=== PATIENT | male | born 1995 | race Caucasian/White ===

== ENCOUNTER 2021-10-12 10:46 | Emergency (ER) | payer BC, SELFPAY ==
[2021-10-12 11:03] VITALS: BP 118/76; PULSE 79; RESP 17; TEMP 37; O2SAT 100; BMI 21.9
--- NOTE | 2021-10-12 11:12 | ED_ITS ---
HPI - Abdominal Pain General Chief Complaint: Back Pain/Injury Stated Complaint: PAIN,H/O TAHMINA ESOPH PER EMS Time Seen by Provider: 10/12/21 11:02 Source: patient and EMS Mode of arrival: EMS Limitations: no limitations History of Present Illness HPI narrative: 26 y/o male with history of type 1 DM diagnosed in 2017, gastroparesis, neuropathy, Gates's esophagus who presents to the ED via EMS with reports of upper abdominal pain and back pain that started last night. He states the pain is similar to when he had a Gates's flare up in the past. He reports compliance with his famotadine as well as his insulin but admits to a crappy diet. He had pizza last night. He vomited once this morning, no blood. He denies diarrhea, fevers or chills. Denies history of pancreatitis in the past. He reports his last EGD was about 1.5 years ago. He is not on a PPI. MD elicited complaint: abdominal pain Pertinent past history: other (gastroparesis and Gates's esophagus ) Onset (ago): day(s) (1) Pain Consistency: constant Location: epigastric Severity: severe Pain scale (0-10): 8 Quality: sharp Radiation: back Migration to: no migration Exacerbating factors: nothing Relieving factors: medication Context: history of similar episodes Associated symptoms: nausea and vomiting Related Data Previous Rx's Medication Instructions Recorded pantoprazole 40 mg tablet,delayed 40 mg PO DAILY #14 tab 10/12/21 release (Protonix) Allergies Allergy/AdvReac Type Severity Reaction Status Date / Time haloperidol [From Haldol] Allergy Difficulty Verified 10/12/21 11:10 Swallowing Review of Systems Review of Systems Constitutional: No Fever, No Chills ENT/Mouth: No sore throat, No Rhinorrhea, No Swallowing Difficulty Cardiovascular: No Chest Pain, No SOB, No Orthopnea, No Edema Respiratory: No Cough, No Sputum, No Wheezing, No dyspnea Gastrointestinal: + Nausea, + Vomiting, No Diarrhea, + abdominal Pain, No Hematochezia, No Melena Genitourinary: No Dysuria, No Urinary Frequency, No Hematuria Musculoskeletal: + joint pain, No Myalgias Skin: No Skin Lesions, No rash Neuro: No Weakness, No Numbness, No Dizziness, No Headache Psych: + Anxiety/Panic, No Depression Heme/Lymph: No Bruising, No Lymphadenopathy Endocrine: No Polyuria, No Polydipsia [facility] Past Medical History Medical History (Updated 10/12/21 @ 13:39 by JORDAN Camp) Gates esophagus Diabetes mellitus type 1 Social History Social History Advance Directives: No Advance Directives Information Provided: No Physical Exam ED Vital Signs: Vital Signs - 24 hr 10/12/21 11:03 Temperature 98.6 F Pulse Rate 79 Respiratory Rate 17 Blood Pressure 118/76 Pulse Oximetry 100 BMI result Body Mass Index 21.9 Appearance: Alert. Oriented X3. Appears uncomfortable. Eyes: Pupils equal, round and reactive to light. ENT: Pharynx normal. Neck: Normal inspection. Neck supple. CVS: Normal heart rate and rhythm. Pulses normal. Respiratory: No respiratory distress. Breath sounds normal. Abdomen: Normal inspection, thin, soft. Tender upper abdomen throughout. no rebound or guarding. negative garcia's sign. normal +BS x4 Skin: Skin warm and dry. Normal skin color. Normal skin turgor. No rashes. Extremities: No lower extremity edema. Neuro: Oriented X 3. No motor deficit. No sensory deficit. Course Course Course Narrative: 26 y/o male with history of DM1, Gates's esophagus presents to the ER with upper abdominal pain and vomiting that started yesterday after eating pizza. Similar to his prior Gates's flares. Glucose 96 en route. Compliant with meds and insulin. Will check basic labs including lipase and LFTs, give IVF and GI cocktail. Will reassess. Reevaluation(s) Reevaluation #1: Labs unremarkable. Patient feels better after meds. He is now tolerating PO. He has a GI doctor in [place] where he lives and agrees to follow up and make dietary modifications. Stable for d/c home - will start on PPI. Patient agrees with plan. MDM - Abdominal Pain Lab Data Result diagrams: 10/12/21 11:17 10/12/21 11:57 Labs: Lab Results 10/12/21 10/12/21 Range/Units 11:17 11:57 WBC 6.9 (4.8-10.8) X10*3/uL RBC 4.41 L (4.60-5.80) X10*6/uL Hgb 11.1 L (14.0-18.0) g/dl Hct 34.8 L (42.0-52.0) % MCV 78.9 L (80.0-98.0) fL MCH 25.2 L (27.0-33.0) pg MCHC 31.9 (31.0-36.0) g/dl RDW 14.6 (11.0-16.0) % Plt Count 229 (160-400) X10*3/uL MPV 10.0 (9.4-12.4) fL Immature Gran % (Auto) 0.1 (0.0-0.4) % Neut % (Auto) 62.7 (45-73) % Lymph % (Auto) 27.5 (20-40) % [place] % (Auto) 6.6 (2-11) % Eos % (Auto) 2.2 (0-4) % Baso % (Auto) 0.9 (0-2) % Lymph # (Auto) 1.9 (1.2-4.9) X10*3/uL [place] # (Auto) 0.5 (0.1-1.2) X10*3/uL Eos # (Auto) 0.2 (0.0-0.4) X10*3/uL Baso # (Auto) 0.1 (0.0-0.2) X10*3/uL Abs Immat Gran (auto) 0.01 (0.00-0.03) X10*3/uL Absolute Neuts (auto) 4.3 (2.0-8.3) x10*3/uL Absolute Nucleated RBC 0.000 (0.0-0.012) X10*3/uL Nucleated RBC % (auto) 0.0 (0.0-0.2) /100WBC Sodium 135 (135-145) mmol/L Potassium 3.8 (3.3-5.1) mmol/L Chloride 104 (96-108) mmol/L Carbon Dioxide 21 L (22-29) mmol/L Anion Gap 14 (12-20) BUN 12 (9-16) mg/dL Creatinine 0.69 (0.5-1.4) mg/dL Estim Creat Clear Calc 146.9 Estimated GFR > 60 Random Glucose 162 H (60-115) mg/dL Calcium 8.8 (8.4-10.2) mg/dL Magnesium 1.6 (1.6-2.6) mg/dL Total Bilirubin 0.6 (0.0-1.0) mg/dL Direct Bilirubin 0.2 (0.0-0.5) mg/dL AST 15 (5-37) U/L ALT 16 (0-40) U/L Alkaline Phosphatase 67 (39-117) U/L Total Protein 5.8 L (6.5-8.0) g/dL Albumin 3.6 (3.5-5.0) g/dL Lipase 4 L (8-78) U/L Discharge Plan Discharge Clinical Impression: Gastritis, Gates's esophagus Patient Disposition: Home, Self-Care Instructions: Diet for Stomach Ulcers and Gastritis (ED), Gates Esophagus (ED) Additional Instructions: Follow up with your GI doctor Avoid spicy and acidic foods Start the prescribed medication to help decrease the acid in your stomach. If you develop new or worsening symptoms call 911 or come back to the ER for further evaluation. Prescriptions: New pantoprazole [Protonix] 40 mg tablet,delayed release (DR/EC) 40 mg PO DAILY Qty: 14 0RF
[2021-10-12] MEDS: Omeprazole 40 MG CAPSULE.DR PO (11:22)
[2021-10-12 11:23] LABS: MANUAL DIFF FLAG NO
[2021-10-12] MEDS: Morphine Sulfate 4 MG/ML CARTRIDGE IVPUSH (11:23)
[2021-10-12] MEDS: 0.9 % Sodium Chloride 1,000 ML 999 ML IVCONT (11:24)
[2021-10-12 11:26] LABS: Basophils Absolute Auto 0.1 X10*3/uL (0.0-0.2); Basophils Percent Auto 0.9 % (0-2); Eosinophils Absolute Auto 0.2 X10*3/uL (0.0-0.4); Eosinophils Percent Auto 2.2 % (0-4); Hematocrit 34.8 % (42.0-52.0); Hemoglobin 11.1 g/dl (14.0-18.0); Imm Gran Abs Auto 0.01 X10*3/uL (0.00-0.03); Imm Gran Pct Auto 0.1 % (0.0-0.4); Lymphocytes Absolute Auto 1.9 X10*3/uL (1.2-4.9); Lymphocytes Percent Auto 27.5 % (20-40); Mean Corpuscular HGB Conc 31.9 g/dl (31.0-36.0); Mean Corpuscular Hemoglobin 25.2 pg (27.0-33.0); Mean Corpuscular Volume 78.9 fL (80.0-98.0); Monocytes Absolute Auto 0.5 X10*3/uL (0.1-1.2); Monocytes Percent Auto 6.6 % (2-11); Neutrophils Absolute Auto 4.3 x10*3/uL (2.0-8.3); Neutrophils Percent Auto 62.7 % (45-73); Platelet Count 229 X10*3/uL (160-400); Red Blood Count 4.41 X10*6/uL (4.60-5.80); Red Cell Distribution Width 14.6 % (11.0-16.0); White Blood Count 6.9 X10*3/uL (4.8-10.8)
[2021-10-12] MEDS: Lidocaine HCl Viscous 2 % 15 ML SOLUTION MUCOUS MEM (11:29)
[2021-10-12] MEDS: Magnesium Hydrox/Alum Hydrox 30 ML ORAL.SUSP PO (11:29)
[2021-10-12] MEDS: PHENobarb/Hyoscy/Atropine/Scop 10 ML ELIXIR PO (11:29)
[2021-10-12 12:26] LABS: Alanine Aminotransferase 16 U/L (0-40); Albumin Level 3.6 g/dL (3.5-5.0); Alkaline Phosphatase 67 U/L (39-117); Anion Gap 14 (12-20); Aspartate Amino Transferase 15 U/L (5-37); Bilirubin Direct 0.2 mg/dL (0.0-0.5); Bilirubin Total 0.6 mg/dL (0.0-1.0); Blood Urea Nitrogen 12 mg/dL (9-16); Calcium 8.8 mg/dL (8.4-10.2); Carbon Dioxide 21 mmol/L (22-29); Chloride 104 mmol/L (96-108); Creatinine Clr Calc Pharmacy 146.9; Estimated Glomerular Filt Rate > 60; Glucose Random 162 mg/dL (60-115); Lipase 4 U/L (8-78); Magnesium 1.6 mg/dL (1.6-2.6); Potassium 3.8 mmol/L (3.3-5.1); Sodium 135 mmol/L (135-145); Total Protein 5.8 g/dL (6.5-8.0)
[2021-10-12] MEDS: Acetaminophen 325 MG TABLET 650 MG PO (13:55)
== END 2021-10-12 13:59 | disposition home or self-care (01) ==
PROVIDERS: Physician Assistant; Emergency Provider Emergency Medicine
DX: K29.70 Gastritis, unspecified, without bleeding (principal); K22.70 Barrett's esophagus without dysplasia; E10.9 Type 1 diabetes mellitus without complications; Z79.4 Long term (current) use of insulin
CPT/HCPCS: 36415; 80048; 80076; 83690; 83735; 85025; 96361; 96374; 99283; 99284; J2270

== ENCOUNTER 2021-10-12 19:42 | Emergency (ER) | payer MEDICAID, SELFPAY | END 2021-10-12 21:37 | disposition left against medical advice (07) | LOC: HO.ED 21:32 | PROVIDERS: Emergency Provider Emergency Medicine | DX: R10.9 Unspecified abdominal pain (principal) ==

== ENCOUNTER 2022-09-29 07:28 | Emergency (ER) | payer BC, SELFPAY ==
--- NOTE | ~2022-09-29 | XR_ITS ---
EXAMINATION: XR CHEST CLINICAL INFORMATION: Acute lower chest pain. COMPARISON: 07/23/2017 chest radiographs. TECHNIQUE: Frontal view of the chest was obtained. FINDINGS: No significant abnormality is noted involving the heart, lungs, mediastinum, bony thorax or soft tissues. XR/XR chest 1V IMPRESSION: No acute cardiopulmonary process.
--- NOTE | 2022-09-29 07:35 | ED_ITS ---
HPI - General Adult General Chief complaint: Nausea/Vomiting/Diarrhea Stated complaint: N,V HYPOGLYCEMIC Time Seen by Provider: 09/29/22 07:29 Source: patient Mode of arrival: EMS Limitations: no limitations History of Present Illness HPI narrative: 27-year-old male with history of chronic back pain, Gates's esophagus presents with intractable nausea and vomiting starting today. Patient describes symptoms as severe in nature. There is no clear relieving or exacerbating features. The vomitus has been nonbloody, nonbilious in nature. Denies any fevers or chills. Symptoms are also associated with severe lower thoracic back pain radiating around to his chest which is old except worsening usual. There has been no new recent falls. Denies that the pain radiates in any way. Symptoms are worse with movement and palpation. Patient also complains of some upper abdominal pain that is associated with nausea and vomiting. The pain is aching and burning in nature. The pain does not radiate. Not associated with melanotic stools. Patient denies intravenous drug abuse although he does use marijuana. Denies alcohol abuse since the age of 23. Patient denies large doses of NSAIDs. Related Data Previous Rx's Medication Instructions Recorded pantoprazole 40 mg tablet,delayed 40 mg PO DAILY #14 tabs 10/12/21 release (Protonix) Allergies Allergy/AdvReac Type Severity Reaction Status Date / Time diphenhydramine Allergy Anaphylaxis Verified 09/29/22 08:56 [From Benadryl] haloperidol [From Haldol] Allergy Difficulty Verified 10/12/21 11:10 Swallowing Review of Systems Review of Systems: CONSTITUTIONAL: Denies weight loss, fever and chills. HEENT: Denies changes in vision and hearing. RESPIRATORY: Denies SOB and cough. CV: Denies palpitations no CP. GI: + abdominal pain, nausea, vomiting no diarrhea. : Denies dysuria and urinary frequency. MSK: Denies myalgia and joint pain. Positive back pain SKIN: Denies rash and pruritus. NEUROLOGICAL: Denies headache and syncope. PSYCHIATRIC: Denies recent changes in mood. Denies anxiety and depression. All other ROS are negative unless in HPI PMFSH Past Medical History Medical History Gates esophagus Diabetes mellitus type 1 Social History Social History Alcohol intake: current Alcohol intake frequency: holidays/special occasions o nly Smoked in Last 30 Days: Yes Use of substances other than those prescribed or required for medical reasons: Yes Substance Use Type: Marijuana Substance Use Frequency: Daily Last Used Substance: Just Prior to Admission Advance Directives: No Advance Directives Information Provided: No Physical Exam ED Vital Signs: Vital Signs - 24 hr 09/29/22 07:38 09/29/22 07:38 09/29/22 10:14 Temperature 97.8 F 97.8 F 97.6 F Pulse Rate 95 95 84 Respiratory Rate 28 H 28 H 16 Blood Pressure 129/70 129/70 112/73 Pulse Oximetry 100 100 100 Oxygen Delivery Method Room Air Room Air Room Air BMI result Body Mass Index 22.7 GEN: Well developed, + acute distress,+ alert, oriented HEENT: Normocephalic, atraumatic, normal external ears, nose appears normal, no oropharyngeal edema or exudates Eyes: Normal to appearance Neck: Supple, no lymphadenopathy Respiratory: Talks in complete sentences, no respiratory distress, clear to auscultation bilaterally Cardiovascular: Regular rate and rhythm, no murmurs rubs or gallops Abdomen: Scaphoid, nontender, nondistended, no guarding, no rebound Back: No CVA tenderness, positive thoracolumbar paraspinous tenderness Extremities: No clubbing cyanosis or edema Neurologic: No focal neurologic deficits, cranial nerves 2-12 intact, strength is 5/5 bilaterally, gait normal Skin: No rash Course Course Course Narrative: 27-year-old male presents with acute exacerbation of back pain abdominal pain associated with nausea vomiting. On arrival, patient was brought in by EMS. He was noted to be hypoglycemic. Patient received antiemetics, analgesics, dextrose. Will obtain routine laboratory analysis. Will re-evaluate patient. Reevaluation(s) Reevaluation #1: Patient's blood sugar is 40. Will give patient dextrose 50 re-evaluate. Time: 07:49 Reevaluation #2: EKG is abnormal. Patient does not have any significant chest pain. He does have some lower abdominal pain. There is some ST depressions and ST elevations in leads. Not sure that this represents cardiac etiology. I have sent the EKG to the sports management internship to get some further advice. Reevaluation #3: Patient is doing well this time. Tolerating oral intake. Blood sugar is significantly elevated at this time after D50. Time: 08:44 Additional Reevaluation(s): Feeling much better at this time. Awaiting the rest of his lab work. Then will re-evaluate. Tolerating oral intake without difficulties Reevaluation(s) Time: 07:49 Time: 08:44 Additional Reevaluation(s): Patient is currently feeling much better. He would like to be discharged at this time. Lactic acid was 2.1 which is just above normal. He has received an IV bolus. Tolerating oral intake. At this point I do not see reason to be check his lactic acid level. Will return for worsening concerning symptoms. Vital Signs Vital signs: Vital Signs Temperature 97.8 F 09/29/22 07:38 Pulse Rate 95 09/29/22 07:38 Respiratory Rate 28 H 09/29/22 07:38 Blood Pressure 129/70 09/29/22 07:38 Pulse Oximetry 100 09/29/22 07:38 Oxygen Delivery Method 09/29/22 07:38 Temperature 97.6 F 09/29/22 10:14 Pulse Rate 84 09/29/22 10:14 Respiratory Rate 16 09/29/22 10:14 Blood Pressure 112/73 09/29/22 10:14 Pulse Oximetry 100 09/29/22 10:14 Oxygen Delivery Method 09/29/22 10:14 Medications Administered Discontinued Medications Generic Name Dose Route Start Last Admin Trade Name Freq PRN Reason Stop Dose Admin Dextrose 25 gm 09/29/22 07:48 09/29/22 08:00 Dextrose 50 % 25 Gm/50 Ml Syringe IVPUSH 09/29/22 07:49 25 gm ONCE ONE Administration Sodium Chloride 500 mls @ 500 mls/hr 09/29/22 07:45 09/29/22 09:48 Ns IV 09/29/22 08:44 Infused .Q1H JELENA Infusion Ketorolac Tromethamine 15 mg 09/29/22 07:34 09/29/22 07:48 Ketorolac Tromethamine 15 Mg/Ml Vial IVPUSH 09/29/22 07:35 15 mg ONCE ONE Administration Omeprazole 40 mg 09/29/22 07:34 09/29/22 08:01 Omeprazole 40 Mg Capsule.Dr MORROW 09/29/22 07:35 40 mg ONCE ONE Administration Ondansetron HCl 4 mg 09/29/22 07:34 09/29/22 07:49 Ondansetron Hcl 4 Mg/2 Ml Vial IVPUSH 09/29/22 07:35 4 mg ONCE ONE Administration Medical Decision Making Medical Decision Making [facility] Narrative: 27-year-old male presents with back pain, abdominal pain, nausea, vomiting, hyperglycemia. Patient is unlikely to be in DKA given the low blood sugar. There have been no new falls to suggest traumatic back injury. He had no midline tenderness or deformity to suggest new fracture. Abdomen although mildly tender had no rebound or guarding. There is no hepatosplenomegaly. Differential Diagnosis Differential Diagnoses: The differential diagnosis associated with the presentation includes (Back pain, abdominal pain, hyperglycemia, less likely kidney stone, unlikely to be aneurysm, gastroenteritis, IBS, IBD) Nausea, vomiting, chronic back pain, diabetes Admission/Observation Consideration of admission/observation: Escalation of care including admission/observation considered Lab Data [facility] Lab Attestation statement: I reviewed the patient's lab results. 09/29/22 09:43 09/29/22 09:43 Labs: Lab Results 09/29/22 09/29/22 09/29/22 Range/Units 07:48 08:15 08:26 WBC (4.8-10.8) X10*3/uL RBC (4.60-5.80) X10*6/uL Hgb (14.0-18.0) g/dl Hct (42.0-52.0) % MCV (80.0-98.0) fL MCH (27.0-33.0) pg MCHC (31.0-36.0) g/dl RDW (11.0-16.0) % Plt Count (160-400) X10*3/uL MPV (9.4-12.4) fL Immature Gran % (Auto) (0.0-0.4) % Neut % (Auto) (45-73) % Lymph % (Auto) (20-40) % [place] % (Auto) (2-11) % Eos % (Auto) (0-4) % Baso % (Auto) (0-2) % Lymph # (Auto) (1.2-4.9) X10*3/uL [place] # (Auto) (0.1-1.2) X10*3/uL Eos # (Auto) (0.0-0.4) X10*3/uL Baso # (Auto) (0.0-0.2) X10*3/uL Abs Immat Gran (auto) (0.00-0.03) X10*3/uL Absolute Neuts (auto) (2.0-8.3) x10*3/uL Absolute Nucleated RBC (0.0-0.012) X10*3/uL Nucleated RBC % (auto) (0.0-0.2) /100WBC Sodium (135-145) mmol/L Potassium (3.3-5.1) mmol/L Chloride (96-108) mmol/L Carbon Dioxide (22-29) mmol/L Anion Gap (12-20) BUN (9-16) mg/dL Creatinine (0.5-1.4) mg/dL Estim Creat Clear Calc Estimated GFR POC Glucose 43 L* 280 H (60-115) mg/dL Random Glucose (60-115) mg/dL Lactic Acid (0.5-2.0) mmol/L Calcium (8.4-10.2) mg/dL Total Bilirubin (0.0-1.0) mg/dL Direct Bilirubin (0.0-0.5) mg/dL AST (5-37) U/L ALT (0-40) U/L Alkaline Phosphatase (39-117) U/L Total Protein (6.5-8.0) g/dL Albumin (3.5-5.0) g/dL Lipase (8-78) U/L COVID-19 ([facility]) Negative (Negative) COVID-19 Clin Com See Note 09/29/22 09/29/22 09/29/22 Range/Units 09:43 09:43 09:43 WBC 9.1 (4.8-10.8) X10*3/uL RBC 4.98 (4.60-5.80) X10*6/uL Hgb 12.2 L (14.0-18.0) g/dl Hct 37.7 L (42.0-52.0) % MCV 75.7 L (80.0-98.0) fL MCH 24.5 L (27.0-33.0) pg MCHC 32.4 (31.0-36.0) g/dl RDW 15.2 (11.0-16.0) % Plt Count 256 (160-400) X10*3/uL MPV 10.0 (9.4-12.4) fL Immature Gran % (Auto) 0.3 (0.0-0.4) % Neut % (Auto) 80.4 H (45-73) % Lymph % (Auto) 12.6 L (20-40) % [place] % (Auto) 5.5 (2-11) % Eos % (Auto) 0.6 (0-4) % Baso % (Auto) 0.6 (0-2) % Lymph # (Auto) 1.1 L (1.2-4.9) X10*3/uL [place] # (Auto) 0.5 (0.1-1.2) X10*3/uL Eos # (Auto) 0.1 (0.0-0.4) X10*3/uL Baso # (Auto) 0.1 (0.0-0.2) X10*3/uL Abs Immat Gran (auto) 0.03 (0.00-0.03) X10*3/uL Absolute Neuts (auto) 7.3 (2.0-8.3) x10*3/uL Absolute Nucleated RBC 0.000 (0.0-0.012) X10*3/uL Nucleated RBC % (auto) 0.0 (0.0-0.2) /100WBC Sodium 133 L (135-145) mmol/L Potassium 4.1 (3.3-5.1) mmol/L Chloride 102 (96-108) mmol/L Carbon Dioxide 22 (22-29) mmol/L Anion Gap 13 (12-20) BUN 20 H (9-16) mg/dL Creatinine 0.82 (0.5-1.4) mg/dL Estim Creat Clear Calc 142.7 Estimated GFR > 60 POC Glucose (60-115) mg/dL Random Glucose 279 H (60-115) mg/dL Lactic Acid 2.1 H* (0.5-2.0) mmol/L Calcium 9.7 D (8.4-10.2) mg/dL Total Bilirubin 0.7 (0.0-1.0) mg/dL Direct Bilirubin 0.2 (0.0-0.5) mg/dL AST 16 (5-37) U/L ALT 20 (0-40) U/L Alkaline Phosphatase 68 (39-117) U/L Total Protein 6.8 (6.5-8.0) g/dL Albumin 4.1 (3.5-5.0) g/dL Lipase 5 L (8-78) U/L COVID-19 ([facility]) (Negative) COVID-19 Clin Com 09/29/22 Range/Units 09:53 WBC (4.8-10.8) X10*3/uL RBC (4.60-5.80) X10*6/uL Hgb (14.0-18.0) g/dl Hct (42.0-52.0) % MCV (80.0-98.0) fL MCH (27.0-33.0) pg MCHC (31.0-36.0) g/dl RDW (11.0-16.0) % Plt Count (160-400) X10*3/uL MPV (9.4-12.4) fL Immature Gran % (Auto) (0.0-0.4) % Neut % (Auto) (45-73) % Lymph % (Auto) (20-40) % [place] % (Auto) (2-11) % Eos % (Auto) (0-4) % Baso % (Auto) (0-2) % Lymph # (Auto) (1.2-4.9) X10*3/uL [place] # (Auto) (0.1-1.2) X10*3/uL Eos # (Auto) (0.0-0.4) X10*3/uL Baso # (Auto) (0.0-0.2) X10*3/uL Abs Immat Gran (auto) (0.00-0.03) X10*3/uL Absolute Neuts (auto) (2.0-8.3) x10*3/uL Absolute Nucleated RBC (0.0-0.012) X10*3/uL Nucleated RBC % (auto) (0.0-0.2) /100WBC Sodium (135-145) mmol/L Potassium (3.3-5.1) mmol/L Chloride (96-108) mmol/L Carbon Dioxide (22-29) mmol/L Anion Gap (12-20) BUN (9-16) mg/dL Creatinine (0.5-1.4) mg/dL Estim Creat Clear Calc Estimated GFR POC Glucose 251 H (60-115) mg/dL Random Glucose (60-115) mg/dL Lactic Acid (0.5-2.0) mmol/L Calcium (8.4-10.2) mg/dL Total Bilirubin (0.0-1.0) mg/dL Direct Bilirubin (0.0-0.5) mg/dL AST (5-37) U/L ALT (0-40) U/L Alkaline Phosphatase (39-117) U/L Total Protein (6.5-8.0) g/dL Albumin (3.5-5.0) g/dL Lipase (8-78) U/L COVID-19 ([facility]) (Negative) COVID-19 Clin Com Independent Interpretation I performed an independent interpretation of an: EKG (Normal sinus rhythm heart rate 86, sinus arrhythmia, incomplete right bundle-branch block, likely early repolarization noted in V2 and V3 however there are some ST depressions in V2 and 3. I have no comparison) and Plain X-Ray (No acute cardiopulmonary disease seen on chest x-ray) Radiology Impression Discussion of test interpretation with radiology: I have reviewed the radiologist's reading. (IMPRESSION: No acute cardiopulmonary process. Dictated By:Roberto Martinez MDSigned By:<Electronically signed by Roberto Martinez MD in [place]>09/29/22 0839, independently reviewed chest x-ray, see my interpretation, agree with radiologist) Independent Historian Clinical information obtained from an independent historian. History obtained from or confirmed by: EMS Prescription Management I considered prescription management with: Pain Medication Chronic Conditions Patient?s care impacted by: Diabetes Discharge Plan Discharge Clinical Impression: Nausea & vomiting, Chronic back pain Patient Disposition: Home, Self-Care Instructions: Chronic Back Pain (DC), Acute Nausea and Vomiting (ED) Additional Instructions: Your seen today for nausea vomiting as well as acute exacerbation of chronic back pain. Her lab work did indicate that your blood sugars were low which improved with a bolus of dextrose and food. 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 Make sure you keep hydrated. Should her symptoms worsen or any other concerning symptoms develop, return to the emergency department for re-evaluation. Prescriptions: No Action pantoprazole [Protonix] 40 mg tablet,delayed release (DR/EC) 40 mg PO DAILY Qty: 14 0RF Stand Alone Forms: Work/School Release
[2022-09-29 07:38] VITALS: BP 129/70; BP 135/92; PULSE 105; PULSE 95; RESP 28; TEMP 36.6; O2SAT 100; BMI 22.7
--- NOTE | 2022-09-29 07:43 | ECG_ITS ---
Test Reason : n/v Blood Pressure : / mmHG Vent. Rate : 086 BPM Atrial Rate : 086 BPM P-R Int : 134 ms QRS Dur : 100 ms QT Int : 392 ms P-R-T Axes : 080 -24 045 degrees QTc Int : 469 ms Normal sinus rhythm Incomplete right bundle branch block Nonspecific ST abnormality , ? related to electrolyte issues Abnormal ECG When compared with ECG of 23-JUL-2017 13:10, Incomplete right bundle branch block is now Present Referred By: Oscar Perez Electronically Signed By:ESTRELLA ELIAS MD
[2022-09-29] MEDS: Ketorolac Tromethamine 15 MG/ML VIAL IVPUSH (07:48)
[2022-09-29] MEDS: ondansetron HCL 4 MG/2 ML VIAL IVPUSH (07:49)
[2022-09-29] MEDS: Dextrose 50 % 25 GM/50 ML SYRINGE IVPUSH (08:00)
[2022-09-29] MEDS: 0.9 % Sodium Chloride 500 ML IV (08:00)
[2022-09-29] MEDS: Omeprazole 40 MG CAPSULE.DR PO (08:01)
[2022-09-29 08:30] LABS: Glucose, Whole Blood 43 mg/dL (60-115)
[2022-09-29 08:31] LABS: Glucose, Whole Blood 280 mg/dL (60-115)
[2022-09-29 08:54] LABS: COVID-19 Test Negative (Negative); IDNOW Serial# BCCEAD1C
[2022-09-29 09:47] LABS: MANUAL DIFF FLAG NO
[2022-09-29 09:51] LABS: Basophils Absolute Auto 0.1 X10*3/uL (0.0-0.2); Basophils Percent Auto 0.6 % (0-2); Eosinophils Absolute Auto 0.1 X10*3/uL (0.0-0.4); Eosinophils Percent Auto 0.6 % (0-4); Hematocrit 37.7 % (42.0-52.0); Hemoglobin 12.2 g/dl (14.0-18.0); Imm Gran Abs Auto 0.03 X10*3/uL (0.00-0.03); Imm Gran Pct Auto 0.3 % (0.0-0.4); Lymphocytes Absolute Auto 1.1 X10*3/uL (1.2-4.9); Lymphocytes Percent Auto 12.6 % (20-40); Mean Corpuscular HGB Conc 32.4 g/dl (31.0-36.0); Mean Corpuscular Hemoglobin 24.5 pg (27.0-33.0); Mean Corpuscular Volume 75.7 fL (80.0-98.0); Monocytes Absolute Auto 0.5 X10*3/uL (0.1-1.2); Monocytes Percent Auto 5.5 % (2-11); Neutrophils Absolute Auto 7.3 x10*3/uL (2.0-8.3); Neutrophils Percent Auto 80.4 % (45-73); Platelet Count 256 X10*3/uL (160-400); Red Blood Count 4.98 X10*6/uL (4.60-5.80); Red Cell Distribution Width 15.2 % (11.0-16.0); White Blood Count 9.1 X10*3/uL (4.8-10.8)
--- NOTE | 2022-09-29 09:51 | PC.NURSE ---
pt reports feeling much better, no pain or nausea noted at this time, pt tolerating po without issue, pt asking if he can go home, will consult provider about discharge.
[2022-09-29 09:57] LABS: Glucose, Whole Blood 251 mg/dL (60-115)
[2022-09-29 10:06] LABS: Alanine Aminotransferase 20 U/L (0-40); Albumin Level 4.1 g/dL (3.5-5.0); Alkaline Phosphatase 68 U/L (39-117); Anion Gap 13 (12-20); Aspartate Amino Transferase 16 U/L (5-37); Bilirubin Direct 0.2 mg/dL (0.0-0.5); Bilirubin Total 0.7 mg/dL (0.0-1.0); Blood Urea Nitrogen 20 mg/dL (9-16); Calcium 9.7 mg/dL (8.4-10.2); Carbon Dioxide 22 mmol/L (22-29); Chloride 102 mmol/L (96-108); Creatinine Clr Calc Pharmacy 142.7; Estimated Glomerular Filt Rate > 60; Glucose Random 279 mg/dL (60-115); Lipase 5 U/L (8-78); Potassium 4.1 mmol/L (3.3-5.1); Sodium 133 mmol/L (135-145); Total Protein 6.8 g/dL (6.5-8.0)
[2022-09-29 10:14] VITALS: BP 112/73; PULSE 84; RESP 16; TEMP 36.4; O2SAT 100
[2022-09-29 10:19] LABS: Lactic Acid 2.1 mmol/L (0.5-2.0)
[2022-09-29 11:30] LABS: Appearance Urine Clear; Color Urine Yellow; Glucose Urine UA >=1000 mg/dL (Negative); Leukocyte Esterase Urine Negative (Negative); Nitrite Urine Negative (Negative); Specific Gravity - Urine >= 1.030 (1.005-1.025); UMIC TRIGGER UACC YES; Urine Blood Negative (Negative); Urine Ketones Trace mg/dL (Negative); Urine Protein Trace mg/dL (Neg-Trace)
[2022-09-29 11:46] LABS: Reflex Lactate? Lactic Acid Added
[2022-09-29 11:53] LABS: Bacteria Urine None Seen (None Seen); Hyaline Casts Urine 0-2 /LPF (0-2); RBC Urine 0-2 /HPF (0-2); Squamous Epithelial Cell Urine 0-2 /HPF (0-2); WBC Urine 0-5 /HPF (0-5)
[2022-09-29 12:01] LABS: Troponin-I High Sensitivity < 3.5 ng/L (<3.5-35.0)
== END 2022-09-29 12:41 | disposition home or self-care (01) ==
PROVIDERS: Emergency Provider Emergency Medicine
DX: R11.2 Nausea with vomiting, unspecified (principal); G89.29 Other chronic pain; M54.6 Pain in thoracic spine; Z20.822 Contact with and (suspected) exposure to COVID-19; F12.90 Cannabis use, unspecified, uncomplicated; E10.649 Type 1 diabetes mellitus with hypoglycemia without coma; Z79.899 Other long term (current) drug therapy
CPT/HCPCS: 36415; 71045; 80048; 80076; 81001; 82947; 83605; 83690; 84484; 85025; 87635; 93005; 96361; 96374; 96375; 99284; 99285; J1885; J2405

== ENCOUNTER 2022-10-02 20:55 | Emergency (ER) | payer BC, SELFPAY ==
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
[2022-10-02 21:11] VITALS: BP 126/79; PULSE 98; RESP 16; TEMP 36.6; O2SAT 100; BMI 21.6
[2022-10-02] MEDS: Ibuprofen 600 MG TABLET PO (22:01)
[2022-10-02] MEDS: oxyCODONE HCl Immed Release 5 MG TABLET PO (22:23)
--- NOTE | 2022-10-03 00:12 | ED_ITS ---
HPI - General Adult General Chief complaint: Dental/Oral Stated complaint: Dental pain Time Seen by Provider: 10/02/22 21:57 Source: patient Mode of arrival: ambulatory Limitations: no limitations History of Present Illness HPI narrative: 27-year-old male presents to ED for left-sided facial pain after being hit in the face by accident with dumbbell weights. Patient denies any other trauma, falling to the ground, hitting head on the ground, or loss of consciousness. Related Data Previous Rx's Medication Instructions Recorded pantoprazole 40 mg tablet,delayed 40 mg PO DAILY #14 tabs 10/12/21 release (Protonix) naproxen 500 mg tablet 500 mg PO BID PRN pain 7 days #14 10/03/22 tabs Allergies Allergy/AdvReac Type Severity Reaction Status Date / Time diphenhydramine Allergy Anaphylaxis Verified 09/29/22 08:56 [From Benadryl] haloperidol [From Haldol] Allergy Difficulty Verified 10/12/21 11:10 Swallowing Review of Systems Review of Systems: left Facial pain Yes all other systems are reviewed and are negative [facility] Past Medical History Medical History Gates esophagus Diabetes mellitus type 1 Social History Social History Alcohol intake: current Alcohol intake frequency: does not drink Use of substances other than those prescribed or required for medical reasons: No Substance Use Type: Marijuana Advance Directives: No Advance Directives Information Provided: Yes Physical Exam ED Vital Signs: Vital Signs - 24 hr 10/02/22 21:11 10/03/22 00:45 Temperature 97.9 F Pulse Rate 98 85 Respiratory Rate 16 16 Blood Pressure 126/79 124/79 Pulse Oximetry 100 98 Oxygen Delivery Method Room Air Room Air BMI result Body Mass Index 21.6 Const General: cooperative, healthy appearing, comfortable, no acute distress, well developed, alert and awake Orientation/consciousness: oriented to person, oriented to place, oriented to time and patient oriented x3 HENMT Head: Yes normal to inspection, Yes No palpable skull fracture present, Yes normocephalic and Yes atraumatic Head images: 1. positive for tenderness on palpation. Negative for ecchymosis crepitus or obvious deformity. 2. positive for tenderness on palpation. Negative for ecchymosis crepitus or obvious deformity. Teeth image: 1. Slightly cracked. Tooth in place. Throat: Yes posterior oropharynx normal, Yes tonsils normal and Yes uvula midline Eyes Other: Patient has complete range of motion of the eye muscles in both eyes. Negative for signs of entrapment of eye muscle nerves. General: appearance normal, both eyes and all related structures Neck Neck: Yes normal visual inspection, Yes full ROM, Yes no lymphadenopathy, Yes no meningeal signs, Yes trachea midline, Yes supple, No anterior neck swelling and No tender Chest Chest palpation & inspection: normal inspection of the chest and normal palpation of entire chest wall Resp Effort & Inspection: normal respiratory effort and able to speak in complete sentences Auscultation: clear to auscultation bilaterally Cardio Jugular venous distension: no JVD Heart sounds: S1 normal heart sound present and S2 normal heart sound present GI Inspection: Yes normal to inspection and No abdominal wall ecchymosis Palpation (GI): Soft to palpation, not firm, nontender, no guarding and not rigid General: No CVA tenderness and Yes no CVA tenderness Back/Spine/Pelvis Back: no CVA tenderness, No CVA tenderness and No back tenderness Skin General skin exam: no rashes or lesions noted and elasticity normal Neuro General: oriented to person, oriented to place, oriented to time, patient oriented x3, gait normal, tone normal, moves all extremities, Normal light touch and pain sensation, no meningeal signs, no focal motor deficits, CN's II-XI intact bilaterally and normal sensation to monofilament Extrem General: Yes normal to inspection, Yes full ROM and Yes capillary refill normal Psych Appearance: grossly normal, well kempt and not disheveled Course Course Course Narrative: 27-year-old with facial trauma will be sent for imaging. Reevaluation(s) Reevaluation #1: Patient's CT head CT cervical spine CT all came back normal. Patient's pain improved significantly with Motrin and oxycodone Time: 00:19 Medications Administered Discontinued Medications Generic Name Dose Route Start Last Admin Trade Name Freq PRN Reason Stop Dose Admin Ibuprofen 600 mg 10/02/22 21:56 10/02/22 22:01 Ibuprofen 600 Mg Tablet PO 10/02/22 21:57 600 mg ONCE ONE Administration Oxycodone HCl 5 mg 10/02/22 22:17 10/02/22 22:23 Oxycodone Hcl Immed Release 5 Mg Tablet PO 10/02/22 22:18 5 mg ONCE ONE Administration Medical Decision Making Medical Decision Making MDM Narrative: 27-year-old male with right facial trauma from weights. Differential Diagnosis Differential Diagnoses: The differential diagnosis associated with the presentation includes ( Facial fracture. Brain bleed. Cervical spine fracture.) Independent Interpretation I performed an independent interpretation of an: CT Scan Radiology Impression Discussion of test interpretation with radiology: I have reviewed the radiologist's reading. Prescription Management I considered prescription management with: Pain Medication Discharge Plan Discharge Clinical Impression: Cracked tooth, Contusion of face Patient Disposition: Home, Self-Care Instructions: Toothache (ED), Facial Contusion (ED) Additional Instructions: His CT scan came back negative for any fractures of the face brain bleed, neck fracture. Please follow-up with dentist for this slight cracked tooth. Also follow up with PCP Return to the ED for any headache, dizziness, nausea, vomiting, or any other concerning symptoms. Prescriptions: New naproxen 500 mg tablet 500 mg PO BID PRN (Reason: pain) 7 Days Qty: 14 0RF No Action pantoprazole [Protonix] 40 mg tablet,delayed release (DR/EC) 40 mg PO DAILY Qty: 14 0RF Stand Alone Forms: Work/School Release Interventions: ED Discharge Assessment Last Done: 10/03/22 00:51 Discharge Date/Time: 10/03/22 00:51 Print Language: [place]
[2022-10-03 00:45] VITALS: BP 124/79; PULSE 85; RESP 16; O2SAT 98
--- NOTE | 2022-10-03 00:49 | PC.NURSE ---
Pt a&o, no sob or chest pain. pt requesting pain medication at discharge, per provider no new orders, However, prescription for pain was sent to pharmacy. Pt unhappy with plan of care. Charge Nurse Fabiola tolbert.
== END 2022-10-03 00:51 | disposition home or self-care (01) ==
PROVIDERS: Emergency Provider Emergency Medicine
DX: S00.83XA Contusion of other part of head, initial encounter (principal); K03.81 Cracked tooth; M54.2 Cervicalgia; R51.9 Headache, unspecified; Y29.XXXA Contact with blunt object, undetermined intent, initial encounter; Y93.9 Activity, unspecified; Y92.9 Unspecified place or not applicable; Y99.9 Unspecified external cause status
CPT/HCPCS: 70450; 70486; 72125; 99284

== ENCOUNTER 2022-10-11 04:11 | Emergency (ER) | payer BC, SELFPAY ==
[2022-10-11 04:13] VITALS: BP 162/122; PULSE 99; O2SAT 99
[2022-10-11 04:24] LABS: Glucose, Whole Blood 162 mg/dL (60-115)
[2022-10-11 04:48] VITALS: BP 162/122; PULSE 991; O2SAT 99; BMI 24.3
[2022-10-11 05:01] VITALS: BP 99/61; PULSE 84; RESP 18; TEMP 36.8; O2SAT 98
--- NOTE | 2022-10-11 05:04 | ED.ABDPAIN ---
HPI - Abdominal Pain General Chief Complaint: Abdominal Pain Stated Complaint: abd pain Time Seen by Provider: 10/11/22 05:01 Source: patient Mode of arrival: ambulatory Limitations: no limitations History of Present Illness HPI narrative: Patient diabetic on insulin blood sugar well controlled yesterday woke up with vomiting and right back pain no fever no chills no abdominal patient checked her blood sugar was more than 400 when EMS checked it was 264. Patient denies any diarrhea no fever or chills pain in the right back started after vomiting Related Data Previous Rx's Medication Instructions Recorded pantoprazole 40 mg tablet,delayed 40 mg PO DAILY #14 tabs 10/12/21 release (Protonix) naproxen 500 mg tablet 500 mg PO BID PRN pain 7 days #14 10/03/22 tabs ondansetron 4 mg disintegrating 4 mg PO Q6-8H PRN nausea and 10/11/22 tablet vomiting #10 tabs Allergies Allergy/AdvReac Type Severity Reaction Status Date / Time diphenhydramine Allergy Anaphylaxis Verified 09/29/22 08:56 [From Benadryl] haloperidol [From Haldol] Allergy Difficulty Verified 10/12/21 11:10 Swallowing Review of Systems Review of Systems Yes all other systems are reviewed and are negative [facility] Past Medical History Medical History Gates esophagus Diabetes mellitus type 1 Social History Social History Alcohol intake: current Alcohol intake frequency: does not drink Substance Use Type: Marijuana Advance Directives: No Advance Directives Information Provided: Yes Physical Exam ED Vital Signs: Vital Signs - 24 hr 10/11/22 05:01 Temperature 98.2 F Pulse Rate 84 Respiratory Rate 18 Blood Pressure 99/61 Pulse Oximetry 98 Oxygen Delivery Method Room Air BMI result Body Mass Index 24.3 Appearance: Alert. Oriented X3. No acute distress. Eyes no pallor or icterus ENT: Pharynx normal. Oral Mucosa moist Neck: Normal inspection. Neck supple. CVS: Normal heart rate and rhythm. Pulses normal. Respiratory: No respiratory distress. Equal air entry bilateral, no wheezing/rales/rhonchi Abdomen: Soft and nontender. Bowel sounds are present, no mass palpable, no CVA tenderness back: Diffuse lower back tenderness Skin: Skin warm and dry. Normal skin color. Normal skin turgor. Extremities: No lower extremity edema. No calf tenderness Neuro: Oriented X 3. No motor deficit. Medical Decision Making Medical Decision Making [facility] Narrative: Patient workup shows negative for DKA likely viral gastroenteritis as a cause or muscular pain discharge patient so patient feeling much better now taking p.o. fluids POC 162 Differential Diagnosis Differential Diagnoses: The differential diagnosis associated with the presentation includes DKA/viral gastroenteritis/muscular pain/kidney stone Lab Data [facility] Lab Attestation statement: I reviewed the patient's lab results. 10/11/22 05:27 10/11/22 05:27 Labs: Lab Results 10/11/22 10/11/22 10/11/22 Range/Units 04:21 05:27 05:27 WBC 6.8 (4.8-10.8) X10*3/uL RBC 5.17 (4.60-5.80) X10*6/uL Hgb 12.7 L (14.0-18.0) g/dl Hct 39.4 L (42.0-52.0) % MCV 76.2 L (80.0-98.0) fL MCH 24.6 L (27.0-33.0) pg MCHC 32.2 (31.0-36.0) g/dl RDW 15.1 (11.0-16.0) % Plt Count 263 (160-400) X10*3/uL MPV 10.1 (9.4-12.4) fL Immature Gran % (Auto) 0.3 (0.0-0.4) % Neut % (Auto) 60.4 (45-73) % Lymph % (Auto) 28.8 (20-40) % [place] % (Auto) 7.0 (2-11) % Eos % (Auto) 2.6 (0-4) % Baso % (Auto) 0.9 (0-2) % Lymph # (Auto) 2.0 (1.2-4.9) X10*3/uL [place] # (Auto) 0.5 (0.1-1.2) X10*3/uL Eos # (Auto) 0.2 (0.0-0.4) X10*3/uL Baso # (Auto) 0.1 (0.0-0.2) X10*3/uL Abs Immat Gran (auto) 0.02 (0.00-0.03) X10*3/uL Absolute Neuts (auto) 4.1 (2.0-8.3) x10*3/uL Absolute Nucleated RBC 0.000 (0.0-0.012) X10*3/uL Nucleated RBC % (auto) 0.0 (0.0-0.2) /100WBC VBG pH (7.32-7.43) VBG pCO2 mmHg VBG pO2 mmHg VBG HCO3 (22-26) mmol/L VBG O2 Saturation % VBG Base Excess mmol/L Sodium 142 (135-145) mmol/L Potassium 3.7 (3.3-5.1) mmol/L Chloride 107 (96-108) mmol/L Carbon Dioxide 27 (22-29) mmol/L Anion Gap 12 (12-20) BUN 15 (9-16) mg/dL Creatinine 0.71 (0.5-1.4) mg/dL Estim Creat Clear Calc 162.7 Estimated GFR > 60 POC Glucose 162 H (60-115) mg/dL Random Glucose 87 (60-115) mg/dL Calcium 9.7 (8.4-10.2) mg/dL Total Bilirubin 0.2 (0.0-1.0) mg/dL AST 16 (5-37) U/L ALT 19 (0-40) U/L Alkaline Phosphatase 63 (39-117) U/L Total Protein 6.8 (6.5-8.0) g/dL Albumin 4.0 (3.5-5.0) g/dL Acetone, Qual Negative (Negative) 10/11/22 Range/Units 05:30 WBC (4.8-10.8) X10*3/uL RBC (4.60-5.80) X10*6/uL Hgb (14.0-18.0) g/dl Hct (42.0-52.0) % MCV (80.0-98.0) fL MCH (27.0-33.0) pg MCHC (31.0-36.0) g/dl RDW (11.0-16.0) % Plt Count (160-400) X10*3/uL MPV (9.4-12.4) fL Immature Gran % (Auto) (0.0-0.4) % Neut % (Auto) (45-73) % Lymph % (Auto) (20-40) % [place] % (Auto) (2-11) % Eos % (Auto) (0-4) % Baso % (Auto) (0-2) % Lymph # (Auto) (1.2-4.9) X10*3/uL [place] # (Auto) (0.1-1.2) X10*3/uL Eos # (Auto) (0.0-0.4) X10*3/uL Baso # (Auto) (0.0-0.2) X10*3/uL Abs Immat Gran (auto) (0.00-0.03) X10*3/uL Absolute Neuts (auto) (2.0-8.3) x10*3/uL Absolute Nucleated RBC (0.0-0.012) X10*3/uL Nucleated RBC % (auto) (0.0-0.2) /100WBC VBG pH 7.51 H (7.32-7.43) VBG pCO2 32 mmHg VBG pO2 96 mmHg VBG HCO3 26 (22-26) mmol/L VBG O2 Saturation 98.0 % VBG Base Excess 3.8 mmol/L Sodium (135-145) mmol/L Potassium (3.3-5.1) mmol/L Chloride (96-108) mmol/L Carbon Dioxide (22-29) mmol/L Anion Gap (12-20) BUN (9-16) mg/dL Creatinine (0.5-1.4) mg/dL Estim Creat Clear Calc Estimated GFR POC Glucose (60-115) mg/dL Random Glucose (60-115) mg/dL Calcium (8.4-10.2) mg/dL Total Bilirubin (0.0-1.0) mg/dL AST (5-37) U/L ALT (0-40) U/L Alkaline Phosphatase (39-117) U/L Total Protein (6.5-8.0) g/dL Albumin (3.5-5.0) g/dL Acetone, Qual (Negative) Medications Administered Discontinued Medications Generic Name Dose Route Start Last Admin Trade Name Freq PRN Reason Stop Dose Admin Sodium Chloride 1,000 mls @ 999 mls/hr 10/11/22 05:02 10/11/22 05:29 Ns IV 10/11/22 06:02 999 mls/hr .Q1H1M ONE Administration Morphine Sulfate 4 mg 10/11/22 05:06 10/11/22 05:29 Morphine Sulfate 4 Mg/Ml Cartridge IVPUSH 10/11/22 05:07 4 mg ONCE ONE Administration Protocol Ondansetron HCl 4 mg 10/11/22 05:06 10/11/22 05:29 Ondansetron Hcl 4 Mg/2 Ml Vial IVPUSH 10/11/22 05:07 4 mg ONCE ONE Administration Discharge Plan Discharge Clinical Impression: Gastroenteritis Patient Disposition: Home, Self-Care Instructions: Acute Nausea and Vomiting (ED) Additional Instructions: Drink plenty of fluids Nausea medicine as prescribed Take your insulin as directed Prescriptions: New ondansetron 4 mg tablet,disintegrating 4 mg PO Q6-8H PRN (Reason: nausea and vomiting) Qty: 10 0RF No Action naproxen 500 mg tablet 500 mg PO BID PRN (Reason: pain) 7 Days Qty: 14 0RF pantoprazole [Protonix] 40 mg tablet,delayed release (DR/EC) 40 mg PO DAILY Qty: 14 0RF
[2022-10-11] MEDS: ondansetron HCL 4 MG/2 ML VIAL IVPUSH (05:29)
[2022-10-11] MEDS: 0.9 % Sodium Chloride 1,000 ML 999 ML IV (05:29)
[2022-10-11] MEDS: Morphine Sulfate 4 MG/ML CARTRIDGE IVPUSH (05:29)
[2022-10-11 05:32] LABS: MANUAL DIFF FLAG NO
[2022-10-11 05:33] LABS: Basophils Absolute Auto 0.1 X10*3/uL (0.0-0.2); Basophils Percent Auto 0.9 % (0-2); Eosinophils Absolute Auto 0.2 X10*3/uL (0.0-0.4); Eosinophils Percent Auto 2.6 % (0-4); Hematocrit 39.4 % (42.0-52.0); Hemoglobin 12.7 g/dl (14.0-18.0); Imm Gran Abs Auto 0.02 X10*3/uL (0.00-0.03); Imm Gran Pct Auto 0.3 % (0.0-0.4); Lymphocytes Percent Auto 28.8 % (20-40); Mean Corpuscular HGB Conc 32.2 g/dl (31.0-36.0); Mean Corpuscular Hemoglobin 24.6 pg (27.0-33.0); Mean Corpuscular Volume 76.2 fL (80.0-98.0); Mean Platelet Volume 10.1 fL (9.4-12.4); Monocytes Absolute Auto 0.5 X10*3/uL (0.1-1.2); Neutrophils Absolute Auto 4.1 x10*3/uL (2.0-8.3); Neutrophils Percent Auto 60.4 % (45-73); Platelet Count 263 X10*3/uL (160-400); Red Blood Count 5.17 X10*6/uL (4.60-5.80); Red Cell Distribution Width 15.1 % (11.0-16.0); White Blood Count 6.8 X10*3/uL (4.8-10.8)
[2022-10-11 05:38] LABS: VBG Base Excess 3.8 mmol/L; VBG HCO3 26 mmol/L (22-26); VBG pCO2 32 mmHg; VBG pH 7.51 (7.32-7.43); VBG pO2 96 mmHg
[2022-10-11 05:41] LABS: Venous Blood Gas Refer to POC result
[2022-10-11 05:43] LABS: Acetone, serum QL Negative (Negative)
[2022-10-11 05:53] LABS: Alanine Aminotransferase 19 U/L (0-40); Alkaline Phosphatase 63 U/L (39-117); Anion Gap 12 (12-20); Aspartate Amino Transferase 16 U/L (5-37); Bilirubin Total 0.2 mg/dL (0.0-1.0); Blood Urea Nitrogen 15 mg/dL (9-16); Calcium 9.7 mg/dL (8.4-10.2); Carbon Dioxide 27 mmol/L (22-29); Chloride 107 mmol/L (96-108); Creatinine Clr Calc Pharmacy 162.7; Estimated Glomerular Filt Rate > 60; Glucose Random 87 mg/dL (60-115); Potassium 3.7 mmol/L (3.3-5.1); Sodium 142 mmol/L (135-145); Total Protein 6.8 g/dL (6.5-8.0)
[2022-10-11 07:50] VITALS: BP 134/68; PULSE 82; RESP 18; TEMP 36.4; O2SAT 98
== END 2022-10-11 07:52 | disposition home or self-care (01) ==
PROVIDERS: Emergency Provider Internal Medicine; PCP Emergency Medicine
DX: K52.9 Noninfective gastroenteritis and colitis, unspecified (principal); E10.9 Type 1 diabetes mellitus without complications; Z79.4 Long term (current) use of insulin; Z79.899 Other long term (current) drug therapy
CPT/HCPCS: 36415; 80053; 82009; 82803; 82947; 85025; 96374; 96375; 99283; 99284; J2270; J2405

== ENCOUNTER 2022-10-20 13:17 | Emergency (ER) | payer BC, SELFPAY ==
[2022-10-20 13:20] VITALS: BP 120/82; PULSE 98; O2SAT 100
[2022-10-20 13:22] VITALS: BP 116/56; PULSE 97; RESP 20; TEMP 36.9; O2SAT 100; BMI 21.6
--- NOTE | 2022-10-20 13:22 | ED.GENADULT ---
HPI - General Adult General Chief complaint: General Medical Stated complaint: RUQ PAIN TO BACK X5 DAYS,FROM WORK PER EMS Related Data Home Medications Medication Instructions Recorded Confirmed insulin aspart U-100 100 unit/mL See Rx Instructions .Route .COMPLEX 12/19/22 01/23/23 (3 mL) subcutaneous pen (Novolog FlexPen U-100 Insulin aspart) insulin glargine 100 unit/mL (3 20 unit subcut DAILY 12/19/22 01/23/23 mL) subcutaneous pen (Lantus Solostar U-100 Insulin) pantoprazole 40 mg tablet,delayed 40 mg PO DAILY@0630 12/19/22 01/23/23 release (Protonix) acetaminophen 325 mg tablet 650 mg PO Q6H PRN Pain 01/23/23 01/23/23 gabapentin 300 mg capsule 300 mg PO BID 01/23/23 01/23/23 promethazine 25 mg tablet 25 mg PO TID PRN nausea/vomiting 01/23/23 01/23/23 Previous Rx's Medication Instructions Recorded dicyclomine 20 mg tablet 20 mg PO QID #60 tabs 01/23/23 xltmqsznx-gzsyaddah-benmicfn-scop 1 tab PO BID PRN Nausea, vomiting 01/23/23 16.2 mg-0.1037 mg-0.0194 mg tablet #14 tabs () promethazine 25 mg tablet 25 mg PO TID PRN nausea and 03/11/23 vomiting #20 tabs cyclobenzaprine 10 mg tablet 10 mg PO TID PRN muscle spasm #14 03/16/23 tabs lidocaine 5 % topical patch 1 patch topical DAILY #15 ea 03/16/23 naproxen 500 mg tablet 500 mg PO BID PRN pain #20 tabs 03/16/23 ondansetron 4 mg disintegrating 4 mg PO Q8H PRN nausea and 04/13/23 tablet vomiting #20 tabs Allergies Allergy/AdvReac Type Severity Reaction Status Date / Time diphenhydramine Allergy Anaphylaxis Verified 02/28/23 02:47 [From Benadryl] haloperidol [From Haldol] Allergy Difficulty Verified 02/28/23 02:47 Swallowing PMFSH Past Medical History Medical History Gates esophagus Diabetes mellitus type 1 Left against medical advice Social History Social History Household Members: Other Household Members Other:: cousin Housing: House Do you presently have visiting nurse or other home services: No Alcohol intake: never Patient Tobacco Use Status: Current everyday Tobacco user Tobacco use type: Cigarette Cigarette Packs Per Day: 0 Cigarettes Per Day: 0 Years Smoked: 10 e-Cigarette/Vaping Use: Never Used Second Hand Smoke Exposure: No Substance Use Type: Marijuana service: No Current occupational status: employed Physical Exam ED Vital Signs: BMI result Body Mass Index 21.6 Course Course Course Narrative: 27 year old male presents for evaluation of right upper abdominal pain that is back. The symptoms started last week. He reports associated nausea and vomiting. Was seen here on 10/02/2022 and diagnosed with gastroenteritis. Denies any chest pain. Plan for labs, ultrasound of his gallbladder and further workup is indicated Medical Decision Making Lab Data Labs: Lab Results 10/20/22 Range/Units 13:28 POC Glucose 197 H (60-115) mg/dL Discharge Plan Discharge Clinical Impression: Abdominal pain Patient Disposition: Elopement Prescriptions: No Action insulin aspart U-100 [Novolog FlexPen U-100 Insulin] 100 unit/mL (3 mL) insulin pen See Rx Instructions .ROUTE .COMPLEX Rx Instructions: 1 unit of insulin for every 35 units over 135 insulin glargine [Lantus Solostar U-100 Insulin] 100 unit/mL (3 mL) insulin pen 20 unit subcut DAILY pantoprazole [Protonix] 40 mg tablet,delayed release (DR/EC) 40 mg PO DAILY@0630 promethazine 25 mg tablet 25 mg PO TID PRN (Reason: nausea/vomiting) gabapentin 300 mg capsule 300 mg PO BID acetaminophen 325 mg Tablet 650 mg PO Q6H PRN (Reason: Pain) dicyclomine 20 mg tablet 20 mg PO QID Qty: 60 0RF Rx Instructions: Take 30 minutes before eating, 30 minutes before bed wgabaptes-kccklt-vhwrniwa-scop [] 16.2-0.1037 -0.0194 mg tablet 1 tab PO BID PRN (Reason: Nausea, vomiting) Qty: 14 0RF ondansetron 4 mg tablet,disintegrating 4 mg PO Q8H PRN (Reason: nausea and vomiting) Qty: 20 0RF promethazine 25 mg tablet 25 mg PO TID PRN (Reason: nausea and vomiting) Qty: 20 0RF cyclobenzaprine 10 mg tablet 10 mg PO TID PRN (Reason: muscle spasm) Qty: 14 0RF lidocaine 5 % adhesive patch,medicated 1 patch topical DAILY Qty: 15 0RF Rx Instructions: leave on most painful area for up to 12 hrs naproxen 500 mg tablet 500 mg PO BID PRN (Reason: pain) Qty: 20 0RF Interventions: ED Discharge Assessment Last Done: 10/20/22 19:44 Discharge Date/Time: 10/20/22 19:45
[2022-10-20 13:31] LABS: Glucose, Whole Blood 197 mg/dL (60-115)
--- NOTE | 2022-10-20 19:44 | PC.NURSE ---
pt not in the waiting room at 1944.
== END 2022-10-20 19:45 | disposition left against medical advice (07) ==
PROVIDERS: Emergency Provider Emergency Medicine
DX: R10.11 Right upper quadrant pain (principal); Z79.899 Other long term (current) drug therapy
CPT/HCPCS: 82947; 99282; 99284

== ENCOUNTER 2022-10-28 22:18 | Emergency (ER) | payer BC, SELFPAY ==
[2022-10-28 22:31] VITALS: BP 121/88; BP 133/91; PULSE 90; PULSE 97; RESP 18; TEMP 36.6; O2SAT 100; O2SAT 99; BMI 22.9
[2022-10-28] MEDS: Ondansetron ODT 4 MG TAB.RAPDIS TRANSLINGU (22:40)
--- NOTE | 2022-10-28 23:00 | MHC.EDTECH ---
pt refused blood draw ,because he wanted pain meds in the waiting room ,threaten that he was going to punch rn in triage ,also take his emiesis bad that had vomit in it and throw it at registation staff ,and shove the wheeled chair that he was sitting it.
== END 2022-10-28 23:36 | disposition left against medical advice (07) ==
PROVIDERS: Emergency Provider Emergency Medicine
DX: R10.9 Unspecified abdominal pain (principal); R11.2 Nausea with vomiting, unspecified
CPT/HCPCS: 99281; 99283

== ENCOUNTER 2022-12-18 11:50 | Emergency (ER) | payer BC, SELFPAY ==
[2022-12-18 11:57] VITALS: BP 118/81; BP 96/60; PULSE 89; PULSE 90; RESP 20; TEMP 37.3; O2SAT 99; BMI 20.9
--- NOTE | 2022-12-18 12:19 | ED_ITS ---
HPI - Back Pain/Injury General Chief Complaint: Back Pain/Injury Stated Complaint: back pain Time Seen by Provider: 12/18/22 12:01 Source: patient and EMS Mode of arrival: EMS Limitations: no limitations History of Present Illness HPI Narrative: 27 yo male with history of barretts esophagus, DM, diabetic gastroporesis who presents to the ER with back pain radiating to the right ribs/upper abdomen since yesterday with vomiting. No diarrhea, urinary symptoms including incontinence, fevers, chills, shortness of breath or cough. No leg swelling or leg pain. No radiation of pain/numbness/tingling in the LE. NO known injury or trauma MD elicited complaint: back pain Related Data Previous Rx's Medication Instructions Recorded pantoprazole 40 mg tablet,delayed 40 mg PO DAILY #14 tabs 10/12/21 release (Protonix) naproxen 500 mg tablet 500 mg PO BID PRN pain 7 days #14 10/03/22 tabs ondansetron 4 mg disintegrating 4 mg PO Q6-8H PRN nausea and 10/11/22 tablet vomiting #10 tabs promethazine 25 mg tablet 25 mg PO TID PRN nausea and 12/18/22 vomiting #14 tabs Allergies Allergy/AdvReac Type Severity Reaction Status Date / Time diphenhydramine Allergy Anaphylaxis Verified 10/28/22 22:41 [From Benadryl] haloperidol [From Haldol] Allergy Difficulty Verified 10/28/22 22:41 Swallowing Review of Systems Review of Systems: Yes all other systems are reviewed and are negative Constitutional: Constitutional: Reports no additional constitutional complaints, Denies body ache(s), Denies chills, Denies fever(s), Denies headache(s) and Denies weakness Eyes: Eyes: Reports no additional eye complaints and Denies change in vision ENT: Reports system reviewed and no additional complaints, except as documented, Denies dizziness, Denies headache(s), Denies nasal congestion, Denies nasal discharge and Denies neck pain Cardiovascular: Cardiovascular: Reports no additional cardiovascular complai nts, Denies chest pain, Denies leg edema and Denies dyspnea Respiratory: Respiratory: Reports no additional respiratory complaints, Denies cough and Denies dyspnea Gastrointestinal: Gastrointestinal: Reports no additional gastrointestinal complaints, Reports abdominal pain, Denies diarrhea, Reports nausea and Reports vomiting Genitourinary: Genitourinary: Denies urinary incontinence Musculoskeletal: Musculoskeletal: Reports no additional musculoskeletal complaints, Reports back pain, Denies arthralgias, Denies joint swelling, Denies neck pain, Denies numbness and Denies tingling Integumentary/Breasts: Skin/Breast: Reports system reviewed and no additional complaints, except as docu and Denies rash Neurologic: Reports system reviewed and no additional complaints, except as documented, Denies Abnormal speech present, Denies dizziness, Denies headache(s), Denies numbness, Denies tingling and Denies weakness [facility] Past Medical History Attestation statement: The following information was validated with the patient. Source: old records reviewed and nursing notes reviewed Medical History Gates esophagus Diabetes mellitus type 1 Social History Social History Alcohol intake: current Alcohol intake frequency: does not drink Substance Use Type: Marijuana Advance Directives: No Advance Directives Information Provided: No Physical Exam Vital Signs: Vital Signs: Last Vital Signs Temp 97.8 F 12/18/22 16:00 Pulse 87 12/18/22 16:00 Resp 16 12/18/22 16:00 BP 100/70 12/18/22 16:00 Pulse Ox 98 12/18/22 16:00 O2 Del Method Room Air 12/18/22 16:00 BMI result Body Mass Index 20.9 Const: General: cooperative, healthy appearing, comfortable and no acute distress Orientation/consciousness: patient oriented x3 Limitations: no limitations HEENT: Head: Yes normal to inspection Ears: hearing grossly normal bilaterally General nose exam: Normal external nose present Face and sinus: Yes normal facial exam Mouth: Normal oral and palatal mucosa present Throat: Yes posterior oropharynx normal Eyes: General: appearance normal, both eyes and all related structures Pupils: Equal, round and reactive pupils present Neck: Neck: Yes normal visual inspection Chest: Chest palpation & inspection: normal inspection of the chest Resp: Effort & Inspection: normal respiratory effort Auscultation: clear to auscultation bilaterally Cardio: Rate: regular rate Rhythm: regular rhythm Peripheral pulses: Peripheral pulses 2+ throughout GI: Other: Tenderness of the right lateral chest wall no crepitus or ecchymosis or deformi ty Inspection: Yes normal to inspection Palpation (GI): Soft to palpation and Tenderness to palpation present (GI) (Mild tenderness in the right upper quadrant with no rebound or guarding) Auscultation: normal bowel sounds Back/Spine/Pelvis: Other: Entire thoracic and lumbar spine is tender to palpation with no step-offs or deformities noted. Patient is in a left lateral position and reports pain with extension of his legs. Patient is able to move them with no difficulty Thoracic/Lumbar Spine: thoracic and lumbar spine normal to inspection Skin: General skin exam: no rashes or lesions noted Neuro: General: patient oriented x3, moves all extremities, no focal motor deficits and normal sensation to monofilament Cranial nerves: Yes Equal, round and reactive pupils present, Yes Bilaterally intact EOM present, Yes Nystagmus not present, Yes Normal facial strength present and Yes Midline tongue present Cognition (Neuro): normal cognition Speech: No Abnormal speech present Sensory Exam: Normal double simultaneous stimulation for sensation Extrem: General: Yes normal to inspection, Yes no pedal edema and Yes no calf tenderness Course Course Course Narrative: 1430-patient's labs show hyperglycemia with no evidence of DKA. Patient reports he did not take any insulin today due to his vomiting. Patient has mild leukocytosis was likely secondary to vomiting and not for infection. Lactic is negative. No fever. Reevaluation(s) Reevaluation #1: 1630-Sugar trending down. Patient eating jello and drinking shaila aydee feeling better overall. he ran out of Phenergan at home. I will give him a refill for the. His repeat abdominal exam is benign. He is up and ambulatory with a steady gait. Patient tells me that he does have chronic back pain and has been taking gabapentin. He also has been using his grandmother's Tylenol number threes at home. He was requesting a 30 day supply of Tylenol No. 3 for pain. I recommended use Tylenol or ibuprofen as needed and follow up with his primary care outpatient. Medications Administered Discontinued Medications Generic Name Dose Route Start Last Admin Trade Name Freq PRN Reason Stop Dose Admin Sodium Chloride 1,000 mls @ 999 mls/hr 12/18/22 12:30 12/18/22 14:18 Ns IV 12/18/22 13:30 Infused .Q1H1M JELENA Infusion Sodium Chloride 1,000 mls @ 999 mls/hr 12/18/22 13:37 12/18/22 16:24 Ns IV 12/18/22 14:37 Infused .Q1H1M STA Infusion Sodium Chloride 1,000 mls @ 999 mls/hr 12/18/22 15:47 12/18/22 16:24 Ns IV 12/18/22 16:47 Not Given .Q1H1M STA Insulin Human Regular 10 unit 12/18/22 13:37 12/18/22 14:19 Insulin Regular, Human 100 Unit/Ml 3 Ml Vial IVPUSH 12/18/22 13:38 10 unit ONCE ONE Administration Insulin Human Regular 5 unit 12/18/22 15:47 12/18/22 16:34 Insulin Regular, Human 100 Unit/Ml 3 Ml Vial IVPUSH 12/18/22 15:48 5 unit ONCE ONE Administration Ketorolac Tromethamine 30 mg 12/18/22 12:17 12/18/22 13:00 Ketorolac Tromethamine 30 Mg/Ml Vial IVPUSH 12/18/22 12:18 30 mg ONCE ONE Administration Lorazepam 1 mg 12/18/22 14:37 12/18/22 14:44 Lorazepam 2 Mg/Ml Vial IVPUSH 12/18/22 14:38 1 mg STAT STA Administration Morphine Sulfate 4 mg 12/18/22 12:17 12/18/22 13:00 Morphine Sulfate 4 Mg/Ml Cartridge IVPUSH 12/18/22 12:18 4 mg ONCE ONE Administration Protocol Ondansetron HCl 4 mg 12/18/22 12:17 12/18/22 13:00 Ondansetron Hcl 4 Mg/2 Ml Vial IVPUSH 12/18/22 12:18 4 mg ONCE ONE Administration Ondansetron HCl 4 mg 12/18/22 14:37 12/18/22 14:44 Ondansetron Hcl 4 Mg/2 Ml Vial IVPUSH 12/18/22 14:38 4 mg ONCE ONE Administration Medical Decision Making Medical Decision Making MDM Narrative: 27-year-old male with history of diabetes, diabetic gastroparesis who presents to the ER with complaints of entire back pain with radiation to the right ribs and right upper quadrant since yesterday with multiple episodes of vomiting. No reports of injury or trauma. Patient with entire back pain on palpation, as well as tenderness over the right lateral ribs and upper quadrant with no rebound or guarding. WIll obtain labs, UA, COVID/flu testing Will provide IVF, antiemetic and pain control Differential Diagnosis Differential Diagnoses: The differential diagnosis associated with the presentation includes Diabetic gastroparesis Low concern for acute abdominal pathology, renal colic, pyelonephritis, cholecystitis Lumbar strain, low concern for AAA, epidural abscess, cord compression, cauda equina Lab Data MDM Lab Attestation statement: I reviewed the patient's lab results. 12/18/22 12:56 12/18/22 12:56 Labs: Lab Results 12/18/22 12/18/22 12/18/22 Range/Units 12:56 12:56 12:56 WBC 15.0 H (4.8-10.8) X10*3/uL RBC 6.06 H (4.60-5.80) X10*6/uL Hgb 15.2 (14.0-18.0) g/dl Hct 46.0 (42.0-52.0) % MCV 75.9 L (80.0-98.0) fL MCH 25.1 L (27.0-33.0) pg MCHC 33.0 (31.0-36.0) g/dl RDW 13.8 (11.0-16.0) % Plt Count 361 D (160-400) X10*3/uL MPV 10.7 (9.4-12.4) fL Immature Gran % (Auto) 0.6 H (0.0-0.4) % Neut % (Auto) 84.8 H (45-73) % Lymph % (Auto) 9.9 L (20-40) % [place] % (Auto) 4.4 (2-11) % Eos % (Auto) 0.0 (0-4) % Baso % (Auto) 0.3 (0-2) % Lymph # (Auto) 1.5 (1.2-4.9) X10*3/uL [place] # (Auto) 0.7 (0.1-1.2) X10*3/uL Eos # (Auto) 0.0 (0.0-0.4) X10*3/uL Baso # (Auto) 0.1 (0.0-0.2) X10*3/uL Abs Immat Gran (auto) 0.09 H (0.00-0.03) X10*3/uL Absolute Neuts (auto) 12.7 H (2.0-8.3) x10*3/uL Absolute Nucleated RBC 0.000 (0.0-0.012) X10*3/uL Nucleated RBC % (auto) 0.0 (0.0-0.2) /100WBC Sodium 133 L (135-145) mmol/L Potassium 5.0 D (3.3-5.1) mmol/L Chloride 95 L (96-108) mmol/L Carbon Dioxide 23 (22-29) mmol/L Anion Gap 20 (12-20) BUN 35 H (9-16) mg/dL Creatinine 1.28 (0.5-1.4) mg/dL Estim Creat Clear Calc 86.9 Estimated GFR > 60 POC Glucose (60-115) mg/dL Random Glucose 506 H* (60-115) mg/dL Lactic Acid 1.3 (0.5-2.0) mmol/L Calcium 10.5 H D (8.4-10.2) mg/dL Total Bilirubin 0.7 (0.0-1.0) mg/dL Direct Bilirubin 0.2 (0.0-0.5) mg/dL AST 19 (5-37) U/L ALT 21 (0-40) U/L Alkaline Phosphatase 108 (39-117) U/L Total Creatine Kinase 126 (38-174) U/L Total Protein 8.9 H (6.5-8.0) g/dL Albumin 5.0 (3.5-5.0) g/dL Lipase < 4 L (8-78) U/L Urine Color Urine Appearance Urine pH (5.0-9.0) Ur Specific [place] (1.005-1.025) Urine Protein (Neg-Trace) mg/dL Urine Glucose (UA) (Negative) mg/dL Urine Ketones (Negative) mg/dL Urine Blood (Negative) Urine Nitrite (Negative) Ur Leukocyte Esterase (Negative) Urine RBC (0-2) /HPF Urine WBC (0-5) /HPF Ur Squamous Epith Cells (0-2) /HPF Urine Bacteria (None Seen) Hyaline Casts (0-2) /LPF Urine Opiates Screen (Not Detect) Urine Fentanyl Screen (Not Detect) Ur Barbiturates Screen (Not Detect) Ur Phencyclidine Scrn (Not Detect) Ur Amphetamines Screen (Not Detect) U Benzodiazepines Scrn (Not Detect) Urine Cocaine Screen (Not Detect) U Marijuana (THC) Screen (Not Detect) Acetone, Qual Negative (Negative) COVID-19 (KURT) (Negative) COVID-19 Clin Com Influenza Type A (STARLA) (Negative) Influenza Type B (STARLA) (Negative) Influenza A & B Note 12/18/22 12/18/22 12/18/22 Range/Units 12:57 12:57 14:05 WBC (4.8-10.8) X10*3/uL RBC (4.60-5.80) X10*6/uL Hgb (14.0-18.0) g/dl Hct (42.0-52.0) % MCV (80.0-98.0) fL MCH (27.0-33.0) pg MCHC (31.0-36.0) g/dl RDW (11.0-16.0) % Plt Count (160-400) X10*3/uL MPV (9.4-12.4) fL Immature Gran % (Auto) (0.0-0.4) % Neut % (Auto) (45-73) % Lymph % (Auto) (20-40) % [place] % (Auto) (2-11) % Eos % (Auto) (0-4) % Baso % (Auto) (0-2) % Lymph # (Auto) (1.2-4.9) X10*3/uL [place] # (Auto) (0.1-1.2) X10*3/uL Eos # (Auto) (0.0-0.4) X10*3/uL Baso # (Auto) (0.0-0.2) X10*3/uL Abs Immat Gran (auto) (0.00-0.03) X10*3/uL Absolute Neuts (auto) (2.0-8.3) x10*3/uL Absolute Nucleated RBC (0.0-0.012) X10*3/uL Nucleated RBC % (auto) (0.0-0.2) /100WBC Sodium (135-145) mmol/L Potassium (3.3-5.1) mmol/L Chloride (96-108) mmol/L Carbon Dioxide (22-29) mmol/L Anion Gap (12-20) BUN (9-16) mg/dL Creatinine (0.5-1.4) mg/dL Estim Creat Clear Calc Estimated GFR POC Glucose (60-115) mg/dL Random Glucose (60-115) mg/dL Lactic Acid (0.5-2.0) mmol/L Calcium (8.4-10.2) mg/dL Total Bilirubin (0.0-1.0) mg/dL Direct Bilirubin (0.0-0.5) mg/dL AST (5-37) U/L ALT (0-40) U/L Alkaline Phosphatase (39-117) U/L Total Creatine Kinase (38-174) U/L Total Protein (6.5-8.0) g/dL Albumin (3.5-5.0) g/dL Lipase (8-78) U/L Urine Color Yellow Urine Appearance Clear Urine pH 5.5 (5.0-9.0) Ur Specific [place] >= 1.030 H (1.005-1.025) Urine Protein 30 (1+) H (Neg-Trace) mg/dL Urine Glucose (UA) >=1000 H (Negative) mg/dL Urine Ketones 40 (Negative) mg/dL Urine Blood Negative (Negative) Urine Nitrite Negative (Negative) Ur Leukocyte Esterase Negative (Negative) Urine RBC 0-2 (0-2) /HPF Urine WBC 0-5 (0-5) /HPF Ur Squamous Epith Cells 0-2 (0-2) /HPF Urine Bacteria None Seen (None Seen) Hyaline Casts 0-2 (0-2) /LPF Urine Opiates Screen (Not Detect) Urine Fentanyl Screen (Not Detect) Ur Barbiturates Screen (Not Detect) Ur Phencyclidine Scrn (Not Detect) Ur Amphetamines Screen (Not Detect) U Benzodiazepines Scrn (Not Detect) Urine Cocaine Screen (Not Detect) U Marijuana (THC) Screen (Not Detect) Acetone, Qual (Negative) COVID-19 (KURT) Negative (Negative) COVID-19 Clin Com See Note Influenza Type A (STARLA) Negative (Negative) Influenza Type B (STARLA) Negative (Negative) Influenza A & B Note See Note 04/30/23 04/30/23 Range/Units 14:05 15:43 WBC (4.8-10.8) X10*3/uL RBC (4.60-5.80) X10*6/uL Hgb (14.0-18.0) g/dl Hct (42.0-52.0) % MCV (80.0-98.0) fL MCH (27.0-33.0) pg MCHC (31.0-36.0) g/dl RDW (11.0-16.0) % Plt Count (160-400) X10*3/uL MPV (9.4-12.4) fL Immature Gran % (Auto) (0.0-0.4) % Neut % (Auto) (45-73) % Lymph % (Auto) (20-40) % [place] % (Auto) (2-11) % Eos % (Auto) (0-4) % Baso % (Auto) (0-2) % Lymph # (Auto) (1.2-4.9) X10*3/uL [place] # (Auto) (0.1-1.2) X10*3/uL Eos # (Auto) (0.0-0.4) X10*3/uL Baso # (Auto) (0.0-0.2) X10*3/uL Abs Immat Gran (auto) (0.00-0.03) X10*3/uL Absolute Neuts (auto) (2.0-8.3) x10*3/uL Absolute Nucleated RBC (0.0-0.012) X10*3/uL Nucleated RBC % (auto) (0.0-0.2) /100WBC Sodium (135-145) mmol/L Potassium (3.3-5.1) mmol/L Chloride (96-108) mmol/L Carbon Dioxide (22-29) mmol/L Anion Gap (12-20) BUN (9-16) mg/dL Creatinine (0.5-1.4) mg/dL Estim Creat Clear Calc Estimated GFR POC Glucose 335 H (60-115) mg/dL Random Glucose (60-115) mg/dL Lactic Acid (0.5-2.0) mmol/L Calcium (8.4-10.2) mg/dL Total Bilirubin (0.0-1.0) mg/dL Direct Bilirubin (0.0-0.5) mg/dL AST (5-37) U/L ALT (0-40) U/L Alkaline Phosphatase (39-117) U/L Total Creatine Kinase (38-174) U/L Total Protein (6.5-8.0) g/dL Albumin (3.5-5.0) g/dL Lipase (8-78) U/L Urine Color Urine Appearance Urine pH (5.0-9.0) Ur Specific [place] (1.005-1.025) Urine Protein (Neg-Trace) mg/dL Urine Glucose (UA) (Negative) mg/dL Urine Ketones (Negative) mg/dL Urine Blood (Negative) Urine Nitrite (Negative) Ur Leukocyte Esterase (Negative) Urine RBC (0-2) /HPF Urine WBC (0-5) /HPF Ur Squamous Epith Cells (0-2) /HPF Urine Bacteria (None Seen) Hyaline Casts (0-2) /LPF Urine Opiates Screen Not Detected (Not Detect) Urine Fentanyl Screen Not Detected (Not Detect) Ur Barbiturates Screen Not Detected (Not Detect) Ur Phencyclidine Scrn Not Detected (Not Detect) Ur Amphetamines Screen Not Detected (Not Detect) U Benzodiazepines Scrn Not Detected (Not Detect) Urine Cocaine Screen Not Detected (Not Detect) U Marijuana (THC) Screen POSITIVE H (Not Detect) Acetone, Qual (Negative) COVID-19 (KURT) (Negative) COVID-19 Clin Com Influenza Type A (STARLA) (Negative) Influenza Type B (STARLA) (Negative) Influenza A & B Note Independent Historian Clinical information obtained from an independent historian. History obtained from or confirmed by: EMS Discharge Plan Discharge Clinical Impression: Diabetic gastroparesis, Diabetes mellitus with hyperglycemia Patient Disposition: Home, Self-Care Instructions: Diabetic Gastroparesis (DC), Diabetic Hyperglycemia (ED) Additional Instructions: Make sure you take your insulin Use the Phenergan as needed for nausea or vomiting Follow-up with her primary care doctor and ask for referral to see a biological science technician Prescriptions: New promethazine 25 mg tablet 25 mg PO TID PRN (Reason: nausea and vomiting) Qty: 14 0RF No Action naproxen 500 mg tablet 500 mg PO BID PRN (Reason: pain) 7 Days Qty: 14 0RF ondansetron 4 mg tablet,disintegrating 4 mg PO Q6-8H PRN (Reason: nausea and vomiting) Qty: 10 0RF pantoprazole [Protonix] 40 mg tablet,delayed release (DR/EC) 40 mg PO DAILY Qty: 14 0RF Referrals: Physician,None [Primary Care Provider] - Interventions: ED Discharge Assessment Last Done: 12/18/22 16:49 Discharge Date/Time: 12/18/22 16:56
[2022-12-18] MEDS: 0.9 % Sodium Chloride 1,000 ML 999 ML IV ×2 (12:59→14:19)
[2022-12-18] MEDS: Ketorolac Tromethamine 30 MG/ML VIAL IVPUSH (13:00)
[2022-12-18] MEDS: Morphine Sulfate 4 MG/ML CARTRIDGE IVPUSH (13:00)
[2022-12-18] MEDS: ondansetron HCL 4 MG/2 ML VIAL IVPUSH ×2 (13:00→14:44)
[2022-12-18 13:01] LABS: MANUAL DIFF FLAG NO
[2022-12-18 13:05] LABS: Basophils Absolute Auto 0.1 X10*3/uL (0.0-0.2); Basophils Percent Auto 0.3 % (0-2); Hemoglobin 15.2 g/dl (14.0-18.0); Imm Gran Abs Auto 0.09 X10*3/uL (0.00-0.03); Imm Gran Pct Auto 0.6 % (0.0-0.4); Lymphocytes Absolute Auto 1.5 X10*3/uL (1.2-4.9); Lymphocytes Percent Auto 9.9 % (20-40); Mean Corpuscular Hemoglobin 25.1 pg (27.0-33.0); Mean Corpuscular Volume 75.9 fL (80.0-98.0); Mean Platelet Volume 10.7 fL (9.4-12.4); Monocytes Absolute Auto 0.7 X10*3/uL (0.1-1.2); Monocytes Percent Auto 4.4 % (2-11); Neutrophils Absolute Auto 12.7 x10*3/uL (2.0-8.3); Neutrophils Percent Auto 84.8 % (45-73); Platelet Count 361 X10*3/uL (160-400); Red Blood Count 6.06 X10*6/uL (4.60-5.80); Red Cell Distribution Width 13.8 % (11.0-16.0)
[2022-12-18 13:12] LABS: Lactic Acid 1.3 mmol/L (0.5-2.0)
[2022-12-18 13:34] LABS: COVID-19 Test Negative (Negative); IDNOW Serial# 08D9AD1C
[2022-12-18 13:35] LABS: Alanine Aminotransferase 21 U/L (0-40); Alkaline Phosphatase 108 U/L (39-117); Anion Gap 20 (12-20); Aspartate Amino Transferase 19 U/L (5-37); Bilirubin Direct 0.2 mg/dL (0.0-0.5); Bilirubin Total 0.7 mg/dL (0.0-1.0); Blood Urea Nitrogen 35 mg/dL (9-16); Calcium 10.5 mg/dL (8.4-10.2); Carbon Dioxide 23 mmol/L (22-29); Chloride 95 mmol/L (96-108); Creatinine Clr Calc Pharmacy 86.9; Estimated Glomerular Filt Rate > 60; Glucose Random 506 mg/dL (60-115); Lipase < 4 U/L (8-78); Sodium 133 mmol/L (135-145); Total Protein 8.9 g/dL (6.5-8.0)
[2022-12-18 13:35] LABS: IDNOW Serial# BCCEAD1C; Influenza A Negative (Negative); Influenza B2 Negative (Negative)
[2022-12-18 13:53] VITALS: BP 108/61; PULSE 93; RESP 16; TEMP 36.9; O2SAT 98
[2022-12-18 14:14] LABS: Appearance Urine Clear; Color Urine Yellow; Glucose Urine UA >=1000 mg/dL (Negative); Leukocyte Esterase Urine Negative (Negative); Nitrite Urine Negative (Negative); PH 5.5 (5.0-9.0); Specific Gravity - Urine >= 1.030 (1.005-1.025); UMIC TRIGGER UACC YES; Urine Blood Negative (Negative); Urine Ketones 40 mg/dL (Negative); Urine Protein 30 (1+) mg/dL (Neg-Trace)
[2022-12-18 14:18] LABS: Bacteria Urine None Seen (None Seen); Hyaline Casts Urine 0-2 /LPF (0-2); RBC Urine 0-2 /HPF (0-2); Squamous Epithelial Cell Urine 0-2 /HPF (0-2); WBC Urine 0-5 /HPF (0-5)
[2022-12-18] MEDS: Insulin Regular, Human 100 UNIT/ML 3 ML VIAL 10 UNIT IVPUSH (14:19)
[2022-12-18 14:21] LABS: Acetone, serum QL Negative (Negative)
[2022-12-18 14:27] LABS: Amphetamine Screen Urine Not Detected (Not Detect); Barbiturates, Urine Not Detected (Not Detect); Benzodiazepines Screen Urine Not Detected (Not Detect); Cannabinoid Screen Urine POSITIVE (Not Detect); Cocaine Screen Urine Not Detected (Not Detect); Fentanyl, urine Not Detected (Not Detect); Opiate Screen Urine Not Detected (Not Detect); Phencyclidine Screen Urine Not Detected (Not Detect)
[2022-12-18] MEDS: LORazepam 2 MG/ML VIAL 1 MG IVPUSH (14:44)
[2022-12-18 15:48] LABS: Glucose, Whole Blood 335 mg/dL (60-115)
[2022-12-18 16:00] VITALS: BP 100/70; PULSE 87; RESP 16; TEMP 36.6; O2SAT 98
[2022-12-18] MEDS: Insulin Regular, Human 100 UNIT/ML 3 ML VIAL IVPUSH (16:34)
== END 2022-12-18 16:56 | disposition home or self-care (01) ==
PROVIDERS: Nurse Practitioner Family; Emergency Provider Emergency Medicine
DX: E11.43 Type 2 diabetes mellitus with diabetic autonomic (poly)neuropathy (principal); E11.65 Type 2 diabetes mellitus with hyperglycemia; M54.50 Low back pain, unspecified; K31.84 Gastroparesis; Z79.899 Other long term (current) drug therapy; Z20.822 Contact with and (suspected) exposure to COVID-19; Z20.828 Contact with and (suspected) exposure to other viral communicable diseases
CPT/HCPCS: 80048; 80076; 80307; 81001; 82009; 82550; 82947; 83605; 83690; 85025; 87502; 87635; 96374; 96375; 96376; 99284; J1885; J2060; J2270; J2405

== ENCOUNTER 2022-12-19 11:20 | Inpatient (IN) | payer BC, OTHER, SELFPAY ==
--- NOTE | ~2022-12-19 | CT_ITS ---
CT FACIAL BONES WITH IV CONTRAST CLINICAL INFORMATION: Dental infection. Rule out abscess. COMPARISON: Facial CT 10/02/2022. TECHNIQUE: A multidetector CT acquisition of the maxillofacial region is obtained following the administration of 85 mL of Omnipaque 300 intravenous contrast without complication. This CT examination was performed using dose optimization techniques as appropriate, variously including the following: *Automated exposure control *Adjustment of mA and/or kV according to patient size (this includes techniques or standardized protocols for targeted exams where dose is matched to indication/reason for exam; i.e. extremities or head) *Use of iterative reconstruction technique FINDINGS: There is periapical lucency involving the roots of the second mandibular molars bilaterally, the right mandibular canine, and the palatal root of the right second maxillary molar that can be correlated with physical exam to exclude periapical abscess. Multiple dental caries. Possible subtle cellulitic changes along the lingual cortical surface of the right mandible adjacent to periapical lucency surrounding the roots of the right second mandibular molar. No discrete peripherally enhancing fluid collection to suggest soft tissue abscess. Fat planes within the floor of mouth are intact. Superficial mucosal spaces are normal. Orbital soft tissues are normal. Imaged cervical arterial vasculature is patent and the venous system is patent. Partially imaged intracranial compartment is unremarkable. Moderate mucosal thickening and aerosolized fluid levels within the maxillary sinuses bilaterally that can be correlated for clinical signs of acute sinusitis. There is mild mucosal thickening within the ethmoid air cells as well. CT/CT facial bones w IV con IMPRESSION: - There is periapical lucency involving the roots of the second mandibular molars bilaterally, the right mandibular canine, and the palatal root of the right second maxillary molar that can be correlated with physical exam to exclude periapical abscess. Multiple dental caries. Possible subtle cellulitic changes along the lingual cortical surface of the right mandible adjacent to periapical lucency surrounding the roots of the right second mandibular molar. No discrete peripherally enhancing fluid collection to suggest soft tissue abscess. - Moderate mucosal thickening and aerosolized fluid levels within the maxillary sinuses bilaterally that can be correlated for clinical signs of acute sinusitis.
--- NOTE | ~2022-12-19 | CT_ITS ---
EXAMINATION: CT ABDOMEN AND PELVIS WITH CONTRAST CLINICAL INFORMATION: Pain, nausea and vomiting COMPARISON: Previous CT of the abdomen and pelvis July 2010 TECHNIQUE: Multidetector volumetric images were obtained from the superior aspect of the liver through the pubic symphysis following administration 85 mL of Omnipaque 350 intravenous contrast. Sagittal and coronal reformatted images were obtained on the technologist's workstation. Oral contrast: Yes This CT examination was performed using dose optimization techniques as appropriate, variously including the following: *Automated exposure control *Adjustment of mA and/or kV according to patient size (this includes techniques or standardized protocols for targeted exams where dose is matched to indication/reason for exam; i.e. extremities or head) *Use of iterative reconstruction technique DLP: 402 mGy-cm FINDINGS: LUNG BASES: The visualized lung bases are unremarkable. LIVER, GALLBLADDER, AND BILIARY TREE: The liver is normal in size, and shape. Liver slightly low in attenuation. No focal hepatic lesion or biliary ductal dilatation is present. The gallbladder is unremarkable with no evidence of radiopaque gallstones, gallbladder wall thickening, or obvious pericholecystic inflammatory changes. PANCREAS: Unremarkable. SPLEEN: Unremarkable. ADRENAL GLANDS: Unremarkable. KIDNEYS AND URETERS: The kidneys are normal in size, shape, and attenuation. No hydronephrosis, hydroureter, or calculi seen. No perinephric stranding. BLADDER: Unremarkable. GASTROINTESTINAL TRACT: There are fluid-filled loops of small bowel. There is question of mild wall thickening of the colon versus changes due to underdistention. No dilated loops of bowel or air-fluid levels to suggest obstruction. The appendix appears to have been removed. There is stomach is unremarkable. ABDOMINAL WALL: No significant hernia is appreciated. LYMPH NODES: Normal. VASCULAR: Unremarkable. PELVIC VISCERA: Unremarkable. OSSEOUS STRUCTURES: Unremarkable. CT/CT abdomen pelvis w IV con IMPRESSION: Mild fatty infiltration of the liver. Fluid-filled loops of small bowel and question mild wall thickening of the colon/colitis versus changes due to underdistention. Fleischner guidelines were followed.
[2022-12-19 11:32] VITALS: BP 124/63; PULSE 104; RESP 20; TEMP 37.1; O2SAT 100
--- NOTE | 2022-12-19 11:32 | ECG_ITS ---
Test Reason : vomitting Blood Pressure : / mmHG Vent. Rate : 109 BPM Atrial Rate : 109 BPM P-R Int : 126 ms QRS Dur : 098 ms QT Int : 340 ms P-R-T Axes : 085 -42 063 degrees QTc Int : 457 ms Sinus tachycardia Possible Left atrial enlargement Left axis deviation Abnormal ECG When compared with ECG of 29-SEP-2022 07:56, ST no longer depressed in Inferior leads Referred By: Nieves Aguilar Electronically Signed By:ESTRELLA ELIAS MD
--- NOTE | 2022-12-19 11:32 | ED.GENADULT ---
HPI - General Adult General Chief complaint: Abdominal Pain <JORDAN Reich Last Filed: 12/19/22 18:44> Stated complaint: ABD PAIN,HIGH BLOOD SUGAR <JORDAN Reich Last Filed: 12/19/22 18:44> Time Seen by Provider: 12/19/22 11:30 <JORDAN Reich Last Filed: 12/19/22 18:44> Source: patient and EMS <JORDAN Reich Last Filed: 12/19/22 18:44> Mode of arrival: EMS <JORDAN Reich Last Filed: 12/19/22 18:44> Limitations: no limitations <JORDAN Reich Last Filed: 12/19/22 18:44> History of Present Illness HPI narrative: Patient is a 27 year old assigned male at with a history of callahan esophagus and DM type 1 presenting to the emergency department today with persistent abdominal pain, nausea, and vomiting. Patient states that he has not been taking his insulin and his stomach has been hurting a lot. Patient states that he was seen here yesterday, felt better, but now feels worse than he did then. Patient denies any dizziness, lightheadedness, fever, chills, blurry vision, double vision, loss of vision, chest pain, difficulty breathing, shortness of breath, back pain, night sweats, pain with urination, increased urinary frequency, increased urinary urgency, blood in his urine or stool, syncope or a near syncopal episode, recent trauma or falls, bowel incontinence, bladder incontinence, bowel retention, bladder retention, or any other complaints at this time. <JORDAN Reich Last Filed: 12/19/22 18:44> Onset (ago): day(s) <JORDAN Reich Last Filed: 12/19/22 18:44> Severity: moderate <JORDAN Reich Last Filed: 12/19/22 18:44> Severity scale (1-10): 5 <JORDAN Reich Last Filed: 12/19/22 18:44> Relieving factors: none <JORDAN Reich Last Filed: 12/19/22 18:44> Exacerbating factors: none <JORDAN Reich Last Filed: 12/19/22 18:44> Associated symptoms: nausea/vomiting <JORDAN Reich Last Filed: 12/19/22 18:44> Treatments prior to arrival: none <JORDAN Reich Last Filed: 12/19/22 18:44> Related Data Home medications: Home Medications Medication Instructions Recorded Confirmed insulin aspart U-100 100 unit/mL See Rx Instructions .Route .COMPLEX 12/19/22 12/19/22 (3 mL) subcutaneous pen (Novolog FlexPen U-100 Insulin aspart) insulin glargine 100 unit/mL (3 20 unit subcut BEDTIME 12/19/22 12/19/22 mL) subcutaneous pen (Lantus Solostar U-100 Insulin) pantoprazole 40 mg tablet,delayed 40 mg PO DAILY@0630 12/19/22 12/19/22 release (Protonix) promethazine 25 mg tablet 25 mg PO Q4H PRN nausea and 12/19/22 12/19/22 vomiting <JORDAN Reich Last Filed: 12/19/22 18:44> Allergies/adverse reactions: Allergies Allergy/AdvReac Type Severity Reaction Status Date / Time diphenhydramine Allergy Anaphylaxis Verified 10/28/22 22:41 [From Benadryl] haloperidol [From Haldol] Allergy Difficulty Verified 10/28/22 22:41 Swallowing <JORDAN Reich Last Filed: 12/19/22 18:44> Review of Systems Constitutional: Constitutional: Reports no additional constitutional complaints, Denies chills, Denies fever(s) and Denies night sweats <JORDAN Reich Last Filed: 12/19/22 18:44> Eyes: Eyes: Reports no additional eye complaints, Denies blurry vision, Denies change in vision, Denies diplopia, Denies eye discharge, Denies loss of vision and Denies eye pain <JORDAN Reich Last Filed: 12/19/22 18:44> ENT: Denies dizziness <JORDAN Reich Last Filed: 12/19/22 18:44> Cardiovascular: Cardiovascular: Reports no additional cardiovascular complaints, Denies chest pain, Denies lightheadedness, Denies Loss of Consciousness and Denies dyspnea <JORDAN Reich Last Filed: 12/19/22 18:44> Respiratory: Respiratory: Reports no additional respiratory complaints and Denies dyspnea <JORDAN Reich - Last Filed: 12/19/22 18:44> Gastrointestinal: Gastrointestinal: Reports no additional gastrointestinal complaints, Reports abdominal pain, Denies melena, Denies hematochezia, Denies change in bowel habits, Denies change in stool character, Reports nausea and Reports vomiting <JORDAN Reich - Last Filed: 12/19/22 18:44> Genitourinary: Genitourinary: Reports no additional male genitourinary complaints, Denies hematuria, Denies oliguria, Denies difficulty urinating, Denies dysuria, Denies urinary frequency, Denies urinary hesitancy, Denies urinary incontinence and Denies urinary urgency <JORDAN Reich - Last Filed: 12/19/22 18:44> Musculoskeletal: Musculoskeletal: Reports no additional musculoskeletal complaints, Denies numbness and Denies tingling <JORDAN Reich - Last Filed: 12/19/22 18:44> Neurologic: Denies dizziness, Denies loss of vision, Denies numbness and Denies tingling <JORDAN Reich - Last Filed: 12/19/22 18:44> Psychiatric: Psychiatric: Reports no additional psychiatric complaints <OJRDAN Reich Last Filed: 12/19/22 18:44> Endocrine: Endocrine: Reports no additional endocrine complaints <JORDAN Reich Last Filed: 12/19/22 18:44> Hematologic/Lymphatic: Hematologic/Lymphatic: Reports no additional hematologic/lymphatic complaints <JORDAN Reich Last Filed: 12/19/22 18:44> Allergic/Immunologic: Allergic/Immunologic: Reports no additional allergic/immunologic complaints <JORDAN Reich Last Filed: 12/19/22 18:44> PMFSH Past Medical History Attestation statement: The following information was validated with the patient. <JORDAN Reich Last Filed: 12/19/22 18:44> Source: old records reviewed and nursing notes reviewed <JORDAN Reich Last Filed: 12/19/22 18:44> Medical History: Medical History Callahan esophagus Diabetes mellitus type 1 <JORDAN Reich - Last Filed: 12/19/22 18:44> Social History Social History: Social History Alcohol intake: never Smoked in Last 30 Days: No Use of substances other than those prescribed or required for medical reasons: Yes Substance Use Type: Marijuana Substance Use Frequency: Occasionally Any prior treatment program specific to substance use: No Advance Directives: No Advance Directives Information Provided: Yes <JORDAN Reich - Last Filed: 12/19/22 18:44> Physical Exam ED Vital Signs: Vital Signs - 24 hr 12/19/22 11:32 12/19/22 21:03 Temperature 98.8 F 98.6 F Pulse Rate 104 H 88 Respiratory Rate 20 16 Blood Pressure 124/63 104/59 L Pulse Oximetry 100 96 Oxygen Delivery Method Room Air Room Air BMI result Body Mass Index 0.0 <JORDAN Reich - Last Filed: 12/19/22 18:44> Vital Signs - 24 hr 12/19/22 11:32 12/19/22 21:03 Temperature 98.8 F 98.6 F Pulse Rate 104 H 88 Respiratory Rate 20 16 Blood Pressure 124/63 104/59 L Pulse Oximetry 100 96 Oxygen Delivery Method Room Air Room Air BMI result Body Mass Index 0.0 <JORDAN Camp - Last Filed: 12/19/22 21:09> Const General: cooperative, no acute distress, alert and awake <JORDAN Reich - Last Filed: 12/19/22 18:44> Nutritional Appearance: well nourished <JORDAN Reich - Last Filed: 12/19/22 18:44> Orientation/consciousness: patient oriented x3 <JORDAN Reich Last Filed: 12/19/22 18:44> Limitations: no limitations <JORDAN Reich Last Filed: 12/19/22 18:44> HENMT Head: Yes normal to inspection and Yes atraumatic <JORDAN Reich Last Filed: 12/19/22 18:44> Ears: hearing grossly normal bilaterally and external ears normal <JORDAN Reich Last Filed: 12/19/22 18:44> General nose exam: Normal external nose present, no nasal discharge noted and no epistaxis <JORDAN Reich - Last Filed: 12/19/22 18:44> Face and sinus: Yes normal facial exam, No abrasion and No laceration <Nieves Aguilar PA - Last Filed: 12/19/22 18:44> Mouth: Normal oral and palatal mucosa present, no drooling and no muffled voice <Nieves Aguilar PA - Last Filed: 12/19/22 18:44> Eyes General: appearance normal, both eyes and all related structures <Nieves Aguilar PA - Last Filed: 12/19/22 18:44> Periorbital: periorbital findings normal <JORDAN Reich - Last Filed: 12/19/22 18:44> Eyelids: Yes eyelids normal <Nieves Aguilar PA - Last Filed: 12/19/22 18:44> Conjunctivae: conjunctivae normal <JORDAN Reich - Last Filed: 12/19/22 18:44> Pupils: Equal, round and reactive pupils present <Nieves Aguilar PA - Last Filed: 12/19/22 18:44> EOM: EOMs intact bilaterally <JORDAN Reich - Last Filed: 12/19/22 18:44> Neck Neck: Yes normal visual inspection, Yes full ROM and Yes no lymphadenopathy <Nieves Aguilar PA - Last Filed: 12/19/22 18:44> Chest Chest palpation & inspection: normal inspection of the chest <JORDAN Reich - Last Filed: 12/19/22 18:44> Resp Effort & Inspection: normal respiratory effort and able to speak in complete sentences <Nieves Aguilar PA - Last Filed: 12/19/22 18:44> Auscultation: clear to auscultation bilaterally <JORDAN Reich - Last Filed: 12/19/22 18:44> Cardio Rate: regular rate <JORDAN Reich - Last Filed: 12/19/22 18:44> Rhythm: regular rhythm <JORDAN Reich - Last Filed: 12/19/22 18:44> GI Inspection: Yes normal to inspection <Nieves Aguilar PA - Last Filed: 12/19/22 18:44> Palpation (GI): Soft to palpation, not firm, nontender, no guarding and not rigid <Nieves Jeff PA - Last Filed: 12/19/22 18:44> Neuro General: patient oriented x3 and moves all extremities <Nieves JORDAN Aguilar - Last Filed: 12/19/22 18:44> Cranial nerves: Yes Equal, round and reactive pupils present <Nieves Aguilar PA - Last Filed: 12/19/22 18:44> Cognition (Neuro): normal cognition <Nieves Jeff PA - Last Filed: 12/19/22 18:44> Motor exam (neuro): 5/5 motor strength present throughout <Nieves Aguilar PA - Last Filed: 12/19/22 18:44> Sensory Exam: Normal double simultaneous stimulation for sensation <JORDAN Reich - Last Filed: 12/19/22 18:44> Coordination: [id number] test normal <Nieves Aguilar PA - Last Filed: 12/19/22 18:44> Extrem General: Yes normal to inspection, Yes full ROM and Yes capillary refill normal <Nieves Aguilar PA - Last Filed: 12/19/22 18:44> Psych Appearance: grossly normal <JORDAN Reich - Last Filed: 12/19/22 18:44> Mental Status: mental status grossly normal <JORDAN Reich - Last Filed: 12/19/22 18:44> Affect: normal affect <JORDAN Reich - Last Filed: 12/19/22 18:44> Attitude: cooperative <JORDAN Reich - Last Filed: 12/19/22 18:44> Thought process: Normal thought process present <JORDAN Reich - Last Filed: 12/19/22 18:44> Thought content: Normal thought content present <JORDAN Reich - Last Filed: 12/19/22 18:44> Insight: Good insight present (Psych) <JORDAN Reich - Last Filed: 12/19/22 18:44> Course Reevaluation(s) Reevaluation #1: anion gap improved to 14, bicarb of 20. glucose 200. no longer in DKA with closed anion gap give lantus 20 units now 2 hour overlap, stop insulin gtt at 11pm stable to admit to floor case d/w dr. english <JORDAN Camp - Last Filed: 12/19/22 21:09> Medications Administered Generic Name Dose Route Start Last Admin Trade Name Freq PRN Reason Stop Dose Admin Insulin Human Regular 100 unit in 100 mls @ 4 mls/hr 12/19/22 15:30 12/19/22 18:28 Myxredlin IVCONT 2 unit/hr .Q24H JELENA 2 mls/hr Titration Protocol 4 UNIT/HR Sodium Chloride 1,000 mls @ 200 mls/hr 12/19/22 17:00 12/19/22 17:04 Ns IVCONT 12/19/22 21:59 200 mls/hr .Q5H JELENA Administration Discontinued Medications Generic Name Dose Route Start Last Admin Trade Name Freq PRN Reason Stop Dose Admin Sodium Chloride 1,000 mls @ 999 mls/hr 12/19/22 11:45 12/19/22 13:55 Ns IV 12/19/22 12:45 Infused .Q1H1M JELENA Infusion Lactated Ringer's 1,000 mls @ 999 mls/hr 12/19/22 13:30 12/19/22 15:44 Lr IV 12/19/22 14:30 Infused .Q1H1M JELENA Infusion Insulin Human Regular 5 unit 12/19/22 13:26 12/19/22 14:00 Insulin Regular, Human 100 Unit/Ml 3 Ml Vial IVPUSH 12/19/22 13:27 5 unit ONCE ONE Administration Insulin Human Regular 5 unit 12/19/22 15:13 12/19/22 15:45 Insulin Regular, Human 100 Unit/Ml 3 Ml Vial IVPUSH 12/19/22 15:14 5 unit ONCE ONE Administration Iohexol 100 ml 12/19/22 15:09 12/19/22 15:10 Iohexol 350 Mg/Ml 100 Ml Infus..Btl IV 12/19/22 15:10 85 ml ONCE ONE Administration Lorazepam 1 mg 12/19/22 11:39 12/19/22 11:49 Lorazepam 2 Mg/Ml Vial IVPUSH 12/19/22 11:40 1 mg ONCE ONE Administration Metoclopramide HCl 10 mg 12/19/22 11:33 12/19/22 11:52 Metoclopramide Hcl 10 Mg/2 Ml Vial IVPUSH 12/19/22 11:34 10 mg ONCE ONE Administration Morphine Sulfate 4 mg 12/19/22 14:11 12/19/22 14:56 Morphine Sulfate 4 Mg/Ml Cartridge IVPUSH 12/19/22 14:12 4 mg ONCE ONE Administration Protocol Morphine Sulfate 4 mg 12/19/22 19:30 12/19/22 19:49 Morphine Sulfate 4 Mg/Ml Cartridge IVPUSH 12/19/22 19:31 4 mg ONCE ONE Administration Protocol Pantoprazole Sodium 40 mg 12/19/22 11:33 12/19/22 11:49 Pantoprazole Sodium 40 Mg/10 Ml Vial IVPUSH 12/19/22 11:34 40 mg ONCE ONE Administration <JORDAN Reich - Last Filed: 12/19/22 18:44> Medications Administered Generic Name Dose Route Start Last Admin Trade Name Freq PRN Reason Stop Dose Admin Insulin Human Regular 100 unit in 100 mls @ 4 mls/hr 12/19/22 15:30 12/19/22 18:28 Myxredlin IVCONT 2 unit/hr .Q24H JELENA 2 mls/hr Titration Protocol 4 UNIT/HR Sodium Chloride 1,000 mls @ 200 mls/hr 12/19/22 17:00 12/19/22 17:04 Ns IVCONT 12/19/22 21:59 200 mls/hr .Q5H JELENA Administration Discontinued Medications Generic Name Dose Route Start Last Admin Trade Name Freq PRN Reason Stop Dose Admin Sodium Chloride 1,000 mls @ 999 mls/hr 12/19/22 11:45 12/19/22 13:55 Ns IV 12/19/22 12:45 Infused .Q1H1M JELENA Infusion Lactated Ringer's 1,000 mls @ 999 mls/hr 12/19/22 13:30 12/19/22 15:44 Lr IV 12/19/22 14:30 Infused .Q1H1M JELENA Infusion Insulin Human Regular 5 unit 12/19/22 13:26 12/19/22 14:00 Insulin Regular, Human 100 Unit/Ml 3 Ml Vial IVPUSH 12/19/22 13:27 5 unit ONCE ONE Administration Insulin Human Regular 5 unit 12/19/22 15:13 12/19/22 15:45 Insulin Regular, Human 100 Unit/Ml 3 Ml Vial IVPUSH 12/19/22 15:14 5 unit ONCE ONE Administration Iohexol 100 ml 12/19/22 15:09 12/19/22 15:10 Iohexol 350 Mg/Ml 100 Ml Infus..Btl IV 12/19/22 15:10 85 ml ONCE ONE Administration Lorazepam 1 mg 12/19/22 11:39 12/19/22 11:49 Lorazepam 2 Mg/Ml Vial IVPUSH 12/19/22 11:40 1 mg ONCE ONE Administration Metoclopramide HCl 10 mg 12/19/22 11:33 12/19/22 11:52 Metoclopramide Hcl 10 Mg/2 Ml Vial IVPUSH 12/19/22 11:34 10 mg ONCE ONE Administration Morphine Sulfate 4 mg 12/19/22 14:11 12/19/22 14:56 Morphine Sulfate 4 Mg/Ml Cartridge IVPUSH 12/19/22 14:12 4 mg ONCE ONE Administration Protocol Morphine Sulfate 4 mg 12/19/22 19:30 12/19/22 19:49 Morphine Sulfate 4 Mg/Ml Cartridge IVPUSH 12/19/22 19:31 4 mg ONCE ONE Administration Protocol Pantoprazole Sodium 40 mg 12/19/22 11:33 12/19/22 11:49 Pantoprazole Sodium 40 Mg/10 Ml Vial IVPUSH 12/19/22 11:34 40 mg ONCE ONE Administration <JORDAN Camp - Last Filed: 12/19/22 21:09> Medical Decision Making Medical Decision Making MDM Narrative: Patient is a 27 year old assigned male at with a history of Type 1 DM presenting to the emergency department today with nausea and vomiting. Patient's physical exam was unremarkable. Patient's blood work showed an elevated sugar and evidence that the patient is in DKA. Patient's urine showed no acute process. Patient's EKG was unremarkable. Patient's abdomen/pelvis CT showed possible colitis. Patient's clinical presentation is not consistent with sepsis (@1841). I explained my physical exam findings as well as all test results to the patient. I answered all questions asked by the patient. Plan for the patient to be a medical admission after continued IV insulin / fluids and rechecking of chemistries. Patient signed out to Alanna GOMEZ. <JORDAN Reich Last Filed: 12/19/22 18:44> Differential Diagnosis Differential Diagnoses: The differential diagnosis associated with the presentation includes <JORDAN Reich - Last Filed: 12/19/22 18:44> DKG, hyperglycemia, colitis <JORDAN Reich - Last Filed: 12/19/22 18:44> Lab Data MDM Lab Attestation statement: I reviewed the patient's lab results. <JORDAN Reich - Last Filed: 12/19/22 18:44> Result Diagrams: 12/19/22 12:35 12/19/22 12:24 <JORDAN Reich - Last Filed: 12/19/22 18:44> Labs: Lab Results 12/19/22 12/19/22 12/19/22 Range/Units 12:24 12:35 12:36 WBC 14.1 H (4.8-10.8) X10*3/uL RBC 5.19 (4.60-5.80) X10*6/uL Hgb 13.0 L (14.0-18.0) g/dl Hct 40.3 L (42.0-52.0) % MCV 77.6 L (80.0-98.0) fL MCH 25.0 L (27.0-33.0) pg MCHC 32.3 (31.0-36.0) g/dl RDW 14.0 (11.0-16.0) % Plt Count 325 (160-400) X10*3/uL MPV 10.3 (9.4-12.4) fL Immature Gran % (Auto) 0.5 H (0.0-0.4) % Neut % (Auto) 88.9 H (45-73) % Lymph % (Auto) 7.9 L (20-40) % Dickinson % (Auto) 2.3 (2-11) % Eos % (Auto) 0.0 (0-4) % Baso % (Auto) 0.4 (0-2) % Lymph # (Auto) 1.1 L (1.2-4.9) X10*3/uL Dickinson # (Auto) 0.3 (0.1-1.2) X10*3/uL Eos # (Auto) 0.0 (0.0-0.4) X10*3/uL Baso # (Auto) 0.1 (0.0-0.2) X10*3/uL Abs Immat Gran (auto) 0.07 H (0.00-0.03) X10*3/uL Absolute Neuts (auto) 12.6 H (2.0-8.3) x10*3/uL Absolute Nucleated RBC 0.000 (0.0-0.012) X10*3/uL Nucleated RBC % (auto) 0.0 (0.0-0.2) /100WBC VBG pH 7.28 L (7.32-7.43) VBG pCO2 21 mmHg VBG pO2 97 mmHg VBG HCO3 10 L (22-26) mmol/L VBG O2 Saturation 98.0 % VBG Base Excess -13.8 mmol/L Sodium 136 (135-145) mmol/L Potassium 5.6 H (3.3-5.1) mmol/L Chloride 100 (96-108) mmol/L Carbon Dioxide 11 L (22-29) mmol/L Anion Gap 31 H (12-20) BUN 29 H (9-16) mg/dL Creatinine 1.18 (0.5-1.4) mg/dL Estim Creat Clear Calc TNP Estimated GFR > 60 POC Glucose (60-115) mg/dL Random Glucose 457 H* (60-115) mg/dL Calcium 9.7 D (8.4-10.2) mg/dL Magnesium 2.0 (1.6-2.6) mg/dL Total Bilirubin 0.9 (0.0-1.0) mg/dL AST 24 (5-37) U/L ALT 25 (0-40) U/L Alkaline Phosphatase 103 (39-117) U/L Ammonia (13-55) umol/L Total Protein 7.8 (6.5-8.0) g/dL Albumin 4.4 (3.5-5.0) g/dL Urine Color Urine Appearance Urine pH (5.0-9.0) Ur Specific [place] (1.005-1.025) Urine Protein (Neg-Trace) mg/dL Urine Glucose (UA) (Negative) mg/dL Urine Ketones (Negative) mg/dL Urine Blood (Negative) Urine Nitrite (Negative) Ur Leukocyte Esterase (Negative) Urine RBC (0-2) /HPF Urine WBC (0-5) /HPF Ur Squamous Epith Cells (0-2) /HPF Urine Bacteria (None Seen) Hyaline Casts (0-2) /LPF Urine Opiates Screen (Not Detect) Urine Fentanyl Screen (Not Detect) Ur Barbiturates Screen (Not Detect) Ur Phencyclidine Scrn (Not Detect) Ur Amphetamines Screen (Not Detect) U Benzodiazepines Scrn (Not Detect) Urine Cocaine Screen (Not Detect) U Marijuana (THC) Screen (Not Detect) Acetone, Qual Small H (Negative) 12/19/22 12/19/22 12/19/22 Range/Units 13:42 15:01 15:01 WBC (4.8-10.8) X10*3/uL RBC (4.60-5.80) X10*6/uL Hgb (14.0-18.0) g/dl Hct (42.0-52.0) % MCV (80.0-98.0) fL MCH (27.0-33.0) pg MCHC (31.0-36.0) g/dl RDW (11.0-16.0) % Plt Count (160-400) X10*3/uL MPV (9.4-12.4) fL Immature Gran % (Auto) (0.0-0.4) % Neut % (Auto) (45-73) % Lymph % (Auto) (20-40) % [place] % (Auto) (2-11) % Eos % (Auto) (0-4) % Baso % (Auto) (0-2) % Lymph # (Auto) (1.2-4.9) X10*3/uL [place] # (Auto) (0.1-1.2) X10*3/uL Eos # (Auto) (0.0-0.4) X10*3/uL Baso # (Auto) (0.0-0.2) X10*3/uL Abs Immat Gran (auto) (0.00-0.03) X10*3/uL Absolute Neuts (auto) (2.0-8.3) x10*3/uL Absolute Nucleated RBC (0.0-0.012) X10*3/uL Nucleated RBC % (auto) (0.0-0.2) /100WBC VBG pH (7.32-7.43) VBG pCO2 mmHg VBG pO2 mmHg VBG HCO3 (22-26) mmol/L VBG O2 Saturation % VBG Base Excess mmol/L Sodium (135-145) mmol/L Potassium (3.3-5.1) mmol/L Chloride (96-108) mmol/L Carbon Dioxide (22-29) mmol/L Anion Gap (12-20) BUN (9-16) mg/dL Creatinine (0.5-1.4) mg/dL Estim Creat Clear Calc Estimated GFR POC Glucose (60-115) mg/dL Random Glucose (60-115) mg/dL Calcium (8.4-10.2) mg/dL Magnesium (1.6-2.6) mg/dL Total Bilirubin (0.0-1.0) mg/dL AST (5-37) U/L ALT (0-40) U/L Alkaline Phosphatase (39-117) U/L Ammonia 31 (13-55) umol/L Total Protein (6.5-8.0) g/dL Albumin (3.5-5.0) g/dL Urine Color Yellow Urine Appearance Clear Urine pH 5.0 (5.0-9.0) Ur Specific [place] 1.025 (1.005-1.025) Urine Protein Negative (Neg-Trace) mg/dL Urine Glucose (UA) >=1000 H (Negative) mg/dL Urine Ketones >=160 (Negative) mg/dL Urine Blood Negative (Negative) Urine Nitrite Negative (Negative) Ur Leukocyte Esterase Negative (Negative) Urine RBC 0-2 (0-2) /HPF Urine WBC 0-5 (0-5) /HPF Ur Squamous Epith Cells 0-2 (0-2) /HPF Urine Bacteria None Seen (None Seen) Hyaline Casts 0-2 (0-2) /LPF Urine Opiates Screen Not Detected (Not Detect) Urine Fentanyl Screen Not Detected (Not Detect) Ur Barbiturates Screen Not Detected (Not Detect) Ur Phencyclidine Scrn Not Detected (Not Detect) Ur Amphetamines Screen Not Detected (Not Detect) U Benzodiazepines Scrn Not Detected (Not Detect) Urine Cocaine Screen Not Detected (Not Detect) U Marijuana (THC) Screen POSITIVE H (Not Detect) Acetone, Qual (Negative) 12/19/22 12/19/22 12/19/22 Range/Units 15:45 17:05 17:27 WBC (4.8-10.8) X10*3/uL RBC (4.60-5.80) X10*6/uL Hgb (14.0-18.0) g/dl Hct (42.0-52.0) % MCV (80.0-98.0) fL MCH (27.0-33.0) pg MCHC (31.0-36.0) g/dl RDW (11.0-16.0) % Plt Count (160-400) X10*3/uL MPV (9.4-12.4) fL Immature Gran % (Auto) (0.0-0.4) % Neut % (Auto) (45-73) % Lymph % (Auto) (20-40) % Dickinson % (Auto) (2-11) % Eos % (Auto) (0-4) % Baso % (Auto) (0-2) % Lymph # (Auto) (1.2-4.9) X10*3/uL [place] # (Auto) (0.1-1.2) X10*3/uL Eos # (Auto) (0.0-0.4) X10*3/uL Baso # (Auto) (0.0-0.2) X10*3/uL Abs Immat Gran (auto) (0.00-0.03) X10*3/uL Absolute Neuts (auto) (2.0-8.3) x10*3/uL Absolute Nucleated RBC (0.0-0.012) X10*3/uL Nucleated RBC % (auto) (0.0-0.2) /100WBC VBG pH (7.32-7.43) VBG pCO2 mmHg VBG pO2 mmHg VBG HCO3 (22-26) mmol/L VBG O2 Saturation % VBG Base Excess mmol/L Sodium 135 (135-145) mmol/L Potassium 5.1 (3.3-5.1) mmol/L Chloride 105 (96-108) mmol/L Carbon Dioxide 13 L (22-29) mmol/L Anion Gap 22 H (12-20) BUN 23 H (9-16) mg/dL Creatinine 1.07 (0.5-1.4) mg/dL Estim Creat Clear Calc TNP Estimated GFR > 60 POC Glucose 357 H* 292 H (60-115) mg/dL Random Glucose 290 H (60-115) mg/dL Calcium 9.0 D (8.4-10.2) mg/dL Magnesium (1.6-2.6) mg/dL Total Bilirubin 0.5 (0.0-1.0) mg/dL AST 29 (5-37) U/L ALT 25 (0-40) U/L Alkaline Phosphatase 97 (39-117) U/L Ammonia (13-55) umol/L Total Protein 7.2 (6.5-8.0) g/dL Albumin 4.2 (3.5-5.0) g/dL Urine Color Urine Appearance Urine pH (5.0-9.0) Ur Specific [place] (1.005-1.025) Urine Protein (Neg-Trace) mg/dL Urine Glucose (UA) (Negative) mg/dL Urine Ketones (Negative) mg/dL Urine Blood (Negative) Urine Nitrite (Negative) Ur Leukocyte Esterase (Negative) Urine RBC (0-2) /HPF Urine WBC (0-5) /HPF Ur Squamous Epith Cells (0-2) /HPF Urine Bacteria (None Seen) Hyaline Casts (0-2) /LPF Urine Opiates Screen (Not Detect) Urine Fentanyl Screen (Not Detect) Ur Barbiturates Screen (Not Detect) Ur Phencyclidine Scrn (Not Detect) Ur Amphetamines Screen (Not Detect) U Benzodiazepines Scrn (Not Detect) Urine Cocaine Screen (Not Detect) U Marijuana (THC) Screen (Not Detect) Acetone, Qual (Negative) 12/19/22 12/19/22 12/19/22 Range/Units 18:19 19:16 20:14 WBC (4.8-10.8) X10*3/uL RBC (4.60-5.80) X10*6/uL Hgb (14.0-18.0) g/dl Hct (42.0-52.0) % MCV (80.0-98.0) fL MCH (27.0-33.0) pg MCHC (31.0-36.0) g/dl RDW (11.0-16.0) % Plt Count (160-400) X10*3/uL MPV (9.4-12.4) fL Immature Gran % (Auto) (0.0-0.4) % Neut % (Auto) (45-73) % Lymph % (Auto) (20-40) % [place] % (Auto) (2-11) % Eos % (Auto) (0-4) % Baso % (Auto) (0-2) % Lymph # (Auto) (1.2-4.9) X10*3/uL [place] # (Auto) (0.1-1.2) X10*3/uL Eos # (Auto) (0.0-0.4) X10*3/uL Baso # (Auto) (0.0-0.2) X10*3/uL Abs Immat Gran (auto) (0.00-0.03) X10*3/uL Absolute Neuts (auto) (2.0-8.3) x10*3/uL Absolute Nucleated RBC (0.0-0.012) X10*3/uL Nucleated RBC % (auto) (0.0-0.2) /100WBC VBG pH (7.32-7.43) VBG pCO2 mmHg VBG pO2 mmHg VBG HCO3 (22-26) mmol/L VBG O2 Saturation % VBG Base Excess mmol/L Sodium 137 (135-145) mmol/L Potassium 4.4 (3.3-5.1) mmol/L Chloride 107 (96-108) mmol/L Carbon Dioxide 20 L (22-29) mmol/L Anion Gap 14 (12-20) BUN 20 H (9-16) mg/dL Creatinine 0.94 (0.5-1.4) mg/dL Estim Creat Clear Calc TNP Estimated GFR > 60 POC Glucose 221 H 209 H (60-115) mg/dL Random Glucose 208 H (60-115) mg/dL Calcium 8.8 (8.4-10.2) mg/dL Magnesium (1.6-2.6) mg/dL Total Bilirubin 0.5 (0.0-1.0) mg/dL AST 21 (5-37) U/L ALT 21 (0-40) U/L Alkaline Phosphatase 84 (39-117) U/L Ammonia (13-55) umol/L Total Protein 6.4 L (6.5-8.0) g/dL Albumin 3.8 (3.5-5.0) g/dL Urine Color Urine Appearance Urine pH (5.0-9.0) Ur Specific [place] (1.005-1.025) Urine Protein (Neg-Trace) mg/dL Urine Glucose (UA) (Negative) mg/dL Urine Ketones (Negative) mg/dL Urine Blood (Negative) Urine Nitrite (Negative) Ur Leukocyte Esterase (Negative) Urine RBC (0-2) /HPF Urine WBC (0-5) /HPF Ur Squamous Epith Cells (0-2) /HPF Urine Bacteria (None Seen) Hyaline Casts (0-2) /LPF Urine Opiates Screen (Not Detect) Urine Fentanyl Screen (Not Detect) Ur Barbiturates Screen (Not Detect) Ur Phencyclidine Scrn (Not Detect) Ur Amphetamines Screen (Not Detect) U Benzodiazepines Scrn (Not Detect) Urine Cocaine Screen (Not Detect) U Marijuana (THC) Screen (Not Detect) Acetone, Qual (Negative) <JORDAN Reich - Last Filed: 12/19/22 18:44> Lab Results 12/19/22 12/19/22 12/19/22 Range/Units 12:24 12:35 12:36 WBC 14.1 H (4.8-10.8) X10*3/uL RBC 5.19 (4.60-5.80) X10*6/uL Hgb 13.0 L (14.0-18.0) g/dl Hct 40.3 L (42.0-52.0) % MCV 77.6 L (80.0-98.0) fL MCH 25.0 L (27.0-33.0) pg MCHC 32.3 (31.0-36.0) g/dl RDW 14.0 (11.0-16.0) % Plt Count 325 (160-400) X10*3/uL MPV 10.3 (9.4-12.4) fL Immature Gran % (Auto) 0.5 H (0.0-0.4) % Neut % (Auto) 88.9 H (45-73) % Lymph % (Auto) 7.9 L (20-40) % Dickinson % (Auto) 2.3 (2-11) % Eos % (Auto) 0.0 (0-4) % Baso % (Auto) 0.4 (0-2) % Lymph # (Auto) 1.1 L (1.2-4.9) X10*3/uL Dickinson # (Auto) 0.3 (0.1-1.2) X10*3/uL Eos # (Auto) 0.0 (0.0-0.4) X10*3/uL Baso # (Auto) 0.1 (0.0-0.2) X10*3/uL Abs Immat Gran (auto) 0.07 H (0.00-0.03) X10*3/uL Absolute Neuts (auto) 12.6 H (2.0-8.3) x10*3/uL Absolute Nucleated RBC 0.000 (0.0-0.012) X10*3/uL Nucleated RBC % (auto) 0.0 (0.0-0.2) /100WBC VBG pH 7.28 L (7.32-7.43) VBG pCO2 21 mmHg VBG pO2 97 mmHg VBG HCO3 10 L (22-26) mmol/L VBG O2 Saturation 98.0 % VBG Base Excess -13.8 mmol/L Sodium 136 (135-145) mmol/L Potassium 5.6 H (3.3-5.1) mmol/L Chloride 100 (96-108) mmol/L Carbon Dioxide 11 L (22-29) mmol/L Anion Gap 31 H (12-20) BUN 29 H (9-16) mg/dL Creatinine 1.18 (0.5-1.4) mg/dL Estim Creat Clear Calc TNP Estimated GFR > 60 POC Glucose (60-115) mg/dL Random Glucose 457 H* (60-115) mg/dL Calcium 9.7 D (8.4-10.2) mg/dL Magnesium 2.0 (1.6-2.6) mg/dL Total Bilirubin 0.9 (0.0-1.0) mg/dL AST 24 (5-37) U/L ALT 25 (0-40) U/L Alkaline Phosphatase 103 (39-117) U/L Ammonia (13-55) umol/L Total Protein 7.8 (6.5-8.0) g/dL Albumin 4.4 (3.5-5.0) g/dL Urine Color Urine Appearance Urine pH (5.0-9.0) Ur Specific [place] (1.005-1.025) Urine Protein (Neg-Trace) mg/dL Urine Glucose (UA) (Negative) mg/dL Urine Ketones (Negative) mg/dL Urine Blood (Negative) Urine Nitrite (Negative) Ur Leukocyte Esterase (Negative) Urine RBC (0-2) /HPF Urine WBC (0-5) /HPF Ur Squamous Epith Cells (0-2) /HPF Urine Bacteria (None Seen) Hyaline Casts (0-2) /LPF Urine Opiates Screen (Not Detect) Urine Fentanyl Screen (Not Detect) Ur Barbiturates Screen (Not Detect) Ur Phencyclidine Scrn (Not Detect) Ur Amphetamines Screen (Not Detect) U Benzodiazepines Scrn (Not Detect) Urine Cocaine Screen (Not Detect) U Marijuana (THC) Screen (Not Detect) Acetone, Qual Small H (Negative) 12/19/22 12/19/22 12/19/22 Range/Units 13:42 15:01 15:01 WBC (4.8-10.8) X10*3/uL RBC (4.60-5.80) X10*6/uL Hgb (14.0-18.0) g/dl Hct (42.0-52.0) % MCV (80.0-98.0) fL MCH (27.0-33.0) pg MCHC (31.0-36.0) g/dl RDW (11.0-16.0) % Plt Count (160-400) X10*3/uL MPV (9.4-12.4) fL Immature Gran % (Auto) (0.0-0.4) % Neut % (Auto) (45-73) % Lymph % (Auto) (20-40) % Dickinson % (Auto) (2-11) % Eos % (Auto) (0-4) % Baso % (Auto) (0-2) % Lymph # (Auto) (1.2-4.9) X10*3/uL Dickinson # (Auto) (0.1-1.2) X10*3/uL Eos # (Auto) (0.0-0.4) X10*3/uL Baso # (Auto) (0.0-0.2) X10*3/uL Abs Immat Gran (auto) (0.00-0.03) X10*3/uL Absolute Neuts (auto) (2.0-8.3) x10*3/uL Absolute Nucleated RBC (0.0-0.012) X10*3/uL Nucleated RBC % (auto) (0.0-0.2) /100WBC VBG pH (7.32-7.43) VBG pCO2 mmHg VBG pO2 mmHg VBG HCO3 (22-26) mmol/L VBG O2 Saturation % VBG Base Excess mmol/L Sodium (135-145) mmol/L Potassium (3.3-5.1) mmol/L Chloride (96-108) mmol/L Carbon Dioxide (22-29) mmol/L Anion Gap (12-20) BUN (9-16) mg/dL Creatinine (0.5-1.4) mg/dL Estim Creat Clear Calc Estimated GFR POC Glucose (60-115) mg/dL Random Glucose (60-115) mg/dL Calcium (8.4-10.2) mg/dL Magnesium (1.6-2.6) mg/dL Total Bilirubin (0.0-1.0) mg/dL AST (5-37) U/L ALT (0-40) U/L Alkaline Phosphatase (39-117) U/L Ammonia 31 (13-55) umol/L Total Protein (6.5-8.0) g/dL Albumin (3.5-5.0) g/dL Urine Color Yellow Urine Appearance Clear Urine pH 5.0 (5.0-9.0) Ur Specific [place] 1.025 (1.005-1.025) Urine Protein Negative (Neg-Trace) mg/dL Urine Glucose (UA) >=1000 H (Negative) mg/dL Urine Ketones >=160 (Negative) mg/dL Urine Blood Negative (Negative) Urine Nitrite Negative (Negative) Ur Leukocyte Esterase Negative (Negative) Urine RBC 0-2 (0-2) /HPF Urine WBC 0-5 (0-5) /HPF Ur Squamous Epith Cells 0-2 (0-2) /HPF Urine Bacteria None Seen (None Seen) Hyaline Casts 0-2 (0-2) /LPF Urine Opiates Screen Not Detected (Not Detect) Urine Fentanyl Screen Not Detected (Not Detect) Ur Barbiturates Screen Not Detected (Not Detect) Ur Phencyclidine Scrn Not Detected (Not Detect) Ur Amphetamines Screen Not Detected (Not Detect) U Benzodiazepines Scrn Not Detected (Not Detect) Urine Cocaine Screen Not Detected (Not Detect) U Marijuana (THC) Screen POSITIVE H (Not Detect) Acetone, Qual (Negative) 12/19/22 12/19/22 12/19/22 Range/Units 15:45 17:05 17:27 WBC (4.8-10.8) X10*3/uL RBC (4.60-5.80) X10*6/uL Hgb (14.0-18.0) g/dl Hct (42.0-52.0) % MCV (80.0-98.0) fL MCH (27.0-33.0) pg MCHC (31.0-36.0) g/dl RDW (11.0-16.0) % Plt Count (160-400) X10*3/uL MPV (9.4-12.4) fL Immature Gran % (Auto) (0.0-0.4) % Neut % (Auto) (45-73) % Lymph % (Auto) (20-40) % Dickinson % (Auto) (2-11) % Eos % (Auto) (0-4) % Baso % (Auto) (0-2) % Lymph # (Auto) (1.2-4.9) X10*3/uL [place] # (Auto) (0.1-1.2) X10*3/uL Eos # (Auto) (0.0-0.4) X10*3/uL Baso # (Auto) (0.0-0.2) X10*3/uL Abs Immat Gran (auto) (0.00-0.03) X10*3/uL Absolute Neuts (auto) (2.0-8.3) x10*3/uL Absolute Nucleated RBC (0.0-0.012) X10*3/uL Nucleated RBC % (auto) (0.0-0.2) /100WBC VBG pH (7.32-7.43) VBG pCO2 mmHg VBG pO2 mmHg VBG HCO3 (22-26) mmol/L VBG O2 Saturation % VBG Base Excess mmol/L Sodium 135 (135-145) mmol/L Potassium 5.1 (3.3-5.1) mmol/L Chloride 105 (96-108) mmol/L Carbon Dioxide 13 L (22-29) mmol/L Anion Gap 22 H (12-20) BUN 23 H (9-16) mg/dL Creatinine 1.07 (0.5-1.4) mg/dL Estim Creat Clear Calc TNP Estimated GFR > 60 POC Glucose 357 H* 292 H (60-115) mg/dL Random Glucose 290 H (60-115) mg/dL Calcium 9.0 D (8.4-10.2) mg/dL Magnesium (1.6-2.6) mg/dL Total Bilirubin 0.5 (0.0-1.0) mg/dL AST 29 (5-37) U/L ALT 25 (0-40) U/L Alkaline Phosphatase 97 (39-117) U/L Ammonia (13-55) umol/L Total Protein 7.2 (6.5-8.0) g/dL Albumin 4.2 (3.5-5.0) g/dL Urine Color Urine Appearance Urine pH (5.0-9.0) Ur Specific [place] (1.005-1.025) Urine Protein (Neg-Trace) mg/dL Urine Glucose (UA) (Negative) mg/dL Urine Ketones (Negative) mg/dL Urine Blood (Negative) Urine Nitrite (Negative) Ur Leukocyte Esterase (Negative) Urine RBC (0-2) /HPF Urine WBC (0-5) /HPF Ur Squamous Epith Cells (0-2) /HPF Urine Bacteria (None Seen) Hyaline Casts (0-2) /LPF Urine Opiates Screen (Not Detect) Urine Fentanyl Screen (Not Detect) Ur Barbiturates Screen (Not Detect) Ur Phencyclidine Scrn (Not Detect) Ur Amphetamines Screen (Not Detect) U Benzodiazepines Scrn (Not Detect) Urine Cocaine Screen (Not Detect) U Marijuana (THC) Screen (Not Detect) Acetone, Qual (Negative) 12/19/22 12/19/22 12/19/22 Range/Units 18:19 19:16 20:14 WBC (4.8-10.8) X10*3/uL RBC (4.60-5.80) X10*6/uL Hgb (14.0-18.0) g/dl Hct (42.0-52.0) % MCV (80.0-98.0) fL MCH (27.0-33.0) pg MCHC (31.0-36.0) g/dl RDW (11.0-16.0) % Plt Count (160-400) X10*3/uL MPV (9.4-12.4) fL Immature Gran % (Auto) (0.0-0.4) % Neut % (Auto) (45-73) % Lymph % (Auto) (20-40) % Dickinson % (Auto) (2-11) % Eos % (Auto) (0-4) % Baso % (Auto) (0-2) % Lymph # (Auto) (1.2-4.9) X10*3/uL [place] # (Auto) (0.1-1.2) X10*3/uL Eos # (Auto) (0.0-0.4) X10*3/uL Baso # (Auto) (0.0-0.2) X10*3/uL Abs Immat Gran (auto) (0.00-0.03) X10*3/uL Absolute Neuts (auto) (2.0-8.3) x10*3/uL Absolute Nucleated RBC (0.0-0.012) X10*3/uL Nucleated RBC % (auto) (0.0-0.2) /100WBC VBG pH (7.32-7.43) VBG pCO2 mmHg VBG pO2 mmHg VBG HCO3 (22-26) mmol/L VBG O2 Saturation % VBG Base Excess mmol/L Sodium 137 (135-145) mmol/L Potassium 4.4 (3.3-5.1) mmol/L Chloride 107 (96-108) mmol/L Carbon Dioxide 20 L (22-29) mmol/L Anion Gap 14 (12-20) BUN 20 H (9-16) mg/dL Creatinine 0.94 (0.5-1.4) mg/dL Estim Creat Clear Calc TNP Estimated GFR > 60 POC Glucose 221 H 209 H (60-115) mg/dL Random Glucose 208 H (60-115) mg/dL Calcium 8.8 (8.4-10.2) mg/dL Magnesium (1.6-2.6) mg/dL Total Bilirubin 0.5 (0.0-1.0) mg/dL AST 21 (5-37) U/L ALT 21 (0-40) U/L Alkaline Phosphatase 84 (39-117) U/L Ammonia (13-55) umol/L Total Protein 6.4 L (6.5-8.0) g/dL Albumin 3.8 (3.5-5.0) g/dL Urine Color Urine Appearance Urine pH (5.0-9.0) Ur Specific [place] (1.005-1.025) Urine Protein (Neg-Trace) mg/dL Urine Glucose (UA) (Negative) mg/dL Urine Ketones (Negative) mg/dL Urine Blood (Negative) Urine Nitrite (Negative) Ur Leukocyte Esterase (Negative) Urine RBC (0-2) /HPF Urine WBC (0-5) /HPF Ur Squamous Epith Cells (0-2) /HPF Urine Bacteria (None Seen) Hyaline Casts (0-2) /LPF Urine Opiates Screen (Not Detect) Urine Fentanyl Screen (Not Detect) Ur Barbiturates Screen (Not Detect) Ur Phencyclidine Scrn (Not Detect) Ur Amphetamines Screen (Not Detect) U Benzodiazepines Scrn (Not Detect) Urine Cocaine Screen (Not Detect) U Marijuana (THC) Screen (Not Detect) Acetone, Qual (Negative) <JORDAN Camp - Last Filed: 12/19/22 21:09> Independent Interpretation I performed an independent interpretation of an: EKG <JORDAN Reich - Last Filed: 12/19/22 18:44> Interpretation: Vent. Rate: 109 BPM ? ? Atrial Rate: 109 BPM P-R Int: 126 ms? QRS Dur: 098 ms QT Int: 340 ms ? ? ? P-R-T Axes: 085 -42 063 degrees QTc Int: 457 ms ? Sinus tachycardia Possible Left atrial enlargement Left axis deviation Abnormal ECG When compared with ECG of 29-SEP-2022 07:56, ST no longer depressed in Inferior leads ? Electronically Signed By:GRAHAM ELIAS MD Dictated By: Graham Elias MD Signed By: Electronically signed by Graham Elias MD 12/19/22 2849 <JORDAN Reich - Last Filed: 12/19/22 18:44> Radiology Impression Radiologist Impression: My interpretation is in agreement with the radiologist's impression of this imaging study. EXAMINATION: CT ABDOMEN AND PELVIS WITH CONTRAST? CLINICAL INFORMATION: Pain, nausea and vomiting? COMPARISON: Previous CT of the abdomen and pelvis July 2010 TECHNIQUE: Multidetector volumetric images were obtained from the superior aspect of the liver through the pubic symphysis following administration 85 mL of Omnipaque 350 intravenous contrast. Sagittal and coronal reformatted images were obtained on the technologist's workstation.? Oral contrast: Yes This CT examination was performed using dose optimization techniques as appropriate, variously including the following: *Automated exposure control *Adjustment of mA and/or kV according to patient size (this includes techniques or standardized protocols for targeted exams where dose is matched to indication/reason for exam; i.e. extremities or head) *Use of iterative reconstruction technique DLP: 402 mGy-cm FINDINGS: LUNG BASES: The visualized lung bases are unremarkable.? LIVER, GALLBLADDER, AND BILIARY TREE: The liver is normal in size, and shape. Liver slightly low in attenuation. No focal hepatic lesion or biliary ductal dilatation is present. The gallbladder is unremarkable with no evidence of radiopaque gallstones, gallbladder wall thickening, or obvious pericholecystic inflammatory changes.? PANCREAS: Unremarkable.? SPLEEN: Unremarkable.? ADRENAL GLANDS: Unremarkable.? KIDNEYS AND URETERS: The kidneys are normal in size, shape, and attenuation. No hydronephrosis, hydroureter, or calculi seen. No perinephric stranding. ? BLADDER: Unremarkable.? GASTROINTESTINAL TRACT: There are fluid-filled loops of small bowel. There is question of mild wall thickening of the colon versus changes due to underdistention. No dilated loops of bowel or air-fluid levels to suggest obstruction. The appendix appears to have been removed. There is stomach is unremarkable. ABDOMINAL WALL: No significant hernia is appreciated.? LYMPH NODES: Normal. VASCULAR: Unremarkable. PELVIC VISCERA: Unremarkable.? OSSEOUS STRUCTURES: Unremarkable.? CT/CT abdomen pelvis w IV con IMPRESSION: Mild fatty infiltration of the liver. Fluid-filled loops of small bowel and question mild wall thickening of the colon/colitis versus changes due to underdistention. ? Fleischner guidelines were followed. Dictated By: Emilie Suarez MD Signed By: Electronically signed by Emilie Suarez MD 12/19/22 1554 <JORDAN Reich - Last Filed: 12/19/22 18:44> Discharge Plan Discharge Clinical Impression: Hyperglycemia, DKA (diabetic ketoacidosis), Colitis <JORDAN Reich - Last Filed: 12/19/22 18:44> Patient Disposition: Admitted As Inpatient <JORDAN Reich - Last Filed: 12/19/22 18:44> Prescriptions: No Action insulin aspart U-100 [Novolog FlexPen U-100 Insulin] 100 unit/mL (3 mL) insulin pen See Rx Instructions .ROUTE .COMPLEX Rx Instructions: 1 unit of insulin for every 35 units over 135 insulin glargine [Lantus Solostar U-100 Insulin] 100 unit/mL (3 mL) insulin pen 20 unit subcut BEDTIME promethazine 25 mg tablet 25 mg PO Q4H PRN (Reason: nausea and vomiting) pantoprazole [Protonix] 40 mg tablet,delayed release (DR/EC) 40 mg PO DAILY@0630 <JORDAN Reich - Last Filed: 12/19/22 18:44>
[2022-12-19] MEDS: Pantoprazole Sodium 40 MG/10 ML VIAL IVPUSH (11:49)
[2022-12-19] MEDS: LORazepam 2 MG/ML VIAL 1 MG IVPUSH (11:49)
[2022-12-19] MEDS: Metoclopramide HCl 10 MG/2 ML VIAL IVPUSH (11:52)
[2022-12-19 11:53] VITALS: BP 114/76; PULSE 109; O2SAT 100
[2022-12-19] MEDS: 0.9 % Sodium Chloride 1,000 ML 999 ML IV (11:55)
[2022-12-19 12:38] LABS: MANUAL DIFF FLAG NO
[2022-12-19 12:41] LABS: Basophils Absolute Auto 0.1 X10*3/uL (0.0-0.2); Basophils Percent Auto 0.4 % (0-2); Hematocrit 40.3 % (42.0-52.0); Imm Gran Abs Auto 0.07 X10*3/uL (0.00-0.03); Imm Gran Pct Auto 0.5 % (0.0-0.4); Lymphocytes Absolute Auto 1.1 X10*3/uL (1.2-4.9); Lymphocytes Percent Auto 7.9 % (20-40); Mean Corpuscular HGB Conc 32.3 g/dl (31.0-36.0); Mean Corpuscular Volume 77.6 fL (80.0-98.0); Mean Platelet Volume 10.3 fL (9.4-12.4); Monocytes Absolute Auto 0.3 X10*3/uL (0.1-1.2); Monocytes Percent Auto 2.3 % (2-11); Neutrophils Absolute Auto 12.6 x10*3/uL (2.0-8.3); Neutrophils Percent Auto 88.9 % (45-73); Platelet Count 325 X10*3/uL (160-400); Red Blood Count 5.19 X10*6/uL (4.60-5.80); Venous Blood Gas Refer to POC result; White Blood Count 14.1 X10*3/uL (4.8-10.8)
[2022-12-19 12:42] LABS: VBG Base Excess -13.8 mmol/L; VBG HCO3 10 mmol/L (22-26); VBG pCO2 21 mmHg; VBG pH 7.28 (7.32-7.43); VBG pO2 97 mmHg
[2022-12-19 13:14] LABS: Alanine Aminotransferase 25 U/L (0-40); Albumin Level 4.4 g/dL (3.5-5.0); Alkaline Phosphatase 103 U/L (39-117); Anion Gap 31 (12-20); Aspartate Amino Transferase 24 U/L (5-37); Bilirubin Total 0.9 mg/dL (0.0-1.0); Blood Urea Nitrogen 29 mg/dL (9-16); Calcium 9.7 mg/dL (8.4-10.2); Carbon Dioxide 11 mmol/L (22-29); Chloride 100 mmol/L (96-108); Estimated Glomerular Filt Rate > 60; Glucose Random 457 mg/dL (60-115); Potassium 5.6 mmol/L (3.3-5.1); Sodium 136 mmol/L (135-145); Total Protein 7.8 g/dL (6.5-8.0)
--- NOTE | 2022-12-19 13:15 | PC.NURSE ---
Phone call came from Lab with a critical result. Glucose 457. provider aware.
[2022-12-19 13:45] LABS: Acetone, serum QL Small (Negative)
[2022-12-19] MEDS: Lactated Ringers 1,000 ML 999 ML IV (14:00)
[2022-12-19] MEDS: Insulin Regular, Human 100 UNIT/ML 3 ML VIAL IVPUSH ×2 (14:00→15:45)
[2022-12-19 14:10] LABS: Ammonia 31 umol/L (13-55)
[2022-12-19] MEDS: Morphine Sulfate 4 MG/ML CARTRIDGE IVPUSH ×2 (14:56→19:49)
[2022-12-19] MEDS: iohexoL 350 MG/ML 100 ML INFUS..BTL IV (15:10)
--- NOTE | 2022-12-19 15:10 | PC.NURSE ---
pt medicated per OCT, via 20g iv in left dorsal foot. infusing 1L LR per order, 5uits humalog given, morphone 4mg given for 9/10 abdomninal pain
[2022-12-19 15:33] LABS: Appearance Urine Clear; Color Urine Yellow; Glucose Urine UA >=1000 mg/dL (Negative); Leukocyte Esterase Urine Negative (Negative); Nitrite Urine Negative (Negative); Specific Gravity - Urine 1.025 (1.005-1.025); UMIC TRIGGER UACC YES; Urine Blood Negative (Negative); Urine Ketones >=160 mg/dL (Negative); Urine Protein Negative (Neg-Trace)
[2022-12-19 15:38] LABS: Amphetamine Screen Urine Not Detected (Not Detect); Bacteria Urine None Seen (None Seen); Barbiturates, Urine Not Detected (Not Detect); Benzodiazepines Screen Urine Not Detected (Not Detect); Cannabinoid Screen Urine POSITIVE (Not Detect); Cocaine Screen Urine Not Detected (Not Detect); Fentanyl, urine Not Detected (Not Detect); Hyaline Casts Urine 0-2 /LPF (0-2); Opiate Screen Urine Not Detected (Not Detect); Phencyclidine Screen Urine Not Detected (Not Detect); RBC Urine 0-2 /HPF (0-2); Squamous Epithelial Cell Urine 0-2 /HPF (0-2); WBC Urine 0-5 /HPF (0-5)
[2022-12-19 15:49] LABS: Glucose, Whole Blood 357 mg/dL (60-115)
[2022-12-19] MEDS: Insulin Regular/NS 100 UNIT/100 ML PLAST..BAG IVCONT (15:50)
--- NOTE | 2022-12-19 16:43 | PHA.MEDREC ---
Pharmacy Consult ? Medication Reconciliation Pharmacy has completed the medication reconciliation. PT SAID HE LAST TOOK SOME THINGS AROUND 1 AM TODAY
[2022-12-19] MEDS: 0.9 % Sodium Chloride 1,000 ML 200 ML IVCONT (17:04)
--- NOTE | 2022-12-19 17:04 | PC.NURSE ---
pt medicated per OCT pt started on Insulin drip 4u/hr, 1l NS infusing @200ml/hour
[2022-12-19 17:09] LABS: Glucose, Whole Blood 292 mg/dL (60-115)
--- NOTE | 2022-12-19 17:25 | PC.NURSE ---
pt medicated per MAR POC now 292 insulin tapered to 3u/hr chemistry pending, call brand within reach
[2022-12-19 18:24] LABS: Glucose, Whole Blood 221 mg/dL (60-115)
[2022-12-19 18:54] LABS: Alanine Aminotransferase 25 U/L (0-40); Albumin Level 4.2 g/dL (3.5-5.0); Alkaline Phosphatase 97 U/L (39-117); Anion Gap 22 (12-20); Aspartate Amino Transferase 29 U/L (5-37); Bilirubin Total 0.5 mg/dL (0.0-1.0); Blood Urea Nitrogen 23 mg/dL (9-16); Carbon Dioxide 13 mmol/L (22-29); Chloride 105 mmol/L (96-108); Estimated Glomerular Filt Rate > 60; Glucose Random 290 mg/dL (60-115); Potassium 5.1 mmol/L (3.3-5.1); Sodium 135 mmol/L (135-145); Total Protein 7.2 g/dL (6.5-8.0)
--- NOTE | 2022-12-19 19:29 | PC.NURSE ---
POC 221 at this time- holding order for D5W NS until POC recheck obtained. pt continues on 2U/hr insulin drip
[2022-12-19 20:04] LABS: Glucose, Whole Blood 209 mg/dL (60-115)
[2022-12-19 20:37] LABS: Alanine Aminotransferase 21 U/L (0-40); Albumin Level 3.8 g/dL (3.5-5.0); Alkaline Phosphatase 84 U/L (39-117); Anion Gap 14 (12-20); Aspartate Amino Transferase 21 U/L (5-37); Bilirubin Total 0.5 mg/dL (0.0-1.0); Blood Urea Nitrogen 20 mg/dL (9-16); Calcium 8.8 mg/dL (8.4-10.2); Carbon Dioxide 20 mmol/L (22-29); Chloride 107 mmol/L (96-108); Estimated Glomerular Filt Rate > 60; Glucose Random 208 mg/dL (60-115); Potassium 4.4 mmol/L (3.3-5.1); Sodium 137 mmol/L (135-145); Total Protein 6.4 g/dL (6.5-8.0)
--- NOTE | 2022-12-19 20:55 | PC.NURSE ---
pt medicated for 8/10 abdominal pain, parents at bedside understands that plan is to admit patient once pt is stabilized to go to the floor. call brand within reach [facility]
[2022-12-19 21:03] VITALS: BP 104/59; PULSE 88; RESP 16; TEMP 37; O2SAT 96
[2022-12-19 21:19] VITALS: BMI 28.2
[2022-12-19 21:51] LABS: Glucose, Whole Blood 146 mg/dL (60-115)
[2022-12-19] MEDS: Dextrose 5 % and 0.45 % NaCl 1,000 ML 150 ML IVCONT (21:58)
[2022-12-19] MEDS: Insulin Glargine,Hum.rec.anlog 100 UNIT/ML 10 ML VIAL 20 UNIT SUBCUT (22:05)
--- NOTE | 2022-12-19 22:43 | PC.NURSE ---
called pt mother per request- no answer left message on [phone]
[2022-12-19 22:50] LABS: Glucose, Whole Blood 188 mg/dL (60-115)
[2022-12-19 23:36] LABS: Lipase 5 U/L (8-78)
--- NOTE | 2022-12-19 23:45 | PC.NURSE ---
PT MOVED INTO ROOM 1 FROM [facility]. ASSUMED CARE OF THIS PT AT 23:30. REPORT RECEIVED FROM PHILLY MELTON. PT ON AN INSULIN DRIP
--- NOTE | 2022-12-19 23:50 | PC.NURSE ---
pt relocated from emc 4 to ed bed 1 d/t emc closing. Upon arrival to bedside pt found to be rocking/shivering and RN asked if he was cold, pt declined and stated he has been ringing for pain medicine for 30 minutes wihtout assistance. RN apologized for the inconvenience and will make MD aware of patient's request and report of pain. IV line to the foot continues to infuse wihtout s/s of complications noted to insertion site
[2022-12-20] MEDS: Morphine Sulfate 10 MG/ML CARTRIDGE 4 MG IVPUSH (00:14)
[2022-12-20 00:19] LABS: Glucose, Whole Blood 204 mg/dL (60-115)
[2022-12-20 00:21] VITALS: BP 118/66; PULSE 83; RESP 18; TEMP 37.1; O2SAT 100
[2022-12-20 00:24] LABS: Venous Blood Gas Refer to POC result
[2022-12-20 00:25] LABS: VBG Base Excess -4.6 mmol/L; VBG HCO3 18 mmol/L (22-26); VBG pCO2 27 mmHg; VBG pH 7.42 (7.32-7.43); VBG pO2 118 mmHg
--- NOTE | 2022-12-20 00:25 | PC.NURSE ---
This RN called MD Spence to inquire about insulin drip and when to discontinue since anion gap is closed (14). MD Spence informed this RN to discontinue insulin drip and D5 infusions now. she will order normal saline instead.
--- NOTE | 2022-12-20 00:30 | P.HPHOSP_ITS ---
History of Present Illness Date of Service: 12/20/22 Chief Complaint: abd pain, n,vomiting a 7-year-old male with past medical history of diabetes insulin dependent, with abdominal pain, nausea and vomiting, the initially started on 12/18, and worsened. Patient reports that he was seen in the hospital on 12/18, at that time was not in DKA, was found to have gastroparesis, given script for Phenergan and after feeling slightly better he was sent home. He returns stating worsening generalized abdominal pain, nausea, vomiting, decreased p.o. intake, upon checking glucose patient was found to have glucose of 457 with an anion gap and a bicarb of 11 patient states that he did not take his Lantus when he got home on 12/18 vitals otherwise unremarkable Labs are significant for WBC count of 14.1, pH of 7.28, potassium of 5.6, glucose of 457 that is now improved abdomen pelvic CT shows fluid-filled loops of small bowel and question of mild wall thickening of the colon/ colitis versus changes due to under distension patient was placed on insulin drip, managed in the ED, transitioned after having his gap closed x2, and will be admitted for further management Review of Systems Review of Systems: Yes all other systems are reviewed and are negative [facility] Medical History Gates esophagus Diabetes mellitus type 1 Social History Alcohol intake: never Smoked in Last 30 Days: No Use of substances other than those prescribed or required for medical reasons: Yes Substance Use Type: Marijuana Substance Use Frequency: Occasionally Any prior treatment program specific to substance use: No Advance Directives: No Advance Directives Information Provided: Yes Meds Allergies Allergy/AdvReac Type Severity Reaction Status Date / Time diphenhydramine Allergy Anaphylaxis Verified 10/28/22 22:41 [From Benadryl] haloperidol [From Haldol] Allergy Difficulty Verified 10/28/22 22:41 Swallowing Active Medications: Current Medications Glucose (Glucose Gel 15 Gm Gel..Gram.) 15 gm PO Q15M PRN; Protocol PRN Reason: per Hypoglycemia Standing Ord. Sodium Chloride (Ns) 1,000 mls @ 125 mls/hr IVCONT .Q8H JELENA Dextrose (D10) 250 mls @ 750 mls/hr IV Q15M PRN; Protocol PRN Reason: per Hypoglycemia Standing Ord. Insulin Glargine (Insulin Glargine,Hum.Rec.Anlog 100 Unit/Ml 10 Ml Vial) 20 unit SUBCUT BEDTIME JELENA Insulin Human Lispro (Insulin Lispro 100 Unit/Ml 3 Ml Vial) 0 unit SUBCUT QIDACHS JELENA; Protocol Morphine Sulfate (Morphine Sulfate 10 Mg/Ml Cartridge) 4 mg IVPUSH Q4H PRN; Protocol PRN Reason: Pain, Severe (Pain Scale 8-10) Last Admin: 12/20/22 00:14 Dose: 4 mg Omeprazole (Omeprazole 20 Mg Capsule.Dr) 20 mg PO DAILY@0630 JELENA Ondansetron HCl (Ondansetron Hcl 4 Mg/2 Ml Vial) 4 mg IVPUSH Q8H PRN PRN Reason: nausea vomiting Pharmacy Consult (Consult Rx Perform Med Rec) 1 each MISCELLANE ONCE PRN PRN Reason: Consult order Home Medications Medication Instructions Recorded Confirmed Last Taken Type insulin aspart U-100 100 unit/mL See Rx Instructions .Route .COMPLEX 12/19/22 12/19/22 Unknown History (3 mL) subcutaneous pen (Novolog FlexPen U-100 Insulin aspart) insulin glargine 100 unit/mL (3 20 unit subcut BEDTIME 12/19/22 12/19/22 Unknown History mL) subcutaneous pen (Lantus Solostar U-100 Insulin) pantoprazole 40 mg tablet,delayed 40 mg PO DAILY@0630 12/19/22 12/19/22 Unknown History release (Protonix) promethazine 25 mg tablet 25 mg PO Q4H PRN nausea and 12/19/22 12/19/22 Unknown History vomiting Physical Exam Vital Signs and Narrative: Vital Signs: Last Vital Signs Temp 98.7 F 12/20/22 00:21 Pulse 83 12/20/22 00:21 Resp 18 12/20/22 00:21 BP 118/66 12/20/22 00:21 Pulse Ox 100 12/20/22 00:21 O2 Del Method Room Air 12/20/22 00:21 BMI result Body Mass Index 28.2 Const: General: cooperative and no acute distress Orie ntation/consciousness: patient oriented x3 Eyes: General: appearance normal, both eyes and all related structures Resp: Effort & Inspection: normal respiratory effort Auscultation: clear to auscultation bilaterally Cardio: Rate: regular rate Rhythm: regular rhythm GI: Other: generalized abdominal tenderness, no rebound or guarding Palpation (GI): Soft to palpation Auscultation: normal bowel sounds Skin: General skin exam: no rashes or lesions noted Neuro: General: patient oriented x3 Cognition (Neuro): normal cognition Extrem: General: Yes normal to inspection and Yes no pedal edema Results Labs 12/19/22 12:35 12/19/22 20:14 Labs: Laboratory Results - last 24 hr 12/19/22 12/19/22 12/19/22 12:24 12:35 12:36 MCV 77.6 L MCH 25.0 L MCHC 32.3 RDW 14.0 Plt Count 325 MPV 10.3 Immature Gran % (Auto) 0.5 H Neut % (Auto) 88.9 H Lymph % (Auto) 7.9 L [place] % (Auto) 2.3 Eos % (Auto) 0.0 Baso % (Auto) 0.4 Lymph # (Auto) 1.1 L [place] # (Auto) 0.3 Eos # (Auto) 0.0 Baso # (Auto) 0.1 Abs Immat Gran (auto) 0.07 H Absolute Neuts (auto) 12.6 H Absolute Nucleated RBC 0.000 Nucleated RBC % (auto) 0.0 VBG pH 7.28 L VBG pCO2 21 VBG pO2 97 VBG HCO3 10 L VBG O2 Saturation 98.0 VBG Base Excess -13.8 Anion Gap 31 H Estim Creat Clear Calc TNP Estimated GFR > 60 POC Glucose Random Glucose 457 H* Calcium 9.7 D Magnesium 2.0 Total Bilirubin 0.9 AST 24 ALT 25 Alkaline Phosphatase 103 Ammonia Total Protein 7.8 Albumin 4.4 Lipase 5 L Urine Color Urine Appearance Urine pH Ur Specific [place] Urine Protein Urine Glucose (UA) Urine Ketones Urine Blood Urine Nitrite Ur Leukocyte Esterase Urine RBC Urine WBC Ur Squamous Epith Cells Urine Bacteria Hyaline Casts Urine Opiates Screen Urine Fentanyl Screen Ur Barbiturates Screen Ur Phencyclidine Scrn Ur Amphetamines Screen U Benzodiazepines Scrn Urine Cocaine Screen U Marijuana (THC) Screen Acetone, Qual Small H 12/19/22 12/19/22 12/19/22 13:42 15:01 15:01 MCV MCH MCHC RDW Plt Count MPV Immature Gran % (Auto) Neut % (Auto) Lymph % (Auto) [place] % (Auto) Eos % (Auto) Baso % (Auto) Lymph # (Auto) [place] # (Auto) Eos # (Auto) Baso # (Auto) Abs Immat Gran (auto) Absolute Neuts (auto) Absolute Nucleated RBC Nucleated RBC % (auto) VBG pH VBG pCO2 VBG pO2 VBG HCO3 VBG O2 Saturation VBG Base Excess Anion Gap Estim Creat Clear Calc Estimated GFR POC Glucose Random Glucose Calcium Magnesium Total Bilirubin AST ALT Alkaline Phosphatase Ammonia 31 Total Protein Albumin Lipase Urine Color Yellow Urine Appearance Clear Urine pH 5.0 Ur Specific [place] 1.025 Urine Protein Negative Urine Glucose (UA) >=1000 H Urine Ketones >=160 Urine Blood Negative Urine Nitrite Negative Ur Leukocyte Esterase Negative Urine RBC 0-2 Urine WBC 0-5 Ur Squamous Epith Cells 0-2 Urine Bacteria None Seen Hyaline Casts 0-2 Urine Opiates Screen Not Detected Urine Fentanyl Screen Not Detected Ur Barbiturates Screen Not Detected Ur Phencyclidine Scrn Not Detected Ur Amphetamines Screen Not Detected U Benzodiazepines Scrn Not Detected Urine Cocaine Screen Not Detected U Marijuana (THC) Screen POSITIVE H Acetone, Qual 12/19/22 12/19/22 12/19/22 15:45 17:05 17:27 MCV MCH MCHC RDW Plt Count MPV Immature Gran % (Auto) Neut % (Auto) Lymph % (Auto) [place] % (Auto) Eos % (Auto) Baso % (Auto) Lymph # (Auto) [place] # (Auto) Eos # (Auto) Baso # (Auto) Abs Immat Gran (auto) Absolute Neuts (auto) Absolute Nucleated RBC Nucleated RBC % (auto) VBG pH VBG pCO2 VBG pO2 VBG HCO3 VBG O2 Saturation VBG Base Excess Anion Gap 22 H Estim Creat Clear Calc TNP Estimated GFR > 60 POC Glucose 357 H* 292 H Random Glucose 290 H Calcium 9.0 D Magnesium Total Bilirubin 0.5 AST 29 ALT 25 Alkaline Phosphatase 97 Ammonia Total Protein 7.2 Albumin 4.2 Lipase Urine Color Urine Appearance Urine pH Ur Specific [place] Urine Protein Urine Glucose (UA) Urine Ketones Urine Blood Urine Nitrite Ur Leukocyte Esterase Urine RBC Urine WBC Ur Squamous Epith Cells Urine Bacteria Hyaline Casts Urine Opiates Screen Urine Fentanyl Screen Ur Barbiturates Screen Ur Phencyclidine Scrn Ur Amphetamines Screen U Benzodiazepines Scrn Urine Cocaine Screen U Marijuana (THC) Screen Acetone, Qual 12/19/22 12/19/22 12/19/22 18:19 19:16 20:14 MCV MCH MCHC RDW Plt Count MPV Immature Gran % (Auto) Neut % (Auto) Lymph % (Auto) [place] % (Auto) Eos % (Auto) Baso % (Auto) Lymph # (Auto) [place] # (Auto) Eos # (Auto) Baso # (Auto) Abs Immat Gran (auto) Absolute Neuts (auto) Absolute Nucleated RBC Nucleated RBC % (auto) VBG pH VBG pCO2 VBG pO2 VBG HCO3 VBG O2 Saturation VBG Base Excess Anion Gap 14 Estim Creat Clear Calc TNP Estimated GFR > 60 POC Glucose 221 H 209 H Random Glucose 208 H Calcium 8.8 Magnesium Total Bilirubin 0.5 AST 21 ALT 21 Alkaline Phosphatase 84 Ammonia Total Protein 6.4 L Albumin 3.8 Lipase Urine Color Urine Appearance Urine pH Ur Specific [place] Urine Protein Urine Glucose (UA) Urine Ketones Urine Blood Urine Nitrite Ur Leukocyte Esterase Urine RBC Urine WBC Ur Squamous Epith Cells Urine Bacteria Hyaline Casts Urine Opiates Screen Urine Fentanyl Screen Ur Barbiturates Screen Ur Phencyclidine Scrn Ur Amphetamines Screen U Benzodiazepines Scrn Urine Cocaine Screen U Marijuana (THC) Screen Acetone, Qual 12/19/22 12/19/22 12/20/22 21:48 22:46 00:09 MCV MCH MCHC RDW Plt Count MPV Immature Gran % (Auto) Neut % (Auto) Lymph % (Auto) [place] % (Auto) Eos % (Auto) Baso % (Auto) Lymph # (Auto) [place] # (Auto) Eos # (Auto) Baso # (Auto) Abs Immat Gran (auto) Absolute Neuts (auto) Absolute Nucleated RBC Nucleated RBC % (auto) VBG pH VBG pCO2 VBG pO2 VBG HCO3 VBG O2 Saturation VBG Base Excess Anion Gap Estim Creat Clear Calc Estimated GFR POC Glucose 146 H 188 H 204 H Random Glucose Calcium Magnesium Total Bilirubin AST ALT Alkaline Phosphatase Ammonia Total Protein Albumin Lipase Urine Color Urine Appearance Urine pH Ur Specific [place] Urine Protein Urine Glucose (UA) Urine Ketones Urine Blood Urine Nitrite Ur Leukocyte Esterase Urine RBC Urine WBC Ur Squamous Epith Cells Urine Bacteria Hyaline Casts Urine Opiates Screen Urine Fentanyl Screen Ur Barbiturates Screen Ur Phencyclidine Scrn Ur Amphetamines Screen U Benzodiazepines Scrn Urine Cocaine Screen U Marijuana (THC) Screen Acetone, Qual 12/20/22 00:18 MCV MCH MCHC RDW Plt Count MPV Immature Gran % (Auto) Neut % (Auto) Lymph % (Auto) [place] % (Auto) Eos % (Auto) Baso % (Auto) Lymph # (Auto) [place] # (Auto) Eos # (Auto) Baso # (Auto) Abs Immat Gran (auto) Absolute Neuts (auto) Absolute Nucleated RBC Nucleated RBC % (auto) VBG pH 7.42 VBG pCO2 27 VBG pO2 118 VBG HCO3 18 L VBG O2 Saturation 100.0 VBG Base Excess -4.6 Anion Gap Estim Creat Clear Calc Estimated GFR POC Glucose Random Glucose Calcium Magnesium Total Bilirubin AST ALT Alkaline Phosphatase Ammonia Total Protein Albumin Lipase Urine Color Urine Appearance Urine pH Ur Specific [place] Urine Protein Urine Glucose (UA) Urine Ketones Urine Blood Urine Nitrite Ur Leukocyte Esterase Urine RBC Urine WBC Ur Squamous Epith Cells Urine Bacteria Hyaline Casts Urine Opiates Screen Urine Fentanyl Screen Ur Barbiturates Screen Ur Phencyclidine Scrn Ur Amphetamines Screen U Benzodiazepines Scrn Urine Cocaine Screen U Marijuana (THC) Screen Acetone, Qual Imaging Radiologist's Impressions: Impressions Abdomen/Pelvis CT 12/19/22 15:14 IMPRESSION: Mild fatty infiltration of the liver. Fluid-filled loops of small bowel and question mild wall thickening of the colon/colitis versus changes due to underdistention. Fleischner guidelines were followed. Assessment and Plan (1) DKA (diabetic ketoacidosis): Status: Acute (2) Hyperglycemia: Status: Acute (3) Colitis: Status: Acute (4) Gastroparesis: Status: Acute (5) Abdominal pain: Status: Acute Plan 27-year-old male history of insulin-dependent diabetes presents to the hospital with abdominal pain, found to have acute DKA # acute DKA - managed on insulin drip, transitioned after having gap closed x2 - will place on home insulin, low-dose sliding scale insulin, - clear liquid diet at this time given his gastroparesis - POC q.i.d. a.c. HS # hyperglycemia - secondary to poorly controlled diabete s- will continue his home insulin, will place on low-dose sliding scale insulin - monitor for DKA # abdominal pain - gastroparesis versus colitis less likely - p.r.n. antiemetics - bowel rest - will hold off on starting antibiotics at this time, if develops fevers, continues to have leukocytosis, consider starting antibiotics # leukocytosis - likely reactive - continue to monitor CBC DVT prophylaxis: Early ambulation Time Spent With Patient Time: Total time managing care of this patient today ____ minutes. Quality Stroke Does the patient have a stroke diagnosis?: No VTE Prior VTE?: No VTE Risk Level:: Medical - moderate - high VTE Device Contraindication: Treatment Not Indicated VTE Drug Contraindication: N/A - Med Ordered
[2022-12-20 00:45] LABS: Anion Gap 12 (12-20); Blood Urea Nitrogen 17 mg/dL (9-16); Calcium 8.7 mg/dL (8.4-10.2); Carbon Dioxide 21 mmol/L (22-29); Chloride 106 mmol/L (96-108); Creatinine Clr Calc Pharmacy 103.5; Estimated Glomerular Filt Rate > 60; Glucose Random 221 mg/dL (60-115); Lipase < 4 U/L (8-78); Potassium 4.4 mmol/L (3.3-5.1); Sodium 135 mmol/L (135-145)
[2022-12-20 01:11] LABS: Glucose, Whole Blood 211 mg/dL (60-115)
[2022-12-20] MEDS: Enoxaparin Sodium 40 MG/0.4 ML SYRINGE SUBCUT (01:29)
[2022-12-20] MEDS: Insulin Lispro 100 UNIT/ML 3 ML VIAL SUBCUT (01:30)
[2022-12-20] MEDS: 0.9 % Sodium Chloride 1,000 ML 125 ML IVCONT ×2 (01:32→09:36)
[2022-12-20] MEDS: traZODone HCL 50 MG TABLET PO (04:28)
[2022-12-20] MEDS: Morphine Sulfate 4 MG/ML CARTRIDGE IVPUSH ×2 (04:28→08:15)
[2022-12-20 04:31] VITALS: BP 122/74; PULSE 88; RESP 18; TEMP 36.8; O2SAT 99
[2022-12-20 06:29] LABS: MANUAL DIFF FLAG NO
[2022-12-20 06:39] LABS: Basophils Percent Auto 0.4 % (0-2); Eosinophils Absolute Auto 0.1 X10*3/uL (0.0-0.4); Eosinophils Percent Auto 1.1 % (0-4); Hematocrit 33.3 % (42.0-52.0); Hemoglobin 10.8 g/dl (14.0-18.0); Imm Gran Abs Auto 0.02 X10*3/uL (0.00-0.03); Imm Gran Pct Auto 0.2 % (0.0-0.4); Lymphocytes Absolute Auto 3.2 X10*3/uL (1.2-4.9); Lymphocytes Percent Auto 35.1 % (20-40); Mean Corpuscular HGB Conc 32.4 g/dl (31.0-36.0); Mean Corpuscular Hemoglobin 24.8 pg (27.0-33.0); Mean Corpuscular Volume 76.6 fL (80.0-98.0); Mean Platelet Volume 9.6 fL (9.4-12.4); Monocytes Absolute Auto 0.7 X10*3/uL (0.1-1.2); Monocytes Percent Auto 7.3 % (2-11); Neutrophils Absolute Auto 5.2 x10*3/uL (2.0-8.3); Neutrophils Percent Auto 55.9 % (45-73); Platelet Count 258 X10*3/uL (160-400); Red Blood Count 4.35 X10*6/uL (4.60-5.80); Red Cell Distribution Width 13.9 % (11.0-16.0); White Blood Count 9.2 X10*3/uL (4.8-10.8)
[2022-12-20 07:19] LABS: Glucose, Whole Blood 66 mg/dL (60-115)
[2022-12-20 07:28] LABS: Blood Urea Nitrogen 15 mg/dL (9-16); Calcium 8.4 mg/dL (8.4-10.2); Creatinine Clr Calc Pharmacy 123.6; Estimated Glomerular Filt Rate > 60; Glucose Random 76 mg/dL (60-115)
[2022-12-20 07:42] LABS: Anion Gap 11 (12-20); Carbon Dioxide 22 mmol/L (22-29); Chloride 108 mmol/L (96-108); Potassium 3.5 mmol/L (3.3-5.1); Sodium 137 mmol/L (135-145)
[2022-12-20] MEDS: ondansetron HCL 4 MG/2 ML VIAL IVPUSH (08:04)
[2022-12-20 08:09] VITALS: BP 134/70; PULSE 99; RESP 20; O2SAT 100
[2022-12-20 08:12] LABS: Glucose, Whole Blood 133 mg/dL (60-115)
--- NOTE | 2022-12-20 08:18 | PC.NURSE ---
Pt is alert/oriented. POC this am 66, reached out to hospitalist and clear liquid diet order changed to diabetic diet (kitchen called) apple juice given while awaiting Pt refused Prilosec. Reporting whole upper body pain and dental pain, screaming out in pain, rocking back and forth, restless. Medicated as charted. Repeat POC 133 Pt nauseous no vomiting noted at this time. VSS
[2022-12-20 08:46] LABS: Magnesium 1.9 mg/dL (1.6-2.6); Phosphorus 1.9 mg/dL (2.7-4.5)
[2022-12-20 08:54] LABS: Estimated Average Glucose 263 mg/dL; Hemoglobin A1c % 10.8 %
--- NOTE | 2022-12-20 09:09 | MHC.CM.PN ---
PATIENT IS EXPERIENCING HIGH LEVELS OF PAIN AND NOT COMFORTABLE PARTICIPATING IN ASSESSMENT CASE MANAGEMENT NAME AND DC PLAN WRITTEN ON WHITE BOARD. NO HCP ON FILE CM AVAILABLE FOR ANY DC NEEDS OR HCP COMPLETION
[2022-12-20 09:10] VITALS: BP 118/78; PULSE 88; RESP 20; TEMP 36.7; O2SAT 100
[2022-12-20] MEDS: 0.9 % Sodium Chloride Flush 3 ML SYRINGE IVFLUSH (09:11)
[2022-12-20 09:15] LABS: Glucose, Whole Blood 146 mg/dL (60-115)
[2022-12-20] MEDS: HYDROmorphone HCl 0.5 MG/0.5 ML SYRINGE IVPUSH (09:35)
--- NOTE | 2022-12-20 09:52 | PM.EVENT ---
Event Note Date of Service: 12/20/22 Event Note: Day hospitalist update S: C/o severe lower left molar pain since cracking it on a chicharron 6 wk ago. Pain into jaw O: T 98, P 88, R 20, BP 118/78, SaO2 100 on RA Gen: in no acute distress HEENT: sclera anicteric, moist mucus membranes, cracked lower left molar, severe mandibular tenderness Neck: supple Lungs: clear to auscultation bilaterally Heart: regular rate and rhythm, no murmurs Abd: soft, non-tender, non-distended Ext: no edema Skin: warm/well-perfused Neuro: alert and oriented x3, no focal findings Psych: appropriate affect Labs: K 3.5, Cr 0.72, A1c 10.8, PO4 1.9 A/P: hospital day#1 27yo M with DM1 + gastroparesis presenting with abd pain, admitted for acute DKA # DKA - transitioned off insulin drip in ED to SQ insulin basal-bolus - A1c 10.8 # hypoPO4 - replete PO, recheck in AM # tooth infection - concern for abscess or deeper infection- will get CT maxillofacial + contrast and also start amp/sulbactam IV - IV hydromorphone + PO oxycodone for pain contrl # gastroparesis - prn metoclopramide # VTE ppx: LMWH # dispo: anticipate home In my clinical judgment, the patient requires continued hospitalization for the following reasons: IV ABX
[2022-12-20 11:17] LABS: Glucose, Whole Blood 138 mg/dL (60-115)
[2022-12-20] MEDS: iohexoL 350 MG/ML 100 ML INFUS..BTL IV (11:22)
[2022-12-20] MEDS: Ketorolac Tromethamine 30 MG/ML VIAL IVPUSH (13:15)
--- NOTE | 2022-12-20 14:44 | P.DS_ITS ---
DS: Providers Provider Date of Service: 12/20/22 Date of admission: 12/20/22 00:25 Date of discharge: 12/20/22 Primary care physician: [facility] DS: Diagnosis Discharge Diagnosis (1) DKA (diabetic ketoacidosis): Status: Acute (2) Hyperglycemia: Status: Acute (3) Gastroparesis: Status: Acute (4) Dental infection: Status: Acute (5) Left against medical advice: Status: Acute DS: Summary Hospital Course Hospital Course: from admission H+P 5.2.23 by hospitalist Phill Yañez: [2]7-year-old male with past medical history of diabetes insulin dependent, with abdominal pain, nausea and vomiting,? the initially started on 12/18, and worsened.? Patient reports that he was seen in the hospital on 12/18, at that time was not in DKA, was found to have gastroparesis, given script for Phenergan and after feeling slightly better he was sent home.? He returns stating worsening generalized abdominal pain, nausea, vomiting, decreased p.o. intake, upon checking glucose patient was found to have glucose of 457 with an anion gap and a bicarb of 11 ?patient states that he did not take his Lantus when he got home on 12/18 ?vitals otherwise unremarkable Labs are significant for WBC count of 14.1, pH of 7.28, potassium of 5.6, glucose of 457 that is now improved ?abdomen pelvic CT shows? fluid-filled loops of small bowel and question of mild wall thickening of the colon/ colitis versus changes due to under distension ?patient was placed on insulin drip, managed in the ED, transitioned after having his gap closed x2, and will be admitted for further management He was admitted to the medical-surgical floor and placed on basal-bolusin SQ insulin. He complained of severe dental pain from a cracked tooth. He was started on IV Unasyn and a facial CT was ordered. However, quite suddenly, he signed out of the hospital AMA on 12/20/22 despite counseling on the risks of doing so. He was prescribed amoxicillin-clavulanate and advised to return to the hospital as soon as possible. He was also advised to seek definitive dental care. Time Spent with Patient Time attestation: Total time managing care of this patient today ____ minutes. Discharge coordination time: Greater than 30 minutes Quality: Safe Use of Opioids Does Pt have an Active Cancer Diagnosis on the Problem List?: No Quality: Stroke Does the patient have a stroke diagnosis?: No Physical Exam Vital Signs: Vital Signs: Last Vital Signs Temp 98.0 F 12/20/22 09:10 Pulse 88 12/20/22 09:10 Resp 20 12/20/22 09:10 BP 118/78 12/20/22 09:10 Pulse Ox 100 12/20/22 09:10 O2 Del Method Room Air 12/20/22 09:10 BMI result Body Mass Index 28.2 Gen: in no acute distress HEENT: sclera anicteric, moist mucus membranes, cracked lower left molar, severe mandibular tenderness Neck: supple Lungs: clear to auscultation bilaterally Heart: regular rate and rhythm, no murmurs Abd: soft, non-tender, non-distended Ext: no edema Skin: warm/well-perfused Neuro: alert and oriented x3, no focal findings Psych: appropriate affect DS: Data Data Completed and Pending Completed studies during hospitalization [Text1]: Laboratory Results WBC 9.2 X10*3/uL (4.8-10.8) 12/20/22 06:00 RBC 4.35 X10*6/uL (4.60-5.80) L 12/20/22 06:00 Hgb 10.8 g/dl (14.0-18.0) L 12/20/22 06:00 Hct 33.3 % (42.0-52.0) L 12/20/22 06:00 MCV 76.6 fL (80.0-98.0) L 12/20/22 06:00 MCH 24.8 pg (27.0-33.0) L 12/20/22 06:00 MCHC 32.4 g/dl (31.0-36.0) 12/20/22 06:00 RDW 13.9 % (11.0-16.0) 12/20/22 06:00 Plt Count 258 X10*3/uL (160-400) 12/20/22 06:00 MPV 9.6 fL (9.4-12.4) 12/20/22 06:00 Immature Gran % (Auto) 0.2 % (0.0-0.4) 12/20/22 06:00 Neut % (Auto) 55.9 % (45-73) 12/20/22 06:00 Lymph % (Auto) 35.1 % (20-40) 12/20/22 06:00 [place] % (Auto) 7.3 % (2-11) 12/20/22 06:00 Eos % (Auto) 1.1 % (0-4) 12/20/22 06:00 Baso % (Auto) 0.4 % (0-2) 12/20/22 06:00 Lymph # (Auto) 3.2 X10*3/uL (1.2-4.9) 12/20/22 06:00 [place] # (Auto) 0.7 X10*3/uL (0.1-1.2) 12/20/22 06:00 Eos # (Auto) 0.1 X10*3/uL (0.0-0.4) 12/20/22 06:00 Baso # (Auto) 0.0 X10*3/uL (0.0-0.2) 12/20/22 06:00 Abs Immat Gran (auto) 0.02 X10*3/uL (0.00-0.03) 12/20/22 06:00 Absolute Neuts (auto) 5.2 x10*3/uL (2.0-8.3) 12/20/22 06:00 Absolute Nucleated RBC 0.000 X10*3/uL (0.0-0.012) 12/20/22 06:00 Nucleated RBC % (auto) 0.0 /100WBC (0.0-0.2) 12/20/22 06:00 VBG pH 7.42 (7.32-7.43) 12/20/22 00:18 VBG pCO2 27 mmHg 12/20/22 00:18 VBG pO2 118 mmHg 12/20/22 00:18 VBG HCO3 18 mmol/L (22-26) L 12/20/22 00:18 VBG O2 Saturation 100.0 % 12/20/22 00:18 VBG Base Excess -4.6 mmol/L 12/20/22 00:18 Sodium 137 mmol/L (135-145) 12/20/22 06:00 Potassium 3.5 mmol/L (3.3-5.1) D 12/20/22 06:00 Chloride 108 mmol/L (96-108) 12/20/22 06:00 Carbon Dioxide 22 mmol/L (22-29) 12/20/22 06:00 Anion Gap 11 (12-20) L 12/20/22 06:00 BUN 15 mg/dL (9-16) 12/20/22 06:00 Creatinine 0.72 mg/dL (0.5-1.4) 12/20/22 06:00 Estim Creat Clear Calc 123.6 12/20/22 06:00 Estimated GFR > 60 12/20/22 06:00 POC Glucose 138 mg/dL (60-115) H 12/20/22 11:13 Random Glucose 76 mg/dL (60-115) 12/20/22 06:00 Estimat Average Glucose 263 mg/dL 12/20/22 06:00 Hemoglobin A1c % 10.8 % 12/20/22 06:00 Calcium 8.4 mg/dL (8.4-10.2) 12/20/22 06:00 Phosphorus 1.9 mg/dL (2.7-4.5) L 12/20/22 00:17 Magnesium 1.9 mg/dL (1.6-2.6) 12/20/22 00:17 Total Bilirubin 0.5 mg/dL (0.0-1.0) 12/19/22 20:14 AST 21 U/L (5-37) 12/19/22 20:14 ALT 21 U/L (0-40) 12/19/22 20:14 Alkaline Phosphatase 84 U/L (39-117) 12/19/22 20:14 Ammonia 31 umol/L (13-55) 12/19/22 13:42 Total Protein 6.4 g/dL (6.5-8.0) L 12/19/22 20:14 Albumin 3.8 g/dL (3.5-5.0) 12/19/22 20:14 Lipase < 4 U/L (8-78) L 12/20/22 00:17 Urine Color Yellow 12/19/22 15:01 Urine Appearance Clear 12/19/22 15:01 Urine pH 5.0 (5.0-9.0) 12/19/22 15:01 Ur Specific [place] 1.025 (1.005-1.025) 12/19/22 15:01 Urine Protein Negative mg/dL (Neg-Trace) 12/19/22 15:01 Urine Glucose (UA) >=1000 mg/dL (Negative) H 12/19/22 15:01 Urine Ketones >=160 mg/dL (Negative) 12/19/22 15:01 Urine Blood Negative (Negative) 12/19/22 15:01 Urine Nitrite Negative (Negative) 12/19/22 15:01 Ur Leukocyte Esterase Negative (Negative) 12/19/22 15:01 Urine RBC 0-2 /HPF (0-2) 12/19/22 15:01 Urine WBC 0-5 /HPF (0-5) 12/19/22 15:01 Ur Squamous Epith Cells 0-2 /HPF (0-2) 12/19/22 15:01 Urine Bacteria None Seen (None Seen) 12/19/22 15:01 Hyaline Casts 0-2 /LPF (0-2) 12/19/22 15:01 Urine Opiates Screen Not Detected (Not Detect) 12/19/22 15:01 Urine Fentanyl Screen Not Detected (Not Detect) 12/19/22 15:01 Ur Barbiturates Screen Not Detected (Not Detect) 12/19/22 15:01 Ur Phencyclidine Scrn Not Detected (Not Detect) 12/19/22 15:01 Ur Amphetamines Screen Not Detected (Not Detect) 12/19/22 15:01 U Benzodiazepines Scrn Not Detected (Not Detect) 12/19/22 15:01 Urine Cocaine Screen Not Detected (Not Detect) 12/19/22 15:01 U Marijuana (THC) Screen POSITIVE (Not Detect) H 12/19/22 15:01 Acetone, Qual Small (Negative) H 12/19/22 12:24 Impressions Abdomen/Pelvis CT 12/19/22 15:14 IMPRESSION: Mild fatty infiltration of the liver. Fluid-filled loops of small bowel and question mild wall thickening of the colon/colitis versus changes due to underdistention. Fleischner guidelines were followed. Labs on day of discharge: Laboratory Results - last 24 hr 12/19/22 12/19/22 12/19/22 12:24 15:01 15:01 WBC RBC Hgb Hct MCV MCH MCHC RDW Plt Count MPV Immature Gran % (Auto) Neut % (Auto) Lymph % (Auto) [place] % (Auto) Eos % (Auto) Baso % (Auto) Lymph # (Auto) [place] # (Auto) Eos # (Auto) Baso # (Auto) Abs Immat Gran (auto) Absolute Neuts (auto) Absolute Nucleated RBC Nucleated RBC % (auto) VBG pH VBG pCO2 VBG pO2 VBG HCO3 VBG O2 Saturation VBG Base Excess Sodium Potassium Chloride Carbon Dioxide Anion Gap BUN Creatinine Estim Creat Clear Calc Estimated GFR POC Glucose Random Glucose Estimat Average Glucose Hemoglobin A1c % Calcium Phosphorus Magnesium Total Bilirubin AST ALT Alkaline Phosphatase Total Protein Albumin Lipase 5 L Urine Color Yellow Urine Appearance Clear Urine pH 5.0 Ur Specific [place] 1.025 Urine Protein Negative Urine Glucose (UA) >=1000 H Urine Ketones >=160 Urine Blood Negative Urine Nitrite Negative Ur Leukocyte Esterase Negative Urine RBC 0-2 Urine WBC 0-5 Ur Squamous Epith Cells 0-2 Urine Bacteria None Seen Hyaline Casts 0-2 Urine Opiates Screen Not Detected Urine Fentanyl Screen Not Detected Ur Barbiturates Screen Not Detected Ur Phencyclidine Scrn Not Detected Ur Amphetamines Screen Not Detected U Benzodiazepines Scrn Not Detected Urine Cocaine Screen Not Detected U Marijuana (THC) Screen POSITIVE H 12/19/22 12/19/22 12/19/22 15:45 17:05 17:27 WBC RBC Hgb Hct MCV MCH MCHC RDW Plt Count MPV Immature Gran % (Auto) Neut % (Auto) Lymph % (Auto) [place] % (Auto) Eos % (Auto) Baso % (Auto) Lymph # (Auto) [place] # (Auto) Eos # (Auto) Baso # (Auto) Abs Immat Gran (auto) Absolute Neuts (auto) Absolute Nucleated RBC Nucleated RBC % (auto) VBG pH VBG pCO2 VBG pO2 VBG HCO3 VBG O2 Saturation VBG Base Excess Sodium 135 Potassium 5.1 Chloride 105 Carbon Dioxide 13 L Anion Gap 22 H BUN 23 H Creatinine 1.07 Estim Creat Clear Calc TNP Estimated GFR > 60 POC Glucose 357 H* 292 H Random Glucose 290 H Estimat Average Glucose Hemoglobin A1c % Calcium 9.0 D Phosphorus Magnesium Total Bilirubin 0.5 AST 29 ALT 25 Alkaline Phosphatase 97 Total Protein 7.2 Albumin 4.2 Lipase Urine Color Urine Appearance Urine pH Ur Specific [place] Urine Protein Urine Glucose (UA) Urine Ketones Urine Blood Urine Nitrite Ur Leukocyte Esterase Urine RBC Urine WBC Ur Squamous Epith Cells Urine Bacteria Hyaline Casts Urine Opiates Screen Urine Fentanyl Screen Ur Barbiturates Screen Ur Phencyclidine Scrn Ur Amphetamines Screen U Benzodiazepines Scrn Urine Cocaine Screen U Marijuana (THC) Screen 12/19/22 12/19/22 12/19/22 18:19 19:16 20:14 WBC RBC Hgb Hct MCV MCH MCHC RDW Plt Count MPV Immature Gran % (Auto) Neut % (Auto) Lymph % (Auto) [place] % (Auto) Eos % (Auto) Baso % (Auto) Lymph # (Auto) [place] # (Auto) Eos # (Auto) Baso # (Auto) Abs Immat Gran (auto) Absolute Neuts (auto) Absolute Nucleated RBC Nucleated RBC % (auto) VBG pH VBG pCO2 VBG pO2 VBG HCO3 VBG O2 Saturation VBG Base Excess Sodium 137 Potassium 4.4 Chloride 107 Carbon Dioxide 20 L Anion Gap 14 BUN 20 H Creatinine 0.94 Estim Creat Clear Calc TNP Estimated GFR > 60 POC Glucose 221 H 209 H Random Glucose 208 H Estimat Average Glucose Hemoglobin A1c % Calcium 8.8 Phosphorus Magnesium Total Bilirubin 0.5 AST 21 ALT 21 Alkaline Phosphatase 84 Total Protein 6.4 L Albumin 3.8 Lipase Urine Color Urine Appearance Urine pH Ur Specific [place] Urine Protein Urine Glucose (UA) Urine Ketones Urine Blood Urine Nitrite Ur Leukocyte Esterase Urine RBC Urine WBC Ur Squamous Epith Cells Urine Bacteria Hyaline Casts Urine Opiates Screen Urine Fentanyl Screen Ur Barbiturates Screen Ur Phencyclidine Scrn Ur Amphetamines Screen U Benzodiazepines Scrn Urine Cocaine Screen U Marijuana (THC) Screen 12/19/22 12/19/22 12/20/22 21:48 22:46 00:09 WBC RBC Hgb Hct MCV MCH MCHC RDW Plt Count MPV Immature Gran % (Auto) Neut % (Auto) Lymph % (Auto) [place] % (Auto) Eos % (Auto) Baso % (Auto) Lymph # (Auto) [place] # (Auto) Eos # (Auto) Baso # (Auto) Abs Immat Gran (auto) Absolute Neuts (auto) Absolute Nucleated RBC Nucleated RBC % (auto) VBG pH VBG pCO2 VBG pO2 VBG HCO3 VBG O2 Saturation VBG Base Excess Sodium Potassium Chloride Carbon Dioxide Anion Gap BUN Creatinine Estim Creat Clear Calc Estimated GFR POC Glucose 146 H 188 H 204 H Random Glucose Estimat Average Glucose Hemoglobin A1c % Calcium Phosphorus Magnesium Total Bilirubin AST ALT Alkaline Phosphatase Total Protein Albumin Lipase Urine Color Urine Appearance Urine pH Ur Specific [place] Urine Protein Urine Glucose (UA) Urine Ketones Urine Blood Urine Nitrite Ur Leukocyte Esterase Urine RBC Urine WBC Ur Squamous Epith Cells Urine Bacteria Hyaline Casts Urine Opiates Screen Urine Fentanyl Screen Ur Barbiturates Screen Ur Phencyclidine Scrn Ur Amphetamines Screen U Benzodiazepines Scrn Urine Cocaine Screen U Marijuana (THC) Screen 12/20/22 12/20/22 12/20/22 00:17 00:18 01:06 WBC RBC Hgb Hct MCV MCH MCHC RDW Plt Count MPV Immature Gran % (Auto) Neut % (Auto) Lymph % (Auto) [place] % (Auto) Eos % (Auto) Baso % (Auto) Lymph # (Auto) [place] # (Auto) Eos # (Auto) Baso # (Auto) Abs Immat Gran (auto) Absolute Neuts (auto) Absolute Nucleated RBC Nucleated RBC % (auto) VBG pH 7.42 VBG pCO2 27 VBG pO2 118 VBG HCO3 18 L VBG O2 Saturation 100.0 VBG Base Excess -4.6 Sodium 135 Potassium 4.4 Chloride 106 Carbon Dioxide 21 L Anion Gap 12 BUN 17 H Creatinine 0.86 Estim Creat Clear Calc 103.5 Estimated GFR > 60 POC Glucose 211 H Random Glucose 221 H Estimat Average Glucose Hemoglobin A1c % Calcium 8.7 Phosphorus 1.9 L Magnesium 1.9 Total Bilirubin AST ALT Alkaline Phosphatase Total Protein Albumin Lipase < 4 L Urine Color Urine Appearance Urine pH Ur Specific [place] Urine Protein Urine Glucose (UA) Urine Ketones Urine Blood Urine Nitrite Ur Leukocyte Esterase Urine RBC Urine WBC Ur Squamous Epith Cells Urine Bacteria Hyaline Casts Urine Opiates Screen Urine Fentanyl Screen Ur Barbiturates Screen Ur Phencyclidine Scrn Ur Amphetamines Screen U Benzodiazepines Scrn Urine Cocaine Screen U Marijuana (THC) Screen 12/20/22 12/20/22 12/20/22 06:00 06:00 06:00 WBC 9.2 RBC 4.35 L Hgb 10.8 L Hct 33.3 L MCV 76.6 L MCH 24.8 L MCHC 32.4 RDW 13.9 Plt Count 258 MPV 9.6 Immature Gran % (Auto) 0.2 Neut % (Auto) 55.9 Lymph % (Auto) 35.1 [place] % (Auto) 7.3 Eos % (Auto) 1.1 Baso % (Auto) 0.4 Lymph # (Auto) 3.2 [place] # (Auto) 0.7 Eos # (Auto) 0.1 Baso # (Auto) 0.0 Abs Immat Gran (auto) 0.02 Absolute Neuts (auto) 5.2 Absolute Nucleated RBC 0.000 Nucleated RBC % (auto) 0.0 VBG pH VBG pCO2 VBG pO2 VBG HCO3 VBG O2 Saturation VBG Base Excess Sodium 137 Potassium 3.5 D Chloride 108 Carbon Dioxide 22 Anion Gap 11 L BUN 15 Creatinine 0.72 Estim Creat Clear Calc 123.6 Estimated GFR > 60 POC Glucose Random Glucose 76 Estimat Average Glucose 263 Hemoglobin A1c % 10.8 Calcium 8.4 Phosphorus Magnesium Total Bilirubin AST ALT Alkaline Phosphatase Total Protein Albumin Lipase Urine Color Urine Appearance Urine pH Ur Specific [place] Urine Protein Urine Glucose (UA) Urine Ketones Urine Blood Urine Nitrite Ur Leukocyte Esterase Urine RBC Urine WBC Ur Squamous Epith Cells Urine Bacteria Hyaline Casts Urine Opiates Screen Urine Fentanyl Screen Ur Barbiturates Screen Ur Phencyclidine Scrn Ur Amphetamines Screen U Benzodiazepines Scrn Urine Cocaine Screen U Marijuana (THC) Screen 12/20/22 12/20/22 12/20/22 07:15 08:09 09:09 WBC RBC Hgb Hct MCV MCH MCHC RDW Plt Count MPV Immature Gran % (Auto) Neut % (Auto) Lymph % (Auto) [place] % (Auto) Eos % (Auto) Baso % (Auto) Lymph # (Auto) [place] # (Auto) Eos # (Auto) Baso # (Auto) Abs Immat Gran (auto) Absolute Neuts (auto) Absolute Nucleated RBC Nucleated RBC % (auto) VBG pH VBG pCO2 VBG pO2 VBG HCO3 VBG O2 Saturation VBG Base Excess Sodium Potassium Chloride Carbon Dioxide Anion Gap BUN Creatinine Estim Creat Clear Calc Estimated GFR POC Glucose 66 133 H 146 H Random Glucose Estimat Average Glucose Hemoglobin A1c % Calcium Phosphorus Magnesium Total Bilirubin AST ALT Alkaline Phosphatase Total Protein Albumin Lipase Urine Color Urine Appearance Urine pH Ur Specific [place] Urine Protein Urine Glucose (UA) Urine Ketones Urine Blood Urine Nitrite Ur Leukocyte Esterase Urine RBC Urine WBC Ur Squamous Epith Cells Urine Bacteria Hyaline Casts Urine Opiates Screen Urine Fentanyl Screen Ur Barbiturates Screen Ur Phencyclidine Scrn Ur Amphetamines Screen U Benzodiazepines Scrn Urine Cocaine Screen U Marijuana (THC) Screen 12/20/22 11:13 WBC RBC Hgb Hct MCV MCH MCHC RDW Plt Count MPV Immature Gran % (Auto) Neut % (Auto) Lymph % (Auto) [place] % (Auto) Eos % (Auto) Baso % (Auto) Lymph # (Auto) [place] # (Auto) Eos # (Auto) Baso # (Auto) Abs Immat Gran (auto) Absolute Neuts (auto) Absolute Nucleated RBC Nucleated RBC % (auto) VBG pH VBG pCO2 VBG pO2 VBG HCO3 VBG O2 Saturation VBG Base Excess Sodium Potassium Chloride Carbon Dioxide Anion Gap BUN Creatinine Estim Creat Clear Calc Estimated GFR POC Glucose 138 H Random Glucose Estimat Average Glucose Hemoglobin A1c % Calcium Phosphorus Magnesium Total Bilirubin AST ALT Alkaline Phosphatase Total Protein Albumin Lipase Urine Color Urine Appearance Urine pH Ur Specific [place] Urine Protein Urine Glucose (UA) Urine Ketones Urine Blood Urine Nitrite Ur Leukocyte Esterase Urine RBC Urine WBC Ur Squamous Epith Cells Urine Bacteria Hyaline Casts Urine Opiates Screen Urine Fentanyl Screen Ur Barbiturates Screen Ur Phencyclidine Scrn Ur Amphetamines Screen U Benzodiazepines Scrn Urine Cocaine Screen U Marijuana (THC) Screen Discharge Plan Discharge Patient Disposition: Left Against Medical Advice Discharge Diagnosis: DKA, dental infection Referrals: [facility] [Primary Care Provider] - 1 Week Discharge Medications: New amoxicillin-pot clavulanate 875-125 mg tablet 1 tab PO BID Qty: 14 0RF No Action insulin aspart U-100 [Novolog FlexPen U-100 Insulin] 100 unit/mL (3 mL) insulin pen See Rx Instructions .ROUTE .COMPLEX Rx Instructions: 1 unit of insulin for every 35 units over 135 insulin glargine [Lantus Solostar U-100 Insulin] 100 unit/mL (3 mL) insulin pen 20 unit subcut BEDTIME promethazine 25 mg tablet 25 mg PO Q4H PRN (Reason: nausea and vomiting) pantoprazole [Protonix] 40 mg tablet,delayed release (DR/EC) 40 mg PO DAILY@0630 Discharge Orders: Discharge Order (Routine); Ordered 12/20/22 Ordered By: Erick Schaffer Stand Alone Forms: Work/School Release Care Plan Goals: avoid diabetic compliations cure dental issue Health Concerns: DKA, dental infection left against medical advice Plan of Treatment: take antibiotics as prescribed return to hospital as soon as possible seek dental care Assessment: See Discharge Summary. Discharge Date/Time: 12/20/22 15:21
--- NOTE | 2022-12-20 15:24 | MHC.CM.PN ---
PATIENT LEFT AMA
== END 2022-12-20 15:21 | disposition left against medical advice (07) | DRG 420 ==
LOC: HO.ED 23:31 → HO.EDOVER 12-20 00:39 → HO.S3 12-20 07:30
PROVIDERS: Physician Assistant; Physician Assistant Medical; Admitting Provider Internal Medicine; Emergency Provider Emergency Medicine; Visit Provider Family Medicine
DX: E10.10 Type 1 diabetes mellitus with ketoacidosis without coma (principal); K31.84 Gastroparesis; E10.43 Type 1 diabetes mellitus with diabetic autonomic (poly)neuropathy; F17.210 Nicotine dependence, cigarettes, uncomplicated; K04.7 Periapical abscess without sinus; Z71.6 Tobacco abuse counseling; Z79.899 Other long term (current) drug therapy
CPT/HCPCS: 36415; 70487; 74177; 80048; 80053; 80307; 81001; 82009; 82140; 82803; 82947; 83036; 83690; 83735; 84100; 85025; 93005; 99285; J1170; J1650; J1885; J2060; J2270; J2405; J2765; Q9967

== ENCOUNTER 2022-12-21 19:56 | Emergency (ER) | payer BC, OTHER, SELFPAY ==
--- NOTE | 2022-12-21 19:58 | ED_ITS ---
HPI - Dental/Oral General Chief complaint: Dental/Oral Stated complaint: dental pain Time Seen by Provider: 12/21/22 20:17 Source: patient Mode of arrival: ambulatory Limitations: no limitations History of Present Illness HPI Narrative: 27-year-old male history of diabetes, DKA, dental infections, gastroparesis, Gates's esophagus presents to the emergency department for evaluation have dental pain for the past few weeks worsening today has a broken tooth. Has been waiting to see a dentist. However has not been able to get in to see 1, has an emergency appointment tomorrow at 2:30 pm at [facility] dental office.Patient broke that tooth a while ago whiel eating pork. Denies changes in voice, difficulty swallowing, fevers, chills, nausea, vomiting, cp, sob Related Data Home Medications Medication Instructions Recorded Confirmed insulin aspart U-100 100 unit/mL See Rx Instructions .Route .COMPLEX 12/19/22 12/19/22 (3 mL) subcutaneous pen (Novolog FlexPen U-100 Insulin aspart) insulin glargine 100 unit/mL (3 20 unit subcut BEDTIME 12/19/22 12/19/22 mL) subcutaneous pen (Lantus Solostar U-100 Insulin) pantoprazole 40 mg tablet,delayed 40 mg PO DAILY@0630 12/19/22 12/19/22 release (Protonix) promethazine 25 mg tablet 25 mg PO Q4H PRN nausea and 12/19/22 12/19/22 vomiting Previous Rx's Medication Instructions Recorded amoxicillin 875 mg-potassium 1 tab PO BID 10 days #20 tabs 12/21/22 clavulanate 125 mg tablet morphine 15 mg immediate release 15 mg PO Q6H PRN pain 5 days #10 12/21/22 tablet tabs Allergies Allergy/AdvReac Type Severity Reaction Status Date / Time diphenhydramine Allergy Anaphylaxis Verified 10/28/22 22:41 [From Benadryl] haloperidol [From Haldol] Allergy Difficulty Verified 10/28/22 22:41 Swallowing Review of Systems Review of Systems: Constitutional : No Fever, No Chills ENT/Mouth : No swallowing difficulty, no change in voice, positive dental pain, positive jaw pain, positive facial swelling Eyes: No Eye Pain, No Swelling Cardiovascular : No Chest Pain, No SOB Respiratory : No Cough, No Sputum Gastrointestinal : No Nausea, No Vomiting, No Diarrhea Genitourinary : No Dysuria Musculoskeletal : No Myalgias Skin : No rash Neuro : No Weakness, No Numbness, No Headache Yes all other systems are reviewed and are negative [facility], [facility] Past Medical History Attestation statement: The following information was validated with the patient. Source: nursing notes reviewed Medical History (Updated 12/22/22 @ 00:19 by Ashwin Melo) Gates esophagus Diabetes mellitus type 1 Left against medical advice Social History Social History Household Members: Other Household Members Other:: cousin Housing: House Do you presently have visiting nurse or other home services: No Alcohol intake: never Patient Tobacco Use Status: Current everyday Tobacco user Tobacco use type: Cigarette Cigarette Packs Per Day: 0 Cigarettes Per Day: 0 Years Smoked: 10 e-Cigarette/Vaping Use: Never Used Second Hand Smoke Exposure: No Substance Use Type: Marijuana Advance Directives: No Advance Directives Information Provided: No service: No Current occupational status: employed Physical Exam Vital Signs: Vital Signs: Last Vital Signs Temp 96.9 F 12/21/22 20:01 Pulse 119 H 12/21/22 20:01 Resp 18 12/21/22 20:01 BP 155/91 H 12/21/22 20:01 Pulse Ox 100 12/21/22 20:01 O2 Del Method Room Air 12/21/22 20:01 BMI result Body Mass Index 27.6 vital signs stable Appearance: Alert.? Oriented X3.? No acute distress.? Head: Normocephalic, atraumatic, no step-offs or deformities Eyes: Pupils equal, round and reactive to light.? ENT: Pharynx normal.? uvula midline. No signs of retropharyngeal or peritonsillar abscess. Normal tonsils bilaterally. + hallatosis, poor dentition throughout no signs of abcess. + Left lower molar w/ fx slight swelling around it however no discrete abscess. Speaking in full sentences controlling secretions well . Neck: Normal inspection.? Neck supple.? CVS: Normal heart rate and rhythm.? Pulses normal.? Respiratory: No respiratory distress.? Breath sounds normal.? Abdomen: Soft and nontender.? Skin: Skin warm and dry.? Normal skin color.? Normal skin turgor.? Extremities: No lower extremity edema.? No calf ttp. 5/5 strength to bilateral upper and lower extremities Back: No midline tenderness, no C-spine tenderness, full range of motion, no CVA tenderness bilaterally Neuro: Oriented X 3.? No motor deficit.? No sensory deficit. CN 2-12 intact Course Reevaluation(s) Reevaluation #1: patient has tolerated morphine well in the past, educated on proper narcotic use. Will discharge home on Augmentin he will see dentist tomorrow at 02:30. Educated patient on diagnosis and treatment plan, answered all question, patient verbalizes understanding. At this time patient will be discharged home, advised to return with new or worsening symptoms. Educated on worrisome signs and symptoms and when to return. At this time I feel comfortable discharge home. Time: 20:13 Reevaluation #2: I discussed this case with my attending who agrees with Augmentin, follow-up with dentist. No visualized abscess. Time: 20:16 Medical Decision Making Medical Decision Making MDM Narrative: 1957 27-year-old male presents with dental pain for a few days worsening. Seeing dentist tomorrow at 2:30 pm Physical exam significant for Pharynx normal.? uvula midline. No signs of retropharyngeal or peritonsillar abscess. Normal tonsils bilaterally. + hallatosis, poor dentition throughout no signs of abcess. + Left lower molar w/ fx and swelling around it however no abscess visualized. . Speaking in full sentences controlling secretions well . Likely dental caries versus gingivitis versus dental fracture ( most likley) . No signs of dental abscess. No signs of airway compromise. Plan at this time antibiotics, discharge with PCP and dental follow-up. Differential Diagnosis Differential Diagnoses: The differential diagnosis associated with the presentation includes likely dental caries versus gingivitis versus dental fracture ( most likely) . No signs of dental abscess. No signs of airway compromise. Admission/Observation Consideration of admission/observation: Escalation of care including admission/observation considered not indicated Core Measures AMI core measures followed: Yes Measure exclusions: not indicated Critical Care Time Critical Care Time Critical Care Time: No Discharge Plan Discharge Clinical Impression: Pain, dental Patient Disposition: Home, Self-Care Instructions: Toothache (ED) Additional Instructions: Take your medications as prescribed. If you were prescribed antibiotics today, it is important that you take your medication to their entirety, do not skip any doses, do not finish them early. Follow-up with your primary care provider this week. Follow up with a dentist as soon as possible TOMORROW Return to the emergency department with new or worsening symptoms. Such as fevers, chills, chest pain, shortness of breath, nausea, vomiting, dizziness, headache, vision changes, lethargy In case of emergency call 911 A narcotic has been sent to your pharmacy please take this as prescribed. Do not take more than the prescribed dose. Narcotic medications can cause addiction. Please do not mix them with alcohol. Do not take them while driving or operating machinery. Do not take them with any other narcotics. Do not share them with friends or family. They can cause constipation. Take them only for severe pain. Prescriptions: New amoxicillin-pot clavulanate 875-125 mg tablet 1 tab PO BID 10 Days Qty: 20 0RF morphine 15 mg tablet 15 mg PO Q6H PRN (Reason: pain) 5 Days Qty: 10 0RF Rx Instructions: Partial Fill upon patient request. No Action insulin aspart U-100 [Novolog FlexPen U-100 Insulin] 100 unit/mL (3 mL) insulin pen See Rx Instructions .ROUTE .COMPLEX Rx Instructions: 1 unit of insulin for every 35 units over 135 insulin glargine [Lantus Solostar U-100 Insulin] 100 unit/mL (3 mL) insulin pen 20 unit subcut BEDTIME promethazine 25 mg tablet 25 mg PO Q4H PRN (Reason: nausea and vomiting) pantoprazole [Protonix] 40 mg tablet,delayed release (DR/EC) 40 mg PO DAILY@0630 Referrals: Physician,None [Primary Care Provider] - 2 days Interventions: ED Discharge Assessment Last Done: 12/21/22 20:16 Discharge Date/Time: 12/21/22 20:21
[2022-12-21 20:01] VITALS: BP 155/91; PULSE 119; RESP 18; TEMP 36.1; O2SAT 100; BMI 27.6
== END 2022-12-21 20:21 | disposition home or self-care (01) ==
PROVIDERS: Emergency Provider Internal Medicine
DX: K08.89 Other specified disorders of teeth and supporting structures (principal); E11.9 Type 2 diabetes mellitus without complications; Z79.4 Long term (current) use of insulin
CPT/HCPCS: 99282; 99283

== ENCOUNTER 2023-01-19 09:19 | Emergency (ER) | payer MEDICAID, SELFPAY ==
[2023-01-19 09:29] VITALS: BP 114/79; PULSE 91; RESP 16; TEMP 36.7; O2SAT 100; BMI 21.7
[2023-01-19 10:32] LABS: MANUAL DIFF FLAG NO
[2023-01-19 10:39] LABS: Basophils Absolute Auto 0.1 X10*3/uL (0.0-0.2); Basophils Percent Auto 0.7 % (0-2); Eosinophils Absolute Auto 0.1 X10*3/uL (0.0-0.4); Eosinophils Percent Auto 0.6 % (0-4); Hematocrit 45.7 % (42.0-52.0); Hemoglobin 14.9 g/dl (14.0-18.0); Imm Gran Abs Auto 0.02 X10*3/uL (0.00-0.03); Imm Gran Pct Auto 0.2 % (0.0-0.4); Lymphocytes Absolute Auto 1.9 X10*3/uL (1.2-4.9); Lymphocytes Percent Auto 22.4 % (20-40); Mean Corpuscular HGB Conc 32.6 g/dl (31.0-36.0); Mean Corpuscular Volume 76.5 fL (80.0-98.0); Mean Platelet Volume 10.2 fL (9.4-12.4); Monocytes Absolute Auto 0.4 X10*3/uL (0.1-1.2); Monocytes Percent Auto 4.6 % (2-11); Neutrophils Absolute Auto 6.2 x10*3/uL (2.0-8.3); Neutrophils Percent Auto 71.5 % (45-73); Platelet Count 277 X10*3/uL (160-400); Red Blood Count 5.97 X10*6/uL (4.60-5.80); Red Cell Distribution Width 14.3 % (11.0-16.0); White Blood Count 8.7 X10*3/uL (4.8-10.8)
[2023-01-19 10:54] LABS: Glucose, Whole Blood 241 mg/dL (60-115)
[2023-01-19 10:57] LABS: Appearance Urine Clear; Color Urine Yellow; Glucose Urine UA >=1000 mg/dL (Negative); Leukocyte Esterase Urine Negative (Negative); Nitrite Urine Negative (Negative); PH 8.5 (5.0-9.0); Specific Gravity - Urine >= 1.030 (1.005-1.025); UMIC TRIGGER UACC YES; Urine Blood Negative (Negative); Urine Ketones 15 mg/dL (Negative); Urine Protein 30 (1+) mg/dL (Neg-Trace)
[2023-01-19 10:59] LABS: Bacteria Urine None Seen (None Seen); Hyaline Casts Urine 0-2 /LPF (0-2); Squamous Epithelial Cell Urine 0-2 /HPF (0-2); WBC Urine 0-5 /HPF (0-5)
[2023-01-19 11:00] LABS: Alanine Aminotransferase 28 U/L (0-40); Albumin Level 4.7 g/dL (3.5-5.0); Alkaline Phosphatase 97 U/L (39-117); Anion Gap 17 (12-20); Aspartate Amino Transferase 33 U/L (5-37); Bilirubin Direct 0.2 mg/dL (0.0-0.5); Bilirubin Total 0.9 mg/dL (0.0-1.0); Blood Urea Nitrogen 16 mg/dL (9-16); Calcium 10.9 mg/dL (8.4-10.2); Carbon Dioxide 22 mmol/L (22-29); Chloride 102 mmol/L (96-108); Creatinine Clr Calc Pharmacy 105.7; Estimated Glomerular Filt Rate > 60; Glucose Random 272 mg/dL (60-115); Potassium 4.5 mmol/L (3.3-5.1); Sodium 136 mmol/L (135-145); Total Protein 8.7 g/dL (6.5-8.0)
--- NOTE | 2023-01-19 11:00 | PC.NURSE ---
iv established, labs drawn and sent. ambulated to bathroom and gave urine sample. pt restless in bed, tearful. continues to complain of left flank pain.
--- NOTE | 2023-01-19 11:01 | ED_ITS ---
HPI - Abdominal Pain General Chief Complaint: Abdominal Pain Stated Complaint: LLQ PAIN W/VOMITING X2 DAYS FROM URGENT CARE PER E Time Seen by Provider: 01/19/23 11:00 Source: patient and EMS Mode of arrival: EMS Limitations: no limitations History of Present Illness HPI narrative: Patient with a known history of DM and gastroparesis and continual vomiting. He is a marijuana smoker, presents with severe pain and vomiting MD elicited complaint: abdominal pain Onset (ago): day(s) Pain Consistency: constant Location: epigastric Severity: moderate Quality: stabbing Radiation: epigastric Related Data Home Medications Medication Instructions Recorded Confirmed insulin aspart U-100 100 unit/mL See Rx Instructions .Route .COMPLEX 12/19/22 12/19/22 (3 mL) subcutaneous pen (Novolog FlexPen U-100 Insulin aspart) insulin glargine 100 unit/mL (3 20 unit subcut BEDTIME 12/19/22 12/19/22 mL) subcutaneous pen (Lantus Solostar U-100 Insulin) pantoprazole 40 mg tablet,delayed 40 mg PO DAILY@0630 12/19/22 12/19/22 release (Protonix) promethazine 25 mg tablet 25 mg PO Q4H PRN nausea and 12/19/22 12/19/22 vomiting Previous Rx's Medication Instructions Recorded amoxicillin 875 mg-potassium 1 tab PO BID 10 days #20 tabs 12/21/22 clavulanate 125 mg tablet morphine 15 mg immediate release 15 mg PO Q6H PRN pain 5 days #10 12/21/22 tablet tabs ondansetron 4 mg disintegrating 4 mg PO Q8H PRN nausea and 01/19/23 tablet vomiting 5 days #14 tabs pantoprazole 40 mg tablet,delayed 40 mg PO DAILY #20 tabs 01/19/23 release (Protonix) Allergies Allergy/AdvReac Type Severity Reaction Status Date / Time diphenhydramine Allergy Anaphylaxis Verified 10/28/22 22:41 [From Benadryl] haloperidol [From Haldol] Allergy Difficulty Verified 10/28/22 22:41 Swallowing Review of Systems Review of Systems Yes all other systems are reviewed and are negative Comments: abdominal pain and vomiting Comments: anxious tearful and vomiting PMFSH Past Medical History Medical History Gates esophagus Diabetes mellitus type 1 Left against medical advice Social History Social History Household Members: Other Household Members Other:: cousin Housing: House Do you presently have visiting nurse or other home services: No Alcohol intake: never Patient Tobacco Use Status: Current everyday Tobacco user Tobacco use type: Cigarette Cigarette Packs Per Day: 0 Cigarettes Per Day: 0 Years Smoked: 10 e-Cigarette/Vaping Use: Never Used Second Hand Smoke Exposure: No Substance Use Type: Marijuana Advance Directives: No Advance Directives Information Provided: Yes service: No Current occupational status: employed Physical Exam ED Vital Signs: Vital Signs - 24 hr 01/19/23 09:29 01/19/23 11:40 Temperature 98.0 F Pulse Rate 91 92 Respiratory Rate 16 16 Blood Pressure 114/79 140/83 H Pulse Oximetry 100 100 Oxygen Delivery Method Room Air Room Air BMI result Body Mass Index 21.7 Const Other: very thin, chronically ill appearing, crying, tearful Nutritional Appearance: malnourished Orientation/consciousness: oriented to person and patient oriented x3 Limitations: no limitations HENMT Head: Yes normal to inspection Ears: external ears normal General nose exam: Normal external nose present Mouth: Normal oral and palatal mucosa present and oropharynx normal Throat: Yes posterior oropharynx normal Eyes General: appearance normal, both eyes and all related structures Neck Neck: Yes normal visual inspection Chest Chest palpation & inspection: normal inspection of the chest Resp Auscultation: clear to auscultation bilaterally Cardio Jugular venous distension: no JVD Rate: regular rate Rhythm: regular rhythm Heart sounds: S1 normal heart sound present and S2 normal heart sound present GI Other: soft abdomen diffusely tender Palpation (GI): Soft to palpation, nontender and No hepatosplenomegaly present Auscultation: normal bowel sounds General: Yes no CVA tenderness Back/Spine/Pelvis Back: no CVA tenderness Skin General skin exam: no rashes or lesions noted Neuro General: oriented to person and patient oriented x3 Cranial nerves: Yes CN's II-XII intact bilaterally Motor exam (neuro): 5/5 motor strength present throughout Extrem General: Yes normal to inspection Psych Other: tearful and anxious Course Reevaluation(s) Reevaluation #1: Patient with likely cyclical vomiting today, no evidence of DKH, sugar down to 145 Time: 14:16 Medical Decision Making Differential Diagnosis Differential Diagnoses: The differential diagnosis associated with the presentation includes (hyperglycemia, dka, gastritis, pancreatitis, hepatitis, and cyclical vomiting were all considered) Admission/Observation Consideration of admission/observation: Escalation of care including admission/observation considered (upon arrival this patient who is a poorly controlled diabetic with DKA was immediately considered for admission) Lab Data 01/19/23 10:28 01/19/23 10:28 Labs: Lab Results 01/19/23 01/19/23 01/19/23 Range/Units 10:28 10:28 10:49 WBC 8.7 (4.8-10.8) X10*3/uL RBC 5.97 H D (4.60-5.80) X10*6/uL Hgb 14.9 D (14.0-18.0) g/dl Hct 45.7 D (42.0-52.0) % MCV 76.5 L (80.0-98.0) fL MCH 25.0 L (27.0-33.0) pg MCHC 32.6 (31.0-36.0) g/dl RDW 14.3 (11.0-16.0) % Plt Count 277 (160-400) X10*3/uL MPV 10.2 (9.4-12.4) fL Immature Gran % (Auto) 0.2 (0.0-0.4) % Neut % (Auto) 71.5 (45-73) % Lymph % (Auto) 22.4 (20-40) % Dougherty % (Auto) 4.6 (2-11) % Eos % (Auto) 0.6 (0-4) % Baso % (Auto) 0.7 (0-2) % Lymph # (Auto) 1.9 (1.2-4.9) X10*3/uL Dougherty # (Auto) 0.4 (0.1-1.2) X10*3/uL Eos # (Auto) 0.1 (0.0-0.4) X10*3/uL Baso # (Auto) 0.1 (0.0-0.2) X10*3/uL Abs Immat Gran (auto) 0.02 (0.00-0.03) X10*3/uL Absolute Neuts (auto) 6.2 (2.0-8.3) x10*3/uL Absolute Nucleated RBC 0.000 (0.0-0.012) X10*3/uL Nucleated RBC % (auto) 0.0 (0.0-0.2) /100WBC Sodium 136 (135-145) mmol/L Potassium 4.5 D (3.3-5.1) mmol/L Chloride 102 (96-108) mmol/L Carbon Dioxide 22 (22-29) mmol/L Anion Gap 17 (12-20) BUN 16 (9-16) mg/dL Creatinine 0.97 (0.5-1.4) mg/dL Estim Creat Clear Calc 105.7 Estimated GFR > 60 POC Glucose (60-115) mg/dL Random Glucose 272 H (60-115) mg/dL Calcium 10.9 H D (8.4-10.2) mg/dL Magnesium 2.0 (1.6-2.6) mg/dL Total Bilirubin 0.9 (0.0-1.0) mg/dL Direct Bilirubin 0.2 (0.0-0.5) mg/dL AST 33 (5-37) U/L ALT 28 (0-40) U/L Alkaline Phosphatase 97 (39-117) U/L Total Protein 8.7 H (6.5-8.0) g/dL Albumin 4.7 (3.5-5.0) g/dL Lipase 7 L (8-78) U/L Urine Color Yellow Urine Appearance Clear Urine pH 8.5 (5.0-9.0) Ur Specific [place] >= 1.030 H (1.005-1.025) Urine Protein 30 (1+) H (Neg-Trace) mg/dL Urine Glucose (UA) >=1000 H (Negative) mg/dL Urine Ketones 15 (Negative) mg/dL Urine Blood Negative (Negative) Urine Nitrite Negative (Negative) Ur Leukocyte Esterase Negative (Negative) Urine RBC 3-5 H (0-2) /HPF Urine WBC 0-5 (0-5) /HPF Ur Squamous Epith Cells 0-2 (0-2) /HPF Urine Bacteria None Seen (None Seen) Hyaline Casts 0-2 (0-2) /LPF Urine Opiates Screen (Not Detect) Urine Fentanyl Screen (Not Detect) Ur Barbiturates Screen (Not Detect) Ur Phencyclidine Scrn (Not Detect) Ur Amphetamines Screen (Not Detect) U Benzodiazepines Scrn (Not Detect) Urine Cocaine Screen (Not Detect) U Marijuana (THC) Screen (Not Detect) 01/19/23 01/19/23 Range/Units 10:49 10:51 WBC (4.8-10.8) X10*3/uL RBC (4.60-5.80) X10*6/uL Hgb (14.0-18.0) g/dl Hct (42.0-52.0) % MCV (80.0-98.0) fL MCH (27.0-33.0) pg MCHC (31.0-36.0) g/dl RDW (11.0-16.0) % Plt Count (160-400) X10*3/uL MPV (9.4-12.4) fL Immature Gran % (Auto) (0.0-0.4) % Neut % (Auto) (45-73) % Lymph % (Auto) (20-40) % Dougherty % (Auto) (2-11) % Eos % (Auto) (0-4) % Baso % (Auto) (0-2) % Lymph # (Auto) (1.2-4.9) X10*3/uL Dougherty # (Auto) (0.1-1.2) X10*3/uL Eos # (Auto) (0.0-0.4) X10*3/uL Baso # (Auto) (0.0-0.2) X10*3/uL Abs Immat Gran (auto) (0.00-0.03) X10*3/uL Absolute Neuts (auto) (2.0-8.3) x10*3/uL Absolute Nucleated RBC (0.0-0.012) X10*3/uL Nucleated RBC % (auto) (0.0-0.2) /100WBC Sodium (135-145) mmol/L Potassium (3.3-5.1) mmol/L Chloride (96-108) mmol/L Carbon Dioxide (22-29) mmol/L Anion Gap (12-20) BUN (9-16) mg/dL Creatinine (0.5-1.4) mg/dL Estim Creat Clear Calc Estimated GFR POC Glucose 241 H (60-115) mg/dL Random Glucose (60-115) mg/dL Calcium (8.4-10.2) mg/dL Magnesium (1.6-2.6) mg/dL Total Bilirubin (0.0-1.0) mg/dL Direct Bilirubin (0.0-0.5) mg/dL AST (5-37) U/L ALT (0-40) U/L Alkaline Phosphatase (39-117) U/L Total Protein (6.5-8.0) g/dL Albumin (3.5-5.0) g/dL Lipase (8-78) U/L Urine Color Urine Appearance Urine pH (5.0-9.0) Ur Specific [place] (1.005-1.025) Urine Protein (Neg-Trace) mg/dL Urine Glucose (UA) (Negative) mg/dL Urine Ketones (Negative) mg/dL Urine Blood (Negative) Urine Nitrite (Negative) Ur Leukocyte Esterase (Negative) Urine RBC (0-2) /HPF Urine WBC (0-5) /HPF Ur Squamous Epith Cells (0-2) /HPF Urine Bacteria (None Seen) Hyaline Casts (0-2) /LPF Urine Opiates Screen Not Detected (Not Detect) Urine Fentanyl Screen Not Detected (Not Detect) Ur Barbiturates Screen Not Detected (Not Detect) Ur Phencyclidine Scrn Not Detected (Not Detect) Ur Amphetamines Screen Not Detected (Not Detect) U Benzodiazepines Scrn Not Detected (Not Detect) Urine Cocaine Screen Not Detected (Not Detect) U Marijuana (THC) Screen POSITIVE H (Not Detect) External Record Review External record reviewed: Inpatient record and Outpatient record Chronic Conditions Patient?s care impacted by: Diabetes Social Determinants Patient?s care significantly limited by Social Determinants of Health including: Low income Medications Administered Discontinued Medications Generic Name Dose Route Start Last Admin Trade Name Freq PRN Reason Stop Dose Admin Sodium Chloride 1,944 mls @ 1,944 mls/hr 01/19/23 11:03 01/19/23 12:50 Ns 30 ml/kg infuse over 1 hr (1944 ml) 01/19/23 12:02 Infused IV Infusion .Q1H STA Promethazine HCl 25 mg/ Sodium 51 mls @ 204 mls/hr 01/19/23 11:03 01/19/23 11:40 Chloride IV 01/19/23 11:04 Infused ONCE ONE Infusion Insulin Human Lispro 5 unit 01/19/23 11:03 01/19/23 11:18 Insulin Lispro 100 Unit/Ml 3 Ml Vial SUBCUT 01/19/23 11:04 5 unit ONCE ONE Administration Lorazepam 2 mg 01/19/23 11:04 01/19/23 11:19 Lorazepam 2 Mg/Ml Vial IVPUSH 01/19/23 11:05 2 mg ONCE ONE Administration Pantoprazole Sodium 40 mg 01/19/23 11:03 01/19/23 11:19 Pantoprazole Sodium 40 Mg/10 Ml Vial IVPUSH 01/19/23 11:04 40 mg ONCE ONE Administration Discharge Plan Discharge Clinical Impression: Cyclical vomiting, Hyperglycemia, Gastroparesis Patient Disposition: Home, Self-Care Instructions: Diabetic Hyperglycemia (ED), Cyclic Vomiting Syndrome (ED) Additional Instructions: marijuana use can cause cyclical vomiting please stop use Prescriptions: New ondansetron 4 mg tablet,disintegrating 4 mg PO Q8H PRN (Reason: nausea and vomiting) 5 Days Qty: 14 0RF pantoprazole [Protonix] 40 mg tablet,delayed release (DR/EC) 40 mg PO DAILY Qty: 20 0RF No Action insulin aspart U-100 [Novolog FlexPen U-100 Insulin] 100 unit/mL (3 mL) insulin pen See Rx Instructions .ROUTE .COMPLEX Rx Instructions: 1 unit of insulin for every 35 units over 135 insulin glargine [Lantus Solostar U-100 Insulin] 100 unit/mL (3 mL) insulin pen 20 unit subcut BEDTIME promethazine 25 mg tablet 25 mg PO Q4H PRN (Reason: nausea and vomiting) pantoprazole [Protonix] 40 mg tablet,delayed release (DR/EC) 40 mg PO DAILY@0630 amoxicillin-pot clavulanate 875-125 mg tablet 1 tab PO BID 10 Days Qty: 20 0RF morphine 15 mg tablet 15 mg PO Q6H PRN (Reason: pain) 5 Days Qty: 10 0RF Rx Instructions: Partial Fill upon patient request. Referrals: Physician,Unknown J [Primary Care Provider] - 5 days
[2023-01-19] MEDS: 0.9 % Sodium Chloride 1,944 ML 1944 ML IV (11:18)
[2023-01-19] MEDS: Insulin Lispro 100 UNIT/ML 3 ML VIAL SUBCUT (11:18)
[2023-01-19] MEDS: Pantoprazole Sodium 40 MG/10 ML VIAL IVPUSH (11:19)
[2023-01-19] MEDS: LORazepam 2 MG/ML VIAL IVPUSH (11:19)
[2023-01-19 11:36] LABS: Lipase 7 U/L (8-78)
[2023-01-19 11:40] VITALS: BP 140/83; PULSE 92; RESP 16; O2SAT 100
[2023-01-19 12:06] LABS: Amphetamine Screen Urine Not Detected (Not Detect); Barbiturates, Urine Not Detected (Not Detect); Benzodiazepines Screen Urine Not Detected (Not Detect); Cannabinoid Screen Urine POSITIVE (Not Detect); Cocaine Screen Urine Not Detected (Not Detect); Fentanyl, urine Not Detected (Not Detect); Opiate Screen Urine Not Detected (Not Detect); Phencyclidine Screen Urine Not Detected (Not Detect)
--- NOTE | 2023-01-19 12:27 | PC.NURSE ---
pt appears more comfortable on stretcher, resting at this time.
[2023-01-19 14:16] LABS: Glucose, Whole Blood 145 mg/dL (60-115)
[2023-01-19 14:28] VITALS: BP 120/57; PULSE 94; RESP 16; TEMP 36.8; O2SAT 100
== END 2023-01-19 14:38 | disposition home or self-care (01) ==
PROVIDERS: Physician Assistant; Emergency Provider Emergency Medicine
DX: R10.32 Left lower quadrant pain (principal); E11.43 Type 2 diabetes mellitus with diabetic autonomic (poly)neuropathy; K31.84 Gastroparesis; R11.15 Cyclical vomiting syndrome unrelated to migraine; F17.210 Nicotine dependence, cigarettes, uncomplicated; Z79.4 Long term (current) use of insulin; Z79.899 Other long term (current) drug therapy; Z71.6 Tobacco abuse counseling
CPT/HCPCS: 36415; 80048; 80076; 80307; 81001; 82947; 83690; 83735; 85025; 96361; 96365; 96375; 99284; 99285; J2060; J2550

== ENCOUNTER 2023-01-21 08:15 | Emergency (ER) | payer MEDICAID, SELFPAY ==
[2023-01-21 08:19] VITALS: BP 130/86; BP 182/132; PULSE 97; PULSE 98; RESP 18; O2SAT 100; O2SAT 99; BMI 19.7
--- NOTE | 2023-01-21 08:27 | ED_ITS ---
HPI - Abdominal Pain General Chief Complaint: Nausea/Vomiting/Diarrhea Stated Complaint: ABD PAIN W/VOMITINGPER EMS Time Seen by Provider: 01/21/23 08:17 Source: patient Mode of arrival: ambulatory Limitations: no limitations History of Present Illness HPI narrative: 27-year-old male with history of Gates's esophagus and DM 1 with history of diabetic gastroparesis presented with severe diffuse abdominal pain similar to his previous episode of gastroparesis with nausea and vomiting, patient also admitted to smoking marijuana. Related Data Home Medications Medication Instructions Recorded Confirmed insulin aspart U-100 100 unit/mL See Rx Instructions .Route .COMPLEX 12/19/22 12/19/22 (3 mL) subcutaneous pen (Novolog FlexPen U-100 Insulin aspart) insulin glargine 100 unit/mL (3 20 unit subcut BEDTIME 12/19/22 12/19/22 mL) subcutaneous pen (Lantus Solostar U-100 Insulin) pantoprazole 40 mg tablet,delayed 40 mg PO DAILY@0630 12/19/22 12/19/22 release (Protonix) promethazine 25 mg tablet 25 mg PO Q4H PRN nausea and 12/19/22 12/19/22 vomiting Previous Rx's Medication Instructions Recorded amoxicillin 875 mg-potassium 1 tab PO BID 10 days #20 tabs 12/21/22 clavulanate 125 mg tablet morphine 15 mg immediate release 15 mg PO Q6H PRN pain 5 days #10 12/21/22 tablet tabs ondansetron 4 mg disintegrating 4 mg PO Q8H PRN nausea and 01/19/23 tablet vomiting 5 days #14 tabs pantoprazole 40 mg tablet,delayed 40 mg PO DAILY #20 tabs 01/19/23 release (Protonix) Allergies Allergy/AdvReac Type Severity Reaction Status Date / Time diphenhydramine Allergy Anaphylaxis Verified 01/21/23 08:32 [From Benadryl] haloperidol [From Haldol] Allergy Difficulty Verified 01/21/23 08:32 Swallowing Review of Systems Review of Systems All other systems are reviewed and are negative Constitutional: Reports as per HPI and Reports no additional constitutional complaints Eyes: Reports as per HPI and Reports no additional eye complaints Reports system reviewed and no additional complaints, except as documented Cardiovascular: Reports as per HPI and Reports no additional cardiovascular complaints Respiratory: Reports as per HPI and Reports no additional respiratory complaints Gastrointestinal: Reports as per HPI and Reports no additional gastrointestinal complaints Genitourinary: Reports no additional female genitourinary complaints Musculoskeletal: Reports no additional musculoskeletal complaints Skin/Breast: Reports system reviewed and no additional complaints, except as docu Psychiatric: Reports no additional psychiatric complaints Endocrine: Reports no additional endocrine complaints Hematologic/Lymphatic: Reports no additional hematologic/lymphatic complaints Allergic/Immunologic: Reports no additional allergic/immunologic complaints Reports system reviewed and no additional complaints, except as documented and Reports Abnormal speech present [facility] Past Medical History Medical History Gates esophagus Diabetes mellitus type 1 Left against medical advice Social History Social History Household Members: Other Household Members Other:: cousin Housing: House Do you presently have visiting nurse or other home services: No Alcohol intake: never Patient Tobacco Use Status: Current everyday Tobacco user Tobacco use type: Cigarette Cigarette Packs Per Day: 0 Cigarettes Per Day: 0 Years Smoked: 10 e-Cigarette/Vaping Use: Never Used Second Hand Smoke Exposure: No Substance Use Type: Marijuana Advance Directives: No service: No Current occupational status: employed Physical Exam ED Vital Signs: Vital Signs - 24 hr 01/21/23 08:19 01/21/23 11:07 01/21/23 12:00 Temperature 98.6 F Pulse Rate 97 89 86 Respiratory Rate 18 14 12 Blood Pressure 130/86 108/74 113/67 Pulse Oximetry 100 99 96 Oxygen Delivery Method Room Air Room Air Room Air BMI result Body Mass Index 19.7 Vital signs have been reviewed as appeared to be correct. Blood pressure normal. Heart rate normal. Respiration rate normal. Temperature normal. Oxygen saturation normal. Appearance: Alert. Oriented X3. No acute distress. Head: Normal external exam. Normocephalic. Atraumatic. No [place] signs noted. No raccoon eyes noted Eyes: PERRLA. EOMI. Conjunctiva and sclera normal. Eyelids normal. ENT: TM's Normal. Pharynx normal. Uvula midline. Moist mucous membranes. No trismus noted. No drooling noted. No muffled voice noted. Neck: Normal inspection. Neck supple. FROM. No adenopathy. Thyroid Normal. No meningeal signs. No neck mass noted. CVS: Normal heart rate and rhythm. Heart sound normal. No murmurs noted. Pulses normal throughout. Respiratory: No respiratory distress. Painless inspiration. Breath sounds normal. No wheezes/rales/rhonchi noted. Chest nontender. No accessory muscle usage noted or decreased air movement noted. Abdomen: Soft and nontender. Bowel sounds normal in all 4 quadrants. No distention noted. No organomegaly noted. No visible injury noted. Back: No CVA tenderness. Full range of motion noted. Skin: Skin warm and dry. Normal skin color. Normal skin turgor. No rashes/lesions/lacerations noted. Extremities: No lower extremity edema. Extremities exhibit normal range of motion. Extremities nontender. Neuro: Oriented X 3. Cranial nerve exam: II-XII are grossly intact No motor deficit. No sensory deficit. Reflexes normal. Course Course Course Narrative: Diabetic gastroparesis, patient feels now able to tolerate p.o. intake. Patient feels stable to be discharged home. Medical Decision Making Differential Diagnosis Differential Diagnoses: The differential diagnosis associated with the presentation includes (Diabetic gastroparesis, marijuana induced emesis, de hydration, electrolyte abnormalities, severe anemia.) Admission/Observation Consideration of admission/observation: Escalation of care including admiss ion/observation considered Lab Data MDM Lab Attestation statement: I reviewed the patient's lab results. 01/21/23 08:40 01/21/23 08:40 Labs: Lab Results 01/21/23 01/21/23 01/21/23 Range/Units 08:27 08:40 08:40 WBC 7.8 (4.8-10.8) X10*3/uL RBC 5.12 (4.60-5.80) X10*6/uL Hgb 12.7 L (14.0-18.0) g/dl Hct 39.0 L (42.0-52.0) % MCV 76.2 L (80.0-98.0) fL MCH 24.8 L (27.0-33.0) pg MCHC 32.6 (31.0-36.0) g/dl RDW 13.9 (11.0-16.0) % Plt Count 244 (160-400) X10*3/uL MPV 10.2 (9.4-12.4) fL Immature Gran % (Auto) 0.3 (0.0-0.4) % Neut % (Auto) 75.5 H (45-73) % Lymph % (Auto) 18.2 L (20-40) % [place] % (Auto) 5.0 (2-11) % Eos % (Auto) 0.4 (0-4) % Baso % (Auto) 0.6 (0-2) % Lymph # (Auto) 1.4 (1.2-4.9) X10*3/uL [place] # (Auto) 0.4 (0.1-1.2) X10*3/uL Eos # (Auto) 0.0 (0.0-0.4) X10*3/uL Baso # (Auto) 0.1 (0.0-0.2) X10*3/uL Abs Immat Gran (auto) 0.02 (0.00-0.03) X10*3/uL Absolute Neuts (auto) 5.9 (2.0-8.3) x10*3/uL Absolute Nucleated RBC 0.000 (0.0-0.012) X10*3/uL Nucleated RBC % (auto) 0.0 (0.0-0.2) /100WBC Sodium 137 (135-145) mmol/L Potassium 4.5 (3.3-5.1) mmol/L Chloride 102 (96-108) mmol/L Carbon Dioxide 19 L (22-29) mmol/L Anion Gap 21 H (12-20) BUN 17 H (9-16) mg/dL Creatinine 0.88 (0.5-1.4) mg/dL Estim Creat Clear Calc 118.3 Estimated GFR > 60 POC Glucose 315 H (60-115) mg/dL Random Glucose 355 H* (60-115) mg/dL Calcium 9.7 D (8.4-10.2) mg/dL Total Bilirubin 1.2 H (0.0-1.0) mg/dL Direct Bilirubin 0.3 (0.0-0.5) mg/dL AST 17 (5-37) U/L ALT 21 (0-40) U/L Alkaline Phosphatase 86 (39-117) U/L Total Protein 7.2 (6.5-8.0) g/dL Albumin 4.3 (3.5-5.0) g/dL Lipase 5 L (8-78) U/L Urine Color Urine Appearance Urine pH (5.0-9.0) Ur Specific [place] (1.005-1.025) Urine Protein (Neg-Trace) mg/dL Urine Glucose (UA) (Negative) mg/dL Urine Ketones (Negative) mg/dL Urine Blood (Negative) Urine Nitrite (Negative) Ur Leukocyte Esterase (Negative) Urine RBC (0-2) /HPF Urine WBC (0-5) /HPF Ur Squamous Epith Cells (0-2) /HPF Urine Bacteria (None Seen) Hyaline Casts (0-2) /LPF 01/21/23 01/21/23 Range/Units 11:17 12:10 WBC (4.8-10.8) X10*3/uL RBC (4.60-5.80) X10*6/uL Hgb (14.0-18.0) g/dl Hct (42.0-52.0) % MCV (80.0-98.0) fL MCH (27.0-33.0) pg MCHC (31.0-36.0) g/dl RDW (11.0-16.0) % Plt Count (160-400) X10*3/uL MPV (9.4-12.4) fL Immature Gran % (Auto) (0.0-0.4) % Neut % (Auto) (45-73) % Lymph % (Auto) (20-40) % [place] % (Auto) (2-11) % Eos % (Auto) (0-4) % Baso % (Auto) (0-2) % Lymph # (Auto) (1.2-4.9) X10*3/uL [place] # (Auto) (0.1-1.2) X10*3/uL Eos # (Auto) (0.0-0.4) X10*3/uL Baso # (Auto) (0.0-0.2) X10*3/uL Abs Immat Gran (auto) (0.00-0.03) X10*3/uL Absolute Neuts (auto) (2.0-8.3) x10*3/uL Absolute Nucleated RBC (0.0-0.012) X10*3/uL Nucleated RBC % (auto) (0.0-0.2) /100WBC Sodium (135-145) mmol/L Potassium (3.3-5.1) mmol/L Chloride (96-108) mmol/L Carbon Dioxide (22-29) mmol/L Anion Gap (12-20) BUN (9-16) mg/dL Creatinine (0.5-1.4) mg/dL Estim Creat Clear Calc Estimated GFR POC Glucose 392 H* (60-115) mg/dL Random Glucose (60-115) mg/dL Calcium (8.4-10.2) mg/dL Total Bilirubin (0.0-1.0) mg/dL Direct Bilirubin (0.0-0.5) mg/dL AST (5-37) U/L ALT (0-40) U/L Alkaline Phosphatase (39-117) U/L Total Protein (6.5-8.0) g/dL Albumin (3.5-5.0) g/dL Lipase (8-78) U/L Urine Color Yellow Urine Appearance Clear Urine pH 5.5 (5.0-9.0) Ur Specific [place] >= 1.030 H (1.005-1.025) Urine Protein Negative (Neg-Trace) mg/dL Urine Glucose (UA) >=1000 H (Negative) mg/dL Urine Ketones >=160 (Negative) mg/dL Urine Blood Negative (Negative) Urine Nitrite Negative (Negative) Ur Leukocyte Esterase Negative (Negative) Urine RBC 0-2 (0-2) /HPF Urine WBC 0-5 (0-5) /HPF Ur Squamous Epith Cells 0-2 (0-2) /HPF Urine Bacteria None Seen (None Seen) Hyaline Casts 0-2 (0-2) /LPF ABG Data Attestation ABG: I personally reviewed and interpreted this ABG as follows: Medications Administered Discontinued Medications Generic Name Dose Route Start Last Admin Trade Name Wilfredo PRN Reason Stop Dose Admin Hydromorphone HCl 1 mg 01/21/23 08:24 01/21/23 08:57 Hydromorphone Hcl 1 Mg/Ml Syringe IVPUSH 01/21/23 08:25 1 mg ONCE ONE Administration Protocol Sodium Chloride 1,000 mls @ 999 mls/hr 01/21/23 08:24 01/21/23 10:11 Ns IV 01/21/23 09:24 Infused .Q1H1M ONE Infusion Metoclopramide HCl 10 mg 01/21/23 08:24 01/21/23 08:53 Metoclopramide Hcl 10 Mg/2 Ml Vial IVPUSH 01/21/23 08:25 10 mg ONCE ONE Administration Discharge Plan Discharge Clinical Impression: Gastroparesis, Abdominal pain Patient Disposition: Home, Self-Care Instructions: Gastroparesis (ED) Additional Instructions: Do not smoke marijuana. Prescriptions: No Action insulin aspart U-100 [Novolog FlexPen U-100 Insulin] 100 unit/mL (3 mL) insulin pen See Rx Instructions .ROUTE .COMPLEX Rx Instructions: 1 unit of insulin for every 35 units over 135 insulin glargine [Lantus Solostar U-100 Insulin] 100 unit/mL (3 mL) insulin pen 20 unit subcut BEDTIME promethazine 25 mg tablet 25 mg PO Q4H PRN (Reason: nausea and vomiting) pantoprazole [Protonix] 40 mg tablet,delayed release (DR/EC) 40 mg PO DAILY@0630 amoxicillin-pot clavulanate 875-125 mg tablet 1 tab PO BID 10 Days Qty: 20 0RF morphine 15 mg tablet 15 mg PO Q6H PRN (Reason: pain) 5 Days Qty: 10 0RF Rx Instructions: Partial Fill upon patient request. ondansetron 4 mg tablet,disintegrating 4 mg PO Q8H PRN (Reason: nausea and vomiting) 5 Days Qty: 14 0RF pantoprazole [Protonix] 40 mg tablet,delayed release (DR/EC) 40 mg PO DAILY Qty: 20 0RF Referrals: [facility] [Primary Care Provider] -
[2023-01-21 08:33] LABS: Glucose, Whole Blood 315 mg/dL (60-115)
[2023-01-21] MEDS: Metoclopramide HCl 10 MG/2 ML VIAL IVPUSH (08:53)
[2023-01-21] MEDS: HYDROmorphone HCl 1 MG/ML SYRINGE IVPUSH (08:57)
[2023-01-21 08:58] LABS: MANUAL DIFF FLAG NO
[2023-01-21] MEDS: 0.9 % Sodium Chloride 1,000 ML 999 ML IV (08:58)
--- NOTE | 2023-01-21 09:13 | PC.NURSE ---
pt c/o 05/30 sharp abd pain accompanied by vomiting that started yesterday. he reports that he was seen here 2 days ago for the same thing and it started back up yesterday. he reports that he smokes THC once in a while and last smoked 2 days ago. denies any non-prescriptive drug use. 20g iv inserted in L wrist, labs drawn, meds given per order. pt resting quietly at this time.
[2023-01-21 09:14] LABS: Basophils Absolute Auto 0.1 X10*3/uL (0.0-0.2); Basophils Percent Auto 0.6 % (0-2); Eosinophils Percent Auto 0.4 % (0-4); Hemoglobin 12.7 g/dl (14.0-18.0); Imm Gran Abs Auto 0.02 X10*3/uL (0.00-0.03); Imm Gran Pct Auto 0.3 % (0.0-0.4); Lymphocytes Absolute Auto 1.4 X10*3/uL (1.2-4.9); Lymphocytes Percent Auto 18.2 % (20-40); Mean Corpuscular HGB Conc 32.6 g/dl (31.0-36.0); Mean Corpuscular Hemoglobin 24.8 pg (27.0-33.0); Mean Corpuscular Volume 76.2 fL (80.0-98.0); Mean Platelet Volume 10.2 fL (9.4-12.4); Monocytes Absolute Auto 0.4 X10*3/uL (0.1-1.2); Neutrophils Absolute Auto 5.9 x10*3/uL (2.0-8.3); Neutrophils Percent Auto 75.5 % (45-73); Platelet Count 244 X10*3/uL (160-400); Red Blood Count 5.12 X10*6/uL (4.60-5.80); Red Cell Distribution Width 13.9 % (11.0-16.0); White Blood Count 7.8 X10*3/uL (4.8-10.8)
[2023-01-21 09:17] LABS: Alanine Aminotransferase 21 U/L (0-40); Albumin Level 4.3 g/dL (3.5-5.0); Alkaline Phosphatase 86 U/L (39-117); Anion Gap 21 (12-20); Aspartate Amino Transferase 17 U/L (5-37); Bilirubin Direct 0.3 mg/dL (0.0-0.5); Bilirubin Total 1.2 mg/dL (0.0-1.0); Blood Urea Nitrogen 17 mg/dL (9-16); Calcium 9.7 mg/dL (8.4-10.2); Carbon Dioxide 19 mmol/L (22-29); Chloride 102 mmol/L (96-108); Creatinine Clr Calc Pharmacy 118.3; Estimated Glomerular Filt Rate > 60; Lipase 5 U/L (8-78); Potassium 4.5 mmol/L (3.3-5.1); Sodium 137 mmol/L (135-145); Total Protein 7.2 g/dL (6.5-8.0)
[2023-01-21 09:18] LABS: Glucose Random 355 mg/dL (60-115)
[2023-01-21 11:07] VITALS: BP 108/74; PULSE 89; RESP 14; TEMP 37; O2SAT 99
[2023-01-21 11:27] LABS: Appearance Urine Clear; Color Urine Yellow; Glucose Urine UA >=1000 mg/dL (Negative); Leukocyte Esterase Urine Negative (Negative); Nitrite Urine Negative (Negative); PH 5.5 (5.0-9.0); Specific Gravity - Urine >= 1.030 (1.005-1.025); UMIC TRIGGER UACC YES; Urine Blood Negative (Negative); Urine Ketones >=160 mg/dL (Negative); Urine Protein Negative (Neg-Trace)
[2023-01-21 11:35] LABS: Bacteria Urine None Seen (None Seen); Hyaline Casts Urine 0-2 /LPF (0-2); RBC Urine 0-2 /HPF (0-2); Squamous Epithelial Cell Urine 0-2 /HPF (0-2); WBC Urine 0-5 /HPF (0-5)
[2023-01-21 12:00] VITALS: BP 113/67; PULSE 86; RESP 12; O2SAT 96
[2023-01-21 12:13] LABS: Glucose, Whole Blood 392 mg/dL (60-115)
--- NOTE | 2023-01-21 12:19 | PC.NURSE ---
POC 395, aware
== END 2023-01-21 12:47 | disposition home or self-care (01) ==
PROVIDERS: Emergency Provider Emergency Medicine
DX: E10.43 Type 1 diabetes mellitus with diabetic autonomic (poly)neuropathy (principal); Z79.4 Long term (current) use of insulin; Z79.899 Other long term (current) drug therapy
CPT/HCPCS: 36415; 80048; 80076; 81001; 82947; 83690; 85025; 96361; 96374; 96375; 99284; J1170; J2765

== ENCOUNTER 2023-01-23 06:50 | Emergency (ER) | payer MEDICAID, SELFPAY ==
--- NOTE | ~2023-01-23 | XR_ITS ---
EXAMINATION: XR ABDOMEN COMPLETE CLINICAL INDICATION: Abdominal pain. COMPARISON: 12/19/2022 TECHNIQUE: Supine and upright views of the abdomen. FINDINGS: Imaged lung bases are clear. No free intraperitoneal air is seen. No abnormally dilated loops of small and large bowel are appreciated. No bowel air-fluid levels. There is moderate gas and stool throughout the colon and in the rectum. Regional osseous structures are intact. XR/XR abdomen min 2V IMPRESSION: Unremarkable examination.
[2023-01-23 07:19] VITALS: BP 125/72; BP 136/83; PULSE 85; PULSE 98; RESP 18; TEMP 36.8; O2SAT 100; BMI 19.5
[2023-01-23 07:22] VITALS: BP 136/88; PULSE 85; RESP 18; TEMP 36.8; O2SAT 100
[2023-01-23] MEDS: 0.9 % Sodium Chloride 1,000 ML 999 ML IV (08:09)
[2023-01-23] MEDS: Ketorolac Tromethamine 15 MG/ML VIAL IVPUSH (08:10)
[2023-01-23] MEDS: Famotidine/PF 20 MG/2 ML VIAL IVPUSH (08:12)
[2023-01-23 08:23] VITALS: BP 126/82; PULSE 87; RESP 14; O2SAT 96
--- NOTE | 2023-01-23 08:31 | PC.NURSE ---
assumed care of this pt at 0720. pt a&o x4, moaning, rating 10/10 abdominal pain. pt changed over to hospital attire, IV inserted, placed on monitor, medicated per oct. tech at bedside drawing labs. corey. tootie
--- NOTE | 2023-01-23 08:43 | PHA.MEDREC ---
Pharmacy Consult ? Medication Reconciliation Pharmacy has completed the medication reconciliation. Spoke to patient at bedside, very groggy. Able to name gabapentin, noted oxycodone but no claim history or RX on PDMP. Agreeable to most meds and did note that Lantus is taken in the morning
[2023-01-23 09:13] LABS: MANUAL DIFF FLAG NO
[2023-01-23 09:16] LABS: Basophils Absolute Auto 0.1 X10*3/uL (0.0-0.2); Basophils Percent Auto 1.1 % (0-2); Eosinophils Percent Auto 0.5 % (0-4); Hematocrit 36.4 % (42.0-52.0); Hemoglobin 11.8 g/dl (14.0-18.0); Imm Gran Abs Auto 0.02 X10*3/uL (0.00-0.03); Imm Gran Pct Auto 0.4 % (0.0-0.4); Lymphocytes Absolute Auto 1.3 X10*3/uL (1.2-4.9); Lymphocytes Percent Auto 23.5 % (20-40); Mean Corpuscular HGB Conc 32.4 g/dl (31.0-36.0); Mean Corpuscular Hemoglobin 25.4 pg (27.0-33.0); Mean Corpuscular Volume 78.4 fL (80.0-98.0); Monocytes Absolute Auto 0.2 X10*3/uL (0.1-1.2); Monocytes Percent Auto 4.1 % (2-11); Neutrophils Absolute Auto 3.9 x10*3/uL (2.0-8.3); Neutrophils Percent Auto 70.4 % (45-73); Platelet Count 210 X10*3/uL (160-400); Red Blood Count 4.64 X10*6/uL (4.60-5.80); Red Cell Distribution Width 13.9 % (11.0-16.0); White Blood Count 5.6 X10*3/uL (4.8-10.8)
[2023-01-23 09:28] LABS: Lactic Acid 0.9 mmol/L (0.5-2.0)
[2023-01-23 10:00] VITALS: BP 118/88; PULSE 84; RESP 17; O2SAT 100
[2023-01-23 11:29] VITALS: RESP 18
[2023-01-23] MEDS: Morphine Sulfate 4 MG/ML CARTRIDGE IVPUSH (11:29)
[2023-01-23 11:40] LABS: Alanine Aminotransferase 15 U/L (0-40); Albumin Level 3.4 g/dL (3.5-5.0); Alkaline Phosphatase 65 U/L (39-117); Anion Gap 13 (12-20); Aspartate Amino Transferase 17 U/L (5-37); Bilirubin Total 0.6 mg/dL (0.0-1.0); Blood Urea Nitrogen 9 mg/dL (9-16); Calcium 8.3 mg/dL (8.4-10.2); Carbon Dioxide 21 mmol/L (22-29); Chloride 108 mmol/L (96-108); Creatinine Clr Calc Pharmacy 154.3; Estimated Glomerular Filt Rate > 60; Glucose Random 252 mg/dL (60-115); Lipase 4 U/L (8-78); Sodium 138 mmol/L (135-145); Total Protein 5.9 g/dL (6.5-8.0)
[2023-01-23 12:00] VITALS: BP 136/86; PULSE 79; RESP 18; O2SAT 100
[2023-01-23 12:31] LABS: Appearance Urine Clear; Color Urine Yellow; Glucose Urine UA >=1000 mg/dL (Negative); Leukocyte Esterase Urine Negative (Negative); Nitrite Urine Negative (Negative); Specific Gravity - Urine 1.025 (1.005-1.025); UMIC TRIGGER UACC YES; Urine Blood Negative (Negative); Urine Ketones 40 mg/dL (Negative); Urine Protein Negative (Neg-Trace)
[2023-01-23 12:39] LABS: Bacteria Urine None Seen (None Seen); Hyaline Casts Urine 0-2 /LPF (0-2); RBC Urine 0-2 /HPF (0-2); Squamous Epithelial Cell Urine 0-2 /HPF (0-2); WBC Urine 0-5 /HPF (0-5)
[2023-01-23 12:42] LABS: Amphetamine Screen Urine Not Detected (Not Detect); Barbiturates, Urine Not Detected (Not Detect); Benzodiazepines Screen Urine Not Detected (Not Detect); Cannabinoid Screen Urine POSITIVE (Not Detect); Cocaine Screen Urine Not Detected (Not Detect); Fentanyl, urine Not Detected (Not Detect); Opiate Screen Urine Not Detected (Not Detect); Phencyclidine Screen Urine Not Detected (Not Detect)
--- NOTE | 2023-01-23 13:41 | ED_ITS ---
HPI - Abdominal Pain General Chief Complaint: Abdominal Pain Stated Complaint: nausea/vomiting Time Seen by Provider: 01/23/23 07:21 Source: patient Mode of arrival: EMS Limitations: no limitations History of Present Illness HPI narrative: 27-year-old male with history of chronic abdominal he pain, gastroparesis pr esents with severe upper abdominal pain. Pain is constant. Does not radiate. Associated with significant nausea vomiting. The emesis has been nonbloody, nonbilious. He is passing flatus. Denies any dark black stools. Symptoms are severe. There is no clear relieving or exacerbating features. Symptoms are similar to previous episodes Related Data Home Medications Medication Instructions Recorded Confirmed insulin aspart U-100 100 unit/mL See Rx Instructions .Route .COMPLEX 12/19/22 01/23/23 (3 mL) subcutaneous pen (Novolog FlexPen U-100 Insulin aspart) insulin glargine 100 unit/mL (3 20 unit subcut DAILY 12/19/22 01/23/23 mL) subcutaneous pen (Lantus Solostar U-100 Insulin) pantoprazole 40 mg tablet,delayed 40 mg PO DAILY@0630 12/19/22 01/23/23 release (Protonix) acetaminophen 325 mg tablet 650 mg PO Q6H PRN Pain 01/23/23 01/23/23 gabapentin 300 mg capsule 300 mg PO BID 01/23/23 01/23/23 promethazine 25 mg tablet 25 mg PO TID PRN nausea/vomiting 01/23/23 01/23/23 Previous Rx's Medication Instructions Recorded dicyclomine 20 mg tablet 20 mg PO QID #60 tabs 01/23/23 vemeixern-muhdjxppt-qiozteby-scop 1 tab PO BID PRN Nausea, vomiting 01/23/23 16.2 mg-0.1037 mg-0.0194 mg tablet #14 tabs () Allergies Allergy/AdvReac Type Severity Reaction Status Date / Time diphenhydramine Allergy Anaphylaxis Verified 01/21/23 08:32 [From Benadryl] haloperidol [From Haldol] Allergy Difficulty Verified 01/21/23 08:32 Swallowing Review of Systems Review of Systems CONSTITUTIONAL: Denies weight loss, fever and chills. HEENT: Denies changes in vision and hearing. RESPIRATORY: Denies SOB and cough. CV: Denies palpitations no CP. GI: Positive abdominal pain, nausea, vomiting. : Denies dysuria and urinary frequency. MSK: Denies myalgia and joint pain. SKIN: Denies rash and pruritus. NEUROLOGICAL: Denies headache and syncope. PSYCHIATRIC: Denies recent changes in mood. Denies anxiety and depression. All other ROS are negative unless in HPI PMFSH Past Medical History Medical History Gates esophagus Diabetes mellitus type 1 Left against medical advice Social History Social History Household Members: Other Household Members Other:: cousin Housing: House Do you presently have visiting nurse or other home services: No Alcohol intake: never Patient Tobacco Use Status: Current everyday Tobacco user Tobacco use type: Cigarette Cigarette Packs Per Day: 0 Cigarettes Per Day: 0 Years Smoked: 10 Smoked in Last 30 Days: Yes e-Cigarette/Vaping Use: Never Used Second Hand Smoke Exposure: No Use of substances other than those prescribed or required for medical reasons: No Substance Use Type: Marijuana Advance Directives: No Advance Directives Information Provided: No service: No Current occupational status: employed Physical Exam ED Vital Signs: Vital Signs - 24 hr 01/23/23 07:19 01/23/23 07:22 01/23/23 08:23 Temperature 98.3 F 98.3 F Pulse Rate 85 85 87 Respiratory Rate 18 18 14 Blood Pressure 136/83 136/88 126/82 Pulse Oximetry 100 100 96 Oxygen Delivery Method Room Air Room Air Room Air 01/23/23 11:29 01/23/23 10:00 01/23/23 12:00 Temperature Pulse Rate 84 79 Respiratory Rate 18 17 18 Blood Pressure 118/88 136/86 Pulse Oximetry 100 100 Oxygen Delivery Method Room Air Room Air BMI result Body Mass Index 19.5 GEN: Well developed, no acute distress, alert, oriented HEENT: Normocephalic, atraumatic, normal external ears, nose appears normal, no oropharyngeal edema or exudates Eyes: Normal to appearance Neck: Supple, no lymphadenopathy Respiratory: Talks in complete sentences, no respiratory distress, clear to aus cultation bilaterally Cardiovascular: Regular rate and rhythm, no murmurs rubs or gallops Abdomen: Soft, tender, nondistended, no guarding, no rebound Back: No CVA tenderness Extremities: No clubbing cyanosis or edema Neurologic: No focal neurologic deficits, cranial nerves 2-12 intact, strength is 5/5 bilaterally Skin: No rash Course Course Course Narrative: 27-year-old male with history of gastroparesis, frequent visits to the emergency department, most recently here 2 days ago presents with abdominal pain, nausea vomiting. Laboratory analysis revealed elevated white blood cell count but no significant anion gap. His lipase is normal. LFTs were within normal limits. Patient tested positive for marijuana. X-ray was inconsistent with bowel obstruction or ileus. There is a moderate amount of stool in the nonspecific bowel gas pattern. Reevaluation(s) Reevaluation #1: Patient is feeling much better. He still concerned that he has back pain. I believe the back pain is most likely secondary to muscle aches from heaving. Patient has not been on any preventive medications according to him. Would like to try dicyclomine or . Patient has a history of an allergy to Haldol. Otherwise, patient may benefit from Reglan 10 mg before eating and before bed. Time: 14:15 Medical Decision Making Medical Decision Making MDM Narrative: 27-year-old male presents with nausea vomiting abdominal pain. Examination revealed tenderness without rebound or guarding. Abduct will order an x-ray to rule out obstruction. Suspect gastroparesis. Differential diagnosis could incl ude ileus, bowel obstruction, gastroenteritis, IBD, IBS, pain medication seeking behavior. Also, THC hyperemesis. Will provide patient with IV fluids, antiemetics, analgesia. Differential Diagnosis Differential Diagnoses: The differential diagnosis associated with the presentation includes (See above) Gastroparesis Admission/Observation Consideration of admission/observation: Escalation of care including admission/observation considered Lab Data [facility] Lab Attestation statement: I reviewed the patient's lab results. 01/23/23 09:07 01/23/23 08:45 Labs: Lab Results 01/23/23 01/23/23 01/23/23 Range/Units 08:45 09:07 09:07 WBC 5.6 (4.8-10.8) X10*3/uL RBC 4.64 (4.60-5.80) X10*6/uL Hgb 11.8 L (14.0-18.0) g/dl Hct 36.4 L (42.0-52.0) % MCV 78.4 L (80.0-98.0) fL MCH 25.4 L (27.0-33.0) pg MCHC 32.4 (31.0-36.0) g/dl RDW 13.9 (11.0-16.0) % Plt Count 210 (160-400) X10*3/uL MPV 11.0 (9.4-12.4) fL Immature Gran % (Auto) 0.4 (0.0-0.4) % Neut % (Auto) 70.4 (45-73) % Lymph % (Auto) 23.5 (20-40) % [place] % (Auto) 4.1 (2-11) % Eos % (Auto) 0.5 (0-4) % Baso % (Auto) 1.1 (0-2) % Lymph # (Auto) 1.3 (1.2-4.9) X10*3/uL [place] # (Auto) 0.2 (0.1-1.2) X10*3/uL Eos # (Auto) 0.0 (0.0-0.4) X10*3/uL Baso # (Auto) 0.1 (0.0-0.2) X10*3/uL Abs Immat Gran (auto) 0.02 (0.00-0.03) X10*3/uL Absolute Neuts (auto) 3.9 (2.0-8.3) x10*3/uL Absolute Nucleated RBC 0.000 (0.0-0.012) X10*3/uL Nucleated RBC % (auto) 0.0 (0.0-0.2) /100WBC Sodium 138 (135-145) mmol/L Potassium 4.0 (3.3-5.1) mmol/L Chloride 108 (96-108) mmol/L Carbon Dioxide 21 L (22-29) mmol/L Anion Gap 13 (12-20) BUN 9 (9-16) mg/dL Creatinine 0.67 (0.5-1.4) mg/dL Estim Creat Clear Calc 154.3 Estimated GFR > 60 Random Glucose 252 H (60-115) mg/dL Lactic Acid 0.9 (0.5-2.0) mmol/L Calcium 8.3 L D (8.4-10.2) mg/dL Total Bilirubin 0.6 (0.0-1.0) mg/dL AST 17 (5-37) U/L ALT 15 (0-40) U/L Alkaline Phosphatase 65 (39-117) U/L Total Protein 5.9 L (6.5-8.0) g/dL Albumin 3.4 L (3.5-5.0) g/dL Lipase 4 L (8-78) U/L Urine Color Urine Appearance Urine pH (5.0-9.0) Ur Specific [place] (1.005-1.025) Urine Protein (Neg-Trace) mg/dL Urine Glucose (UA) (Negative) mg/dL Urine Ketones (Negative) mg/dL Urine Blood (Negative) Urine Nitrite (Negative) Ur Leukocyte Esterase (Negative) Urine RBC (0-2) /HPF Urine WBC (0-5) /HPF Ur Squamous Epith Cells (0-2) /HPF Urine Bacteria (None Seen) Hyaline Casts (0-2) /LPF Urine Opiates Screen (Not Detect) Urine Fentanyl Screen (Not Detect) Ur Barbiturates Screen (Not Detect) Ur Phencyclidine Scrn (Not Detect) Ur Amphetamines Screen (Not Detect) U Benzodiazepines Scrn (Not Detect) Urine Cocaine Screen (Not Detect) U Marijuana (THC) Screen (Not Detect) 01/23/23 01/23/23 Range/Units 12:24 12:24 WBC (4.8-10.8) X10*3/uL RBC (4.60-5.80) X10*6/uL Hgb (14.0-18.0) g/dl Hct (42.0-52.0) % MCV (80.0-98.0) fL MCH (27.0-33.0) pg MCHC (31.0-36.0) g/dl RDW (11.0-16.0) % Plt Count (160-400) X10*3/uL MPV (9.4-12.4) fL Immature Gran % (Auto) (0.0-0.4) % Neut % (Auto) (45-73) % Lymph % (Auto) (20-40) % [place] % (Auto) (2-11) % Eos % (Auto) (0-4) % Baso % (Auto) (0-2) % Lymph # (Auto) (1.2-4.9) X10*3/uL [place] # (Auto) (0.1-1.2) X10*3/uL Eos # (Auto) (0.0-0.4) X10*3/uL Baso # (Auto) (0.0-0.2) X10*3/uL Abs Immat Gran (auto) (0.00-0.03) X10*3/uL Absolute Neuts (auto) (2.0-8.3) x10*3/uL Absolute Nucleated RBC (0.0-0.012) X10*3/uL Nucleated RBC % (auto) (0.0-0.2) /100WBC Sodium (135-145) mmol/L Potassium (3.3-5.1) mmol/L Chloride (96-108) mmol/L Carbon Dioxide (22-29) mmol/L Anion Gap (12-20) BUN (9-16) mg/dL Creatinine (0.5-1.4) mg/dL Estim Creat Clear Calc Estimated GFR Random Glucose (60-115) mg/dL Lactic Acid (0.5-2.0) mmol/L Calcium (8.4-10.2) mg/dL Total Bilirubin (0.0-1.0) mg/dL AST (5-37) U/L ALT (0-40) U/L Alkaline Phosphatase (39-117) U/L Total Protein (6.5-8.0) g/dL Albumin (3.5-5.0) g/dL Lipase (8-78) U/L Urine Color Yellow Urine Appearance Clear Urine pH 7.0 (5.0-9.0) Ur Specific [place] 1.025 (1.005-1.025) Urine Protein Negative (Neg-Trace) mg/dL Urine Glucose (UA) >=1000 H (Negative) mg/dL Urine Ketones 40 (Negative) mg/dL Urine Blood Negative (Negative) Urine Nitrite Negative (Negative) Ur Leukocyte Esterase Negative (Negative) Urine RBC 0-2 (0-2) /HPF Urine WBC 0-5 (0-5) /HPF Ur Squamous Epith Cells 0-2 (0-2) /HPF Urine Bacteria None Seen (None Seen) Hyaline Casts 0-2 (0-2) /LPF Urine Opiates Screen Not Detected (Not Detect) Urine Fentanyl Screen Not Detected (Not Detect) Ur Barbiturates Screen Not Detected (Not Detect) Ur Phencyclidine Scrn Not Detected (Not Detect) Ur Amphetamines Screen Not Detected (Not Detect) U Benzodiazepines Scrn Not Detected (Not Detect) Urine Cocaine Screen Not Detected (Not Detect) U Marijuana (THC) Screen POSITIVE H (Not Detect) Independent Interpretation I performed an independent interpretation of an: Plain X-Ray (Abdomen: Nonspecific bowel gas pattern, moderate stool, no bowel obstruction or ileus) External Record Review External record reviewed: Prior outpatient labs Prescription Management I considered prescription management with: Pain Medication Chronic Conditions Patient?s care impacted by: Diabetes Medications Administered Discontinued Medications Generic Name Dose Route Start Last Admin Trade Name Freq PRN Reason Stop Dose Admin Famotidine 20 mg 01/23/23 07:25 01/23/23 08:12 Famotidine/Pf 20 Mg/2 Ml Vial IVPUSH 01/23/23 07:26 20 mg ONCE ONE Administration Sodium Chloride 1,000 mls @ 999 mls/hr 01/23/23 07:30 01/23/23 10:32 Ns IV 01/23/23 08:30 Infused .Q1H1M JELENA Infusion Promethazine HCl 12.5 mg/ 50.5 mls @ 202 mls/hr 01/23/23 07:28 01/23/23 09:41 Sodium Chloride IV 01/23/23 07:29 Infused ONCE ONE Infusion Ketorolac Tromethamine 15 mg 01/23/23 07:31 01/23/23 08:10 Ketorolac Tromethamine 15 Mg/Ml Vial IVPUSH 01/23/23 07:32 15 mg ONCE ONE Administration Morphine Sulfate 4 mg 01/23/23 11:21 01/23/23 11:29 Morphine Sulfate 4 Mg/Ml Cartridge IVPUSH 01/23/23 11:22 4 mg ONCE ONE Administration Protocol Discharge Plan Discharge Clinical Impression: Gastroparesis, Abdominal pain Patient Disposition: Home, Self-Care Instructions: Abdominal Pain (ED), Gastroparesis (ED) Prescriptions: New dicyclomine 20 mg tablet 20 mg PO QID Qty: 60 0RF Rx Instructions: Take 30 minutes before eating, 30 minutes before bed ievvpodtc-snhcgx-yzeriier-scop [] 16.2-0.1037 -0.0194 mg tablet 1 tab PO BID PRN (Reason: Nausea, vomiting) Qty: 14 0RF No Action insulin aspart U-100 [Novolog FlexPen U-100 Insulin] 100 unit/mL (3 mL) insulin pen See Rx Instructions .ROUTE .COMPLEX Rx Instructions: 1 unit of insulin for every 35 units over 135 insulin glargine [Lantus Solostar U-100 Insulin] 100 unit/mL (3 mL) insulin pen 20 unit subcut DAILY pantoprazole [Protonix] 40 mg tablet,delayed release (DR/EC) 40 mg PO DAILY@0630 promethazine 25 mg tablet 25 mg PO TID PRN (Reason: nausea/vomiting) gabapentin 300 mg capsule 300 mg PO BID acetaminophen 325 mg Tablet 650 mg PO Q6H PRN (Reason: Pain) Referrals: [facility] [Primary Care Provider] - 2 days
== END 2023-01-23 14:57 | disposition home or self-care (01) ==
PROVIDERS: Emergency Provider Emergency Medicine
DX: E10.43 Type 1 diabetes mellitus with diabetic autonomic (poly)neuropathy (principal); K31.84 Gastroparesis; R10.9 Unspecified abdominal pain; F17.210 Nicotine dependence, cigarettes, uncomplicated; F12.90 Cannabis use, unspecified, uncomplicated; Z79.4 Long term (current) use of insulin; Z79.899 Other long term (current) drug therapy
CPT/HCPCS: 36415; 74019; 80053; 80307; 81001; 83605; 83690; 85025; 96361; 96374; 96375; 99285; J1885; J2270; J2550

== ENCOUNTER 2023-02-28 02:37 | Emergency (ER) | payer MEDICAID, SELFPAY ==
[2023-02-28 02:48] VITALS: BP 118/70; BP 118/88; PULSE 78; PULSE 93; RESP 17; TEMP 36.8; O2SAT 99; BMI 21.0
[2023-02-28 02:56] LABS: Glucose, Whole Blood 106 mg/dL (60-115)
--- NOTE | 2023-02-28 03:08 | PC.NURSE ---
diet provided at this time
--- NOTE | 2023-02-28 04:12 | PC.NURSE ---
Pt states he needs to leave. Ambulatory out of department with steady gait and all personal belongings. Dr. Lyles aware
--- NOTE | 2023-02-28 04:14 | ED_ITS ---
HPI - General Adult General Chief complaint: General Medical Stated complaint: hypoglycemia Time Seen by Provider: 02/28/23 03:01 Source: patient Mode of arrival: EMS History of Present Illness HPI narrative: 28-year-old male who is a type 1 diabetics is brought in by EMS for low blood sugar. Patient states that while I was at work he developed weakness and became diaphoretic. States he checked his sugar and it was 46 and 8 some Oreo cookies. Upon arrival EMS states that patient's glucose was 68 and they administered 24 g of oral glucose with good affect to 84. On arrival here to this emergency room his glucose is 106. 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 Related Data Home Medications Medication Instructions Recorded Confirmed insulin aspart U-100 100 unit/mL See Rx Instructions .Route .COMPLEX 12/19/22 01/23/23 (3 mL) subcutaneous pen (Novolog FlexPen U-100 Insulin aspart) insulin glargine 100 unit/mL (3 20 unit subcut DAILY 12/19/22 01/23/23 mL) subcutaneous pen (Lantus Solostar U-100 Insulin) pantoprazole 40 mg tablet,delayed 40 mg PO DAILY@0630 12/19/22 01/23/23 release (Protonix) acetaminophen 325 mg tablet 650 mg PO Q6H PRN Pain 01/23/23 01/23/23 gabapentin 300 mg capsule 300 mg PO BID 01/23/23 01/23/23 promethazine 25 mg tablet 25 mg PO TID PRN nausea/vomiting 01/23/23 01/23/23 Previous Rx's Medication Instructions Recorded dicyclomine 20 mg tablet 20 mg PO QID #60 tabs 01/23/23 mpxsbfwsr-zkihfxlbw-buxvqktg-scop 1 tab PO BID PRN Nausea, vomiting 01/23/23 16.2 mg-0.1037 mg-0.0194 mg tablet #14 tabs () Allergies Allergy/AdvReac Type Severity Reaction Status Date / Time diphenhydramine Allergy Anaphylaxis Verified 02/28/23 02:47 [From Benadryl] haloperidol [From Haldol] Allergy Difficulty Verified 02/28/23 02:47 Swallowing Review of Systems Review of Systems: Pertinent positives and negatives as stated in HPI [facility] Past Medical History Source: nursing notes reviewed Medical History Gates esophagus Diabetes mellitus type 1 Left against medical advice Social History Social History Household Members: Other Household Members Other:: cousin Housing: House Do you presently have visiting nurse or other home services: No Alcohol intake: never Patient Tobacco Use Status: Current everyday Tobacco user Tobacco use type: Cigarette Cigarette Packs Per Day: 0 Cigarettes Per Day: 0 Years Smoked: 10 e-Cigarette/Vaping Use: Never Used Second Hand Smoke Exposure: No Substance Use Type: Marijuana Advance Directives: No Advance Directives Information Provided: Yes service: No Current occupational status: employed Physical Exam ED Vital Signs: Vital Signs - 24 hr 02/28/23 02:48 Temperature 98.3 F Pulse Rate 93 Respiratory Rate 17 Blood Pressure 118/88 Pulse Oximetry 99 Oxygen Delivery Method Room Air BMI result Body Mass Index 21.0 VITAL SIGNS: Reviewed. GENERAL: Well developed, well nourished, in no acute distress. HEAD: Normocephalic/atraumatic EYES: PERRLA, EOMI EARS: Ext canals without abnormality LUNGS: Normal breath sounds. No adventitious sounds or accessory muscle use. SpO2<99> CARDIOVASCULAR: Regular rate and rhythm without noted murmurs ABDOMEN: Soft, non-tender, non-distended with bowel sounds. MUSCULOSKELETAL: No tenderness, deformities, or effusions noted on gross inspection. EXTREMITIES: No cyanosis, clubbing or edema. SKIN: Inspection of the skin reveals no rashes NEUROLOGIC: Alert and oriented x 4. Strength and sensation to light touch were grossly intact x 4. Medical Decision Making Medical Decision Making MDM Narrative: 28-year-old male with history and clinical presentation consistent with accidental hypoglycemia due to and no access to glucose source. On arrival here he is noted be stable, no clinical evidence to suggest DKA, 8 some sandwiches and that he wanted to leave. And patient has left without his discharge paperwork. Lab Data Labs: Lab Results 02/28/23 Range/Units 02:44 POC Glucose 106 (60-115) mg/dL Discharge Plan Discharge Clinical Impression: Hypoglycemia Patient Disposition: Elopement Instructions: Hypoglycemia in a Person with Diabetes (ED) Additional Instructions: Return to the ER for any worsening symptoms. Prescriptions: No Action insulin aspart U-100 [Novolog FlexPen U-100 Insulin] 100 unit/mL (3 mL) insulin pen See Rx Instructions .ROUTE .COMPLEX Rx Instructions: 1 unit of insulin for every 35 units over 135 insulin glargine [Lantus Solostar U-100 Insulin] 100 unit/mL (3 mL) insulin pen 20 unit subcut DAILY pantoprazole [Protonix] 40 mg tablet,delayed release (DR/EC) 40 mg PO DAILY@0630 promethazine 25 mg tablet 25 mg PO TID PRN (Reason: nausea/vomiting) gabapentin 300 mg capsule 300 mg PO BID acetaminophen 325 mg Tablet 650 mg PO Q6H PRN (Reason: Pain) dicyclomine 20 mg tablet 20 mg PO QID Qty: 60 0RF Rx Instructions: Take 30 minutes before eating, 30 minutes before bed kufkmphsz-ttldzq-hnrherqq-scop [] 16.2-0.1037 -0.0194 mg tablet 1 tab PO BID PRN (Reason: Nausea, vomiting) Qty: 14 0RF Discharge Date/Time: 02/28/23 04:17
== END 2023-02-28 04:17 | disposition left against medical advice (07) ==
LOC: HO.ED 03:42
PROVIDERS: Emergency Provider Student in an Organized Health Care Education/Training Program
DX: E10.649 Type 1 diabetes mellitus with hypoglycemia without coma (principal); F17.210 Nicotine dependence, cigarettes, uncomplicated; F12.90 Cannabis use, unspecified, uncomplicated; Z79.4 Long term (current) use of insulin
CPT/HCPCS: 82947; 99281; 99282

== ENCOUNTER 2023-03-10 19:12 | Emergency (ER) | payer MEDICAID, SELFPAY ==
[2023-03-10 19:22] VITALS: BP 109/81; BP 150/82; PULSE 106; PULSE 76; RESP 16; TEMP 37; O2SAT 98; O2SAT 99; BMI 21.0
[2023-03-10 19:55] LABS: MANUAL DIFF FLAG NO
[2023-03-10] MEDS: Ondansetron ODT 4 MG TAB.RAPDIS TRANSLINGU (20:15)
[2023-03-10 20:16] LABS: Alanine Aminotransferase 18 U/L (0-40); Albumin Level 4.8 g/dL (3.5-5.0); Alkaline Phosphatase 97 U/L (39-117); Anion Gap 18 (12-20); Aspartate Amino Transferase 22 U/L (5-37); Bilirubin Total 0.5 mg/dL (0.0-1.0); Blood Urea Nitrogen 18 mg/dL (9-16); Calcium 10.7 mg/dL (8.4-10.2); Carbon Dioxide 24 mmol/L (22-29); Chloride 100 mmol/L (96-108); Creatinine Clr Calc Pharmacy 108.1; Estimated Glomerular Filt Rate > 60; Glucose Random 298 mg/dL (60-115); Lactic Acid 3.1 mmol/L (0.5-2.0); Lipase 5 U/L (8-78); Potassium 4.6 mmol/L (3.3-5.1); Sodium 137 mmol/L (135-145); Total Protein 8.8 g/dL (6.5-8.0)
[2023-03-10 20:21] LABS: Basophils Absolute Auto 0.1 X10*3/uL (0.0-0.2); Basophils Percent Auto 0.6 % (0-2); Eosinophils Absolute Auto 0.1 X10*3/uL (0.0-0.4); Eosinophils Percent Auto 0.9 % (0-4); Hematocrit 47.2 % (42.0-52.0); Hemoglobin 15.2 g/dl (14.0-18.0); Imm Gran Abs Auto 0.03 X10*3/uL (0.00-0.03); Imm Gran Pct Auto 0.3 % (0.0-0.4); Lymphocytes Absolute Auto 2.4 X10*3/uL (1.2-4.9); Lymphocytes Percent Auto 24.4 % (20-40); Mean Corpuscular HGB Conc 32.2 g/dl (31.0-36.0); Mean Corpuscular Hemoglobin 25.1 pg (27.0-33.0); Mean Corpuscular Volume 77.9 fL (80.0-98.0); Mean Platelet Volume 10.3 fL (9.4-12.4); Monocytes Absolute Auto 0.4 X10*3/uL (0.1-1.2); Monocytes Percent Auto 3.9 % (2-11); Neutrophils Absolute Auto 6.9 x10*3/uL (2.0-8.3); Neutrophils Percent Auto 69.9 % (45-73); Platelet Count 314 X10*3/uL (160-400); Red Blood Count 6.06 X10*6/uL (4.60-5.80); Red Cell Distribution Width 14.3 % (11.0-16.0); White Blood Count 9.9 X10*3/uL (4.8-10.8)
[2023-03-10 20:25] LABS: Glucose, Whole Blood 278 mg/dL (60-115)
[2023-03-10] MEDS: Prochlorperazine Edisylate 10 MG/2 ML VIAL IVPUSH (20:54)
[2023-03-10] MEDS: Morphine Sulfate 4 MG/ML CARTRIDGE IVPUSH (20:54)
[2023-03-10] MEDS: ondansetron HCL 4 MG/2 ML VIAL IVPUSH (20:54)
[2023-03-10] MEDS: 0.9 % Sodium Chloride 1,000 ML 999 ML IV (20:55)
--- NOTE | 2023-03-10 21:00 | PC.NURSE ---
Pt assessed, crying in pain, actively vomiting. medicated with morphine, compazine and zofran ivp,
--- NOTE | 2023-03-10 21:05 | ED_ITS ---
HPI - General Adult General Chief complaint: General Medical Stated complaint: PAIN IN LOWER BACK Time Seen by Provider: 03/10/23 20:16 Source: patient, RN notes reviewed and old records reviewed Mode of arrival: EMS Limitations: no limitations History of Present Illness HPI narrative: 28-year-old male with past medical history significant for type 1 diabetes presents for evaluation of abdominal pain and back pain. Patient has frequent ED visits related to chronic back pain and abdominal pain with nausea and vomiting. He reports his symptoms started yesterday, are worse in the left side. His pain is 10/10. He reports he cannot tolerate any p.o. intake. Reports chills but no fevers Denies any history abdominal surgeries No other complaints or concerns at this time Related Data Home Medications Medication Instructions Recorded Confirmed insulin aspart U-100 100 unit/mL See Rx Instructions .Route .COMPLEX 12/19/22 01/23/23 (3 mL) subcutaneous pen (Novolog FlexPen U-100 Insulin aspart) insulin glargine 100 unit/mL (3 20 unit subcut DAILY 12/19/22 01/23/23 mL) subcutaneous pen (Lantus Solostar U-100 Insulin) pantoprazole 40 mg tablet,delayed 40 mg PO DAILY@0630 12/19/22 01/23/23 release (Protonix) acetaminophen 325 mg tablet 650 mg PO Q6H PRN Pain 01/23/23 01/23/23 gabapentin 300 mg capsule 300 mg PO BID 01/23/23 01/23/23 promethazine 25 mg tablet 25 mg PO TID PRN nausea/vomiting 01/23/23 01/23/23 Previous Rx's Medication Instructions Recorded dicyclomine 20 mg tablet 20 mg PO QID #60 tabs 01/23/23 yfddnphip-shhfowpae-zgfyqqgf-scop 1 tab PO BID PRN Nausea, vomiting 01/23/23 16.2 mg-0.1037 mg-0.0194 mg tablet #14 tabs () promethazine 25 mg tablet 25 mg PO TID PRN nausea and 03/11/23 vomiting #20 tabs Allergies Allergy/AdvReac Type Severity Reaction Status Date / Time diphenhydramine Allergy Anaphylaxis Verified 02/28/23 02:47 [From Benadryl] haloperidol [From Haldol] Allergy Difficulty Verified 07/11/23 02:47 Swallowing Review of Systems Constitutional: Constitutional: Reports chills, Reports fatigue, Denies fever(s), Denies headache(s) and Reports weakness ENT: Denies headache(s) Cardiovascular: Cardiovascular: Denies chest pain and Denies dyspnea Respiratory: Respiratory: Denies cough and Denies dyspnea Gastrointestinal: Gastrointestinal: Reports abdominal pain, Denies constip ation, Reports nausea and Reports vomiting Genitourinary: Genitourinary: Denies difficulty urinating and Denies dysuria Musculoskeletal: Musculoskeletal: Reports back pain Neurologic: Denies headache(s) and Reports weakness Endocrine: Endocrine: Reports fatigue PMFSH Past Medical History Medical History Gates esophagus Diabetes mellitus type 1 Left against medical advice Social History Social History Household Members: Other Household Members Other:: cousin Housing: House Do you presently have visiting nurse or other home services: No Alcohol intake: never Patient Tobacco Use Status: Current everyday Tobacco user Tobacco use type: Cigarette Cigarette Packs Per Day: 0 Cigarettes Per Day: 0 Years Smoked: 10 Smoked in Last 30 Days: No e-Cigarette/Vaping Use: Never Used Second Hand Smoke Exposure: No Use of substances other than those prescribed or required for medical reasons: No Substance Use Type: Marijuana Advance Directives: No Advance Directives Information Provided: Yes service: No Current occupational status: employed Physical Exam ED Vital Signs: Vital Signs - 24 hr 03/10/23 19:22 03/10/23 21:48 03/10/23 23:19 Temperature 98.6 F 98.1 F 98.9 F Pulse Rate 106 H 77 68 Respiratory Rate 16 18 13 Blood Pressure 109/81 131/77 97/51 L Pulse Oximetry 98 100 98 Oxygen Delivery Method Room Air Room Air Room Air BMI result Body Mass Index 21.0 Const General: cooperative, alert and awake Nutritional Appearance: well nourished and thin Orientation/consciousness: patient oriented x3 HENMT Head: Yes normocephalic and Yes atraumatic Eyes Eyelids: Yes eyelids normal Conjunctivae: conjunctivae normal Sclerae: sclerae normal Corneas: corneas normal Pupils: Equal, round and reactive pupils present EOM: EOMs intact bilaterally Neck Neck: Yes full ROM Resp Effort & Inspection: normal respiratory effort, able to speak in complete sentences and not labored Cardio Rate: regular rate Rhythm: regular rhythm GI Inspection: No distended Palpation (GI): Soft to palpation, not firm, Tenderness to palpation present (GI) (Diffusely tender without rebound or guarding.) and not rigid Auscultation: normoactive bowel sounds Skin General skin exam: elasticity normal Neuro General: patient oriented x3 Cranial nerves: Yes Equal, round and reactive pupils present and Yes Bilaterally intact EOM present Cognition (Neuro): normal cognition Extrem Other: Moving all extremities well without any obvious deformities Course Reevaluation(s) Reevaluation #1: Patient now sleeping comfortably. His lactate improved to 1.4 after IV fluids. I did order a 2 L as his blood pressure was slightly low at 97/51. Given the patient is no longer vomiting, as long as his blood pressure improves he is stable for discharge Time: 00:28 Medications Administered Generic Name Dose Route Start Last Admin Trade Name Freq PRN Reason Stop Dose Admin Sodium Chloride 1,000 mls @ 999 mls/hr 03/10/23 23:45 03/11/23 00:24 Ns IV 03/11/23 00:45 999 mls/hr .Q1H1M JELENA Administration Discontinued Medications Generic Name Dose Route Start Last Admin Trade Name Freq PRN Reason Stop Dose Admin Sodium Chloride 1,000 mls @ 999 mls/hr 03/10/23 20:30 03/10/23 22:12 Ns IV 03/10/23 21:30 Infused .Q1H1M JELENA Infusion Lorazepam 2 mg 03/10/23 22:00 03/10/23 22:10 Lorazepam 2 Mg/Ml Vial IVPUSH 03/10/23 22:01 2 mg ONCE ONE Administration Metoclopramide HCl 10 mg 03/10/23 22:01 03/10/23 22:10 Metoclopramide Hcl 10 Mg/2 Ml Vial IVPUSH 03/10/23 22:02 10 mg ONCE ONE Administration Morphine Sulfate 4 mg 03/10/23 20:22 03/10/23 20:54 Morphine Sulfate 4 Mg/Ml Cartridge IVPUSH 03/10/23 20:23 4 mg ONCE ONE Administration Protocol Ondansetron HCl 4 mg 03/10/23 20:01 03/10/23 20:15 Ondansetron Odt 4 Mg Tab.Rapdis TRANSLINGU 03/10/23 20:02 4 mg ONCE ONE Administration Ondansetron HCl 4 mg 03/10/23 20:22 03/10/23 20:54 Ondansetron Hcl 4 Mg/2 Ml Vial IVPUSH 03/10/23 20:23 4 mg ONCE ONE Administration Prochlorperazine Edisylate 10 mg 03/10/23 20:48 03/10/23 20:54 Prochlorperazine Edisylate 10 Mg/2 Ml Vial IVPUSH 03/10/23 20:49 10 mg ONCE ONE Administration Medical Decision Making Medical Decision Making [facility] Narrative: 28-year-old male presents for evaluation of back pain and abdominal pain. He has frequent ED visits for same. He appears quite uncomfortable. Will treat. Morphine, Zofran. Will check labs to rule out DKA, metabolic abnormality. Will get a UA and a drug screen. Will defer CT imaging at this time pending labs and re-evaluation. The patient has had numerous CT scans of his abdomen pelvis. Low suspicion for surgical pathology at this time. Differential Diagnosis Differential Diagnoses: The differential diagnosis associated with the presentation includes Cannabis hyperemesis syndrome Gastroenteritis DKA Hyperglycemia Dehydration Cyclic vomiting Obstructive uropathy Admission/Observation Consideration of admission/observation: Escalation of care including admission/observation considered Multiple rounds of antiemetics Lab Data [facility] Lab Attestation statement: I reviewed the patient's lab results. No leukocytosis neck, no significant anemia. Sodium normal at 137, potassium normal at 4.6, renal function normal with a crea tinine of 1.02. CO2 normal at 24, glucose elevated to 298. no evidence of DKA 03/10/23 19:49 03/10/23 19:49 Labs: Lab Results 03/10/23 03/10/23 03/10/23 Range/Units 19:49 19:49 19:49 WBC 9.9 (4.8-10.8) X10*3/uL RBC 6.06 H D (4.60-5.80) X10*6/uL Hgb 15.2 D (14.0-18.0) g/dl Hct 47.2 D (42.0-52.0) % MCV 77.9 L (80.0-98.0) fL MCH 25.1 L (27.0-33.0) pg MCHC 32.2 (31.0-36.0) g/dl RDW 14.3 (11.0-16.0) % Plt Count 314 D (160-400) X10*3/uL MPV 10.3 (9.4-12.4) fL Immature Gran % (Auto) 0.3 (0.0-0.4) % Neut % (Auto) 69.9 (45-73) % Lymph % (Auto) 24.4 (20-40) % [place] % (Auto) 3.9 (2-11) % Eos % (Auto) 0.9 (0-4) % Baso % (Auto) 0.6 (0-2) % Lymph # (Auto) 2.4 (1.2-4.9) X10*3/uL [place] # (Auto) 0.4 (0.1-1.2) X10*3/uL Eos # (Auto) 0.1 (0.0-0.4) X10*3/uL Baso # (Auto) 0.1 (0.0-0.2) X10*3/uL Abs Immat Gran (auto) 0.03 (0.00-0.03) X10*3/uL Absolute Neuts (auto) 6.9 (2.0-8.3) x10*3/uL Absolute Nucleated RBC 0.000 (0.0-0.012) X10*3/uL Nucleated RBC % (auto) 0.0 (0.0-0.2) /100WBC Sodium 137 (135-145) mmol/L Potassium 4.6 (3.3-5.1) mmol/L Chloride 100 (96-108) mmol/L Carbon Dioxide 24 (22-29) mmol/L Anion Gap 18 (12-20) BUN 18 H (9-16) mg/dL Creatinine 1.02 (0.5-1.4) mg/dL Estim Creat Clear Calc 108.1 Estimated GFR > 60 POC Glucose (60-115) mg/dL Random Glucose 298 H (60-115) mg/dL Lactic Acid 3.1 H* (0.5-2.0) mmol/L Lactic Acid F/U @ 2Hr (0.5-2.0) mmol/L Calcium 10.7 H D (8.4-10.2) mg/dL Total Bilirubin 0.5 (0.0-1.0) mg/dL AST 22 (5-37) U/L ALT 18 (0-40) U/L Alkaline Phosphatase 97 (39-117) U/L Total Protein 8.8 H (6.5-8.0) g/dL Albumin 4.8 (3.5-5.0) g/dL Lipase 5 L (8-78) U/L 03/10/23 03/10/23 Range/Units 20:16 22:28 WBC (4.8-10.8) X10*3/uL RBC (4.60-5.80) X10*6/uL Hgb (14.0-18.0) g/dl Hct (42.0-52.0) % MCV (80.0-98.0) fL MCH (27.0-33.0) pg MCHC (31.0-36.0) g/dl RDW (11.0-16.0) % Plt Count (160-400) X10*3/uL MPV (9.4-12.4) fL Immature Gran % (Auto) (0.0-0.4) % Neut % (Auto) (45-73) % Lymph % (Auto) (20-40) % [place] % (Auto) (2-11) % Eos % (Auto) (0-4) % Baso % (Auto) (0-2) % Lymph # (Auto) (1.2-4.9) X10*3/uL [place] # (Auto) (0.1-1.2) X10*3/uL Eos # (Auto) (0.0-0.4) X10*3/uL Baso # (Auto) (0.0-0.2) X10*3/uL Abs Immat Gran (auto) (0.00-0.03) X10*3/uL Absolute Neuts (auto) (2.0-8.3) x10*3/uL Absolute Nucleated RBC (0.0-0.012) X10*3/uL Nucleated RBC % (auto) (0.0-0.2) /100WBC Sodium (135-145) mmol/L Potassium (3.3-5.1) mmol/L Chloride (96-108) mmol/L Carbon Dioxide (22-29) mmol/L Anion Gap (12-20) BUN (9-16) mg/dL Creatinine (0.5-1.4) mg/dL Estim Creat Clear Calc Estimated GFR POC Glucose 278 H (60-115) mg/dL Random Glucose (60-115) mg/dL Lactic Acid (0.5-2.0) mmol/L Lactic Acid F/U @ 2Hr 1.4 (0.5-2.0) mmol/L Calcium (8.4-10.2) mg/dL Total Bilirubin (0.0-1.0) mg/dL AST (5-37) U/L ALT (0-40) U/L Alkaline Phosphatase (39-117) U/L Total Protein (6.5-8.0) g/dL Albumin (3.5-5.0) g/dL Lipase (8-78) U/L Discharge Plan Discharge Clinical Impression: Acute hyperglycemia, Vomiting Patient Disposition: Home, Self-Care Instructions: Acute Nausea and Vomiting (ED) Additional Instructions: Thank all of your home medications as prescribed. You may use promethazine as needed for any further nausea or vomiting Follow-up with your primary doctor. Your blood sugar was elevated today and closely with your primary doctor You should try to stop smoking marijuana, as this may be the cause of your vomiting known as cannabis hyperemesis syndrome Prescriptions: New promethazine 25 mg tablet 25 mg PO TID PRN (Reason: nausea and vomiting) Qty: 20 0RF No Action insulin aspart U-100 [Novolog FlexPen U-100 Insulin] 100 unit/mL (3 mL) insulin pen See Rx Instructions .ROUTE .COMPLEX Rx Instructions: 1 unit of insulin for every 35 units over 135 insulin glargine [Lantus Solostar U-100 Insulin] 100 unit/mL (3 mL) insulin pen 20 unit subcut DAILY pantoprazole [Protonix] 40 mg tablet,delayed release (DR/EC) 40 mg PO DAILY@0630 promethazine 25 mg tablet 25 mg PO TID PRN (Reason: nausea/vomiting) gabapentin 300 mg capsule 300 mg PO BID acetaminophen 325 mg Tablet 650 mg PO Q6H PRN (Reason: Pain) dicyclomine 20 mg tablet 20 mg PO QID Qty: 60 0RF Rx Instructions: Take 30 minutes before eating, 30 minutes before bed jauhqktzz-mpewwn-vvmotvdm-scop [] 16.2-0.1037 -0.0194 mg tablet 1 tab PO BID PRN (Reason: Nausea, vomiting) Qty: 14 0RF
--- NOTE | 2023-03-10 21:31 | PC.NURSE ---
pt reassessed for pain, nausea and vomiting subsided, pain decreased to tolerable pain
[2023-03-10 21:48] VITALS: BP 131/77; PULSE 77; RESP 18; TEMP 36.7; O2SAT 100
[2023-03-10 21:53] LABS: Reflex Lactate? Lactic Acid Added
[2023-03-10] MEDS: LORazepam 2 MG/ML VIAL IVPUSH (22:10)
[2023-03-10] MEDS: Metoclopramide HCl 10 MG/2 ML VIAL IVPUSH (22:10)
[2023-03-10 22:44] LABS: ~Lactic Acid-LAB USE ONLY 1.4 mmol/L (0.5-2.0)
[2023-03-10 23:19] VITALS: BP 97/51; PULSE 68; RESP 13; TEMP 37.2; O2SAT 98
[2023-03-11] MEDS: 0.9 % Sodium Chloride 1,000 ML 999 ML IV (00:24)
== END 2023-03-11 06:48 | disposition home or self-care (01) ==
PROVIDERS: Emergency Provider Emergency Medicine
DX: E10.65 Type 1 diabetes mellitus with hyperglycemia (principal); R11.10 Vomiting, unspecified; F17.210 Nicotine dependence, cigarettes, uncomplicated; F12.90 Cannabis use, unspecified, uncomplicated; Z79.4 Long term (current) use of insulin; Z79.899 Other long term (current) drug therapy
CPT/HCPCS: 36415; 80053; 82947; 83605; 83690; 85025; 96361; 96374; 96375; 99284; J2060; J2270; J2405; J2765

== ENCOUNTER 2023-03-13 18:47 | Emergency (ER) | payer MEDICAID, SELFPAY ==
--- NOTE | ~2023-03-13 | US_ITS ---
EXAMINATION: US SCROTUM CLINICAL INFORMATION: Pain. COMPARISON: None available. TECHNIQUE: A sonogram of the scrotum was performed assessing acosta-scale appearance and color Doppler flow. Spectral Doppler analysis of the arterial and venous flow were performed in the testes bilaterally. FINDINGS: RIGHT: Right testicle measures 4.7 x 2.0 x 2.9 cm, volume 14 mL. No focal testicular parenchymal lesions are visualized. Spectral Doppler analysis of the arterial and venous flow is normal in the right testis. Right epididymal head is normal in size. No right hydrocele or varicocele is seen. Right epididymal Doppler flow is normal. LEFT: Left testicle measures 5.0 x 1.9 x 3.1 cm, volume 15 mL. No focal testicular parenchymal lesions are visualized. Spectral Doppler analysis of the arterial and venous flow is normal in the left testis. Left epididymal head is normal in size. No left hydrocele or varicocele is seen. Left epididymal Doppler flow is normal. US/US scrotum doppler IMPRESSION: Normal scrotal ultrasound.
--- NOTE | ~2023-03-13 | US_ITS ---
EXAMINATION: US SCROTUM CLINICAL INFORMATION: Pain. COMPARISON: None available. TECHNIQUE: A sonogram of the scrotum was performed assessing acosta-scale appearance and color Doppler flow. Spectral Doppler analysis of the arterial and venous flow were performed in the testes bilaterally. FINDINGS: RIGHT: Right testicle measures 4.7 x 2.0 x 2.9 cm, volume 14 mL. No focal testicular parenchymal lesions are visualized. Spectral Doppler analysis of the arterial and venous flow is normal in the right testis. Right epididymal head is normal in size. No right hydrocele or varicocele is seen. Right epididymal Doppler flow is normal. LEFT: Left testicle measures 5.0 x 1.9 x 3.1 cm, volume 15 mL. No focal testicular parenchymal lesions are visualized. Spectral Doppler analysis of the arterial and venous flow is normal in the left testis. Left epididymal head is normal in size. No left hydrocele or varicocele is seen. Left epididymal Doppler flow is normal. US/US scrotum IMPRESSION: Normal scrotal ultrasound.
[2023-03-13 19:01] VITALS: BP 122/78; BP 135/93; PULSE 80; PULSE 88; RESP 20; TEMP 37.1; O2SAT 98; BMI 20.4
--- NOTE | 2023-03-13 19:09 | ED_ITS ---
HPI - Male Genitourinary General Chief complaint: Urogenital-Male Stated complaint: testicle pain, per ems Time Seen by Provider: 03/13/23 18:50 Source: patient and EMS Mode of arrival: EMS History of Present Illness HPI Narrative: 28-year-old male known type 1 diabetic presents via EMS for testicular pain that is been ongoing since 11:00 o'clock this morning without associated fevers, chills, vomiting but does report some nausea and denies any traumatic injury and reports that this has happened previously but typically will resolve in couple of hours. Patient describes burning sensation to bilateral groin the pain under the right testicle/scrotum. Related Data Home Medications Medication Instructions Recorded Confirmed insulin aspart U-100 100 unit/mL See Rx Instructions .Route .COMPLEX 12/19/22 01/23/23 (3 mL) subcutaneous pen (Novolog FlexPen U-100 Insulin aspart) insulin glargine 100 unit/mL (3 20 unit subcut DAILY 12/19/22 01/23/23 mL) subcutaneous pen (Lantus Solostar U-100 Insulin) pantoprazole 40 mg tablet,delayed 40 mg PO DAILY@0630 12/19/22 01/23/23 release (Protonix) acetaminophen 325 mg tablet 650 mg PO Q6H PRN Pain 01/23/23 01/23/23 gabapentin 300 mg capsule 300 mg PO BID 01/23/23 01/23/23 promethazine 25 mg tablet 25 mg PO TID PRN nausea/vomiting 01/23/23 01/23/23 Previous Rx's Medication Instructions Recorded dicyclomine 20 mg tablet 20 mg PO QID #60 tabs 01/23/23 gxawosrtg-seltruhre-djktgnaa-scop 1 tab PO BID PRN Nausea, vomiting 01/23/23 16.2 mg-0.1037 mg-0.0194 mg tablet #14 tabs () promethazine 25 mg tablet 25 mg PO TID PRN nausea and 03/11/23 vomiting #20 tabs Allergies Allergy/AdvReac Type Severity Reaction Status Date / Time diphenhydramine Allergy Anaphylaxis Verified 02/28/23 02:47 [From Benadryl] haloperidol [From Haldol] Allergy Difficulty Verified 02/28/23 02:47 Swallowing Review of Systems Review of Systems: Pertinent positives and negatives as stated in HPI [facility] Past Medical History Source: nursing notes reviewed Medical History Gates esophagus Diabetes mellitus type 1 Left against medical advice Social History Social History Household Members: Other Household Members Other:: cousin Housing: House Do you presently have visiting nurse or other home services: No Alcohol intake: never Patient Tobacco Use Status: Current everyday Tobacco user Tobacco use type: Cigarette Cigarette Packs Per Day: 0 Cigarettes Per Day: 0 Years Smoked: 10 e-Cigarette/Vaping Use: Never Used Second Hand Smoke Exposure: No Substance Use Type: Marijuana Advance Directives: No Advance Directives Information Provided: No service: No Current occupational status: employed Physical Exam Vital Signs: Vital Signs: Last Vital Signs Temp 98.7 F 03/13/23 19:01 Pulse 80 03/13/23 19:01 Resp 20 03/13/23 19:01 BP 135/93 H 03/13/23 19:01 Pulse Ox 98 03/13/23 19:01 O2 Del Method Room Air 03/13/23 19:01 BMI result Body Mass Index 20.4 VITAL SIGNS: Reviewed. GENERAL: Well developed, well nourished, in no acute distress. HEAD: Normocephalic/atraumatic EYES: PERRLA, EOMI EARS: Ext canals without abnormality NOSE: Nares patent bilateral OROPHARYNX: no oral lesions noted, posterior pharynx clear, dry mucosa NECK: Supple, no adenopathy LUNGS: Normal breath sounds. No adventitious sounds or accessory muscle use. SpO2<98> CARDIOVASCULAR: Regular rate and rhythm without noted murmurs ABDOMEN: Soft, non-tender, non-distended with bowel sounds. : Uncircumcised male, bilateral testes appear normal size, no tenderness to palpation, no scrotal erythema/induration, no tenderness/erythema/induration to the perineal area, no left or right inguinal hernias appreciated no scrotal varicosities noted MUSCULOSKELETAL: No tenderness, deformities, or effusions noted on gross inspection. EXTREMITIES: No cyanosis, clubbing or edema. SKIN: Inspection of the skin reveals no rashes. NEUROLOGIC: Alert and oriented x 4. Strength and sensation to light touch were grossly intact x 4. Medications Administered Discontinued Medications Generic Name Dose Route Start Last Admin Trade Name [place] PRN Reason Stop Dose Admin Sodium Chloride 2,000 mls @ 999 mls/hr 03/13/23 19:00 03/13/23 19:26 Ns IV 03/13/23 21:00 999 mls/hr .Q2H1M JELENA Administration Ketorolac Tromethamine 15 mg 03/13/23 18:58 03/13/23 19:23 Ketorolac Tromethamine 30 Mg/Ml Vial IVPUSH 03/13/23 18:59 15 mg ONCE ONE Administration Ondansetron HCl 4 mg 03/13/23 19:30 03/13/23 20:05 Ondansetron Hcl 4 Mg/2 Ml Vial IVPUSH 03/13/23 19:31 4 mg ONCE ONE Administration Medical Decision Making Medical Decision Making [facility] Narrative: 28-year-old male with history and clinical presentation, DDX: Epididymitis, torsed testicle, UTI, STI, hyperglycemia, dehydration. - scrotal doppler, IV, 2L IVF, POC glucose I reviewed all investigations and the hematologic indices are negative for evidence to suggest infection as there is no leukocytosis, no anemia and no thrombocytopenia. Chemistry indices demonstrate a hyperglycemia for which patient was treated with 2 L IV fluids and re-evaluated to be a little over 200 and tolerating oral intake. Otherwise there is no evidence of electrolyte abnormalities, no DKA, no JAZMIN. Ultrasound negative for torsion or epididymitis, unclear what is patient's burning sensation was that was involving his groin but on clinical exam there is no suggestion of yeast infection, cellulitis and certainly no involvement of the scrotum. He is otherwise discharged home in stable condition. Differential Diagnosis Differential Diagnoses: The differential diagnosis associated with the presentation includes Please see the discussion above Admission/Observation Consideration of admission/observation: Escalation of care including admission/observation considered Please see the discussion above Lab Data [facility] Lab Attestation statement: I reviewed the patient's lab results. Please see the discussion above 03/13/23 19:07 03/13/23 19:07 Labs: Lab Results 03/13/23 03/13/23 03/13/23 Range/Units 19:07 19:07 19:09 WBC 7.0 (4.8-10.8) X10*3/uL RBC 5.53 (4.60-5.80) X10*6/uL Hgb 14.0 (14.0-18.0) g/dl Hct 42.1 (42.0-52.0) % MCV 76.1 L (80.0-98.0) fL MCH 25.3 L (27.0-33.0) pg MCHC 33.3 (31.0-36.0) g/dl RDW 13.9 (11.0-16.0) % Plt Count 267 (160-400) X10*3/uL MPV 10.5 (9.4-12.4) fL Absolute Nucleated RBC 0.000 (0.0-0.012) X10*3/uL Nucleated RBC % (auto) 0.0 (0.0-0.2) /100WBC Sodium 135 (135-145) mmol/L Potassium 4.6 (3.3-5.1) mmol/L Chloride 100 (96-108) mmol/L Carbon Dioxide 25 (22-29) mmol/L Anion Gap 15 (12-20) BUN 14 (9-16) mg/dL Creatinine 0.97 (0.5-1.4) mg/dL Estim Creat Clear Calc 110.5 Estimated GFR > 60 POC Glucose 384 H* (60-115) mg/dL Random Glucose 403 H* (60-115) mg/dL Calcium 9.8 D (8.4-10.2) mg/dL Total Bilirubin 0.5 (0.0-1.0) mg/dL AST 27 (5-37) U/L ALT 18 (0-40) U/L Alkaline Phosphatase 75 (39-117) U/L Total Protein 7.6 (6.5-8.0) g/dL Albumin 4.1 (3.5-5.0) g/dL Urine Color Urine Appearance Urine pH (5.0-9.0) Ur Specific [place] (1.005-1.025) Urine Protein (Neg-Trace) mg/dL Urine Glucose (UA) (Negative) mg/dL Urine Ketones (Negative) mg/dL Urine Blood (Negative) Urine Nitrite (Negative) Ur Leukocyte Esterase (Negative) Urine RBC (0-2) /HPF Urine WBC (0-5) /HPF Ur Squamous Epith Cells (0-2) /HPF Urine Bacteria (None Seen) Hyaline Casts (0-2) /LPF 07/24/23 Range/Units 20:18 WBC (4.8-10.8) X10*3/uL RBC (4.60-5.80) X10*6/uL Hgb (14.0-18.0) g/dl Hct (42.0-52.0) % MCV (80.0-98.0) fL MCH (27.0-33.0) pg MCHC (31.0-36.0) g/dl RDW (11.0-16.0) % Plt Count (160-400) X10*3/uL MPV (9.4-12.4) fL Absolute Nucleated RBC (0.0-0.012) X10*3/uL Nucleated RBC % (auto) (0.0-0.2) /100WBC Sodium (135-145) mmol/L Potassium (3.3-5.1) mmol/L Chloride (96-108) mmol/L Carbon Dioxide (22-29) mmol/L Anion Gap (12-20) BUN (9-16) mg/dL Creatinine (0.5-1.4) mg/dL Estim Creat Clear Calc Estimated GFR POC Glucose (60-115) mg/dL Random Glucose (60-115) mg/dL Calcium (8.4-10.2) mg/dL Total Bilirubin (0.0-1.0) mg/dL AST (5-37) U/L ALT (0-40) U/L Alkaline Phosphatase (39-117) U/L Total Protein (6.5-8.0) g/dL Albumin (3.5-5.0) g/dL Urine Color Yellow Urine Appearance Clear Urine pH 7.5 (5.0-9.0) Ur Specific [place] >= 1.030 H (1.005-1.025) Urine Protein Negative (Neg-Trace) mg/dL Urine Glucose (UA) >=1000 H (Negative) mg/dL Urine Ketones 15 (Negative) mg/dL Urine Blood Negative (Negative) Urine Nitrite Negative (Negative) Ur Leukocyte Esterase Negative (Negative) Urine RBC 0-2 (0-2) /HPF Urine WBC 0-5 (0-5) /HPF Ur Squamous Epith Cells 0-2 (0-2) /HPF Urine Bacteria None Seen (None Seen) Hyaline Casts 0-2 (0-2) /LPF Radiology Impression Radiologist Impression: No torsion, otherwise my interpretation is in agreement with radiology's impression. External Record Review External record reviewed: Outpatient record and Prior outpatient labs Chronic Conditions Patient?s care impacted by: Diabetes Critical Care Time Critical Care Time Critical Care Time: Yes Total Critical Care Time: 30 Attestation: I personally attest to this time spent taking care of the patient. Discharge Plan Discharge Clinical Impression: Hyperglycemia, Pain in testicle Patient Disposition: Home, Self-Care Instructions: Scrotal Pain (ED), Diabetic Hyperglycemia (ED) Additional Instructions: 1. Resume all home medications as prescribed. 2. Follow-up with your primary care provider next 1-2 days. Return to the ER for any worsening symptoms. Prescriptions: No Action insulin aspart U-100 [Novolog FlexPen U-100 Insulin] 100 unit/mL (3 mL) insulin pen See Rx Instructions .ROUTE .COMPLEX Rx Instructions: 1 unit of insulin for every 35 units over 135 insulin glargine [Lantus Solostar U-100 Insulin] 100 unit/mL (3 mL) insulin pen 20 unit subcut DAILY pantoprazole [Protonix] 40 mg tablet,delayed release (DR/EC) 40 mg PO DAILY@0630 promethazine 25 mg tablet 25 mg PO TID PRN (Reason: nausea/vomiting) gabapentin 300 mg capsule 300 mg PO BID acetaminophen 325 mg Tablet 650 mg PO Q6H PRN (Reason: Pain) dicyclomine 20 mg tablet 20 mg PO QID Qty: 60 0RF Rx Instructions: Take 30 minutes before eating, 30 minutes before bed ddpytqqdh-qezycq-ppbbhihu-scop [] 16.2-0.1037 -0.0194 mg tablet 1 tab PO BID PRN (Reason: Nausea, vomiting) Qty: 14 0RF promethazine 25 mg tablet 25 mg PO TID PRN (Reason: nausea and vomiting) Qty: 20 0RF
[2023-03-13 19:12] LABS: Glucose, Whole Blood 384 mg/dL (60-115)
[2023-03-13] MEDS: Ketorolac Tromethamine 30 MG/ML VIAL 15 MG IVPUSH (19:23)
[2023-03-13] MEDS: 0.9 % Sodium Chloride 2,000 ML 999 ML IV (19:26)
[2023-03-13 19:49] LABS: Hematocrit 42.1 % (42.0-52.0); Mean Corpuscular HGB Conc 33.3 g/dl (31.0-36.0); Mean Corpuscular Hemoglobin 25.3 pg (27.0-33.0); Mean Corpuscular Volume 76.1 fL (80.0-98.0); Mean Platelet Volume 10.5 fL (9.4-12.4); Platelet Count 267 X10*3/uL (160-400); Red Blood Count 5.53 X10*6/uL (4.60-5.80); Red Cell Distribution Width 13.9 % (11.0-16.0)
[2023-03-13 19:57] LABS: Alanine Aminotransferase 18 U/L (0-40); Albumin Level 4.1 g/dL (3.5-5.0); Alkaline Phosphatase 75 U/L (39-117); Anion Gap 15 (12-20); Aspartate Amino Transferase 27 U/L (5-37); Bilirubin Total 0.5 mg/dL (0.0-1.0); Blood Urea Nitrogen 14 mg/dL (9-16); Calcium 9.8 mg/dL (8.4-10.2); Carbon Dioxide 25 mmol/L (22-29); Chloride 100 mmol/L (96-108); Creatinine Clr Calc Pharmacy 110.5; Estimated Glomerular Filt Rate > 60; Glucose Random 403 mg/dL (60-115); Potassium 4.6 mmol/L (3.3-5.1); Sodium 135 mmol/L (135-145); Total Protein 7.6 g/dL (6.5-8.0)
[2023-03-13] MEDS: ondansetron HCL 4 MG/2 ML VIAL IVPUSH (20:05)
[2023-03-13 20:30] LABS: Appearance Urine Clear; Color Urine Yellow; Glucose Urine UA >=1000 mg/dL (Negative); Leukocyte Esterase Urine Negative (Negative); Nitrite Urine Negative (Negative); PH 7.5 (5.0-9.0); Specific Gravity - Urine >= 1.030 (1.005-1.025); UMIC TRIGGER UACC YES; Urine Blood Negative (Negative); Urine Ketones 15 mg/dL (Negative); Urine Protein Negative (Neg-Trace)
[2023-03-13 20:35] LABS: Bacteria Urine None Seen (None Seen); Hyaline Casts Urine 0-2 /LPF (0-2); RBC Urine 0-2 /HPF (0-2); Squamous Epithelial Cell Urine 0-2 /HPF (0-2); WBC Urine 0-5 /HPF (0-5)
[2023-03-13 21:32] LABS: Glucose, Whole Blood 250 mg/dL (60-115)
[2023-03-14 11:54] LABS: CT PCR NOT DETECTED (Not Detect.); NG PCR NOT DETECTED (Not Detect.)
== END 2023-03-13 22:05 | disposition home or self-care (01) ==
PROVIDERS: Emergency Provider Student in an Organized Health Care Education/Training Program
DX: E10.65 Type 1 diabetes mellitus with hyperglycemia (principal); N50.812 Left testicular pain; N50.811 Right testicular pain; F17.210 Nicotine dependence, cigarettes, uncomplicated; Z79.4 Long term (current) use of insulin
CPT/HCPCS: 0353U; 36415; 76870; 80053; 81001; 82947; 85027; 93975; 96361; 96374; 96375; 99284; J1885; J2405

== ENCOUNTER 2023-03-16 11:48 | Emergency (ER) | payer MEDICAID, SELFPAY ==
--- NOTE | ~2023-03-16 | XR_ITS ---
EXAMINATION: XR THORACIC SPINE CLINICAL INFORMATION: Midline tenderness, severe pain. COMPARISON: None available. TECHNIQUE: 3 views of the thoracic spine were obtained. FINDINGS: There is no fracture or bone destruction seen and the vertebral alignment is normal. There is no disc space narrowing. There is no abnormality of the paraspinal soft tissues. XR/XR thoracic spine 3V IMPRESSION: Unremarkable thoracic spine.
--- NOTE | ~2023-03-16 | XR_ITS ---
EXAMINATION: XR LUMBOSACRAL SPINE CLINICAL INFORMATION: Midline tenderness, severe pain. COMPARISON: None available. TECHNIQUE: Three views of the lumbosacral spine. FINDINGS: The vertebral bodies and posterior elements are normal. The disc spaces are preserved and the vertebral alignment is normal. The paraspinal soft tissues are normal. XR/XR lumbar spine 2-3V IMPRESSION: Unremarkable lumbar spine.
[2023-03-16 12:08] VITALS: BP 114/76; BP 128/68; PULSE 101; PULSE 86; RESP 17; TEMP 36.9; O2SAT 100; O2SAT 99; BMI 20.9
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
[2023-03-16 13:01] LABS: Glucose, Whole Blood 241 mg/dL (60-115)
[2023-03-16] MEDS: Ketorolac Tromethamine 30 MG/ML VIAL IM (13:30)
[2023-03-16] MEDS: HYDROmorphone HCl 1 MG/ML SYRINGE IM (13:33)
== END 2023-03-16 15:10 | disposition home or self-care (01) ==
PROVIDERS: Emergency Provider Emergency Medicine Emergency Medical Services
DX: M54.6 Pain in thoracic spine (principal); M54.50 Low back pain, unspecified; M79.604 Pain in right leg; E10.9 Type 1 diabetes mellitus without complications; F17.210 Nicotine dependence, cigarettes, uncomplicated; Z71.6 Tobacco abuse counseling; Z79.899 Other long term (current) drug therapy
CPT/HCPCS: 72072; 72100; 82947; 96372; 99284; J1170; J1885

== ENCOUNTER 2023-04-13 08:55 | Emergency (ER) | payer MEDICAID, SELFPAY ==
--- NOTE | ~2023-04-13 | XR_ITS ---
EXAMINATION: XR CHEST CLINICAL INFORMATION: Left-sided pain. COMPARISON: Portable chest radiograph dated 09/29/2022. TECHNIQUE: Frontal view of the chest was obtained. FINDINGS: No significant abnormality is noted involving the heart, lungs, mediastinum, bony thorax or soft tissues. XR/XR chest 1V IMPRESSION: No acute cardiopulmonary process.
[2023-04-13 09:05] VITALS: BP 124/77; BP 137/82; PULSE 90; PULSE 98; RESP 14; TEMP 36.7; O2SAT 100; BMI 18.7
[2023-04-13 09:20] LABS: MANUAL DIFF FLAG NO
[2023-04-13 09:28] LABS: Basophils Absolute Auto 0.1 X10*3/uL (0.0-0.2); Basophils Percent Auto 0.8 % (0-2); Eosinophils Absolute Auto 0.1 X10*3/uL (0.0-0.4); Eosinophils Percent Auto 1.5 % (0-4); Hematocrit 44.2 % (42.0-52.0); Hemoglobin 14.4 g/dl (14.0-18.0); Imm Gran Abs Auto 0.03 X10*3/uL (0.00-0.03); Imm Gran Pct Auto 0.4 % (0.0-0.4); Lymphocytes Absolute Auto 2.1 X10*3/uL (1.2-4.9); Lymphocytes Percent Auto 27.5 % (20-40); Mean Corpuscular HGB Conc 32.6 g/dl (31.0-36.0); Mean Corpuscular Hemoglobin 25.7 pg (27.0-33.0); Mean Corpuscular Volume 78.9 fL (80.0-98.0); Mean Platelet Volume 10.4 fL (9.4-12.4); Monocytes Absolute Auto 0.4 X10*3/uL (0.1-1.2); Monocytes Percent Auto 5.4 % (2-11); Neutrophils Absolute Auto 4.9 x10*3/uL (2.0-8.3); Neutrophils Percent Auto 64.4 % (45-73); Platelet Count 277 X10*3/uL (160-400); Red Cell Distribution Width 14.3 % (11.0-16.0); White Blood Count 7.6 X10*3/uL (4.8-10.8)
--- NOTE | 2023-04-13 09:32 | ECG_ITS ---
Test Reason : cp Blood Pressure : / mmHG Vent. Rate : 102 BPM Atrial Rate : 102 BPM P-R Int : 124 ms QRS Dur : 084 ms QT Int : 344 ms P-R-T Axes : 072 005 075 degrees QTc Int : 448 ms Poor data quality, interpretation may be adversely affected Sinus tachycardia Abnormal ECG When compared with ECG of 19-DEC-2022 12:07, No significant change was found Referred By: Payton Wang Electronically Signed By:FERNANDEZ GRAJEDA
--- NOTE | 2023-04-13 09:38 | ED.CHESTPAIN ---
HPI - Chest Pain General Chief Complaint: General Medical Stated Complaint: CHEST/BACK PAIN W/VOMITING Time Seen by Provider: 04/13/23 09:20 Source: patient and old records reviewed Mode of arrival: EMS Limitations: no limitations History of Present Illness HPI narrative: 28 yo male with PMH of IDDM last dosed this AM, gastroparesis, DKA, was admitted in December for similar issues but left AMA - he comes in with c/o one day of L sided pleuritic chest pain and back pain denies IVDA denies fevers cough. States he has had abdominal pain as well with n/v. He states his blood sugar was in the 300s today. He has not been able to eat or drink. He does not use any devices like a dexcom due to insurance issues. MD complaint: chest pain Onset (ago): day(s) (1) Timing of current episode: constant Prior episodes: Yes Onset: during rest Pain location: left chest and lateral Pain radiation: left arm and back Severity: severe Quality: sharp and other Relieving factors: nothing Exacerbating factors: inspiration, palpation and movement Associated symptoms: nausea, vomiting and dyspnea Treatment prior to arrival: none Related Data Home Medications Medication Instructions Recorded Confirmed insulin aspart U-100 100 unit/mL See Rx Instructions .Route .COMPLEX 12/19/22 01/23/23 (3 mL) subcutaneous pen (Novolog FlexPen U-100 Insulin aspart) insulin glargine 100 unit/mL (3 20 unit subcut DAILY 12/19/22 01/23/23 mL) subcutaneous pen (Lantus Solostar U-100 Insulin) pantoprazole 40 mg tablet,delayed 40 mg PO DAILY@0630 12/19/22 01/23/23 release (Protonix) acetaminophen 325 mg tablet 650 mg PO Q6H PRN Pain 01/23/23 01/23/23 gabapentin 300 mg capsule 300 mg PO BID 01/23/23 01/23/23 promethazine 25 mg tablet 25 mg PO TID PRN nausea/vomiting 01/23/23 01/23/23 Previous Rx's Medication Instructions Recorded dicyclomine 20 mg tablet 20 mg PO QID #60 tabs 01/23/23 dqyejanan-bncmyeufq-svaksrly-scop 1 tab PO BID PRN Nausea, vomiting 01/23/23 16.2 mg-0.1037 mg-0.0194 mg tablet #14 tabs () promethazine 25 mg tablet 25 mg PO TID PRN nausea and 03/11/23 vomiting #20 tabs cyclobenzaprine 10 mg tablet 10 mg PO TID PRN muscle spasm #14 03/16/23 tabs lidocaine 5 % topical patch 1 patch topical DAILY #15 ea 03/16/23 naproxen 500 mg tablet 500 mg PO BID PRN pain #20 tabs 03/16/23 ondansetron 4 mg disintegrating 4 mg PO Q8H PRN nausea and 04/13/23 tablet vomiting #20 tabs Allergies Allergy/AdvReac Type Severity Reaction Status Date / Time diphenhydramine Allergy Anaphylaxis Verified 02/28/23 02:47 [From Benadryl] haloperidol [From Haldol] Allergy Difficulty Verified 02/28/23 02:47 Swallowing Review of Systems Review of Systems: Constitutional : No Weight loss, No Fever, No Chills ENT/Mouth : No sore throat, No Rhinorrhea Eyes: No Eye Pain, No swelling, no sore throat Cardiovascular : pos Chest Pain, pos SOB, no Dyspnea on Exertion, No Orthopnea, No Edema, No Palpitations Respiratory : No Cough, No Sputum Gastrointestinal : pos Nausea, pos Vomiting, No Diarrhea, No abdominal Pain, No Hematochezia, No Melena Genitourinary : No Dysuria, No Urinary Frequency Musculoskeletal : No joint pain, No Myalgias, No Joint Swelling Skin : No Skin Lesions, No rash Neuro : No Weakness, No Numbness, No Dizziness, No Headache Psych : No Anxiety/Panic, No Depression All other systems reviewed and are negative [facility] Past Medical History Attestation statement: The following information was validated with the patient. Medical History Gates esophagus Diabetes mellitus type 1 Left against medical advice Social History Social History Household Members: Other Household Members Other:: cousin Housing: House Do you presently have visiting nurse or other home services: No Alcohol intake: never Patient Tobacco Use Status: Current everyday Tobacco user Tobacco use type: Cigarette Cigarette Packs Per Day: 0 Cigarettes Per Day: 0 Years Smoked: 10 e-Cigarette/Vaping Use: Never Used Second Hand Smoke Exposure: No Substance Use Type: Marijuana Advance Directives: No service: No Current occupational status: employed Physical Exam Vital Signs: Vital Signs: Last Vital Signs Temp 97.9 F 04/13/23 11:13 Pulse 88 04/13/23 11:13 Resp 18 04/13/23 11:13 BP 102/72 04/13/23 11:13 Pulse Ox 98 04/13/23 11:13 O2 Del Method Room Air 04/13/23 11:13 BMI result Body Mass Index 18.7 Appearance: Alert. Oriented X3. crying, tearful mild acute distress. hyperventilating Eyes: Pupils equal, round and reactive to light. ENT: Pharynx very dry MM Neck: Normal inspection. Neck supple. CVS: Normal heart rate and rhythm. Pulses normal. Respiratory: Mild respiratory distress - tachypnea. Breath sounds normal. I hear lungs sound on left he is hyperventilating so I am having a hard time getting good exam Abdomen: Soft and diffuse ttp Skin: Skin warm and dry. pale skin color. Normal skin turgor. Extremities: No lower extremity edema. No calf ttp Neuro: Oriented X 3. No motor deficit. No sensory deficit. Course Course Course Narrative: lactic acid cleared, work up unremarkable Reevaluation(s) Reevaluation #1: pain improved with IV dilaudid Medications Administered Discontinued Medications Generic Name Dose Route Start Last Admin Trade Name Wilfredo PRN Reason Stop Dose Admin Hydromorphone HCl 0.5 mg 04/13/23 09:32 04/13/23 09:45 Hydromorphone Hcl 0.5 Mg/0.5 Ml Syringe IVPUSH 04/13/23 09:33 0.5 mg ONCE ONE Administration Protocol Lactated Ringer's 1,000 mls @ 999 mls/hr 04/13/23 09:45 04/13/23 11:21 Lr IV 04/13/23 10:45 Infused .Q1H1M JELENA Infusion Lactated Ringer's 1,000 mls @ 999 mls/hr 04/13/23 10:15 04/13/23 11:21 Lr IV 04/13/23 11:15 999 mls/hr .Q1H1M JELENA Administration Ondansetron HCl 4 mg 04/13/23 09:32 04/13/23 09:45 Ondansetron Hcl 4 Mg/2 Ml Vial IVPUSH 04/13/23 09:33 4 mg ONCE ONE Administration Medical Decision Making Medical Decision Making [facility] Narrative: 28 yo male with PMH of IDDM last dosed this AM, gastroparesis, DKA here with L sided chest pain abdominal pain and n/v for 1 day he denies trauma, IVDA, infectious symptoms he is not the best historian. He has a hx of DKA and leaving AMA - at this time he reports taking his insulin. He needs labs, IVF x2L, pain control - CXR for PTX effusion. EKG and troponin. He could have pleurisy as well. Differential Diagnosis Differential Diagnoses: The differential diagnosis associated with the presentation includes DKA, gastroparesis, pleurisy, VTE Admission/Observation Consideration of admission/observation: Escalation of care including admission/observation considered other than stating he has pain no other acute findings on workup at this time no signs of infection, no DKA, no VTE feels much better pain resolved - stable for DC Lab Data [facility] Lab Attestation statement: I reviewed the patient's lab results. not in DKA - VBG likely d ue to hyperventilation ddimer negative trop flat 04/13/23 09:13 04/13/23 09:13 Labs: Lab Results 04/13/23 04/13/23 04/13/23 Range/Units 09:13 09:13 09:40 WBC 7.6 (4.8-10.8) X10*3/uL RBC 5.60 (4.60-5.80) X10*6/uL Hgb 14.4 (14.0-18.0) g/dl Hct 44.2 (42.0-52.0) % MCV 78.9 L (80.0-98.0) fL MCH 25.7 L (27.0-33.0) pg MCHC 32.6 (31.0-36.0) g/dl RDW 14.3 (11.0-16.0) % Plt Count 277 (160-400) X10*3/uL MPV 10.4 (9.4-12.4) fL Immature Gran % (Auto) 0.4 (0.0-0.4) % Neut % (Auto) 64.4 (45-73) % Lymph % (Auto) 27.5 (20-40) % [place] % (Auto) 5.4 (2-11) % Eos % (Auto) 1.5 (0-4) % Baso % (Auto) 0.8 (0-2) % Lymph # (Auto) 2.1 (1.2-4.9) X10*3/uL [place] # (Auto) 0.4 (0.1-1.2) X10*3/uL Eos # (Auto) 0.1 (0.0-0.4) X10*3/uL Baso # (Auto) 0.1 (0.0-0.2) X10*3/uL Abs Immat Gran (auto) 0.03 (0.00-0.03) X10*3/uL Absolute Neuts (auto) 4.9 (2.0-8.3) x10*3/uL Absolute Nucleated RBC 0.000 (0.0-0.012) X10*3/uL Nucleated RBC % (auto) 0.0 (0.0-0.2) /100WBC D-Dimer High Sensitivty < 150 NG/ML VBG pH (7.32-7.43) VBG pCO2 mmHg VBG pO2 mmHg VBG HCO3 (22-26) mmol/L VBG O2 Saturation % VBG Base Excess mmol/L Sodium 133 L (135-145) mmol/L Potassium 5.1 (3.3-5.1) mmol/L Chloride 101 (96-108) mmol/L Carbon Dioxide 19 L (22-29) mmol/L Anion Gap 18 (12-20) BUN 15 (9-16) mg/dL Creatinine 0.99 (0.5-1.4) mg/dL Estim Creat Clear Calc 99.3 Estimated GFR > 60 Random Glucose 348 H (60-115) mg/dL Lactic Acid (0.5-2.0) mmol/L Lactic Acid F/U @ 2Hr (0.5-2.0) mmol/L Calcium 10.0 (8.4-10.2) mg/dL Total Bilirubin 0.7 (0.0-1.0) mg/dL AST 23 (5-37) U/L ALT 17 (0-40) U/L Alkaline Phosphatase 71 (39-117) U/L Troponin I High Sens (<3.5-35.0) ng/L Total Protein 7.6 (6.5-8.0) g/dL Albumin 4.1 (3.5-5.0) g/dL Lipase (8-78) U/L Ethyl Alcohol mg/dL COVID-19 ([facility]) (Negative) COVID-19 Clin Com 04/13/23 04/13/23 04/13/23 Range/Units 09:40 09:40 09:40 WBC (4.8-10.8) X10*3/uL RBC (4.60-5.80) X10*6/uL Hgb (14.0-18.0) g/dl Hct (42.0-52.0) % MCV (80.0-98.0) fL MCH (27.0-33.0) pg MCHC (31.0-36.0) g/dl RDW (11.0-16.0) % Plt Count (160-400) X10*3/uL MPV (9.4-12.4) fL Immature Gran % (Auto) (0.0-0.4) % Neut % (Auto) (45-73) % Lymph % (Auto) (20-40) % [place] % (Auto) (2-11) % Eos % (Auto) (0-4) % Baso % (Auto) (0-2) % Lymph # (Auto) (1.2-4.9) X10*3/uL [place] # (Auto) (0.1-1.2) X10*3/uL Eos # (Auto) (0.0-0.4) X10*3/uL Baso # (Auto) (0.0-0.2) X10*3/uL Abs Immat Gran (auto) (0.00-0.03) X10*3/uL Absolute Neuts (auto) (2.0-8.3) x10*3/uL Absolute Nucleated RBC (0.0-0.012) X10*3/uL Nucleated RBC % (auto) (0.0-0.2) /100WBC D-Dimer High Sensitivty NG/ML VBG pH (7.32-7.43) VBG pCO2 mmHg VBG pO2 mmHg VBG HCO3 (22-26) mmol/L VBG O2 Saturation % VBG Base Excess mmol/L Sodium (135-145) mmol/L Potassium (3.3-5.1) mmol/L Chloride (96-108) mmol/L Carbon Dioxide (22-29) mmol/L Anion Gap (12-20) BUN (9-16) mg/dL Creatinine (0.5-1.4) mg/dL Estim Creat Clear Calc Estimated GFR Random Glucose (60-115) mg/dL Lactic Acid 2.6 H* (0.5-2.0) mmol/L Lactic Acid F/U @ 2Hr (0.5-2.0) mmol/L Calcium (8.4-10.2) mg/dL Total Bilirubin (0.0-1.0) mg/dL AST (5-37) U/L ALT (0-40) U/L Alkaline Phosphatase (39-117) U/L Troponin I High Sens (<3.5-35.0) ng/L Total Protein (6.5-8.0) g/dL Albumin (3.5-5.0) g/dL Lipase 6 L (8-78) U/L Ethyl Alcohol < 10 mg/dL COVID-19 ([facility]) Negative (Negative) COVID-19 Clin Com See Note 04/13/23 04/13/23 04/13/23 Range/Units 09:40 09:55 12:16 WBC (4.8-10.8) X10*3/uL RBC (4.60-5.80) X10*6/uL Hgb (14.0-18.0) g/dl Hct (42.0-52.0) % MCV (80.0-98.0) fL MCH (27.0-33.0) pg MCHC (31.0-36.0) g/dl RDW (11.0-16.0) % Plt Count (160-400) X10*3/uL MPV (9.4-12.4) fL Immature Gran % (Auto) (0.0-0.4) % Neut % (Auto) (45-73) % Lymph % (Auto) (20-40) % [place] % (Auto) (2-11) % Eos % (Auto) (0-4) % Baso % (Auto) (0-2) % Lymph # (Auto) (1.2-4.9) X10*3/uL [place] # (Auto) (0.1-1.2) X10*3/uL Eos # (Auto) (0.0-0.4) X10*3/uL Baso # (Auto) (0.0-0.2) X10*3/uL Abs Immat Gran (auto) (0.00-0.03) X10*3/uL Absolute Neuts (auto) (2.0-8.3) x10*3/uL Absolute Nucleated RBC (0.0-0.012) X10*3/uL Nucleated RBC % (auto) (0.0-0.2) /100WBC D-Dimer High Sensitivty NG/ML VBG pH 7.61 H* (7.32-7.43) VBG pCO2 23 mmHg VBG pO2 60 mmHg VBG HCO3 23 (22-26) mmol/L VBG O2 Saturation 93.0 % VBG Base Excess 4.3 mmol/L Sodium (135-145) mmol/L Potassium (3.3-5.1) mmol/L Chloride (96-108) mmol/L Carbon Dioxide (22-29) mmol/L Anion Gap (12-20) BUN (9-16) mg/dL Creatinine (0.5-1.4) mg/dL Estim Creat Clear Calc Estimated GFR Random Glucose (60-115) mg/dL Lactic Acid (0.5-2.0) mmol/L Lactic Acid F/U @ 2Hr 1.4 (0.5-2.0) mmol/L Calcium (8.4-10.2) mg/dL Total Bilirubin (0.0-1.0) mg/dL AST (5-37) U/L ALT (0-40) U/L Alkaline Phosphatase (39-117) U/L Troponin I High Sens < 2.7 (<3.5-35.0) ng/L Total Protein (6.5-8.0) g/dL Albumin (3.5-5.0) g/dL Lipase (8-78) U/L Ethyl Alcohol mg/dL COVID-19 ([facility]) (Negative) COVID-19 Clin Com Independent Interpretation I performed an independent interpretation of an: EKG and Plain X-Ray Interpretation: Rate: 102 Rhythm: sinus tachycardia [place]: normal Normal P waves. Normal ERICA. Normal QRS complex. ST T wave : normal no DES qTC: normal prior studies: no acute ischemia The study has been interpreted contemporaneously by me. . Radiology Impression Discussion of test interpretation with radiology: I have reviewed the radiologist's reading. Independent Historian Clinical information obtained from an independent historian. History obtained from or confirmed by: EMS External Record Review External record reviewed: Inpatient record Critical Care Time Critical Care Time Critical Care Time: Yes Total Critical Care Time: 60 Attestation: pain improved with IV dilaudid, IVF x 2L, reassessments, recheck lactic acid I attest to this time spent taking care of the patient Discharge Plan Discharge Clinical Impression: Atypical chest pain Nausea & vomiting Qualifiers: Vomiting type: unspecified Qualified Code(s): R11.2 - Nausea with vomiting, unspecified Patient Disposition: Home, Self-Care Instructions: Chest Pain (ED), Acute Nausea and Vomiting (ED) Additional Instructions: check your sugars today stay hydrated return for worsening pain, fevers, vomiting, or any other concerns. Prescriptions: New ondansetron 4 mg tablet,disintegrating 4 mg PO Q8H PRN (Reason: nausea and vomiting) Qty: 20 0RF No Action insulin aspart U-100 [Novolog FlexPen U-100 Insulin] 100 unit/mL (3 mL) insulin pen See Rx Instructions .ROUTE .COMPLEX Rx Instructions: 1 unit of insulin for every 35 units over 135 insulin glargine [Lantus Solostar U-100 Insulin] 100 unit/mL (3 mL) insulin pen 20 unit subcut DAILY pantoprazole [Protonix] 40 mg tablet,delayed release (DR/EC) 40 mg PO DAILY@0630 promethazine 25 mg tablet 25 mg PO TID PRN (Reason: nausea/vomiting) gabapentin 300 mg capsule 300 mg PO BID acetaminophen 325 mg Tablet 650 mg PO Q6H PRN (Reason: Pain) dicyclomine 20 mg tablet 20 mg PO QID Qty: 60 0RF Rx Instructions: Take 30 minutes before eating, 30 minutes before bed mgnlvqsdp-rppujg-fbejhuav-scop [] 16.2-0.1037 -0.0194 mg tablet 1 tab PO BID PRN (Reason: Nausea, vomiting) Qty: 14 0RF promethazine 25 mg tablet 25 mg PO TID PRN (Reason: nausea and vomiting) Qty: 20 0RF cyclobenzaprine 10 mg tablet 10 mg PO TID PRN (Reason: muscle spasm) Qty: 14 0RF lidocaine 5 % adhesive patch,medicated 1 patch topical DAILY Qty: 15 0RF Rx Instructions: leave on most painful area for up to 12 hrs naproxen 500 mg tablet 500 mg PO BID PRN (Reason: pain) Qty: 20 0RF
[2023-04-13] MEDS: ondansetron HCL 4 MG/2 ML VIAL IVPUSH (09:45)
[2023-04-13] MEDS: HYDROmorphone HCl 0.5 MG/0.5 ML SYRINGE IVPUSH (09:45)
[2023-04-13] MEDS: Lactated Ringers 1,000 ML 999 ML IV ×2 (09:46→11:21)
[2023-04-13 10:01] LABS: Venous Blood Gas Refer to POC result
[2023-04-13 10:02] LABS: VBG Base Excess 4.3 mmol/L; VBG HCO3 23 mmol/L (22-26); VBG pCO2 23 mmHg; VBG pH 7.61 (7.32-7.43); VBG pO2 60 mmHg
[2023-04-13 10:07] LABS: Alanine Aminotransferase 17 U/L (0-40); Albumin Level 4.1 g/dL (3.5-5.0); Alkaline Phosphatase 71 U/L (39-117); Anion Gap 18 (12-20); Aspartate Amino Transferase 23 U/L (5-37); Bilirubin Total 0.7 mg/dL (0.0-1.0); Blood Urea Nitrogen 15 mg/dL (9-16); Carbon Dioxide 19 mmol/L (22-29); Chloride 101 mmol/L (96-108); Creatinine Clr Calc Pharmacy 99.3; Estimated Glomerular Filt Rate > 60; Glucose Random 348 mg/dL (60-115); Potassium 5.1 mmol/L (3.3-5.1); Sodium 133 mmol/L (135-145); Total Protein 7.6 g/dL (6.5-8.0)
[2023-04-13 10:08] LABS: D Dimer High Sensitivity < 150 NG/ML
[2023-04-13 10:14] LABS: Ethanol < 10 mg/dL; Lipase 6 U/L (8-78)
[2023-04-13 10:17] LABS: COVID-19 Test Negative (Negative); IDNOW Serial# 08D9AD1C
[2023-04-13 10:25] LABS: Lactic Acid 2.6 mmol/L (0.5-2.0); Troponin-I High Sensitivity < 2.7 ng/L (<3.5-35.0)
[2023-04-13 11:13] VITALS: BP 102/72; PULSE 88; RESP 18; TEMP 36.6; O2SAT 98
--- NOTE | 2023-04-13 11:26 | PC.NURSE ---
patient is resting quietly in bed, respirations equal and unlabored
[2023-04-13 11:52] LABS: Reflex Lactate? Lactic Acid Added
[2023-04-13 12:48] LABS: ~Lactic Acid-LAB USE ONLY 1.4 mmol/L (0.5-2.0)
[2023-04-13 13:23] VITALS: BP 99/53; PULSE 82; RESP 16; TEMP 36.7; O2SAT 98
== END 2023-04-13 13:34 | disposition home or self-care (01) ==
PROVIDERS: Emergency Provider Emergency Medicine
DX: R07.89 Other chest pain (principal); R11.2 Nausea with vomiting, unspecified; R06.02 Shortness of breath; Z20.822 Contact with and (suspected) exposure to COVID-19; E10.9 Type 1 diabetes mellitus without complications; F17.210 Nicotine dependence, cigarettes, uncomplicated; F12.90 Cannabis use, unspecified, uncomplicated; Z79.4 Long term (current) use of insulin; Z79.899 Other long term (current) drug therapy
CPT/HCPCS: 36415; 71045; 80053; 80307; 82803; 83605; 83690; 84484; 85025; 85379; 87635; 93005; 96361; 96374; 96375; 99284; J1170; J2405

== ENCOUNTER 2023-04-14 12:19 | Outpatient (REF) | payer MEDICAID, SELFPAY ==
--- NOTE | ~2023-04-14 | XR_ITS ---
STUDY: Thoracic spine and bilateral rib series INDICATION: Acute worsening thoracic pain between shoulder blades radiating to both sides of the body present for over a year. COMPARISON: 04/13/2023 chest radiograph TECHNIQUE: 3 view thoracic spine, 2 view each rib series FINDINGS: Thoracic spine: Vertebral bodies and intervertebral discs are maintained in height. Pedicles and visualized ribs are intact. No focal paravertebral soft tissue swelling. Heart and mediastinum within normal limits. Mild biapical pleural thickening otherwise clear lungs. Right RIBS: No fracture or suspicious lesions. Left RIBS: No fracture or suspicious lesions. XR/XR ribs LT 2V IMPRESSION: No recognizable bony pathology.
--- NOTE | ~2023-04-14 | XR_ITS ---
STUDY: Thoracic spine and bilateral rib series INDICATION: Acute worsening thoracic pain between shoulder blades radiating to both sides of the body present for over a year. COMPARISON: 04/13/2023 chest radiograph TECHNIQUE: 3 view thoracic spine, 2 view each rib series FINDINGS: Thoracic spine: Vertebral bodies and intervertebral discs are maintained in height. Pedicles and visualized ribs are intact. No focal paravertebral soft tissue swelling. Heart and mediastinum within normal limits. Mild biapical pleural thickening otherwise clear lungs. Right RIBS: No fracture or suspicious lesions. Left RIBS: No fracture or suspicious lesions. XR/XR ribs RT 2V IMPRESSION: No recognizable bony pathology.
--- NOTE | ~2023-04-14 | XR_ITS ---
STUDY: Thoracic spine and bilateral rib series INDICATION: Acute worsening thoracic pain between shoulder blades radiating to both sides of the body present for over a year. COMPARISON: 04/13/2023 chest radiograph TECHNIQUE: 3 view thoracic spine, 2 view each rib series FINDINGS: Thoracic spine: Vertebral bodies and intervertebral discs are maintained in height. Pedicles and visualized ribs are intact. No focal paravertebral soft tissue swelling. Heart and mediastinum within normal limits. Mild biapical pleural thickening otherwise clear lungs. Right RIBS: No fracture or suspicious lesions. Left RIBS: No fracture or suspicious lesions. XR/XR thoracic spine 2V IMPRESSION: No recognizable bony pathology.
== END 2023-04-14 12:20 | disposition home or self-care (01) ==
LOC: HO.HHCX 12:19
PROVIDERS: Visit Provider Student in an Organized Health Care Education/Training Program
DX: M54.6 Pain in thoracic spine (principal); R07.81 Pleurodynia
CPT/HCPCS: 71100; 72070

== ENCOUNTER 2023-04-14 18:08 | Outpatient (REF) | payer MEDICAID, SELFPAY ==
[2023-04-14 18:24] LABS: Appearance Urine Clear; Color Urine Yellow; Glucose Urine UA >=1000 mg/dL (Negative); Leukocyte Esterase Urine Negative (Negative); Nitrite Urine Negative (Negative); PH 6.5 (5.0-9.0); Specific Gravity - Urine >= 1.030 (1.005-1.025); UMIC TRIGGER UACC YES; Urine Blood Negative (Negative); Urine Ketones 40 mg/dL (Negative); Urine Protein Negative (Neg-Trace)
[2023-04-14 18:29] LABS: Bacteria Urine None Seen (None Seen); Hyaline Casts Urine 0-2 /LPF (0-2); RBC Urine 0-2 /HPF (0-2); Squamous Epithelial Cell Urine 0-2 /HPF (0-2); WBC Urine 0-5 /HPF (0-5)
== END 2023-04-14 18:09 | disposition home or self-care (01) ==
LOC: HO.LNP 18:08
PROVIDERS: Visit Provider Student in an Organized Health Care Education/Training Program
DX: E10.10 Type 1 diabetes mellitus with ketoacidosis without coma (principal)
CPT/HCPCS: 81001

== ENCOUNTER 2023-04-22 05:58 | Emergency (ER) | payer MEDICAID, SELFPAY ==
[2023-04-22 06:09] VITALS: BP 100/64; BP 133/86; PULSE 86; PULSE 88; RESP 20; TEMP 37.1; O2SAT 100; O2SAT 99; BMI 20.1
[2023-04-22 06:25] LABS: Glucose, Whole Blood 80 mg/dL (60-115)
[2023-04-22 07:08] LABS: Glucose, Whole Blood 34 mg/dL (60-115)
[2023-04-22 07:21] LABS: Glucose, Whole Blood 38 mg/dL (60-115)
--- NOTE | 2023-04-22 07:23 | ED_ITS ---
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 Patient now declined any chest pain or shortness of breath. Related Data Home Medications Medication Instructions Recorded Confirmed insulin aspart U-100 100 unit/mL See Rx Instructions .Route .COMPLEX 12/19/22 01/23/23 (3 mL) subcutaneous pen (Novolog FlexPen U-100 Insulin aspart) insulin glargine 100 unit/mL (3 20 unit subcut DAILY 12/19/22 01/23/23 mL) subcutaneous pen (Lantus Solostar U-100 Insulin) pantoprazole 40 mg tablet,delayed 40 mg PO DAILY@0630 12/19/22 01/23/23 release (Protonix) acetaminophen 325 mg tablet 650 mg PO Q6H PRN Pain 01/23/23 01/23/23 gabapentin 300 mg capsule 300 mg PO BID 01/23/23 01/23/23 promethazine 25 mg tablet 25 mg PO TID PRN nausea/vomiting 01/23/23 01/23/23 Previous Rx's Medication Instructions Recorded dicyclomine 20 mg tablet 20 mg PO QID #60 tabs 01/23/23 gxngujppf-yqhpicdqx-qdrvmhwe-scop 1 tab PO BID PRN Nausea, vomiting 01/23/23 16.2 mg-0.1037 mg-0.0194 mg tablet #14 tabs () promethazine 25 mg tablet 25 mg PO TID PRN nausea and 03/11/23 vomiting #20 tabs cyclobenzaprine 10 mg tablet 10 mg PO TID PRN muscle spasm #14 03/16/23 tabs lidocaine 5 % topical patch 1 patch topical DAILY #15 ea 03/16/23 naproxen 500 mg tablet 500 mg PO BID PRN pain #20 tabs 03/16/23 ondansetron 4 mg disintegrating 4 mg PO Q8H PRN nausea and 04/13/23 tablet vomiting #20 tabs Allergies Allergy/AdvReac Type Severity Reaction Status Date / Time diphenhydramine Allergy Anaphylaxis Verified 02/28/23 02:47 [From Benadryl] haloperidol [From Haldol] Allergy Difficulty Verified 02/28/23 02:47 Swallowing Review of Systems Review of Systems: All other systems are reviewed and are negative Constitutional: Reports as per HPI and Reports no additional constitutional complaints Eyes: Reports as per HPI and Reports no additional eye complaints Reports system reviewed and no additional complaints, except as documented Cardiovascular: Reports as per HPI and Reports no additional cardiovascular complaints Respiratory: Reports as per HPI and Reports no additional respiratory complaints Gastrointestinal: Reports as per HPI and Reports no additional gastrointestinal complaints Genitourinary: Reports no additional female genitourinary complaints Musculoskeletal: Reports no additional musculoskeletal complaints Skin/Breast: Reports system reviewed and no additional complaints, except as docu Psychiatric: Reports no additional psychiatric complaints Endocrine: Reports no additional endocrine complaints Hematologic/Lymphatic: Reports no additional hematologic/lymphatic complaints Allergic/Immunologic: Reports no additional allergic/immunologic complaints Reports system reviewed and no additional complaints, except as documented and Reports Abnormal speech present [facility] Past Medical History Medical History Gates esophagus Diabetes mellitus type 1 Left against medical advice Social History Social History Household Members: Other Household Members Other:: cousin Housing: House Do you presently have visiting nurse or other home services: No Alcohol intake: current Alcohol intake frequency: a few times a month Patient Tobacco Use Status: Current everyday Tobacco user Tobacco use type: Cigarette Cigarette Packs Per Day: 0 Cigarettes Per Day: 0 Years Smoked: 10 Smoked in Last 30 Days: Yes e-Cigarette/Vaping Use: Never Used Second Hand Smoke Exposure: No Use of substances other than those prescribed or required for medical reasons: Yes Substance Use Type: Marijuana Advance Directives: No Advance Directives Information Provided: Yes service: No Current occupational status: employed Physical Exam ED Vital Signs: Vital Signs - 24 hr 04/22/23 06:09 04/22/23 10:47 Temperature 98.7 F 98.0 F Pulse Rate 86 79 Respiratory Rate 20 16 Blood Pressure 100/64 101/66 Pulse Oximetry 100 98 Oxygen Delivery Method Room Air Room Air BMI result Body Mass Index 20.1 Vital signs have been reviewed as appeared to be correct. Blood pressure normal. Heart rate normal. Respiration rate normal. Temperature normal. Oxygen saturation normal. Appearance: Alert. Oriented X3. No acute distress. Head: Normal external exam. Normocephalic. Atraumatic. No [place] signs noted. No raccoon eyes noted Eyes: PERRLA. EOMI. Conjunctiva and sclera normal. Eyelids normal. ENT: TM's Normal. Pharynx normal. Uvula midline. Moist mucous membranes. No trismus noted. No drooling noted. No muffled voice noted. Neck: Normal inspection. Neck supple. FROM. No adenopathy. Thyroid Normal. No meningeal signs. No neck mass noted. CVS: Normal heart rate and rhythm. Heart sound normal. No murmurs noted. Pulses normal throughout. Respiratory: No respiratory distress. Painless inspiration. Breath sounds normal. No wheezes/rales/rhonchi noted. Chest nontender. No accessory muscle usage noted or decreased air movement noted. Abdomen: Soft and nontender. Bowel sounds normal in all 4 quadrants. No distention noted. No organomegaly noted. No visible injury noted. Back: No CVA tenderness. Full range of motion noted. Skin: Skin warm and dry. Normal skin color. Normal skin turgor. No rashes/lesions/lacerations noted. Extremities: No lower extremity edema. Extremities exhibit normal range of motion. Extremities nontender. Neuro: Oriented X 3. Cranial nerve exam: II-XII are grossly intact No motor deficit. No sensory deficit. Reflexes normal. Course Course Course Narrative: FEELS BETTER NOW, K+ WAS REPLACED IN THE ED. Medications Administered Discontinued Medications Generic Name Dose Route Start Last Admin Trade Name Freq PRN Reason Stop Dose Admin Ketorolac Tromethamine 30 mg 04/22/23 07:22 04/22/23 10:21 Ketorolac Tromethamine 30 Mg/Ml Vial IVPUSH 04/22/23 07:23 Not Given ONCE ONE Ketorolac Tromethamine 30 mg 04/22/23 08:16 04/22/23 08:23 Ketorolac Tromethamine 30 Mg/Ml Vial IM 04/22/23 08:17 30 mg ONCE ONE Administration Potassium Chloride 40 meq 04/22/23 08:15 04/22/23 08:22 Potassium Chloride Packet 20 Meq Packet PO 04/22/23 08:16 40 meq ONCE ONE Administration Medical Decision Making Differential Diagnosis Differential Diagnoses: The differential diagnosis associated with the presentation includes (DKA, ELECTROLYTS ABNORMALITY,ANEMIA, HYPOGLYCEMIA.) Admission/Observation Consideration of admission/observation: Escalation of care including admission/observation considered Lab Data MDM Lab Attestation statement: I reviewed the patient's lab results. 04/22/23 07:34 04/22/23 07:34 Labs: Lab Results 04/22/23 04/22/23 04/22/23 Range/Units 06:20 07:02 07:18 WBC (4.8-10.8) X10*3/uL RBC (4.60-5.80) X10*6/uL Hgb (14.0-18.0) g/dl Hct (42.0-52.0) % MCV (80.0-98.0) fL MCH (27.0-33.0) pg MCHC (31.0-36.0) g/dl RDW (11.0-16.0) % Plt Count (160-400) X10*3/uL MPV (9.4-12.4) fL Immature Gran % (Auto) (0.0-0.4) % Neut % (Auto) (45-73) % Lymph % (Auto) (20-40) % [place] % (Auto) (2-11) % Eos % (Auto) (0-4) % Baso % (Auto) (0-2) % Lymph # (Auto) (1.2-4.9) X10*3/uL [place] # (Auto) (0.1-1.2) X10*3/uL Eos # (Auto) (0.0-0.4) X10*3/uL Baso # (Auto) (0.0-0.2) X10*3/uL Abs Immat Gran (auto) (0.00-0.03) X10*3/uL Absolute Neuts (auto) (2.0-8.3) x10*3/uL Absolute Nucleated RBC (0.0-0.012) X10*3/uL Nucleated RBC % (auto) (0.0-0.2) /100WBC Sodium (135-145) mmol/L Potassium (3.3-5.1) mmol/L Chloride (96-108) mmol/L Carbon Dioxide (22-29) mmol/L Anion Gap (12-20) BUN (9-16) mg/dL Creatinine (0.5-1.4) mg/dL Estim Creat Clear Calc Estimated GFR POC Glucose 80 34 L* 38 L* (60-115) mg/dL Random Glucose (60-115) mg/dL Calcium (8.4-10.2) mg/dL Lipase (8-78) U/L 04/22/23 04/22/23 04/22/23 Range/Units 07:21 07:34 07:34 WBC 9.4 (4.8-10.8) X10*3/uL RBC 5.20 (4.60-5.80) X10*6/uL Hgb 13.2 L (14.0-18.0) g/dl Hct 40.4 L (42.0-52.0) % MCV 77.7 L (80.0-98.0) fL MCH 25.4 L (27.0-33.0) pg MCHC 32.7 (31.0-36.0) g/dl RDW 14.1 (11.0-16.0) % Plt Count 289 (160-400) X10*3/uL MPV 9.7 (9.4-12.4) fL Immature Gran % (Auto) 0.2 (0.0-0.4) % Neut % (Auto) 43.6 L (45-73) % Lymph % (Auto) 45.5 H (20-40) % [place] % (Auto) 7.2 (2-11) % Eos % (Auto) 2.5 (0-4) % Baso % (Auto) 1.0 (0-2) % Lymph # (Auto) 4.3 (1.2-4.9) X10*3/uL [place] # (Auto) 0.7 (0.1-1.2) X10*3/uL Eos # (Auto) 0.2 (0.0-0.4) X10*3/uL Baso # (Auto) 0.1 (0.0-0.2) X10*3/uL Abs Immat Gran (auto) 0.02 (0.00-0.03) X10*3/uL Absolute Neuts (auto) 4.1 (2.0-8.3) x10*3/uL Absolute Nucleated RBC 0.000 (0.0-0.012) X10*3/uL Nucleated RBC % (auto) 0.0 (0.0-0.2) /100WBC Sodium 139 (135-145) mmol/L Potassium 3.1 L D (3.3-5.1) mmol/L Chloride 107 (96-108) mmol/L Carbon Dioxide 19 L (22-29) mmol/L Anion Gap 16 (12-20) BUN 15 (9-16) mg/dL Creatinine 0.77 (0.5-1.4) mg/dL Estim Creat Clear Calc 136.8 Estimated GFR > 60 POC Glucose 41 L* (60-115) mg/dL Random Glucose 69 (60-115) mg/dL Calcium 10.1 (8.4-10.2) mg/dL Lipase 5 L (8-78) U/L Discharge Plan Discharge Clinical Impression: Hypoglycemia associated with diabetes, Acute hypokalemia Patient Disposition: Home, Self-Care Instructions: Potassium Content of Foods List (ED), Hypokalemia (ED) Prescriptions: No Action insulin aspart U-100 [Novolog FlexPen U-100 Insulin] 100 unit/mL (3 mL) insulin pen See Rx Instructions .ROUTE .COMPLEX Rx Instructions: 1 unit of insulin for every 35 units over 135 insulin glargine [Lantus Solostar U-100 Insulin] 100 unit/mL (3 mL) insulin pen 20 unit subcut DAILY pantoprazole [Protonix] 40 mg tablet,delayed release (DR/EC) 40 mg PO DAILY@0630 promethazine 25 mg tablet 25 mg PO TID PRN (Reason: nausea/vomiting) gabapentin 300 mg capsule 300 mg PO BID acetaminophen 325 mg Tablet 650 mg PO Q6H PRN (Reason: Pain) dicyclomine 20 mg tablet 20 mg PO QID Qty: 60 0RF Rx Instructions: Take 30 minutes before eating, 30 minutes before bed qxlociyri-wthgqm-mbhzumao-scop [] 16.2-0.1037 -0.0194 mg tablet 1 tab PO BID PRN (Reason: Nausea, vomiting) Qty: 14 0RF ondansetron 4 mg tablet,disintegrating 4 mg PO Q8H PRN (Reason: nausea and vomiting) Qty: 20 0RF promethazine 25 mg tablet 25 mg PO TID PRN (Reason: nausea and vomiting) Qty: 20 0RF cyclobenzaprine 10 mg tablet 10 mg PO TID PRN (Reason: muscle spasm) Qty: 14 0RF lidocaine 5 % adhesive patch,medicated 1 patch topical DAILY Qty: 15 0RF Rx Instructions: leave on most painful area for up to 12 hrs naproxen 500 mg tablet 500 mg PO BID PRN (Reason: pain) Qty: 20 0RF Stand Alone Forms: Work/School Release Interventions: ED Discharge Assessment Last Done: 04/22/23 12:06 Discharge Date/Time: 04/22/23 12:06
[2023-04-22 07:25] LABS: Glucose, Whole Blood 41 mg/dL (60-115)
[2023-04-22 07:38] LABS: MANUAL DIFF FLAG NO
[2023-04-22 07:49] LABS: Basophils Absolute Auto 0.1 X10*3/uL (0.0-0.2); Eosinophils Absolute Auto 0.2 X10*3/uL (0.0-0.4); Eosinophils Percent Auto 2.5 % (0-4); Hematocrit 40.4 % (42.0-52.0); Hemoglobin 13.2 g/dl (14.0-18.0); Imm Gran Abs Auto 0.02 X10*3/uL (0.00-0.03); Imm Gran Pct Auto 0.2 % (0.0-0.4); Lymphocytes Absolute Auto 4.3 X10*3/uL (1.2-4.9); Lymphocytes Percent Auto 45.5 % (20-40); Mean Corpuscular HGB Conc 32.7 g/dl (31.0-36.0); Mean Corpuscular Hemoglobin 25.4 pg (27.0-33.0); Mean Corpuscular Volume 77.7 fL (80.0-98.0); Mean Platelet Volume 9.7 fL (9.4-12.4); Monocytes Absolute Auto 0.7 X10*3/uL (0.1-1.2); Monocytes Percent Auto 7.2 % (2-11); Neutrophils Absolute Auto 4.1 x10*3/uL (2.0-8.3); Neutrophils Percent Auto 43.6 % (45-73); Platelet Count 289 X10*3/uL (160-400); Red Cell Distribution Width 14.1 % (11.0-16.0); White Blood Count 9.4 X10*3/uL (4.8-10.8)
[2023-04-22 07:51] LABS: Anion Gap 16 (12-20); Blood Urea Nitrogen 15 mg/dL (9-16); Calcium 10.1 mg/dL (8.4-10.2); Carbon Dioxide 19 mmol/L (22-29); Chloride 107 mmol/L (96-108); Creatinine Clr Calc Pharmacy 136.8; Estimated Glomerular Filt Rate > 60; Glucose Random 69 mg/dL (60-115); Lipase 5 U/L (8-78); Potassium 3.1 mmol/L (3.3-5.1); Sodium 139 mmol/L (135-145)
--- NOTE | 2023-04-22 08:08 | PC.NURSE ---
patient notified this nurse that he felt as if his sugar was low, checked patients sugar and it was 34, pt given 2 orange juice, crackers and a peanut butter and jelly. patient sugar is now 69. patient is awake and alert, call brand within reach
[2023-04-22] MEDS: Potassium Chloride Packet 20 MEQ PACKET 40 MEQ PO (08:22)
[2023-04-22] MEDS: Ketorolac Tromethamine 30 MG/ML VIAL IM (08:23)
[2023-04-22 10:47] VITALS: BP 101/66; PULSE 79; RESP 16; TEMP 36.7; O2SAT 98
== END 2023-04-22 12:06 | disposition home or self-care (01) ==
PROVIDERS: Emergency Provider Emergency Medicine
DX: E10.649 Type 1 diabetes mellitus with hypoglycemia without coma (principal); E87.6 Hypokalemia; F17.210 Nicotine dependence, cigarettes, uncomplicated; F12.90 Cannabis use, unspecified, uncomplicated; Z79.4 Long term (current) use of insulin
CPT/HCPCS: 36415; 80048; 82947; 83690; 85025; 96372; 99284; J1885

== ENCOUNTER 2023-04-30 13:41 | Emergency (ER) | payer MEDICAID, SELFPAY ==
[2023-04-30 13:47] VITALS: BP 122/76; PULSE 98; O2SAT 99
--- NOTE | 2023-04-30 13:48 | ED.ABDPAIN ---
HPI - Abdominal Pain General Chief Complaint: General Medical Stated Complaint: BODY PAIN Related Data Home Medications Medication Instructions Recorded Confirmed insulin aspart U-100 100 unit/mL See Rx Instructions .Route .COMPLEX 12/19/22 01/23/23 (3 mL) subcutaneous pen (Novolog FlexPen U-100 Insulin aspart) insulin glargine 100 unit/mL (3 20 unit subcut DAILY 12/19/22 01/23/23 mL) subcutaneous pen (Lantus Solostar U-100 Insulin) pantoprazole 40 mg tablet,delayed 40 mg PO DAILY@0630 12/19/22 01/23/23 release (Protonix) acetaminophen 325 mg tablet 650 mg PO Q6H PRN Pain 01/23/23 01/23/23 gabapentin 300 mg capsule 300 mg PO BID 01/23/23 01/23/23 promethazine 25 mg tablet 25 mg PO TID PRN nausea/vomiting 01/23/23 01/23/23 Previous Rx's Medication Instructions Recorded dicyclomine 20 mg tablet 20 mg PO QID #60 tabs 01/23/23 mviptlzxt-iovpcxvgz-bfzwlerq-scop 1 tab PO BID PRN Nausea, vomiting 01/23/23 16.2 mg-0.1037 mg-0.0194 mg tablet #14 tabs () promethazine 25 mg tablet 25 mg PO TID PRN nausea and 03/11/23 vomiting #20 tabs cyclobenzaprine 10 mg tablet 10 mg PO TID PRN muscle spasm #14 03/16/23 tabs lidocaine 5 % topical patch 1 patch topical DAILY #15 ea 03/16/23 naproxen 500 mg tablet 500 mg PO BID PRN pain #20 tabs 03/16/23 ondansetron 4 mg disintegrating 4 mg PO Q8H PRN nausea and 04/13/23 tablet vomiting #20 tabs cyclobenzaprine 10 mg tablet 10 mg PO BEDTIME PRN muscle spasm 05/04/23 #7 tabs ketorolac 10 mg tablet 10 mg PO TID PRN pain 5 days #15 05/04/23 tabs lidocaine 5 % topical patch 1 patch topical DAILY PRN pain #15 05/04/23 ea Allergies Allergy/AdvReac Type Severity Reaction Status Date / Time diphenhydramine Allergy Anaphylaxis Verified 05/04/23 13:23 [From Benadryl] haloperidol [From Haldol] Allergy Difficulty Verified 05/04/23 13:23 Swallowing PMFSH Past Medical History 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 Social History Social History Household Members: Other Household Members Other:: cousin Housing: House Do you presently have visiting nurse or other home services: No Alcohol intake: never Patient Tobacco Use Status: Current everyday Tobacco user Tobacco use type: Cigarette Cigarette Packs Per Day: 0 Cigarettes Per Day: 0 Years Smoked: 10 Smoked in Last 30 Days: No e-Cigarette/Vaping Use: Never Used Second Hand Smoke Exposure: No Use of substances other than those prescribed or required for medical reasons: No Substance Use Type: Marijuana Advance Directives: No Advance Directives Information Provided: No service: No Current occupational status: employed Physical Exam ED Vital Signs: BMI result Body Mass Index 19.7 Course Course Course Narrative: This is an RME: Additional HPI, ROS, PE not included below will be deferred to primary provider. Patient is a 28-year-old male who presents to the emergency department via EMS Reporting severe abdominal pain radiating to the L flank and axilla, states in the past this has been relieved in the emergency department with IV fluids and Toradol he states that previously the pain has been thought to be attributed to his Gates's esophagus. Additionally he is endorsing right lower dental pain due to an impacted wisdom tooth. Symptoms unrelieved with cyclobenzaprine and Phenergan while at home Plan: Labs, urinalysis Discharge Plan Discharge Clinical Impression: Abdominal pain Patient Disposition: Left W/O Completing Treatment Prescriptions: No Action insulin aspart U-100 [Novolog FlexPen U-100 Insulin] 100 unit/mL (3 mL) insulin pen See Rx Instructions .ROUTE .COMPLEX Rx Instructions: 1 unit of insulin for every 35 units over 135 insulin glargine [Lantus Solostar U-100 Insulin] 100 unit/mL (3 mL) insulin pen 20 unit subcut DAILY pantoprazole [Protonix] 40 mg tablet,delayed release (DR/EC) 40 mg PO DAILY@0630 promethazine 25 mg tablet 25 mg PO TID PRN (Reason: nausea/vomiting) gabapentin 300 mg capsule 300 mg PO BID acetaminophen 325 mg Tablet 650 mg PO Q6H PRN (Reason: Pain) dicyclomine 20 mg tablet 20 mg PO QID Qty: 60 0RF Rx Instructions: Take 30 minutes before eating, 30 minutes before bed gdujbgqci-onvjbf-ipkxvwrd-scop [] 16.2-0.1037 -0.0194 mg tablet 1 tab PO BID PRN (Reason: Nausea, vomiting) Qty: 14 0RF ondansetron 4 mg tablet,disintegrating 4 mg PO Q8H PRN (Reason: nausea and vomiting) Qty: 20 0RF promethazine 25 mg tablet 25 mg PO TID PRN (Reason: nausea and vomiting) Qty: 20 0RF cyclobenzaprine 10 mg tablet 10 mg PO TID PRN (Reason: muscle spasm) Qty: 14 0RF lidocaine 5 % adhesive patch,medicated 1 patch topical DAILY Qty: 15 0RF Rx Instructions: leave on most painful area for up to 12 hrs naproxen 500 mg tablet 500 mg PO BID PRN (Reason: pain) Qty: 20 0RF ketorolac 10 mg tablet 10 mg PO TID PRN (Reason: pain) 5 Days Qty: 15 0RF cyclobenzaprine 10 mg tablet 10 mg PO BEDTIME PRN (Reason: muscle spasm) Qty: 7 0RF lidocaine 5 % adhesive patch,medicated 1 patch topical DAILY PRN (Reason: pain) Qty: 15 0RF Rx Instructions: leave on most painful area for up to 12 hrs Discharge Date/Time: 04/30/23 15:53
[2023-04-30 13:55] VITALS: BP 114/66; PULSE 99; RESP 19; TEMP 36.6; O2SAT 99; BMI 19.7
--- NOTE | 2023-04-30 15:48 | PC.NURSE ---
pt left WR and called EMS
== END 2023-04-30 15:53 | disposition left against medical advice (07) ==
PROVIDERS: Emergency Provider Emergency Medicine
DX: R10.9 Unspecified abdominal pain (principal); M79.10 Myalgia, unspecified site; E10.9 Type 1 diabetes mellitus without complications; Z79.4 Long term (current) use of insulin; Z79.899 Other long term (current) drug therapy
CPT/HCPCS: 99281; 99282

== ENCOUNTER 2023-04-30 15:50 | Emergency (ER) | payer MEDICAID, SELFPAY ==
[2023-04-30 15:54] VITALS: BP 132/91; PULSE 90; O2SAT 100
[2023-04-30 15:55] VITALS: BP 122/76; PULSE 90; RESP 14; TEMP 36.5; O2SAT 98; BMI 19.1
--- NOTE | 2023-04-30 15:58 | ED_ITS ---
HPI - General Adult General Chief complaint: General Medical Stated complaint: PAIN IN UPPER BODY Related Data Home Medications Medication Instructions Recorded Confirmed insulin aspart U-100 100 unit/mL See Rx Instructions .Route .COMPLEX 12/19/22 01/23/23 (3 mL) subcutaneous pen (Novolog FlexPen U-100 Insulin aspart) insulin glargine 100 unit/mL (3 20 unit subcut DAILY 12/19/22 01/23/23 mL) subcutaneous pen (Lantus Solostar U-100 Insulin) pantoprazole 40 mg tablet,delayed 40 mg PO DAILY@0630 12/19/22 01/23/23 release (Protonix) acetaminophen 325 mg tablet 650 mg PO Q6H PRN Pain 01/23/23 01/23/23 gabapentin 300 mg capsule 300 mg PO BID 01/23/23 01/23/23 promethazine 25 mg tablet 25 mg PO TID PRN nausea/vomiting 01/23/23 01/23/23 Previous Rx's Medication Instructions Recorded dicyclomine 20 mg tablet 20 mg PO QID #60 tabs 01/23/23 wzncvbndj-fzjfdqyyb-vsqyptln-scop 1 tab PO BID PRN Nausea, vomiting 01/23/23 16.2 mg-0.1037 mg-0.0194 mg tablet #14 tabs () promethazine 25 mg tablet 25 mg PO TID PRN nausea and 03/11/23 vomiting #20 tabs cyclobenzaprine 10 mg tablet 10 mg PO TID PRN muscle spasm #14 03/16/23 tabs lidocaine 5 % topical patch 1 patch topical DAILY #15 ea 03/16/23 naproxen 500 mg tablet 500 mg PO BID PRN pain #20 tabs 03/16/23 ondansetron 4 mg disintegrating 4 mg PO Q8H PRN nausea and 04/13/23 tablet vomiting #20 tabs cyclobenzaprine 10 mg tablet 10 mg PO BEDTIME PRN muscle spasm 05/04/23 #7 tabs ketorolac 10 mg tablet 10 mg PO TID PRN pain 5 days #15 05/04/23 tabs lidocaine 5 % topical patch 1 patch topical DAILY PRN pain #15 05/04/23 ea ondansetron 4 mg disintegrating 4 mg PO Q8H PRN nausea and 05/18/23 tablet vomiting #20 tabs cyclobenzaprine 10 mg tablet 10 mg PO BEDTIME PRN muscle spasm 05/30/23 #7 tabs lidocaine 5 % topical patch 1 patch topical DAILY PRN pain #15 05/30/23 ea Allergies Allergy/AdvReac Type Severity Reaction Status Date / Time diphenhydramine Allergy Anaphylaxis Verified 05/29/23 16:09 [From Benadryl] haloperidol [From Haldol] Allergy Difficulty Verified 05/29/23 16:09 Swallowing PMFSH Past Medical History Medical History Dental infection Abdominal pain Colitis DKA (diabetic ketoacidosis) Hyperglycemia 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 type 1 Social History Social History Household Members: Other Household Members Other:: cousin Housing: House Do you presently have visiting nurse or other home services: No Alcohol intake: former Patient Tobacco Use Status: Current everyday Tobacco user Tobacco use type: Cigarette Cigarette Packs Per Day: 0 Cigarettes Per Day: 0 Years Smoked: 10 e-Cigarette/Vaping Use: Never Used Second Hand Smoke Exposure: No Substance Use Type: Marijuana Advance Directives: No Advance Directives Information Provided: Yes service: No Current occupational status: employed Physical Exam ED Vital Signs: BMI result Body Mass Index 19.1 Course Course Course Narrative: This is an RME: Additional HPI, ROS, PE not included below will be deferred to primary provider. Patient is a 28-year-old male who presents to the emergency department via EMS Reporting severe abdominal pain radiating to the L flank and axilla, states in the past this has been relieved in the emergency department with IV fluids and Toradol he states that previously the pain has been thought to be attributed to his Gates's esophagus. Additionally he is endorsing right lower dental pain due to an impacted wisdom tooth. Symptoms unrelieved with cyclobenzaprine and Phenergan while at home. PT eloped after initial ED presentation today, previously seen by this provider. He went to [employer] so go to work, after a little while he felt he needed to return, so he called EMS again. Plan: Labs, urinalysis Medical Decision Making Lab Data 04/30/23 16:45 04/30/23 16:45 Labs: Lab Results 04/30/23 04/30/23 Range/Units 16:45 16:52 WBC 7.7 (4.8-10.8) X10*3/uL RBC 5.32 (4.60-5.80) X10*6/uL Hgb 13.6 L (14.0-18.0) g/dl Hct 41.6 L (42.0-52.0) % MCV 78.2 L (80.0-98.0) fL MCH 25.6 L (27.0-33.0) pg MCHC 32.7 (31.0-36.0) g/dl RDW 14.2 (11.0-16.0) % Plt Count 276 (160-400) X10*3/uL MPV 10.6 (9.4-12.4) fL Immature Gran % (Auto) 0.3 (0.0-0.4) % Neut % (Auto) 72.7 (45-73) % Lymph % (Auto) 20.9 (20-40) % [place] % (Auto) 3.9 (2-11) % Eos % (Auto) 1.4 (0-4) % Baso % (Auto) 0.8 (0-2) % Lymph # (Auto) 1.6 (1.2-4.9) X10*3/uL [place] # (Auto) 0.3 (0.1-1.2) X10*3/uL Eos # (Auto) 0.1 (0.0-0.4) X10*3/uL Baso # (Auto) 0.1 (0.0-0.2) X10*3/uL Abs Immat Gran (auto) 0.02 (0.00-0.03) X10*3/uL Absolute Neuts (auto) 5.6 (2.0-8.3) x10*3/uL Absolute Nucleated RBC 0.000 (0.0-0.012) X10*3/uL Nucleated RBC % (auto) 0.0 (0.0-0.2) /100WBC VBG pH 7.42 (7.32-7.43) VBG pCO2 38 mmHg VBG pO2 46 mmHg VBG HCO3 25 (22-26) mmol/L VBG O2 Saturation 77.0 % VBG Base Excess 1.4 mmol/L Sodium 135 (135-145) mmol/L Potassium 5.2 H D (3.3-5.1) mmol/L Chloride 102 (96-108) mmol/L Carbon Dioxide 22 (22-29) mmol/L Anion Gap 16 (12-20) BUN 14 (9-16) mg/dL Creatinine 0.85 (0.5-1.4) mg/dL Estim Creat Clear Calc 96.3 Estimated GFR > 60 Random Glucose 276 H (60-115) mg/dL Calcium 9.8 (8.4-10.2) mg/dL Magnesium 1.9 (1.6-2.6) mg/dL Total Bilirubin 0.7 (0.0-1.0) mg/dL AST 19 (5-37) U/L ALT 12 (0-40) U/L Alkaline Phosphatase 70 (39-117) U/L Total Protein 7.8 (6.5-8.0) g/dL Albumin 4.5 (3.5-5.0) g/dL Lipase 4 L (8-78) U/L Beta-Hydroxybutyrate 1.08 H (0.02-0.27) mmol/L Discharge Plan Discharge Clinical Impression: Abdominal pain Patient Disposition: Left W/O Completing Treatment Prescriptions: No Action insulin aspart U-100 [Novolog FlexPen U-100 Insulin] 100 unit/mL (3 mL) insulin pen See Rx Instructions .ROUTE .COMPLEX Rx Instructions: 1 unit of insulin for every 35 units over 135 insulin glargine [Lantus Solostar U-100 Insulin] 100 unit/mL (3 mL) insulin pen 20 unit subcut DAILY pantoprazole [Protonix] 40 mg tablet,delayed release (DR/EC) 40 mg PO DAILY@0630 promethazine 25 mg tablet 25 mg PO TID PRN (Reason: nausea/vomiting) gabapentin 300 mg capsule 300 mg PO BID acetaminophen 325 mg Tablet 650 mg PO Q6H PRN (Reason: Pain) dicyclomine 20 mg tablet 20 mg PO QID Qty: 60 0RF Rx Instructions: Take 30 minutes before eating, 30 minutes before bed lyrawouhd-yrljta-pacyzgzo-scop [] 16.2-0.1037 -0.0194 mg tablet 1 tab PO BID PRN (Reason: Nausea, vomiting) Qty: 14 0RF ondansetron 4 mg tablet,disintegrating 4 mg PO Q8H PRN (Reason: nausea and vomiting) Qty: 20 0RF ondansetron 4 mg tablet,disintegrating 4 mg PO Q8H PRN (Reason: nausea and vomiting) Qty: 20 0RF cyclobenzaprine 10 mg tablet 10 mg PO BEDTIME PRN (Reason: muscle spasm) Qty: 7 0RF lidocaine 5 % adhesive patch,medicated 1 patch topical DAILY PRN (Reason: pain) Qty: 15 0RF Rx Instructions: leave on most painful area for up to 12 hrs promethazine 25 mg tablet 25 mg PO TID PRN (Reason: nausea and vomiting) Qty: 20 0RF cyclobenzaprine 10 mg tablet 10 mg PO TID PRN (Reason: muscle spasm) Qty: 14 0RF lidocaine 5 % adhesive patch,medicated 1 patch topical DAILY Qty: 15 0RF Rx Instructions: leave on most painful area for up to 12 hrs naproxen 500 mg tablet 500 mg PO BID PRN (Reason: pain) Qty: 20 0RF ketorolac 10 mg tablet 10 mg PO TID PRN (Reason: pain) 5 Days Qty: 15 0RF cyclobenzaprine 10 mg tablet 10 mg PO BEDTIME PRN (Reason: muscle spasm) Qty: 7 0RF lidocaine 5 % adhesive patch,medicated 1 patch topical DAILY PRN (Reason: pain) Qty: 15 0RF Rx Instructions: leave on most painful area for up to 12 hrs Discharge Date/Time: 04/30/23 18:01
[2023-04-30 16:53] LABS: MANUAL DIFF FLAG NO
[2023-04-30 16:58] LABS: VBG Base Excess 1.4 mmol/L; VBG HCO3 25 mmol/L (22-26); VBG pCO2 38 mmHg; VBG pH 7.42 (7.32-7.43); VBG pO2 46 mmHg
[2023-04-30 17:01] LABS: Venous Blood Gas Refer to POC result
[2023-04-30 17:08] LABS: Basophils Absolute Auto 0.1 X10*3/uL (0.0-0.2); Basophils Percent Auto 0.8 % (0-2); Eosinophils Absolute Auto 0.1 X10*3/uL (0.0-0.4); Eosinophils Percent Auto 1.4 % (0-4); Hematocrit 41.6 % (42.0-52.0); Hemoglobin 13.6 g/dl (14.0-18.0); Imm Gran Abs Auto 0.02 X10*3/uL (0.00-0.03); Imm Gran Pct Auto 0.3 % (0.0-0.4); Lymphocytes Absolute Auto 1.6 X10*3/uL (1.2-4.9); Lymphocytes Percent Auto 20.9 % (20-40); Mean Corpuscular HGB Conc 32.7 g/dl (31.0-36.0); Mean Corpuscular Hemoglobin 25.6 pg (27.0-33.0); Mean Corpuscular Volume 78.2 fL (80.0-98.0); Mean Platelet Volume 10.6 fL (9.4-12.4); Monocytes Absolute Auto 0.3 X10*3/uL (0.1-1.2); Monocytes Percent Auto 3.9 % (2-11); Neutrophils Absolute Auto 5.6 x10*3/uL (2.0-8.3); Neutrophils Percent Auto 72.7 % (45-73); Platelet Count 276 X10*3/uL (160-400); Red Blood Count 5.32 X10*6/uL (4.60-5.80); Red Cell Distribution Width 14.2 % (11.0-16.0); White Blood Count 7.7 X10*3/uL (4.8-10.8)
[2023-04-30 17:23] LABS: Alanine Aminotransferase 12 U/L (0-40); Albumin Level 4.5 g/dL (3.5-5.0); Alkaline Phosphatase 70 U/L (39-117); Anion Gap 16 (12-20); Aspartate Amino Transferase 19 U/L (5-37); Bilirubin Total 0.7 mg/dL (0.0-1.0); Blood Urea Nitrogen 14 mg/dL (9-16); Calcium 9.8 mg/dL (8.4-10.2); Carbon Dioxide 22 mmol/L (22-29); Chloride 102 mmol/L (96-108); Creatinine Clr Calc Pharmacy 96.3; Estimated Glomerular Filt Rate > 60; Glucose Random 276 mg/dL (60-115); Lipase 4 U/L (8-78); Magnesium 1.9 mg/dL (1.6-2.6); Potassium 5.2 mmol/L (3.3-5.1); Sodium 135 mmol/L (135-145); Total Protein 7.8 g/dL (6.5-8.0)
[2023-04-30 17:42] LABS: Beta-Hydroxybutyrate 1.08 mmol/L (0.02-0.27)
== END 2023-04-30 18:01 | disposition left against medical advice (07) ==
PROVIDERS: Nurse Practitioner Family; Emergency Provider Emergency Medicine
DX: R10.32 Left lower quadrant pain (principal); M79.622 Pain in left upper arm; E10.9 Type 1 diabetes mellitus without complications; F17.210 Nicotine dependence, cigarettes, uncomplicated; Z79.899 Other long term (current) drug therapy; Z71.6 Tobacco abuse counseling; Z79.4 Long term (current) use of insulin
CPT/HCPCS: 36415; 80053; 82010; 82803; 83690; 83735; 85025; 99281; 99283

== ENCOUNTER 2023-05-04 00:56 | Emergency (ER) | payer MEDICAID, SELFPAY ==
--- NOTE | ~2023-05-04 | XR_ITS ---
EXAMINATION: XR CHEST CLINICAL INFORMATION: Pain COMPARISON: 04/13/2023. TECHNIQUE: Frontal view of the chest was obtained. FINDINGS: The cardiomediastinal silhouette is normal. There is no focal lung consolidation or pleural effusion. The bony structures and soft tissues are unremarkable. XR/XR chest 1V IMPRESSION: No active cardiopulmonary disease.
[2023-05-04 01:06] VITALS: BP 132/90; PULSE 110; RESP 24; TEMP 36.9; O2SAT 97
[2023-05-04 01:11] LABS: Glucose, Whole Blood 179 mg/dL (60-115)
--- NOTE | 2023-05-04 01:16 | ED_ITS ---
HPI - General Adult General Chief complaint: General Medical Stated complaint: muscle spasms Time Seen by Provider: 05/04/23 01:04 Source: patient and old records reviewed Mode of arrival: EMS Limitations: no limitations History of Present Illness HPI narrative: 28 yo male with hx of IDDM, DKA, gastroparesis visits for repeat pain complaints such as chest pain and arm pain now notes 2 days of neck and shoulder blade thoracic back pain after releasing anger and punching a bag . He notes it hurts now to move his arm and neck. He has no numbness or weakness. He states his blood sugar was in the 100s. He states he cannot take the pain anymore and he is so anxious. The patient has no therapist. MD complaint: muscle spasms Onset (ago): day(s) (2) Location: neck, back, left, right and upper extremity Severity: severe Quality: other (spasms) Pain Consistency: constant Relieving factors: none Exacerbating factors: movement Associated symptoms: other (anxiety) Treatments prior to arrival: none Related Data Home Medications Medication Instructions Recorded Confirmed insulin aspart U-100 100 unit/mL See Rx Instructions .Route .COMPLEX 12/19/22 01/23/23 (3 mL) subcutaneous pen (Novolog FlexPen U-100 Insulin aspart) insulin glargine 100 unit/mL (3 20 unit subcut DAILY 12/19/22 01/23/23 mL) subcutaneous pen (Lantus Solostar U-100 Insulin) pantoprazole 40 mg tablet,delayed 40 mg PO DAILY@0630 12/19/22 01/23/23 release (Protonix) acetaminophen 325 mg tablet 650 mg PO Q6H PRN Pain 01/23/23 01/23/23 gabapentin 300 mg capsule 300 mg PO BID 01/23/23 01/23/23 promethazine 25 mg tablet 25 mg PO TID PRN nausea/vomiting 01/23/23 01/23/23 Previous Rx's Medication Instructions Recorded dicyclomine 20 mg tablet 20 mg PO QID #60 tabs 01/23/23 yzwzfgycb-owbtqfsaq-uwbmcwhl-scop 1 tab PO BID PRN Nausea, vomiting 01/23/23 16.2 mg-0.1037 mg-0.0194 mg tablet #14 tabs () promethazine 25 mg tablet 25 mg PO TID PRN nausea and 03/11/23 vomiting #20 tabs cyclobenzaprine 10 mg tablet 10 mg PO TID PRN muscle spasm #14 03/16/23 tabs lidocaine 5 % topical patch 1 patch topical DAILY #15 ea 03/16/23 naproxen 500 mg tablet 500 mg PO BID PRN pain #20 tabs 03/16/23 ondansetron 4 mg disintegrating 4 mg PO Q8H PRN nausea and 04/13/23 tablet vomiting #20 tabs Allergies Allergy/AdvReac Type Severity Reaction Status Date / Time diphenhydramine Allergy Anaphylaxis Verified 04/30/23 13:55 [From Benadryl] haloperidol [From Haldol] Allergy Difficulty Verified 04/30/23 13:55 Swallowing Review of Systems 2 Review of Systems: Constitutional : No Fever, No Chills Cardiovascular : No Chest Pain, No SOB Respiratory : No Cough, No Dyspnea Gastrointestinal : No Nausea, No Vomiting, No Diarrhea, No abdominal Pain Genitourinary : No Dysuria, No Hematuria Musculoskeletal : positive joint pain, pos Myalgias, No Joint Swelling Skin : No Skin lacerations, No rash Neuro : No Weakness, No Numbness, No Loss of Consciousness, No Dizziness, No Headache Psych : pos Anxiety/Panic, No Depression Heme/Lymph: no easy bruising, no Lymphadenopathy Endocrine : No Polyuria, No Polydipsia All other systems reviewed and are negative [facility] Past Medical History Attestation statement: The following information was validated with the patient. 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 Social History Social History Household Members: Other Household Members Other:: cousin Housing: House Do you presently have visiting nurse or other home services: No Alcohol intake: former Patient Tobacco Use Status: Current everyday Tobacco user Tobacco use type: Cigarette Cigarette Packs Per Day: 0 Cigarettes Per Day: 0 Years Smoked: 10 Smoked in Last 30 Days: Yes e-Cigarette/Vaping Use: Never Used Second Hand Smoke Exposure: No Use of substances other than those prescribed or required for medical reasons: Yes Substance Use Type: Marijuana Advance Directives: No Advance Directives Information Provided: No service: No Current occupational status: employed Physical Exam ED Vital Signs: Vital Signs - 24 hr 05/04/23 01:06 05/04/23 02:48 05/04/23 03:23 Temperature 98.4 F 98.5 F Pulse Rate 110 H 82 83 Respiratory Rate 24 H 14 14 Blood Pressure 132/90 H 104/68 109/67 Pulse Oximetry 97 97 99 Oxygen Delivery Method Room Air Room Air Room Air BMI result Body Mass Index 19.8 Appearance: Alert. Oriented X3. crying yelling out mild acute distress. hyperventilating Eyes: Pupils equal, round and reactive to light. ENT: Pharynx mild dry MM Neck: ttp bilateral trapezius muscles CVS: Normal heart rate and rhythm. Pulses normal. Respiratory: No respiratory distress - hyperventilating. Breath sounds normal. Back: ttp along upper paraspinal muscles Abdomen: Soft and nontender. Skin: Skin warm and dry. Normal skin color. Normal skin turgor. Extremities: No lower extremity edema. No calf ttp Neuro: Oriented X 3. No motor deficit. No sensory deficit. Course Course Course Narrative: will repeat VBG patient quiet in room now VBG improving - likely hyperventilation Reevaluation(s) Reevaluation #1: tolerating PO, sitting upright feels much better stable for DC Medications Administered Discontinued Medications Generic Name Dose Route Start Last Admin Trade Name Freq PRN Reason Stop Dose Admin Diazepam 5 mg 05/04/23 01:07 05/04/23 02:02 Diazepam 10 Mg/2 Ml Cartridge IVPUSH 05/04/23 01:08 5 mg STAT STA Administration Sodium Chloride 1,000 mls @ 999 mls/hr 05/04/23 01:15 05/04/23 02:11 Ns IV 05/04/23 02:15 999 mls/hr .Q1H1M JELENA Administration Medical Decision Making Medical Decision Making MDM Narrative: 28 yo male with hx of IDDM, DKA, gastroparesis here with c/o spasms of the neck/back after he got mad and punched a punching bag two days ago he is NV intact in UE he is very anxious he has similar odd pain presentation in the past. I do not think this is a PE, dissection. He has reproduceable MSK pain. He did not do a work out this was just a couple of punches in anger. I do not think he has a fracture. At this time labs, IV valium ordered. He has been here for similar issues in the past. Differential Diagnosis Differential Diagnoses: The differential diagnosis associated with the presentation includes lyte abnormality, anxiety, muscle cramps Admission/Observation Consideration of admission/observation: Escalation of care including admission/observation considered observe until symptoms improved Lab Data MDM Lab Attestation statement: I reviewed the patient's lab results. 05/04/23 01:15 05/04/23 01:15 Labs: Lab Results 05/04/23 05/04/23 05/04/23 Range/Units 01:04 01:15 01:19 WBC 8.3 (4.8-10.8) X10*3/uL RBC 5.40 (4.60-5.80) X10*6/uL Hgb 13.9 L (14.0-18.0) g/dl Hct 41.4 L (42.0-52.0) % MCV 76.7 L (80.0-98.0) fL MCH 25.7 L (27.0-33.0) pg MCHC 33.6 (31.0-36.0) g/dl RDW 14.0 (11.0-16.0) % Plt Count TNP MPV 10.7 (9.4-12.4) fL Immature Gran % (Auto) 0.2 (0.0-0.4) % Neut % (Auto) 62.3 (45-73) % Lymph % (Auto) 30.4 (20-40) % [place] % (Auto) 5.0 (2-11) % Eos % (Auto) 1.3 (0-4) % Baso % (Auto) 0.8 (0-2) % Lymph # (Auto) 2.5 (1.2-4.9) X10*3/uL [place] # (Auto) 0.4 (0.1-1.2) X10*3/uL Eos # (Auto) 0.1 (0.0-0.4) X10*3/uL Baso # (Auto) 0.1 (0.0-0.2) X10*3/uL Abs Immat Gran (auto) 0.02 (0.00-0.03) X10*3/uL Absolute Neuts (auto) 5.1 (2.0-8.3) x10*3/uL Absolute Nucleated RBC 0.000 (0.0-0.012) X10*3/uL Nucleated RBC % (auto) 0.0 (0.0-0.2) /100WBC Smear Tech's Comments VERIFIED VBG pH 7.71 H* (7.32-7.43) VBG pCO2 16 mmHg VBG pO2 202 mmHg VBG HCO3 21 L (22-26) mmol/L VBG O2 Saturation 99.0 % VBG Base Excess 4.4 mmol/L Sodium 137 (135-145) mmol/L Potassium 3.9 D (3.3-5.1) mmol/L Chloride 106 (96-108) mmol/L Carbon Dioxide 18 L (22-29) mmol/L Anion Gap 17 (12-20) BUN 18 H (9-16) mg/dL Creatinine 0.86 (0.5-1.4) mg/dL Estim Creat Clear Calc TNP Estimated GFR > 60 POC Glucose 179 H (60-115) mg/dL Random Glucose 160 H (60-115) mg/dL Calcium 10.5 H D (8.4-10.2) mg/dL Total Bilirubin 0.6 (0.0-1.0) mg/dL AST 14 (5-37) U/L ALT 13 (0-40) U/L Alkaline Phosphatase 71 (39-117) U/L Total Protein 7.5 (6.5-8.0) g/dL Albumin 4.5 (3.5-5.0) g/dL Beta-Hydroxybutyrate 0.26 (0.02-0.27) mmol/L 05/04/23 Range/Units 02:22 WBC (4.8-10.8) X10*3/uL RBC (4.60-5.80) X10*6/uL Hgb (14.0-18.0) g/dl Hct (42.0-52.0) % MCV (80.0-98.0) fL MCH (27.0-33.0) pg MCHC (31.0-36.0) g/dl RDW (11.0-16.0) % Plt Count MPV (9.4-12.4) fL Immature Gran % (Auto) (0.0-0.4) % Neut % (Auto) (45-73) % Lymph % (Auto) (20-40) % [place] % (Auto) (2-11) % Eos % (Auto) (0-4) % Baso % (Auto) (0-2) % Lymph # (Auto) (1.2-4.9) X10*3/uL [place] # (Auto) (0.1-1.2) X10*3/uL Eos # (Auto) (0.0-0.4) X10*3/uL Baso # (Auto) (0.0-0.2) X10*3/uL Abs Immat Gran (auto) (0.00-0.03) X10*3/uL Absolute Neuts (auto) (2.0-8.3) x10*3/uL Absolute Nucleated RBC (0.0-0.012) X10*3/uL Nucleated RBC % (auto) (0.0-0.2) /100WBC Smear Tech's Comments VBG pH 7.63 H* (7.32-7.43) VBG pCO2 20 mmHg VBG pO2 109 mmHg VBG HCO3 21 L (22-26) mmol/L VBG O2 Saturation 100.0 % VBG Base Excess 3.2 mmol/L Sodium (135-145) mmol/L Potassium (3.3-5.1) mmol/L Chloride (96-108) mmol/L Carbon Dioxide (22-29) mmol/L Anion Gap (12-20) BUN (9-16) mg/dL Creatinine (0.5-1.4) mg/dL Estim Creat Clear Calc Estimated GFR POC Glucose (60-115) mg/dL Random Glucose (60-115) mg/dL Calcium (8.4-10.2) mg/dL Total Bilirubin (0.0-1.0) mg/dL AST (5-37) U/L ALT (0-40) U/L Alkaline Phosphatase (39-117) U/L Total Protein (6.5-8.0) g/dL Albumin (3.5-5.0) g/dL Beta-Hydroxybutyrate (0.02-0.27) mmol/L Independent Interpretation I performed an independent interpretation of an: EKG and Plain X-Ray Interpretation: Rate: 88 Rhythm: NSR [place]: left Normal P waves. ERICA slightly shorter Normal QRS complex. ST T wave : inverted t wave III, no DES, qTC: normal prior studies: no acute ischemia The study has been interpreted contemporaneously by me. . Radiology Impression Discussion of test interpretation with radiology: I have reviewed the radiologist's reading. Independent Historian Clinical information obtained from an independent historian. History obtained from or confirmed by: EMS External Record Review External record reviewed: Inpatient record Discharge Plan Discharge Clinical Impression: Muscle spasm Patient Disposition: Home, Self-Care Instructions: Muscle Spasm (ED) Additional Instructions: you need to deal with your stress better than to cause physical pain. please call [facility] [phone] to get therapist. return for fevers, numbness, weakness, worsening pain, shortness of breath or any other concerns. take your medications as prescribed. Prescriptions: No Action insulin aspart U-100 [Novolog FlexPen U-100 Insulin] 100 unit/mL (3 mL) insulin pen See Rx Instructions .ROUTE .COMPLEX Rx Instructions: 1 unit of insulin for every 35 units over 135 insulin glargine [Lantus Solostar U-100 Insulin] 100 unit/mL (3 mL) insulin pen 20 unit subcut DAILY pantoprazole [Protonix] 40 mg tablet,delayed release (DR/EC) 40 mg PO DAILY@0630 promethazine 25 mg tablet 25 mg PO TID PRN (Reason: nausea/vomiting) gabapentin 300 mg capsule 300 mg PO BID acetaminophen 325 mg Tablet 650 mg PO Q6H PRN (Reason: Pain) dicyclomine 20 mg tablet 20 mg PO QID Qty: 60 0RF Rx Instructions: Take 30 minutes before eating, 30 minutes before bed tewoyfzud-rseeng-uwpoeedh-scop [] 16.2-0.1037 -0.0194 mg tablet 1 tab PO BID PRN (Reason: Nausea, vomiting) Qty: 14 0RF ondansetron 4 mg tablet,disintegrating 4 mg PO Q8H PRN (Reason: nausea and vomiting) Qty: 20 0RF promethazine 25 mg tablet 25 mg PO TID PRN (Reason: nausea and vomiting) Qty: 20 0RF cyclobenzaprine 10 mg tablet 10 mg PO TID PRN (Reason: muscle spasm) Qty: 14 0RF lidocaine 5 % adhesive patch,medicated 1 patch topical DAILY Qty: 15 0RF Rx Instructions: leave on most painful area for up to 12 hrs naproxen 500 mg tablet 500 mg PO BID PRN (Reason: pain) Qty: 20 0RF
--- NOTE | 2023-05-04 01:22 | ECG_ITS ---
Test Reason : chest pain Blood Pressure : / mmHG Vent. Rate : 089 BPM Atrial Rate : 089 BPM P-R Int : 088 ms QRS Dur : 094 ms QT Int : 340 ms P-R-T Axes : 051 -57 037 degrees QTc Int : 413 ms Sinus rhythm with short NV Incomplete right bundle branch block Left anterior fascicular block Abnormal ECG When compared with ECG of 13-APR-2023 09:42, Incomplete right bundle branch block is now Present Heart rate has decreased Referred By: Payton Wang Electronically Signed By:FERNANDEZ GRAJEDA
[2023-05-04 01:23] LABS: Venous Blood Gas Refer to POC result
[2023-05-04 01:24] LABS: Basophils Absolute Auto 0.1 X10*3/uL (0.0-0.2); Basophils Percent Auto 0.8 % (0-2); Eosinophils Absolute Auto 0.1 X10*3/uL (0.0-0.4); Eosinophils Percent Auto 1.3 % (0-4); Hematocrit 41.4 % (42.0-52.0); Hemoglobin 13.9 g/dl (14.0-18.0); Imm Gran Abs Auto 0.02 X10*3/uL (0.00-0.03); Imm Gran Pct Auto 0.2 % (0.0-0.4); Lymphocytes Absolute Auto 2.5 X10*3/uL (1.2-4.9); Lymphocytes Percent Auto 30.4 % (20-40); MANUAL DIFF FLAG SCAN; Mean Corpuscular HGB Conc 33.6 g/dl (31.0-36.0); Mean Corpuscular Hemoglobin 25.7 pg (27.0-33.0); Mean Corpuscular Volume 76.7 fL (80.0-98.0); Mean Platelet Volume 10.7 fL (9.4-12.4); Monocytes Absolute Auto 0.4 X10*3/uL (0.1-1.2); Neutrophils Absolute Auto 5.1 x10*3/uL (2.0-8.3); Neutrophils Percent Auto 62.3 % (45-73); PLT CLUMP 1; SCAN SMEAR FLAG 1
[2023-05-04 01:27] LABS: VBG Base Excess 4.4 mmol/L; VBG HCO3 21 mmol/L (22-26); VBG pCO2 16 mmHg; VBG pH 7.71 (7.32-7.43); VBG pO2 202 mmHg
[2023-05-04 01:37] LABS: White Blood Count 8.3 X10*3/uL (4.8-10.8)
[2023-05-04 01:44] LABS: Alanine Aminotransferase 13 U/L (0-40); Albumin Level 4.5 g/dL (3.5-5.0); Alkaline Phosphatase 71 U/L (39-117); Anion Gap 17 (12-20); Aspartate Amino Transferase 14 U/L (5-37); Beta-Hydroxybutyrate 0.26 mmol/L (0.02-0.27); Bilirubin Total 0.6 mg/dL (0.0-1.0); Blood Urea Nitrogen 18 mg/dL (9-16); Calcium 10.5 mg/dL (8.4-10.2); Carbon Dioxide 18 mmol/L (22-29); Chloride 106 mmol/L (96-108); Estimated Glomerular Filt Rate > 60; Glucose Random 160 mg/dL (60-115); Potassium 3.9 mmol/L (3.3-5.1); Sodium 137 mmol/L (135-145); Total Protein 7.5 g/dL (6.5-8.0)
--- NOTE | 2023-05-04 01:45 | MHC.EDTECH ---
EKG completed and handed to provider. Pt changed over to hospital gown , and placed on hospital monitor.
[2023-05-04 01:52] LABS: SLIDE REVIEW VERIFIED
[2023-05-04] MEDS: diazePAM 10 MG/2 ML CARTRIDGE 5 MG IVPUSH (02:02)
[2023-05-04] MEDS: 0.9 % Sodium Chloride 1,000 ML 999 ML IV (02:11)
[2023-05-04 02:24] LABS: Venous Blood Gas Refer to POC result
[2023-05-04 02:35] LABS: VBG Base Excess 3.2 mmol/L; VBG HCO3 21 mmol/L (22-26); VBG pCO2 20 mmHg; VBG pH 7.63 (7.32-7.43); VBG pO2 109 mmHg
[2023-05-04 02:48] VITALS: BP 104/68; BP 120/70; PULSE 105; PULSE 82; RESP 14; TEMP 36.9; O2SAT 97; O2SAT 99; BMI 19.8
[2023-05-04 03:23] VITALS: BP 109/67; PULSE 83; RESP 14; O2SAT 99
== END 2023-05-04 04:42 | disposition home or self-care (01) ==
PROVIDERS: Student in an Organized Health Care Education/Training Program; Emergency Provider Emergency Medicine
DX: M62.830 Muscle spasm of back (principal); E11.9 Type 2 diabetes mellitus without complications; F17.210 Nicotine dependence, cigarettes, uncomplicated; F12.90 Cannabis use, unspecified, uncomplicated; Z79.4 Long term (current) use of insulin; Z79.899 Other long term (current) drug therapy
CPT/HCPCS: 36415; 71045; 80053; 82010; 82803; 82947; 85025; 93005; 96374; 99284; J3360

== ENCOUNTER 2023-05-04 13:00 | Emergency (ER) | payer MEDICAID, SELFPAY ==
--- NOTE | ~2023-05-04 | XR_ITS ---
EXAMINATION: XR RIBS, LEFT CLINICAL INFORMATION: Left-sided upper rib pain COMPARISON: 05/04/2023 chest x-ray TECHNIQUE: 3 views of the left ribs were obtained. FINDINGS: Lungs are clear. No consolidation, pneumothorax, or pleural effusion. The cardiomediastinal silhouette and pulmonary vasculature are normal. Osseous structures are unremarkable. Ribs are intact. No fractures are identified. XR/XR ribs LT min 3V w CXR1V IMPRESSION: Unremarkable examination.
--- NOTE | 2023-05-04 13:09 | ED.GENADULT ---
HPI - General Adult General Chief complaint: Back Pain/Injury Stated complaint: BACK PAIN,SEEN FOR SAME RECENTLY PER EMS Time Seen by Provider: 05/04/23 13:07 Source: patient and EMS Mode of arrival: EMS Limitations: no limitations History of Present Illness HPI narrative: 28 year old male hx of IDDM, DKA, gastroparesis is here w/ complains of left-sided thoracic back pain/scapula pain, and neck pain that started earlier this morning. Patient reports severe pain worse with palpation and better at rest and also worse with movement. He reports pain is worse with deep breathing. Patient tells me he is too uncomfortable at this time to elaborate on other things. He reports pain is severe greater than 10/10 pain. He denies blunt trauma to the area. He denies drugs, alcohol. Patient screaming in pain on arrival Related Data Home Medications Medication Instructions Recorded Confirmed insulin aspart U-100 100 unit/mL See Rx Instructions .Route .COMPLEX 12/19/22 01/23/23 (3 mL) subcutaneous pen (Novolog FlexPen U-100 Insulin aspart) insulin glargine 100 unit/mL (3 20 unit subcut DAILY 12/19/22 01/23/23 mL) subcutaneous pen (Lantus Solostar U-100 Insulin) pantoprazole 40 mg tablet,delayed 40 mg PO DAILY@0630 12/19/22 01/23/23 release (Protonix) acetaminophen 325 mg tablet 650 mg PO Q6H PRN Pain 01/23/23 01/23/23 gabapentin 300 mg capsule 300 mg PO BID 01/23/23 01/23/23 promethazine 25 mg tablet 25 mg PO TID PRN nausea/vomiting 01/23/23 01/23/23 Previous Rx's Medication Instructions Recorded dicyclomine 20 mg tablet 20 mg PO QID #60 tabs 01/23/23 eypyszpxh-dimxbjibt-rpqykylp-scop 1 tab PO BID PRN Nausea, vomiting 01/23/23 16.2 mg-0.1037 mg-0.0194 mg tablet #14 tabs () promethazine 25 mg tablet 25 mg PO TID PRN nausea and 03/11/23 vomiting #20 tabs cyclobenzaprine 10 mg tablet 10 mg PO TID PRN muscle spasm #14 03/16/23 tabs lidocaine 5 % topical patch 1 patch topical DAILY #15 ea 03/16/23 naproxen 500 mg tablet 500 mg PO BID PRN pain #20 tabs 03/16/23 ondansetron 4 mg disintegrating 4 mg PO Q8H PRN nausea and 04/13/23 tablet vomiting #20 tabs cyclobenzaprine 10 mg tablet 10 mg PO BEDTIME PRN muscle spasm 05/04/23 #7 tabs ketorolac 10 mg tablet 10 mg PO TID PRN pain 5 days #15 05/04/23 tabs lidocaine 5 % topical patch 1 patch topical DAILY PRN pain #15 05/04/23 ea Allergies Allergy/AdvReac Type Severity Reaction Status Date / Time diphenhydramine Allergy Anaphylaxis Verified 05/04/23 13:23 [From Benadryl] haloperidol [From Haldol] Allergy Difficulty Verified 05/04/23 13:23 Swallowing Review of Systems Review of Systems: Constitutional : No Weight loss, No Fever, No Chills, ENT/Mouth : No Hearing loss, No Ear Pain, No Nasal Congestion, No Sinus Pain, No Hoarseness, No sore throat, No Rhinorrhea, No Swallowing Difficulty Cardiovascular : No Chest Pain, No SOB Respiratory : No Cough, No Dyspnea Gastrointestinal : No Nausea, No Vomiting, No Diarrhea, No abdominal Pain, No Hematochezia, No Melena Genitourinary : No Dysuria, No Urinary Frequency, No Hematuria, No Urinary Incontinence, Musculoskeletal : positive back pain, + left sided scapula pain Skin : No Skin Lesions, No rash Neuro : No Weakness, No Numbness, No Paresthesias, no loss of bowel or bladder incontinence, no saddle anesthesia Yes all other systems are reviewed and are negative FORMERLY [facility], [facility] Past Medical History Attestation statement: The following information was validated with the patient. 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 Social History Social History Household Members: Other Household Members Other:: cousin Housing: House Do you presently have visiting nurse or other home services: No Alcohol intake: former Patient Tobacco Use Status: Current everyday Tobacco user Tobacco use type: Cigarette Cigarette Packs Per Day: 0 Cigarettes Per Day: 0 Years Smoked: 10 e-Cigarette/Vaping Use: Never Used Second Hand Smoke Exposure: No Substance Use Type: Marijuana Advance Directives: No Advance Directives Information Provided: No service: No Current occupational status: employed Physical Exam ED Vital Signs: Vital Signs - 24 hr 05/04/23 13:17 Temperature 99.0 F Pulse Rate 93 Respiratory Rate 18 Blood Pressure 111/69 Pulse Oximetry 100 Oxygen Delivery Method Room Air BMI result Body Mass Index 20.3 vss Appearance: Alert.? Oriented X3.? No acute distress.? Head: Normocephalic, atraumatic, no step-offs or deformities Eyes: Pupils equal, round and reactive to light.? Neck: Normal inspection.? Neck supple.? CVS: Normal heart rate and rhythm.? Pulses normal.? Respiratory: No respiratory distress.? Breath sounds normal.? Abdomen: Soft and nontender.? Skin: Skin warm and dry.? Normal skin color.? Normal skin turgor.? Extremities: No lower extremity edema.? No calf ttp. 5/5 strength to bilateral upper and lower extremities Back: No midline tenderness, no C-spine tenderness, full range of motion, no CVA tenderness bilaterally + left sided TTP to scapula and left thoracic paraspinous muscles. No midline tendernss. Normal sensation to b/l UE distally 2+ radial pulses equal and b/l. No wrist drop Neuro: Oriented X 3.? No motor deficit.? No sensory deficit. CN 2-12 intact . No saddle paresthesias. 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 No acute findings. Chemistry with no acute findings requiring intervention, BUN slightly elevated likely secondary to poor p.o. intake/dehydration. Lactic acid within normal limits, troponin negative, EKG nonischemic unlikely ACS. Dimer & perc negative unlikely PE. Total creatinine kinase 92 no signs of rhabdo, CRP within normal limits. No anion gap, normal K normal glucose unlikely DKA. Patient feeling better. X-ray of ribs unremarkable. At this time patient to be discharged home with Toradol, cyclobenzaprine and Lidoderm patches. Educated patient on diagnosis and treatment plan, answered all question, patient verbalizes understanding. At this time patient will be discharged home, advised to return with new or worsening symptoms. Educated on worrisome signs and symptoms and when to return. At this time I feel comfortable discharge home. Time: 14:52 Reevaluation #2: At time of discharge patient is sleeping in the hallway no acute distress Medications Administered Discontinued Medications Generic Name Dose Route Start Last Admin Trade Name Wilfredo PRN Reason Stop Dose Admin Cyclobenzaprine HCl 10 mg 05/04/23 13:10 05/04/23 13:27 Cyclobenzaprine Hcl 10 Mg Tablet PO 05/04/23 13:11 10 mg ONCE ONE Administration Diazepam 2 mg 05/04/23 13:23 05/04/23 13:28 Diazepam 2 Mg Tablet PO 05/04/23 13:24 2 mg ONCE ONE Administration Ketorolac Tromethamine 30 mg 05/04/23 13:10 05/04/23 13:26 Ketorolac Tromethamine 15 Mg/Ml Vial IM 05/04/23 13:11 30 mg ONCE ONE Administration Lidocaine 1 patch 05/04/23 13:10 05/04/23 13:27 Lidocaine 4 % Patch Adh..Patch TRANSDERMA 05/04/23 13:11 1 patch ONCE ONE Administration Protocol Medical Decision Making Medical Decision Making [facility] Narrative: 1321 28 year old male presents w/ left sided scapula pain and left sided thoracic back pain X 1 day PE w/ left sided TTP to scapula and left thoracic paraspinous muscles. No midline tendernss. Neuro nonfocal Likely musculoskeletal pain is pain is reproducible on palpation muscle spasm versus sprain or strain versus nerve impingement. Unlikely ACS, PE, dissection, neurovascular compromise, threat to limb, pneumothorax. Will rule out rhabdo. I do not suspect fracture, dislocation, traumatic subluxation. I do not suspect epidural abscess, cauda equina, cord compression. Plan at this time labs, imaging, EKG Differential Diagnosis Differential Diagnoses: The differential diagnosis associated with the presentation includes Likely musculoskeletal pain is pain is reproducible on palpation muscle spasm versus sprain or strain versus nerve impingement. Unlikely ACS, PE, dissection, neurovascular compromise, threat to limb, pneumothorax. Will rule out rhabdo. I do not suspect fracture, dislocation, traumatic subluxation. I do not suspect epidural abscess, cauda equina, cord compression. Admission/Observation Consideration of admission/observation: Escalation of care including admission/observation considered unlikely Lab Data [facility] Lab Attestation statement: I reviewed the patient's lab results. 05/04/23 13:54 05/04/23 13:54 Labs: Lab Results 05/04/23 Range/Units 13:54 WBC 8.1 (4.8-10.8) X10*3/uL RBC 5.87 H (4.60-5.80) X10*6/uL Hgb 14.9 (14.0-18.0) g/dl Hct 45.1 (42.0-52.0) % MCV 76.8 L (80.0-98.0) fL MCH 25.4 L (27.0-33.0) pg MCHC 33.0 (31.0-36.0) g/dl RDW 14.0 (11.0-16.0) % Plt Count 318 (160-400) X10*3/uL MPV 10.0 (9.4-12.4) fL Immature Gran % (Auto) 0.1 (0.0-0.4) % Neut % (Auto) 66.6 (45-73) % Lymph % (Auto) 26.7 (20-40) % [place] % (Auto) 5.0 (2-11) % Eos % (Auto) 0.7 (0-4) % Baso % (Auto) 0.9 (0-2) % Lymph # (Auto) 2.2 (1.2-4.9) X10*3/uL [place] # (Auto) 0.4 (0.1-1.2) X10*3/uL Eos # (Auto) 0.1 (0.0-0.4) X10*3/uL Baso # (Auto) 0.1 (0.0-0.2) X10*3/uL Abs Immat Gran (auto) 0.01 (0.00-0.03) X10*3/uL Absolute Neuts (auto) 5.4 (2.0-8.3) x10*3/uL Absolute Nucleated RBC 0.000 (0.0-0.012) X10*3/uL Nucleated RBC % (auto) 0.0 (0.0-0.2) /100WBC D-Dimer High Sensitivty < 150 NG/ML Sodium 138 (135-145) mmol/L Potassium 3.7 (3.3-5.1) mmol/L Chloride 104 (96-108) mmol/L Carbon Dioxide 21 L (22-29) mmol/L Anion Gap 17 (12-20) BUN 20 H (9-16) mg/dL Creatinine 0.88 (0.5-1.4) mg/dL Estim Creat Clear Calc 121.3 Estimated GFR > 60 Random Glucose 105 (60-115) mg/dL Lactic Acid 2.0 (0.5-2.0) mmol/L Calcium 11.3 H D (8.4-10.2) mg/dL Magnesium 1.9 (1.6-2.6) mg/dL Total Bilirubin 0.9 (0.0-1.0) mg/dL AST 17 (5-37) U/L ALT 15 (0-40) U/L Alkaline Phosphatase 82 (39-117) U/L Total Creatine Kinase 92 (38-174) U/L Troponin I High Sens < 2.7 (<3.5-35.0) ng/L C-Reactive Protein 0.11 (< or = 0.50) mg/dL Total Protein 9.0 H (6.5-8.0) g/dL Albumin 5.3 H (3.5-5.0) g/dL Independent Interpretation I performed an independent interpretation of an: EKG (Ventricular rate of 91, AL normal, QRS normal, QT/QTC normal. EKG with normal sinus rhythm left anterior fascicular block and incomplete right bundle-branch block. No significant change when compared to previous EKG.) and Plain X-Ray (XR/XR ribs LT min 3V w CXR1V IMPRESSION: Unremarkable examination. ) Radiology Impression Discussion of test interpretation with radiology: I have reviewed the radiologist's reading. External Record Review External record reviewed: Inpatient record, Office record, Outpatient record, Prior outpatient labs, Prior outpatient radiology, Primary care record and Outside ED record Upon chart review patient has been here multiple times for similar complaints of body pain pain in upper body, muscle spasms, all in the month of April of 2023, last seen here and discharged earlier this morning, patient came in with complaints of neck and shoulder blade thoracic back pain after ?releasing anger and punching a bag ?, he stated pain started after that. When I asked him today if he had any trauma to the area he said no. Discharge Plan Discharge Clinical Impression: Paraspinal muscle spasm, Pain of left scapula, Neck pain Patient Disposition: Home, Self-Care Instructions: Acute Low Back Pain (ED), Back Pain (ED), Neck Pain (ED) Additional Instructions: Take your medications as prescribed. If you were prescribed antibiotics today, it is important that you take your medication to their entirety, do not skip any doses, do not finish them early. Follow-up with your primary care provider this week. Return to the emergency department with new or worsening symptoms. Such as fevers, chills, chest pain, shortness of breath, nausea, vomiting, dizziness, headache, vision changes, lethargy In case of emergency call 911 XR/XR ribs LT min 3V w CXR1V IMPRESSION: Unremarkable examination. XR/XR chest 1V IMPRESSION: No active cardiopulmonary disease. Toradol has been sent to your pharmacy, you tolerated this well in the department. Please take this as prescribed do not take this with ibuprofen, or other NSAIDs, do not mix this with alcohol. Side effects of this medication including increased risk for bleeding and possible kidney injury. Prescriptions: New ketorolac 10 mg tablet 10 mg PO TID PRN (Reason: pain) 5 Days Qty: 15 0RF cyclobenzaprine 10 mg tablet 10 mg PO BEDTIME PRN (Reason: muscle spasm) Qty: 7 0RF lidocaine 5 % adhesive patch,medicated 1 patch topical DAILY PRN (Reason: pain) Qty: 15 0RF Rx Instructions: leave on most painful area for up to 12 hrs No Action insulin aspart U-100 [Novolog FlexPen U-100 Insulin] 100 unit/mL (3 mL) insulin pen See Rx Instructions .ROUTE .COMPLEX Rx Instructions: 1 unit of insulin for every 35 units over 135 insulin glargine [Lantus Solostar U-100 Insulin] 100 unit/mL (3 mL) insulin pen 20 unit subcut DAILY pantoprazole [Protonix] 40 mg tablet,delayed release (DR/EC) 40 mg PO DAILY@0630 promethazine 25 mg tablet 25 mg PO TID PRN (Reason: nausea/vomiting) gabapentin 300 mg capsule 300 mg PO BID acetaminophen 325 mg Tablet 650 mg PO Q6H PRN (Reason: Pain) dicyclomine 20 mg tablet 20 mg PO QID Qty: 60 0RF Rx Instructions: Take 30 minutes before eating, 30 minutes before bed yionzritp-airqbt-rbvrrhiw-scop [] 16.2-0.1037 -0.0194 mg tablet 1 tab PO BID PRN (Reason: Nausea, vomiting) Qty: 14 0RF ondansetron 4 mg tablet,disintegrating 4 mg PO Q8H PRN (Reason: nausea and vomiting) Qty: 20 0RF promethazine 25 mg tablet 25 mg PO TID PRN (Reason: nausea and vomiting) Qty: 20 0RF cyclobenzaprine 10 mg tablet 10 mg PO TID PRN (Reason: muscle spasm) Qty: 14 0RF lidocaine 5 % adhesive patch,medicated 1 patch topical DAILY Qty: 15 0RF Rx Instructions: leave on most painful area for up to 12 hrs naproxen 500 mg tablet 500 mg PO BID PRN (Reason: pain) Qty: 20 0RF Referrals: Sandra Leal MD [Primary Care Provider] - 2 days
[2023-05-04 13:17] VITALS: BP 110/78; BP 111/69; PULSE 93; PULSE 98; RESP 18; TEMP 37.2; O2SAT 100; O2SAT 99; BMI 20.3
--- NOTE | 2023-05-04 13:22 | ECG_ITS ---
Test Reason : SHOULDER PAIN Blood Pressure : / mmHG Vent. Rate : 091 BPM Atrial Rate : 091 BPM P-R Int : 124 ms QRS Dur : 092 ms QT Int : 356 ms P-R-T Axes : 085 -50 052 degrees QTc Int : 437 ms Normal sinus rhythm Left anterior fascicular block Incomplete right bundle branch block Abnormal ECG When compared with ECG of 04-MAY-2023 01:36, No significant change was found Referred By: Asa Morris Electronically Signed By:FERNANDEZ GRAJEDA
[2023-05-04] MEDS: Ketorolac Tromethamine 15 MG/ML VIAL 30 MG IM (13:26)
[2023-05-04] MEDS: Lidocaine 4 % Patch ADH..PATCH 1 PATCH TRANSDERMA (13:27)
[2023-05-04] MEDS: Cyclobenzaprine HCl 10 MG TABLET PO (13:27)
[2023-05-04] MEDS: diazePAM 2 MG TABLET PO (13:28)
[2023-05-04 14:01] LABS: MANUAL DIFF FLAG NO
[2023-05-04 14:05] LABS: Basophils Absolute Auto 0.1 X10*3/uL (0.0-0.2); Basophils Percent Auto 0.9 % (0-2); Eosinophils Absolute Auto 0.1 X10*3/uL (0.0-0.4); Eosinophils Percent Auto 0.7 % (0-4); Hematocrit 45.1 % (42.0-52.0); Hemoglobin 14.9 g/dl (14.0-18.0); Imm Gran Abs Auto 0.01 X10*3/uL (0.00-0.03); Imm Gran Pct Auto 0.1 % (0.0-0.4); Lymphocytes Absolute Auto 2.2 X10*3/uL (1.2-4.9); Lymphocytes Percent Auto 26.7 % (20-40); Mean Corpuscular Hemoglobin 25.4 pg (27.0-33.0); Mean Corpuscular Volume 76.8 fL (80.0-98.0); Monocytes Absolute Auto 0.4 X10*3/uL (0.1-1.2); Neutrophils Absolute Auto 5.4 x10*3/uL (2.0-8.3); Neutrophils Percent Auto 66.6 % (45-73); Platelet Count 318 X10*3/uL (160-400); Red Blood Count 5.87 X10*6/uL (4.60-5.80); White Blood Count 8.1 X10*3/uL (4.8-10.8)
[2023-05-04 14:15] LABS: D Dimer High Sensitivity < 150 NG/ML
[2023-05-04 14:20] LABS: Alanine Aminotransferase 15 U/L (0-40); Albumin Level 5.3 g/dL (3.5-5.0); Alkaline Phosphatase 82 U/L (39-117); Anion Gap 17 (12-20); Aspartate Amino Transferase 17 U/L (5-37); Bilirubin Total 0.9 mg/dL (0.0-1.0); Blood Urea Nitrogen 20 mg/dL (9-16); C Reactive Protein 0.11 mg/dL (< or = 0.50); Calcium 11.3 mg/dL (8.4-10.2); Carbon Dioxide 21 mmol/L (22-29); Chloride 104 mmol/L (96-108); Creatinine Clr Calc Pharmacy 121.3; Estimated Glomerular Filt Rate > 60; Glucose Random 105 mg/dL (60-115); Magnesium 1.9 mg/dL (1.6-2.6); Potassium 3.7 mmol/L (3.3-5.1); Sodium 138 mmol/L (135-145)
[2023-05-04 14:30] LABS: Troponin-I High Sensitivity < 2.7 ng/L (<3.5-35.0)
[2023-05-04 14:50] LABS: Erythrocyte Sedimentation Rate 7 MM/HR (0-15)
[2023-05-04 14:53] VITALS: BP 110/71; PULSE 86; RESP 18; O2SAT 98
== END 2023-05-04 15:27 | disposition home or self-care (01) ==
PROVIDERS: Physician Assistant; Emergency Provider Emergency Medicine; PCP Student in an Organized Health Care Education/Training Program
DX: M62.838 Other muscle spasm (principal); M25.512 Pain in left shoulder; M54.2 Cervicalgia; E10.9 Type 1 diabetes mellitus without complications; F17.210 Nicotine dependence, cigarettes, uncomplicated; F12.90 Cannabis use, unspecified, uncomplicated; Z79.4 Long term (current) use of insulin; Z79.899 Other long term (current) drug therapy
CPT/HCPCS: 36415; 71101; 80053; 82550; 83605; 83735; 84484; 85025; 85379; 85652; 86140; 87040; 93005; 96372; 99284; 99285; J1885

== ENCOUNTER 2023-05-12 22:29 | Emergency (ER) | payer MEDICAID, SELFPAY ==
[2023-05-12 22:32] VITALS: BP 118/74; PULSE 86; O2SAT 100
--- NOTE | 2023-05-12 23:04 | PC.NURSE ---
pt has been eating snacks and repeat poc 197 pt wants to leave provider made aware.
[2023-05-12 23:05] VITALS: BP 110/74; PULSE 82; RESP 12; TEMP 36.5; O2SAT 100; BMI 21.2
[2023-05-12 23:05] LABS: Glucose, Whole Blood 197 mg/dL (60-115)
--- NOTE | 2023-05-12 23:17 | ED_ITS ---
HPI - General Adult General Chief complaint: General Medical Stated complaint: Low sugar levels due to not eating Time Seen by Provider: 05/12/23 23:11 Source: patient Mode of arrival: EMS Limitations: no limitations History of Present Illness HPI narrative: Patient diabetic on insulin did not eat well all day today came here as was not feeling well blood sugar was 52 on arrival after that patient had blood sugar improved to 195 patient feeling back to normal no fever no chills no cough no signs of an infection patient took Lantus 20 units at 16:00 Related Data Home Medications Medication Instructions Recorded Confirmed insulin aspart U-100 100 unit/mL See Rx Instructions .Route .COMPLEX 12/19/22 01/23/23 (3 mL) subcutaneous pen (Novolog FlexPen U-100 Insulin aspart) insulin glargine 100 unit/mL (3 20 unit subcut DAILY 12/19/22 01/23/23 mL) subcutaneous pen (Lantus Solostar U-100 Insulin) pantoprazole 40 mg tablet,delayed 40 mg PO DAILY@0630 12/19/22 01/23/23 release (Protonix) acetaminophen 325 mg tablet 650 mg PO Q6H PRN Pain 01/23/23 01/23/23 gabapentin 300 mg capsule 300 mg PO BID 01/23/23 01/23/23 promethazine 25 mg tablet 25 mg PO TID PRN nausea/vomiting 01/23/23 01/23/23 Previous Rx's Medication Instructions Recorded dicyclomine 20 mg tablet 20 mg PO QID #60 tabs 01/23/23 jhruqddru-sbcvithca-fsnibrfr-scop 1 tab PO BID PRN Nausea, vomiting 01/23/23 16.2 mg-0.1037 mg-0.0194 mg tablet #14 tabs () promethazine 25 mg tablet 25 mg PO TID PRN nausea and 03/11/23 vomiting #20 tabs cyclobenzaprine 10 mg tablet 10 mg PO TID PRN muscle spasm #14 03/16/23 tabs lidocaine 5 % topical patch 1 patch topical DAILY #15 ea 03/16/23 naproxen 500 mg tablet 500 mg PO BID PRN pain #20 tabs 03/16/23 ondansetron 4 mg disintegrating 4 mg PO Q8H PRN nausea and 04/13/23 tablet vomiting #20 tabs cyclobenzaprine 10 mg tablet 10 mg PO BEDTIME PRN muscle spasm 05/04/23 #7 tabs ketorolac 10 mg tablet 10 mg PO TID PRN pain 5 days #15 05/04/23 tabs lidocaine 5 % topical patch 1 patch topical DAILY PRN pain #15 05/04/23 ea Allergies Allergy/AdvReac Type Severity Reaction Status Date / Time diphenhydramine Allergy Anaphylaxis Verified 05/04/23 13:23 [From Benadryl] haloperidol [From Haldol] Allergy Difficulty Verified 05/04/23 13:23 Swallowing Review of Systems Review of Systems: Yes all other systems are reviewed and are negative [facility] Past Medical History 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 Social History Social History Household Members: Other Household Members Other:: cousin Housing: House Do you presently have visiting nurse or other home services: No Alcohol intake: never Patient Tobacco Use Status: Current everyday Tobacco user Tobacco use type: Cigarette Cigarette Packs Per Day: 0 Cigarettes Per Day: 0 Years Smoked: 10 e-Cigarette/Vaping Use: Never Used Second Hand Smoke Exposure: No Substance Use Type: Marijuana service: No Current occupational status: employed Physical Exam ED Vital Signs: Vital Signs - 24 hr 05/12/23 23:05 Temperature 97.7 F Pulse Rate 82 Respiratory Rate 12 Blood Pressure 110/74 Pulse Oximetry 100 Oxygen Delivery Method Room Air BMI result Body Mass Index 21.2 Appearance: Alert. Oriented X3. No acute distress. Eyes: PERRLA, No Nystagmus ENT: Pharynx normal. Oral Mucosa moist Neck: Normal inspection. Neck supple. CVS: Normal heart rate and rhythm. Pulses normal. Respiratory: No respiratory distress. Equal air entry bilateral, no wheezing/rales/rhonchi Abdomen: Soft and nontender. Bowel sounds are present, no mass palpable, no CVA tenderness Skin: Skin warm and dry. Normal skin color. Normal skin turgor. Extremities: No lower extremity edema. No calf tenderness Neuro: Oriented X 3. No motor deficit. No sensory deficit.No cerebellar signs , cranial nerves II-XII intact Medical Decision Making Lab Data [facility] Lab Attestation statement: I reviewed the patient's lab results. Labs: Lab Results 05/12/23 Range/Units 23:01 POC Glucose 197 H (60-115) mg/dL Discharge Plan Discharge Clinical Impression: Diabetic hypoglycemia Patient Disposition: Home, Self-Care Instructions: Hypoglycemia in a Person with Diabetes (ED) Additional Instructions: Eat well and take insulin on time Follow with PCP if any concerns Prescriptions: No Action insulin aspart U-100 [Novolog FlexPen U-100 Insulin] 100 unit/mL (3 mL) insulin pen See Rx Instructions .ROUTE .COMPLEX Rx Instructions: 1 unit of insulin for every 35 units over 135 insulin glargine [Lantus Solostar U-100 Insulin] 100 unit/mL (3 mL) insulin pen 20 unit subcut DAILY pantoprazole [Protonix] 40 mg tablet,delayed release (DR/EC) 40 mg PO DAILY@0630 promethazine 25 mg tablet 25 mg PO TID PRN (Reason: nausea/vomiting) gabapentin 300 mg capsule 300 mg PO BID acetaminophen 325 mg Tablet 650 mg PO Q6H PRN (Reason: Pain) dicyclomine 20 mg tablet 20 mg PO QID Qty: 60 0RF Rx Instructions: Take 30 minutes before eating, 30 minutes before bed qxsfynymz-rjafym-iprrntor-scop [] 16.2-0.1037 -0.0194 mg tablet 1 tab PO BID PRN (Reason: Nausea, vomiting) Qty: 14 0RF ondansetron 4 mg tablet,disintegrating 4 mg PO Q8H PRN (Reason: nausea and vomiting) Qty: 20 0RF promethazine 25 mg tablet 25 mg PO TID PRN (Reason: nausea and vomiting) Qty: 20 0RF cyclobenzaprine 10 mg tablet 10 mg PO TID PRN (Reason: muscle spasm) Qty: 14 0RF lidocaine 5 % adhesive patch,medicated 1 patch topical DAILY Qty: 15 0RF Rx Instructions: leave on most painful area for up to 12 hrs naproxen 500 mg tablet 500 mg PO BID PRN (Reason: pain) Qty: 20 0RF ketorolac 10 mg tablet 10 mg PO TID PRN (Reason: pain) 5 Days Qty: 15 0RF cyclobenzaprine 10 mg tablet 10 mg PO BEDTIME PRN (Reason: muscle spasm) Qty: 7 0RF lidocaine 5 % adhesive patch,medicated 1 patch topical DAILY PRN (Reason: pain) Qty: 15 0RF Rx Instructions: leave on most painful area for up to 12 hrs
--- NOTE | 2023-05-12 23:18 | PC.NURSE ---
Pt ca&ox4, no signs of distress. Pt POC 197 Pt reports he feels better now and would like to go home. Vitals stable Provider in with pt. Plan of care ongoing.
== END 2023-05-13 00:08 | disposition home or self-care (01) ==
PROVIDERS: Emergency Provider Internal Medicine
DX: E11.649 Type 2 diabetes mellitus with hypoglycemia without coma (principal); F17.210 Nicotine dependence, cigarettes, uncomplicated; Z71.6 Tobacco abuse counseling; Z79.899 Other long term (current) drug therapy; Z79.4 Long term (current) use of insulin
CPT/HCPCS: 82947; 99284

== ENCOUNTER 2023-05-18 10:13 | Emergency (ER) | payer MEDICAID, SELFPAY ==
[2023-05-18 10:28] VITALS: BP 130/74; BP 130/80; PULSE 82; PULSE 83; RESP 18; TEMP 36.8; O2SAT 100; O2SAT 99; BMI 19.6
[2023-05-18 10:29] LABS: Glucose, Whole Blood 212 mg/dL (60-115)
--- NOTE | 2023-05-18 10:36 | ED_ITS ---
HPI - General Adult General Chief complaint: General Medical Stated complaint: body aches Time Seen by Provider: 05/18/23 10:22 Source: patient and old records reviewed Mode of arrival: EMS Limitations: no limitations History of Present Illness HPI narrative: 28 yo male well known to us hx of IDDM, DKA, gastroparesis multiple visits for thoracic and neck pain who comes in today with generalized body pain and n/v that started upon waking this AM. He denies trauma or anxiety. He states this came out of nowhere. MD complaint: body aches Onset (ago): hour(s) (few) Location: neck, left, right, upper extremity and lower extremity Radiation: non-radiation Severity: severe and similar to prior episodes Quality: crushing Pain Consistency: constant Relieving factors: none Exacerbating factors: movement Associated symptoms: loss of appetite, malaise and nausea/vomiting Treatments prior to arrival: none Related Data Home Medications Medication Instructions Recorded Confirmed insulin aspart U-100 100 unit/mL See Rx Instructions .Route .COMPLEX 12/19/22 01/23/23 (3 mL) subcutaneous pen (Novolog FlexPen U-100 Insulin aspart) insulin glargine 100 unit/mL (3 20 unit subcut DAILY 12/19/22 01/23/23 mL) subcutaneous pen (Lantus Solostar U-100 Insulin) pantoprazole 40 mg tablet,delayed 40 mg PO DAILY@0630 12/19/22 01/23/23 release (Protonix) acetaminophen 325 mg tablet 650 mg PO Q6H PRN Pain 01/23/23 01/23/23 gabapentin 300 mg capsule 300 mg PO BID 01/23/23 01/23/23 promethazine 25 mg tablet 25 mg PO TID PRN nausea/vomiting 01/23/23 01/23/23 Previous Rx's Medication Instructions Recorded dicyclomine 20 mg tablet 20 mg PO QID #60 tabs 01/23/23 nsyhffaoe-yirgoqkgp-roxnvezf-scop 1 tab PO BID PRN Nausea, vomiting 01/23/23 16.2 mg-0.1037 mg-0.0194 mg tablet #14 tabs () promethazine 25 mg tablet 25 mg PO TID PRN nausea and 03/11/23 vomiting #20 tabs cyclobenzaprine 10 mg tablet 10 mg PO TID PRN muscle spasm #14 03/16/23 tabs lidocaine 5 % topical patch 1 patch topical DAILY #15 ea 03/16/23 naproxen 500 mg tablet 500 mg PO BID PRN pain #20 tabs 03/16/23 ondansetron 4 mg disintegrating 4 mg PO Q8H PRN nausea and 04/13/23 tablet vomiting #20 tabs cyclobenzaprine 10 mg tablet 10 mg PO BEDTIME PRN muscle spasm 05/04/23 #7 tabs ketorolac 10 mg tablet 10 mg PO TID PRN pain 5 days #15 05/04/23 tabs lidocaine 5 % topical patch 1 patch topical DAILY PRN pain #15 05/04/23 ea ondansetron 4 mg disintegrating 4 mg PO Q8H PRN nausea and 05/18/23 tablet vomiting #20 tabs Allergies Allergy/AdvReac Type Severity Reaction Status Date / Time diphenhydramine Allergy Anaphylaxis Verified 05/18/23 10:28 [From Benadryl] haloperidol [From Haldol] Allergy Difficulty Verified 05/18/23 10:28 Swallowing Review of Systems 2 Review of Systems: Constitutional : No Fever, No Chills, No Fatigue ENT/Mouth : No sore throat, No Rhinorrhea Eyes: No Eye Pain, No Swelling, No Redness Cardiovascular : No Chest Pain, No SOB, No Dyspnea on Exertion Respiratory : No Cough, No Sputum Gastrointestinal : pos Nausea, pos Vomiting, No Diarrhea, No abdominal Pain Genitourinary : No Dysuria, No Urinary Frequency, No Hematuria, Musculoskeletal : pos joint pain, pos Myalgias, no Joint Swelling Skin : No Skin Lesions, No rash Neuro : No Weakness, No Numbness, No Dizziness, no Headache Psych : No Anxiety/Panic, No Depression Heme/Lymph: No Bruising, No Bleeding,No Lymphadenopathy Endocrine : No Polyuria, No Polydipsia All other systems reviewed and are negative [facility] Past Medical History Attestation statement: The following information was validated with the patient. 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 Social History Social History Household Members: Other Household Members Other:: cousin Housing: House Do you presently have visiting nurse or other home services: No Alcohol intake: never Patient Tobacco Use Status: Current everyday Tobacco user Tobacco use type: Cigarette Cigarette Packs Per Day: 0 Cigarettes Per Day: 0 Years Smoked: 10 Smoked in Last 30 Days: No e-Cigarette/Vaping Use: Never Used Second Hand Smoke Exposure: No Use of substances other than those prescribed or required for medical reasons: Yes Substance Use Type: Marijuana Advance Directives: No Advance Directives Information Provided: No service: No Current occupational status: employed Physical Exam ED Vital Signs: Vital Signs - 24 hr 05/18/23 10:28 05/18/23 14:11 05/18/23 14:45 Temperature 98.3 F Pulse Rate 82 96 109 H Respiratory Rate 18 16 16 Blood Pressure 130/80 91/52 L 104/62 Pulse Oximetry 99 97 99 Oxygen Delivery Method Room Air Room Air Room Air BMI result Body Mass Index 19.6 Appearance: Alert. Oriented X3. anxious yelling out mild acute distress. rolling around on stretcher Eyes: Pupils equal, round and reactive to light. ENT: Pharynx dry MM, poor dentition Neck: Normal inspection. Neck supple. CVS: Normal heart rate and rhythm. Pulses normal. Respiratory: No respiratory distress. Breath sounds normal. Abdomen: Soft and nontender. Skin: Skin warm and dry. Normal skin color. Normal skin turgor. Extremities: No lower extremity edema. Neuro: Oriented X 3. No motor deficit. No sensory deficit. Course Course Course Narrative: lactic acidosis due to dehydration and not infection or severe sepsis tolerating shaila aydee and crackers - initially stated he was scared to leave in case he threw up again but sent home with Rx and he is tolerating PO here. Reevaluation(s) Reevaluation #1: not in DKA Medications Administered Discontinued Medications Generic Name Dose Route Start Last Admin Trade Name Freq PRN Reason Stop Dose Admin Sodium Chloride 1,000 mls @ 999 mls/hr 05/18/23 10:30 05/18/23 13:23 Ns IVCONT 05/18/23 11:30 Infused .Q1H1M JELENA Infusion Sodium Chloride 1,000 mls @ 999 mls/hr 05/18/23 10:45 05/18/23 12:39 Ns IV 05/18/23 11:45 Infused .Q1H1M JELENA Infusion Ketorolac Tromethamine 15 mg 05/18/23 10:23 05/18/23 11:28 Ketorolac Tromethamine 15 Mg/Ml Vial IVPUSH 05/18/23 10:24 15 mg ONCE ONE Administration Lorazepam 1 mg 05/18/23 10:23 05/18/23 11:27 Lorazepam 2 Mg/Ml Vial IVPUSH 05/18/23 10:24 1 mg STAT STA Administration Metoclopramide HCl 10 mg 05/18/23 10:39 05/18/23 11:28 Metoclopramide Hcl 10 Mg/2 Ml Vial IVPUSH 05/18/23 10:40 10 mg ONCE ONE Administration Medical Decision Making Medical Decision Making MDM Narrative: 28 yo male well known to us hx of IDDM, DKA, gastroparesis multiple visits for thoracic and neck pain here with n/v and diffuse body aches we have seen him for this multiple times in the past he denies trauma or exertion yesterday. He states he has no anxiety. At this time will obtain basic, labs, hydrate and provide supportive medications. He has had CXR and imaging for the same complaint in the past. Unless lab derangement will hold off imaging. Differential Diagnosis Differential Diagnoses: The differential diagnosis associated with the presentation includes rhabdo, COVID, dehydration, DKA, anxiety Admission/Observation Consideration of admission/observation: Escalation of care including admission/observation considered lactic acid clears sleeping can tolerate PO feels better Lab Data [facility] Lab Attestation statement: I reviewed the patient's lab results. 05/18/23 11:05 05/18/23 12:02 Labs: Lab Results 05/18/23 05/18/23 05/18/23 Range/Units 10:25 11:05 11:16 WBC 8.1 (4.8-10.8) X10*3/uL RBC 6.07 H (4.60-5.80) X10*6/uL Hgb 15.6 (14.0-18.0) g/dl Hct 47.3 (42.0-52.0) % MCV 77.9 L (80.0-98.0) fL MCH 25.7 L (27.0-33.0) pg MCHC 33.0 (31.0-36.0) g/dl RDW 14.6 (11.0-16.0) % Plt Count 329 (160-400) X10*3/uL MPV 10.1 (9.4-12.4) fL Immature Gran % (Auto) 0.2 (0.0-0.4) % Neut % (Auto) 71.2 (45-73) % Lymph % (Auto) 22.5 (20-40) % Floyd % (Auto) 3.8 (2-11) % Eos % (Auto) 1.6 (0-4) % Baso % (Auto) 0.7 (0-2) % Lymph # (Auto) 1.8 (1.2-4.9) X10*3/uL Floyd # (Auto) 0.3 (0.1-1.2) X10*3/uL Eos # (Auto) 0.1 (0.0-0.4) X10*3/uL Baso # (Auto) 0.1 (0.0-0.2) X10*3/uL Abs Immat Gran (auto) 0.02 (0.00-0.03) X10*3/uL Absolute Neuts (auto) 5.8 (2.0-8.3) x10*3/uL Absolute Nucleated RBC 0.000 (0.0-0.012) X10*3/uL Nucleated RBC % (auto) 0.0 (0.0-0.2) /100WBC VBG pH 7.49 H (7.32-7.43) VBG pCO2 30 mmHg VBG pO2 32 mmHg VBG HCO3 23 (22-26) mmol/L VBG O2 Saturation 54.0 % VBG Base Excess 1.2 mmol/L Sodium (135-145) mmol/L Potassium (3.3-5.1) mmol/L Chloride (96-108) mmol/L Carbon Dioxide (22-29) mmol/L Anion Gap (12-20) BUN (9-16) mg/dL Creatinine (0.5-1.4) mg/dL Estim Creat Clear Calc Estimated GFR POC Glucose 212 H (60-115) mg/dL Random Glucose (60-115) mg/dL Lactic Acid 3.4 H* (0.5-2.0) mmol/L Lactic Acid F/U @ 2Hr (0.5-2.0) mmol/L Calcium (8.4-10.2) mg/dL Magnesium (1.6-2.6) mg/dL Total Bilirubin (0.0-1.0) mg/dL Direct Bilirubin (0.0-0.5) mg/dL AST (5-37) U/L ALT (0-40) U/L Alkaline Phosphatase (39-117) U/L Total Creatine Kinase (38-174) U/L Total Protein (6.5-8.0) g/dL Albumin (3.5-5.0) g/dL Lipase (8-78) U/L COVID-19 ([facility]) Negative (Negative) COVID-19 Clin Com See Note 05/18/23 05/18/23 Range/Units 12:02 13:49 WBC (4.8-10.8) X10*3/uL RBC (4.60-5.80) X10*6/uL Hgb (14.0-18.0) g/dl Hct (42.0-52.0) % MCV (80.0-98.0) fL MCH (27.0-33.0) pg MCHC (31.0-36.0) g/dl RDW (11.0-16.0) % Plt Count (160-400) X10*3/uL MPV (9.4-12.4) fL Immature Gran % (Auto) (0.0-0.4) % Neut % (Auto) (45-73) % Lymph % (Auto) (20-40) % Floyd % (Auto) (2-11) % Eos % (Auto) (0-4) % Baso % (Auto) (0-2) % Lymph # (Auto) (1.2-4.9) X10*3/uL Floyd # (Auto) (0.1-1.2) X10*3/uL Eos # (Auto) (0.0-0.4) X10*3/uL Baso # (Auto) (0.0-0.2) X10*3/uL Abs Immat Gran (auto) (0.00-0.03) X10*3/uL Absolute Neuts (auto) (2.0-8.3) x10*3/uL Absolute Nucleated RBC (0.0-0.012) X10*3/uL Nucleated RBC % (auto) (0.0-0.2) /100WBC VBG pH (7.32-7.43) VBG pCO2 mmHg VBG pO2 mmHg VBG HCO3 (22-26) mmol/L VBG O2 Saturation % VBG Base Excess mmol/L Sodium 138 (135-145) mmol/L Potassium 4.8 D (3.3-5.1) mmol/L Chloride 106 (96-108) mmol/L Carbon Dioxide 18 L (22-29) mmol/L Anion Gap 19 (12-20) BUN 17 H (9-16) mg/dL Creatinine 0.83 (0.5-1.4) mg/dL Estim Creat Clear Calc 123.8 Estimated GFR > 60 POC Glucose (60-115) mg/dL Random Glucose 277 H (60-115) mg/dL Lactic Acid (0.5-2.0) mmol/L Lactic Acid F/U @ 2Hr 0.9 (0.5-2.0) mmol/L Calcium 9.9 D (8.4-10.2) mg/dL Magnesium 2.0 (1.6-2.6) mg/dL Total Bilirubin 0.7 (0.0-1.0) mg/dL Direct Bilirubin 0.2 (0.0-0.5) mg/dL AST 24 (5-37) U/L ALT 16 (0-40) U/L Alkaline Phosphatase 67 (39-117) U/L Total Creatine Kinase 114 (38-174) U/L Total Protein 7.8 (6.5-8.0) g/dL Albumin 4.4 (3.5-5.0) g/dL Lipase 5 L (8-78) U/L COVID-19 ([facility]) (Negative) COVID-19 Clin Com Independent Historian Clinical information obtained from an independent historian. History obtained from or confirmed by: EMS External Record Review External record reviewed: Inpatient record Prescription Management I considered prescription management with: Other Chronic Conditions Patient?s care impacted by: Diabetes Social Determinants Patient?s care significantly limited by Social Determinants of Health including: Problems related to primary support group Critical Care Time Critical Care Time Critical Care Time: Yes Total Critical Care Time: 31 Attestation: IVF x 2L, repeat lactic acid I attest to this time spent taking care of the patient Discharge Plan Discharge Clinical Impression: Myalgia, Acute dehydration Vomiting Qualifiers: Vomiting type: unspecified Nausea presence: with nausea Qualified Code(s): R 11.2 - Nausea with vomiting, unspecified Patient Disposition: Home, Self-Care Instructions: Dehydration (ED), Acute Nausea and Vomiting (ED), Musculoskeletal Pain (ED) Additional Instructions: eat a bland diet and stay hydrated. please talk to your doctor about these recurrent symptoms you have and come to the ED for. return for fever, return of vomiting and inability to eat or drink. advance your diet slowly over the next 2 days. Prescriptions: New ondansetron 4 mg tablet,disintegrating 4 mg PO Q8H PRN (Reason: nausea and vomiting) Qty: 20 0RF No Action insulin aspart U-100 [Novolog FlexPen U-100 Insulin] 100 unit/mL (3 mL) insulin pen See Rx Instructions .ROUTE .COMPLEX Rx Instructions: 1 unit of insulin for every 35 units over 135 insulin glargine [Lantus Solostar U-100 Insulin] 100 unit/mL (3 mL) insulin pen 20 unit subcut DAILY pantoprazole [Protonix] 40 mg tablet,delayed release (DR/EC) 40 mg PO DAILY@0630 promethazine 25 mg tablet 25 mg PO TID PRN (Reason: nausea/vomiting) gabapentin 300 mg capsule 300 mg PO BID acetaminophen 325 mg Tablet 650 mg PO Q6H PRN (Reason: Pain) dicyclomine 20 mg tablet 20 mg PO QID Qty: 60 0RF Rx Instructions: Take 30 minutes before eating, 30 minutes before bed qlqbxptpo-arhvho-slgvqzpq-scop [] 16.2-0.1037 -0.0194 mg tablet 1 tab PO BID PRN (Reason: Nausea, vomiting) Qty: 14 0RF ondansetron 4 mg tablet,disintegrating 4 mg PO Q8H PRN (Reason: nausea and vomiting) Qty: 20 0RF promethazine 25 mg tablet 25 mg PO TID PRN (Reason: nausea and vomiting) Qty: 20 0RF cyclobenzaprine 10 mg tablet 10 mg PO TID PRN (Reason: muscle spasm) Qty: 14 0RF lidocaine 5 % adhesive patch,medicated 1 patch topical DAILY Qty: 15 0RF Rx Instructions: leave on most painful area for up to 12 hrs naproxen 500 mg tablet 500 mg PO BID PRN (Reason: pain) Qty: 20 0RF ketorolac 10 mg tablet 10 mg PO TID PRN (Reason: pain) 5 Days Qty: 15 0RF cyclobenzaprine 10 mg tablet 10 mg PO BEDTIME PRN (Reason: muscle spasm) Qty: 7 0RF lidocaine 5 % adhesive patch,medicated 1 patch topical DAILY PRN (Reason: pain) Qty: 15 0RF Rx Instructions: leave on most painful area for up to 12 hrs Interventions: ED Discharge Assessment Last Done: 05/18/23 15:31
[2023-05-18 11:19] LABS: MANUAL DIFF FLAG NO
[2023-05-18 11:20] LABS: Basophils Absolute Auto 0.1 X10*3/uL (0.0-0.2); Basophils Percent Auto 0.7 % (0-2); Eosinophils Absolute Auto 0.1 X10*3/uL (0.0-0.4); Eosinophils Percent Auto 1.6 % (0-4); Hematocrit 47.3 % (42.0-52.0); Hemoglobin 15.6 g/dl (14.0-18.0); Imm Gran Abs Auto 0.02 X10*3/uL (0.00-0.03); Imm Gran Pct Auto 0.2 % (0.0-0.4); Lymphocytes Absolute Auto 1.8 X10*3/uL (1.2-4.9); Lymphocytes Percent Auto 22.5 % (20-40); Mean Corpuscular Hemoglobin 25.7 pg (27.0-33.0); Mean Corpuscular Volume 77.9 fL (80.0-98.0); Mean Platelet Volume 10.1 fL (9.4-12.4); Monocytes Absolute Auto 0.3 X10*3/uL (0.1-1.2); Monocytes Percent Auto 3.8 % (2-11); Neutrophils Absolute Auto 5.8 x10*3/uL (2.0-8.3); Neutrophils Percent Auto 71.2 % (45-73); Platelet Count 329 X10*3/uL (160-400); Red Blood Count 6.07 X10*6/uL (4.60-5.80); Red Cell Distribution Width 14.6 % (11.0-16.0); White Blood Count 8.1 X10*3/uL (4.8-10.8)
[2023-05-18 11:21] LABS: Venous Blood Gas Refer to POC result
[2023-05-18 11:22] LABS: VBG Base Excess 1.2 mmol/L; VBG HCO3 23 mmol/L (22-26); VBG pCO2 30 mmHg; VBG pH 7.49 (7.32-7.43); VBG pO2 32 mmHg
[2023-05-18] MEDS: 0.9 % Sodium Chloride 1,000 ML 999 ML IVCONT (11:27)
[2023-05-18] MEDS: LORazepam 2 MG/ML VIAL 1 MG IVPUSH (11:27)
[2023-05-18] MEDS: 0.9 % Sodium Chloride 1,000 ML 999 ML IV (11:27)
[2023-05-18] MEDS: Ketorolac Tromethamine 15 MG/ML VIAL IVPUSH (11:28)
[2023-05-18] MEDS: Metoclopramide HCl 10 MG/2 ML VIAL IVPUSH (11:28)
--- NOTE | 2023-05-18 11:35 | PC.NURSE ---
pt a&ox4, vss, 20G IV placed R wrist by another RN, medicated per MAR for 10/10 pain, nausea, vomiting. pt restless, tearful. given a warm blanket. no new orders at this time.
[2023-05-18 11:36] LABS: Lactic Acid 3.4 mmol/L (0.5-2.0)
[2023-05-18 11:40] LABS: COVID-19 Test Negative (Negative); IDNOW Serial# 6674DD1D
[2023-05-18 12:28] LABS: Alanine Aminotransferase 16 U/L (0-40); Albumin Level 4.4 g/dL (3.5-5.0); Alkaline Phosphatase 67 U/L (39-117); Anion Gap 19 (12-20); Aspartate Amino Transferase 24 U/L (5-37); Bilirubin Direct 0.2 mg/dL (0.0-0.5); Bilirubin Total 0.7 mg/dL (0.0-1.0); Blood Urea Nitrogen 17 mg/dL (9-16); Calcium 9.9 mg/dL (8.4-10.2); Carbon Dioxide 18 mmol/L (22-29); Chloride 106 mmol/L (96-108); Creatinine Clr Calc Pharmacy 123.8; Estimated Glomerular Filt Rate > 60; Glucose Random 277 mg/dL (60-115); Lipase 5 U/L (8-78); Potassium 4.8 mmol/L (3.3-5.1); Sodium 138 mmol/L (135-145); Total Protein 7.8 g/dL (6.5-8.0)
--- NOTE | 2023-05-18 12:42 | PC.NURSE ---
pt resting quietly, RR even and unlabored.
[2023-05-18 13:16] LABS: Reflex Lactate? Lactic Acid Added
[2023-05-18 14:04] LABS: ~Lactic Acid-LAB USE ONLY 0.9 mmol/L (0.5-2.0)
[2023-05-18 14:11] VITALS: BP 91/52; PULSE 96; RESP 16; O2SAT 97
[2023-05-18 14:45] VITALS: BP 104/62; PULSE 109; RESP 16; O2SAT 99
--- NOTE | 2023-05-18 15:26 | PC.NURSE ---
pt tolerated PO trial - ate crackers and diet shaila aydee w no cont'd vomiting, vss, pt reluctant to discharge due to concern about cont'd vomiting. pt hasn't had any episodes of vomiting since medication administration. provider notified, pt cleared for discharge per provider.
== END 2023-05-18 15:41 | disposition home or self-care (01) ==
PROVIDERS: Emergency Provider Emergency Medicine
DX: M79.10 Myalgia, unspecified site (principal); E86.0 Dehydration; R11.2 Nausea with vomiting, unspecified; E87.20 Acidosis, unspecified; Z20.822 Contact with and (suspected) exposure to COVID-19; E10.8 Type 1 diabetes mellitus with unspecified complications; F17.210 Nicotine dependence, cigarettes, uncomplicated; F12.90 Cannabis use, unspecified, uncomplicated; Z79.4 Long term (current) use of insulin; Z79.899 Other long term (current) drug therapy
CPT/HCPCS: 36415; 80048; 80076; 82550; 82803; 82947; 83605; 83690; 83735; 85025; 87635; 96361; 96374; 96375; 99284; J1885; J2060; J2765

== ENCOUNTER 2023-05-27 02:24 | Emergency (ER) | payer MEDICAID, SELFPAY ==
[2023-05-27 02:28] VITALS: BP 142/90; PULSE 98; O2SAT 98; BMI 20.5
[2023-05-27 02:33] VITALS: BP 118/81; PULSE 98; TEMP 36.9; O2SAT 98
--- NOTE | 2023-05-27 02:54 | ED.LOWEXIN ---
HPI - Extremity Injury (Lower) General Chief Complaint: Extremity Injury, Lower Stated Complaint: itchiness Time Seen by Provider: 05/27/23 02:47 Source: patient Mode of arrival: EMS Limitations: no limitations History of Present Illness HPI Narrative: Patient comes to the emergency room complaining of thigh burning sensation. Patient states that for a few hours the anterior aspect of both thighs hickey. Patient denies any injury. Patient unsure if it is more like a skin discomfort or muscle pain. 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 Related Data Home Medications Medication Instructions Recorded Confirmed insulin aspart U-100 100 unit/mL See Rx Instructions .Route .COMPLEX 12/19/22 01/23/23 (3 mL) subcutaneous pen (Novolog FlexPen U-100 Insulin aspart) insulin glargine 100 unit/mL (3 20 unit subcut DAILY 12/19/22 01/23/23 mL) subcutaneous pen (Lantus Solostar U-100 Insulin) pantoprazole 40 mg tablet,delayed 40 mg PO DAILY@0630 12/19/22 01/23/23 release (Protonix) acetaminophen 325 mg tablet 650 mg PO Q6H PRN Pain 01/23/23 01/23/23 gabapentin 300 mg capsule 300 mg PO BID 01/23/23 01/23/23 promethazine 25 mg tablet 25 mg PO TID PRN nausea/vomiting 01/23/23 01/23/23 Previous Rx's Medication Instructions Recorded dicyclomine 20 mg tablet 20 mg PO QID #60 tabs 01/23/23 cvmvlopsk-bqnwhzpao-dfvfbset-scop 1 tab PO BID PRN Nausea, vomiting 01/23/23 16.2 mg-0.1037 mg-0.0194 mg tablet #14 tabs () promethazine 25 mg tablet 25 mg PO TID PRN nausea and 03/11/23 vomiting #20 tabs cyclobenzaprine 10 mg tablet 10 mg PO TID PRN muscle spasm #14 03/16/23 tabs lidocaine 5 % topical patch 1 patch topical DAILY #15 ea 03/16/23 naproxen 500 mg tablet 500 mg PO BID PRN pain #20 tabs 03/16/23 ondansetron 4 mg disintegrating 4 mg PO Q8H PRN nausea and 08/24/23 tablet vomiting #20 tabs cyclobenzaprine 10 mg tablet 10 mg PO BEDTIME PRN muscle spasm 05/04/23 #7 tabs ketorolac 10 mg tablet 10 mg PO TID PRN pain 5 days #15 05/04/23 tabs lidocaine 5 % topical patch 1 patch topical DAILY PRN pain #15 05/04/23 ea ondansetron 4 mg disintegrating 4 mg PO Q8H PRN nausea and 05/18/23 tablet vomiting #20 tabs Allergies Allergy/AdvReac Type Severity Reaction Status Date / Time diphenhydramine Allergy Anaphylaxis Verified 05/18/23 10:28 [From Benadryl] haloperidol [From Haldol] Allergy Difficulty Verified 05/18/23 10:28 Swallowing Review of Systems Review of Systems: Constitutional : No Weight loss, No Fever, No Chills, No Night Sweats, No Fatigue, No Malaise ENT/Mouth : No Hearing loss, No Ear Pain, No Nasal Congestion, No Sinus Pain, No Hoarseness, No sore throat, No Rhinorrhea, No Swallowing Difficulty Eyes: No Eye Pain, No Swelling, No Redness, No Foreign Body, No Discharge, No Vision Changes Cardiovascular : No Chest Pain, No SOB, No Dyspnea on Exertion, No Orthopnea, No Edema, No Palpitations Respiratory : No Cough, No Sputum, No Wheezing, No Smoke Exposure, No Dyspnea Gastrointestinal : No Nausea, No Vomiting, No Diarrhea, No Constipation, No abdominal Pain, No Hematochezia, No Melena Genitourinary : no irregular bleeding, No Dysuria, No Urinary Frequency, No Hematuria, No Urinary Incontinence, No Urgency, No Flank Pain, No Urinary Flow Changes, No Hesitancy Musculoskeletal : Complaining of anterior thigh pain/skin burning sensation about erythema or rash Skin : No Skin Lesions, No rash Neuro : No Weakness, No Numbness, No Paresthesias, No Loss of Consciousness, No Dizziness, No Headache Psych : No Anxiety/Panic, No Depression, No SI/HI/AH/VH, No Social Issues, Heme/Lymph: No Bruising, No Bleeding,No Lymphadenopathy Endocrine : No Polyuria, No Polydipsia, No Temperature Intolerance PMFSH Past Medical History 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 Social History Social History Household Members: Other Household Members Other:: cousin Housing: House Do you presently have visiting nurse or other home services: No Alcohol intake: former Patient Tobacco Use Status: Current everyday Tobacco user Tobacco use type: Cigarette Cigarette Packs Per Day: 0 Cigarettes Per Day: 0 Years Smoked: 10 Smoked in Last 30 Days: Yes e-Cigarette/Vaping Use: Never Used Second Hand Smoke Exposure: No Use of substances other than those prescribed or required for medical reasons: Yes Substance Use Type: Marijuana Advance Directives: No Advance Directives Information Provided: Yes service: No Current occupational status: employed Physical Exam Vital Signs: Vital Signs: Last Vital Signs Temp 98.4 F 05/27/23 02:33 Pulse 98 05/27/23 02:33 BP 118/81 05/27/23 02:33 Pulse Ox 98 05/27/23 02:33 BMI result Body Mass Index 20.5 Const: Other: Appearance: Alert. Oriented X3. No acute distress. Eyes: Pupils equal, round and reactive to light. ENT: Pharynx normal. Neck: Normal inspection. Neck supple. No lymph nodes noted. No crepitus CVS: Normal heart rate and rhythm. Pulses normal. Normal S1 and S2 Respiratory: No respiratory distress. Breath sounds normal. No Wheezing. No rales Abdomen: Soft and nontender. No rigidity. No distention. Skin: Skin warm and dry. Normal skin color. Normal skin turgor. Extremities: No lower extremity edema. No Lacerations. No Rash, pain to palpation over the anterior aspect of the thighs Neuro: Oriented X 3. No motor deficit. No sensory deficit. Moving all extremities. No slurred speech. CN 2 through 12 grossly intact Psych: calm, cooperative, normal affect Course Course Course Narrative: -all patient's labs pending Medical Decision Making Medical Decision Making MDM Narrative: -I was informed by the patient's nurse that the patient walked out just after I saw the patient, patient stated that he got a phone call, has a family emergency and needed to leave immediately Discharge Plan Discharge Clinical Impression: Leg pain Patient Disposition: Elopement Prescriptions: No Action insulin aspart U-100 [Novolog FlexPen U-100 Insulin] 100 unit/mL (3 mL) insulin pen See Rx Instructions .ROUTE .COMPLEX Rx Instructions: 1 unit of insulin for every 35 units over 135 insulin glargine [Lantus Solostar U-100 Insulin] 100 unit/mL (3 mL) insulin pen 20 unit subcut DAILY pantoprazole [Protonix] 40 mg tablet,delayed release (DR/EC) 40 mg PO DAILY@0630 promethazine 25 mg tablet 25 mg PO TID PRN (Reason: nausea/vomiting) gabapentin 300 mg capsule 300 mg PO BID acetaminophen 325 mg Tablet 650 mg PO Q6H PRN (Reason: Pain) dicyclomine 20 mg tablet 20 mg PO QID Qty: 60 0RF Rx Instructions: Take 30 minutes before eating, 30 minutes before bed vzpuwrvhj-egkqgv-mokrswjj-scop [] 16.2-0.1037 -0.0194 mg tablet 1 tab PO BID PRN (Reason: Nausea, vomiting) Qty: 14 0RF ondansetron 4 mg tablet,disintegrating 4 mg PO Q8H PRN (Reason: nausea and vomiting) Qty: 20 0RF ondansetron 4 mg tablet,disintegrating 4 mg PO Q8H PRN (Reason: nausea and vomiting) Qty: 20 0RF promethazine 25 mg tablet 25 mg PO TID PRN (Reason: nausea and vomiting) Qty: 20 0RF cyclobenzaprine 10 mg tablet 10 mg PO TID PRN (Reason: muscle spasm) Qty: 14 0RF lidocaine 5 % adhesive patch,medicated 1 patch topical DAILY Qty: 15 0RF Rx Instructions: leave on most painful area for up to 12 hrs naproxen 500 mg tablet 500 mg PO BID PRN (Reason: pain) Qty: 20 0RF ketorolac 10 mg tablet 10 mg PO TID PRN (Reason: pain) 5 Days Qty: 15 0RF cyclobenzaprine 10 mg tablet 10 mg PO BEDTIME PRN (Reason: muscle spasm) Qty: 7 0RF lidocaine 5 % adhesive patch,medicated 1 patch topical DAILY PRN (Reason: pain) Qty: 15 0RF Rx Instructions: leave on most painful area for up to 12 hrs
--- NOTE | 2023-05-27 02:56 | PC.NURSE ---
pt left [facility] without staying to sign appropriate documents due to an emergency with his friend. Educated on the importance of returning if worse and /or following up with his PCP tomorrow. Provider made aware
== END 2023-05-27 02:58 | disposition left against medical advice (07) ==
PROVIDERS: Emergency Provider Emergency Medicine
DX: M79.605 Pain in left leg (principal); M79.604 Pain in right leg; E10.8 Type 1 diabetes mellitus with unspecified complications; F17.210 Nicotine dependence, cigarettes, uncomplicated; Z79.4 Long term (current) use of insulin; Z79.899 Other long term (current) drug therapy
CPT/HCPCS: 99283; 99284

== ENCOUNTER 2023-05-29 15:11 | Emergency (ER) | payer MEDICAID, SELFPAY ==
[2023-05-29 16:04] VITALS: BP 110/82; PULSE 97; RESP 16; TEMP 36.7; O2SAT 99; BMI 19.7
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
== END 2023-05-29 18:43 | disposition left against medical advice (07) ==
PROVIDERS: Emergency Provider Emergency Medicine
DX: S06.0X0A Concussion without loss of consciousness, initial encounter (principal); R51.9 Headache, unspecified; F17.210 Nicotine dependence, cigarettes, uncomplicated; M54.2 Cervicalgia; X58.XXXA Exposure to other specified factors, initial encounter; Y93.9 Activity, unspecified; Y92.9 Unspecified place or not applicable; Y99.0 Civilian activity done for income or pay; Z79.4 Long term (current) use of insulin; Z79.899 Other long term (current) drug therapy; Z71.6 Tobacco abuse counseling
CPT/HCPCS: 70450; 70486; 72125; 99282; 99284

== ENCOUNTER 2023-05-30 05:36 | Emergency (ER) | payer MEDICAID, SELFPAY ==
[2023-05-30 05:43] VITALS: BP 130/80; BP 138/89; PULSE 91; PULSE 95; RESP 16; O2SAT 98; BMI 18.1
[2023-05-30 06:08] LABS: Anion Gap 19 (12-20); Blood Urea Nitrogen 14 mg/dL (9-16); Calcium 10.4 mg/dL (8.4-10.2); Carbon Dioxide 23 mmol/L (22-29); Chloride 104 mmol/L (96-108); Creatinine Clr Calc Pharmacy 128.5; Estimated Glomerular Filt Rate > 60; Glucose Random 111 mg/dL (60-115); Lipase 6 U/L (8-78); Potassium 3.8 mmol/L (3.3-5.1); Sodium 142 mmol/L (135-145)
[2023-05-30 06:14] VITALS: BP 119/77; PULSE 84; RESP 17; O2SAT 99
--- NOTE | 2023-05-30 06:20 | PC.NURSE ---
iv established; labs drawn; pt medicated per oct. vss. nsr on monitor 81 bpm. sats 98% on RA. respirations even and unlabored. warm blankets given; call brand within reach.
--- NOTE | 2023-05-30 06:54 | ED.GENADULT ---
HPI - General Adult General Chief complaint: General Medical Stated complaint: muscle spasms Time Seen by Provider: 05/30/23 06:40 Source: patient Mode of arrival: ambulatory Limitations: no limitations History of Present Illness HPI narrative: This is a 28-year-old male history of diabetes, Gates's esophagus, gastroparesis presenting to the emergency department for evaluation of bilateral back/ flank discomfort x3 days as well as headache localized to the left side of his head, describes as a constant pressure, he reports that yesterday he sustained a trauma to his head after being hit with a prompt to whom stone by a friend without loss of consciousness, not on blood thinners. Patient denies visual disturbances, nausea, vomiting, abdominal pain, chest pain, shortness of breath, fevers, chills Denies urinary/ bowel incontinence/retention, saddle paresthesias, difficulties with ambulation. Related Data Home Medications Medication Instructions Recorded Confirmed insulin aspart U-100 100 unit/mL See Rx Instructions .Route .COMPLEX 12/19/22 01/23/23 (3 mL) subcutaneous pen (Novolog FlexPen U-100 Insulin aspart) insulin glargine 100 unit/mL (3 20 unit subcut DAILY 12/19/22 01/23/23 mL) subcutaneous pen (Lantus Solostar U-100 Insulin) pantoprazole 40 mg tablet,delayed 40 mg PO DAILY@0630 12/19/22 01/23/23 release (Protonix) acetaminophen 325 mg tablet 650 mg PO Q6H PRN Pain 01/23/23 01/23/23 gabapentin 300 mg capsule 300 mg PO BID 01/23/23 01/23/23 promethazine 25 mg tablet 25 mg PO TID PRN nausea/vomiting 01/23/23 01/23/23 Previous Rx's Medication Instructions Recorded dicyclomine 20 mg tablet 20 mg PO QID #60 tabs 01/23/23 krwqobuoo-uenmwhita-etoortmw-scop 1 tab PO BID PRN Nausea, vomiting 01/23/23 16.2 mg-0.1037 mg-0.0194 mg tablet #14 tabs () promethazine 25 mg tablet 25 mg PO TID PRN nausea and 03/11/23 vomiting #20 tabs cyclobenzaprine 10 mg tablet 10 mg PO TID PRN muscle spasm #14 03/16/23 tabs lidocaine 5 % topical patch 1 patch topical DAILY #15 ea 03/16/23 naproxen 500 mg tablet 500 mg PO BID PRN pain #20 tabs 03/16/23 ondansetron 4 mg disintegrating 4 mg PO Q8H PRN nausea and 04/13/23 tablet vomiting #20 tabs cyclobenzaprine 10 mg tablet 10 mg PO BEDTIME PRN muscle spasm 05/04/23 #7 tabs ketorolac 10 mg tablet 10 mg PO TID PRN pain 5 days #15 05/04/23 tabs lidocaine 5 % topical patch 1 patch topical DAILY PRN pain #15 05/04/23 ea ondansetron 4 mg disintegrating 4 mg PO Q8H PRN nausea and 05/18/23 tablet vomiting #20 tabs cyclobenzaprine 10 mg tablet 10 mg PO BEDTIME PRN muscle spasm 05/30/23 #7 tabs lidocaine 5 % topical patch 1 patch topical DAILY PRN pain #15 05/30/23 ea Allergies Allergy/AdvReac Type Severity Reaction Status Date / Time diphenhydramine Allergy Anaphylaxis Verified 05/29/23 16:09 [From Benadryl] haloperidol [From Haldol] Allergy Difficulty Verified 05/29/23 16:09 Swallowing Review of Systems Review of Systems: Constitutional : No Weight loss, No Fever, No Chills, No Fatigue, No Malaise ENT/Mouth : No sore throat, No Rhinorrhea Eyes: No Eye Pain, No Swelling, No Redness Cardiovascular : No Chest Pain, No SOB, No Dyspnea on Exertion, No Orthopnea, No Edema, No Palpitations Respiratory : No Cough, No Sputum, No Wheezing Gastrointestinal : No Nausea, No Vomiting, No Diarrhea, No Constipation, No abdominal Pain, No Hematochezia, No Melena Genitourinary : No Dysuria, No Urinary Frequency, No Hematuria, Musculoskeletal : No joint pain, No Myalgias, No Joint Swelling, + back pain Skin : No Skin Lesions, No rash Neuro : No Weakness, No Numbness, No Dizziness, + Headache Psych : No Anxiety/Panic, No Depression All other systems reviewed and are negative Yes all other systems are reviewed and are negative PMFSH Past Medical History Attestation statement: The following information was validated with the patient. Source: old records reviewed and nursing notes reviewed Medical History Dental infection Abdominal pain Colitis DKA (diabetic ketoacidosis) Hyperglycemia 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 type 1 Social History Social History Household Members: Other Household Members Other:: cousin Housing: House Do you presently have visiting nurse or other home services: No Alcohol intake: former Patient Tobacco Use Status: Current everyday Tobacco user Tobacco use type: Cigarette Cigarette Packs Per Day: 0 Cigarettes Per Day: 0 Years Smoked: 10 e-Cigarette/Vaping Use: Never Used Second Hand Smoke Exposure: No Substance Use Type: Marijuana Advance Directives: No Advance Directives Information Provided: Yes service: No Current occupational status: employed Physical Exam ED Vital Signs: Vital Signs - 24 hr 05/30/23 05:43 05/30/23 06:14 05/30/23 07:30 Temperature 97.5 F Pulse Rate 91 84 Respiratory Rate 16 17 Blood Pressure 138/89 119/77 Pulse Oximetry 98 99 Oxygen Delivery Method Room Air Room Air 05/30/23 08:17 05/30/23 09:12 Temperature 98.5 F 98.4 F Pulse Rate 92 90 Respiratory Rate 12 18 Blood Pressure 128/77 119/74 Pulse Oximetry 100 99 Oxygen Delivery Method Room Air Room Air BMI result Body Mass Index 18.1 vss Appearance: Alert.? Oriented X3.? No acute distress.? Head: Normocephalic, atraumatic, no step-offs or deformities Eyes: Pupils equal, round and reactive to light.? Neck: Normal inspection.? Neck supple.? CVS: Normal heart rate and rhythm.? Pulses normal.? Respiratory: No respiratory distress.? Breath sounds normal.? Abdomen: Soft and nontender.? Skin: Skin warm and dry.? Normal skin color.? Normal skin turgor.? Extremities: No lower extremity edema.? No calf ttp. 5/5 strength to bilateral upper and lower extremities Back: No midline tenderness, no C-spine tenderness, full range of motion, no CVA tenderness bilaterally Neuro: Oriented X 3.? No motor deficit.? No sensory deficit. CN 2-12 intact. Normal finger to nose, heel to valenzuela, steady tandem gait w/ normal coordination. NIHSS- 0 GCS-15 Course Reevaluation(s) Reevaluation #1: Patient now reporting that he is having pain under his armpits in his chest, worse with deep breathing. Reports it is better with palpation. Based off patient history and physical exam very low suspicion for traumatic injury of chest there is no trauma to the chest, this is likely musculoskeletal pain. Unlikely ACS, PE, patient is PERC negative, saturating 99% on room air, not tachycardic or tachypneic. Time: 07:10 Reevaluation #2: patient's CBC with no acute findings appears to be around his baseline with a microcytic anemia. Chemistry no acute findings requiring intervention. Troponin and magnesium still pending, EKG is nonischemic. D-dimer pending. Patient is screaming out in pain, offered Tylenol however refusing he says he does not want that. Time: 08:27 Reevaluation #3: D-dimer negative , troponin negative. Patient is mad, demanding strong pain medicine I explained to him the need to take a stepwise approach we do not just jumped to narcotics he became angry, pulled his IV out, nursing went to go speak to him outside eye when outside we explained him that we need a urine to make sure he does not have a kidney stone and other tests patient states he does not care. Alert and oriented x4 time he left. Patient eloped the department and understands risks associated with leaving Time: 09:55 Medications Administered Discontinued Medications Generic Name Dose Route Start Last Admin Trade Name Wilfredo PRN Reason Stop Dose Admin Acetaminophen 650 mg 05/30/23 07:38 05/30/23 08:20 Acetaminophen 325 Mg Tablet PO 05/30/23 07:39 Not Given ONCE ONE Diazepam 5 mg 05/30/23 05:41 05/30/23 06:01 Diazepam 10 Mg/2 Ml Cartridge IVPUSH 05/30/23 05:42 5 mg STAT STA Administration Sodium Chloride 1,000 mls @ 999 mls/hr 05/30/23 05:41 05/30/23 07:01 Ns IV 05/30/23 06:41 Infused .Q1H1M ONE Infusion Ibuprofen 600 mg 05/30/23 05:46 05/30/23 06:01 Ibuprofen 600 Mg Tablet PO 05/30/23 05:47 600 mg ONCE ONE Administration Medical Decision Making Medical Decision Making [facility] Narrative: 0655 28 year old male presents w/ b/l flank spasms x 3 days and facial pain s/p being hit w/ a tombstone yesterday. PE benign (GCS-15, NIHSS-0) This is likely concussion versus post concussive syndrome versus closed head injury. Unlikely stroke, posterior stroke. Flank pain likely muscle spasms, unlikely pyelonephritis, obstructing uropathy, cauda equina, epidural abscess. No UTI symptoms. Unlikely UTI or cystitis. Low suspicion for metabolic derangements. To note Upon chart review, patient was seen here yesterday 05/29/23 where he left without completing treatment, patient reports that he was working when a co-worker hit him in the head with a foam and would tumor stone type product. Reports no loss of consciousness. He was requesting work clearance yesterday. No red flag symptoms. Patient got a CT head, cervical spine, facial bones all of which were unremarkable. No acute intracranial abnormality. No acute osseous abnormality within the cervical spine. No acute osseous abnormality within the maxillofacial region. plan at this time will discharge him home with supportive measures on concussion/ postconcussive syndrome. Educated patient on diagnosis and treatment plan, answered all question, patient verbalizes understanding. At this time patient will be discharged home, advised to return with new or worsening symptoms. Educated on worrisome signs and symptoms and when to return. At this time I feel comfortable discharge home. Differential Diagnosis Differential Diagnoses: The differential diagnosis associated with the presentation includes To note Upon chart review, patient was seen here yesterday 05/29/23 where he left without completing treatment, patient reports that he was working when a co-worker hit him in the head with a foam and would tumor stone type product. Reports no loss of consciousness. He was requesting work clearance yesterday. No red flag symptoms. Patient got a CT head, cervical spine, facial bones all of which were unremarkable. No acute intracranial abnormality. No acute osseous abnormality within the cervical spine. No acute osseous abnormality within the maxillofacial region. Admission/Observation Consideration of admission/observation: Escalation of care including admission/observation considered unlikely Lab Data MDM Lab Attestation statement: I reviewed the patient's lab results. 05/30/23 05:50 05/30/23 05:50 Labs: Lab Results 05/30/23 05/30/23 05/30/23 Range/Units 05:50 08:13 08:33 WBC 6.9 (4.8-10.8) X10*3/uL RBC 5.19 (4.60-5.80) X10*6/uL Hgb 13.5 L (14.0-18.0) g/dl Hct 41.0 L (42.0-52.0) % MCV 79.0 L (80.0-98.0) fL MCH 26.0 L (27.0-33.0) pg MCHC 32.9 (31.0-36.0) g/dl RDW 14.6 (11.0-16.0) % Plt Count 292 (160-400) X10*3/uL MPV 9.8 (9.4-12.4) fL Immature Gran % (Auto) 0.1 (0.0-0.4) % Neut % (Auto) 65.5 (45-73) % Lymph % (Auto) 27.2 (20-40) % [place] % (Auto) 5.5 (2-11) % Eos % (Auto) 1.3 (0-4) % Baso % (Auto) 0.4 (0-2) % Lymph # (Auto) 1.9 (1.2-4.9) X10*3/uL [place] # (Auto) 0.4 (0.1-1.2) X10*3/uL Eos # (Auto) 0.1 (0.0-0.4) X10*3/uL Baso # (Auto) 0.0 (0.0-0.2) X10*3/uL Abs Immat Gran (auto) 0.01 (0.00-0.03) X10*3/uL Absolute Neuts (auto) 4.5 (2.0-8.3) x10*3/uL Absolute Nucleated RBC 0.000 (0.0-0.012) X10*3/uL Nucleated RBC % (auto) 0.0 (0.0-0.2) /100WBC D-Dimer High Sensitivty < 150 NG/ML Sodium 142 (135-145) mmol/L Potassium 3.8 D (3.3-5.1) mmol/L Chloride 104 (96-108) mmol/L Carbon Dioxide 23 (22-29) mmol/L Anion Gap 19 (12-20) BUN 14 (9-16) mg/dL Creatinine 0.74 (0.5-1.4) mg/dL Estim Creat Clear Calc 128.5 Estimated GFR > 60 Random Glucose 111 (60-115) mg/dL Calcium 10.4 H (8.4-10.2) mg/dL Magnesium 1.9 (1.6-2.6) mg/dL Troponin I High Sens < 2.7 (<3.5-35.0) ng/L Lipase 6 L (8-78) U/L Ethyl Alcohol < 10 mg/dL External Record Review External record reviewed: Inpatient record, Outpatient record, Prior outpatient labs, Prior outpatient radiology and Primary care record Chronic Conditions Patient?s care impacted by: Diabetes Social Determinants Patient?s care significantly limited by Social Determinants of Health including: Other Social Determinant of Health Discharge Plan Discharge Clinical Impression: Lumbar paraspinal muscle spasm, Post concussion syndrome Patient Disposition: Elopement Instructions: Post Concussion Syndrome (ED), Muscle Spasm (ED) Additional Instructions: Take your medications as prescribed. If you were prescribed antibiotics today, it is important that you take your medication to their entirety, do not skip any doses, do not finish them early. Follow-up with your primary care provider this week. Return to the emergency department with new or worsening symptoms. Such as fevers, chills, chest pain, shortness of breath, nausea, vomiting, dizziness, headache, vision changes, lethargy In case of emergency call 911 Prescriptions: New cyclobenzaprine 10 mg tablet 10 mg PO BEDTIME PRN (Reason: muscle spasm) Qty: 7 0RF lidocaine 5 % adhesive patch,medicated 1 patch topical DAILY PRN (Reason: pain) Qty: 15 0RF Rx Instructions: leave on most painful area for up to 12 hrs No Action insulin aspart U-100 [Novolog FlexPen U-100 Insulin] 100 unit/mL (3 mL) insulin pen See Rx Instructions .ROUTE .COMPLEX Rx Instructions: 1 unit of insulin for every 35 units over 135 insulin glargine [Lantus Solostar U-100 Insulin] 100 unit/mL (3 mL) insulin pen 20 unit subcut DAILY pantoprazole [Protonix] 40 mg tablet,delayed release (DR/EC) 40 mg PO DAILY@0630 promethazine 25 mg tablet 25 mg PO TID PRN (Reason: nausea/vomiting) gabapentin 300 mg capsule 300 mg PO BID acetaminophen 325 mg Tablet 650 mg PO Q6H PRN (Reason: Pain) dicyclomine 20 mg tablet 20 mg PO QID Qty: 60 0RF Rx Instructions: Take 30 minutes before eating, 30 minutes before bed orzibsueq-uwidjk-rzqnemxp-scop [] 16.2-0.1037 -0.0194 mg tablet 1 tab PO BID PRN (Reason: Nausea, vomiting) Qty: 14 0RF ondansetron 4 mg tablet,disintegrating 4 mg PO Q8H PRN (Reason: nausea and vomiting) Qty: 20 0RF ondansetron 4 mg tablet,disintegrating 4 mg PO Q8H PRN (Reason: nausea and vomiting) Qty: 20 0RF promethazine 25 mg tablet 25 mg PO TID PRN (Reason: nausea and vomiting) Qty: 20 0RF cyclobenzaprine 10 mg tablet 10 mg PO TID PRN (Reason: muscle spasm) Qty: 14 0RF lidocaine 5 % adhesive patch,medicated 1 patch topical DAILY Qty: 15 0RF Rx Instructions: leave on most painful area for up to 12 hrs naproxen 500 mg tablet 500 mg PO BID PRN (Reason: pain) Qty: 20 0RF ketorolac 10 mg tablet 10 mg PO TID PRN (Reason: pain) 5 Days Qty: 15 0RF cyclobenzaprine 10 mg tablet 10 mg PO BEDTIME PRN (Reason: muscle spasm) Qty: 7 0RF lidocaine 5 % adhesive patch,medicated 1 patch topical DAILY PRN (Reason: pain) Qty: 15 0RF Rx Instructions: leave on most painful area for up to 12 hrs Referrals: Physician,Unknown J [Primary Care Provider] - 2 days Stand Alone Forms: Work/School Release
[2023-05-30 07:30] VITALS: TEMP 36.4
[2023-05-30 08:17] VITALS: BP 128/77; PULSE 92; RESP 12; TEMP 36.9; O2SAT 100
[2023-05-30 09:12] VITALS: BP 119/74; PULSE 90; RESP 18; TEMP 36.9; O2SAT 99
--- NOTE | 2023-05-30 09:14 | PC.NURSE ---
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 pt verbalizes that he has 8/10 pain under both arm pits/ribs and it radiates towards back. pt requesting medication at this time as motrin administration prior did not provide any relief. will notify provider. call brand placed within reach.
--- NOTE | 2023-05-30 09:21 | PC.NURSE ---
provider aware of pain medication request at this time.
--- NOTE | 2023-05-30 09:58 | PC.NURSE ---
pt eloped from ED. pt was seen leaving facility/unresponsive when calling his name. this RN, two techs, 2 security, and provider spoke w/ pt. pt refused to come back in as provider would not provide him with his narcotic request. pt took IV out of his left extremity on his own. bleeding was controlled. pt refused to come back and be seen.
== END 2023-05-30 10:00 | disposition left against medical advice (07) ==
PROVIDERS: Emergency Medicine; Emergency Provider Student in an Organized Health Care Education/Training Program
DX: F07.81 Postconcussional syndrome (principal); M62.830 Muscle spasm of back; R07.89 Other chest pain; R10.9 Unspecified abdominal pain; M54.50 Low back pain, unspecified; R51.9 Headache, unspecified; F17.210 Nicotine dependence, cigarettes, uncomplicated; Z71.6 Tobacco abuse counseling; Z79.899 Other long term (current) drug therapy
CPT/HCPCS: 36415; 71045; 80048; 80307; 83690; 83735; 84484; 85025; 85379; 93005; 96361; 96374; 99284; 99285; J3360

== ENCOUNTER 2023-06-01 14:38 | Emergency (ER) | payer MEDICAID, SELFPAY ==
[2023-06-01 14:56] VITALS: BP 123/82; PULSE 83; RESP 18; TEMP 36.3; O2SAT 98; BMI 19.8
--- NOTE | 2023-06-01 15:02 | ED_ITS ---
HPI - Psych General Chief Complaint: Psychiatric Symptoms Stated Complaint: SEC12:HI W/PLAN/INTENT TOWARD SPECIFIC PERSON Time Seen by Provider: 06/01/23 15:01 Source: patient and EMS Mode of arrival: ambulatory Limitations: no limitations History of Present Illness HPI Narrative: 28-year-old male well-known to the emergency department with history of Gates's esophagus type 1 diabetes gastroparesis and multiple ER visits presents to the emergency department with homicidal ideation towards 1 person. He states he was at home got triggered about someone who has been affecting his family and he states he blacked out and had to talk to someone and went to see his PCP. He told his PCP what he was thinking of doing and was placed on a section 12 and is a inpatient bed search. Patient denies SI or HI at this time. MD complaint: homicidal ideation Related Data Home Medications Medication Instructions Recorded Confirmed insulin aspart U-100 100 unit/mL See Rx Instructions .Route .COMPLEX 12/19/22 06/01/23 (3 mL) subcutaneous pen (Novolog FlexPen U-100 Insulin aspart) insulin glargine 100 unit/mL (3 20 unit subcut DAILY 12/19/22 06/01/23 mL) subcutaneous pen (Lantus Solostar U-100 Insulin) pantoprazole 40 mg tablet,delayed 40 mg PO DAILY@0630 12/19/22 06/01/23 release (Protonix) promethazine 25 mg tablet 25 mg PO TID PRN nausea/vomiting 01/23/23 06/01/23 Previous Rx's Medication Instructions Recorded ketorolac 10 mg tablet 10 mg PO TID PRN pain 5 days #15 05/04/23 tabs Allergies Allergy/AdvReac Type Severity Reaction Status Date / Time diphenhydramine Allergy Anaphylaxis Verified 05/29/23 16:09 [From Benadryl] haloperidol [From Haldol] Allergy Difficulty Verified 05/29/23 16:09 Swallowing Review of Systems 2 Review of Systems: Review of systems: General: Patient denies any fever chills recent illness or falls Musculoskeletal: Denies back pain or body aches or other injuries HEENT: denies headache, runny nose, ear pain Respiratory: denies shortness of breath, cough Cardiovascular: no chest pain or palpitations : denies dysuria, frequency Abdomen: no nausea vomiting denies abdominal pain Extremities: no swelling, no pain Skin: no diaphoresis Yes all other systems are reviewed and are negative PMFSH Past Medical History Medical History Dental infection Abdominal pain Colitis DKA (diabetic ketoacidosis) Hyperglycemia 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 type 1 Social History Social History Household Members: Other Household Members Other:: cousin Housing: House Do you presently have visiting nurse or other home services: No Alcohol intake: former Patient Tobacco Use Status: Current everyday Tobacco user Tobacco use type: Cigarette Cigarette Packs Per Day: 0 Cigarettes Per Day: 0 Years Smoked: 10 e-Cigarette/Vaping Use: Never Used Second Hand Smoke Exposure: No Substance Use Type: Marijuana Advance Directives: No Advance Directives Information Provided: No service: No Current occupational status: employed Physical Exam 2 Vital Signs: Vital Signs: Last Vital Signs Temp 97.4 F 06/01/23 14:56 Pulse 83 06/01/23 14:56 Resp 18 06/01/23 14:56 BP 123/82 06/01/23 14:56 Pulse Ox 98 06/01/23 14:56 O2 Del Method Room Air 06/01/23 14:56 BMI result Body Mass Index 19.8 General: Well-appearing well-nourished in no signs of distress HEENT: Normocephalic atraumatic Neck: No signs of JVD, no masses no tenderness or lymphadenopathy Cardiovascular: Regular rate and rhythm Respiratory: Clear to auscultation bilaterally Abdomen: Soft nontender no masses rectal exam performed guiac negative quality 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 Extremities: Normal pedal pulses no signs of edema Skin: Dry warm no rashes Back: No tenderness full ROM Course Course Course Narrative: Labs are all normal patient will be evaluated by crisis. Medical Decision Making Medical Decision Making MDM Narrative: I will hold the patient here in the ER to have patient but by behavioral health Differential Diagnosis Differential Diagnoses: The differential diagnosis associated with the presentation includes Suicidal ideation anxiety homicidal ideation Consult Healthcare Provider Management of the patient was discussed with: Behavioral Health Provider Lab Data MDM Lab Attestation statement: I reviewed the patient's lab results. 06/01/23 15:24 06/01/23 15:24 Labs: Lab Results 06/01/23 Range/Units 15:24 WBC 5.9 (4.8-10.8) X10*3/uL RBC 4.80 (4.60-5.80) X10*6/uL Hgb 12.7 L (14.0-18.0) g/dl Hct 38.9 L (42.0-52.0) % MCV 81.0 (80.0-98.0) fL MCH 26.5 L (27.0-33.0) pg MCHC 32.6 (31.0-36.0) g/dl RDW 14.7 (11.0-16.0) % Plt Count 270 (160-400) X10*3/uL MPV 10.0 (9.4-12.4) fL Immature Gran % (Auto) 0.2 (0.0-0.4) % Neut % (Auto) 63.1 (45-73) % Lymph % (Auto) 27.8 (20-40) % [place] % (Auto) 6.1 (2-11) % Eos % (Auto) 2.0 (0-4) % Baso % (Auto) 0.8 (0-2) % Lymph # (Auto) 1.6 (1.2-4.9) X10*3/uL [place] # (Auto) 0.4 (0.1-1.2) X10*3/uL Eos # (Auto) 0.1 (0.0-0.4) X10*3/uL Baso # (Auto) 0.1 (0.0-0.2) X10*3/uL Abs Immat Gran (auto) 0.01 (0.00-0.03) X10*3/uL Absolute Neuts (auto) 3.7 (2.0-8.3) x10*3/uL Absolute Nucleated RBC 0.000 (0.0-0.012) X10*3/uL Nucleated RBC % (auto) 0.0 (0.0-0.2) /100WBC Sodium 138 (135-145) mmol/L Potassium 3.9 (3.3-5.1) mmol/L Chloride 104 (96-108) mmol/L Carbon Dioxide 24 (22-29) mmol/L Anion Gap 14 (12-20) BUN 12 (9-16) mg/dL Creatinine 0.77 (0.5-1.4) mg/dL Estim Creat Clear Calc 134.9 Estimated GFR > 60 Random Glucose 231 H (60-115) mg/dL Calcium 9.6 D (8.4-10.2) mg/dL Total Bilirubin 0.4 (0.0-1.0) mg/dL Direct Bilirubin 0.1 (0.0-0.5) mg/dL AST 30 (5-37) U/L ALT 27 (0-40) U/L Alkaline Phosphatase 61 (39-117) U/L Total Protein 7.0 (6.5-8.0) g/dL Albumin 4.2 (3.5-5.0) g/dL Lipase 5 L (8-78) U/L Urine Color Dark Yellow Urine Appearance Clear Urine pH 6.5 (5.0-9.0) Ur Specific [place] >= 1.030 H (1.005-1.025) Urine Protein 100 (2+) H (Neg-Trace) mg/dL Urine Glucose (UA) 100 H (Negative) mg/dL Urine Ketones Trace (Negative) mg/dL Urine Blood Negative (Negative) Urine Nitrite Negative (Negative) Ur Leukocyte Esterase Negative (Negative) Urine RBC 0-2 (0-2) /HPF Urine WBC 0-5 (0-5) /HPF Ur Squamous Epith Cells 0-2 (0-2) /HPF Urine Bacteria None Seen (None Seen) Hyaline Casts 3-5 (0-2) /LPF Salicylates < 5.0 L (15-30) mg/dL Urine Opiates Screen Not Detected (Not Detect) Urine Fentanyl Screen Not Detected (Not Detect) Acetaminophen < 17 (<30) mcg/mL Ur Barbiturates Screen Not Detected (Not Detect) Ur Phencyclidine Scrn Not Detected (Not Detect) Ur Amphetamines Screen Not Detected (Not Detect) U Benzodiazepines Scrn POSITIVE H (Not Detect) Urine Cocaine Screen Not Detected (Not Detect) U Marijuana (THC) Screen POSITIVE H (Not Detect) Ethyl Alcohol < 10 mg/dL External Record Review External record reviewed: Inpatient record and Outpatient record Social Determinants Patient?s care significantly limited by Social Determinants of Health including: Inadequate housing, Low income, Alcoholism and drug addiction in family and Problems related to primary support group Discharge Plan Discharge Clinical Impression: Diabetes mellitus type 1, Homicidal ideation Patient Disposition: Still a Patient Prescriptions: No Action insulin aspart U-100 [Novolog FlexPen U-100 Insulin] 100 unit/mL (3 mL) insulin pen See Rx Instructions .ROUTE .COMPLEX Rx Instructions: 1 unit of insulin for every 35 units over 135 insulin glargine [Lantus Solostar U-100 Insulin] 100 unit/mL (3 mL) insulin pen 20 unit subcut DAILY pantoprazole [Protonix] 40 mg tablet,delayed release (DR/EC) 40 mg PO DAILY@0630 promethazine 25 mg tablet 25 mg PO TID PRN (Reason: nausea/vomiting) ketorolac 10 mg tablet 10 mg PO TID PRN (Reason: pain) 5 Days Qty: 15 0RF Interventions: [place]-Suicide Risk Severity Scale Last Done: 06/01/23 16:55
[2023-06-01 15:29] LABS: MANUAL DIFF FLAG NO
[2023-06-01 15:34] LABS: Appearance Urine Clear; Basophils Absolute Auto 0.1 X10*3/uL (0.0-0.2); Basophils Percent Auto 0.8 % (0-2); Color Urine Dark Yellow; Eosinophils Absolute Auto 0.1 X10*3/uL (0.0-0.4); Glucose Urine UA 100 mg/dL (Negative); Hematocrit 38.9 % (42.0-52.0); Hemoglobin 12.7 g/dl (14.0-18.0); Imm Gran Abs Auto 0.01 X10*3/uL (0.00-0.03); Imm Gran Pct Auto 0.2 % (0.0-0.4); Leukocyte Esterase Urine Negative (Negative); Lymphocytes Absolute Auto 1.6 X10*3/uL (1.2-4.9); Lymphocytes Percent Auto 27.8 % (20-40); Mean Corpuscular HGB Conc 32.6 g/dl (31.0-36.0); Mean Corpuscular Hemoglobin 26.5 pg (27.0-33.0); Monocytes Absolute Auto 0.4 X10*3/uL (0.1-1.2); Monocytes Percent Auto 6.1 % (2-11); Neutrophils Absolute Auto 3.7 x10*3/uL (2.0-8.3); Neutrophils Percent Auto 63.1 % (45-73); Nitrite Urine Negative (Negative); PH 6.5 (5.0-9.0); Platelet Count 270 X10*3/uL (160-400); Red Cell Distribution Width 14.7 % (11.0-16.0); Specific Gravity - Urine >= 1.030 (1.005-1.025); UMIC TRIGGER UACC YES; Urine Blood Negative (Negative); Urine Ketones Trace mg/dL (Negative); Urine Protein 100 (2+) mg/dL (Neg-Trace); White Blood Count 5.9 X10*3/uL (4.8-10.8)
[2023-06-01 15:38] LABS: Bacteria Urine None Seen (None Seen); RBC Urine 0-2 /HPF (0-2); Squamous Epithelial Cell Urine 0-2 /HPF (0-2); WBC Urine 0-5 /HPF (0-5)
[2023-06-01 15:40] LABS: Amphetamine Screen Urine Not Detected (Not Detect); Barbiturates, Urine Not Detected (Not Detect); Benzodiazepines Screen Urine POSITIVE (Not Detect); Cannabinoid Screen Urine POSITIVE (Not Detect); Cocaine Screen Urine Not Detected (Not Detect); Fentanyl, urine Not Detected (Not Detect); Opiate Screen Urine Not Detected (Not Detect); Phencyclidine Screen Urine Not Detected (Not Detect)
[2023-06-01 15:48] LABS: Acetaminophen LAB < 17 mcg/mL (<30); Alanine Aminotransferase 27 U/L (0-40); Albumin Level 4.2 g/dL (3.5-5.0); Alkaline Phosphatase 61 U/L (39-117); Anion Gap 14 (12-20); Aspartate Amino Transferase 30 U/L (5-37); Bilirubin Direct 0.1 mg/dL (0.0-0.5); Bilirubin Total 0.4 mg/dL (0.0-1.0); Blood Urea Nitrogen 12 mg/dL (9-16); Calcium 9.6 mg/dL (8.4-10.2); Carbon Dioxide 24 mmol/L (22-29); Chloride 104 mmol/L (96-108); Creatinine Clr Calc Pharmacy 134.9; Estimated Glomerular Filt Rate > 60; Ethanol < 10 mg/dL; Glucose Random 231 mg/dL (60-115); Lipase 5 U/L (8-78); Potassium 3.9 mmol/L (3.3-5.1); Sodium 138 mmol/L (135-145)
[2023-06-01 16:07] LABS: Salicylate < 5.0 mg/dL (15-30)
--- NOTE | 2023-06-01 16:57 | PC.NURSE ---
Bradford was BIBA on a section 12 after he made concerning statements at an appointment mentioning HI he was experiencing with a particular target and plan involving a soboba bar. On admission Bradford was calm and cooperative. He reports he is a type 1 diabetic and has a glucose monitoring sensor to the back of his L arm. Bradford does not have the device with him to view his results and reports feeling anxious about not monitoring his BS constantly. Med Rec completed and MD aware. Bradford reports he takes sliding scale based on his BS and utilizes 1U per every 35 points his BS is above 135. Denies SI/HI/AVH and verbalized he was angry and said some stupid stuff .
[2023-06-01 18:52] LABS: Glucose, Whole Blood 279 mg/dL (60-115)
[2023-06-01] MEDS: Insulin Lispro 100 UNIT/ML 3 ML VIAL SUBCUT ×2 (18:57→21:40)
[2023-06-01 21:11] LABS: Glucose, Whole Blood 229 mg/dL (60-115)
[2023-06-01 21:15] VITALS: BP 122/86; PULSE 76; RESP 18; TEMP 36.6; O2SAT 99
[2023-06-01] MEDS: Melatonin 3 MG TABLET 6 MG PO (22:16)
[2023-06-02] MEDS: LORazepam 1 MG TABLET PO (00:30)
--- NOTE | 2023-06-02 07:05 | PC.NURSE ---
Patient slept through the night, no distress observed/reported, struggle to fall sleep Melatonin 6 mg at 2216 and ativan 1 mg po at 0030 with + effect, POC at 2103 was 229 covered with 4 units, patient was presented from [facility] pending dispo/[facility] will come again to do MSU, labs completed/resulted, will continue to monitor
[2023-06-02 07:19] LABS: Glucose, Whole Blood 200 mg/dL (60-115)
--- NOTE | 2023-06-02 07:43 | PC.NURSE ---
patient appears to remain asleep at present respirations are even and unlabored patient appears in no distress
[2023-06-02 08:47] LABS: COVID-19 Test Negative (Negative); IDNOW Serial# BCCEAD1C
[2023-06-02] MEDS: Insulin Lispro 100 UNIT/ML 3 ML VIAL SUBCUT ×2 (09:19→12:35)
[2023-06-02 10:22] VITALS: BP 113/78; PULSE 90; RESP 16; TEMP 36.2; O2SAT 99
[2023-06-02 13:04] LABS: Glucose, Whole Blood 207 mg/dL (60-115)
--- NOTE | 2023-06-02 16:20 | PM.PSYCN ---
History of Present Illness Chief Complaint: SEC12:HI W/PLAN/INTENT TOWARD SPECIFIC PERSON [facility]LY [facility] Medical History Dental infection Abdominal pain Colitis DKA (diabetic ketoacidosis) Hyperglycemia 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 type 1 Diagnostics Vital Signs (24Hr): Vital Signs - 24 hr 06/01/23 21:15 06/02/23 10:22 Temperature 98 F 97.2 F Pulse Rate 76 90 Respiratory Rate 18 16 Blood Pressure 122/86 113/78 Pulse Oximetry 99 99 Oxygen Delivery Method Room Air Room Air BMI result Body Mass Index 19.8 Labs 06/01/23 15:24 06/01/23 15:24 Labs: Laboratory Results - last 48 hr 06/01/23 06/01/23 06/01/23 15:24 18:47 21:04 WBC 5.9 RBC 4.80 Hgb 12.7 L Hct 38.9 L MCV 81.0 MCH 26.5 L MCHC 32.6 RDW 14.7 Plt Count 270 MPV 10.0 Immature Gran % (Auto) 0.2 Neut % (Auto) 63.1 Lymph % (Auto) 27.8 [place] % (Auto) 6.1 Eos % (Auto) 2.0 Baso % (Auto) 0.8 Lymph # (Auto) 1.6 [place] # (Auto) 0.4 Eos # (Auto) 0.1 Baso # (Auto) 0.1 Abs Immat Gran (auto) 0.01 Absolute Neuts (auto) 3.7 Absolute Nucleated RBC 0.000 Nucleated RBC % (auto) 0.0 Sodium 138 Potassium 3.9 Chloride 104 Carbon Dioxide 24 Anion Gap 14 BUN 12 Creatinine 0.77 Estim Creat Clear Calc 134.9 Estimated GFR > 60 POC Glucose 279 H 229 H Random Glucose 231 H Calcium 9.6 D Total Bilirubin 0.4 Direct Bilirubin 0.1 AST 30 ALT 27 Alkaline Phosphatase 61 Total Protein 7.0 Albumin 4.2 Lipase 5 L Urine Color Dark Yellow Urine Appearance Clear Urine pH 6.5 Ur Specific [place] >= 1.030 H Urine Protein 100 (2+) H Urine Glucose (UA) 100 H Urine Ketones Trace Urine Blood Negative Urine Nitrite Negative Ur Leukocyte Esterase Negative Urine RBC 0-2 Urine WBC 0-5 Ur Squamous Epith Cells 0-2 Urine Bacteria None Seen Hyaline Casts 3-5 Salicylates < 5.0 L Urine Opiates Screen Not Detected Urine Fentanyl Screen Not Detected Acetaminophen < 17 Ur Barbiturates Screen Not Detected Ur Phencyclidine Scrn Not Detected Ur Amphetamines Screen Not Detected U Benzodiazepines Scrn POSITIVE H Urine Cocaine Screen Not Detected U Marijuana (THC) Screen POSITIVE H Ethyl Alcohol < 10 COVID-19 ([facility]) COVID-19 Clin Com 06/02/23 06/02/23 06/02/23 06:52 08:07 12:49 WBC RBC Hgb Hct MCV MCH MCHC RDW Plt Count MPV Immature Gran % (Auto) Neut % (Auto) Lymph % (Auto) [place] % (Auto) Eos % (Auto) Baso % (Auto) Lymph # (Auto) [place] # (Auto) Eos # (Auto) Baso # (Auto) Abs Immat Gran (auto) Absolute Neuts (auto) Absolute Nucleated RBC Nucleated RBC % (auto) Sodium Potassium Chloride Carbon Dioxide Anion Gap BUN Creatinine Estim Creat Clear Calc Estimated GFR POC Glucose 200 H 207 H Random Glucose Calcium Total Bilirubin Direct Bilirubin AST ALT Alkaline Phosphatase Total Protein Albumin Lipase Urine Color Urine Appearance Urine pH Ur Specific [place] Urine Protein Urine Glucose (UA) Urine Ketones Urine Blood Urine Nitrite Ur Leukocyte Esterase Urine RBC Urine WBC Ur Squamous Epith Cells Urine Bacteria Hyaline Casts Salicylates Urine Opiates Screen Urine Fentanyl Screen Acetaminophen Ur Barbiturates Screen Ur Phencyclidine Scrn Ur Amphetamines Screen U Benzodiazepines Scrn Urine Cocaine Screen U Marijuana (THC) Screen Ethyl Alcohol COVID-19 ([facility]) Negative COVID-19 Clin Com See Note Medications Medications Current Medications Dextrose (Dextrose 50 % 25 Gm/50 Ml Syringe) 25 gm IVPUSH Q15M PRN; Protocol PRN Reason: per Hypoglycemia Standing Ord. Glucose (Glucose Gel 15 Gm Gel..Gram.) 15 gm PO Q15M PRN; Protocol PRN Reason: per Hypoglycemia Standing Ord. Insulin Human Lispro (Insulin Lispro 100 Unit/Ml 3 Ml Vial) 0 unit SUBCUT [facility]; Protocol Last Admin: 06/02/23 12:35 Dose: 4 unit Allergies Allergies Allergy/AdvReac Type Severity Reaction Status Date / Time diphenhydramine Allergy Anaphylaxis Verified 05/29/23 16:09 [From Benadryl] haloperidol [From Haldol] Allergy Difficulty Verified 05/29/23 16:09 Swallowing Assessment & Plan Total time managing care of this patient today ____ minutes.
== END 2023-06-02 17:15 | disposition home or self-care (01) ==
PROVIDERS: Emergency Provider Student in an Organized Health Care Education/Training Program
DX: E10.9 Type 1 diabetes mellitus without complications (principal); R45.850 Homicidal ideations; Z11.52 Encounter for screening for COVID-19; F17.210 Nicotine dependence, cigarettes, uncomplicated; F12.90 Cannabis use, unspecified, uncomplicated; Z79.4 Long term (current) use of insulin; Z79.899 Other long term (current) drug therapy
CPT/HCPCS: 36415; 80048; 80076; 80143; 80179; 80307; 81001; 82947; 83690; 85025; 87635; 99284

== ENCOUNTER 2023-06-04 05:04 | Emergency (ER) | payer MEDICAID, SELFPAY ==
[2023-06-04 05:13] VITALS: BP 137/93; PULSE 102; PULSE 108; RESP 16; TEMP 36.9; O2SAT 96; O2SAT 98; BMI 18.5
[2023-06-04 05:30] LABS: Glucose, Whole Blood 226 mg/dL (60-115)
[2023-06-04 05:32] LABS: Basophils Absolute Auto 0.1 X10*3/uL (0.0-0.2); Basophils Percent Auto 0.5 % (0-2); Eosinophils Absolute Auto 0.1 X10*3/uL (0.0-0.4); Eosinophils Percent Auto 0.5 % (0-4); Hematocrit 37.1 % (42.0-52.0); Hemoglobin 12.6 g/dl (14.0-18.0); Imm Gran Abs Auto 0.03 X10*3/uL (0.00-0.03); Imm Gran Pct Auto 0.3 % (0.0-0.4); Lymphocytes Absolute Auto 2.2 X10*3/uL (1.2-4.9); Lymphocytes Percent Auto 20.2 % (20-40); MANUAL DIFF FLAG NO; Mean Corpuscular Hemoglobin 25.8 pg (27.0-33.0); Mean Corpuscular Volume 75.9 fL (80.0-98.0); Mean Platelet Volume 9.4 fL (9.4-12.4); Monocytes Percent Auto 8.8 % (2-11); Neutrophils Absolute Auto 7.7 x10*3/uL (2.0-8.3); Neutrophils Percent Auto 69.7 % (45-73); Platelet Count 306 X10*3/uL (160-400); Red Blood Count 4.89 X10*6/uL (4.60-5.80); Red Cell Distribution Width 14.5 % (11.0-16.0); White Blood Count 11.1 X10*3/uL (4.8-10.8)
[2023-06-04 05:55] LABS: Alanine Aminotransferase 79 U/L (0-40); Albumin Level 4.4 g/dL (3.5-5.0); Alkaline Phosphatase 73 U/L (39-117); Anion Gap 19 (12-20); Aspartate Amino Transferase 238 U/L (5-37); Bilirubin Total 0.8 mg/dL (0.0-1.0); Blood Urea Nitrogen 11 mg/dL (9-16); Calcium 10.2 mg/dL (8.4-10.2); Carbon Dioxide 17 mmol/L (22-29); Chloride 103 mmol/L (96-108); Creatinine Clr Calc Pharmacy 119.9; Estimated Glomerular Filt Rate > 60; Glucose Random 237 mg/dL (60-115); Potassium 3.8 mmol/L (3.3-5.1); Sodium 135 mmol/L (135-145); Total Protein 7.5 g/dL (6.5-8.0)
[2023-06-04 06:30] VITALS: BP 113/72; PULSE 92; RESP 17; O2SAT 99
--- NOTE | 2023-06-04 06:49 | PC.NURSE ---
pt assessed reported he is agitated because he hasn't seen a dr and he thinks staff was making fun of him, reassured pt that he will be seen and no-one was laughing at him . Pt left AMA
--- NOTE | 2023-06-04 06:52 | PC.NURSE ---
pt was ambulatory gait steady
== END 2023-06-04 06:52 | disposition left against medical advice (07) ==
PROVIDERS: Emergency Provider Emergency Medicine
DX: R10.31 Right lower quadrant pain (principal); Z79.899 Other long term (current) drug therapy
CPT/HCPCS: 36415; 80053; 82947; 85025; 99283; 99284

== ENCOUNTER 2023-06-27 10:40 | Outpatient (REF) | payer MEDICAID, SELFPAY ==
[2023-06-27 12:15] LABS: Anion Gap 10 (12-20); Blood Urea Nitrogen 15 mg/dL (9-16); Calcium 9.7 mg/dL (8.4-10.2); Carbon Dioxide 27 mmol/L (22-29); Chloride 105 mmol/L (96-108); Estimated Glomerular Filt Rate > 60; Glucose Random 327 mg/dL (60-115); Potassium 4.4 mmol/L (3.3-5.1); Sodium 138 mmol/L (135-145)
== END 2023-06-27 10:41 | disposition home or self-care (01) ==
LOC: HO.HHCL 10:40
PROVIDERS: Visit Provider Emergency Medicine
DX: R10.9 Unspecified abdominal pain (principal); T79.6XXD Traumatic ischemia of muscle, subsequent encounter
CPT/HCPCS: 36415; 80048; 82550

== ENCOUNTER 2023-07-28 00:08 | Emergency (ER) | payer MEDICAID, SELFPAY ==
[2023-07-28 00:20] VITALS: BP 130/62; BP 160/100; PULSE 103; PULSE 99; RESP 22; TEMP 36.7; O2SAT 100; O2SAT 98; BMI 20.3
[2023-07-28 00:36] LABS: MANUAL DIFF FLAG NO
[2023-07-28 00:38] LABS: Basophils Absolute Auto 0.1 X10*3/uL (0.0-0.2); Basophils Percent Auto 0.7 % (0-2); Eosinophils Percent Auto 0.5 % (0-4); Hematocrit 44.4 % (42.0-52.0); Hemoglobin 14.4 g/dl (14.0-18.0); Imm Gran Abs Auto 0.02 X10*3/uL (0.00-0.03); Imm Gran Pct Auto 0.2 % (0.0-0.4); Lymphocytes Absolute Auto 1.8 X10*3/uL (1.2-4.9); Mean Corpuscular HGB Conc 32.4 g/dl (31.0-36.0); Mean Corpuscular Hemoglobin 25.4 pg (27.0-33.0); Mean Corpuscular Volume 78.4 fL (80.0-98.0); Mean Platelet Volume 10.1 fL (9.4-12.4); Monocytes Absolute Auto 0.4 X10*3/uL (0.1-1.2); Monocytes Percent Auto 4.3 % (2-11); Neutrophils Absolute Auto 6.4 x10*3/uL (2.0-8.3); Neutrophils Percent Auto 73.3 % (45-73); Platelet Count 279 X10*3/uL (160-400); Red Blood Count 5.66 X10*6/uL (4.60-5.80); Red Cell Distribution Width 13.2 % (11.0-16.0); White Blood Count 8.8 X10*3/uL (4.8-10.8)
[2023-07-28 00:53] LABS: Alanine Aminotransferase 14 U/L (0-40); Albumin Level 4.7 g/dL (3.5-5.0); Alkaline Phosphatase 87 U/L (39-117); Anion Gap 18 (12-20); Aspartate Amino Transferase 17 U/L (5-37); Bilirubin Total 0.8 mg/dL (0.0-1.0); Blood Urea Nitrogen 18 mg/dL (9-16); Calcium 10.5 mg/dL (8.4-10.2); Carbon Dioxide 22 mmol/L (22-29); Chloride 104 mmol/L (96-108); Creatinine Clr Calc Pharmacy 114.8; Estimated Glomerular Filt Rate > 60; Glucose Random 222 mg/dL (60-115); Lipase < 4 U/L (8-78); Potassium 4.2 mmol/L (3.3-5.1); Sodium 140 mmol/L (135-145); Total Protein 8.2 g/dL (6.5-8.0)
[2023-07-28 01:53] VITALS: BP 137/76; PULSE 94; RESP 18; TEMP 36.8; O2SAT 100
--- NOTE | 2023-07-28 01:53 | MHC.EDTECH ---
Hourly rounds and vitals completed,patient is tearful and having pain, RN Yudy made aware,call brand within reach
--- NOTE | 2023-07-28 02:01 | ECG_ITS ---
Test Reason : abd pain Blood Pressure : / mmHG Vent. Rate : 096 BPM Atrial Rate : 096 BPM P-R Int : 122 ms QRS Dur : 096 ms QT Int : 366 ms P-R-T Axes : 088 -07 059 degrees QTc Int : 462 ms Normal sinus rhythm Possible Left atrial enlargement Borderline ECG When compared with ECG of 30-MAY-2023 07:24, No significant change was found Referred By: Emilie Lyles Electronically Signed By:ABIODUN BENSON
--- NOTE | 2023-07-28 02:14 | ED_ITS ---
HPI - Abdominal Pain General Chief Complaint: Abdominal Pain Stated Complaint: abdominal pain Time Seen by Provider: 07/28/23 01:49 Source: patient Mode of arrival: EMS History of Present Illness HPI narrative: 28-year-old male who is type 1 diabetic presents with known history of gastroparesis and Gates's esophagus and states that yesterday he began having upper abdominal pain and then today began having episodes of nausea and vomiting. The patient denies that this is related to his gastroparesis but denies any additional GI or symptoms. Related Data Home Medications Medication Instructions Recorded Confirmed insulin aspart U-100 100 unit/mL See Rx Instructions .Route .COMPLEX 12/19/22 06/01/23 (3 mL) subcutaneous pen (Novolog FlexPen U-100 Insulin aspart) insulin glargine 100 unit/mL (3 20 unit subcut DAILY 12/19/22 06/01/23 mL) subcutaneous pen (Lantus Solostar U-100 Insulin) pantoprazole 40 mg tablet,delayed 40 mg PO DAILY@0630 12/19/22 06/01/23 release (Protonix) promethazine 25 mg tablet 25 mg PO TID PRN nausea/vomiting 01/23/23 06/01/23 Previous Rx's Medication Instructions Recorded ketorolac 10 mg tablet 10 mg PO TID PRN pain 5 days #15 05/04/23 tabs Allergies Allergy/AdvReac Type Severity Reaction Status Date / Time diphenhydramine Allergy Anaphylaxis Verified 07/28/23 00:19 [From Benadryl] haloperidol [From Haldol] Allergy Difficulty Verified 07/28/23 00:19 Swallowing Review of Systems Review of Systems Pertinent positives and negatives as stated in HPI [facility] Past Medical History Source: nursing notes reviewed Medical History Dental infection Abdominal pain Colitis DKA (diabetic ketoacidosis) Hyperglycemia 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 type 1 Social History Social History Household Members: Other Household Members Other:: cousin Housing: House Do you presently have visiting nurse or other home services: No Alcohol intake: current Alcohol intake frequency: a few times a month Patient Tobacco Use Status: Current everyday Tobacco user Tobacco use type: Cigarette Cigarette Packs Per Day: 0 Cigarettes Per Day: 0 Years Smoked: 10 e-Cigarette/Vaping Use: Never Used Second Hand Smoke Exposure: No Substance Use Type: Marijuana Advance Directives: No Advance Directives Information Provided: No service: No Current occupational status: employed Physical Exam ED Vital Signs: Vital Signs - 24 hr 07/28/23 00:20 07/28/23 01:53 Temperature 98.1 F 98.3 F Pulse Rate 103 H 94 Respiratory Rate 22 H 18 Blood Pressure 130/62 137/76 Pulse Oximetry 100 100 Oxygen Delivery Method Room Air Room Air BMI result Body Mass Index 20.3 VITAL SIGNS: Reviewed. GENERAL: Well developed, well nourished, in no acute distress. HEAD: Normocephalic/atraumatic EYES: PERRLA, EOMI EARS: Ext canals without abnormality NOSE: Nares patent bilateral OROPHARYNX: no oral lesions noted, posterior pharynx clear , dry mucosa NECK: Supple, no adenopathy LUNGS: Normal breath sounds. No adventitious sounds or accessory muscle use. SpO2<100> CARDIOVASCULAR: Regular rate and rhythm without noted murmurs ABDOMEN: Soft, upper abdominal discomfort, non-distended with bowel sounds. MUSCULOSKELETAL: No tenderness, deformities, or effusions noted on gross inspection. EXTREMITIES: No cyanosis, clubbing or edema. SKIN: Inspection of the skin reveals no rashes NEUROLOGIC: Alert and oriented x 4. Strength and sensation to light touch were grossly intact x 4. Medical Decision Making Medical Decision Making MDM Narrative: 28-year-old male with history and clinical presentation, DDX: Gastroparesis, gastritis/GERD, lower clinical suspicion for DKA are HHS. However, will initiate IV fluids in this patient, trend point of care glucose. Reviewed all investigations and hematologic indices are negative for leukocytosis there is a mild left shift, no anemia or thrombocytopenia. Chemistry indices do not demonstrated in JAZMIN and there is no electrolyte or liver enzyme abnormalities. Patient is noted be hyperglycemic but no evidence of metabolic acidosis or anion gap. Lipase is undetectable and beta hydroxybutyrate although elevated at 1.14 I suspect that this is more related to patient's hydration status. Patient received IV fluids, Reglan for suspected gastroparesis and Zofran for the nausea and vomiting. Signed out to Dr. Serna - re-evaluation Differential Diagnosis Differential Diagnoses: The differential diagnosis associated with the presentation includes Please see the discussion above Admission/Observation Consideration of admission/observation: Escalation of care including admission/observation considered Please see the discussion above Lab Data MDM Lab Attestation statement: I reviewed the patient's lab results. Please see the discussion above 07/28/23 00:33 07/28/23 00:33 Labs: Lab Results 07/28/23 Range/Units 00:33 WBC 8.8 (4.8-10.8) X10*3/uL RBC 5.66 (4.60-5.80) X10*6/uL Hgb 14.4 (14.0-18.0) g/dl Hct 44.4 (42.0-52.0) % MCV 78.4 L (80.0-98.0) fL MCH 25.4 L (27.0-33.0) pg MCHC 32.4 (31.0-36.0) g/dl RDW 13.2 (11.0-16.0) % Plt Count 279 (160-400) X10*3/uL MPV 10.1 (9.4-12.4) fL Immature Gran % (Auto) 0.2 (0.0-0.4) % Neut % (Auto) 73.3 H (45-73) % Lymph % (Auto) 21.0 (20-40) % [place] % (Auto) 4.3 (2-11) % Eos % (Auto) 0.5 (0-4) % Baso % (Auto) 0.7 (0-2) % Lymph # (Auto) 1.8 (1.2-4.9) X10*3/uL [place] # (Auto) 0.4 (0.1-1.2) X10*3/uL Eos # (Auto) 0.0 (0.0-0.4) X10*3/uL Baso # (Auto) 0.1 (0.0-0.2) X10*3/uL Abs Immat Gran (auto) 0.02 (0.00-0.03) X10*3/uL Absolute Neuts (auto) 6.4 (2.0-8.3) x10*3/uL Absolute Nucleated RBC 0.000 (0.0-0.012) X10*3/uL Nucleated RBC % (auto) 0.0 (0.0-0.2) /100WBC Sodium 140 (135-145) mmol/L Potassium 4.2 (3.3-5.1) mmol/L Chloride 104 (96-108) mmol/L Carbon Dioxide 22 (22-29) mmol/L Anion Gap 18 (12-20) BUN 18 H (9-16) mg/dL Creatinine 0.93 (0.5-1.4) mg/dL Estim Creat Clear Calc 114.8 Estimated GFR > 60 Random Glucose 222 H (60-115) mg/dL Calcium 10.5 H D (8.4-10.2) mg/dL Magnesium 2.1 (1.6-2.6) mg/dL Total Bilirubin 0.8 (0.0-1.0) mg/dL AST 17 (5-37) U/L ALT 14 (0-40) U/L Alkaline Phosphatase 87 (39-117) U/L Total Creatine Kinase 91 (38-174) U/L Total Protein 8.2 H (6.5-8.0) g/dL Albumin 4.7 (3.5-5.0) g/dL Lipase < 4 L (8-78) U/L Beta-Hydroxybutyrate 1.14 H (0.02-0.27) mmol/L Independent Interpretation I performed an independent interpretation of an: EKG Interpretation: Normal sinus rhythm, HR-96, no STEMI, PA/QRS/QTC is within normal limits. External Record Review External record reviewed: Outpatient record, Prior outpatient labs and Prior outpatient radiology Chronic Conditions Patient?s care impacted by: Diabetes Medications Administered Generic Name Dose Route Start Last Admin Trade Name Freq PRN Reason Stop Dose Admin Sodium Chloride 1,000 mls @ 999 mls/hr 07/28/23 02:00 07/28/23 02:22 Ns IV 07/28/23 03:00 999 mls/hr .Q1H1M JELENA Administration Discontinued Medications Generic Name Dose Route Start Last Admin Trade Name Freq PRN Reason Stop Dose Admin Metoclopramide HCl 10 mg 07/28/23 02:45 07/28/23 02:55 Metoclopramide Hcl 10 Mg/2 Ml Vial IVPUSH 07/28/23 02:46 10 mg ONCE ONE Administration Ondansetron HCl 4 mg 07/28/23 02:01 07/28/23 02:25 Ondansetron Hcl 4 Mg/2 Ml Vial IVPUSH 07/28/23 02:02 4 mg ONCE ONE Administration Critical Care Time Critical Care Time Critical Care Time: Yes Total Critical Care Time: 30 Attestation: I personally attest to this time spent taking care of the patient. Discharge Plan Discharge Clinical Impression: Gastroparesis Patient Disposition: Still a Patient Prescriptions: No Action insulin aspart U-100 [Novolog FlexPen U-100 Insulin] 100 unit/mL (3 mL) insulin pen See Rx Instructions .ROUTE .COMPLEX Rx Instructions: 1 unit of insulin for every 35 units over 135 insulin glargine [Lantus Solostar U-100 Insulin] 100 unit/mL (3 mL) insulin pen 20 unit subcut DAILY pantoprazole [Protonix] 40 mg tablet,delayed release (DR/EC) 40 mg PO DAILY@0630 promethazine 25 mg tablet 25 mg PO TID PRN (Reason: nausea/vomiting) ketorolac 10 mg tablet 10 mg PO TID PRN (Reason: pain) 5 Days Qty: 15 0RF
--- NOTE | 2023-07-28 02:15 | MHC.EDTECH ---
EKG completed per order.
[2023-07-28] MEDS: 0.9 % Sodium Chloride 1,000 ML 999 ML IV (02:22)
[2023-07-28] MEDS: ondansetron HCL 4 MG/2 ML VIAL IVPUSH (02:25)
[2023-07-28 02:40] LABS: Beta-Hydroxybutyrate 1.14 mmol/L (0.02-0.27); Magnesium 2.1 mg/dL (1.6-2.6)
[2023-07-28] MEDS: Metoclopramide HCl 10 MG/2 ML VIAL IVPUSH (02:55)
[2023-07-28 03:24] VITALS: BP 125/77; PULSE 84; RESP 19; TEMP 36.8; O2SAT 98
[2023-07-28 03:31] LABS: Appearance Urine Clear; Color Urine Yellow; Glucose Urine UA 500 mg/dL (Negative); Leukocyte Esterase Urine Negative (Negative); Nitrite Urine Negative (Negative); PH 7.5 (5.0-9.0); Specific Gravity - Urine >= 1.030 (1.005-1.025); UMIC TRIGGER UACC YES; Urine Blood Negative (Negative); Urine Ketones >=160 mg/dL (Negative); Urine Protein 100 (2+) mg/dL (Neg-Trace)
[2023-07-28 03:36] LABS: Bacteria Urine None Seen (None Seen); Hyaline Casts Urine 0-2 /LPF (0-2); Squamous Epithelial Cell Urine 0-2 /HPF (0-2); WBC Urine 0-5 /HPF (0-5)
--- NOTE | 2023-07-28 04:05 | PC.NURSE ---
Pt wants to leave as he feels better and wants to rest in his own bed. Educated on important of staying for further medical management however pt states that he wants to go. Pt signed ama form and left with her ride
== END 2023-07-28 04:20 | disposition left against medical advice (07) ==
PROVIDERS: Student in an Organized Health Care Education/Training Program; Emergency Provider Emergency Medicine
DX: R11.2 Nausea with vomiting, unspecified (principal); K31.84 Gastroparesis; R94.31 Abnormal electrocardiogram [ECG] [EKG]; Z79.899 Other long term (current) drug therapy; F17.200 Nicotine dependence, unspecified, uncomplicated; Z71.6 Tobacco abuse counseling
CPT/HCPCS: 36415; 80053; 81001; 82010; 82550; 83690; 83735; 85025; 93005; 96361; 96374; 96375; 99284; 99285; J2405; J2765

== ENCOUNTER → 2023-07-28 02:01 | Outpatient (BNV) | payer MEDICAID, SELFPAY | PROVIDERS: Emergency Provider Emergency Medicine; Visit Provider Internal Medicine | DX: R10.9 Unspecified abdominal pain (principal) | CPT/HCPCS: 93010 ==

== ENCOUNTER 2023-08-26 13:06 | Emergency (ER) | payer MEDICAID, SELFPAY ==
[2023-08-26 13:15] VITALS: BP 98/70; PULSE 66; O2SAT 100
[2023-08-26 13:17] VITALS: BP 133/84; PULSE 92; RESP 22; TEMP 36.6; O2SAT 100; BMI 18.6
--- NOTE | 2023-08-26 14:13 | ED.NAVMDI ---
HPI - Nausea/Vomiting/Diarrhea General Chief complaint: Abdominal Pain Stated complaint: high BS vomiting Time Seen by Provider: 08/26/23 13:29 Source: patient Mode of arrival: EMS History of Present Illness HPI Narrative: 28-year-old male arrives with complaints of multiple episodes of nausea and vomiting for a few days, denies any fevers or chills. Related Data Home Medications Medication Instructions Recorded Confirmed insulin aspart U-100 100 unit/mL See Rx Instructions .Route .COMPLEX 12/19/22 06/01/23 (3 mL) subcutaneous pen (Novolog FlexPen U-100 Insulin aspart) insulin glargine 100 unit/mL (3 20 unit subcut DAILY 12/19/22 06/01/23 mL) subcutaneous pen (Lantus Solostar U-100 Insulin) pantoprazole 40 mg tablet,delayed 40 mg PO DAILY@0630 12/19/22 06/01/23 release (Protonix) promethazine 25 mg tablet 25 mg PO TID PRN nausea/vomiting 01/23/23 06/01/23 Previous Rx's Medication Instructions Recorded ketorolac 10 mg tablet 10 mg PO TID PRN pain 5 days #15 05/04/23 tabs promethazine 25 mg tablet 25 mg PO TID PRN nausea and 08/26/23 vomiting #10 tabs Allergies Allergy/AdvReac Type Severity Reaction Status Date / Time diphenhydramine Allergy Anaphylaxis Verified 07/28/23 00:19 [From Benadryl] haloperidol [From Haldol] Allergy Difficulty Verified 07/28/23 00:19 Swallowing metoclopramide [From Reglan] AdvReac Anxiety Verified 08/26/23 14:54 Review of Systems Review of Systems: Pertinent positives and negatives as stated in HPI [facility] Past Medical History Source: nursing notes reviewed Onset Date is defined in the Problem List Problems that require an onset date and time if occurred within 24 hrs of arrival to the ED Aortic Dissection and Rupture; Neurologic impairment; Cardiopulmonary Arrest; Endotracheal Intubation; Insertion or Replacement of Mechanical Circulatory Assist Device Medical History Dental infection Abdominal pain Colitis DKA (diabetic ketoacidosis) Hyperglycemia 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 type 1 Social History Social History Household Members: Other Household Members Other:: cousin Housing: House Do you presently have visiting nurse or other home services: No Alcohol intake: current Alcohol intake frequency: a few times a month Patient Tobacco Use Status: Current everyday Tobacco user Tobacco use type: Cigarette Cigarette Packs Per Day: 0 Cigarettes Per Day: 0 Years Smoked: 10 e-Cigarette/Vaping Use: Never Used Second Hand Smoke Exposure: No Substance Use Type: Marijuana Advance Directives: No Advance Directives Information Provided: No service: No Current occupational status: employed Physical Exam Vital Signs: Vital Signs: Last Vital Signs Temp 97.9 F 08/26/23 13:17 Pulse 91 08/26/23 14:45 Resp 18 08/26/23 14:45 BP 128/76 08/26/23 14:45 Pulse Ox 99 08/26/23 14:45 O2 Del Method Room Air 08/26/23 14:45 BMI result Body Mass Index 18.6 VITAL SIGNS: Reviewed. GENERAL: Well developed, well nourished, in no acute distress. HEAD: Normocephalic/atraumatic EYES: PERRLA, EOMI EARS: Ext canals without abnormality NOSE: Nares patent bilateral OROPHARYNX: no oral lesions noted, posterior pharynx clear, dry mucosa NECK: Supple, no adenopathy LUNGS: Normal breath sounds. No adventitious sounds or accessory muscle use. SpO2<100> CARDIOVASCULAR: Regular rate and rhythm without noted murmurs ABDOMEN: Soft, non-tender, non-distended with bowel sounds. MUSCULOSKELETAL: No tenderness, deformities, or effusions noted on gross inspection. EXTREMITIES: No cyanosis, clubbing or edema. SKIN: Inspection of the skin reveals no rashes NEUROLOGIC: Alert and oriented x 4. Strength and sensation to light touch were grossly intact x 4. Medications Administered Discontinued Medications Generic Name Dose Route Start Last Admin Trade Name Freq PRN Reason Stop Dose Admin Sodium Chloride 2,000 mls @ 999 mls/hr 08/26/23 13:30 08/26/23 14:40 Ns IV 08/26/23 15:30 999 mls/hr .Q2H1M JELENA Administration Metoclopramide HCl 10 mg 08/26/23 14:19 08/26/23 14:41 Metoclopramide Hcl 10 Mg/2 Ml Vial IVPUSH 08/26/23 14:20 10 mg ONCE ONE Administration Ondansetron HCl 4 mg 08/26/23 13:29 08/26/23 14:41 Ondansetron Hcl 4 Mg/2 Ml Vial IVPUSH 08/26/23 13:30 4 mg ONCE ONE Administration Medical Decision Making Medical Decision Making [facility] Narrative: 28-year-old male with history and clinical presentation DDX: Recurrent presentation for gastroparesis/DKA/HHS, will rule out underlying infection but highly doubt, there is a possibility viral infection. INTERVENTION: IV fluids, lab work, insulin. 1417: I reviewed all investigations and hematologic indices are negative for leukocytosis, there is a mild left shift and no anemia or thrombocytopenia. Chemistry indices demonstrate a decrease in sodium and chloride corresponding with clinical findings of dehydration, there is evidence of metabolic acidosis with mild anion gap-23, no JAZMIN, patient is hyperglycemic and beta hydroxybutyrate is 4.67. 1536: I discussed with patient extensively, father is at bedside, he wishes to sign out against medical advice, he is noted to be tolerating oral intake, I described to him that he could become very acidotic which is a life-threatening condition, he is received very little IV fluids at this time states he does not care and he wishes to leave. Patient reports that he has an appointment with his doctor on 09/07 of this month I reviewed all investigations and hematologic indices are grossly stable without leukocytosis and there is no anemia or thrombocytopenia. Chemistry indices demonstrate dehydration as well as a mild metabolic acidosis with mild shift, there is no JAZMIN, patient is hyperglycemic with a beta hydroxybutyrate 4.67 as mentioned above. Patient was started on IV fluids. Differential Diagnosis Differential Diagnoses: The differential diagnosis associated with the presentation includes Please see the discussion above Admission/Observation Consideration of admission/observation: Escalation of care including admission/observation considered Please see the discussion above Lab Data [facility] Lab Attestation statement: I reviewed the patient's lab results. Please see the discussion above 08/26/23 13:46 08/26/23 13:46 Labs: Lab Results 08/26/23 08/26/23 Range/Units 13:22 13:46 WBC 8.4 (4.8-10.8) X10*3/uL RBC 5.61 (4.60-5.80) X10*6/uL Hgb 14.3 (14.0-18.0) g/dl Hct 43.7 (42.0-52.0) % MCV 77.9 L (80.0-98.0) fL MCH 25.5 L (27.0-33.0) pg MCHC 32.7 (31.0-36.0) g/dl RDW 13.1 (11.0-16.0) % Plt Count 278 (160-400) X10*3/uL MPV 10.0 (9.4-12.4) fL Immature Gran % (Auto) 0.4 (0.0-0.4) % Neut % (Auto) 75.9 H (45-73) % Lymph % (Auto) 18.2 L (20-40) % [place] % (Auto) 4.5 (2-11) % Eos % (Auto) 0.5 (0-4) % Baso % (Auto) 0.5 (0-2) % Lymph # (Auto) 1.5 (1.2-4.9) X10*3/uL [place] # (Auto) 0.4 (0.1-1.2) X10*3/uL Eos # (Auto) 0.0 (0.0-0.4) X10*3/uL Baso # (Auto) 0.0 (0.0-0.2) X10*3/uL Abs Immat Gran (auto) 0.03 (0.00-0.03) X10*3/uL Absolute Neuts (auto) 6.4 (2.0-8.3) x10*3/uL Absolute Nucleated RBC 0.000 (0.0-0.012) X10*3/uL Nucleated RBC % (auto) 0.0 (0.0-0.2) /100WBC Sodium 133 L (135-145) mmol/L Potassium 4.6 (3.3-5.1) mmol/L Chloride 95 L (96-108) mmol/L Carbon Dioxide 20 L (22-29) mmol/L Anion Gap 23 H (12-20) BUN 22 H (9-16) mg/dL Creatinine 0.91 (0.5-1.4) mg/dL Estim Creat Clear Calc 107.2 Estimated GFR > 60 POC Glucose 369 H* (60-115) mg/dL Random Glucose 413 H* (60-115) mg/dL Calcium 10.1 (8.4-10.2) mg/dL Total Bilirubin 0.8 (0.0-1.0) mg/dL AST 15 (5-37) U/L ALT 14 (0-40) U/L Alkaline Phosphatase 75 (39-117) U/L Total Protein 7.8 (6.5-8.0) g/dL Albumin 4.4 (3.5-5.0) g/dL Beta-Hydroxybutyrate 4.67 H (0.02-0.27) mmol/L Influenza Type A (PCR) NEGATIVE (Negative) Influenza Type B (PCR) NEGATIVE (Negative) RSV RNA Qual (PCR) NEGATIVE (Negative) SARS-CoV-2 RNA (RT-PCR) NEGATIVE (Negative) External Record Review External record reviewed: Outpatient record, Prior outpatient labs and Prior outpatient radiology Chronic Conditions Patient?s care impacted by: Diabetes Critical Care Time Critical Care Time Critical Care Time: Yes Total Critical Care Time: 60 Attestation: I personally attest to this time spent taking care of the patient. Discharge Plan Discharge Clinical Impression: DKA (diabetic ketoacidosis), Dehydration Patient Disposition: Left Against Medical Advice Instructions: Dehydration (ED), Diabetic Hyperglycemia (ED) Additional Instructions: 1. Resume all home medications as prescribed. 2. I have given you a prescription for promethazine please use this medication as prescribed. 3. Please call your primary care doctor on Monday in see if your appointment can be moved up. Do not hesitate to return to the emergency room. Prescriptions: New promethazine 25 mg tablet 25 mg PO TID PRN (Reason: nausea and vomiting) Qty: 10 0RF No Action insulin aspart U-100 [Novolog FlexPen U-100 Insulin] 100 unit/mL (3 mL) insulin pen See Rx Instructions .ROUTE .COMPLEX Rx Instructions: 1 unit of insulin for every 35 units over 135 insulin glargine [Lantus Solostar U-100 Insulin] 100 unit/mL (3 mL) insulin pen 20 unit subcut DAILY pantoprazole [Protonix] 40 mg tablet,delayed release (DR/EC) 40 mg PO DAILY@0630 promethazine 25 mg tablet 25 mg PO TID PRN (Reason: nausea/vomiting) ketorolac 10 mg tablet 10 mg PO TID PRN (Reason: pain) 5 Days Qty: 15 0RF Referrals: Amna Urrutia [facility] PREPARER [Nurse Practitioner] - Stand Alone Forms: Against Medical Advice
[2023-08-26 14:45] VITALS: BP 128/76; PULSE 91; RESP 18; O2SAT 99
--- NOTE | 2023-08-26 15:00 | PC.NURSE ---
pt states he feels anxious after reglan. Reglan was added as a adverse reaction, provider at the bedside to review care plan and importance of care.
--- NOTE | 2023-08-26 16:11 | PC.NURSE ---
pts family is present and pt has decided to leave AMA. he has not completed the IV fluids, he is tolerating po intake without vomiting.
== END 2023-08-26 16:12 | disposition left against medical advice (07) ==
PROVIDERS: Emergency Provider Student in an Organized Health Care Education/Training Program
DX: E10.10 Type 1 diabetes mellitus with ketoacidosis without coma (principal); E86.0 Dehydration; F17.210 Nicotine dependence, cigarettes, uncomplicated; Z79.4 Long term (current) use of insulin; Z20.822 Contact with and (suspected) exposure to COVID-19; Z20.828 Contact with and (suspected) exposure to other viral communicable diseases
CPT/HCPCS: 0241U; 80053; 82010; 82947; 85025; 96374; 96375; 99283; 99284; J2405; J2765

== ENCOUNTER 2023-11-15 13:26 | Outpatient (REF) | payer MEDICAID, SELFPAY ==
[2023-11-15 17:07] LABS: Alanine Aminotransferase 14 U/L (0-40); Albumin Level 4.5 g/dL (3.5-5.0); Alkaline Phosphatase 81 U/L (39-117); Anion Gap 14 (12-20); Aspartate Amino Transferase 13 U/L (5-37); Bilirubin Total 0.4 mg/dL (0.0-1.0); Blood Urea Nitrogen 19 mg/dL (9-16); Calcium 9.9 mg/dL (8.4-10.2); Carbon Dioxide 27 mmol/L (22-29); Chloride 98 mmol/L (96-108); Cholesterol 145 mg/dL (<200); Estimated Glomerular Filt Rate > 60; HDL Cholesterol 50 mg/dL (>40); LDL Cholesterol Calculated 84 mg/dL (<100); Potassium 4.5 mmol/L (3.3-5.1); Sodium 134 mmol/L (135-145); Triglycerides 56 mg/dL (<150)
[2023-11-15 17:37] LABS: Glucose Random 482 mg/dL (60-115)
[2023-11-16 06:41] LABS: Hepatitis A Antibody IgM 0.26 Index (0-0.79); ~Hepatitis A Antibody IgM Nonreactive (Nonreactive)
[2023-11-16 06:55] LABS: HBS Num1 0.96 mIU/mL (0-7.99); ~HepC Num1 0.12 S/CO (0.00-0.79); ~Hepatitis B Surface Antibody NONREACTIVE (Nonreactive); ~Hepatitis C Antibody Nonreactive (Nonreactive)
== END 2023-11-15 13:27 | disposition home or self-care (01) ==
LOC: HO.HHCL 13:26
PROVIDERS: Visit Provider Nurse Practitioner Family
DX: Z00.00 Encounter for general adult medical examination without abnormal findings (principal); E10.65 Type 1 diabetes mellitus with hyperglycemia
CPT/HCPCS: 36415; 80053; 80061; 86706; 86709; 86803

== ENCOUNTER 2023-11-23 03:17 | Emergency (ER) | payer MEDICAID, SELFPAY ==
--- NOTE | ~2023-11-23 | XR_ITS ---
EXAMINATION: XR CHEST CLINICAL INFORMATION: Weakness COMPARISON: Chest x-ray on 05/30/2023 TECHNIQUE: Frontal view of the chest was obtained. FINDINGS: vascularity. LUNGS: Lungs are clear. No pneumothorax is seen. None. XR/XR chest 1V IMPRESSION: Unchanged, no radiographic signs of acute cardiopulmonary disease.
[2023-11-23 06:15] LABS: Potassium 3.3 mmol/L (3.3-5.1); Sodium 138 mmol/L (135-145)
[2023-11-23 06:16] LABS: Anion Gap 13 (12-20); Aspartate Amino Transferase 17 U/L (5-37); Bilirubin Direct < 0.2 mg/dL (0.0-0.5); Bilirubin Total 0.2 mg/dL (0.0-1.0); Blood Urea Nitrogen 15 mg/dL (9-16); Calcium 9.5 mg/dL (8.4-10.2); Carbon Dioxide 21 mmol/L (22-29); Chloride 107 mmol/L (96-108); Estimated Glomerular Filt Rate > 60; Glucose Random 233 mg/dL (60-115)
[2023-11-23 06:17] LABS: Alanine Aminotransferase 15 U/L (0-40); Albumin Level 3.8 g/dL (3.5-5.0); Alkaline Phosphatase 69 U/L (39-117); Lipase 5 U/L (8-78); Total Protein 6.9 g/dL (6.5-8.0)
[2023-11-23 06:27] LABS: Basophils Absolute Auto 0.1 X10*3/uL (0.0-0.2); Basophils Percent Auto 0.7 % (0-2); Eosinophils Absolute Auto 0.3 X10*3/uL (0.0-0.4); Eosinophils Percent Auto 3.5 % (0-4); Hematocrit 36.2 % (42.0-52.0); Hemoglobin 11.9 g/dl (14.0-18.0); Imm Gran Abs Auto 0.04 X10*3/uL (0.00-0.03); Imm Gran Pct Auto 0.4 % (0.0-0.4); Lymphocytes Absolute Auto 1.9 X10*3/uL (1.2-4.9); Lymphocytes Percent Auto 20.4 % (20-40); MANUAL DIFF FLAG NO; Mean Corpuscular HGB Conc 32.9 g/dl (31.0-36.0); Mean Corpuscular Hemoglobin 26.5 pg (27.0-33.0); Mean Corpuscular Volume 80.6 fL (80.0-98.0); Mean Platelet Volume 9.7 fL (9.4-12.4); Monocytes Absolute Auto 0.5 X10*3/uL (0.1-1.2); Monocytes Percent Auto 5.5 % (2-11); Neutrophils Absolute Auto 6.5 x10*3/uL (2.0-8.3); Neutrophils Percent Auto 69.5 % (45-73); Platelet Count 259 X10*3/uL (160-400); Red Blood Count 4.49 X10*6/uL (4.60-5.80); Red Cell Distribution Width 14.4 % (11.0-16.0); White Blood Count 9.4 X10*3/uL (4.8-10.8)
[2023-11-23 06:33] LABS: Influenza A PCR NEGATIVE (Negative); Influenza B PCR NEGATIVE (Negative); Resp Syncy Virus RNA Qual PCR NEGATIVE (Negative); SARS COV2 PCR INHOUSE NEGATIVE (Negative)
--- NOTE | 2023-11-23 06:56 | ED_ITS ---
HPI - General Adult General Chief complaint: General Medical Stated complaint: Cold sweats Source: patient Mode of arrival: ambulatory Limitations: no limitations History of Present Illness HPI narrative: 28-year-old male history of DM type 1 controlled with Lantus 20 units in the a.m. and NovoLog sliding scale throughout the day, patient woke up from sleep diaphoretic hearing ear ringing bilaterally which is usually indicate hypoglycemia to the patient, without checking his BS started to eat chocolate that he always keeps at the bedside. And patient called 911 for further evaluation, on arrival patient has POC of 237. No headache, no chest pain, no SOB, no dysuria, no frequency urination, no coughing, no fever, no chills. Related Data Home Medications ?Medication ?Instructions ?Recorded ?Confirmed insulin aspart U-100 100 unit/mL See Rx Instructions .Route .COMPLEX 12/19/22 06/01/23 (3 mL) subcutaneous pen (Novolog FlexPen U-100 Insulin aspart) insulin glargine 100 unit/mL (3 20 unit subcut DAILY 12/19/22 06/01/23 mL) subcutaneous pen (Lantus Solostar U-100 Insulin) pantoprazole 40 mg tablet,delayed 40 mg PO DAILY@0630 12/19/22 06/01/23 release (Protonix) promethazine 25 mg tablet 25 mg PO TID PRN nausea/vomiting 01/23/23 06/01/23 Previous Rx's ?Medication ?Instructions ?Recorded ketorolac 10 mg tablet 10 mg PO TID PRN pain 5 days #15 05/04/23 tabs promethazine 25 mg tablet 25 mg PO TID PRN nausea and 08/26/23 vomiting #10 tabs Allergies Allergy/AdvReac Type Severity Reaction Status Date / Time diphenhydramine Allergy Anaphylaxis Verified 07/28/23 00:19 [From Benadryl] haloperidol [From Haldol] Allergy Difficulty Verified 07/28/23 00:19 Swallowing metoclopramide [From Reglan] AdvReac Anxiety Verified 08/26/23 14:54 Review of Systems 2 Review of Systems: All other systems are reviewed and are negative Constitutional: Reports as per HPI and Reports no additional constitutional complaints Eyes: Reports as per HPI and Reports no additional eye complaints Reports system reviewed and no additional complaints, except as documented Cardiovascular: Reports as per HPI and Reports no additional cardiovascular complaints Respiratory: Reports as per HPI and Reports no additional respiratory complaints Gastrointestinal: Reports as per HPI and Reports no additional gastrointestinal complaints Genitourinary: Reports no additional female genitourinary complaints Musculoskeletal: Reports no additional musculoskeletal complaints Skin/Breast: Reports system reviewed and no additional complaints, except as docu Psychiatric: Reports no additional psychiatric complaints Endocrine: Reports no additional endocrine complaints Hematologic/Lymphatic: Reports no additional hematologic/lymphatic complaints Allergic/Immunologic: Reports no additional allergic/immunologic complaints Reports system reviewed and no additional complaints, except as documented and Reports Abnormal speech present [facility] Past Medical History Medical History Dental infection Abdominal pain Colitis DKA (diabetic ketoacidosis) Hyperglycemia 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 type 1 Social History Social History Household Members: Other Household Members Other:: cousin Housing: House Do you presently have visiting nurse or other home services: No Alcohol intake: current Alcohol intake frequency: a few times a month Patient Tobacco Use Status: Current everyday Tobacco user Tobacco use type: Cigarette Cigarette Packs Per Day: 0 Cigarettes Per Day: 0 Years Smoked: 10 e-Cigarette/Vaping Use: Never Used Second Hand Smoke Exposure: No Substance Use Type: Marijuana Advance Directives: No Advance Directives Information Provided: No service: No Current occupational status: employed Physical Exam ED Vital Signs: Vital signs have been reviewed and appear to be correct. Blood pressure elevated. Heart rate normal. Respiratory rate normal. Temperature normal. Oxygen saturation normal. Appearance: Alert. Oriented X3. No acute distress. Head: Normal external exam. Normocephalic. Atraumatic. No Cor[place]an signs noted. No raccoon eyes noted Eyes: PERRLA. EOMI. Conjunctiva and sclera normal. Eyelids normal. ENT: TM's Normal. Pharynx normal. Uvula midline. Moist mucous membranes. No trismus noted. No drooling noted. No muffled voice noted. Neck: Normal inspection. Neck supple. FROM. No adenopathy. Thyroid Normal. No meningeal signs. No neck mass noted. CVS: Normal heart rate and rhythm. Heart sound normal. No murmurs noted. Pulses normal throughout. Respiratory: No respiratory distress. Painless inspiration. Breath sounds normal. No wheezes/rales/rhonchi noted. Chest nontender. No accessory muscle usage noted or decreased air movement noted. Abdomen: Soft and nontender. Bowel sounds normal in all 4 quadrants. No distention noted. No organomegaly noted. No visible injury noted. Back: No CVA tenderness. Full range of motion noted. Skin: Skin warm and dry. Normal skin color. Normal skin turgor. No rashes/lesions/lacerations noted. Extremities: No lower extremity edema. Extremities exhibit normal range of motion. Extremities nontender. Neuro: Oriented X 3. Cranial nerve exam: II-XII are grossly intact No motor deficit. No sensory deficit. Reflexes normal. Course Reevaluation(s) Reevaluation #1: Patient is awake, alert and oriented x3, no symptoms, slept well over overnight, no complaints at the moment. Blood sugar is 233, unremarkable labs. Patient will be discharged and follow-up with PCP. Time: 07:01 Medical Decision Making Differential Diagnosis Differential Diagnoses: The differential diagnosis associated with the presentation includes (Hypoglycemia, URI, dehydration, electrolyte derangement, severe anemia.) Admission/Observation Consideration of admission/observation: Escalation of care including admission/observation considered Lab Data MDM Lab Attestation statement: I reviewed the patient's lab results. 11/23/23 03:53 11/23/23 03:53 Labs: Lab Results 11/23/23 11/23/23 Range/Units 03:53 04:20 WBC 9.4 (4.8-10.8) X10*3/uL RBC 4.49 L (4.60-5.80) X10*6/uL Hgb 11.9 L (14.0-18.0) g/dl Hct 36.2 L (42.0-52.0) % MCV 80.6 (80.0-98.0) fL MCH 26.5 L (27.0-33.0) pg MCHC 32.9 (31.0-36.0) g/dl RDW 14.4 (11.0-16.0) % Plt Count 259 (160-400) X10*3/uL MPV 9.7 (9.4-12.4) fL Immature Gran % (Auto) 0.4 (0.0-0.4) % Neut % (Auto) 69.5 (45-73) % Lymph % (Auto) 20.4 (20-40) % Logan % (Auto) 5.5 (2-11) % Eos % (Auto) 3.5 (0-4) % Baso % (Auto) 0.7 (0-2) % Lymph # (Auto) 1.9 (1.2-4.9) X10*3/uL Logan # (Auto) 0.5 (0.1-1.2) X10*3/uL Eos # (Auto) 0.3 (0.0-0.4) X10*3/uL Baso # (Auto) 0.1 (0.0-0.2) X10*3/uL Abs Immat Gran (auto) 0.04 H (0.00-0.03) X10*3/uL Absolute Neuts (auto) 6.5 (2.0-8.3) x10*3/uL Absolute Nucleated RBC 0.000 (0.0-0.012) X10*3/uL Nucleated RBC % (auto) 0.0 (0.0-0.2) /100WBC Sodium 138 (135-145) mmol/L Potassium 3.3 D (3.3-5.1) mmol/L Chloride 107 (96-108) mmol/L Carbon Dioxide 21 L (22-29) mmol/L Anion Gap 13 (12-20) BUN 15 (9-16) mg/dL Creatinine 0.71 (0.5-1.4) mg/dL Estim Creat Clear Calc TNP Estimated GFR > 60 Random Glucose 233 H D (60-115) mg/dL Calcium 9.5 (8.4-10.2) mg/dL Total Bilirubin 0.2 (0.0-1.0) mg/dL Direct Bilirubin < 0.2 (0.0-0.5) mg/dL AST 17 (5-37) U/L ALT 15 (0-40) U/L Alkaline Phosphatase 69 (39-117) U/L Total Protein 6.9 (6.5-8.0) g/dL Albumin 3.8 (3.5-5.0) g/dL Lipase 5 L (8-78) U/L Influenza Type A (PCR) NEGATIVE (Negative) Influenza Type B (PCR) NEGATIVE (Negative) RSV RNA Qual (PCR) NEGATIVE (Negative) SARS-CoV-2 RNA (RT-PCR) NEGATIVE (Negative) Discharge Plan Discharge Clinical Impression: Hypoglycemia due to type 1 diabetes mellitus Patient Disposition: Home, Self-Care Instructions: Hypoglycemia in a Person with Diabetes (ED) Prescriptions: No Action insulin aspart U-100 [Novolog FlexPen U-100 Insulin] 100 unit/mL (3 mL) insulin pen See Rx Instructions .ROUTE .COMPLEX Rx Instructions: 1 unit of insulin for every 35 units over 135 insulin glargine [Lantus Solostar U-100 Insulin] 100 unit/mL (3 mL) insulin pen 20 unit subcut DAILY pantoprazole [Protonix] 40 mg tablet,delayed release (DR/EC) 40 mg PO DAILY@0630 promethazine 25 mg tablet 25 mg PO TID PRN (Reason: nausea/vomiting) ketorolac 10 mg tablet 10 mg PO TID PRN (Reason: pain) 5 Days Qty: 15 0RF promethazine 25 mg tablet 25 mg PO TID PRN (Reason: nausea and vomiting) Qty: 10 0RF Referrals: Amna Urrutia NP [Primary Care Provider] - Print Language: Macedonian
[2023-11-23 07:50] VITALS: BP 124/84; PULSE 82; RESP 18; TEMP 36.8; O2SAT 98
[2023-11-23 08:09] LABS: Glucose, Whole Blood 237 mg/dL (60-115)
== END 2023-11-23 07:50 | disposition home or self-care (01) ==
PROVIDERS: Emergency Provider Emergency Medicine; PCP Nurse Practitioner Family
DX: E10.649 Type 1 diabetes mellitus with hypoglycemia without coma (principal); R53.1 Weakness; F17.210 Nicotine dependence, cigarettes, uncomplicated; Z11.52 Encounter for screening for COVID-19; Z20.822 Contact with and (suspected) exposure to COVID-19; Z79.899 Other long term (current) drug therapy; Z79.4 Long term (current) use of insulin
CPT/HCPCS: 0241U; 36415; 71045; 80048; 80076; 82947; 83690; 85025; 99283

== ENCOUNTER 2023-12-14 14:01 | Outpatient (REF) | payer MEDICAID, SELFPAY ==
[2023-12-14 16:43] LABS: Anion Gap 13 (12-20); Blood Urea Nitrogen 18 mg/dL (9-16); Calcium 10.3 mg/dL (8.4-10.2); Carbon Dioxide 23 mmol/L (22-29); Chloride 104 mmol/L (96-108); Estimated Glomerular Filt Rate > 60; Glucose Random 169 mg/dL (60-115); Potassium 4.4 mmol/L (3.3-5.1); Sodium 136 mmol/L (135-145)
== END 2023-12-14 14:02 | disposition home or self-care (01) ==
LOC: HO.HHCL 14:01
PROVIDERS: Visit Provider Nurse Practitioner Primary Care
DX: E10.65 Type 1 diabetes mellitus with hyperglycemia (principal)
CPT/HCPCS: 36415; 80048; 87086

== ENCOUNTER 2024-01-08 15:27 | Emergency (ER) | payer MEDICAID, SELFPAY ==
--- NOTE | ~2024-01-08 | XR_ITS ---
EXAMINATION: XR CHEST CLINICAL INFORMATION: Chest pain COMPARISON: Prior chest November 2023. TECHNIQUE: 2 views of the chest were obtained. FINDINGS: No significant abnormality is noted involving the heart, lungs, mediastinum, bony thorax or soft tissues. XR/XR chest 2V IMPRESSION: Unremarkable examination.
[2024-01-08 15:49] VITALS: BP 124/82; PULSE 88; O2SAT 98
[2024-01-08 16:30] VITALS: BP 114/80; PULSE 99; RESP 18; TEMP 36.9; O2SAT 100; BMI 18.4
[2024-01-08 17:13] LABS: MANUAL DIFF FLAG NO
[2024-01-08 17:16] LABS: Basophils Absolute Auto 0.1 X10*3/uL (0.0-0.2); Basophils Percent Auto 0.7 % (0-2); Eosinophils Absolute Auto 0.1 X10*3/uL (0.0-0.4); Eosinophils Percent Auto 0.5 % (0-4); Hemoglobin 13.2 g/dl (14.0-18.0); Imm Gran Abs Auto 0.05 X10*3/uL (0.00-0.03); Imm Gran Pct Auto 0.5 % (0.0-0.4); Lymphocytes Absolute Auto 1.8 X10*3/uL (1.2-4.9); Lymphocytes Percent Auto 17.8 % (20-40); Mean Corpuscular HGB Conc 33.8 g/dl (31.0-36.0); Mean Corpuscular Hemoglobin 26.5 pg (27.0-33.0); Mean Corpuscular Volume 78.2 fL (80.0-98.0); Mean Platelet Volume 9.5 fL (9.4-12.4); Monocytes Absolute Auto 0.4 X10*3/uL (0.1-1.2); Monocytes Percent Auto 4.1 % (2-11); Neutrophils Absolute Auto 7.9 x10*3/uL (2.0-8.3); Neutrophils Percent Auto 76.4 % (45-73); Platelet Count 326 X10*3/uL (160-400); Red Blood Count 4.99 X10*6/uL (4.60-5.80); Red Cell Distribution Width 13.6 % (11.0-16.0); White Blood Count 10.3 X10*3/uL (4.8-10.8)
[2024-01-08 17:25] LABS: Glucose, Whole Blood 257 mg/dL (60-115)
[2024-01-08 17:31] LABS: Alanine Aminotransferase 20 U/L (0-40); Albumin Level 4.4 g/dL (3.5-5.0); Alkaline Phosphatase 91 U/L (39-117); Anion Gap 17 (12-20); Aspartate Amino Transferase 17 U/L (5-37); Beta-Hydroxybutyrate 0.83 mmol/L (0.02-0.27); Bilirubin Total 0.4 mg/dL (0.0-1.0); Blood Urea Nitrogen 23 mg/dL (9-16); Calcium 10.1 mg/dL (8.4-10.2); Carbon Dioxide 20 mmol/L (22-29); Chloride 105 mmol/L (96-108); Creatinine Clr Calc Pharmacy 119.1; Estimated Glomerular Filt Rate > 60; Glucose Random 253 mg/dL (60-115); Lipase 5 U/L (8-78); Sodium 138 mmol/L (135-145); Total Protein 7.9 g/dL (6.5-8.0)
[2024-01-08 18:11] LABS: Influenza A PCR NEGATIVE (Negative); Influenza B PCR NEGATIVE (Negative); Resp Syncy Virus RNA Qual PCR NEGATIVE (Negative); SARS COV2 PCR INHOUSE POSITIVE (Negative)
--- NOTE | 2024-01-08 18:40 | ED_ITS ---
HPI - General Adult General Chief complaint: Abdominal Pain Stated complaint: hx of dka, L side flank pain 05/30 Time Seen by Provider: 01/08/24 21:46 Source: patient Mode of arrival: ambulatory Limitations: no limitations History of Present Illness HPI narrative: 28-year-old male with past medical history of diabetes presents ED for bilateral flank pain, chest pain and hip pain. Patient thinks he is in DKA. Patient denies any coughing up blood, leg swelling, calf pain, dysuria, hematuria, or any recent trauma. Related Data Home Medications ?Medication ?Instructions ?Recorded ?Confirmed insulin aspart U-100 100 unit/mL See Rx Instructions .Route .COMPLEX 12/19/22 06/01/23 (3 mL) subcutaneous pen (Novolog FlexPen U-100 Insulin aspart) insulin glargine 100 unit/mL (3 20 unit subcut DAILY 12/19/22 06/01/23 mL) subcutaneous pen (Lantus Solostar U-100 Insulin) pantoprazole 40 mg tablet,delayed 40 mg PO DAILY@0630 12/19/22 06/01/23 release (Protonix) promethazine 25 mg tablet 25 mg PO TID PRN nausea/vomiting 01/23/23 06/01/23 Previous Rx's ?Medication ?Instructions ?Recorded ketorolac 10 mg tablet 10 mg PO TID PRN pain 5 days #15 05/04/23 tabs promethazine 25 mg tablet 25 mg PO TID PRN nausea and 08/26/23 vomiting #10 tabs lorazepam 1 mg tablet (Ativan) 1 mg PO BEDTIME PRN sleep #5 tabs 01/09/24 promethazine 25 mg tablet 25 mg PO TID PRN nausea and 01/09/24 vomiting #30 tabs Allergies Allergy/AdvReac Type Severity Reaction Status Date / Time diphenhydramine Allergy Anaphylaxis Verified 01/09/24 07:15 [From Benadryl] haloperidol [From Haldol] Allergy Difficulty Verified 01/09/24 07:15 Swallowing metoclopramide [From Reglan] AdvReac Anxiety Verified 01/09/24 07:15 Review of Systems 2 Review of Systems: Bilateral flank pain, back pain, chest pain Yes all other systems are reviewed and are negative PMFSH Past Medical History Medical History Dental infection Abdominal pain Colitis DKA (diabetic ketoacidosis) Hyperglycemia 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 type 1 Social History Social History Household Members: Other Household Members Other:: cousin Housing: House Do you presently have visiting nurse or other home services: No Alcohol intake: current Alcohol intake frequency: a few times a month Patient Tobacco Use Status: Current everyday Tobacco user Tobacco use type: Cigarette Cigarette Packs Per Day: 0 Cigarettes Per Day: 0 Years Smoked: 10 e-Cigarette/Vaping Use: Never Used Second Hand Smoke Exposure: No Substance Use Type: Marijuana Advance Directives: No Advance Directives Information Provided: No Do you have a plan to hurt others: No Plan service: No Current occupational status: employed Physical Exam ED Vital Signs: Vital Signs - 24 hr 01/08/24 18:41 01/08/24 21:29 01/08/24 21:48 Temperature 98.1 F 98.9 F 98.3 F Pulse Rate 94 92 81 Respiratory Rate 20 18 16 Blood Pressure 133/73 119/77 113/78 Pulse Oximetry 99 100 100 Oxygen Delivery Method Room Air Room Air Room Air BMI result Body Mass Index 18.4 Const Orientation/consciousness: oriented to person, oriented to place, oriented to time and patient oriented x3 HENMT Head: Yes normal to inspection, Yes No palpable skull fracture present, Yes normocephalic, Yes atraumatic and No abrasion Throat: Yes posterior oropharynx normal, Yes tonsils normal and Yes uvula midline Eyes General: appearance normal, both eyes and all related structures Neck Neck: Yes normal visual inspection, Yes full ROM, Yes no lymphadenopathy, Yes no meningeal signs, Yes trachea midline, Yes supple, No anterior neck swelling and No tender Chest Chest palpation & inspection: normal inspection of the chest and normal palpation of entire chest wall Resp Effort & Inspection: normal respiratory effort and able to speak in complete sentences Auscultation: clear to auscultation bilaterally Cardio Jugular venous distension: no JVD Heart sounds: S1 normal heart sound present and S2 normal heart sound present GI Inspection: Yes normal to inspection Palpation (GI): Soft to palpation, not firm, nontender, no guarding and not rigid General: Yes CVA tenderness (Positive bilateral flank) Back/Spine/Pelvis Back: CVA tenderness (Positive bilateral flank) Skin General skin exam: no rashes or lesions noted, elasticity normal and turgor normal Neuro General: oriented to person, oriented to place, oriented to time, patient oriented x3, gait normal, tone normal, moves all extremities, Normal light touch and pain sensation, no meningeal signs, no focal motor deficits, CN's II-XI intact bilaterally and normal sensation to monofilament Extrem General: Yes normal to inspection, Yes full ROM and Yes capillary refill normal Psych Appearance: grossly normal, well kempt and not disheveled Course Course Course Narrative: This is an RME: Additional HPI, ROS, PE not included below will be deferred to primary provider. RME assessment and note performed by: Natividad Beard PA-C This is a [id number]-male, with a hx of diabtes, who presents to the ER with complaints of nausea, vomiting and body aches x 3 days. Vital signs within normal limits. Patient had blood work performed prior to my assessment, elevated beta hydroxybutyrate at 0.83, VBG with ordered at that time, will add on. He also tested positive for COVID. Repeat vitals within normal limits. Glucose 257 Plan: Labs, viral swabs, further ER evaluation needed. Medical Decision Making Medical Decision Making MDM Narrative: 28-year-old male with history of diabetes presents to ED for bilateral flank pain believes his in DKA. Patient positive for COVID. Glucose improved. Negative anion gap. Patient not in DKA. To make sure no signs of ID so troponin was ordered. chest x-ray was ordered. Patient left the ED before re- evaluation and also before troponin results. Patient left the ED before completion of treatment or re-evaluation. Differential Diagnosis Differential Diagnoses: The differential diagnosis associated with the presentation includes (DkA, ID, Covid, pneumonia, UTI) Admission/Observation Consideration of admission/observation: Escalation of care including admission/observation considered Lab Data [facility] Lab Attestation statement: I reviewed the patient's lab results. 01/08/24 17:08 01/08/24 17:08 Labs: Lab Results 01/08/24 01/08/24 01/08/24 Range/Units 17:00 17:08 18:54 WBC 10.3 (4.8-10.8) X10*3/uL RBC 4.99 (4.60-5.80) X10*6/uL Hgb 13.2 L (14.0-18.0) g/dl Hct 39.0 L (42.0-52.0) % MCV 78.2 L (80.0-98.0) fL MCH 26.5 L (27.0-33.0) pg MCHC 33.8 (31.0-36.0) g/dl RDW 13.6 (11.0-16.0) % Plt Count 326 D (160-400) X10*3/uL MPV 9.5 (9.4-12.4) fL Immature Gran % (Auto) 0.5 H (0.0-0.4) % Neut % (Auto) 76.4 H (45-73) % Lymph % (Auto) 17.8 L (20-40) % Posey % (Auto) 4.1 (2-11) % Eos % (Auto) 0.5 (0-4) % Baso % (Auto) 0.7 (0-2) % Lymph # (Auto) 1.8 (1.2-4.9) X10*3/uL Posey # (Auto) 0.4 (0.1-1.2) X10*3/uL Eos # (Auto) 0.1 (0.0-0.4) X10*3/uL Baso # (Auto) 0.1 (0.0-0.2) X10*3/uL Abs Immat Gran (auto) 0.05 H (0.00-0.03) X10*3/uL Absolute Neuts (auto) 7.9 (2.0-8.3) x10*3/uL Absolute Nucleated RBC 0.000 (0.0-0.012) X10*3/uL Nucleated RBC % (auto) 0.0 (0.0-0.2) /100WBC VBG pH 7.46 H (7.32-7.43) VBG pCO2 32 mmHg VBG pO2 147 mmHg VBG HCO3 23 (22-26) mmol/L VBG O2 Saturation 99.0 % VBG Base Excess 0.4 mmol/L Sodium 138 (135-145) mmol/L Potassium 4.0 (3.3-5.1) mmol/L Chloride 105 (96-108) mmol/L Carbon Dioxide 20 L (22-29) mmol/L Anion Gap 17 (12-20) BUN 23 H (9-16) mg/dL Creatinine 0.81 (0.5-1.4) mg/dL Estim Creat Clear Calc 119.1 Estimated GFR > 60 POC Glucose 257 H (60-115) mg/dL Random Glucose 253 H (60-115) mg/dL Calcium 10.1 (8.4-10.2) mg/dL Total Bilirubin 0.4 (0.0-1.0) mg/dL AST 17 (5-37) U/L ALT 20 (0-40) U/L Alkaline Phosphatase 91 (39-117) U/L Troponin I High Sens < 2.7 (<3.5-35.0) ng/L Total Protein 7.9 (6.5-8.0) g/dL Albumin 4.4 (3.5-5.0) g/dL Lipase 5 L (8-78) U/L Beta-Hydroxybutyrate 0.83 H (0.02-0.27) mmol/L Urine Color Urine Appearance Urine pH (5.0-9.0) Ur Specific Emma (1.005-1.025) Urine Protein (Neg-Trace) mg/dL Urine Glucose (UA) (Negative) mg/dL Urine Ketones (Negative) mg/dL Urine Blood (Negative) Urine Nitrite (Negative) Ur Leukocyte Esterase (Negative) Urine RBC (0-2) /HPF Urine WBC (0-5) /HPF Ur Squamous Epith Cells (0-2) /HPF Urine Bacteria (None Seen) Hyaline Casts (0-2) /LPF Influenza Type A (PCR) NEGATIVE (Negative) Influenza Type B (PCR) NEGATIVE (Negative) RSV RNA Qual (PCR) NEGATIVE (Negative) SARS-CoV-2 RNA (RT-PCR) POSITIVE A (Negative) 01/08/24 01/08/24 Range/Units 21:45 23:07 WBC (4.8-10.8) X10*3/uL RBC (4.60-5.80) X10*6/uL Hgb (14.0-18.0) g/dl Hct (42.0-52.0) % MCV (80.0-98.0) fL MCH (27.0-33.0) pg MCHC (31.0-36.0) g/dl RDW (11.0-16.0) % Plt Count (160-400) X10*3/uL MPV (9.4-12.4) fL Immature Gran % (Auto) (0.0-0.4) % Neut % (Auto) (45-73) % Lymph % (Auto) (20-40) % Posey % (Auto) (2-11) % Eos % (Auto) (0-4) % Baso % (Auto) (0-2) % Lymph # (Auto) (1.2-4.9) X10*3/uL Posey # (Auto) (0.1-1.2) X10*3/uL Eos # (Auto) (0.0-0.4) X10*3/uL Baso # (Auto) (0.0-0.2) X10*3/uL Abs Immat Gran (auto) (0.00-0.03) X10*3/uL Absolute Neuts (auto) (2.0-8.3) x10*3/uL Absolute Nucleated RBC (0.0-0.012) X10*3/uL Nucleated RBC % (auto) (0.0-0.2) /100WBC VBG pH (7.32-7.43) VBG pCO2 mmHg VBG pO2 mmHg VBG HCO3 (22-26) mmol/L VBG O2 Saturation % VBG Base Excess mmol/L Sodium (135-145) mmol/L Potassium (3.3-5.1) mmol/L Chloride (96-108) mmol/L Carbon Dioxide (22-29) mmol/L Anion Gap (12-20) BUN (9-16) mg/dL Creatinine (0.5-1.4) mg/dL Estim Creat Clear Calc Estimated GFR POC Glucose 195 H (60-115) mg/dL Random Glucose (60-115) mg/dL Calcium (8.4-10.2) mg/dL Total Bilirubin (0.0-1.0) mg/dL AST (5-37) U/L ALT (0-40) U/L Alkaline Phosphatase (39-117) U/L Troponin I High Sens (<3.5-35.0) ng/L Total Protein (6.5-8.0) g/dL Albumin (3.5-5.0) g/dL Lipase (8-78) U/L Beta-Hydroxybutyrate (0.02-0.27) mmol/L Urine Color Dark Yellow Urine Appearance Clear Urine pH 6.0 (5.0-9.0) Ur Specific Emma >= 1.030 H (1.005-1.025) Urine Protein 30 (1+) H (Neg-Trace) mg/dL Urine Glucose (UA) 500 H (Negative) mg/dL Urine Ketones 40 (Negative) mg/dL Urine Blood Negative (Negative) Urine Nitrite Negative (Negative) Ur Leukocyte Esterase Negative (Negative) Urine RBC 3-5 H (0-2) /HPF Urine WBC 0-5 (0-5) /HPF Ur Squamous Epith Cells 0-2 (0-2) /HPF Urine Bacteria None Seen (None Seen) Hyaline Casts 0-2 (0-2) /LPF Influenza Type A (PCR) (Negative) Influenza Type B (PCR) (Negative) RSV RNA Qual (PCR) (Negative) SARS-CoV-2 RNA (RT-PCR) (Negative) Independent Interpretation I performed an independent interpretation of an: EKG (Sinus rhythm. Negative STEMI) and Plain X-Ray Radiology Impression Discussion of test interpretation with radiology: I have reviewed the radiologist's reading. Independent Historian Clinical information obtained from an independent historian. History obtained from or confirmed by: Other (patient) External Record Review External record reviewed: Other (prior visits) Prescription Management I considered prescription management with: Pain Medication Discharge Plan Discharge Clinical Impression: COVID-19 Patient Disposition: Left W/O Completing Treatment Prescriptions: No Action insulin aspart U-100 [Novolog FlexPen U-100 Insulin] 100 unit/mL (3 mL) insulin pen See Rx Instructions .ROUTE .COMPLEX Rx Instructions: 1 unit of insulin for every 35 units over 135 insulin glargine [Lantus Solostar U-100 Insulin] 100 unit/mL (3 mL) insulin pen 20 unit subcut DAILY pantoprazole [Protonix] 40 mg tablet,delayed release (DR/EC) 40 mg PO DAILY@0630 promethazine 25 mg tablet 25 mg PO TID PRN (Reason: nausea/vomiting) ketorolac 10 mg tablet 10 mg PO TID PRN (Reason: pain) 5 Days Qty: 15 0RF promethazine 25 mg tablet 25 mg PO TID PRN (Reason: nausea and vomiting) Qty: 10 0RF promethazine 25 mg tablet 25 mg PO TID PRN (Reason: nausea and vomiting) Qty: 30 0RF lorazepam [Ativan] 1 mg tablet 1 mg PO BEDTIME PRN (Reason: sleep) Qty: 5 0RF Discharge Date/Time: 01/09/24 05:34
[2024-01-08 18:41] VITALS: BP 133/73; PULSE 94; RESP 20; TEMP 36.7; O2SAT 99
[2024-01-08 19:02] LABS: VBG Base Excess 0.4 mmol/L; VBG HCO3 23 mmol/L (22-26); VBG pCO2 32 mmHg; VBG pH 7.46 (7.32-7.43); VBG pO2 147 mmHg
[2024-01-08 19:03] LABS: Venous Blood Gas Refer to POC result
--- NOTE | 2024-01-08 20:48 | ECG_ITS ---
Test Reason : CHEST PAIN Blood Pressure : / mmHG Vent. Rate : 079 BPM Atrial Rate : 079 BPM P-R Int : 106 ms QRS Dur : 092 ms QT Int : 370 ms P-R-T Axes : 067 -05 047 degrees QTc Int : 424 ms Sinus rhythm with short [place] Incomplete right bundle branch block Borderline ECG When compared with ECG of 28-JUL-2023 02:10, No significant change was found Referred By: Natividad Beard Electronically Signed By:Carrington Fay
[2024-01-08 21:29] VITALS: BP 119/77; PULSE 92; RESP 18; TEMP 37.2; O2SAT 100
[2024-01-08 21:48] VITALS: BP 113/78; PULSE 81; RESP 16; TEMP 36.8; O2SAT 100
[2024-01-08 21:50] LABS: Glucose, Whole Blood 195 mg/dL (60-115)
[2024-01-08 23:15] LABS: Appearance Urine Clear; Color Urine Dark Yellow; Glucose Urine UA 500 mg/dL (Negative); Leukocyte Esterase Urine Negative (Negative); Nitrite Urine Negative (Negative); Specific Gravity - Urine >= 1.030 (1.005-1.025); UMIC TRIGGER UACC YES; Urine Blood Negative (Negative); Urine Ketones 40 mg/dL (Negative); Urine Protein 30 (1+) mg/dL (Neg-Trace)
[2024-01-08 23:22] LABS: Troponin-I High Sensitivity < 2.7 ng/L (<3.5-35.0)
[2024-01-08 23:24] LABS: Bacteria Urine None Seen (None Seen); Hyaline Casts Urine 0-2 /LPF (0-2); Squamous Epithelial Cell Urine 0-2 /HPF (0-2); WBC Urine 0-5 /HPF (0-5)
== END 2024-01-09 05:34 | disposition left against medical advice (07) ==
PROVIDERS: Physician Assistant; Physician Assistant Medical; Emergency Provider Internal Medicine; PCP Nurse Practitioner Family
DX: U07.1 COVID-19 (principal); R10.9 Unspecified abdominal pain; E10.9 Type 1 diabetes mellitus without complications; Z79.4 Long term (current) use of insulin; F17.210 Nicotine dependence, cigarettes, uncomplicated
CPT/HCPCS: 0241U; 36415; 71046; 80053; 81001; 82010; 82803; 82947; 83690; 84484; 85025; 93005; 99283; 99284

== ENCOUNTER → 2024-01-08 20:48 | Outpatient (BNV) | payer MEDICAID, SELFPAY | PROVIDERS: Emergency Provider Internal Medicine; PCP Nurse Practitioner Family; Visit Provider Internal Medicine Cardiovascular Disease | DX: I45.10 Unspecified right bundle-branch block (principal) | CPT/HCPCS: 93010 ==

== ENCOUNTER 2024-01-09 06:58 | Emergency (ER) | payer MEDICAID, SELFPAY ==
--- NOTE | 2024-01-09 07:12 | ED.ABDPAIN ---
HPI - Abdominal Pain General Chief Complaint: Abdominal Pain Stated Complaint: Abd pain Time Seen by Provider: 01/09/24 07:04 Source: patient, EMS and old records reviewed Mode of arrival: EMS Limitations: no limitations History of Present Illness ED Provider: GERHARD ESCALERA narrative: 28 yo male with PMH of IDDM, gastroparesis, recurrent chest pain no prior CAD just seen yesterday for same negative DKA workup normal CXR left without completing treatment back again with abdominal pain and given toradol and zofran by EMS. He did test positive yesterday for COVID. He notes his pain is on the left side and he is having n/v and is constipated. He denies fevers. He states he is not anxious. When he has this he normally goes to either [facility], [facility] or [facility]. MD elicited complaint: abdominal pain Pertinent past history: other (cyclical vomiting, gastoparesis) Onset (ago): day(s) (3) Pain Consistency: constant Location: epigastric and LUQ Severity: severe Quality: aching Radiation: none Migration to: no migration Exacerbating factors: eating Relieving factors: nothing Context: history of similar episodes Associated symptoms: nausea, vomiting and constipation Related Data Home Medications ?Medication ?Instructions ?Recorded ?Confirmed insulin aspart U-100 100 unit/mL See Rx Instructions .Route .COMPLEX 12/19/22 06/01/23 (3 mL) subcutaneous pen (Novolog FlexPen U-100 Insulin aspart) insulin glargine 100 unit/mL (3 20 unit subcut DAILY 12/19/22 06/01/23 mL) subcutaneous pen (Lantus Solostar U-100 Insulin) pantoprazole 40 mg tablet,delayed 40 mg PO DAILY@0630 12/19/22 06/01/23 release (Protonix) promethazine 25 mg tablet 25 mg PO TID PRN nausea/vomiting 01/23/23 06/01/23 Previous Rx's ?Medication ?Instructions ?Recorded ketorolac 10 mg tablet 10 mg PO TID PRN pain 5 days #15 05/04/23 tabs promethazine 25 mg tablet 25 mg PO TID PRN nausea and 08/26/23 vomiting #10 tabs lorazepam 1 mg tablet (Ativan) 1 mg PO BEDTIME PRN sleep #5 tabs 01/09/24 promethazine 25 mg tablet 25 mg PO TID PRN nausea and 01/09/24 vomiting #30 tabs Allergies Allergy/AdvReac Type Severity Reaction Status Date / Time diphenhydramine Allergy Anaphylaxis Verified 01/09/24 07:15 [From Benadryl] haloperidol [From Haldol] Allergy Difficulty Verified 01/09/24 07:15 Swallowing metoclopramide [From Reglan] AdvReac Anxiety Verified 01/09/24 07:15 Review of Systems Review of Systems Constitutional : No Weight loss, No Fever, No Chills ENT/Mouth : No sore throat, No Rhinorrhea Eyes: No Swelling, No Redness Cardiovascular : No Chest Pain, No SOB, NoEdema Respiratory : No Cough, No Sputum, No Wheezing Gastrointestinal : Positive Nausea, Positive Vomiting, no Diarrhea, positive abdominal Pain, No Hematochezia, No Melena Genitourinary : No Dysuria, No Urinary Frequency, No Hematuria, No Urgency Musculoskeletal : No joint pain, No Myalgias, No Joint Swelling Skin : No Skin Lesions, No rash Neuro : No Weakness, No Numbness, No Dizziness, No Headache All other systems reviewed and are negative. [facility] Past Medical History Attestation statement: The following information was validated with the patient. Source: old records reviewed Medical History Dental infection Abdominal pain Colitis DKA (diabetic ketoacidosis) Hyperglycemia 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 type 1 Social History Social History Household Members: Other Household Members Other:: cousin Housing: House Do you presently have visiting nurse or other home services: No Alcohol intake: current Alcohol intake frequency: a few times a month Patient Tobacco Use Status: Current everyday Tobacco user Tobacco use type: Cigarette Cigarette Packs Per Day: 0 Cigarettes Per Day: 0 Years Smoked: 10 e-Cigarette/Vaping Use: Never Used Second Hand Smoke Exposure: No Substance Use Type: Marijuana Advance Directives: No Advance Directives Information Provided: No Do you have a plan to hurt others: No Plan service: No Current occupational status: employed Physical Exam ED Vital Signs: Vital Signs - 24 hr 01/09/24 07:14 01/09/24 09:53 01/09/24 10:22 Temperature 97.9 F 97.9 F Pulse Rate 86 76 93 Respiratory Rate 18 16 20 Blood Pressure 139/85 109/63 104/65 Pulse Oximetry 100 98 100 Oxygen Delivery Method Room Air Room Air Room Air BMI result Body Mass Index 28.2 Appearance: Alert. Oriented X3. No acute distress. Eyes: Pupils equal, round and reactive to light. ENT: Pharynx normal. Neck: Normal inspection. Neck supple. CVS: Normal heart rate and rhythm. Pulses normal. Respiratory: No respiratory distress. Breath sounds normal. Abdomen: Soft and moderate diffuse ttp no rebound Skin: Skin warm and dry. Normal skin color. Normal skin turgor. Extremities: No lower extremity edema. Neuro: Oriented X 3. No motor deficit. No sensory deficit. Medical Decision Making Medical Decision Making [facility] Narrative: 28 yo male with PMH of IDDM, gastroparesis, recurrent chest pain no prior CAD here with c/o recurrent abdominal pain n/v has been here several times for the same thing at this time will need basic labs, IVF x2L, IV ativan x 2mg, DKA workup though I suspect this is his chronic gastroparesis/cyclical vomiting. Differential Diagnosis Differential Diagnoses: The differential diagnosis associated with the presentation includes cyclical vomiting, gastroparesis Admission/Observation Consideration of admission/observation: Escalation of care including admission/observation considered tolerating PO, labs improved stable for DC UA negative for UTI Lab Data [facility] Lab Attestation statement: I reviewed the patient's lab results. repeat labs improved after 2L of IVF 01/09/24 07:39 01/09/24 10:22 Labs: Lab Results 01/09/24 01/09/24 01/09/24 Range/Units 07:39 07:45 10:22 WBC 8.0 (4.8-10.8) X10*3/uL RBC 5.08 (4.60-5.80) X10*6/uL Hgb 13.2 L (14.0-18.0) g/dl Hct 39.5 L (42.0-52.0) % MCV 77.8 L (80.0-98.0) fL MCH 26.0 L (27.0-33.0) pg MCHC 33.4 (31.0-36.0) g/dl RDW 13.5 (11.0-16.0) % Plt Count 312 (160-400) X10*3/uL MPV 9.6 (9.4-12.4) fL Immature Gran % (Auto) 0.3 (0.0-0.4) % Neut % (Auto) 66.6 (45-73) % Lymph % (Auto) 24.9 (20-40) % [place] % (Auto) 6.3 (2-11) % Eos % (Auto) 1.1 (0-4) % Baso % (Auto) 0.8 (0-2) % Lymph # (Auto) 2.0 (1.2-4.9) X10*3/uL [place] # (Auto) 0.5 (0.1-1.2) X10*3/uL Eos # (Auto) 0.1 (0.0-0.4) X10*3/uL Baso # (Auto) 0.1 (0.0-0.2) X10*3/uL Abs Immat Gran (auto) 0.02 (0.00-0.03) X10*3/uL Absolute Neuts (auto) 5.3 (2.0-8.3) x10*3/uL Absolute Nucleated RBC 0.000 (0.0-0.012) X10*3/uL Nucleated RBC % (auto) 0.0 (0.0-0.2) /100WBC VBG pH 7.51 H (7.32-7.43) VBG pCO2 26 mmHg VBG pO2 70 mmHg VBG HCO3 21 L (22-26) mmol/L VBG O2 Saturation 94.0 % VBG Base Excess 0.5 mmol/L Sodium 139 138 (135-145) mmol/L Potassium 3.8 4.3 (3.3-5.1) mmol/L Chloride 103 103 (96-108) mmol/L Carbon Dioxide 19 L 21 L (22-29) mmol/L Anion Gap 21 H 18 (12-20) BUN 25 H 26 H (9-16) mg/dL Creatinine 0.81 0.82 (0.5-1.4) mg/dL Estim Creat Clear Calc 140.1 138.4 Estimated GFR > 60 > 60 Random Glucose 238 H 261 H (60-115) mg/dL Calcium 10.1 9.7 (8.4-10.2) mg/dL Magnesium 1.9 (1.6-2.6) mg/dL Total Bilirubin 0.6 (0.0-1.0) mg/dL Direct Bilirubin 0.2 (0.0-0.5) mg/dL AST 16 (5-37) U/L ALT 19 (0-40) U/L Alkaline Phosphatase 92 (39-117) U/L Total Protein 7.9 (6.5-8.0) g/dL Albumin 4.4 (3.5-5.0) g/dL Lipase 5 L (8-78) U/L Beta-Hydroxybutyrate 2.34 H (0.02-0.27) mmol/L Independent Historian Clinical information obtained from an independent historian. History obtained from or confirmed by: EMS External Record Review External record reviewed: Inpatient record Prescription Management I considered prescription management with: Other Medications Administered Discontinued Medications Generic Name Dose Route Start Last Admin Trade Name Freq PRN Reason Stop Dose Admin Lactated Ringer's 1,000 mls @ 999 mls/hr 01/09/24 07:15 01/09/24 10:02 Lr IV 01/09/24 08:15 Infused .Q1H1M JELENA Infusion Lactated Ringer's 1,000 mls @ 999 mls/hr 01/09/24 07:15 01/09/24 10:02 Lr IV 01/09/24 08:15 Infused .Q1H1M JELENA Infusion Lorazepam 2 mg 01/09/24 07:06 01/09/24 07:24 Lorazepam 2 Mg/Ml Vial IVPUSH 01/09/24 07:07 2 mg ONCE ONE Administration Critical Care Time Critical Care Time Critical Care Time: Yes Total Critical Care Time: 45 Attestation: IVF x 2L, repeat labs, review of records I attest to this time spent taking care of the patient Discharge Plan Discharge Clinical Impression: Gastroparesis, Cyclical vomiting Patient Disposition: Home, Self-Care Instructions: Acute Nausea and Vomiting (ED), Gastroparesis (ED) Additional Instructions: stay hydrated, check sugars, liquids for 24 hours then advance slowly, follow up with your doctor Prescriptions: New promethazine 25 mg tablet 25 mg PO TID PRN (Reason: nausea and vomiting) Qty: 30 0RF lorazepam [Ativan] 1 mg tablet 1 mg PO BEDTIME PRN (Reason: sleep) Qty: 5 0RF No Action insulin aspart U-100 [Novolog FlexPen U-100 Insulin] 100 unit/mL (3 mL) insulin pen See Rx Instructions .ROUTE .COMPLEX Rx Instructions: 1 unit of insulin for every 35 units over 135 insulin glargine [Lantus Solostar U-100 Insulin] 100 unit/mL (3 mL) insulin pen 20 unit subcut DAILY pantoprazole [Protonix] 40 mg tablet,delayed release (DR/EC) 40 mg PO DAILY@0630 promethazine 25 mg tablet 25 mg PO TID PRN (Reason: nausea/vomiting) ketorolac 10 mg tablet 10 mg PO TID PRN (Reason: pain) 5 Days Qty: 15 0RF promethazine 25 mg tablet 25 mg PO TID PRN (Reason: nausea and vomiting) Qty: 10 0RF Print Language: Irish
[2024-01-09 07:14] VITALS: BP 139/85; PULSE 86; RESP 18; TEMP 36.6; O2SAT 100; BMI 28.2
[2024-01-09] MEDS: LORazepam 2 MG/ML VIAL IVPUSH (07:24)
[2024-01-09] MEDS: Lactated Ringers 1,000 ML 999 ML IV ×2 (07:24)
[2024-01-09 07:45] LABS: MANUAL DIFF FLAG NO
[2024-01-09 07:48] LABS: Basophils Absolute Auto 0.1 X10*3/uL (0.0-0.2); Basophils Percent Auto 0.8 % (0-2); Eosinophils Absolute Auto 0.1 X10*3/uL (0.0-0.4); Eosinophils Percent Auto 1.1 % (0-4); Hematocrit 39.5 % (42.0-52.0); Hemoglobin 13.2 g/dl (14.0-18.0); Imm Gran Abs Auto 0.02 X10*3/uL (0.00-0.03); Imm Gran Pct Auto 0.3 % (0.0-0.4); Lymphocytes Percent Auto 24.9 % (20-40); Mean Corpuscular HGB Conc 33.4 g/dl (31.0-36.0); Mean Corpuscular Volume 77.8 fL (80.0-98.0); Mean Platelet Volume 9.6 fL (9.4-12.4); Monocytes Absolute Auto 0.5 X10*3/uL (0.1-1.2); Monocytes Percent Auto 6.3 % (2-11); Neutrophils Absolute Auto 5.3 x10*3/uL (2.0-8.3); Neutrophils Percent Auto 66.6 % (45-73); Platelet Count 312 X10*3/uL (160-400); Red Blood Count 5.08 X10*6/uL (4.60-5.80); Red Cell Distribution Width 13.5 % (11.0-16.0)
[2024-01-09 07:51] LABS: VBG Base Excess 0.5 mmol/L; VBG HCO3 21 mmol/L (22-26); VBG pCO2 26 mmHg; VBG pH 7.51 (7.32-7.43); VBG pO2 70 mmHg
[2024-01-09 07:51] LABS: Venous Blood Gas Refer to POC result
[2024-01-09 08:12] LABS: Alanine Aminotransferase 19 U/L (0-40); Albumin Level 4.4 g/dL (3.5-5.0); Alkaline Phosphatase 92 U/L (39-117); Anion Gap 21 (12-20); Aspartate Amino Transferase 16 U/L (5-37); Beta-Hydroxybutyrate 2.34 mmol/L (0.02-0.27); Bilirubin Direct 0.2 mg/dL (0.0-0.5); Bilirubin Total 0.6 mg/dL (0.0-1.0); Blood Urea Nitrogen 25 mg/dL (9-16); Calcium 10.1 mg/dL (8.4-10.2); Carbon Dioxide 19 mmol/L (22-29); Chloride 103 mmol/L (96-108); Creatinine Clr Calc Pharmacy 140.1; Estimated Glomerular Filt Rate > 60; Glucose Random 238 mg/dL (60-115); Lipase 5 U/L (8-78); Magnesium 1.9 mg/dL (1.6-2.6); Potassium 3.8 mmol/L (3.3-5.1); Sodium 139 mmol/L (135-145); Total Protein 7.9 g/dL (6.5-8.0)
--- NOTE | 2024-01-09 09:36 | PC.NURSE ---
second IV established, LR infusing at this time
[2024-01-09 09:53] VITALS: BP 109/63; PULSE 76; RESP 16; O2SAT 98
[2024-01-09 10:22] VITALS: BP 104/65; PULSE 93; RESP 20; TEMP 36.6; O2SAT 100
[2024-01-09 10:42] LABS: Anion Gap 18 (12-20); Blood Urea Nitrogen 26 mg/dL (9-16); Calcium 9.7 mg/dL (8.4-10.2); Carbon Dioxide 21 mmol/L (22-29); Chloride 103 mmol/L (96-108); Creatinine Clr Calc Pharmacy 138.4; Estimated Glomerular Filt Rate > 60; Glucose Random 261 mg/dL (60-115); Potassium 4.3 mmol/L (3.3-5.1); Sodium 138 mmol/L (135-145)
[2024-01-09 11:26] VITALS: BP 104/65; PULSE 93; RESP 20; TEMP 36.6; O2SAT 100
== END 2024-01-09 11:35 | disposition home or self-care (01) ==
PROVIDERS: Emergency Provider Emergency Medicine
DX: R11.15 Cyclical vomiting syndrome unrelated to migraine (principal); E10.43 Type 1 diabetes mellitus with diabetic autonomic (poly)neuropathy; K31.84 Gastroparesis; Z79.4 Long term (current) use of insulin; R07.9 Chest pain, unspecified; R11.2 Nausea with vomiting, unspecified; R10.12 Left upper quadrant pain
CPT/HCPCS: 36415; 80048; 80076; 82010; 82803; 83690; 83735; 85025; 96361; 96374; 99283; 99284; J2060; J7120

== ENCOUNTER 2024-01-21 10:10 | Emergency (ER) | payer MEDICAID, SELFPAY ==
[2024-01-21 10:17] VITALS: BP 115/78; BP 118/73; PULSE 100; PULSE 92; RESP 16; TEMP 36.6; O2SAT 100; BMI 19.3
[2024-01-21 10:29] LABS: Glucose, Whole Blood 92 mg/dL (60-115)
--- NOTE | 2024-01-21 10:29 | PC.NURSE ---
Tuna sandwich, shaila aydee and cheese given
[2024-01-21 11:16] LABS: Glucose, Whole Blood 145 mg/dL (60-115)
[2024-01-21 11:42] VITALS: BP 109/77; PULSE 99; RESP 18; TEMP 36.8; O2SAT 98
--- NOTE | 2024-01-21 11:42 | ED_ITS ---
HPI - General Adult General Chief complaint: Weakness Stated complaint: WEAK,LOW BS 86,106 AFTER SUGAR PER EMS History of Present Illness ED Provider: Seen by JORDAN Suresh HPI narrative: 28 yold male with pmh of DM and DKA presents to the ED hypoglycemia. Patient st ates he was at work and started feeling lighteaded. Patient glucose was in the 60's. Patient called EMS who gave him dextrose. Patient's glucose improved to 33 and then 105. Patient states he feels better and would like to be discharged. Related Data Home Medications ?Medication ?Instructions ?Recorded ?Confirmed insulin aspart U-100 100 unit/mL See Rx Instructions .Route .COMPLEX 12/19/22 06/01/23 (3 mL) subcutaneous pen (Novolog FlexPen U-100 Insulin aspart) insulin glargine 100 unit/mL (3 20 unit subcut DAILY 12/19/22 06/01/23 mL) subcutaneous pen (Lantus Solostar U-100 Insulin) pantoprazole 40 mg tablet,delayed 40 mg PO DAILY@0630 12/19/22 06/01/23 release (Protonix) promethazine 25 mg tablet 25 mg PO TID PRN nausea/vomiting 01/23/23 06/01/23 Previous Rx's ?Medication ?Instructions ?Recorded ketorolac 10 mg tablet 10 mg PO TID PRN pain 5 days #15 05/04/23 tabs promethazine 25 mg tablet 25 mg PO TID PRN nausea and 08/26/23 vomiting #10 tabs lorazepam 1 mg tablet (Ativan) 1 mg PO BEDTIME PRN sleep #5 tabs 01/09/24 promethazine 25 mg tablet 25 mg PO TID PRN nausea and 01/09/24 vomiting #30 tabs Allergies Allergy/AdvReac Type Severity Reaction Status Date / Time diphenhydramine Allergy Anaphylaxis Verified 01/21/24 10:26 [From Benadryl] haloperidol [From Haldol] Allergy Difficulty Verified 01/21/24 10:26 Swallowing metoclopramide [From Reglan] AdvReac Anxiety Verified 01/21/24 10:26 Review of Systems Review of Systems: Hypoglycemia Yes all other systems are reviewed and are negative [facility] Past Medical History Medical History Dental infection Abdominal pain Colitis DKA (diabetic ketoacidosis) Hyperglycemia 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 type 1 Social History Social History Household Members: Other Household Members Other:: cousin Housing: House Do you presently have visiting nurse or other home services: No Alcohol intake: current Alcohol intake frequency: a few times a month Patient Tobacco Use Status: Current everyday Tobacco user Tobacco use type: Cigarette Cigarette Packs Per Day: 0 Cigarettes Per Day: 0 Years Smoked: 10 e-Cigarette/Vaping Use: Never Used Second Hand Smoke Exposure: No Substance Use Type: Marijuana service: No Current occupational status: employed Physical Exam ED Vital Signs: Vital Signs - 24 hr 01/21/24 10:17 Temperature 97.9 F Pulse Rate 92 Respiratory Rate 16 Blood Pressure 118/73 Pulse Oximetry 100 Oxygen Delivery Method Room Air BMI result Body Mass Index 19.3 Const General: cooperative, healthy appearing, comfortable, no acute distress, well developed, alert, awake and Physically active Orientation/consciousness: oriented to person, oriented to place, oriented to time and patient oriented x3 HENMT Head: Yes normal to inspection, Yes No palpable skull fracture present, Yes normocephalic, Yes atraumatic and No abrasion Eyes General: appearance normal, both eyes and all related structures Neck Neck: Yes normal visual inspection, Yes full ROM, Yes no lymphadenopathy, Yes no meningeal signs, Yes trachea midline, Yes supple, No anterior neck swelling and No tender Chest Chest palpation & inspection: normal inspection of the chest and normal palpation of entire chest wall Resp Effort & Inspection: normal respiratory effort and able to speak in complete sentences Cardio Jugular venous distension: no JVD Heart sounds: S1 normal heart sound present and S2 normal heart sound present GI Inspection: Yes normal to inspection Palpation (GI): Soft to palpation, not firm, nontender, no guarding and not rigid General: No CVA tenderness and Yes no CVA tenderness Back/Spine/Pelvis Back: no CVA tenderness, No CVA tenderness and No back tenderness Skin General skin exam: no rashes or lesions noted, elasticity normal and turgor normal Neuro General: oriented to person, oriented to place, oriented to time, patient oriented x3, gait normal, tone normal, moves all extremities, Normal light touch and pain sensation, no meningeal signs, no focal motor deficits, CN's II-XI intact bilaterally and normal sensation to monofilament Extrem General: Yes normal to inspection, Yes full ROM and Yes capillary refill normal Psych Appearance: grossly normal, well kempt and not disheveled Course Course Course Narrative: R Medical Decision Making Medical Decision Making [facility] Narrative: 28-year-old male with history of diabetes presents to ED for hypoglycemia. Patient states while at work in the sun glucose was in the 60s but does not recall exact number. Patient gave dextrose by EMS glucose 83 and 105. Patient is eating. Patient does not want further assessment. Patient explained risks such as repeat hypoglycemia, seizures, and . Patient recommended to be evaluated in the ED get labs and for glucose to be monitored. Patient understands risks including and patient still signed out against medical advice. Differential Diagnosis Differential Diagnoses: The differential diagnosis associated with the presentation includes (Hypoglycemia) Admission/Observation Consideration of admission/observation: Escalation of care including admission/observation considered Lab Data Labs: Lab Results 01/21/24 01/21/24 Range/Units 10:25 11:13 POC Glucose 92 145 H (60-115) mg/dL Independent Historian Clinical information obtained from an independent historian. History obtained from or confirmed by: Other (patient) External Record Review External record reviewed: Other (Prior visits) Discharge Plan Discharge Clinical Impression: Hypoglycemia Patient Disposition: Left Against Medical Advice Instructions: Hypoglycemia in a Person with Diabetes (ED) Additional Instructions: Return to the ED immediately for cold sweats, weakness, dizziness, lightheadedness, altered mental status, seizures, vomiting, abdominal pain, chest pain, shortness of breath, or any other concerning symptoms. Recommend follow-up with primary care provider. Due to your history of diabetes and extreme heat make sure you stay hydrated and have small candy, small chocolates to prevent hypoglycemia. Prescriptions: No Action insulin aspart U-100 [Novolog FlexPen U-100 Insulin] 100 unit/mL (3 mL) insulin pen See Rx Instructions .ROUTE .COMPLEX Rx Instructions: 1 unit of insulin for every 35 units over 135 insulin glargine [Lantus Solostar U-100 Insulin] 100 unit/mL (3 mL) insulin pen 20 unit subcut DAILY pantoprazole [Protonix] 40 mg tablet,delayed release (DR/EC) 40 mg PO DAILY@0630 promethazine 25 mg tablet 25 mg PO TID PRN (Reason: nausea/vomiting) ketorolac 10 mg tablet 10 mg PO TID PRN (Reason: pain) 5 Days Qty: 15 0RF promethazine 25 mg tablet 25 mg PO TID PRN (Reason: nausea and vomiting) Qty: 10 0RF promethazine 25 mg tablet 25 mg PO TID PRN (Reason: nausea and vomiting) Qty: 30 0RF lorazepam [Ativan] 1 mg tablet 1 mg PO BEDTIME PRN (Reason: sleep) Qty: 5 0RF Stand Alone Forms: Against Medical Advice Print Language: Arabic
[2024-01-21 12:01] VITALS: BP 109/77; PULSE 99; RESP 18; TEMP 36.8; O2SAT 98
== END 2024-01-21 12:43 | disposition left against medical advice (07) ==
PROVIDERS: Emergency Provider Emergency Medicine; PCP Nurse Practitioner Family
DX: R42 Dizziness and giddiness (principal); E11.649 Type 2 diabetes mellitus with hypoglycemia without coma; Z79.4 Long term (current) use of insulin; Z53.29 Procedure and treatment not carried out because of patient's decision for other reasons
CPT/HCPCS: 82947; 99282

== ENCOUNTER 2024-02-23 08:44 | Emergency (ER) | payer MEDICAID, SELFPAY ==
[2024-02-23] VITALS (9 sets, daily range): BP systolic 98–123; BP diastolic 54–83; PULSE 72–88; RESP 14–22; TEMP 36.7–37.1; O2SAT 96–100; BMI 18.7
--- NOTE | ~2024-02-23 | CT_ITS ---
EXAMINATION: CT ABDOMEN AND PELVIS WITH CONTRAST CLINICAL INFORMATION: Epigastric abdominal pain COMPARISON: CT scan of abdomen and pelvis on 12/19/2022 TECHNIQUE: Multidetector volumetric images were obtained from the superior aspect of the liver through the pubic symphysis following administration 85 mL of Omnipaque 350 intravenous contrast. Sagittal and coronal reformatted images were obtained on the technologist's workstation. Oral contrast: No This CT examination was performed using dose optimization techniques as appropriate, variously including the following: *Automated exposure control *Adjustment of mA and/or kV according to patient size (this includes techniques or standardized protocols for targeted exams where dose is matched to indication/reason for exam; i.e. extremities or head) *Use of iterative reconstruction technique DLP: 351.26 mGy-cm FINDINGS: LUNG BASES: Bilateral lung bases are clear. LIVER: No focal lesion is seen in the liver. GALLBLADDER AND BILIARY TREE: Gallbladder appears unremarkable without calcified stones. Common bile duct is not dilated. SPLEEN: The spleen is normal in size without focal lesion. PANCREAS: The pancreas appears unremarkable. ADRENAL GLANDS: Adrenal glands are normal in size without focal lesion bilaterally. KIDNEYS: Bilateral kidneys are normal in size without focal lesion. BOWELS: There is no abnormal dilatation of the large and small bowel loops. RETROPERITONEUM: No abnormally enlarged retroperitoneal lymph nodes, mass or hematoma could be seen. BLOOD VESSELS: Abdominal aorta is normal in size and smoothly patent. ABDOMINAL WALL: Abdominal subcutaneous tissue and muscle are intact. No evidence of ventral hernia. PERITONEUM: There was no ascites. There were no abdominal peritoneal inflammatory changes seen. No free peritoneal air was seen. No abnormally enlarged mesenteric lymph nodes are found. BONES: Asymmetric left L5 pars interarticulares bony defect is seen without significant L5-S1 spondylolisthesis. No fracture or dislocation. No focal bone lesion diagnostic of metastatic disease could be seen in the lumbar region. EXAMINATION: CT pelvis. FINDINGS: URINARY BLADDER: Urinary bladder fills normally with urine. BOWELS: There is no abnormal dilatation of the large and small bowel loops. Appendix is not visualized. Surgical staple is seen at the tip of cecum. GENITAL ORGANS: Seminal vesicles are unremarkable. Prostate gland is normal. LYMPH NODES: No abnormally enlarged iliac or inguinal lymph nodes are seen. PERITONEUM: No inflammatory changes, ascites or free peritoneal air are found in the pelvis. BONES: No fracture or dislocation. No focal bone lesion diagnostic of metastatic disease could be seen in the pelvis. CT/CT abdomen pelvis w IV con IMPRESSION: 1. Unchanged status post appendectomy. 2. No pelvic or abdominal inflammation or pneumoperitoneum is seen. 3. No abdominal mass lesion or lymphadenopathy is found. 4. No pelvic mass lesion, abscess or lymphadenopathy is seen. Fleischner guidelines were followed.
[2024-02-23 09:41] LABS: MANUAL DIFF FLAG NO
--- NOTE | 2024-02-23 09:41 | ED.ABDPAIN ---
HPI - Abdominal Pain General Chief Complaint: Abdominal Pain Stated Complaint: ABD PAIN Time Seen by Provider: 02/23/24 09:41 Source: patient, EMS, RN notes reviewed and old records reviewed Mode of arrival: EMS History of Present Illness ED Provider: ROXANN SCHMIDT PA-C HPI narrative: 29 year old male with pmhx significnat for Barretts esophagus, gastroparesis, type 1 diabetes, DKA, and colitis presents to the ED via EMS from home for evaluation of nausea, vomiting, and 10/10 epigastric abdominal pain x3 days. He reports multiple episodes of vomiting. He has been unable to keep food or drink down. He has been taking his lantus and novolog as prescribed without missed doses. He admits that his blood sugar has been running lower than usual with numbers in the 30s and 40s at home. Admits to smoking marijuana regularly and has been treated for cyclical vomiting in the past. Denies known sick contacts. 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 Related Data Home Medications ?Medication ?Instructions ?Recorded ?Confirmed insulin aspart U-100 100 unit/mL See Rx Instructions .Route .COMPLEX 12/19/22 06/01/23 (3 mL) subcutaneous pen (Novolog FlexPen U-100 Insulin aspart) insulin glargine 100 unit/mL (3 20 unit subcut DAILY 12/19/22 06/01/23 mL) subcutaneous pen (Lantus Solostar U-100 Insulin) pantoprazole 40 mg tablet,delayed 40 mg PO DAILY@0630 12/19/22 06/01/23 release (Protonix) promethazine 25 mg tablet 25 mg PO TID PRN nausea/vomiting 01/23/23 06/01/23 Previous Rx's ?Medication ?Instructions ?Recorded ketorolac 10 mg tablet 10 mg PO TID PRN pain 5 days #15 05/04/23 tabs promethazine 25 mg tablet 25 mg PO TID PRN nausea and 08/26/23 vomiting #10 tabs lorazepam 1 mg tablet (Ativan) 1 mg PO BEDTIME PRN sleep #5 tabs 01/09/24 promethazine 25 mg tablet 25 mg PO TID PRN nausea and 01/09/24 vomiting #30 tabs ondansetron 4 mg disintegrating 4 mg PO DAILY PRN nausea and 02/23/24 tablet vomiting 5 days #14 tabs Allergies Allergy/AdvReac Type Severity Reaction Status Date / Time diphenhydramine Allergy Anaphylaxis Verified 02/23/24 08:58 [From Benadryl] haloperidol [From Haldol] Allergy Difficulty Verified 02/23/24 08:58 Swallowing metoclopramide [From Reglan] AdvReac Anxiety Verified 02/23/24 08:58 Review of Systems Review of Systems Constitutional: No fever, chills, fatigue, night sweats, weight changes ENT/Mouth: No ear pain, hearing loss, nasal congestion, sinus pain, rhinorrhea, sore throat Eyes: No eye pain, swelling, redness, vision changes, discharge Cardio: No chest pain, palpitations, HAQ, orthopnea, peripheral edema Pulm: No SOB, cough, sputum, wheezing, dyspnea, hemoptysis GI: No hematemesis, diarrhea, constipation, hematochezia, melena, +nausea, +vomiting, +abdominal pain : No irregular bleeding, dysuria, frequency, urgency, hesitancy, hematuria, flank pain, urinary flow changes, urinary incontinence or retention MSK: No back pain, neck pain, joint pain, myalgias Skin: No lesions, rashes Neuro: No weakness, numbness, paresthesias, LOC, dizziness, headache Psych: No anxiety/panic, depression, SI/HI, AH/VH All other systems reviewed and are negative. [facility] Past Medical History Attestation statement: The following information was validated with the patient. Source: old records reviewed and nursing notes reviewed Medical History Dental infection Abdominal pain Colitis DKA (diabetic ketoacidosis) Hyperglycemia 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 type 1 Social History Social History Household Members: Other Household Members Other:: cousin Housing: House Do you presently have visiting nurse or other home services: No Alcohol intake: current Alcohol intake frequency: a few times a month Patient Tobacco Use Status: Current everyday Tobacco user Tobacco use type: Cigarette Cigarette Packs Per Day: 0 Cigarettes Per Day: 0 Years Smoked: 10 e-Cigarette/Vaping Use: Never Used Second Hand Smoke Exposure: No Substance Use Type: Marijuana service: No Current occupational status: employed Physical Exam ED Vital Signs: Vital Signs - 24 hr 02/23/24 12:30 02/23/24 16:56 02/23/24 19:01 Temperature 98.7 F 98.0 F Pulse Rate 74 78 78 Respiratory Rate 14 19 19 Blood Pressure 98/57 L 121/80 121/80 Pulse Oximetry 98 100 100 Oxygen Delivery Method Room Air Room Air BMI result Body Mass Index 18.7 Vital signs stable, afebrile Const General: cooperative, healthy appearing, comfortable and no acute distress Orientation/consciousness: patient oriented x3 Limitations: no limitations HENNY Head: Yes normal to inspection, Yes No palpable skull fracture present, Yes normocephalic and Yes atraumatic Eyes General: appearance normal, both eyes and all related structures Pupils: Equal, round and reactive pupils present Neck Neck: Yes normal visual inspection, Yes full ROM, Yes no lymphadenopathy and Yes no meningeal signs Resp Effort & Inspection: normal respiratory effort and able to speak in complete sentences Auscultation: clear to auscultation bilaterally Cardio Rate: regular rate Rhythm: regular rhythm GI Other: Abdomen soft, tender to palpation of epigastric region without rebound tenderness or guarding, normoactive bs x4. General: Yes no CVA tenderness Back/Spine/Pelvis Back: no CVA tenderness Neuro General: patient oriented x3 and no meningeal signs Cranial nerves: Yes Equal, round and reactive pupils present Course Course Course Narrative: 1100-- Initial POC on arrival 74. Repeat POC 69. Patient has been unable to tolerate any p.o. intake. I attempted p.o. trial after Zofran administration and he was still unable to tolerate p.o. intake. As POC is trending downward, will order D5/LR and re-evaluate. CBC does not demonstrate leukocytosis or left shift. Chronic microcytic anemia, stable when compared to priors. chemistry without acute electrolyte abnormality requiring intervention. normal renal function. normal liver function, CK 123 wnl > no concern for rhabdo. UA without infection/ blood. ethanol undetectable. utox positive for marijuana along w/ opioids however patient medicated w/ morphine. he tested negative for covid, flu, rsv. 1340-- -- repeat POC improved to 78. patient still unable to tolerate PO intake. D5NS ordered. CT abdomen/ pelvis unremarkable. discussed results with patient. he is currently declining reglan. will continue to PO trial and re-evaluate POC. 1600-- Patient stable at the end of my shift. sign-out given to Alanna GOMEZ pending repeat POC and disposition. Reevaluation(s) Reevaluation #1: Patient re-evaluated at the bedside. He is tolerating p.o.. His sugar was in the 140s. His D5 has been turned off and he continued to tolerate p.o.. He is stable for discharge home with antiemetics. Time: 18:36 Medical Decision Making Medical Decision Making [facility] Narrative: 29 year old male with pmhx significnat for Barretts esophagus, gastroparesis, type 1 diabetes, DKA, and colitis presents to the ED via EMS from home for evaluation of nausea, vomiting, and 10/10 epigastric abdominal pain x3 days. He is nontoxic appearing. vital signs stable. Abdomen soft, tender to palpation of epigastric region without rebound tenderness or guarding, normoactive bs x4. no cvat b/l. skin w/d/i. no raches. Differential diagnosis includes hypogylcemia, hyperglycemia, dehydration, anemia, electrolyte abnormality Plan for labs, POC, IVF, ct scan abd/pelvis, and re-evaluation. Differential Diagnosis Differential Diagnoses: The differential diagnosis associated with the presentation includes As above Admission/Observation Consideration of admission/observation: Escalation of care including admission/observation considered Admission considered on presentation Lab Data [facility] Lab Attestation statement: I reviewed the patient's lab results. As above 02/23/24 09:12 02/23/24 09:12 Labs: Lab Results 02/23/24 02/23/24 02/23/24 Range/Units 08:58 09:12 09:12 WBC 7.5 (4.8-10.8) X10*3/uL RBC 5.39 (4.60-5.80) X10*6/uL Hgb 14.2 (14.0-18.0) g/dl Hct 41.6 L (42.0-52.0) % MCV 77.2 L (80.0-98.0) fL MCH 26.3 L (27.0-33.0) pg MCHC 34.1 (31.0-36.0) g/dl RDW 14.0 (11.0-16.0) % Plt Count 302 (160-400) X10*3/uL MPV 10.5 (9.4-12.4) fL Immature Gran % (Auto) 0.3 (0.0-0.4) % Neut % (Auto) 55.3 (45-73) % Lymph % (Auto) 35.8 (20-40) % [place] % (Auto) 6.2 (2-11) % Eos % (Auto) 1.7 (0-4) % Baso % (Auto) 0.7 (0-2) % Lymph # (Auto) 2.7 (1.2-4.9) X10*3/uL [place] # (Auto) 0.5 (0.1-1.2) X10*3/uL Eos # (Auto) 0.1 (0.0-0.4) X10*3/uL Baso # (Auto) 0.1 (0.0-0.2) X10*3/uL Abs Immat Gran (auto) 0.02 (0.00-0.03) X10*3/uL Absolute Neuts (auto) 4.2 (2.0-8.3) x10*3/uL Absolute Nucleated RBC 0.000 (0.0-0.012) X10*3/uL Nucleated RBC % (auto) 0.0 (0.0-0.2) /100WBC VBG pH (7.32-7.43) VBG pCO2 mmHg VBG pO2 mmHg VBG HCO3 (22-26) mmol/L VBG O2 Saturation % VBG Base Excess mmol/L Sodium 141 140 (135-145) mmol/L Potassium 3.2 L D (3.3-5.1) mmol/L Chloride (96-108) mmol/L Carbon Dioxide (22-29) mmol/L Anion Gap (12-20) BUN (9-16) mg/dL Creatinine (0.5-1.4) mg/dL Estim Creat Clear Calc Estimated GFR POC Glucose 74 (60-115) mg/dL Random Glucose (60-115) mg/dL Calcium (8.4-10.2) mg/dL Magnesium (1.6-2.6) mg/dL Total Bilirubin (0.0-1.0) mg/dL AST (5-37) U/L ALT (0-40) U/L Alkaline Phosphatase (39-117) U/L Total Creatine Kinase Total Protein (6.5-8.0) g/dL Albumin (3.5-5.0) g/dL Lipase (8-78) U/L Hold Yellow Top Urine Color Urine Appearance Urine pH (5.0-9.0) Ur Specific [place] (1.005-1.025) Urine Protein (Neg-Trace) mg/dL Urine Glucose (UA) (Negative) mg/dL Urine Ketones (Negative) mg/dL Urine Blood (Negative) Urine Nitrite (Negative) Ur Leukocyte Esterase (Negative) Urine RBC (0-2) /HPF Urine WBC (0-5) /HPF Ur Squamous Epith Cells (0-2) /HPF Urine Bacteria (None Seen) Hyaline Casts (0-2) /LPF Urine Opiates Screen (Not Detect) Ur Buprenorphine Scrn (Not Detect) ng/mL Ur Oxycodone Screen (Not Detect) ng/mL Urine Methadone Screen (Not Detect) ng/mL Urine Fentanyl Screen (Not Detect) Ur Barbiturates Screen (Not Detect) Ur Phencyclidine Scrn (Not Detect) Ur Amphetamines Screen (Not Detect) U Benzodiazepines Scrn (Not Detect) Urine Cocaine Screen (Not Detect) U Marijuana (THC) Screen (Not Detect) Ethyl Alcohol mg/dL Influenza Type A (PCR) (Negative) Influenza Type B (PCR) (Negative) RSV RNA Qual (PCR) (Negative) SARS-CoV-2 RNA (RT-PCR) (Negative) 02/23/24 02/23/24 02/23/24 Range/Units 09:12 09:12 09:12 WBC (4.8-10.8) X10*3/uL RBC (4.60-5.80) X10*6/uL Hgb (14.0-18.0) g/dl Hct (42.0-52.0) % MCV (80.0-98.0) fL MCH (27.0-33.0) pg MCHC (31.0-36.0) g/dl RDW (11.0-16.0) % Plt Count (160-400) X10*3/uL MPV (9.4-12.4) fL Immature Gran % (Auto) (0.0-0.4) % Neut % (Auto) (45-73) % Lymph % (Auto) (20-40) % [place] % (Auto) (2-11) % Eos % (Auto) (0-4) % Baso % (Auto) (0-2) % Lymph # (Auto) (1.2-4.9) X10*3/uL [place] # (Auto) (0.1-1.2) X10*3/uL Eos # (Auto) (0.0-0.4) X10*3/uL Baso # (Auto) (0.0-0.2) X10*3/uL Abs Immat Gran (auto) (0.00-0.03) X10*3/uL Absolute Neuts (auto) (2.0-8.3) x10*3/uL Absolute Nucleated RBC (0.0-0.012) X10*3/uL Nucleated RBC % (auto) (0.0-0.2) /100WBC VBG pH (7.32-7.43) VBG pCO2 mmHg VBG pO2 mmHg VBG HCO3 (22-26) mmol/L VBG O2 Saturation % VBG Base Excess mmol/L Sodium (135-145) mmol/L Potassium 3.3 (3.3-5.1) mmol/L Chloride 102 102 (96-108) mmol/L Carbon Dioxide 26 25 (22-29) mmol/L Anion Gap 16 (12-20) BUN (9-16) mg/dL Creatinine (0.5-1.4) mg/dL Estim Creat Clear Calc Estimated GFR POC Glucose (60-115) mg/dL Random Glucose (60-115) mg/dL Calcium (8.4-10.2) mg/dL Magnesium (1.6-2.6) mg/dL Total Bilirubin (0.0-1.0) mg/dL AST (5-37) U/L ALT (0-40) U/L Alkaline Phosphatase (39-117) U/L Total Creatine Kinase Total Protein (6.5-8.0) g/dL Albumin (3.5-5.0) g/dL Lipase (8-78) U/L Hold Yellow Top Urine Color Urine Appearance Urine pH (5.0-9.0) Ur Specific [place] (1.005-1.025) Urine Protein (Neg-Trace) mg/dL Urine Glucose (UA) (Negative) mg/dL Urine Ketones (Negative) mg/dL Urine Blood (Negative) Urine Nitrite (Negative) Ur Leukocyte Esterase (Negative) Urine RBC (0-2) /HPF Urine WBC (0-5) /HPF Ur Squamous Epith Cells (0-2) /HPF Urine Bacteria (None Seen) Hyaline Casts (0-2) /LPF Urine Opiates Screen (Not Detect) Ur Buprenorphine Scrn (Not Detect) ng/mL Ur Oxycodone Screen (Not Detect) ng/mL Urine Methadone Screen (Not Detect) ng/mL Urine Fentanyl Screen (Not Detect) Ur Barbiturates Screen (Not Detect) Ur Phencyclidine Scrn (Not Detect) Ur Amphetamines Screen (Not Detect) U Benzodiazepines Scrn (Not Detect) Urine Cocaine Screen (Not Detect) U Marijuana (THC) Screen (Not Detect) Ethyl Alcohol mg/dL Influenza Type A (PCR) (Negative) Influenza Type B (PCR) (Negative) RSV RNA Qual (PCR) (Negative) SARS-CoV-2 RNA (RT-PCR) (Negative) 02/23/24 02/23/24 02/23/24 Range/Units 09:12 09:12 09:12 WBC (4.8-10.8) X10*3/uL RBC (4.60-5.80) X10*6/uL Hgb (14.0-18.0) g/dl Hct (42.0-52.0) % MCV (80.0-98.0) fL MCH (27.0-33.0) pg MCHC (31.0-36.0) g/dl RDW (11.0-16.0) % Plt Count (160-400) X10*3/uL MPV (9.4-12.4) fL Immature Gran % (Auto) (0.0-0.4) % Neut % (Auto) (45-73) % Lymph % (Auto) (20-40) % [place] % (Auto) (2-11) % Eos % (Auto) (0-4) % Baso % (Auto) (0-2) % Lymph # (Auto) (1.2-4.9) X10*3/uL [place] # (Auto) (0.1-1.2) X10*3/uL Eos # (Auto) (0.0-0.4) X10*3/uL Baso # (Auto) (0.0-0.2) X10*3/uL Abs Immat Gran (auto) (0.00-0.03) X10*3/uL Absolute Neuts (auto) (2.0-8.3) x10*3/uL Absolute Nucleated RBC (0.0-0.012) X10*3/uL Nucleated RBC % (auto) (0.0-0.2) /100WBC VBG pH (7.32-7.43) VBG pCO2 mmHg VBG pO2 mmHg VBG HCO3 (22-26) mmol/L VBG O2 Saturation % VBG Base Excess mmol/L Sodium (135-145) mmol/L Potassium (3.3-5.1) mmol/L Chloride (96-108) mmol/L Carbon Dioxide (22-29) mmol/L Anion Gap 16 (12-20) BUN 12 13 (9-16) mg/dL Creatinine 0.81 0.80 (0.5-1.4) mg/dL Estim Creat Clear Calc 120.2 Estimated GFR POC Glucose (60-115) mg/dL Random Glucose (60-115) mg/dL Calcium (8.4-10.2) mg/dL Magnesium (1.6-2.6) mg/dL Total Bilirubin (0.0-1.0) mg/dL AST (5-37) U/L ALT (0-40) U/L Alkaline Phosphatase (39-117) U/L Total Creatine Kinase Total Protein (6.5-8.0) g/dL Albumin (3.5-5.0) g/dL Lipase (8-78) U/L Hold Yellow Top Urine Color Urine Appearance Urine pH (5.0-9.0) Ur Specific [place] (1.005-1.025) Urine Protein (Neg-Trace) mg/dL Urine Glucose (UA) (Negative) mg/dL Urine Ketones (Negative) mg/dL Urine Blood (Negative) Urine Nitrite (Negative) Ur Leukocyte Esterase (Negative) Urine RBC (0-2) /HPF Urine WBC (0-5) /HPF Ur Squamous Epith Cells (0-2) /HPF Urine Bacteria (None Seen) Hyaline Casts (0-2) /LPF Urine Opiates Screen (Not Detect) Ur Buprenorphine Scrn (Not Detect) ng/mL Ur Oxycodone Screen (Not Detect) ng/mL Urine Methadone Screen (Not Detect) ng/mL Urine Fentanyl Screen (Not Detect) Ur Barbiturates Screen (Not Detect) Ur Phencyclidine Scrn (Not Detect) Ur Amphetamines Screen (Not Detect) U Benzodiazepines Scrn (Not Detect) Urine Cocaine Screen (Not Detect) U Marijuana (THC) Screen (Not Detect) Ethyl Alcohol mg/dL Influenza Type A (PCR) (Negative) Influenza Type B (PCR) (Negative) RSV RNA Qual (PCR) (Negative) SARS-CoV-2 RNA (RT-PCR) (Negative) 02/23/24 02/23/24 02/23/24 Range/Units 09:12 09:12 09:12 WBC (4.8-10.8) X10*3/uL RBC (4.60-5.80) X10*6/uL Hgb (14.0-18.0) g/dl Hct (42.0-52.0) % MCV (80.0-98.0) fL MCH (27.0-33.0) pg MCHC (31.0-36.0) g/dl RDW (11.0-16.0) % Plt Count (160-400) X10*3/uL MPV (9.4-12.4) fL Immature Gran % (Auto) (0.0-0.4) % Neut % (Auto) (45-73) % Lymph % (Auto) (20-40) % [place] % (Auto) (2-11) % Eos % (Auto) (0-4) % Baso % (Auto) (0-2) % Lymph # (Auto) (1.2-4.9) X10*3/uL [place] # (Auto) (0.1-1.2) X10*3/uL Eos # (Auto) (0.0-0.4) X10*3/uL Baso # (Auto) (0.0-0.2) X10*3/uL Abs Immat Gran (auto) (0.00-0.03) X10*3/uL Absolute Neuts (auto) (2.0-8.3) x10*3/uL Absolute Nucleated RBC (0.0-0.012) X10*3/uL Nucleated RBC % (auto) (0.0-0.2) /100WBC VBG pH (7.32-7.43) VBG pCO2 mmHg VBG pO2 mmHg VBG HCO3 (22-26) mmol/L VBG O2 Saturation % VBG Base Excess mmol/L Sodium (135-145) mmol/L Potassium (3.3-5.1) mmol/L Chloride (96-108) mmol/L Carbon Dioxide (22-29) mmol/L Anion Gap (12-20) BUN (9-16) mg/dL Creatinine (0.5-1.4) mg/dL Estim Creat Clear Calc 121.7 Estimated GFR > 60 > 60 POC Glucose (60-115) mg/dL Random Glucose 69 69 (60-115) mg/dL Calcium 10.3 H D (8.4-10.2) mg/dL Magnesium (1.6-2.6) mg/dL Total Bilirubin (0.0-1.0) mg/dL AST (5-37) U/L ALT (0-40) U/L Alkaline Phosphatase (39-117) U/L Total Creatine Kinase Total Protein (6.5-8.0) g/dL Albumin (3.5-5.0) g/dL Lipase (8-78) U/L Hold Yellow Top Urine Color Urine Appearance Urine pH (5.0-9.0) Ur Specific [place] (1.005-1.025) Urine Protein (Neg-Trace) mg/dL Urine Glucose (UA) (Negative) mg/dL Urine Ketones (Negative) mg/dL Urine Blood (Negative) Urine Nitrite (Negative) Ur Leukocyte Esterase (Negative) Urine RBC (0-2) /HPF Urine WBC (0-5) /HPF Ur Squamous Epith Cells (0-2) /HPF Urine Bacteria (None Seen) Hyaline Casts (0-2) /LPF Urine Opiates Screen (Not Detect) Ur Buprenorphine Scrn (Not Detect) ng/mL Ur Oxycodone Screen (Not Detect) ng/mL Urine Methadone Screen (Not Detect) ng/mL Urine Fentanyl Screen (Not Detect) Ur Barbiturates Screen (Not Detect) Ur Phencyclidine Scrn (Not Detect) Ur Amphetamines Screen (Not Detect) U Benzodiazepines Scrn (Not Detect) Urine Cocaine Screen (Not Detect) U Marijuana (THC) Screen (Not Detect) Ethyl Alcohol mg/dL Influenza Type A (PCR) (Negative) Influenza Type B (PCR) (Negative) RSV RNA Qual (PCR) (Negative) SARS-CoV-2 RNA (RT-PCR) (Negative) 02/23/24 02/23/24 02/23/24 Range/Units 09:12 10:52 10:54 WBC (4.8-10.8) X10*3/uL RBC (4.60-5.80) X10*6/uL Hgb (14.0-18.0) g/dl Hct (42.0-52.0) % MCV (80.0-98.0) fL MCH (27.0-33.0) pg MCHC (31.0-36.0) g/dl RDW (11.0-16.0) % Plt Count (160-400) X10*3/uL MPV (9.4-12.4) fL Immature Gran % (Auto) (0.0-0.4) % Neut % (Auto) (45-73) % Lymph % (Auto) (20-40) % [place] % (Auto) (2-11) % Eos % (Auto) (0-4) % Baso % (Auto) (0-2) % Lymph # (Auto) (1.2-4.9) X10*3/uL [place] # (Auto) (0.1-1.2) X10*3/uL Eos # (Auto) (0.0-0.4) X10*3/uL Baso # (Auto) (0.0-0.2) X10*3/uL Abs Immat Gran (auto) (0.00-0.03) X10*3/uL Absolute Neuts (auto) (2.0-8.3) x10*3/uL Absolute Nucleated RBC (0.0-0.012) X10*3/uL Nucleated RBC % (auto) (0.0-0.2) /100WBC VBG pH (7.32-7.43) VBG pCO2 mmHg VBG pO2 mmHg VBG HCO3 (22-26) mmol/L VBG O2 Saturation % VBG Base Excess mmol/L Sodium (135-145) mmol/L Potassium (3.3-5.1) mmol/L Chloride (96-108) mmol/L Carbon Dioxide (22-29) mmol/L Anion Gap (12-20) BUN (9-16) mg/dL Creatinine (0.5-1.4) mg/dL Estim Creat Clear Calc Estimated GFR POC Glucose 69 (60-115) mg/dL Random Glucose (60-115) mg/dL Calcium 10.3 H (8.4-10.2) mg/dL Magnesium 1.9 (1.6-2.6) mg/dL Total Bilirubin 0.5 (0.0-1.0) mg/dL AST 18 (5-37) U/L ALT 18 (0-40) U/L Alkaline Phosphatase 77 (39-117) U/L Total Creatine Kinase Cancelled Total Protein 8.0 (6.5-8.0) g/dL Albumin 4.7 (3.5-5.0) g/dL Lipase 4 L (8-78) U/L Hold Yellow Top Cancelled Urine Color Urine Appearance Urine pH (5.0-9.0) Ur Specific [place] (1.005-1.025) Urine Protein (Neg-Trace) mg/dL Urine Glucose (UA) (Negative) mg/dL Urine Ketones (Negative) mg/dL Urine Blood (Negative) Urine Nitrite (Negative) Ur Leukocyte Esterase (Negative) Urine RBC (0-2) /HPF Urine WBC (0-5) /HPF Ur Squamous Epith Cells (0-2) /HPF Urine Bacteria (None Seen) Hyaline Casts (0-2) /LPF Urine Opiates Screen (Not Detect) Ur Buprenorphine Scrn (Not Detect) ng/mL Ur Oxycodone Screen (Not Detect) ng/mL Urine Methadone Screen (Not Detect) ng/mL Urine Fentanyl Screen (Not Detect) Ur Barbiturates Screen (Not Detect) Ur Phencyclidine Scrn (Not Detect) Ur Amphetamines Screen (Not Detect) U Benzodiazepines Scrn (Not Detect) Urine Cocaine Screen (Not Detect) U Marijuana (THC) Screen (Not Detect) Ethyl Alcohol < 10 mg/dL Influenza Type A (PCR) NEGATIVE (Negative) Influenza Type B (PCR) NEGATIVE (Negative) RSV RNA Qual (PCR) NEGATIVE (Negative) SARS-CoV-2 RNA (RT-PCR) NEGATIVE (Negative) 02/23/24 02/23/24 02/23/24 Range/Units 12:00 12:18 13:10 WBC (4.8-10.8) X10*3/uL RBC (4.60-5.80) X10*6/uL Hgb (14.0-18.0) g/dl Hct (42.0-52.0) % MCV (80.0-98.0) fL MCH (27.0-33.0) pg MCHC (31.0-36.0) g/dl RDW (11.0-16.0) % Plt Count (160-400) X10*3/uL MPV (9.4-12.4) fL Immature Gran % (Auto) (0.0-0.4) % Neut % (Auto) (45-73) % Lymph % (Auto) (20-40) % [place] % (Auto) (2-11) % Eos % (Auto) (0-4) % Baso % (Auto) (0-2) % Lymph # (Auto) (1.2-4.9) X10*3/uL [place] # (Auto) (0.1-1.2) X10*3/uL Eos # (Auto) (0.0-0.4) X10*3/uL Baso # (Auto) (0.0-0.2) X10*3/uL Abs Immat Gran (auto) (0.00-0.03) X10*3/uL Absolute Neuts (auto) (2.0-8.3) x10*3/uL Absolute Nucleated RBC (0.0-0.012) X10*3/uL Nucleated RBC % (auto) (0.0-0.2) /100WBC VBG pH 7.47 H (7.32-7.43) VBG pCO2 35 mmHg VBG pO2 66 mmHg VBG HCO3 26 (22-26) mmol/L VBG O2 Saturation 93.0 % VBG Base Excess 2.9 mmol/L Sodium (135-145) mmol/L Potassium (3.3-5.1) mmol/L Chloride (96-108) mmol/L Carbon Dioxide (22-29) mmol/L Anion Gap (12-20) BUN (9-16) mg/dL Creatinine (0.5-1.4) mg/dL Estim Creat Clear Calc Estimated GFR POC Glucose 78 (60-115) mg/dL Random Glucose (60-115) mg/dL Calcium (8.4-10.2) mg/dL Magnesium (1.6-2.6) mg/dL Total Bilirubin (0.0-1.0) mg/dL AST (5-37) U/L ALT (0-40) U/L Alkaline Phosphatase (39-117) U/L Total Creatine Kinase 123 Total Protein (6.5-8.0) g/dL Albumin (3.5-5.0) g/dL Lipase (8-78) U/L Hold Yellow Top Urine Color Urine Appearance Urine pH (5.0-9.0) Ur Specific [place] (1.005-1.025) Urine Protein (Neg-Trace) mg/dL Urine Glucose (UA) (Negative) mg/dL Urine Ketones (Negative) mg/dL Urine Blood (Negative) Urine Nitrite (Negative) Ur Leukocyte Esterase (Negative) Urine RBC (0-2) /HPF Urine WBC (0-5) /HPF Ur Squamous Epith Cells (0-2) /HPF Urine Bacteria (None Seen) Hyaline Casts (0-2) /LPF Urine Opiates Screen (Not Detect) Ur Buprenorphine Scrn (Not Detect) ng/mL Ur Oxycodone Screen (Not Detect) ng/mL Urine Methadone Screen (Not Detect) ng/mL Urine Fentanyl Screen (Not Detect) Ur Barbiturates Screen (Not Detect) Ur Phencyclidine Scrn (Not Detect) Ur Amphetamines Screen (Not Detect) U Benzodiazepines Scrn (Not Detect) Urine Cocaine Screen (Not Detect) U Marijuana (THC) Screen (Not Detect) Ethyl Alcohol mg/dL Influenza Type A (PCR) (Negative) Influenza Type B (PCR) (Negative) RSV RNA Qual (PCR) (Negative) SARS-CoV-2 RNA (RT-PCR) (Negative) 02/23/24 02/23/24 02/23/24 Range/Units 15:24 17:44 18:30 WBC (4.8-10.8) X10*3/uL RBC (4.60-5.80) X10*6/uL Hgb (14.0-18.0) g/dl Hct (42.0-52.0) % MCV (80.0-98.0) fL MCH (27.0-33.0) pg MCHC (31.0-36.0) g/dl RDW (11.0-16.0) % Plt Count (160-400) X10*3/uL MPV (9.4-12.4) fL Immature Gran % (Auto) (0.0-0.4) % Neut % (Auto) (45-73) % Lymph % (Auto) (20-40) % [place] % (Auto) (2-11) % Eos % (Auto) (0-4) % Baso % (Auto) (0-2) % Lymph # (Auto) (1.2-4.9) X10*3/uL [place] # (Auto) (0.1-1.2) X10*3/uL Eos # (Auto) (0.0-0.4) X10*3/uL Baso # (Auto) (0.0-0.2) X10*3/uL Abs Immat Gran (auto) (0.00-0.03) X10*3/uL Absolute Neuts (auto) (2.0-8.3) x10*3/uL Absolute Nucleated RBC (0.0-0.012) X10*3/uL Nucleated RBC % (auto) (0.0-0.2) /100WBC VBG pH (7.32-7.43) VBG pCO2 mmHg VBG pO2 mmHg VBG HCO3 (22-26) mmol/L VBG O2 Saturation % VBG Base Excess mmol/L Sodium (135-145) mmol/L Potassium (3.3-5.1) mmol/L Chloride (96-108) mmol/L Carbon Dioxide (22-29) mmol/L Anion Gap (12-20) BUN (9-16) mg/dL Creatinine (0.5-1.4) mg/dL Estim Creat Clear Calc Estimated GFR POC Glucose 143 H 193 H (60-115) mg/dL Random Glucose (60-115) mg/dL Calcium (8.4-10.2) mg/dL Magnesium (1.6-2.6) mg/dL Total Bilirubin (0.0-1.0) mg/dL AST (5-37) U/L ALT (0-40) U/L Alkaline Phosphatase (39-117) U/L Total Creatine Kinase Total Protein (6.5-8.0) g/dL Albumin (3.5-5.0) g/dL Lipase (8-78) U/L Hold Yellow Top Urine Color Yellow Urine Appearance Clear Urine pH >= 9.0 (5.0-9.0) Ur Specific [place] >= 1.030 H (1.005-1.025) Urine Protein 30 (1+) H (Neg-Trace) mg/dL Urine Glucose (UA) 100 H (Negative) mg/dL Urine Ketones 15 (Negative) mg/dL Urine Blood Negative (Negative) Urine Nitrite Negative (Negative) Ur Leukocyte Esterase Negative (Negative) Urine RBC 0-2 (0-2) /HPF Urine WBC 0-5 (0-5) /HPF Ur Squamous Epith Cells 0-2 (0-2) /HPF Urine Bacteria None Seen (None Seen) Hyaline Casts 0-2 (0-2) /LPF Urine Opiates Screen POSITIVE H (Not Detect) Ur Buprenorphine Scrn Not Detected (Not Detect) ng/mL Ur Oxycodone Screen Not Detected (Not Detect) ng/mL Urine Methadone Screen Not Detected (Not Detect) ng/mL Urine Fentanyl Screen Not Detected (Not Detect) Ur Barbiturates Screen Not Detected (Not Detect) Ur Phencyclidine Scrn Not Detected (Not Detect) Ur Amphetamines Screen Not Detected (Not Detect) U Benzodiazepines Scrn Not Detected (Not Detect) Urine Cocaine Screen Not Detected (Not Detect) U Marijuana (THC) Screen POSITIVE H (Not Detect) Ethyl Alcohol mg/dL Influenza Type A (PCR) (Negative) Influenza Type B (PCR) (Negative) RSV RNA Qual (PCR) (Negative) SARS-CoV-2 RNA (RT-PCR) (Negative) Independent Interpretation I performed an independent interpretation of an: EKG and CT Scan Interpretation: EKG showing sinus rhythm with short ME, rate of 79 beats per minute, QT 368, QTC 421, incomplete right bundle-branch block. No acute ischemic changes or ST elevations. Findings unchanged when compared to EKG on 01/08/2024. CT abdomen/pelvis without intra-abdominal pathology. Radiology Impression Discussion of test interpretation with radiology: I have reviewed the radiologist's reading. Radiologist Impression: EXAMINATION: CT ABDOMEN AND PELVIS WITH CONTRAST CLINICAL INFORMATION: Epigastric abdominal pain COMPARISON: CT scan of abdomen and pelvis on 12/19/2022 TECHNIQUE: Multidetector volumetric images were obtained from the superior aspect of the liver through the pubic symphysis following administration 85 mL of Omnipaque 350 intravenous contrast. Sagittal and coronal reformatted images were obtained on the technologist's workstation. Oral contrast: No This CT examination was performed using dose optimization techniques as appropriate, variously including the following: *Automated exposure control *Adjustment of mA and/or kV according to patient size (this includes techniques or standardized protocols for targeted exams where dose is matched to indication/reason for exam; i.e. extremities or head) *Use of iterative reconstruction technique DLP: 351.26 mGy-cm FINDINGS: LUNG BASES: Bilateral lung bases are clear. LIVER: No focal lesion is seen in the liver. GALLBLADDER AND BILIARY TREE: Gallbladder appears unremarkable without calcified stones. Common bile duct is not dilated. SPLEEN: The spleen is normal in size without focal lesion. PANCREAS: The pancreas appears unremarkable. ADRENAL GLANDS: Adrenal glands are normal in size without focal lesion bilaterally. KIDNEYS: Bilateral kidneys are normal in size without focal lesion. BOWELS: There is no abnormal dilatation of the large and small bowel loops. RETROPERITONEUM: No abnormally enlarged retroperitoneal lymph nodes, mass or hematoma could be seen. BLOOD VESSELS: Abdominal aorta is normal in size and smoothly patent. ABDOMINAL WALL: Abdominal subcutaneous tissue and muscle are intact. No evidence of ventral hernia. PERITONEUM: There was no ascites. There were no abdominal peritoneal inflammatory changes seen. No free peritoneal air was seen. No abnormally enlarged mesenteric lymph nodes are found. BONES: Asymmetric left L5 pars interarticulares bony defect is seen without significant L5-S1 spondylolisthesis. No fracture or dislocation. No focal bone lesion diagnostic of metastatic disease could be seen in the lumbar region. EXAMINATION: CT pelvis. FINDINGS: URINARY BLADDER: Urinary bladder fills normally with urine. BOWELS: There is no abnormal dilatation of the large and small bowel loops. Appendix is not visualized. Surgical staple is seen at the tip of cecum. GENITAL ORGANS: Seminal vesicles are unremarkable. Prostate gland is normal. LYMPH NODES: No abnormally enlarged iliac or inguinal lymph nodes are seen. PERITONEUM: No inflammatory changes, ascites or free peritoneal air are found in the pelvis. BONES: No fracture or dislocation. No focal bone lesion diagnostic of metastatic disease could be seen in the pelvis. CT/CT abdomen pelvis w IV con IMPRESSION: 1. Unchanged status post appendectomy. 2. No pelvic or abdominal inflammation or pneumoperitoneum is seen. 3. No abdominal mass lesion or lymphadenopathy is found. 4. No pelvic mass lesion, abscess or lymphadenopathy is seen. Independent Historian Clinical information obtained from an independent historian. History obtained from or confirmed by: EMS External Record Review External record reviewed: Inpatient record, Office record, Outpatient record, Prior outpatient labs, Prior outpatient radiology, Primary care record and Outside ED record Prescription Management I considered prescription management with: Other (zofran) Social Determinants Patient?s care significantly limited by Social Determinants of Health including: Other Social Determinant of Health Medications Administered Discontinued Medications Generic Name Dose Route Start Last Admin Trade Name Freq PRN Reason Stop Dose Admin Sodium Chloride 1,000 mls @ 999 mls/hr 02/23/24 10:00 02/23/24 11:30 Ns IV 02/23/24 11:00 Infused .Q1H1M JELENA Infusion Dextrose/Lactated Ringer's 1,000 mls @ 80 mls/hr 02/23/24 11:00 02/23/24 14:00 D5lr IVCONT Infused .[id number] JELENA Infusion Dextrose/Sodium Chloride 1,000 mls @ 42 mls/hr 02/23/24 13:45 02/23/24 18:15 D5ns IVCONT Infused .[id number] JELENA Infusion Iohexol 100 ml 02/23/24 11:33 02/23/24 11:34 Iohexol 350 Mg/Ml 100 Ml Infus..Btl IV 02/23/24 11:34 85 ml ONCE ONE Administration Ketorolac Tromethamine 15 mg 02/23/24 13:06 02/23/24 13:16 Ketorolac Tromethamine 15 Mg/Ml Vial IVPUSH 02/23/24 13:07 15 mg ONCE ONE Administration Metoclopramide HCl 10 mg 02/23/24 13:38 02/23/24 14:34 Metoclopramide Hcl 10 Mg/2 Ml Vial IVPUSH 02/23/24 13:39 Not Given ONCE ONE Morphine Sulfate 4 mg 02/23/24 09:58 02/23/24 10:19 Morphine Sulfate 4 Mg/Ml Cartridge IVPUSH 02/23/24 09:59 4 mg ONCE ONE Administration Protocol Ondansetron HCl 4 mg 02/23/24 09:58 02/23/24 10:19 Ondansetron Hcl 4 Mg/2 Ml Vial IVPUSH 02/23/24 09:59 4 mg ONCE ONE Administration Critical Care Time Critical Care Time Critical Care Time: No Discharge Plan Discharge Clinical Impression: Cyclical vomiting, Diabetic hypoglycemia Patient Disposition: Home, Self-Care Instructions: Acute Nausea and Vomiting (ED), What to Do if Your Blood Sugar is Low (ED) Additional Instructions: Charmaine has been sent to your pharmacy for nausea vomiting. Take this before eating so you are able to tolerate food. Continue home medications as prescribed. Make sure you are monitoring your sugars at home closely. Follow up with PCP. Stop smoking marijuana. This can make your symptoms worse. Return with new or worsening symptoms. In the case of an emergency call 911. Prescriptions: New ondansetron 4 mg tablet,disintegrating 4 mg PO DAILY PRN (Reason: nausea and vomiting) 5 Days Qty: 14 0RF No Action insulin aspart U-100 [Novolog FlexPen U-100 Insulin] 100 unit/mL (3 mL) insulin pen See Rx Instructions .ROUTE .COMPLEX Rx Instructions: 1 unit of insulin for every 35 units over 135 insulin glargine [Lantus Solostar U-100 Insulin] 100 unit/mL (3 mL) insulin pen 20 unit subcut DAILY pantoprazole [Protonix] 40 mg tablet,delayed release (DR/EC) 40 mg PO DAILY@0630 promethazine 25 mg tablet 25 mg PO TID PRN (Reason: nausea/vomiting) ketorolac 10 mg tablet 10 mg PO TID PRN (Reason: pain) 5 Days Qty: 15 0RF promethazine 25 mg tablet 25 mg PO TID PRN (Reason: nausea and vomiting) Qty: 10 0RF promethazine 25 mg tablet 25 mg PO TID PRN (Reason: nausea and vomiting) Qty: 30 0RF lorazepam [Ativan] 1 mg tablet 1 mg PO BEDTIME PRN (Reason: sleep) Qty: 5 0RF Referrals: [facility] [place] Gastroenterology Services [Provider Group] Amna Urrutia NP [Primary Care Provider] - Interventions: ED Discharge Assessment Last Done: 02/23/24 19:01 Discharge Date/Time: 02/23/24 19:02 Print Language: Syrian
[2024-02-23 09:50] LABS: Basophils Absolute Auto 0.1 X10*3/uL (0.0-0.2); Basophils Percent Auto 0.7 % (0-2); Eosinophils Absolute Auto 0.1 X10*3/uL (0.0-0.4); Eosinophils Percent Auto 1.7 % (0-4); Hematocrit 41.6 % (42.0-52.0); Hemoglobin 14.2 g/dl (14.0-18.0); Imm Gran Abs Auto 0.02 X10*3/uL (0.00-0.03); Imm Gran Pct Auto 0.3 % (0.0-0.4); Lymphocytes Absolute Auto 2.7 X10*3/uL (1.2-4.9); Lymphocytes Percent Auto 35.8 % (20-40); Mean Corpuscular HGB Conc 34.1 g/dl (31.0-36.0); Mean Corpuscular Hemoglobin 26.3 pg (27.0-33.0); Mean Corpuscular Volume 77.2 fL (80.0-98.0); Mean Platelet Volume 10.5 fL (9.4-12.4); Monocytes Absolute Auto 0.5 X10*3/uL (0.1-1.2); Monocytes Percent Auto 6.2 % (2-11); Neutrophils Absolute Auto 4.2 x10*3/uL (2.0-8.3); Neutrophils Percent Auto 55.3 % (45-73); Platelet Count 302 X10*3/uL (160-400); Red Blood Count 5.39 X10*6/uL (4.60-5.80); White Blood Count 7.5 X10*3/uL (4.8-10.8)
--- NOTE | 2024-02-23 10:09 | ECG_ITS ---
Test Reason : abdominal pain Blood Pressure : / mmHG Vent. Rate : 079 BPM Atrial Rate : 079 BPM P-R Int : 104 ms QRS Dur : 102 ms QT Int : 368 ms P-R-T Axes : 042 -33 -28 degrees QTc Int : 421 ms Sinus rhythm with short MT Left axis deviation Incomplete right bundle branch block Abnormal ECG When compared with ECG of 08-JAN-2024 20:50, T wave inversion now evident in Inferior leads Referred By: Vivian Lopez Electronically Signed By:ABIODUN BENSON
[2024-02-23 10:13] LABS: Anion Gap 16 (12-20); Blood Urea Nitrogen 12 mg/dL (9-16); Calcium 10.3 mg/dL (8.4-10.2); Carbon Dioxide 26 mmol/L (22-29); Chloride 102 mmol/L (96-108); Creatinine Clr Calc Pharmacy 120.2; Estimated Glomerular Filt Rate > 60; Glucose Random 69 mg/dL (60-115); Potassium 3.2 mmol/L (3.3-5.1); Sodium 141 mmol/L (135-145)
[2024-02-23 10:17] LABS: Glucose, Whole Blood 74 mg/dL (60-115)
[2024-02-23] MEDS: Morphine Sulfate 4 MG/ML CARTRIDGE IVPUSH (10:19)
[2024-02-23] MEDS: ondansetron HCL 4 MG/2 ML VIAL IVPUSH (10:19)
[2024-02-23] MEDS: 0.9 % Sodium Chloride 1,000 ML 999 ML IV (10:23)
[2024-02-23 10:59] LABS: Glucose, Whole Blood 69 mg/dL (60-115)
[2024-02-23 11:19] LABS: Alanine Aminotransferase 18 U/L (0-40); Albumin Level 4.7 g/dL (3.5-5.0); Alkaline Phosphatase 77 U/L (39-117); Anion Gap 16 (12-20); Aspartate Amino Transferase 18 U/L (5-37); Bilirubin Total 0.5 mg/dL (0.0-1.0); Blood Urea Nitrogen 13 mg/dL (9-16); Calcium 10.3 mg/dL (8.4-10.2); Carbon Dioxide 25 mmol/L (22-29); Chloride 102 mmol/L (96-108); Creatinine Clr Calc Pharmacy 121.7; Estimated Glomerular Filt Rate > 60; Glucose Random 69 mg/dL (60-115); Lipase 4 U/L (8-78); Magnesium 1.9 mg/dL (1.6-2.6); Potassium 3.3 mmol/L (3.3-5.1); Sodium 140 mmol/L (135-145)
[2024-02-23] MEDS: iohexoL 350 MG/ML 100 ML INFUS..BTL IV (11:34)
[2024-02-23 11:36] LABS: Ethanol < 10 mg/dL
[2024-02-23 11:38] LABS: Influenza A PCR NEGATIVE (Negative); Influenza B PCR NEGATIVE (Negative); Resp Syncy Virus RNA Qual PCR NEGATIVE (Negative); SARS COV2 PCR INHOUSE NEGATIVE (Negative)
[2024-02-23] MEDS: Dextrose 5 % and Lactated Ring 1,000 ML 80 ML IVCONT (12:03)
[2024-02-23 12:27] LABS: VBG Base Excess 2.9 mmol/L; VBG HCO3 26 mmol/L (22-26); VBG pCO2 35 mmHg; VBG pH 7.47 (7.32-7.43); VBG pO2 66 mmHg
[2024-02-23 12:27] LABS: Venous Blood Gas Refer to POC result
[2024-02-23] MEDS: Ketorolac Tromethamine 15 MG/ML VIAL IVPUSH (13:16)
[2024-02-23 13:17] LABS: Glucose, Whole Blood 78 mg/dL (60-115)
[2024-02-23] MEDS: Dextrose 5 % and 0.9 % NaCl 1,000 ML 42 ML IVCONT (14:24)
[2024-02-23 15:36] LABS: Appearance Urine Clear; Color Urine Yellow; Glucose Urine UA 100 mg/dL (Negative); Leukocyte Esterase Urine Negative (Negative); Nitrite Urine Negative (Negative); PH >= 9.0 (5.0-9.0); Specific Gravity - Urine >= 1.030 (1.005-1.025); UMIC TRIGGER UACC YES; Urine Blood Negative (Negative); Urine Ketones 15 mg/dL (Negative); Urine Protein 30 (1+) mg/dL (Neg-Trace)
[2024-02-23 15:46] LABS: Bacteria Urine None Seen (None Seen); Hyaline Casts Urine 0-2 /LPF (0-2); RBC Urine 0-2 /HPF (0-2); Squamous Epithelial Cell Urine 0-2 /HPF (0-2); WBC Urine 0-5 /HPF (0-5)
[2024-02-23 15:48] LABS: Amphetamine Screen Urine Not Detected (Not Detect); Barbiturates, Urine Not Detected (Not Detect); Benzodiazepines Screen Urine Not Detected (Not Detect); Buprenorphine Scr Not Detected (Not Detect); Cannabinoid Screen Urine POSITIVE (Not Detect); Cocaine Screen Urine Not Detected (Not Detect); Fentanyl, urine Not Detected (Not Detect); Methadone Screen, Urine Not Detected (Not Detect); Opiate Screen Urine POSITIVE (Not Detect); Oxycodone Screen Urine Not Detected (Not Detect); Phencyclidine Screen Urine Not Detected (Not Detect)
[2024-02-23 17:48] LABS: Glucose, Whole Blood 143 mg/dL (60-115)
[2024-02-23 18:35] LABS: Glucose, Whole Blood 193 mg/dL (60-115)
== END 2024-02-23 19:02 | disposition home or self-care (01) ==
PROVIDERS: Physician Assistant Medical; Emergency Provider Emergency Medicine Emergency Medical Services; PCP Nurse Practitioner Family
DX: R11.15 Cyclical vomiting syndrome unrelated to migraine (principal); E10.649 Type 1 diabetes mellitus with hypoglycemia without coma; R10.13 Epigastric pain; F12.90 Cannabis use, unspecified, uncomplicated; F17.210 Nicotine dependence, cigarettes, uncomplicated; Z03.818 Encounter for observation for suspected exposure to other biological agents ruled out; Z79.4 Long term (current) use of insulin; Z79.899 Other long term (current) drug therapy
CPT/HCPCS: 0241U; 36415; 74177; 80048; 80053; 80307; 81001; 82550; 82803; 82947; 83690; 83735; 85025; 93005; 96361; 96365; 96366; 96375; 99284; 99285; J1885; J2270; J2405; Q9967

== ENCOUNTER → 2024-02-23 10:09 | Outpatient (BNV) | payer MEDICAID, SELFPAY | PROVIDERS: Emergency Provider Emergency Medicine Emergency Medical Services; PCP Nurse Practitioner Family; Visit Provider Internal Medicine | DX: R94.31 Abnormal electrocardiogram [ECG] [EKG] (principal) | CPT/HCPCS: 93010 ==

== ENCOUNTER 2024-02-28 13:40 | Emergency (ER) | payer MEDICAID, SELFPAY ==
[2024-02-28 13:48] VITALS: BP 118/88; PULSE 86; O2SAT 99
== END 2024-02-28 14:25 | disposition left against medical advice (07) ==
PROVIDERS: Emergency Provider Emergency Medicine; PCP Nurse Practitioner Family
DX: R10.9 Unspecified abdominal pain (principal); M54.50 Low back pain, unspecified; R11.2 Nausea with vomiting, unspecified

== ENCOUNTER 2024-03-06 01:32 | Emergency (ER) | payer MEDICAID, SELFPAY ==
[2024-03-06 01:38] VITALS: BP 132/80; BP 137/82; PULSE 86; PULSE 90; RESP 18; TEMP 36.8; O2SAT 100; O2SAT 99; BMI 18.4
--- NOTE | 2024-03-06 01:53 | PC.NURSE ---
Pt sent to [facility] from EMS - holding administration of ordered medication until pt is given a room in ED d/t inability to adequately monitor pt in [facility].
[2024-03-06 02:01] LABS: MANUAL DIFF FLAG NO
[2024-03-06 02:02] LABS: Basophils Absolute Auto 0.1 X10*3/uL (0.0-0.2); Basophils Percent Auto 0.4 % (0-2); Eosinophils Percent Auto 0.2 % (0-4); Hematocrit 40.1 % (42.0-52.0); Hemoglobin 13.7 g/dl (14.0-18.0); Imm Gran Abs Auto 0.05 X10*3/uL (0.00-0.03); Imm Gran Pct Auto 0.4 % (0.0-0.4); Lymphocytes Absolute Auto 1.8 X10*3/uL (1.2-4.9); Lymphocytes Percent Auto 13.1 % (20-40); Mean Corpuscular HGB Conc 34.2 g/dl (31.0-36.0); Mean Corpuscular Hemoglobin 26.4 pg (27.0-33.0); Mean Corpuscular Volume 77.4 fL (80.0-98.0); Mean Platelet Volume 10.4 fL (9.4-12.4); Monocytes Absolute Auto 0.7 X10*3/uL (0.1-1.2); Neutrophils Absolute Auto 11.1 x10*3/uL (2.0-8.3); Neutrophils Percent Auto 80.9 % (45-73); Platelet Count 299 X10*3/uL (160-400); Red Blood Count 5.18 X10*6/uL (4.60-5.80); Red Cell Distribution Width 13.8 % (11.0-16.0); White Blood Count 13.7 X10*3/uL (4.8-10.8)
[2024-03-06 02:34] LABS: Alanine Aminotransferase 15 U/L (0-40); Albumin Level 4.7 g/dL (3.5-5.0); Alkaline Phosphatase 90 U/L (39-117); Anion Gap 22 (12-20); Aspartate Amino Transferase 15 U/L (5-37); Bilirubin Direct 0.2 mg/dL (0.0-0.5); Bilirubin Total 0.7 mg/dL (0.0-1.0); Blood Urea Nitrogen 17 mg/dL (9-16); Calcium 10.3 mg/dL (8.4-10.2); Carbon Dioxide 19 mmol/L (22-29); Chloride 103 mmol/L (96-108); Creatinine Clr Calc Pharmacy 104.3; Estimated Glomerular Filt Rate > 60; Glucose Random 217 mg/dL (60-115); Lipase < 4 U/L (8-78); Magnesium 1.7 mg/dL (1.6-2.6); Potassium 3.8 mmol/L (3.3-5.1); Sodium 140 mmol/L (135-145); Total Protein 7.9 g/dL (6.5-8.0)
[2024-03-06 03:09] VITALS: BP 134/96; PULSE 93; RESP 22; TEMP 36.6; O2SAT 99
[2024-03-06 03:12] LABS: Glucose, Whole Blood 251 mg/dL (60-115)
[2024-03-06] MEDS: 0.9 % Sodium Chloride 1,000 ML 999 ML IV ×2 (03:19)
[2024-03-06] MEDS: LORazepam 2 MG/ML VIAL IVPUSH (03:40)
--- NOTE | 2024-03-06 03:47 | ED.ABDPAIN ---
HPI - Abdominal Pain General Chief Complaint: Abdominal Pain Stated Complaint: KIDNEY PAIN Time Seen by Provider: 03/06/24 03:15 Source: patient, EMS and old records reviewed Mode of arrival: EMS Limitations: no limitations History of Present Illness ED Provider: GERHARD ESCALERA narrative: 29 yo male with gastroparesis, DM, DKA, severe anxiety, THC use, non compliance in the past just had CT scan on 02/22 of abdomen and pelvis no acute findings and no stones seen on CT scan he presents again today with c/o n/v abdominal pain weight loss he is wretching loudly and dry heaving as he usually does. He states he is taking all of his medications, he has severe anxiety. He wants to be hospitalized. He is still smoking THC. MD elicited complaint: abdominal pain (n/v) Pertinent past history: other (abdominal pain) Onset (ago): week(s) (1) Pain Consistency: intermittent Location: none Severity: moderate Quality: aching Radiation: none Exacerbating factors: eating and other (stress) Relieving factors: nothing Context: history of similar episodes Associated symptoms: nausea and vomiting Related Data Home Medications ?Medication ?Instructions ?Recorded ?Confirmed insulin aspart U-100 100 unit/mL See Rx Instructions .Route .COMPLEX 12/19/22 06/01/23 (3 mL) subcutaneous pen (Novolog FlexPen U-100 Insulin aspart) insulin glargine 100 unit/mL (3 20 unit subcut DAILY 12/19/22 06/01/23 mL) subcutaneous pen (Lantus Solostar U-100 Insulin) pantoprazole 40 mg tablet,delayed 40 mg PO DAILY@0630 12/19/22 06/01/23 release (Protonix) promethazine 25 mg tablet 25 mg PO TID PRN nausea/vomiting 01/23/23 06/01/23 Previous Rx's ?Medication ?Instructions ?Recorded ketorolac 10 mg tablet 10 mg PO TID PRN pain 5 days #15 05/04/23 tabs promethazine 25 mg tablet 25 mg PO TID PRN nausea and 08/26/23 vomiting #10 tabs lorazepam 1 mg tablet (Ativan) 1 mg PO BEDTIME PRN sleep #5 tabs 01/09/24 promethazine 25 mg tablet 25 mg PO TID PRN nausea and 01/09/24 vomiting #30 tabs ondansetron 4 mg disintegrating 4 mg PO DAILY PRN nausea and 02/23/24 tablet vomiting 5 days #14 tabs Allergies Allergy/AdvReac Type Severity Reaction Status Date / Time diphenhydramine Allergy Anaphylaxis Verified 03/06/24 01:46 [From Benadryl] haloperidol [From Haldol] Allergy Difficulty Verified 03/06/24 01:46 Swallowing metoclopramide [From Reglan] AdvReac Anxiety Verified 03/06/24 01:46 Review of Systems Review of Systems Constitutional : No Weight loss, No Fever, No Chills ENT/Mouth : No sore throat, No Rhinorrhea Eyes: No Swelling, No Redness Cardiovascular : No Chest Pain, No SOB, NoEdema Respiratory : No Cough, No Sputum, No Wheezing Gastrointestinal : Positive Nausea, Positive Vomiting, no Diarrhea, positive abdominal Pain, No Hematochezia, No Melena Genitourinary : No Dysuria, No Urinary Frequency, No Hematuria, No Urgency Musculoskeletal : No joint pain, No Myalgias, No Joint Swelling Skin : No Skin Lesions, No rash Neuro : No Weakness, No Numbness, No Dizziness, No Headache Psych : pos Anxiety/Panic, No Depression All other systems reviewed and are negative. [facility] Past Medical History Attestation statement: The following information was validated with the patient. Source: old records reviewed Medical History Dental infection Abdominal pain Colitis DKA (diabetic ketoacidosis) Hyperglycemia 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 type 1 Social History Social History Household Members: Other Household Members Other:: cousin Housing: House Do you presently have visiting nurse or other home services: No Alcohol intake: current Alcohol intake frequency: a few times a month Patient Tobacco Use Status: Current everyday Tobacco user Tobacco use type: Cigarette Cigarette Packs Per Day: 0 Cigarettes Per Day: 0 Years Smoked: 10 e-Cigarette/Vaping Use: Never Used Second Hand Smoke Exposure: No Substance Use Type: Marijuana Advance Directives: No Advance Directives Information Provided: Yes Do you have a plan to hurt others: No Plan service: No Current occupational status: employed Physical Exam ED Vital Signs: Vital Signs - 24 hr 03/06/24 01:38 03/06/24 03:09 Temperature 98.2 F 97.9 F Pulse Rate 86 93 Respiratory Rate 18 22 H Blood Pressure 137/82 134/96 H Pulse Oximetry 100 99 Oxygen Delivery Method Room Air Room Air BMI result Body Mass Index 18.4 Appearance: Alert. Oriented X3. active dry heaving vomiting mild acute distress. Eyes: Pupils equal, round and reactive to light. ENT: Pharynx dry MM Neck: Normal inspection. Neck supple. CVS: Normal heart rate and rhythm. Pulses normal. Respiratory: No respiratory distress. Breath sounds normal. Abdomen: Soft and mild diffuse ttp Skin: Skin warm and dry. pale skin color. Normal skin turgor. Extremities: No lower extremity edema. No calf ttp Neuro: Oriented X 3. No motor deficit. No sensory deficit. Medical Decision Making Medical Decision Making [facility] Narrative: 29 yo male with gastroparesis, DM, DKA, severe anxiety, THC use, non compliance in the past here with n/v abdominal pain typical of gastroparesis just had CT scan 12 days ago - asking for admission also asking to talk to psych about his severe anxiety. At this time labs, IVF x 2l, IV ativan and repeat BMP after hydration. I do not think he needs medical admission if repeat labs reassuring. Will refer to CARE team if he wants when he wakes up. Differential Diagnosis Differential Diagnoses: The differential diagnosis associated with the presentation includes gastroparesis, cyclical vomiting, dehydration Admission/Observation Consideration of admission/observation: Escalation of care including admission/observation considered BMP repeat reassuring, no further vomiting, not in DKA will refer to CARE team given his concerns. physician observation started at 540am pending CARE team Lab Data [facility] Lab Attestation statement: I reviewed the patient's lab results. 03/06/24 01:56 03/06/24 05:08 Labs: Lab Results 03/06/24 03/06/24 03/06/24 Range/Units 01:56 03:06 05:08 WBC 13.7 H (4.8-10.8) X10*3/uL RBC 5.18 (4.60-5.80) X10*6/uL Hgb 13.7 L (14.0-18.0) g/dl Hct 40.1 L (42.0-52.0) % MCV 77.4 L (80.0-98.0) fL MCH 26.4 L (27.0-33.0) pg MCHC 34.2 (31.0-36.0) g/dl RDW 13.8 (11.0-16.0) % Plt Count 299 (160-400) X10*3/uL MPV 10.4 (9.4-12.4) fL Immature Gran % (Auto) 0.4 (0.0-0.4) % Neut % (Auto) 80.9 H (45-73) % Lymph % (Auto) 13.1 L (20-40) % [place] % (Auto) 5.0 (2-11) % Eos % (Auto) 0.2 (0-4) % Baso % (Auto) 0.4 (0-2) % Lymph # (Auto) 1.8 (1.2-4.9) X10*3/uL [place] # (Auto) 0.7 (0.1-1.2) X10*3/uL Eos # (Auto) 0.0 (0.0-0.4) X10*3/uL Baso # (Auto) 0.1 (0.0-0.2) X10*3/uL Abs Immat Gran (auto) 0.05 H (0.00-0.03) X10*3/uL Absolute Neuts (auto) 11.1 H (2.0-8.3) x10*3/uL Absolute Nucleated RBC 0.000 (0.0-0.012) X10*3/uL Nucleated RBC % (auto) 0.0 (0.0-0.2) /100WBC Sodium 140 140 (135-145) mmol/L Potassium 3.8 4.0 (3.3-5.1) mmol/L Chloride 103 107 (96-108) mmol/L Carbon Dioxide 19 L 22 (22-29) mmol/L Anion Gap 22 H 15 (12-20) BUN 17 H 17 H (9-16) mg/dL Creatinine 0.92 0.78 (0.5-1.4) mg/dL Estim Creat Clear Calc 104.3 123.0 Estimated GFR > 60 > 60 POC Glucose 251 H (60-115) mg/dL Random Glucose 217 H 262 H (60-115) mg/dL Calcium 10.3 H 8.6 D (8.4-10.2) mg/dL Magnesium 1.7 (1.6-2.6) mg/dL Total Bilirubin 0.7 (0.0-1.0) mg/dL Direct Bilirubin 0.2 (0.0-0.5) mg/dL AST 15 (5-37) U/L ALT 15 (0-40) U/L Alkaline Phosphatase 90 (39-117) U/L Total Protein 7.9 (6.5-8.0) g/dL Albumin 4.7 (3.5-5.0) g/dL Lipase < 4 L (8-78) U/L Independent Historian Clinical information obtained from an independent historian. History obtained from or confirmed by: EMS External Record Review External record reviewed: Inpatient record Medications Administered Discontinued Medications Generic Name Dose Route Start Last Admin Trade Name Freq PRN Reason Stop Dose Admin Sodium Chloride 1,000 mls @ 999 mls/hr 03/06/24 03:07 03/06/24 05:33 Ns IV 03/06/24 04:07 Infused .Q1H1M ONE Infusion Sodium Chloride 1,000 mls @ 999 mls/hr 03/06/24 03:07 03/06/24 05:33 Ns IV 03/06/24 04:07 Infused .Q1H1M ONE Infusion Lorazepam 2 mg 03/06/24 03:37 03/06/24 03:40 Lorazepam 2 Mg/Ml Vial IVPUSH 03/06/24 03:38 2 mg ONCE ONE Administration Discharge Plan Discharge Clinical Impression: Gastroparesis, Acute anxiety Patient Disposition: Still a Patient Instructions: Anxiety (ED), Gastroparesis (ED) Prescriptions: No Action insulin aspart U-100 [Novolog FlexPen U-100 Insulin] 100 unit/mL (3 mL) insulin pen See Rx Instructions .ROUTE .COMPLEX Rx Instructions: 1 unit of insulin for every 35 units over 135 insulin glargine [Lantus Solostar U-100 Insulin] 100 unit/mL (3 mL) insulin pen 20 unit subcut DAILY pantoprazole [Protonix] 40 mg tablet,delayed release (DR/EC) 40 mg PO DAILY@0630 promethazine 25 mg tablet 25 mg PO TID PRN (Reason: nausea/vomiting) ketorolac 10 mg tablet 10 mg PO TID PRN (Reason: pain) 5 Days Qty: 15 0RF promethazine 25 mg tablet 25 mg PO TID PRN (Reason: nausea and vomiting) Qty: 10 0RF promethazine 25 mg tablet 25 mg PO TID PRN (Reason: nausea and vomiting) Qty: 30 0RF lorazepam [Ativan] 1 mg tablet 1 mg PO BEDTIME PRN (Reason: sleep) Qty: 5 0RF ondansetron 4 mg tablet,disintegrating 4 mg PO DAILY PRN (Reason: nausea and vomiting) 5 Days Qty: 14 0RF Print Language: Nepalese
[2024-03-06 05:28] LABS: Anion Gap 15 (12-20); Blood Urea Nitrogen 17 mg/dL (9-16); Calcium 8.6 mg/dL (8.4-10.2); Carbon Dioxide 22 mmol/L (22-29); Chloride 107 mmol/L (96-108); Estimated Glomerular Filt Rate > 60; Glucose Random 262 mg/dL (60-115); Sodium 140 mmol/L (135-145)
[2024-03-06 06:20] VITALS: BP 111/68; PULSE 74; RESP 14; TEMP 36.7; O2SAT 98
[2024-03-06 08:33] VITALS: BP 104/71; PULSE 111; RESP 20; TEMP 36.8; O2SAT 100
[2024-03-06] MEDS: ondansetron HCL 4 MG/2 ML VIAL IVPUSH (09:02)
[2024-03-06] MEDS: LORazepam 1 MG TABLET 2 MG PO (09:09)
[2024-03-06 11:32] VITALS: BP 101/57; PULSE 83; RESP 18; O2SAT 98
[2024-03-06 12:53] LABS: Appearance Urine Clear; Color Urine Yellow; Glucose Urine UA >=1000 mg/dL (Negative); Leukocyte Esterase Urine Negative (Negative); Nitrite Urine Negative (Negative); PH 5.5 (5.0-9.0); Specific Gravity - Urine 1.015 (1.005-1.025); UMIC TRIGGER UACC YES; Urine Blood Negative (Negative); Urine Ketones 15 mg/dL (Negative); Urine Protein Trace mg/dL (Neg-Trace)
[2024-03-06 13:01] LABS: Amphetamine Screen Urine Not Detected (Not Detect); Barbiturates, Urine Not Detected (Not Detect); Benzodiazepines Screen Urine Not Detected (Not Detect); Buprenorphine Scr Not Detected (Not Detect); Cannabinoid Screen Urine POSITIVE (Not Detect); Cocaine Screen Urine Not Detected (Not Detect); Fentanyl, urine Not Detected (Not Detect); Methadone Screen, Urine Not Detected (Not Detect); Opiate Screen Urine Not Detected (Not Detect); Oxycodone Screen Urine Not Detected (Not Detect); Phencyclidine Screen Urine Not Detected (Not Detect)
[2024-03-06 13:15] LABS: Bacteria Urine None Seen (None Seen); Hyaline Casts Urine 0-2 /LPF (0-2); RBC Urine 0-2 /HPF (0-2); WBC Urine 0-5 /HPF (0-5)
[2024-03-06 14:20] LABS: Ethanol < 10 mg/dL
[2024-03-06] MEDS: LORazepam 1 MG TABLET PO (16:23)
[2024-03-06 16:38] VITALS: BP 101/57; PULSE 83; RESP 18; TEMP 36.8; O2SAT 98
== END 2024-03-06 16:45 | disposition home or self-care (01) ==
PROVIDERS: Emergency Medicine; Emergency Provider Emergency Medicine
DX: K31.84 Gastroparesis (principal); F41.9 Anxiety disorder, unspecified; E10.9 Type 1 diabetes mellitus without complications; F17.210 Nicotine dependence, cigarettes, uncomplicated; Z79.4 Long term (current) use of insulin; Z79.899 Other long term (current) drug therapy
CPT/HCPCS: 36415; 80048; 80076; 80307; 81001; 82947; 83690; 83735; 85025; 96361; 96374; 96375; 99284; J2060; J2405; S9485

== ENCOUNTER 2024-03-12 16:16 | Emergency (ER) | payer MEDICAID, SELFPAY ==
--- NOTE | ~2024-03-12 | XR_ITS ---
EXAMINATION: SACRUM/COCCYX LUMBAR SPINE LEFT HAND AND WRIST CLINICAL INFORMATION: Fall on outstretched hand, swelling Fall COMPARISON: None. TECHNIQUE: Frontal and lateral views of the sacrum/coccyx 3 views of the lumbar spine 5 views of the left hand and wrist FINDINGS: Sacrum/coccyx: A small density in the right pelvis is seen on only one view and could overlie the patient. No disruption of the SI joints or symphysis. No definite sacral fracture. No evidence of presacral soft tissue abnormality. Small sclerotic areas in the visualized pelvis are nonspecific. No definite aggressive features. Lumbar spine: There is likely absence of the posterior elements of the upper sacrum and possibly L5. Correlate with any previous surgery. Alternatively this may be developmental. There are 5 lumbar-type vertebrae. The alignment is within normal limits. No acute fracture. No loss of volume. No significant disc narrowing. The pedicles appear intact at L1-L4. As described there could be an anomaly on the left at L5 extending into the upper sacrum. No suspicious paraspinal abnormality. Left hand/wrist: Dedicated coned-down views of the wrist are not submitted. There is a minimally distracted transversely oriented fracture through the ulnar styloid. There is overlying soft tissue swelling. There is very slight alteration of the trabecula in the distal metaphysis of the radius and there is a tiny area of irregularity involving the cortex anteriorly and posteriorly. XR/XR hand wrist LT IMPRESSION: There may be a developmental anomaly in the posterior elements of L5 in the upper sacrum. No definite acute lumbar or sacral acute fracture. I suspect an ulnar styloid fracture and a subtle nondisplaced distal radial metaphyseal fracture. I cannot definitely confirm extension of the radial fracture to the articular surface although dedicated views might be of some value.
--- NOTE | ~2024-03-12 | XR_ITS ---
EXAMINATION: SACRUM/COCCYX LUMBAR SPINE LEFT HAND AND WRIST CLINICAL INFORMATION: Fall on outstretched hand, swelling Fall COMPARISON: None. TECHNIQUE: Frontal and lateral views of the sacrum/coccyx 3 views of the lumbar spine 5 views of the left hand and wrist FINDINGS: Sacrum/coccyx: A small density in the right pelvis is seen on only one view and could overlie the patient. No disruption of the SI joints or symphysis. No definite sacral fracture. No evidence of presacral soft tissue abnormality. Small sclerotic areas in the visualized pelvis are nonspecific. No definite aggressive features. Lumbar spine: There is likely absence of the posterior elements of the upper sacrum and possibly L5. Correlate with any previous surgery. Alternatively this may be developmental. There are 5 lumbar-type vertebrae. The alignment is within normal limits. No acute fracture. No loss of volume. No significant disc narrowing. The pedicles appear intact at L1-L4. As described there could be an anomaly on the left at L5 extending into the upper sacrum. No suspicious paraspinal abnormality. Left hand/wrist: Dedicated coned-down views of the wrist are not submitted. There is a minimally distracted transversely oriented fracture through the ulnar styloid. There is overlying soft tissue swelling. There is very slight alteration of the trabecula in the distal metaphysis of the radius and there is a tiny area of irregularity involving the cortex anteriorly and posteriorly. XR/XR sacrum coccyx min 2V IMPRESSION: There may be a developmental anomaly in the posterior elements of L5 in the upper sacrum. No definite acute lumbar or sacral acute fracture. I suspect an ulnar styloid fracture and a subtle nondisplaced distal radial metaphyseal fracture. I cannot definitely confirm extension of the radial fracture to the articular surface although dedicated views might be of some value.
--- NOTE | ~2024-03-12 | XR_ITS ---
EXAMINATION: SACRUM/COCCYX LUMBAR SPINE LEFT HAND AND WRIST CLINICAL INFORMATION: Fall on outstretched hand, swelling Fall COMPARISON: None. TECHNIQUE: Frontal and lateral views of the sacrum/coccyx 3 views of the lumbar spine 5 views of the left hand and wrist FINDINGS: Sacrum/coccyx: A small density in the right pelvis is seen on only one view and could overlie the patient. No disruption of the SI joints or symphysis. No definite sacral fracture. No evidence of presacral soft tissue abnormality. Small sclerotic areas in the visualized pelvis are nonspecific. No definite aggressive features. Lumbar spine: There is likely absence of the posterior elements of the upper sacrum and possibly L5. Correlate with any previous surgery. Alternatively this may be developmental. There are 5 lumbar-type vertebrae. The alignment is within normal limits. No acute fracture. No loss of volume. No significant disc narrowing. The pedicles appear intact at L1-L4. As described there could be an anomaly on the left at L5 extending into the upper sacrum. No suspicious paraspinal abnormality. Left hand/wrist: Dedicated coned-down views of the wrist are not submitted. There is a minimally distracted transversely oriented fracture through the ulnar styloid. There is overlying soft tissue swelling. There is very slight alteration of the trabecula in the distal metaphysis of the radius and there is a tiny area of irregularity involving the cortex anteriorly and posteriorly. XR/XR lumbar spine 2-3V IMPRESSION: There may be a developmental anomaly in the posterior elements of L5 in the upper sacrum. No definite acute lumbar or sacral acute fracture. I suspect an ulnar styloid fracture and a subtle nondisplaced distal radial metaphyseal fracture. I cannot definitely confirm extension of the radial fracture to the articular surface although dedicated views might be of some value.
[2024-03-12 16:20] VITALS: BP 127/87; PULSE 99; RESP 20; TEMP 36.9; O2SAT 100; BMI 18.5
--- NOTE | 2024-03-12 16:20 | ED_ITS ---
HPI - Extremity Injury (Upper) General Chief Complaint: Fall Stated Complaint: L wrist injury Time Seen by Provider: 03/12/24 18:33 Source: patient Mode of arrival: ambulatory Limitations: no limitations History of Present Illness HPI narrative: This is a 29-year-old man with a past medical history of Gates's esophagus, gastroparesis, type 1 diabetes mellitus and colitis who presents for evaluation of for back pain and left wrist pain/swelling. Patient reports that he was playing basketball and states that his niece ?crossed him up pretty good?. He states that he fell backwards onto his hand and buttocks. He states no head strike or LOC. he states no associated chest pain, palpitations, lightheadedness or dyspnea. He states no abdominal pain. He reports some pain to his lower back. He states no paresthesias. He states no urinary retention or urinary incontinence. He states no retention or incontinence of stool. He states no saddle paresthesias or lower extremity paresthesias. He states majority of his pain is in his left wrist. He states no pain in his elbow or shoulder. Related Data Home Medications ?Medication ?Instructions ?Recorded ?Confirmed insulin aspart U-100 100 unit/mL See Rx Instructions .Route .COMPLEX 12/19/22 06/01/23 (3 mL) subcutaneous pen (Novolog FlexPen U-100 Insulin aspart) insulin glargine 100 unit/mL (3 20 unit subcut DAILY 12/19/22 06/01/23 mL) subcutaneous pen (Lantus Solostar U-100 Insulin) pantoprazole 40 mg tablet,delayed 40 mg PO DAILY@0630 12/19/22 06/01/23 release (Protonix) promethazine 25 mg tablet 25 mg PO TID PRN nausea/vomiting 01/23/23 06/01/23 Previous Rx's ?Medication ?Instructions ?Recorded ketorolac 10 mg tablet 10 mg PO TID PRN pain 5 days #15 05/04/23 tabs promethazine 25 mg tablet 25 mg PO TID PRN nausea and 08/26/23 vomiting #10 tabs lorazepam 1 mg tablet (Ativan) 1 mg PO BEDTIME PRN sleep #5 tabs 01/09/24 promethazine 25 mg tablet 25 mg PO TID PRN nausea and 01/09/24 vomiting #30 tabs ondansetron 4 mg disintegrating 4 mg PO DAILY PRN nausea and 02/23/24 tablet vomiting 5 days #14 tabs lorazepam 1 mg tablet 1 mg PO BID PRN anxiety #7 tabs 03/06/24 Allergies Allergy/AdvReac Type Severity Reaction Status Date / Time diphenhydramine Allergy Anaphylaxis Verified 03/12/24 16:23 [From Benadryl] haloperidol [From Haldol] Allergy Difficulty Verified 03/12/24 16:23 Swallowing metoclopramide [From Reglan] AdvReac Anxiety Verified 03/12/24 16:23 Review of Systems Review of Systems: ROS as per HPI [facility] Past Medical History Medical History Dental infection Abdominal pain Colitis DKA (diabetic ketoacidosis) Hyperglycemia 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 type 1 Social History Social History Household Members: Other Household Members Other:: cousin Housing: House Do you presently have visiting nurse or other home services: No Alcohol intake: current Alcohol intake frequency: a few times a month Patient Tobacco Use Status: Current everyday Tobacco user Tobacco use type: Cigarette Cigarette Packs Per Day: 0 Cigarettes Per Day: 0 Years Smoked: 10 e-Cigarette/Vaping Use: Never Used Second Hand Smoke Exposure: No Substance Use Type: Marijuana Advance Directives: No Advance Directives Information Provided: No Do you have a plan to hurt others: No Plan service: No Current occupational status: employed Physical Exam Vital Signs: Vital Signs: Last Vital Signs Temp 98.5 F 03/12/24 19:36 Pulse 99 03/12/24 19:36 Resp 20 03/12/24 19:36 BP 127/87 03/12/24 19:36 Pulse Ox 100 03/12/24 19:36 O2 Del Method Room Air 03/12/24 19:36 BMI result Body Mass Index 18.5 Gen: NAD, AOx3 HEENT: NCAT, EOMI, normal conjunctiva, no periorbital or postauricular ecchymosis CV: RRR, 2+ bilateral radial pulses Pulm: CTAB, no increased work of breathing GI: Soft, NTND, no rebound, guarding or rigidity MSK: Distal left forearm deformity with edema and tenderness to palpation to the radial and ulnar aspects with intact overlying skin, intact motor function of the left upper extremity ulnar/median/radial/anterior interosseous nerves, hemostatic well-healing superficial abrasion to the left lower back, no midline vertebral tenderness to palpation or palpable step-offs Neuro: Grossly non focal, sensation intact to light touch in bilateral upper extremity dermatomes C6-C8, sensation intact to light touch in lower extremities L2-S2, 5/5 strength with bilateral hip/knee/ankle/hallux flexion/extension Course Course Course Narrative: This is a Rapid Medical Exam performed in triage by Josi De La Garza PA-C. Full HPI, ROS and PE to be performed by primary ED provider. 29 year-old M w/ PMHx DM presenting to the ED c/o L wrist pain, L buttock/low back pain s/p fall while playing basketball w/niece last night. denies head injury or LOC PE: +L wrist swelling & ttp. limited ROM. NV intact. Abrasions to back, +ttp Plan: XR Medications Administered Discontinued Medications Generic Name Dose Route Start Last Admin Trade Name Freq PRN Reason Stop Dose Admin Ketorolac Tromethamine 30 mg 03/12/24 18:55 03/12/24 19:02 Ketorolac Tromethamine 30 Mg/Ml Vial IM 03/12/24 18:56 30 mg ONCE ONE Administration Medical Decision Making Medical Decision Making [facility] Narrative: Differential diagnosis includes, but is not limited to left wrist fracture, left wrist sprain, abrasion. Patient is afebrile and hemodynamically stable on room air. Exam is notable for deformity to the distal left upper extremity. The affected left upper extremity is neurovascularly intact and the skin is closed. Patient's back exam is notable for area of abrasion to the lower back in the region of pain. I do not appreciate any midline vertebral tenderness to palpation the patient does not have any neurological symptoms or ?red flags? to suggest need for further imaging with MRI. I reviewed and interpreted x-ray of the left hand/wrist which demonstrates a fracture of the left radius and ulnar styloid. I discussed the x-ray results/radiology impression as below with underwriting consultant orthopedist Deo Beasley who agrees with plan of care to splint and have patient follow up as an outpatient. Patient is placed in a sugar-tong splint and provided sling. Patient is provided 30 mg IM Toradol for analgesia. On re-examination, patient is well-appearing and in no acute distress. ?There is no indication for further emergent evaluation in this otherwise well-appearing patient as above. ?Patient is provided written and verbal instructions, educational materials, recommendations for outpatient follow-up, orthopedic referral, strict return precautions and teach back is performed. ?Patient states understanding and agreement with plan of care. ?Patient is discharged home in stable and improved condition. Admission/Observation Consideration of admission/observation: Escalation of care including admission/observation considered Consult Healthcare Provider Management of the patient was discussed with: Simulation Technician (Deo Beasley) I discussed with the underwriting consultant orthopedist as above (please see MDM) Independent Interpretation I performed an independent interpretation of an: Plain X-Ray Interpretation: I reviewed and interpreted patient's left hand/wrist x-ray which demonstrates nondisplaced radius fracture and fracture of the ulnar styloid Radiology Impression Discussion of test interpretation with radiology: I have reviewed the radiologist's reading. Radiologist Impression: IMPRESSION: There may be a developmental anomaly in the posterior elements of L5 in the upper sacrum. No definite acute lumbar or sacral acute fracture. I suspect an ulnar styloid fracture and a subtle nondisplaced distal radial metaphyseal fracture. I cannot definitely confirm extension of the radial fracture to the articular surface although dedicated views might be of some value. Dictated By: Hill Nunez MD Signed By: <Electronically signed by Hill Nunez MD in OV> 03/12/24 1750 Procedures Orthopedic Splinting/Casting Injury #1: Side: left Upper Extremity Injury Location: forearm (Radius fracture or/ulnar styloid fracture) Upper Extremity Immobilizer: sling/shoulder immobilizer, sugar tong splint and Bandar wrap Discharge Plan Discharge Clinical Impression: Fall, Distal radius fracture, Fracture of ulnar styloid Patient Disposition: Home, Self-Care Instructions: Arm Fracture in Adults (ED) Additional Instructions: You were seen and evaluated in the emergency room after a fall. Your x-rays showed a fracture of your left ulnar styloid and radius bones. Your put in a splint and given a sling. Please continue to use until he follow up with Orthopedics. Please call the orthopedic clinic tomorrow to schedule a follow-up appointment in the next 1-2 weeks. Please take 600 mg ibuprofen every 6 hours as needed with food and water for pain/swelling. Please return to the emergency room with any new or concerning symptoms including, but not limited to new injury, increased pain in your arm, inability to feel with your fingers, inability to move your fingers or new numbness/tingling in your fingers/arm. Prescriptions: No Action insulin aspart U-100 [Novolog FlexPen U-100 Insulin] 100 unit/mL (3 mL) insulin pen See Rx Instructions .ROUTE .COMPLEX Rx Instructions: 1 unit of insulin for every 35 units over 135 insulin glargine [Lantus Solostar U-100 Insulin] 100 unit/mL (3 mL) insulin pen 20 unit subcut DAILY pantoprazole [Protonix] 40 mg tablet,delayed release (DR/EC) 40 mg PO DAILY@0630 promethazine 25 mg tablet 25 mg PO TID PRN (Reason: nausea/vomiting) ketorolac 10 mg tablet 10 mg PO TID PRN (Reason: pain) 5 Days Qty: 15 0RF promethazine 25 mg tablet 25 mg PO TID PRN (Reason: nausea and vomiting) Qty: 10 0RF promethazine 25 mg tablet 25 mg PO TID PRN (Reason: nausea and vomiting) Qty: 30 0RF lorazepam [Ativan] 1 mg tablet 1 mg PO BEDTIME PRN (Reason: sleep) Qty: 5 0RF ondansetron 4 mg tablet,disintegrating 4 mg PO DAILY PRN (Reason: nausea and vomiting) 5 Days Qty: 14 0RF lorazepam 1 mg tablet 1 mg PO BID PRN (Reason: anxiety) Qty: 7 0RF Referrals: [facility] [place] Orthopedic Surgeons [Provider Group] Interventions: ED Discharge Assessment Last Done: 03/12/24 19:36 Discharge Date/Time: 03/12/24 19:37 Print Language: Irish
[2024-03-12] MEDS: Ketorolac Tromethamine 30 MG/ML VIAL IM (19:02)
[2024-03-12 19:36] VITALS: BP 127/87; PULSE 99; RESP 20; TEMP 36.9; O2SAT 100
== END 2024-03-12 19:37 | disposition home or self-care (01) ==
PROVIDERS: Emergency Provider Emergency Medicine; PCP Nurse Practitioner Family
DX: S52.592A Other fractures of lower end of left radius, initial encounter for closed fracture (principal); S52.612A Displaced fracture of left ulna styloid process, initial encounter for closed fracture; W03.XXXA Other fall on same level due to collision with another person, initial encounter; Y93.67 Activity, basketball; Y92.310 Basketball court as the place of occurrence of the external cause; Y99.9 Unspecified external cause status
CPT/HCPCS: 29125; 72100; 72220; 73110; 73130; 96372; 99283; 99284; J1885

== ENCOUNTER 2024-03-19 09:02 | Outpatient (REF) | payer MEDICAID, SELFPAY ==
--- NOTE | ~2024-03-19 | XR_ITS ---
EXAMINATION: XR WRIST, LEFT CLINICAL INFORMATION: Pain in the left wrist COMPARISON: None TECHNIQUE: PA, lateral, oblique, and scaphoid views of the left wrist. FINDINGS: There is a intra-articular fracture of the distal radius without significant displacement, possibly mild dorsal buckling. There is a transverse fracture of the base of the ulnar styloid. Soft tissues are swollen. Joint spaces are well-preserved. XR/XR wrist LT w scaphoid IMPRESSION: 1. Nondisplaced intra-articular fracture of the distal radius. 2. Nondisplaced ulnar styloid fracture.
== END 2024-03-19 09:03 | disposition home or self-care (01) ==
LOC: HO.HOSX 09:02
PROVIDERS: Visit Provider Orthopaedic Surgery
DX: S52.615A Nondisplaced fracture of left ulna styloid process, initial encounter for closed fracture (principal); M25.532 Pain in left wrist; E10.9 Type 1 diabetes mellitus without complications
CPT/HCPCS: 25600; 73110; 99202

== ENCOUNTER 2024-03-19 12:02 | Outpatient (AMB) | payer MEDICAID, SELFPAY ==
--- NOTE | 2024-03-19 12:40 | MHC.OFFVIS ---
Intake Visit Reasons: FC- Left radius fx, ulnar styloid fx, DOI 03/11/24 Intake Note: Bradford is a 29 yo right hand dominant male who presents today as ED follow up for a fracture to the left radius and left ulnar styloid, DOI 03/11/24, while playing basketball. Patient reports numbness on the inner forearm as well as tingling at the base of the left thumb. Patient states left thumb is locking on. He has been experiencing shooting pains from mid forearm down to the elbow. Patient describes pain constant 8 on a 0-10 pain scale. Reports taking Extra Strength Tylenol 1000 mg TID-QID for pain without relief. Patient reports limited ROM. Allergies diphenhydramine [From Benadryl] Allergy (Verified 03/19/24 12:43) Anaphylaxis haloperidol [From Haldol] Allergy (Verified 03/19/24 12:43) Difficulty Swallowing metoclopramide [From Reglan] Adverse Reaction (Verified 03/19/24 12:43) Anxiety HPI HPI FC- Left radius fx, ulnar styloid fx, DOI 03/11/24: Details: Bradford is a 29 year old right hand dominant Diabetic man who presents for a left distal radius & ulnar styloid fracture, DOI: 03/12/24. He fell backwards while playing Basketball, was seen in the ED the same day and placed in a sugar-tong splint. He complains of pain primarily in the ulnar aspect of his wrist & forearm. He also complains of tingling in his fingers, primarily in his small finger. He says he lives alone and is very active, he is trying to get his cousin to help him with some activities but he says he does tend to overwork himself at home. He says his pain is severe and constant, he is taking Tylenol for this but says this has not been helpful. He smokes cigarettes and has Type-1 Diabetes. 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 [facility] Medical History Dental infection Abdominal pain Colitis DKA (diabetic ketoacidosis) Hyperglycemia 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 type 1 Social History (Updated 03/19/24 @ 12:49 by VETO Carcamo) Household Members: Other Household Members Other:: cousin Housing: House Do you presently have visiting nurse or other home services: No Alcohol intake: current Alcohol intake frequency: a few times a month Patient Tobacco Use Status: Current everyday Tobacco user Tobacco use type: Cigarette Cigarette Packs Per Day: 0 Cigarettes Per Day: 0 Years Smoked: 10 e-Cigarette/Vaping Use: Never Used Second Hand Smoke Exposure: No Substance Use Type: Marijuana service: No Current occupational status: employed 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 Review of Systems Const All systems reviewed & are unremarkable except as noted in HPI and below Physical Exam Const General: cooperative, healthy appearing and no acute distress Orientation/consciousness: patient oriented x3 HEENT Head: Yes normocephalic and Yes atraumatic Eyes EOM: EOMs intact bilaterally Resp Effort & Inspection: normal respiratory effort and able to speak in complete sentences Cardio Jugular venous distension: no JVD Skin General skin exam: turgor normal Rashes: no rashes Neuro General: patient oriented x3 Extrem Other: Evaluation of Left Upper Extremity: The patient is alert, oriented, and in no acute distress He appeared rather comfortable today in clinic. Neuro: Normal sensation to the tips of all digits today in clinic Vascular: Cap refill brisk ROM: With encouragement he can make a fist and extend all his digits 20 degrees wrist pronation 20 degrees wrist supination No pain with elbow flexion extension No pain with proximal forearm squeeze Tender over the ulnar styloid Tender over the distal radius Some resolving ecchymosis & fairly minimal swelling about the wrist. No lacerations or evidence of open fracture Radiographs: 3 views of the left wrist from 03/12/2024 and new ones that were taken today were viewed by me today in clinic. They show a left minimally displaced ulnar styloid base fracture, & a minimally displaced distal radius fracture. It is a transverse T-type distal radius metaphyseal fracture with extension to the articular surface at about the scapholunate interval. No apparent change in fracture alignment today when compared with 03/12/2024. Psych Appearance: grossly normal Affect: normal affect Attitude: cooperative Office Procedures Fracture Care Details: Fracture care distal radius 16814 Fracture Billing Code: Fracture Billing Code Assessment & Plan Assessment & Plan (1) Fracture of left distal radius: Code(s): S52.502A - Unspecified fracture of the lower end of left radius, initial encounter for closed fracture Category: Medical (2) Nondisplaced fracture of styloid process of left ulna: Code(s): S52.615A - Nondisplaced fracture of left ulna styloid process, initial encounter for closed fracture Category: Medical (3) Diabetes mellitus type 1: Code(s): E10.9 - Type 1 diabetes mellitus without complications Category: Medical Plan Assessment & Plan: 1. Left distal radius transverse metapyseal fracture, minimally displaced, T-type with extension to the articular surface From a basketball injury, DOI: 03/12/24 2. Left ulnar styloid fracture, From a basketball injury, DOI: 03/12/24 I educated him about these conditions I discussed operative and non-operative treatment options His fracture alignment has remained stable since last week. I believe we can manage this non-operatively, though he may need surgery if there is any movement of the fracture. This was all discussed with the patient. He was placed in a short arm cast to be worn for the next 3 weeks He will work on finger ROM exercises at home I discussed activity modification, he is to lift nothing heavier than a cellphone for the next 3 weeks. I explained the importance of not using his left hand for activities to all for healing without risking a change in fracture alignment. 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 He will follow up in 3 weeks, with X-rays 3 V L wrist in plaster. Scribed for Eladia Kidd MD by Perry Julio, medical cost consultant, on 03/19/24 at 1:30 PM, EST. Orders: Orders XR wrist LT w scaphoid Today M25.532 - Pain in left wrist Coding Level of Care Code New Pt Level 3 (19060) Diagnoses Fracture of left distal radius S52.502A Nondisplaced fracture of styloid process of left ulna S52.615A Diabetes mellitus type 1 E10.9 CPT Codes Fracture Care - Fracture Billing Code: Fracture Billing Code ([id number])
== END 2024-03-19 14:16 | disposition home or self-care (01) ==
PROVIDERS: PCP Nurse Practitioner Family; Visit Provider Orthopaedic Surgery
DX: S52.502A Unspecified fracture of the lower end of left radius, initial encounter for closed fracture (principal); S52.615A Nondisplaced fracture of left ulna styloid process, initial encounter for closed fracture; E10.9 Type 1 diabetes mellitus without complications
CPT/HCPCS: 25600; 99203

== ENCOUNTER 2024-03-20 05:47 | Emergency (ER) | payer MEDICAID, SELFPAY ==
[2024-03-20 05:49] VITALS: BP 124/87; PULSE 109; RESP 16; TEMP 36.8; O2SAT 100; BMI 18.6
--- NOTE | 2024-03-20 06:36 | ED.GENADULT ---
HPI - General Adult General Chief complaint: Extremity Problem Stated complaint: left arm cast too tight Time Seen by Provider: 03/20/24 06:32 Source: patient Mode of arrival: ambulatory Limitations: no limitations History of Present Illness ED Provider: jez ESCALERA narrative: Patient is a 29-year-old male with history of T1 dm, recent fracture to left radius and ulnar styloid presenting to the emergency department with complaint of left forearm pain. Denies change of color to fingers. Denies new weakness, numbness, tingling. Has been holding frozen water bottles in left hand but has not been applying ice over cast. Has not been keeping arm elevated. Has not been taking any Tylenol or ibuprofen. MD complaint: left arm pain Onset (ago): hour(s) Location: left and upper extremity Severity: moderate Quality: aching Pain Consistency: constant Associated symptoms: denies other symptoms Treatments prior to arrival: none Related Data Home Medications ?Medication ?Instructions ?Recorded ?Confirmed insulin aspart U-100 100 unit/mL See Rx Instructions .Route .COMPLEX 12/19/22 06/01/23 (3 mL) subcutaneous pen (Novolog FlexPen U-100 Insulin aspart) insulin glargine 100 unit/mL (3 20 unit subcut DAILY 12/19/22 06/01/23 mL) subcutaneous pen (Lantus Solostar U-100 Insulin) pantoprazole 40 mg tablet,delayed 40 mg PO DAILY@0630 12/19/22 06/01/23 release (Protonix) promethazine 25 mg tablet 25 mg PO TID PRN nausea/vomiting 01/23/23 06/01/23 Previous Rx's ?Medication ?Instructions ?Recorded ketorolac 10 mg tablet 10 mg PO TID PRN pain 5 days #15 05/04/23 tabs promethazine 25 mg tablet 25 mg PO TID PRN nausea and 08/26/23 vomiting #10 tabs lorazepam 1 mg tablet (Ativan) 1 mg PO BEDTIME PRN sleep #5 tabs 01/09/24 promethazine 25 mg tablet 25 mg PO TID PRN nausea and 01/09/24 vomiting #30 tabs ondansetron 4 mg disintegrating 4 mg PO DAILY PRN nausea and 02/23/24 tablet vomiting 5 days #14 tabs lorazepam 1 mg tablet 1 mg PO BID PRN anxiety #7 tabs 03/06/24 Allergies Allergy/AdvReac Type Severity Reaction Status Date / Time diphenhydramine Allergy Anaphylaxis Verified 03/20/24 05:51 [From Benadryl] haloperidol [From Haldol] Allergy Difficulty Verified 03/20/24 05:51 Swallowing metoclopramide [From Reglan] AdvReac Anxiety Verified 03/20/24 05:51 Review of Systems Review of Systems: As per HPI. 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 type 1 Social History Social History (Updated 03/19/24 @ 12:49 by VETO Carcamo) Household Members: Other Household Members Other:: cousin Housing: House Do you presently have visiting nurse or other home services: No Alcohol intake: current Alcohol intake frequency: a few times a month Patient Tobacco Use Status: Current everyday Tobacco user Tobacco use type: Cigarette Cigarette Packs Per Day: 0 Cigarettes Per Day: 0 Years Smoked: 10 e-Cigarette/Vaping Use: Never Used Second Hand Smoke Exposure: No Substance Use Type: Marijuana Advance Directives: No Advance Directives Information Provided: Yes service: No Current occupational status: employed 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 Blood pressure normal. Heart rate slightly tachycardic. Respiratory rate normal. Temperature normal. Oxygen saturation normal. Const General: cooperative, healthy appearing and no acute distress Orientation/consciousness: oriented to person, oriented to place, oriented to time and patient oriented x3 Limitations: no limitations HENMT Head: Yes normocephalic and Yes atraumatic Ears: external ears normal General nose exam: Normal external nose present Face and sinus: Yes face symmetric Mouth: oropharynx normal and moist mucous membranes Throat: Yes uvula midline Eyes Pupils: Equal, round and reactive pupils present Neck Neck: Yes normal visual inspection and Yes supple Resp Effort & Inspection: normal respiratory effort and able to speak in complete sentences Auscultation: clear to auscultation bilaterally Cardio Rate: regular rate Rhythm: regular rhythm Heart sounds: S1 normal heart sound present and S2 normal heart sound present GI Palpation (GI): Soft to palpation and nontender Auscultation: normoactive bowel sounds General: Yes no CVA tenderness Back/Spine/Pelvis Back: no CVA tenderness Skin General skin exam: elasticity normal and turgor normal Neuro General: oriented to person, oriented to place, oriented to time, patient oriented x3, moves all extremities, no focal motor deficits and CN's II-XI intact bilaterally Cranial nerves: Yes Equal, round and reactive pupils present Cognition (Neuro): normal cognition Extrem General: Yes full ROM, Yes no pedal edema and Yes no calf tenderness Left upper extremity: elbow/forearm (left forearm in cast) Details: normal ROM and distal pulses intact; no unusual warmth and no ecchymosis and hand Details: normal to inspection, normal capillary refill, neuromotor exam normal, neurosensory exam normal, vascular exam Details: normal capillary refill; no cyanosis, normal ROM of fingers and no swelling; no ecchymosis Psych Mental Status: mental status grossly normal Affect: normal affect Thought process: Normal thought process present Medical Decision Making Medical Decision Making [facility] Narrative: Patient is a 29-year-old male with history of T1 dm, recent fracture to left radius and ulnar styloid presenting to the emergency department with complaint of left forearm pain. On exam patient is awake, A+Ox3, HR slightly tachycardic, VS otherwise WNL, afebrile, normal neurological exam without focal deficits, physical exam findings as above. Given reported symptoms and physical exam findings, initial differential includes left forearm pain. No evidence of vascular compromise or compartment syndrome. Discussed with patient that he should elevated his arm at rest, apply ice over the cast, and use Tylenol/ibuprofen for pain. Follow up with ortho as recommended. Specific return precautions discussed at bedside. Patient verbalized understanding of and agreement with plan. Differential Diagnosis Differential Diagnoses: The differential diagnosis associated with the presentation includes as per [facility] External Record Review External record reviewed: Inpatient record, Office record and Outpatient record Discharge Plan Discharge Clinical Impression: Arm pain, left Patient Disposition: Home, Self-Care Instructions: Arm Pain (ED), Cast Care (ED) Additional Instructions: You were evaluated in the emergency department today for left arm pain in the area of your new cast. Your evaluation did not show evidence of conditions requiring emergent medical treatment at this time. We recommend that you use pillows to keep your arm/cast elevated while at rest. You should apply ice over the cast for 10-15 minutes at a time several times daily. We also recommend you take 600 mg of ibuprofen or 650 mg of Tylenol every 6 hours as needed for pain. If necessary, you can alternate these medications every 3 hours. For example, at 9:00 a.m. take Tylenol, then at noon take ibuprofen, then at 3:00 p.m. take Tylenol, then at 6:00 p.m. take ibuprofen, etc.. Follow-up with orthopedics as previously directed. Return to the emergency department if you develop change of color to your fingers, new weakness, numbness, tingling to your fingers or any other concerning symptoms. Prescriptions: No Action insulin aspart U-100 [Novolog FlexPen U-100 Insulin] 100 unit/mL (3 mL) insulin pen See Rx Instructions .ROUTE .COMPLEX Rx Instructions: 1 unit of insulin for every 35 units over 135 insulin glargine [Lantus Solostar U-100 Insulin] 100 unit/mL (3 mL) insulin pen 20 unit subcut DAILY pantoprazole [Protonix] 40 mg tablet,delayed release (DR/EC) 40 mg PO DAILY@0630 promethazine 25 mg tablet 25 mg PO TID PRN (Reason: nausea/vomiting) ketorolac 10 mg tablet 10 mg PO TID PRN (Reason: pain) 5 Days Qty: 15 0RF promethazine 25 mg tablet 25 mg PO TID PRN (Reason: nausea and vomiting) Qty: 10 0RF promethazine 25 mg tablet 25 mg PO TID PRN (Reason: nausea and vomiting) Qty: 30 0RF lorazepam [Ativan] 1 mg tablet 1 mg PO BEDTIME PRN (Reason: sleep) Qty: 5 0RF ondansetron 4 mg tablet,disintegrating 4 mg PO DAILY PRN (Reason: nausea and vomiting) 5 Days Qty: 14 0RF lorazepam 1 mg tablet 1 mg PO BID PRN (Reason: anxiety) Qty: 7 0RF Referrals: Eladia Kidd MD [Physician] - Print Language: Cymraes
== END 2024-03-20 08:12 | disposition home or self-care (01) ==
PROVIDERS: Emergency Provider Emergency Medicine; PCP Nurse Practitioner Family
DX: M79.602 Pain in left arm (principal)
CPT/HCPCS: 99281; 99282

== ENCOUNTER 2024-03-28 14:01 | Outpatient (AMB) | payer MEDICAID, SELFPAY ==
--- NOTE | 2024-03-28 14:08 | A.OFFVIS_ITS ---
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 He has a history of gastroparesis and Gates's esophagitis. He previously was followed by a GI specialist in [place] and has an initial appointments with [place] [facility] [place]. Current diabetes regime Lantus 20 units NovoLog t.i.d. with meals 1 unit for every 35 over 135 in 0 1-15 carbohydrate ratio. Typically uses a [employer] 3 but has been out of sensors in reader has not worked. In the office today we were able to download the [employer] milady on his phone. He is interested in going on an insulin pump. He reports both highs and lows with his blood sugar and has had had issues in the past with a low sugars at night. He carries the source of sugar with him at all times in his familiar with ketone testing but no longer has strips. He lives with his cousin who is 63 who also has health issues. Has eyes checked yearly, he is due [Denies] neuropathy [Denies] nephropathy [Denies] history of CAD. [Had] diabetes education in the past Diet/Carb counting:would like to see nutrition Weight: [stable] [+] prior episodes of DKA. [Denies] prior severe episodes of hypoglycemia requiring help or hospitalization. [facility] Medical History Dental infection Abdominal pain Colitis DKA (diabetic ketoacidosis) Hyperglycemia 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 type 1 Social History (Updated 03/19/24 @ 12:49 by VETO Carcamo) Household Members: Other Household Members Other:: cousin Housing: House Do you presently have visiting nurse or other home services: No Alcohol intake: current Alcohol intake frequency: a few times a month Patient Tobacco Use Status: Current everyday Tobacco user Tobacco use type: Cigarette Cigarette Packs Per Day: 0 Cigarettes Per Day: 0 Years Smoked: 10 e-Cigarette/Vaping Use: Never Used Second Hand Smoke Exposure: No Substance Use Type: Marijuana service: No Current occupational status: employed 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 Absence of acromegalic features. Neck exam reveals nl size thyroid about 15 gms. No thyroid nodules palpable. No carotid bruits present. Lungs CTA. Heart S1 S2, Reg R/R. No M/R/ G. Skin exam reveals absence of vitiligo or acanthosis nigricans. Abdominal exam reveals Soft NT/ND with NA BS. No organomegaly present. Extrem Other: Visual exam of foot performed. No ulcerations or open lesions. No onchomycosis, no callouses.Pulses 2 + distally. Sensation intact to monofilament exam. Vibratory sensation sensed 10 seconds in right, 10 seconds in left with 128 Hz tuning fork Results Reviewed Results Reviewed: Laboratory Last Values Glucose (Clinic) 160 mg/dL (60-115) H 03/28/24 14:21 Assessment & Plan Assessment & Plan (1) Diabetes mellitus type 1: Code(s): E10.9 - Type 1 diabetes mellitus without complications Category: Medical Plan: We will change patient to Tresiba 20 units because his Lantus is not lasting the full 24 hours and had in the past cause nighttime hypoglycemia. He will continue his same scale on short-acting insulin for now. He is interested in an insulin pump. And we have briefly discussed the differences between islet, Omnipod and tandem. He will look into all 3 of these and set up an appointment to see the Lorri MORGAN and he will also be referred to nutrition. He needs to go back on a sensor immediately due to type 1 and labile glucose. Patient teaching: The patient was counseled to always carry a source of sugar and on the rule of 15's: Take 3 glucose tablets and repeat again in 15 minutes if blood sugar is not in normal range. Continue to repeat every 15 minutes until blood sugar is normal. The patient was counseled to achieve a target A1C of 7% (154 avg). Fasting blood sugars should be 90-130 in the morning and less than 180 two hours after meals. Reviewed the relationship between poor diabetic control and the developement of complications Symptoms of DKA were reviewed: early: frequent urination, dry mouth, ketones in the urine, severe symptoms: abdominal pain, nausea, vomiting and weakness. It is important to hydrate with sugar free liquids every 30 minutes and bring the sugars down to normal levels. Orders: Referrals Seo Team Lead Nutrition Referral E10.9 - Type 1 diabetes mellitus without complications Diabetes Education Referral E10.9 - Type 1 diabetes mellitus without complications Medications: New acetone (urine) test (Ketone Urine Test strips) As directed prn glucose over 250, nausea/vomiting tid 25 ea 3RF insulin degludec (Tresiba FlexTouch U-200 insulin) 20 units (0.1 mL) subcut DAILY 30 days 6 mL 6RF E10.9 - Type 1 diabetes mellitus without complications glucagon 3 mg/actuation (Baqsimi) P.R.N. for unresponsive hypoglycemia. Check to see if patient breathing and pulse, initiate CPR if needed. Call 911. Use when patient can not self treat low sugar. [place] once, position lying on the side, repeat again in 15 minutes. 3 mg intranasal BID 30 days PRN 2 ea 1RF unresponsive hypoglycemia MDD 6mg E10.9 - Type 1 diabetes mellitus without complications Changed From insulin aspart U-100 (Novolog FlexPen U-100 Insulin aspart) 1 unit of insulin for every 35 units over 135 E10.9 - Type 1 diabetes mellitus without complications To insulin aspart U-100 (Novolog FlexPen U-100 Insulin aspart) 1 sliding scale dose subcutaneously; 1 unit for every 35 points over 135, 1:15 ratio (uses approx 20-25 units daily) 1 sliding scale dose subcut TID 30 days 9 mL 3RF E10.9 - Type 1 diabetes mellitus without complications Coding Level of Care Code Tele New Pt Level 5 (08749) Complex EM visit Add On G2211 Diagnoses Diabetes mellitus type 1 E10.9 Time Spent (min) 60 Comment Time spent reviewing labs/previous provider notes, face to face, chart documentation
[2024-03-28 14:15] VITALS: BP 122/82; PULSE 82; BMI 18.5
[2024-03-28 14:32] LABS: Glucose, Whole Blood 160 mg/dL (60-115)
== END 2024-03-28 15:19 | disposition home or self-care (01) ==
PROVIDERS: PCP Nurse Practitioner Family; Visit Provider Nurse Practitioner Adult Health
DX: E10.9 Type 1 diabetes mellitus without complications (principal)
CPT/HCPCS: 99205

== ENCOUNTER → 2024-03-28 14:01 | Outpatient (BNVA) | payer MEDICAID, SELFPAY | PROVIDERS: PCP Nurse Practitioner Family; Visit Provider Nurse Practitioner Adult Health | DX: E10.9 Type 1 diabetes mellitus without complications (principal); Z79.4 Long term (current) use of insulin | CPT/HCPCS: 82947; 99212 ==

== ENCOUNTER 2024-03-29 14:14 | Emergency (ER) | payer MEDICAID, SELFPAY ==
--- NOTE | 2024-03-29 | ECG_ITS ---
Test Reason : CP Blood Pressure : / mmHG Vent. Rate : 082 BPM Atrial Rate : 082 BPM P-R Int : 104 ms QRS Dur : 100 ms QT Int : 352 ms P-R-T Axes : 005 -34 022 degrees QTc Int : 411 ms Sinus rhythm with short TX Left axis deviation Abnormal ECG When compared with ECG of 23-FEB-2024 10:15, Nonspecific T wave abnormality, improved in Inferior leads Referred By: Generic ED Physician Electronically Signed By:ESTRELLA ELIAS MD
--- NOTE | ~2024-03-29 | XR_ITS ---
EXAMINATION: XR CHEST 2 VIEW CLINICAL INFORMATION: Chest pain COMPARISON: 01/08/2024 TECHNIQUE: PA and lateral views of the chest obtained. FINDINGS: The lungs are clear. There are no pleural effusions. The cardiomediastinal silhouette is normal. XR/XR chest 2V IMPRESSION: No acute cardiopulmonary disease.
[2024-03-29 14:37] VITALS: BP 115/73; BP 119/74; PULSE 100; PULSE 88; RESP 18; TEMP 36.8; O2SAT 100; BMI 19.5
[2024-03-29 14:42] LABS: Glucose, Whole Blood 126 mg/dL (60-115)
[2024-03-29 14:57] LABS: Glucose, Whole Blood 97 mg/dL (60-115)
[2024-03-29 15:38] LABS: MANUAL DIFF FLAG NO
[2024-03-29 15:40] LABS: Basophils Percent Auto 0.4 % (0-2); Eosinophils Absolute Auto 0.1 X10*3/uL (0.0-0.4); Eosinophils Percent Auto 0.7 % (0-4); Hematocrit 38.1 % (42.0-52.0); Hemoglobin 12.8 g/dl (14.0-18.0); Imm Gran Abs Auto 0.01 X10*3/uL (0.00-0.03); Imm Gran Pct Auto 0.1 % (0.0-0.4); Lymphocytes Absolute Auto 1.8 X10*3/uL (1.2-4.9); Mean Corpuscular HGB Conc 33.6 g/dl (31.0-36.0); Mean Corpuscular Hemoglobin 26.3 pg (27.0-33.0); Mean Corpuscular Volume 78.4 fL (80.0-98.0); Mean Platelet Volume 9.6 fL (9.4-12.4); Monocytes Absolute Auto 0.4 X10*3/uL (0.1-1.2); Monocytes Percent Auto 6.5 % (2-11); Neutrophils Absolute Auto 4.4 x10*3/uL (2.0-8.3); Neutrophils Percent Auto 65.3 % (45-73); Platelet Count 263 X10*3/uL (160-400); Red Blood Count 4.86 X10*6/uL (4.60-5.80); White Blood Count 6.7 X10*3/uL (4.8-10.8)
[2024-03-29 15:55] LABS: Alanine Aminotransferase 14 U/L (0-40); Albumin Level 4.2 g/dL (3.5-5.0); Alkaline Phosphatase 80 U/L (39-117); Anion Gap 11 (12-20); Aspartate Amino Transferase 13 U/L (5-37); Bilirubin Direct 0.2 mg/dL (0.0-0.5); Bilirubin Total 0.6 mg/dL (0.0-1.0); Blood Urea Nitrogen 20 mg/dL (9-16); Calcium 9.8 mg/dL (8.4-10.2); Carbon Dioxide 26 mmol/L (22-29); Chloride 107 mmol/L (96-108); Creatinine Clr Calc Pharmacy 145.1; Estimated Glomerular Filt Rate > 60; Glucose Random 83 mg/dL (60-115); Lipase 6 U/L (8-78); Potassium 3.5 mmol/L (3.3-5.1); Sodium 140 mmol/L (135-145); Total Protein 6.9 g/dL (6.5-8.0)
[2024-03-29 16:04] LABS: Troponin-I High Sensitivity < 2.7 ng/L (<3.5-35.0)
[2024-03-29 16:30] LABS: Influenza A PCR NEGATIVE (Negative); Influenza B PCR NEGATIVE (Negative); Resp Syncy Virus RNA Qual PCR NEGATIVE (Negative); SARS COV2 PCR INHOUSE NEGATIVE (Negative)
[2024-03-29 17:54] VITALS: BP 126/71; PULSE 96; RESP 18; TEMP 36.8; O2SAT 100
--- NOTE | 2024-03-29 18:18 | ED.GENADULT ---
HPI - General Adult General Chief complaint: General Medical Stated complaint: LOWER BACK PAIN Time Seen by Provider: 03/29/24 15:14 History of Present Illness ED Provider: Dr. Pagan HPI narrative: 29 y/o M patient; PMH T1DM, recent fx to left radius and ulnar styloid; presents from home reporting at 6am this morning he was woken up with bilateral upper rib pain. He states this pain is worse with sitting and laying down. He denies any change with deep respiration. He denies: syncope, SOB, cough/congestion, nausea/vomiting, abdominal pain. He denies prior similar symptoms. He denies any recent trauma or injury to his chest. Related Data Home Medications ?Medication ?Instructions ?Recorded ?Confirmed pantoprazole 40 mg tablet,delayed 40 mg PO DAILY@0630 12/19/22 06/01/23 release (Protonix) promethazine 25 mg tablet 25 mg PO TID PRN nausea/vomiting 01/23/23 06/01/23 Previous Rx's ?Medication ?Instructions ?Recorded ketorolac 10 mg tablet 10 mg PO TID PRN pain 5 days #15 05/04/23 tabs promethazine 25 mg tablet 25 mg PO TID PRN nausea and 08/26/23 vomiting #10 tabs lorazepam 1 mg tablet (Ativan) 1 mg PO BEDTIME PRN sleep #5 tabs 01/09/24 promethazine 25 mg tablet 25 mg PO TID PRN nausea and 01/09/24 vomiting #30 tabs ondansetron 4 mg disintegrating 4 mg PO DAILY PRN nausea and 02/23/24 tablet vomiting 5 days #14 tabs lorazepam 1 mg tablet 1 mg PO BID PRN anxiety #7 tabs 03/06/24 acetone (urine) test (Ketone Urine #25 ea 03/28/24 Test strips) glucagon 3 mg/actuation nasal 3 mg intranasal BID PRN 03/28/24 spray (Baqsimi) unresponsive hypoglycemia 30 days #2 ea insulin aspart U-100 100 unit/mL 1 sliding scale dose subcut TID 30 03/28/24 (3 mL) subcutaneous pen (Novolog days #9 mL FlexPen U-100 Insulin aspart) insulin degludec 200 unit/mL (3 20 unit (0.1 mL) subcut DAILY 30 03/28/24 mL) subcutaneous pen (Tresiba days #6 mL FlexTouch U-200 insulin) Allergies Allergy/AdvReac Type Severity Reaction Status Date / Time diphenhydramine Allergy Anaphylaxis Verified 03/29/24 14:39 [From Benadryl] haloperidol [From Haldol] Allergy Difficulty Verified 03/29/24 14:39 Swallowing metoclopramide [From Reglan] AdvReac Anxiety Verified 03/29/24 14:39 Review of Systems Review of Systems: Yes all other systems are reviewed and are negative Neurologic: Denies Sensory deficit (Neuro) [facility] Past Medical History Attestation statement: The following information was validated with the patient. Source: old records reviewed Medical History Dental infection Abdominal pain Colitis DKA (diabetic ketoacidosis) Hyperglycemia 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 type 1 Social History Social History Household Members: Other Household Members Other:: cousin Housing: House Do you presently have visiting nurse or other home services: No Alcohol intake: current Alcohol intake frequency: holidays/special occasions only Patient Tobacco Use Status: Current everyday Tobacco user Tobacco use type: Cigarette Cigarette Packs Per Day: 0 Cigarettes Per Day: 0 Years Smoked: 10 Smoked in Last 30 Days: Yes e-Cigarette/Vaping Use: Never Used Second Hand Smoke Exposure: No Use of substances other than those prescribed or required for medical reasons: Yes Substance Use Type: Marijuana Substance Use Frequency: Chronic Longstanding Advance Directives: No Advance Directives Information Provided: No service: No Current occupational status: employed 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 Physical Exam ED Vital Signs: Vital Signs - 24 hr 03/29/24 14:37 03/29/24 17:54 Temperature 98.2 F 98.2 F Pulse Rate 88 96 Respiratory Rate 18 18 Blood Pressure 115/73 126/71 Pulse Oximetry 100 100 Oxygen Delivery Method Room Air Room Air BMI result Body Mass Index 19.5 Patient is afebrile and hemodynamically stable Const General: cooperative Orientation/consciousness: patient oriented x3 HENMT Head: Yes normal to inspection and Yes atraumatic Eyes General: appearance normal, both eyes and all related structures Pupils: Equal, round and reactive pupils present EOM: EOMs intact bilaterally Neck Neck: Yes normal visual inspection, Yes full ROM, Yes supple and No tender Chest Chest palpation & inspection: normal inspection of the chest and normal palpation of entire chest wall Resp Effort & Inspection: normal respiratory effort, able to speak in complete sentences, no cough and no respiratory distress Auscultation: clear to auscultation bilaterally Cardio Rate: regular rate Rhythm: regular rhythm Peripheral pulses: Peripheral pulses 2+ throughout GI Inspection: Yes normal to inspection, No Abdominal wall edema and No distended Palpation (GI): Soft to palpation, not firm, nontender, no guarding and not rigid Auscultation: normal bowel sounds Back/Spine/Pelvis Back: No back tenderness Neuro General: patient oriented x3 Cranial nerves: Yes Equal, round and reactive pupils present Gait exam (Neuro): Normal gait present Motor exam (neuro): 5/5 motor strength present throughout Sensory Exam: No Sensory deficit (Neuro) Course Course Course Narrative: Patient is afebrile and hemodynamically stable. Reviewed triage orders. CXR unremarkable. Labs without leukocytosis. Baseline mild anemia. Undetectable troponin. COVID/Flu/RSV negative. Requested patient stay for 2nd troponin but he declined. No evidence of ACS at this time. Plan: Discharge to home with PCP follow up Return precautions given Medical Decision Making Lab Data 03/29/24 15:33 03/29/24 15:33 Labs: Lab Results 03/29/24 03/29/24 03/29/24 Range/Units 14:38 14:53 15:33 WBC 6.7 (4.8-10.8) X10*3/uL RBC 4.86 (4.60-5.80) X10*6/uL Hgb 12.8 L (14.0-18.0) g/dl Hct 38.1 L (42.0-52.0) % MCV 78.4 L (80.0-98.0) fL MCH 26.3 L (27.0-33.0) pg MCHC 33.6 (31.0-36.0) g/dl RDW 14.0 (11.0-16.0) % Plt Count 263 (160-400) X10*3/uL MPV 9.6 (9.4-12.4) fL Immature Gran % (Auto) 0.1 (0.0-0.4) % Neut % (Auto) 65.3 (45-73) % Lymph % (Auto) 27.0 (20-40) % [place] % (Auto) 6.5 (2-11) % Eos % (Auto) 0.7 (0-4) % Baso % (Auto) 0.4 (0-2) % Lymph # (Auto) 1.8 (1.2-4.9) X10*3/uL [place] # (Auto) 0.4 (0.1-1.2) X10*3/uL Eos # (Auto) 0.1 (0.0-0.4) X10*3/uL Baso # (Auto) 0.0 (0.0-0.2) X10*3/uL Abs Immat Gran (auto) 0.01 (0.00-0.03) X10*3/uL Absolute Neuts (auto) 4.4 (2.0-8.3) x10*3/uL Absolute Nucleated RBC 0.000 (0.0-0.012) X10*3/uL Nucleated RBC % (auto) 0.0 (0.0-0.2) /100WBC Sodium 140 (135-145) mmol/L Potassium 3.5 (3.3-5.1) mmol/L Chloride 107 (96-108) mmol/L Carbon Dioxide 26 (22-29) mmol/L Anion Gap 11 L (12-20) BUN 20 H (9-16) mg/dL Creatinine 0.70 (0.5-1.4) mg/dL Estim Creat Clear Calc 145.1 Estimated GFR > 60 POC Glucose 126 H 97 (60-115) mg/dL Random Glucose 83 (60-115) mg/dL Calcium 9.8 D (8.4-10.2) mg/dL Total Bilirubin 0.6 (0.0-1.0) mg/dL Direct Bilirubin 0.2 (0.0-0.5) mg/dL AST 13 (5-37) U/L ALT 14 (0-40) U/L Alkaline Phosphatase 80 (39-117) U/L Troponin I High Sens < 2.7 (<3.5-35.0) ng/L Total Protein 6.9 (6.5-8.0) g/dL Albumin 4.2 (3.5-5.0) g/dL Lipase 6 L (8-78) U/L Influenza Type A (PCR) NEGATIVE (Negative) Influenza Type B (PCR) NEGATIVE (Negative) RSV RNA Qual (PCR) NEGATIVE (Negative) SARS-CoV-2 RNA (RT-PCR) NEGATIVE (Negative) Independent Interpretation I performed an independent interpretation of an: EKG Interpretation: NSR 82BPM without ischemic changes, early repolarization. Unchanged compared to prior from 02/23/2024. Radiology Impression Discussion of test interpretation with radiology: I have reviewed the radiologist's reading. Radiologist Impression: EXAMINATION: XR CHEST 2 VIEW CLINICAL INFORMATION: Chest pain COMPARISON: 01/08/2024 TECHNIQUE: PA and lateral views of the chest obtained. FINDINGS: The lungs are clear. There are no pleural effusions. The cardiomediastinal silhouette is normal. XR/XR chest 2V IMPRESSION: No acute cardiopulmonary disease. Discharge Plan Discharge Clinical Impression: Chest pain Patient Disposition: Home, Self-Care Instructions: Chest Pain (DC) Additional Instructions: As we discussed, you were seen today for chest pain. Your labs, EKG, and CXR were reassuring. We wanted to do further testing but you elected to go home. Recommend you follow up with your PCP within 1 day for re-evaluation. Return to the emergency department for: Worsening chest pain Difficulty breathing Passing out Prescriptions: No Action pantoprazole [Protonix] 40 mg tablet,delayed release (DR/EC) 40 mg PO DAILY@0630 promethazine 25 mg tablet 25 mg PO TID PRN (Reason: nausea/vomiting) ketorolac 10 mg tablet 10 mg PO TID PRN (Reason: pain) 5 Days Qty: 15 0RF promethazine 25 mg tablet 25 mg PO TID PRN (Reason: nausea and vomiting) Qty: 10 0RF promethazine 25 mg tablet 25 mg PO TID PRN (Reason: nausea and vomiting) Qty: 30 0RF lorazepam [Ativan] 1 mg tablet 1 mg PO BEDTIME PRN (Reason: sleep) Qty: 5 0RF ondansetron 4 mg tablet,disintegrating 4 mg PO DAILY PRN (Reason: nausea and vomiting) 5 Days Qty: 14 0RF lorazepam 1 mg tablet 1 mg PO BID PRN (Reason: anxiety) Qty: 7 0RF insulin aspart U-100 [Novolog FlexPen U-100 Insulin] 100 unit/mL (3 mL) insulin pen 1 sliding scale dose subcut TID 30 Days Qty: 9 3RF Rx Instructions: 1 sliding scale dose subcutaneously; 1 unit for every 35 points over 135, 1:15 ratio (uses approx 20-25 units daily) (DME) Ketone Urine Test Strip See Rx Instructions .ROUTE .MEDSUPPLY Qty: 25 3RF Rx Instructions: As directed prn glucose over 250, nausea/vomiting tid Baqsimi 3 mg/actuation spray,non-aerosol 3 mg intranasal BID MDD 6mg PRN (Reason: unresponsive hypoglycemia) 30 Days Qty: 2 1RF Rx Instructions: P.R.N. for unresponsive hypoglycemia. Check to see if patient breathing and pulse, initiate CPR if needed. Call 911. Use when patient can not self treat low sugar. [place] once, position lying on the side, repeat again in 15 minutes. insulin degludec [Tresiba FlexTouch U-200] 200 unit/mL (3 mL) insulin pen 20 unit subcut DAILY 30 Days Qty: 6 6RF Print Language: Indonesian
--- NOTE | 2024-03-29 18:18 | PC.NURSE ---
Patient requesting discharge, provider aware
[2024-03-29 18:58] VITALS: BP 126/71; PULSE 96; RESP 18; TEMP 36.8; O2SAT 98
== END 2024-03-29 18:58 | disposition home or self-care (01) ==
PROVIDERS: Emergency Provider Emergency Medicine; PCP Nurse Practitioner Family
DX: R07.9 Chest pain, unspecified (principal); E10.8 Type 1 diabetes mellitus with unspecified complications; F17.210 Nicotine dependence, cigarettes, uncomplicated; Z03.818 Encounter for observation for suspected exposure to other biological agents ruled out; Z79.899 Other long term (current) drug therapy
CPT/HCPCS: 0241U; 71046; 80048; 80076; 82947; 83690; 84484; 85025; 93005; 99283; 99284

== ENCOUNTER → 2024-03-29 14:43 | Outpatient (BNV) | payer MEDICAID, SELFPAY | PROVIDERS: Emergency Provider Emergency Medicine; PCP Nurse Practitioner Family; Visit Provider Internal Medicine Cardiovascular Disease | DX: R94.31 Abnormal electrocardiogram [ECG] [EKG] (principal) | CPT/HCPCS: 93010 ==

== ENCOUNTER 2024-04-08 16:43 | Emergency (ER) | payer MEDICAID, SELFPAY ==
--- NOTE | ~2024-04-08 | XR_ITS ---
EXAMINATION: XR WRIST, LEFT CLINICAL INFORMATION: Fracture. Follow-up. COMPARISON: Wrist radiographs dated 03/19/2024. TECHNIQUE: PA, lateral, and oblique views of the left wrist. XR/XR wrist LT min 3V FINDINGS / IMPRESSION: Overlying cast obscures fine bony detail. The intra-articular fracture of the distal radius is redemonstrated. Alignment is near-anatomic. A transverse fracture at the base of the ulnar styloid is also redemonstrated. No new fracture is identified.
--- NOTE | 2024-04-08 17:51 | ED.UPPEXIN ---
HPI - Extremity Injury (Upper) General Chief Complaint: Extremity Injury, Upper Stated Complaint: L Forearm Pain Needs Xrays Time Seen by Provider: 04/08/24 17:55 Source: patient Mode of arrival: ambulatory Limitations: no limitations History of Present Illness ED Provider: Trenton Lang PA-C HPI narrative: 29 yo male with recent left wrist fracture presents to the ER for follow up x-ray. He sees Dr. Kidd tomorrow and he was told he needed to get x-rays done 3 days before his appointment but never got a call or an order to do so. He has been wearing his cast with no complaints. No numbness, tingling in his hand. No swelling. He initially broke his wrist 03/12 when he fell while playing basketball. MD complaint: injury to: left Other injuries: none Relieving factors: none Exacerbating factors: none Context: fall Associated symptoms: denies other symptoms Related Data Home Medications ?Medication ?Instructions ?Recorded ?Confirmed pantoprazole 40 mg tablet,delayed 40 mg PO DAILY@0630 12/19/22 06/01/23 release (Protonix) promethazine 25 mg tablet 25 mg PO TID PRN nausea/vomiting 01/23/23 06/01/23 Previous Rx's ?Medication ?Instructions ?Recorded ketorolac 10 mg tablet 10 mg PO TID PRN pain 5 days #15 05/04/23 tabs promethazine 25 mg tablet 25 mg PO TID PRN nausea and 08/26/23 vomiting #10 tabs lorazepam 1 mg tablet (Ativan) 1 mg PO BEDTIME PRN sleep #5 tabs 01/09/24 promethazine 25 mg tablet 25 mg PO TID PRN nausea and 01/09/24 vomiting #30 tabs ondansetron 4 mg disintegrating 4 mg PO DAILY PRN nausea and 02/23/24 tablet vomiting 5 days #14 tabs lorazepam 1 mg tablet 1 mg PO BID PRN anxiety #7 tabs 03/06/24 acetone (urine) test (Ketone Urine #25 ea 03/28/24 Test strips) glucagon 3 mg/actuation nasal 3 mg intranasal BID PRN 03/28/24 spray (Baqsimi) unresponsive hypoglycemia 30 days #2 ea insulin aspart U-100 100 unit/mL 1 sliding scale dose subcut TID 30 03/28/24 (3 mL) subcutaneous pen (Novolog days #9 mL FlexPen U-100 Insulin aspart) insulin degludec 200 unit/mL (3 20 unit (0.1 mL) subcut DAILY 30 03/28/24 mL) subcutaneous pen (Tresiba days #6 mL FlexTouch U-200 insulin) Allergies Allergy/AdvReac Type Severity Reaction Status Date / Time diphenhydramine Allergy Anaphylaxis Verified 04/08/24 17:54 [From Benadryl] haloperidol [From Haldol] Allergy Difficulty Verified 04/08/24 17:54 Swallowing metoclopramide [From Reglan] AdvReac Anxiety Verified 04/08/24 17:54 Review of Systems Review of Systems: Yes all other systems are reviewed and are negative PMFSH Past Medical History Medical History Dental infection Abdominal pain Colitis DKA (diabetic ketoacidosis) Hyperglycemia 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 type 1 Social History Social History Household Members: Other Household Members Other:: cousin Housing: House Do you presently have visiting nurse or other home services: No Alcohol intake: current Alcohol intake frequency: holidays/special occasions only Patient Tobacco Use Status: Current everyday Tobacco user Tobacco use type: Cigarette Cigarette Packs Per Day: 0 Cigarettes Per Day: 0 Years Smoked: 10 e-Cigarette/Vaping Use: Never Used Second Hand Smoke Exposure: No Substance Use Type: Marijuana Advance Directives: No Advance Directives Information Provided: No service: No Current occupational status: employed 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 Oriented X3. No acute distress. HEENT: normal inspection CVS: Normal heart rate and rhythm. Pulses normal. Respiratory: No respiratory distress. Skin: Skin warm and dry. Normal skin color. Normal skin turgor. No rashes. Extremities: left lower arm in a hard fiberglass cast. FROM of all digits without any sensory or motor deficits. no swelling proximally or distally to the cast. Neuro: Oriented X 3. No motor deficit. No sensory deficit. Medical Decision Making Medical Decision Making MDM Narrative: 29 yo male with hx DM1 and recent left ulnar syloid fracture in February presenting for x-ray for his Ortho appointment tomorrow. He states he needs the imaging done before his appointment. No complaints from the patient. Cast is fitting appropriately. Xrays done stat so the read will be available for Dr. Kidd tomorrow stable for d/c home Differential Diagnosis Differential Diagnoses: The differential diagnosis associated with the presentation includes appropriate bone healing, delayed bone healing, nonunion Independent Interpretation I performed an independent interpretation of an: Plain X-Ray Interpretation: Healing fracture noted, no displacement Radiology Impression Discussion of test interpretation with radiology: I have reviewed the radiologist's reading. Radiologist Impression: EXAMINATION: XR WRIST, LEFT CLINICAL INFORMATION: Fracture. Follow-up. COMPARISON: Wrist radiographs dated 03/19/2024. TECHNIQUE: PA, lateral, and oblique views of the left wrist. XR/XR wrist LT min 3V FINDINGS / IMPRESSION: Overlying cast obscures fine bony detail. The intra-articular fracture of the distal radius is redemonstrated. Alignment is near-anatomic. A transverse fracture at the base of the ulnar styloid is also redemonstrated. No new fracture is identified. External Record Review External record reviewed: Outpatient record and Prior outpatient radiology Prescription Management I considered prescription management with: Pain Medication Critical Care Time Critical Care Time Critical Care Time: No Discharge Plan Discharge Clinical Impression: Nondisplaced fracture of styloid process of left ulna Qualifiers: Encounter type: subsequent encounter Fracture type: closed Fracture healing: with routine healing Qualified Code(s): S52.615D - Nondisplaced fracture of left ulna styloid process, subsequent encounter for closed fracture with routine healing Patient Disposition: Home, Self-Care Instructions: Wrist Fracture in Adults (ED) Additional Instructions: follow up with orthopedics tomorrow as scheduled Prescriptions: No Action pantoprazole [Protonix] 40 mg tablet,delayed release (DR/EC) 40 mg PO DAILY@0630 promethazine 25 mg tablet 25 mg PO TID PRN (Reason: nausea/vomiting) ketorolac 10 mg tablet 10 mg PO TID PRN (Reason: pain) 5 Days Qty: 15 0RF promethazine 25 mg tablet 25 mg PO TID PRN (Reason: nausea and vomiting) Qty: 10 0RF promethazine 25 mg tablet 25 mg PO TID PRN (Reason: nausea and vomiting) Qty: 30 0RF lorazepam [Ativan] 1 mg tablet 1 mg PO BEDTIME PRN (Reason: sleep) Qty: 5 0RF ondansetron 4 mg tablet,disintegrating 4 mg PO DAILY PRN (Reason: nausea and vomiting) 5 Days Qty: 14 0RF lorazepam 1 mg tablet 1 mg PO BID PRN (Reason: anxiety) Qty: 7 0RF insulin aspart U-100 [Novolog FlexPen U-100 Insulin] 100 unit/mL (3 mL) insulin pen 1 sliding scale dose subcut TID 30 Days Qty: 9 3RF Rx Instructions: 1 sliding scale dose subcutaneously; 1 unit for every 35 points over 135, 1:15 ratio (uses approx 20-25 units daily) (DME) Ketone Urine Test Strip See Rx Instructions .ROUTE .MEDSUPPLY Qty: 25 3RF Rx Instructions: As directed prn glucose over 250, nausea/vomiting tid Baqsimi 3 mg/actuation spray,non-aerosol 3 mg intranasal BID MDD 6mg PRN (Reason: unresponsive hypoglycemia) 30 Days Qty: 2 1RF Rx Instructions: P.R.N. for unresponsive hypoglycemia. Check to see if patient breathing and pulse, initiate CPR if needed. Call 911. Use when patient can not self treat low sugar. [place] once, position lying on the side, repeat again in 15 minutes. insulin degludec [Tresiba FlexTouch U-200] 200 unit/mL (3 mL) insulin pen 20 unit subcut DAILY 30 Days Qty: 6 6RF Print Language: Kiswahili
[2024-04-08 17:52] VITALS: BP 113/75; PULSE 91; RESP 16; TEMP 36.8; O2SAT 98; BMI 19.0
[2024-04-08 18:34] VITALS: BP 113/75; PULSE 91; RESP 16; TEMP 36.8; O2SAT 98
== END 2024-04-08 18:35 | disposition home or self-care (01) ==
PROVIDERS: Emergency Provider Internal Medicine; PCP Nurse Practitioner Family
DX: S52.615D Nondisplaced fracture of left ulna styloid process, subsequent encounter for closed fracture with routine healing (principal); W18.39XD Other fall on same level, subsequent encounter
CPT/HCPCS: 73110; 99282; 99283

== ENCOUNTER 2024-04-09 10:21 | Outpatient (REF) | payer MEDICAID, SELFPAY ==
--- NOTE | ~2024-04-09 | XR_ITS ---
EXAMINATION: XR WRIST, LEFT CLINICAL INFORMATION: Pain COMPARISON: Wrist radiographs 04/08/2024 TECHNIQUE: PA, lateral, and oblique views of the left wrist. FINDINGS: Again seen is a displaced ulnar styloid avulsion fracture and a nondisplaced fracture of the distal radial metaphysis in similar alignment. Joint spaces are maintained. Soft tissues are unremarkable. XR/XR wrist LT min 3V IMPRESSION: 1. Again seen is a displaced ulnar styloid avulsion fracture and a nondisplaced fracture of the distal radial metaphysis in similar alignment. Electronically signed by: Clarisse Dial MD 04/13/2024 03:08 PM EDT
== END 2024-04-09 10:22 | disposition home or self-care (01) ==
LOC: HO.HOSX 10:21
PROVIDERS: Visit Provider Orthopaedic Surgery
DX: M25.532 Pain in left wrist (principal)
CPT/HCPCS: 73110; 99212

== ENCOUNTER 2024-04-09 11:09 | Outpatient (AMB) | payer MEDICAID, SELFPAY ==
[2024-04-09 11:26] VITALS: BMI 18.4
--- NOTE | 2024-04-09 11:26 | A.OFFVIS_ITS ---
Vital Signs 04/09/24 11:26 Height 6 ft Weight 136 lb BMI 18.4 Handedness Right Intake Visit Reasons: OV-LT radius fx, DOI 03/11/24 Intake Note: Bradford is a 29 yo right hand dominant male who presents today for follow up s/p fracture to the left radius and left ulnar styloid, DOI 03/11/24. Patient reports he feels awkward moving his wrist around. He is having occasional sharp pain and aching that comes and goes on the dorsal aspect of the left wrist but finds relief after taking Tylenol. Allergies diphenhydramine [From Benadryl] Allergy (Verified 04/09/24 11:28) Anaphylaxis haloperidol [From Haldol] Allergy (Verified 04/09/24 11:28) Difficulty Swallowing metoclopramide [From Reglan] Adverse Reaction (Verified 04/09/24 11:28) Anxiety HPI HPI OV-LT radius fx, DOI 03/11/24: Details: Bradford is a 29 year old right hand dominant Diabetic man who presents for a left distal radius & ulnar styloid fracture, DOI: 03/12/24. He fell backwards while playing Basketball, was seen in the ED the same day and placed in a sugar- tong splint. He was seen in the ED on 03/20/24 with complaints of pain & his cast was too tight. He had no numbness or change in color to fingertips, and was told to keep his arm elevated more often. He says he is doing better. He has some aching in his wrist, and an occasional sharp pain, but this is managed with Tylenol. He says he lives alone and is very active, he is trying to get his cousin to help him with some activities but he says he does tend to overwork himself at home. He smokes cigarettes & vapes, and has Type-1 Diabetes. 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 COUNT INCLUDES THE [facility] Medical History Dental infection Abdominal pain Colitis DKA (diabetic ketoacidosis) Hyperglycemia 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 type 1 Social History Household Members: Other Household Members Other:: cousin Housing: House Do you presently have visiting nurse or other home services: No Alcohol intake: current Alcohol intake frequency: holidays/special occasions only Patient Tobacco Use Status: Current everyday Tobacco user Tobacco use type: Cigarette Cigarette Packs Per Day: 0 Cigarettes Per Day: 0 Years Smoked: 10 e-Cigarette/Vaping Use: Never Used Second Hand Smoke Exposure: No Substance Use Type: Marijuana service: No Current occupational status: employed 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 Neuro: Normal sensation to the tips of all digits today in clinic Vascular: Cap refill brisk ROM: With encouragement he can make a fist and extend all his digits ~45 degrees wrist pronation ~45 degrees wrist supination Not particularly tender over the fracture site. DRUJ stable All the swelling has resolved. Radiographs: 3 views of the left wrist were viewed by me today in clinic. They show a left minimally displaced ulnar styloid base fracture, & a minimally displaced distal radius fracture, with satisfactory fracture alignment. It is a transverse T-type distal radius metaphyseal fracture with extension to the articular surface at about the scapholunate interval. It has not displaced and has some early evidence of interval bony healing Assessment & Plan Assessment & Plan (1) Fracture of left distal radius: Code(s): S52.502A - Unspecified fracture of the lower end of left radius, initial encounter for closed fracture Category: Medical (2) Nondisplaced fracture of styloid process of left ulna: Code(s): S52.615A - Nondisplaced fracture of left ulna styloid process, initial encounter for closed fracture Category: Medical Qualifiers: Encounter type: subsequent encounter Fracture healing: with routine healing Fracture type: closed Qualified Code(s): S52.615D - Nondisplaced fracture of left ulna styloid process, subsequent encounter for closed fracture with routine healing (3) Diabetes mellitus type 1: Code(s): E10.9 - Type 1 diabetes mellitus without complications Category: Medical Plan Assessment & Plan: 1. Left distal radius transverse metapyseal fracture, minimally displaced, T- type with extension to the articular surface From a basketball injury, DOI: 03/12/24 2. Left ulnar styloid fracture, From a basketball injury, DOI: 03/12/24 I educated him about these conditions His fracture alignment has remained stable. I believe we can continue to manage this non-operatively. He was fitted for a velcro wrist splint, to be worn like a cast except for showering, for the next 4 weeks He will remove his splint at home, when at rest, and to work on finger & wrist ROM exercises I discussed activity modification, he is to avoid any sports or impact type activities for at least the next 8 weeks. I explained the importance of not using his left hand for activities to all for healing. He is a smoker & vapes. I explained the effects of smoking on delaying healing, and he expressed understanding. I explained this injury generally takes 8-12 weeks to heal in a non-smoker. 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 I ordered OT hand therapy to work on ROM exercises, I want this to begin a few weeks from now to allow for more healing. He will follow up in 4 weeks, with X-rays 3 V L wrist Scribed for Eladia Kidd MD by Perry Julio, medical practice manager, on 04/09/24 at 11:40 AM, EST. Orders: Orders XR wrist LT min 3V Today M25.532 - Pain in left wrist OT Evaluation and Treatment Today S52.502A - Unspecified fracture of the lower end of left radius, initial encounter for closed fracture, S52.615D - Nondisplaced fracture of left ulna styloid process, subsequent encounter for closed fracture with routine healing Coding Level of Care Code Global (75572) Diagnoses Fracture of left distal radius S52.502A Nondisplaced fracture of styloid process of left ulna S52.615D Encounter type: subsequent encounter Fracture healing: with routine healing Fracture type: closed Diabetes mellitus type 1 E10.9
== END 2024-04-09 11:53 | disposition home or self-care (01) ==
PROVIDERS: PCP Nurse Practitioner Family; Visit Provider Orthopaedic Surgery
DX: S52.502A Unspecified fracture of the lower end of left radius, initial encounter for closed fracture (principal); S52.615D Nondisplaced fracture of left ulna styloid process, subsequent encounter for closed fracture with routine healing; E10.9 Type 1 diabetes mellitus without complications
CPT/HCPCS: 99024

== ENCOUNTER 2024-04-13 13:24 | Emergency (ER) | payer MEDICAID, SELFPAY ==
--- NOTE | ~2024-04-13 | XR_ITS ---
EXAMINATION: XR CHEST CLINICAL INFORMATION: chest pain COMPARISON: Chest radiograph 03/29/2024 TECHNIQUE: One view of the chest FINDINGS: Lines and tubes: EKG leads overlie the patient. Clear lungs. No pleural effusion. No pneumothorax. Unchanged cardiomediastinal silhouette. XR/XR chest 1V IMPRESSION: * Clear lungs. Electronically signed by: Clarisse Dial MD 04/13/2024 03:06 PM EDT
[2024-04-13 13:29] VITALS: BP 116/48; PULSE 106; O2SAT 100
--- NOTE | 2024-04-13 13:35 | ECG_ITS ---
Test Reason : PAIN Blood Pressure : / mmHG Vent. Rate : 089 BPM Atrial Rate : 089 BPM P-R Int : 114 ms QRS Dur : 100 ms QT Int : 374 ms P-R-T Axes : -07 -46 054 degrees QTc Int : 455 ms Normal sinus rhythm Left anterior fascicular block Abnormal ECG When compared with ECG of 29-MAR-2024 14:43, No significant change was found Referred By: Payton Wang Electronically Signed By:FERNANDEZ GRAJEDA
[2024-04-13 13:39] VITALS: BP 102/72; PULSE 98; RESP 16; TEMP 37.3; O2SAT 100; BMI 18.4
--- NOTE | 2024-04-13 13:44 | ED_ITS ---
HPI - SOB/Dyspnea General Chief Complaint: Dyspnea Stated Complaint: SOB Source: patient, EMS and old records reviewed Mode of arrival: EMS Limitations: no limitations History of Present Illness ED Provider: GERHARD ESCALERA Narrative: 29 yo male with PMH of IDDM, gastroparesis, severe anxiety, GERD here with c/o having to take his niece to a back to school event yesterday and he had to walk a lot and it made his left and right chest tight he felt short of breath. He notes he has pain moving. He thinks he recently had a GI bug as he had very foul smelling bowel movements. He was given duoneb en route with minimal relief. No fevers, travel, procedures. Has had episodes of chest pain in the past. His blood sugar has been up and down. MD elicited complaint: shortness of breath and chest pain Pertinent past history: diabetes Onset (ago): day(s) (1) Context: occurred during exertion Timing: constant Severity: moderate Exacerbating factors: exertion, movement, coughing and other (palpating the area) Relieving factors: bronchodilators Known history of: asthma and diabetes Associated symptoms: chest pain and cough Treatment prior to arrival: bronchodilator Related Data Home Medications ?Medication ?Instructions ?Recorded ?Confirmed pantoprazole 40 mg tablet,delayed 40 mg PO DAILY@0630 12/19/22 06/01/23 release (Protonix) promethazine 25 mg tablet 25 mg PO TID PRN nausea/vomiting 01/23/23 06/01/23 acetaminophen 500 mg tablet 500 mg PO Q6H PRN 04/09/24 Previous Rx's ?Medication ?Instructions ?Recorded ketorolac 10 mg tablet 10 mg PO TID PRN pain 5 days #15 05/04/23 tabs ondansetron 4 mg disintegrating 4 mg PO DAILY PRN nausea and 02/23/24 tablet vomiting 5 days #14 tabs acetone (urine) test (Ketone Urine #25 ea 03/28/24 Test strips) glucagon 3 mg/actuation nasal 3 mg intranasal BID PRN 03/28/24 spray (Baqsimi) unresponsive hypoglycemia 30 days #2 ea insulin aspart U-100 100 unit/mL 1 sliding scale dose subcut TID 30 03/28/24 (3 mL) subcutaneous pen (Novolog days #9 mL FlexPen U-100 Insulin aspart) insulin degludec 200 unit/mL (3 20 unit (0.1 mL) subcut DAILY 30 03/28/24 mL) subcutaneous pen (Tresiba days #6 mL FlexTouch U-200 insulin) albuterol sulfate 90 mcg/actuation 2 puff inhalation QID PRN 04/13/24 aerosol inhaler shortness of breath or wheezing #6.7 grams Allergies Allergy/AdvReac Type Severity Reaction Status Date / Time diphenhydramine Allergy Anaphylaxis Verified 04/13/24 13:40 [From Benadryl] haloperidol [From Haldol] Allergy Difficulty Verified 04/13/24 13:40 Swallowing metoclopramide [From Reglan] AdvReac Anxiety Verified 04/13/24 13:40 Review of Systems 2 Review of Systems: Constitutional : No Weight loss, No Fever, No Chills ENT/Mouth : No sore throat, No Rhinorrhea Eyes: No Eye Pain, No Swelling Cardiovascular : pos Chest Pain, pos SOB, no Dyspnea on Exertion, No Orthopnea, No Edema, No Palpitations Respiratory : No Cough, No Sputum Gastrointestinal : pos Nausea, pos Vomiting, No Diarrhea, No abdominal Pain, No Hematochezia, No Melena Genitourinary : No Dysuria, No Urinary Frequency Musculoskeletal : No joint pain, No Myalgias, No Joint Swelling Skin : No Skin Lesions, No rash Neuro : No Weakness, No Numbness, No Dizziness, No Headache Psych : No Anxiety/Panic, No Depression All other systems reviewed and are negative [facility] Past Medical History Attestation statement: The following information was validated with the patient. Source: old records reviewed Medical History Dental infection Abdominal pain Colitis DKA (diabetic ketoacidosis) Hyperglycemia 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 type 1 Social History Social History Household Members: Other Household Members Other:: cousin Housing: House Do you presently have visiting nurse or other home services: No Alcohol intake: current Alcohol intake frequency: holidays/special occasions only Patient Tobacco Use Status: Current everyday Tobacco user Tobacco use type: Cigarette Cigarette Packs Per Day: 0 Cigarettes Per Day: 0 Years Smoked: 10 Smoked in Last 30 Days: Yes e-Cigarette/Vaping Use: Never Used Second Hand Smoke Exposure: No Use of substances other than those prescribed or required for medical reasons: Yes Substance Use Type: Marijuana Advance Directives: No Advance Directives Information Provided: No Do you have a plan to hurt others: No Plan service: No Current occupational status: employed 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 Oriented X3. No acute distress. anxious Eyes: Pupils equal, round and reactive to light. ENT: Pharynx normal. Neck: Normal inspection. Neck supple. CVS: Normal heart rate and rhythm. Pulses normal. Chest: ttp along L chest lower wall Respiratory: No respiratory distress. Breath sounds normal. Abdomen: Soft and non-tender. Skin: Skin warm and dry. Normal skin color. Normal skin turgor. Extremities: No lower extremity edema. Neuro: Oriented X 3. No motor deficit. No sensory deficit. Medications Administered Discontinued Medications Generic Name Dose Route Start Last Admin Trade Name Freq PRN Reason Stop Dose Admin Lactated Ringer's 1,000 mls @ 999 mls/hr 04/13/24 13:35 04/13/24 15:47 Lr IV 04/13/24 14:35 Infused .Q1H1M ONE Infusion Insulin Human Regular 5 unit 04/13/24 13:50 04/13/24 14:10 Insulin Regular, Human 100 Unit/Ml 10 Ml Vial IVPUSH 04/13/24 13:51 5 unit ONCE ONE Administration Lorazepam 2 mg 04/13/24 13:35 04/13/24 13:52 Lorazepam 2 Mg/Ml Vial IVPUSH 04/13/24 13:36 2 mg ONCE ONE Administration Ondansetron HCl 4 mg 04/13/24 13:35 04/13/24 13:48 Ondansetron Hcl 4 Mg/2 Ml Vial IVPUSH 04/13/24 13:36 4 mg ONCE ONE Administration Medical Decision Making Medical Decision Making MDM Narrative: 29 yo male with PMH of IDDM, gastroparesis, severe anxiety, GERD here with c/o n/v anxiety and chest pain that he has presented for in the past at this time will need basic labs, CXR for PTX, EKG, troponin x 1, ddimer, IVF, insulin 5 units and IV ativan ordered. PERC negative at this time. Differential Diagnosis Differential Diagnoses: The differential diagnosis associated with the presentation includes atypical chest pain, PTX, pneumonia, MSK pain Admission/Observation Consideration of admission/observation: Escalation of care including admission/observation considered labs reassuring, work up negative negative EKG and trop blood sugar coming down stable for DC feels better stable for DC Lab Data MDM Lab Attestation statement: I reviewed the patient's lab results. 04/13/24 14:09 04/13/24 14:09 Labs: Lab Results 04/13/24 04/13/24 04/13/24 Range/Units 13:43 14:09 14:21 WBC 5.6 (4.8-10.8) X10*3/uL RBC 4.75 (4.60-5.80) X10*6/uL Hgb 12.8 L (14.0-18.0) g/dl Hct 37.5 L (42.0-52.0) % MCV 78.9 L (80.0-98.0) fL MCH 26.9 L (27.0-33.0) pg MCHC 34.1 (31.0-36.0) g/dl RDW 13.6 (11.0-16.0) % Plt Count 216 (160-400) X10*3/uL MPV 9.8 (9.4-12.4) fL Immature Gran % (Auto) 0.2 (0.0-0.4) % Neut % (Auto) 63.2 (45-73) % Lymph % (Auto) 29.0 (20-40) % [place] % (Auto) 6.6 (2-11) % Eos % (Auto) 0.5 (0-4) % Baso % (Auto) 0.5 (0-2) % Lymph # (Auto) 1.6 (1.2-4.9) X10*3/uL [place] # (Auto) 0.4 (0.1-1.2) X10*3/uL Eos # (Auto) 0.0 (0.0-0.4) X10*3/uL Baso # (Auto) 0.0 (0.0-0.2) X10*3/uL Abs Immat Gran (auto) 0.01 (0.00-0.03) X10*3/uL Absolute Neuts (auto) 3.5 (2.0-8.3) x10*3/uL Absolute Nucleated RBC 0.000 (0.0-0.012) X10*3/uL Nucleated RBC % (auto) 0.0 (0.0-0.2) /100WBC VBG pH 7.51 H (7.32-7.43) VBG pCO2 25 mmHg VBG pO2 95 mmHg VBG HCO3 21 L (22-26) mmol/L VBG O2 Saturation 100.0 % VBG Base Excess -0.3 mmol/L Sodium 131 L (135-145) mmol/L Potassium 3.9 (3.3-5.1) mmol/L Chloride 97 (96-108) mmol/L Carbon Dioxide 19 L (22-29) mmol/L Anion Gap 19 (12-20) BUN 17 H (9-16) mg/dL Creatinine 1.01 (0.5-1.4) mg/dL Estim Creat Clear Calc 95.0 Estimated GFR > 60 POC Glucose 433 H* (60-115) mg/dL Random Glucose 454 H* (60-115) mg/dL Calcium 9.3 (8.4-10.2) mg/dL Magnesium 1.7 (1.6-2.6) mg/dL Total Bilirubin 0.7 (0.0-1.0) mg/dL Direct Bilirubin 0.3 (0.0-0.5) mg/dL AST 16 (5-37) U/L ALT 12 (0-40) U/L Alkaline Phosphatase 70 (39-117) U/L Troponin I High Sens < 2.7 (<3.5-35.0) ng/L Total Protein 6.8 (6.5-8.0) g/dL Albumin 4.0 (3.5-5.0) g/dL Lipase 5 L (8-78) U/L Ethyl Alcohol < 10 mg/dL 04/13/ Range/Units 15:17 WBC (4.8-10.8) X10*3/uL RBC (4.60-5.80) X10*6/uL Hgb (14.0-18.0) g/dl Hct (42.0-52.0) % MCV (80.0-98.0) fL MCH (27.0-33.0) pg MCHC (31.0-36.0) g/dl RDW (11.0-16.0) % Plt Count (160-400) X10*3/uL MPV (9.4-12.4) fL Immature Gran % (Auto) (0.0-0.4) % Neut % (Auto) (45-73) % Lymph % (Auto) (20-40) % [place] % (Auto) (2-11) % Eos % (Auto) (0-4) % Baso % (Auto) (0-2) % Lymph # (Auto) (1.2-4.9) X10*3/uL [place] # (Auto) (0.1-1.2) X10*3/uL Eos # (Auto) (0.0-0.4) X10*3/uL Baso # (Auto) (0.0-0.2) X10*3/uL Abs Immat Gran (auto) (0.00-0.03) X10*3/uL Absolute Neuts (auto) (2.0-8.3) x10*3/uL Absolute Nucleated RBC (0.0-0.012) X10*3/uL Nucleated RBC % (auto) (0.0-0.2) /100WBC VBG pH (7.32-7.43) VBG pCO2 mmHg VBG pO2 mmHg VBG HCO3 (22-26) mmol/L VBG O2 Saturation % VBG Base Excess mmol/L Sodium (135-145) mmol/L Potassium (3.3-5.1) mmol/L Chloride (96-108) mmol/L Carbon Dioxide (22-29) mmol/L Anion Gap (12-20) BUN (9-16) mg/dL Creatinine (0.5-1.4) mg/dL Estim Creat Clear Calc Estimated GFR POC Glucose 316 H (60-115) mg/dL Random Glucose (60-115) mg/dL Calcium (8.4-10.2) mg/dL Magnesium (1.6-2.6) mg/dL Total Bilirubin (0.0-1.0) mg/dL Direct Bilirubin (0.0-0.5) mg/dL AST (5-37) U/L ALT (0-40) U/L Alkaline Phosphatase (39-117) U/L Troponin I High Sens (<3.5-35.0) ng/L Total Protein (6.5-8.0) g/dL Albumin (3.5-5.0) g/dL Lipase (8-78) U/L Ethyl Alcohol mg/dL Independent Interpretation I performed an independent interpretation of an: EKG and Plain X-Ray Interpretation: Rate: 89 Rhythm: NSR [place]: left Normal P waves. Normal ERICA. Normal QRS complex. ST T wave : no DES, t waves tall V3-V4 qTC: 455 prior studies: no change mar 29 The study has been interpreted contemporaneously by me. . Radiology Impression Discussion of test interpretation with radiology: I have reviewed the radiologist's reading. Independent Historian Clinical information obtained from an independent historian. History obtained from or confirmed by: EMS Discharge Plan Discharge Clinical Impression: Atypical chest pain, Acute hyperglycemia Patient Disposition: Home, Self-Care Instructions: Chest Pain (ED), Diabetic Hyperglycemia (ED) Additional Instructions: labs, EKG, chest xray normal return for worsening symptoms or concern rest and stay hydrated. Prescriptions: New albuterol sulfate 90 mcg/actuation HFA aerosol inhaler 2 puff inhalation QID PRN (Reason: shortness of breath or wheezing) Qty: 6.7 0RF No Action pantoprazole [Protonix] 40 mg tablet,delayed release (DR/EC) 40 mg PO DAILY@0630 promethazine 25 mg tablet 25 mg PO TID PRN (Reason: nausea/vomiting) ketorolac 10 mg tablet 10 mg PO TID PRN (Reason: pain) 5 Days Qty: 15 0RF ondansetron 4 mg tablet,disintegrating 4 mg PO DAILY PRN (Reason: nausea and vomiting) 5 Days Qty: 14 0RF acetaminophen 500 mg tablet 500 mg PO Q6H PRN insulin aspart U-100 [Novolog FlexPen U-100 Insulin] 100 unit/mL (3 mL) insulin pen 1 sliding scale dose subcut TID 30 Days Qty: 9 3RF Rx Instructions: 1 sliding scale dose subcutaneously; 1 unit for every 35 points over 135, 1:15 ratio (uses approx 20-25 units daily) (DME) Ketone Urine Test Strip See Rx Instructions .ROUTE .MEDSUPPLY Qty: 25 3RF Rx Instructions: As directed prn glucose over 250, nausea/vomiting tid Baqsimi 3 mg/actuation spray,non-aerosol 3 mg intranasal BID MDD 6mg PRN (Reason: unresponsive hypoglycemia) 30 Days Qty: 2 1RF Rx Instructions: P.R.N. for unresponsive hypoglycemia. Check to see if patient breathing and pulse, initiate CPR if needed. Call 911. Use when patient can not self treat low sugar. Lyman once, position lying on the side, repeat again in 15 minutes. insulin degludec [Tresiba FlexTouch U-200] 200 unit/mL (3 mL) insulin pen 20 unit subcut DAILY 30 Days Qty: 6 6RF Print Language: Slovenian
[2024-04-13 13:48] LABS: Glucose, Whole Blood 433 mg/dL (60-115)
[2024-04-13] MEDS: Lactated Ringers 1,000 ML 999 ML IV (13:48)
[2024-04-13] MEDS: ondansetron HCL 4 MG/2 ML VIAL IVPUSH (13:48)
[2024-04-13] MEDS: LORazepam 2 MG/ML VIAL IVPUSH (13:52)
[2024-04-13 14:06] VITALS: BP 101/64; PULSE 89; RESP 14; O2SAT 94
[2024-04-13] MEDS: Insulin Regular, Human 100 UNIT/ML 10 ML VIAL IVPUSH (14:10)
[2024-04-13 14:14] LABS: MANUAL DIFF FLAG NO
[2024-04-13 14:15] LABS: Basophils Percent Auto 0.5 % (0-2); Eosinophils Percent Auto 0.5 % (0-4); Hematocrit 37.5 % (42.0-52.0); Hemoglobin 12.8 g/dl (14.0-18.0); Imm Gran Abs Auto 0.01 X10*3/uL (0.00-0.03); Imm Gran Pct Auto 0.2 % (0.0-0.4); Lymphocytes Absolute Auto 1.6 X10*3/uL (1.2-4.9); Mean Corpuscular HGB Conc 34.1 g/dl (31.0-36.0); Mean Corpuscular Hemoglobin 26.9 pg (27.0-33.0); Mean Corpuscular Volume 78.9 fL (80.0-98.0); Mean Platelet Volume 9.8 fL (9.4-12.4); Monocytes Absolute Auto 0.4 X10*3/uL (0.1-1.2); Monocytes Percent Auto 6.6 % (2-11); Neutrophils Absolute Auto 3.5 x10*3/uL (2.0-8.3); Neutrophils Percent Auto 63.2 % (45-73); Platelet Count 216 X10*3/uL (160-400); Red Blood Count 4.75 X10*6/uL (4.60-5.80); Red Cell Distribution Width 13.6 % (11.0-16.0); White Blood Count 5.6 X10*3/uL (4.8-10.8)
--- NOTE | 2024-04-13 14:21 | PC.NURSE ---
22g EMS IV in right hand. IVP insulin given. Pt resting, no signs of distress
[2024-04-13 14:25] LABS: Venous Blood Gas Refer to POC result
[2024-04-13 14:25] LABS: VBG Base Excess -0.3 mmol/L; VBG HCO3 21 mmol/L (22-26); VBG pCO2 25 mmHg; VBG pH 7.51 (7.32-7.43); VBG pO2 95 mmHg
[2024-04-13 14:45] LABS: Troponin-I High Sensitivity < 2.7 ng/L (<3.5-35.0)
[2024-04-13 14:54] LABS: Alanine Aminotransferase 12 U/L (0-40); Alkaline Phosphatase 70 U/L (39-117); Anion Gap 19 (12-20); Aspartate Amino Transferase 16 U/L (5-37); Bilirubin Direct 0.3 mg/dL (0.0-0.5); Bilirubin Total 0.7 mg/dL (0.0-1.0); Blood Urea Nitrogen 17 mg/dL (9-16); Calcium 9.3 mg/dL (8.4-10.2); Carbon Dioxide 19 mmol/L (22-29); Chloride 97 mmol/L (96-108); Estimated Glomerular Filt Rate > 60; Ethanol < 10 mg/dL; Glucose Random 454 mg/dL (60-115); Lipase 5 U/L (8-78); Magnesium 1.7 mg/dL (1.6-2.6); Potassium 3.9 mmol/L (3.3-5.1); Sodium 131 mmol/L (135-145); Total Protein 6.8 g/dL (6.5-8.0)
[2024-04-13 15:20] LABS: Glucose, Whole Blood 316 mg/dL (60-115)
[2024-04-13 16:19] VITALS: BP 104/65; PULSE 92; RESP 18; TEMP 37.2; O2SAT 100
== END 2024-04-13 16:20 | disposition home or self-care (01) ==
PROVIDERS: Emergency Provider Emergency Medicine
DX: R07.89 Other chest pain (principal); E11.65 Type 2 diabetes mellitus with hyperglycemia; R11.2 Nausea with vomiting, unspecified; R06.02 Shortness of breath; R05.9 Cough, unspecified; F17.210 Nicotine dependence, cigarettes, uncomplicated; Z79.4 Long term (current) use of insulin
CPT/HCPCS: 36415; 71045; 80048; 80076; 80307; 82803; 82947; 83690; 83735; 84484; 85025; 93005; 96361; 96374; 96375; 99284; J2060; J2405; J7120

== ENCOUNTER 2024-05-01 16:03 | Outpatient (AMB) | payer MEDICAID, SELFPAY ==
--- NOTE | 2024-05-01 16:13 | MHC.OFFVIS ---
Intake Visit Reasons: Type 1 diabetes mellitus without complications Intake Note: Random Glucose- 252 mg/dl Pt tested urine for Ketones due to hyperglycemia and complaints of nausea. Patient's urine ketone negative Data Technical Lead Required: No Accompanied by: Self / Same As Patient Allergies diphenhydramine [From Benadryl] Allergy (Verified 04/13/24 13:40) Anaphylaxis haloperidol [From Haldol] Allergy (Verified 04/13/24 13:40) Difficulty Swallowing metoclopramide [From Reglan] Adverse Reaction (Verified 04/13/24 13:40) Anxiety [facility] Medical History Dental infection Abdominal pain Colitis DKA (diabetic ketoacidosis) Hyperglycemia 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 type 1 Social History Household Members: Other Household Members Other:: cousin Housing: House Do you presently have visiting nurse or other home services: No Alcohol intake: current Alcohol intake frequency: holidays/special occasions only Patient Tobacco Use Status: Current everyday Tobacco user Tobacco use type: Cigarette Cigarette Packs Per Day: 0 Cigarettes Per Day: 0 Years Smoked: 10 e-Cigarette/Vaping Use: Never Used Second Hand Smoke Exposure: No Substance Use Type: Marijuana service: No Current occupational status: employed 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 Results Reviewed Results Reviewed: Laboratory Last Values Glucose (Clinic) 252 mg/dL (60-115) H 05/01/24 16:12 Assessment & Plan Assessment & Plan (1) Diabetes mellitus type 1: Code(s): E10.9 - Type 1 diabetes mellitus without complications Category: Medical Plan: Patient at visit to set up an insert Dexcom G7 Instructed patient sensors water proof you can shower, or swim do not submerge sensor in water for over 30 minutes Is sensor falls off cannot put back in you need to replace sensor, customer service number given to patient for sensor replacement Sensor placed on the Back of Left arm Patient left visit with sensor in warmup Reviewed how to interpret trend arrows Reminded patient that to check finger sticks if symptoms do not match sensor reading. Discussed lag time between finger stick and sensor data.? Instructed patient she should always keep blood glucometer for backup testing if needed Reviewed delay of CGM from fingersticks Reminded pt that if symptoms do not match sensor still needs to check fingersticks. Reviewed insulin pump basics today with Patient. Explained pros and cons of insulin pumps. Showed pt various pumps, infusion sets, and cgms currently available. Reviewed need to wear pump 24/7 and need to change infusion set every 3 days. Also stressed importance of frequent BG checks, 4x daily minimum or use pump that is integrated with CGM.? Portions of this note were created using voice recognition software, please excuse any words or phrases that may have been misinterpreted. Patient Instructions: Patient instruction: CGM provides information on blood glucose control throughout the day, including hyperglycemia and hypoglycemia. ? Continue to monitor blood glucose as instructed. Follow nutrition guidelines provided. Report any discomfort promptly to health care provider. ?Stay well-hydrated. You can bathe ,shower, swim and exercise while wearing the glucose sensor. Do not submerge glucose sensor in water for more than 30 minutes. reschedule appt with [facility], follow up with Lorri in 10 days Coding Level of Care Code Est Pt Level 1 (66407) Diagnoses Diabetes mellitus type 1 E10.9
[2024-05-01 16:15] LABS: Glucose, Whole Blood 252 mg/dL (60-115)
== END 2024-05-01 16:53 | disposition home or self-care (01) ==
PROVIDERS: Visit Provider Registered Nurse Diabetes Educator
DX: E10.9 Type 1 diabetes mellitus without complications (principal)

== ENCOUNTER → 2024-05-01 16:03 | Outpatient (BNVA) | payer MEDICAID, SELFPAY | PROVIDERS: Visit Provider Registered Nurse Diabetes Educator | DX: E10.9 Type 1 diabetes mellitus without complications (principal) | CPT/HCPCS: 82947; 99211 ==

== ENCOUNTER 2024-05-07 04:25 | Emergency (ER) | payer MEDICAID, SELFPAY ==
--- NOTE | ~2024-05-07 | XR_ITS ---
STUDY: Thoracic and lumbar spine Indication: Injury with chronic pain COMPARISON: 03/12/2024 lumbar spine, 04/13/2024 chest radiograph TECHNIQUE: 2 view thoracic, three-view lumbar spine FINDINGS: Thoracic spine: No fracture or dislocation. Alignment is satisfactory. No focal paravertebral soft tissue swelling. Heart and mediastinum are unremarkable. The visualized lungs are clear. Lumbar spine: 5 lumbar type vertebral body are identified and are maintained in height. Disc spaces are preserved. Pedicles and SI joints within normal limits. Question redemonstration absence posterior elements upper sacrum and possibly L5, question developmental anomaly. XR/XR lumbar spine 2-3V IMPRESSION: 1. No acute bony pathology thoracic and lumbar spine. Electronically signed by: Keesha Harper MD 05/07/2024 08:27 AM EDT
--- NOTE | ~2024-05-07 | XR_ITS ---
STUDY: Thoracic and lumbar spine Indication: Injury with chronic pain COMPARISON: 03/12/2024 lumbar spine, 04/13/2024 chest radiograph TECHNIQUE: 2 view thoracic, three-view lumbar spine FINDINGS: Thoracic spine: No fracture or dislocation. Alignment is satisfactory. No focal paravertebral soft tissue swelling. Heart and mediastinum are unremarkable. The visualized lungs are clear. Lumbar spine: 5 lumbar type vertebral body are identified and are maintained in height. Disc spaces are preserved. Pedicles and SI joints within normal limits. Question redemonstration absence posterior elements upper sacrum and possibly L5, question developmental anomaly. XR/XR thoracic spine 2V IMPRESSION: 1. No acute bony pathology thoracic and lumbar spine. Electronically signed by: Keesha Harper MD 05/07/2024 08:27 AM EDT
[2024-05-07 04:28] VITALS: BP 120/88; PULSE 94; O2SAT 98
[2024-05-07 04:37] VITALS: BP 119/86; PULSE 98; RESP 20; TEMP 37; O2SAT 100; BMI 18.4
[2024-05-07] MEDS: Ketorolac Tromethamine 60 MG/2 ML VIAL IM (04:41)
[2024-05-07] MEDS: Cyclobenzaprine HCl 10 MG TABLET PO (04:44)
--- NOTE | 2024-05-07 04:47 | PC.NURSE ---
Pt BIB EMS, per pt he was injured playing basketball 2 months ago fracturing his left wrst and having back pain. All reports were negative but pt reporting worsening back pain, unable to move comfortably. Pain 7/10 reporting feeling a popping in his back. at bedside to assess pt and ordered mediations for pain. Medications administered per order. Pt going for Xray.
--- NOTE | 2024-05-07 04:54 | ED_ITS ---
HPI - Back Pain/Injury General Chief Complaint: Back Pain/Injury Stated Complaint: back pain Time Seen by Provider: 05/07/24 04:28 Source: patient and EMS Mode of arrival: EMS Limitations: no limitations History of Present Illness ED Provider: Dr. Kenney HPI Narrative: Patient is 2 months out from hurting his back and fracturing his wrist while playing basketball. He states that tonight his back was keeping him from sleeping. He has no weakness, no bowel or bladder incontinence. MD elicited complaint: back pain and back injury Related Data Home Medications ?Medication ?Instructions ?Recorded ?Confirmed pantoprazole 40 mg tablet,delayed 40 mg PO DAILY@0630 12/19/22 06/01/23 release (Protonix) promethazine 25 mg tablet 25 mg PO TID PRN nausea/vomiting 01/23/23 06/01/23 acetaminophen 500 mg tablet 500 mg PO Q6H PRN 04/09/24 Previous Rx's ?Medication ?Instructions ?Recorded ketorolac 10 mg tablet 10 mg PO TID PRN pain 5 days #15 05/04/23 tabs ondansetron 4 mg disintegrating 4 mg PO DAILY PRN nausea and 02/23/24 tablet vomiting 5 days #14 tabs acetone (urine) test (Ketone Urine #25 ea 03/28/24 Test strips) glucagon 3 mg/actuation nasal 3 mg intranasal BID PRN 03/28/24 spray (Baqsimi) unresponsive hypoglycemia 30 days #2 ea insulin aspart U-100 100 unit/mL 1 sliding scale dose subcut TID 30 03/28/24 (3 mL) subcutaneous pen (Novolog days #9 mL FlexPen U-100 Insulin aspart) insulin degludec 200 unit/mL (3 20 unit (0.1 mL) subcut DAILY 30 03/28/24 mL) subcutaneous pen (Tresiba days #6 mL FlexTouch U-200 insulin) albuterol sulfate 90 mcg/actuation 2 puff inhalation QID PRN 04/13/24 aerosol inhaler shortness of breath or wheezing #6.7 grams cyclobenzaprine 10 mg tablet 10 mg PO TID #10 tabs 05/07/24 gabapentin 100 mg capsule 100 mg PO TID #30 caps 05/07/24 Allergies Allergy/AdvReac Type Severity Reaction Status Date / Time diphenhydramine Allergy Anaphylaxis Verified 05/07/24 04:39 [From Benadryl] haloperidol [From Haldol] Allergy Difficulty Verified 05/07/24 04:39 Swallowing metoclopramide [From Reglan] AdvReac Anxiety Verified 05/07/24 04:39 Review of Systems Review of Systems: Yes all other systems are reviewed and are negative Neurologic: Denies Sensory deficit (Neuro) [facility] Past Medical History Medical History Dental infection Abdominal pain Colitis DKA (diabetic ketoacidosis) Hyperglycemia 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 type 1 Social History Social History Household Members: Other Household Members Other:: cousin Housing: House Do you presently have visiting nurse or other home services: No Alcohol intake: current Alcohol intake frequency: holidays/special occasions only Patient Tobacco Use Status: Current everyday Tobacco user Tobacco use type: Cigarette Cigarette Packs Per Day: 0 Cigarettes Per Day: 0 Years Smoked: 10 e-Cigarette/Vaping Use: Never Used Second Hand Smoke Exposure: No Substance Use Type: Marijuana Advance Directives: No Advance Directives Information Provided: Yes Do you have a plan to hurt others: No Plan service: No Current occupational status: employed 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 Physical Exam Vital Signs: Vital Signs: Last Vital Signs Temp 98.6 F 05/07/24 06:20 Pulse 84 05/07/24 06:20 Resp 17 05/07/24 06:20 BP 121/82 05/07/24 06:20 Pulse Ox 98 05/07/24 06:20 O2 Del Method Room Air 05/07/24 06:20 BMI result Body Mass Index 18.4 Const: Other: Male looking chronically ill unkept Nutritional Appearance: cachectic Orientation/consciousness: oriented to person and patient oriented x3 Limitations: no limitations HEENT: Head: Yes normal to inspection Ears: external ears normal General nose exam: Normal external nose present Mouth: Normal oral and palatal mucosa present and oropharynx normal Throat: Yes posterior oropharynx normal Eyes: General: appearance normal, both eyes and all related structures Neck: Other: supple Neck: Yes normal visual inspection Chest: Chest palpation & inspection: normal inspection of the chest Resp: Auscultation: clear to auscultation bilaterally Cardio: Jugular venous distension: no JVD Rate: regular rate Rhythm: regular rhythm Heart sounds: S1 normal heart sound present and S2 normal heart sound present GI: Inspection: Yes normal to inspection Palpation (GI): Soft to palpation, nontender and No hepatosplenomegaly present Auscultation: normal bowel sounds Back/Spine/Pelvis: Other: thoracic pain to palpation Skin: General skin exam: no rashes or lesions noted Neuro: General: oriented to person and patient oriented x3 Cranial nerves: Yes CN's II-XII intact bilaterally Motor exam (neuro): 5/5 motor strength present throughout Sensory Exam: No Sensory deficit (Neuro) Extrem: General: Yes normal to inspection Psych: Appearance: grossly normal Course Reevaluation(s) Reevaluation #1: xrays negative for fracture Time: 07:33 Medications Administered Discontinued Medications Generic Name Dose Route Start Last Admin Trade Name Freq PRN Reason Stop Dose Admin Cyclobenzaprine HCl 10 mg 05/07/24 04:37 05/07/24 04:44 Cyclobenzaprine Hcl 10 Mg Tablet PO 05/07/24 04:38 10 mg ONCE ONE Administration Insulin Human Lispro 4 unit 05/07/24 06:48 05/07/24 07:29 Insulin Lispro 100 Unit/Ml 3 Ml Vial SUBCUT 05/07/24 06:49 4 unit ONCE ONE Administration Ketorolac Tromethamine 60 mg 05/07/24 04:31 05/07/24 04:41 Ketorolac Tromethamine 60 Mg/2 Ml Vial IM 05/07/24 04:32 60 mg ONCE ONE Administration Medical Decision Making Differential Diagnosis Differential Diagnoses: The differential diagnosis associated with the presentation includes (Thoracic fracture, back spasms, chronic pain) Lab Data Labs: Lab Results 05/07/24 Range/Units 06:34 POC Glucose 240 H (60-115) mg/dL Independent Interpretation I performed an independent interpretation of an: Plain X-Ray (thoracic: no f racture lumbar: no fracture) External Record Review External record reviewed: Outpatient record Prescription Management I considered prescription management with: Pain Medication (will not give narcotics) Chronic Conditions Patient?s care impacted by: Diabetes Discharge Plan Discharge Clinical Impression: Lumbar radiculopathy, Thoracic back pain Patient Disposition: Home, Self-Care Instructions: Lumbar Radiculopathy (ED), Thoracic Pain (ED), Back Pain (ED) Prescriptions: New gabapentin 100 mg capsule 100 mg PO TID Qty: 30 0RF cyclobenzaprine 10 mg tablet 10 mg PO TID Qty: 10 0RF No Action pantoprazole [Protonix] 40 mg tablet,delayed release (DR/EC) 40 mg PO DAILY@0630 promethazine 25 mg tablet 25 mg PO TID PRN (Reason: nausea/vomiting) ketorolac 10 mg tablet 10 mg PO TID PRN (Reason: pain) 5 Days Qty: 15 0RF ondansetron 4 mg tablet,disintegrating 4 mg PO DAILY PRN (Reason: nausea and vomiting) 5 Days Qty: 14 0RF albuterol sulfate 90 mcg/actuation HFA aerosol inhaler 2 puff inhalation QID PRN (Reason: shortness of breath or wheezing) Qty: 6.7 0RF acetaminophen 500 mg tablet 500 mg PO Q6H PRN insulin aspart U-100 [Novolog FlexPen U-100 Insulin] 100 unit/mL (3 mL) insulin pen 1 sliding scale dose subcut TID 30 Days Qty: 9 3RF Rx Instructions: 1 sliding scale dose subcutaneously; 1 unit for every 35 points over 135, 1: 15 ratio (uses approx 20-25 units daily) (DME) Ketone Urine Test Strip See Rx Instructions .ROUTE .MEDSUPPLY Qty: 25 3RF Rx Instructions: As directed prn glucose over 250, nausea/vomiting tid Baqsimi 3 mg/actuation spray,non-aerosol 3 mg intranasal BID MDD 6mg PRN (Reason: unresponsive hypoglycemia) 30 Days Qty: 2 1RF Rx Instructions: P.R.N. for unresponsive hypoglycemia. Check to see if patient breathing and pulse, initiate CPR if needed. Call 911. Use when patient can not self treat low sugar. [place] once, position lying on the side, repeat again in 15 minutes. insulin degludec [Tresiba FlexTouch U-200] 200 unit/mL (3 mL) insulin pen 20 unit subcut DAILY 30 Days Qty: 6 6RF Referrals: [facility] [Primary Care Provider] - Print Language: Palestinian
[2024-05-07 06:20] VITALS: BP 121/82; PULSE 84; RESP 17; TEMP 37; O2SAT 98
[2024-05-07 06:38] LABS: Glucose, Whole Blood 240 mg/dL (60-115)
[2024-05-07] MEDS: Insulin Lispro 100 UNIT/ML 3 ML VIAL SUBCUT (07:29)
[2024-05-07 07:37] VITALS: BP 113/70; PULSE 98; RESP 17; O2SAT 100
[2024-05-07] MEDS: Gabapentin 100 MG CAPSULE PO (07:45)
[2024-05-07 08:12] VITALS: BP 113/70; PULSE 98; RESP 17; TEMP 36.6; O2SAT 100
== END 2024-05-07 08:13 | disposition home or self-care (01) ==
PROVIDERS: Emergency Provider Emergency Medicine
DX: M54.16 Radiculopathy, lumbar region (principal); M54.50 Low back pain, unspecified; M54.6 Pain in thoracic spine; Z79.899 Other long term (current) drug therapy
CPT/HCPCS: 72070; 72100; 82947; 96372; 99283; 99284; J1885

== ENCOUNTER 2024-05-07 10:34 | Outpatient (REF) | payer MEDICAID, SELFPAY | END 2024-05-07 10:35 | disposition home or self-care (01) | LOC: HO.HOSX 10:34 | DX: Z13.89 Encounter for screening for other disorder (principal) ==

== ENCOUNTER 2024-05-17 13:40 | Outpatient (REF) | payer MEDICAID, SELFPAY ==
--- NOTE | ~2024-05-17 | XR_ITS ---
EXAMINATION: XR WRIST, LEFT CLINICAL INFORMATION: M25.532 - Pain in left wrist COMPARISON: None available. TECHNIQUE: PA, lateral, and oblique views of the left wrist. FINDINGS: The bones and soft tissues are normal. No fracture. Alignment is anatomic with normal joint spaces. No erosions or abnormal soft tissue calcifications. XR/XR wrist LT w scaphoid IMPRESSION: Normal left wrist. Electronically signed by: Yohannes Emery MD 07/26/2024 03:25 PM [facility]
== END 2024-05-17 13:41 | disposition home or self-care (01) ==
LOC: HO.HOSX 13:40
PROVIDERS: PCP Nurse Practitioner Family
DX: M25.532 Pain in left wrist (principal); S52.615D Nondisplaced fracture of left ulna styloid process, subsequent encounter for closed fracture with routine healing; S52.502A Unspecified fracture of the lower end of left radius, initial encounter for closed fracture
CPT/HCPCS: 73110; 99212

== ENCOUNTER → 2024-05-17 13:44 | Outpatient (BNV) | payer MEDICAID, SELFPAY | PROVIDERS: PCP Nurse Practitioner Family; Visit Provider Radiology Diagnostic Radiology | DX: M25.532 Pain in left wrist (principal) | CPT/HCPCS: 73110 ==

== ENCOUNTER 2024-05-17 13:59 | Outpatient (AMB) | payer MEDICAID, SELFPAY ==
--- NOTE | 2024-05-17 14:00 | MHC.OFFVIS ---
Intake Visit Reasons: OV-LT radius fx, DOI 03/11/24 Intake Note: Bradford is a 29 year old right hand dominant male who presents today for follow up S/P fracture to the left radius and left ulnar styloid, DOI 03/11/2024. Patient reports the only issue he is having popping in the ulnar aspect of his left wrist if he moves it a certain way or rotates the wrist too fast. He expresses soreness if he over uses his left hand that runs down the middle of his wrist. He has been trying to do more with the left wrist such as working on ROM as often as he can continue improving. He is starting a new job and needs clearance for this. Allergies diphenhydramine [From Benadryl] Allergy (Verified 05/17/24 14:06) Anaphylaxis haloperidol [From Haldol] Allergy (Verified 05/17/24 14:06) Difficulty Swallowing metoclopramide [From Reglan] Adverse Reaction (Verified 05/17/24 14:06) Anxiety HPI HPI OV-LT radius fx, DOI 03/11/24: Details: Patient is a 29-year-old male who presents for follow-up evaluation of left distal radius and ulna styloid fractures, date of injury 03/11/2024. Today, the patient reports he is feeling very well, and experiences almost no pain or discomfort at baseline. The patient reports that if a significant amount of pressure is applied to his wrist, he experiences discomfort, and he also occasionally has a ?bubble popping? sensation on the ulnar aspect of his wrist. Patient reports that the range of motion of both his hand and wrist is full. Patient denies any numbness or tingling in the left upper extremity. Patient has no other acute complaints or concerns at this time. [facility] Medical History Dental infection Abdominal pain Colitis DKA (diabetic ketoacidosis) Hyperglycemia 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 type 1 Social History Household Members: Other Household Members Other:: cousin Housing: House Do you presently have visiting nurse or other home services: No Alcohol intake: current Alcohol intake frequency: holidays/special occasions only Patient Tobacco Use Status: Current everyday Tobacco user Tobacco use type: Cigarette Cigarette Packs Per Day: 0 Cigarettes Per Day: 0 Years Smoked: 10 e-Cigarette/Vaping Use: Never Used Second Hand Smoke Exposure: No Substance Use Type: Marijuana service: No Current occupational status: employed 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 Neuro: Normal sensation to the tips of all digits today in clinic Vascular: Cap refill brisk ROM: With encouragement he can make a fist and extend all his digits 90 degrees of wrist pronation 90 degrees of wrist supination Not tender over the fracture site. DRUJ stable All the swelling has resolved. Results Reviewed Results Reviewed: X-rays obtained in the office today and independently reviewed by me, Deo Beasley PA-C, demonstrate nondisplaced fractures of the left ulnar styloid and distal radius with evidence of interval bony healing. Assessment & Plan Assessment & Plan (1) Nondisplaced fracture of styloid process of left ulna: Code(s): S52.615A - Nondisplaced fracture of left ulna styloid process, initial encounter for closed fracture Category: Medical Qualifiers: Encounter type: subsequent encounter Fracture healing: with routine healing Fracture type: closed Qualified Code(s): S52.615D - Nondisplaced fracture of left ulna styloid process, subsequent encounter for closed fracture with routine healing (2) Fracture of left distal radius: Code(s): S52.502A - Unspecified fracture of the lower end of left radius, initial encounter for closed fracture Category: Medical Plan 1. Left distal radius fracture, nondisplaced 2. 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
== END 2024-05-17 14:22 | disposition home or self-care (01) ==
PROVIDERS: PCP Nurse Practitioner Family
DX: S52.615D Nondisplaced fracture of left ulna styloid process, subsequent encounter for closed fracture with routine healing (principal); S52.502A Unspecified fracture of the lower end of left radius, initial encounter for closed fracture
CPT/HCPCS: 99024

== ENCOUNTER 2024-05-23 15:45 | Outpatient (AMB) | payer MEDICAID, SELFPAY ==
--- NOTE | 2024-05-23 15:53 | A.OFFVIS_ITS ---
Vital Signs 05/23/24 15:56 Height 6 ft Weight 136 lb 10.986 oz BMI 18.5 BP 114/70 Blood Pressure Location Rt brachial Position Sitting Pulse 105 H Pulse Source Pulse Oximeter Intake Visit Reasons: T1DM/LVM Intake Note: Patient presents today for a follow-up on Type 1 Diabetes Mellitus: Last Diabetic eye exam was on: DUE Last Podiatry exam was on: Does not see a Superintendent Communications Most recent HbA1c: 8.8%, 05/23/2024 Random Glucose- 168 mg/dL, Today Wireless Sales Expert Required: No Accompanied by: Self / Same As Patient Allergies diphenhydramine [From Benadryl] Allergy (Verified 05/17/24 14:06) Anaphylaxis haloperidol [From Haldol] Allergy (Verified 05/17/24 14:06) Difficulty Swallowing metoclopramide [From Reglan] Adverse Reaction (Verified 05/17/24 14:06) Anxiety HPI Comments Details: The patient is a 29 year old male with type 1 diabetes diagnosed at age 12. He is seen in f/u today. His intial consult was on 03/28/24 at which time he expressed an interest in going on an insulin pump. Basal insulin was changed to Tresiba at this visit due to low sugars and labile readings. He has a history of gastroparesis and Gates's esophagitis. He previously was followed by a GI specialist in [place] and has an initial appointments with GI at [facility] to establish care. Current diabetes regime tresiba 20 units NovoLog t.i.d. with meals 1 unit for every 35 over 135 in 0 1-15 carbohydrate ratio. Dexcom average glucose: 182 14 day continuous glucose monitor report reviewed Glucose Managment indicator 7.7 % Days with CGM data 99.4 % TIme in ranges: Twenty-two % very high (above 250) 22 % high ?(181-250) 50 % in range ?(70-180] 3 % low (69-55) 3 % ?very low (below 54) Coefficient of variation 45.5% desired less than 36% Interpretation [ occasional lows at 03:00 in 21:00 I overall running 30 points higher than target with significant variability readings] He carries a source of sugar with him at all times in his familiar with ketone testing. He lives with his cousin who is 63 who also has health issues. Has eyes checked yearly, he is due [Denies] neuropathy [Denies] nephropathy [Denies] history of CAD. [Had] diabetes education in the past Diet/Carb counting:would like to see nutrition Weight: [stable] [+] prior episodes of DKA. [Denies] prior severe episodes of hypoglycemia requiring help or hospitalization. [facility] Medical History Dental infection Abdominal pain Colitis DKA (diabetic ketoacidosis) Hyperglycemia 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 type 1 Social History Household Members: Other Household Members Other:: cousin Housing: House Do you presently have visiting nurse or other home services: No Alcohol intake: current Alcohol intake frequency: holidays/special occasions only Patient Tobacco Use Status: Current everyday Tobacco user Tobacco use type: Cigarette Cigarette Packs Per Day: 0 Cigarettes Per Day: 0 Years Smoked: 10 e-Cigarette/Vaping Use: Never Used Second Hand Smoke Exposure: No Substance Use Type: Marijuana service: No Current occupational status: employed 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 Absence of acromegalic features. Neck exam reveals nl size thyroid about 15 gms. No thyroid nodules palpable. Heart S1 S2, Reg R/R. No M/R G. Skin exam reveals absence of vitiligo or acanthosis nigricans. . Results AMB Hemoglobin A1c AMB Hemoglobin A1c 8.8 % Last Edit by VETO Whitehead on 05/23/24 16:19 Results Reviewed Results Reviewed: Laboratory Last Values Glucose (Clinic) 168 mg/dL (60-115) H 05/23/24 15:59 Hgb A1c (Clinic) 8.8 % (4.0-6.0) H 05/23/24 16:18 Assessment & Plan Assessment & Plan (1) Diabetes mellitus type 1: Code(s): E10.9 - Type 1 diabetes mellitus without complications Category: Medical Plan: 21-year-old type 1 diabetic with a history of gastroparesis we will work towards getting patient on an insulin pump. He is an excellent candidate. Orders: Orders AMB Hemoglobin A1c 05/23/24 E10.9 - Type 1 diabetes mellitus without complications Patient Instructions: The patient was counseled to achieve a target A1C of 7% (154 avg). Fasting blood sugars should be 90-130 in the morning and less than 180 two hours after meals. Reviewed the relationship between poor diabetic control and the development of complications. The patient was counseled to always carry a source of sugar and on the rule of 15's: Take 3 glucose tablets and repeat again in 15 minutes if blood sugar is not in normal range. Continue to repeat every 15 minutes until blood sugar is normal. Symptoms of DKA (diabetic ketoacidosis): early: frequent urination, dry mouth, fatigue, feeling ill, severe symptoms: ketones in the urine, abdominal pain, nausea, vomiting and weakness. It is important to hydrate with sugar free liquids every 15-30 minutes and bring the sugars down to normal levels. If you are moderate or severe with ketones or unable to bring glucose to less than 200, go to the emergency room. Coding Level of Care Code Est Pt Level 4 (83828) Complex EM visit Add On G2211 Diagnoses Diabetes mellitus type 1 E10.9 Time Spent (min) 45 Comment Time spent reviewing labs/provider notes, face to face, chart doc
[2024-05-23 15:56] VITALS: BP 114/70; PULSE 105; BMI 18.5
[2024-05-23 16:03] LABS: Glucose, Whole Blood 168 mg/dL (60-115)
== END 2024-05-23 16:28 | disposition home or self-care (01) ==
PROVIDERS: Visit Provider Nurse Practitioner Adult Health
DX: E10.9 Type 1 diabetes mellitus without complications (principal)
CPT/HCPCS: 99214

== ENCOUNTER → 2024-05-23 15:45 | Outpatient (BNVA) | payer MEDICAID, SELFPAY | PROVIDERS: Visit Provider Nurse Practitioner Adult Health | DX: E10.9 Type 1 diabetes mellitus without complications (principal); Z79.4 Long term (current) use of insulin | CPT/HCPCS: 82947; 83036; 99212 ==

== ENCOUNTER 2024-06-18 16:09 | Outpatient (AMB) | payer MEDICAID, SELFPAY ==
--- NOTE | 2024-06-18 16:21 | A.OFFVIS_ITS ---
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 Accompanied by: Self / Same As Patient Allergies diphenhydramine [From Benadryl] Allergy (Verified 05/17/24 14:06) Anaphylaxis haloperidol [From Haldol] Allergy (Verified 05/17/24 14:06) Difficulty Swallowing metoclopramide [From Reglan] Adverse Reaction (Verified 05/17/24 14:06) Anxiety HPI Comprehensive Diabetes Asmnt Most Recent Diabetes Results: No Data to Display [facility] Medical History Dental infection Abdominal pain Colitis DKA (diabetic ketoacidosis) Hyperglycemia 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 type 1 Social History Household Members: Other Household Members Other:: cousin Housing: House Do you presently have visiting nurse or other home services: No Alcohol intake: current Alcohol intake frequency: holidays/special occasions only Patient Tobacco Use Status: Current everyday Tobacco user Tobacco use type: Cigarette Cigarette Packs Per Day: 0 Cigarettes Per Day: 0 Years Smoked: 10 e-Cigarette/Vaping Use: Never Used Second Hand Smoke Exposure: No Substance Use Type: Marijuana service: No Current occupational status: employed 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 checks BG Dexcom G7 Downloaded meter today:yes Patient? reports glycemic control as: poor Most recent Hgb A1C: 8.8% Frequency of low B-5 times a week Low BG treatment: Sour patch kids Frequency of high BG: daily Does patient check Ketones? 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 no Reviewed insulin pump basics today with Patient. Explained pros and cons of insulin pumps. Showed pt various pumps, infusion sets, and cgms currently available. Reviewed need to wear pump 24/7 and need to change infusion set every 3 days. Also stressed importance of frequent BG checks, 4x daily minimum or use pump that is integrated with CGM.? TDD:38 Patient demonstrated motivation for continued insulin pump education and understands the need to complete education prior to starting insulin pump for best outcome. Pt is interested in the iLet. Reviewed with patient ketone action plan, and iLet patient's success work sheet. Both handouts given at today's visit, instructions when went to test for ketones reviewed Portions of this note were created using voice recognition software, please excuse any words or phrases that may have been misinterpreted. Patient Instructions: DIABETES PROBLEMS HOMECARE INSTRUCTIONS? for High Blood Sugar and When to Test for Ketones Hyperglycemia is the technical term for high blood glucose (blood sugar). High blood sugar happens when the body has too little insulin or when the body can't use insulin properly. What causes hyperglycemia? A number of things can cause hyperglycemia: * If you have type 1, you may not have given yourself enough insulin. ? If you have type 2, your body may have enough insulin, but it is not as effective as it should be. * You ate more than planned or exercised less than planned. * You have stress from an illness, such as a cold or flu. * You have other stress, such as family conflicts or school or dating problems. How to lower your blood sugar level. ? Take medications as directed by physician. ? Drink extra water or noncaffeinated, nonsugared drinks to prevented hydration. ? Exercise if you are not sick However, if your blood sugar is above 250 mg/dl, check your urine for ketones. If you have ketones, do not exercise Exercising when ketones are present may make your blood sugar level go even higher. You'll need to work with your doctor to find the safest way for you to lower your blood sugar level. Regularly check blood sugar or urine for sugar and acetone during illness. Diabetic ketoacidosis (DKA) Is serious condition that can lead to diabetic coma (passing out for a long time) or even . When your cells don't get the glucose they need for energy, your body begins to burn fat for energy, which produces ketones. Ketones are chemicals that the body creates when it breaks down fat to use for energy. The body does this when it doesn?t have enough insulin to use glucose, the body?s normal source of energy. When ketones build up in the blood, they make it more acidic. They are a warning sign that your diabetes is out of control or that you are getting sick. Symptoms of Diabetic Ketoacidosis (DKA) ? DKA usually develops slowly. But when vomiting occurs, this life- threatening condition can develop in a few hours. Early symptoms include the following: ? Thirst or a very dry mouth ? Frequent urination ? High blood glucose (blood sugar) levels ? High levels of ketones in the urine ? Then, other symptoms appear: ? Constantly feeling tired ? Dry or flushed skin ? Nausea, vomiting, or abdominal pain ? (Vomiting can be caused by many illnesses, not just ketoacidosis. If vomiting continues for more than 2 hours, contact your health care provider.) ? Difficulty breathing ? Fruity odor on breath ? A hard time paying attention, or confusion When should you test for ketones? It is advisable to check for ketones under the following conditions when: Your blood glucose is higher than 250mg/dl. Feeling nauseated, throwing up, or have pains in your abdominal region. Have a cold or flu. Have general body fatigue. Feel thirsty or have a very dry mouth. Have flushed skin. Have a fruity breath or a hard time breathing. You feel perplexed or in fog. How to Test Urine for Ketones You can detect ketones with a simple urine test using a test strip, similar to a blood testing strip. Ask your health care provider when and how you should test for ketones. Many experts advise to check your urine for ketones when your blood glucose is more than 250 mg/dl. When you are ill (when you have a cold or the flu, for example), check for ketones every 4 to 6 hours. And check every 4 to 6 hours when your blood sugar is more than 250 mg/dl. Also, check for ketones when you have any symptoms of DKA. How to lower your blood sugar level. ? Take medications as directed by physician. ? Drink extra water or noncaffeinated, nonsugared drinks to prevented hydration. ? Exercise if you are not sick However, if your blood sugar is above 250 mg/dl, check your urine for ketones. If you have ketones, do not exercise Exercising when ketones are present may make your blood sugar level go even higher. You'll need to work with your doctor to find the safest way for you to lower your blood sugar level. Regularly check blood sugar or urine for sugar and acetone during illness Coding Level of Care Code Est Pt Level 1 (90359) Diagnoses Diabetes mellitus type 1 E10.9
== END 2024-06-18 16:48 | disposition home or self-care (01) ==
LOC: HO.ENCR 16:10
PROVIDERS: Visit Provider Registered Nurse Diabetes Educator
DX: E10.9 Type 1 diabetes mellitus without complications (principal)

== ENCOUNTER → 2024-06-18 16:09 | Outpatient (BNVA) | payer MEDICAID, SELFPAY | PROVIDERS: Visit Provider Registered Nurse Diabetes Educator | DX: E10.9 Type 1 diabetes mellitus without complications (principal) | CPT/HCPCS: 99211 ==

== ENCOUNTER 2024-07-01 12:01 | Emergency (ER) | payer MEDICAID, SELFPAY ==
[2024-07-01 12:26] VITALS: BP 123/77; PULSE 86; RESP 20; TEMP 37.2; O2SAT 100; BMI 18.3
--- NOTE | 2024-07-01 12:27 | ED_ITS ---
HPI - General Adult General Chief complaint: Abdominal Pain Stated complaint: Abd pain, sent from urgent care Source: patient Mode of arrival: ambulatory Limitations: no limitations History of Present Illness ED Provider: Nieves Ramos PA-C HPI narrative: Patient is a 29 year old assigned male at with a history of DM, callahan esophagus, and gastroparesis presenting to the emergency department today with epigastric and back pain. Patient states that over the last 3 days he has had epigastric and back pain that is not improving. Patient denies any dizziness, lightheadedness, nausea, vomiting, fever, chills, blurry vision, double vision, loss of vision, chest pain, difficulty breathing, shortness of breath, night sweats, pain with urination, increased urinary frequency, increased urinary urgency, blood in his urine or stool, syncope or a near syncopal episode, recent trauma or falls, bowel incontinence, bladder incontinence, or any other complaints at this time. Onset (ago): day(s) (3) Location: back and abdomen Relieving factors: none Exacerbating factors: none Treatments prior to arrival: none Related Data Home Medications ?Medication ?Instructions ?Recorded ?Confirmed pantoprazole 40 mg tablet,delayed 40 mg PO DAILY@0630 12/19/22 06/01/23 release (Protonix) promethazine 25 mg tablet 25 mg PO TID PRN nausea/vomiting 01/23/23 06/01/23 acetaminophen 500 mg tablet 500 mg PO Q6H PRN 04/09/24 Previous Rx's ?Medication ?Instructions ?Recorded ketorolac 10 mg tablet 10 mg PO TID PRN pain 5 days #15 05/04/23 tabs ondansetron 4 mg disintegrating 4 mg PO DAILY PRN nausea and 02/23/24 tablet vomiting 5 days #14 tabs glucagon 3 mg/actuation nasal 3 mg intranasal BID PRN 03/28/24 spray (Baqsimi) unresponsive hypoglycemia 30 days #2 ea insulin aspart U-100 100 unit/mL 1 sliding scale dose subcut TID 30 03/28/24 (3 mL) subcutaneous pen (Novolog days #9 mL FlexPen U-100 Insulin aspart) insulin degludec 200 unit/mL (3 20 unit (0.1 mL) subcut DAILY 30 03/28/24 mL) subcutaneous pen (Tresiba days #6 mL FlexTouch U-200 insulin) albuterol sulfate 90 mcg/actuation 2 puff inhalation QID PRN 04/13/24 aerosol inhaler shortness of breath or wheezing #6.7 grams cyclobenzaprine 10 mg tablet 10 mg PO TID #10 tabs 05/07/24 gabapentin 100 mg capsule 100 mg PO TID #30 caps 05/07/24 acetone (urine) test (Ketone Urine #25 ea 06/19/24 Test strips) blood-glucose meter,continuous #1 ea 06/19/24 (Dexcom G7 Passenger Car Cleaning Supervisor) blood-glucose sensor (Dexcom G7 #6 ea 06/19/24 Sensor device) glucagon 3 mg/actuation nasal 3 mg intranasal ONCE PRN 06/19/24 spray (Baqsimi) unresponsive hypoglycemia 30 days #2 ea Allergies Allergy/AdvReac Type Severity Reaction Status Date / Time diphenhydramine Allergy Anaphylaxis Verified 07/01/24 12:27 [From Benadryl] haloperidol [From Haldol] Allergy Difficulty Verified 07/01/24 12:27 Swallowing metoclopramide [From Reglan] AdvReac Anxiety Verified 07/01/24 12:27 Review of Systems 2 Constitutional: Constitutional: Reports no additional constitutional complaints, Denies chills, Denies fever(s) and Denies night sweats Eyes: Eyes: Reports no additional eye complaints, Denies blurry vision, Denies change in vision, Denies diplopia, Denies eye discharge, Denies loss of vision and Denies eye pain ENT: Denies dizziness Cardiovascular: Cardiovascular: Reports no additional cardiovascular complaints, Denies chest pain, Denies lightheadedness, Denies Loss of Consciousness and Denies dyspnea Respiratory: Respiratory: Reports no additional respiratory complaints and Denies dyspnea Gastrointestinal: Gastrointestinal: Reports no additional gastrointestinal complaints, Reports abdominal pain, Denies melena, Denies hematochezia, Denies change in bowel habits and Denies change in stool character Genitourinary: Genitourinary: Reports no additional male genitourinary complaints, Denies hematuria, Denies oliguria, Denies difficulty urinating, Denies dysuria, Denies urinary frequency, Denies urinary hesitancy, Denies urinary incontinence and Denies urinary urgency Musculoskeletal: Musculoskeletal: Reports no additional musculoskeletal complaints, Reports back pain, Denies numbness and Denies tingling Neurologic: Denies dizziness, Denies loss of vision, Denies numbness and Denies tingling Psychiatric: Psychiatric: Reports no additional psychiatric complaints Endocrine: Endocrine: Reports no additional endocrine complaints Hematologic/Lymphatic: Hematologic/Lymphatic: Reports no additional hematologic/lymphatic complaints Allergic/Immunologic: Allergic/Immunologic: Reports no additional allergic/immunologic complaints [facility] Past Medical History Attestation statement: The following information was validated with the patient. Source: old records reviewed and nursing notes reviewed Medical History Dental infection Abdominal pain Colitis DKA (diabetic ketoacidosis) Hyperglycemia Left against medical advice Callahan esophagus Diabetes mellitus type 1 Social History Social History Household Members: Other Household Members Other:: cousin Housing: House Do you presently have visiting nurse or other home services: No Alcohol intake: current Alcohol intake frequency: holidays/special occasions only Patient Tobacco Use Status: Current everyday Tobacco user Tobacco use type: Cigarette Cigarette Packs Per Day: 0 Cigarettes Per Day: 0 Years Smoked: 10 e-Cigarette/Vaping Use: Never Used Second Hand Smoke Exposure: No Substance Use Type: Marijuana service: No Current occupational status: employed 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 Physical Exam ED Vital Signs: BMI result Body Mass Index 18.3 Const General: cooperative, no acute distress, alert and awake Nutritional Appearance: well nourished Orientation/consciousness: patient oriented x3 Limitations: no limitations HENMT Head: Yes normal to inspection and Yes atraumatic Ears: hearing grossly normal bilaterally and external ears normal General nose exam: Normal external nose present, no nasal discharge noted and no epistaxis Face and sinus: Yes normal facial exam, No abrasion and No laceration Mouth: Normal oral and palatal mucosa present, no drooling and no muffled voice Eyes General: appearance normal, both eyes and all related structures Periorbital: periorbital findings normal Eyelids: Yes eyelids normal Conjunctivae: conjunctivae normal Pupils: Equal, round and reactive pupils present EOM: EOMs intact bilaterally Neck Neck: Yes normal visual inspection, Yes full ROM and Yes no lymphadenopathy Chest Chest palpation & inspection: normal inspection of the chest Resp Effort & Inspection: normal respiratory effort and able to speak in complete sentences GI Inspection: Yes normal to inspection Neuro General: patient oriented x3 and moves all extremities Cranial nerves: Yes Equal, round and reactive pupils present Cognition (Neuro): normal cognition Extrem General: Yes normal to inspection, Yes full ROM and Yes capillary refill normal Psych Appearance: grossly normal Mental Status: mental status grossly normal Affect: normal affect Attitude: cooperative Thought process: Normal thought process present Thought content: Normal thought content present Insight: Good insight present (Psych) Course Course Course Narrative: RME performed by Nieves Aguilar PA-C. Patient is a 29 year old assigned male at presenting to the emergency department with abdominal pain, nausea, and vomiting. Detailed physical exam and review of systems are deferred to the tamale machine feeder. Labs ordered. Patient placed back in the waiting room pending room availability and results. Medical Decision Making Medical Decision Making [facility] Narrative: Patient is a 29 year old assigned male at with a history of DM, callahan esophagus, and gastroparesis presenting to the emergency department today with epigastric and back pain. Patient's limited physical exam performed in triage was unremarkable. Patient's blood work was unremarkable. Patient left the department without completing treatment. Patient left the department before myself or any of the other emergency department clinicians could explain to or review with the patient; physical exam findings, test results, need or lack there of for additional testing, need or lack there of for a procedure to be performed, need or lack there of for hospital admission / transfer, need or lack there of for prescription medication, treatment options, or a treatment plan. Differential Diagnosis Differential Diagnoses: The differential diagnosis associated with the presentation includes Epigastric pain Gastroporesis Admission/Observation Consideration of admission/observation: Escalation of care including admission/observation considered Patient would have been admitted to the hospital had he completed his work up and it had any findings where hospital admission was appropriate, his clinical presentation warranted hospital admission, had myself or any other emergency department store general manager had the ability to discuss need or lack there of for hospital admission, and the patient hadn't left the department without completing treatment. Lab Data [facility] Lab Attestation statement: I reviewed the patient's lab results. My interpretation of these results are in the MDM Rationale portion of this note. 07/01/24 12:49 07/01/24 12:49 Labs: Lab Results 07/01/24 Range/Units 12:49 WBC 8.0 (4.8-10.8) X10*3/uL RBC 5.43 (4.60-5.80) X10*6/uL Hgb 14.2 (14.0-18.0) g/dl Hct 43.1 (42.0-52.0) % MCV 79.4 L (80.0-98.0) fL MCH 26.2 L (27.0-33.0) pg MCHC 32.9 (31.0-36.0) g/dl RDW 14.3 (11.0-16.0) % Plt Count 301 D (160-400) X10*3/uL MPV 9.2 L (9.4-12.4) fL Immature Gran % (Auto) 0.4 (0.0-0.4) % Neut % (Auto) 67.0 (45-73) % Lymph % (Auto) 25.9 (20-40) % [place] % (Auto) 5.0 (2-11) % Eos % (Auto) 1.1 (0-4) % Baso % (Auto) 0.6 (0-2) % Lymph # (Auto) 2.1 (1.2-4.9) X10*3/uL [place] # (Auto) 0.4 (0.1-1.2) X10*3/uL Eos # (Auto) 0.1 (0.0-0.4) X10*3/uL Baso # (Auto) 0.1 (0.0-0.2) X10*3/uL Abs Immat Gran (auto) 0.03 (0.00-0.03) X10*3/uL Absolute Neuts (auto) 5.4 (2.0-8.3) x10*3/uL Absolute Nucleated RBC 0.000 (0.0-0.012) X10*3/uL Nucleated RBC % (auto) 0.0 (0.0-0.2) /100WBC Sodium 138 (135-145) mmol/L Potassium 4.2 (3.3-5.1) mmol/L Chloride 103 (96-108) mmol/L Carbon Dioxide 22 (22-29) mmol/L Anion Gap 17 (12-20) BUN 19 H (9-16) mg/dL Creatinine 0.81 (0.5-1.4) mg/dL Estim Creat Clear Calc 117.7 Estimated GFR > 60 Random Glucose 207 H (60-115) mg/dL Calcium 10.4 H D (8.4-10.2) mg/dL Magnesium 2.0 (1.6-2.6) mg/dL Total Bilirubin 0.5 (0.0-1.0) mg/dL AST 39 H (5-37) U/L ALT 115 H (0-40) U/L Alkaline Phosphatase 112 (39-117) U/L Total Protein 8.3 H (6.5-8.0) g/dL Albumin 4.7 (3.5-5.0) g/dL Lipase 5 L (8-78) U/L Influenza Type A (PCR) NEGATIVE (Negative) Influenza Type B (PCR) NEGATIVE (Negative) RSV RNA Qual (PCR) NEGATIVE (Negative) SARS-CoV-2 RNA (RT-PCR) NEGATIVE (Negative) Discharge Plan Discharge Clinical Impression: Acute epigastric pain Patient Disposition: Left W/O Completing Treatment Prescriptions: No Action (DME) Dexcom G7 Sensor Device See Rx Instructions .ROUTE .MEDSUPPLY Qty: 6 6RF Rx Instructions: As directed every 10 days (DME) Dexcom G7 Passenger Car Cleaning Supervisor Misc See Rx Instructions .ROUTE .MEDSUPPLY Qty: 1 1RF Rx Instructions: As directed (DME) Ketone Urine Test Strip See Rx Instructions .ROUTE .MEDSUPPLY Qty: 25 3RF Rx Instructions: As directed prn glucose over 250, nausea/vomiting tid Baqsimi 3 mg/actuation spray,non-aerosol 3 mg intranasal ONCE MDD 6mg may repeat in 15 minutes PRN (Reason: unresponsive hypoglycemia) 30 Days Qty: 2 1RF pantoprazole [Protonix] 40 mg tablet,delayed release (DR/EC) 40 mg PO DAILY@0630 promethazine 25 mg tablet 25 mg PO TID PRN (Reason: nausea/vomiting) ketorolac 10 mg tablet 10 mg PO TID PRN (Reason: pain) 5 Days Qty: 15 0RF ondansetron 4 mg tablet,disintegrating 4 mg PO DAILY PRN (Reason: nausea and vomiting) 5 Days Qty: 14 0RF albuterol sulfate 90 mcg/actuation HFA aerosol inhaler 2 puff inhalation QID PRN (Reason: shortness of breath or wheezing) Qty: 6.7 0RF gabapentin 100 mg capsule 100 mg PO TID Qty: 30 0RF cyclobenzaprine 10 mg tablet 10 mg PO TID Qty: 10 0RF acetaminophen 500 mg tablet 500 mg PO Q6H PRN insulin aspart U-100 [Novolog FlexPen U-100 Insulin] 100 unit/mL (3 mL) insulin pen 1 sliding scale dose subcut TID 30 Days Qty: 9 3RF Rx Instructions: 1 sliding scale dose subcutaneously; 1 unit for every 35 points over 135, 1:15 ratio (uses approx 20-25 units daily) Baqsimi 3 mg/actuation spray,non-aerosol 3 mg intranasal BID MDD 6mg PRN (Reason: unresponsive hypoglycemia) 30 Days Qty: 2 1RF Rx Instructions: P.R.N. for unresponsive hypoglycemia. Check to see if patient breathing and pulse, initiate CPR if needed. Call 911. Use when patient can not self treat low sugar. [place] once, position lying on the side, repeat again in 15 minutes. insulin degludec [Tresiba FlexTouch U-200] 200 unit/mL (3 mL) insulin pen 20 unit subcut DAILY 30 Days Qty: 6 6RF Discharge Date/Time: 07/01/24 20:46
[2024-07-01 12:52] LABS: MANUAL DIFF FLAG NO
[2024-07-01 12:55] LABS: Basophils Absolute Auto 0.1 X10*3/uL (0.0-0.2); Basophils Percent Auto 0.6 % (0-2); Eosinophils Absolute Auto 0.1 X10*3/uL (0.0-0.4); Eosinophils Percent Auto 1.1 % (0-4); Hematocrit 43.1 % (42.0-52.0); Hemoglobin 14.2 g/dl (14.0-18.0); Imm Gran Abs Auto 0.03 X10*3/uL (0.00-0.03); Imm Gran Pct Auto 0.4 % (0.0-0.4); Lymphocytes Absolute Auto 2.1 X10*3/uL (1.2-4.9); Lymphocytes Percent Auto 25.9 % (20-40); Mean Corpuscular HGB Conc 32.9 g/dl (31.0-36.0); Mean Corpuscular Hemoglobin 26.2 pg (27.0-33.0); Mean Corpuscular Volume 79.4 fL (80.0-98.0); Mean Platelet Volume 9.2 fL (9.4-12.4); Monocytes Absolute Auto 0.4 X10*3/uL (0.1-1.2); Neutrophils Absolute Auto 5.4 x10*3/uL (2.0-8.3); Platelet Count 301 X10*3/uL (160-400); Red Blood Count 5.43 X10*6/uL (4.60-5.80); Red Cell Distribution Width 14.3 % (11.0-16.0)
[2024-07-01 13:12] LABS: Alanine Aminotransferase 115 U/L (0-40); Albumin Level 4.7 g/dL (3.5-5.0); Alkaline Phosphatase 112 U/L (39-117); Anion Gap 17 (12-20); Aspartate Amino Transferase 39 U/L (5-37); Bilirubin Total 0.5 mg/dL (0.0-1.0); Blood Urea Nitrogen 19 mg/dL (9-16); Calcium 10.4 mg/dL (8.4-10.2); Carbon Dioxide 22 mmol/L (22-29); Chloride 103 mmol/L (96-108); Creatinine Clr Calc Pharmacy 117.7; Estimated Glomerular Filt Rate > 60; Glucose Random 207 mg/dL (60-115); Lipase 5 U/L (8-78); Potassium 4.2 mmol/L (3.3-5.1); Sodium 138 mmol/L (135-145); Total Protein 8.3 g/dL (6.5-8.0)
[2024-07-01 13:31] LABS: Influenza A PCR NEGATIVE (Negative); Influenza B PCR NEGATIVE (Negative); Resp Syncy Virus RNA Qual PCR NEGATIVE (Negative); SARS COV2 PCR INHOUSE NEGATIVE (Negative)
== END 2024-07-01 20:46 | disposition left against medical advice (07) ==
PROVIDERS: Physician Assistant Medical; Emergency Provider Emergency Medicine
DX: R10.13 Epigastric pain (principal); M54.50 Low back pain, unspecified; Z03.818 Encounter for observation for suspected exposure to other biological agents ruled out; Z79.899 Other long term (current) drug therapy; F17.210 Nicotine dependence, cigarettes, uncomplicated
CPT/HCPCS: 0241U; 80053; 83690; 83735; 85025; 99281; 99283

== ENCOUNTER 2024-07-16 10:44 | Emergency (ER) | payer MEDICAID, SELFPAY ==
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
[2024-07-16 10:58] VITALS: BP 116/79; PULSE 91; RESP 18; TEMP 37; O2SAT 100; BMI 17.9
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
== END 2024-07-16 13:16 | disposition left against medical advice (07) ==
PROVIDERS: Emergency Provider Emergency Medicine; PCP Internal Medicine Geriatric Medicine
DX: R51.9 Headache, unspecified (principal); M54.2 Cervicalgia; Z79.899 Other long term (current) drug therapy; F17.210 Nicotine dependence, cigarettes, uncomplicated
CPT/HCPCS: 70450; 70486; 72125; 99281; 99284

== ENCOUNTER 2024-07-31 11:04 | Emergency (ER) | payer MEDICAID, SELFPAY ==
--- NOTE | ~2024-07-31 | US_ITS ---
EXAMINATION: US SCROTUM CLINICAL INFORMATION: Pain. COMPARISON: 03/13/2023 TECHNIQUE: A sonogram of the scrotum was performed assessing acosta-scale appearance and color Doppler flow. Spectral Doppler analysis of the arterial and venous flow were performed in the testes bilaterally. FINDINGS: RIGHT: Right testicle measures 4.8 x 2.0 x 2.7 cm, volume 13.4 mL. No focal testicular parenchymal lesions are visualized. Spectral Doppler analysis of the arterial and venous flow is normal in the right testis. Right epididymal head is normal in size. No right hydrocele or varicocele is seen. Right epididymal Doppler flow is normal. LEFT: Left testicle measures 5.0 x 1.8 x 3.0 cm, volume 13.9 mL. No focal testicular parenchymal lesions are visualized. Spectral Doppler analysis of the arterial and venous flow is normal in the left testis. Left epididymal head is edematous. There edema and increased vascularity in the body of the epididymus. No left hydrocele or varicocele is seen. Left epididymal Doppler flow is normal. US/US scrotum IMPRESSION: 1. Edema and increased vascularity in the body of the left epididymus consistent with epididymitis. 2. Bilateral testicles are normal. Electronically signed by: Jose Ramon Herzog MD 07/31/2024 02:34 PM EST
--- NOTE | ~2024-07-31 | US_ITS ---
EXAMINATION: US SCROTUM CLINICAL INFORMATION: Pain. COMPARISON: 03/13/2023 TECHNIQUE: A sonogram of the scrotum was performed assessing acosta-scale appearance and color Doppler flow. Spectral Doppler analysis of the arterial and venous flow were performed in the testes bilaterally. FINDINGS: RIGHT: Right testicle measures 4.8 x 2.0 x 2.7 cm, volume 13.4 mL. No focal testicular parenchymal lesions are visualized. Spectral Doppler analysis of the arterial and venous flow is normal in the right testis. Right epididymal head is normal in size. No right hydrocele or varicocele is seen. Right epididymal Doppler flow is normal. LEFT: Left testicle measures 5.0 x 1.8 x 3.0 cm, volume 13.9 mL. No focal testicular parenchymal lesions are visualized. Spectral Doppler analysis of the arterial and venous flow is normal in the left testis. Left epididymal head is edematous. There edema and increased vascularity in the body of the epididymus. No left hydrocele or varicocele is seen. Left epididymal Doppler flow is normal. US/US scrotum doppler IMPRESSION: 1. Edema and increased vascularity in the body of the left epididymus consistent with epididymitis. 2. Bilateral testicles are normal. Electronically signed by: Jose Ramon Herzog MD 07/31/2024 02:34 PM EST
[2024-07-31 11:09] VITALS: BP 124/78; PULSE 95; O2SAT 99
[2024-07-31 11:10] VITALS: BP 115/79; PULSE 84; RESP 18; TEMP 36.6; O2SAT 100; BMI 18.2
--- NOTE | 2024-07-31 11:18 | ED_ITS ---
HPI - General Adult General Chief complaint: Abdominal Pain Stated complaint: EPIASTRIC PAIN RAD DOWN BACK,PAIN W/URINE X3D Time Seen by Provider: 07/31/24 11:18 Source: patient, EMS and RN notes reviewed Mode of arrival: EMS Limitations: no limitations History of Present Illness ED Provider: jez HPI narrative: Patient is a 29-year-old male with history T1 DM, gastroparesis, GERD, Barrets esophagus presenting to the emergency department with complaint abdominal pain, nausea and vomiting since Monday. Reports on Monday glucose readings were ?high. ? Today glucose levels have been in the 200s. Also reports bilateral testicular pain. States he is not currently sexually active, has not been for the past year. Denies any abnormal discharge or drainage. Dysuria since Monday. Denies fevers. Denies hematemesis, hematochezia, melena. MD complaint: abdominal pain Onset (ago): day(s) Location: abdomen and genitals Quality: aching Pain Consistency: constant Associated symptoms: nausea/vomiting Treatments prior to arrival: none Related Data Home Medications ?Medication ?Instructions ?Recorded ?Confirmed pantoprazole 40 mg tablet,delayed 40 mg PO DAILY@0630 12/19/22 06/01/23 release (Protonix) promethazine 25 mg tablet 25 mg PO TID PRN nausea/vomiting 01/23/23 06/01/23 acetaminophen 500 mg tablet 500 mg PO Q6H PRN 04/09/24 Previous Rx's ?Medication ?Instructions ?Recorded ketorolac 10 mg tablet 10 mg PO TID PRN pain 5 days #15 05/04/23 tabs ondansetron 4 mg disintegrating 4 mg PO DAILY PRN nausea and 02/23/24 tablet vomiting 5 days #14 tabs glucagon 3 mg/actuation nasal 3 mg intranasal BID PRN 03/28/24 spray (Baqsimi) unresponsive hypoglycemia 30 days #2 ea insulin aspart U-100 100 unit/mL 1 sliding scale dose subcut TID 30 03/28/24 (3 mL) subcutaneous pen (Novolog days #9 mL FlexPen U-100 Insulin aspart) insulin degludec 200 unit/mL (3 20 unit (0.1 mL) subcut DAILY 30 03/28/24 mL) subcutaneous pen (Tresiba days #6 mL FlexTouch U-200 insulin) albuterol sulfate 90 mcg/actuation 2 puff inhalation QID PRN 04/13/24 aerosol inhaler shortness of breath or wheezing #6.7 grams cyclobenzaprine 10 mg tablet 10 mg PO TID #10 tabs 05/07/24 gabapentin 100 mg capsule 100 mg PO TID #30 caps 05/07/24 acetone (urine) test (Ketone Urine #25 ea 06/19/24 Test strips) blood-glucose meter,continuous #1 ea 06/19/24 (Dexcom G7 Sign Builder) blood-glucose sensor (Dexcom G7 #6 ea 06/19/24 Sensor device) glucagon 3 mg/actuation nasal 3 mg intranasal ONCE PRN 06/19/24 spray (Baqsimi) unresponsive hypoglycemia 30 days #2 ea ketorolac 10 mg tablet 10 mg PO Q8H PRN pain #10 tabs 07/31/24 levofloxacin 500 mg tablet 500 mg PO DAILY #10 tabs 07/31/24 ondansetron 4 mg disintegrating 4 mg PO Q8H PRN nausea and 07/31/24 tablet vomiting #10 tabs Allergies Allergy/AdvReac Type Severity Reaction Status Date / Time diphenhydramine Allergy Anaphylaxis Verified 07/31/24 11:14 [From Benadryl] haloperidol [From Haldol] Allergy Difficulty Verified 07/31/24 11:14 Swallowing metoclopramide [From Reglan] AdvReac Anxiety Verified 07/31/24 11:14 Review of Systems 2 Review of Systems: As per HPI Yes all other systems are reviewed and are negative Constitutional: Constitutional: Reports as per HPI PMFSH Past Medical History Medical History Dental infection Abdominal pain Colitis DKA (diabetic ketoacidosis) Hyperglycemia 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 type 1 Social History Social History Household Members: Other Household Members Other:: cousin Housing: House Do you presently have visiting nurse or other home services: No Alcohol intake: current Alcohol intake frequency: holidays/special occasions only Patient Tobacco Use Status: Current everyday Tobacco user Tobacco use type: Cigarette Cigarette Packs Per Day: 0 Cigarettes Per Day: 0 Years Smoked: 10 e-Cigarette/Vaping Use: Never Used Second Hand Smoke Exposure: No Substance Use Type: Marijuana Advance Directives: No Advance Directives Information Provided: Yes service: No Current occupational status: employed 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 Blood pressure normal. Heart rate normal. Respiratory rate normal. Temperature normal. Oxygen saturation normal. Const General: cooperative and no acute distress Orientation/consciousness: oriented to person, oriented to place, oriented to time and patient oriented x3 Limitations: no limitations HENMT Head: Yes normocephalic and Yes atraumatic Ears: external ears normal General nose exam: Normal external nose present Face and sinus: Yes face symmetric Mouth: oropharynx normal and moist mucous membranes Throat: Yes uvula midline Eyes Pupils: Equal, round and reactive pupils present Neck Neck: Yes normal visual inspection and Yes supple Resp Effort & Inspection: normal respiratory effort and able to speak in complete sentences Auscultation: clear to auscultation bilaterally Cardio Rate: regular rate Rhythm: regular rhythm Heart sounds: S1 normal heart sound present and S2 normal heart sound present GI Palpation (GI): Soft to palpation, Tenderness to palpation present (GI) in the LLQ and in the RLQ; with no rebound tenderness and no guarding Auscultation: normoactive bowel sounds Other: Chaperoned by RUSTY Cabrera General: Yes no CVA tenderness Male General Exam: Yes normal external exam Penis: normal penis Scrotum: scrotum normal, not erythematous, testes descended bilaterally and no scrotal swelling Testes: epididymal tenderness on the left, no testicular swelling and no testicular tenderness Back/Spine/Pelvis Back: no CVA tenderness Skin General skin exam: elasticity normal and turgor normal Neuro General: oriented to person, oriented to place, oriented to time, patient oriented x3, moves all extremities, no focal motor deficits and CN's II-XI intact bilaterally Cranial nerves: Yes Equal, round and reactive pupils present Cognition (Neuro): normal cognition Extrem General: Yes full ROM, Yes no pedal edema and Yes no calf tenderness Psych Mental Status: mental status grossly normal Affect: normal affect Thought process: Normal thought process present Medications Administered Discontinued Medications Generic Name Dose Route Start Last Admin Trade Name Wilfredo PRN Reason Stop Dose Admin Sodium Chloride 1,000 mls @ 999 mls/hr 07/31/24 11:30 07/31/24 14:22 Ns IV 07/31/24 12:30 Infused .Q1H1M JELENA Infusion Morphine Sulfate 4 mg 07/31/24 11:28 07/31/24 11:36 Morphine Sulfate 4 Mg/Ml Cartridge IVPUSH 07/31/24 11:29 4 mg ONCE ONE Administration Protocol Ondansetron HCl 4 mg 07/31/24 11:18 07/31/24 11:30 Ondansetron Hcl 4 Mg/2 Ml Vial IVPUSH 07/31/24 11:19 4 mg ONCE ONE Administration Medical Decision Making Medical Decision Making [facility] Narrative: Patient is a 29-year-old male with history T1 DM, gastroparesis, GERD presenting to the emergency department with complaint abdominal pain, nausea and vomiting since Monday. On exam patient is awake, A+Ox3, VS WNL, afebrile, normal neurological exam without focal deficits, physical exam findings as above. Given reported symptoms and physical exam findings, initial differential includes testicular torsion, epididymitis, epididymorchitis, DKA, HHNS, gastroparesis, gastritis, GERD. Labs notable for no leukocytosis, no anemia, slightly elevated BUN, normal VBG, elevated glucose without anion gap or elevated hydroxybutyrate. Ultrasound notable for left epididymitis. My interpretation is in agreement with the radiologist's interpretation. UA is without evidence of infection. CT NG pending. Patient updated on results and all questions answered. Reports improvement in pain and nausea after medications given in the ED, requesting to eat, and able to tolerate food and fluids. Feel patient is stable for discharge home on PO antibiotics. Patient is adamantly stating that he has not had intercourse with either women or men in the past year. Will treat with levofloxacin. Will also send prescription for zofran and pain medication. Advised patient to follow up with PCP. Return precautions discussed at bedside. Patient verbalized understanding of and agreement with plan. Differential Diagnosis Differential Diagnoses: The differential diagnosis associated with the presentation includes As per [facility] Admission/Observation Consideration of admission/observation: Escalation of care including admission/observation considered Patient would have been admitted to the hospital had their work up had any findings where hospital admission was appropriate and their clinical presentation warranted hospital admission. Lab Data [facility] Lab Attestation statement: I reviewed the patient's lab results. As per [facility] 07/31/24 11:23 07/31/24 11:23 Labs: Lab Results 07/31/24 07/31/24 07/31/24 Range/Units 11:23 13:17 15:08 WBC 8.2 (4.8-10.8) X10*3/uL RBC 5.32 (4.60-5.80) X10*6/uL Hgb 14.0 (14.0-18.0) g/dl Hct 41.8 L (42.0-52.0) % MCV 78.6 L (80.0-98.0) fL MCH 26.3 L (27.0-33.0) pg MCHC 33.5 (31.0-36.0) g/dl RDW 14.3 (11.0-16.0) % Plt Count 265 (160-400) X10*3/uL MPV 9.6 (9.4-12.4) fL Immature Gran % (Auto) 0.4 (0.0-0.4) % Neut % (Auto) 72.0 (45-73) % Lymph % (Auto) 19.7 L (20-40) % [place] % (Auto) 6.2 (2-11) % Eos % (Auto) 1.0 (0-4) % Baso % (Auto) 0.7 (0-2) % Lymph # (Auto) 1.6 (1.2-4.9) X10*3/uL [place] # (Auto) 0.5 (0.1-1.2) X10*3/uL Eos # (Auto) 0.1 (0.0-0.4) X10*3/uL Baso # (Auto) 0.1 (0.0-0.2) X10*3/uL Abs Immat Gran (auto) 0.03 (0.00-0.03) X10*3/uL Absolute Neuts (auto) 5.9 (2.0-8.3) x10*3/uL Absolute Nucleated RBC 0.000 (0.0-0.012) X10*3/uL Nucleated RBC % (auto) 0.0 (0.0-0.2) /100WBC VBG pH 7.43 (7.32-7.43) VBG pCO2 39 mmHg VBG pO2 223 mmHg VBG HCO3 26 (22-26) mmol/L VBG O2 Saturation 99.0 % VBG Base Excess 2.5 mmol/L Sodium 137 (135-145) mmol/L Potassium 4.0 (3.3-5.1) mmol/L Chloride 104 (96-108) mmol/L Carbon Dioxide 22 (22-29) mmol/L Anion Gap 15 (12-20) BUN 22 H (9-16) mg/dL Creatinine 0.82 (0.5-1.4) mg/dL Estim Creat Clear Calc 115.3 Estimated GFR > 60 Random Glucose 193 H (60-115) mg/dL Calcium 10.7 H (8.4-10.2) mg/dL Total Bilirubin 0.5 (0.0-1.0) mg/dL Direct Bilirubin 0.2 (0.0-0.5) mg/dL AST 20 (5-37) U/L ALT 13 (0-40) U/L Alkaline Phosphatase 81 (39-117) U/L Total Protein 7.9 (6.5-8.0) g/dL Albumin 4.4 (3.5-5.0) g/dL Lipase 5 L (8-78) U/L Beta-Hydroxybutyrate 0.22 (0.02-0.27) mmol/L Urine Color Yellow Urine Appearance Clear Urine pH 8.0 (5.0-9.0) Ur Specific [place] 1.025 (1.005-1.025) Urine Protein 100 (2+) H (Neg-Trace) mg/dL Urine Glucose (UA) 100 H (Negative) mg/dL Urine Ketones 40 (Negative) mg/dL Urine Blood Negative (Negative) Urine Nitrite Negative (Negative) Ur Leukocyte Esterase Negative (Negative) Urine RBC 0-2 (0-2) /HPF Urine WBC 0-5 (0-5) /HPF Ur Squamous Epith Cells 0-2 (0-2) /HPF Urine Bacteria None Seen (None Seen) Hyaline Casts 0-2 (0-2) /LPF Independent Interpretation I performed an independent interpretation of an: Ultrasound Interpretation: Left epididymitis Radiology Impression Discussion of test interpretation with radiology: I have reviewed the radiologist's reading. Radiologist Impression: US/US scrotum IMPRESSION: 1. Edema and increased vascularity in the body of the left epididymus consistent with epididymitis. 2. Bilateral testicles are normal. External Record Review External record reviewed: Inpatient record, Office record and Outpatient record Prescription Management I considered prescription management with: Pain Medication, Antibiotic and Other Chronic Conditions Patient?s care impacted by: Diabetes Critical Care Time Critical Care Time Critical Care Time: Yes Total Critical Care Time: 35 Attestation: I have personally provided critical care time exclusive of time spent on separately billable procedures. Time includes review of lab data, radiology results, discussion with consultants, and monitoring for potential decompensation. Intervention performed as documented. Discharge Plan Discharge Clinical Impression: Acute epididymitis Patient Disposition: Home, Self-Care Instructions: Levofloxacin (By mouth), Epididymitis (ED) Additional Instructions: You were evaluated in the emergency department today for abdominal and testicular pain as well as nausea and vomiting. Your ultrasound showed evidence of left-sided epididymitis. You are being treated with a course of antibiotics to treat this. Complete the full course as prescribed even if symptoms improve. Follow up with urology for any ongoing symptoms. Return to the emergency department if you develop increasing swelling, pain, fever, persistent vomiting or any other concerning symptoms. Prescriptions: New levofloxacin 500 mg tablet 500 mg PO DAILY Qty: 10 0RF ondansetron 4 mg tablet,disintegrating 4 mg PO Q8H PRN (Reason: nausea and vomiting) Qty: 10 0RF ketorolac 10 mg tablet 10 mg PO Q8H PRN (Reason: pain) Qty: 10 0RF Rx Instructions: maximum total duration of 5 days from all oral, intranasal, or parenteral formulations No Action (DME) Dexcom G7 Sensor Device See Rx Instructions .ROUTE .MEDSUPPLY Qty: 6 6RF Rx Instructions: As directed every 10 days (DME) Dexcom G7 Sign Builder Misc See Rx Instructions .ROUTE .MEDSUPPLY Qty: 1 1RF Rx Instructions: As directed (DME) Ketone Urine Test Strip See Rx Instructions .ROUTE .MEDSUPPLY Qty: 25 3RF Rx Instructions: As directed prn glucose over 250, nausea/vomiting tid Baqsimi 3 mg/actuation spray,non-aerosol 3 mg intranasal ONCE MDD 6mg may repeat in 15 minutes PRN (Reason: unresponsive hypoglycemia) 30 Days Qty: 2 1RF pantoprazole [Protonix] 40 mg tablet,delayed release (DR/EC) 40 mg PO DAILY@0630 promethazine 25 mg tablet 25 mg PO TID PRN (Reason: nausea/vomiting) ketorolac 10 mg tablet 10 mg PO TID PRN (Reason: pain) 5 Days Qty: 15 0RF ondansetron 4 mg tablet,disintegrating 4 mg PO DAILY PRN (Reason: nausea and vomiting) 5 Days Qty: 14 0RF albuterol sulfate 90 mcg/actuation HFA aerosol inhaler 2 puff inhalation QID PRN (Reason: shortness of breath or wheezing) Qty: 6.7 0RF gabapentin 100 mg capsule 100 mg PO TID Qty: 30 0RF cyclobenzaprine 10 mg tablet 10 mg PO TID Qty: 10 0RF acetaminophen 500 mg tablet 500 mg PO Q6H PRN insulin aspart U-100 [Novolog FlexPen U-100 Insulin] 100 unit/mL (3 mL) insulin pen 1 sliding scale dose subcut TID 30 Days Qty: 9 3RF Rx Instructions: 1 sliding scale dose subcutaneously; 1 unit for every 35 points over 135, 1:15 ratio (uses approx 20-25 units daily) Baqsimi 3 mg/actuation spray,non-aerosol 3 mg intranasal BID MDD 6mg PRN (Reason: unresponsive hypoglycemia) 30 Days Qty: 2 1RF Rx Instructions: P.R.N. for unresponsive hypoglycemia. Check to see if patient breathing and pulse, initiate CPR if needed. Call 911. Use when patient can not self treat low sugar. [place] once, position lying on the side, repeat again in 15 minutes. insulin degludec [Tresiba FlexTouch U-200] 200 unit/mL (3 mL) insulin pen 20 unit subcut DAILY 30 Days Qty: 6 6RF Referrals: [facility] [Provider Group] Stand Alone Forms: Work/School Release Print Language: Vincentian
[2024-07-31] MEDS: 0.9 % Sodium Chloride 1,000 ML 999 ML IV (11:27)
[2024-07-31] MEDS: ondansetron HCL 4 MG/2 ML VIAL IVPUSH (11:30)
[2024-07-31 11:32] LABS: MANUAL DIFF FLAG NO
[2024-07-31 11:33] LABS: Basophils Absolute Auto 0.1 X10*3/uL (0.0-0.2); Basophils Percent Auto 0.7 % (0-2); Eosinophils Absolute Auto 0.1 X10*3/uL (0.0-0.4); Hematocrit 41.8 % (42.0-52.0); Imm Gran Abs Auto 0.03 X10*3/uL (0.00-0.03); Imm Gran Pct Auto 0.4 % (0.0-0.4); Lymphocytes Absolute Auto 1.6 X10*3/uL (1.2-4.9); Lymphocytes Percent Auto 19.7 % (20-40); Mean Corpuscular HGB Conc 33.5 g/dl (31.0-36.0); Mean Corpuscular Hemoglobin 26.3 pg (27.0-33.0); Mean Corpuscular Volume 78.6 fL (80.0-98.0); Mean Platelet Volume 9.6 fL (9.4-12.4); Monocytes Absolute Auto 0.5 X10*3/uL (0.1-1.2); Monocytes Percent Auto 6.2 % (2-11); Neutrophils Absolute Auto 5.9 x10*3/uL (2.0-8.3); Platelet Count 265 X10*3/uL (160-400); Red Blood Count 5.32 X10*6/uL (4.60-5.80); Red Cell Distribution Width 14.3 % (11.0-16.0); White Blood Count 8.2 X10*3/uL (4.8-10.8)
[2024-07-31] MEDS: Morphine Sulfate 4 MG/ML CARTRIDGE IVPUSH (11:36)
[2024-07-31 11:52] LABS: Alanine Aminotransferase 13 U/L (0-40); Albumin Level 4.4 g/dL (3.5-5.0); Alkaline Phosphatase 81 U/L (39-117); Anion Gap 15 (12-20); Aspartate Amino Transferase 20 U/L (5-37); Bilirubin Direct 0.2 mg/dL (0.0-0.5); Bilirubin Total 0.5 mg/dL (0.0-1.0); Blood Urea Nitrogen 22 mg/dL (9-16); Calcium 10.7 mg/dL (8.4-10.2); Carbon Dioxide 22 mmol/L (22-29); Chloride 104 mmol/L (96-108); Creatinine Clr Calc Pharmacy 115.3; Estimated Glomerular Filt Rate > 60; Glucose Random 193 mg/dL (60-115); Lipase 5 U/L (8-78); Sodium 137 mmol/L (135-145); Total Protein 7.9 g/dL (6.5-8.0)
[2024-07-31 12:55] LABS: Beta-Hydroxybutyrate 0.22 mmol/L (0.02-0.27)
[2024-07-31 13:19] LABS: Venous Blood Gas Refer to POC result
[2024-07-31 13:22] LABS: VBG Base Excess 2.5 mmol/L; VBG HCO3 26 mmol/L (22-26); VBG pCO2 39 mmHg; VBG pH 7.43 (7.32-7.43); VBG pO2 223 mmHg
[2024-07-31 15:18] LABS: Color Urine Yellow; Glucose Urine UA 100 mg/dL (Negative); Leukocyte Esterase Urine Negative (Negative); Nitrite Urine Negative (Negative); Specific Gravity - Urine 1.025 (1.005-1.025); UMIC TRIGGER UACC YES; Urine Blood Negative (Negative); Urine Ketones 40 mg/dL (Negative); Urine Protein 100 (2+) mg/dL (Neg-Trace)
[2024-07-31 15:19] LABS: Appearance Urine Clear
[2024-07-31 15:20] LABS: Bacteria Urine None Seen (None Seen); Hyaline Casts Urine 0-2 /LPF (0-2); RBC Urine 0-2 /HPF (0-2); Squamous Epithelial Cell Urine 0-2 /HPF (0-2); WBC Urine 0-5 /HPF (0-5)
[2024-07-31 16:25] VITALS: BP 115/79; PULSE 84; RESP 18; TEMP 36.6; O2SAT 100
[2024-07-31 17:21] LABS: CT PCR NOT DETECTED (Not Detect.); NG PCR NOT DETECTED (Not Detect.)
== END 2024-07-31 16:26 | disposition home or self-care (01) ==
PROVIDERS: Registered Nurse Emergency; Emergency Provider Emergency Medicine
DX: N45.1 Epididymitis (principal); N50.812 Left testicular pain; N50.811 Right testicular pain; R11.2 Nausea with vomiting, unspecified; E10.65 Type 1 diabetes mellitus with hyperglycemia; K31.84 Gastroparesis; K21.9 Gastro-esophageal reflux disease without esophagitis; K22.70 Barrett's esophagus without dysplasia; F17.210 Nicotine dependence, cigarettes, uncomplicated; F12.90 Cannabis use, unspecified, uncomplicated; Z79.899 Other long term (current) drug therapy; Z79.4 Long term (current) use of insulin
CPT/HCPCS: 36415; 76870; 80048; 80076; 81001; 82010; 82803; 83690; 85025; 87491; 87591; 93975; 96361; 96374; 96375; 99283; 99284; J2270; J2405

== ENCOUNTER 2024-08-01 22:31 | Emergency (ER) | payer MEDICAID, SELFPAY ==
--- NOTE | ~2024-08-01 | US_ITS ---
EXAMINATION: US SCROTUM CLINICAL INFORMATION: Worsening left pain. Yesterday epididymitis.. COMPARISON: Scrotal ultrasound 07/31/2024. TECHNIQUE: A sonogram of the scrotum was performed assessing acosta-scale appearance and color Doppler flow. Spectral Doppler analysis of the arterial and venous flow were performed in the testes bilaterally. FINDINGS: Right testis measures 4.9 cm x 2.0 cm x 2.8 cm. The left testis measures 5.1 cm 2.1 cm x 3.4 cm. The testes demonstrate normal grayscale sonographic appearance and normal color Doppler appearance. Bilateral low resistive venous waveforms are noted within the testes. The left epididymal head demonstrates a vague hypoechoic region measuring 1.0 cm x 0.7 cm x 1.9 cm with no or minimal internal color flow. This finding is a borderline finding identified by the industrial engineering technologist which may represent normal visualization of the head of the epididymis or mild edematous changes of the head of the epididymis. Color flow suggests increased hyperemia within the body of the left epididymis. The right epididymis measures approximately 1.4 cm in maximum dimension a 3 mm diameter anechoic cystic focus is present in the right epididymal head and may represent an incidental spermatocele. Color Doppler interrogation demonstrates no hyperemia of the right epididymal head. No scrotal wall thickening noted. No varicoceles identified. US/US scrotum IMPRESSION: *Hyperemia within the body of the left epididymal body suspicious for epididymitis. Similar findings were noted on the comparison study of 07/31/2024. *No evidence of testicular torsion. Electronically signed by: Richard Alfaro MD 08/02/2024 02:36 AM [facility]
--- NOTE | ~2024-08-01 | US_ITS ---
EXAMINATION: US SCROTUM CLINICAL INFORMATION: Worsening left pain. Yesterday epididymitis.. COMPARISON: Scrotal ultrasound 07/31/2024. TECHNIQUE: A sonogram of the scrotum was performed assessing acosta-scale appearance and color Doppler flow. Spectral Doppler analysis of the arterial and venous flow were performed in the testes bilaterally. FINDINGS: Right testis measures 4.9 cm x 2.0 cm x 2.8 cm. The left testis measures 5.1 cm 2.1 cm x 3.4 cm. The testes demonstrate normal grayscale sonographic appearance and normal color Doppler appearance. Bilateral low resistive venous waveforms are noted within the testes. The left epididymal head demonstrates a vague hypoechoic region measuring 1.0 cm x 0.7 cm x 1.9 cm with no or minimal internal color flow. This finding is a borderline finding identified by the echo technologist which may represent normal visualization of the head of the epididymis or mild edematous changes of the head of the epididymis. Color flow suggests increased hyperemia within the body of the left epididymis. The right epididymis measures approximately 1.4 cm in maximum dimension a 3 mm diameter anechoic cystic focus is present in the right epididymal head and may represent an incidental spermatocele. Color Doppler interrogation demonstrates no hyperemia of the right epididymal head. No scrotal wall thickening noted. No varicoceles identified. US/US scrotum doppler IMPRESSION: *Hyperemia within the body of the left epididymal body suspicious for epididymitis. Similar findings were noted on the comparison study of 07/31/2024. *No evidence of testicular torsion. Electronically signed by: Richard Alfaro MD 08/02/2024 02:36 AM [facility]
[2024-08-01 22:48] VITALS: BP 130/87; PULSE 81; RESP 16; TEMP 36.9; O2SAT 100; BMI 18.7
--- NOTE | 2024-08-01 23:15 | ED.MALEGU ---
HPI - Male Genitourinary General Chief complaint: Urogenital-Male Stated complaint: TESTICAL PAIN 05/30 PAIN NAUSEA ABD PAIN- EMS Time Seen by Provider: 08/01/24 22:56 Source: patient and EMS Mode of arrival: EMS Limitations: no limitations History of Present Illness ED Provider: Dr. Paige Serna HPI Narrative: Patient comes to the emergency room complaining of scrotal pain. Patient states that yesterday he was diagnosed with epididymitis on the left testicle. Patient states that he was able to make it home and was comfortable for a few minutes but shortly after he started having severe testicular pain. Today, the pain got much worse. Patient states that he has been nauseous without any relief. Patient states that the pain actually got much worse. Patient denies any trauma, denies any penile discharge. Related Data Home Medications ?Medication ?Instructions ?Recorded ?Confirmed pantoprazole 40 mg tablet,delayed 40 mg PO DAILY@0630 12/19/22 06/01/23 release (Protonix) promethazine 25 mg tablet 25 mg PO TID PRN nausea/vomiting 01/23/23 06/01/23 acetaminophen 500 mg tablet 500 mg PO Q6H PRN 04/09/24 Previous Rx's ?Medication ?Instructions ?Recorded ketorolac 10 mg tablet 10 mg PO TID PRN pain 5 days #15 05/04/23 tabs ondansetron 4 mg disintegrating 4 mg PO DAILY PRN nausea and 02/23/24 tablet vomiting 5 days #14 tabs glucagon 3 mg/actuation nasal 3 mg intranasal BID PRN 03/28/24 spray (Baqsimi) unresponsive hypoglycemia 30 days #2 ea insulin aspart U-100 100 unit/mL 1 sliding scale dose subcut TID 30 03/28/24 (3 mL) subcutaneous pen (Novolog days #9 mL FlexPen U-100 Insulin aspart) insulin degludec 200 unit/mL (3 20 unit (0.1 mL) subcut DAILY 30 03/28/24 mL) subcutaneous pen (Tresiba days #6 mL FlexTouch U-200 insulin) albuterol sulfate 90 mcg/actuation 2 puff inhalation QID PRN 04/13/24 aerosol inhaler shortness of breath or wheezing #6.7 grams cyclobenzaprine 10 mg tablet 10 mg PO TID #10 tabs 05/07/24 gabapentin 100 mg capsule 100 mg PO TID #30 caps 05/07/24 acetone (urine) test (Ketone Urine #25 ea 06/19/24 Test strips) blood-glucose meter,continuous #1 ea 06/19/24 (Dexcom G7 Director Of Compliance) blood-glucose sensor (Dexcom G7 #6 ea 06/19/24 Sensor device) glucagon 3 mg/actuation nasal 3 mg intranasal ONCE PRN 06/19/24 spray (Baqsimi) unresponsive hypoglycemia 30 days #2 ea ketorolac 10 mg tablet 10 mg PO Q8H PRN pain #10 tabs 07/31/24 levofloxacin 500 mg tablet 500 mg PO DAILY #10 tabs 07/31/24 ondansetron 4 mg disintegrating 4 mg PO Q8H PRN nausea and 07/31/24 tablet vomiting #10 tabs Allergies Allergy/AdvReac Type Severity Reaction Status Date / Time diphenhydramine Allergy Anaphylaxis Verified 08/01/24 22:51 [From Benadryl] haloperidol [From Haldol] Allergy Difficulty Verified 08/01/24 22:51 Swallowing metoclopramide [From Reglan] AdvReac Anxiety Verified 08/01/24 22:51 Review of Systems Review of Systems: Constitutional : No Weight loss, No Fever, No Chills, No Night Sweats, No Fatigue, No Malaise ENT/Mouth : No Hearing loss, No Ear Pain, No Nasal Congestion, No Sinus Pain, No Hoarseness, No sore throat, No Rhinorrhea, No Swallowing Difficulty Eyes: No Eye Pain, No Swelling, No Redness, No Foreign Body, No Discharge, No Vision Changes Cardiovascular : No Chest Pain, No SOB, No Dyspnea on Exertion, No Orthopnea, No Edema, No Palpitations Respiratory : No Cough, No Sputum, No Wheezing, No Smoke Exposure, No Dyspnea Gastrointestinal : No Nausea, No Vomiting, No Diarrhea, No Constipation, No abdominal Pain, No Hematochezia, No Melena Genitourinary complaining of worsening testicular pain, No Dysuria, No Urinary Frequency, No Hematuria, No Urinary Incontinence, No Urgency, No Flank Pain, No Urinary Flow Changes, No Hesitancy Musculoskeletal : No joint pain, No Myalgias, No Joint Swelling Skin : No Skin Lesions, No rash Neuro : No Weakness, No Numbness, No Paresthesias, No Loss of Consciousness, No Dizziness, No Headache Psych : No Anxiety/Panic, No Depression, No SI/HI/AH/VH, No Social Issues, Heme/Lymph: No Bruising, No Bleeding,No Lymphadenopathy Endocrine : No Polyuria, No Polydipsia, No Temperature Intolerance [facility] Past Medical History Medical History Dental infection Abdominal pain Colitis DKA (diabetic ketoacidosis) Hyperglycemia 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 type 1 Social History Social History Household Members: Other Household Members Other:: cousin Housing: House Do you presently have visiting nurse or other home services: No Alcohol intake: current Alcohol intake frequency: holidays/special occasions only Patient Tobacco Use Status: Current everyday Tobacco user Tobacco use type: Cigarette Cigarette Packs Per Day: 0 Cigarettes Per Day: 0 Years Smoked: 10 e-Cigarette/Vaping Use: Never Used Second Hand Smoke Exposure: No Substance Use Type: Marijuana Advance Directives: No Advance Directives Information Provided: No Do you have a plan to hurt others: No Plan service: No Current occupational status: employed 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 Oriented X3. Seems uncomfortable Eyes: Pupils equal, round and reactive to light. ENT: Pharynx normal. Neck: Normal inspection. Neck supple. No lymph nodes noted. No crepitus CVS: Normal heart rate and rhythm. Pulses normal. Normal S1 and S2 Respiratory: No respiratory distress. Breath sounds normal. No Wheezing. No rales Abdomen: Soft and nontender. No rigidity. No distention. Skin: Skin warm and dry. Normal skin color. Normal skin turgor. Extremities: No lower extremity edema. No Lacerations. No Rash Neuro: Oriented X 3. No motor deficit. No sensory deficit. Moving all extremities. No slurred speech. CN 2 through 12 grossly intact Psych: calm, cooperative, normal affect Course Course Course Narrative: Patient's labs pending. I reviewed patient's ultrasound from yesterday, patient diagnosed with left-sided epididymitis. However, since the pain got much worse, there is concerned that the may be a torsion. Ultrasound will be repeated. -patient has been taking Toradol and levofloxacin without any pain relief. Patient was given a dose of IV morphine and Zofran in the emergency room. Medications Administered Discontinued Medications Generic Name Dose Route Start Last Admin Trade Name Wilfredo PRN Reason Stop Dose Admin Morphine Sulfate 4 mg 08/01/24 23:03 08/02/24 00:03 Morphine Sulfate 4 Mg/Ml Cartridge IVPUSH 08/01/24 23:04 4 mg ONCE ONE Administration Protocol Ondansetron HCl 4 mg 08/01/24 23:03 08/02/24 00:03 Ondansetron Hcl 4 Mg/2 Ml Vial IVPUSH 08/01/24 23:04 4 mg ONCE ONE Administration Medical Decision Making Medical Decision Making [facility] Narrative: My interpretation of labs: No change in hematology report from yesterday, white blood cell count within normal limits, chemistry no change, LFTs normal -ultrasound from yesterday showed that patient has epididymitis especially on the left side. Ultrasound was repeated, report pending. Patient has been giving a dose of morphine and Zofran. Sign out given to my colleague Differential Diagnosis Differential Diagnoses: The differential diagnosis associated with the presentation includes (Testicular torsion, epididymitis, testicular mass) Admission/Observation Consideration of admission/observation: Escalation of care including admission/observation considered Lab Data MDM Lab Attestation statement: I reviewed the patient's lab results. 08/01/24 23:23 08/01/24 23:23 Labs: Lab Results 08/01/24 Range/Units 23:23 WBC 7.5 (4.8-10.8) X10*3/uL RBC 4.66 (4.60-5.80) X10*6/uL Hgb 12.3 L (14.0-18.0) g/dl Hct 35.5 L (42.0-52.0) % MCV 76.2 L (80.0-98.0) fL MCH 26.4 L (27.0-33.0) pg MCHC 34.6 (31.0-36.0) g/dl RDW 14.2 (11.0-16.0) % Plt Count 249 (160-400) X10*3/uL MPV 9.7 (9.4-12.4) fL Immature Gran % (Auto) 0.3 (0.0-0.4) % Neut % (Auto) 66.2 (45-73) % Lymph % (Auto) 24.5 (20-40) % [place] % (Auto) 7.3 (2-11) % Eos % (Auto) 1.2 (0-4) % Baso % (Auto) 0.5 (0-2) % Lymph # (Auto) 1.8 (1.2-4.9) X10*3/uL [place] # (Auto) 0.6 (0.1-1.2) X10*3/uL Eos # (Auto) 0.1 (0.0-0.4) X10*3/uL Baso # (Auto) 0.0 (0.0-0.2) X10*3/uL Abs Immat Gran (auto) 0.02 (0.00-0.03) X10*3/uL Absolute Neuts (auto) 5.0 (2.0-8.3) x10*3/uL Absolute Nucleated RBC 0.000 (0.0-0.012) X10*3/uL Nucleated RBC % (auto) 0.0 (0.0-0.2) /100WBC Sodium 138 (135-145) mmol/L Potassium 3.5 (3.3-5.1) mmol/L Chloride 107 (96-108) mmol/L Carbon Dioxide 21 L (22-29) mmol/L Anion Gap 14 (12-20) BUN 21 H (9-16) mg/dL Creatinine 0.76 (0.5-1.4) mg/dL Estim Creat Clear Calc 128.3 Estimated GFR > 60 Random Glucose 144 H (60-115) mg/dL Calcium 9.4 D (8.4-10.2) mg/dL Total Bilirubin 0.5 (0.0-1.0) mg/dL Direct Bilirubin 0.2 (0.0-0.5) mg/dL AST 19 (5-37) U/L ALT 17 (0-40) U/L Alkaline Phosphatase 65 (39-117) U/L Total Protein 6.7 (6.5-8.0) g/dL Albumin 3.9 (3.5-5.0) g/dL Independent Interpretation I performed an independent interpretation of an: Ultrasound Interpretation: My interpretation of ultrasound of the scrotum, bilateral testes seem to have flow both arterial and venous. Critical Care Time Critical Care Time Critical Care Time: Yes Total Critical Care Time: 45 Attestation: I have personally provided critical care time. Time includes review of lab data, radiology results, discussion with consultants, and monitoring for potential decompensation. Intervention performed as documented. Discharge Plan Discharge Clinical Impression: Autoimmune epididymitis Patient Disposition: Still a Patient Prescriptions: No Action (DME) Dexcom G7 Sensor Device See Rx Instructions .ROUTE .MEDSUPPLY Qty: 6 6RF Rx Instructions: As directed every 10 days (DME) Dexcom G7 Director Of Compliance Misc See Rx Instructions .ROUTE .MEDSUPPLY Qty: 1 1RF Rx Instructions: As directed (DME) Ketone Urine Test Strip See Rx Instructions .ROUTE .MEDSUPPLY Qty: 25 3RF Rx Instructions: As directed prn glucose over 250, nausea/vomiting tid Baqsimi 3 mg/actuation spray,non-aerosol 3 mg intranasal ONCE MDD 6mg may repeat in 15 minutes PRN (Reason: unresponsive hypoglycemia) 30 Days Qty: 2 1RF pantoprazole [Protonix] 40 mg tablet,delayed release (DR/EC) 40 mg PO DAILY@0630 promethazine 25 mg tablet 25 mg PO TID PRN (Reason: nausea/vomiting) ketorolac 10 mg tablet 10 mg PO TID PRN (Reason: pain) 5 Days Qty: 15 0RF ondansetron 4 mg tablet,disintegrating 4 mg PO DAILY PRN (Reason: nausea and vomiting) 5 Days Qty: 14 0RF albuterol sulfate 90 mcg/actuation HFA aerosol inhaler 2 puff inhalation QID PRN (Reason: shortness of breath or wheezing) Qty: 6.7 0RF gabapentin 100 mg capsule 100 mg PO TID Qty: 30 0RF cyclobenzaprine 10 mg tablet 10 mg PO TID Qty: 10 0RF levofloxacin 500 mg tablet 500 mg PO DAILY Qty: 10 0RF ondansetron 4 mg tablet,disintegrating 4 mg PO Q8H PRN (Reason: nausea and vomiting) Qty: 10 0RF ketorolac 10 mg tablet 10 mg PO Q8H PRN (Reason: pain) Qty: 10 0RF Rx Instructions: maximum total duration of 5 days from all oral, intranasal, or parenteral formulations acetaminophen 500 mg tablet 500 mg PO Q6H PRN insulin aspart U-100 [Novolog FlexPen U-100 Insulin] 100 unit/mL (3 mL) insulin pen 1 sliding scale dose subcut TID 30 Days Qty: 9 3RF Rx Instructions: 1 sliding scale dose subcutaneously; 1 unit for every 35 points over 135, 1:15 ratio (uses approx 20-25 units daily) Baqsimi 3 mg/actuation spray,non-aerosol 3 mg intranasal BID MDD 6mg PRN (Reason: unresponsive hypoglycemia) 30 Days Qty: 2 1RF Rx Instructions: P.R.N. for unresponsive hypoglycemia. Check to see if patient breathing and pulse, initiate CPR if needed. Call 911. Use when patient can not self treat low sugar. [place] once, position lying on the side, repeat again in 15 minutes. insulin degludec [Tresiba FlexTouch U-200] 200 unit/mL (3 mL) insulin pen 20 unit subcut DAILY 30 Days Qty: 6 6RF Print Language: [place]
[2024-08-01 23:27] LABS: MANUAL DIFF FLAG NO
[2024-08-01 23:28] LABS: Basophils Percent Auto 0.5 % (0-2); Eosinophils Absolute Auto 0.1 X10*3/uL (0.0-0.4); Eosinophils Percent Auto 1.2 % (0-4); Hematocrit 35.5 % (42.0-52.0); Hemoglobin 12.3 g/dl (14.0-18.0); Imm Gran Abs Auto 0.02 X10*3/uL (0.00-0.03); Imm Gran Pct Auto 0.3 % (0.0-0.4); Lymphocytes Absolute Auto 1.8 X10*3/uL (1.2-4.9); Lymphocytes Percent Auto 24.5 % (20-40); Mean Corpuscular HGB Conc 34.6 g/dl (31.0-36.0); Mean Corpuscular Hemoglobin 26.4 pg (27.0-33.0); Mean Corpuscular Volume 76.2 fL (80.0-98.0); Mean Platelet Volume 9.7 fL (9.4-12.4); Monocytes Absolute Auto 0.6 X10*3/uL (0.1-1.2); Monocytes Percent Auto 7.3 % (2-11); Neutrophils Percent Auto 66.2 % (45-73); Platelet Count 249 X10*3/uL (160-400); Red Blood Count 4.66 X10*6/uL (4.60-5.80); Red Cell Distribution Width 14.2 % (11.0-16.0); White Blood Count 7.5 X10*3/uL (4.8-10.8)
[2024-08-01 23:42] LABS: Alanine Aminotransferase 17 U/L (0-40); Albumin Level 3.9 g/dL (3.5-5.0); Alkaline Phosphatase 65 U/L (39-117); Anion Gap 14 (12-20); Aspartate Amino Transferase 19 U/L (5-37); Bilirubin Direct 0.2 mg/dL (0.0-0.5); Bilirubin Total 0.5 mg/dL (0.0-1.0); Blood Urea Nitrogen 21 mg/dL (9-16); Calcium 9.4 mg/dL (8.4-10.2); Carbon Dioxide 21 mmol/L (22-29); Chloride 107 mmol/L (96-108); Creatinine Clr Calc Pharmacy 128.3; Estimated Glomerular Filt Rate > 60; Glucose Random 144 mg/dL (60-115); Potassium 3.5 mmol/L (3.3-5.1); Sodium 138 mmol/L (135-145); Total Protein 6.7 g/dL (6.5-8.0)
[2024-08-02] MEDS: ondansetron HCL 4 MG/2 ML VIAL IVPUSH (00:03)
[2024-08-02] MEDS: Morphine Sulfate 4 MG/ML CARTRIDGE IVPUSH ×2 (00:03→03:09)
[2024-08-02] MEDS: Prochlorperazine Edisylate 10 MG/2 ML VIAL IVPUSH (03:09)
[2024-08-02 03:36] VITALS: BP 130/87; PULSE 81; RESP 16; TEMP 36.9; O2SAT 100
== END 2024-08-02 03:37 | disposition home or self-care (01) ==
PROVIDERS: Emergency Medicine; Emergency Provider Internal Medicine
DX: N45.1 Epididymitis (principal); N50.82 Scrotal pain; E10.9 Type 1 diabetes mellitus without complications; F17.210 Nicotine dependence, cigarettes, uncomplicated
CPT/HCPCS: 36415; 76870; 80048; 80076; 85025; 93975; 96374; 96375; 96376; 99282; 99284; J0737; J2270; J2405

== ENCOUNTER 2024-08-05 01:48 | Emergency (ER) | payer MEDICAID, SELFPAY ==
[2024-08-05 01:51] VITALS: BMI 19.5
[2024-08-05 02:02] VITALS: BP 164/102; PULSE 89; O2SAT 98
[2024-08-05 02:02] LABS: Glucose, Whole Blood 77 mg/dL (60-115)
--- NOTE | 2024-08-05 02:13 | PC.NURSE ---
pt blood sugar was low, pt given juice and ham sandwhich. pt states he has a slight headache. pt states his po intake has been low due to not feeling like he can keep anything down. h/a 10/28. pt was nausea on the antibox. couldnt keep anything down feeling better. Pt was here prev for epididamis pain.
[2024-08-05 02:15] LABS: MANUAL DIFF FLAG NO
[2024-08-05 02:17] LABS: Basophils Absolute Auto 0.1 X10*3/uL (0.0-0.2); Basophils Percent Auto 0.6 % (0-2); Eosinophils Absolute Auto 0.2 X10*3/uL (0.0-0.4); Eosinophils Percent Auto 2.2 % (0-4); Hematocrit 37.3 % (42.0-52.0); Hemoglobin 12.3 g/dl (14.0-18.0); Imm Gran Abs Auto 0.01 X10*3/uL (0.00-0.03); Imm Gran Pct Auto 0.1 % (0.0-0.4); Lymphocytes Absolute Auto 2.5 X10*3/uL (1.2-4.9); Lymphocytes Percent Auto 31.2 % (20-40); Mean Corpuscular Hemoglobin 26.1 pg (27.0-33.0); Mean Corpuscular Volume 79.2 fL (80.0-98.0); Mean Platelet Volume 9.8 fL (9.4-12.4); Monocytes Absolute Auto 0.5 X10*3/uL (0.1-1.2); Monocytes Percent Auto 6.5 % (2-11); Neutrophils Absolute Auto 4.7 x10*3/uL (2.0-8.3); Neutrophils Percent Auto 59.4 % (45-73); Platelet Count 282 X10*3/uL (160-400); Red Blood Count 4.71 X10*6/uL (4.60-5.80); Red Cell Distribution Width 14.3 % (11.0-16.0); White Blood Count 7.9 X10*3/uL (4.8-10.8)
[2024-08-05 02:26] LABS: Appearance Urine Clear; Color Urine Yellow; Glucose Urine UA >=1000 mg/dL (Negative); Leukocyte Esterase Urine Negative (Negative); Nitrite Urine Negative (Negative); PH 6.5 (5.0-9.0); Specific Gravity - Urine 1.025 (1.005-1.025); UMIC TRIGGER UACC YES; Urine Blood Negative (Negative); Urine Ketones Negative (Negative); Urine Protein 30 (1+) mg/dL (Neg-Trace)
[2024-08-05 02:31] LABS: Anion Gap 12 (12-20); Blood Urea Nitrogen 15 mg/dL (9-16); Calcium 9.1 mg/dL (8.4-10.2); Carbon Dioxide 27 mmol/L (22-29); Chloride 105 mmol/L (96-108); Creatinine Clr Calc Pharmacy 116.5; Estimated Glomerular Filt Rate > 60; Glucose Random 88 mg/dL (60-115); Lipase 6 U/L (8-78); Potassium 3.6 mmol/L (3.3-5.1); Sodium 140 mmol/L (135-145)
[2024-08-05 02:44] LABS: Bacteria Urine None Seen (None Seen); Hyaline Casts Urine 0-2 /LPF (0-2); RBC Urine 0-2 /HPF (0-2); Squamous Epithelial Cell Urine 0-2 /HPF (0-2); WBC Urine 0-5 /HPF (0-5)
[2024-08-05 03:06] LABS: Glucose, Whole Blood 175 mg/dL (60-115)
[2024-08-05 04:00] VITALS: RESP 16
--- NOTE | 2024-08-05 04:14 | ED.GENADULT ---
HPI - General Adult General Chief complaint: General Medical Stated complaint: hypoglcymia Time Seen by Provider: 08/05/24 04:08 Source: patient and EMS Mode of arrival: EMS Limitations: no limitations History of Present Illness ED Provider: Dr. Paige Serna HPI narrative: Patient comes to the emergency room complaining of hypoglycemia. Patient known to be type 1 diabetic. Patient states that earlier today his glucose was 350, took 4 units of insulin and started walking to walk. Patient states that while he was walking to work he was not feeling well, his glucose dropped to [address] way down to 60. That is when patient called EMS. EMS gave him 2 rounds of p.o. glucose. At this time, patient feeling better. Related Data Home Medications ?Medication ?Instructions ?Recorded ?Confirmed pantoprazole 40 mg tablet,delayed 40 mg PO DAILY@0630 12/19/22 06/01/23 release (Protonix) promethazine 25 mg tablet 25 mg PO TID PRN nausea/vomiting 01/23/23 06/01/23 acetaminophen 500 mg tablet 500 mg PO Q6H PRN 04/09/24 Previous Rx's ?Medication ?Instructions ?Recorded ketorolac 10 mg tablet 10 mg PO TID PRN pain 5 days #15 05/04/23 tabs ondansetron 4 mg disintegrating 4 mg PO DAILY PRN nausea and 02/23/24 tablet vomiting 5 days #14 tabs glucagon 3 mg/actuation nasal 3 mg intranasal BID PRN 03/28/24 spray (Baqsimi) unresponsive hypoglycemia 30 days #2 ea insulin aspart U-100 100 unit/mL 1 sliding scale dose subcut TID 30 03/28/24 (3 mL) subcutaneous pen (Novolog days #9 mL FlexPen U-100 Insulin aspart) insulin degludec 200 unit/mL (3 20 unit (0.1 mL) subcut DAILY 30 03/28/24 mL) subcutaneous pen (Tresiba days #6 mL FlexTouch U-200 insulin) albuterol sulfate 90 mcg/actuation 2 puff inhalation QID PRN 04/13/24 aerosol inhaler shortness of breath or wheezing #6.7 grams cyclobenzaprine 10 mg tablet 10 mg PO TID #10 tabs 05/07/24 gabapentin 100 mg capsule 100 mg PO TID #30 caps 05/07/24 acetone (urine) test (Ketone Urine #25 ea 06/19/24 Test strips) blood-glucose meter,continuous #1 ea 06/19/24 (Dexcom G7 Split And Drum Room Supervisor) blood-glucose sensor (Dexcom G7 #6 ea 06/19/24 Sensor device) glucagon 3 mg/actuation nasal 3 mg intranasal ONCE PRN 06/19/24 spray (Baqsimi) unresponsive hypoglycemia 30 days #2 ea ketorolac 10 mg tablet 10 mg PO Q8H PRN pain #10 tabs 07/31/24 levofloxacin 500 mg tablet 500 mg PO DAILY #10 tabs 07/31/24 ondansetron 4 mg disintegrating 4 mg PO Q8H PRN nausea and 07/31/24 tablet vomiting #10 tabs Allergies Allergy/AdvReac Type Severity Reaction Status Date / Time diphenhydramine Allergy Anaphylaxis Verified 08/05/24 02:02 [From Benadryl] haloperidol [From Haldol] Allergy Difficulty Verified 08/05/24 02:02 Swallowing metoclopramide [From Reglan] AdvReac Anxiety Verified 08/05/24 02:02 Review of Systems Review of Systems: Constitutional : No Weight loss, No Fever, No Chills, No Night Sweats, No Fatigue, No Malaise ENT/Mouth : No Hearing loss, No Ear Pain, No Nasal Congestion, No Sinus Pain, No Hoarseness, No sore throat, No Rhinorrhea, No Swallowing Difficulty Eyes: No Eye Pain, No Swelling, No Redness, No Foreign Body, No Discharge, No Vision Changes Cardiovascular : No Chest Pain, No SOB, No Dyspnea on Exertion, No Orthopnea, No Edema, No Palpitations Respiratory : No Cough, No Sputum, No Wheezing, No Smoke Exposure, No Dyspnea Gastrointestinal : No Nausea, No Vomiting, No Diarrhea, No Constipation, No abdominal Pain, No Hematochezia, No Melena Genitourinary : no irregular bleeding, No Dysuria, No Urinary Frequency, No Hematuria, No Urinary Incontinence, No Urgency, No Flank Pain, No Urinary Flow Changes, No Hesitancy Musculoskeletal : No joint pain, No Myalgias, No Joint Swelling Skin : No Skin Lesions, No rash Neuro : No Weakness, No Numbness, No Paresthesias, No Loss of Consciousness, No Dizziness, No Headache Psych : No Anxiety/Panic, No Depression, No SI/HI/AH/VH, No Social Issues, Heme/Lymph: No Bruising, No Bleeding,No Lymphadenopathy Endocrine : Complaining of hypoglycemia [facility] Past Medical History Medical History Dental infection Abdominal pain Colitis DKA (diabetic ketoacidosis) Hyperglycemia 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 type 1 Social History Social History Household Members: Other Household Members Other:: cousin Housing: House Do you presently have visiting nurse or other home services: No Alcohol intake: current Alcohol intake frequency: holidays/special occasions only Patient Tobacco Use Status: Current everyday Tobacco user Tobacco use type: Cigarette Cigarette Packs Per Day: 0 Cigarettes Per Day: 0 Years Smoked: 10 Smoked in Last 30 Days: Yes e-Cigarette/Vaping Use: Never Used Second Hand Smoke Exposure: No Substance Use Type: Marijuana Substance Use Frequency: Daily Substance Use Frequency Other:: daily just smoked yesterday morning Any prior treatment program specific to substance use: No Advance Directives: No Advance Directives Information Provided: Yes Do you have a plan to hurt others: No Plan service: No Current occupational status: employed 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 Oriented X3. No acute distress. Eyes: Pupils equal, round and reactive to light. ENT: Pharynx normal. Neck: Normal inspection. Neck supple. No lymph nodes noted. No crepitus CVS: Normal heart rate and rhythm. Pulses normal. Normal S1 and S2 Respiratory: No respiratory distress. Breath sounds normal. No Wheezing. No rales Abdomen: Soft and nontender. No rigidity. No distention. Skin: Skin warm and dry. Normal skin color. Normal skin turgor. Extremities: No lower extremity edema. No Lacerations. No Rash Neuro: Oriented X 3. No motor deficit. No sensory deficit. Moving all extremities. No slurred speech. CN 2 through 12 grossly intact Psych: calm, cooperative, normal affect Medical Decision Making Medical Decision Making [facility] [place] Narrative: My interpretation of labs: Patient's hematology and chemistry within normal limits, glucose improved up to 175, prior to discharge 09/03, patient asymptomatic. Patient tolerating well p.o.. Lab Data [facility] [place] Lab Attestation statement: I reviewed the patient's lab results. 08/05/24 02:10 08/05/24 02:10 Labs: Lab Results 08/05/24 08/05/24 08/05/24 Range/Units 01:59 02:10 02:20 WBC 7.9 (4.8-10.8) X10*3/uL RBC 4.71 (4.60-5.80) X10*6/uL Hgb 12.3 L (14.0-18.0) g/dl Hct 37.3 L (42.0-52.0) % MCV 79.2 L (80.0-98.0) fL MCH 26.1 L (27.0-33.0) pg MCHC 33.0 (31.0-36.0) g/dl RDW 14.3 (11.0-16.0) % Plt Count 282 (160-400) X10*3/uL MPV 9.8 (9.4-12.4) fL Immature Gran % (Auto) 0.1 (0.0-0.4) % Neut % (Auto) 59.4 (45-73) % Lymph % (Auto) 31.2 (20-40) % Steele % (Auto) 6.5 (2-11) % Eos % (Auto) 2.2 (0-4) % Baso % (Auto) 0.6 (0-2) % Lymph # (Auto) 2.5 (1.2-4.9) X10*3/uL [place] # (Auto) 0.5 (0.1-1.2) X10*3/uL Eos # (Auto) 0.2 (0.0-0.4) X10*3/uL Baso # (Auto) 0.1 (0.0-0.2) X10*3/uL Abs Immat Gran (auto) 0.01 (0.00-0.03) X10*3/uL Absolute Neuts (auto) 4.7 (2.0-8.3) x10*3/uL Absolute Nucleated RBC 0.000 (0.0-0.012) X10*3/uL Nucleated RBC % (auto) 0.0 (0.0-0.2) /100WBC Sodium 140 (135-145) mmol/L Potassium 3.6 (3.3-5.1) mmol/L Chloride 105 (96-108) mmol/L Carbon Dioxide 27 (22-29) mmol/L Anion Gap 12 (12-20) BUN 15 (9-16) mg/dL Creatinine 0.87 (0.5-1.4) mg/dL Estim Creat Clear Calc 116.5 Estimated GFR > 60 POC Glucose 77 (60-115) mg/dL Random Glucose 88 (60-115) mg/dL Calcium 9.1 (8.4-10.2) mg/dL Lipase 6 L (8-78) U/L Hold Red Top See Note Urine Color Yellow Urine Appearance Clear Urine pH 6.5 (5.0-9.0) Ur Specific [place] 1.025 (1.005-1.025) Urine Protein 30 (1+) H (Neg-Trace) mg/dL Urine Glucose (UA) >=1000 H (Negative) mg/dL Urine Ketones Negative (Negative) mg/dL Urine Blood Negative (Negative) Urine Nitrite Negative (Negative) Ur Leukocyte Esterase Negative (Negative) Urine RBC 0-2 (0-2) /HPF Urine WBC 0-5 (0-5) /HPF Ur Squamous Epith Cells 0-2 (0-2) /HPF Urine Bacteria None Seen (None Seen) Hyaline Casts 0-2 (0-2) /LPF 08/05/24 Range/Units 03:02 WBC (4.8-10.8) X10*3/uL RBC (4.60-5.80) X10*6/uL Hgb (14.0-18.0) g/dl Hct (42.0-52.0) % MCV (80.0-98.0) fL MCH (27.0-33.0) pg MCHC (31.0-36.0) g/dl RDW (11.0-16.0) % Plt Count (160-400) X10*3/uL MPV (9.4-12.4) fL Immature Gran % (Auto) (0.0-0.4) % Neut % (Auto) (45-73) % Lymph % (Auto) (20-40) % Steele % (Auto) (2-11) % Eos % (Auto) (0-4) % Baso % (Auto) (0-2) % Lymph # (Auto) (1.2-4.9) X10*3/uL [place] # (Auto) (0.1-1.2) X10*3/uL Eos # (Auto) (0.0-0.4) X10*3/uL Baso # (Auto) (0.0-0.2) X10*3/uL Abs Immat Gran (auto) (0.00-0.03) X10*3/uL Absolute Neuts (auto) (2.0-8.3) x10*3/uL Absolute Nucleated RBC (0.0-0.012) X10*3/uL Nucleated RBC % (auto) (0.0-0.2) /100WBC Sodium (135-145) mmol/L Potassium (3.3-5.1) mmol/L Chloride (96-108) mmol/L Carbon Dioxide (22-29) mmol/L Anion Gap (12-20) BUN (9-16) mg/dL Creatinine (0.5-1.4) mg/dL Estim Creat Clear Calc Estimated GFR POC Glucose 175 H (60-115) mg/dL Random Glucose (60-115) mg/dL Calcium (8.4-10.2) mg/dL Lipase (8-78) U/L Hold Red Top Urine Color Urine Appearance Urine pH (5.0-9.0) Ur Specific [place] (1.005-1.025) Urine Protein (Neg-Trace) mg/dL Urine Glucose (UA) (Negative) mg/dL Urine Ketones (Negative) mg/dL Urine Blood (Negative) Urine Nitrite (Negative) Ur Leukocyte Esterase (Negative) Urine RBC (0-2) /HPF Urine WBC (0-5) /HPF Ur Squamous Epith Cells (0-2) /HPF Urine Bacteria (None Seen) Hyaline Casts (0-2) /LPF Discharge Plan Discharge Clinical Impression: Hypoglycemia Patient Disposition: Home, Self-Care Instructions: What to Do if Your Blood Sugar is Low (ED) Additional Instructions: Please follow-up with your primary care physician tomorrow. If you have any worsening or new symptoms, please return to the emergency room or call 911 Prescriptions: No Action (DME) Dexcom G7 Sensor Device See Rx Instructions .ROUTE .MEDSUPPLY Qty: 6 6RF Rx Instructions: As directed every 10 days (DME) Dexcom G7 Split And Drum Room Supervisor Misc See Rx Instructions .ROUTE .MEDSUPPLY Qty: 1 1RF Rx Instructions: As directed (DME) Ketone Urine Test Strip See Rx Instructions .ROUTE .MEDSUPPLY Qty: 25 3RF Rx Instructions: As directed prn glucose over 250, nausea/vomiting tid Baqsimi 3 mg/actuation spray,non-aerosol 3 mg intranasal ONCE MDD 6mg may repeat in 15 minutes PRN (Reason: unresponsive hypoglycemia) 30 Days Qty: 2 1RF pantoprazole [Protonix] 40 mg tablet,delayed release (DR/EC) 40 mg PO DAILY@0630 promethazine 25 mg tablet 25 mg PO TID PRN (Reason: nausea/vomiting) ketorolac 10 mg tablet 10 mg PO TID PRN (Reason: pain) 5 Days Qty: 15 0RF ondansetron 4 mg tablet,disintegrating 4 mg PO DAILY PRN (Reason: nausea and vomiting) 5 Days Qty: 14 0RF albuterol sulfate 90 mcg/actuation HFA aerosol inhaler 2 puff inhalation QID PRN (Reason: shortness of breath or wheezing) Qty: 6.7 0RF gabapentin 100 mg capsule 100 mg PO TID Qty: 30 0RF cyclobenzaprine 10 mg tablet 10 mg PO TID Qty: 10 0RF levofloxacin 500 mg tablet 500 mg PO DAILY Qty: 10 0RF ondansetron 4 mg tablet,disintegrating 4 mg PO Q8H PRN (Reason: nausea and vomiting) Qty: 10 0RF ketorolac 10 mg tablet 10 mg PO Q8H PRN (Reason: pain) Qty: 10 0RF Rx Instructions: maximum total duration of 5 days from all oral, intranasal, or parenteral formulations acetaminophen 500 mg tablet 500 mg PO Q6H PRN insulin aspart U-100 [Novolog FlexPen U-100 Insulin] 100 unit/mL (3 mL) insulin pen 1 sliding scale dose subcut TID 30 Days Qty: 9 3RF Rx Instructions: 1 sliding scale dose subcutaneously; 1 unit for every 35 points over 135, 1:15 ratio (uses approx 20-25 units daily) Baqsimi 3 mg/actuation spray,non-aerosol 3 mg intranasal BID MDD 6mg PRN (Reason: unresponsive hypoglycemia) 30 Days Qty: 2 1RF Rx Instructions: P.R.N. for unresponsive hypoglycemia. Check to see if patient breathing and pulse, initiate CPR if needed. Call 911. Use when patient can not self treat low sugar. [place] once, position lying on the side, repeat again in 15 minutes. insulin degludec [Tresiba FlexTouch U-200] 200 unit/mL (3 mL) insulin pen 20 unit subcut DAILY 30 Days Qty: 6 6RF Stand Alone Forms: Work/School Release Print Language: Cook Islander
[2024-08-05 04:15] LABS: Glucose, Whole Blood 114 mg/dL (60-115)
[2024-08-05 04:26] VITALS: BP 000/00; PULSE 0; RESP 16; TEMP -17.7; TEMP 0; O2SAT 0
== END 2024-08-05 04:26 | disposition home or self-care (01) ==
PROVIDERS: Emergency Provider Emergency Medicine; PCP Registered Nurse
DX: E10.649 Type 1 diabetes mellitus with hypoglycemia without coma (principal); F17.210 Nicotine dependence, cigarettes, uncomplicated; Z79.4 Long term (current) use of insulin; Z79.899 Other long term (current) drug therapy
CPT/HCPCS: 36415; 80048; 81001; 82947; 83690; 85025; 99283; 99284

== ENCOUNTER 2024-08-07 04:05 | Emergency (ER) | payer MEDICAID, SELFPAY ==
--- NOTE | ~2024-08-07 | XR_ITS ---
EXAMINATION: XR KNEE, LEFT CLINICAL INFORMATION: Pain with bearing weight x2w. COMPARISON: None available. TECHNIQUE: 2 views of the left knee. FINDINGS: Small joint effusion. Multiple sclerotic foci overlying the distal femur as well as sclerotic foci proximal tibia, possibly bone islands. Minimal narrowing of the medial compartment. XR/XR knee LT 2V IMPRESSION: 1 Small joint effusion. 2. Multiple sclerotic foci overlying the distal femur as well as sclerotic foci proximal tibia, possibly bone islands. 3. Minimal narrowing of the medial compartment. This study was presented today to August 07, 2024 for interpretation. Stat results provided at this time as requested by referring provider. Electronically signed by: Layla Head MD 08/07/2024 09:10 AM [facility]
[2024-08-07 04:14] VITALS: BP 124/93; BP 132/84; PULSE 84; PULSE 91; RESP 22; TEMP 36.7; O2SAT 100; O2SAT 99; BMI 18.4
[2024-08-07 04:18] VITALS: BP 124/93; PULSE 84; RESP 18; TEMP 36.5; O2SAT 100
[2024-08-07 04:22] VITALS: RESP 22
[2024-08-07 04:48] LABS: Basophils Percent Auto 0.6 % (0-2); Eosinophils Absolute Auto 0.1 X10*3/uL (0.0-0.4); Eosinophils Percent Auto 1.3 % (0-4); Hematocrit 34.4 % (42.0-52.0); Hemoglobin 11.5 g/dl (14.0-18.0); Imm Gran Abs Auto 0.02 X10*3/uL (0.00-0.03); Imm Gran Pct Auto 0.3 % (0.0-0.4); Lymphocytes Absolute Auto 1.7 X10*3/uL (1.2-4.9); Lymphocytes Percent Auto 24.8 % (20-40); MANUAL DIFF FLAG NO; Mean Corpuscular HGB Conc 33.4 g/dl (31.0-36.0); Mean Corpuscular Volume 77.7 fL (80.0-98.0); Mean Platelet Volume 9.4 fL (9.4-12.4); Monocytes Absolute Auto 0.4 X10*3/uL (0.1-1.2); Monocytes Percent Auto 6.1 % (2-11); Neutrophils Absolute Auto 4.5 x10*3/uL (2.0-8.3); Neutrophils Percent Auto 66.9 % (45-73); Platelet Count 242 X10*3/uL (160-400); Red Blood Count 4.43 X10*6/uL (4.60-5.80); Red Cell Distribution Width 14.3 % (11.0-16.0); White Blood Count 6.7 X10*3/uL (4.8-10.8)
[2024-08-07 04:48] LABS: Glucose, Whole Blood 170 mg/dL (60-115)
--- NOTE | 2024-08-07 04:50 | ED_ITS ---
HPI - Abdominal Pain General Chief Complaint: Abdominal Pain Stated Complaint: LEFT FLANK PAIN Time Seen by Provider: 08/07/24 04:49 Source: patient Mode of arrival: EMS Limitations: no limitations History of Present Illness ED Provider: HPI narrative: Patient is diabetic with gastroparesis been here multiple times at least 5 times for multiple complaints he is status post appendectomy comes here for left flank pain started prior to arrival patient has previous CT scan on 03/13 which was negative for stone patient does have chronic back pain patient complains of back pain is shooting to the neck no urinary complaints arrival patient has been sleeping patient has been trying for to get disability has lost 8 jobs in last 2 years Related Data Home Medications ?Medication ?Instructions ?Recorded ?Confirmed pantoprazole 40 mg tablet,delayed 40 mg PO DAILY@0630 12/19/22 06/01/23 release (Protonix) promethazine 25 mg tablet 25 mg PO TID PRN nausea/vomiting 01/23/23 06/01/23 acetaminophen 500 mg tablet 500 mg PO Q6H PRN 04/09/24 Previous Rx's ?Medication ?Instructions ?Recorded ketorolac 10 mg tablet 10 mg PO TID PRN pain 5 days #15 05/04/23 tabs ondansetron 4 mg disintegrating 4 mg PO DAILY PRN nausea and 02/23/24 tablet vomiting 5 days #14 tabs glucagon 3 mg/actuation nasal 3 mg intranasal BID PRN 03/28/24 spray (Baqsimi) unresponsive hypoglycemia 30 days #2 ea insulin aspart U-100 100 unit/mL 1 sliding scale dose subcut TID 30 03/28/24 (3 mL) subcutaneous pen (Novolog days #9 mL FlexPen U-100 Insulin aspart) insulin degludec 200 unit/mL (3 20 unit (0.1 mL) subcut DAILY 30 03/28/24 mL) subcutaneous pen (Tresiba days #6 mL FlexTouch U-200 insulin) albuterol sulfate 90 mcg/actuation 2 puff inhalation QID PRN 04/13/24 aerosol inhaler shortness of breath or wheezing #6.7 grams cyclobenzaprine 10 mg tablet 10 mg PO TID #10 tabs 05/07/24 gabapentin 100 mg capsule 100 mg PO TID #30 caps 05/07/24 acetone (urine) test (Ketone Urine #25 ea 06/19/24 Test strips) blood-glucose meter,continuous #1 ea 06/19/24 (Dexcom G7 Drupal Web Developer) blood-glucose sensor (Dexcom G7 #6 ea 06/19/24 Sensor device) glucagon 3 mg/actuation nasal 3 mg intranasal ONCE PRN 06/19/24 spray (Baqsimi) unresponsive hypoglycemia 30 days #2 ea ketorolac 10 mg tablet 10 mg PO Q8H PRN pain #10 tabs 07/31/24 levofloxacin 500 mg tablet 500 mg PO DAILY #10 tabs 07/31/24 ondansetron 4 mg disintegrating 4 mg PO Q8H PRN nausea and 07/31/24 tablet vomiting #10 tabs Allergies Allergy/AdvReac Type Severity Reaction Status Date / Time diphenhydramine Allergy Anaphylaxis Verified 08/07/24 04:17 [From Benadryl] haloperidol [From Haldol] Allergy Difficulty Verified 08/07/24 04:17 Swallowing metoclopramide [From Reglan] AdvReac Anxiety Verified 08/07/24 04:17 Review of Systems Review of Systems Yes all other systems are reviewed and are negative PMFSH Past Medical History Medical History Dental infection Abdominal pain Colitis DKA (diabetic ketoacidosis) Hyperglycemia 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 type 1 Social History Social History Household Members: Other Household Members Other:: cousin Housing: House Do you presently have visiting nurse or other home services: No Alcohol intake: current Alcohol intake frequency: holidays/special occasions only Patient Tobacco Use Status: Current everyday Tobacco user Tobacco use type: Cigarette Cigarette Packs Per Day: 0 Cigarettes Per Day: 0 Years Smoked: 10 Smoked in Last 30 Days: Yes e-Cigarette/Vaping Use: Never Used Second Hand Smoke Exposure: No Use of substances other than those prescribed or required for medical reasons: Yes Substance Use Type: Marijuana Advance Directives: No Do you have a plan to hurt others: No Plan service: No Current occupational status: employed 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 Oriented X3. No acute distress. Looks depressed Eyes: PERRLA, No Nystagmus ENT: Pharynx normal. Oral Mucosa moist Neck: Normal inspection. Neck supple. CVS: Normal heart rate and rhythm. Pulses normal. Respiratory: No respiratory distress. Equal air entry bilateral, no wheezing/rales/rhonchi Abdomen: Soft and nontender. Bowel sounds are present, no mass palpable, tenderness left flank area Skin: Skin warm and dry. Normal skin color. Normal skin turgor. Extremities: No lower extremity edema. No calf tenderness Neuro: Oriented X 3. No motor deficit. Medical Decision Making Medical Decision Making [facility] Narrative: Patient with multiple complaints with back problems with history of same in the past CT scan negative for kidney stone in the past under social stress looking for disability patient is medically cleared will discharge patient refused to give urine sample Differential Diagnosis Differential Diagnoses: The differential diagnosis associated with the presentation includes Lab Data MDM Lab Attestation statement: I reviewed the patient's lab results. 08/07/24 04:39 08/07/24 04:39 Labs: Lab Results 08/07/24 08/07/24 Range/Units 04:31 04:39 WBC 6.7 (4.8-10.8) X10*3/uL RBC 4.43 L (4.60-5.80) X10*6/uL Hgb 11.5 L (14.0-18.0) g/dl Hct 34.4 L (42.0-52.0) % MCV 77.7 L (80.0-98.0) fL MCH 26.0 L (27.0-33.0) pg MCHC 33.4 (31.0-36.0) g/dl RDW 14.3 (11.0-16.0) % Plt Count 242 (160-400) X10*3/uL MPV 9.4 (9.4-12.4) fL Immature Gran % (Auto) 0.3 (0.0-0.4) % Neut % (Auto) 66.9 (45-73) % Lymph % (Auto) 24.8 (20-40) % [place] % (Auto) 6.1 (2-11) % Eos % (Auto) 1.3 (0-4) % Baso % (Auto) 0.6 (0-2) % Lymph # (Auto) 1.7 (1.2-4.9) X10*3/uL [place] # (Auto) 0.4 (0.1-1.2) X10*3/uL Eos # (Auto) 0.1 (0.0-0.4) X10*3/uL Baso # (Auto) 0.0 (0.0-0.2) X10*3/uL Abs Immat Gran (auto) 0.02 (0.00-0.03) X10*3/uL Absolute Neuts (auto) 4.5 (2.0-8.3) x10*3/uL Absolute Nucleated RBC 0.000 (0.0-0.012) X10*3/uL Nucleated RBC % (auto) 0.0 (0.0-0.2) /100WBC Sodium 137 (135-145) mmol/L Potassium 4.0 (3.3-5.1) mmol/L Chloride 105 (96-108) mmol/L Carbon Dioxide 24 (22-29) mmol/L Anion Gap 12 (12-20) BUN 12 (9-16) mg/dL Creatinine 0.66 (0.5-1.4) mg/dL Estim Creat Clear Calc 145.3 Estimated GFR > 60 POC Glucose 170 H (60-115) mg/dL Random Glucose 182 H (60-115) mg/dL Calcium 9.1 (8.4-10.2) mg/dL Total Bilirubin 0.3 (0.0-1.0) mg/dL AST 21 (5-37) U/L ALT 14 (0-40) U/L Alkaline Phosphatase 58 (39-117) U/L Total Protein 6.6 (6.5-8.0) g/dL Albumin 4.0 (3.5-5.0) g/dL Lipase 4 L (8-78) U/L Medications Administered Discontinued Medications Generic Name Dose Route Start Last Admin Trade Name Freq PRN Reason Stop Dose Admin Sodium Chloride 1,000 mls @ 999 mls/hr 08/07/24 04:51 08/07/24 05:12 Ns IV 08/07/24 05:51 999 mls/hr .Q1H1M ONE Administration Ketorolac Tromethamine 30 mg 08/07/24 04:51 08/07/24 05:12 Ketorolac Tromethamine 30 Mg/Ml Vial IVPUSH 08/07/24 04:52 30 mg ONCE ONE Administration Discharge Plan Discharge Clinical Impression: Chronic back pain Patient Disposition: Home, Self-Care Instructions: Chronic Back Pain (DC) Additional Instructions: Continue medications as prescribed follow up with your PCP Prescriptions: No Action (DME) Dexcom G7 Sensor Device See Rx Instructions .ROUTE .MEDSUPPLY Qty: 6 6RF Rx Instructions: As directed every 10 days (DME) Dexcom G7 Drupal Web Developer Misc See Rx Instructions .ROUTE .MEDSUPPLY Qty: 1 1RF Rx Instructions: As directed (DME) Ketone Urine Test Strip See Rx Instructions .ROUTE .MEDSUPPLY Qty: 25 3RF Rx Instructions: As directed prn glucose over 250, nausea/vomiting tid Baqsimi 3 mg/actuation spray,non-aerosol 3 mg intranasal ONCE MDD 6mg may repeat in 15 minutes PRN (Reason: unresponsive hypoglycemia) 30 Days Qty: 2 1RF pantoprazole [Protonix] 40 mg tablet,delayed release (DR/EC) 40 mg PO DAILY@0630 promethazine 25 mg tablet 25 mg PO TID PRN (Reason: nausea/vomiting) ketorolac 10 mg tablet 10 mg PO TID PRN (Reason: pain) 5 Days Qty: 15 0RF ondansetron 4 mg tablet,disintegrating 4 mg PO DAILY PRN (Reason: nausea and vomiting) 5 Days Qty: 14 0RF albuterol sulfate 90 mcg/actuation HFA aerosol inhaler 2 puff inhalation QID PRN (Reason: shortness of breath or wheezing) Qty: 6.7 0RF gabapentin 100 mg capsule 100 mg PO TID Qty: 30 0RF cyclobenzaprine 10 mg tablet 10 mg PO TID Qty: 10 0RF levofloxacin 500 mg tablet 500 mg PO DAILY Qty: 10 0RF ondansetron 4 mg tablet,disintegrating 4 mg PO Q8H PRN (Reason: nausea and vomiting) Qty: 10 0RF ketorolac 10 mg tablet 10 mg PO Q8H PRN (Reason: pain) Qty: 10 0RF Rx Instructions: maximum total duration of 5 days from all oral, intranasal, or parenteral formulations acetaminophen 500 mg tablet 500 mg PO Q6H PRN insulin aspart U-100 [Novolog FlexPen U-100 Insulin] 100 unit/mL (3 mL) insulin pen 1 sliding scale dose subcut TID 30 Days Qty: 9 3RF Rx Instructions: 1 sliding scale dose subcutaneously; 1 unit for every 35 points over 135, 1:15 ratio (uses approx 20-25 units daily) Baqsimi 3 mg/actuation spray,non-aerosol 3 mg intranasal BID MDD 6mg PRN (Reason: unresponsive hypoglycemia) 30 Days Qty: 2 1RF Rx Instructions: P.R.N. for unresponsive hypoglycemia. Check to see if patient breathing and pulse, initiate CPR if needed. Call 911. Use when patient can not self treat low sugar. [place] once, position lying on the side, repeat again in 15 minutes. insulin degludec [Tresiba FlexTouch U-200] 200 unit/mL (3 mL) insulin pen 20 unit subcut DAILY 30 Days Qty: 6 6RF Print Language: Czech
[2024-08-07 05:08] LABS: Alanine Aminotransferase 14 U/L (0-40); Alkaline Phosphatase 58 U/L (39-117); Anion Gap 12 (12-20); Aspartate Amino Transferase 21 U/L (5-37); Bilirubin Total 0.3 mg/dL (0.0-1.0); Blood Urea Nitrogen 12 mg/dL (9-16); Calcium 9.1 mg/dL (8.4-10.2); Carbon Dioxide 24 mmol/L (22-29); Chloride 105 mmol/L (96-108); Creatinine Clr Calc Pharmacy 145.3; Estimated Glomerular Filt Rate > 60; Glucose Random 182 mg/dL (60-115); Lipase 4 U/L (8-78); Sodium 137 mmol/L (135-145); Total Protein 6.6 g/dL (6.5-8.0)
[2024-08-07] MEDS: 0.9 % Sodium Chloride 1,000 ML 999 ML IV (05:12)
[2024-08-07] MEDS: Ketorolac Tromethamine 30 MG/ML VIAL IVPUSH (05:12)
[2024-08-07 06:48] VITALS: BP 128/80; PULSE 81; RESP 16; TEMP 36.8; O2SAT 98
--- NOTE | 2024-08-07 06:57 | PC.NURSE ---
PT declined providing urine sample. States he doesnt want to talk to the doctor that doesnt believe him.
[2024-08-07 06:59] VITALS: BP 128/80; PULSE 81; RESP 16; TEMP 36.8; O2SAT 98
== END 2024-08-07 07:13 | disposition home or self-care (01) ==
PROVIDERS: Emergency Provider Internal Medicine; PCP Internal Medicine Geriatric Medicine
DX: R10.2 Pelvic and perineal pain (principal); M54.50 Low back pain, unspecified; M25.562 Pain in left knee; E10.9 Type 1 diabetes mellitus without complications; F17.210 Nicotine dependence, cigarettes, uncomplicated; Z79.4 Long term (current) use of insulin; Z79.899 Other long term (current) drug therapy
CPT/HCPCS: 36415; 73560; 80053; 82947; 83690; 85025; 96374; 99284; 99285; J1885

== ENCOUNTER 2024-08-26 14:50 | Outpatient (AMB) | payer MEDICAID, SELFPAY ==
--- NOTE | 2024-08-26 14:50 | A.OFFVIS_ITS ---
Intake Visit Reasons: Gastroesophageal reflux disease (GERD) Intake Note: Bradford presents as a telehealth for GERD. CC: diarrhea - states that he feels it stems from the acid build up in his stomach. He notices when he wakes up he has a lot of acid in his stomach. Allergies diphenhydramine [From Benadryl] Allergy (Verified 08/07/24 04:17) Anaphylaxis haloperidol [From Haldol] Allergy (Verified 08/07/24 04:17) Difficulty Swallowing metoclopramide [From Reglan] Adverse Reaction (Verified 08/07/24 04:17) Anxiety HPI Comments Details: 29 y.o M who is being seen as televisit for callahan' esophagus . 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 Had EGD at [facility] in [place]. Taking pantoprazole 40 daily but has poor control of sx. Main sx are abd pain assoc with urge to defecate or throw up. Has some correlation with the diet and activity. + bloating. Stools are loose. No blood. Has DM and based on labs, control appears suboptimal. Laboratory Tests 08/05/24 08/07/24 02:20 04:39 WBC 6.7 Hgb 11.5 L Hct 34.4 L MCV 77.7 L Plt Count 242 Random Glucose 182 H Lipase 4 L Urine Protein 30 (1+) H Urine Glucose (UA) >=1000 H FORMERLY [facility], [facility]–1983 Medical History (Updated 08/26/24 @ 16:28 by Zhane Cervantes MD) Abdominal pain Dental infection Colitis DKA (diabetic ketoacidosis) Hyperglycemia Left against medical advice Callahan esophagus Diabetes mellitus type 1 Surgical History History of esophagogastroduodenoscopy (EGD) Family History (Updated 08/26/24 @ 14:52 by VETO Honeycutt) Paternal Grandmother Breast cancer Family/Other Brain cancer Social History Household Members: Other Household Members Other:: cousin Housing: House Do you presently have visiting nurse or other home services: No Alcohol intake: current Alcohol intake frequency: holidays/special occasions only Patient Tobacco Use Status: Current everyday Tobacco user Tobacco use type: Cigarette Cigarette Packs Per Day: 0 Cigarettes Per Day: 0 Years Smoked: 10 e-Cigarette/Vaping Use: Never Used Second Hand Smoke Exposure: No Substance Use Type: Marijuana service: No Current occupational status: employed 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 Review of Systems Const All systems reviewed & are unremarkable except as noted in HPI and below Physical Exam Vital Signs: Video visit: No acute distress No icterus noted No facial asymmetry Speaking in full sentences Telehealth Telehealth Telehealth Platform: [employer] Location of provider rendering services: practice address Location of patient: address on file Patient Identification confirmed using: Name, : Yes Telehealth method: video Patient verbally consented to treatment: Yes Patient verbally consented to billing insurance company: Yes Patient informed of any privacy concerns related to visit: Yes Minutes spent on Phone/Video with Pt.: 17 Assessment & Plan Assessment & Plan (1) Abdominal pain: Code(s): R10.9 - Unspecified abdominal pain Category: Medical (2) Microcytic anemia: Code(s): D50.9 - Iron deficiency anemia, unspecified Category: Medical (3) Callahan esophagus: Code(s): K22.70 - Callahan's esophagus without dysplasia Category: Medical (4) Diabetes mellitus type 1: Code(s): E10.9 - Type 1 diabetes mellitus without complications Category: Medical (5) GERD (gastroesophageal reflux disease): Code(s): K21.9 - Gastro-esophageal reflux disease without esophagitis Category: Medical (6) Change in bowel habit: Code(s): R19.4 - Change in bowel habit Category: Medical Plan Main issue appears to be frequent abd pain with nausea assoc with urgency to defecate. Ddx include celiac, IBD, gastroparesis, IBS, diabetic diarrhea, gallstones. Pt also noted to have microcytic anemia on labs, will get nutritional panel. Plan: - Labs as below - US ABd - Barium swallow - Avoid NSAIDs and smoking - Cont ppi Follow up 8 weeks Orders: Orders Immunoglobulin A 08/26/24 K21.9 - Gastro-esophageal reflux disease without esophagitis, K22.70 - Callahan's esophagus without dysplasia Transglutaminase IgA 08/26/24 K21.9 - Gastro-esophageal reflux disease without esophagitis, K22.70 - Callahan's esophagus without dysplasia HIV Ab/Ag 08/26/24 K21.9 - Gastro-esophageal reflux disease without esophagitis, K22.70 - Callahan's esophagus without dysplasia Hepatitis B Core Antibody 08/26/24 K21.9 - Gastro-esophageal reflux disease without esophagitis, K22.70 - Callahan's esophagus without dysplasia Comprehensive Met. Panel 08/26/24 K21.9 - Gastro-esophageal reflux disease without esophagitis, K22.70 - Callahan's esophagus without dysplasia Calprotectin, Fecal 08/26/24 K21.9 - Gastro-esophageal reflux disease without esophagitis, K22.70 - Callahan's esophagus without dysplasia [place] barium swallow 08/26/24 K21.9 - Gastro-esophageal reflux disease without esophagitis US abdomen complete 08/26/24 K21.9 - Gastro-esophageal reflux disease without esophagitis, R10.9 - Unspecified abdominal pain Vitamin B12 and Folate 08/26/24 D50.9 - Iron deficiency anemia, unspecified Ferritin 08/26/24 D50.9 - Iron deficiency anemia, unspecified IRON PROFILE 08/26/24 D50.9 - Iron deficiency anemia, unspecified Complete Blood Count no Diff 08/26/24 K21.9 - Gastro-esophageal reflux disease without esophagitis, K22.70 - Callahan's esophagus without dysplasia Immunoglobulin G 08/26/24 K21.9 - Gastro-esophageal reflux disease without esophagitis, K22.70 - Callahan's esophagus without dysplasia Hepatitis A IgG 08/26/24 K21.9 - Gastro-esophageal reflux disease without esophagitis, K22.70 - Callahan's esophagus without dysplasia Hemoglobin A1c 08/26/24 K21.9 - Gastro-esophageal reflux disease without esophagitis, K22.70 - Callahan's esophagus without dysplasia Hepatitis B Surface Antibody 08/26/24 K21.9 - Gastro-esophageal reflux disease without esophagitis, K22.70 - Callahan's esophagus without dysplasia Hepatitis B Surface Antigen 08/26/24 K21.9 - Gastro-esophageal reflux disease without esophagitis, K22.70 - Callahan's esophagus without dysplasia Hepatitis C Antibody 08/26/24 K21.9 - Gastro-esophageal reflux disease without esophagitis, K22.70 - Callahan's esophagus without dysplasia C Reactive Protein 08/26/24 K21.9 - Gastro-esophageal reflux disease without esophagitis, K22.70 - Callahan's esophagus without dysplasia Vitamin D 25-OH Total 08/26/24 D50.9 - Iron deficiency anemia, unspecified Medications: Discontinued ketorolac Discontinued Reason: Patient Completed Course 10 mg PO TID 5 days PRN 15 tabs 0RF pain ondansetron Discontinued Reason: Patient Completed Course 4 mg PO Q8H PRN 10 tabs 0RF nausea and vomiting ketorolac maximum total duration of 5 days from all oral, intranasal, or parenteral formulations Discontinued Reason: Patient Completed Course 10 mg PO Q8H PRN 10 tabs 0RF pain levofloxacin Discontinued Reason: Patient Completed Course 500 mg PO DAILY 10 tabs 0RF Coding Level of Care Code Tele New Pt Level 4 (53093) Diagnoses Abdominal pain R10.9 Microcytic anemia D50.9 Callahan esophagus K22.70 Diabetes mellitus type 1 E10.9 GERD (gastroesophageal reflux disease) K21.9 Change in bowel habit R19.4
== END 2024-08-26 16:06 | disposition home or self-care (01) ==
LOC: HO.HGI 14:50
PROVIDERS: PCP Internal Medicine Geriatric Medicine; Visit Provider Internal Medicine
DX: R10.9 Unspecified abdominal pain (principal); D50.9 Iron deficiency anemia, unspecified; K22.70 Barrett's esophagus without dysplasia; E10.9 Type 1 diabetes mellitus without complications; K21.9 Gastro-esophageal reflux disease without esophagitis; R19.4 Change in bowel habit
CPT/HCPCS: 99204

== ENCOUNTER → 2024-08-26 14:50 | Outpatient (BNVA) | payer MEDICAID, SELFPAY | PROVIDERS: PCP Internal Medicine Geriatric Medicine; Visit Provider Internal Medicine ==

== ENCOUNTER 2024-09-01 08:59 | Emergency (ER) | payer MEDICAID, SELFPAY ==
[2024-09-01] VITALS (9 sets, daily range): BP systolic 105–144; BP diastolic 64–96; PULSE 83–101; RESP 12–25; TEMP 36.7–37.3; O2SAT 98–100; BMI 18.0
--- NOTE | 2024-09-01 | ECG_ITS ---
Test Reason : HYPERGULCOSE Blood Pressure : */* mmHG Vent. Rate : 89 BPM Atrial Rate : 89 BPM P-R Int : 158 ms QRS Dur : 92 ms QT Int : 372 ms P-R-T Axes : * -32 62 degrees QTcB Int : 452 ms Normal sinus rhythm Left axis deviation Abnormal ECG When compared with ECG of 13-Apr-2024 13:56, No significant change was found Referred By: Generic ED Physician Electronically Signed By: Carrington Fay
--- NOTE | ~2024-09-01 | CT_ITS ---
CLINICAL HISTORY: abdominal pain CT abdomen and pelvis with contrast Comparison: None Findings: The lung bases are clear. Unremarkable gallbladder and solid organs. No urolithiasis. No bowel obstruction, pneumoperitoneum, or pneumatosis. Pelvic contents unremarkable. Normal appendix. No acute fracture. IMPRESSION: No acute findings. This document has been electronically signed by: Lance Chamberlain MD on 09/01/2024 10:50:06
--- NOTE | 2024-09-01 09:11 | ED_ITS ---
HPI - Nausea/Vomiting/Diarrhea General Chief complaint: General Medical Stated complaint: abd pain and vomiting Time Seen by Provider: 09/01/24 09:08 Source: patient Mode of arrival: EMS Limitations: no limitations History of Present Illness HPI Narrative: This is a 29 years old male with type 1 diabetes since age 12 presented to the emergency department with a chief complaint of nausea vomiting abdominal pain he has been vomiting for about 4 days. Denies any diarrhea. He has history of Gates's esophagus and he is followed by lighting fixtures decorator Dr. Cervantes. His last visit was on 08/26/2024 with GI MD elicited complaint: nausea and vomiting Onset (ago): day(s) (4) Description of vomiting: watery Associated nausea: Yes Associated abdominal pain: Yes Location of pain: diffuse Radiation: diffuse Quality: cramping Exacerbating factors: none Related Data Home Medications ?Medication ?Instructions ?Recorded ?Confirmed pantoprazole 40 mg tablet,delayed 40 mg PO DAILY@0630 12/19/22 06/01/23 release (Protonix) promethazine 25 mg tablet 25 mg PO TID PRN nausea/vomiting 01/23/23 06/01/23 acetaminophen 500 mg tablet 500 mg PO Q6H PRN 04/09/24 Previous Rx's ?Medication ?Instructions ?Recorded ondansetron 4 mg disintegrating 4 mg PO DAILY PRN nausea and 02/23/24 tablet vomiting 5 days #14 tabs glucagon 3 mg/actuation nasal 3 mg intranasal BID PRN 03/28/24 spray (Baqsimi) unresponsive hypoglycemia 30 days #2 ea insulin aspart U-100 100 unit/mL 1 sliding scale dose subcut TID 30 03/28/24 (3 mL) subcutaneous pen (Novolog days #9 mL FlexPen U-100 Insulin aspart) insulin degludec 200 unit/mL (3 20 unit (0.1 mL) subcut DAILY 30 03/28/24 mL) subcutaneous pen (Tresiba days #6 mL FlexTouch U-200 insulin) albuterol sulfate 90 mcg/actuation 2 puff inhalation QID PRN 04/13/24 aerosol inhaler shortness of breath or wheezing #6.7 grams cyclobenzaprine 10 mg tablet 10 mg PO TID #10 tabs 05/07/24 gabapentin 100 mg capsule 100 mg PO TID #30 caps 09/17/24 acetone (urine) test (Ketone Urine #25 ea 06/19/24 Test strips) blood-glucose meter,continuous #1 ea 06/19/24 (Dexcom G7 Public Information Director) blood-glucose sensor (Dexcom G7 #6 ea 06/19/24 Sensor device) glucagon 3 mg/actuation nasal 3 mg intranasal ONCE PRN 06/19/24 spray (Baqsimi) unresponsive hypoglycemia 30 days #2 ea Allergies Allergy/AdvReac Type Severity Reaction Status Date / Time diphenhydramine Allergy Anaphylaxis Verified 09/01/24 09:38 [From Benadryl] haloperidol [From Haldol] Allergy Difficulty Verified 09/01/24 09:38 Swallowing lorazepam [From Ativan] AdvReac Difficulty Verified 09/01/24 12:33 Breathing metoclopramide [From Reglan] AdvReac Anxiety Verified 09/01/24 09:38 Review of Systems 2 Constitutional: Constitutional: Reports no additional constitutional complaints ENT: Reports system reviewed and no additional complaints, except as documented Respiratory: Respiratory: Reports no additional respiratory complaints Gastrointestinal: Gastrointestinal: Reports nausea and Reports vomiting PMFSH Past Medical History Attestation statement: The following information was validated with the patient. Medical History Abdominal pain Dental infection Colitis DKA (diabetic ketoacidosis) Hyperglycemia 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 type 1 Surgical History History of esophagogastroduodenoscopy (EGD) Family History Family History Paternal Grandmother Breast cancer Family/Other Brain cancer Social History Social History Household Members: Other Household Members Other:: cousin Housing: House Do you presently have visiting nurse or other home services: No Alcohol intake: current Alcohol intake frequency: holidays/special occasions only Patient Tobacco Use Status: Current everyday Tobacco user Tobacco use type: Cigarette Cigarette Packs Per Day: 0 Cigarettes Per Day: 0 Years Smoked: 10 e-Cigarette/Vaping Use: Never Used Second Hand Smoke Exposure: No Substance Use Type: Marijuana Advance Directives: No Advance Directives Information Provided: Yes service: No Current occupational status: employed 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 Physical Exam 2 Vital Signs: Vital Signs: Last Vital Signs Temp 99.2 F 09/01/24 16:23 Pulse 86 09/01/24 16:23 Resp 18 09/01/24 16:23 BP 105/64 09/01/24 16:23 Pulse Ox 98 09/01/24 16:23 O2 Del Method Room Air 09/01/24 16:23 BMI result Body Mass Index 18.0 Mild distress Const: General: cooperative Nutritional Appearance: average body habitus Orientation/consciousness: patient oriented x3 Limitations: no limitations HEENT: Head: Yes normal to inspection Ears: hearing grossly normal bilaterally General nose exam: Normal external nose present Face and sinus: Yes normal facial exam Mouth: Normal oral and palatal mucosa present Teeth and gingiva: dentition normal Throat: Yes posterior oropharynx normal Neck: Neck: Yes normal visual inspection and Yes full ROM Chest: Chest palpation & inspection: normal inspection of the chest Resp: Effort & Inspection: normal respiratory effort Cardio: Jugular venous distension: no JVD Rate: regular rate Rhythm: r egular rhythm GI: Inspection: Yes normal to inspection Palpation (GI): Soft to palpation and not firm Auscultation: normal bowel sounds Skin: General skin exam: no rashes or lesions noted and elasticity normal L esions: no lesions Rashes: no rashes Trauma: no lacerations or abrasions Neuro: General: patient oriented x3 Course Reevaluation(s) Reevaluation #1: Still c/o nausea and vomiting signed out to Dr Bethea Time: 16:31 Medications Administered Discontinued Medications Generic Name Dose Route Start Last Admin Trade Name Wilfredo PRN Reason Stop Dose Admin Lactated Ringer's 1,000 mls @ 999 mls/hr 09/01/24 09:15 09/01/24 11:52 Lr IV 09/01/24 10:15 Infused .Q1H1M JELENA Infusion Sodium Chloride 1,000 mls @ 999 mls/hr 09/01/24 12:30 09/01/24 12:37 Ns IVCONT 09/01/24 13:30 999 mls/hr .Q1H1M JELENA Administration Insulin Human Lispro 10 unit 09/01/24 10:07 09/01/24 10:32 Insulin Lispro 100 Unit/Ml 3 Ml Vial SUBCUT 09/01/24 10:08 10 unit ONCE ONE Administration Iohexol 100 ml 09/01/24 10:06 09/01/24 10:07 Iohexol 350 Mg/Ml 100 Ml Infus..Btl IV 09/01/24 10:07 85 ml ONCE ONE Administration Ketorolac Tromethamine 15 mg 09/01/24 12:50 09/01/24 13:19 Ketorolac Tromethamine 15 Mg/Ml Vial IVPUSH 09/01/24 12:51 15 mg ONCE ONE Administration Lorazepam 1 mg 09/01/24 12:22 09/01/24 12:38 Lorazepam 2 Mg/Ml Vial IVPUSH 09/01/24 12:23 Not Given ONCE ONE Morphine Sulfate 4 mg 09/01/24 09:45 09/01/24 09:54 Morphine Sulfate 4 Mg/Ml Cartridge IVPUSH 09/01/24 09:46 4 mg ONCE ONE Administration Protocol Ondansetron HCl 4 mg 09/01/24 09:45 09/01/24 09:53 Ondansetron Hcl 4 Mg/2 Ml Vial IVPUSH 09/01/24 09:46 4 mg ONCE ONE Administration Ondansetron HCl 4 mg 09/01/24 12:22 09/01/24 12:37 Ondansetron Hcl 4 Mg/2 Ml Vial IVPUSH 09/01/24 12:23 4 mg ONCE ONE Administration Medical Decision Making Medical Decision Making [facility] Narrative: Patient presented complaining of nausea vomiting we will establish IV administer antiemetic Differential Diagnosis Differential Diagnoses: The differential diagnosis associated with the presentation includes Dehydration renal failure/DKA Admission/Observation Consideration of admission/observation: Escalation of care including admission/observation considered Lab Data [facility] Lab Attestation statement: I reviewed the patient's lab results. 09/01/24 09:30 09/01/24 09:30 Labs: Lab Results 09/01/24 09/01/24 09/01/24 Range/Units 09:10 09:30 09:34 WBC 9.3 (4.8-10.8) X10*3/uL RBC 5.56 D (4.60-5.80) X10*6/uL Hgb 14.5 D (14.0-18.0) g/dl Hct 42.8 D (42.0-52.0) % MCV 77.0 L (80.0-98.0) fL MCH 26.1 L (27.0-33.0) pg MCHC 33.9 (31.0-36.0) g/dl RDW 14.0 (11.0-16.0) % Plt Count 291 (160-400) X10*3/uL MPV 10.1 (9.4-12.4) fL Immature Gran % (Auto) 0.2 (0.0-0.4) % Neut % (Auto) 82.8 H (45-73) % Lymph % (Auto) 14.5 L (20-40) % Vernon % (Auto) 1.7 L (2-11) % Eos % (Auto) 0.2 (0-4) % Baso % (Auto) 0.6 (0-2) % Lymph # (Auto) 1.4 (1.2-4.9) X10*3/uL Vernon # (Auto) 0.2 (0.1-1.2) X10*3/uL Eos # (Auto) 0.0 (0.0-0.4) X10*3/uL Baso # (Auto) 0.1 (0.0-0.2) X10*3/uL Abs Immat Gran (auto) 0.02 (0.00-0.03) X10*3/uL Absolute Neuts (auto) 7.7 (2.0-8.3) x10*3/uL Absolute Nucleated RBC 0.000 (0.0-0.012) X10*3/uL Nucleated RBC % (auto) 0.0 (0.0-0.2) /100WBC VBG pH 7.55 H (7.32-7.43) VBG pCO2 29 mmHg VBG pO2 55 mmHg VBG HCO3 26 (22-26) mmol/L VBG O2 Saturation 84.0 % VBG Base Excess 4.7 mmol/L Sodium 136 (135-145) mmol/L Potassium 4.9 D (3.3-5.1) mmol/L Chloride 103 (96-108) mmol/L Carbon Dioxide 20 L (22-29) mmol/L Anion Gap 18 (12-20) BUN 21 H (9-16) mg/dL Creatinine 0.92 (0.5-1.4) mg/dL Estim Creat Clear Calc 101.6 Estimated GFR > 60 POC Glucose 314 H (60-115) mg/dL Random Glucose 347 H (60-115) mg/dL Calcium 10.5 H D (8.4-10.2) mg/dL Total Bilirubin 0.7 (0.0-1.0) mg/dL AST 24 (5-37) U/L ALT 18 (0-40) U/L Alkaline Phosphatase 77 (39-117) U/L Total Protein 8.4 H (6.5-8.0) g/dL Albumin 4.9 (3.5-5.0) g/dL Beta-Hydroxybutyrate 1.28 H (0.02-0.27) mmol/L 09/01/24 Range/Units 12:19 WBC (4.8-10.8) X10*3/uL RBC (4.60-5.80) X10*6/uL Hgb (14.0-18.0) g/dl Hct (42.0-52.0) % MCV (80.0-98.0) fL MCH (27.0-33.0) pg MCHC (31.0-36.0) g/dl RDW (11.0-16.0) % Plt Count (160-400) X10*3/uL MPV (9.4-12.4) fL Immature Gran % (Auto) (0.0-0.4) % Neut % (Auto) (45-73) % Lymph % (Auto) (20-40) % Vernon % (Auto) (2-11) % Eos % (Auto) (0-4) % Baso % (Auto) (0-2) % Lymph # (Auto) (1.2-4.9) X10*3/uL Vernon # (Auto) (0.1-1.2) X10*3/uL Eos # (Auto) (0.0-0.4) X10*3/uL Baso # (Auto) (0.0-0.2) X10*3/uL Abs Immat Gran (auto) (0.00-0.03) X10*3/uL Absolute Neuts (auto) (2.0-8.3) x10*3/uL Absolute Nucleated RBC (0.0-0.012) X10*3/uL Nucleated RBC % (auto) (0.0-0.2) /100WBC VBG pH (7.32-7.43) VBG pCO2 mmHg VBG pO2 mmHg VBG HCO3 (22-26) mmol/L VBG O2 Saturation % VBG Base Excess mmol/L Sodium (135-145) mmol/L Potassium (3.3-5.1) mmol/L Chloride (96-108) mmol/L Carbon Dioxide (22-29) mmol/L Anion Gap (12-20) BUN (9-16) mg/dL Creatinine (0.5-1.4) mg/dL Estim Creat Clear Calc Estimated GFR POC Glucose 172 H (60-115) mg/dL Random Glucose (60-115) mg/dL Calcium (8.4-10.2) mg/dL Total Bilirubin (0.0-1.0) mg/dL AST (5-37) U/L ALT (0-40) U/L Alkaline Phosphatase (39-117) U/L Total Protein (6.5-8.0) g/dL Albumin (3.5-5.0) g/dL Beta-Hydroxybutyrate (0.02-0.27) mmol/L Discharge Plan Discharge Clinical Impression: Vomiting Qualifiers: Vomiting type: unspecified Nausea presence: with nausea Qualified Code(s): R 11.2 - Nausea with vomiting, unspecified Patient Disposition: Still a Patient Prescriptions: No Action (DME) Dexcom G7 Sensor Device See Rx Instructions .ROUTE .MEDSUPPLY Qty: 6 6RF Rx Instructions: As directed every 10 days (DME) Dexcom G7 Public Information Director Misc See Rx Instructions .ROUTE .MEDSUPPLY Qty: 1 1RF Rx Instructions: As directed (DME) Ketone Urine Test Strip See Rx Instructions .ROUTE .MEDSUPPLY Qty: 25 3RF Rx Instructions: As directed prn glucose over 250, nausea/vomiting tid Baqsimi 3 mg/actuation spray,non-aerosol 3 mg intranasal ONCE MDD 6mg may repeat in 15 minutes PRN (Reason: unresponsive hypoglycemia) 30 Days Qty: 2 1RF pantoprazole [Protonix] 40 mg tablet,delayed release (DR/EC) 40 mg PO DAILY@0630 promethazine 25 mg tablet 25 mg PO TID PRN (Reason: nausea/vomiting) ondansetron 4 mg tablet,disintegrating 4 mg PO DAILY PRN (Reason: nausea and vomiting) 5 Days Qty: 14 0RF albuterol sulfate 90 mcg/actuation HFA aerosol inhaler 2 puff inhalation QID PRN (Reason: shortness of breath or wheezing) Qty: 6.7 0RF gabapentin 100 mg capsule 100 mg PO TID Qty: 30 0RF cyclobenzaprine 10 mg tablet 10 mg PO TID Qty: 10 0RF acetaminophen 500 mg tablet 500 mg PO Q6H PRN insulin aspart U-100 [Novolog FlexPen U-100 Insulin] 100 unit/mL (3 mL) insulin pen 1 sliding scale dose subcut TID 30 Days Qty: 9 3RF Rx Instructions: 1 sliding scale dose subcutaneously; 1 unit for every 35 points over 135, 1:15 ratio (uses approx 20-25 units daily) Baqsimi 3 mg/actuation spray,non-aerosol 3 mg intranasal BID MDD 6mg PRN (Reason: unresponsive hypoglycemia) 30 Days Qty: 2 1RF Rx Instructions: P.R.N. for unresponsive hypoglycemia. Check to see if patient breathing and pulse, initiate CPR if needed. Call 911. Use when patient can not self treat low sugar. [place] once, position lying on the side, repeat again in 15 minutes. insulin degludec [Tresiba FlexTouch U-200] 200 unit/mL (3 mL) insulin pen 20 unit subcut DAILY 30 Days Qty: 6 6RF Print Language: Burmese
[2024-09-01 09:14] LABS: Glucose, Whole Blood 314 mg/dL (60-115)
[2024-09-01 09:35] LABS: MANUAL DIFF FLAG NO
[2024-09-01 09:39] LABS: VBG Base Excess 4.7 mmol/L; VBG HCO3 26 mmol/L (22-26); VBG pCO2 29 mmHg; VBG pH 7.55 (7.32-7.43); VBG pO2 55 mmHg
[2024-09-01 09:39] LABS: Venous Blood Gas Refer to POC result
[2024-09-01] MEDS: Lactated Ringers 1,000 ML 999 ML IV ×2 (09:40→17:22)
[2024-09-01 09:42] LABS: Basophils Absolute Auto 0.1 X10*3/uL (0.0-0.2); Basophils Percent Auto 0.6 % (0-2); Eosinophils Percent Auto 0.2 % (0-4); Hematocrit 42.8 % (42.0-52.0); Hemoglobin 14.5 g/dl (14.0-18.0); Imm Gran Abs Auto 0.02 X10*3/uL (0.00-0.03); Imm Gran Pct Auto 0.2 % (0.0-0.4); Lymphocytes Absolute Auto 1.4 X10*3/uL (1.2-4.9); Lymphocytes Percent Auto 14.5 % (20-40); Mean Corpuscular HGB Conc 33.9 g/dl (31.0-36.0); Mean Corpuscular Hemoglobin 26.1 pg (27.0-33.0); Mean Platelet Volume 10.1 fL (9.4-12.4); Monocytes Absolute Auto 0.2 X10*3/uL (0.1-1.2); Monocytes Percent Auto 1.7 % (2-11); Neutrophils Absolute Auto 7.7 x10*3/uL (2.0-8.3); Neutrophils Percent Auto 82.8 % (45-73); Platelet Count 291 X10*3/uL (160-400); Red Blood Count 5.56 X10*6/uL (4.60-5.80); White Blood Count 9.3 X10*3/uL (4.8-10.8)
[2024-09-01] MEDS: ondansetron HCL 4 MG/2 ML VIAL IVPUSH ×3 (09:53→17:22)
[2024-09-01] MEDS: Morphine Sulfate 4 MG/ML CARTRIDGE IVPUSH ×3 (09:54→18:09)
[2024-09-01 09:58] LABS: Alanine Aminotransferase 18 U/L (0-40); Albumin Level 4.9 g/dL (3.5-5.0); Alkaline Phosphatase 77 U/L (39-117); Anion Gap 18 (12-20); Aspartate Amino Transferase 24 U/L (5-37); Bilirubin Total 0.7 mg/dL (0.0-1.0); Blood Urea Nitrogen 21 mg/dL (9-16); Calcium 10.5 mg/dL (8.4-10.2); Carbon Dioxide 20 mmol/L (22-29); Chloride 103 mmol/L (96-108); Creatinine Clr Calc Pharmacy 101.6; Estimated Glomerular Filt Rate > 60; Glucose Random 347 mg/dL (60-115); Potassium 4.9 mmol/L (3.3-5.1); Sodium 136 mmol/L (135-145); Total Protein 8.4 g/dL (6.5-8.0)
[2024-09-01 10:01] LABS: Beta-Hydroxybutyrate 1.28 mmol/L (0.02-0.27)
[2024-09-01] MEDS: iohexoL 350 MG/ML 100 ML INFUS..BTL IV (10:07)
[2024-09-01] MEDS: Insulin Lispro 100 UNIT/ML 3 ML VIAL 10 UNIT SUBCUT (10:32)
[2024-09-01 12:23] LABS: Glucose, Whole Blood 172 mg/dL (60-115)
[2024-09-01] MEDS: 0.9 % Sodium Chloride 1,000 ML 999 ML IVCONT (12:37)
[2024-09-01] MEDS: Ketorolac Tromethamine 15 MG/ML VIAL IVPUSH (13:19)
[2024-09-01 17:05] LABS: C Reactive Protein < 0.10 mg/dL (< or = 0.50)
[2024-09-01] MEDS: Pantoprazole Sodium 40 MG/10 ML VIAL IVPUSH (18:09)
[2024-09-01] MEDS: Insulin Glargine,Hum.rec.anlog 100 UNIT/ML 10 ML VIAL 20 UNIT SUBCUT (18:10)
[2024-09-01 18:15] LABS: Glucose, Whole Blood 151 mg/dL (60-115)
== END 2024-09-01 19:02 | disposition home or self-care (01) ==
PROVIDERS: Emergency Medicine; Emergency Provider Emergency Medicine
DX: R11.2 Nausea with vomiting, unspecified (principal); R10.2 Pelvic and perineal pain; E10.9 Type 1 diabetes mellitus without complications; F12.90 Cannabis use, unspecified, uncomplicated; Z79.4 Long term (current) use of insulin; F17.210 Nicotine dependence, cigarettes, uncomplicated; Z79.899 Other long term (current) drug therapy
CPT/HCPCS: 36415; 74177; 80053; 82010; 82803; 82947; 85025; 86140; 93005; 96361; 96365; 96366; 96375; 96376; 99285; J1885; J2270; J2405; J2470; J7120; Q9967

== ENCOUNTER → 2024-09-01 09:45 | Outpatient (BNV) | payer MEDICAID, SELFPAY | PROVIDERS: Emergency Provider Emergency Medicine; Visit Provider Specialist | DX: R10.9 Unspecified abdominal pain (principal) | CPT/HCPCS: 74177 ==

== ENCOUNTER → 2024-09-01 10:25 | Outpatient (BNV) | payer MEDICAID, SELFPAY | PROVIDERS: Emergency Provider Emergency Medicine; Visit Provider Internal Medicine Cardiovascular Disease | DX: R94.31 Abnormal electrocardiogram [ECG] [EKG] (principal) | CPT/HCPCS: 93010 ==

== ENCOUNTER 2024-09-09 15:39 | Emergency (ER) | payer MEDICAID, SELFPAY ==
--- NOTE | ~2024-09-09 | US_ITS ---
CLINICAL HISTORY: Testicular Pain US Scrotum with Doppler Comparison: US/ID/SR - US SCROTUM - 08/01/24 23:48 EST Findings: Limited exam. Patient was unable to complete the exam due to pain. The left testicle is not evaluated. Right testicle normal size and echotexture, 4.3 x 2.3 x 2.9 cm, corresponds to a volume of 15.0 mL Left testicle is not evaluated. Color Doppler and arterial/venous spectral tracings of right testicle within normal limits. There is apparent hyperemia of the left testis on [id number] comparison image. A 2 mm cyst is noted within the right epididymis otherwise unremarkable. No hydroceles or varicoceles of the right testis. IMPRESSION: Limited exam due to patient unable to complete the study. Apparent hyperemia of the left testis on [id number] comparison image may represent orchitis. Recommend completion of the study once the patient condition improves. This document has been electronically signed by: Sebastian Graham MD on 09/09/2024 19:23:23
--- NOTE | ~2024-09-09 | US_ITS ---
CLINICAL HISTORY: testicular pain , no swelling US Scrotum with Doppler Comparison: US/[place]/SR - US SCROTUM - 08/01/24 23:48 EST Findings: Right testicle normal size and echotexture, 4.7 x 2.1 x 3.2 cm, corresponds to a volume of 16.3 mL.. Left testicle normal size and echotexture, 5.0 x 2.0 x 3.1 cm, corresponds to a volume of 16.0 mL. Color Doppler and arterial/venous spectral tracings of both testicles within normal limits. A 2 mm right epididymal cyst otherwise,epididymides are unremarkable. No varicoceles. No hydroceles. IMPRESSION: Normal scrotal ultrasound. No evidence of torsion. This document has been electronically signed by: Sebastian Graham MD on 09/09/2024 22:19:57
--- NOTE | ~2024-09-09 | US_ITS ---
CLINICAL HISTORY: Testicular Pain US Scrotum with Doppler Comparison: US/DC/SR - US SCROTUM - 08/01/24 23:48 EST Findings: Limited exam. Patient was unable to complete the exam due to pain. The left testicle is not evaluated. Right testicle normal size and echotexture, 4.3 x 2.3 x 2.9 cm, corresponds to a volume of 15.0 mL Left testicle is not evaluated. Color Doppler and arterial/venous spectral tracings of right testicle within normal limits. There is apparent hyperemia of the left testis on [id number] comparison image. A 2 mm cyst is noted within the right epididymis otherwise unremarkable. No hydroceles or varicoceles of the right testis. IMPRESSION: Limited exam due to patient unable to complete the study. Apparent hyperemia of the left testis on [id number] comparison image may represent orchitis. Recommend completion of the study once the patient condition improves. This document has been electronically signed by: Sebastian Graham MD on 09/09/2024 19:23:23
--- NOTE | ~2024-09-09 | US_ITS ---
CLINICAL HISTORY: testicular pain , no swelling US Scrotum with Doppler Comparison: US/IL/SR - US SCROTUM - 08/01/24 23:48 EST Findings: Right testicle normal size and echotexture, 4.7 x 2.1 x 3.2 cm, corresponds to a volume of 16.3 mL.. Left testicle normal size and echotexture, 5.0 x 2.0 x 3.1 cm, corresponds to a volume of 16.0 mL. Color Doppler and arterial/venous spectral tracings of both testicles within normal limits. A 2 mm right epididymal cyst otherwise,epididymides are unremarkable. No varicoceles. No hydroceles. IMPRESSION: Normal scrotal ultrasound. No evidence of torsion. This document has been electronically signed by: Sebastian Graham MD on 09/09/2024 22:19:57
[2024-09-09 16:03] VITALS: BP 162/92; PULSE 107; O2SAT 100; BMI 20.6
--- NOTE | 2024-09-09 16:24 | ED_ITS ---
HPI - Male Genitourinary General Chief complaint: Urogenital-Male Stated complaint: 05/30 groin pain Time Seen by Provider: 09/09/24 16:23 Source: patient Mode of arrival: ambulatory Limitations: no limitations History of Present Illness ED Provider: HPI Narrative: Patient complaining of left testicular pain since last no history of trauma no swelling or redness of the scrotum patient was diagnose with epididymitis in 07/31/2024 treated felt better . Denies any history of STI no urinary complaints pain is constant took Toradol 10 mg prior to arrival still having the pain Related Data Home Medications ?Medication ?Instructions ?Recorded ?Confirmed pantoprazole 40 mg tablet,delayed 40 mg PO DAILY@0630 12/19/22 06/01/23 release (Protonix) promethazine 25 mg tablet 25 mg PO TID PRN nausea/vomiting 01/23/23 06/01/23 acetaminophen 500 mg tablet 500 mg PO Q6H PRN 04/09/24 Previous Rx's ?Medication ?Instructions ?Recorded ondansetron 4 mg disintegrating 4 mg PO DAILY PRN nausea and 02/23/24 tablet vomiting 5 days #14 tabs glucagon 3 mg/actuation nasal 3 mg intranasal BID PRN 03/28/24 spray (Baqsimi) unresponsive hypoglycemia 30 days #2 ea insulin aspart U-100 100 unit/mL 1 sliding scale dose subcut TID 30 03/28/24 (3 mL) subcutaneous pen (Novolog days #9 mL FlexPen U-100 Insulin aspart) insulin degludec 200 unit/mL (3 20 unit (0.1 mL) subcut DAILY 30 03/28/24 mL) subcutaneous pen (Tresiba days #6 mL FlexTouch U-200 insulin) albuterol sulfate 90 mcg/actuation 2 puff inhalation QID PRN 04/13/24 aerosol inhaler shortness of breath or wheezing #6.7 grams cyclobenzaprine 10 mg tablet 10 mg PO TID #10 tabs 05/07/24 gabapentin 100 mg capsule 100 mg PO TID #30 caps 05/07/24 acetone (urine) test (Ketone Urine #25 ea 06/19/24 Test strips) blood-glucose meter,continuous #1 ea 06/19/24 (Dexcom G7 Circuit Board Assembler) blood-glucose sensor (Dexcom G7 #6 ea 06/19/24 Sensor device) glucagon 3 mg/actuation nasal 3 mg intranasal ONCE PRN 06/19/24 spray (Baqsimi) unresponsive hypoglycemia 30 days #2 ea Allergies Allergy/AdvReac Type Severity Reaction Status Date / Time diphenhydramine Allergy Anaphylaxis Verified 09/09/24 16:06 [From Benadryl] haloperidol [From Haldol] Allergy Difficulty Verified 09/09/24 16:06 Swallowing lorazepam [From Ativan] AdvReac Difficulty Verified 09/09/24 16:06 Breathing metoclopramide [From Reglan] AdvReac Anxiety Verified 09/09/24 16:06 Review of Systems 2 Review of Systems: Yes all other systems are reviewed and are negative [facility] Past Medical History Medical History Abdominal pain Dental infection Colitis DKA (diabetic ketoacidosis) Hyperglycemia 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 type 1 Surgical History History of esophagogastroduodenoscopy (EGD) Family History Family History Paternal Grandmother Breast cancer Family/Other Brain cancer Social History Social History Household Members: Other Household Members Other:: cousin Housing: House Do you presently have visiting nurse or other home services: No Alcohol intake: current Alcohol intake frequency: holidays/special occasions only Patient Tobacco Use Status: Current everyday Tobacco user Tobacco use type: Cigarette Cigarette Packs Per Day: 0 Cigarettes Per Day: 0 Years Smoked: 10 e-Cigarette/Vaping Use: Never Used Second Hand Smoke Exposure: No Substance Use Type: Marijuana service: No Current occupational status: employed 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 Oriented X3. No acute distress. Patient is very anxious ENT: Pharynx normal. Oral Mucosa moist Neck: Normal inspection. Neck supple. CVS: Normal heart rate and rhythm. Pulses normal. Respiratory: No respiratory distress. Equal air entry bilateral, Abd: Soft not tender not distended no CVA tenderness : Normal size testicle normal alignment cremasteric reflex normal, no significant swelling or tenderness of epididymis no mass palpable Skin: Skin warm and dry. Normal skin color. Normal skin turgor. Medications Administered Discontinued Medications Generic Name Dose Route Start Last Admin Trade Name Freq PRN Reason Stop Dose Admin Ibuprofen 600 mg 09/09/24 17:25 09/09/24 17:37 Ibuprofen 600 Mg Tablet PO 09/09/24 17:26 Not Given ONCE ONE Morphine Sulfate 4 mg 09/09/24 19:34 09/09/24 20:20 Morphine Sulfate 4 Mg/Ml Cartridge IVPUSH 09/09/24 19:35 4 mg ONCE ONE Administration Protocol Ondansetron HCl 4 mg 09/09/24 19:34 09/09/24 20:20 Ondansetron Hcl 4 Mg/2 Ml Vial IVPUSH 09/09/24 19:35 4 mg ONCE ONE Administration Oxycodone HCl 10 mg 09/09/24 17:40 09/09/24 17:45 Oxycodone Hcl Immed Release 5 Mg Tablet PO 09/09/24 17:41 10 mg ONCE ONE Administration Medical Decision Making Medical Decision Making [facility] Narrative: Patient nonspecific tenderness in the testicle clinically no significant swelling or tenderness noticed what patient complaining of pain asking for pain medication etiology not clear ultrasound was negative patient advised to follow with urologist Differential Diagnosis Differential Diagnoses: The differential diagnosis associated with the presentation includes Intermittent torsion/epididymitis/epididymal cyst/varicocele Lab Data [facility] Lab Attestation statement: I reviewed the patient's lab results. 09/09/24 20:17 09/09/24 20:17 Labs: Lab Results 09/09/24 09/09/24 09/09/24 Range/Units 18:42 20:17 20:47 WBC 7.7 (4.8-10.8) X10*3/uL RBC 4.72 (4.60-5.80) X10*6/uL Hgb 12.4 L (14.0-18.0) g/dl Hct 36.7 L (42.0-52.0) % MCV 77.8 L (80.0-98.0) fL MCH 26.3 L (27.0-33.0) pg MCHC 33.8 (31.0-36.0) g/dl RDW 13.9 (11.0-16.0) % Plt Count 236 (160-400) X10*3/uL MPV 9.4 (9.4-12.4) fL Immature Gran % (Auto) 0.1 (0.0-0.4) % Neut % (Auto) 71.7 (45-73) % Lymph % (Auto) 15.8 L (20-40) % Metcalfe % (Auto) 10.3 (2-11) % Eos % (Auto) 1.6 (0-4) % Baso % (Auto) 0.5 (0-2) % Lymph # (Auto) 1.2 (1.2-4.9) X10*3/uL Metcalfe # (Auto) 0.8 (0.1-1.2) X10*3/uL Eos # (Auto) 0.1 (0.0-0.4) X10*3/uL Baso # (Auto) 0.0 (0.0-0.2) X10*3/uL Abs Immat Gran (auto) 0.01 (0.00-0.03) X10*3/uL Absolute Neuts (auto) 5.5 (2.0-8.3) x10*3/uL Absolute Nucleated RBC 0.000 (0.0-0.012) X10*3/uL Nucleated RBC % (auto) 0.0 (0.0-0.2) /100WBC Sodium 136 (135-145) mmol/L Potassium 3.9 D (3.3-5.1) mmol/L Chloride 104 (96-108) mmol/L Carbon Dioxide 21 L (22-29) mmol/L Anion Gap 15 (12-20) BUN 15 (9-16) mg/dL Creatinine 0.60 (0.5-1.4) mg/dL Estim Creat Clear Calc 178.3 Estimated GFR > 60 Random Glucose 112 (60-115) mg/dL Lactic Acid 0.8 (0.5-2.0) mmol/L Calcium 8.6 D (8.4-10.2) mg/dL Total Bilirubin 0.4 (0.0-1.0) mg/dL AST 18 (5-37) U/L ALT 12 (0-40) U/L Alkaline Phosphatase 64 (39-117) U/L Total Protein 7.4 (6.5-8.0) g/dL Albumin 4.2 (3.5-5.0) g/dL Urine Color Yellow Urine Appearance Clear Urine pH >= 9.0 (5.0-9.0) Ur Specific [place] 1.025 (1.005-1.025) Urine Protein Negative (Neg-Trace) mg/dL Urine Glucose (UA) Negative (Negative) mg/dL Urine Ketones 15 (Negative) mg/dL Urine Blood Negative (Negative) Urine Nitrite Negative (Negative) Ur Leukocyte Esterase Negative (Negative) Independent Interpretation I performed an independent interpretation of an: Ultrasound Radiology Impression Discussion of test interpretation with radiology: I have reviewed the radiologist's reading. Radiologist Impression: no acute Discharge Plan Discharge Clinical Impression: Pain in testicle Patient Disposition: Home, Self-Care Instructions: Testicle Pain (ED) Additional Instructions: Your ultrasound of your testicles is normal Take Tylenol/Motrin for pain as needed Follow up with urologist if pain continues Prescriptions: No Action (DME) Dexcom G7 Sensor Device See Rx Instructions .ROUTE .MEDSUPPLY Qty: 6 6RF Rx Instructions: As directed every 10 days (DME) Dexcom G7 Circuit Board Assembler Misc See Rx Instructions .ROUTE .MEDSUPPLY Qty: 1 1RF Rx Instructions: As directed (DME) Ketone Urine Test Strip See Rx Instructions .ROUTE .MEDSUPPLY Qty: 25 3RF Rx Instructions: As directed prn glucose over 250, nausea/vomiting tid Baqsimi 3 mg/actuation spray,non-aerosol 3 mg intranasal ONCE MDD 6mg may repeat in 15 minutes PRN (Reason: unresponsive hypoglycemia) 30 Days Qty: 2 1RF pantoprazole [Protonix] 40 mg tablet,delayed release (DR/EC) 40 mg PO DAILY@0630 promethazine 25 mg tablet 25 mg PO TID PRN (Reason: nausea/vomiting) ondansetron 4 mg tablet,disintegrating 4 mg PO DAILY PRN (Reason: nausea and vomiting) 5 Days Qty: 14 0RF albuterol sulfate 90 mcg/actuation HFA aerosol inhaler 2 puff inhalation QID PRN (Reason: shortness of breath or wheezing) Qty: 6.7 0RF gabapentin 100 mg capsule 100 mg PO TID Qty: 30 0RF cyclobenzaprine 10 mg tablet 10 mg PO TID Qty: 10 0RF acetaminophen 500 mg tablet 500 mg PO Q6H PRN insulin aspart U-100 [Novolog FlexPen U-100 Insulin] 100 unit/mL (3 mL) insulin pen 1 sliding scale dose subcut TID 30 Days Qty: 9 3RF Rx Instructions: 1 sliding scale dose subcutaneously; 1 unit for every 35 points over 135, 1:15 ratio (uses approx 20-25 units daily) Baqsimi 3 mg/actuation spray,non-aerosol 3 mg intranasal BID MDD 6mg PRN (Reason: unresponsive hypoglycemia) 30 Days Qty: 2 1RF Rx Instructions: P.R.N. for unresponsive hypoglycemia. Check to see if patient breathing and pulse, initiate CPR if needed. Call 911. Use when patient can not self treat low sugar. Rollins once, position lying on the side, repeat again in 15 minutes. insulin degludec [Tresiba FlexTouch U-200] 200 unit/mL (3 mL) insulin pen 20 unit subcut DAILY 30 Days Qty: 6 6RF Referrals: Vic Ross MD [Physician] - 2 weeks Interventions: ED Discharge Assessment Last Done: 09/09/24 22:54 Discharge Date/Time: 09/09/24 22:54 Print Language: Nicaraguan
[2024-09-09] MEDS: oxyCODONE HCl Immed Release 5 MG TABLET 10 MG PO (17:45)
[2024-09-09 18:57] LABS: Appearance Urine Clear; Color Urine Yellow; Glucose Urine UA Negative (Negative); Leukocyte Esterase Urine Negative (Negative); Nitrite Urine Negative (Negative); PH >= 9.0 (5.0-9.0); Specific Gravity - Urine 1.025 (1.005-1.025); Urine Blood Negative (Negative); Urine Ketones 15 mg/dL (Negative); Urine Protein Negative (Neg-Trace)
[2024-09-09 20:20] VITALS: RESP 16
[2024-09-09] MEDS: Morphine Sulfate 4 MG/ML CARTRIDGE IVPUSH (20:20)
[2024-09-09] MEDS: ondansetron HCL 4 MG/2 ML VIAL IVPUSH (20:20)
[2024-09-09 20:21] LABS: MANUAL DIFF FLAG NO
[2024-09-09 20:28] LABS: Basophils Percent Auto 0.5 % (0-2); Eosinophils Absolute Auto 0.1 X10*3/uL (0.0-0.4); Eosinophils Percent Auto 1.6 % (0-4); Hematocrit 36.7 % (42.0-52.0); Hemoglobin 12.4 g/dl (14.0-18.0); Imm Gran Abs Auto 0.01 X10*3/uL (0.00-0.03); Imm Gran Pct Auto 0.1 % (0.0-0.4); Lymphocytes Absolute Auto 1.2 X10*3/uL (1.2-4.9); Lymphocytes Percent Auto 15.8 % (20-40); Mean Corpuscular HGB Conc 33.8 g/dl (31.0-36.0); Mean Corpuscular Hemoglobin 26.3 pg (27.0-33.0); Mean Corpuscular Volume 77.8 fL (80.0-98.0); Mean Platelet Volume 9.4 fL (9.4-12.4); Monocytes Absolute Auto 0.8 X10*3/uL (0.1-1.2); Monocytes Percent Auto 10.3 % (2-11); Neutrophils Absolute Auto 5.5 x10*3/uL (2.0-8.3); Neutrophils Percent Auto 71.7 % (45-73); Platelet Count 236 X10*3/uL (160-400); Red Blood Count 4.72 X10*6/uL (4.60-5.80); Red Cell Distribution Width 13.9 % (11.0-16.0); White Blood Count 7.7 X10*3/uL (4.8-10.8)
[2024-09-09 20:50] LABS: Alanine Aminotransferase 12 U/L (0-40); Albumin Level 4.2 g/dL (3.5-5.0); Alkaline Phosphatase 64 U/L (39-117); Anion Gap 15 (12-20); Aspartate Amino Transferase 18 U/L (5-37); Bilirubin Total 0.4 mg/dL (0.0-1.0); Blood Urea Nitrogen 15 mg/dL (9-16); Calcium 8.6 mg/dL (8.4-10.2); Carbon Dioxide 21 mmol/L (22-29); Chloride 104 mmol/L (96-108); Creatinine Clr Calc Pharmacy 178.3; Estimated Glomerular Filt Rate > 60; Glucose Random 112 mg/dL (60-115); Potassium 3.9 mmol/L (3.3-5.1); Sodium 136 mmol/L (135-145); Total Protein 7.4 g/dL (6.5-8.0)
[2024-09-09 21:09] LABS: Lactic Acid 0.8 mmol/L (0.5-2.0)
[2024-09-09 22:34] VITALS: BP 121/75; PULSE 81; RESP 15; TEMP 36.1; O2SAT 96
[2024-09-09 22:54] VITALS: BP 121/75; PULSE 81; RESP 15; TEMP 36.1; O2SAT 96
== END 2024-09-09 22:54 | disposition home or self-care (01) ==
PROVIDERS: Emergency Provider Internal Medicine; PCP Internal Medicine Geriatric Medicine
DX: N50.819 Testicular pain, unspecified (principal); E10.9 Type 1 diabetes mellitus without complications; Z79.899 Other long term (current) drug therapy; Z79.4 Long term (current) use of insulin
CPT/HCPCS: 36415; 76870; 80053; 81003; 83605; 85025; 93975; 96374; 96375; 99284; J2270; J2405

== ENCOUNTER → 2024-09-09 18:21 | Outpatient (BNV) | payer MEDICAID, SELFPAY | PROVIDERS: Emergency Provider Internal Medicine; PCP Internal Medicine Geriatric Medicine; Visit Provider Student in an Organized Health Care Education/Training Program | DX: N50.3 Cyst of epididymis (principal) | CPT/HCPCS: 76870; 93976 ==

== ENCOUNTER 2024-09-13 14:12 | Outpatient (REF) | payer MEDICAID, SELFPAY ==
--- NOTE | ~2024-09-13 | XR_ITS ---
EXAMINATION: XR CHEST 2 VIEWS HISTORY: cough and wheeze globally COMPARISON: Comparison is made with the prior examination dated 04/13/2024. FINDINGS: PA and lateral views of the chest are submitted. The lungs are expanded and clear. There is no pleural effusion, pneumothorax, or pulmonary vascular congestion. The heart is normal in size. The bones are intact. XR/XR chest 2V IMPRESSION: No acute cardiopulmonary abnormality. Electronically signed by: August Clark MD 09/13/2024 02:29 PM WAQAS
--- OUTSIDE RECORDS SUMMARY | 2024-09-13 15:53 | XMS_ITS | Encounter Summary ---
Author Organization [employer] Address [address] [facility] [address] [place] [address] Care Team Providers Care Database Marketing Analyst Name Role Phone Amna Urrutia Primary Care Provider [phone] Name, Everett ROSE Primary Care Provider [phone] Reason for Visit * Reason Comments Med Refill Encounter Details Date Type Department Care Team (Late st Contact Info) Description 08/29/[address] [facility] [address] [place], [place] [phone] Carlos Alberto Villavicencio MD [address] [place], [place] [phone] Type 1 diabetes mellitus with hyperglycemia (CMS/[facility]) Social History Tobacco Use Types Packs/Day Years Used Date Smoking Tobacco: Some Days Cigarettes 0.5 10 Passive Smoke Exposure: Current Smokeless Tobacco: Never Alcohol Use Standard Drinks/Week Comments Yes 0 (1 standard drink = 0.6 oz pur e alcohol) occasional Depression Answer Date Recorded Patient Health Questionnaire-9 Score 16 04/17/2023 Housing Stability Answer Date Recorded What is your housing situation today? I have augustabrian carranza 06/05/[address] you li ve. Do you have problems with any of the following? None of the above 06/05/2023 Food Insecurity Answer Date Recorded Within the past 12 months, y ou worried that your food would run out before you got money to buy more: Sometimes True 2022 Within the past 12 months,th e food you bought just didn't last and you didn't have enough money to get more: Sometimes True 06/05/2023 Transportation Answer Date Recorded In the past 12 months, has l ack of transportation kept you from medical appts, meetings, work or from getting things needed for daily living? Yes, it has kept me from medical appointments or getting medications. 05/30/2023 Utilities Answer Date Recorded In the past 12 months, has t he electric, gas, oil or water company threatened to shut off services in your home? No 06/05/2023 Depression Answer Date Recorded Patient Health Questionnaire-2 Score 4 04/17/2023 Sex and Gender Information Value Date Recorded Sex Assigned at Male 10/18/2022 3:33 PM EST Legal Sex Male 3:31 PM EST Gender Identity Male 10/18/2022 3:33 PM EST Sexual Orientation Choose not to disclose 2022 3:33 PM EST documented as of this encounter Plan of Treatment Upcoming Encounters Date Type Department Care Team (Late st Contact Info) Description 10/08/2024 10:15 AM EST Office Visit [facility] MED[facility] [address] [place] [phone] Everett Angulo MD [address] [place] [id number] documented as of this encounter Visit Diagnoses Diagnosis Type 1 diabetes mellitus with hyperglycemia (CMS/HCC) documented in this encounter Additional Health Concerns Assessment Noted Time PHQ-9 Depression Total Score: 16 023 8:52 AM EDT documented as of this encounter Care Teams Database Marketing Analyst Relationship Specialty Start Date End Date Amna Urrutia FNP [address] [place] [id number] PCP - General Family Medicine 01/01/23 04/18/24 Everett Angulo MD [address] [place] [address] PCP - General Internal Medicine 04/19/24 Chris Pack Jr Technology Program ManagerMotor Vehicle Salesperson 09/04/24 documented as of this encounter
--- OUTSIDE RECORDS SUMMARY | 2024-09-13 15:54 | XMS_ITS | Encounter Summary ---
Author Organization [facility] Address [address] [place] [address] Phone Care Team Providers Care Automotive Engineering Teacher Name Role Phone Santos Mueller MD Primary Care Provider [phone] Encounter Details Date Type Department Care Team (Late st Contact Info) Description 07/28/2023 Documentation Only [facility], [address] [place] [address] Santos Muleler MD [address] [place] [address] Social History Tobacco Use Types Packs/Day Years Used Date Smoking Tobacco: Never Assessed Sex and Gender Information Value Date Recorded Sex Assigned at Not on file Legal Sex Male 10:00 AM EST Gender Identity Not on file Sexual Orientation Not on file documented as of this encounter Plan of Treatment Not on file documented as of this encounter Visit Diagnoses Not on filedocumented in this encounter Care Teams Automotive Engineering Teacher Relationship Specialty Start Date End Date Santos Mueller MD [address] [place] [address] PCP - General Emergency Medicine 07/28/23 documented as of this encounter
--- OUTSIDE RECORDS SUMMARY | 2024-09-13 15:54 | XMS_ITS | Encounter Summary ---
Author Organization [employer] Address [address] [facility] [address] [place] [address] Care Team Providers Care Environmental Science Instructor Name Role Phone Name, Everett ROSE Primary Care Provider [phone] Reason for Visit * Reason Comments Med Refill Encounter Details Date Type Department Care Team (Late st Contact Info) Description 09/12/2024 Refill [facility] [address] [place], [place] [phone] Name, MD Everett [address] [place] [address] Social History Tobacco Use Types Packs/Day Years Used Date Smoking Tobacco: Some Days Cigarettes 0.5 10 Passive Smoke Exposure: Current Smokeless Tobacco: Former Alcohol Use Standard Drinks/Week Comments Yes 0 (1 standard drink = 0.6 oz pur e alcohol) occasional Depression Answer Date Recorded Patient Health Questionnaire-9 Score 03/05/2024 Patient Health Questionnaire-9 Score 20 03/05/2024 Last PHQ-9: Questionnaire Data Not on file 0 03/05/2024 Housing Stability Answer Date Recorded What is your housing situation today? I have augusta carranza 11/09/[address] you li ve. Do you have problems with any of the following? Pests such as bugs, ants, or mice;Water leaks 11/09/2023 Food Insecurity Answer Date Recorded Within the past 12 months, y ou worried that your food would run out before you got money to buy more: Sometimes True 2023 Within the past 12 months,th e food you bought just didn't last and you didn't have enough money to get more: Often true 11/09/2023 Transportation Answer Date Recorded In the past 12 months, has l ack of transportation kept you from medical appts, meetings, work or from getting things needed for daily living? Yes, it has kept me from non-medical meetings, work, or getting things that I need 11/09/2023 Utilities Answer Date Recorded In the past 12 months, has t he electric, gas, oil or water company threatened to shut off services in your home? No 06/05/2023 Depression Answer Date Recorded Patient Health Questionnaire-2 Score 5 03/05/2024 Sex and Gender Information Value Date Recorded [...] Description 10/08/2024 10:15 AM EST Office Visit [facility] [address] [place] [address] Name, MD Everett [address] [place] [address] documented as of this encounter Visit Diagnoses Not on filedocumented in this encounter Additional Health Concerns Assessment Noted Time PHQ-9 Depression Total Score: 20 024 2:42 PM EDT documented as of this encounter Care Teams Environmental Science Instructor Relationship Specialty Start Date End Date Name, MD Everett [address] [place] [phone] PCP - General Internal Medicine 04/19/24 Chris Pack Jr Internal Audit DirectorStudent Officer 09/04/24 documented as of this encounter
--- OUTSIDE RECORDS SUMMARY | 2024-09-13 15:54 | XMS_ITS | Encounter Summary ---
Author Organization [employer] Address [address] [facility] [address]t [place] [address] Care Team Providers Care Auto Radio Mechanic Name Role Phone Amna Urrutia Primary Care Provider [phone] Name, Everett ROSE Primary Care Provider [phone] Reason for Visit * Reason Onset Date Comments Appointment Request 09/08/2023 Encounter Details Date Type Department Care Team ([facility] st Contact Info) Description 09/08/2023 Telephone [facility] [address] [place] [address] Amna Urrutia FNP [address] [place] [address] Appointment Request Social History Tobacco Use Types Packs/Day Years [...] housing situation today? I have augusta carranza 06/05/[address] you [...] PM EST documented as of this encounter Miscellaneous Notes * Telephone Encounter - Carlin Dean - 09/08/2023 12:07 PM EST Tc from patient calling to reschedule missed appt on 09/06 however telegraphic typewriter installer was not able to offer apptdue to the provider did not have any availably documented in this encounter Plan of Treatment Upcoming Encounters Date Type Department Care Team (Late st Contact Info) Description 10/08/2024 10:15 AM EST Office Visit [facility] [address] [place] [address] NameEverett MD [address] [place] [address] documented as of this encounter Visit Diagnoses Not on filedocumented in this encounter Additional Health Concerns Assessment Noted Time PHQ-9 Depression Total Score: 16 023 8:52 AM EDT documented as of this encounter Care Teams Auto Radio Mechanic Relationship Specialty Start Date End Date Amna Urrutia FNP [address] [place] [id number] PCP - General Family Medicine 01/01/23 04/18/24 NameEverett MD [address] [place] [address] PCP - General Internal Medicine 04/19/24 Chris Pack Jr Dean Of ChapelForm Setter Supervisor 09/04/24 documented as of this encounter
--- OUTSIDE RECORDS SUMMARY | 2024-09-13 15:54 | XMS_ITS | Encounter Summary ---
Author Organization [employer] Address [address] [facility] 7t [place] [address] Care Team Providers Care Engineering Design Manager Name Role Phone Name, Everett ROSE Primary Care Provider [phone] Reason for Visit * Reason Onset Date Comments Nurse Triage 09/12/2024 Encounter Details Date Type Department Care Team (Late st Contact Info) Description 09/12/2024 Telephone [facility] [address] [place] [address] Name, MD Everett [address] [place] [address] Nurse Triage Social History Tobacco Use Types Packs/Day Years Used Date Smoking Tobacco: Some Days Cigarettes 0.5 10 Passive Smoke Exposure: Current Smokeless Tobacco: Former Alcohol Use Standard Drinks/Week Comments Yes 0 (1 standard drink = 0.6 oz pur e alcohol) occasional Depression Answer Date Recorded Patient Health Questionnaire-9 Score 03/05/2024 Patient Health Questionnaire-9 Score 03/05/2024 Last PHQ-9: Questionnaire Data Not on [...] encounter Miscellaneous Notes * Telephone Encounter - Ceiclle Fernandez LPN - 09/12/2024 3:05 PM EST Triage call returned to patient who reports that 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 Cough when able to produce phlegm is sticky nd difficult to expectorate. Has not taken any OTC as he is concerned with interactions with Celebrex. Has not tested for COVID has no kits at home. Still had some acid reflux currently taking famotidine. Has good volume of water intake per report. No fever atpresent. Has not used inhaler as previously prescribed no noted wheezing at tyime of call. Patient is Type 1DM and reports BG a little high last night but overall has been ok. Disposition reviewed and patient in agreement with plan. No PCP or Team appts at time of call. [facility] hours and availability provided for patient evaluation. Triage nurse informed the patient may have a wait of 1-2 hours because Walk In Clinic may have delays due to patient volume or symptom acuity. Insurance verified as active. Protocol Used: Cough (Adult) Protocol-Based Disposition: See in Office or Video Visit Today or Tomorrow Override (Final) Disposition: Go to Urgent Care Now Override Reason: No appointments available Video visit not offered Positive Triage Question: * Patient wants to be seen * All higher-acuity triage questions were negative Care Advice Discussed: * Cough Medicines * Cough Syrup With Dextromethorphan * Reasons To Call Back - Difficulty breathing - Cough lasts more than 3 weeks - Fever lasts more than 3 days - You become worse * Telephone Encounter - Eb Kahn - 09/12/2024 2:45 PM EST Symptoms: Cough, Breathing Trouble Outcome: Schedule an urgent appointment (within 1 hour) or talk to a nurse or provider soon Reason: Caller denied all higher acuity questions The caller accepted this outcome. Contact pt at [phone] documented in this encounter Plan of Treatment Upcoming Encounters Date Type Department Care Team (Late st Contact Info) Description 10/08/2024 10:15 AM EST Office Visit [facility] [address] [place] [phone] Name, MD Everett [address] [place] [address] documented as of this encounter Visit Diagnoses Not on filedocumented in this encounter Additional Health Concerns Assessment Noted Time PHQ-9 Depression Total Score: 20 024 2:42 PM EDT documented as of this encounter Care Teams Engineering Design Manager Relationship Specialty Start Date End Date Name, MD Everett [address] [place] [id number] PCP - General Internal Medicine 04/19/24 Chris Pack Jr Assembly Line InspectorCover Creaser 09/04/24 documented as of this encounter
--- OUTSIDE RECORDS SUMMARY | 2024-09-13 15:54 | XMS_ITS | Encounter Summary ---
Author Organization [employer] Address [address] [facility] [address] 7[address] [place] [address] Care Team Providers Care Call Center Supervisor Name Role Phone Amna Urrutia Primary Care Provider [phone] Name, Everett ROSE Primary Care Provider [phone] Encounter Details Date Type Department Care Team (Late st Contact Info) Description 06/28/2023 Orders Only [facility] [address] [place], [place] [phone] Santos Mueller MD [address] [place], [place] [phone] Social History Tobacco Use Types Packs/Day Years [...] Description 10/08/2024 10:15 AM EST Office Visit [facility] [address] [place] [address] NameEverett MD [address] [place] [address] documented as of this encounter Visit Diagnoses Not on filedocumented in this encounter Additional Health Concerns Assessment Noted Time PHQ-9 Depression Total Score: 16 023 8:52 AM EDT documented as of this encounter Care Teams Call Center Supervisor Relationship Specialty Start Date End Date Amna Urrutia FNP [address] [place] [address] PCP - General Family Medicine 01/01/23 04/18/24 Everett Angulo MD [address] [place] [phone] PCP - General Internal Medicine 04/19/24 Chris Pack Jr Fireworks Display SpecialistEmail Deployment Specialist 09/04/24 documented as of this encounter
--- OUTSIDE RECORDS SUMMARY | 2024-09-13 15:54 | XMS_ITS | Encounter Summary ---
Author Organization [employer] Address [address] [facility] [address] 7t [place] [address] Care Team Providers Care Community Assistant Name Role Phone Name, Everett ROSE Primary Care Provider Encounter Details Date Type Department Care Team (Late st Contact Info) Description 04/21/2024 Orders Only [facility] [address] [place], [place] [phone] Amna Urrutia FNP [address] [place], [place] [phone] Social History Tobacco Use Types Packs/Day Years Used Date Smoking Tobacco: Some Days Cigarettes 0.5 10 Passive Smoke Exposure: Current Smokeless Tobacco: Former Alcohol Use Standard Drinks/Week Comments Yes 0 (1 standard drink = 0.6 oz pur e alcohol) occasional Depression Answer Date Recorded Patient Health Questionnaire-9 Score 20 03/05/2024 Patient Health Questionnaire-9 Score 20 03/05/2024 [...] Description 10/08/2024 10:15 AM EST Office Visit [facility] [address] [place] [phone] NameEverett MD [address] [place] [phone] documented as of this encounter Visit Diagnoses Not on filedocumented in this encounter Additional Health Concerns Assessment Noted Time PHQ-9 Depression Total Score: 20 024 2:42 PM EDT documented as of this encounter Care Teams Community Assistant Relationship Specialty Start Date End Date Name, MD Everett [address] [place] [id number] PCP - General Internal Medicine 04/19/24 Chris Pack Jr Shaker Screen OperatorCartoonist Special Effects 09/04/24 documented as of this encounter
--- OUTSIDE RECORDS SUMMARY | 2024-09-13 15:54 | XMS_ITS | Encounter Summary ---
Author Organization [employer] Address [address] [facility] 7t [place] [address] Care Team Providers Care [address] Worker Name Role Phone Amna Urrutia Primary Care Provider [phone] Name, Everett ROSE Primary Care Provider [phone] Reason for Visit * Reason Comments Med Refill Encounter Details Date Type Department Care Team (Late st Contact Info) Description 10/04/2023 Refill [facility] [address] [place] [address] Amna Urrutia FNP [address] [place] [address] Type 1 diabetes mellitus with hyperglycemia (CMS/HCC) Social History Tobacco Use Types Packs/Day Years [...] encounter Miscellaneous Notes * Telephone Encounter - Sandra Hernandez - 10/05/2023 8:38 AM EST Tc from pt requesting a refill for promethazine (Phenergan) 25 MG tablet documented in this encounter Plan of Treatment Upcoming Encounters Date Type Department Care Team (Late st Contact Info) Description 10/08/2024 10:15 AM EST Office Visit [facility] [address] [place] [phone] NameEverett MD [address] [place] [address] documented as of this encounter Visit Diagnoses Diagnosis Type 1 diabetes mellitus with hyperglycemia (CMS/HCC) documented in this encounter Additional Health Concerns Assessment Noted Time PHQ-9 Depression Total Score: 16 023 8:52 AM EDT documented as of this encounter Care Teams Drive Worker Relationship Specialty Start Date End Date Amna Urrutia FNP [address] [place] [address] PCP - General Family Medicine 01/01/23 04/18/24 Everett Angulo MD [address] [place] [phone] PCP - General Internal Medicine 04/19/24 Chris Pack Jr Rn Medical Inpatient ServicesRemelt Operator 09/04/24 documented as of this encounter
--- OUTSIDE RECORDS SUMMARY | 2024-09-13 15:54 | XMS_ITS | Encounter Summary ---
Author Organization [employer] Address [address] [facility] 7t [place] [address] Care Team Providers Care Licensed Psychiatric Technician Name Role Phone Amna Urrutia Primary Care Provider [phone] Name, Everett ROSE Primary Care Provider [phone] Reason for Visit * Reason Onset Date Comments Nurse Triage 05/30/2023 Encounter Details Date Type Department Care Team (Late st Contact Info) Description 05/30/2023 Telephone [facility] [address] [place] [address] Amna Urrutia FNP [address] [place] [address] Nurse Triage Social History Tobacco Use Types [...] housing situation today? I have augusta carranza 05/30/[address] you li ve. Do you have problems with any of the following? None of the above 05/30/2023 Food Insecurity Answer Date Recorded Within the past 12 months, y ou worried that your food would run out before you got money to buy more: Sometimes True 2022 Within the past 12 months,th e food you bought just didn't last and you didn't have enough money to get more: Sometimes True 05/30/2023 Transportation Answer Date Recorded In the past [...] shut off services in your home? No 05/30/2023 Depression Answer Date Recorded Patient Health Questionnaire-2 Score 4 04/17/2023 Sex and Gender Information Value Date Recorded Sex Assigned at Male 10/18/2022 3:33 PM EST Legal Sex Male 3:31 PM EST Gender Identity Male 10/18/2022 3:33 PM EST Sexual Orientation Choose not to disclose 2022 3:33 PM EST documented as of this encounter Miscellaneous Notes * Telephone Encounter - Marline Vega RN - 05/30/2023 1:36 PM EDT Please obtain discharge summary for patient seen at [facility] 05/29/23 following head injury at work. Scheduled for follow up below Future Appointments Date Time Provider Department Center 05/31/2023 11:30 AM Denice Rubin MD [facility] * Telephone Encounter - Marline Vega RN - 05/30/2023 1:27 PM EDT Call to Bradford Torres, reports having been seen at [facility] 05/29 due to concussion that occurred atwork on Monday. Pt did not file a workmans comp claim. Per pt states needs follow up for clearance to return to work./ Per pt using Toradol for pain with mild relief. Pt states attempted to be seen again today but was not seen by provider. Pt wants to be seen. Agrees to visit tomorrow with green team provider. Protocol Used: Concussion (mTBI) Less Than 14 Days Ago Follow-Up Call (Adult) Protocol-Based Disposition: See in Office or Video Visit within 3 Days Future Appointments Date Time Provider Department Center 05/31/2023 11:30 AM Denice Rubin MD [facility] Video visit offer not recorded Positive Triage Question: * Concussion symptoms staying SAME (not worse or better) and present > 3 days * All higher-acuity triage questions were negative Care Advice Discussed: * Reassurance and Education - Symptoms Staying the Same * Concussion - Treatment * Reasons To Call Back - Loss of speech or garbled speech - Weakness on one side of the body - Difficult to awaken or acting very confused - Severe headache, not improved with pain medication - Worsening or new concussion symptoms (especially increasing headache or repeated vomiting) - You become worse * Telephone Encounter - Joy Cisneros - 05/30/2023 12:26 PM EDT Patient calling to report ED visit on 05/29/23 and states is still in pain ( business writer was un able to take all details information due to call hanging up ) . Patient advised will forward to triage nursefor follow up. documented in this encounter Plan of Treatment Upcoming Encounters Date Type Department Care Team (Late st Contact Info) Description 10/08/2024 10:15 AM EST Office Visit [facility] [address] [place] [address] NameEverett MD [address] [place] [address] documented as of this encounter Visit Diagnoses Not on filedocumented in this encounter Additional Health Concerns Assessment Noted Time PHQ-9 Depression Total Score: 16 023 8:52 AM EDT documented as of this encounter Care Teams Licensed Psychiatric Technician Relationship Specialty Start Date End Date Amna Urrutia FNP [address] [place] [address] PCP - General Family Medicine 01/01/23 04/18/24 Everett Angulo MD [address] [place] [address] PCP - General Internal Medicine 04/19/24 Chris Pack Jr Medication TechCathode Ray Tube Assembler 09/04/24 documented as of this encounter
--- OUTSIDE RECORDS SUMMARY | 2024-09-13 15:54 | XMS_ITS | Encounter Summary ---
Author Organization [employer] Address [address] [facility] 7t [place] [address] Care Team Providers Care Ammonia Print Operator Name Role Phone Name, Everett ROSE Primary Care Provider [phone] Encounter Details Date Type Department Care Team (Late st Contact Info) Description 09/09/2024 Orders Only GENERIC EXTERNAL DATA DEPARTMENT Provider, Generic External Data Social History Tobacco Use Types Packs/Day Years [...] your housing situation today? I have augusta sing 11/09/[address] you li [...] Description 10/08/2024 10:15 AM EST Office Visit [facility] MED[facility] [address] [place] [address] Name, MD Everett [address] [place] [address] documented as of this encounter Procedures Procedure Name Priority Date/Time Associated Diagnosis Comments US SCROTUM DOPPLER Routine 09/09/2024 10 :19 PM EST US SCROTUM Routine 09/09/2024 10:19 PM EST LACTIC ACID Routine 09/09/2024 8:47 PM EST CBC WITH AUTO DIFFERENTIAL Routine 09/09/2024 8:17 PM EST COMPREHENSIVE METABOLIC PANEL Routine 09/09/2024 8:17 PM EST US SCROTUM DOPPLER Routine 09/09/2024 7: 23 PM EST US SCROTUM Routine 09/09/2024 7:23 PM EST URINALYSIS WITH REFLEX MICROSCOPIC Routine 09/09/2024 6:42 PM EST documented in this encounter Results * US SCROTUM DOPPLER (09/09/2024 10:19 PM EST) Anatomical Region Laterality Modality Abdomen Ultrasound 09/09/2024 10:1 9 PM EST Narrative 09/10/2024 8:26 AM EST ? [place] [facility] ?[address] ?[place] [address] ? Ultrasound Report ? Signed ? Patient: Torres,Bradford J ?MR#: [id number] ?? [id number] ? : 1995 ?Acct:[id number] ? Age/Sex: 29 / M ?ADM Date: 09/09/24 ? Loc: HO.ED ? Attending Dr: ? Ordering Physician: Sedrick Grady MD ?? Date of Service: 09/09/24 ?? Procedure(s): US scrotum doppler ?? Accession Number(s): [id number] ? cc: Adele,Everett ROSE; Sedrick Grady MD ? CLINICAL HISTORY: testicular pain , no swelling ? US Scrotum with Doppler ? Comparison: US/NV/SR - US SCROTUM - 08/01/24 23:48 EST ? Findings: ?? Right testicle normal size and echotexture, 4.7 x 2.1 x 3.2 cm, ?? corresponds to a volume of 16.3 mL.. ?? Left testicle normal size and echotexture, 5.0 x 2.0 x 3.1 cm, corresponds ?? to a volume of 16.0 mL. ?? Color Doppler and arterial/venous spectral tracings of both testicles ?? within normal limits. ? A 2 mm right epididymal cyst otherwise,epididymides are unremarkable. ?? No varicoceles. No hydroceles. ? IMPRESSION: ?? Normal scrotal ultrasound. No evidence of torsion. ? This document has been electronically signed by: Sebastian Graham MD on ?? 09/09/2024 22:19:57 ? Dictated By: ?Sebastian Graham MD ? Signed By: ?<Electronically signed by Sebastian Graham MD in OV> ?09/10/24 0826 ? DD/ 18 ? TD/TT: 09/09/242218 ? [employer]: ? Procedure Note Geovanna, Image - 09/10/[address] [address] Ultrasound Report Signed Patient: Bradford Torres JMR#: [id number] : 1995Acct:[id number] Age/Sex: 29 / MADM Date: 09/09/24 Loc: HO.ED Attending Dr: Ordering Physician: Sedrick Grady MD Date of Service: 09/09/24 Procedure(s): US scrotum doppler Accession Number(s): [id number] cc: Adele,Everett ROSE; Sedrick Grady MD CLINICAL HISTORY: testicular pain , no swelling US Scrotum with Doppler Comparison: US/NV/SR - US SCROTUM - 08/01/24 23:48 EST Findings: Right testicle normal size and echotexture, 4.7 x 2.1 x 3.2 cm, corresponds to a volume of 16.3 mL.. Left testicle normal size and echotexture, 5.0 x 2.0 x 3.1 cm, corresponds to a volume of 16.0 mL. Color Doppler and arterial/venous spectral tracings of both testicles within normal limits. A 2 mm right epididymal cyst otherwise,epididymides are unremarkable. No varicoceles. No hydroceles. IMPRESSION: Normal scrotal ultrasound. No evidence of torsion. This document has been electronically signed by: Sebastian Graham MD on 09/09/2024 22:19:57 Dictated By: Sebastian Grahma MD Signed By: <Electronically signed by Sebastian Graham MD in OV> 09/10/24 0826 DD/ 18 TD/TT: 09/09/242218 [employer]: [facility] External Provider IMG US PROCEDURES Edited Result - Final * US Scrotum (09/09/2024 10:19 PM EST) Anatomical Region Laterality Modality Body Ultrasound 09/09/2024 10:1 9 PM EST Narrative 09/09/2024 10:21 PM EST ? [facility] ?[address] ?[place] [address] ? Ultrasound Report ? Signed ? Patient: Brian,Bradford J ?MR#: [id number] ?? [id number] ? : 1995 ?Acct:[id number] ? Age/Sex: 29 / M ?ADM Date: 01/20/25 ? Loc: HO.ED ? Attending Dr: ? Ordering Physician: Sedrick Grady MD ?? Date of Service: 09/09/24 ?? Procedure(s): US scrotum ?? Accession Number(s): [id number] ? cc: Name,Everett ROSE; Sedrick Grady MD ? CLINICAL HISTORY: testicular pain , no swelling ? US Scrotum with Doppler ? Comparison: US/NV/SR - US SCROTUM - 08/01/24 23:48 EST ? Findings: ?? Right testicle normal size and echotexture, 4.7 x 2.1 x 3.2 cm, ?? corresponds to a volume of 16.3 mL.. ?? Left testicle normal size and echotexture, 5.0 x 2.0 x 3.1 cm, corresponds ?? to a volume of 16.0 mL. ?? Color Doppler and arterial/venous spectral tracings of both testicles ?? within normal limits. ? A 2 mm right epididymal cyst otherwise,epididymides are unremarkable. ?? No varicoceles. No hydroceles. ? IMPRESSION: ?? Normal scrotal ultrasound. No evidence of torsion. ? This document has been electronically signed by: Sebastian Graham MD on ?? 09/09/2024 22:19:57 ? Dictated By: ?Sebastian Graham MD ? Signed By: ?<Electronically signed by Sebastian Graham MD in OV> ?09/09/24 2221 ? DD/ 18 ? TD/TT: 09/09/242218 ? [employer]: ? Procedure Note Aamir [place] - 09/09/2024 [place] [address] Ultrasound Report Signed Patient: Bradford Torres R#: [id number] : 1995Acct:[id number] Age/Sex: 29 / MADM Date: 09/09/24 Loc: HO.ED Attending Dr: Ordering Physician: Sedrick Grady MD Date of Service: 09/09/24 Procedure(s): US scrotum Accession Number(s): [id number] cc: Everett Angulo MD; Sedrick Grady MD CLINICAL HISTORY: testicular pain , no swelling US Scrotum with Doppler Comparison: US/NV/SR - US SCROTUM - 08/01/24 23:48 EST Findings: Right testicle normal size and echotexture, 4.7 x 2.1 x 3.2 cm, corresponds to a volume of 16.3 mL.. Left testicle normal size and echotexture, 5.0 x 2.0 x 3.1 cm, corresponds to a volume of 16.0 mL. Color Doppler and arterial/venous spectral tracings of both testicles within normal limits. A 2 mm right epididymal cyst otherwise,epididymides are unremarkable. No varicoceles. No hydroceles. IMPRESSION: Normal scrotal ultrasound. No evidence of torsion. This document has been electronically signed by: Sebastian Graham MD on 09/09/2024 22:19:57 Dictated By: Sebastian Graham MD Signed By: <Electronically signed by Sebastian Graham MD in OV> 09/09/242220 DD/ 18 TD/TT: 09/09/242218 [employer]: us [facility] External Provider IMG US PROCEDURES Final Result * Lactic Acid (09/09/2024 8:47 PM EST) Lactic Acid 0.8 0.5 - 2.0 mmol/L [facility] 09/09/2024 8:47 PM EST 09/09/2024 8:53 PM EST Narrative [facility] - 09/09/2024 9:09 PM EST NOT ON ICE Generic External Data Provider LAB BLOOD ORDERAB LES Final Result [facility] [address] [place] [phone] * (ABNORMAL) Comprehensive Metabolic Panel (09/09/2024 8:17 PM EST) Sodium 136 135 - 145 mmol/L [facility] Potassium 3.9 3.3 - 5.1 mmol/L [facility] Chloride 104 96 - 108 mmol/L [facility] Carbon Dioxide 21(L) 22 - 29 mmol/L [facility] Anion Gap 15 12 - 20 [facility] Urea Nitrogen (BUN) 15 9 - 16 mg/dL [facility] Creatinine, Serum 0.60 0.5 - 1.4 mg/dL [facility] Creatinine Clr Calc Pharmacy 178.3 [facility] Comment:eGFR (calculated fro m the MDRD study equation) and eCrCl(calculated from the Cockcroft-Gault equation) are based ondifferent parameters and may not yield comparable results.If eCrCl result is absurd, please check patient'sheight/weight. Estimated Glomerular Filt Rate >60 [facility] Comment:Chronic Kidney Disea se: Estimated GFR < 60 mL/min/1.14q0Rsqpia Kidney Disease: Estimated GFR < 15 mL/min/1.73m2 Glucose 112 60 - 115 mg/dL [facility] Calcium 8.6 8.4 - 10.2 mg/dL [facility] Bilirubin, Total 0.4 0.0 - 1.0 mg/dL [facility] Aspartate Amino Transferase 18 5 - 37 U/L [facility] Alanine Aminotransferase 12 0 - 40 U/L [facility] Total Protein 7.4 6.5 - 8.0 g/dL [facility] Albumin Level 4.2 3.5 - 5.0 g/dL [facility] Alkaline Phosphatase 64 39 - 117 U/L [facility] 09/09/2024 8:17 PM EST 09/09/2024 8:19 PM EST us Generic External Data Provider LAB BLOOD ORDERAB LES Final Result [facility] [address] [place] [phone] [phone] * (ABNORMAL) CBC auto differential (09/09/2024 8:17 PM EST) White Blood Count 7.7 4.8 - 10.8 X10*3/uL [facility] Red Blood Count 4.72 4.60 - 5.80 X10*6/uL [facility] Hemoglobin 12.4(L) 14.0 - 18.0 g/dl [facility] Hematocrit 36.7(L) 42.0 - 52.0 % [facility] Mean Corpuscular Volume 77.8(L) 80.0 - 98.0 fL [facility] Mean Corpuscular Hemoglobin 26.3(L) 27.0 - 33.0 pg [facility] Mean Corpuscular HGB Conc 33.8 31.0 - 36.0 g/dl [facility] Red Cell Distribution Width 13.9 11.0 - 16.0 % [facility] Platelet Count 236 160 - 400 X10*3/uL [facility] Mean Platelet Volume 9.4 9.4 - 12.4 fL [facility] Neutrophils Percent Auto 71.7 45 - 73 % [facility] Imm Gran Pct Auto 0.1 0.0 - 0.4 % [facility] Lymphocytes Percent Auto 15.8(L) 20 - 40 % [facility] Monocytes Percent Auto 10.3 2 - 11 % [facility] Eosinophils Percent Auto 1.6 0 - 4 % [facility] Basophils Percent Auto 0.5 0 - 2 % [facility] NRBC Pct Auto 0.0 0.0 - 0.2 /100WBC [facility] Neutrophils Absolute Auto 5.5 2.0 - 8.3 x10*3/uL [facility] Imm Gran Abs Auto 0.01 0.00 - 0.03 X10*3/uL [facility] Lymphocytes Absolute Auto 1.2 1.2 - 4.9 X10*3/uL [facility] Monocytes Absolute Auto 0.8 0.1 - 1.2 X10*3/uL [facility] Eosinophils Absolute Auto 0.1 0.0 - 0.4 X10*3/uL [facility] Basophils Absolute Auto 0.0 0.0 - 0.2 X10*3/uL [facility] NRBC Abs Auto 0.000 0.0 - 0.012 X10*3/uL [facility] 09/09/2024 8:17 PM EST 09/09/2024 8:19 PM EST us Generic External Data Provider LAB BLOOD ORDERAB LES Final Result [facility] [address] [place] [address] [phone] * US Scrotum (09/09/2024 7:23 PM EST) Anatomical Region Laterality Modality Body Ultrasound 09/09/2024 7:23 PM EST Narrative 09/10/2024 8:23 AM EST ? [facility] ?[address] ?[place] [address] ? Ultrasound Report ? Signed ? Patient: Bradford Torres ?MR#: [id number] ?? [id number] ? : 1995 ?Acct:[id number] ? Age/Sex: 29 / M ?ADM Date: 09/09/24 ? Loc: HO.ED ? Attending Dr: ? Ordering Physician: Sedrick Grady MD ?? Date of Service: 09/09/24 ?? Procedure(s): US scrotum ?? Accession Number(s): [id number] ? cc: Everett Angulo MD; Sedrick Grady MD ? CLINICAL HISTORY: Testicular Pain ? US Scrotum with Doppler ? Comparison: US/NV/SR - US SCROTUM - 08/01/24 23:48 EST ? Findings: Limited exam. Patient was unable to complete the exam due to ?? pain. The left testicle is not evaluated. ?? Right testicle normal size and echotexture, 4.3 x 2.3 x 2.9 cm, ?? corresponds to a volume of 15.0 mL ?? Left testicle is not evaluated. ?? Color Doppler and arterial/venous spectral tracings of right testicle ?? within normal limits. There is apparent hyperemia of the left testis on ?? ffhy-lu-elpr comparison image. ? A 2 mm cyst is noted within the right epididymis otherwise unremarkable. ?? No hydroceles or varicoceles of the right testis. ? IMPRESSION: ?? Limited exam due to patient unable to complete the study. Apparent ?? hyperemia of the left testis on mync-yb-ctzn comparison image may ?? represent orchitis. Recommend completion of the study once the patient ?? condition improves. ? This document has been electronically signed by: Sebastian Graham MD on ?? 09/09/2024 19:23:23 ? Dictated By: ?Sebastian Graham MD ? Signed By: ?<Electronically signed by Sebastian Graham MD in OV> ?09/10/24821 ? DD/ 22 ? TD/TT: 09/09/243 ? [employer]: ? Procedure Note Donotuseinterpreter, Image - 09/10/2024 [place] [address] Ultrasound Report Signed Patient: Bradford Torres JMR#: [id number] : 1995Acct:[id number] Age/Sex: 29 / MADM Date: 09/09/24 Loc: HO.ED Attending Dr: Ordering Physician: Sedrick Grady MD Date of Service: 09/09/24 Procedure(s): US scrotum Accession Number(s): [id number] cc: Everett Angulo MD; Sedrick Grady MD CLINICAL HISTORY: Testicular Pain US Scrotum with Doppler Comparison: US/NV/SR - US SCROTUM - 08/01/24 23:48 EST Findings: Limited exam. Patient was unable to complete the exam due to pain. The left testicle is not evaluated. Right testicle normal size and echotexture, 4.3 x 2.3 x 2.9 cm, corresponds to a volume of 15.0 mL Left testicle is not evaluated. Color Doppler and arterial/venous spectral tracings of right testicle within normal limits. There is apparent hyperemia of the left testis on tjfw-ow-izrd comparison image. A 2 mm cyst is noted within the right epididymis otherwise unremarkable. No hydroceles or varicoceles of the right testis. IMPRESSION: Limited exam due to patient unable to complete the study. Apparent hyperemia of the left testis on ythl-xz-kpwp comparison image may represent orchitis. Recommend completion of the study once the patient condition improves. This document has been electronically signed by: Sebastian Graham MD on 09/09/2024 19:23:23 Dictated By: Sebastian Graham MD Signed By: <Electronically signed by Sebastian Graham MD in OV> 09/10/24821 DD/ 22 TD/TT: 09/09/241922 [employer]: us [facility] External Provider IMG US PROCEDURES Edited Result - Final * US SCROTUM DOPPLER (09/09/2024 7:23 PM EST) Anatomical Region Laterality Modality Abdomen Ultrasound 09/09/2024 7:23 PM EST Narrative 09/09/2024 7:24 PM EST ? [facility] ?[address] ?[place], [place] [address] ? Ultrasound Report ? Signed ? Patient: Bradford Torres ?MR#: [id number] ?? [id number] ? : 1995 ?Acct:[id number] ? Age/Sex: 29 / M ?ADM Date: 09/09/24 ? Loc: HO.ED ? Attending Dr: ? Ordering Physician: Sedrick Grady MD ?? Date of Service: 09/09/24 ?? Procedure(s): US scrotum doppler ?? Accession Number(s): [id number] ? cc: Everett Angulo MD; Sedrick Grady MD ? CLINICAL HISTORY: Testicular Pain ? US Scrotum with Doppler ? Comparison: US/NV/SR - US SCROTUM - 08/01/24 23:48 EST ? Findings: Limited exam. Patient was unable to complete the exam due to ?? pain. The left testicle is not evaluated. ?? Right testicle normal size and echotexture, 4.3 x 2.3 x 2.9 cm, ?? corresponds to a volume of 15.0 mL ?? Left testicle is not evaluated. ?? Color Doppler and arterial/venous spectral tracings of right testicle ?? within normal limits. There is apparent hyperemia of the left testis on ?? rqvp-ex-krge comparison image. ? A 2 mm cyst is noted within the right epididymis otherwise unremarkable. ?? No hydroceles or varicoceles of the right testis. ? IMPRESSION: ?? Limited exam due to patient unable to complete the study. Apparent ?? hyperemia of the left testis on bgwm-ti-lvlf comparison image may ?? represent orchitis. Recommend completion of the study once the patient ?? condition improves. ? This document has been electronically signed by: Sebastian Graham MD on ?? 09/09/2024 19:23:23 ? Dictated By: ?Sebastian Graham MD ? Signed By: ?<Electronically signed by Sebastian Graham MD in OV> ?09/09/241923 ? DD/ 22 ? TD/TT: 09/09/241922 ? [employer]: ? Procedure Note Donotuseinterpreter, Image - 09/09/[address] [address] Ultrasound Report Signed Patient: Bradford Torres JMR#: [id number] : 1995Acct:[id number] Age/Sex: 29 MAD Date: 09/09/24 Loc: HO.ED Attending Dr: Ordering Physician: Sedrick Grady MD Date of Service: 09/09/24 Procedure(s): US scrotum doppler Accession Number(s): [id number] cc: Everett Angulo MD; Sedrick Grady MD CLINICAL HISTORY: Testicular Pain US Scrotum with Doppler Comparison: US/NV/SR - US SCROTUM - 08/01/24 23:48 EST Findings: Limited exam. Patient was unable to complete the exam due to pain. The left testicle is not evaluated. Right testicle normal size and echotexture, 4.3 x 2.3 x 2.9 cm, corresponds to a volume of 15.0 mL Left testicle is not evaluated. Color Doppler and arterial/venous spectral tracings of right testicle within normal limits. There is apparent hyperemia of the left testis on yrhx-fw-vdvy comparison image. A 2 mm cyst is noted within the right epididymis otherwise unremarkable. No hydroceles or varicoceles of the right testis. IMPRESSION: Limited exam due to patient unable to complete the study. Apparent hyperemia of the left testis on svgy-uo-zpxw comparison image may represent orchitis. Recommend completion of the study once the patient condition improves. This document has been electronically signed by: Sebastian Graham MD on 09/09/2024 19:23:23 Dictated By: Sebastian Graham MD Signed By: <Electronically signed by Sebastian Graham MD in OV> 09/09/241923 DD/ 22 TD/TT: 09/09/241922 [employer]: us [facility] External Provider IMG US PROCEDURES Final Result * Urinalysis w/reflex microscopic (09/09/2024 6:42 PM EST) Color Urine Yellow [facility] Appearance Urine Clear [facility] PH >=9.0 5.0 - 9.0 [facility] Glucose Urine UA Negative Negative mg/dL [facility] Urine Blood Negative Negative [facility] Specific [place] - Urine 1.025 1.005 - 1.025 [facility] Urine Protein Negative Neg-Trace mg/dL [facility] Urine Ketones 15 Negative mg/dL [facility] Nitrite Urine Negative Negative [facility] Leukocyte Esterase Urine Negative Negative [facility] 09/09/2024 6:42 PM EST 09/09/2024 6:44 PM EST Narrative [facility] - 09/09/2024 6:59 PM EST Urine, Clean Catch us Generic External Data Provider LAB URINE ORDERAB LES Final Result Performing Organization Address City/State/[facility] Co de Phone Number [facility] [address] [place] [phone] documented in this encounter Visit Diagnoses Not on filedocumented in this encounter Additional Health Concerns Assessment Noted Time PHQ-9 Depression Total Score: 20 024 2:42 PM EDT documented as of this encounter Care Teams Ammonia Print Operator Relationship Specialty Start Date End Date Name, MD Everett [address] [place] [phone] PCP - General Internal Medicine 04/19/24 Chris Pack Jr Manager UtilitiesStaff Forester 09/04/24 documented as of this encounter
--- OUTSIDE RECORDS SUMMARY | 2024-09-13 15:54 | XMS_ITS | Encounter Summary ---
Author Organization [employer] Address [address] [facility] [address] [place] [address] Care Team Providers Care Paid Search Marketing Strategist Name Role Phone Amna Urrutia Primary Care Provider [phone] NameEverett MD Primary Care Provider [phone] Encounter Details Date Type Department Care Team (Late st Contact Info) Description 10/21/[address] [facility] [address] [place] [address] Marycruz Oseguera DDS [address] [place] [address] Social History Tobacco Use Types Packs/Day Years Used Date Smoking Tobacco: Every Day Cigarettes Smokeless Tobacco: Never Sex and Gender Information Value Date Recorded Sex Assigned at Male 10/18/2022 3:33 PM EST Legal Sex Male 3:31 PM EST Gender Identity Male 10/18/2022 3:33 PM EST Sexual Orientation Choose not to disclose 2022 3:33 PM EST COVID-19 Exposure Response Date Recorded In the last 10 days, have yo u been in contact with someone who was confirmed or suspected to have Coronavirus/COVID-19? No / Unsure 10/18/2022 3:38 PM EST documented as of this encounter Plan of Treatment Upcoming Encounters Date Type Department Care Team (Late st Contact Info) Description 10/08/2024 10:15 AM EST Office Visit [facility] [address] [place] [address] Name, MD Everett [address] [place] [address] documented as of this encounter Visit Diagnoses Not on filedocumented in this encounter Care Teams Paid Search Marketing Strategist Relationship Specialty Start Date End Date Amna Urrutia FNP [address] [place] [address] PCP - General Family Medicine 01/01/23 04/18/24 Everett Angulo MD [address] [place] [address] PCP - General Internal Medicine 04/19/24 Chris Pack Jr Manager Of HospitalCuff Turner Machine Operator 09/04/24 documented as of this encounter
--- OUTSIDE RECORDS SUMMARY | 2024-09-13 15:54 | XMS_ITS | Encounter Summary ---
Author Organization [employer] Address [address] [facility] [address] [place] [address] Care Team Providers Care Acid Cleaner Name Role Phone Amna Urrutia Primary Care Provider Name, Everett ROSE Primary Care Provider [phone] Reason for Visit * Reason Onset Date Comments Med Refill 07/15/2023 Encounter Details Date Type Department Care Team (Late st Contact Info) Description 07/15/2023 Refill [facility] [address] [place] [address] Amna Urrutia FNP [address] [place] [address] Social History Tobacco Use Types Packs/Day Years [...] Description 10/08/2024 10:15 AM EST Office Visit [facility] MED[facility] [address] [place] [phone] NameEverett MD [address] [place] [phone] documented as of this encounter Visit Diagnoses Not on filedocumented in this encounter Additional Health Concerns Assessment Noted Time PHQ-9 Depression Total Score: 16 023 8:52 AM EDT documented as of this encounter Care Teams Acid Cleaner Relationship Specialty Start Date End Date Amna Urrutia FNP [address] [place] [address] PCP - General Family Medicine 01/01/23 04/18/24 NameEverett MD [address] [place] [phone] PCP - General Internal Medicine 04/19/24 Chris Pack Jr Register Of WillsVan Loader 09/04/24 documented as of this encounter
--- OUTSIDE RECORDS SUMMARY | 2024-09-13 15:54 | XMS_ITS | Encounter Summary ---
Author Organization [employer] Address 75 [facility] 7t [place] [address] Care Team Providers Care Senior Windows Administrator Name Role Phone Name, Everett ROSE Primary Care Provider [phone] Encounter Details Date Type Department Care Team (Late st Contact Info) Description 09/01/2024 Orders Only GENERIC EXTERNAL DATA DEPARTMENT Provider, [...] Description 10/08/2024 10:15 AM EST Office Visit [facility] MEDICINE [address] [place] [address] Name, MD Everett [address] [place] [address] documented as of this encounter Procedures Procedure Name Priority Date/Time Associated Diagnosis Comments GLUCOSE, WHOLE BLOOD Routine 09/01/2024 6:08 PM EST GLUCOSE, WHOLE BLOOD Routine 09/01/2024 12:[address] ABDOMEN PELVIS W CONTRAST Routine 09/01/2024 10:50 AM EST BETA-HYDROXYBUTYRATE Routine 09/01/2024 9:30 AM EST CBC WITH AUTO DIFFERENTIAL Routine 09/01/2024 9:30 AM EST C-REACTIVE PROTEIN Routine 09/01/2024 9: 30 AM EST COMPREHENSIVE METABOLIC PANEL Routine 09/01/2024 9:30 AM EST documented in this encounter Results * (ABNORMAL) Glucose, Whole Blood (09/01/2024 6:08 PM EST) Glucose, Whole Blood 151(H) 60 - 115 mg/dL [facility] Comment:METER #: [id number] 09/01/2024 6:08 PM EST 09/01/2024 6:15 PM EST us Generic External Data Provider LAB BLOOD ORDERAB LES Final Result Performing Organization Address [facility] de Phone Number [facility] [address] [place] [address] [phone] * (ABNORMAL) Glucose, Whole Blood (09/01/2024 12:19 PM EST) Glucose, Whole Blood 172(H) 60 - 115 mg/dL [facility] Comment:METER #: [id number] 09/01/2024 12:1 9 PM EST 09/01/2024 12:22 PM EST us Generic External Data Provider LAB BLOOD ORDERAB LES Final Result Performing Organization Address [facility] de Phone Number [facility] [address] [place] [address] [phone] * CT Abdomen Pelvis w/ Contrast (09/01/2024 10:50 AM EST) Anatomical Region Laterality Modality Body, Pelvis, Abdomen Computed T omography 09/01/2024 10:5 0 AM EST Narrative 09/01/2024 6:48 PM EST ? [facility] ?[address] ?[place] [address] ? CT Scan Report ? Signed ? Patient: Bradford Torres ?MR#: [id number] ?? [id number] ? : 1995 ?Acct:[id number] ? Age/Sex: 29 / M ?ADM Date: 09/01/24 ? Loc: HO.ED ? Attending Dr: ? Ordering Physician: Ulises Dejesus MD ?? Date of Service: 09/01/24 ?? Procedure(s): CT abdomen pelvis w IV con ?? Accession Number(s): [id number] ? cc: Ulises Dejesus MD; [facility] ? Report Number: ?? [id number]: Total DLP = ??378.00 mGy-cm ? CLINICAL HISTORY: abdominal pain ? CT abdomen and pelvis with contrast ? Comparison: None ? Findings: ?? The lung bases are clear. ? Unremarkable gallbladder and solid organs. No urolithiasis. ?? No bowel obstruction, pneumoperitoneum, or pneumatosis. ? Pelvic contents unremarkable. Normal appendix. ?? No acute fracture. ? IMPRESSION: ?? No acute findings. ? This document has been electronically signed by: Lance Chamberlain MD on ?? 09/01/2024 10:50:06 ? Dictated By: ?Lance Chamberlain MD ? Signed By: ?<Electronically signed by Lance Chamberlain MD in OV> ?09/01/24 1849 ? DD/ 1050 ? TD/TT: 09/01/24 1050 ? Psychologist Developmental: ? Procedure Note [place], Image - 09/01/[address] [address] [address] Scan Report Signed Patient: Bradford Torres JMR#: [id number] : 1995Acct:[id number] Age/Sex: 29 / MADM Date: 09/01/24 Loc: HO.ED Attending Dr: Ordering Physician: Ulises Dejesus MD Date of Service: 09/01/24 Procedure(s): CT abdomen pelvis w IV con Accession Number(s): [id number] cc: Ulises Dejesus MD; [facility] Report Number: [id number]: Total DLP = 378.00 mGy-cm CLINICAL HISTORY: abdominal pain CT abdomen and pelvis with contrast Comparison: None Findings: The lung bases are clear. Unremarkable gallbladder and solid organs. No urolithiasis. No bowel obstruction, pneumoperitoneum, or pneumatosis. Pelvic contents unremarkable. Normal appendix. No acute fracture. IMPRESSION: No acute findings. This document has been electronically signed by: Lance Chamberlain MD on 09/01/2024 10:50:06 Dictated By: Lance Chamberlain MD Signed By: <Electronically signed by Lance Chamberlain MD in OV> 09/01/24 1849 DD/ 105 TD/TT: 09/01/24 105 Psychologist Developmental: [facility] External Provider IMG CT PROCEDURES Edited Result - Final * C-reactive Protein (09/01/2024 9:30 AM EST) C Reactive Protein <0.10 < or = 0.50 mg/dL [facility] 09/01/2024 9:30 AM EST 09/01/2024 9:34 AM EST Generic External Data Provider LAB BLOOD ORDERAB LES Final Result Performing Organization Address [facility] Co de Phone Number [facility] [address] [place] [phone] * (ABNORMAL) Beta-Hydroxybutyrate (09/01/2024 9:30 AM EST) Pathologist [facility] Beta-Hydroxybu tyrate 1.28(H) 0.02 - 0.27 mmol/L [facility] 09/01/2024 9:30 AM EST 09/01/2024 9:34 AM EST [employer] External Data Provider LAB BLOOD ORDERAB LES Final Result Performing Organization Address [facility] de Phone Number [facility] [address] [place] [phone] * (ABNORMAL) Comprehensive Metabolic Panel (09/01/2024 9:30 AM EST) Pathologist [facility] Sodium 136 135 - 145 mmol/L [facility] Potassium 4.9 3.3 - 5.1 mmol/L [facility] Comment:Slight Hemolysis.Int erpret result with caution. Chloride 103 96 - 108 mmol/L [facility] Carbon Dioxide 20(L) 22 - 29 mmol/L [facility] Anion Gap 18 12 - 20 [facility] Urea Nitrogen (BUN) 21(H) 9 - 16 mg/dL [facility] Creatinine, Serum 0.92 0.5 - 1.4 mg/dL [facility] Creatinine Clr Calc Pharmacy 101.6 [facility] Comment:eGFR (calculated fro m the MDRD study equation) and eCrCl(calculated from the Cockcroft-Gault equation) are based ondifferent parameters and may not yield comparable results.If eCrCl result is absurd, please check patient'sheight/weight. Estimated Glomerular Filt Rate >60 [facility] Comment:Chronic Kidney Disea se: Estimated GFR < 60 mL/min/[id number] Kidney Disease: Estimated GFR < 15 mL/min/1.73m2 Glucose 347(H) 60 - 115 mg/dL [facility] Calcium 10.5(H) 8.4 - 10.2 mg/dL [facility] Bilirubin, Total 0.7 0.0 - 1.0 mg/dL [facility] Aspartate Amino Transferase 24 5 - 37 U/L [facility] Comment:Slight Hemolysis.Int erpret result with caution. Alanine Aminotransferase 18 0 - 40 U/L [facility] Total Protein 8.4(H) 6.5 - 8.0 g/dL [facility] Albumin Level 4.9 3.5 - 5.0 g/dL [facility] Alkaline Phosphatase 77 39 - 117 U/L [facility] 09/01/2024 9:30 AM EST 09/01/2024 9:34 AM EST us Generic External Data Provider LAB BLOOD ORDERAB LES Final Result [facility] [address] [place] [phone] * (ABNORMAL) CBC auto differential (09/01/2024 9:30 AM EST) White Blood Count 9.3 4.8 - 10.8 X10*3/uL [facility] Red Blood Count 5.56 4.60 - 5.80 X10*6/uL [facility] Hemoglobin 14.5 14.0 - 18.0 g/dl [facility] Hematocrit 42.8 42.0 - 52.0 % [facility] Mean Corpuscular Volume 77.0(L) 80.0 - 98.0 fL [facility] Mean Corpuscular Hemoglobin 26.1(L) 27.0 - 33.0 pg [facility] Mean Corpuscular HGB Conc 33.9 31.0 - 36.0 g/dl [facility] Red Cell Distribution Width 14.0 11.0 - 16.0 % [facility] Platelet Count 291 160 - 400 X10*3/uL [facility] Mean Platelet Volume 10.1 9.4 - 12.4 fL [facility] Neutrophils Percent Auto 82.8(H) 45 - 73 % [facility] Imm Gran Pct Auto 0.2 0.0 - 0.4 % [facility] Lymphocytes Percent Auto 14.5(L) 20 - 40 % [facility] Monocytes Percent Auto 1.7(L) 2 - 11 % [facility] Eosinophils Percent Auto 0.2 0 - 4 % [facility] Basophils Percent Auto 0.6 0 - 2 % [facility] NRBC Pct Auto 0.0 0.0 - 0.2 /100WBC [facility] Neutrophils Absolute Auto 7.7 2.0 - 8.3 x10*3/uL [facility] Imm Gran Abs Auto 0.02 0.00 - 0.03 X10*3/uL [facility] Lymphocytes Absolute Auto 1.4 1.2 - 4.9 X10*3/uL [facility] Monocytes Absolute Auto 0.2 0.1 - 1.2 X10*3/uL [facility] Eosinophils Absolute Auto 0.0 0.0 - 0.4 X10*3/uL [facility] Basophils Absolute Auto 0.1 0.0 - 0.2 X10*3/uL [facility] NRBC Abs Auto 0.000 0.0 - 0.012 X10*3/uL [facility] 09/01/2024 9:30 AM EST 09/01/2024 9:34 AM EST us Generic External Data Provider LAB BLOOD ORDERAB LES Final Result [facility] [address] [place] [phone] [phone] documented in this encounter Visit Diagnoses Not on filedocumented in this encounter Additional Health Concerns Assessment Noted Time PHQ-9 Depression Total Score: 20 024 2:42 PM EDT documented as of this encounter Care Teams Senior Windows Administrator Relationship Specialty Start Date End Date Name, MD Everett [address] [place] [address] PCP - General Internal Medicine 04/19/24 documented as of this encounter
--- OUTSIDE RECORDS SUMMARY | 2024-09-13 15:54 | XMS_ITS | Encounter Summary ---
Author Organization [employer] Address [address] [facility] [address] [place] [address] Care Team Providers Care Snap Shearer Name Role Phone Name, Everett ROSE Primary Care Provider [phone] Reason for Visit * Reason Comments Med Refill Encounter Details Date Type Department Care Team (Late st Contact Info) Description 05/03/[address] [facility] [address] [place], [place] [phone] Amna Urrutia FNP [address] [place] [address] Type 1 diabetes mellitus with hyperglycemia (CMS/HCC) [...] 10:15 AM EST Office Visit [facility] MEDICINE [address] [place] [phone] Name, MD Everett [address] [place] [address] documented as of this encounter Visit Diagnoses Diagnosis Type 1 diabetes mellitus with hyperglycemia (CMS/HCC) documented in this encounter Additional Health Concerns Assessment Noted Time PHQ-9 Depression Total Score: 20 024 2:42 PM EDT documented as of this encounter Care Teams Snap Shearer Relationship Specialty Start Date End Date NameEverett MD [address] [place] [phone] PCP - General Internal Medicine 04/19/24 Chris Pack Jr Nurse Discharge PlannerPodiatrist Orthopedic 09/04/24 documented as of this encounter
--- OUTSIDE RECORDS SUMMARY | 2024-09-13 15:54 | XMS_ITS | Encounter Summary ---
Author Organization [employer] Address 75 [facility] 7t [place] [address] Care Team Providers Care Multiple Spindle Router Operator Name Role Phone Amna Urrutia Primary Care Provider [phone] Name, Everett ROSE Primary Care Provider [phone] Reason for Visit * Reason Onset Date Comments Med Refill 09/27/2023 Encounter Details Date Type Department Care Team (Late st Contact Info) Description 09/27/2023 Refill [facility] MEDICINE [address] [place] [address] Amna Urrutia FNP [address] [place] [address] Type 1 diabetes mellitus with hyperglycemia ([facility]) Social History Tobacco Use Types Packs/Day [...] Description 10/08/2024 10:15 AM EST Office Visit [facility] MEDICINE [address] [place] [phone] Everett Angulo MD [address] [place] [address] documented as of this encounter Visit Diagnoses Diagnosis Type 1 diabetes mellitus with hyperglycemia (CMS/HCC) documented in this encounter Additional Health Concerns Assessment Noted Time PHQ-9 Depression Total Score: 16 023 8:52 AM EDT documented as of this encounter Care Teams Multiple Spindle Router Operator Relationship Specialty Start Date End Date Amna Urrutia FNP [address] [place] [address] PCP - General Family Medicine 01/01/23 04/18/24 Everett Angulo MD [address] [place] [address] PCP - General Internal Medicine 04/19/24 Chris Pack Jr Leaf StripperExhibit Carpenter 09/04/24 documented as of this encounter
--- OUTSIDE RECORDS SUMMARY | 2024-09-13 15:54 | XMS_ITS | Encounter Summary ---
Author Organization [employer] Address 75 [facility] 7t [place] [address] Care Team Providers Care C Programmer Name Role Phone Amna Urrutia Primary Care Provider [phone] Name, Everett ROSE Primary Care Provider [phone] Reason for Visit * Reason Comments Med Refill Encounter Details Date Type Department Care Team (Late st Contact Info) Description 09/08/2023 Refill [facility] MEDICINE [address] [place] [address] Amna Urrutia FNP [address] [place] [address] Type 1 diabetes mellitus with hyperglycemia (CMS/[facility]) Social History Tobacco Use Types Packs/Day Years [...] Description 10/08/2024 10:15 AM EST Office Visit [facility] MEDICINE [address] [place] [phone] NameEverett MD [address] [place] [address] documented as of this encounter Visit Diagnoses Diagnosis Type 1 diabetes mellitus with hyperglycemia (CMS/[facility]) documented in this encounter Additional Health Concerns Assessment Noted Time PHQ-9 Depression Total Score: 16 023 8:52 AM EDT documented as of this encounter Care Teams C Programmer Relationship Specialty Start Date End Date Amna Urrutia FNP [address] [place] [address] PCP - General Family Medicine 01/01/23 04/18/24 NameEverett MD [address] [place] [address] PCP - General Internal Medicine 04/19/24 Chris Pack Jr Distance Learning Unit LeaderSupervisor [employer] 09/04/24 documented as of this encounter
--- OUTSIDE RECORDS SUMMARY | 2024-09-13 15:54 | XMS_ITS | Encounter Summary ---
Author Organization [employer] Address 75 [facility] 7t [place] [address] Care Team Providers Care Learning Support Resource Room Teacher Name Role Phone Amna Urrutia Primary Care Provider [phone] Name, Everett ROSE Primary Care Provider [phone] Reason for Visit * Reason Onset Date Comments Reschedule 02/14/2024 Encounter Details Date Type Department Care Team (Late st Contact Info) Description 02/14/2024 Telephone [facility] MEDICINE [address] [place] [address] Amna Urrutia FNP [address] [place] [address] Reschedule Social History Tobacco Use Types Packs/Day Years Used Date Smoking Tobacco: Some Days Cigarettes 0.5 10 Passive Smoke Exposure: Current Smokeless Tobacco: Never Alcohol Use Standard Drinks/Week Comments Yes 0 (1 standard drink = 0.6 oz pur e alcohol) occasional Depression Answer Date Recorded Patient Health Questionnaire-9 Score 10 11/09/2023 Patient Health Questionnaire-9 Score 10 11/09/2023 Last PHQ-9: Questionnaire Data Not on file 0 11/09/2023 Housing Stability Answer Date Recorded What is [...] Answer Date Recorded Patient Health Questionnaire-2 Score 1 11/09/2023 Sex and Gender Information Value Date Recorded Sex Assigned at Male 10/18/2022 3:33 PM EST Legal Sex Male 3:31 PM EST Gender Identity Male 10/18/2022 3:33 PM EST Sexual Orientation Choose not to disclose 2022 3:33 PM EST documented as of this encounter Miscellaneous Notes * Telephone Encounter - Irene Aquino - 02/14/2024 2:06 PM EDT Tc from pt requesting to reschedule 02/13 follow up extended appointment. Field Logistics Coordinator attempted to reschedule but no availability. Please contact pt at [phone] documented in this encounter Plan of Treatment Upcoming Encounters Date Type Department Care Team (Late st Contact Info) Description 10/08/2024 10:15 AM EST Office Visit [facility] MEDICINE [address] [place] [phone] NameEverett MD [address] [place] [address] documented as of this encounter Visit Diagnoses Not on filedocumented in this encounter Additional Health Concerns Assessment Noted Time PHQ-9 Depression Total Score: 10 024 1:01 PM EDT documented as of this encounter Care Teams Learning Support Resource Room Teacher Relationship Specialty Start Date End Date Amna Urrutia FNP [address] [place] [address] PCP - General Family Medicine 01/01/23 04/18/24 NameEverett MD [address] [place] [address] PCP - General Internal Medicine 04/19/24 Chris Pack Jr Shirt CreaserDisplayer 09/04/24 documented as of this encounter
--- OUTSIDE RECORDS SUMMARY | 2024-09-13 15:54 | XMS_ITS | Encounter Summary ---
Author Organization [employer] Address 75 [facility] 7t [place] [address] Care Team Providers Care Outdoor Landscape Architect Name Role Phone Amna Urrutia Primary Care Provider [phone] Name, Everett ROSE Primary Care Provider [phone] Reason for Visit * Reason Onset Date Comments Med Refill 07/28/2023 Encounter Details Date Type Department Care Team (Late st Contact Info) Description 07/28/2023 Refill [facility] MEDICINE [address] [place], [place] [phone] Denice Rubin MD [address] [place] [address] Social History Tobacco Use Types Packs/Day Years [...] 10:15 AM EST Office Visit [facility] MEDICINE [address] [place] [address] NameEverett MD [address] [place] [address] documented as of this encounter Visit Diagnoses Not on filedocumented in this encounter Additional Health Concerns Assessment Noted Time PHQ-9 Depression Total Score: 16 023 8:52 AM EDT documented as of this encounter Care Teams Outdoor Landscape Architect Relationship Specialty Start Date End Date Amna Urrutia FNP [address] [place] [address] PCP - General Family Medicine 01/01/23 04/18/24 NameEverett MD [address] [place] [address] PCP - General Internal Medicine 04/19/24 Chris Pack Jr Attraction AttendantDirector Data Analytics 09/04/24 documented as of this encounter
--- OUTSIDE RECORDS SUMMARY | 2024-09-13 15:54 | XMS_ITS | Encounter Summary ---
Author Organization [employer] Address 75 [facility] 7t [place] [address] Care Team Providers Care In Mold Coater Name Role Phone Amna Urrutia Primary Care Provider [phone] Name, Everett ROSE Primary Care Provider [phone] Reason for Visit * Reason Onset Date Comments Med Refill 07/28/2023 Encounter Details Date Type Department Care Team (Late st Contact Info) Description 07/28/2023 Refill [facility] MEDICINE [address] [place] [address] Amna Urrutia FNP [address] [place] [address] Social History Tobacco Use Types Packs/Day Years [...] Description 10/08/2024 10:15 AM EST Office Visit [facility] MEDICINE [address] [place] [address] NameEverett MD [address] [place] [address] documented as of this encounter Visit Diagnoses Not on filedocumented in this encounter Additional Health Concerns Assessment Noted Time PHQ-9 Depression Total Score: 16 023 8:52 AM EDT documented as of this encounter Care Teams In Mold Coater Relationship Specialty Start Date End Date Amna Urrutia FNP [address] [place] [address] PCP - General Family Medicine 01/01/23 04/18/24 NameEverett MD [address] [place] [address] PCP - General Internal Medicine 04/19/24 Chris Pack Jr Supervising Airplane PilotNarcotics Agent 09/04/24 documented as of this encounter
--- OUTSIDE RECORDS SUMMARY | 2024-09-13 15:54 | XMS_ITS | Encounter Summary ---
Author Organization [employer] Address [address] [facility] [address]t [place] [address] Care Team Providers Care Material Handling Technician Name Role Phone Name, Everett ROSE Primary Care Provider [phone] Reason for Visit * Reason Comments Nasal Congestion Encounter Details Date Type Department Care Team (Late st Contact Info) Description 09/13/2024 2:00 PM EST Office Visit [facility] [address], [place] [phone] Denice Rubin MD [address] [place] [address] Dry cough (Primary Dx); Wheeze Social History Tobacco Use Types Packs/Day Years Used Date Smoking Tobacco: Some Days Cigarettes 0.5 10 Passive Smoke Exposure: Current Smokeless Tobacco: Former Tobacco Cessation:Ready to Q uit: Not Asked; Counseling Given: Not Answered Alcohol Use Standard Drinks/Week Comments Yes 0 [...] PM EST documented as of this encounter Last Filed Vital Signs Vital Sign Reading Time Taken Comments Blood Pressure 117/81 09/13/2024 1:49 PM EST Pulse 107 09/13/2024 1:49 PM EST Temperature 36.9 ??C (98.5 ??F) 09/13/2024 1:49 PM ES T Respiratory Rate 20 09/13/2024 1:49 PM EST Oxygen Saturation 99% 09/13/2024 1:49 PM EST Inhaled Oxygen Concentration - - Weight 64.2 kg (141 lb 9.6 oz) 09/13/2024 1:49 P M EST Height 182.9 cm (6') 09/13/2024 1:49 PM EST Body Mass Index 19.2 09/13/2024 1:49 PM EST documented in this encounter Progress Notes * Kayy Hawkins - 09/13/2024 2:00 PM EST Subjective History was provided by the patient. Bradford Torres is a 29 y.o. male with PMHx of type 1 diabetes who presents for evaluation of symptoms of a URI. 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 Cough when able to produce phlegm is sticky and difficult to expectorate. Has not taken any OTC as he is concerned with interactions with Celebrex. Has not tested for COVID has no kits at home. Still had some acid reflux currently taking famotidine. Has good volume of water intake per report. No fever at present. Has not used inhaler as previously prescribed no noted wheezing at tyime of call. Patient is Type 1DM and reports BG a little high last night but overall has been ok. Pt reports his symptoms include cough, blood streaked and thick, congestion, and fatigue . Onset ofsymptoms was 4 days ago, unchanged since that time. Associated negative symptoms include fever, diarrhea, and chest pain. Evaluation to date: none. Treatment to date: none. He reports his sugars havebeen on the lower side with 56 as the lowest and causing him to feel fatigued. He notes he has tried taking showers to steam his congestion but this has caused him to vomit sometimes. Pt reports whenhe was a child he had an inhaler for a short time with relief. Objective Vitals: 09/13/24 1349 BP: 117/81 BP Location: Left arm Patient Position: Sitting BP Cuff Size: Adult Pulse: 107 Resp: 20 Temp: 98.5 ??F (36.9 ??C) TempSrc: Oral SpO2: 99% Weight: 141 lb 9.6 oz (64.2 kg) Height: 6' (1.829 m) Physical Exam Constitutional: Appearance: Normal appearance. Cardiovascular: Rate and Rhythm: Normal rate and regular rhythm. Heart sounds: Normal heart sounds. Pulmonary: Effort: Pulmonary effort is normal. Breath sounds: Wheezing (diffuse faint wheezing) present. No rhonchi or rales. Comments: Dry cough Skin: General: Skin is warm and dry. Neurological: Mental Status: Mental status is at baseline. Psychiatric: Behavior: Behavior normal. Office Visit on 09/13/2024 Component Date Value Ref Range Status Influenza B 09/13/2024 Negative Negative, Indeterminate Final Influenza A 09/13/2024 Negative Negative, Indeterminate Final Coronavirus Antigen PCR 09/13/2024 Negative Negative, Indeterminate, None Detected, Invalid, Specimen unsatisfactory for evaluation, Weakly Positive Final Problem List Items Addressed This Visit Dry cough - Primary Cough 3-4 days with thick sputum that pt describes as maroon colored. COVID, Flu and Strep negative. -CXR ordered today showed no acute cardiopulmonary abnormality. -ordered viral respiratory panel. Relevant Orders Influenza B (ID NOW Rapid Molecular) (Completed) Influenza A (ID NOW Rapid Molecular) (Completed) POCT COVID-19 Ag Goldman ID NOW (Completed) XR Chest 2 Views (Completed) Respiratory Viral Panel PCR Wheeze Faint wheezing on exam. Unknown hx of asthma. Was treated with albuterol in 04/2024. -given DUONeb in clinic with significant relief. -prescribed albuterol 108 (90 Base) MCG/ACT inhaler for PRN use. Relevant Medications albuterol (2.5 MG/3ML) 0.083% nebulizer solution 2.5 mg (Completed) Other Relevant Orders Influenza B (ID NOW Rapid Molecular) (Completed) Influenza A (ID NOW Rapid Molecular) (Completed) POCT COVID-19 Ag Goldman ID NOW (Completed) XR Chest 2 Views (Completed) -No evidence of acute disease process. Suspect persistent cough due to underlying URI. Symptoms mild. Faint wheezing on exam. -Will treat with albuterol and nebulizer solution. -ER precautions discussed. -Seek medical attention for worsening symptoms. I, Kayy Hawkins, am serving as a scribe to document services personally performed by Dr. Rob, based on the patient's response to questions by provider and providers statements to me. documented in this encounter Miscellaneous Notes * Assessment & Plan Note - Kayy Hawkins - 09/13/2024 2:28 PM ESTAssociated Problem(s): Dry cough Cough 3-4 days with thick sputum that pt describes as maroon colored. COVID, Flu and Strep negative. -CXR ordered today showed no acute cardiopulmonary abnormality. -ordered viral respiratory panel. * Assessment & Plan Note - Kayy Hawkins - 09/13/2024 2:05 PM ESTAssociated Problem(s): Wheeze Faint wheezing on exam. Unknown hx of asthma. Was treated with albuterol in 04/2024. -given DUONeb in clinic with significant relief. -prescribed albuterol 108 (90 Base) MCG/ACT inhaler for PRN use. documented in this encounter Plan of Treatment Upcoming Encounters Date Type Department Care Team (Late st Contact Info) Description 10/08/2024 10:15 AM EST Office Visit [facility] [address] [place] [address] Name, MD Everett [address] [place] [address] Scheduled Orders Name Type Priority Associated Diagnoses Orde r Schedule Respiratory Viral Panel PCR Lab Routine Dry cough Ordered: 09/13/2024 documented as of this encounter Procedures Procedure Name Priority Date/Time Associated Diagnosis Comments XR CHEST 2 VIEWS Routine 09/13/2024 2:12 PM EST Dry cough Wheeze POCT INFLUENZA B (ID NOW RAPID MOLECULAR) Routine 09/13/2024 2:06 PM EST Dry cough Wheeze POCT INFLUENZA A (ID NOW RAPID MOLECULAR) Routine 09/13/2024 2:06 PM EST Dry cough Wheeze POCT COVID-19 AG GOLDMAN ID NOW Routine 09/13/2024 2:06 PM EST Dry cough Wheeze documented in this encounter Results * XR Chest 2 Views (09/13/2024 2:12 PM EST) Anatomical Region Laterality Modality Chest Radiographic Sheri ging 09/13/2024 2:12 PM EST Narrative 09/13/2024 2:33 PM EST ?[facility] ?[address] ?[place] [address] ?XRay Report ? Signed ? Patient: Torres,Bradford J ?MR#: [id number] ?? [id number] ? : 1995 ?Acct:[id number] ? Age/Sex: 29 / M ?ADM Date: /24/25 ? Loc: HO.HHCX ? Attending Dr: Denice Rubin MD ? Ordering Physician: Denice Rubin MD ?? Date of Service: 09/13/24 ?? Procedure(s): XR chest 2V ?? Accession Number(s): [id number] ? cc: Denice Rubin MD ? EXAMINATION: ??XR CHEST 2 VIEWS ? HISTORY: cough and wheeze globally ? COMPARISON: Comparison is made with the prior examination dated ?? 04/13/2024. ? FINDINGS: ??PA and lateral views of the chest are submitted. The lungs ?? are expanded and clear. ??There is no pleural effusion, pneumothorax, or ?? pulmonary vascular congestion. ??The heart is normal in size. ??The bones ?? are intact. ? XR/XR chest 2V ?? IMPRESSION: ?? No acute cardiopulmonary abnormality. ? Electronically signed by: ??August Clark MD ??09/13/2024 02:29 PM EST ? Dictated By: ?August Clark MD ? Signed By: ?<Electronically signed by August Clark MD in OV> ?09/13/24 1429 ? DD/ 1412 ? TD/TT: 09/13/24 1422 ? Order Administrator: ? Procedure Note Geovanna, Image - 09/13/[address] [address] XRay Report Signed Patient: Bradford Torres R#: [id number] : 1995Acct:[id number] Age/Sex: 29 / MADM Date: 09/13/24 Loc: HO.HHCX Attending Dr: Denice Rubin MD Ordering Physician: Denice Rubin MD Date of Service: 09/13/24 Procedure(s): XR chest 2V Accession Number(s): [id number] cc: Denice Rubin MD EXAMINATION: XR CHEST 2 VIEWS HISTORY: cough and wheeze globally COMPARISON: Comparison is made with the prior examination dated 04/13/2024. FINDINGS: PA and lateral views of the chest are submitted. The lungs are expanded and clear. There is no pleural effusion, pneumothorax, or pulmonary vascular congestion. The heart is normal in size. The bones are intact. XR/XR chest 2V IMPRESSION: No acute cardiopulmonary abnormality. Electronically signed by: August Clark MD 09/13/2024 02:29 PM EST RP Dictated By: August Clark MD Signed By: <Electronically signed by August Clark MD in OV> 09/13/24 1429 DD/ 1412 TD/TT: 09/13/24 1422 Order Administrator: Denice Rubin MD IMG XR PROCEDURES Final Re sult * POCT COVID-19 Ag Goldman ID NOW (09/13/2024 2:06 PM EST) [facility] Coronavirus Antigen PCR Negative Negative, Indeterminate, None Detected, Invalid, Specimen unsatisfactory for evaluation, Weakly Positive Swab 09/13/2024 2:06 PM EST Denice Rubin MD POINT OF CARE TEST ENTER/E DIT ORDERABLES Final Result * Influenza A (ID NOW Rapid Molecular) (09/13/2024 2:06 PM EST) [facility] Influenza A Negative Negative, Indeterminate [facility] Swab 09/13/2024 2:06 PM EST Denice Rubin MD POINT OF CARE TEST ENTER/E DIT ORDERABLES Final Result [facility] [address] [place] [phone] * Influenza B (ID NOW Rapid Molecular) (09/13/2024 2:06 PM EST) [facility] Influenza B Negative Negative, Indeterminate [facility] Swab 09/13/2024 2:06 PM EST Denice Rubin MD POINT OF CARE TEST ENTER/E DIT ORDERABLES Final Result [facility] [address] [place] [phone] documented in this encounter Visit Diagnoses Diagnosis Dry cough- Primary Cough Wheeze Wheezing documented in this encounter Administered Medications Inactive Administered Medications - up to 3 most recent administrations Medication Order MAR Action Action Date Dose Rate Site albuterol (2.5 MG/3ML) 0.083% nebulizer solution 2.5 mg 2.5 mg, Nebulization, Once, On Mon09/13/24 at 1445, For 1 doseIndications:Wheeze Given 09/13/2024 2:45 PM EST 2.5 mg documented in this encounter Additional Health Concerns Assessment Noted Time PHQ-9 Depression Total Score: 20 024 2:42 PM EDT documented as of this encounter Care Teams Material Handling Technician Relationship Specialty Start Date End Date Name, MD Everett [address] [place] [address] PCP - General Internal Medicine 04/19/24 Chris Pack Jr Diesel Truck TechnicianPooling Operator 09/04/24 documented as of this encounter
--- OUTSIDE RECORDS SUMMARY | 2024-09-13 15:54 | XMS_ITS | Encounter Summary ---
Author Organization [employer] Address [address] [facility] 7t [place] [address] Care Team Providers Care Drop Forger Helper Name Role Phone Amna Urrutia Primary Care Provider [phone] Name, Everett ROSE Primary Care Provider [phone] Reason for Visit * Reason Onset Date Comments Med Refill 07/15/2023 Encounter Details Date Type Department Care Team (Late st Contact Info) Description 07/15/2023 Refill [facility] [address] [place] [address] Sandra Leal MD [address] [place] [address] Social History Tobacco Use Types Packs/Day Years [...] Description 10/08/2024 10:15 AM EST Office Visit [facility] [address] [place] [address] NameEverett MD [address] [place] [address] documented as of this encounter Visit Diagnoses Not on filedocumented in this encounter Additional Health Concerns Assessment Noted Time PHQ-9 Depression Total Score: 16 023 8:52 AM EDT documented as of this encounter Care Teams Drop Forger Helper Relationship Specialty Start Date End Date Amna Urrutia FNP [address] [place] [address] PCP - General Family Medicine 01/01/23 04/18/24 NameEverett MD [address] [place] [address] PCP - General Internal Medicine 04/19/24 Chris Pack Jr Investment SpecialistShoe Salesman 09/04/24 documented as of this encounter
--- OUTSIDE RECORDS SUMMARY | 2024-09-13 15:54 | XMS_ITS | Encounter Summary ---
Author Organization [employer] Address [address] [facility] 7t [place] [address] Care Team Providers Care Rn Case Manager Name Role Phone Name, Everett ROSE Primary Care Provider [phone] Reason for Visit * Reason Onset Date Comments Medication Question 09/10/2024 Encounter Details Date Type Department Care Team (Late st Contact Info) Description 09/10/[address] [facility] [address] [place], [place] [phone] Name, MD Everett [address] [place] [address] Medication Question Social History Tobacco Use Types Packs/Day Years [...] housing situation today? I have augustabrian carranza 11/09/[address] you [...] encounter Miscellaneous Notes * Telephone Encounter - Fabiola Brasher RN - 09/10/2024 1:13 PM EST T/C to pt to advise that pcp sent Celebrex rx to [facility] pharmacy. No answer, v/m left to return call to [place] team nurses. * Telephone Encounter - Everett Angulo MD - 09/10/2024 12:29 PM EST I will send a course of Celebrex to the pharmacy * Telephone Encounter - Fabiola Brasher RN - 09/10/2024 12:05 PM EST Pt evaluated in [facility] ED 09/09/24 Dx: Testicle pain. US normal. Pt was recommended to use Tylenol/ Motrin prn and to follow up with Urology if pain continues. T/C to pt who reports that he has completed ketorolac and was wondering if pcp can rx celebrex. Pt reports that he is still in a lot of pain and is worried that he is going to lose his job. Pt c/o testicular pain radiating to his back and stomach. Reports that he is following pcp recommendations re: supportive underwear and icing on and off without improvement. Recommended that pt call Urology tosee if there are any cancellations prior to 09/26/24 appt. Recommended to return to ED prn severe worsening pain. Advised request for celebrex will be sent to pcp for review. * Telephone Encounter - Jose Alejandro Khalil - 09/10/2024 10:25 AM EST Tc from pt requesting a call back in regards to medication that was prescribed by PCP. documented in this encounter Plan of Treatment Upcoming Encounters Date Type Department Care Team (Late st Contact Info) Description 10/08/2024 10:15 AM EST Office Visit [facility] [address] [place] [address] Name, MD Everett [address] [place] [address] documented as of this encounter Visit Diagnoses Not on filedocumented in this encounter Additional Health Concerns Assessment Noted Time PHQ-9 Depression Total Score: 20 024 2:42 PM EDT documented as of this encounter Care Teams Rn Case Manager Relationship Specialty Start Date End Date Name, MD Everett [address] [place] [address] PCP - General Internal Medicine 04/19/24 Chris Pack Jr Email Production SpecialistSpiral Runner 09/04/24 documented as of this encounter
--- OUTSIDE RECORDS SUMMARY | 2024-09-13 15:54 | XMS_ITS | Encounter Summary ---
Author Organization [employer] Address [address] [facility] 7t [place] [address] Care Team Providers Care Guard Manager Name Role Phone Amna Urrutia Primary Care Provider [phone] Name, Everett ROSE Primary Care Provider [phone] Reason for Visit * Reason Onset Date Comments Med Refill 05/30/2023 Encounter Details Date Type Department Care Team (Late st Contact Info) Description 05/30/2023 Refill [facility] [address] [place] [address] Amna Urrutia FNP [address] [place] [address] Social History Tobacco Use Types Packs/Day Years [...] 10:15 AM EST Office Visit [facility] [address] [place] [address] NameEverett MD [address] [place] [address] documented as of this encounter Visit Diagnoses Not on filedocumented in this encounter Additional Health Concerns Assessment Noted Time PHQ-9 Depression Total Score: 16 023 8:52 AM EDT documented as of this encounter Care Teams Guard Manager Relationship Specialty Start Date End Date Amna Urrutia FNP [address] [place] [address] PCP - General Family Medicine 01/01/23 04/18/24 NameEverett MD [address] [place] [address] PCP - General Internal Medicine 04/19/24 Chris Pack Jr Dispatch CoordinatorChildcare Attendant 09/04/24 documented as of this encounter
--- OUTSIDE RECORDS SUMMARY | 2024-09-13 15:54 | XMS_ITS | Encounter Summary ---
Author Organization [employer] Address [address] [facility] 7t [place] [address] Care Team Providers Care Electronic Components Assembler Name Role Phone Name, Everett ROSE Primary Care Provider [phone] Reason for Visit * Reason Onset Date Comments Care Coordination 09/04/2024 [facility] Care Plan Encounter Details Date Type Department Care Team (Late st Contact Info) Description 09/04/2024 Telephone [facility] [address] [place] [address] Name, MD Everett [address] [place] [address] Care Coordination ([facility] Care Plan) Social History Tobacco Use Types Packs/Day Years [...] * Telephone Encounter - Sandra Hernandez - 09/04/2024 11:01 AM EST PCP Designee has received and reviewed Care Plan from [facility]: Senior Partner: Chris Pack Jr Contact Information: [phone] Care Plan scanned into patient's EHR and notification sent to PCP. documented in this encounter Plan of Treatment Upcoming Encounters Date Type Department Care Team (Late st Contact Info) Description 10/08/2024 10:15 AM EST Office Visit [facility] [address] [place] [address] Name, MD Everett [address] [place] [address] documented as of this encounter Visit Diagnoses Not on filedocumented in this encounter Additional Health Concerns Assessment Noted Time PHQ-9 Depression Total Score: 20 024 2:42 PM EDT documented as of this encounter Care Teams Electronic Components Assembler Relationship Specialty Start Date End Date Name, MD Everett [address] [place] [address] PCP - General Internal Medicine 04/19/24 Chris Pack Jr Ice Hockey CoachBlast Furnace Blower 09/04/24 documented as of this encounter
--- OUTSIDE RECORDS SUMMARY | 2024-09-13 15:54 | XMS_ITS | Encounter Summary ---
Author Organization [employer] Address [address] [facility] 7t [place] [address] Care Team Providers Care Online Facilitator Name Role Phone Amna Urrutia Primary Care Provider [phone] Name, Everett ROSE Primary Care Provider [phone] Reason for Visit * Reason Comments Med Refill Encounter Details Date Type Department Care Team (Late st Contact Info) Description 05/30/2023 Refill [facility] [address] [place] [address] Amna Urrutia FNP [address] [place] [address] Social History Tobacco Use Types Packs/Day Years [...] t he electric, gas, oil or water [employer] threatened to shut off services in your [...] Description 10/08/2024 10:15 AM EST Office Visit [facility] [address] [place] [address] Evreett Angulo MD [address] [place] [address] documented as of this encounter Visit Diagnoses Not on filedocumented in this encounter Additional Health Concerns Assessment Noted Time PHQ-9 Depression Total Score: 16 023 8:52 AM EDT documented as of this encounter Care Teams Online Facilitator Relationship Specialty Start Date End Date Amna Urrutia FNP [address] [place] [address] PCP - General Family Medicine 01/01/23 04/18/24 Everett Angulo MD [address] [place] [address] PCP - General Internal Medicine 04/19/24 Chris Pack Jr Pattern Data OperatorChief Compressor Station Engineer 09/04/24 documented as of this encounter
--- OUTSIDE RECORDS SUMMARY | 2024-09-13 15:54 | XMS_ITS | Encounter Summary ---
Author Organization [employer] Address 75 [facility] 7t [place] [address] Care Team Providers Care Paste Up Artist Name Role Phone Amna Urrutia Primary Care Provider [phone] Name, Everett ROSE Primary Care Provider Reason for Visit * Reason Onset Date Comments Med Refill 07/17/2023 Encounter Details Date Type Department Care Team (Late st Contact Info) Description 07/17/2023 Refill [facility] [address] [place] [address] Sandra Leal MD [address] [place] [address] Social History Tobacco Use Types Packs/Day Years [...] 10:15 AM EST Office Visit [facility] [address] [place] [address] NameEverett MD [address] [place] [address] documented as of this encounter Visit Diagnoses Not on filedocumented in this encounter Additional Health Concerns Assessment Noted Time PHQ-9 Depression Total Score: 16 023 8:52 AM EDT documented as of this encounter Care Teams Paste Up Artist Relationship Specialty Start Date End Date Amna Urrutia FNP [address] [place] [address] PCP - General Family Medicine 01/01/23 04/18/24 NameEverett MD [address] [place] [address] PCP - General Internal Medicine 04/19/24 Chris Pack Jr Sprinkling Truck DriverBattery Assembler 09/04/24 documented as of this encounter
--- OUTSIDE RECORDS SUMMARY | 2024-09-13 15:54 | XMS_ITS | Clinical Summary ---
Author Organization [facility] Address [address] [place] [address] Care Team Providers Care Food Technologist Name Role Phone Unavailable Primary Care Provider Unavailabl e Social History Tobacco Use Types Packs/Day Years Used Date Smoking Tobacco: Never Assessed Sex and Gender Information Value Date Recorded Sex Assigned at Not on file Gender Identity Not on file Sexual Orientation Not on file Plan of Treatment Health Maintenance Due Date Last Done Comments DTaP,Tdap,and Td Vaccines (1 - Tdap) 02/07/2015 Hepatitis B Vaccines (1 of 3 - 19+ 3-dose series) 02/07/2015 Depression Screening 03/13/2024 HIV Screening 03/13/2024 Hepatitis C Screening 03/13/2024 Social Influencers of Health Screening 03/13/2024 COVID-19 Vaccine ( - 2023-2 5 season) 2024 Influenza Vaccine (#1) 2024 HIB Vaccines Aged Out No longer eligi ble based on patient's age to complete this topic HPV Vaccines Aged Out No longer eligi ble based on patient's age to complete this topic Hepatitis A Vaccines Aged Out No long er eligible based on patient's age to complete this topic IPV Vaccines Aged Out No longer eligi ble based on patient's age to complete this topic MMR Vaccines Aged Out No longer eligi ble based on patient's age to complete this topic Meningococcal ACWY Vaccine Aged Out N o longer eligible based on patient's age to complete this topic Pneumococcal Vaccine: Pediat rics (0 to 5 Years) and At-Risk Patients (6 to 64 Years) Aged Out No longer eligible b ased on patient's age to complete this topic RSV Immunization Patients Un jose 20 months Aged Out No longer eligible b ased on patient's age to complete this topic Varicella Vaccines Aged Out No longer eligible based on patient's age to complete this topic
--- OUTSIDE RECORDS SUMMARY | 2024-09-13 15:54 | XMS_ITS | Encounter Summary ---
Author Organization [employer] Address [address] [facility] 7t [place] [address] Care Team Providers Care Ornamental Plaster Sticker Name Role Phone Name, Everett ROSE Primary Care Provider [phone] Reason for Visit * Reason Comments Transition Of Care (Tcm) Encounter Details Date Type Department Care Team (Late st Contact Info) Description 09/10/2024 Patient Outreach [facility] [address] [place] [address] Name, MD Everett [address] [place] [address] Transition Of Care (Tcm) Social History Tobacco Use Types Packs/Day Years [...] your housing situation today? I have augusta dillon 11/09/[address] you li [...] PM EST documented as of this encounter Progress Notes * Lois Black RN - 09/10/2024 9:04 AM EST 09/10/24 0905 Hospital Discharges and Admission for [facility] Type of Visit Emergency Department Date of Admission/Visit 09/09/24 Date of Discharge 09/09/24 Facility [facility] Diagnosis 05/30 groin pain Disposition Discharged Home documented in this encounter Plan of Treatment Upcoming Encounters Date Type Department Care Team (Late st Contact Info) Description 10/08/2024 10:15 AM EST Office Visit [facility] [address] [place] [address] Name, MD Everett [address] [place] [address] documented as of this encounter Visit Diagnoses Not on filedocumented in this encounter Additional Health Concerns Assessment Noted Time PHQ-9 Depression Total Score: 20 024 2:42 PM EDT documented as of this encounter Care Teams Ornamental Plaster Sticker Relationship Specialty Start Date End Date Name, MD Everett [address] [place] [address] PCP - General Internal Medicine 04/19/24 Chris Pack Jr Mainframe ArchitectCivil Estimator 09/04/24 documented as of this encounter
--- OUTSIDE RECORDS SUMMARY | 2024-09-13 15:54 | XMS_ITS | Encounter Summary ---
Author Organization [employer] Address [address] [facility] 7t [place] [address] Care Team Providers Care Behavioral Psychologist Name Role Phone Amna Urrutia Primary Care Provider [phone] Name, Everett ROSE Primary Care Provider [phone] Reason for Visit * Reason Onset Date Comments Med Refill 07/17/2023 Encounter Details Date Type Department Care Team (Late st Contact Info) Description 07/17/2023 Refill [facility] [address] [place] [address] Amna Urrutia FNP [address] [place] [address] Social History Tobacco Use Types Packs/Day Years [...] Description 10/08/2024 10:15 AM EST Office Visit [facility] [address] [place] [address] NameEverett MD [address] [place] [address] documented as of this encounter Visit Diagnoses Not on filedocumented in this encounter Additional Health Concerns Assessment Noted Time PHQ-9 Depression Total Score: 16 023 8:52 AM EDT documented as of this encounter Care Teams Behavioral Psychologist Relationship Specialty Start Date End Date Amna Urrutia FNP [address] [place] [address] PCP - General Family Medicine 01/01/23 04/18/24 NameEverett MD [address] [place] [address] PCP - General Internal Medicine 04/19/24 Chris Pack Jr Industrial PharmacistReshipping Clerk 09/04/24 documented as of this encounter
--- OUTSIDE RECORDS SUMMARY | 2024-09-13 15:54 | XMS_ITS | Encounter Summary ---
Author Organization [employer] Address 75 [facility] 7t [place] [address] Care Team Providers Care Police Academy Instructor Name Role Phone Amna Urrutia Primary Care Provider [phone] Name, Everett ROSE Primary Care Provider Reason for Visit * Reason Comments Med Refill Encounter Details Date Type Department Care Team (Late st Contact Info) Description 09/11/2023 Refill [facility] [address] [place] [address] Amna Urrutia FNP [address] [place] [address] Type 1 diabetes mellitus with hyperglycemia (CMS/HCC) [...] Description 10/08/2024 10:15 AM EST Office Visit [facility] [address] [place] [address] NameEverett MD [address] [place] [address] documented as of this encounter Visit Diagnoses Diagnosis Type 1 diabetes mellitus with hyperglycemia (CMS/[facility]) documented in this encounter Additional Health Concerns Assessment Noted Time PHQ-9 Depression Total Score: 16 023 8:52 AM EDT documented as of this encounter Care Teams Police Academy Instructor Relationship Specialty Start Date End Date Amna Urrutia FNP [address] [place] [address] PCP - General Family Medicine 01/01/23 04/18/24 NameEverett MD [address] [place] [address] PCP - General Internal Medicine 04/19/24 Chris Pack Jr Community Chest OfficerTherapy Manager 09/04/24 documented as of this encounter
--- OUTSIDE RECORDS SUMMARY | 2024-09-13 15:54 | XMS_ITS | Encounter Summary ---
Author Organization [employer] Address 75 [facility] 7t [place] [address] Care Team Providers Care Telegraph Installer Name Role Phone Amna Urrutia Primary Care Provider [phone] Name, Everett ROSE Primary Care Provider [phone] Reason for Visit * Reason Onset Date Comments Referral 02/28/2024 Encounter Details Date Type Department Care Team (Late st Contact Info) Description 02/28/2024 Telephone [facility] [address] [place] [address] Amna Urrutia FNP [address] [place] [address] Referral Social History Tobacco Use Types Packs/Day Years [...] encounter Miscellaneous Notes * Telephone Encounter - Nuris Dean - 02/28/2024 2:04 PM EDT Referral faxed to [facility] [address] [place] [address] [place] [address] FAX [phone] on 02/28/2024. Pending appt. Letter mailed to patient. * Telephone Encounter - Gregorio Johnson RN - 02/28/2024 11:22 AM EDT Message sent as FYI T/C to pt. For status check, pt. States he is still in pain, as per pt. His pain is at back of shoulder blade, right side of kidney and middle of stomach, As per pt. He has also diverticulitis. Pt. Feels hot but did not take temperature, no chills. Pt. Can drink but not eat. Pt. Also experiencing acid reflux. Also report diarrhea. Pt. Advised to go to ED RIGHT NOW. Pt. States he does not believe ED doctor any more, they are doing nothing. Pt. Last time went to [facility] ED, advised to go to [facility] but declined. States I am sorry but I am not going. Pt. Also offered to call 911 by RN butdeclined. Pt. Highly advised to go to nearest ED for further evaluation but keep denies. Please review and advise. * Telephone Encounter - Sandra Ng - 02/28/2024 11:12 AM EDT Tc from pt returning call * Telephone Encounter - Gregorio Johnson RN - 02/28/2024 10:49 AM EDT T/C to pt. For status check, no answer. LVM to call back on [phone]. * Telephone Encounter - Gregorio Johnson RN - 02/28/2024 10:36 AM EDT Can you please review below message for referral. Looks like notes is completed for 11/08/2023 apt.Please advise if referral can be re-send or require new referral from PCP. * Telephone Encounter - Sandra Ng - 02/28/2024 9:17 AM EDT Tc from pt requesting status on referral for gastroenterology, per document processing specialist notes, needsnotes to complete referral. Pt stated they were at ER for abdominal pain. Pt is also expected to beseen on 03/05/24 at [facility]. Please contact at [phone] documented in this encounter Plan of Treatment Upcoming Encounters Date Type Department Care Team (Late st Contact Info) Description 10/08/2024 10:15 AM EST Office Visit [facility] [address] [place] [address] Name, MD Everett [address] [place], [place] [phone] documented as of this encounter Visit Diagnoses Not on filedocumented in this encounter Additional Health Concerns Assessment Noted Time PHQ-9 Depression Total Score: 10 024 1:01 PM EDT documented as of this encounter Care Teams Telegraph Installer Relationship Specialty Start Date End Date Amna Urrutia FNP [address] [place], [place] [phone] PCP - General Family Medicine 01/01/23 04/18/24 Name, MD Everett [address] [place] [address] PCP - General Internal Medicine 04/19/24 documented as of this encounter
--- OUTSIDE RECORDS SUMMARY | 2024-09-13 15:54 | XMS_ITS | Clinical Summary ---
Author Organization [facility], Address [address] [place] [address] [place] [address] Phone Care Team Providers Care Chief Of Hospital Medicine Name Role Phone Santos Mueller MD Primary Care Provider [phone] Allergies Active Allergy Reactions Criticality Noted Date Comments Diphenhydramine 07/31/2023 Weakness, tiredness Haloperidol 07/31/2023 Jaw locks up and has tremors Medications famotidine (PEPCID) 20 MG tablet Take 20 mg by mouth in the morning and 20 mg in the evening. Active gabapentin (NEURONTIN) 300 MG capsule Take 300 mg by mouth in the morning and 300 mg in the evening and 300 mg before bedtime. Active Insulin Aspart 100 UNIT/ML solution Inject as directed Active insulin glargine (LANTUS) 100 UNIT/ML injection Inject under the skin every night Active ketorolac (TORADOL) 10 MG tablet Take 10 mg by mouth every 6 (six) hours if needed for moderate pain Active ondansetron (ZOFRAN) 4 MG tablet Take 4 mg by mouth every 8 (eight) hours if needed for nausea or vomiting Active promethazine (PHENERGAN) 25 MG tablet Take 25 mg by mouth every 6 (six) hours if needed for nausea or vomiting Active tiZANidine (ZANAFLEX) 4 MG tablet Take 4 mg by mouth every 6 (six) hours if needed for muscle spasms Active cyclobenzaprine (FLEXERIL) 10 MG tablet Take 10 mg by mouth in the morning and 10 mg at noon and 10 mg in the evening. 4 Active ondansetron ODT (ZOFRAN-ODT) 4 MG dispersible tablet DISSOLVE 1 TABLET ON TONGUE EVERY 8 HOURS NEEDED FOR NAUSEA AND VOMITING 4 Active levoFLOXacin (LEVAQUIN) 500 MG tablet Take 500 mg by mouth 1 (one) time each day 4 Active esomeprazole (NexIUM) [address] capsule TAKE 1 CAPSULE BY MOUTH EVERY DAY BEFORE BREAKFAST, DO NOT BREAK, CRUSH, DISSOLVE OR CHEW 4 Active Active Problems Problem Noted Date Diagnosed Date Type 1 diabetes mellitus 07/31/2023 023 Encounters Date Type Department Care Team Description 08/05/2024 Documentation Only [facility] [address] [place] [address] Jessica Sprague 08/05/2024 Documentation Only [facility] [address] [place] [address] Jessica Sprague 08/05/2024 Documentation Only [facility] [address] [place] [address] Jessica Sprague from Last 3 Months Social History Tobacco Use Types Packs/Day Years Used Date Smoking Tobacco: Never Assessed Sex and Gender Information Value Date Recorded Sex Assigned at Not on file Legal Sex Male 10:00 AM EST Gender Identity Not on file Sexual Orientation Not on file Plan of Treatment Health Maintenance Due Date Last Done Comments Pneumococcal Vaccine: Pediat rics (0 to 5 Years) and At-Risk Patients (6 to 64 Years) (1 of 2 - PCV) 02/07/2002 Hepatitis B Vaccine (1 of 3 - 19+ 3-dose series) 02/07 Diabetes: Ophthalmology Exam 07/28/2023 Diabetes: Pedal Pulse Checked 07/28/2023 Diabetes: Sensory Foot Exam 07/28/2023 Diabetes: Visual Foot Exam 07/28/2023 Influenza Vaccine (#1) 2024 06/08/2016 Diabetes: Hemoglobin A1C 05/28/2024 02/26/2024 Insurance MEDICAID [place] Care Teams Chief Of Hospital Medicine Relationship Specialty Start Date End Date Santos Mueller MD [address] [place] [address] PCP - General Emergency Medicine 07/28/23
--- OUTSIDE RECORDS SUMMARY | 2024-09-13 15:55 | XMS_ITS | Encounter Summary ---
Author Organization [facility] Address [address] [place] [address] Phone Care Team Providers Care Physicist Acoustics Name Role Phone Santos Mueller MD Primary Care Provider [phone] Encounter Details Date Type Department Care Team (Late st Contact Info) Description 08/05/2024 Documentation Only [facility], [address] [place] [address] Jessica Sprague [address] [place] [address] Social History Tobacco Use Types Packs/Day Years [...] on filedocumented in this encounter Care Teams Physicist Acoustics Relationship Specialty Start Date End Date Santos Mueller MD [address] [place] [address] PCP - General Emergency Medicine 07/28/23 documented as of this encounter
--- OUTSIDE RECORDS SUMMARY | 2024-09-13 15:55 | XMS_ITS | Encounter Summary ---
Author Organization [employer] [facility] Address [address] [place] [address] 7 [place] [address] Care Team Providers Care Referral Rn Name Role Phone Amna Urrutia Primary Care Provider [phone] NameEverett MD Primary Care Provider [phone] Reason for Visit * Reason Onset Date Comments Med Refill 04/28/2023 Encounter Details Date Type Department Care Team (Late st Contact Info) Description 04/28/2023 Refill [facility] [address] [place] [address] Sandra Leal MD [address] [place] [address] Social History Tobacco Use Types Packs/Day Years Used Date Smoking Tobacco: Some Days Cigarettes 0.5 10 Passive Smoke Exposure: Current Smokeless Tobacco: Never Alcohol Use Standard Drinks/Week Comments Yes 0 (1 standard drink = 0.6 oz pur e alcohol) occasional Depression Answer Date Recorded Patient Health Questionnaire-9 Score 16 04/17/2023 Depression Answer Date Recorded Patient Health Questionnaire-2 [...] Description 10/08/2024 10:15 AM EST Office Visit [facility] [address] [place] [address] Adele, MD Everett [address] [place] [address] documented as of this encounter Visit Diagnoses Not on filedocumented in this encounter Additional Health Concerns Assessment Noted Time PHQ-9 Depression Total Score: 16 023 8:52 AM EDT documented as of this encounter Care Teams Referral Rn Relationship Specialty Start Date End Date Amna Urrutia FNP [address] [place] [address] PCP - General Family Medicine 01/01/23 04/18/24 Everett Angulo MD [address] [place] [address] PCP - General Internal Medicine 04/19/24 Chris Pack Jr Long Haul Truck DriverLeveling Machine Operator 09/04/24 documented as of this encounter
--- OUTSIDE RECORDS SUMMARY | 2024-09-13 15:55 | XMS_ITS | Encounter Summary ---
Author Organization [employer] [facility] Address [address] [place] [address] 7 [place] [address] Care Team Providers Care Bench Worker Name Role Phone Amna Urrutia Primary Care Provider [phone] NameEverett MD Primary Care Provider [phone] Reason for Visit * Reason Onset Date Comments Med Refill 05/01/2023 Encounter Details Date Type Department Care Team (Late st Contact Info) Description 05/01/2023 Refill [facility] [address] [place] [address] Sandra Leal MD [address] [place] [address] Social History Tobacco Use Types Packs/Day Years [...] 10:15 AM EST Office Visit [facility] [address] [place] [address] Adele, MD Everett [address] [place] [address] documented as of this encounter Visit Diagnoses Not on filedocumented in this encounter Additional Health Concerns Assessment Noted Time PHQ-9 Depression Total Score: 16 023 8:52 AM EDT documented as of this encounter Care Teams Bench Worker Relationship Specialty Start Date End Date Amna Urrutia FNP [address] [place] [address] PCP - General Family Medicine 01/01/23 04/18/24 Everett Angulo MD [address] [place] [address] PCP - General Internal Medicine 04/19/24 Chris Pack Jr Talent Acquisition Project ManagerSemi Truck Driver 09/04/24 documented as of this encounter
--- OUTSIDE RECORDS SUMMARY | 2024-09-13 15:55 | XMS_ITS | Encounter Summary ---
Author Organization [employer] Address 75 [facility] 7t [place] [address] Care Team Providers Care Slip Feeder Name Role Phone Amna Urrutia Primary Care Provider [phone] Name, Everett ROSE Primary Care Provider [phone] Reason for Visit * Reason Onset Date Comments ER Follow-up 05/04/2023 Encounter Details Date Type Department Care Team (Late st Contact Info) Description 05/04/2023 Telephone [facility] [address] [place] [address] Amna Urrutia FNP [address] [place] [address] ER Follow-up Social History Tobacco Use Types Packs/Day Years [...] Telephone Encounter - Fabiola Brasher RN - 05/05/2023 3:32 PM EDT [facility] notes sent to medical records. * Telephone Encounter - April Meneses RN - 05/04/2023 4:19 PM EDT called pt to triage, spoke to pt. pt states had an appt today but no showed. pt states seen in the ER at [facility] today for neck, shoulder and upper back pain that is ongoing for a while. pt was told mostlikely was caused by stress and to find a way to alleviate the stress. pt has seen his PCP about this issue and she will not prescribe a narcotic. advised that narcotics are potentially dangerous and are avoided except under specific circumstances. pt states everyone i know takes them advised would need to see his PCP or another provider and pt states i want to speak to my PCP now advised notpossible and would need to schedule follow up appt to talk about pain management concerns. pt states will just have to file a lawsuit then. pt states is currently in the [facility] and will go upstairs to speak to his PCP. advised even if he goes upstairs he may not be able to see or speak to his PCP. pthung up at this point. Protocol Used: Back Pain (Adult) Protocol-Based Disposition: See in Office or Video Visit within 2 Weeks Video visit offer not recorded Positive Triage Question: * Back pain is a chronic symptom (recurrent or ongoing AND lasting > 4 weeks) * All higher-acuity triage questions were negative Care Advice Discussed: * Reassurance and Education - Back Pain * Cold or Heat * Sleep * Activity * Pain Medicines * Reasons To Call Back - Pain becomes worse - You become worse * Telephone Encounter - Hugodacia Hernandez - 05/04/2023 3:37 PM EDT Patient calling to report ED visit on 05/04/23 at [facility]. Reports to be seen for muscle spasm , states has heat flashes and pain still. Patient advised will forward to team nurse for follow up. Please contact at [phone] documented in this encounter Plan of Treatment Upcoming Encounters Date Type Department Care Team (Late st Contact Info) Description 10/08/2024 10:15 AM EST Office Visit [facility] [address] [place] [address] NameEverett MD [address] [place] [address] documented as of this encounter Visit Diagnoses Not on filedocumented in this encounter Additional Health Concerns Assessment Noted Time PHQ-9 Depression Total Score: 16 023 8:52 AM EDT documented as of this encounter Care Teams Slip Feeder Relationship Specialty Start Date End Date Amna Urrutia FNP [address] [place] [address] PCP - General Family Medicine 01/01/23 04/18/24 NameEverett MD [address] [place] [address] PCP - General Internal Medicine 04/19/24 Chris Pack Jr Livestock HandlerAssistant Community Manager 09/04/24 documented as of this encounter
--- OUTSIDE RECORDS SUMMARY | 2024-09-13 15:55 | XMS_ITS | Encounter Summary ---
Author Organization [facility] Address [address] [place] [address] Phone Care Team Providers Care Packer Insulation Name Role Phone Santos Mueller MD Primary Care Provider [phone] Encounter Details Date Type Department Care Team (Late st Contact Info) Description 08/05/2024 Documentation Only [facility] [place], [address] [place] [address] Jessica Sprague [address] [place] [address] Social History Tobacco Use Types [...] on filedocumented in this encounter Care Teams Packer Insulation Relationship Specialty Start Date End Date Santos Mueller MD [address] [place] [address] PCP - General Emergency Medicine 07/28/23 documented as of this encounter
--- OUTSIDE RECORDS SUMMARY | 2024-09-13 15:55 | XMS_ITS | Encounter Summary ---
Author Organization [employer] [facility] Address [address] [place] [address] 7 [place] [address] Care Team Providers Care Pipeline Executive Name Role Phone Amna Urrutia Primary Care Provider [phone] NameEverett MD Primary Care Provider [phone] Reason for Visit * Reason Onset Date Comments Med Refill 04/29/2023 Encounter Details Date Type Department Care Team (Late st Contact Info) Description 04/29/2023 Refill [facility] [address] [place] [address] Sandra Leal MD [address] [place] [address] Social History Tobacco Use Types Packs/Day Years [...] 10:15 AM EST Office Visit [facility] [address] [place] [address] Adele, MD Everett [address] [place] [address] documented as of this encounter Visit Diagnoses Not on filedocumented in this encounter Additional Health Concerns Assessment Noted Time PHQ-9 Depression Total Score: 16 023 8:52 AM EDT documented as of this encounter Care Teams Pipeline Executive Relationship Specialty Start Date End Date Amna Urrutia FNP [address] [place] [address] PCP - General Family Medicine 01/01/23 04/18/24 Everett Angulo MD [address] [place] [address] PCP - General Internal Medicine 04/19/24 Chris Pack Jr Adult Daycare CoordinatorFlight Superintendent 09/04/24 documented as of this encounter
--- OUTSIDE RECORDS SUMMARY | 2024-09-13 15:55 | XMS_ITS | Encounter Summary ---
Author Organization [employer] Address 75 [facility] 7t [place] [address] Care Team Providers Care Professional Driver Name Role Phone Amna Urrutia Primary Care Provider [phone] NameEverett MD Primary Care Provider [phone] Reason for Visit * Reason Onset Date Comments Med Refill 05/01/2023 Encounter Details Date Type Department Care Team (Late Contact Info) Description 05/01/2023 Refill [facility] [address] [place] [address] Lakshmi Womack FNP [address] [place] [address] Type 1 diabetes mellitus with hyperglycemia ([facility]) Social History Tobacco Use Types Packs/Day [...] Description 10/08/2024 10:15 AM EST Office Visit [facility] [address] [place] [address] Name, MD Everett [address] [place] [address] documented as of this encounter Visit Diagnoses Diagnosis Type 1 diabetes mellitus with hyperglycemia (CMS/HCC) documented in this encounter Additional Health Concerns Assessment Noted Time PHQ-9 Depression Total Score: 16 023 8:52 AM EDT documented as of this encounter Care Teams Professional Driver Relationship Specialty Start Date End Date Amna Urrutia FNP [address] [place] [address] PCP - General Family Medicine 01/01/23 04/18/24 Name, MD Everett [address] [place] [address] PCP - General Internal Medicine 04/19/24 Chris Pack Jr Assembler ArrangerMagnetic Tape Typewriter Operator 09/04/24 documented as of this encounter
--- OUTSIDE RECORDS SUMMARY | 2024-09-13 15:55 | XMS_ITS | Encounter Summary ---
Author Organization [facility] Address [address] [facility] [address] [place] [address] Care Team Providers Care Sample Patternmaker Name Role Phone Amna Urrutia Primary Care Provider [phone] Name, Everett ROSE Primary Care Provider [phone] Encounter Details Date Type Department Care Team (Late st Contact Info) Description 01/17/2023 Orders Only [facility] MED[facility] [address] [place] [address] [phone] Amna Urrutia FNP [address] [place] [address] [phone] Social History Tobacco Use Types Packs/Day Years Used Date Smoking Tobacco: Every Day Cigarettes 0.5 10 Smokeless Tobacco: Never Alcohol Use Standard Drinks/Week Comments Yes 0 (1 standard drink = 0.6 oz pur e alcohol) occasional PHQ-2 Answer Date Recorded Patient Health Questionnaire-2 Score 2 01/06/2023 Sex and Gender Information Value Date Recorded [...] suspected to have Coronavirus/COVID-19? No / Unsure 01/19/2023 8:39 AM EDT documented as of this encounter Plan of Treatment Upcoming Encounters Date Type Department Care Team (Late st Contact Info) Description 10/08/2024 10:15 AM EST Office Visit [facility] MED[facility]INE [address] [place] [phone] Name, MD Everett [address] [place] [address] [phone] documented as of this encounter Visit Diagnoses Not on filedocumented in this encounter Additional Health Concerns Assessment Noted Time PHQ-9 Depression Total Score: 7 01/07/20 23 9:10 AM EDT documented as of this encounter Care Teams Sample Patternmaker Relationship Specialty Start Date End Date Amna Urrutia FNP [address] [place], [place] [phone] PCP - General Family Medicine 01/01/23 04/18/24 Name, MD Everett [address] [place], [place] [phone] PCP - General Internal Medicine 04/19/24 Chris Pack Jr Targeting Acquisition OfficerAdmissions Coordinator 09/04/24 documented as of this encounter
--- OUTSIDE RECORDS SUMMARY | 2024-09-13 15:55 | XMS_ITS | Encounter Summary ---
Author Organization [employer] Address [address] [facility] [address] [place] [address] Care Team Providers Care Jewelry Sales Associate Name Role Phone Amna Urrutia Primary Care Provider [phone] NameEverett MD Primary Care Provider [phone] Reason for Visit * Reason Onset Date Comments Med Refill 05/03/2023 Encounter Details Date Type Department Care Team (Late st Contact Info) Description 05/03/[address] [facility] [address] [place] [phone] Amna Urrutia FNP [address] [place] [address] Type 1 diabetes mellitus with hyperglycemia ([facility]) Social History Tobacco Use Types Packs/Day Years [...] [facility] [address] [place] [phone] Name, MD Everett [address] [place] [address] documented as of this encounter Visit Diagnoses Diagnosis Type 1 diabetes mellitus with hyperglycemia (CMS/HCC) documented in this encounter Additional Health Concerns Assessment Noted Time PHQ-9 Depression Total Score: 16 023 8:52 AM EDT documented as of this encounter Care Teams Jewelry Sales Associate Relationship Specialty Start Date End Date Amna Urrutia FNP [address] [place] [phone] PCP - General Family Medicine 01/01/23 04/18/24 Name, MD Everett [address] [place], [place] [phone] PCP - General Internal Medicine 04/19/24 Chris Pack Jr Heavy Equipment Service TechnicianHeat Treat Supervisor 09/04/24 documented as of this encounter
--- OUTSIDE RECORDS SUMMARY | 2024-09-13 15:55 | XMS_ITS | Clinical Summary ---
Author Organization [employer] Address [address] [facility] [address] [place] [address] Care Team Providers Care Tree Trimming Supervisor Name Role Phone Name, Everett ROSE Primary Care Provider [phone] Allergies Active Allergy Reactions Criticality Noted Date Comments Diphenhydramine Other 10/18/2022 Weakness, tiredness Haloperidol Shortness of breath High 10/18/2022 Jaw locks up and has tremors Metoclopramide 08/02/2024 Medications * This document contains information received from the source organization and may not represent a complete record from that organization. Continuous Blood Gluc Plastics Repairer (FreeStyle Shiraz 2 [place]) deviceIndication s:Type 1 diabetes mellitus with hyperglycemia (CMS/HCC) Use with sensor to monitor blood glucose levels 1 each 023 Active Acetaminophen Extra Strength 500 MG tablet Active Blood Glucose Monitoring Suppl (FreeStyle Dalton Lite) w/Device kit Active glucose blood (FREESTYLE LITE) test strip Use bid. Dx diabetes 60 each Active FREESTYLE LITE test strip Check sugar 3 times daily and prn 100 each 3 Active FreeStyle lancets 1 each by Other route 3 times daily. Use bid, dx type 2 diabetes 60 each Active glucose 4 g chewable tablet CHEW 4 TABLETS IF NEEDED FOR LOW BLOOD SUGAR 50 tablet 2 Active insulin pen needle (BD Pen Needle Roxanna U/F) 32G x 4 mm miscIndications: Type 1 diabetes mellitus with hyperglycemia (CMS/HCC) USE WITH INSULIN as INSTRUCTED 100 each 3 024 Active esomeprazole (NexIUM) [address] capsuleIndicatio ns:Gastroesophag eal reflux disease without esophagitis Take 2 capsules (40 mg) by mouth before breakfast. Do not open capsule. 60 capsule 1 Active Continuous Glucose Sensor (FreeStyle Shiraz 2 Sensor) miscIndications: Type 1 diabetes mellitus with hyperglycemia (CMS/HCC) Use to monitor blood sugar level - change sensor every 14 days or per package directions. 2 each 3 Active promethazine (Phenergan) 25 MG tabletIndication s:Type 1 diabetes mellitus with hyperglycemia (CMS/HCC) TAKE 1 TABLET BY MOUTH THREE TIMES DAILY NEEDED FOR NAUSEA AND VOMITING 15 tablet 1 Active Baqsimi Two Pack 3 MG/DOSE nasal powder USE 1 SPRAY (3MG) IN ONE NOSTRIL FOR A PATIENT WITH SEVERE HYPOGLYCEMIA WHO IS NOT RESPONSIVE AND UNABLE SELF-TREAT WITH GLUCOSE. AFTERWARDS TURN ON SIDE. MAY REPEAT IN 15MINUTES IF PATIENT DOES NOT RESPOND. Active Tresiba FlexTouch 200 UNIT/ML injection INJECT 20 UNITS SUBCUTANEOUSLY ONCE DAILY Active levoFLOXacin (Levaquin) 500 MG tablet Take 1 tablet by mouth Once per day. Active famotidine (Pepcid) 20 MG tabletIndication s:Gastroesophage al reflux disease without esophagitis TAKE 1 TABLET BY MOUTH DAILY AT BEDTIME 30 tablet 2 Active celecoxib (CeleBREX) 200 MG capsule Take 1 capsule (200 mg) by mouth 2 times daily for 20 days. 40 capsule 025 2024 Active insulin aspart FlexPen (NovoLOG) 100 UNIT/ML pen INJECT UP TO 10 UNITS SUBCUTANEOUSLY THREE TIMES DAILY WITH MEALS. USE 1 UNIT FOR EVERY 35 UNITS above 135 15 mL 1 Active albuterol 108 (90 Base) MCG/ACT inhaler Inhale 2 puffs every 6 (six) hours if needed for wheezing. 18 g 025 2025 Active albuterol 108 (90 Base) MCG/ACT inhaler Inhale 2 puffs every 6 (six) hours if needed for wheezing. 18 g 024 2024 Discontinued(R eorder (will not trigger notification to Pharmacy)) insulin aspart FlexPen (NovoLOG) 100 UNIT/ML pen INJECT UP TO 10 UNITS SUBCUTANEOUSLY THREE TIMES DAILY WITH MEALS, USE 1 unit OF INSULIN FOR EVERY 35 UNITS above 135 15 mL 1 024 2024 Discontinued celecoxib (CeleBREX) 200 MG capsule Take 1 capsule (200 mg) by mouth 2 times daily for 20 days. 40 capsule 024 2024 ketorolac (Toradol) 10 MG tablet Take 1 tablet by mouth every 8 (eight) hours if needed. 2024 Discontinued(T herapy completed) Hospital, Clinic, or Other Facility Administered Medication Ordered Dose Route Frequency Start Date End Date Status albuterol (2.5 MG/3ML) 0.083% nebulizer solution 2.5 mgIndications:Wheeze 2.5 mg NEBULIZATION Once 09/13/2024 09/13/2024 En ded Active Problems Patient Care Coordination No te Formatting of this note migh t be different from the original. [facility] called the patient back. Patient asked to be called at a later time as patient was at work. Problem Noted Date Diagnosed Date Dry cough 09/13/2024 Assessment & Plan (09/13/2024 2:38 PM EST): Cough 3-4 days with thick sputum that pt describes as maroon colored. COVID, Flu and Strep negative. -CXR ordered today showed no acute cardiopulmonary abnormality. -ordered viral respiratory panel. Wheeze 09/13/2024 Assessment & Plan (09/13/2024 2:30 PM EST): Faint wheezing on exam. Unknown hx of asthma. Was treated with albuterol in 04/2024. -given DUONeb in clinic with significant relief. -prescribed albuterol 108 (90 Base) MCG/ACT inhaler for PRN use. Acute midline low back pain without sciatica 08/2023 Assessment & Plan (03/21/2024 3:42 PM EDT): -lumbar spine/sacrum-coccyx XR 03/12/2024 : Sacrum/coccyx: A small density in the right pelvis is seen on only one view and could overlie the patient. Small sclerotic areas in the visualized pelvis are nonspecific. No definite aggressive features. Lumbar spine: There is likely absence of the posterior elements of the upper sacrum and possibly L5. Correlate with any previous surgery. Alternatively this may be developmental. There are 5 lumbar-type vertebrae. The alignment is within normal limits. No acute fracture. No loss of volume. -02/23/2024 cr and GFR wnl Pain appears muscular in nature , pt did not have any trauma and seems more muscular , no neurologic concerning findings on exam and denies neurologic complaints. -alarm signs and symptoms discussed -tylenol PRN -meloxicam to take 7.5 mg 1 to max 2 tab a day together if more severe pain -Lidoderm patch in back -advised to talk w ortho about lumbar XR done in ED -gave report Left wrist fracture 03/21/2024 Assessment & Plan (03/21/2024 3:42 PM EDT): -left hand/wrist XR 03/12/2024 :There is a minimally distracted transversely oriented fracture through the ulnar styloid. There is overlying soft tissue swelling. There is very slight alteration of the trabecula in the distal metaphysis of the radius and there is a tiny area of irregularity involving the cortex anteriorly and posteriorly. Saw ortho 03/19/2024 for Left distal radius transverse metapyseal fracture, minimally displaced, T-type with extension to the articular surface and Left ulnar styloid fracture. Plan is to monitor, no plan for surgery at this time ,pt wearing a short arm cast , Pt will f w ortho in 3 weeks, with X-rays 3 V L wrist in plaster- has apt to see orthopedic in 04/16/2024 From exam today has normal skin temp in left fingers and with normal movement and sensory , no findings concerning for Compartment syndrome and states improving discomfort since yesterday -continue care w orthopedic -apt schedule for 04/16/2024 -alarm signs and symptoms discussed w pt -tylenol prn and continue cast use Gates's esophagus with dysplasia 01/09/2024 Assessment & Plan (04/14/2023 6:18 PM EDT): Pt w hx of Gates's 'esophagus from chart -referred already to GI at last visit -MA gave today to pt info for pt to call to schedule apt -advised pt to take px PPis for now in fasting until f w GI Tobacco dependence 06/27/2023 Traumatic rhabdomyolysis 06/27/2023 Homicidal ideation 06/01/2023 Assessment & Plan (06/05/2023 11:20 AM EDT): Assessment: ?? Patient who [facility] experiencing homicidal ideation towards a specific person. He denied SI. Reason for visit was to assess symptoms and provide support. Patient may benefit from an inpatient psychiatric hospitalization to stabilize symptoms. ?? At this time Bradford Torres meets criteria for Visit Diagnoses: Problem List Items Addressed This Visit ? Other ?? Major depressive disorder, recurrent episode with anxious distress (CMS/HCC) ?? Homicidal ideation ?? Patient ready to address current needs Yes ?? Strengths include ability to come into clinic to receive support and care ?? PLAN: 1. Follow up with [facility]: Recommended for follow-up: TBD 2. Patient goal is stabilization of symptoms. 3. Behavioral Recommendations a. Patient was sectioned and taken to [facility] via ambulance Head injury 05/31/2023 Overview (05/31/2023): Hit with wood/foam prop at work 05/29/23. No LOC. Seen in ER exam and CT unremarkable. No residual symptoms. -Ok to return to work, note given 05/31/2023 Assessment & Plan (05/31/2023 12:00 PM EDT): Hit with wood/foam prop at work 05/29/23. No LOC. Seen in ER exam and CT unremarkable. No residual symptoms. -Ok to return to work, note given 05/31/2023 Major depressive disorder, r ecurrent episode with anxious distress 04/14/2023 Assessment & Plan (04/17/2023 9:12 AM EDT): Assessment: Patient with anhedonia, hopelessness, sleep disturbance, fatigue, poor appetite and over eating at times, low self-esteem, diminished ability to concentrate, restlessness, anxiousness, persistent worry, irritability and tension. Factors contributing to his symptoms as as follow, Hx of trauma, Hx of SI attempt and stress at work. Patient will benefit from Ind. Therapy and Medication Management, but he declined Med. Management at this time. At this time Bradford Torres meets criteria for Visit Diagnoses: Problem List Items Addressed This Visit Other Major depressive disorder, recurrent episode with anxious distress (CMS/HCC) Patient ready to address current needs Yes Strengths include willing to engage in MH services. PLAN: 1. Follow up with [facility]: Not recommended for follow-up 2. Patient goal is to improve mental health and functioning. 3. Behavioral Recommendations a. Ind. Therapy, referral will be submitted. b. Use of coping skills as recommended. c. [facility] contact number for extra support as needed. Assessment & Plan (04/14/2023 6:30 PM EDT): Reports chronic depression ,denies SI -I request today to call pt to start care given pt did not wanted to have apt in office today - called in afternoon and referred for outpt tx -pt to f w PCP DKA (diabetic ketoacidosis) 04/14/2023 Assessment & Plan (04/14/2023 6:37 PM EDT): Pt with elevated CBgs here reported as high ,urinedipstick done today is + for ketones 160 and blood + ,neg LE and nitrates Pt with DKA w hyperglycemia and + ketones in urine and having ongoing nausea and unclear pain in ribs and thoracic back VS are normal Reviewed labs done at ER yesterday most relevant for elevated lactic acid but w resolution after IV hydration He does not look dehydrated here today Today hb 1AC 10.6<---11.3 -I discussed in length with pt today and explained the importance to go to ER for DKA management -explained to pt that he needs IV hydration, IV insulin and further eval of cause of etiology of DKA and pain -I offered to call ambulance for pt and to call ER to inform about pt . But pt refuse to go to ER. He express understanding of risk of not going to ED including risk of . -Given pt refused to go to ER -I gave in office 10 u of lispro and rechecked CBG 45 min after -CBgs was 436 from high -discussed w pt about to be complaint w lantus 20 u HS- I am not sure if he actually needs higher basal insulin with having also some episodes of hypoglycemia last few weeks ago at night -advised to keep using rapid insulin but to use 2 units extra w breakfast and lunch of instead 1 u extra above every 35 mg over 135 but to keep same plan as before for dinner to avoid pm hypoglycemia -advised hydration -advised pt to check CBGs before every meal --I checked today w pharmacy and Continuous blood glucose monitoring was already approved -pt to start using from today -I called pt around 18h30 and pt reports feeling better and his CBGs are in 300s ---advised to go to ER if not improving or feeling sick again -pt express understanding -Pt already was referred to endocrinology back in 12/2022 by PCP but never received a call to schedule apt ---I discussed today w credit support specialist and request to try to schedule apt KARI w specialist -pt may need insulin pump -prescribed phenergan to help w nausea and hydration-states not using zofran because not helpful -sent UA w reflex cx to lab but no concerning symptoms for UTI -alarm signs and symptoms discussed in length w pt -Given no availability to see PCP in her schedule I will see pt in 2 weeks to f up and request t put pt in PCP recall list for no more than 4 weeks -will need close f up until can start care w room designer Type 1 diabetes mellitus without complication Assessment & Plan (03/21/2024 3:41 PM EDT): Has apt w Tool Die Maker next week to start care Assessment & Plan (04/14/2023 6:42 PM EDT): Assessment & Plan (01/01/2023 4:11 PM EDT): ?? Reports diagnosed at 18 y/o ?? Currently using basal-bolus insulin regimen: ?? Basal: 20 units lantus nightly ?? Bolus: carb ratio 15:1 (Novolog) Lab Results Component Value Date HGBA1C 11.0 (A) 12/30/2022 ?? UA negative for ketones ?? Reports he has sufficient insulin at this time ?? Reviewed importance of BG monitoring and blood glucose control. ED precautions. ?? DME request for CGM ?? Referral to Endo placed Gastroparesis Assessment & Plan (01/01/2023 4:06 PM EDT): ?? Reports diagnosed approx 2018 in [place] ?? Referral to establish with GI provider placed ?? Reports started on gabapentin 300mg BID by previous PCP and does provide some relief of symptoms. ?? Renewal of promethazine 25mg sent PRN. Reviewed med use and safety Resolved Problems Problem Noted Date Diagnosed Date Resolved Date Thoracic back pain 04/14/2023 4 Assessment & Plan (04/14/2023 6:45 PM EDT): -XR lumbosacral spine 03/16/2023 : unremarkable -XR thoracic spine 03/16/2023: unremarkable -CXR 04/13/2023: Unremarkable ----- -Thoracic spine and ribs series TODAY:: Vertebral bodies and intervertebral discs are maintained in height. Pedicles and visualized ribs are intact. No focal paravertebral soft tissue swelling. Heart and mediastinum within normallimits. Mild biapical pleural thickening otherwise clear lungs. Right RIBS: No fracture or suspicious lesions. Left RIBS: No fracture or suspicious lesions. -no clear etiology of pain w no fx in vertebra nor ribs but possible associated w DKA ,also had yesterday CXR reported as normal , had low D dimer at ER yesterday and otherwise here normal VS and exam consistent w pain over ribs and paraspinal points in thoracic back -advised tylenol prn , lidoderm patch -alarm signs and symptoms Encounters * This document contains information received from the source organization and may not represent a complete record from that organization. Date Type Department Care Team Description 09/13/2024 2:00 PM EST Office Visit [facility] [address] [place] [phone] Denice Rubin MD Dry cough (Primary Dx); Wheeze 09/12/2024 Telephone [facility] [address] [place] [address] [phone] NameEverett MD Nurse Triage 09/12/2024 Refill [facility] [address] [place] [address] [phone] NameEverett MD 09/10/2024 Telephone [facility] [address] [place] [address] [phone] NameEverett MD Medication Question 09/10/2024 Patient Outreach [address] [address] Everett Angulo MD Transition Of Care (Tcm) 09/09/2024 Orders Only GENERIC EXTERNAL DATA DEPARTMENT Provider, Generic External Data 09/04/[address] [address] Everett Angulo MD Care Coordination (CP Care Plan) 09/01/2024 Orders Only GENERIC EXTERNAL DATA DEPARTMENT Provider, Generic External Data 08/07/[address] Orders [address] [facility] External Provider, [facility] 08/05/2024 Refill [facility] [address] [place] [phone] Lindsey Cuellar NP Gastroesophageal reflux disease without esophagitis 08/05/2024 Orders Only GENERIC EXTERNAL DATA DEPARTMENT Provider, Generic External Data 08/02/2024 2:00 PM EST Office Visit [address] [address] Everett Angulo MD Epididymo-orchitis, acute (Primary Dx); Type 1 diabetes mellitus with hyperglycemia (CMS/HCC); Major depressive disorder, recurrent episode with anxious distress (CMS/HCC) 08/02/2024 Travel 08/02/[address] [address] Fabiola Brasher RN 08/01/2024 Orders Only GENERIC EXTERNAL DATA DEPARTMENT Provider, Generic External Data 07/31/2024 9:20 AM EST Office Visit [facility] [address] [address] Lindsey Cuellar NP Upper abdominal pain (Primary Dx); Elevated glucose; Epigastric pain; Pain in both testicles 07/31/2024 Orders Only GENERIC EXTERNAL DATA DEPARTMENT Provider, Generic External Data 07/31/2024 Refill [facility] [address] [place], [place] [phone] Everett Angulo MD Type 1 diabetes mellitus with hyperglycemia (CMS/HCC) 07/26/2024 Telephone [facility] [address] [place] [phone] Breanna Ireland, RUSTY Results (Xray result: normal) 07/17/2024 Travel 07/16/2024 Telephone [facility] [address] [place] [phone] Everett Angulo MD Nurse Triage 07/15/2024 10:45 AM EST Office Visit [facility] [address] [place] [address] Natasha Del Toro, OD Myopia of both eyes (Primary Dx) 07/01/2024 11:00 AM EST Office Visit [facility] [address] [address] Santos Mueller MD Nausea and vomiting, unspecified vomiting type (Primary Dx); Epigastric abdominal pain; Chest pain, unspecified type; Type 1 diabetes mellitus without complication (CMS/HCC) 07/01/2024 Orders Only GENERIC EXTERNAL DATA DEPARTMENT Provider, Generic External Data 07/01/2024 [facility] [address] [address] Santos Mueller MD 06/26/[address] [address] Amna Urrutia FNP 06/21/[address] [address] Savanna Juares, RUSTY 06/19/2024 Refill [facility] [address] [place], [place] [phone] Everett Angulo MD Type 1 diabetes mellitus with hyperglycemia (CMS/HCC) 06/19/[address] [address] Everett Angulo MD Prior Authorization 06/13/2024 3:40 PM EDT Office Visit [facility] [address] [address] Lindsey Cuellar NP Gastroesophageal reflux disease without esophagitis (Primary Dx); Type 1 diabetes mellitus with hyperglycemia (CMS/HCC) from Last 3 Months Immunizations Name Administration Dates Next Due Influenza, seasonal, injectable, preservative fr ee 06/08/2016 Td (adult), 5 Lf tetanus tox oid, preservative free, adsorbed 02/23/2015 Tdap 11/08/2023 Family History Medical History Relation Name Comments Cancer Father's Sister Diabetes type I Paternal Grandmother Relation Name Status Comments Father's Sister Paternal Grandmother Social History Tobacco Use Types Packs/Day Years [...] is your housing situation today? I have auugsta carranza 11/09/[address] you [...] not to disclose 2022 3:33 PM EST Last Filed Vital Signs Vital Sign Reading [...] Mass Index 19.2 09/13/2024 1:49 PM EST Plan of Treatment Upcoming Encounters Date Type Department Care Team (Late st Contact Info) Description 10/08/2024 10:15 AM EST Office Visit [facility] [address], [place] [phone] Name, MD Everett [address] [place] [address] Health Maintenance Due Date Last Done Comments Dental Oral Exam 1996 Dental Prophylaxis 1996 Dental X-Ray: Full Mouth 1996 Pneumococcal Vaccine: Pediatrics (0 to 5 Years) and At-Risk Patients (6 to 64 Years) (1 of 2 - PCV) 02/07/2002 Diabetes: Foot Exam 02/07/2006 Alcohol/Substance Use Screening 2008 Family Planning (PISQ) 02/07/2011 Diabetes: Urine Protein Screening 02/07/2015 Hepatitis A Vaccines (1 of 2 - Risk 2-dose series) 02/07/2015 Hepatitis B Vaccines (1 of 3 - 19+ 3-dose series) 02/07/2015 Dental X-Ray: Bitewings 10/19/2023 10/18/2022 COVID-19 Vaccine ( - season) 2024 Influenza Vaccine (#1) 2024 06/08/2016 Diabetes: Hemoglobin A1C 05/28/2024 024, 11/08/2023, 04/14/2023, Additional history exists Depression Monitoring (PHQ-9) 09/05/2024 03/05/2024, 03/05/2024 SDOH Screening 11/08/2024 11/09/2023 Lipid Panel 11/14/2024 11/15/2023 Depression Screening 03/05/2025 03/05/2024, 03/05/20 Eye Exam 05/21/2025 05/21/2024, 1008/2023, 05/21/2024, Additional history exists Tobacco Screening 09/13/2025 09/13/2024 DTaP/Tdap/Td Vaccines (2 - Td or Tdap) 11/07/2033 11/08/2023, 02/23/2015 Zoster Vaccines (1 of 2) 02/07/2046 RSV Patients and Patients Aged 60 years or older (1 - 1-dose 75+ series) 02/07/2071 HIV Screening Completed 01/06/2023 Hepatitis C Screening Completed 11/15/2023 HIB Vaccines Aged Out No longer eligi ble based on patient's age to complete this topic HPV Vaccines Aged Out No longer eligi ble based on patient's age to complete this topic IPV Vaccines Aged Out No longer eligi ble based on patient's age to complete this topic Meningococcal Vaccine Aged Out No reina coni eligible based on patient's age to complete this topic RSV under 20 months Aged Out No longe r eligible based on patient's age to complete this topic Rotavirus Vaccines Aged Out No longer eligible based on patient's age to complete this topic Procedures Procedure Name Priority Date/Time Associated Diagnosis Comments XR CHEST 2 VIEWS Routine 09/13/2024 2:12 PM EST Dry cough Wheeze POCT COVID-19 AG GOLDMAN ID NOW Routine 09/13/2024 2:06 PM EST Dry cough Wheeze POCT INFLUENZA A (ID NOW RAPID MOLECULAR) Routine 09/13/2024 2:06 PM EST Dry cough Wheeze POCT INFLUENZA B (ID NOW RAPID MOLECULAR) Routine 09/13/2024 2:06 PM EST Dry cough Wheeze US SCROTUM DOPPLER Routine 09/09/2024 10 :19 PM EST US SCROTUM Routine 09/09/2024 10:19 PM EST LACTIC ACID Routine 09/09/2024 8:47 PM EST COMPREHENSIVE METABOLIC PANEL Routine 09/09/2024 8:17 PM EST CBC WITH AUTO DIFFERENTIAL Routine 09/09/2024 8:17 PM EST US SCROTUM Routine 09/09/2024 7:23 PM EST US SCROTUM DOPPLER Routine 09/09/2024 7: 23 PM EST URINALYSIS WITH REFLEX MICROSCOPIC Routine 09/09/2024 6:42 PM EST GLUCOSE, WHOLE BLOOD Routine 09/01/2024 6:08 PM EST GLUCOSE, WHOLE BLOOD Routine 09/01/2024 12:[address] ABDOMEN PELVIS W CONTRAST Routine 09/01/2024 10:50 AM EST C-REACTIVE PROTEIN Routine 09/01/2024 9: 30 AM EST BETA-HYDROXYBUTYRATE Routine 09/01/2024 9:30 AM EST COMPREHENSIVE METABOLIC PANEL Routine 09/01/2024 9:30 AM EST CBC WITH AUTO DIFFERENTIAL Routine 09/01/2024 9:30 AM EST XR KNEE 1-2 VIEWS LEFT Routine 08/07/2024 5:27 AM EST GLUCOSE, WHOLE BLOOD Routine 08/05/2024 4:12 AM EST GLUCOSE, WHOLE BLOOD Routine 08/05/2024 3:02 AM EST URINALYSIS, COMPLETE, WITH REFLEX TO CULTURE Routine 08/05/2024 2:20 AM EST LIPASE Routine 08/05/2024 2:10 AM EST BASIC METABOLIC PANEL Routine 08/05/2024 2:10 AM EST HOLD RED TOP Routine 08/05/2024 2:10 AM EST CBC WITH AUTO DIFFERENTIAL Routine 08/05/2024 2:10 AM EST GLUCOSE, WHOLE BLOOD Routine 08/05/2024 1:59 AM EST US SCROTUM DOPPLER Routine 08/02/2024 12 :01 AM EST US SCROTUM Routine 08/01/2024 11:59 PM EST BASIC METABOLIC PANEL Routine 08/01/2024 11:23 PM EST HEPATIC FUNCTION PANEL Routine 08/01/2024 11:23 PM EST CBC WITH AUTO DIFFERENTIAL Routine 08/01/2024 11:23 PM EST URINALYSIS, COMPLETE, WITH REFLEX TO CULTURE Routine 07/31/2024 3:08 PM EST CHLAMYDIA/N. GONORRHOEAE RNA, TMA, UROGENITAL Routine 07/31/2024 3:08 PM EST VENOUS BLOOD GAS Routine 07/31/2024 1:17 PM EST US SCROTUM DOPPLER Routine 07/31/2024 12 :14 PM EST US SCROTUM Routine 07/31/2024 12:14 PM EST BETA-HYDROXYBUTYRATE Routine 07/31/2024 11:23 AM EST LIPASE Routine 07/31/2024 11:23 AM EST BASIC METABOLIC PANEL Routine 07/31/2024 11:23 AM EST HEPATIC FUNCTION PANEL Routine 07/31/2024 11:23 AM EST POCT GLUCOSE Routine 07/31/2024 10:20 AM EST Elevated glucose CT CERVICAL SPINE WO CONTRAST Routine 07/16/2024 11:[address] HEAD WO CONTRAST Routine 07/16/2024 1 1:[address] SINUS FACIAL BONES WO CONTRAST Routine 07/16/2024 11:01 AM EST LIPASE Routine 07/01/2024 12:49 PM EST MAGNESIUM Routine 07/01/2024 12:49 PM EST COMPREHENSIVE METABOLIC PANEL Routine 07/01/2024 12:49 PM EST CBC WITH AUTO DIFFERENTIAL Routine 07/01/2024 12:49 PM EST SARS COV2/INFLUENZA A/B AND RSV RNA QL NAAT Routine 07/01/2024 12:49 PM EST ECG 12-LEAD Routine 07/01/2024 11:52 AM EST Chest pain, unspecified type POCT GLYCATED HEMOGLOBIN, TOTAL Routine 02/26/2024 3:39 PM EDT Type 1 diabetes mellitus with hyperglycemia (CMS/HCC) HEPATITIS C AB W/REFL TO HCV RNA, QN, PCR Routine 11/15/2023 1:28 PM EDT Routine adult health maintenance LIPID PANEL, STANDARD Routine 11/15/2023 1:28 PM EDT Type 1 diabetes mellitus with hyperglycemia (CMS/HCC) HIV 1 RNA, QN PCR W/RFL NICKOLAS (RTI,PI,INTEGRASE) Routine 01/06/2023 10:25 AM EDT Encounter for medical examination to establish care BITEWING - SINGLE RADIOGRAPHIC IMAGE Routine 10/18/2022 3:30 PM EST Dental caries Acute pulpitis from Last 3 Months or Most Recently Relevant to Health Maintenance Results * XR Chest 2 Views (09/13/2024 2:12 PM EST) Anatomical Region Laterality Modality Chest Radiographic Sheri ging 09/13/2024 2:12 PM EST Narrative 09/13/2024 2:33 PM EST ?[facility] ?[address] ?[place] [address] ?XRay Report ? Signed ? Patient: Bradford Torres ?MR#: [id number] ?? [id number] ? : 1995 ?Acct:[id number] ? Age/Sex: 29 / M ?ADM Date: 09/13/24 ? Loc: HO.HHCX ? Attending Dr: Denice Rubin MD ? Ordering Physician: Denice Rubin MD ?? Date of Service: 09/13/24 ?? Procedure(s): XR chest 2V ?? Accession Number(s): [id number] ? cc: Denice Rubin MD ? EXAMINATION: [...] DD/ 1412 ? TD/TT: 09/13/24 1422 ? Optical Engineering Manager: ? Procedure Note Geovanna, Aamir - 09/13/[address] [address] XRay Report Signed Patient: Bradford Torres JMR#: [id number] : 1995Acct:[id number] Age/Sex: 29 / MADM Date: 09/13/24 Loc: HO.HHCX Attending Dr: Denice Rubin MD Ordering Physician: Denice Rubin MD Date of Service: 09/13/24 Procedure(s): XR chest 2V Accession Number(s): [id number] cc: Denice Rubin MD EXAMINATION: XR CHEST [...] 09/13/24 1429 DD/ 1412 TD/TT: 09/13/24 1422 Optical Engineering Manager: Denice Rubin MD IMG XR PROCEDURES Final Re sult * Influenza B (ID NOW Rapid Molecular) (09/13/2024 2:06 PM EST) Pathologist [facility] Influenza B Negative Negative, Indeterminate [facility] Swab 09/13/2024 2:06 PM EST Denice Rubin MD POINT OF CARE TEST ENTER/E DIT ORDERABLES Final Result [facility] [address] [place] [address] [phone] * Influenza A (ID NOW Rapid Molecular) (09/13/2024 2:06 PM EST) Influenza A Negative Negative, Indeterminate [facility] Swab 09/13/2024 2:06 PM EST us Denice Rubin MD POINT OF CARE TEST ENTER/E DIT ORDERABLES Final Result [facility] [address] [place] [phone] * POCT COVID-19 Ag Goldman ID NOW (09/13/2024 2:06 PM EST) Coronavirus Antigen PCR Negative Negative, Indeterminate, None Detected, Invalid, Specimen unsatisfactory for evaluation, Weakly Positive Swab 09/13/2024 2:06 PM EST us Denice Rubin MD POINT OF CARE TEST ENTER/E DIT ORDERABLES Final Result * US SCROTUM DOPPLER (09/09/2024 10:19 PM EST) Only the most recent of4 resultswithin the time period is included. Anatomical Region Laterality Modality Abdomen Ultrasound 09/09/2024 10:1 9 PM EST Narrative 09/10/2024 8:26 AM EST ? [facility] ?[address] ?[place] [address] ? Ultrasound Report ? Signed ? Patient: Bradford Torres ?MR#: [id number] ?? [id number] ? : 1995 ?Acct:[id number] ? Age/Sex: 29 / M ?ADM Date: 09/09/24 ? Loc: HO.ED ? Attending Dr: ? Ordering Physician: Sedrick Grady MD ?? Date of Service: 09/09/24 ?? Procedure(s): US scrotum doppler ?? Accession Number(s): [id number] ? cc: Everett Angulo MD; Sedrick Grady MD ? CLINICAL HISTORY: testicular pain , no swelling ? US Scrotum with Doppler ? Comparison: [place]/SR - US SCROTUM - 08/01/24 23:48 EST [...] signed by Sebastian Graham MD in OV> ?09/10/24825 ? DD/ 18 ? TD/TT: 09/09/242218 ? Optical Engineering Manager: ? Procedure Note Donotlamontinterpreter, Image - 09/10/2024 [place] [address] Ultrasound Report Signed Patient: Bradford Torres JMR#: [id number] : 1995Acct:[id number] Age/Sex: 29 / MADM Date: 09/09/24 Loc: HO.ED Attending Dr: Ordering Physician: Sedrick Grady MD Date of Service: 09/09/24 Procedure(s): US scrotum doppler Accession Number(s): [id number] cc: Name,Everett ROSE; Sedrick Grady MD CLINICAL HISTORY: testicular pain , no swelling US Scrotum with Doppler Comparison: [place]/SR - US SCROTUM - 08/01/24 23:48 EST [...] OV> 09/10/24 0826 DD/ 18 TD/TT: 09/09/242218 Optical Engineering Manager: [facility] External Provider IMG US PROCEDURES Edited Result - Final * US Scrotum (09/09/2024 10:19 PM EST) Only the most recent of4 resultswithin the time period is included. Anatomical Region Laterality Modality Body Ultrasound 09/09/2024 10:1 9 PM EST Narrative 09/09/2024 10:21 PM EST ? [facility] ?[address] ?[place] [address] ? Ultrasound Report ? Signed ? Patient: Torres,Bradford J ?MR#: [id number] ?? [id number] ? : 1995 ?Acct:[id number] ? Age/Sex: 29 / M ?ADM Date: 09/09/24 ? Loc: HO.ED ? Attending Dr: ? Ordering Physician: Sedrick Grady MD ?? Date of Service: 09/09/24 ?? Procedure(s): US scrotum ?? Accession Number(s): [id number] ? cc: Everett Angulo MD; Sedrick Grady MD ? CLINICAL HISTORY: testicular pain , no swelling ? US Scrotum with Doppler ? Comparison: [place] - US SCROTUM - 08/01/24 23:48 EST [...] signed by Sebastian Graham MD in OV> ?09/09/242220 ? DD/ 18 ? TD/TT: 09/09/242218 ? Optical Engineering Manager: ? Procedure Note Donunater, Image - 09/09/[address] [address] Ultrasound Report Signed Patient: Bradford Torres JMR#: [id number] : 1995Acct:[id number] Age/Sex: 29 / MADM Date: 09/09/24 Loc: HO.ED Attending Dr: Ordering Physician: Sedrick Grady MD Date of Service: 09/09/24 Procedure(s): US scrotum Accession Number(s): [id number] cc: Name,Everett ROSE; Sedrick Grady MD CLINICAL HISTORY: testicular pain , no swelling US Scrotum with Doppler Comparison: US/[place]/SR - US SCROTUM - 08/01/24 23:48 EST [...] in OV> 09/09/242220 DD/ 18 TD/TT: 09/09/242218 Optical Engineering Manager: us [facility] External Provider IMG US PROCEDURES Final Result * Lactic Acid (09/09/2024 8:47 PM EST) [facility] Lactic Acid 0.8 0.5 - 2.0 mmol/L [facility] 09/09/2024 8:47 PM EST 09/09/2024 8:53 PM EST Narrative [facility] - 09/09/2024 9:09 PM EST NOT ON ICE us Generic External Data Provider LAB BLOOD ORDERAB LES Final Result [facility] [address] [place] [phone] * (ABNORMAL) CBC auto differential (09/09/2024 8:17 PM EST) Only the most recent of5 resultswithin the time period is included. [facility] White Blood Count 7.7 4.8 - 10.8 X10*3/uL [facility] Red Blood Count 4.72 4.60 - 5.80 X10*6/uL [facility] Hemoglobin 12.4(L) 14.0 - 18.0 g/dl [facility] Hematocrit 36.7(L) 42.0 - 52.0 % [facility] Mean Corpuscular Volume 77.8(L) 80.0 - 98.[address] [facility] Mean Corpuscular Hemoglobin 26.3(L) 27.0 - 33.[address] [facility] Mean Corpuscular HGB Conc 33.8 31.0 - 36.0 g/dl [facility] Red Cell Distribution Width 13.9 11.0 - 16.0 % [facility] Platelet Count 236 160 - 400 X10*3/uL [facility] Mean Platelet Volume 9.4 9.4 - 12.[address] [facility] Neutrophils Percent Auto 71.7 45 - 73 % [facility] Imm Gran Pct Auto 0.1 0.0 - 0.4 % [facility] Lymphocytes Percent Auto 15.8(L) 20 - 40 % [facility] Monocytes Percent Auto 10.3 2 - 11 % [facility] Eosinophils Percent Auto 1.6 0 - 4 % [facility] Basophils Percent Auto 0.5 0 - 2 % [facility] NRBC Pct Auto 0.0 0.0 - 0.2 /100WBC [facility] Neutrophils Absolute Auto 5.5 2.0 - 8.3 x10*3/uL [facility] Imm Gran Abs Auto 0.01 0.00 - 0.03 X10*3/uL [facility] Lymphocytes Absolute Auto 1.2 1.2 - 4.9 X10*3/uL [facility] Monocytes Absolute Auto 0.8 0.1 - 1.2 X10*3/uL [facility] Eosinophils Absolute Auto 0.1 0.0 - 0.4 X10*3/uL [facility] Basophils Absolute Auto 0.0 0.0 - 0.2 X10*3/uL [facility] NRBC Abs Auto 0.000 0.0 - 0.012 X10*3/uL [facility] 09/09/2024 8:17 PM EST 09/09/2024 8:19 PM EST us Generic External Data Provider LAB BLOOD ORDERAB LES Final Result [facility] [address] [place] [phone] * (ABNORMAL) Comprehensive Metabolic Panel (09/09/2024 8:17 PM EST) Only the most recent of3 resultswithin the time period is included. Sodium 136 135 - 145 mmol/L [facility] Potassium 3.9 3.3 - 5.1 mmol/L [facility] Chloride 104 96 - 108 mmol/L [facility] Carbon Dioxide 21(L) 22 - 29 mmol/L [facility] Anion Gap 15 12 - [address] [facility] Urea Nitrogen (BUN) 15 9 - 16 mg/dL [facility] Creatinine, Serum 0.60 0.5 - 1.4 mg/dL [facility] Creatinine Clr Calc Pharmacy 178.[address] [facility] Comment:eGFR (calculated fro m the MDRD study equation) and eCrCl(calculated from the Cockcroft-Gault equation) are based ondifferent parameters and may not yield comparable results.If eCrCl result is absurd, please check patient'sheight/weight. Estimated Glomerular Filt Rate >[address] [facility] Comment:Chronic Kidney Disea se: Estimated GFR < 60 mL/min/[id number] Kidney Disease: Estimated GFR < 15 mL/min/1.73m2 Glucose 112 60 - 115 mg/dL [facility] Calcium 8.6 8.4 - 10.2 mg/dL [facility] Bilirubin, Total 0.4 0.0 - 1.0 mg/dL [facility] Aspartate Amino Transferase 18 5 - 37 U/L [facility] Alanine Aminotransferase 12 0 - 40 U/L [facility] Total Protein 7.4 6.5 - 8.0 g/dL [facility] Albumin Level 4.2 3.5 - 5.0 g/dL [facility] Alkaline Phosphatase 64 39 - 117 U/L [facility] 09/09/2024 8:17 PM EST 09/09/2024 8:19 PM EST us Generic External Data Provider LAB BLOOD ORDERAB LES Final Result [facility] [address] [place] [phone] * Urinalysis w/reflex microscopic (09/09/2024 6:42 PM EST) Color Urine Yellow [facility] Appearance Urine Clear [facility] PH >=9.0 5.0 - 9.[address] [facility] Glucose Urine UA Negative Negative mg/dL [facility] Urine Blood Negative Negative [facility] Specific [place] - Urine 1.025 1.005 - 1.[address] [facility] Urine Protein Negative Neg-Trace mg/dL [facility] Urine Ketones 15 Negative mg/dL [facility] Nitrite Urine Negative Negative [facility] Leukocyte Esterase Urine Negative Negative [facility] 09/09/2024 6:42 PM EST 09/09/2024 6:44 PM EST Narrative [facility] - 09/09/2024 6:59 PM EST Urine, Clean Catch Generic External Data Provider LAB URINE ORDERAB LES Final Result Performing Organization Address [facility] Co de Phone Number [facility] [address] [place] [phone] * (ABNORMAL) Glucose, Whole Blood (09/01/2024 6:08 PM EST) Only the most recent of5 resultswithin the time period is included. Glucose, Whole Blood 151(H) 60 - 115 mg/dL [facility] Comment:METER #: [id number] 09/01/2024 6:08 PM EST 09/01/2024 6:15 PM EST Generic External Data Provider LAB BLOOD ORDERAB LES Final Result Performing Organization Address [facility] Co de Phone Number [facility] [address] [place] [phone] * CT Abdomen Pelvis w/ Contrast (09/01/2024 10:50 AM EST) Anatomical Region Laterality Modality Body, Pelvis, Abdomen Computed T omography 09/01/2024 10:5 0 AM EST Narrative 09/01/2024 6:48 PM EST ? [facility] ?[address] ?[place] [address] ? CT Scan Report ? Signed ? Patient: Torres,Bradford J ?MR#: [id number] ?? [id number] ? : 1995 ?Acct:[id number] ? Age/Sex: 29 / M ?ADM Date: 01/12/25 ? Loc: HO.ED ? Attending Dr: ? Ordering Physician: Ulises Dejesus MD ?? Date of Service: 09/01/24 ?? Procedure(s): CT abdomen pelvis w IV con ?? Accession Number(s): [id number] ? cc: Ulises Dejesus MD; [facility] ? Report Number: ?? [id number]: Total DLP = ??378.00 mGy-cm ? CLINICAL [...] DD/ 1050 ? TD/TT: 09/01/24 1050 ? Optical Engineering Manager: ? Procedure Note Aamir Austin - 09/01/[address] [place] [address] [address] Scan Report Signed Patient: Bradford Torres R#: [id number] : 1995Acct:[id number] Age/Sex: 29 / MADM Date: 09/01/24 Loc: HO.ED Attending Dr: Ordering Physician: Ulises Dejesus MD Date of Service: 09/01/24 Procedure(s): CT abdomen pelvis w IV con Accession Number(s): [id number] cc: Ulises Dejesus MD; [facility] Report Number: [id number]: Total DLP = 378.00 mGy-cm CLINICAL HISTORY: [...] Chamberlain MD in OV> 09/01/24 1849 DD/ 1050 TD/TT: 09/01/24 1050 Optical Engineering Manager: [facility] External Provider IMG CT PROCEDURES Edited Result - Final * (ABNORMAL) Beta-Hydroxybutyrate (09/01/2024 9:30 AM EST) Only the most recent of2 resultswithin the time period is included. Beta-Hydroxybu tyrate 1.28(H) 0.02 - 0.27 mmol/L [facility] 09/01/2024 9:30 AM EST 09/01/2024 9:34 AM EST Generic External Data Provider LAB BLOOD ORDERAB LES Final Result Performing Organization Address [facility] Co de Phone Number [facility] [address] [place] [phone] * C-reactive Protein (09/01/2024 9:30 AM EST) C Reactive Protein <0.10 < or = 0.50 mg/dL [facility] 09/01/2024 9:30 AM EST 09/01/2024 9:34 AM EST Generic External Data Provider LAB BLOOD ORDERAB LES Final Result Performing Organization Address [facility] Co de Phone Number [facility] [address] [place] [phone] * XR Knee 1-2 Views Left (08/07/2024 5:27 AM EST) Anatomical Region Laterality Modality Lower Extremities, Knee Left Radiogra phic Imaging 08/07/2024 5:27 AM EST Narrative 08/07/2024 9:13 AM EST ? [facility] ?[address] ?[place] [address] ?XRay Report ? Signed ? Patient: Torres,Bradford J ?MR#: [id number] ?? [id number] ? : 1995 ?Acct:[id number] ? Age/Sex: 29 / M ?ADM Date: 08/07/24 ? Loc: HO.ED ? Attending Dr: ? Ordering Physician: eSdrick Grady MD ?? Date of Service: 08/07/24 ?? Procedure(s): XR knee LT 2V ?? Accession Number(s): [id number] ? cc: Everett Angulo MD; Sedrick Grady MD ? EXAMINATION: ?? XR KNEE, LEFT ? CLINICAL INFORMATION: ?? Pain with bearing weight x2w. ? COMPARISON: ?? None available. ? TECHNIQUE: ?? 2 views of the left knee. ? FINDINGS: ?? Small joint effusion. ? Multiple sclerotic foci overlying the distal femur as well as sclerotic ?? foci proximal tibia, possibly bone islands. ? Minimal narrowing of the medial compartment. ? XR/XR knee LT 2V ?? IMPRESSION: ? 1 Small joint effusion. ? 2. Multiple sclerotic foci overlying the distal femur as well as ?? sclerotic foci proximal tibia, possibly bone islands. ? 3. Minimal narrowing of the medial compartment. ? This study was presented today to August 07, 2024 for interpretation. ?? Stat results provided at this time as requested by referring provider. ? Electronically signed by: ??Layla Head MD ??08/07/2024 09:10 AM EST ?? RP ? Dictated By: ?Layla Head MD ? Signed By: ?<Electronically signed by Layla Head MD in OV> ? 08/07/24 0910 ? DD/ 0527 ? TD/TT: 08/07/24 0532 ? Optical Engineering Manager: ? Procedure Note Aamir Austin - 08/07/[address] [place] [address] XRay Report Signed Patient: Bradford Torres JMR#: [id number] : 1995Acct:[id number] Age/Sex: 29 / MADM Date: 08/07/24 Loc: HO.ED Attending Dr: Ordering Physician: Sedrick Grady MD Date of Service: 08/07/24 Procedure(s): XR knee LT 2V Accession Number(s): [id number] cc: Name,Everett ROSE; Sedrick Grady MD EXAMINATION: XR KNEE, LEFT CLINICAL INFORMATION: Pain with bearing weight x2w. COMPARISON: None available. TECHNIQUE: 2 views of the left knee. FINDINGS: Small joint effusion. Multiple sclerotic foci overlying the distal femur as well as sclerotic foci proximal tibia, possibly bone islands. Minimal narrowing of the medial compartment. XR/XR knee LT 2V IMPRESSION: 1 Small joint effusion. 2. Multiple sclerotic foci overlying the distal femur as well as sclerotic foci proximal tibia, possibly bone islands. 3. Minimal narrowing of the medial compartment. This study was presented today to August 07, 2024 for interpretation. Stat results provided at this time as requested by referring provider. Electronically signed by: Layla Head MD 08/07/2024 09:10 AM EST Dictated By: Layla Head MD Signed By: <Electronically signed by Layla Head MD in OV> 08/07/24 0910 DD/ 0527 TD/TT: 08/07/24 0532 Optical Engineering Manager: [facility] External Provider IMG XR PROCEDURES Edited Result - Final * (ABNORMAL) Urinalysis, Complete, with Reflex to Culture (08/05/2024 2:20 AM EST) Only the most recent of2 resultswithin the time period is included. Color Urine Yellow [facility] Appearance Urine Clear [facility] PH 6.5 5.0 - 9.[address] [facility] Glucose Urine UA >=1000(A) Negative mg/dL [facility] Urine Blood Negative Negative [facility] Specific [place] - Urine 1.025 1.005 - 1.[address] [facility] Urine Protein 30 (1+)(A) Neg-Trace mg/dL [facility] Urine Ketones Negative Negative mg/dL [facility] Nitrite Urine Negative Negative [facility] Leukocyte Esterase Urine Negative Negative [facility] RBC Urine 0-2 0 - 2 /HPF [facility] Urine WBC 0-5 0 - 5 /HPF [facility] Urine Squamous Epithelial Cell 0-2 0 - 2 /HPF [facility] Urine Bacteria None Seen None Seen [facility] Hyaline Casts, Urine 0-2 0 - 2 /LPF [facility] 08/05/2024 2:20 AM EST 08/05/2024 2:22 AM EST Narrative [facility] - 08/05/2024 2:45 AM EST Urine, Clean Catch us Generic External Data Provider LAB URINE ORDERAB LES Final Result Performing Organization Address City/[facility]/ZIP Co de Phone Number [facility] [address] [place] [phone] * Hold Red (08/05/2024 2:10 AM EST) Hold Red See Note [facility] Comment:Specimen held untest ed for 24 hours; Call to requestChemistry testing. 08/05/2024 2:10 AM EST 08/05/2024 2:20 AM EST us Generic External Data Provider LAB BLOOD ORDERAB LES Final Result Performing Organization Address City/[facility]/ZIP Co de Phone Number [facility] [address] [place] [phone] * (ABNORMAL) Lipase (08/05/2024 2:10 AM EST) Only the most recent of3 resultswithin the time period is included. Lipase 6(L) 8 - 78 U/L [facility] 08/05/2024 2:10 AM EST 08/05/2024 2:14 AM EST us Generic External Data Provider LAB BLOOD ORDERAB LES Final Result Performing Organization Address City/[facility]/ZIP Co de Phone Number [facility] [address] [place] [phone] * Basic Metabolic Panel (08/05/2024 2:10 AM EST) Only the most recent of3 resultswithin the time period is included. Sodium 140 135 - 145 mmol/L [facility] Potassium 3.6 3.3 - 5.1 mmol/L [facility] Chloride 105 96 - 108 mmol/L [facility] Carbon Dioxide 27 22 - 29 mmol/L [facility] Anion Gap 12 12 - [address] [facility] Urea Nitrogen (BUN) 15 9 - 16 mg/dL [facility] Creatinine, Serum 0.87 0.5 - 1.4 mg/dL [facility] Creatinine Clr Calc Pharmacy 116.[address] [facility] Comment:eGFR (calculated fro m the MDRD study equation) and eCrCl(calculated from the Cockcroft-Gault equation) are based ondifferent parameters and may not yield comparable results.If eCrCl result is absurd, please check patient'sheight/weight. Estimated Glomerular Filt Rate >[address] [facility] Comment:Chronic Kidney Disea se: Estimated GFR < 60 mL/min/1.96w7Aukiqt Kidney Disease: Estimated GFR < 15 mL/min/1.73m2 Glucose 88 60 - 115 mg/dL [facility] Calcium 9.1 8.4 - 10.2 mg/dL [facility] 08/05/2024 2:10 AM EST 08/05/2024 2:14 AM EST us Generic External Data Provider LAB BLOOD ORDERAB LES Final Result Performing Organization Address City/[facility]/ZIP Co de Phone Number [facility] [address] [place] [phone] * Hepatic Function Panel (08/01/2024 11:23 PM EST) Only the most recent of2 resultswithin the time period is included. Bilirubin, Total 0.5 0.0 - 1.0 mg/dL [facility] Bilirubin, Direct 0.2 0.0 - 0.5 mg/dL [facility] Aspartate Amino Transferase 19 5 - 37 U/L [facility] Alanine Aminotransferase 17 0 - 40 U/L [facility] Total Protein 6.7 6.5 - 8.0 g/dL [facility] Albumin Level 3.9 3.5 - 5.0 g/dL [facility] Alkaline Phosphatase 65 39 - 117 U/L [facility] 08/01/2024 11:2 3 PM EST 08/01/2024 11:26 PM EST us Generic External Data Provider LAB BLOOD ORDERAB LES Final Result [facility] [address] [place] [phone] * Chlamydia/N. Gonorrhoeae RNA, TMA, Urogenitial (07/31/2024 3:08 PM EST) [facility] CT PCR NOT DETECTED Not Detect. [facility] Comment:A not detected test result does not exclude the possibilityof infection because test results can be affected byimproper specimen collection, concurrent antibiotic therapy,or the number of organisms in the specimen which may bebelow the sensitivity of the test. As with many diagnostictests, results from the Xpert CT/NG assay should beinterpreted in conjunction with other laboratory andclinical data available to the clinician.Xpert CT/NG performance has not been evaluated in patientsless than 14 years of age. The assay should not be used forthe evaluationof suspected sexual abuse or for other medico-legalindications. Additional testing is recommended in anycircumstance when false positive or false negative resultscould lead to adverse medical, social or psychologicalconsequences. NG PCR NOT DETECTED Not Detect. [facility] Comment:A not detected test result does not exclude the possibilityof infection because test results can be affected byimproper specimen collection, concurrent antibiotic therapy,or the number of organisms in the specimen which may bebelow the sensitivity of the test. As with many diagnostictests, results from the Xpert CT/NG assay should beinterpreted in conjunction with other laboratory andclinical data available to the clinician.Xpert CT/NG performance has not been evaluated in patientsless than 14 years of age. The assay should not be used forthe evaluationof suspected sexual abuse or for other medico-legalindications. Additional testing is recommended in anycircumstance when false positive or false negative resultscould lead to adverse medical, social or psychologicalconsequences. 07/31/2024 3:08 PM EST 07/31/2024 3:12 PM EST Narrative [facility] - 07/31/2024 5:21 PM EST Urine us Generic External Data Provider LAB MICROBIOLOGY - GENERAL ORDERABLES Final Result [facility] [address] [place] [address] [phone] * VENOUS BLOOD GAS (07/31/2024 1:17 PM EST) VBG pH 7.43 7.32 - 7.[address] [facility] Comment:METER #: [id number] additional_comment: Cb omoruna VBG PCO2 [address] [facility] Comment:METER #: [id number] additional_comment: Cb omoruna VBG PO2 [address] [facility] Comment:METER #: [id number] additional_comment: Cb omoruna VBG Base Excess 2.5 mmol/L [facility] Comment:METER #: [id number] additional_comment: Cb omoruna VBG HCO3 26 22 - 26 mmol/L [facility] Comment:METER #: [id number] additional_comment: Cb omoruna O2 Sat, Carlin 99.0 % [facility] Comment:METER #: [id number] additional_comment: Cb omoruna 07/31/2024 1:17 PM EST 07/31/2024 1:22 PM EST us Generic External Data Provider LAB BLOOD ORDERAB LES Final Result [facility] [address] [facility] [place] [phone] * POCT glucose manually resulted (07/31/2024 10:20 AM EST) Glucose Blood, POC 198 60 - 200 mg/dL Blood Capillary blood specimen / Unknown 07/31/2024 10:20 AM EST us Lindsey Appram THERAPY DIRECTOR POINT OF CARE TEST ENTER/EDIT O RDERABLES Final Result * CT Cervical Spine w/o Contrast (07/16/2024 11:09 AM EST) Anatomical Region Laterality Modality Spine, C-spine Computed Tomogra phy 07/16/2024 11:0 9 AM EST Narrative 07/16/2024 4:27 PM EST ? [facility] ?[address] ?[place] [address] ? CT Scan Report ? Signed ? Patient: Bradford Torres ?MR#: [id number] ?? [id number] ? : 1995 ?Acct:[id number] ? Age/Sex: 29 / M ?ADM Date: 07/16/24 ? Loc: HO.ED ? Attending Dr: ? Ordering Physician: Jamilah Mcintyre THERAPY DIRECTOR ?? Date of Service: 07/16/24 ?? Procedure(s): CT cervical spine wo IV con ?? Accession Number(s): [id number] ? cc: Name,Everett ROSE; Jamilah Mcintyre NP ? EXAMINATION: ?? CT HEAD WITHOUT CONTRAST ?? CT FACIAL BONES WITHOUT CONTRAST ?? CT CERVICAL SPINE WITHOUT CONTRAST ? CLINICAL INFORMATION: ?? Trauma. Right-sided face pain. Visual changes. Neck pain. ? COMPARISON: ?? None. ? TECHNIQUE: ?? Imaging was performed from the skull base to vertex without intravenous ?? administration of contrast. In addition, helical noncontrast CT imaging ?? was acquired through the cervical spine and facial bones and source ?? images were reviewed along with axial reconstructions and sagittal and ?? coronal MPRs. ? [This CT examination was performed using dose optimization techniques ?? as appropriate, variously including the following: ? *Automated exposure control ? *Adjustment of mA and/or kV according to patient size (this includes ?? techniques or standardized protocols for targeted exams where dose is ?? matched to indication/reason for exam; i.e. extremities or head) ? *Use of iterative reconstruction technique] ? DLP: ?? 1225 mGy-cm ? FINDINGS: ? HEAD: No intracranial mass, hemorrhage, or midline shift is visualized. ?? The ventricles and sulci are normal. No extra-axial collections are ?? identified. ? FACIAL BONES: There is no evidence of an acute facial bone fracture. ?? The paranasal sinuses are well aerated. The orbits are unremarkable in ?? appearance. ? CERVICAL SPINE: There is no evidence of acute cervical spine fracture. ?? Vertebral bodies remain normal in height, intervertebral disc spaces ?? are preserved, and alignment is anatomic. No pre- or paravertebral soft ?? tissue abnormality is identified. Limited assessment of the lung apices ?? is unremarkable. ? CT/CT cervical spine wo IV con ?? IMPRESSION: ?? 1. No acute intracranial process or discrete facial bone fracture. ?? 2. No acute cervical spine fracture or traumatic subluxation. ? Electronically signed by: ??Paul Zuñiga MD ??07/16/2024 04:24 PM EST RP ? Dictated By: ?Paul Zuñiga MD ? Signed By: ?<Electronically signed by Paul Zuñiga MD in OV> ?07/16/24 1624 ? DD/ 1109 ? TD/TT: 07/16/24 1120 ? Optical Engineering Manager: BA ? Procedure Note Geovanna, Image - 07/16/[address] [address] [address] Scan Report Signed Patient: Bradford Torers R#: [id number] : 1995Acct:[id number] Age/Sex: 29 / MADM Date: 07/16/24 Loc: HO.ED Attending Dr: Ordering Physician: Jamilah Mcintyre NP Date of Service: 07/16/24 Procedure(s): CT cervical spine wo IV con Accession Number(s): [id number] cc: Name,Everett ROSE; Jamilah Mcintyre NP EXAMINATION: CT HEAD WITHOUT CONTRAST CT FACIAL BONES WITHOUT CONTRAST CT CERVICAL SPINE WITHOUT CONTRAST CLINICAL INFORMATION: Trauma. Right-sided face pain. Visual changes. Neck pain. COMPARISON: None. TECHNIQUE: Imaging was performed from the skull base to vertex without intravenous administration of contrast. In addition, helical noncontrast CT imaging was acquired through the cervical spine and facial bones and source images were reviewed along with axial reconstructions and sagittal and coronal MPRs. [This CT examination was performed using dose optimization techniques as appropriate, variously including the following: *Automated exposure control *Adjustment of mA and/or kV according to patient size (this includes techniques or standardized protocols for targeted exams where dose is matched to indication/reason for exam; i.e. extremities or head) *Use of iterative reconstruction technique] DLP: 1225 mGy-cm FINDINGS: HEAD: No intracranial mass, hemorrhage, or midline shift is visualized. The ventricles and sulci are normal. No extra-axial collections are identified. FACIAL BONES: There is no evidence of an acute facial bone fracture. The paranasal sinuses are well aerated. The orbits are unremarkable in appearance. CERVICAL SPINE: There is no evidence of acute cervical spine fracture. Vertebral bodies remain normal in height, intervertebral disc spaces are preserved, and alignment is anatomic. No pre- or paravertebral soft tissue abnormality is identified. Limited assessment of the lung apices is unremarkable. CT/CT cervical spine wo IV con IMPRESSION: 1. No acute intracranial process or discrete facial bone fracture. 2. No acute cervical spine fracture or traumatic subluxation. Electronically signed by: Paul Zuñiga MD 07/16/2024 04:24 PM [facility] Dictated By: Paul Zuñiga MD Signed By: <Electronically signed by Paul Zuñiga MD in OV> 07/16/24 1624 DD/ 1109 TD/TT: 07/16/24 1120 Optical Engineering Manager: [facility] External Provider IMG CT PROCEDURES Final Result * CT Sinus Facial Bones w/o Contrast (07/16/2024 11:01 AM EST) Anatomical Region Laterality Modality Computed Tomogra phy 07/16/2024 11:0 1 AM EST Narrative 07/16/2024 4:27 PM EST ? [facility] ?[address] ?[place], [place] [address] ? CT Scan Report ? Signed ? Patient: Bradford Torres ?MR#: [id number] ?? [id number] ? : 1995 ?Acct:[id number] ? Age/Sex: 29 / M ?ADM Date: 07/16/24 ? Loc: HO.ED ? Attending Dr: ? Ordering Physician: Jamilah Mcintyre NP ?? Date of Service: 07/16/24 ?? Procedure(s): CT facial bones wo IV con ?? Accession Number(s): [id number] ? cc: Name,Everett ROSE; Jamilah Mcintyre NP ? EXAMINATION: ?? CT HEAD WITHOUT CONTRAST ?? CT FACIAL BONES WITHOUT CONTRAST ?? CT CERVICAL SPINE WITHOUT CONTRAST ? CLINICAL INFORMATION: ?? Trauma. Right-sided face pain. Visual changes. Neck pain. ? COMPARISON: ?? None. ? TECHNIQUE: ?? Imaging was performed from the skull base to vertex without intravenous ?? administration of contrast. In addition, helical noncontrast CT imaging ?? was acquired through the cervical spine and facial bones and source ?? images were reviewed along with axial reconstructions and sagittal and ?? coronal MPRs. ? [This CT examination was performed using dose optimization techniques ?? as appropriate, variously including the following: ? *Automated exposure control ? *Adjustment of mA and/or kV according to patient size (this includes ?? techniques or standardized protocols for targeted exams where dose is ?? matched to indication/reason for exam; i.e. extremities or head) ? *Use of iterative reconstruction technique] ? DLP: ?? 1225 mGy-cm ? FINDINGS: ? HEAD: No intracranial mass, hemorrhage, or midline shift is visualized. ?? The ventricles and sulci are normal. No extra-axial collections are ?? identified. ? FACIAL BONES: There is no evidence of an acute facial bone fracture. ?? The paranasal sinuses are well aerated. The orbits are unremarkable in ?? appearance. ? CERVICAL SPINE: There is no evidence of acute cervical spine fracture. ?? Vertebral bodies remain normal in height, intervertebral disc spaces ?? are preserved, and alignment is anatomic. No pre- or paravertebral soft ?? tissue abnormality is identified. Limited assessment of the lung apices ?? is unremarkable. ? CT/CT facial bones wo IV con ?? IMPRESSION: ?? 1. No acute intracranial process or discrete facial bone fracture. ?? 2. No acute cervical spine fracture or traumatic subluxation. ? Electronically signed by: ??Paul Zuñiga MD ??07/16/2024 04:24 PM EST RP ? Dictated By: ?Paul Zuñiga MD ? Signed By: ?<Electronically signed by Paul Zuñiga MD in OV> ?07/16/24 1624 ? DD/ 1101 ? TD/TT: 07/16/24 1120 ? Optical Engineering Manager: BA ? Procedure Note Aamir Austin - 07/16/[address] [place] [address] [address] Scan Report Signed Patient: Bradford Torres R#: [id number] : 1995Acct:[id number] Age/Sex: 29 / MADM Date: 07/16/24 Loc: HO.ED Attending Dr: Ordering Physician: Jamilah Mcintyre NP Date of Service: 07/16/24 Procedure(s): CT facial bones wo IV con Accession Number(s): [id number] cc: Everett Angulo MD; Jamilah Mcintyre NP EXAMINATION: CT HEAD WITHOUT CONTRAST CT FACIAL BONES WITHOUT CONTRAST CT CERVICAL SPINE WITHOUT CONTRAST CLINICAL INFORMATION: Trauma. Right-sided face pain. Visual changes. Neck pain. COMPARISON: None. TECHNIQUE: Imaging was performed from the skull base to vertex without intravenous administration of contrast. In addition, helical noncontrast CT imaging was acquired through the cervical spine and facial bones and source images were reviewed along with axial reconstructions and sagittal and coronal MPRs. [This CT examination was performed using dose optimization techniques as appropriate, variously including the following: *Automated exposure control *Adjustment of mA and/or kV according to patient size (this includes techniques or standardized protocols for targeted exams where dose is matched to indication/reason for exam; i.e. extremities or head) *Use of iterative reconstruction technique] DLP: 1225 mGy-cm FINDINGS: HEAD: No intracranial mass, hemorrhage, or midline shift is visualized. The ventricles and sulci are normal. No extra-axial collections are identified. FACIAL BONES: There is no evidence of an acute facial bone fracture. The paranasal sinuses are well aerated. The orbits are unremarkable in appearance. CERVICAL SPINE: There is no evidence of acute cervical spine fracture. Vertebral bodies remain normal in height, intervertebral disc spaces are preserved, and alignment is anatomic. No pre- or paravertebral soft tissue abnormality is identified. Limited assessment of the lung apices is unremarkable. CT/CT facial bones wo IV con IMPRESSION: 1. No acute intracranial process or discrete facial bone fracture. 2. No acute cervical spine fracture or traumatic subluxation. Electronically signed by: Paul Zuñiga MD 07/16/2024 04:24 PM EST RP Dictated By: Paul Zuñiga MD Signed By: <Electronically signed by Paul Zuñiga MD in OV> 07/16/24 1624 DD/ 1101 TD/TT: 07/16/24 1120 Optical Engineering Manager: [facility] External Provider IMG CT PROCEDURES Final Result * CT Head w/o Contrast (07/16/2024 11:01 AM EST) Anatomical Region Laterality Modality Head, Neck Computed Tomogra phy 07/16/2024 11:0 1 AM EST Narrative 07/16/2024 4:27 PM EST ? [facility] ?[address] ?[place] [address] ? CT Scan Report ? Signed ? Patient: Torres,Bradford J ?MR#: [id number] ?? [id number] ? : 1995 ?Acct:[id number] ? Age/Sex: 29 / M ?ADM Date: 07/16/24 ? Loc: HO.ED ? Attending Dr: ? Ordering Physician: Jamilah Mcintyre NP ?? Date of Service: 07/16/24 ?? Procedure(s): CT head/brain wo IV con ?? Accession Number(s): [id number] ? cc: Name,Everett ROSE; Jamilah Mcintyre NP ? EXAMINATION: ?? CT HEAD WITHOUT CONTRAST ?? CT FACIAL BONES WITHOUT CONTRAST ?? CT CERVICAL SPINE WITHOUT CONTRAST ? CLINICAL INFORMATION: ?? Trauma. Right-sided face pain. Visual changes. Neck pain. ? COMPARISON: ?? None. ? TECHNIQUE: ?? Imaging was performed from the skull base to vertex without intravenous ?? administration of contrast. In addition, helical noncontrast CT imaging ?? was acquired through the cervical spine and facial bones and source ?? images were reviewed along with axial reconstructions and sagittal and ?? coronal MPRs. ? [This CT examination was performed using dose optimization techniques ?? as appropriate, variously including the following: ? *Automated exposure control ? *Adjustment of mA and/or kV according to patient size (this includes ?? techniques or standardized protocols for targeted exams where dose is ?? matched to indication/reason for exam; i.e. extremities or head) ? *Use of iterative reconstruction technique] ? DLP: ?? 1225 mGy-cm ? FINDINGS: ? HEAD: No intracranial mass, hemorrhage, or midline shift is visualized. ?? The ventricles and sulci are normal. No extra-axial collections are ?? identified. ? FACIAL BONES: There is no evidence of an acute facial bone fracture. ?? The paranasal sinuses are well aerated. The orbits are unremarkable in ?? appearance. ? CERVICAL SPINE: There is no evidence of acute cervical spine fracture. ?? Vertebral bodies remain normal in height, intervertebral disc spaces ?? are preserved, and alignment is anatomic. No pre- or paravertebral soft ?? tissue abnormality is identified. Limited assessment of the lung apices ?? is unremarkable. ? CT/CT head/brain wo IV con ?? IMPRESSION: ?? 1. No acute intracranial process or discrete facial bone fracture. ?? 2. No acute cervical spine fracture or traumatic subluxation. ? Electronically signed by: ??Paul Zuñiga MD ??07/16/2024 04:24 PM EST RP ? Dictated By: ?Paul Zuñiga MD ? Signed By: ?<Electronically signed by Paul Zuñiga MD in OV> ?07/16/24 1624 ? DD/ 1101 ? TD/TT: 07/16/24 1120 ? Optical Engineering Manager: BA ? Procedure Note Donotuseinterpreter, Image - 07/16/[address] [place] [address] [address] Scan Report Signed Patient: Bradford Torres JMR#: [id number] : 1995Acct:[id number] Age/Sex: 29 / MADM Date: 07/16/24 Loc: HO.ED Attending Dr: Ordering Physician: Jamilah Mcintyre NP Date of Service: 07/16/24 Procedure(s): CT head/brain wo IV con Accession Number(s): [id number] cc: Name,Everett ROSE; Jamilah Mcintyre NP EXAMINATION: CT HEAD WITHOUT CONTRAST CT FACIAL BONES WITHOUT CONTRAST CT CERVICAL SPINE WITHOUT CONTRAST CLINICAL INFORMATION: Trauma. Right-sided face pain. Visual changes. Neck pain. COMPARISON: None. TECHNIQUE: Imaging was performed from the skull base to vertex without intravenous administration of contrast. In addition, helical noncontrast CT imaging was acquired through the cervical spine and facial bones and source images were reviewed along with axial reconstructions and sagittal and coronal MPRs. [This CT examination was performed using dose optimization techniques as appropriate, variously including the following: *Automated exposure control *Adjustment of mA and/or kV according to patient size (this includes techniques or standardized protocols for targeted exams where dose is matched to indication/reason for exam; i.e. extremities or head) *Use of iterative reconstruction technique] DLP: 1225 mGy-cm FINDINGS: HEAD: No intracranial mass, hemorrhage, or midline shift is visualized. The ventricles and sulci are normal. No extra-axial collections are identified. FACIAL BONES: There is no evidence of an acute facial bone fracture. The paranasal sinuses are well aerated. The orbits are unremarkable in appearance. CERVICAL SPINE: There is no evidence of acute cervical spine fracture. Vertebral bodies remain normal in height, intervertebral disc spaces are preserved, and alignment is anatomic. No pre- or paravertebral soft tissue abnormality is identified. Limited assessment of the lung apices is unremarkable. CT/CT head/brain wo IV con IMPRESSION: 1. No acute intracranial process or discrete facial bone fracture. 2. No acute cervical spine fracture or traumatic subluxation. Electronically signed by: Paul Zuñiga MD 07/16/2024 04:24 PM EST Dictated By: Paul Zuñiga MD Signed By: <Electronically signed by Paul Zuñiga MD in OV> 07/16/24 1624 DD/ 1101 TD/TT: 07/16/24 1120 Optical Engineering Manager: [facility] External Provider IMG CT PROCEDURES Final Result * SARS-CoV-2 RNA, Influenza A/B, and RSV RNA, Ql NAAT (07/01/2024 12:49 PM EST) Influenza A PCR NEGATIVE Negative [facility] Influenza B PCR NEGATIVE Negative [facility] Resp Syncy Virus RNA Qual PCR NEGATIVE Negative [facility] SARS COV2 PCR NEGATIVE Negative [facility] Comment:All test results mus t be correlated with clinical findings.Negative results do not preclude SARS-CoV2, influenza Avirus, influenza B virus and/or RSV infectionand should not be used as the sole basis for treatment orother patient management decisions. Negative results must becombined with clinical observations, patient history, andepidemiological information.This test has not been evaluated for monitoring treatment ofinfection.This test has been authorized by the FDA under an EmergencyUse Authorization (EUA) for use by authorized laboratories.Testing performed on the [employer] GeneXpert utilizingreal-time RT-PCR.All SARS CoV2 and positive influenza A/B results arereported to [facility]. 07/01/2024 12:4 9 PM EST 07/01/2024 12:51 PM EST Generic External Data Provider LAB MICROBIOLOGY - GENERAL ORDERABLES Final Result Performing Organization Address [facility]/ZIP Co de Phone Number [facility] [address] [place] [phone] * Magnesium (07/01/2024 12:49 PM EST) Pathologist [facility] Magnesium 2.0 1.6 - 2.6 mg/dL [facility] 07/01/2024 12:4 9 PM EST 07/01/2024 12:51 PM EST Generic External Data Provider LAB BLOOD ORDERAB LES Final Result Performing Organization Address [facility] Co de Phone Number [facility] [address] [place] [phone] * (ABNORMAL) POCT A1C (02/26/2024 3:39 PM EDT) Pathologist [facility] Hemoglobin A1C 9.3(A) 4.0 - 6.0 % Blood 02/26/2024 3:39 PM EDT Result [facility] POINT OF CARE TEST ENTER/EDIT O RDERABLES Final Result * Hepatitis C Antibody with Reflex to HCV, RNA, Quantitative, Real-Time PCR (11/15/2023 1:28 PM EDT) Pathologist [facility] Hepatitis C Antibody Nonreactive Nonreactive [facility] Comment:Antibodies to HCV no t detected; does not exclude early acuteHCV infection. Blood Venous blood specimen / Unknown 11/15/2023 1:28 PM EDT 11/15/2023 4:04 PM EDT AmnaMasquemedicos TEAM MEMBER LAB BLOOD ORDERABLES Final Resu lt Performing Organization Address [facility]/ZIP Co de Phone Number [facility] [address] [place] [phone] * Lipid Panel, Standard (11/15/2023 1:28 PM EDT) Triglycerides 56 <150 mg/dL [facility] Comment:Desirable Triglyceri de: less than 150 mg/dLBorderline High Triglyceride 150-199 mg/dLHigh Triglyceride: 200-499 mg/dLVery High Triglyceride: greater than or equal to 5OO mg/dL Cholesterol 145 <200 mg/dL [facility] Comment:Desirable Cholestero l: less than 200 mg/dLBorderline High Cholesterol: 200-239 mg/dLHigh Cholesterol: greater than 239 mg/dL LDL Cholesterol Calculated 84 <100 mg/dL [facility] Comment:Desirable LDL: less than 100 mg/dLNear Optimal/Above Optimal LDL: 110- 129 mg/dLBorderline High LDL: 130-159 mg/dLHigh LDL: 160-189 mg/dLVery High LDL: greater than or equal to 190 mg/dL HDL Cholesterol 50 >40 mg/dL [facility] Comment:Desirable HDL: great er than 40 mg/dL Note: This HDL assay may give artificially low results in patients with liver disease. Blood Venous blood specimen / Unknown 11/15/2023 1:28 PM EDT 11/15/2023 4:04 PM EDT us Amna Urrutia TEAM MEMBER LAB BLOOD ORDERABLES Final Resu lt [facility] [address] [place] [phone] * HIV-1 RNA, Quantitative, Real-Time PCR with Reflex to Genotype (RTI, PI, Integrase) (01/06/2023 10:25 AM EDT) HIV 1 RNA, QN PCR NOT DETECTED copies/mL [facility], HIV 1 RNA, QN PCR NOT DETECTED Log copies/mL [facility], Comment: REFERENCE RANGE: NOT DETECTED copies/mL ?NOT DETECTED ??Log copies/mL This test was performed using Real-Time Polymerase Chain Reaction. Reportable range is 20 to 10,000,000 copies/mL (1.30-7.00 Log copies/mL). 01/06/2023 10:2 5 AM EDT 01/06/2023 10:26 AM EDT Narrative [facility] - 01/11/2023 1:53 AM EDT FASTING:NO SPECIMEN COLLECTED AT PROVIDER OFFICE. FASTING: NO Amna Urrutia TEAM MEMBER LAB BLOOD ORDERABLES Final Resu lt [facility] [address] [facility], [place] [address] [facility], [address] [place] [address] from Last 3 Months or Most Recently Relevant to Health Maintenance Insurance [facility] - [place] Care Teams Tree Trimming Supervisor Relationship Specialty Start Date End Date Name, MD Everett [address] [place] [phone] PCP - General Internal Medicine 04/19/24 Chris Pack Jr Reagent TenderDuct Maker 09/04/24
--- OUTSIDE RECORDS SUMMARY | 2024-09-13 15:55 | XMS_ITS | Encounter Summary ---
Author Organization [facility] Address [address] [place] [address] Phone Care Team Providers Care Sole Stainer Name Role Phone Santos Mueller MD Primary Care Provider [phone] Encounter Details Date Type Department Care Team (Late st Contact Info) Description 08/05/2024 Documentation Only [facility], [address] [place] [address] Jessica Sprague [address] [place] [address] Social History Tobacco Use Types [...] on filedocumented in this encounter Care Teams Sole Stainer Relationship Specialty Start Date End Date Santos Mueller MD [address] [place] [phone] PCP - General Emergency Medicine 07/28/23 documented as of this encounter
--- OUTSIDE RECORDS SUMMARY | 2024-09-13 15:55 | XMS_ITS | Encounter Summary ---
Author Organization [email or web address] Address [address] [facility] 7t [place] [address] Care Team Providers Care Tanning Drum Operator Name Role Phone Amna Urrutia Primary Care Provider [phone] Name, Everett ROSE Primary Care Provider [phone] Reason for Visit * Reason Onset Date Comments reaction to medication 10/24/2022 Encounter Details Date Type Department Care Team (Late st Contact Info) Description 10/24/2022 Telephone [facility] ADULT DENTAL [address] [place] [address] Marycruz Oseguera DDS [address] [place] [address] reaction to medication Social History Tobacco Use Types Packs/Day Years [...] encounter Miscellaneous Notes * Telephone Encounter - Rachna Chatman - 10/26/2022 10:42 AM EST Attempted to contact and phone is currently out of service. * Telephone Encounter - Marycruz Oseguera DDS - 10/25/2022 8:34 AM EST Please inform the pt that he has to stop the medication, I will be changing the antibiotic. Thanks Dr. Warner * Telephone Encounter - Rachna Compa - 10/24/2022 1:11 PM EST Patient called in stating that he started on the antibiotic but he states that from the moment he started taking them, every dose he gets queasy and throws up. Has abdominal pain under ribcage and would also experience hot flash with sweating for about 1 hr or 1.5 hours that would start almost immediately after taking antibiotic. Stopped taking on his own about 2 days ago. Still has abdominal discomfort but not as bad as when he would take them. documented in this encounter Plan of Treatment Upcoming Encounters Date Type Department Care Team (Late st Contact Info) Description 10/08/2024 10:15 AM EST Office Visit [facility] MEDICINE [address] [place] [address] NameEverett MD [address] [place] [address] documented as of this encounter Visit Diagnoses Not on filedocumented in this encounter Care Teams Tanning Drum Operator Relationship Specialty Start Date End Date Amna Urrutia FNP [address] [place] [address] PCP - General Family Medicine 01/01/23 04/18/24 NameEverett MD [address] [place] [address] PCP - General Internal Medicine 04/19/24 Chris Pack Jr Tavern Car AttendantExtension Worker 09/04/24 documented as of this encounter
--- OUTSIDE RECORDS SUMMARY | 2024-09-13 15:55 | XMS_ITS | Patient Health Record ---
Author Organization [facility] Address [address] [place] [address] Care Team Providers Care Car Packer Name Role Phone Resident, Channel Sales Director Primary Care Provider [phone] Libertad Porter Unavailable [phone] Allergies Allergen (clinical drug ingredient) Drug/Non Drug Allergy documented on EMR Reaction Allergy Type Onset Date Status haloperidol Haloperidol dystonic reaction Drug Allergy Active Reason For Referral No Information Medications Medication SIG (Take, Route, Frequency, Duration) Notes Start Date End Date Status Admelog 100 UNIT/ML as directed (1 Unit for every 15 grams of carbohydrates) Subcutaneous Three times a day for 30 days Active Basaglar KwikPen 100 UNIT/ML as directed Subcutaneous Act magdaleno Gabapentin 100 MG 1 capsule Orally Onc e a day for 30 day(s) TID Active Meloxicam 15 MG 1 tablet Orally Once a day for 30 day(s) 09/14/2021 Active Gabapentin 100 MG 1 capsule Orally thr ee times a day for 30 day(s) 09/14/2021 Active Famotidine 40 MG as directed Orally Active Ondansetron HCl 4 MG 1 tablet on the ton mirtha and allow to dissolve Orally Once a day for 30 day(s) q6h PRN Active Problems Problem Type SNOMED Code ICD Code Onset Dates Problem Status W/U Status Risk Notes Problem [id number] Type 1 diabetes mellitus without complication (E10.9) Active confirmed Problem [id number] 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 Plan Of Treatment Pending Test Test Name Order Date VENOUS BLOOD GAS 09/14/2021 BASIC METABOLIC PROFILE* 09/14/2021 Insurance Providers Payer Name Payer Address Payer Phone Subscriber Number Group Number Insured Name Patient Relationship to Insured Coverage Start Date Coverage End Date Blue Choice Option [address] [address] EKATERINA Camacho [address] [id number] Bradford Torres Self - patient is the insured 0 Medical (General) History Medical History History ICD Code T1DM diagnosed 18, taking ba saglar and admelog, last seen by endo 02/2020, many no shows, Barretts esophagus- EGD performed 10/2020 , repeat endoscopy due 2023 Depression as a child, intermittent rela brooke to life stressors at least 20 ED visits with 7 admissions for abdominal pain, n/v in 2020 GI- abd pain, RUQ US ordered, started Pa ntop 40, rec cutting cannabis
--- OUTSIDE RECORDS SUMMARY | 2024-09-13 15:55 | XMS_ITS | Encounter Summary ---
Author Organization [employer] Address [address] [facility] 7t [place] [address] Care Team Providers Care Manager Software Development Name Role Phone Amna Urrutia Primary Care Provider [phone] Everett Angulo MD Primary Care Provider [phone] Reason for Visit * Reason Onset Date Comments Med Refill 03/21/2023 Encounter Details Date Type Department Care Team (Late st Contact Info) Description 03/21/2023 Refill [facility] MEDICINE [address] [place] [address] Amna Urrutia FNP [address] [place], [place] [phone] Social History Tobacco Use Types Packs/Day Years Used Date Smoking Tobacco: Every Day Cigarettes 0.5 10 Passive Smoke Exposure: Current [...] Office Visit [facility] MEDICINE [address] [place] [address] Everett Angulo MD [address] [place] [address] documented as of this encounter Visit Diagnoses Not on filedocumented in this encounter Additional Health Concerns Assessment Noted Time PHQ-9 Depression Total Score: 7 01/07/20 23 9:10 AM EDT documented as of this encounter Care Teams Manager Software Development Relationship Specialty Start Date End Date Amna Urrutia FNP [address] [place] [address] PCP - General Family Medicine 01/01/23 04/18/24 Name, MD Everett [address] [place] [address] PCP - General Internal Medicine 04/19/24 Chris Pack Jr Coining Press OperatorHotel Services Sales Representative 09/04/24 documented as of this encounter
[2024-09-14 14:11] LABS: Adenovirus PCR Not Detected (Not Detect.); Bordetella parapertussis PCR Not Detected (Not Detect.); Bordetella pertussis PCR Not Detected (Not Detect.); Chlamydia pneumoniae PCR Not Detected (Not Detect.); Coronavirus 229E PCR Not Detected (Not Detect.); Coronavirus HKU1 PCR Not Detected (Not Detect.); Coronavirus NL63 PCR Not Detected (Not Detect.); Coronavirus OC43 PCR Not Detected (Not Detect.); Human metapneumovirus PCR Not Detected (Not Detect.); Influenza B PCR Not Detected (Not Detect.); Mycoplasma pneumoniae PCR Not Detected (Not Detect.); Parainfluenza 1 PCR Not Detected (Not Detect.); Parainfluenza 2 PCR Not Detected (Not Detect.); Parainfluenza 3 PCR Not Detected (Not Detect.); Parainfluenza 4 PCR Not Detected (Not Detect.); RSV PCR Not Detected (Not Detect.); Rhino/Enterovirus PCR Not Detected (Not Detect.)
[2024-09-14 15:22] LABS: Influenza A PCR Detected (Not Detect.); SARS-CoV-2 PCR Not Detected (Not Detect.)
== END 2024-09-13 14:13 | disposition home or self-care (01) ==
LOC: HO.HHCX 14:12
PROVIDERS: Visit Provider Family Medicine
DX: R06.2 Wheezing (principal); R05.8 Other specified cough
CPT/HCPCS: 71046; 87633

== ENCOUNTER → 2024-09-13 14:12 | Outpatient (BNV) | payer MEDICAID, SELFPAY | PROVIDERS: Visit Provider Radiology Diagnostic Radiology | DX: R05.9 Cough, unspecified (principal); R06.2 Wheezing | CPT/HCPCS: 71046 ==

== ENCOUNTER 2024-10-11 08:59 | Emergency (ER) | payer MEDICAID, SELFPAY ==
[2024-10-11 09:09] VITALS: BP 118/80; PULSE 92; O2SAT 100
--- OUTSIDE RECORDS SUMMARY | 2024-10-11 11:44 | XMS_ITS | Encounter Summary ---
Author Organization [facility] Address [address] [place] [address] Phone Care Team Providers Care Covering Machine Tender Name Role Phone Santos Mueller MD Primary Care Provider [phone] Encounter Details Date Type Department Care Team (Late st Contact Info) Description 08/05/2024 Documentation Only [facility], [address] [place] [address] Jessica Sprague [address] [place] [address] Social History Tobacco Use Types [...] on filedocumented in this encounter Care Teams Covering Machine Tender Relationship Specialty Start Date End Date Santos Mueller MD [address] [place] [address] PCP - General Emergency Medicine 07/28/23 documented as of this encounter
--- OUTSIDE RECORDS SUMMARY | 2024-10-11 11:44 | XMS_ITS | Encounter Summary ---
Author Organization [employer] Address [address] [facility] 7t [place] [address] Care Team Providers Care Coil Rewind Machine Operator Name Role Phone Amna Urrutia Primary Care Provider [phone] Adele, Everett ROSE Primary Care Provider [phone] Sahil Chen CNP Primary Care Provider [phone] Reason for Visit * Reason Onset Date Comments Med Refill 07/15/2023 Encounter Details Date Type Department Care Team (Late st Contact Info) Description 07/15/[address] [facility] MEDICINE [address] [place] [address] Sandra Leal MD [address] [place] [address] Social History Tobacco Use Types Packs/Day Years [...] Care Team (Late st Contact Info) Description 11/27/2024 2:45 PM EDT Office Visit [facility] MEDICINE [address] [place] [address] Sahil Chen CNP [address] [place] [address] documented as of this encounter Visit Diagnoses Not on filedocumented in this encounter Additional Health Concerns Assessment Noted Time PHQ-9 Depression Total Score: 16 023 8:52 AM EDT documented as of this encounter Care Teams Coil Rewind Machine Operator Relationship Specialty Start Date End Date Amna Urrutia FNP [address] [place] [address] PCP - General Family Medicine 01/01/23 04/18/24 Everett Angulo MD [address] [place] [address] PCP - General Internal Medicine 04/19/24 10/08/24 Sahil Chen CNP [address] [place] [address] PCP - General Family Medicine 10/09/24 Chris Pack Jr Dimensional Integration EngineerBridge/Structure Inspection Team Leader 09/04/24 documented as of this encounter
--- OUTSIDE RECORDS SUMMARY | 2024-10-11 11:44 | XMS_ITS | Encounter Summary ---
Author Organization [employer] Address 75 [facility] 7t [place] [address] Care Team Providers Care Campaign Coordinator Name Role Phone Name, Everett ROSE Primary Care Provider [phone] Sahil Chen CNP Primary Care Provider [phone] Reason for Visit * Reason Comments Med Refill Encounter Details Date Type Department Care Team (Late st Contact Info) Description 05/03/2024 Refill [facility] [address] [place], [place] [phone] Amna Urrutia FNP [address] [place], [place] [phone] Type 1 diabetes mellitus with hyperglycemia (CMS/HCC) [...] Description 11/27/2024 2:45 PM EDT Office Visit [facility] MEDICINE [address] [place] [address] Sahil Chen CNP [address] [place] [address] documented as of this encounter Visit Diagnoses Diagnosis Type 1 diabetes mellitus with hyperglycemia (CMS/HCC) documented in this encounter Additional Health Concerns Assessment Noted Time PHQ-9 Depression Total Score: 20 024 2:42 PM EDT documented as of this encounter Care Teams Campaign Coordinator Relationship Specialty Start Date End Date Name, MD Everett [address] [place] [address] PCP - General Internal Medicine 04/19/24 10/08/24 Sahil Chen CNP [address] [place], [place] [phone] PCP - General Family Medicine 10/09/24 Chris Pack Jr Hand PleaterDryer Feeder 09/04/24 documented as of this encounter
--- OUTSIDE RECORDS SUMMARY | 2024-10-11 11:44 | XMS_ITS | Encounter Summary ---
Author Organization [employer] Address 75 [facility] 7t [place] [address] Care Team Providers Care Motel Food Service Supervisor Name Role Phone Name, Everett ROSE Primary Care Provider [phone] Reason for Visit * Reason Comments Nasal Congestion Encounter Details Date Type Department Care Team (Late st Contact Info) Description 09/13/2024 2:00 PM EST Office Visit [facility]ALK[facility] C[facility] [address] [place], [place] [phone] Denice Rubin MD [address] [place], [place] [phone] Dry cough (Primary Dx); Wheeze Social History [...] reported that he has had a dry [place] cough for about 3-4 days. Cough when [...] Description 11/27/2024 2:45 PM EDT Office Visit [facility] MEDICINE [address] [place] [address] Sahil Chen, PHYSICAL AERODYNAMICIST [address] [place] [address] documented as of this encounter Procedures Procedure [...] 09/13/2024 2:06 PM EST Dry cough Wheeze RESPIRATORY VIRAL PANEL PCR Routine 09/13/2024 2:05 PM EST Dry cough documented in this encounter Results * XR Chest 2 Views (09/13/2024 2:12 PM EST) Anatomical Region Laterality Modality Chest Radiographic Sheri ging 09/13/2024 2:12 PM EST Narrative 09/13/2024 2:33 PM EST ?[facility] ?[address] ?[place] [address] ?XRay Report ? Signed ? Patient: Torres,Bradford J ?MR#: [id number] ?? [id number] ? : 1995 ?Acct:[id number] ? Age/Sex: 29 / M ?ADM Date: /24/25 ? Loc: HO.HHCX ? Attending Dr: Denice Rubin MD ? Ordering Physician: Denice Rubin MD ?? Date of Service: 09/13/24 ?? Procedure(s): XR chest 2V ?? Accession Number(s): [id number] ? cc: Denice Rubin MD ? EXAMINATION: [...] DD/ 1412 ? TD/TT: 09/13/24 1422 ? Linux Systems Analyst: ? Procedure Note Aamir Austin - 09/13/2024 [place] [address] XRay Report Signed Patient: Bradford Torres R#: [id number] : 1995Acct:[id number] Age/Sex: 29 / MADM Date: 09/13/24 Loc: HO.HHCX Attending Dr: Denice Rubin MD Ordering Physician: Denice Rubin MD Date of Service: 09/13/24 Procedure(s): XR chest 2V Accession Number(s): [id number] cc: Denice Rubin MD EXAMINATION: XR CHEST [...] 09/13/24 1429 DD/ 1412 TD/TT: 09/13/24 1422 Linux Systems Analyst: Denice Rubin MD IMG XR PROCEDURES Final Re sult * POCT COVID-19 Ag Goldman ID NOW (09/13/2024 2:06 PM EST) [facility] Coronavirus Antigen PCR Negative Negative, Indeterminate, None Detected, Invalid, Specimen unsatisfactory for evaluation, Weakly Positive Swab 09/13/2024 2:06 PM EST Denice Rubin MD POINT OF CARE TEST ENTER/E DIT ORDERABLES Final Result * Influenza A (ID NOW Rapid Molecular) (09/13/2024 2:06 PM EST) [facility] Influenza A Negative Negative, Indeterminate [facility] Swab 09/13/2024 2:06 PM EST Denice Rubin MD POINT OF CARE TEST ENTER/E DIT ORDERABLES Final Result [facility] [address] [place] [phone] * Influenza B (ID NOW Rapid Molecular) (09/13/2024 2:06 PM EST) [facility] Influenza B Negative Negative, Indeterminate [facility] Swab 09/13/2024 2:06 PM EST Denice Rubin MD POINT OF CARE TEST ENTER/E DIT ORDERABLES Final Result [facility] [address] [place] [address] [phone] * (ABNORMAL) Respiratory Viral Panel PCR (09/13/2024 2:05 PM EST) Adenovirus PCR Not Detected Not Detect. [facility] Bordetella pertussis PCR Not Detected Not Detect. [facility] Comment:Interpret results wi th caution. If B. pertussis isspecifically suspected, additional testing using analternate method is recommended. Bordetella parapertussis PCR Not Detected Not Detect. [facility] Chlamydia pneumoniae PCR Not Detected Not Detect. [facility] Coronavirus 229E PCR Not Detected Not Detect. [facility] Coronavirus HKU1 PCR Not Detected Not Detect. [facility] Coronavirus NL63 PCR Not Detected Not Detect. [facility] Coronavirus OC43 PCR Not Detected Not Detect. [facility] SARS-CoV-2 PCR Not Detected Not Detect. [facility] Comment:SARS-CoV-2 not detec brooke by real-time RT-PCR.Note: If clinical suspicion for Sars-CoV-2 is high, continueto maintain precautions and consider repeat testing.Test results should be interpreted in the context ofclinical findings and other laboratory data.Rare polymorphisms exist that could lead to false-negativeor false-positive results. If results do not match theclinical findings, additional testing should be considered.Results reported to [facility].This test has been authorized by the FDA under the EmergencyUse Authorization (EUA) for use by authorized laboratories. Influenza A PCR Detected(A) Not Detect. [facility] Influenza B PCR Not Detected Not Detect. [facility] Human metapneumovirus PCR Not Detected Not Detect. [facility] Rhino/Enterovirus PCR Not Detected Not Detect. [facility] Mycoplasma pneumoniae PCR Not Detected Not Detect. [facility] Parainfluenza 1 PCR Not Detected Not Detect. [facility] Parainfluenza 2 PCR Not Detected Not Detect. [facility] Parainfluenza 3 PCR Not Detected Not Detect. [facility] Parainfluenza 4 PCR Not Detected Not Detect. [facility] RSV PCR Not Detected Not Detect. [facility] Resp Panel NA Note See Note H [facility] Comment:All results must be correlated with clinical findings.Negative results should not be used as the sole basis fordiagnosis, treatment, or other management decisions.A negative result does not exclude the possibility of viralor bacterial infection. Negative results may occur from thepresence of sequence variants in the region targeted by theassay, the presence of inhibitors, an infection caused by anorganism not detected by the panel, or lower respiratorytract infections that are not detected by a nasopharyngealswab specimen. Test results may also be affected byconcurrent antiviral/antibacterial therapy or levels oforganism in the specimen that are below the limit ofdetection for this test.This assay is performed by Multiplexed PCR, utilizing EXFO Film Array. Swab 09/13/2024 2:05 PM EST 09/14/2024 8:41 AM EST us Denice Rubin MD LAB BLOOD ORDERABLES Final Result [facility] [address] [place] [address] [phone] documented in this encounter Visit Diagnoses [...] documented as of this encounter Care Teams Motel Food Service Supervisor Relationship Specialty Start Date End Date Name, MD Everett [address] [place] [address] PCP - General Internal Medicine 04/19/24 10/08/24 Chris Pack Jr BootmakerSecurity And Compliance Analyst 09/04/24 documented as of this encounter
--- OUTSIDE RECORDS SUMMARY | 2024-10-11 11:44 | XMS_ITS | Encounter Summary ---
Author Organization [employer] Address [address] [facility] 7t [place] [address] Care Team Providers Care Manager Stylist Name Role Phone Amna Urrutia Primary Care Provider [phone] Adele, Everett ROSE Primary Care Provider [phone] Sahil Chen CNP Primary Care Provider [phone] Reason for Visit * Reason Onset Date Comments Med Refill 05/30/2023 Encounter Details Date Type Department Care Team (Late st Contact Info) Description 05/30/2023 Refill [facility] MEDICINE [address] [place] [address] Amna Urrutia FNP [address] [place] [address] Social History Tobacco Use Types Packs/Day Years [...] Description 11/27/2024 2:45 PM EDT Office Visit [facility] MEDICINE [address] [place] [address] Sahil Chen CNP [address] [place] [address] documented as of this encounter Visit Diagnoses Not on filedocumented in this encounter Additional Health Concerns Assessment Noted Time PHQ-9 Depression Total Score: 16 023 8:52 AM EDT documented as of this encounter Care Teams Manager Stylist Relationship Specialty Start Date End Date Amna Urrutia FNP [address] [place] [address] PCP - General Family Medicine 01/01/23 04/18/24 Everett Angulo MD [address] [place] [address] PCP - General Internal Medicine 04/19/24 10/08/24 Sahil Chen CNP [address] [place] [address] PCP - General Family Medicine 10/09/24 Chris Pack Jr Legal Entity ControllerCellular Biologist 09/04/24 documented as of this encounter
--- OUTSIDE RECORDS SUMMARY | 2024-10-11 11:44 | XMS_ITS | Encounter Summary ---
Author Organization [employer] Address 75 [facility] 7t [place] [address] Care Team Providers Care E Learning Specialist Name Role Phone Amna Urrutia Primary Care Provider [phone] Adele, Everett ROSE Primary Care Provider [phone] Sahil Chen CNP Primary Care Provider [phone] Reason for Visit * Reason Onset Date Comments Nurse Triage 05/30/2023 Encounter Details Date Type Department Care Team (Late st Contact Info) Description 05/30/2023 Telephone [facility] MEDICINE [address] [place] [address] Amna Urrutia FNP [address] [place] [address] Nurse Triage Social History Tobacco Use Types [...] obtain discharge summary for patient seen at [facility] 05/29/23 following head injury at work. Scheduled for follow up below Future Appointments Date Time Provider Department Center 05/31/2023 11:30 AM Denice Rubin MD [facility] * Telephone Encounter - Marilne Vega RN - 05/30/2023 1:27 PM EDT Call to Bradford Torres, reports having been seen at [facility] 05/29 due to concussion that occurred [...] Center 05/31/2023 11:30 AM Denice Rubin MD [facility] Video visit offer not recorded Positive Triage [...] and states is still in pain ( telegraphic typewriter installer was un able to take all details information due to call hanging up ) . Patient advised will forward to triage nursefor follow up. documented in this encounter Plan of Treatment Upcoming Encounters Date Type Department Care Team (Late st Contact Info) Description 11/27/2024 2:45 PM EDT Office Visit [facility] MEDICINE [address] [place] [address] Sahil Chen CNP [address] [place] [address] documented as of this encounter Visit Diagnoses Not on filedocumented in this encounter Additional Health Concerns Assessment Noted Time PHQ-9 Depression Total Score: 16 023 8:52 AM EDT documented as of this encounter Care Teams E Learning Specialist Relationship Specialty Start Date End Date Amna Urrutia FNP [address] [place] [address] PCP - General Family Medicine 01/01/23 04/18/24 Name, MD Everett [address] [place] [phone] PCP - General Internal Medicine 04/19/24 10/08/24 Sahil Chen CNP [address] [place] [address] PCP - General Family Medicine 10/09/24 Chris Pack Jr PearlerNatural Resources Faculty Member 09/04/24 documented as of this encounter
--- OUTSIDE RECORDS SUMMARY | 2024-10-11 11:44 | XMS_ITS | Encounter Summary ---
Author Organization [employer] Address 75 [facility] 7t [place] [address] Care Team Providers Care Apricot Washer Name Role Phone Amna Urrutia Primary Care Provider [phone] Name, Everett ROSE Primary Care Provider [phone] Sahil Chen CNP Primary Care Provider [phone] Reason for Visit * Reason Onset Date Comments Med Refill 09/27/2023 Encounter Details Date Type Department Care Team (Late st Contact Info) Description 09/27/2023 Refill [facility] MEDICINE [address] [place] [address] Amna Urrutia FNP [address] [place] [address] Type 1 diabetes mellitus with hyperglycemia ([facility]) Social History Tobacco Use Types Packs/Day Years [...] Description 11/27/2024 2:45 PM EDT Office Visit [facility] MEDICINE [address] [place] [address] Sahil Chen CNP [address] [place] [address] documented as of this encounter Visit Diagnoses Diagnosis Type 1 diabetes mellitus with hyperglycemia (CMS/HCC) documented in this encounter Additional Health Concerns Assessment Noted Time PHQ-9 Depression Total Score: 16 023 8:52 AM EDT documented as of this encounter Care Teams Apricot Washer Relationship Specialty Start Date End Date Amna Urrutia FNP [address] [place] [address] PCP - General Family Medicine 01/01/23 04/18/24 Everett Angulo MD [address] [place] [address] PCP - General Internal Medicine 04/19/24 10/08/24 Sahil Chen CNP [address] [place] [address] [phone] PCP - General Family Medicine 10/09/24 Chris Pack Jr Director School For BlindMotion Graphics Designer 09/04/24 documented as of this encounter
--- OUTSIDE RECORDS SUMMARY | 2024-10-11 11:44 | XMS_ITS | Encounter Summary ---
Author Organization [employer] Address 75 [facility] 7t [place] [address] Care Team Providers Care Spiral Tube Winder Name Role Phone Amna Urrutia Primary Care Provider [phone] Adele, Everett ROSE Primary Care Provider [phone] Sahil Chen CNP Primary Care Provider [phone] Reason for Visit * Reason Comments Med Refill Encounter Details Date Type Department Care Team ([facility] st Contact Info) Description 10/04/2023 Refill [facility] MEDICINE [address] [place] [address] Amna Urrutia FNP [address] [place] [address] Type 1 diabetes mellitus with hyperglycemia ([facility]) Social History Tobacco Use Types [...] Miscellaneous Notes * Telephone Encounter - Sandra Ng - 10/05/2023 8:38 AM EST Tc from pt requesting a refill for promethazine (Phenergan) 25 MG tablet documented in this encounter Plan of Treatment Upcoming Encounters Date Type Department Care Team (Late st Contact Info) Description 11/27/2024 2:45 PM EDT Office Visit [facility] MEDICINE [address] [place] [address] Sahil Chen CNP [address] [place] [address] documented as of this encounter Visit Diagnoses Diagnosis Type 1 diabetes mellitus with hyperglycemia (CMS/HCC) documented in this encounter Additional Health Concerns Assessment Noted Time PHQ-9 Depression Total Score: 16 023 8:52 AM EDT documented as of this encounter Care Teams Spiral Tube Winder Relationship Specialty Start Date End Date Amna Urrutia FNP [address] [place] [address] PCP - General Family Medicine 01/01/23 04/18/24 Everett Angulo MD [address] [place] [address] PCP - General Internal Medicine 04/19/24 10/08/24 Sahil Chen CNP [address] [place] [address] PCP - General Family Medicine 10/09/24 Chris Pack Jr Rn Progressive Care UnitComputer Repair Engineer 09/04/24 documented as of this encounter
--- OUTSIDE RECORDS SUMMARY | 2024-10-11 11:44 | XMS_ITS | Encounter Summary ---
Author Organization [employer] Address 75 [facility] 7t [place] [address] Care Team Providers Care Business Analyst Project Manager Name Role Phone Amna Urrutia Primary Care Provider [phone] Adele, Everett ROSE Primary Care Provider [phone] Sahil Chen CNP Primary Care Provider [phone] Reason for Visit * Reason Onset Date Comments Appointment Request 09/08/2023 Encounter Details Date Type Department Care Team ([facility] st Contact Info) Description 09/08/2023 Telephone [facility] MEDICINE [address] [place] [address] Amna Urrutia FNP [address] [place] [address] Appointment Request Social History Tobacco Use Types [...] to reschedule missed appt on 09/06 however underwriter mortgage loan was not able to offer apptdue to the provider did not have any availably documented in this encounter Plan of Treatment Upcoming Encounters Date Type Department Care Team (Late st Contact Info) Description 11/27/2024 2:45 PM EDT Office Visit [facility] MEDICINE [address] [place], [place] [phone] Sahil Chen CNP [address] [place] [address] documented as of this encounter Visit Diagnoses Not on filedocumented in this encounter Additional Health Concerns Assessment Noted Time PHQ-9 Depression Total Score: 16 023 8:52 AM EDT documented as of this encounter Care Teams Business Analyst Project Manager Relationship Specialty Start Date End Date Amna Urrutia FNP [address] [place], [place] [phone] PCP - General Family Medicine 01/01/23 04/18/24 Everett Angulo MD [address] [place] [address] PCP - General Internal Medicine 04/19/24 10/08/24 Sahil Chen CNP [address] [place] [address] PCP - General Family Medicine 10/09/24 Chris Pack Jr Rn GastroenterologyMedical Support Specialist 09/04/24 documented as of this encounter
--- OUTSIDE RECORDS SUMMARY | 2024-10-11 11:44 | XMS_ITS | Encounter Summary ---
Author Organization [employer] Address 75 [facility] 7t [place] [address] Care Team Providers Care Tin Dipper Name Role Phone Amna Urrutia Primary Care Provider [phone] Adele, Everett ROSE Primary Care Provider [phone] Sahil Chen CNP Primary Care Provider [phone] Reason for Visit * Reason Comments Med Refill Encounter Details Date Type Department Care Team ([facility] st Contact Info) Description 08/29/2023 Refill [facility] MEDICINE [address] [place], [place] [phone] Carlos Alberto Villavicencio MD [address] [place], [place] [phone] Type 1 diabetes mellitus with hyperglycemia ([facility]) Social History Tobacco Use Types [...] Office Visit [facility] MEDICINE [address] [place] [address] Sahil Chen CNP [address] [place] [address] documented as of this encounter Visit Diagnoses Diagnosis Type 1 diabetes mellitus with hyperglycemia (CMS/[facility]) documented in this encounter Additional Health Concerns Assessment Noted Time PHQ-9 Depression Total Score: 16 023 8:52 AM EDT documented as of this encounter Care Teams Tin Dipper Relationship Specialty Start Date End Date Amna Urrutia FNP [address] [place] [address] PCP - General Family Medicine 01/01/23 04/18/24 Everett Angulo MD [address] [place] [address] PCP - General Internal Medicine 04/19/24 10/08/24 Sahil Chen CNP [address] [place] [address] PCP - General Family Medicine 10/09/24 Chris Pack Jr Tank CrewmemberTrade Union Secretary 09/04/24 documented as of this encounter
--- OUTSIDE RECORDS SUMMARY | 2024-10-11 11:44 | XMS_ITS | Encounter Summary ---
Author Organization [employer] Address 75 [facility] 7t [place] [address] Care Team Providers Care Regulatory Leader Name Role Phone Amna Urrutia Primary Care Provider [phone] Adele, Everett ROSE Primary Care Provider [phone] Sahil Chen CNP Primary Care Provider [phone] Reason for Visit * Reason Onset Date Comments Reschedule 02/14/2024 Encounter Details Date Type Department Care Team ([facility] st Contact Info) Description 02/14/2024 Telephone [facility] MEDICINE [address] [place] [address] Amna Urrutia FNP [address] [place] [address] Reschedule Social History Tobacco Use Types Packs/Day [...] to reschedule 02/13 follow up extended appointment. Indigo Mixer attempted to reschedule but no availability. Please contact pt at [phone] documented in this encounter Plan of Treatment Upcoming Encounters Date Type Department Care Team (Late st Contact Info) Description 11/27/2024 2:45 PM EDT Office Visit [facility] MEDICINE [address] [place] [address] Sahil Chen CNP [address] [place] [address] documented as of this encounter Visit Diagnoses Not on filedocumented in this encounter Additional Health Concerns Assessment Noted Time PHQ-9 Depression Total Score: 10 024 1:01 PM EDT documented as of this encounter Care Teams Regulatory Leader Relationship Specialty Start Date End Date Amna Urrutia FNP [address] [place] [address] PCP - General Family Medicine 01/01/23 04/18/24 Everett Angulo MD [address] [place], [place] [phone] PCP - General Internal Medicine 04/19/24 10/08/24 Sahil Chen CNP [address] [place], [place] [phone] PCP - General Family Medicine 10/09/24 Chris Pack Jr Crowning Hammer OperatorEar Specialist 09/04/24 documented as of this encounter
--- OUTSIDE RECORDS SUMMARY | 2024-10-11 11:44 | XMS_ITS | Encounter Summary ---
Author Organization [facility] Address [address] [place] [address] Phone Care Team Providers Care Department Operations Manager Name Role Phone Santos Mueller MD Primary Care Provider [phone] Encounter Details Date Type Department Care Team (Late st Contact Info) Description 07/28/2023 Documentation Only [facility], [address] [place] [address] Santos Mueller MD [address] [place] [address] Social History Tobacco Use Types [...] on filedocumented in this encounter Care Teams Department Operations Manager Relationship Specialty Start Date End Date Santos Mueller MD [address] [place] [address] PCP - General Emergency Medicine 07/28/23 documented as of this encounter
--- OUTSIDE RECORDS SUMMARY | 2024-10-11 11:44 | XMS_ITS | Encounter Summary ---
Author Organization [employer] Address 75 [facility] 7t [place] [address] Care Team Providers Care Licensed Tax Consultant Name Role Phone Amna Urrutia Primary Care Provider [phone] Name, Everett ROSE Primary Care Provider [phone] Sahil Chen CNP Primary Care Provider [phone] Reason for Visit * Reason Onset Date Comments Med Refill 07/17/2023 Encounter Details Date Type Department Care Team (Late st Contact Info) Description 07/17/2023 Refill [facility] MEDICINE [address] [place] [address] Amna Urrutia FNP [address] [place] [address] Social History Tobacco Use Types Packs/Day Years [...] Description 11/27/2024 2:45 PM EDT Office Visit [facility] MEDICINE [address] [place] [address] Sahil Chne CNP [address] [place] [address] documented as of this encounter Visit Diagnoses Not on filedocumented in this encounter Additional Health Concerns Assessment Noted Time PHQ-9 Depression Total Score: 16 023 8:52 AM EDT documented as of this encounter Care Teams Licensed Tax Consultant Relationship Specialty Start Date End Date Amna Urrutia FNP [address] [place] [address] PCP - General Family Medicine 01/01/23 04/18/24 Everett Angulo MD [address] [place] [address] PCP - General Internal Medicine 04/19/24 10/08/24 Sahil Chen CNP [address] [place] [address] PCP - General Family Medicine 10/09/24 Chris Pack Jr Contract ProgrammerPlug Saw Operator 09/04/24 documented as of this encounter
--- OUTSIDE RECORDS SUMMARY | 2024-10-11 11:44 | XMS_ITS | Clinical Summary ---
Author Organization [facility] it Address [address] [place] [address] Care Team Providers Care Job Training Supervisor Name Role Phone Unavailable Primary Care Provider Unavailabl e Social History Tobacco Use Types Packs/Day Years Used Date Smoking Tobacco: Never Assessed Sex and Gender Information Value Date Recorded Sex Assigned at Not on file Legal Sex Male 1:38 PM EDT Gender Identity Not on file Sexual Orientation Not on file Plan of Treatment Health Maintenance Due Date Last Done Comments DTaP,Tdap,and Td Vaccines (1 - Tdap) 02/07/2015 Hepatitis B Vaccines (1 of 3 - 19+ 3-dose series) 02/07/2015 Depression Screening 03/13/2024 HIV Screening 03/13/2024 Hepatitis C Screening 03/13/2024 Social Influencers of Health Screening 03/13/2024 COVID-19 Vaccine (1 - 2023-2 5 season) 2024 Influenza Vaccine [...] patient's age to complete this topic Meningococcal B Vacine Aged Out No lo nger eligible based on patient's age to complete [...]
--- OUTSIDE RECORDS SUMMARY | 2024-10-11 11:44 | XMS_ITS | Encounter Summary ---
Author Organization [employer] Address 75 [facility] 7t [place] [address] Care Team Providers Care Mail Handler Assistant Name Role Phone Name, Everett ROSE Primary Care Provider [phone] Reason for Visit * Reason Comments Med Refill Encounter Details Date Type Department Care Team (Late st Contact Info) Description 09/12/2024 Refill [facility] MEDICINE [address] [place], [place] [phone] Name, MD Everett [address] [place] [address] Social History Tobacco Use Types Packs/Day Years [...] Description 11/27/2024 2:45 PM EDT Office Visit [facility] MEDICINE [address] [place], [place] [phone] Sahil Chen CNP [address] [place], [place] [phone] documented as of this encounter Visit Diagnoses Not on filedocumented in this encounter Additional Health Concerns Assessment Noted Time PHQ-9 Depression Total Score: 20 024 2:42 PM EDT documented as of this encounter Care Teams Mail Handler Assistant Relationship Specialty Start Date End Date Name, MD Everett [address] [place], [place] [phone] PCP - General Internal Medicine 04/19/24 10/08/24 Chris Pack Jr Point Of Sale AssociateDirector Cardiology 09/04/24 documented as of this encounter
--- OUTSIDE RECORDS SUMMARY | 2024-10-11 11:44 | XMS_ITS | Clinical Summary ---
Author Organization [employer] Address [address] [facility] [address] [place] [address] Care Team Providers Care Tow Truck Dispatcher Name Role Phone Sahil Chen PHYSICAL THERAPIST ASSISTANT Primary Care Provider [phone] Allergies Active Allergy Reactions Criticality Noted Date Comments Diphenhydramine Other 10/18/2022 Weakness, tiredness Haloperidol Shortness of breath High 10/18/2022 Jaw locks up and has tremors Metoclopramide 08/02/2024 Medications * This document contains information received from the source organization and may not represent a complete record from that organization. Continuous Blood Gluc Wireless Manager (FreeStyle Shiraz 2 [place]) deviceIndication s:Type 1 diabetes mellitus with hyperglycemia (CMS/HCC) Use with sensor to monitor blood glucose levels 1 each 023 Active Acetaminophen Extra Strength 500 MG tablet Active Blood Glucose Monitoring Suppl (FreeStyle [place] Lite) w/Device kit Active glucose blood (FREESTYLE LITE) test strip Use bid. Dx diabetes 60 each Active FREESTYLE LITE test strip Check sugar 3 times daily and prn 100 each 3 Active FreeStyle lancets 1 each by Other route 3 times daily. Use bid, dx type 2 diabetes 60 each 024 Active glucose 4 g chewable tablet CHEW 4 TABLETS IF NEEDED FOR LOW BLOOD SUGAR 50 tablet 2 024 Active insulin pen needle (BD Pen Needle [...] miscIndications: Type 1 diabetes mellitus with hyperglycemia ([facility]) Use to monitor blood sugar level - change sensor every 14 days or per package directions. 2 each 3 Active Baqsimi Two Pack 3 MG/DOSE nasal powder USE 1 SPRAY (3MG) IN ONE NOSTRIL FOR A PATIENT WITH SEVERE HYPOGLYCEMIA WHO IS NOT RESPONSIVE AND UNABLE SELF-TREAT WITH GLUCOSE. AFTERWARDS TURN ON SIDE. MAY REPEAT IN 15MINUTES IF PATIENT DOES NOT RESPOND. Active levoFLOXacin (Levaquin) 500 MG tablet Take 1 tablet by mouth Once per day. Active insulin aspart FlexPen (NovoLOG) 100 UNIT/ML pen INJECT UP TO 10 UNITS SUBCUTANEOUSLY THREE TIMES DAILY WITH MEALS. USE 1 UNIT FOR EVERY 35 UNITS above 135 15 mL Active albuterol 108 (90 Base) MCG/ACT inhaler Inhale 2 puffs every 6 (six) hours if needed for wheezing. 18 g 025 2025 Active promethazine (Phenergan) 25 MG tabletIndication s:Type 1 diabetes mellitus with hyperglycemia ([facility]) TAKE 1 TABLET BY MOUTH THREE TIMES DAILY NEEDED FOR NAUSEA AND VOMITING 15 tablet Active famotidine (Pepcid) 20 MG tabletIndication s:Gastroesophage al reflux disease without esophagitis TAKE 1 TABLET BY MOUTH DAILY AT BEDTIME 90 tablet Active Tresiba FlexTouch 200 UNIT/ML injectionIndicat ions:Type 1 diabetes mellitus with hyperglycemia ([facility]) Inject 20 Units under the skin in the morning. 3 mL 3 025 2024 Active albuterol 108 (90 Base) MCG/ACT inhaler Inhale 2 puffs every 6 (six) hours if needed for wheezing. 18 g 024 2024 Discontinued(R eorder (will not trigger notification to Pharmacy)) insulin aspart FlexPen (NovoLOG) 100 UNIT/ML pen INJECT UP TO 10 UNITS SUBCUTANEOUSLY THREE TIMES DAILY WITH MEALS, USE 1 unit OF INSULIN FOR EVERY 35 UNITS above 135 15 mL 024 2024 Discontinued promethazine (Phenergan) 25 MG tabletIndication s:Type 1 diabetes mellitus with hyperglycemia ([facility]) TAKE 1 TABLET BY MOUTH THREE TIMES DAILY NEEDED FOR NAUSEA AND VOMITING 15 tablet 1 024 2024 Discontinued(R eorder (will not trigger notification to Pharmacy)) Tresiba FlexTouch 200 UNIT/ML injection INJECT 20 UNITS SUBCUTANEOUSLY ONCE DAILY 024 2024 Discontinued(R eorder (will not trigger notification to Pharmacy)) famotidine (Pepcid) 20 MG tabletIndication s:Gastroesophage al reflux disease without esophagitis TAKE 1 TABLET BY MOUTH DAILY AT BEDTIME 30 tablet 2 024 2024 Discontinued(R eorder (will not trigger notification to Pharmacy)) celecoxib (CeleBREX) 200 MG capsule Take 1 capsule (200 mg) by mouth 2 times daily for 20 days. 40 capsule 025 2024 Hospital, Clinic, or Other Facility Administered Medication [...] care ?? PLAN: 1. Follow up with [facility]: Recommended for follow-up: TBD 2. Patient goal is stabilization of symptoms. 3. Behavioral Recommendations a. Patient was sectioned and taken to [facility] via ambulance Head injury 05/31/2023 Overview (05/31/2023): [...] MH services. PLAN: 1. Follow up with [facility]: Not recommended for follow-up 2. Patient goal [...] referred for outpt tx -pt to f kash PCP DKA (diabetic ketoacidosis) 04/14/2023 Assessment & [...] to schedule apt ---I discussed today w contracting support specialist and request to try to [...] f up until can start care w emergency medicine nurse practitioner Type 1 diabetes mellitus without complication Assessment & Plan (03/21/2024 3:41 PM EDT): Has apt w Senior Web Analyst next week to start care Assessment & [...] EDT): ?? Reports diagnosed approx 2018 in [place] ?? Referral to establish with GI provider [...] organization. Date Type Department Care Team Description 10/09/2024 Telephone [facility] [address] [place] [phone] Shivani Lopez RN 10/09/2024 Orders Only [facility] [address] [place] [address] Sahil Chen CNP Type 1 diabetes mellitus with hyperglycemia ([facility]) (Primary Dx) 10/08/2024 Refill [facility] [address] [place] [address] Everett Angulo MD Gastroesophageal reflux disease without esophagitis 10/08/2024 Refill [facility] [address] [place] [address] Everett Angulo MD Type 1 diabetes mellitus with hyperglycemia ([facility]) 09/30/2024 Patient Outreach [facility] [address] [place] [address] Everett Angulo MD Pre-visit Planning (SDOH unable to complete, patient working. ) 09/16/2024 Telephone [facility] [address] [place] [phone] Gertrude Tyler, RN Results 09/13/2024 2:00 PM EST Office Visit [facility] [address] [place] [phone] Denice Rubin MD Dry cough (Primary Dx); Wheeze 09/12/2024 Telephone [facility] [address] [place] [address] Everett Angulo MD Nurse Triage 09/12/2024 Refill [facility] [address] [place] [address] Everett Angulo MD 09/10/2024 Telephone [facility] [address] [place] [address] Everett Angulo MD Medication Question 09/10/2024 Patient Outreach [facility] [address] [place] [phone] Everett Angulo MD Transition Of Care (Tcm) 09/09/2024 Orders Only GENERIC EXTERNAL DATA DEPARTMENT Provider, Generic External Data 09/04/2024 Telephone [facility] [address] [place] [phone] Everett Angulo MD Care Coordination (BHCP Care Plan) 09/01/2024 Orders Only GENERIC EXTERNAL DATA DEPARTMENT Provider, Generic External Data 08/07/2024 Orders Only [facility] External Provider, [facility] 08/05/2024 Refill [facility] [address] [place] [address] Lindsey Cuellar NP Gastroesophageal reflux disease without esophagitis 08/05/2024 Orders Only GENERIC EXTERNAL DATA DEPARTMENT Provider, Generic External Data 08/02/2024 2:00 PM EST Office Visit [address] [address] Everett Angulo MD Epididymo-orchitis, acute (Primary Dx); Type 1 diabetes mellitus with hyperglycemia ([facility]); Major depressive disorder, recurrent episode with anxious distress ([facility]/HCC) 08/02/2024 Travel 08/02/[address] [address] Fabiola Brasher RN 08/01/2024 Orders Only GENERIC EXTERNAL DATA DEPARTMENT Provider, [facility] External Data 07/31/2024 9:20 AM EST Office Visit [facility] [address] [address] Lindsey Cuellar NP Upper abdominal pain (Primary Dx); Elevated glucose; Epigastric pain; Pain in both testicles 07/31/2024 Orders Only GENERIC EXTERNAL DATA DEPARTMENT Provider, [facility] External Data 07/31/2024 Refill [facility] [address] [place] [address] Everett Angulo MD Type 1 diabetes mellitus with hyperglycemia ([facility]/HCC) 07/26/2024 Telephone [facility] [address] [place] [phone] Breanna Ireland, RUSTY Results (Xray result: normal) 07/17/2024 Travel 07/16/[address] [address] Everett Angulo MD Nurse Triage 07/15/2024 10:45 AM EST Office Visit [facility] [address] [place] [phone] Alverto, Natasha, OD Myopia of both eyes (Primary Dx) from Last 3 Months Immunizations Name Administration [...] Description 11/27/2024 2:45 PM EDT Office Visit [facility] [address] [place] [address] [phone] Sahil Chen, [facility] [address] [place], [place] [phone] Health Maintenance Due Date Last Done Comments Dental Oral Exam 1996 Dental Prophylaxis 1996 Dental X-Ray: Full Mouth 1996 Diabetes: Foot Exam 02/07/2006 Alcohol/Substance Use Screening 2008 Family Planning (PISQ) 02/07/2011 Diabetes: Urine Protein Screening 02/07/2015 Hepatitis A Vaccines (1 of 2 - Risk 2-dose series) 02/07/2015 Hepatitis B Vaccines (1 of 3 - 19+ 3-dose series) 02/07/2015 Pneumococcal Vaccine: Pediatrics (0 to 5 Years) and At-Risk Patients (6 to 49) Years) (1 of 2 - PCV) 02/07/2015 Dental X-Ray: Bitewings 10/19/2023 10/18/2022 COVID-19 [...] Routine 09/13/2024 2:05 PM EST Dry cough US SCROTUM DOPPLER Routine 09/09/2024 10 :19 [...] WO CONTRAST Routine 07/16/2024 11:01 AM EST POCT GLYCATED HEMOGLOBIN, TOTAL Routine 02/26/2024 3:39 [...] PM EST Narrative 09/13/2024 2:33 PM EST ?[facility] ?[address] ?[place] [address] ?XRay Report ? Signed ? Patient: Torres,Bradford J ?MR#: [id number] ?? [id number] ? : 1995 ?Acct:[id number] ? Age/Sex: 29 / M ?ADM Date: 09/13/24 ? Loc: HO.HHCX ? Attending Dr: Denice Rubin MD ? Ordering Physician: Denice Rubin MD ?? Date of Service: 09/13/24 ?? Procedure(s): XR chest 2V ?? Accession Number(s): [id number] ? cc: Denice Rubin MD ? EXAMINATION: [...] cardiopulmonary abnormality. ? Electronically signed by: ??August lCark MD ??09/13/2024 02:29 PM EST ?? RP ? Dictated By: ?August Clark MD ? Signed By: ?<Electronically signed by August Clark MD in OV> ?09/13/24 1429 ? DD/ 1412 ? TD/TT: 09/13/241421 ? Professor Of Engineering: ? Procedure Note Aamir Austin - 09/13/[address] [address] XRay Report Signed Patient: Bradford Torres JMR#: [id number] : 1995Acct:[id number] Age/Sex: 29 / MADM Date: 09/13/24 Loc: HO.HHCX Attending Dr: Denice Rubin MD Ordering Physician: Denice Rubin MD Date of Service: 09/13/24 Procedure(s): XR chest 2V Accession Number(s): [id number] cc: Denice Rubin MD EXAMINATION: XR CHEST [...] 09/13/24 1429 DD/ 1412 TD/TT: 09/13/24 1422 Professor Of Engineering: Denice Rubin MD IMG XR PROCEDURES Final Re sult * Influenza B (ID NOW Rapid Molecular) (09/13/2024 2:06 PM EST) Influenza B Negative Negative, Indeterminate [facility] Swab 09/13/2024 2:06 PM EST Denice Rubin MD POINT OF CARE TEST ENTER/E DIT ORDERABLES Final Result Performing Organization Address [facility] de Phone Number [facility] [address] [place] [phone] * Influenza A (ID NOW Rapid Molecular) (09/13/2024 2:06 PM EST) Influenza A Negative Negative, Indeterminate [facility] Swab 09/13/2024 2:06 PM EST Denice Rubin MD POINT OF CARE TEST ENTER/E DIT ORDERABLES Final Result Performing Organization Address [facility] Co de Phone Number [facility] [address] [place] [phone] * POCT COVID-19 Ag Goldman ID NOW (09/13/2024 2:06 PM EST) Pathologist [facility] Coronavirus Antigen PCR Negative Negative, Indeterminate, None Detected, Invalid, Specimen unsatisfactory for evaluation, Weakly Positive Swab 09/13/2024 2:06 PM EST Denice Rubin MD POINT OF CARE TEST ENTER/E DIT ORDERABLES Final Result * (ABNORMAL) Respiratory Viral Panel PCR (09/13/2024 2:05 PM EST) [facility] Adenovirus PCR Not Detected Not Detect. [facility] Bordetella pertussis PCR Not Detected Not Detect. [facility] Comment:Interpret results wi th caution. If B. pertussis isspecifically suspected, additional testing using analternate method is recommended. Bordetella parapertussis PCR Not Detected Not Detect. [facility] Chlamydia pneumoniae PCR Not Detected Not Detect. [facility] Coronavirus 229E PCR Not Detected Not Detect. [facility] Coronavirus HKU1 PCR Not Detected Not Detect. [facility] Coronavirus NL63 PCR Not Detected Not Detect. [facility] Coronavirus OC43 PCR Not Detected Not Detect. [facility] SARS-CoV-2 PCR Not Detected Not Detect. [facility] Comment:SARS-CoV-2 not detec brooke by real-time RT-PCR.Note: If clinical suspicion for Sars-CoV-2 is high, continueto maintain precautions and consider repeat testing.Test results should be interpreted in the context ofclinical findings and other laboratory data.Rare polymorphisms exist that could lead to false-negativeor false-positive results. If results do not match theclinical findings, additional testing should be considered.Results reported to [facility].This test has been authorized by the FDA under the EmergencyUse Authorization (EUA) for use by authorized laboratories. Influenza A PCR Detected(A) Not Detect. [facility] Influenza B PCR Not Detected Not Detect. [facility] Human metapneumovirus PCR Not Detected Not Detect. [facility] Rhino/Enterovirus PCR Not Detected Not Detect. [facility] Mycoplasma pneumoniae PCR Not Detected Not Detect. [facility] Parainfluenza 1 PCR Not Detected Not Detect. [facility] Parainfluenza 2 PCR Not Detected Not Detect. [facility] Parainfluenza 3 PCR Not Detected Not Detect. [facility] Parainfluenza 4 PCR Not Detected Not Detect. [facility] RSV PCR Not Detected Not Detect. [facility] Resp Panel NA Note See Note [facility] Comment:All results must be correlated with [...] assay is performed by Multiplexed PCR, utilizing [employer] Film Array. Swab 09/13/2024 2:05 PM EST 09/14/2024 8:41 AM EST us Denice Rubin MD LAB BLOOD ORDERABLES Final Result [facility] [address] [place] [phone] * US SCROTUM DOPPLER (09/09/2024 10:19 PM EST) Only the most recent of4 resultswithin the time period is included. Anatomical Region Laterality Modality Abdomen Ultrasound 09/09/2024 10:1 9 PM EST Narrative 09/10/2024 8:26 AM EST ? [facility] ?[address] ?[place] [address] ? Ultrasound Report ? Signed ? Patient: Torres,Bradford J ?MR#: [id number] ?? [id number] ? : 1995 ?Acct:[id number] ? Age/Sex: 29 / M ?ADM Date: 01/20/25 ? Loc: HO.ED ? Attending Dr: ? Ordering Physician: Sedrick Grady MD ?? Date of Service: 09/09/24 ?? Procedure(s): US scrotum doppler ?? Accession Number(s): [id number] ? cc: Adele,Everett ROSE; Sedrick Grday MD ? CLINICAL HISTORY: testicular pain , no swelling ? US Scrotum with Doppler ? Comparison: US/SD/SR - US SCROTUM - 08/01/24 23:48 EST [...] by Sebastian Graham MD in OV> ?09/10/24 08 ? DD/ 18 ? TD/TT: 09/09/242218 ? Professor Of Engineering: ? Procedure Note Geovanna, Aamir - 09/10/[address] [address] Ultrasound Report Signed Patient: Bradford Torres R#: [id number] : 1995Acct:[id number] Age/Sex: 29 / MADM Date: 09/09/24 Loc: HO.ED Attending Dr: Ordering Physician: Sedrick Grady MD Date of Service: 09/09/24 Procedure(s): US scrotum doppler Accession Number(s): [id number] cc: Everett Angulo MD; Sedrick Grady MD CLINICAL HISTORY: testicular pain , no swelling US Scrotum with Doppler Comparison: US/SD/SR - US SCROTUM - 08/01/24 23:48 EST [...] OV> 09/10/24 0826 DD/ 18 TD/TT: 09/09/242218 Professor Of Engineering: [facility] External Provider IMG US PROCEDURES Edited Result - Final * US Scrotum (09/09/2024 10:19 PM EST) Only the most recent of4 resultswithin the time period is included. Anatomical Region Laterality Modality Body Ultrasound 09/09/2024 10:1 9 PM EST Narrative 09/09/2024 10:21 PM EST ? [facility] ?[address] ?[place] [address] ? Ultrasound Report ? Signed ? Patient: Brian,Bradford J ?MR#: [id number] ?? [id number] ? : 1995 ?Acct:[id number] ? Age/Sex: 29 / M ?ADM Date: 01/20/25 ? Loc: HO.ED ? Attending Dr: ? Ordering Physician: Sedrick Grady MD ?? Date of Service: 09/09/24 ?? Procedure(s): US scrotum ?? Accession Number(s): [id number] ? cc: Name,Everett ROSE; Sedrick Grday MD ? CLINICAL HISTORY: testicular pain , no swelling ? US Scrotum with Doppler ? Comparison: US/SD/SR - US SCROTUM - 08/01/24 23:48 EST [...] ? DD/ 18 ? TD/TT: 09/09/242218 ? Professor Of Engineering: ? Procedure Note Geovanna, Image - 09/09/2024 [place] [address] Ultrasound Report Signed Patient: Bradford Torres JMR#: [id number] : 1995Acct:[id number] Age/Sex: 29 / MADM Date: 09/09/24 Loc: HO.ED Attending Dr: Ordering Physician: Sedrick Grady MD Date of Service: 09/09/24 Procedure(s): US scrotum Accession Number(s): [id number] cc: Everett Angulo MD; Sedrick Grady MD CLINICAL HISTORY: testicular pain , no swelling US Scrotum with Doppler Comparison: US/SD/SR - US SCROTUM - 08/01/24 23:48 EST [...] in OV> 09/09/242220 DD/ 18 TD/TT: 09/09/242218 Professor Of Engineering: [facility] External Provider IMG US PROCEDURES Final Result * Lactic Acid (09/09/2024 8:47 PM EST) Lactic Acid 0.8 0.5 - 2.0 mmol/L [facility] 09/09/2024 8:47 PM EST 09/09/2024 8:53 PM EST Narrative [facility] - 09/09/2024 9:09 PM EST NOT ON ICE Generic External Data Provider LAB BLOOD ORDERAB LES Final Result [facility] [address] [place] [address] [phone] * (ABNORMAL) CBC auto differential (09/09/2024 8:17 PM EST) Only the most recent of4 resultswithin the time period is included. White Blood Count 7.7 4.8 - 10.8 X10*3/uL [facility] Red Blood Count 4.72 4.60 - 5.80 X10*6/uL [facility] Hemoglobin 12.4(L) 14.0 - 18.0 g/dl [facility] Hematocrit 36.7(L) 42.0 - 52.0 % [facility] Mean Corpuscular Volume 77.8(L) 80.0 - 98.0 fL [facility] Mean Corpuscular Hemoglobin 26.3(L) 27.0 - 33.0 pg [facility] Mean Corpuscular HGB Conc 33.8 31.0 - 36.0 g/dl [facility] Red Cell Distribution Width 13.9 11.0 - 16.0 % [facility] Platelet Count 236 160 - 400 X10*3/uL [facility] Mean Platelet Volume 9.4 9.4 - 12.4 fL [facility] Neutrophils Percent Auto 71.7 45 - 73 % [facility] Imm Gran Pct Auto 0.1 0.0 - 0.4 % [facility] Lymphocytes Percent Auto 15.8(L) 20 - 40 % [facility] Monocytes Percent Auto 10.3 2 - 11 % [facility] Eosinophils Percent Auto 1.6 0 - 4 % [facility] Basophils Percent Auto 0.5 0 - 2 % [facility] NRBC Pct Auto 0.0 0.0 - 0.2 /100WBC [facility] Neutrophils Absolute Auto 5.5 2.0 - 8.3 x10*3/uL [facility] Imm Gran Abs Auto 0.01 0.00 - 0.03 X10*3/uL [facility] Lymphocytes Absolute Auto 1.2 1.2 - 4.9 X10*3/uL [facility] Monocytes Absolute Auto 0.8 0.1 - 1.2 X10*3/uL [facility] Eosinophils Absolute Auto 0.1 0.0 - 0.4 X10*3/uL [facility] Basophils Absolute Auto 0.0 0.0 - 0.2 X10*3/uL [facility] NRBC Abs Auto 0.000 0.0 - 0.012 X10*3/uL [facility] 09/09/2024 8:17 PM EST 09/09/2024 8:19 PM EST us Generic External Data Provider LAB BLOOD ORDERAB LES Final Result [facility] [address] [place] [phone] * (ABNORMAL) Comprehensive Metabolic Panel (09/09/2024 8:17 PM EST) Only the most recent of2 resultswithin the time period is included. Sodium 136 135 - 145 mmol/L [facility] Potassium 3.9 3.3 - 5.1 mmol/L [facility] Chloride 104 96 - 108 mmol/L [facility] Carbon Dioxide 21(L) 22 - 29 mmol/L [facility] Anion Gap 15 12 - 20 [facility] Urea Nitrogen (BUN) 15 9 - 16 mg/dL [facility] Creatinine, Serum 0.60 0.5 - 1.4 mg/dL [facility] Creatinine Clr Calc Pharmacy 178.3 [facility] Comment:eGFR (calculated fro m the MDRD study equation) and eCrCl(calculated from the Cockcroft-Gault equation) are based ondifferent parameters and may not yield comparable results.If eCrCl result is absurd, please check patient'sheight/weight. Estimated Glomerular Filt Rate >60 [facility] Comment:Chronic Kidney Disea se: Estimated GFR < 60 mL/min/[id number] Kidney Disease: Estimated GFR < 15 mL/min/1.73m2 Glucose 112 60 - 115 mg/dL [facility] Calcium 8.6 8.4 - 10.2 mg/dL [facility] Bilirubin, Total 0.4 0.0 - 1.0 mg/dL [facility] Aspartate Amino Transferase 18 5 - 37 U/L [facility] Alanine Aminotransferase 12 0 - 40 U/L [facility] Total Protein 7.4 6.5 - 8.0 g/dL [facility] Albumin Level 4.2 3.5 - 5.0 g/dL [facility] Alkaline Phosphatase 64 39 - 117 U/L [facility] 09/09/2024 8:17 PM EST 09/09/2024 8:19 PM EST us Generic External Data Provider LAB BLOOD ORDERAB LES Final Result Performing Organization Address [facility] de Phone Number [facility] [address] [place] [phone] * Urinalysis w/reflex microscopic (09/09/2024 6:42 PM EST) Color Urine Yellow [facility] Appearance Urine Clear [facility] PH >=9.0 5.0 - 9.0 [facility] Glucose Urine UA Negative Negative mg/dL [facility] Urine Blood Negative Negative [facility] Specific [facility] - Urine 1.025 1.005 - 1.025 [facility] Urine Protein Negative Neg-Trace mg/dL [facility] Urine Ketones 15 Negative mg/dL [facility] Nitrite Urine Negative Negative [facility] Leukocyte Esterase Urine Negative Negative [facility] 09/09/2024 6:42 PM EST 09/09/2024 6:44 PM EST Narrative [facility] - 09/09/2024 6:59 PM EST Urine, Clean Catch us Generic External Data Provider LAB URINE ORDERAB LES Final Result Performing Organization Address [facility] [address] [place] [phone] * (ABNORMAL) Glucose, Whole Blood (09/01/2024 6:08 PM EST) Only the most recent of5 resultswithin the time period is included. Glucose, Whole Blood 151(H) 60 - 115 mg/dL [facility] Comment:METER #: [id number] 09/01/2024 6:08 PM EST 09/01/2024 6:15 PM EST us Generic External Data Provider LAB BLOOD ORDERAB LES Final Result Performing Organization Address [facility]/ZIP Co de Phone Number [facility] [address] [place] [phone] * CT Abdomen Pelvis w/ Contrast (09/01/2024 10:50 AM EST) Anatomical Region Laterality Modality Body, Pelvis, Abdomen Computed T omography 09/01/2024 10:5 0 AM EST Narrative 09/01/2024 6:48 PM EST ? [facility] ?[address] ?[place] [address] ? CT Scan Report ? Signed ? Patient: Bradford Torres ?MR#: [id number] ?? [id number] ? : 1995 ?Acct:[id number] ? Age/Sex: 29 / M ?ADM Date: 09/01/24 ? Loc: HO.ED ? Attending Dr: ? Ordering Physician: Ulises Dejesus MD ?? Date of Service: 09/01/24 ?? Procedure(s): CT abdomen pelvis w IV con ?? Accession Number(s): [id number] ? cc: Ulises Dejesus MD; [facility] ? Report Number: ?? [id number]: Total DLP = ??378.00 mGy-cm ? CLINICAL [...] DD/ 1050 ? TD/TT: 09/01/24 1050 ? Professor Of Engineering: ? Procedure Note Aamir Austin - 09/01/2024 [id number] [place] [address] CT Scan Report Signed Patient: Bradford Torres JMR#: [id number] : 1995Acct:[id number] Age/Sex: 29 / MADM Date: 09/01/24 Loc: HO.ED Attending Dr: Ordering Physician: Ulises Dejesus MD Date of Service: 09/01/24 Procedure(s): CT abdomen pelvis w IV con Accession Number(s): [id number] cc: Ulises Dejesus MD; [facility] Report Number: [id number]: Total DLP = 378.00 mGy-cm CLINICAL HISTORY: [...] 09/01/24 1849 DD/ 1050 TD/TT: 09/01/24 1050 Professor Of Engineering: [facility] External Provider IMG CT PROCEDURES Edited Result - Final * (ABNORMAL) Beta-Hydroxybutyrate (09/01/2024 9:30 AM EST) Only the most recent of2 resultswithin the time period is included. Beta-Hydroxybu tyrate 1.28(H) 0.02 - 0.27 mmol/L [facility] 09/01/2024 9:30 AM EST 09/01/2024 9:34 AM EST [facility] External Data Provider LAB BLOOD ORDERAB LES Final Result [facility] [address] [place] [phone] * C-reactive Protein (09/01/2024 9:30 AM EST) C Reactive Protein <0.10 < or = 0.50 mg/dL [facility] 09/01/2024 9:30 AM EST 09/01/2024 9:34 AM EST us Generic External Data Provider LAB BLOOD ORDERAB LES Final Result [facility] [address] [place] [address] [phone] * XR Knee 1-2 Views Left (08/07/2024 5:27 AM EST) Anatomical Region Laterality Modality Lower Extremities, Knee Left Radiogra phic Imaging 08/07/2024 5:27 AM EST Narrative 08/07/2024 9:13 AM EST ? [facility] ?[address] ?[place] [address] ?XRay Report ? Signed ? Patient: Bradford Torres ?MR#: [id number] ?? [id number] ? : 1995 ?Acct:[id number] ? Age/Sex: 29 / M ?ADM Date: 08/07/24 ? Loc: HO.ED ? Attending Dr: ? Ordering Physician: Sedrick Grady MD ?? Date of Service: 08/07/24 ?? Procedure(s): XR knee LT 2V ?? Accession Number(s): [id number] ? cc: Everett Angulo MD; Sedrick Grady [...] DD/ 0527 ? TD/TT: 08/07/24 0532 ? Professor Of Engineering: ? Procedure Note Donotuseinterpreter, Image - 08/07/[address] [address] XRay Report Signed Patient: Bradford Torres JMR#: [id number] : 1995Acct:[id number] Age/Sex: 29 / MADM Date: 08/07/24 Loc: HO.ED Attending Dr: Ordering Physician: Sedrick Grady MD Date of Service: 08/07/24 Procedure(s): XR knee LT 2V Accession Number(s): [id number] cc: Name,Everett ROSE; Sedrick Grady MD EXAMINATION: [...] 08/07/24 0910 DD/ 0527 TD/TT: 08/07/24 0532 Professor Of Engineering: [facility] External Provider IMG XR PROCEDURES Edited Result - Final * (ABNORMAL) Urinalysis, Complete, with Reflex to Culture (08/05/2024 2:20 AM EST) Only the most recent of2 resultswithin the time period is included. Color Urine Yellow [facility] Appearance Urine Clear [facility] PH 6.5 5.0 - 9.0 [facility] Glucose Urine UA >=1000(A) Negative mg/dL [facility] Urine Blood Negative Negative [facility] Specific [facility] - Urine 1.025 1.005 - 1.025 [facility] Urine Protein 30 (1+)(A) Neg-Trace mg/dL [facility] Urine Ketones Negative Negative mg/dL [facility] Nitrite Urine Negative Negative [facility] Leukocyte Esterase Urine Negative Negative [facility] RBC Urine 0-2 0 - 2 /HPF [facility] Urine WBC 0-5 0 - 5 /HPF [facility] Urine Squamous Epithelial Cell 0-2 0 - 2 /HPF [facility] Urine Bacteria None Seen None Seen [facility] Hyaline Casts, Urine 0-2 0 - 2 /LPF [facility] 08/05/2024 2:20 AM EST 08/05/2024 2:22 AM EST Narrative [facility] - 08/05/2024 2:45 AM EST Urine, Clean Catch Generic External Data Provider LAB URINE ORDERAB LES Final Result [facility] [address] [place] [phone] * Hold Red (08/05/2024 2:10 AM EST) Hold Red See Note [facility] Comment:Specimen held untest ed for 24 hours; Call to requestChemistry testing. 08/05/2024 2:10 AM EST 08/05/2024 2:20 AM EST Generic External Data Provider LAB BLOOD ORDERAB LES Final Result Performing Organization Address [facility]/ZIP Co de Phone Number [facility] [address] [place] [address] [phone] * (ABNORMAL) Lipase (08/05/2024 2:10 AM EST) Only the most recent of2 resultswithin the time period is included. Pathologist [facility] Lipase 6(L) 8 - 78 U/L [facility] 08/05/2024 2:10 AM EST 08/05/2024 2:14 AM EST Generic External Data Provider LAB BLOOD ORDERAB LES Final Result Performing Organization Address [facility] de Phone Number [facility] [address] [place] [phone] * Basic Metabolic Panel (08/05/2024 2:10 AM EST) Only the most recent of3 resultswithin the time period is included. Pathologist [facility] Sodium 140 135 - 145 mmol/L [facility] Potassium 3.6 3.3 - 5.1 mmol/L [facility] Chloride 105 96 - 108 mmol/L [facility] Carbon Dioxide 27 22 - 29 mmol/L [facility] Anion Gap 12 12 - 20 [facility] Urea Nitrogen (BUN) 15 9 - 16 mg/dL [facility] Creatinine, Serum 0.87 0.5 - 1.4 mg/dL [facility] Creatinine Clr Calc Pharmacy 116.5 [facility] Comment:eGFR (calculated fro m the MDRD study equation) and eCrCl(calculated from the Cockcroft-Gault equation) are based ondifferent parameters and may not yield comparable results.If eCrCl result is absurd, please check patient'sheight/weight. Estimated Glomerular Filt Rate >60 [facility] Comment:Chronic Kidney Disea se: Estimated GFR < 60 mL/min/1.28v2Nptwlo Kidney Disease: Estimated GFR < 15 mL/min/1.73m2 Glucose 88 60 - 115 mg/dL [facility] Calcium 9.1 8.4 - 10.2 mg/dL [facility] 08/05/2024 2:10 AM EST 08/05/2024 2:14 AM EST Generic External Data Provider LAB BLOOD ORDERAB LES Final Result Performing Organization Address [facility] Co de Phone Number [facility] [address] [place] [phone] * Hepatic Function Panel (08/01/2024 11:23 PM EST) Only the most recent of2 resultswithin the time period is included. Bilirubin, Total 0.5 0.0 - 1.0 mg/dL [facility] Bilirubin, Direct 0.2 0.0 - 0.5 mg/dL [facility] Aspartate Amino Transferase 19 5 - 37 U/L [facility] Alanine Aminotransferase 17 0 - 40 U/L [facility] Total Protein 6.7 6.5 - 8.0 g/dL [facility] Albumin Level 3.9 3.5 - 5.0 g/dL [facility] Alkaline Phosphatase 65 39 - 117 U/L [facility] 08/01/2024 11:2 3 PM EST 08/01/2024 11:26 PM EST Generic External Data Provider LAB BLOOD ORDERAB LES Final Result Performing Organization Address [facility] Co de Phone Number [facility] [address] [place] [phone] * Chlamydia/N. Gonorrhoeae RNA, TMA, Urogenitial (07/31/2024 3:08 PM EST) CT PCR NOT DETECTED Not Detect. [facility] Comment:A not detected test result does [...] psychologicalconsequences. NG PCR NOT DETECTED Not Detect. [facility] Comment:A not detected test result does [...] PM EST 07/31/2024 3:12 PM EST Narrative [facility] - 07/31/2024 5:21 PM EST Urine us Generic External Data Provider LAB MICROBIOLOGY - GENERAL ORDERABLES Final Result [facility] [address] [place] [phone] * VENOUS BLOOD GAS (07/31/2024 1:17 PM EST) VBG pH 7.43 7.32 - 7.43 [facility] Comment:METER #: [id number] additional_comment: Cb omoruna VBG PCO2 39 mmHg [facility] Comment:METER #: [id number] additional_comment: Cb omoruna VBG PO2 223 mmHg [facility] Comment:METER #: [id number] additional_comment: Cb omoruna VBG Base Excess 2.5 mmol/L [facility] Comment:METER #: [id number] additional_comment: Cb omoruna VBG HCO3 26 22 - 26 mmol/L [facility] Comment:METER #: [id number] additional_comment: Cb omoruna O2 Sat, Carlin 99.0 % [facility] Comment:METER #: [id number] additional_comment: Cb omoruna 07/31/2024 1:17 PM EST 07/31/2024 1:22 PM EST us Generic External Data Provider LAB BLOOD ORDERAB LES Final Result [facility] [address] [place] [phone] * POCT glucose manually resulted (07/31/2024 10:20 AM EST) Glucose Blood, POC 198 60 - 200 mg/dL Blood Capillary blood specimen / Unknown 07/31/2024 10:20 AM EST us Lindsey Cuellar REPORTING LEAD POINT OF CARE TEST ENTER/EDIT O RDERABLES Final Result * CT Cervical Spine w/o Contrast (07/16/2024 11:09 AM EST) Anatomical Region Laterality Modality Spine, C-spine Computed Tomogra phy 07/16/2024 11:0 9 AM EST Narrative 07/16/2024 4:27 PM EST ? [facility] ?[address] ?[place] [address] ? CT Scan Report ? Signed ? Patient: Torres,Bradford J ?MR#: [id number] ?? [id number] ? : 1995 ?Acct:[id number] ? Age/Sex: 29 / M ?ADM Date: 07/16/24 ? Loc: HO.ED ? Attending Dr: ? Ordering Physician: Jamilah Mcintyre NP ?? Date of Service: 07/16/24 ?? Procedure(s): CT cervical spine wo IV con ?? Accession Number(s): [id number] ? cc: Name,Everett ROSE; Jamilah Mcintyre NP [...] DD/ 1109 ? TD/TT: 07/16/24 1120 ? Professor Of Engineering: BA ? Procedure Note Donotuseinterpreter, Image - 07/16/[address] [address] [address] Scan Report Signed Patient: Bradford Torres JMR#: [id number] : 1995Acct:[id number] Age/Sex: 29 / MADM Date: 07/16/24 Loc: HO.ED Attending Dr: Ordering Physician: Jamilah Mcintyre NP Date of Service: 07/16/24 Procedure(s): CT cervical spine wo IV con Accession Number(s): [id number] cc: Name,Everett ROSE; Jamilah Mcintyre NP EXAMINATION: [...] 07/16/24 1624 DD/ 1109 TD/TT: 07/16/24 1120 Professor Of Engineering: ZULAY [facility] External Provider IMG CT PROCEDURES Final Result * CT Sinus Facial Bones w/o Contrast (07/16/2024 11:01 AM EST) Anatomical Region Laterality Modality Computed Tomogra phy 07/16/2024 11:0 1 AM EST Narrative 07/16/2024 4:27 PM EST ? [facility] ?[address] ?[place] [address] ? CT Scan Report ? Signed ? Patient: BrianBradford Lopez ?MR#: [id number] ?? [id number] ? : 1995 ?Acct:[id number] ? Age/Sex: 29 / M ?ADM Date: 07/16/24 ? Loc: HO.ED ? Attending Dr: ? Ordering Physician: Jamilah Mcintyre REPORTING LEAD ?? Date of Service: 07/16/24 ?? Procedure(s): CT facial bones wo IV con ?? Accession Number(s): [id number] ? cc: Name,Everett ROSE; Jamilah Mcintyre NP [...] DD/ 1101 ? TD/TT: 07/16/24 1120 ? Professor Of Engineering: BA ? Procedure Note Geovanna, Image - 07/16/[address] [address] CT Scan Report Signed Patient: Bradford Torres R#: [id number] : 1995Acct:[id number] Age/Sex: 29 / MADM Date: 07/16/24 Loc: HO.ED Attending Dr: Ordering Physician: Jamilah Mcintyre NP Date of Service: 07/16/24 Procedure(s): CT facial bones wo IV con Accession Number(s): [id number] cc: Name,Everett ROSE; Jamilah Mcintyre NP EXAMINATION: [...] by: Paul Zuñiga MD 07/16/2024 04:[address] [facility] Dictated By: Paul Zuñiga MD Signed By: <Electronically signed by Paul Zuñiga MD in OV> 11/26/24 1624 DD/ 1101 TD/TT: 07/16/24 1120 Professor Of Engineering: ZULAY [facility] External Provider IMG CT PROCEDURES Final Result * CT Head w/o Contrast (07/16/2024 11:01 AM EST) Anatomical Region Laterality Modality Head, Neck Computed Tomogra phy 07/16/2024 11:0 1 AM EST Narrative 07/16/2024 4:27 PM EST ? [facility] ?[address] ?[place] [address] ? CT Scan Report ? Signed ? Patient: Bradford Torres ?MR#: [id number] ?? [id number] ? : 1995 ?Acct:[id number] ? Age/Sex: 29 / M ?ADM Date: 07/16/24 ? Loc: HO.ED ? Attending Dr: ? Ordering Physician: Jamilah Mcintyre NP ?? Date of Service: 07/16/24 ?? Procedure(s): CT head/brain wo IV con ?? Accession Number(s): [id number] ? cc: Name,Everett ROSE; Jamilah Mcintyre NP [...] DD/ 1101 ? TD/TT: 07/16/24 1120 ? Professor Of Engineering: BA ? Procedure Note Aamir Austin - 07/16/[address] [address] [address] Scan Report Signed Patient: Bradford Torres R#: [id number] : 1995Acct:[id number] Age/Sex: 29 / MADM Date: 07/16/24 Loc: HO.ED Attending Dr: Ordering Physician: Jamilah Mcintyre NP Date of Service: 07/16/24 Procedure(s): CT head/brain wo IV con Accession Number(s): [id number] cc: Everett Angulo MD; Jamilah Mcintyre NP [...] by: Paul Zuñiga MD 07/16/2024 04:[address] [facility] Dictated By: Paul Zuñiga MD Signed By: <Electronically signed by Paul Zuñiga MD in OV> 07/16/24 1624 DD/ 1101 TD/TT: 07/16/24 1120 Professor Of Engineering: ZULAY [facility] External Provider IMG CT PROCEDURES Final Result * (ABNORMAL) POCT A1C (02/26/2024 3:39 PM EDT) Hemoglobin A1C 9.3(A) 4.0 - 6.0 % Blood 02/26/2024 3:39 PM EDT Amna Urrutia HORSE STUD MANAGER POINT OF CARE TEST ENTER/EDIT O RDERABLES Final Result * Hepatitis C Antibody with Reflex to HCV, RNA, Quantitative, Real-Time PCR (11/15/2023 1:28 PM EDT) Hepatitis C Antibody Nonreactive Nonreactive [facility] Comment:Antibodies to HCV no t detected; does not exclude early acuteHCV infection. Blood Venous blood specimen / Unknown 11/15/2023 1:28 PM EDT 11/15/2023 4:04 PM EDT 1-[facility] BLOOD ORDERABLES Final Resu lt [facility] [address] [place] [phone] * Lipid Panel, Standard (11/15/2023 1:28 PM EDT) Triglycerides 56 <150 mg/dL [facility] Comment:Desirable Triglyceri de: less than 150 mg/dLBorderline High Triglyceride 150-199 mg/dLHigh Triglyceride: 200-499 mg/dLVery High Triglyceride: greater than or equal to 5OO mg/dL Cholesterol 145 <200 mg/dL [facility] Comment:Desirable Cholestero l: less than 200 mg/dLBorderline High Cholesterol: 200-239 mg/dLHigh Cholesterol: greater than 239 mg/dL LDL Cholesterol Calculated 84 <100 mg/dL [facility] Comment:Desirable LDL: less than 100 mg/dLNear Optimal/Above Optimal LDL: 110- 129 mg/dLBorderline High LDL: 130-159 mg/dLHigh LDL: 160-189 mg/dLVery High LDL: greater than or equal to 190 mg/dL HDL Cholesterol 50 >40 mg/dL [facility] Comment:Desirable HDL: great er than 40 mg/dL Note: This HDL assay may give artificially low results in patients with liver disease. Blood Venous blood specimen / Unknown 11/15/2023 1:28 PM EDT 11/15/2023 4:04 PM EDT 1-[facility] BLOOD ORDERABLES Final Resu lt [facility] [address] [place] [phone] * HIV-1 RNA, Quantitative, Real-Time PCR with Reflex to Genotype (RTI, PI, Integrase) (01/06/2023 10:25 AM EDT) HIV 1 RNA, QN PCR NOT DETECTED copies/mL [facility], HIV 1 RNA, QN PCR NOT DETECTED Log copies/mL [facility], Comment: REFERENCE RANGE: NOT DETECTED copies/mL ?NOT DETECTED ??Log copies/mL This test was performed using Real-Time Polymerase Chain Reaction. Reportable range is 20 to 10,000,000 copies/mL (1.30-7.00 Log copies/mL). 01/06/2023 10:2 5 AM EDT 01/06/2023 10:26 AM EDT Narrative [facility] - 01/11/2023 1:53 AM EDT FASTING:NO SPECIMEN COLLECTED AT PROVIDER OFFICE. FASTING: NO Amna Urrutia [facility] BLOOD ORDERABLES Final Resu lt Performing Organization Address City/[facility] Co de Phone Number [facility] [address] [facility], [place] [address] [place], [address] [place] [address] from Last 3 Months or Most Recently Relevant to Health Maintenance Insurance [facility] C3 HSN FULL DENTAL - [place] OF [place] Care Teams Tow Truck Dispatcher Relationship Specialty Start Date End Date Sahil Chen CNP [address] [place] [address] PCP - General Family Medicine 10/09/24 Chris Pack Jr Toe Closing Machine TenderWire Weaver 09/04/24
--- OUTSIDE RECORDS SUMMARY | 2024-10-11 11:44 | XMS_ITS | Patient Health Record ---
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
--- OUTSIDE RECORDS SUMMARY | 2024-10-11 11:44 | XMS_ITS | Encounter Summary ---
Author Organization [employer] Address [address] [facility] [address] [place] [address] Care Team Providers Care Toe Puller Name Role Phone Amna Urrutia Primary Care Provider Adele, Everett ROSE Primary Care Provider [phone] Sahil Chen CNP Primary Care Provider [phone] Reason for Visit * Reason Onset Date Comments reaction to medication 10/24/2022 Encounter Details Date Type Department Care Team ([facility] st Contact Info) Description 10/24/2022 Telephone [facility] [address] [place] [address] Marycruz Oseguera DDS [address] [place] [address] reaction to medication Social History Tobacco Use [...] and phone is currently out of service. DR * Telephone Encounter - Marycruz Oseguera DDS - 10/25/2022 8:34 AM EST Please inform the pt that he has to stop the medication, I will be changing the antibiotic. Thanks Dr. Warner * Telephone Encounter - Rachna Chatman - 10/24/2022 1:11 PM EST Patient called [...] Description 11/27/2024 2:45 PM EDT Office Visit [facility] [address] [place], [place] [phone] Sahil Chen CNP [address] [place] [address] documented as of this encounter Visit Diagnoses Not on filedocumented in this encounter Care Teams Toe Puller Relationship Specialty Start Date End Date Amna Urrutia FNP [address] [place] [phone] PCP - General Family Medicine 01/01/23 04/18/24 Name, MD Everett [address] [place] [address] PCP - General Internal Medicine 04/19/24 10/08/24 Sahil Chne CNP [address] [place] [address] PCP - General Family Medicine 10/09/24 Chris Pack Jr Coat Joiner LockstitchWood Borer 09/04/24 documented as of this encounter
--- OUTSIDE RECORDS SUMMARY | 2024-10-11 11:44 | XMS_ITS | Encounter Summary ---
Author Organization [employer] Address [address] [place] [address] Care Team Providers Care Five Roll Refiner Batch Mixer Name Role Phone Amna Urrutia Primary Care Provider [phone] Adele, Everett ROSE Primary Care Provider [phone] Sahil Chen CNP Primary Care Provider [phone] Encounter Details Date Type Department Care Team (Late st Contact Info) Description 06/28/2023 Orders Only [facility] [address] [place], [place] [phone] Santos Mueller MD [address] [place] [address] Social History Tobacco Use Types Packs/Day Years [...] Description 11/27/2024 2:45 PM EDT Office Visit [facility] [address] [place] [address] Sahil Chen CNP [address] [place] [address] documented as of this encounter Visit Diagnoses Not on filedocumented in this encounter Additional Health Concerns Assessment Noted Time PHQ-9 Depression Total Score: 16 023 8:52 AM EDT documented as of this encounter Care Teams Five Roll Refiner Batch Mixer Relationship Specialty Start Date End Date Amna Urrutia FNP [address] [place], [place] [phone] PCP - General Family Medicine 01/01/23 04/18/24 Everett Angulo MD [address] [place] [address] PCP - General Internal Medicine 04/19/24 10/08/24 Sahil Chen CNP [address] [place], [place] [phone] PCP - General Family Medicine 10/09/24 Chris Pack Jr Range MounterDesign Technology Teacher 09/04/24 documented as of this encounter
--- OUTSIDE RECORDS SUMMARY | 2024-10-11 11:44 | XMS_ITS | Encounter Summary ---
Author Organization [employer] Address [address] [place] [address] Care Team Providers Care Movie Theater Usher Name Role Phone Name, Everett ROSE Primary Care Provider [phone] Reason for Visit * Reason Onset Date Comments Med Refill 10/08/2024 Encounter Details Date Type Department Care Team (Late st Contact Info) Description 10/08/2024 Refill [facility] [address] [place], [place] [phone] Name, MD Everett [address] [place] [address] Gastroesophageal reflux disease without esophagitis Social History Tobacco Use Types Packs/Day Years [...] encounter Miscellaneous Notes * Telephone Encounter - Alejandra Garcia LPN - 10/08/2024 2:10 PM EST Last seen 09/13/24. documented in this encounter Plan of Treatment Upcoming Encounters Date Type Department Care Team (Late st Contact Info) Description 11/27/2024 2:45 PM EDT Office Visit [facility] [address] [place], [place] [phone] Sahil Chen CNP [address] [place], [place] [phone] documented as of this encounter Visit Diagnoses Diagnosis Gastroesophageal reflux disease without esophagitis Esophageal reflux documented in this encounter Additional Health Concerns Assessment Noted Time PHQ-9 Depression Total Score: 20 024 2:42 PM EDT documented as of this encounter Care Teams Movie Theater Usher Relationship Specialty Start Date End Date Name, MD Everett [address] [place], [place] [phone] PCP - General Internal Medicine 04/19/24 10/08/24 Chris Pack Jr Commercial Sewing InstructorCaddie Supervisor 09/04/24 documented as of this encounter
--- OUTSIDE RECORDS SUMMARY | 2024-10-11 11:44 | XMS_ITS | Encounter Summary ---
Author Organization [employer] Address 75 [facility] 7t [place] [address] Care Team Providers Care Milieu Therapist Name Role Phone Amna Urrutia Primary Care Provider [phone] Name, Everett ROSE Primary Care Provider [phone] Sahil Chen CNP Primary Care Provider [phone] Reason for Visit * Reason Onset Date Comments Med Refill 07/28/2023 Encounter Details Date Type Department Care Team (Late st Contact Info) Description 07/28/2023 Refill [facility] 230 [place] [address] Amna Urrutia FNP 230 [place] [address] Social History Tobacco Use Types Packs/Day Years [...] Description 11/27/2024 2:45 PM EDT Office Visit [facility] [address] [place] [address] Sahil Chen CNP 230 [place] [address] documented as of this encounter Visit Diagnoses Not on filedocumented in this encounter Additional Health Concerns Assessment Noted Time PHQ-9 Depression Total Score: 16 023 8:52 AM EDT documented as of this encounter Care Teams Milieu Therapist Relationship Specialty Start Date End Date Amna Urrutia FNP [address] [place] [address] PCP - General Family Medicine 01/01/23 04/18/24 Everett Angulo MD [address] [place] [address] PCP - General Internal Medicine 04/19/24 10/08/24 Sahil Chen CNP [address] [place] [address] PCP - General Family Medicine 10/09/24 Chris Pack Jr Sql Server Dba DeveloperVisual Arts Teacher 09/04/24 documented as of this encounter
--- OUTSIDE RECORDS SUMMARY | 2024-10-11 11:44 | XMS_ITS | Encounter Summary ---
Author Organization [email or web address] [facility] Address 75 [facility] 7t [place] [address] Care Team Providers Care Operating Room Rn Name Role Phone Amna Urrutia Primary Care Provider [phone] Name, Everett ROSE Primary Care Provider [phone] Sahil Chen CNP Primary Care Provider [phone] Encounter Details Date Type Department Care Team (Late st Contact Info) Description 10/21/2022 Abstract [facility] 230 [place] [address] Marycruz Oseguera DDS 230 [place] [address] Social History Tobacco Use Types Packs/Day Years [...] Description 11/27/2024 2:45 PM EDT Office Visit [facility] 230 [place] [address] Sahil Chen CNP 230 [place] [address] documented as of this encounter Visit Diagnoses Not on filedocumented in this encounter Care Teams Operating Room Rn Relationship Specialty Start Date End Date Amna Urrutia FNP 230 [place], [place] [phone] PCP - General Family Medicine 01/01/23 04/18/24 Adele, MD Everett [address] [place], [place] [phone] PCP - General Internal Medicine 04/19/24 10/08/24 Sahil Chen CNP 230 [place], [place] [phone] PCP - General Family Medicine 10/09/24 Chris Pack Jr ReconditionerLathe Setup Operator 09/04/24 documented as of this encounter
--- OUTSIDE RECORDS SUMMARY | 2024-10-11 11:44 | XMS_ITS | Encounter Summary ---
Author Organization [employer] Address 75 [facility] 7t [place] [address] Care Team Providers Care Spearer Name Role Phone Name, Everett ROSE Primary Care Provider [phone] Sahil Chen CNP Primary Care Provider [phone] Encounter Details Date Type Department Care Team (Late st Contact Info) Description 04/21/2024 Orders Only [facility] [address] [place], [place] [phone] Amna Urrutia FNP [address] [facility] [place], [place] [phone] Social History Tobacco Use Types Packs/Day Years [...] Description 11/27/2024 2:45 PM EDT Office Visit [facility] MED[facility] [address] [place] [address] Sahil Chen CNP 230 [place] [address] documented as of this encounter Visit Diagnoses Not on filedocumented in this encounter Additional Health Concerns Assessment Noted Time PHQ-9 Depression Total Score: 20 024 2:42 PM EDT documented as of this encounter Care Teams Spearer Relationship Specialty Start Date End Date Name, MD Everett [address] [place] [address] PCP - General Internal Medicine 04/19/24 10/08/24 Sahil Chen CNP [address] [place] [address] PCP - General Family Medicine 10/09/24 Chris Pack Jr Storeroom SupervisorForklift Picker 09/04/24 documented as of this encounter
--- OUTSIDE RECORDS SUMMARY | 2024-10-11 11:44 | XMS_ITS | Encounter Summary ---
Author Organization [employer] Address [address] [facility] 7t [place] [address] Care Team Providers Care Roughing Mill Operator Name Role Phone Amna Urrutia Primary Care Provider [phone] Adele, Everett ROSE Primary Care Provider [phone] Sahil Chen CNP Primary Care Provider [phone] Reason for Visit * Reason Onset Date Comments Med Refill 07/15/2023 Encounter Details Date Type Department Care Team ([facility] st Contact Info) Description 07/15/2023 Refill [facility] 230 [place], [place] [phone] Amna Urrutia FNP 230 [place] [address] Social History Tobacco Use Types Packs/Day Years [...] EDT Office Visit [facility] [address] [place] [address] Sahil Chen CNP 230 [place], [place] [phone] documented as of this encounter Visit Diagnoses Not on filedocumented in this encounter Additional Health Concerns Assessment Noted Time PHQ-9 Depression Total Score: 16 023 8:52 AM EDT documented as of this encounter Care Teams Roughing Mill Operator Relationship Specialty Start Date End Date Amna Urrutia FNP [address] [place] [address] PCP - General Family Medicine 01/01/23 04/18/24 Everett Angulo MD [address] [place] [address] [phone] PCP - General Internal Medicine 04/19/24 10/08/24 Sahil Chen CNP [address] [place] [address] [phone] PCP - General Family Medicine 10/09/24 Chris Pack Jr Furniture InstallerTool Chaser 09/04/24 documented as of this encounter
--- OUTSIDE RECORDS SUMMARY | 2024-10-11 11:44 | XMS_ITS | Encounter Summary ---
Author Organization [employer] Address [address] [facility] 7t [place] [address] Care Team Providers Care Double Cut Sawyer Name Role Phone Amna Urrutia Primary Care Provider [phone] Adele, Everett ROSE Primary Care Provider [phone] Sahil Chen CNP Primary Care Provider [phone] Reason for Visit * Reason Comments Med Refill Encounter Details Date Type Department Care Team ([facility] st Contact Info) Description 09/08/2023 Refill [facility] 230 [place] [address] Amna Urrutia FNP 230 [place] [address] Type 1 diabetes mellitus with hyperglycemia ([facility]) Social History Tobacco [...] Description 11/27/2024 2:45 PM EDT Office Visit [facility] [address] [place] [address] Sahil Chen CNP 230 [place] [address] documented as of this encounter Visit Diagnoses Diagnosis Type 1 diabetes mellitus with hyperglycemia (CMS/HCC) documented in this encounter Additional Health Concerns Assessment Noted Time PHQ-9 Depression Total Score: 16 023 8:52 AM EDT documented as of this encounter Care Teams Double Cut Sawyer Relationship Specialty Start Date End Date Amna Urrutia FNP [address] [place] [address] PCP - General Family Medicine 01/01/23 04/18/24 Everett Angulo MD [address] [place] [address] [phone] PCP - General Internal Medicine 04/19/24 10/08/24 Sahil Chen CNP [address] [place] [address] [phone] PCP - General Family Medicine 10/09/24 Chris Pack Jr Race Relations AdviserActing Manager 09/04/24 documented as of this encounter
--- OUTSIDE RECORDS SUMMARY | 2024-10-11 11:44 | XMS_ITS | Encounter Summary ---
Author Organization [employer] Address 75 [facility] 7t [place] [address] Care Team Providers Care Manufacturing Team Leader Name Role Phone Name, Everett ORSE Primary Care Provider [phone] Reason for Visit * Reason Onset Date Comments Nurse Triage 09/12/2024 Encounter Details Date Type Department Care Team (Late st Contact Info) Description 09/12/2024 Telephone [facility] 230 [place] [address] Name, MD Everett 230 [place] [address] Nurse Triage Social History Tobacco Use Types [...] encounter Miscellaneous Notes * Telephone Encounter - Cecille Fernandez LPN - 09/12/2024 3:05 PM EST Triage call returned to patient who reports that 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 Cough when [...] or Team appts at time of call. [facility] Walk In Center hours and availability [...] caller accepted this outcome. Contact pt at [phone] documented in this encounter Plan of Treatment Upcoming Encounters Date Type Department Care Team (Late st Contact Info) Description 11/27/2024 2:45 PM EDT Office Visit [facility] 230 [place], [place] [phone] Sahil Chen CNP 230 [place], [place] [phone] documented as of this encounter Visit Diagnoses Not on filedocumented in this encounter Additional Health Concerns Assessment Noted Time PHQ-9 Depression Total Score: 20 024 2:42 PM EDT documented as of this encounter Care Teams Manufacturing Team Leader Relationship Specialty Start Date End Date Name, MD Everett 230 [place], [place] [phone] PCP - General Internal Medicine 04/19/24 10/08/24 Chris Pack Jr Carbide Tool Die MakerDebug Technician 09/04/24 documented as of this encounter
--- OUTSIDE RECORDS SUMMARY | 2024-10-11 11:44 | XMS_ITS | Encounter Summary ---
Author Organization [email or web address] Address 75 [facility] 7t [place] [address] Care Team Providers Care Arm Maker Name Role Phone Amna Urrutia Primary Care Provider [phone] Adele, Everett ROSE Primary Care Provider [phone] Sahil Chen CNP Primary Care Provider [phone] Reason for Visit * Reason Comments Med Refill Encounter Details Date Type Department Care Team ([facility] st Contact Info) Description 09/11/2023 Refill [facility] 230 [place] [address] Amna Urrutia FNP 230 [place] [address] Type 1 diabetes mellitus with hyperglycemia ([facility]) Social History Tobacco Use Types Packs/Day Years [...] 11/27/2024 2:45 PM EDT Office Visit [facility] [address] [place] [address] Sahil Chen CNP 230 [place] [address] documented as of this encounter Visit Diagnoses Diagnosis Type 1 diabetes mellitus with hyperglycemia (CMS/HCC) documented in this encounter Additional Health Concerns Assessment Noted Time PHQ-9 Depression Total Score: 16 023 8:52 AM EDT documented as of this encounter Care Teams Arm Maker Relationship Specialty Start Date End Date Amna Urrutia FNP [address] [place] [address] PCP - General Family Medicine 01/01/23 04/18/24 Everett Angulo MD [address] [place] [address] [phone] PCP - General Internal Medicine 04/19/24 10/08/24 Sahil Chen CNP [address] [place] [address] [phone] PCP - General Family Medicine 10/09/24 Chris Pack Jr GrapplerApn 09/04/24 documented as of this encounter
--- OUTSIDE RECORDS SUMMARY | 2024-10-11 11:44 | XMS_ITS | Encounter Summary ---
Author Organization [employer] Address 75 [facility] 7t [place] [address] Care Team Providers Care Field Scout Name Role Phone Amna Urrutia Primary Care Provider [phone] Everett Angulo MD Primary Care Provider [phone] Sahil Chen CNP Primary Care Provider [phone] Reason for Visit * Reason Onset Date Comments Med Refill 07/28/2023 Encounter Details Date Type Department Care Team (Late st Contact Info) Description 07/28/2023 Refill [facility] 230 [place], [place] [phone] Denice Rubin MD 230 [place], [place] [phone] Social History Tobacco Use Types Packs/Day Years [...] Description 11/27/2024 2:45 PM EDT Office Visit [facility] [address] [place] [address] Sahil Chen CNP 230 [place] [address] documented as of this encounter Visit Diagnoses Not on filedocumented in this encounter Additional Health Concerns Assessment Noted Time PHQ-9 Depression Total Score: 16 023 8:52 AM EDT documented as of this encounter Care Teams Field Scout Relationship Specialty Start Date End Date Amna Urrutia FNP [address] [place] [address] PCP - General Family Medicine 01/01/23 04/18/24 Everett Angulo MD [address] [place] [address] PCP - General Internal Medicine 04/19/24 10/08/24 Sahil Chen CNP [address] [place] [address] PCP - General Family Medicine 10/09/24 Chris Pack Jr Hand Buffing Wheel FormerCommunications Marketing Intern 09/04/24 documented as of this encounter
--- OUTSIDE RECORDS SUMMARY | 2024-10-11 11:44 | XMS_ITS | Encounter Summary ---
Author Organization [facility] Address [address] [place] [address] Phone Care Team Providers Care Evp Of Products & Co Founder Name Role Phone Santos Mueller MD Primary Care Provider [phone] Encounter Details Date Type Department Care Team (Late st Contact Info) Description 08/05/2024 Documentation Only [facility], [address] [place] [address] Jessica Sprague [address] [place] [address] Social History Tobacco Use Types [...] on filedocumented in this encounter Care Teams Evp Of Products & Co Founder Relationship Specialty Start Date End Date Santos Mueller MD 230 [place] [address] PCP - General Emergency Medicine 07/28/23 documented as of this encounter
--- OUTSIDE RECORDS SUMMARY | 2024-10-11 11:44 | XMS_ITS | Clinical Summary ---
Author Organization [facility], Address [address] [place] [address] [place] [address] Phone Care Team Providers Care Screen Operator Name Role Phone Santos Mueller MD Primary Care Provider [phone] Allergies Active Allergy Reactions Criticality Noted Date [...] Documentation Only [facility] [address] [place] [address] Jessica Sprague 08/05/2024 Documentation Only [facility] [address] [place] [address] Jessica Sprague 08/05/2024 Documentation Only [facility] [address] [place] [address] Jessica Sprague from Last 3 [...] 05/28/2024 02/26/2024 Insurance MEDICAID [place] Care Teams Screen Operator Relationship Specialty Start Date End Date Santos Mueller MD 230 [place] [address] PCP - General Emergency Medicine 07/28/23
--- OUTSIDE RECORDS SUMMARY | 2024-10-11 11:44 | XMS_ITS | Encounter Summary ---
Author Organization [employer] Address 75 [facility] 7t [place] [address] Care Team Providers Care Natural Foods Clerk Name Role Phone Amna Urrutia Primary Care Provider [phone] Adele, Everett ROSE Primary Care Provider [phone] Sahil Chen CNP Primary Care Provider [phone] Reason for Visit * Reason Comments Med Refill Encounter Details Date Type Department Care Team ([facility] st Contact Info) Description 05/30/2023 Refill [facility] 230 [place] [address] Amna Urrutia FNP 230 [place] [address] Social History Tobacco Use Types Packs/Day Years [...] Description 11/27/2024 2:45 PM EDT Office Visit [facility] [address] [place] [address] Sahil Chen CNP 230 [place] [address] documented as of this encounter Visit Diagnoses Not on filedocumented in this encounter Additional Health Concerns Assessment Noted Time PHQ-9 Depression Total Score: 16 023 8:52 AM EDT documented as of this encounter Care Teams Natural Foods Clerk Relationship Specialty Start Date End Date Amna Urrutia FNP [address] [place] [address] PCP - General Family Medicine 01/01/23 04/18/24 Everett Angulo MD [address] [place] [address] PCP - General Internal Medicine 04/19/24 10/08/24 Sahil Chen CNP [address] [place] [address] PCP - General Family Medicine 10/09/24 Chris Pack Jr Teradata Solution ArchitectWeigh And Charge Worker 09/04/24 documented as of this encounter
--- OUTSIDE RECORDS SUMMARY | 2024-10-11 11:44 | XMS_ITS | Encounter Summary ---
Author Organization [employer] Address 75 [facility] 7t [place] [address] Care Team Providers Care Packing Supervisor Name Role Phone Name, Everett ROSE Primary Care Provider [phone] Reason for Visit * Reason Onset Date Comments Med Refill 10/08/2024 Encounter Details Date Type Department Care Team (Late st Contact Info) Description 10/08/2024 Refill [facility] 230 [place], [place] [phone] Name, MD Everett 230 [place] [address] Type 1 diabetes mellitus with hyperglycemia ([facility]) Social History Tobacco Use Types [...] Encounter - Alejandra Garcia LPN - 10/08/2024 1:49 PM EST Last seen 09/13/24. * Telephone Encounter - Eb Kahn - 10/08/2024 1:45 PM EST TC from pt requesting medication refill. Medications needing refill : promethazine (Phenergan) 25 MG tablet insulin glargine (Lantus SoloStar) 100 UNIT/ML pen To be sent to: [facility] - [place], [place] - [address] [place] [address] documented in this encounter Plan of Treatment Upcoming Encounters Date Type Department Care Team (Late st Contact Info) Description 11/27/2024 2:45 PM EDT Office Visit [facility] 230 [place] [address] Sahil Chen CNP 230 [place], [place] [phone] documented as of this encounter Visit Diagnoses Diagnosis Type 1 diabetes mellitus with hyperglycemia (CMS/HCC) documented in this encounter Additional Health Concerns Assessment Noted Time PHQ-9 Depression Total Score: 20 024 2:42 PM EDT documented as of this encounter Care Teams Packing Supervisor Relationship Specialty Start Date End Date Name, MD Everett 230 [place] [address] PCP - General Internal Medicine 04/19/24 10/08/24 Chris Pack Jr Cork InsulatorEvent Lighting Specialist 09/04/24 documented as of this encounter
--- OUTSIDE RECORDS SUMMARY | 2024-10-11 11:44 | XMS_ITS | Encounter Summary ---
Author Organization [employer] Address 75 [facility] 7t [place] [address] Care Team Providers Care Animal Services Officer Name Role Phone Amna Urrutia Primary Care Provider [phone] Adele, Everett ROSE Primary Care Provider [phone] Sahil Chen CNP Primary Care Provider [phone] Reason for Visit * Reason Onset Date Comments Med Refill 07/17/2023 Encounter Details Date Type Department Care Team (Late st Contact Info) Description 07/17/2023 Refill [facility] 230 [place] [address] Sandra Leal MD 230 [place] [address] Social History Tobacco Use Types Packs/Day Years [...] Visit [facility] [address] [place] [address] Sahil Chen CNP 230 [place] [address] documented as of this encounter Visit Diagnoses Not on filedocumented in this encounter Additional Health Concerns Assessment Noted Time PHQ-9 Depression Total Score: 16 023 8:52 AM EDT documented as of this encounter Care Teams Animal Services Officer Relationship Specialty Start Date End Date Amna Urrutia FNP [address] [place] [address] PCP - General Family Medicine 01/01/23 04/18/24 Everett Angulo MD [address] [place] [address] PCP - General Internal Medicine 04/19/24 10/08/24 Sahil Chen CNP [address] [place] [address] PCP - General Family Medicine 10/09/24 Chris Pack Jr Drafter Heating And VentilatingAcute Dialysis Registered Nurse 09/04/24 documented as of this encounter
--- OUTSIDE RECORDS SUMMARY | 2024-10-11 11:44 | XMS_ITS | Encounter Summary ---
Author Organization [facility] Address [address] [place] [address] Phone Care Team Providers Care Pre Coder Name Role Phone Santos Mueller MD Primary Care Provider [phone] Encounter Details Date Type Department Care Team (Late st Contact Info) Description 08/05/2024 Documentation Only [facility] [place], [address] [place] [address] Jessica Sprague [address] [place] [address] Social History Tobacco Use Types [...] on filedocumented in this encounter Care Teams Pre Coder Relationship Specialty Start Date End Date Santos Mueller MD 230 [place] [address] PCP - General Emergency Medicine 07/28/23 documented as of this encounter
--- OUTSIDE RECORDS SUMMARY | 2024-10-11 11:45 | XMS_ITS | Encounter Summary ---
Author Organization [facility] Address [address] [place] [address] 7 [place] [address] Care Team Providers Care Drapery Maker Name Role Phone Amna Urrutia Primary Care Provider [phone] Name, Everett ROSE Primary Care Provider [phone] Sahil Chen CNP Primary Care Provider [phone] Reason for Visit * Reason Onset Date Comments Med Refill 04/28/2023 Encounter Details Date Type Department Care Team (Late Contact Info) Description 04/28/2023 Refill [facility] [address] [place] [address] Sandra Leal MD [address] [place] [address] [phone] Social History Tobacco Use Types Packs/Day Years [...] Encounters Date Type Department Care Team (Late Contact Info) Description 11/27/2024 2:45 PM EDT Office Visit [facility] [address] [place] [address] Sahil Chen CNP 230 [place], [place] [phone] documented as of this encounter Visit Diagnoses Not on filedocumented in this encounter Additional Health Concerns Assessment Noted Time PHQ-9 Depression Total Score: 16 023 8:52 AM EDT documented as of this encounter Care Teams Drapery Maker Relationship Specialty Start Date End Date Amna Urrutia FNP 230 [place], [place] [phone] PCP - General Family Medicine 01/01/23 04/18/24 Evertet Angulo MD 230 [place], [place] [phone] PCP - General Internal Medicine 04/19/24 10/08/24 Sahil Chen CNP 230 [place], [place] [phone] PCP - General Family Medicine 10/09/24 Chris Pack Jr E Business SpecialistVice President Sales And Marketing 09/04/24 documented as of this encounter
--- OUTSIDE RECORDS SUMMARY | 2024-10-11 11:45 | XMS_ITS | Encounter Summary ---
Author Organization [facility] Address [address] [place] [address] 7 [place] [address] Care Team Providers Care Quality Internship Name Role Phone Amna Urrutia Primary Care Provider [phone] Name, Everett ROSE Primary Care Provider [phone] Sahil Chen CNP Primary Care Provider [phone] Reason for Visit * Reason Onset Date Comments Med Refill 03/21/2023 Encounter Details Date Type Department Care Team (Late Contact Info) Description 03/21/2023 Refill [facility] [address] [place] [address] Amna Urrutia FNP 230 [place], [place] [phone] Social History Tobacco Use Types Packs/Day Years [...] Description 11/27/2024 2:45 PM EDT Office Visit [facility] [address] [place] [address] Sahil Chen CNP 230 [place] [address] documented as of this encounter Visit Diagnoses Not on filedocumented in this encounter Additional Health Concerns Assessment Noted Time PHQ-9 Depression Total Score: 7 01/07/20 23 9:10 AM EDT documented as of this encounter Care Teams Quality Internship Relationship Specialty Start Date End Date Amna Urrutia FNP 230 [place] [address] PCP - General Family Medicine 01/01/23 04/18/24 Everett Angulo MD 230 [place] [address] PCP - General Internal Medicine 04/19/24 10/08/24 Sahil Chen CNP [address] [place] [address] PCP - General Family Medicine 10/09/24 Chris Pack Jr Parachute MenderBottle Capping Machine Operator 09/04/24 documented as of this encounter
--- OUTSIDE RECORDS SUMMARY | 2024-10-11 11:45 | XMS_ITS | Encounter Summary ---
Author Organization [employer] Address [address] [facility] 7t [place] [address] Care Team Providers Care Manager Cosmetic Name Role Phone Name, Everett ROSE Primary Care Provider [phone] Reason for Visit * Reason Comments Pre-visit Planning SDOH unable to compl ete, patient working. Encounter Details Date Type Department Care Team (Late st Contact Info) Description 09/30/2024 Patient Outreach [facility] [address] [place], [place] [phone] Name, MD Everett [address] [place] [address] Pre-visit Planning (SDOH unable to complete, patient working. ) Social History Tobacco Use Types Packs/Day Years [...] as of this encounter Progress Notes * Roselyn Koo - 09/30/2024 3:33 PM EST CC Roselyn Mike placed successful outbound call to patient for pre-visit planning. Patient name and confirmed. Patient confirms appt date and time, and has transportation arrangements. Biggest concern for appointment at this time is no concerns. Appropriate screenings completed in anticipation ofappointment. documented in this encounter Plan of Treatment Upcoming Encounters Date Type Department Care Team (Late st Contact Info) Description 11/27/2024 2:45 PM EDT Office Visit [facility] [address] [place] [phone] Sahil Chen CNP 230 [place], [place] [phone] documented as of this encounter Visit Diagnoses Not on filedocumented in this encounter Additional Health Concerns Assessment Noted Time PHQ-9 Depression Total Score: 20 024 2:42 PM EDT documented as of this encounter Care Teams Manager Cosmetic Relationship Specialty Start Date End Date Name, MD Everett [address] [place] [address] PCP - General Internal Medicine 04/19/24 10/08/24 Chris Pack Jr Drone OperatorKier Operator 09/04/24 documented as of this encounter
--- OUTSIDE RECORDS SUMMARY | 2024-10-11 11:45 | XMS_ITS | Encounter Summary ---
Author Organization [employer] [facility] Address [address] [facility] 7t [place] [address] Care Team Providers Care Sewing Machine Operator Paper Bags Name Role Phone Amna Urrutia Primary Care Provider [phone] Name, Everett ROSE Primary Care Provider [phone] Sahil Chen CNP Primary Care Provider [phone] Encounter Details Date Type Department Care Team (Late Contact Info) Description 01/17/2023 Orders Only [facility] MED[facility] [address] [place] [address] [phone] Amna Urrutia FNP 230 [place], [place] [phone] Social History Tobacco Use Types Packs/Day Years [...] Description 11/27/2024 2:45 PM EDT Office Visit [facility] [address] [place] [address] [phone] Sahil Chen CNP 230 [place] [address] documented as of this encounter Visit Diagnoses Not on filedocumented in this encounter Additional Health Concerns Assessment Noted Time PHQ-9 Depression Total Score: 7 01/07/20 23 9:10 AM EDT documented as of this encounter Care Teams Sewing Machine Operator Paper Bags Relationship Specialty Start Date End Date Amna Urrutia FNP 230 [place] [address] PCP - General Family Medicine 01/01/23 04/18/24 Name, MD Everett 230 [place] [address] PCP - General Internal Medicine 04/19/24 10/08/24 Sahil Chen CNP 230 [place] [address] PCP - General Family Medicine 10/09/24 Chris Pack Jr Dish TechnicianResidential Solar Sales Consultant 09/04/24 documented as of this encounter
--- OUTSIDE RECORDS SUMMARY | 2024-10-11 11:45 | XMS_ITS | Encounter Summary ---
Author Organization [employer] Address [address] [facility] [address] [address] 7t [place] [address] Care Team Providers Care Land Development Project Manager Name Role Phone Gustavo Sahil SERA Primary Care Provider [phone] Encounter Details Date Type Department Care Team (Late st Contact Info) Description 10/09/2024 Telephone [facility] 230 [place], [place] [phone] Shivani Lopez RN 230 [place] [address] Social History Tobacco Use Types Packs/Day Years [...] encounter Miscellaneous Notes * Telephone Encounter - Shivani Lopez RN - 10/09/2024 12:32 PM EST TC placed to pt as pt presented to Walk In requesting rx refill. Pt reports he needs refill for famotidine, promethazine and Tresiba. Pt informed rx for famotidine and promethazine was sent to pharmacy yesterday and would contact provider regarding Tresiba. Pt followed by [facility] Endocr[facility]ology. TC placed to [facility] Endocrinology and informed by staff, pt has been a no show and has not been seen since 05/2024. [facility] Endo office reports will refill Tresiba once time and informed pt needs to be seen or willbe discharged from practice. [facility] endo provided appt for pt 10/16/24 at 2PM. TC placed to pt regarding [facility] Endo appt. Pt verbalized understanding. RN informed will send appt reminder to address on file. Pt verbalized understanding. No further questions or concerns expressed at this time. Pt to F/U asneeded. RN will forward to PCP as FYI. documented in this encounter Plan of Treatment Upcoming Encounters Date Type Department Care Team (Late st Contact Info) Description 11/27/2024 2:45 PM EDT Office Visit [facility] 230 [place], [place] [phone] Sahil Chen CNP 230 [place] [address] documented as of this encounter Visit Diagnoses Not on filedocumented in this encounter Additional Health Concerns Assessment Noted Time PHQ-9 Depression Total Score: 20 024 2:42 PM EDT documented as of this encounter Care Teams Land Development Project Manager Relationship Specialty Start Date End Date Sahil Chen CNP 230 [place] [address] PCP - General Family Medicine 10/09/24 Chris Pack Jr Gold PlaterPlane Runner 09/04/24 documented as of this encounter
--- OUTSIDE RECORDS SUMMARY | 2024-10-11 11:45 | XMS_ITS | Encounter Summary ---
Author Organization [employer] Address [address] [facility] 7t [place] [address] Care Team Providers Care Appeals Rn Name Role Phone Sahil Chen CNP Primary Care Provider [phone] Encounter Details Date Type Department Care Team (Late st Contact Info) Description 10/09/2024 Orders Only [facility] 230 [place], [place] [phone] Sahil Chen CNP 230 [place] [address] Type 1 diabetes mellitus with hyperglycemia (CMS/HCC) (Primary Dx) Social History Tobacco Use Types Packs/Day Years [...] Description 11/27/2024 2:45 PM EDT Office Visit [facility] [address] [place] [phone] Sahil Chen CNP [address] [place], [place] [phone] documented as of this encounter Visit Diagnoses Diagnosis Type 1 diabetes mellitus with hyperglycemia (CMS/HCC)- Primary documented in this encounter Additional Health Concerns Assessment Noted Time PHQ-9 Depression Total Score: 20 024 2:42 PM EDT documented as of this encounter Care Teams Appeals Rn Relationship Specialty Start Date End Date Sahil Chen CNP [address] [place] [address] PCP - General Family Medicine 10/09/24 Chris Pack Jr Laboratory ImmunologistEscrow Clerk 09/04/24 documented as of this encounter
--- OUTSIDE RECORDS SUMMARY | 2024-10-11 11:45 | XMS_ITS | Encounter Summary ---
Author Organization [email or web address] Address [address] [facility] 7t [place] [address] Care Team Providers Care Clam Grader Name Role Phone Name, Everett ROSE Primary Care Provider [phone] Reason for Visit * Reason Onset Date Comments Results 09/16/2024 Encounter Details Date Type Department Care Team (Late st Contact Info) Description 09/16/2024 Telephone [facility] [address] [place] [address] Gertrude Tyler RN 230 [place] [address] Results Social History Tobacco Use Types Packs/Day Years [...] encounter Miscellaneous Notes * Telephone Encounter - Gertrude Tyler RN - 09/16/2024 9:46 AM EST T/C placed to pt re below results and POC. Informed influenza A +. Inquired how he is. Pt reports that his lungs feels better but he is still feeling fatigued. Advised rest, good PO hydration, and OTC medications as needed for Sx. Let us know if not improved within the next week or so. Pt verbalized understanding and denied having any further questions or concerns at this time. * Telephone Encounter - Gertrude Tyler RN - 09/16/2024 9:34 AM EST ----- Message from Denice Rubin MD sent at 09/15/2024 6:12 PM EST ----- Please let pt know his test was positive for influenza A. No change in management. Supportive care.Patient has type 1 diabetes. Please make sure his is improving and triage as needed. Thank you. documented in this encounter Plan of Treatment Upcoming Encounters Date Type Department Care Team (Late st Contact Info) Description 11/27/2024 2:45 PM EDT Office Visit [facility] [address] [place] [address] Sahil Chen CNP 230 [place], [place] [phone] documented as of this encounter Visit Diagnoses Not on filedocumented in this encounter Additional Health Concerns Assessment Noted Time PHQ-9 Depression Total Score: 20 024 2:42 PM EDT documented as of this encounter Care Teams Clam Grader Relationship Specialty Start Date End Date Name, MD Everett 230 [place] [address] PCP - General Internal Medicine 04/19/24 10/08/24 Chris Pack Jr Hair TinterSupervisor Remelt 09/04/24 documented as of this encounter
--- OUTSIDE RECORDS SUMMARY | 2024-10-11 11:45 | XMS_ITS | Encounter Summary ---
Author Organization [employer] Address 75 [facility] 7t [place] [address] Care Team Providers Care Embosser Apprentice Name Role Phone Amna Urrutia Primary Care Provider [phone] Name, Everett ROSE Primary Care Provider [phone] Reason for Visit * Reason Onset Date Comments ER Follow-up 05/04/2023 Encounter Details Date Type Department Care Team (Late st Contact Info) Description 05/04/2023 Telephone [facility] [address] [place] [address] Amna Urrutia FNP [address] [place] [address] ER Follow-up Social History Tobacco Use Types [...] Brasher RN - 05/05/2023 3:32 PM EDT [facility] notes sent to medical records. * Telephone Encounter - April Meneses RN - 05/04/2023 4:19 PM EDT called pt to triage, spoke to pt. pt states had an appt today but no showed. pt states seen in the ER at [facility] today for neck, shoulder and upper back [...] then. pt states is currently in the [facility] and will go upstairs to speak to [...] You become worse * Telephone Encounter - Sandra Hernandez - 05/04/2023 3:37 PM EDT Patient calling to report ED visit on 05/04/23 at [facility]. Reports to be seen for muscle spasm , states has heat flashes and pain still. Patient advised will forward to team nurse for follow up. Please contact at [phone] documented in this encounter Plan of Treatment Upcoming Encounters Date Type Department Care Team (Late st Contact Info) Description 11/27/2024 2:45 PM EDT Office Visit [facility] [address] [place] [address] Sahil Chen CNP 230 [place], [place] [phone] documented as of this encounter Visit Diagnoses Not on filedocumented in this encounter Additional Health Concerns Assessment Noted Time PHQ-9 Depression Total Score: 16 023 8:52 AM EDT documented as of this encounter Care Teams Embosser Apprentice Relationship Specialty Start Date End Date Amna Urrutia FNP [address] [place] [address] PCP - General Family Medicine 01/01/23 04/18/24 Everett Angulo MD [address] [place] [address] [phone] PCP - General Internal Medicine 04/19/24 10/08/24 Chris Pack Jr Survey Cad TechnicianAnthropologist 09/04/24 documented as of this encounter
--- OUTSIDE RECORDS SUMMARY | 2024-10-11 11:45 | XMS_ITS | Encounter Summary ---
Author Organization [employer] [facility] Address [address] [facility] 7t [place] [address] Care Team Providers Care Gettering Operator Name Role Phone Amna Urrutia Primary Care Provider [phone] Name, Everett ROSE Primary Care Provider [phone] Sahil Chen CNP Primary Care Provider [phone] Reason for Visit * Reason Onset Date Comments Med Refill 05/03/2023 Encounter Details Date Type Department Care Team ([facility] Contact Info) Description 05/03/2023 Refill [facility] [address] [place] [address] [phone] Amna Urrutia FNP 230 [place] [address] Type 1 diabetes mellitus with hyperglycemia ([facility]) Social History Tobacco [...] 11/27/2024 2:45 PM EDT Office Visit [facility] 230 [place] [address] Sahil Chen CNP 230 [place] [address] documented as of this encounter Visit Diagnoses Diagnosis Type 1 diabetes mellitus with hyperglycemia (CMS/HCC) documented in this encounter Additional Health Concerns Assessment Noted Time PHQ-9 Depression Total Score: 16 04/17/ 023 8:52 AM EDT documented as of this encounter Care Teams Gettering Operator Relationship Specialty Start Date End Date Amna Urrutia FNP 230 [place] [address] PCP - General Family Medicine 01/01/23 04/18/24 Name, MD Everett 230 [place], [place] [phone] PCP - General Internal Medicine 04/19/24 10/08/24 Sahil Chen CNP 230 [place] [address] PCP - General Family Medicine 10/09/24 Chris Pack Jr Psychometric ExaminerSorting Cows Worker 09/04/24 documented as of this encounter
--- OUTSIDE RECORDS SUMMARY | 2024-10-11 11:45 | XMS_ITS | Encounter Summary ---
Author Organization [employer] [facility] Address [address] [place] [address] 7 [place] [address] Care Team Providers Care Fur Repair Inspector Name Role Phone Amna Urrutia Primary Care Provider [phone] Name, Everett ROSE Primary Care Provider [phone] Sahil Chen CNP Primary Care Provider [phone] Reason for Visit * Reason Onset Date Comments Med Refill 04/29/2023 Encounter Details Date Type Department Care Team (Late Contact Info) Description 04/29/2023 Refill [facility] [address] [place] [phone] Sandra Leal MD [address] [place] [address] [phone] Social History Tobacco Use Types Packs/Day Years [...] Description 11/27/2024 2:45 PM EDT Office Visit [facility] [address] [place] [address] Sahil Chen CNP 230 [place], [place] [phone] documented as of this encounter Visit Diagnoses Not on filedocumented in this encounter Additional Health Concerns Assessment Noted Time PHQ-9 Depression Total Score: 16 023 8:52 AM EDT documented as of this encounter Care Teams Fur Repair Inspector Relationship Specialty Start Date End Date Amna Urrutia FNP 230 [place], [place] [phone] PCP - General Family Medicine 01/01/23 04/18/24 Everett Angulo MD 230 [place], [place] [phone] PCP - General Internal Medicine 04/19/24 10/08/24 Sahil Chen CNP 230 [place], [place] [phone] PCP - General Family Medicine 10/09/24 Chris Pack Jr Used Car Lot PorterBucket Turner 09/04/24 documented as of this encounter
--- OUTSIDE RECORDS SUMMARY | 2024-10-11 11:45 | XMS_ITS | Encounter Summary ---
Author Organization [employer] Address [address] [facility] 7t [place] [address] Care Team Providers Care Music Rehabilitation Therapist Name Role Phone Amna Urrutia Primary Care Provider [phone] Name, Everett ROSE Primary Care Provider [phone] Sahil Chen CNP Primary Care Provider [phone] Reason for Visit * Reason Onset Date Comments Med Refill 05/01/2023 Encounter Details Date Type Department Care Team ([facility] Contact Info) Description 05/01/2023 Refill [facility] [address] [place] [address] [phone] Lakshmi Womack FNP [address] [place], [place] [phone] Type 1 diabetes mellitus with hyperglycemia ([facility]) Social History Tobacco Use Types Packs/Day [...] Upcoming Encounters Date Type Department Care Team ([facility] Contact Info) Description 11/27/2024 2:45 PM EDT Office Visit [facility] [address] [place] [address] [phone] Sahil Chen CNP [address] [place] [address] documented as of this encounter Visit Diagnoses Diagnosis Type 1 diabetes mellitus with hyperglycemia (CMS/HCC) documented in this encounter Additional Health Concerns Assessment Noted Time PHQ-9 Depression Total Score: 16 04/17/ 023 8:52 AM EDT documented as of this encounter Care Teams Music Rehabilitation Therapist Relationship Specialty Start Date End Date Amna Urrutia FNP 230 [place] [address] PCP - General Family Medicine 01/01/23 04/18/24 NameEverett MD 230 [place], [place] [phone] PCP - General Internal Medicine 04/19/24 10/08/24 Sahil Chen CNP [address] [place] [address] PCP - General Family Medicine 10/09/24 Chris Pack Jr Receiving LeadExhaust And Muffler Repairer 09/04/24 documented as of this encounter
--- OUTSIDE RECORDS SUMMARY | 2024-10-11 11:45 | XMS_ITS | Encounter Summary ---
Author Organization [employer] [facility] Address [address] [place] [address] 7 [place] [address] Care Team Providers Care Mva Operator Name Role Phone Amna Urrutia Primary Care Provider [phone] Name, Everett ROSE Primary Care Provider [phone] Sahil Chen CNP Primary Care Provider [phone] Reason for Visit * Reason Onset Date Comments Med Refill 05/01/2023 Encounter Details Date Type Department Care Team (Late Contact Info) Description 05/01/[address] [facility] [address] [place] [phone] Sandra Leal MD [address] [place] [address] [phone] Social History Tobacco Use Types Packs/Day Years [...] Description 11/27/2024 2:45 PM EDT Office Visit [facility] [address] [place] [phone] Sahil Chen CNP [address] [place], [place] [phone] documented as of this encounter Visit Diagnoses Not on filedocumented in this encounter Additional Health Concerns Assessment Noted Time PHQ-9 Depression Total Score: 16 023 8:52 AM EDT documented as of this encounter Care Teams Mva Operator Relationship Specialty Start Date End Date Amna Urrutia FNP 230 [place], [place] [phone] PCP - General Family Medicine 01/01/23 04/18/24 Everett Angulo MD 230 [place], [place] [phone] PCP - General Internal Medicine 04/19/24 10/08/24 Sahil Chen CNP [address] [place], [place] [phone] PCP - General Family Medicine 10/09/24 Chris Pack Jr Machine Coil AssemblerSkein Dyer 09/04/24 documented as of this encounter
== END 2024-10-11 13:47 | disposition left against medical advice (07) ==
PROVIDERS: Emergency Provider Emergency Medicine
DX: R10.2 Pelvic and perineal pain (principal)

== ENCOUNTER 2024-10-11 17:45 | Emergency (ER) | payer MEDICAID, SELFPAY ==
--- NOTE | ~2024-10-11 | CT_ITS ---
CLINICAL HISTORY: left flank pain CT abdomen and pelvis without contrast Comparison: CT/SR - CT ABDOMEN PELVIS W IV CON - 09/01/24 10:06 EST Findings: The lung bases are clear. Unremarkable gallbladder and solid organs. No urolithiasis. Focally prominent fluid-filled loops of small bowel in the inferior abdomen, possibly enteritis. The appendix is surgically absent. No acute fracture. IMPRESSION: Focally prominent fluid-filled loops of small bowel in the inferior abdomen, possibly mild enteritis. No CT findings to account for left flank pain. This document has been electronically signed by: Fritz Douglass MD, PHD on 10/11/2024 23:08:18
--- NOTE | 2024-10-11 17:52 | ECG_ITS ---
Test Reason : chest pain Blood Pressure : */* mmHG Vent. Rate : 100 BPM Atrial Rate : 100 BPM P-R Int : 126 ms QRS Dur : 86 ms QT Int : 320 ms P-R-T Axes : -21 -5 7 degrees QTcB Int : 412 ms Normal sinus rhythm cannot exclude Inferior infarct , age undetermined ; Abnormal ECG When compared with ECG of 01-Sep-2024 10:25, Inferior infarct is now Present Referred By: Generic ED Physician Electronically Signed By: ABIODUN BENSON
[2024-10-11 17:54] VITALS: BP 134/71; BP 144/86; PULSE 78; PULSE 98; RESP 22; TEMP 36.8; O2SAT 99; BMI 18.3
--- NOTE | 2024-10-11 17:55 | ED.GENADULT ---
HPI - General Adult General Chief complaint: Nausea/Vomiting/Diarrhea Stated complaint: N/V x 2 days, left ama this morning Time Seen by Provider: 10/11/24 22:03 Source: patient, RN notes reviewed and old records reviewed Mode of arrival: ambulatory Limitations: no limitations History of Present Illness ED Provider: Demetria HPI narrative: 29-year-old male past medical history significant for type 1 diabetes, GERD, gastroparesis presents for evaluation of nausea and vomiting Patient reports severe left-sided abdominal pain for the last 2 days pain He reports associated nausea and vomiting. His pain is 10/10, stabbing pain His pain is worse with any kind of movement. He reports he was vomiting bile but denies blood, black or bloody stool. He reports subjective chills but denies fevers. He reports he has not been smoking marijuana for several weeks No other complaints or concerns at this time Related Data Home Medications ?Medication ?Instructions ?Recorded ?Confirmed pantoprazole 40 mg tablet,delayed 40 mg PO DAILY@0630 12/19/22 06/01/23 release (Protonix) promethazine 25 mg tablet 25 mg PO TID PRN nausea/vomiting 01/23/23 06/01/23 acetaminophen 500 mg tablet 500 mg PO Q6H PRN 04/09/24 Previous Rx's ?Medication ?Instructions ?Recorded ondansetron 4 mg disintegrating 4 mg PO DAILY PRN nausea and 02/23/24 tablet vomiting 5 days #14 tabs glucagon 3 mg/actuation nasal 3 mg intranasal BID PRN 03/28/24 spray (Baqsimi) unresponsive hypoglycemia 30 days #2 ea insulin aspart U-100 100 unit/mL 1 sliding scale dose subcut TID 30 03/28/24 (3 mL) subcutaneous pen (Novolog days #9 mL FlexPen U-100 Insulin aspart) albuterol sulfate 90 mcg/actuation 2 puff inhalation QID PRN 04/13/24 aerosol inhaler shortness of breath or wheezing #6.7 grams cyclobenzaprine 10 mg tablet 10 mg PO TID #10 tabs 05/07/24 gabapentin 100 mg capsule 100 mg PO TID #30 caps 05/07/24 acetone (urine) test (Ketone Urine #25 ea 06/19/24 Test strips) blood-glucose meter,continuous #1 ea 06/19/24 (Dexcom G7 Leasing Representative) blood-glucose sensor (Dexcom G7 #6 ea 06/19/24 Sensor device) glucagon 3 mg/actuation nasal 3 mg intranasal ONCE PRN 06/19/24 spray (Baqsimi) unresponsive hypoglycemia 30 days #2 ea insulin degludec 200 unit/mL (3 20 unit (0.1 mL) subcut DAILY 30 10/11/24 mL) subcutaneous pen (Tresi days #6 mL FlexTouch U-200 insulin) ondansetron 4 mg disintegrating 4 mg PO Q8H PRN nausea and 10/11/24 tablet vomiting #20 tabs Allergies Allergy/AdvReac Type Severity Reaction Status Date / Time diphenhydramine Allergy Anaphylaxis Verified 10/11/24 17:59 [From Benadryl] haloperidol [From Haldol] Allergy Difficulty Verified 09/09/24 16:06 Swallowing lorazepam [From Ativan] AdvReac Difficulty Verified 09/09/24 16:06 Breathing metoclopramide [From Reglan] AdvReac Anxiety Verified 09/09/24 16:06 Review of Systems Constitutional: Constitutional: Reports as per HPI, Denies chills and Denies fatigue Cardiovascular: Cardiovascular: Denies dyspnea Respiratory: Respiratory: Denies cough and Denies dyspnea Gastrointestinal: Gastrointestinal: Denies abdominal pain, Denies constipation and Denies vomiting Genitourinary: Genitourinary: Denies dysuria Neurologic: Denies focal weakness Endocrine: Endocrine: Denies fatigue [facility] Past Medical History Medical History Abdominal pain Dental infection Colitis DKA (diabetic ketoacidosis) Hyperglycemia 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 type 1 Surgical History History of esophagogastroduodenoscopy (EGD) Family History Family History Paternal Grandmother Breast cancer Family/Other Brain cancer Social History Social History Household Members: Other Household Members Other:: cousin Housing: House Do you presently have visiting nurse or other home services: No Alcohol intake: current Alcohol intake frequency: holidays/special occasions only Patient Tobacco Use Status: Current everyday Tobacco user Tobacco use type: Cigarette Cigarette Packs Per Day: 0 Cigarettes Per Day: 0 Years Smoked: 10 Smoked in Last 30 Days: Yes e-Cigarette/Vaping Use: Never Used Second Hand Smoke Exposure: No Use of substances other than those prescribed or required for medical reasons: Yes Substance Use Type: Marijuana Advance Directives: No Advance Directives Information Provided: No service: No Current occupational status: employed 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 Physical Exam ED Vital Signs: Vital Signs - 24 hr 10/11/24 17:54 10/11/24 21:07 10/11/24 22:23 Temperature 98.3 F 98.9 F 98.2 F Pulse Rate 98 95 84 Respiratory Rate 22 H 18 16 Blood Pressure 134/71 118/72 134/77 Pulse Oximetry 99 97 100 Oxygen Delivery Method Room Air Room Air BMI result Body Mass Index 18.3 Const General: healthy appearing, comfortable, no acute distress, alert and awake Nutritional Appearance: well nourished Orientation/consciousness: patient oriented x3 HENMT Head: Yes normocephalic and Yes atraumatic Eyes Eyelids: Yes eyelids normal Conjunctivae: conjunctivae normal Sclerae: sclerae normal Corneas: corneas normal Pupils: Equal, round and reactive pupils present EOM: EOMs intact bilaterally Neck Neck: Yes full ROM Resp Effort & Inspection: normal respiratory effort, able to speak in complete sentences and not labored GI Inspection: No distended Palpation (GI): Soft to palpation, not firm, Tenderness to palpation present (GI) in the LLQ and in the LUQ, Guarding due to palpation present (GI) in the LLQ and in the LUQ and not rigid Skin General skin exam: elasticity normal Neuro General: patient oriented x3 Cranial nerves: Yes Equal, round and reactive pupils present and Yes Bilaterally intact EOM present Cognition (Neuro): normal cognition Extrem Other: Moving all extremities well without any obvious deformities Course Course Course Narrative: This is a rapid medical exam performed by Elisa Walden PA-C. 29-year-old male with a history of type 1 diabetes, prior DKA, anemia, presents with nausea vomiting x2 days. As the patient was arriving via EMS, he is now complaining of chest pain. We will be screening basic labs, POC glucose, beta hydroxy, trop, EKG. The patient is stable and can return to the waiting room pending his full medical assessment. Reevaluation(s) Reevaluation #1: Patient's workup significant for mild enteritis on CT scan. Discussed this with the patient. He has not been vomiting, able to tolerate p.o. we will discharge the patient home with Charmaine he will follow up with his outpatient providers. Time: 23:54 Medications Administered Discontinued Medications Generic Name Dose Route Start Last Admin Trade Name Johnq PRN Reason Stop Dose Admin Sodium Chloride 1,000 mls @ 999 mls/hr 10/11/24 22:15 10/11/24 22:34 Ns IV 10/11/24 23:15 999 mls/hr .Q1H1M JELENA Administration Morphine Sulfate 4 mg 10/11/24 22:08 10/11/24 22:34 Morphine Sulfate 4 Mg/Ml Cartridge IVPUSH 10/11/24 22:09 4 mg ONCE ONE Administration Protocol Ondansetron HCl 4 mg 10/11/24 22:08 10/11/24 22:34 Ondansetron Hcl 4 Mg/2 Ml Vial IVPUSH 10/11/24 22:09 4 mg ONCE ONE Administration Medical Decision Making Medical Decision Making [facility] Narrative: 29-year-old male with past medical history as documented above presents for evaluation of abdominal pain, nausea and vomiting. He does have a leukocytosis to 11.5 which could real reactive to his vomiting. Chemistries are significant for an elevated BUN to 25 with a normal creatinine 0.95, this is likely related to a mild degree of dehydration from his vomiting. There was no evidence of DKA, the patient's anion gap is within normal limits as this is carbon dioxide level random glucose is 136. No other significant chemistry abnormalities. Could also be related to an infectious process. Given his abdominal discomfort we will get a CT scan of the abdomen pelvis without contrast. His pain is mostly left-sided and left flank. Differential Diagnosis Differential Diagnoses: The differential diagnosis associated with the presentation includes Gastroparesis DKA Norovirus JAZMIN Dehydration Bowel obstruction less likely obstructive uropathy Lab Data [facility] Lab Attestation statement: I reviewed the patient's lab results. As above 10/11/24 18:29 10/11/24 18:29 Labs: Lab Results 10/11/24 10/11/24 Range/Units 18:08 18: WBC 11.5 H (4.8-10.8) X10*3/uL RBC 5.28 (4.60-5.80) X10*6/uL Hgb 13.7 L (14.0-18.0) g/dl Hct 40.4 L (42.0-52.0) % MCV 76.5 L (80.0-98.0) fL MCH 25.9 L (27.0-33.0) pg MCHC 33.9 (31.0-36.0) g/dl RDW 13.7 (11.0-16.0) % Plt Count 270 (160-400) X10*3/uL MPV 10.2 (9.4-12.4) fL Immature Gran % (Auto) 0.3 (0.0-0.4) % Neut % (Auto) 73.1 H (45-73) % Lymph % (Auto) 18.1 L (20-40) % [place] % (Auto) 7.8 (2-11) % Eos % (Auto) 0.3 (0-4) % Baso % (Auto) 0.4 (0-2) % Lymph # (Auto) 2.1 (1.2-4.9) X10*3/uL [place] # (Auto) 0.9 (0.1-1.2) X10*3/uL Eos # (Auto) 0.0 (0.0-0.4) X10*3/uL Baso # (Auto) 0.1 (0.0-0.2) X10*3/uL Abs Immat Gran (auto) 0.03 (0.00-0.03) X10*3/uL Absolute Neuts (auto) 8.4 H (2.0-8.3) x10*3/uL Absolute Nucleated RBC 0.000 (0.0-0.012) X10*3/uL Nucleated RBC % (auto) 0.0 (0.0-0.2) /100WBC Sodium 136 (135-145) mmol/L Potassium 3.9 (3.3-5.1) mmol/L Chloride 102 (96-108) mmol/L Carbon Dioxide 22 (22-29) mmol/L Anion Gap 16 (12-20) BUN 25 H (9-16) mg/dL Creatinine 0.95 (0.5-1.4) mg/dL Estim Creat Clear Calc 100.2 Estimated GFR > 60 POC Glucose 110 (60-115) mg/dL Random Glucose 136 H (60-115) mg/dL Calcium 10.3 H D (8.4-10.2) mg/dL Magnesium 2.0 (1.6-2.6) mg/dL Total Bilirubin 0.6 (0.0-1.0) mg/dL AST 18 (5-37) U/L ALT 14 (0-40) U/L Alkaline Phosphatase 83 (39-117) U/L Troponin I High Sens < 2.7 (<3.5-35.0) ng/L Total Protein 8.4 H (6.5-8.0) g/dL Albumin 4.5 (3.5-5.0) g/dL Beta-Hydroxybutyrate 0.41 H (0.02-0.27) mmol/L Influenza Type A (PCR) NEGATIVE (Negative) Influenza Type B (PCR) NEGATIVE (Negative) RSV RNA Qual (PCR) NEGATIVE (Negative) SARS-CoV-2 RNA (RT-PCR) NEGATIVE (Negative) Radiology Impression Discussion of test interpretation with radiology: I have reviewed the radiologist's reading. Radiologist Impression: Findings: The lung bases are clear. Unremarkable gallbladder and solid organs. No urolithiasis. Focally prominent fluid-filled loops of small bowel in the inferior abdomen, possibly enteritis. The appendix is surgically absent. No acute fracture. IMPRESSION: Focally prominent fluid-filled loops of small bowel in the inferior abdomen, possibly mild enteritis. No CT findings to account for left flank pain. This document has been electronically signed by: Fritz Douglass MD, PHD on 10/11/2024 23:08:18 Discharge Plan Discharge Clinical Impression: Enteritis Patient Disposition: Home, Self-Care Instructions: Enteritis (ED) Additional Instructions: Your workup showed a mild enteritis which is consistent with a stomach virus. Take Zofran as needed for nausea and vomiting. You may use Tylenol as needed for pain Follow-up with your primary doctor, return for new or worsening symptoms Prescriptions: New ondansetron 4 mg tablet,disintegrating 4 mg PO Q8H PRN (Reason: nausea and vomiting) Qty: 20 0RF No Action (DME) Dexcom G7 Sensor Device See Rx Instructions .ROUTE .MEDSUPPLY Qty: 6 6RF Rx Instructions: As directed every 10 days (DME) Dexcom G7 Leasing Representative Misc See Rx Instructions .ROUTE .MEDSUPPLY Qty: 1 1RF Rx Instructions: As directed (DME) Ketone Urine Test Strip See Rx Instructions .ROUTE .MEDSUPPLY Qty: 25 3RF Rx Instructions: As directed prn glucose over 250, nausea/vomiting tid Baqsimi 3 mg/actuation spray,non-aerosol 3 mg intranasal ONCE MDD 6mg may repeat in 15 minutes PRN (Reason: unresponsive hypoglycemia) 30 Days Qty: 2 1RF insulin degludec [Tresiba FlexTouch U-200] 200 unit/mL (3 mL) insulin pen 20 unit subcut DAILY 30 Days Qty: 6 2RF pantoprazole [Protonix] 40 mg tablet,delayed release (DR/EC) 40 mg PO DAILY@0630 promethazine 25 mg tablet 25 mg PO TID PRN (Reason: nausea/vomiting) ondansetron 4 mg tablet,disintegrating 4 mg PO DAILY PRN (Reason: nausea and vomiting) 5 Days Qty: 14 0RF albuterol sulfate 90 mcg/actuation HFA aerosol inhaler 2 puff inhalation QID PRN (Reason: shortness of breath or wheezing) Qty: 6.7 0RF gabapentin 100 mg capsule 100 mg PO TID Qty: 30 0RF cyclobenzaprine 10 mg tablet 10 mg PO TID Qty: 10 0RF acetaminophen 500 mg tablet 500 mg PO Q6H PRN insulin aspart U-100 [Novolog FlexPen U-100 Insulin] 100 unit/mL (3 mL) insulin pen 1 sliding scale dose subcut TID 30 Days Qty: 9 3RF Rx Instructions: 1 sliding scale dose subcutaneously; 1 unit for every 35 points over 135, 1:15 ratio (uses approx 20-25 units daily) Baqsimi 3 mg/actuation spray,non-aerosol 3 mg intranasal BID MDD 6mg PRN (Reason: unresponsive hypoglycemia) 30 Days Qty: 2 1RF Rx Instructions: P.R.N. for unresponsive hypoglycemia. Check to see if patient breathing and pulse, initiate CPR if needed. Call 911. Use when patient can not self treat low sugar. Dodson once, position lying on the side, repeat again in 15 minutes. Print Language: American
[2024-10-11 18:12] LABS: Glucose, Whole Blood 110 mg/dL (60-115)
--- OUTSIDE RECORDS SUMMARY | 2024-10-11 18:30 | XMS_ITS | Encounter Summary ---
Author Organization [employer] Address [address] [facility] 7t [place] [address] Care Team Providers Care Roof Cement And Paint Maker Helper Name Role Phone Amna Urrutia Primary Care Provider [phone] Adele, Everett ROSE Primary Care Provider [phone] Sahil Chen CNP Primary Care Provider [phone] Reason for Visit * Reason Comments Med Refill Encounter Details Date Type Department Care Team ([facility] st Contact Info) Description 09/11/2023 Refill [facility] [address] [place] [address] Amna Urrutia FNP [address] [place] [address] Type 1 diabetes mellitus with hyperglycemia ([facility]) Social History Tobacco Use Types Packs/Day Years [...] 11/27/2024 2:45 PM EDT Office Visit [facility] [address] [place] [phone] Sahil Chen CNP [address] [place] [address] documented as of this encounter Visit Diagnoses Diagnosis Type 1 diabetes mellitus with hyperglycemia (CMS/HCC) documented in this encounter Additional Health Concerns Assessment Noted Time PHQ-9 Depression Total Score: 16 023 8:52 AM EDT documented as of this encounter Care Teams Roof Cement And Paint Maker Helper Relationship Specialty Start Date End Date Amna Urrutia FNP [address] [place] [phone] PCP - General Family Medicine 01/01/23 04/18/24 Everett Angulo MD [address] [place] [address] [phone] PCP - General Internal Medicine 04/19/24 10/08/24 Sahil Chen CNP [address] [place] [address] [phone] PCP - General Family Medicine 10/09/24 Chris Pack Jr Photolith OperatorForeign Language Stenographer 09/04/24 documented as of this encounter
--- OUTSIDE RECORDS SUMMARY | 2024-10-11 18:30 | XMS_ITS | Encounter Summary ---
Author Organization [employer] Address 75 [facility] 7t [place] [address] Care Team Providers Care Turret Punch Press Operator Name Role Phone Amna Urrutia Primary Care Provider [phone] Adele, Everett ROSE Primary Care Provider Sahil Chen CNP Primary Care Provider [phone] Reason for Visit * Reason Onset Date Comments Med Refill 07/17/2023 Encounter Details Date Type Department Care Team (Late st Contact Info) Description 07/17/2023 Refill [facility] [address] [place] [address] Sandra Leal MD [address] [place] [address] Social History Tobacco Use Types Packs/Day Years [...] Description 11/27/2024 2:45 PM EDT Office Visit [facility] [address] [place] [address] Sahil Chen CNP [address] [place] [address] documented as of this encounter Visit Diagnoses Not on filedocumented in this encounter Additional Health Concerns Assessment Noted Time PHQ-9 Depression Total Score: 16 023 8:52 AM EDT documented as of this encounter Care Teams Turret Punch Press Operator Relationship Specialty Start Date End Date Amna Urrutia FNP [address] [place] [phone] PCP - General Family Medicine 01/01/23 04/18/24 Everett Angulo MD [address] [place] [phone] PCP - General Internal Medicine 04/19/24 10/08/24 Sahil Chen CNP [address] [place] [phone] PCP - General Family Medicine 10/09/24 Chris Pack Jr Tail Board ManDelivery Of Shopping News 09/04/24 documented as of this encounter
--- OUTSIDE RECORDS SUMMARY | 2024-10-11 18:30 | XMS_ITS | Encounter Summary ---
Author Organization [employer] Address 75 [facility] 7t [place] [address] Care Team Providers Care Professional Benefits Sales Consultant Name Role Phone Amna Urrutia Primary Care Provider [phone] Adele, Everett ROSE Primary Care Provider [phone] Sahil Chen CNP Primary Care Provider [phone] Reason for Visit * Reason Onset Date Comments Med Refill 07/15/2023 Encounter Details Date Type Department Care Team ([facility] st Contact Info) Description 07/15/2023 Refill [facility] [address] [place], [place] [phone] Amna Urrutia FNP [address] [place] [address] Social History Tobacco Use Types Packs/Day Years [...] 2:45 PM EDT Office Visit [facility] [address] [place] [address] Sahil Chen CNP [address] [place], [place] [phone] documented as of this encounter Visit Diagnoses Not on filedocumented in this encounter Additional Health Concerns Assessment Noted Time PHQ-9 Depression Total Score: 16 023 8:52 AM EDT documented as of this encounter Care Teams Professional Benefits Sales Consultant Relationship Specialty Start Date End Date Amna Urrutia FNP [address] [place] [phone] PCP - General Family Medicine 01/01/23 04/18/24 Everett Angulo MD [address] [place] [address] [phone] PCP - General Internal Medicine 04/19/24 10/08/24 Sahil Chen CNP [address] [place] [address] [phone] PCP - General Family Medicine 10/09/24 Chris Pack Jr Health And Safety AdvisorMental Health Case Manager 09/04/24 documented as of this encounter
--- OUTSIDE RECORDS SUMMARY | 2024-10-11 18:30 | XMS_ITS | Encounter Summary ---
Author Organization [employer] Address [address] [facility] 7t [place] [address] Care Team Providers Care City Library Director Name Role Phone Amna Urrutia Primary Care Provider [phone] Name, Everett ROSE Primary Care Provider [phone] Sahil Chen CNP Primary Care Provider [phone] Reason for Visit * Reason Onset Date Comments Med Refill 07/17/2023 Encounter Details Date Type Department Care Team (Late st Contact Info) Description 07/17/[address] [facility] [address] [place] [address] Amna Urrutia FNP [address] [place] [address] Social History Tobacco Use Types Packs/Day Years [...] 11/27/2024 2:45 PM EDT Office Visit [facility] [address] [place] [address] Sahil Chen CNP [address] [place] [address] documented as of this encounter Visit Diagnoses Not on filedocumented in this encounter Additional Health Concerns Assessment Noted Time PHQ-9 Depression Total Score: 16 023 8:52 AM EDT documented as of this encounter Care Teams City Library Director Relationship Specialty Start Date End Date Amna Urrutia FNP [address] [place] [phone] PCP - General Family Medicine 01/01/23 04/18/24 Everett Angulo MD [address] [place] [phone] PCP - General Internal Medicine 04/19/24 10/08/24 Sahil Chen CNP [address] [place] [phone] PCP - General Family Medicine 10/09/24 Chris Pack Jr Food Service Order ClerkResearch Interviewer 09/04/24 documented as of this encounter
--- OUTSIDE RECORDS SUMMARY | 2024-10-11 18:30 | XMS_ITS | Encounter Summary ---
Author Organization [employer] Address 75 [facility] 7t [place] [address] Care Team Providers Care Deputy General Counsel Name Role Phone Amna Urrutia Primary Care Provider [phone] Everett Angulo MD Primary Care Provider [phone] Sahil Chen CNP Primary Care Provider [phone] Reason for Visit * Reason Onset Date Comments Med Refill 07/28/2023 Encounter Details Date Type Department Care Team (Late st Contact Info) Description 07/28/2023 Refill [facility] [address] [place], [place] [phone] Denice Rubin MD [address] [place], [place] [phone] Social History Tobacco Use Types Packs/Day Years [...] 11/27/2024 2:45 PM EDT Office Visit [facility] [address] [place] [address] Sahil Chen CNP [address] [place] [address] documented as of this encounter Visit Diagnoses Not on filedocumented in this encounter Additional Health Concerns Assessment Noted Time PHQ-9 Depression Total Score: 16 023 8:52 AM EDT documented as of this encounter Care Teams Deputy General Counsel Relationship Specialty Start Date End Date Amna Urrutia FNP [address] [place] [address] PCP - General Family Medicine 01/01/23 04/18/24 Everett Angulo MD [address] [place] [phone] PCP - General Internal Medicine 04/19/24 10/08/24 Sahil Chen CNP [address] [place] [phone] PCP - General Family Medicine 10/09/24 Chris Pack Jr Child & Adolescent PsychiatristNatural Gas Inspector 09/04/24 documented as of this encounter
--- OUTSIDE RECORDS SUMMARY | 2024-10-11 18:30 | XMS_ITS | Encounter Summary ---
Author Organization [employer] Address [address] [facility] [address] 7[address] [place] [address] Care Team Providers Care Education Diagnostician Name Role Phone Amna Urrutia Primary Care Provider [phone] Adele, Everett ROSE Primary Care Provider [phone] Sahil Chen CNP Primary Care Provider [phone] Encounter Details Date Type Department Care Team (Late st Contact Info) Description 06/28/2023 Orders Only [facility] [address] [place], [place] [phone] Santos Mueller MD [address] [place] [address] Social History Tobacco Use Types Packs/Day Years [...] Office Visit [facility] [address] [place] [address] Sahil Chen CNP [address] [place] [address] documented as of this encounter Visit Diagnoses Not on filedocumented in this encounter Additional Health Concerns Assessment Noted Time PHQ-9 Depression Total Score: 16 023 8:52 AM EDT documented as of this encounter Care Teams Education Diagnostician Relationship Specialty Start Date End Date Amna Urrutia FNP [address] [place], [place] [phone] PCP - General Family Medicine 01/01/23 04/18/24 Everett Angulo MD [address] [place] [phone] PCP - General Internal Medicine 04/19/24 10/08/24 Sahil Chen CNP [address] [place], [place] [phone] PCP - General Family Medicine 10/09/24 Chris Pack Jr Instructional Services LibrarianManager Strategy 09/04/24 documented as of this encounter
--- OUTSIDE RECORDS SUMMARY | 2024-10-11 18:30 | XMS_ITS | Encounter Summary ---
Author Organization [employer] Address 75 [facility] 7t [place] [address] Care Team Providers Care Information Architect Name Role Phone Amna Urrutia Primary Care Provider [phone] Adele, Everett ROSE Primary Care Provider [phone] Sahil Chen CNP Primary Care Provider [phone] Reason for Visit * Reason Onset Date Comments Appointment Request 09/08/2023 Encounter Details Date Type Department Care Team ([facility] st Contact Info) Description 09/08/2023 Telephone [facility] MED[facility]INE [address] [place] [address] Amna Urrutia FNP 230 [place] [address] Appointment Request Social History Tobacco Use Types [...] to reschedule missed appt on 09/06 however principal technical writer was not able to offer apptdue to the provider did not have any availably documented in this encounter Plan of Treatment Upcoming Encounters Date Type Department Care Team (Late st Contact Info) Description 11/27/2024 2:45 PM EDT Office Visit [facility] MED[facility]INE [address] [place], [place] [phone] Sahil Chen CNP 230 [place] [address] documented as of this encounter Visit Diagnoses Not on filedocumented in this encounter Additional Health Concerns Assessment Noted Time PHQ-9 Depression Total Score: 16 023 8:52 AM EDT documented as of this encounter Care Teams Information Architect Relationship Specialty Start Date End Date Amna Urrutia FNP 230 [place], [place] [phone] PCP - General Family Medicine 01/01/23 04/18/24 Everett Angulo MD 230 [place] [address] PCP - General Internal Medicine 04/19/24 10/08/24 Sahil Chen CNP [address] [place] [address] PCP - General Family Medicine 10/09/24 Chris Pack Jr Sports NutritionistMedical Assembly 09/04/24 documented as of this encounter
--- OUTSIDE RECORDS SUMMARY | 2024-10-11 18:30 | XMS_ITS | Encounter Summary ---
Author Organization [employer] Address 75 [facility] 7t [place] [address] Care Team Providers Care Loan Officer Assistant Name Role Phone Amna Urrutia Primary Care Provider [phone] Adele, Everett ROSE Primary Care Provider [phone] Sahil Chen CNP Primary Care Provider [phone] Reason for Visit * Reason Comments Med Refill Encounter Details Date Type Department Care Team ([facility] st Contact Info) Description 05/30/2023 Refill [facility] MED[facility] [address] [place] [address] Amna Urrutia FNP [address] [place] [address] Social History Tobacco Use Types Packs/Day Years [...] Description 11/27/2024 2:45 PM EDT Office Visit [facility] [address] [place] [address] Sahil Chen CNP 230 [place] [address] documented as of this encounter Visit Diagnoses Not on filedocumented in this encounter Additional Health Concerns Assessment Noted Time PHQ-9 Depression Total Score: 16 023 8:52 AM EDT documented as of this encounter Care Teams Loan Officer Assistant Relationship Specialty Start Date End Date Amna Urrutia FNP [address] [place] [address] PCP - General Family Medicine 01/01/23 04/18/24 Everett Angulo MD [address] [place] [address] PCP - General Internal Medicine 04/19/24 10/08/24 Sahil Chen CNP [address] [place] [address] PCP - General Family Medicine 10/09/24 Chris Pack Jr Scrap Preparation SupervisorDigital Forensics Investigator 09/04/24 documented as of this encounter
--- OUTSIDE RECORDS SUMMARY | 2024-10-11 18:30 | XMS_ITS | Encounter Summary ---
Author Organization [employer] Address 75 [facility] 7t [place] [address] Care Team Providers Care Swimming Pool Installer Name Role Phone Amna Urrutia Primary Care Provider [phone] Adele, Everett ROSE Primary Care Provider [phone] Sahil Chen CNP Primary Care Provider [phone] Reason for Visit * Reason Comments Med Refill Encounter Details Date Type Department Care Team ([facility] st Contact Info) Description 10/04/2023 Refill [facility] MEDICINE [address] [place] [address] Amna Urrutia FNP [address] [place] [address] Type 1 diabetes mellitus with hyperglycemia ([facility]) Social History Tobacco Use Types [...] Description 11/27/2024 2:45 PM EDT Office Visit [facility] MEDICINE [address] [place] [address] Sahil Chen CNP 230 [place] [address] documented as of this encounter Visit Diagnoses Diagnosis Type 1 diabetes mellitus with hyperglycemia (CMS/HCC) documented in this encounter Additional Health Concerns Assessment Noted Time PHQ-9 Depression Total Score: 16 023 8:52 AM EDT documented as of this encounter Care Teams Swimming Pool Installer Relationship Specialty Start Date End Date Amna Urrutia FNP [address] [place] [address] PCP - General Family Medicine 01/01/23 04/18/24 Everett Angulo MD [address] [place] [address] PCP - General Internal Medicine 04/19/24 10/08/24 Sahil Chen CNP [address] [place] [address] PCP - General Family Medicine 10/09/24 Chris Pack Jr Rheostat AssemblerAsphalt Plant Operator 09/04/24 documented as of this encounter
--- OUTSIDE RECORDS SUMMARY | 2024-10-11 18:30 | XMS_ITS | Encounter Summary ---
Author Organization [employer] Address 75 [facility] 7t [place] [address] Care Team Providers Care Carpenter'S Helper Name Role Phone Amna Urrutia Primary Care Provider [phone] dAele, Everett ROSE Primary Care Provider [phone] Sahil Chen CNP Primary Care Provider [phone] Reason for Visit * Reason Comments Med Refill Encounter Details Date Type Department Care Team ([facility] st Contact Info) Description 09/08/2023 Refill [facility] MEDICINE [address] [place] [address] Amna Urrutia FNP 230 [place] [address] Type 1 diabetes mellitus with hyperglycemia ([facility]) Social History Tobacco Use Types Packs/Day [...] Description 11/27/2024 2:45 PM EDT Office Visit [facility] MEDICINE [address] [place] [address] Sahil Chen CNP 230 [place] [address] documented as of this encounter Visit Diagnoses Diagnosis Type 1 diabetes mellitus with hyperglycemia (CMS/HCC) documented in this encounter Additional Health Concerns Assessment Noted Time PHQ-9 Depression Total Score: 16 023 8:52 AM EDT documented as of this encounter Care Teams Carpenter'S Helper Relationship Specialty Start Date End Date Amna Urrutia FNP [address] [place] [address] PCP - General Family Medicine 01/01/23 04/18/24 Everett Angulo MD [address] [place] [address] [phone] PCP - General Internal Medicine 04/19/24 10/08/24 Sahil Chen CNP [address] [place] [address] [phone] PCP - General Family Medicine 10/09/24 Chris Pack Jr Electric Range PreparerRewinder Operator 09/04/24 documented as of this encounter
--- OUTSIDE RECORDS SUMMARY | 2024-10-11 18:30 | XMS_ITS | Encounter Summary ---
Author Organization [employer] Address 75 [facility] 7t [place] [address] Care Team Providers Care Vtc Technician Name Role Phone Amna Urrutia Primary Care Provider [phone] Name, Everett ROSE Primary Care Provider [phone] Sahil Chen CNP Primary Care Provider [phone] Reason for Visit * Reason Onset Date Comments Med Refill 07/28/2023 Encounter Details Date Type Department Care Team (Late st Contact Info) Description 07/28/2023 Refill [facility] MEDICINE 230 [place] [address] Amna Urrutia FNP [address] [place] [address] Social History Tobacco Use Types Packs/Day Years [...] Description 11/27/2024 2:45 PM EDT Office Visit [facility]INE [address] [place] [address] Sahil Chen CNP 230 [place] [address] documented as of this encounter Visit Diagnoses Not on filedocumented in this encounter Additional Health Concerns Assessment Noted Time PHQ-9 Depression Total Score: 16 023 8:52 AM EDT documented as of this encounter Care Teams Vtc Technician Relationship Specialty Start Date End Date Amna Urrutia FNP [address] [place] [address] PCP - General Family Medicine 01/01/23 04/18/24 Everett Angulo MD [address] [place] [address] PCP - General Internal Medicine 04/19/24 10/08/24 Sahil Chen CNP [address] [place] [address] PCP - General Family Medicine 10/09/24 Chris Pack Jr Supervisor DrawingRisk Management Intern 09/04/24 documented as of this encounter
--- OUTSIDE RECORDS SUMMARY | 2024-10-11 18:30 | XMS_ITS | Clinical Summary ---
Author Organization [facility], Address [address] [place] [address] [place] [address] Phone Care Team Providers Care Behavioral Geneticist Name Role Phone Santos Mueller MD Primary Care Provider [phone] [phone] Active Allergy Reactions Criticality Noted Date [...] Documentation Only [facility] [address] [place] [address] Jessica Sprague 08/05/2024 Documentation Only [facility] [address] [place] [address] Jessica Sprague 08/05/2024 Documentation Only [facility] [address] [place] [address] Jessica Sprague from Last 3 [...] 05/28/2024 02/26/2024 Insurance MEDICAID [place] Care Teams Behavioral Geneticist Relationship Specialty Start Date End Date Santos Mueller MD 230 [place] [address] PCP - General Emergency Medicine 07/28/23
--- OUTSIDE RECORDS SUMMARY | 2024-10-11 18:30 | XMS_ITS | Encounter Summary ---
Author Organization [employer] Address 75 [facility] 7t [place] [address] Care Team Providers Care Helicopter Dispatcher Name Role Phone Name, Everett ROSE Primary Care Provider [phone] Sahil Chen CNP Primary Care Provider [phone] Encounter Details Date Type Department Care Team (Late st Contact Info) Description 04/21/2024 Orders Only [facility] [address] [place], [place] [phone] Amna Urrutia FNP 230 [facility] [place], [place] [phone] Social History Tobacco Use Types Packs/Day Years [...] Description 11/27/2024 2:45 PM EDT Office Visit [facility] MEDICINE [address] [place] [address] Sahil Chen CNP 230 [place] [address] documented as of this encounter Visit Diagnoses Not on filedocumented in this encounter Additional Health Concerns Assessment Noted Time PHQ-9 Depression Total Score: 20 024 2:42 PM EDT documented as of this encounter Care Teams Helicopter Dispatcher Relationship Specialty Start Date End Date Name, MD Everett [address] [place] [address] PCP - General Internal Medicine 04/19/24 10/08/24 Sahil Chen CNP [address] [place] [address] PCP - General Family Medicine 10/09/24 Chris Pack Jr Check ScalerFire Coordinator 09/04/24 documented as of this encounter
--- OUTSIDE RECORDS SUMMARY | 2024-10-11 18:30 | XMS_ITS | Encounter Summary ---
Author Organization [employer] Address 75 [facility] 7t [place] [address] Care Team Providers Care Pyroglazer Name Role Phone Amna Urrutia Primary Care Provider [phone] Name, Everett ROSE Primary Care Provider [phone] Sahil Chen CNP Primary Care Provider [phone] Reason for Visit * Reason Onset Date Comments Med Refill 09/27/2023 Encounter Details Date Type Department Care Team (Late st Contact Info) Description 09/27/2023 Refill [facility] MEDICINE 230 [place] [address] Amna Urrutia FNP 230 [place] [address] Type 1 diabetes mellitus with hyperglycemia ([facility]) Social History Tobacco Use Types [...] PM EDT Office Visit [facility] MEDICINE [address] [place] [address] Sahil Chne CNP 230 [place] [address] documented as of this encounter Visit Diagnoses Diagnosis Type 1 diabetes mellitus with hyperglycemia (CMS/HCC) documented in this encounter Additional Health Concerns Assessment Noted Time PHQ-9 Depression Total Score: 16 023 8:52 AM EDT documented as of this encounter Care Teams Pyroglazer Relationship Specialty Start Date End Date Amna Urrutia FNP [address] [place] [address] PCP - General Family Medicine 01/01/23 04/18/24 Everett Angulo MD [address] [place] [address] PCP - General Internal Medicine 04/19/24 10/08/24 Sahil Chen CNP [address] [place] [address] [phone] PCP - General Family Medicine 10/09/24 Chris Pack Jr Title AgentStrip Machine Operator 09/04/24 documented as of this encounter
--- OUTSIDE RECORDS SUMMARY | 2024-10-11 18:30 | XMS_ITS | Encounter Summary ---
Author Organization [employer] Address 75 [facility] 7t [place] [address] Care Team Providers Care Temporary Help Agency Referral Clerk Name Role Phone Amna Urrutia Primary Care Provider [phone] Adele, Everett ROSE Primary Care Provider Sahil Chen CNP Primary Care Provider [phone] Reason for Visit * Reason Onset Date Comments Med Refill 07/15/2023 Encounter Details Date Type Department Care Team (Late st Contact Info) Description 07/15/2023 Refill [facility] MEDICINE 230 [place] [address] Sandra Leal MD 230 [place] [address] Social History Tobacco Use Types Packs/Day Years [...] Description 11/27/2024 2:45 PM EDT Office Visit [facility] MEDICINE [address] [place] [address] Sahil Chen CNP 230 [place] [address] documented as of this encounter Visit Diagnoses Not on filedocumented in this encounter Additional Health Concerns Assessment Noted Time PHQ-9 Depression Total Score: 16 023 8:52 AM EDT documented as of this encounter Care Teams Temporary Help Agency Referral Clerk Relationship Specialty Start Date End Date Amna Urrutia FNP [address] [place] [address] PCP - General Family Medicine 01/01/23 04/18/24 Everett Angulo MD [address] [place] [address] PCP - General Internal Medicine 04/19/24 10/08/24 Sahil Chen CNP [address] [place] [address] PCP - General Family Medicine 10/09/24 Chris Pack Jr Heel Washer Stringing Machine OperatorInstructor Hairspring 09/04/24 documented as of this encounter
--- OUTSIDE RECORDS SUMMARY | 2024-10-11 18:30 | XMS_ITS | Encounter Summary ---
Author Organization [employer] Address 75 [facility] 7t [place] [address] Care Team Providers Care Vending Machine Repairer Name Role Phone Amna Urrutia Primary Care Provider [phone] Adele, Everett ROSE Primary Care Provider [phone] Sahil Chen CNP Primary Care Provider [phone] Reason for Visit * Reason Onset Date Comments Reschedule 02/14/2024 Encounter Details Date Type Department Care Team ([facility] st Contact Info) Description 02/14/[address] [facility] MEDICINE [address] [place] [address] Amna Urrutia FNP 230 [place] [address] Reschedule Social History Tobacco Use Types Packs/Day [...] to reschedule 02/13 follow up extended appointment. Clerk Of Superior Court attempted to reschedule but no availability. Please contact pt at [phone] documented in this encounter Plan of Treatment Upcoming Encounters Date Type Department Care Team (Late st Contact Info) Description 11/27/2024 2:45 PM EDT Office Visit [facility] MEDICINE [address] [place] [address] Sahil Chen CNP [address] [place] [address] documented as of this encounter Visit Diagnoses Not on filedocumented in this encounter Additional Health Concerns Assessment Noted Time PHQ-9 Depression Total Score: 10 024 1:01 PM EDT documented as of this encounter Care Teams Vending Machine Repairer Relationship Specialty Start Date End Date Amna Urrutia FNP 230 [place] [address] PCP - General Family Medicine 01/01/23 04/18/24 Everett Angulo MD 230 [place], [place] [phone] PCP - General Internal Medicine 04/19/24 10/08/24 Sahil Chen CNP 230 [place], [place] [phone] PCP - General Family Medicine 10/09/24 Chris Pack Jr Radiographer TechnologistSem Manager 09/04/24 documented as of this encounter
--- OUTSIDE RECORDS SUMMARY | 2024-10-11 18:30 | XMS_ITS | Encounter Summary ---
Author Organization [employer] Address 75 [facility] 7t [place] [address] Care Team Providers Care Senior Solutions Workflow Consultant Name Role Phone Amna Urrutia Primary Care Provider [phone] Adele, Everett ROSE Primary Care Provider [phone] Sahil Chen CNP Primary Care Provider [phone] Reason for Visit * Reason Onset Date Comments Nurse Triage 05/30/2023 Encounter Details Date Type Department Care Team (Late st Contact Info) Description 05/30/2023 Telephone [facility] MEDICINE 230 [place] [address] Amna Urrutia FNP 230 [place] [address] Nurse Triage Social History Tobacco Use Types [...] obtain discharge summary for patient seen at [facility] 05/29/23 following head injury at work. Scheduled for follow up below Future Appointments Date Time Provider Department Center 05/31/2023 11:30 AM Denice Rubin MD [facility] * Telephone Encounter - Marline Vega RN - 05/30/2023 1:27 PM EDT Call to Bradford Torres, reports having been seen at [facility] 05/29 due to concussion that occurred [...] Center 05/31/2023 11:30 AM Denice Rubin MD [facility] Video visit offer not recorded [...] and states is still in pain ( insurance underwriter was un able to take all details information due to call hanging up ) . Patient advised will forward to triage nursefor follow up. documented in this encounter Plan of Treatment Upcoming Encounters Date Type Department Care Team (Late st Contact Info) Description 11/27/2024 2:45 PM EDT Office Visit [facility] MEDICINE 230 [place] [address] Sahil Chen CNP [address] [place] [address] documented as of this encounter Visit Diagnoses Not on filedocumented in this encounter Additional Health Concerns Assessment Noted Time PHQ-9 Depression Total Score: 16 023 8:52 AM EDT documented as of this encounter Care Teams Senior Solutions Workflow Consultant Relationship Specialty Start Date End Date Amna Urrutia FNP [address] [place] [address] PCP - General Family Medicine 01/01/23 04/18/24 Name, MD Everett [address] [place] [address] [phone] PCP - General Internal Medicine 04/19/24 10/08/24 Sahil Chen CNP 230 [place] [address] PCP - General Family Medicine 10/09/24 Chris Pack Jr Concrete Fence BuilderFloor Representative 09/04/24 documented as of this encounter
--- OUTSIDE RECORDS SUMMARY | 2024-10-11 18:30 | XMS_ITS | Encounter Summary ---
Author Organization [facility] Address [address] [place] [address] Phone Care Team Providers Care Technical Editor Name Role Phone Santos Mueller MD Primary Care Provider [phone] Encounter Details Date Type Department Care Team (Late st Contact Info) Description 07/28/2023 Documentation Only [facility] [place], [address] [place] [address] Santos Mueller MD 230 [place] [address] Social History Tobacco Use Types [...] on filedocumented in this encounter Care Teams Technical Editor Relationship Specialty Start Date End Date Santos Mueller MD [address] [place] [address] PCP - General Emergency Medicine 07/28/23 documented as of this encounter
--- OUTSIDE RECORDS SUMMARY | 2024-10-11 18:30 | XMS_ITS | Encounter Summary ---
Author Organization [employer] Address 75 [facility] 7t [place] [address] Care Team Providers Care Operations Support Specialist Name Role Phone Name, Everett ROSE Primary Care Provider [phone] Sahil Chen CNP Primary Care Provider [phone] Reason for Visit * Reason Comments Med Refill Encounter Details Date Type Department Care Team (Late st Contact Info) Description 05/03/2024 Refill [facility] 230 [place], [place] [phone] Amna Urrutia FNP 230 [place], [place] [phone] Type 1 diabetes mellitus with hyperglycemia (CMS/HCC) [...] Description 11/27/2024 2:45 PM EDT Office Visit [facility] MED[facility]INE 230 [place] [address] Sahil Chen CNP 230 [place] [address] documented as of this encounter Visit Diagnoses Diagnosis Type 1 diabetes mellitus with hyperglycemia (CMS/HCC) documented in this encounter Additional Health Concerns Assessment Noted Time PHQ-9 Depression Total Score: 20 024 2:42 PM EDT documented as of this encounter Care Teams Operations Support Specialist Relationship Specialty Start Date End Date Name, MD Everett [address] [place] [address] PCP - General Internal Medicine 04/19/24 10/08/24 Sahil Chen CNP 230 [place], [place] [phone] PCP - General Family Medicine 10/09/24 Chris Pack Jr Mac ArtistTire Repair Mechanic 09/04/24 documented as of this encounter
--- OUTSIDE RECORDS SUMMARY | 2024-10-11 18:30 | XMS_ITS | Encounter Summary ---
Author Organization [employer] Address 75 [facility] 7t [place] [address] Care Team Providers Care Barn Manager Name Role Phone Amna Urrutia Primary Care Provider [phone] Adele, Everett ROSE Primary Care Provider [phone] Sahil Chen CNP Primary Care Provider [phone] Reason for Visit * Reason Onset Date Comments Med Refill 05/30/2023 Encounter Details Date Type Department Care Team (Late st Contact Info) Description 05/30/2023 Refill [facility] MEDICINE 230 [place] [address] Amna Urrutia FNP [address] [place] [address] Social History Tobacco Use Types Packs/Day Years [...] Description 11/27/2024 2:45 PM EDT Office Visit [facility] MEDICINE [address] [place] [address] Sahil Chen CNP 230 [place] [address] documented as of this encounter Visit Diagnoses Not on filedocumented in this encounter Additional Health Concerns Assessment Noted Time PHQ-9 Depression Total Score: 16 023 8:52 AM EDT documented as of this encounter Care Teams Barn Manager Relationship Specialty Start Date End Date Amna Urrutia FNP [address] [place] [address] PCP - General Family Medicine 01/01/23 04/18/24 Everett Angulo MD [address] [place] [address] PCP - General Internal Medicine 04/19/24 10/08/24 Sahil Chen CNP [address] [place] [address] PCP - General Family Medicine 10/09/24 Chris Pack Jr Customer Service TellerTile Molder Hand 09/04/24 documented as of this encounter
--- OUTSIDE RECORDS SUMMARY | 2024-10-11 18:31 | XMS_ITS | Encounter Summary ---
Author Organization [employer] [facility] Address [address] [place] [address] 7 [place] [address] Care Team Providers Care Center Director Name Role Phone Amna Urrutia Primary Care Provider [phone] Name, Everett ROSE Primary Care Provider [phone] Sahil Chen CNP Primary Care Provider [phone] Reason for Visit * Reason Onset Date Comments Med Refill 04/29/2023 Encounter Details Date Type Department Care Team (Late Contact Info) Description 04/29/2023 Refill [facility] [address] [place] [phone] Sandra Leal MD [address] [place] [address] [phone] Social History Tobacco Use Types Packs/Day Years [...] Description 11/27/2024 2:45 PM EDT Office Visit [facility] [address] [place] [address] Sahil Chen CNP [address] [place], [place] [phone] documented as of this encounter Visit Diagnoses Not on filedocumented in this encounter Additional Health Concerns Assessment Noted Time PHQ-9 Depression Total Score: 16 023 8:52 AM EDT documented as of this encounter Care Teams Center Director Relationship Specialty Start Date End Date Amna Urrutia FNP [address] [place], [place] [phone] PCP - General Family Medicine 01/01/23 04/18/24 Everett Angulo MD [address] [place], [place] [phone] PCP - General Internal Medicine 04/19/24 10/08/24 Sahil Chen CNP [address] [place], [place] [phone] PCP - General Family Medicine 10/09/24 Chris Pack Jr Quantitative Analyst DeveloperChild Care Specialist 09/04/24 documented as of this encounter
--- OUTSIDE RECORDS SUMMARY | 2024-10-11 18:31 | XMS_ITS | Encounter Summary ---
Author Organization [employer] Address 75 [facility] 7t [place] [address] Care Team Providers Care Medical Billing Supervisor Name Role Phone Amna Urrutia Primary Care Provider [phone] Name, Everett ROSE Primary Care Provider [phone] Sahil Chen CNP Primary Care Provider [phone] Reason for Visit * Reason Onset Date Comments Med Refill 05/01/2023 Encounter Details Date Type Department Care Team ([facility] Contact Info) Description 05/01/2023 Refill [facility] [address] [place] [address] [phone] Lakshmi Womack FNP [address] [place], [place] [phone] Type 1 diabetes mellitus with hyperglycemia ([facility]) Social History Tobacco Use Types [...] Upcoming Encounters Date Type Department Care Team ([facility] Contact Info) Description 11/27/2024 2:45 PM EDT Office Visit [facility] [address] [place] [address] [phone] Sahil Chen CNP [address] [place] [address] documented as of this encounter Visit Diagnoses Diagnosis Type 1 diabetes mellitus with hyperglycemia (CMS/HCC) documented in this encounter Additional Health Concerns Assessment Noted Time PHQ-9 Depression Total Score: 16 04/17/ 023 8:52 AM EDT documented as of this encounter Care Teams Medical Billing Supervisor Relationship Specialty Start Date End Date Amna Urrutia FNP 230 [place] [address] PCP - General Family Medicine 01/01/23 04/18/24 NameEverett MD [address] [place], [place] [phone] PCP - General Internal Medicine 04/19/24 10/08/24 Sahil Chen CNP [address] [place] [address] PCP - General Family Medicine 10/09/24 Chris Pack Jr Truck Driver InstructorBurial Needs Salesperson 09/04/24 documented as of this encounter
--- OUTSIDE RECORDS SUMMARY | 2024-10-11 18:31 | XMS_ITS | Encounter Summary ---
Author Organization [employer] Address 75 [facility] 7t [place] [address] Care Team Providers Care Cut Off Machine Unloader Name Role Phone Name, Everett ROSE Primary Care Provider [phone] Reason for Visit * Reason Onset Date Comments Results 09/16/2024 Encounter Details Date Type Department Care Team (Late st Contact Info) Description 09/16/2024 Telephone [facility] [address] [place] [address] Gertrude Tyler RN [address] [place] [address] Results Social History Tobacco Use Types Packs/Day [...] PM EDT Office Visit [facility] [address] [place] [address] Sahil Chen CNP [address] [place], [place] [phone] documented as of this encounter Visit Diagnoses Not on filedocumented in this encounter Additional Health Concerns Assessment Noted Time PHQ-9 Depression Total Score: 20 024 2:42 PM EDT documented as of this encounter Care Teams Cut Off Machine Unloader Relationship Specialty Start Date End Date Name, MD Everett 230 [place] [address] PCP - General Internal Medicine 04/19/24 10/08/24 Chris Pack Jr Brakeshoe RepairerCar Rental Sales Assistant 09/04/24 documented as of this encounter
--- OUTSIDE RECORDS SUMMARY | 2024-10-11 18:31 | XMS_ITS | Encounter Summary ---
Author Organization [employer] Address 75 [facility] 7t [place] [address] Care Team Providers Care Helix Coil Winder Name Role Phone Name, Everett ROSE Primary Care Provider [phone] Reason for Visit * Reason Comments Nasal Congestion Encounter Details Date Type Department Care Team (Late st Contact Info) Description 09/13/2024 2:00 PM EST Office Visit [facility] [address] [place], [place] [phone] Denice Rubin MD 230 [place], [place] [phone] Dry cough (Primary Dx); Wheeze Social History [...] reported that he has had a dry CAR ESCORT cough for about 3-4 days. Cough when [...] Description 11/27/2024 2:45 PM EDT Office Visit [facility] [address] [place] [address] Sahil Chen, COSTUMED CHARACTER 230 [place] [address] documented as of this encounter Procedures Procedure [...] PM EST Narrative 09/13/2024 2:33 PM EST ?[facility] ?[address] ?[place] [address] ?XRay Report ? Signed ? Patient: Torres,Bradford J ?MR#: [id number] ?? [id number] ? : 1995 ?Acct:[id number] ? Age/Sex: 29 / M ?ADM Date: /24/25 ? Loc: HO.HHCX ? Attending Dr: Denice Rubin MD ? Ordering Physician: Denice Rubin MD ?? Date of Service: 09/13/24 ?? Procedure(s): XR chest 2V ?? Accession Number(s): [id number] ? cc: Denice Rubin MD ? EXAMINATION: [...] DD/ 1412 ? TD/TT: 09/13/24 1422 ? Steam Table Worker: ? Procedure Note Aamir Austin - 09/13/2024 [place] [address] XRay Report Signed Patient: Bradford Torres R#: [id number] : 1995Acct:[id number] Age/Sex: 29 / MADM Date: 09/13/24 Loc: HO.HHCX Attending Dr: Denice Rubin MD Ordering Physician: Denice Rubin MD Date of Service: 09/13/24 Procedure(s): XR chest 2V Accession Number(s): [id number] cc: Denice Rubin MD EXAMINATION: XR CHEST [...] 02:29 PM EST RP Dictated By: August Calrk MD Signed By: <Electronically signed by August Clark MD in OV> 09/13/24 1429 DD/ 1412 TD/TT: 09/13/24 1422 Steam Table Worker: Denice Rubin MD IMG XR PROCEDURES Final Re sult * POCT COVID-19 Ag Goldman ID NOW (09/13/2024 2:06 PM EST) [facility] Coronavirus Antigen PCR Negative Negative, Indeterminate, None Detected, Invalid, Specimen unsatisfactory for evaluation, Weakly Positive Swab 09/13/2024 2:06 PM EST Denice Rubin MD POINT OF CARE TEST ENTER/E DIT ORDERABLES Final Result * Influenza A (ID NOW Rapid Molecular) (09/13/2024 2:06 PM EST) [facility] Influenza A Negative Negative, Indeterminate [facility] Swab 09/13/2024 2:06 PM EST Denice Rubin MD POINT OF CARE TEST ENTER/E DIT ORDERABLES Final Result [facility] [address] [place] [phone] * Influenza B (ID NOW Rapid Molecular) (09/13/2024 2:06 PM EST) [facility] Influenza B Negative Negative, Indeterminate [facility] Swab 09/13/2024 2:06 PM EST Denice Rubin MD POINT OF CARE TEST ENTER/E DIT ORDERABLES Final Result [facility] [address] [place] [address] [phone] * (ABNORMAL) Respiratory Viral Panel PCR (09/13/2024 2:05 PM EST) Adenovirus PCR Not Detected Not Detect. [facility] Bordetella pertussis PCR Not Detected Not Detect. [facility] Comment:Interpret results wi th caution. If B. pertussis isspecifically suspected, additional testing using analternate method is recommended. Bordetella parapertussis PCR Not Detected Not Detect. [facility] Chlamydia pneumoniae PCR Not Detected Not Detect. [facility] Coronavirus 229E PCR Not Detected Not Detect. [facility] Coronavirus HKU1 PCR Not Detected Not Detect. [facility] Coronavirus NL63 PCR Not Detected Not Detect. [facility] Coronavirus OC43 PCR Not Detected Not Detect. [facility] SARS-CoV-2 PCR Not Detected Not Detect. [facility] Comment:SARS-CoV-2 not detec brooke by real-time RT-PCR.Note: If clinical suspicion for Sars-CoV-2 is high, continueto maintain precautions and consider repeat testing.Test results should be interpreted in the context ofclinical findings and other laboratory data.Rare polymorphisms exist that could lead to false-negativeor false-positive results. If results do not match theclinical findings, additional testing should be considered.Results reported to [facility].This test has been authorized by the FDA under the EmergencyUse Authorization (EUA) for use by authorized laboratories. Influenza A PCR Detected(A) Not Detect. [facility] Influenza B PCR Not Detected Not Detect. [facility] Human metapneumovirus PCR Not Detected Not Detect. [facility] Rhino/Enterovirus PCR Not Detected Not Detect. [facility] Mycoplasma pneumoniae PCR Not Detected Not Detect. [facility] Parainfluenza 1 PCR Not Detected Not Detect. [facility] Parainfluenza 2 PCR Not Detected Not Detect. [facility] Parainfluenza 3 PCR Not Detected Not Detect. [facility] Parainfluenza 4 PCR Not Detected Not Detect. [facility] RSV PCR Not Detected Not Detect. [facility] Resp Panel NA Note See Note H [facility] Comment:All results must be correlated [...] assay is performed by Multiplexed PCR, utilizing [employer] Film Array. Swab 09/13/2024 2:05 PM EST 09/14/2024 8:41 AM EST us Denice Rubin MD LAB BLOOD ORDERABLES Final Result [facility] [address] [place] [address] [phone] documented in this encounter Visit Diagnoses [...] documented as of this encounter Care Teams Helix Coil Winder Relationship Specialty Start Date End Date Name, MD Everett [address] [place] [address] PCP - General Internal Medicine 04/19/24 10/08/24 Chris Pack Jr Home Health Billing SpecialistCourtesy Van Driver 09/04/24 documented as of this encounter
--- OUTSIDE RECORDS SUMMARY | 2024-10-11 18:31 | XMS_ITS | Encounter Summary ---
Author Organization [employer] Address 75 [facility] 7t [place] [address] Care Team Providers Care Scout Professional Sports Name Role Phone Name, Everett ROSE Primary Care Provider [phone] Reason for Visit * Reason Onset Date Comments Nurse Triage 09/12/2024 Encounter Details Date Type Department Care Team (Late st Contact Info) Description 09/12/2024 Telephone [facility] [address] [place] [address] Name, MD Everett [address] [place] [address] Nurse Triage Social History Tobacco Use Types [...] reports that he has had a dry CAN OPERATOR cough for about 3-4 days. Cough [...] or Team appts at time of call. [facility] hours and availability [...] caller accepted this outcome. Contact pt at [phone] documented in this encounter Plan of Treatment Upcoming Encounters Date Type Department Care Team (Late st Contact Info) Description 11/27/2024 2:45 PM EDT Office Visit [facility] [address] [place], [place] [phone] Sahil Chen CNP [address] [place], [place] [phone] documented as of this encounter Visit Diagnoses Not on filedocumented in this encounter Additional Health Concerns Assessment Noted Time PHQ-9 Depression Total Score: 20 024 2:42 PM EDT documented as of this encounter Care Teams Scout Professional Sports Relationship Specialty Start Date End Date Name, MD Everett [address] [place], [place] [phone] PCP - General Internal Medicine 04/19/24 10/08/24 Chris Pack Jr Patent CounselCarpet Layer Helper 09/04/24 documented as of this encounter
--- OUTSIDE RECORDS SUMMARY | 2024-10-11 18:31 | XMS_ITS | Encounter Summary ---
Author Organization [employer] Address 75 [facility] 7t [place] [address] Care Team Providers Care Marriage And Family Social Worker Name Role Phone Name, Everett ROSE Primary Care Provider [phone] Reason for Visit * Reason Comments Med Refill Encounter Details Date Type Department Care Team (Late st Contact Info) Description 09/12/2024 Refill [facility] [address] [place], [place] [phone] Name, MD Everett [address] [place] [address] Social History Tobacco Use Types Packs/Day Years [...] Office Visit [facility] [address] [place], [place] [phone] Sahil Chen CNP [address] [place], [place] [phone] documented as of this encounter Visit Diagnoses Not on filedocumented in this encounter Additional Health Concerns Assessment Noted Time PHQ-9 Depression Total Score: 20 024 2:42 PM EDT documented as of this encounter Care Teams Marriage And Family Social Worker Relationship Specialty Start Date End Date Name, MD Everett [address] [place], [place] [phone] PCP - General Internal Medicine 04/19/24 10/08/24 Chris Pack Jr LcpcLockstitch Cup Setter 09/04/24 documented as of this encounter
--- OUTSIDE RECORDS SUMMARY | 2024-10-11 18:31 | XMS_ITS | Encounter Summary ---
Author Organization [employer] Address [address] [facility] 7t [place] [address] Care Team Providers Care Audit Senior Associate Name Role Phone Gustavo Sahil SERA Primary Care Provider [phone] Encounter Details Date Type Department Care Team (Late st Contact Info) Description 10/09/2024 Telephone [facility] [address] [place], [place] [phone] Shivani Lopez RN 230 [place] [address] Social History Tobacco Use Types Packs/Day Years [...] contact provider regarding Tresiba. Pt followed by [facility] Endocrinology. TC placed to [facility] Endocrinology and informed by staff, pt has been a no show and has not been seen since 05/2024. [facility] Endo office reports will refill Tresiba once time and informed pt needs to be seen or willbe discharged from practice. [facility] endo provided appt for pt 10/16/24 at 2PM. TC placed to pt regarding [facility] Endo appt. Pt verbalized understanding. RN informed will send appt reminder to address on file. Pt verbalized understanding. No further questions or concerns expressed at this time. Pt to F/U asneeded. RN will forward to PCP as FYI. documented in this encounter Plan of Treatment Upcoming Encounters Date Type Department Care Team (Late st Contact Info) Description 11/27/2024 2:45 PM EDT Office Visit [facility] [address] [place], [place] [phone] Sahil Chen CNP [address] [place] [address] documented as of this encounter Visit Diagnoses Not on filedocumented in this encounter Additional Health Concerns Assessment Noted Time PHQ-9 Depression Total Score: 20 024 2:42 PM EDT documented as of this encounter Care Teams Audit Senior Associate Relationship Specialty Start Date End Date Sahil Chen CNP [address] [place] [address] PCP - General Family Medicine 10/09/24 Chris Pack Jr Upper Extremity SurgeonBlast Furnace Tender 09/04/24 documented as of this encounter
--- OUTSIDE RECORDS SUMMARY | 2024-10-11 18:31 | XMS_ITS | Encounter Summary ---
Author Organization [employer] Address 75 [facility] 7t [place] [address] Care Team Providers Care Licensed Esthetician Name Role Phone Name, Everett ROSE Primary Care Provider [phone] Reason for Visit * Reason Onset Date Comments Med Refill 10/08/2024 Encounter Details Date Type Department Care Team (Late st Contact Info) Description 10/08/2024 Refill [facility] 230 [place], [place] [phone] Name, MD Everett [address] [place] [address] Type 1 diabetes mellitus with hyperglycemia ([facility]) Social History Tobacco Use Types Packs/Day Years [...] 100 UNIT/ML pen To be sent to: [facility] - [place], [place] - [address] [place] [address] documented in this encounter Plan of Treatment Upcoming Encounters Date Type Department Care Team (Late st Contact Info) Description 11/27/2024 2:45 PM EDT Office Visit [facility] 230 [place] [address] Sahil Chen CNP [address] [place], [place] [phone] documented as of this encounter Visit Diagnoses Diagnosis Type 1 diabetes mellitus with hyperglycemia (CMS/HCC) documented in this encounter Additional Health Concerns Assessment Noted Time PHQ-9 Depression Total Score: 20 024 2:42 PM EDT documented as of this encounter Care Teams Licensed Esthetician Relationship Specialty Start Date End Date Name, MD Everett [address] [place] [address] PCP - General Internal Medicine 04/19/24 10/08/24 Chris Pack Jr Religious HealerSet Making Machine Operator 09/04/24 documented as of this encounter
--- OUTSIDE RECORDS SUMMARY | 2024-10-11 18:31 | XMS_ITS | Encounter Summary ---
Author Organization [employer] [facility] Address [address] [place] [address] 7 [place] [address] Care Team Providers Care Senior Corporate Strategy Manager Name Role Phone Amna Urrutia Primary Care Provider [phone] Name, Everett ROSE Primary Care Provider [phone] Sahil Chen CNP Primary Care Provider [phone] Reason for Visit * Reason Onset Date Comments Med Refill 05/01/2023 Encounter Details Date Type Department Care Team (Late Contact Info) Description 05/01/2023 Refill [facility] [address] [place] [phone] Sandra Leal MD [address] [place] [address] [phone] Social History Tobacco Use Types Packs/Day Years [...] 11/27/2024 2:45 PM EDT Office Visit [facility] [address] [place] [address] Sahil Chen CNP [address] [place], [place] [phone] documented as of this encounter Visit Diagnoses Not on filedocumented in this encounter Additional Health Concerns Assessment Noted Time PHQ-9 Depression Total Score: 16 023 8:52 AM EDT documented as of this encounter Care Teams Senior Corporate Strategy Manager Relationship Specialty Start Date End Date Amna Urrutia FNP 230 [place], [place] [phone] PCP - General Family Medicine 01/01/23 04/18/24 Everett Angulo MD 230 [place], [place] [phone] PCP - General Internal Medicine 04/19/24 10/08/24 Sahil Chen CNP [address] [place], [place] [phone] PCP - General Family Medicine 10/09/24 Chris Pack Jr Maintenance And Custodian SupervisorWild Life Manager 09/04/24 documented as of this encounter
--- OUTSIDE RECORDS SUMMARY | 2024-10-11 18:31 | XMS_ITS | Encounter Summary ---
Author Organization [employer] [facility] Address 75 [facility] 7t [place] [address] Care Team Providers Care Milk Route Deliverer Name Role Phone Amna Urrutia Primary Care Provider [phone] Name, Everett ROSE Primary Care Provider Sahil Chen CNP Primary Care Provider [phone] Encounter Details Date Type Department Care Team (Late Contact Info) Description 01/17/[address] [facility] [address] [place] [address] [phone] Amna Urrutia FNP 230 [place], [place] [phone] Social History Tobacco Use Types Packs/Day Years [...] 11/27/2024 2:45 PM EDT Office Visit [facility] [address] [place] [address] [phone] Sahil Chen CNP [address] [place] [address] documented as of this encounter Visit Diagnoses Not on filedocumented in this encounter Additional Health Concerns Assessment Noted Time PHQ-9 Depression Total Score: 7 01/07/20 23 9:10 AM EDT documented as of this encounter Care Teams Milk Route Deliverer Relationship Specialty Start Date End Date Amna Urrutia FNP 230 [place] [address] PCP - General Family Medicine 01/01/23 04/18/24 Name, MD Everett 230 [place] [address] PCP - General Internal Medicine 04/19/24 10/08/24 Sahil Chen CNP [address] [place] [address] PCP - General Family Medicine 10/09/24 Chris Pack Jr Transcribing Machine OperatorCan Inspector 09/04/24 documented as of this encounter
--- OUTSIDE RECORDS SUMMARY | 2024-10-11 18:31 | XMS_ITS | Encounter Summary ---
Author Organization [employer] Address [address] [facility] [address] 7t [place] [address] Care Team Providers Care Fleet Maintenance Foreman Name Role Phone Name, Everett ROSE Primary Care Provider [phone] Reason for Visit * Reason Onset Date Comments Med Refill 10/08/2024 Encounter Details Date Type Department Care Team (Late st Contact Info) Description 10/08/2024 Refill [facility] [address] [place], [place] [phone] Name, MD Everett 230 [place] [address] Gastroesophageal reflux disease without esophagitis Social History [...] Description 11/27/2024 2:45 PM EDT Office Visit [facility] 230 [place], [place] [phone] Sahil Chen CNP 230 [place], [place] [phone] documented as of this encounter Visit Diagnoses Diagnosis Gastroesophageal reflux disease without esophagitis Esophageal reflux documented in this encounter Additional Health Concerns Assessment Noted Time PHQ-9 Depression Total Score: 20 024 2:42 PM EDT documented as of this encounter Care Teams Fleet Maintenance Foreman Relationship Specialty Start Date End Date Name, MD Everett [address] [place], [place] [phone] PCP - General Internal Medicine 04/19/24 10/08/24 Chris Pack Jr Human Capital AnalystPaper Sample Clerk 09/04/24 documented as of this encounter
--- OUTSIDE RECORDS SUMMARY | 2024-10-11 18:31 | XMS_ITS | Encounter Summary ---
Author Organization [facility] Address [address] [place] [address] Phone Care Team Providers Care Conference Manager Name Role Phone Santos Mueller MD Primary Care Provider [phone] Encounter Details Date Type Department Care Team (Late st Contact Info) Description 08/05/2024 Documentation Only [facility] [place], [address] [place] [address] Jessica Sprague [address] [place] [address] Social History Tobacco Use Types [...] on filedocumented in this encounter Care Teams Conference Manager Relationship Specialty Start Date End Date Santos Mueller MD 230 [place] [address] PCP - General Emergency Medicine 07/28/23 documented as of this encounter
--- OUTSIDE RECORDS SUMMARY | 2024-10-11 18:31 | XMS_ITS | Encounter Summary ---
Author Organization [employer] [facility] Address [address] [facility] 7t [place] [address] Care Team Providers Care Pattern Grader Name Role Phone Amna Urrutia Primary Care Provider Name, Everett ROSE Primary Care Provider [phone] Sahil Chen CNP Primary Care Provider [phone] Reason for Visit * Reason Onset Date Comments Med Refill 05/03/2023 Encounter Details Date Type Department Care Team ([facility] Contact Info) Description 05/03/2023 Refill [facility] [address] [place] [address] [phone] Amna Urrutia FNP [address] [place] [address] Type 1 diabetes mellitus with hyperglycemia ([facility]) Social History Tobacco Use Types Packs/Day [...] 2:45 PM EDT Office Visit [facility] MEDICINE [address] [place] [address] Sahil Chen CNP [address] [place] [address] documented as of this encounter Visit Diagnoses Diagnosis Type 1 diabetes mellitus with hyperglycemia (CMS/HCC) documented in this encounter Additional Health Concerns Assessment Noted Time PHQ-9 Depression Total Score: 16 04/17/ 023 8:52 AM EDT documented as of this encounter Care Teams Pattern Grader Relationship Specialty Start Date End Date Amna Urrutia FNP [address] [place] [address] PCP - General Family Medicine 01/01/23 04/18/24 Name, MD Everett [address] [place], [place] [phone] PCP - General Internal Medicine 04/19/24 10/08/24 Sahil Chen CNP [address] [place] [address] PCP - General Family Medicine 10/09/24 Chris Pack Jr Housecleaner FloorCar Hiker 09/04/24 documented as of this encounter
--- OUTSIDE RECORDS SUMMARY | 2024-10-11 18:31 | XMS_ITS | Encounter Summary ---
Author Organization [employer] [facility] Address [address] [place] [address] 7 [place] [address] Care Team Providers Care Heading And Priming Operator Name Role Phone Amna Urrutia Primary Care Provider [phone] Name, Everett ROSE Primary Care Provider Sahil Chen CNP Primary Care Provider [phone] Reason for Visit * Reason Onset Date Comments Med Refill 04/28/2023 Encounter Details Date Type Department Care Team (Late Contact Info) Description 04/28/2023 Refill [facility] MEDICINE [address] [place] [phone] Sandra Leal MD [address] [place] [address] [phone] Social History Tobacco Use Types Packs/Day Years [...] 2:45 PM EDT Office Visit [facility] MEDICINE [address] [place] [address] Sahil Chen CNP [address] [place], [place] [phone] documented as of this encounter Visit Diagnoses Not on filedocumented in this encounter Additional Health Concerns Assessment Noted Time PHQ-9 Depression Total Score: 16 023 8:52 AM EDT documented as of this encounter Care Teams Heading And Priming Operator Relationship Specialty Start Date End Date Amna Urrutia FNP [address] [place], [place] [phone] PCP - General Family Medicine 01/01/23 04/18/24 Everett Angulo MD 230 [place], [place] [phone] PCP - General Internal Medicine 04/19/24 10/08/24 Sahil Chen CNP [address] [place], [place] [phone] PCP - General Family Medicine 10/09/24 Chris Pack Jr Geometry TeacherBooster Pump Operator 09/04/24 documented as of this encounter
--- OUTSIDE RECORDS SUMMARY | 2024-10-11 18:31 | XMS_ITS | Clinical Summary ---
Author Organization [facility] Address [address] [place] [address] Care Team Providers Care Dock Pumper Name Role Phone Unavailable Primary Care Provider [...]
--- OUTSIDE RECORDS SUMMARY | 2024-10-11 18:31 | XMS_ITS | Encounter Summary ---
Author Organization [facility] Address [address] [place] [address] Phone Care Team Providers Care Sweat Box Attendant Name Role Phone Santos Mueller MD Primary Care Provider [phone] Encounter Details Date Type Department Care Team (Late st Contact Info) Description 08/05/2024 Documentation Only [facility], [address] [place] [address] Jessica Sprague [address] [place] [address] Social History Tobacco Use Types [...] on filedocumented in this encounter Care Teams Sweat Box Attendant Relationship Specialty Start Date End Date Santos Mueller MD [address] [place] [address] PCP - General Emergency Medicine 07/28/23 documented as of this encounter
--- OUTSIDE RECORDS SUMMARY | 2024-10-11 18:31 | XMS_ITS | Encounter Summary ---
Author Organization [employer] Address [address] [facility] 7t [place] [address] Care Team Providers Care Supervising Bailiff Name Role Phone Name, Everett ROSE Primary Care Provider [phone] Reason for Visit * Reason Comments Pre-visit Planning SDOH unable to compl ete, patient working. Encounter Details Date Type Department Care Team (Late st Contact Info) Description 09/30/2024 Patient Outreach [facility] [address] [place], [place] [phone] Name, MD Everett [address] [place] [address] Pre-visit Planning (SDOH unable to complete, patient [...] 2:45 PM EDT Office Visit [facility] MEDICINE [address] [place] [address] Sahil Chen CNP [address] [place], [place] [phone] documented as of this encounter Visit Diagnoses Not on filedocumented in this encounter Additional Health Concerns Assessment Noted Time PHQ-9 Depression Total Score: 20 024 2:42 PM EDT documented as of this encounter Care Teams Supervising Bailiff Relationship Specialty Start Date End Date Name, MD Everett [address] [place] [address] PCP - General Internal Medicine 04/19/24 10/08/24 Chris Pack Jr Figure Refinisher And RepairerPerformance Management Consultant 09/04/24 documented as of this encounter
--- OUTSIDE RECORDS SUMMARY | 2024-10-11 18:31 | XMS_ITS | Encounter Summary ---
Author Organization [employer] [facility] Address [address] [facility] 7t [place] [address] Care Team Providers Care Residential Real Estate Sales Manager Name Role Phone Amna Urrutia Primary Care Provider [phone] Name, Evertet ROSE Primary Care Provider [phone] Sahil Chen CNP Primary Care Provider [phone] Encounter Details Date Type Department Care Team (Late st Contact Info) Description 10/21/2022 Abstract [facility]ULT [facility] [address] [place] [address] Marycruz Oseguera DDS [address] [place] [address] Social History Tobacco Use Types Packs/Day Years [...] 11/27/2024 2:45 PM EDT Office Visit [facility] MEDICINE [address] [place] [address] Sahil Chen CNP [address] [place] [address] documented as of this encounter Visit Diagnoses Not on filedocumented in this encounter Care Teams Residential Real Estate Sales Manager Relationship Specialty Start Date End Date Amna Urrutia FNP [address] [place], [place] [phone] PCP - General Family Medicine 01/01/23 04/18/24 Adele, MD Everett [address] [place], [place] [phone] PCP - General Internal Medicine 04/19/24 10/08/24 Sahil Chen CNP [address] [place], [place] [phone] PCP - General Family Medicine 10/09/24 Chris Pack Jr Swatch FolderMaintenance Team Leader 09/04/24 documented as of this encounter
--- OUTSIDE RECORDS SUMMARY | 2024-10-11 18:31 | XMS_ITS | Encounter Summary ---
Author Organization [employer] Address [address] [facility] 7t [place] [address] Care Team Providers Care Fraud Examiner Name Role Phone Sahil Chen CNP Primary Care Provider [phone] Encounter Details Date Type Department Care Team (Late st Contact Info) Description 10/09/2024 Orders Only [facility] MEDICINE [address] [place], [place] [phone] Sahil Chen CNP [address] [place] [address] Type 1 diabetes mellitus with hyperglycemia (CMS/HCC) [...] 2:45 PM EDT Office Visit [facility] MEDICINE [address] [place] [address] Sahil Chen CNP [address] [place], [place] [phone] documented as of this encounter Visit Diagnoses Diagnosis Type 1 diabetes mellitus with hyperglycemia (CMS/HCC)- Primary documented in this encounter Additional Health Concerns Assessment Noted Time PHQ-9 Depression Total Score: 20 024 2:42 PM EDT documented as of this encounter Care Teams Fraud Examiner Relationship Specialty Start Date End Date Sahil Chen CNP [address] [place] [address] PCP - General Family Medicine 10/09/24 Chris Pack Jr General TellerInvoice Machine Operator 09/04/24 documented as of this encounter
--- OUTSIDE RECORDS SUMMARY | 2024-10-11 18:31 | XMS_ITS | Encounter Summary ---
Author Organization [employer] [facility] Address [address] [place] [address] 7 [place] [address] Care Team Providers Care Assembler Handbags Name Role Phone Amna Urrutia Primary Care Provider [phone] Name, Everett ROSE Primary Care Provider [phone] Sahil Chen CNP Primary Care Provider [phone] Reason for Visit * Reason Onset Date Comments Med Refill 03/21/2023 Encounter Details Date Type Department Care Team (Late Contact Info) Description 03/21/2023 Refill [facility] MEDICINE [address] [place] [address] Amna Urrutia FNP [address] [place], [place] [phone] Social History Tobacco Use Types Packs/Day Years [...] Description 11/27/2024 2:45 PM EDT Office Visit [facility] MEDICINE [address] [place] [address] Sahil Chen CNP [address] [place] [address] documented as of this encounter Visit Diagnoses Not on filedocumented in this encounter Additional Health Concerns Assessment Noted Time PHQ-9 Depression Total Score: 7 01/07/20 23 9:10 AM EDT documented as of this encounter Care Teams Assembler Handbags Relationship Specialty Start Date End Date Amna Urrutia FNP [address] [place] [address] PCP - General Family Medicine 01/01/23 04/18/24 Everett Angulo MD [address] [place] [address] PCP - General Internal Medicine 04/19/24 10/08/24 Sahil Chen CNP [address] [place] [address] PCP - General Family Medicine 10/09/24 Chris Pack Jr Brush Material PreparerManufacturing Production Technician 09/04/24 documented as of this encounter
--- OUTSIDE RECORDS SUMMARY | 2024-10-11 18:31 | XMS_ITS | Encounter Summary ---
Author Organization [employer] Address [address] [facility] 7t [place] [address] Care Team Providers Care Regulatory Technician Name Role Phone Amna Urrutia Primary Care Provider [phone] Name, Everett ROSE Primary Care Provider [phone] Reason for Visit * Reason Onset Date Comments ER Follow-up 05/04/2023 Encounter Details Date Type Department Care Team (Late st Contact Info) Description 05/04/2023 Telephone [facility] MEDICINE [address] [place] [address] Amna Urrutia FNP [address] [place] [address] ER Follow-up Social History Tobacco Use Types [...] Brasher RN - 05/05/2023 3:32 PM EDT [facility] notes sent to medical records. * Telephone Encounter - April Meneses RN - 05/04/2023 4:19 PM EDT called pt to triage, spoke to pt. pt states had an appt today but no showed. pt states seen in the ER at [facility] today for neck, shoulder and upper back [...] then. pt states is currently in the [facility] and will go upstairs to speak [...] to report ED visit on 05/04/23 at [facility]. Reports to be seen for muscle spasm , states has heat flashes and pain still. Patient advised will forward to team nurse for follow up. Please contact at [phone] documented in this encounter Plan of Treatment Upcoming Encounters Date Type Department Care Team (Late st Contact Info) Description 11/27/2024 2:45 PM EDT Office Visit [facility] MEDICINE [address] [place] [address] Sahil Chen CNP [address] [place], [place] [phone] documented as of this encounter Visit Diagnoses Not on filedocumented in this encounter Additional Health Concerns Assessment Noted Time PHQ-9 Depression Total Score: 16 023 8:52 AM EDT documented as of this encounter Care Teams Regulatory Technician Relationship Specialty Start Date End Date Amna Urrutia FNP [address] [place] [address] PCP - General Family Medicine 01/01/23 04/18/24 Everett Angulo MD [address] [place] [address] [phone] PCP - General Internal Medicine 04/19/24 10/08/24 Chris Pack Jr Precise W[employer]Systems Lead 09/04/24 documented as of this encounter
--- OUTSIDE RECORDS SUMMARY | 2024-10-11 18:31 | XMS_ITS | Encounter Summary ---
Author Organization [facility] Address [address] [place] [address] Phone Care Team Providers Care Enterprise Application Administrator Name Role Phone Santos Mueller MD Primary Care Provider [phone] Encounter Details Date Type Department Care Team (Late st Contact Info) Description 08/05/2024 Documentation Only [facility], [address] [place] [address] Jessica Sprague [address] [place] [address] Social History Tobacco Use Types [...] on filedocumented in this encounter Care Teams Enterprise Application Administrator Relationship Specialty Start Date End Date Santos Mueller MD [address] [place] [address] PCP - General Emergency Medicine 07/28/23 documented as of this encounter
--- OUTSIDE RECORDS SUMMARY | 2024-10-11 18:31 | XMS_ITS | Clinical Summary ---
Author Organization [employer] Address [address] [place] [address] Care Team Providers Care Column Precaster Name Role Phone Sahil Chen BLACK TOP SPREADER MACHINE OPERATOR Primary Care Provider [phone] Allergies Active Allergy Reactions Criticality Noted Date Comments Diphenhydramine Other 10/18/2022 Weakness, tiredness Haloperidol Shortness of breath High 10/18/2022 Jaw locks up and has tremors Metoclopramide 08/02/2024 Medications * This document contains information received from the source organization and may not represent a complete record from that organization. Continuous Blood Gluc Perinatal Tech (FreeStyle Shiraz 2 [place]) deviceIndication s:Type 1 diabetes mellitus with hyperglycemia (CMS/HCC) Use with sensor to monitor blood glucose levels 1 each 023 Active Acetaminophen Extra Strength 500 MG tablet Active Blood Glucose Monitoring Suppl (FreeStyle [place] Lite) w/Device kit Active glucose blood (FREESTYLE [...] miscIndications: Type 1 diabetes mellitus with hyperglycemia ([facility]) Use to monitor blood sugar level [...] tabletIndication s:Type 1 diabetes mellitus with hyperglycemia ([facility]) TAKE 1 TABLET BY MOUTH THREE TIMES DAILY NEEDED FOR NAUSEA AND VOMITING 15 tablet Active famotidine (Pepcid) 20 MG tabletIndication s:Gastroesophage al reflux disease without esophagitis TAKE 1 TABLET BY MOUTH DAILY AT BEDTIME 90 tablet Active Tresiba FlexTouch 200 UNIT/ML injectionIndicat ions:Type 1 diabetes mellitus with hyperglycemia ([facility]) Inject 20 Units under the skin [...] tabletIndication s:Type 1 diabetes mellitus with hyperglycemia ([facility]) TAKE 1 TABLET BY MOUTH THREE [...] care ?? PLAN: 1. Follow up with [facility]: Recommended for follow-up: TBD 2. Patient goal is stabilization of symptoms. 3. Behavioral Recommendations a. Patient was sectioned and taken to [facility] via ambulance Head injury 05/31/2023 Overview [...] MH services. PLAN: 1. Follow up with [facility]: Not recommended for follow-up 2. Patient goal [...] to schedule apt ---I discussed today w home care specialist and request to try to schedule [...] f up until can start care w equipment engineering technician Type 1 diabetes mellitus without complication Assessment & Plan (03/21/2024 3:41 PM EDT): Has apt w Automotive Quality Engineer next week to start care Assessment & [...] EDT): ?? Reports diagnosed appro[place] 2018 [place] ?? Referral to establish with GI provider [...] Type Department Care Team Description 10/09/2024 Telephone [facility] WALK-IN CENTER [address] [place] [phone] Shivani Lopez RN 10/09/2024 Orders Only [facility] MEDICINE [address] [place] [address] Sahil Chen CNP Type 1 diabetes mellitus with hyperglycemia ([facility]) (Primary Dx) 10/08/2024 Refill [facility] [address] [place] [address] Everett Angulo MD Gastroesophageal reflux disease without esophagitis 10/08/2024 Refill [facility] MEDICINE [address] [place] [address] Everett Angulo MD Type 1 diabetes mellitus with hyperglycemia ([facility]) 09/30/2024 Patient Outreach [facility] [address] [place] [address] Everett Angulo MD Pre-visit Planning (SDOH unable to complete, patient working. ) 09/16/2024 Telephone [facility] MEDICINE [address] [place] [address] Gertrude Tyler, RN Results 09/13/2024 2:00 PM EST Office Visit [facility] WALK-IN CENTER [address] [place] [phone] Denice Rubin MD Dry cough (Primary Dx); Wheeze 09/12/2024 Telephone [facility] MEDICINE [address] [place] [address] Everett Angulo MD Nurse Triage 09/12/2024 Refill [facility] MEDICINE [address] [place] [address] Everett Angulo MD 09/10/2024 Telephone [facility] MEDICINE [address] [place] [address] Everett Angulo MD Medication Question 09/10/2024 Patient Outreach [facility] MEDICINE [address] [place] [phone] Everett Angulo MD Transition Of Care (Tcm) 09/09/2024 Orders Only GENERIC EXTERNAL DATA DEPARTMENT Provider, Generic External Data 09/04/2024 Telephone [facility] MEDICINE [address] [place] [address] Everett Angulo MD Care Coordination (BHCP Care Plan) 09/01/2024 Orders Only GENERIC EXTERNAL DATA DEPARTMENT Provider, Generic External Data 08/07/2024 Orders Only [facility] External Provider, [facility] 08/05/2024 Refill [facility] WALK-IN CENTER [address] [place] [address] Lindsey Cuellar NP Gastroesophageal reflux disease without esophagitis 08/05/2024 Orders Only GENERIC EXTERNAL DATA DEPARTMENT Provider, Generic External Data 08/02/2024 2:00 PM EST Office Visit [address] [address] Everett Angulo MD Epididymo-orchitis, acute (Primary Dx); Type 1 diabetes mellitus with hyperglycemia ([facility]); Major depressive disorder, recurrent episode with anxious distress ([facility]/HCC) 08/02/2024 Travel 08/02/[address] [address] Fabiola Brasher RN 08/01/2024 Orders Only GENERIC EXTERNAL DATA DEPARTMENT Provider, [facility] External Data 07/31/2024 9:20 AM EST Office Visit [facility] WALK-IN [address] [address] Lindsey Cuellar NP Upper abdominal pain (Primary Dx); Elevated glucose; Epigastric pain; Pain in both testicles 07/31/2024 Orders Only GENERIC EXTERNAL DATA DEPARTMENT Provider, [facility] External Data 07/31/2024 Refill [facility] & PEDS [address] [place] [address] Everett Angulo MD Type 1 diabetes mellitus with hyperglycemia ([facility]/HCC) 07/26/2024 Telephone [facility] WALK-IN CENTER [address] [place] [phone] Breanna Ireland, RUSTY Results (Xray result: normal) 07/17/2024 Travel 07/16/[address] [address] Everett Angulo MD Nurse Triage 07/15/2024 10:45 AM EST Office Visit [facility] OPTOMETRY [address] [place] [phone] Alverto, Natasha, OD Myopia of both eyes [...] 2:45 PM EDT Office Visit [facility] MEDICINE [address] [place] [address] [phone] Sahil Chen, [facility] [address] [place], [place] [phone] Health Maintenance Due Date Last Done Comments [...] PM EST Narrative 09/13/2024 2:33 PM EST ?[place] [facility] ?[address] ?[place] [address] ?XRay Report ? Signed ? Patient: Torres,Bradford J ?MR#: [id number] ?? [id number] ? : 1995 ?Acct:[id number] ? Age/Sex: 29 / M ?ADM Date: 09/13/24 ? Loc: HO.HHCX ? Attending Dr: Denice Rubin MD ? Ordering Physician: Denice Rubin MD ?? Date of Service: 09/13/24 ?? Procedure(s): XR chest 2V ?? Accession Number(s): [id number] ? cc: Denice Rubin MD ? EXAMINATION: [...] ??August Clark MD ??09/13/2024 02:29 PM EST ?? RP ? Dictated By: ?August Clark MD ? Signed By: ?<Electronically signed by August Clark MD in OV> ?09/13/24 1429 ? DD/ 1412 ? TD/TT: 09/13/241421 ? Solar Field Service Technician: ? Procedure Note Aamir [place] - 09/13/[address] [address] XRay Report Signed Patient: Bradford Torres JMR#: [id number] : 1995Acct:[id number] Age/Sex: 29 / MADM Date: 09/13/24 Loc: HO.HHCX Attending Dr: Denice Rubin MD Ordering Physician: Denice Rubin MD Date of Service: 09/13/24 Procedure(s): XR chest 2V Accession Number(s): [id number] cc: Denice Rubin MD EXAMINATION: XR CHEST [...] 09/13/24 1429 DD/ 1412 TD/TT: 09/13/24 1422 Solar Field Service Technician: Denice Rubin MD IMG XR PROCEDURES Final Re sult * Influenza B (ID NOW Rapid Molecular) (09/13/2024 2:06 PM EST) Influenza B Negative Negative, Indeterminate [facility] Swab 09/13/2024 2:06 PM EST Denice Rubin MD POINT OF CARE TEST ENTER/E DIT ORDERABLES Final Result Performing Organization Address [facility] de Phone Number [facility] [address] [place] [phone] * Influenza A (ID NOW Rapid Molecular) (09/13/2024 2:06 PM EST) Influenza A Negative Negative, Indeterminate [facility] Swab 09/13/2024 2:06 PM EST Denice Rubin MD POINT OF CARE TEST ENTER/E DIT ORDERABLES Final Result Performing Organization Address [facility] Co de Phone Number [facility] [address] [place] [phone] * POCT COVID-19 Ag Goldman ID NOW (09/13/2024 2:06 PM EST) Pathologist [facility] Coronavirus Antigen PCR Negative Negative, Indeterminate, None Detected, Invalid, Specimen unsatisfactory for evaluation, Weakly Positive Swab 09/13/2024 2:06 PM EST Denice Rubin MD POINT OF CARE TEST ENTER/E DIT ORDERABLES Final Result * (ABNORMAL) Respiratory Viral Panel PCR (09/13/2024 2:05 PM EST) [facility] Adenovirus PCR Not Detected Not Detect. [facility] Bordetella pertussis PCR Not Detected Not Detect. [facility] Comment:Interpret results wi th caution. If B. pertussis isspecifically suspected, additional testing using analternate method is recommended. Bordetella parapertussis PCR Not Detected Not Detect. [facility] Chlamydia pneumoniae PCR Not Detected Not Detect. [facility] Coronavirus 229E PCR Not Detected Not Detect. [facility] Coronavirus HKU1 PCR Not Detected Not Detect. [facility] Coronavirus NL63 PCR Not Detected Not Detect. [facility] Coronavirus OC43 PCR Not Detected Not Detect. [facility] SARS-CoV-2 PCR Not Detected Not Detect. [facility] Comment:SARS-CoV-2 not detec brooke by real-time RT-PCR.Note: If clinical suspicion for Sars-CoV-2 is high, continueto maintain precautions and consider repeat testing.Test results should be interpreted in the context ofclinical findings and other laboratory data.Rare polymorphisms exist that could lead to false-negativeor false-positive results. If results do not match theclinical findings, additional testing should be considered.Results reported to [facility].This test has been authorized by the FDA under the EmergencyUse Authorization (EUA) for use by authorized laboratories. Influenza A PCR Detected(A) Not Detect. [facility] Influenza B PCR Not Detected Not Detect. [facility] Human metapneumovirus PCR Not Detected Not Detect. [facility] Rhino/Enterovirus PCR Not Detected Not Detect. [facility] Mycoplasma pneumoniae PCR Not Detected Not Detect. [facility] Parainfluenza 1 PCR Not Detected Not Detect. [facility] Parainfluenza 2 PCR Not Detected Not Detect. [facility] Parainfluenza 3 PCR Not Detected Not Detect. [facility] Parainfluenza 4 PCR Not Detected Not Detect. [facility] RSV PCR Not Detected Not Detect. [facility] Resp Panel NA Note See Note H [facility] Comment:All results must be correlated [...] assay is performed by Multiplexed PCR, utilizing [employer] Sky Film Array. Swab 09/13/2024 2:05 PM EST 09/14/2024 8:41 AM EST us Denice Rubin MD LAB BLOOD ORDERABLES Final Result [facility] [address] [place] [phone] * US SCROTUM DOPPLER (09/09/2024 10:19 PM EST) Only the most recent of4 resultswithin the time period is included. Anatomical Region Laterality Modality Abdomen Ultrasound 09/09/2024 10:1 9 PM EST Narrative 09/10/2024 8:26 AM EST ? [facility] ?[address] ?[place] [address] ? Ultrasound Report ? Signed ? Patient: Torres,Bradford J ?MR#: [id number] ?? [id number] ? : 1995 ?Acct:[id number] ? Age/Sex: 29 / M ?ADM Date: 01/20/25 ? Loc: HO.ED ? Attending Dr: ? Ordering Physician: Sedrick Grady MD ?? Date of Service: 09/09/24 ?? Procedure(s): US scrotum doppler ?? Accession Number(s): [id number] ? cc: Adele,Everett ROSE; Sedrick Grady MD ? CLINICAL HISTORY: testicular pain , no swelling ? US Scrotum with Doppler ? Comparison: US/RI/SR - US SCROTUM - 08/01/24 23:48 EST [...] ? DD/ 18 ? TD/TT: 09/09/242218 ? Solar Field Service Technician: ? Procedure Note Geovanna, Aamir - 09/10/[address] [address] Ultrasound Report Signed Patient: Bradford Torres R#: [id number] : 1995Acct:[id number] Age/Sex: 29 / MADM Date: 09/09/24 Loc: HO.ED Attending Dr: Ordering Physician: Sedrick Grady MD Date of Service: 09/09/24 Procedure(s): US scrotum doppler Accession Number(s): [id number] cc: Everett Angulo MD; Sedrick Grady MD CLINICAL HISTORY: testicular pain , no swelling US Scrotum with Doppler Comparison: US/RI/SR - US SCROTUM - 08/01/24 23:48 EST [...] OV> 09/10/24 0826 DD/ 18 TD/TT: 09/09/242218 Solar Field Service Technician: [facility] External Provider IMG US PROCEDURES Edited Result - Final * US Scrotum (09/09/2024 10:19 PM EST) Only the most recent of4 resultswithin the time period is included. Anatomical Region Laterality Modality Body Ultrasound 09/09/2024 10:1 9 PM EST Narrative 09/09/2024 10:21 PM EST ? [facility] ?[address] ?[place] [address] ? Ultrasound Report ? Signed ? Patient: Brian,Bradford J ?MR#: [id number] ?? [id number] ? : 1995 ?Acct:[id number] ? Age/Sex: 29 / M ?ADM Date: 01/20/25 ? Loc: HO.ED ? Attending Dr: ? Ordering Physician: Sedrick Grady MD ?? Date of Service: 09/09/24 ?? Procedure(s): US scrotum ?? Accession Number(s): [id number] ? cc: Name,Everett ROSE; Sedrick Grady MD ? CLINICAL HISTORY: testicular pain , no swelling ? US Scrotum with Doppler ? Comparison: US/RI/SR - US SCROTUM - 08/01/24 23:48 EST [...] ? DD/ 18 ? TD/TT: 09/09/242218 ? Solar Field Service Technician: ? Procedure Note Geovanna, Image - 09/09/2024 [place] [address] Ultrasound Report Signed Patient: Bradford Torres JMR#: [id number] : 1995Acct:[id number] Age/Sex: 29 / MADM Date: 09/09/24 Loc: HO.ED Attending Dr: Ordering Physician: Sedrick Grady MD Date of Service: 09/09/24 Procedure(s): US scrotum Accession Number(s): [id number] cc: Everett Angulo MD; Sedrick Grady MD CLINICAL HISTORY: testicular pain , no swelling US Scrotum with Doppler Comparison: US/RI/SR - US SCROTUM - 08/01/24 23:48 EST [...] in OV> 09/09/242220 DD/ 18 TD/TT: 09/09/242218 Solar Field Service Technician: [facility] External Provider IMG US PROCEDURES Final Result * Lactic Acid (09/09/2024 8:47 PM EST) Lactic Acid 0.8 0.5 - 2.0 mmol/L [facility] 09/09/2024 8:47 PM EST 09/09/2024 8:53 PM EST Narrative [facility] - 09/09/2024 9:09 PM EST NOT ON ICE Generic External Data Provider LAB BLOOD ORDERAB LES Final Result [facility] [address] [place] [address] [phone] * (ABNORMAL) CBC auto differential (09/09/2024 8:17 PM EST) Only the most recent of4 resultswithin the time period is included. White Blood Count 7.7 4.8 - 10.8 X10*3/uL [facility] Red Blood Count 4.72 4.60 - 5.80 X10*6/uL [facility] Hemoglobin 12.4(L) 14.0 - 18.0 g/dl [facility] Hematocrit 36.7(L) 42.0 - 52.0 % [facility] Mean Corpuscular Volume 77.8(L) 80.0 - 98.0 fL [facility] Mean Corpuscular Hemoglobin 26.3(L) 27.0 - 33.0 pg [facility] Mean Corpuscular HGB Conc 33.8 31.0 - 36.0 g/dl [facility] Red Cell Distribution Width 13.9 11.0 - 16.0 % [facility] Platelet Count 236 160 - 400 X10*3/uL [facility] Mean Platelet Volume 9.4 9.4 - 12.4 fL [facility] Neutrophils Percent Auto 71.7 45 - 73 % [facility] Imm Gran Pct Auto 0.1 0.0 - 0.4 % [facility] Lymphocytes Percent Auto 15.8(L) 20 - 40 % [facility] Monocytes Percent Auto 10.3 2 - 11 % [facility] Eosinophils Percent Auto 1.6 0 - 4 % [facility] Basophils Percent Auto 0.5 0 - 2 % [facility] NRBC Pct Auto 0.0 0.0 - 0.2 /100WBC [facility] Neutrophils Absolute Auto 5.5 2.0 - 8.3 x10*3/uL [facility] Imm Gran Abs Auto 0.01 0.00 - 0.03 X10*3/uL [facility] Lymphocytes Absolute Auto 1.2 1.2 - 4.9 X10*3/uL [facility] Monocytes Absolute Auto 0.8 0.1 - 1.2 X10*3/uL [facility] Eosinophils Absolute Auto 0.1 0.0 - 0.4 X10*3/uL [facility] Basophils Absolute Auto 0.0 0.0 - 0.2 X10*3/uL [facility] NRBC Abs Auto 0.000 0.0 - 0.012 X10*3/uL [facility] 09/09/2024 8:17 PM EST 09/09/2024 8:19 PM EST us Generic External Data Provider LAB BLOOD ORDERAB LES Final Result [facility] [address] [place] [phone] [phone] * (ABNORMAL) Comprehensive Metabolic Panel (09/09/2024 8:17 PM EST) Only the most recent of2 resultswithin the time period is included. Sodium 136 135 - 145 mmol/L [facility] Potassium 3.9 3.3 - 5.1 mmol/L [facility] Chloride 104 96 - 108 mmol/L [facility] Carbon Dioxide 21(L) 22 - 29 mmol/L [facility] Anion Gap 15 12 - 20 [facility] Urea Nitrogen (BUN) 15 9 - 16 mg/dL [facility] Creatinine, Serum 0.60 0.5 - 1.4 mg/dL [facility] Creatinine Clr Calc Pharmacy 178.3 [facility] Comment:eGFR (calculated fro m the MDRD study equation) and eCrCl(calculated from the Cockcroft-Gault equation) are based ondifferent parameters and may not yield comparable results.If eCrCl result is absurd, please check patient'sheight/weight. Estimated Glomerular Filt Rate >60 [facility] Comment:Chronic Kidney Disea se: Estimated GFR < 60 mL/min/[id number] Kidney Disease: Estimated GFR < 15 mL/min/1.73m2 Glucose 112 60 - 115 mg/dL [facility] Calcium 8.6 8.4 - 10.2 mg/dL [facility] Bilirubin, Total 0.4 0.0 - 1.0 mg/dL [facility] Aspartate Amino Transferase 18 5 - 37 U/L [facility] Alanine Aminotransferase 12 0 - 40 U/L [facility] Total Protein 7.4 6.5 - 8.0 g/dL [facility] Albumin Level 4.2 3.5 - 5.0 g/dL [facility] Alkaline Phosphatase 64 39 - 117 U/L [facility] 09/09/2024 8:17 PM EST 09/09/2024 8:19 PM EST us Generic External Data Provider LAB BLOOD ORDERAB LES Final Result Performing Organization Address [facility] de Phone Number [facility] [address] [place] [phone] * Urinalysis w/reflex microscopic (09/09/2024 6:42 PM EST) Color Urine Yellow [facility] Appearance Urine Clear [facility] PH >=9.0 5.0 - 9.0 [facility] Glucose Urine UA Negative Negative mg/dL [facility] Urine Blood Negative Negative [facility] Specific [place] - Urine 1.025 1.005 - 1.025 [facility] Urine Protein Negative Neg-Trace mg/dL [facility] Urine Ketones 15 Negative mg/dL [facility] Nitrite Urine Negative Negative [facility] Leukocyte Esterase Urine Negative Negative [facility] 09/09/2024 6:42 PM EST 09/09/2024 6:44 PM EST Narrative [facility] - 09/09/2024 6:59 PM EST Urine, Clean Catch us Generic External Data Provider LAB URINE ORDERAB LES Final Result Performing Organization Address [facility] [address] [place] [phone] * (ABNORMAL) Glucose, Whole Blood (09/01/2024 6:08 PM EST) Only the most recent of5 resultswithin the time period is included. Glucose, Whole Blood 151(H) 60 - 115 mg/dL [facility] Comment:METER #: [id number] 09/01/2024 6:08 PM EST 09/01/2024 6:15 PM EST us Generic External Data Provider LAB BLOOD ORDERAB LES Final Result Performing Organization Address [facility]/ZIP Co de Phone Number [facility] [address] [place] [phone] * CT Abdomen Pelvis w/ Contrast (09/01/2024 10:50 AM EST) Anatomical Region Laterality Modality Body, Pelvis, Abdomen Computed T omography 09/01/2024 10:5 0 AM EST Narrative 09/01/2024 6:48 PM EST ? [facility] ?[address] ?[place] [address] ? CT Scan Report ? Signed ? Patient: Bradford Torres ?MR#: [id number] ?? [id number] ? : 1995 ?Acct:[id number] ? Age/Sex: 29 / M ?ADM Date: 09/01/24 ? Loc: HO.ED ? Attending Dr: ? Ordering Physician: Ulises Dejesus MD ?? Date of Service: 09/01/24 ?? Procedure(s): CT abdomen pelvis w IV con ?? Accession Number(s): [id number] ? cc: Ulises Dejesus MD; [facility] ? Report Number: ?? [id number]: Total DLP = ??378.00 mGy-cm ? CLINICAL [...] DD/ 1050 ? TD/TT: 09/01/24 1050 ? Solar Field Service Technician: ? Procedure Note Aamir [place] - 09/01/2024 [place] [address] [place] [address] CT Scan Report Signed Patient: Bradford Torres JMR#: [id number] : 1995Acct:[id number] Age/Sex: 29 / MADM Date: 09/01/24 Loc: HO.ED Attending Dr: Ordering Physician: Ulises Dejesus MD Date of Service: 09/01/24 Procedure(s): CT abdomen pelvis w IV con Accession Number(s): [id number] cc: Ulises Dejesus MD; [facility] Report Number: [id number]: Total DLP = 378.00 mGy-cm CLINICAL HISTORY: [...] 09/01/24 1849 DD/ 1050 TD/TT: 09/01/24 1050 Solar Field Service Technician: [facility] External Provider IMG CT PROCEDURES Edited Result - Final * (ABNORMAL) Beta-Hydroxybutyrate (09/01/2024 9:30 AM EST) Only the most recent of2 resultswithin the time period is included. Beta-Hydroxybu tyrate 1.28(H) 0.02 - 0.27 mmol/L [facility] 09/01/2024 9:30 AM EST 09/01/2024 9:34 AM EST [facility] External Data Provider LAB BLOOD ORDERAB LES Final Result [facility] [address] [place] [phone] * C-reactive Protein (09/01/2024 9:30 AM EST) C Reactive Protein <0.10 < or = 0.50 mg/dL [facility] 09/01/2024 9:30 AM EST 09/01/2024 9:34 AM EST us Generic External Data Provider LAB BLOOD ORDERAB LES Final Result [facility] [address] [place] [phone] * XR Knee 1-2 Views Left (08/07/2024 5:27 AM EST) Anatomical Region Laterality Modality Lower Extremities, Knee Left Radiogra phic Imaging 08/07/2024 5:27 AM EST Narrative 08/07/2024 9:13 AM EST ? [facility] ?[address] ?[place] [address] ?XRay Report ? Signed ? Patient: Bradford Torres ?MR#: [id number] ?? [id number] ? : 1995 ?Acct:[id number] ? Age/Sex: 29 / M ?ADM Date: 08/07/24 ? Loc: HO.ED ? Attending Dr: ? Ordering Physician: Sedrick Grady MD ?? Date of Service: 08/07/24 ?? Procedure(s): XR knee LT 2V ?? Accession Number(s): [id number] ? cc: Everett Angulo MD; Sedrick Grady [...] DD/ 0527 ? TD/TT: 08/07/24 0532 ? Solar Field Service Technician: ? Procedure Note Donotuseinterpreter, Image - 08/07/[address] [address] XRay Report Signed Patient: Bradford Torres JMR#: [id number] : 1995Acct:[id number] Age/Sex: 29 / MADM Date: 08/07/24 Loc: HO.ED Attending Dr: Ordering Physician: Sedrick Grady MD Date of Service: 08/07/24 Procedure(s): XR knee LT 2V Accession Number(s): [id number] cc: Name,Everett ROSE; Sedrick Grady MD EXAMINATION: [...] 08/07/24 0910 DD/ 0527 TD/TT: 08/07/24 0532 Solar Field Service Technician: [facility] External Provider IMG XR PROCEDURES Edited Result - Final * (ABNORMAL) Urinalysis, Complete, with Reflex to Culture (08/05/2024 2:20 AM EST) Only the most recent of2 resultswithin the time period is included. Color Urine Yellow [facility] Appearance Urine Clear [facility] PH 6.5 5.0 - 9.0 [facility] Glucose Urine UA >=1000(A) Negative mg/dL [facility] Urine Blood Negative Negative [facility] Specific [place] - Urine 1.025 1.005 - 1.025 [facility] Urine Protein 30 (1+)(A) Neg-Trace mg/dL [facility] Urine Ketones Negative Negative mg/dL [facility] Nitrite Urine Negative Negative [facility] Leukocyte Esterase Urine Negative Negative [facility] RBC Urine 0-2 0 - 2 /HPF [facility] Urine WBC 0-5 0 - 5 /HPF [facility] Urine Squamous Epithelial Cell 0-2 0 - 2 /HPF [facility] Urine Bacteria None Seen None Seen [facility] Hyaline Casts, Urine 0-2 0 - 2 /LPF [facility] 08/05/2024 2:20 AM EST 08/05/2024 2:22 AM EST Narrative [facility] - 08/05/2024 2:45 AM EST Urine, Clean Catch Generic External Data Provider LAB URINE ORDERAB LES Final Result [facility] [address] [place] [phone] * Hold Red (08/05/2024 2:10 AM EST) Hold Red See Note [facility] Comment:Specimen held untest ed for 24 hours; Call to requestChemistry testing. 08/05/2024 2:10 AM EST 08/05/2024 2:20 AM EST Generic External Data Provider LAB BLOOD ORDERAB LES Final Result Performing Organization Address [facility]/ZIP Co de Phone Number [facility] [address] [place] [phone] * (ABNORMAL) Lipase (08/05/2024 2:10 AM EST) Only the most recent of2 resultswithin the time period is included. Pathologist [facility] Lipase 6(L) 8 - 78 U/L [facility] 08/05/2024 2:10 AM EST 08/05/2024 2:14 AM EST Generic External Data Provider LAB BLOOD ORDERAB LES Final Result Performing Organization Address [facility] de Phone Number [facility] [address] [place] [phone] * Basic Metabolic Panel (08/05/2024 2:10 AM EST) Only the most recent of3 resultswithin the time period is included. Pathologist [facility] Sodium 140 135 - 145 mmol/L [facility] Potassium 3.6 3.3 - 5.1 mmol/L [facility] Chloride 105 96 - 108 mmol/L [facility] Carbon Dioxide 27 22 - 29 mmol/L [facility] Anion Gap 12 12 - 20 [facility] Urea Nitrogen (BUN) 15 9 - 16 mg/dL [facility] Creatinine, Serum 0.87 0.5 - 1.4 mg/dL [facility] Creatinine Clr Calc Pharmacy 116.5 [facility] Comment:eGFR (calculated fro m the MDRD study equation) and eCrCl(calculated from the Cockcroft-Gault equation) are based ondifferent parameters and may not yield comparable results.If eCrCl result is absurd, please check patient'sheight/weight. Estimated Glomerular Filt Rate >60 [facility] Comment:Chronic Kidney Disea se: Estimated GFR < 60 mL/min/1.00j4Rmfnlx Kidney Disease: Estimated GFR < 15 mL/min/1.73m2 Glucose 88 60 - 115 mg/dL [facility] Calcium 9.1 8.4 - 10.2 mg/dL [facility] 08/05/2024 2:10 AM EST 08/05/2024 2:14 AM EST Generic External Data Provider LAB BLOOD ORDERAB LES Final Result Performing Organization Address [facility] Co de Phone Number [facility] [address] [place] [phone] * Hepatic Function Panel (08/01/2024 11:23 PM EST) Only the most recent of2 resultswithin the time period is included. Bilirubin, Total 0.5 0.0 - 1.0 mg/dL [facility] Bilirubin, Direct 0.2 0.0 - 0.5 mg/dL [facility] Aspartate Amino Transferase 19 5 - 37 U/L [facility] Alanine Aminotransferase 17 0 - 40 U/L [facility] Total Protein 6.7 6.5 - 8.0 g/dL [facility] Albumin Level 3.9 3.5 - 5.0 g/dL [facility] Alkaline Phosphatase 65 39 - 117 U/L [facility] 08/01/2024 11:2 3 PM EST 08/01/2024 11:26 PM EST Generic External Data Provider LAB BLOOD ORDERAB LES Final Result Performing Organization Address [facility] Co de Phone Number [facility] [address] [place] [phone] * Chlamydia/N. Gonorrhoeae RNA, TMA, Urogenitial (07/31/2024 3:08 PM EST) CT PCR NOT DETECTED Not Detect. [facility] Comment:A not detected test result does [...] psychologicalconsequences. NG PCR NOT DETECTED Not Detect. [facility] Comment:A not detected test result does [...] PM EST 07/31/2024 3:12 PM EST Narrative [facility] - 07/31/2024 5:21 PM EST Urine us Generic External Data Provider LAB MICROBIOLOGY - GENERAL ORDERABLES Final Result [facility] [address] [place] [phone] * VENOUS BLOOD GAS (07/31/2024 1:17 PM EST) VBG pH 7.43 7.32 - 7.43 [facility] Comment:METER #: [id number] additional_comment: Cb omoruna VBG PCO2 39 mmHg [facility] Comment:METER #: [id number] additional_comment: Cb omoruna VBG PO2 223 mmHg [facility] Comment:METER #: [id number] additional_comment: Cb omoruna VBG Base Excess 2.5 mmol/L [facility] Comment:METER #: [id number] additional_comment: Cb omoruna VBG HCO3 26 22 - 26 mmol/L [facility] Comment:METER #: [id number] additional_comment: Cb omoruna O2 Sat, Carlin 99.0 % [facility] Comment:METER #: [id number] additional_comment: Cb omoruna 07/31/2024 1:17 PM EST 07/31/2024 1:22 PM EST us Generic External Data Provider LAB BLOOD ORDERAB LES Final Result [facility] [address] [place] [phone] * POCT glucose manually resulted (07/31/2024 10:20 AM EST) Glucose Blood, POC 198 60 - 200 mg/dL Blood Capillary blood specimen / Unknown 07/31/2024 10:20 AM EST us Lindsey Cuellar PILOT CONTROL OPERATOR POINT OF CARE TEST ENTER/EDIT O RDERABLES Final Result * CT Cervical Spine w/o Contrast (07/16/2024 11:09 AM EST) Anatomical Region Laterality Modality Spine, C-spine Computed Tomogra phy 07/16/2024 11:0 9 AM EST Narrative 07/16/2024 4:27 PM EST ? [facility] ?[address] ?[place] [address] ? CT Scan Report ? Signed ? Patient: Torres,Bradford J ?MR#: [id number] ?? [id number] ? : 1995 ?Acct:[id number] ? Age/Sex: 29 / M ?ADM Date: 07/16/24 ? Loc: HO.ED ? Attending Dr: ? Ordering Physician: Jamilah Mcintyre NP ?? Date of Service: 07/16/24 ?? Procedure(s): CT cervical spine wo IV con ?? Accession Number(s): [id number] ? cc: Name,Everett ROSE; Jamilah Mcintyre NP [...] DD/ 1109 ? TD/TT: 07/16/24 1120 ? Solar Field Service Technician: BA ? Procedure Note Donotuseinterpreter, Image - 07/16/[address] [place] [address] [address] Scan Report Signed Patient: Bradford Torres JMR#: [id number] : 1995Acct:[id number] Age/Sex: 29 / MADM Date: 07/16/24 Loc: HO.ED Attending Dr: Ordering Physician: Jamilah Mcintyre NP Date of Service: 07/16/24 Procedure(s): CT cervical spine wo IV con Accession Number(s): [id number] cc: Name,Everett ROSE; Jamilah Mcintyre NP EXAMINATION: [...] 07/16/24 1624 DD/ 1109 TD/TT: 07/16/24 1120 Solar Field Service Technician: ZULAY [facility] External Provider IMG CT PROCEDURES Final Result * CT Sinus Facial Bones w/o Contrast (07/16/2024 11:01 AM EST) Anatomical Region Laterality Modality Computed Tomogra phy 07/16/2024 11:0 1 AM EST Narrative 07/16/2024 4:27 PM EST ? [facility] ?[address] ?[place] [address] ? CT Scan Report ? Signed ? Patient: BrianBradford Lopez ?MR#: [id number] ?? [id number] ? : 1995 ?Acct:[id number] ? Age/Sex: 29 / M ?ADM Date: 07/16/24 ? Loc: HO.ED ? Attending Dr: ? Ordering Physician: Jamilah Mcnityre PILOT CONTROL OPERATOR ?? Date of Service: 07/16/24 ?? Procedure(s): CT facial bones wo IV con ?? Accession Number(s): [id number] ? cc: Name,Everett ROSE; Jamilah Mcintyre NP [...] DD/ 1101 ? TD/TT: 07/16/24 1120 ? Solar Field Service Technician: BA ? Procedure Note Geovanna, Image - 07/16/[address] [address] [address] Scan Report Signed Patient: Bradford Torres R#: [id number] : 1995Acct:[id number] Age/Sex: 29 / MADM Date: 07/16/24 Loc: HO.ED Attending Dr: Ordering Physician: Jamilah Mcintyre NP Date of Service: 07/16/24 Procedure(s): CT facial bones wo IV con Accession Number(s): [id number] cc: Name,Everett ROSE; Jamilah Mcintyre NP EXAMINATION: [...] by: Paul Zuñiga MD 07/16/2024 04:24 PM [facility] Dictated By: Paul Zuñiga MD Signed By: <Electronically signed by Paul Zuñiga MD in OV> 11/26/24 1624 DD/ 1101 TD/TT: 07/16/24 1120 Solar Field Service Technician: ZULAY [facility] External Provider IMG CT PROCEDURES Final Result * CT Head w/o Contrast (07/16/2024 11:01 AM EST) Anatomical Region Laterality Modality Head, Neck Computed Tomogra phy 07/16/2024 11:0 1 AM EST Narrative 07/16/2024 4:27 PM EST ? [facility] ?[address] ?[place] [address] ? CT Scan Report ? Signed ? Patient: Bradford Torres ?MR#: [id number] ?? [id number] ? : 1995 ?Acct:[id number] ? Age/Sex: 29 / M ?ADM Date: 07/16/24 ? Loc: HO.ED ? Attending Dr: ? Ordering Physician: Jamilah Mcintyre NP ?? Date of Service: 07/16/24 ?? Procedure(s): CT head/brain wo IV con ?? Accession Number(s): [id number] ? cc: Name,Everett ROSE; Jamilah Mcintyre NP [...] DD/ 1101 ? TD/TT: 07/16/24 1120 ? Solar Field Service Technician: BA ? Procedure Note Aamir Austin - 07/16/[address] [place] [address] [address] Scan Report Signed Patient: Bradford Torres R#: [id number] : 1995Acct:[id number] Age/Sex: 29 / MADM Date: 07/16/24 Loc: HO.ED Attending Dr: Ordering Physician: Jamilah Mcintyre NP Date of Service: 07/16/24 Procedure(s): CT head/brain wo IV con Accession Number(s): [id number] cc: Everett Angulo MD; Jamilah Mcintyre NP [...] by: Paul Zuñiga MD 07/16/2024 04:24 PM [facility] Dictated By: Paul Zuñiga MD Signed By: <Electronically signed by Paul Zuñiga MD in OV> 07/16/24 1624 DD/ 1101 TD/TT: 07/16/24 1120 Solar Field Service Technician: ZULAY [facility] External Provider IMG CT PROCEDURES Final Result * (ABNORMAL) POCT A1C (02/26/2024 3:39 PM EDT) Hemoglobin A1C 9.3(A) 4.0 - 6.0 % Blood 02/26/2024 3:39 PM EDT Amna Urrutia [facility] POINT OF CARE TEST ENTER/EDIT O RDERABLES Final Result * Hepatitis C Antibody with Reflex to HCV, RNA, Quantitative, Real-Time PCR (11/15/2023 1:28 PM EDT) Hepatitis C Antibody Nonreactive Nonreactive [facility] Comment:Antibodies to HCV no t detected; does not exclude early acuteHCV infection. Blood Venous blood specimen / Unknown 11/15/2023 1:28 PM EDT 11/15/2023 4:04 PM EDT [facility] BLOOD ORDERABLES Final Resu lt [facility] [address] [place] [phone] * Lipid Panel, Standard (11/15/2023 1:28 PM EDT) Triglycerides 56 <150 mg/dL [facility] Comment:Desirable Triglyceri de: less than 150 mg/dLBorderline High Triglyceride 150-199 mg/dLHigh Triglyceride: 200-499 mg/dLVery High Triglyceride: greater than or equal to 5OO mg/dL Cholesterol 145 <200 mg/dL [facility] Comment:Desirable Cholestero l: less than 200 mg/dLBorderline High Cholesterol: 200-239 mg/dLHigh Cholesterol: greater than 239 mg/dL LDL Cholesterol Calculated 84 <100 mg/dL [facility] Comment:Desirable LDL: less than 100 mg/dLNear Optimal/Above Optimal LDL: 110- 129 mg/dLBorderline High LDL: 130-159 mg/dLHigh LDL: 160-189 mg/dLVery High LDL: greater than or equal to 190 mg/dL HDL Cholesterol 50 >40 mg/dL [facility] Comment:Desirable HDL: great er than 40 mg/dL Note: This HDL assay may give artificially low results in patients with liver disease. Blood Venous blood specimen / Unknown 11/15/2023 1:28 PM EDT 11/15/2023 4:04 PM EDT [facility] BLOOD ORDERABLES Final Resu lt [facility] [address] [place] [phone] * HIV-1 RNA, Quantitative, Real-Time PCR with Reflex to Genotype (RTI, PI, Integrase) (01/06/2023 10:25 AM EDT) HIV 1 RNA, QN PCR NOT DETECTED copies/mL [facility], HIV 1 RNA, QN PCR NOT DETECTED Log copies/mL [facility], Comment: REFERENCE RANGE: NOT DETECTED copies/mL ?NOT DETECTED ??Log copies/mL This test was performed using Real-Time Polymerase Chain Reaction. Reportable range is 20 to 10,000,000 copies/mL (1.30-7.00 Log copies/mL). 01/06/2023 10:2 5 AM EDT 01/06/2023 10:26 AM EDT Narrative [facility] - 01/11/2023 1:53 AM EDT FASTING:NO SPECIMEN COLLECTED AT PROVIDER OFFICE. FASTING: NO Amna Urrutia [facility] BLOOD ORDERABLES Final Resu lt Performing Organization Address City/[facility] Co de Phone Number [facility] [address] [facility], [place] [address] [employer]/[facility] [place], [address] [place] [address] from Last 3 Months or Most Recently Relevant to Health Maintenance Insurance [facility] C3 HSN FULL DENTAL - [place] OF [place] Care Teams Column Precaster Relationship Specialty Start Date End Date Sahil Chen CNP [address] [place] [phone] PCP - General Family Medicine 10/09/24 Chris Pack Jr Lubricating Machine TenderPhysician Ophthalmologist 09/04/24
--- OUTSIDE RECORDS SUMMARY | 2024-10-11 18:31 | XMS_ITS | Encounter Summary ---
Author Organization [employer] Address [address] [place] [address] Care Team Providers Care Freight Separator Name Role Phone Amna Urrutia Primary Care Provider [phone] Adele, Everett ROSE Primary Care Provider [phone] Sahil Chen CNP Primary Care Provider [phone] Reason for Visit * Reason Onset Date Comments reaction to medication 10/24/2022 Encounter Details Date Type Department Care Team ([facility] st Contact Info) Description 10/24/2022 Telephone [facility] [address] [place] [address] Marycruz Oseguera DDS [address] [place] [phone] reaction to medication Social History Tobacco Use [...] Description 11/27/2024 2:45 PM EDT Office Visit [facility] [address], [place] [phone] Sahil Chen CNP [address] [place] [address] documented as of this encounter Visit Diagnoses Not on filedocumented in this encounter Care Teams Freight Separator Relationship Specialty Start Date End Date Amna Urrutia FNP [address] [place] [phone] PCP - General Family Medicine 01/01/23 04/18/24 Name, MD Everett [address] [place] [phone] PCP - General Internal Medicine 04/19/24 10/08/24 Sahil Chen CNP [address] [place] [address] PCP - General Family Medicine 10/09/24 Chris Pack Jr Quality InternshipOffice Receptionist 09/04/24 documented as of this encounter
[2024-10-11 18:35] LABS: MANUAL DIFF FLAG NO
[2024-10-11 18:48] LABS: Basophils Absolute Auto 0.1 X10*3/uL (0.0-0.2); Basophils Percent Auto 0.4 % (0-2); Eosinophils Percent Auto 0.3 % (0-4); Hematocrit 40.4 % (42.0-52.0); Hemoglobin 13.7 g/dl (14.0-18.0); Imm Gran Abs Auto 0.03 X10*3/uL (0.00-0.03); Imm Gran Pct Auto 0.3 % (0.0-0.4); Lymphocytes Absolute Auto 2.1 X10*3/uL (1.2-4.9); Lymphocytes Percent Auto 18.1 % (20-40); Mean Corpuscular HGB Conc 33.9 g/dl (31.0-36.0); Mean Corpuscular Hemoglobin 25.9 pg (27.0-33.0); Mean Corpuscular Volume 76.5 fL (80.0-98.0); Mean Platelet Volume 10.2 fL (9.4-12.4); Monocytes Absolute Auto 0.9 X10*3/uL (0.1-1.2); Monocytes Percent Auto 7.8 % (2-11); Neutrophils Absolute Auto 8.4 x10*3/uL (2.0-8.3); Neutrophils Percent Auto 73.1 % (45-73); Platelet Count 270 X10*3/uL (160-400); Red Blood Count 5.28 X10*6/uL (4.60-5.80); Red Cell Distribution Width 13.7 % (11.0-16.0); White Blood Count 11.5 X10*3/uL (4.8-10.8)
[2024-10-11 18:52] LABS: Alanine Aminotransferase 14 U/L (0-40); Albumin Level 4.5 g/dL (3.5-5.0); Alkaline Phosphatase 83 U/L (39-117); Anion Gap 16 (12-20); Aspartate Amino Transferase 18 U/L (5-37); Beta-Hydroxybutyrate 0.41 mmol/L (0.02-0.27); Bilirubin Total 0.6 mg/dL (0.0-1.0); Blood Urea Nitrogen 25 mg/dL (9-16); Calcium 10.3 mg/dL (8.4-10.2); Carbon Dioxide 22 mmol/L (22-29); Chloride 102 mmol/L (96-108); Creatinine Clr Calc Pharmacy 100.2; Estimated Glomerular Filt Rate > 60; Glucose Random 136 mg/dL (60-115); Potassium 3.9 mmol/L (3.3-5.1); Sodium 136 mmol/L (135-145); Total Protein 8.4 g/dL (6.5-8.0)
[2024-10-11 19:02] LABS: Troponin-I High Sensitivity < 2.7 ng/L (<3.5-35.0)
[2024-10-11 19:20] LABS: Influenza A PCR NEGATIVE (Negative); Influenza B PCR NEGATIVE (Negative); Resp Syncy Virus RNA Qual PCR NEGATIVE (Negative); SARS COV2 PCR INHOUSE NEGATIVE (Negative)
[2024-10-11 21:07] VITALS: BP 118/72; PULSE 95; RESP 18; TEMP 37.2; O2SAT 97
[2024-10-11 22:23] VITALS: BP 134/77; PULSE 84; RESP 16; TEMP 36.8; O2SAT 100
[2024-10-11] MEDS: Morphine Sulfate 4 MG/ML CARTRIDGE IVPUSH (22:34)
[2024-10-11] MEDS: 0.9 % Sodium Chloride 1,000 ML 999 ML IV (22:34)
[2024-10-11] MEDS: ondansetron HCL 4 MG/2 ML VIAL IVPUSH (22:34)
[2024-10-11 23:54] VITALS: BP 101/73; PULSE 82; RESP 16; TEMP 37.1; O2SAT 100
[2024-10-12 00:06] VITALS: BP 101/73; PULSE 82; RESP 16; TEMP 37.1; O2SAT 100
== END 2024-10-12 00:21 | disposition home or self-care (01) ==
PROVIDERS: Physician Assistant Medical; Emergency Provider Internal Medicine; PCP Internal Medicine Geriatric Medicine
DX: K52.9 Noninfective gastroenteritis and colitis, unspecified (principal); R11.2 Nausea with vomiting, unspecified; R07.89 Other chest pain; E10.9 Type 1 diabetes mellitus without complications; R10.30 Lower abdominal pain, unspecified; Z79.4 Long term (current) use of insulin; Z79.899 Other long term (current) drug therapy; Z03.818 Encounter for observation for suspected exposure to other biological agents ruled out
CPT/HCPCS: 0241U; 74176; 80053; 82010; 82947; 83735; 84484; 85025; 93005; 96361; 96374; 96375; 99284; J2270; J2405

== ENCOUNTER → 2024-10-11 17:52 | Outpatient (BNV) | payer MEDICAID, SELFPAY | PROVIDERS: Emergency Provider Internal Medicine; PCP Internal Medicine Geriatric Medicine; Visit Provider Internal Medicine | DX: R94.31 Abnormal electrocardiogram [ECG] [EKG] (principal); R07.9 Chest pain, unspecified | CPT/HCPCS: 93010 ==

== ENCOUNTER → 2024-10-11 22:08 | Outpatient (BNV) | payer MEDICAID, SELFPAY | PROVIDERS: Emergency Provider Internal Medicine; PCP Internal Medicine Geriatric Medicine; Visit Provider General Practice | DX: R10.32 Left lower quadrant pain (principal) | CPT/HCPCS: 74176 ==

== ENCOUNTER 2024-10-18 14:45 | Outpatient (AMB) | payer MEDICAID, SELFPAY ==
--- NOTE | 2024-10-18 14:48 | A.OFFVIS_ITS ---
Vital Signs 10/18/24 14:56 Height 6 ft Weight 136 lb 10.986 oz BMI 18.5 BP 106/72 Blood Pressure Location Rt brachial Position Sitting Pulse 99 Pulse Source Pulse Oximeter Pulse Oximetry (%) 98 Oxygen Delivery Method Room Air Intake Visit Reasons: Type 2 diabetes mellitus with hyperglycemia Intake Note: Patient presents today for a follow-up on Type 1 Diabetes Mellitus: Last Diabetic eye exam was on: DUE Last Podiatry exam was on: Does not see a Shipbuilding Draftsperson Most recent HbA1c: 8.1%, 10/18/2024 Random Glucose- 333 mg/dL, Today Compressor Engineer Required: No Accompanied by: Self / Same As Patient Allergies diphenhydramine [From Benadryl] Allergy (Verified 10/11/24 17:59) Anaphylaxis haloperidol [From Haldol] Allergy (Verified 09/09/24 16:06) Difficulty Swallowing lorazepam [From Ativan] Adverse Reaction (Verified 09/09/24 16:06) Difficulty Breathing metoclopramide [From Reglan] Adverse Reaction (Verified 09/09/24 16:06) Anxiety HPI Comments Details: The patient is a 29 year old male with type 1 diabetes diagnosed at age 12. He is seen in f/u today. His initial consult was on 03/28/24 at which time he expressed an interest in going on an insulin pump. Basal insulin was changed to Tresiba at that visit due to low sugars and labile readings. He has a history of gastroparesis and Gates's esophagitis. He previously was followed by a GI specialist in [place] and has an initial appointments with GI at [facility] to establish care. Last appt in [facility] was 05/23/24 with an A1C of 8.8% Hgb A1C 10/18/24 8.1% Current diabetes medication tresiba 20 units NovoLog t.i.d. with meals 1 unit for every 35 over 135 in 0 1-15 carbohydrate ratio. He was using a dexcom sensor: He carries a source of sugar with him at all times and is familiar with ketone testing. He lives with his cousin who is 63 who also has health issues. Dexcom average glucose: 207 14 day continuous glucose monitor report reviewed Glucose Managment indicator 92 % Days with CGM data 8.3 % TIme in ranges: 31 % very high (above 250) 30 % high ?(181-250) 35 % in range ?(70-180] 3 % low (69-55) 1 % ?very low (below 54) 40 Standard Deviation Interpretation running slightly above target with mild transient lows Has eyes checked yearly, he is due Has neuropathy:takes on gabapentin on occasion when he has symptoms abdominal was initially even by a neurologist, no feet symptoms No nephropathy 10/11/2024 eGFR>60 Denies history of CAD. No chest pain, dyspnea or symptoms of claudication Has had diabetes education in the past Diet/Carb counting:feels experienced in carb counting an dis accuraten Weight: [stable] [+] prior episodes of DKA. Had had one prior severe episodes of hypoglycemia requiring help or hospitalization. [facility] Medical History Abdominal pain Dental infection Colitis DKA (diabetic ketoacidosis) Hyperglycemia 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 type 1 Surgical History History of esophagogastroduodenoscopy (EGD) Family History Paternal Grandmother Breast cancer Family/Other Brain cancer Social History Household Members: Other Household Members Other:: cousin Housing: House Do you presently have visiting nurse or other home services: No Alcohol intake: current Alcohol intake frequency: holidays/special occasions only Patient Tobacco Use Status: Current everyday Tobacco user Tobacco use type: Cigarette Cigarette Packs Per Day: 0 Cigarettes Per Day: 0 Years Smoked: 10 e-Cigarette/Vaping Use: Never Used Second Hand Smoke Exposure: No Substance Use Type: Marijuana service: No Current occupational status: employed 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 Absence of acromegalic features. Neck exam reveals nl size thyroid about 15 gms. No thyroid nodules palpable. Heart S1 S2, Reg R/R. No M/R G. Skin exam reveals absence of vitiligo or acanthosis nigricans. Visual exam of foot performed. No ulcerations or open lesions. No inter digit maceration or fissuring. onychomycosis, great toe nails, discoloration without thickening no callouses. Sensation intact to monofilament exam. Vibratory sensation is normal with 128 Hz tuning fork. Office Procedures Glucose Monitoring Details Details: see [facility] [address] - Glucose monitoring, continuous-physician I&R Procedure code (CPT) selection complete Results AMB Hemoglobin A1c AMB Hemoglobin A1c 8.1 % Last Edit by VETO Whitehead on 10/18/24 15:15 Results Reviewed Results Reviewed: Laboratory Last Values Glucose (Clinic) 333 mg/dL (60-115) H 10/18/24 15:01 Hgb A1c (Clinic) 8.1 % (4.0-6.0) H 10/18/24 15:14 Assessment & Plan Assessment & Plan (1) Hypercalcemia: Code(s): E83.52 - Hypercalcemia Category: Medical Plan: He has no history of hypercalcemia. Calcium 10.3 which most likely is a lab aberrant here at [facility]. He was asked to have a calcium, albumin vitamin-D and PTH at [facility]. Plan 29-year-old type 1 diabetic with gastroparesis with improving A1c to 8.1 %. Plan is for him to meet with Lorri MORGAN for pre pump training 1 session and then to go on to have his full training session for the islet pump. He should be an excellent candidate as he is good at carbohydrate estimation. Unable to increase basal insulin to improve A1c as I believe it would cause nocturnal lows with this patient. We discussed possibly changing the correction factor to give slightly more insulin in decided to wait until he goes on a pump which should occur fairly quickly. We discussed while on pump need to announce his meals as I the small medium or large for carbohydrates, to always have a glucometer as his pump would need manually entered glucose readings every 4 hours if the sensor is not working. He was advised to clam picker prescriptions for ketone and written instructions were given. Orders: Orders Albumin Level Today E83.52 - Hypercalcemia Vitamin D 25-OH Total Today E83.52 - Hypercalcemia Parathyroid Hormone Intact Today E83.52 - Hypercalcemia AMB Glucose Monitoring Today E10.9 - Type 1 diabetes mellitus without complications Calcium Today E83.52 - Hypercalcemia AMB Hemoglobin A1c Today E10.9 - Type 1 diabetes mellitus without complications Medications: Discontinued glucagon 3 mg/actuation (Baqsimi) P.R.N. for unresponsive hypoglycemia. Check to see if patient breathing and pulse, initiate CPR if needed. Call 911. Use when patient can not self treat low sugar. [place] once, position lying on the side, repeat again in 15 minutes. Discontinued Reason: Duplicate 3 mg intranasal BID 30 days PRN 2 ea 1RF unresponsive hypoglycemia MDD 6mg E10.9 - Type 1 diabetes mellitus without complications Patient Instructions: Take 15 carb carbohydrate grams to treat a low sugar (3-4 glucose tablets, half a glass of juice or 15 carbohydrate grams of soft candy such as gummie snacks). Recheck your sugar in 15 minutes and re-treat again with 15 carbohydrate grams if low or still with symptoms. Do not drive a car or operate machinery if you do not know what your blood sugar is, if it is low or in excess of 300. The patient was counseled to achieve a target A1C of 7% (154 avg). Fasting blood sugars should be 90-130 in the morning and less than 180 two hours after meals. Reviewed the relationship between poor diabetic control and the development of complications. Check your feet daily looking for any signs of infection, drainage, redness, ulceration and seek medical attention if this occurs. Break in shoes gradually and do not wear open-toed shoes or walk stocking footed or barefooted. Symptoms of DKA (diabetic ketoacidosis): early: frequent urination, dry mouth, fatigue, feeling ill, severe symptoms: ketones in the urine, abdominal pain, marcial sea, vomiting and weakness. It is important to hydrate with sugar free liquids every 15-30 minutes and bring the sugars down to normal levels. If you are moderate or severe with ketones or unable to bring glucose to less than 200, go to the emergency room. Coding Level of Care Code Est Pt Level 4 (37524) Complex EM visit Add On G2211 Diagnoses Hypercalcemia E83.52 CPT Codes Details - CPT: 50441 - Glucose monitoring, continuous-physician I&R ([id number]) Time Spent (min) 35 Comment Time spent reviewing labs/provider notes, glucose,sensor reports, face to face, chart doc
[2024-10-18 14:56] VITALS: BP 106/72; PULSE 99; O2SAT 98; BMI 18.5
[2024-10-18 15:06] LABS: Glucose, Whole Blood 333 mg/dL (60-115)
--- OUTSIDE RECORDS SUMMARY | 2024-10-18 16:54 | XMS_ITS | Encounter Summary ---
Author Organization [employer] Address [address] [facility] 7t [place] [address] Care Team Providers Care Butcher Name Role Phone Amna Urrutia Primary Care Provider [phone] Adele, Everett ROSE Primary Care Provider [phone] Sahil Chen CNP Primary Care Provider [phone] Reason for Visit * Reason Onset Date Comments Med Refill 05/30/2023 Encounter Details Date Type Department Care Team (Late st Contact Info) Description 05/30/2023 Refill [facility] [address] [place] [address] Amna Urrutia FNP [address] [place] [address] Social History Tobacco Use Types Packs/Day Years [...] 2:45 PM EDT Office Visit [facility] [address] [place] [address] Sahil Chen CNP [address] [place] [address] documented as of this encounter Visit Diagnoses Not on filedocumented in this encounter Additional Health Concerns Assessment Noted Time PHQ-9 Depression Total Score: 16 023 8:52 AM EDT documented as of this encounter Care Teams Butcher Relationship Specialty Start Date End Date Amna Urrutia FNP [address] [place] [address] PCP - General Family Medicine 01/01/23 04/18/24 Everett Angulo MD [address] [place] [address] PCP - General Internal Medicine 04/19/24 10/08/24 Sahil Chen CNP [address] [place] [address] PCP - General Family Medicine 10/09/24 Chris Pack Jr Manager Of TaxAssociate Professor Of Radiology 09/04/24 documented as of this encounter
--- OUTSIDE RECORDS SUMMARY | 2024-10-18 16:54 | XMS_ITS | Encounter Summary ---
Author Organization [employer] Address [address] [facility] 7t [place] [address] Care Team Providers Care Assembly Hand Name Role Phone Amna Urrutia Primary Care Provider [phone] Adele, Everett ROSE Primary Care Provider [phone] Sahil Chen CNP Primary Care Provider [phone] Reason for Visit * Reason Onset Date Comments Nurse Triage 05/30/2023 Encounter Details Date Type Department Care Team (Late st Contact Info) Description 05/30/2023 Telephone [facility] [address] [place] [address] Amna Urrutia FNP [address] [place] [address] Nurse Triage Social History Tobacco Use Types [...] obtain discharge summary for patient seen [place] [facility] [place]23 following head injury at work. Scheduled for follow up below Future Appointments Date Time Provider Department Center 05/31/2023 11:30 AM Denice Rubin MD [facility] * Telephone Encounter - Marline Vega RN - 05/30/2023 1:27 PM EDT Call to Bradford Torres, reports having been seen at [facility] 05[place] due to [...] 05/31/2023 11:30 AM Denice Rubin MD [facility] Video visit offer not recorded Positive Triage [...] Office Visit [facility] [address] [place] [address] Sahil Chen CNP [address] [place] [address] documented as of this encounter Visit Diagnoses Not on filedocumented in this encounter Additional Health Concerns Assessment Noted Time PHQ-9 Depression Total Score: 16 023 8:52 AM EDT documented as of this encounter Care Teams Assembly Hand Relationship Specialty Start Date End Date Amna Urrutia FNP [address] [place] [address] PCP - General Family Medicine 01/01/23 04/18/24 Name, MD Everett [address] [place] [address] [phone] PCP - General Internal Medicine 04/19/24 10/08/24 Sahil Chen CNP [address] [place] [address] PCP - General Family Medicine 10/09/24 Chris Pcak Jr Baked And Graphite InspectorMuseum Host/Hostess 09/04/24 documented as of this encounter
--- OUTSIDE RECORDS SUMMARY | 2024-10-18 16:54 | XMS_ITS | Encounter Summary ---
Author Organization [employer] Address [address] [facility] 7t [place] [address] Care Team Providers Care Manager Linux Name Role Phone Amna Urrutia Primary Care Provider [phone] Adele, Everett ROSE Primary Care Provider Sahil Chen CNP Primary Care Provider [phone] Reason for Visit * Reason Comments Med Refill Encounter Details Date Type Department Care Team ([facility] st Contact Info) Description 10/04/2023 Refill [facility] [address] [place] [address] Amna Urrutia FNP [address] [place] [address] Type 1 diabetes mellitus with hyperglycemia ([facility]) Social History Tobacco Use Types [...] 2:45 PM EDT Office Visit [facility] [address] [place] [address] Sahil Chen CNP [address] [place] [address] documented as of this encounter Visit Diagnoses Diagnosis Type 1 diabetes mellitus with hyperglycemia (CMS/HCC) documented in this encounter Additional Health Concerns Assessment Noted Time PHQ-9 Depression Total Score: 16 023 8:52 AM EDT documented as of this encounter Care Teams Manager Linux Relationship Specialty Start Date End Date Amna Urrutia FNP [address] [place] [address] PCP - General Family Medicine 01/01/23 04/18/24 Everett Angulo MD [address] [place] [address] PCP - General Internal Medicine 04/19/24 10/08/24 Sahil Chen CNP [address] [place] [address] PCP - General Family Medicine 10/09/24 Chris Pack Jr Lens Grinder RoughWine Manager 09/04/24 documented as of this encounter
--- OUTSIDE RECORDS SUMMARY | 2024-10-18 16:54 | XMS_ITS | Encounter Summary ---
Author Organization [employer] Address [address] [facility] 7t [place] [address] Care Team Providers Care Bending Shed Worker Name Role Phone Amna Urrutia Primary Care Provider [phone] Adele, Everett ROSE Primary Care Provider [phone] Sahil Chen CNP Primary Care Provider [phone] Reason for Visit * Reason Onset Date Comments Med Refill 07/15/2023 Encounter Details Date Type Department Care Team (Late st Contact Info) Description 07/15/2023 Refill [facility] [address] [place] [address] Sandra Leal MD [address] [place] [address] Social History Tobacco Use Types Packs/Day Years [...] 11/27/2024 2:45 PM EDT Office Visit [facility] [address] [place] [address] Sahil Chen CNP [address] [place] [address] documented as of this encounter Visit Diagnoses Not on filedocumented in this encounter Additional Health Concerns Assessment Noted Time PHQ-9 Depression Total Score: 16 023 8:52 AM EDT documented as of this encounter Care Teams Bending Shed Worker Relationship Specialty Start Date End Date Amna Urrutia FNP [address] [place] [address] PCP - General Family Medicine 01/01/23 04/18/24 Everett Angulo MD [address] [place] [address] PCP - General Internal Medicine 04/19/24 10/08/24 Sahil Chen CNP [address] [place] [address] PCP - General Family Medicine 10/09/24 Chris Pack Jr Tester Food ProductsNature Photographer 09/04/24 documented as of this encounter
--- OUTSIDE RECORDS SUMMARY | 2024-10-18 16:54 | XMS_ITS | Encounter Summary ---
Author Organization [employer] Address [address] [facility] 7t [place] [address] Care Team Providers Care Warehouse Worker 2Nd Shift Name Role Phone Amna Urrutia Primary Care Provider [phone] Adele, Everett ROSE Primary Care Provider [phone] Sahil Chen CNP Primary Care Provider [phone] Reason for Visit * Reason Onset Date Comments Reschedule 02/14/2024 Encounter Details Date Type Department Care Team ([facility] st Contact Info) Description 02/14/2024 Telephone [facility] [address] [place] [address] Amna Urrutia FNP [address] [place] [address] Reschedule Social History Tobacco Use Types Packs/Day [...] to reschedule 02/13 follow up extended appointment. Ammonia Solution Preparer attempted to reschedule but no availability. Please contact pt at [phone] documented in this encounter Plan of Treatment Upcoming Encounters Date Type Department Care Team (Late st Contact Info) Description 11/27/2024 2:45 PM EDT Office Visit [facility] [address] [place] [address] Sahil Chen CNP [address] [place] [address] documented as of this encounter Visit Diagnoses Not on filedocumented in this encounter Additional Health Concerns Assessment Noted Time PHQ-9 Depression Total Score: 10 024 1:01 PM EDT documented as of this encounter Care Teams Warehouse Worker 2Nd Shift Relationship Specialty Start Date End Date Amna Urrutia FNP [address] [place] [address] PCP - General Family Medicine 01/01/23 04/18/24 Everett Angulo MD 230 [place], [place] [phone] PCP - General Internal Medicine 04/19/24 10/08/24 Sahil Chen CNP [address] [place], [place] [phone] PCP - General Family Medicine 10/09/24 Chris Pack Jr Heel ScorerPainter Foreman 09/04/24 documented as of this encounter
--- OUTSIDE RECORDS SUMMARY | 2024-10-18 16:54 | XMS_ITS | Encounter Summary ---
Author Organization [employer] Address [address] [facility] 7t [place] [address] Care Team Providers Care Kitchen Cleaner Name Role Phone Amna Urrutia Primary Care Provider [phone] Adele, Everett ROSE Primary Care Provider [phone] Sahil Chen CNP Primary Care Provider [phone] Reason for Visit * Reason Comments Med Refill Encounter Details Date Type Department Care Team ([facility] st Contact Info) Description 05/30/2023 Refill [facility] [address] [place] [address] Amna Urrutia FNP [address] [place] [address] Social History Tobacco Use Types Packs/Day Years [...] Description 11/27/2024 2:45 PM EDT Office Visit [facility] [address] [place] [address] Sahil Chen CNP [address] [place] [address] documented as of this encounter Visit Diagnoses Not on filedocumented in this encounter Additional Health Concerns Assessment Noted Time PHQ-9 Depression Total Score: 16 023 8:52 AM EDT documented as of this encounter Care Teams Kitchen Cleaner Relationship Specialty Start Date End Date Amna Urrutia FNP [address] [place] [address] PCP - General Family Medicine 01/01/23 04/18/24 Everett Angulo MD [address] [place] [address] PCP - General Internal Medicine 04/19/24 10/08/24 Sahil Chen CNP [address] [place] [address] PCP - General Family Medicine 10/09/24 Chris Pack Jr Spring TesterService Station Equipment Mechanic 09/04/24 documented as of this encounter
--- OUTSIDE RECORDS SUMMARY | 2024-10-18 16:54 | XMS_ITS | Encounter Summary ---
Author Organization [employer] Address [address] [facility] 7t [place] [address] Care Team Providers Care Air Launch Weapons Technician Name Role Phone Amna Urrutia Primary Care Provider [phone] Adele, Everett ROSE Primary Care Provider [phone] Sahil Chen CNP Primary Care Provider [phone] Reason for Visit * Reason Onset Date Comments Med Refill 07/15/2023 Encounter Details Date Type Department Care Team ([facility] st Contact Info) Description 07/15/2023 Refill [facility] [address] [place], [place] [phone] Amna Urrutia FNP [address] [place] [address] Social History Tobacco Use Types Packs/Day Years [...] Description 11/27/2024 2:45 PM EDT Office Visit [facility] [address] [place] [address] Sahil Chen CNP 230 [place], [place] [phone] documented as of this encounter Visit Diagnoses Not on filedocumented in this encounter Additional Health Concerns Assessment Noted Time PHQ-9 Depression Total Score: 16 023 8:52 AM EDT documented as of this encounter Care Teams Air Launch Weapons Technician Relationship Specialty Start Date End Date Amna Urrutia FNP [address] [place] [address] PCP - General Family Medicine 01/01/23 04/18/24 Everett Angulo MD [address] [place] [address] [phone] PCP - General Internal Medicine 04/19/24 10/08/24 Sahil Chen CNP [address] [place] [address] [phone] PCP - General Family Medicine 10/09/24 Chris Pack Jr Library MonitorCommunity Ambassador 09/04/24 documented as of this encounter
--- OUTSIDE RECORDS SUMMARY | 2024-10-18 16:54 | XMS_ITS | Encounter Summary ---
Author Organization [facility] Address [address] [place] [address] Phone Care Team Providers Care Psych Np Name Role Phone Santos Mueller MD Primary Care Provider [phone] Encounter Details Date Type Department Care Team (Late st Contact Info) Description 07/28/2023 Documentation Only [facility], [address] [place] [address] Santos Mueller MD [address] [place] [address] Social History Tobacco Use Types [...] on filedocumented in this encounter Care Teams Psych Np Relationship Specialty Start Date End Date Santos Mueller MD [address] [place] [address] PCP - General Emergency Medicine 07/28/23 documented as of this encounter
--- OUTSIDE RECORDS SUMMARY | 2024-10-18 16:54 | XMS_ITS | Encounter Summary ---
Author Organization [employer] Address [address] [facility] 7t [place] [address] Care Team Providers Care Retort Condenser Attendant Name Role Phone mAna Urrutia Primary Care Provider [phone] Name, Everett ROSE Primary Care Provider [phone] Sahil Chen CNP Primary Care Provider [phone] Reason for Visit * Reason Onset Date Comments Med Refill 07/17/2023 Encounter Details Date Type Department Care Team (Late st Contact Info) Description 07/17/[address] [facility] [address] [place] [address] Amna Urrutia FNP [address] [place] [address] Social History Tobacco Use Types Packs/Day Years [...] [facility] [address] [place] [address] Sahil Chen CNP 230 [place] [address] documented as of this encounter Visit Diagnoses Not on filedocumented in this encounter Additional Health Concerns Assessment Noted Time PHQ-9 Depression Total Score: 16 023 8:52 AM EDT documented as of this encounter Care Teams Retort Condenser Attendant Relationship Specialty Start Date End Date Amna Urrutia FNP [address] [place] [address] PCP - General Family Medicine 01/01/23 04/18/24 Everett Angulo MD [address] [place] [address] PCP - General Internal Medicine 04/19/24 10/08/24 Sahil Chen CNP [address] [place] [address] PCP - General Family Medicine 10/09/24 Chris Pack Jr Channel OpenerBusiness Mail Entry Clerk 09/04/24 documented as of this encounter
--- OUTSIDE RECORDS SUMMARY | 2024-10-18 16:54 | XMS_ITS | Encounter Summary ---
Author Organization [employer] Address 75 [facility] 7t [place] [address] Care Team Providers Care Museum Technician Name Role Phone Amna Urrutia Primary Care Provider [phone] Adele, Everett ROSE Primary Care Provider [phone] Sahil Chen CNP Primary Care Provider [phone] Reason for Visit * Reason Comments Med Refill Encounter Details Date Type Department Care Team ([facility] st Contact Info) Description 09/11/2023 Refill [facility] [address] [place] [address] Amna Urrutia FNP 230 [place] [address] Type 1 diabetes mellitus with hyperglycemia ([facility]) Social History Tobacco Use Types [...] Description 11/27/2024 2:45 PM EDT Office Visit [facility]INE [address] [place] [address] Sahil Chen CNP 230 [place] [address] documented as of this encounter Visit Diagnoses Diagnosis Type 1 diabetes mellitus with hyperglycemia (CMS/HCC) documented in this encounter Additional Health Concerns Assessment Noted Time PHQ-9 Depression Total Score: 16 023 8:52 AM EDT documented as of this encounter Care Teams Museum Technician Relationship Specialty Start Date End Date Amna Urrutia FNP [address] [place] [address] PCP - General Family Medicine 01/01/23 04/18/24 Everett Angulo MD [address] [place] [address] [phone] PCP - General Internal Medicine 04/19/24 10/08/24 Sahil Chen CNP [address] [place] [address] [phone] PCP - General Family Medicine 10/09/24 Chris Pack Jr Articulation OfficerCosmetology Teacher 09/04/24 documented as of this encounter
--- OUTSIDE RECORDS SUMMARY | 2024-10-18 16:54 | XMS_ITS | Clinical Summary ---
Author Organization [facility], Address [address] [place] [address] [place] [address] Phone Care Team Providers Care Maintenance Of Way Superintendent Name Role Phone Santos Mueller MD Primary Care Provider [phone] Allergies Active Allergy Reactions Criticality Noted Date [...] Documentation Only [facility] [address] [place] [place] [address] Jessica Sprague 08/05/2024 Documentation Only [facility] [address] [place] [address] Jessica Sprague 08/05/2024 Documentation Only [facility] [address] [place] [address] Jessica Sprague from Last 3 [...] 05/28/2024 02/26/2024 Insurance MEDICAID [place] Care Teams Maintenance Of Way Superintendent Relationship Specialty Start Date End Date Santos Mueller MD 230 [place] [address] PCP - General Emergency Medicine 07/28/23
--- OUTSIDE RECORDS SUMMARY | 2024-10-18 16:54 | XMS_ITS | Encounter Summary ---
Author Organization [employer] Address 75 [facility] 7t [place] [address] Care Team Providers Care Veterinary Medicine Teacher Name Role Phone Amna Urrutia Primary Care Provider [phone] Adele, Everett ROSE Primary Care Provider [phone] Sahil Chen CNP Primary Care Provider [phone] Reason for Visit * Reason Onset Date Comments Appointment Request 09/08/2023 Encounter Details Date Type Department Care Team ([facility] st Contact Info) Description 09/08/2023 Telephone [facility] MEDICINE 230 [place] [address] Amna Urrutia FNP [address] [place] [address] Appointment Request Social History Tobacco Use Types [...] to reschedule missed appt on 09/06 however blurb writer was not able to offer apptdue to the provider did not have any availably documented in this encounter Plan of Treatment Upcoming Encounters Date Type Department Care Team (Late st Contact Info) Description 11/27/2024 2:45 PM EDT Office Visit [facility] MEDICINE 230 [place], [place] [phone] Sahil Chen CNP 230 [place] [address] documented as of this encounter Visit Diagnoses Not on filedocumented in this encounter Additional Health Concerns Assessment Noted Time PHQ-9 Depression Total Score: 16 023 8:52 AM EDT documented as of this encounter Care Teams Veterinary Medicine Teacher Relationship Specialty Start Date End Date Amna Urrutia FNP 230 [place], [place] [phone] PCP - General Family Medicine 01/01/23 04/18/24 Everett Angulo MD 230 [place] [address] PCP - General Internal Medicine 04/19/24 10/08/24 Sahil Chen CNP [address] [place] [address] PCP - General Family Medicine 10/09/24 Chris Pack Jr Administrative AssociateApplications Support Lead 09/04/24 documented as of this encounter
--- OUTSIDE RECORDS SUMMARY | 2024-10-18 16:54 | XMS_ITS | Encounter Summary ---
Author Organization [employer] Address 75 [facility] 7t [place] [address] Care Team Providers Care Retail Sales Professional Name Role Phone Name, Everett ROSE Primary Care Provider [phone] Sahil Chen CNP Primary Care Provider [phone] Reason for Visit * Reason Comments Med Refill Encounter Details Date Type Department Care Team (Late st Contact Info) Description 05/03/2024 Refill [facility] [address] [place], [place] [phone] Amna Urrutia FNP 230 [place], [place] [phone] Type 1 diabetes mellitus with hyperglycemia (CMS/HCC) [...] Description 11/27/2024 2:45 PM EDT Office Visit [facility] MED[facility]INE 230 [place] [address] Sahil Chen CNP 230 [place] [address] documented as of this encounter Visit Diagnoses Diagnosis Type 1 diabetes mellitus with hyperglycemia (CMS/HCC) documented in this encounter Additional Health Concerns Assessment Noted Time PHQ-9 Depression Total Score: 20 024 2:42 PM EDT documented as of this encounter Care Teams Retail Sales Professional Relationship Specialty Start Date End Date Name, MD Everett [address] [place] [address] PCP - General Internal Medicine 04/19/24 10/08/24 Sahil Chen CNP 230 [place], [place] [phone] PCP - General Family Medicine 10/09/24 Chris Pack Jr Color Printer OperatorRetort Cooler 09/04/24 documented as of this encounter
--- OUTSIDE RECORDS SUMMARY | 2024-10-18 16:54 | XMS_ITS | Encounter Summary ---
Author Organization [employer] Address 75 [facility] 7t [place] [address] Care Team Providers Care Pickers Material Handlers Name Role Phone Amna Urrutia Primary Care Provider [phone] Name, Everett ROSE Primary Care Provider [phone] Sahil Chen CNP Primary Care Provider [phone] Reason for Visit * Reason Onset Date Comments Med Refill 09/27/2023 Encounter Details Date Type Department Care Team (Late st Contact Info) Description 09/27/2023 Refill [facility] MEDICINE [address] [place] [address] Amna Urrutia FNP [address] [place] [address] Type 1 diabetes mellitus with hyperglycemia ([facility]) Social History Tobacco Use Types Packs/Day [...] your housing situation today? I have augusta carrazna 06/05/[address] you li [...] Office Visit [facility] MEDICINE [address] [place] [address] Sahil Chen CNP 230 [place] [address] documented as of this encounter Visit Diagnoses Diagnosis Type 1 diabetes mellitus with hyperglycemia (CMS/HCC) documented in this encounter Additional Health Concerns Assessment Noted Time PHQ-9 Depression Total Score: 16 023 8:52 AM EDT documented as of this encounter Care Teams Pickers Material Handlers Relationship Specialty Start Date End Date Amna Urrutia FNP [address] [place] [address] PCP - General Family Medicine 01/01/23 04/18/24 Everett Angulo MD [address] [place] [address] PCP - General Internal Medicine 04/19/24 10/08/24 Sahil Chen CNP [address] [place] [address] [phone] PCP - General Family Medicine 10/09/24 Chris Pack Jr Rn Or LvnEvent Mgr 09/04/24 documented as of this encounter
--- OUTSIDE RECORDS SUMMARY | 2024-10-18 16:54 | XMS_ITS | Encounter Summary ---
Author Organization [employer] Address 75 [facility] 7t [place] [address] Care Team Providers Care Laundry Worker Name Role Phone Amna Urrutia Primary Care Provider [phone] Adele, Everett ROSE Primary Care Provider [phone] Sahil Chen CNP Primary Care Provider [phone] Reason for Visit * Reason Comments Med Refill Encounter Details Date Type Department Care Team ([facility] st Contact Info) Description 09/08/2023 Refill [facility] MEDICINE [address] [place] [address] Amna Urrutia FNP 230 [place] [address] Type 1 diabetes mellitus with hyperglycemia ([facility]) Social History Tobacco Use Types [...] [facility] MED[facility]INE [address] [place] [address] Sahil Chen CNP 230 [place] [address] documented as of this encounter Visit Diagnoses Diagnosis Type 1 diabetes mellitus with hyperglycemia (CMS/HCC) documented in this encounter Additional Health Concerns Assessment Noted Time PHQ-9 Depression Total Score: 16 023 8:52 AM EDT documented as of this encounter Care Teams Laundry Worker Relationship Specialty Start Date End Date Amna Urrutia FNP [address] [place] [address] PCP - General Family Medicine 01/01/23 04/18/24 Everett Angulo MD [address] [place] [address] [phone] PCP - General Internal Medicine 04/19/24 10/08/24 Sahil Chen CNP [address] [place] [address] [phone] PCP - General Family Medicine 10/09/24 Chris Pack Jr Technical Sales EngineerBlast Furnace Operator 09/04/24 documented as of this encounter
--- OUTSIDE RECORDS SUMMARY | 2024-10-18 16:54 | XMS_ITS | Encounter Summary ---
Author Organization [employer] Address 75 [facility] 7t [place] [address] Care Team Providers Care Parts Clerk Plant Maintenance Name Role Phone Name, Everett ROSE Primary Care Provider [phone] Sahil Chen CNP Primary Care Provider [phone] Encounter Details Date Type Department Care Team (Late st Contact Info) Description 04/21/2024 Orders Only [facility]S [address] [place], [place] [phone] Amna Urrutia FNP [facility] [place], [place] [phone] Social History Tobacco Use Types Packs/Day Years [...] Description 11/27/2024 2:45 PM EDT Office Visit [facility] MEDICINE [address] [place] [address] Sahil Chen CNP 230 [place] [address] documented as of this encounter Visit Diagnoses Not on filedocumented in this encounter Additional Health Concerns Assessment Noted Time PHQ-9 Depression Total Score: 20 024 2:42 PM EDT documented as of this encounter Care Teams Parts Clerk Plant Maintenance Relationship Specialty Start Date End Date Name, MD Everett [address] [place] [address] PCP - General Internal Medicine 04/19/24 10/08/24 Sahil Chen CNP [address] [place] [address] PCP - General Family Medicine 10/09/24 Chris Pack Jr Truck AssemblerCutting Machine Operator 09/04/24 documented as of this encounter
--- OUTSIDE RECORDS SUMMARY | 2024-10-18 16:54 | XMS_ITS | Encounter Summary ---
Author Organization [employer] Address 75 [facility] 7t [place] [address] Care Team Providers Care Home Office Claims Examiner Name Role Phone Amna Urrutia Primary Care Provider [phone] Adele, Everett ROSE Primary Care Provider [phone] Sahil Chen CNP Primary Care Provider [phone] Reason for Visit * Reason Comments Med Refill Encounter Details Date Type Department Care Team ([facility] st Contact Info) Description 08/29/2023 Refill [facility] MEDICINE 230 [place], [place] [phone] Carlos Alberto Villavicencio MD 230 [place], [place] [phone] Type 1 diabetes mellitus with hyperglycemia ([facility]) Social History Tobacco Use Types [...] Description 11/27/2024 2:45 PM EDT Office Visit [facility] MEDICINE [address] [place] [address] Sahil Chen CNP 230 [place] [address] documented as of this encounter Visit Diagnoses Diagnosis Type 1 diabetes mellitus with hyperglycemia ([facility]) documented in this encounter Additional Health Concerns Assessment Noted Time PHQ-9 Depression Total Score: 16 023 8:52 AM EDT documented as of this encounter Care Teams Home Office Claims Examiner Relationship Specialty Start Date End Date Amna Urrutia FNP [address] [place] [address] PCP - General Family Medicine 01/01/23 04/18/24 Everett Angulo MD [address] [place] [address] PCP - General Internal Medicine 04/19/24 10/08/24 Sahil Chen CNP [address] [place] [address] PCP - General Family Medicine 10/09/24 Chris Pack Jr Funeral Location ManagerSlaughterer Religious Ritual 09/04/24 documented as of this encounter
--- OUTSIDE RECORDS SUMMARY | 2024-10-18 16:54 | XMS_ITS | Encounter Summary ---
Author Organization [employer] Address [address] [facility] [address] 7t [place] [address] Care Team Providers Care Funding Coordinator Name Role Phone Amna Urrutia Primary Care Provider [phone] Adele, Everett ROSE Primary Care Provider [phone] Sahil Chen CNP Primary Care Provider [phone] Encounter Details Date Type Department Care Team (Late st Contact Info) Description 06/28/2023 Orders Only [facility] 230 [place], [place] [phone] Santos Mueller MD 230 [place] [address] Social History Tobacco Use Types Packs/Day Years [...] Description 11/27/2024 2:45 PM EDT Office Visit [facility] MEDICINE 230 [place] [address] Sahil Chen CNP 230 [place] [address] documented as of this encounter Visit Diagnoses Not on filedocumented in this encounter Additional Health Concerns Assessment Noted Time PHQ-9 Depression Total Score: 16 023 8:52 AM EDT documented as of this encounter Care Teams Funding Coordinator Relationship Specialty Start Date End Date Amna Urrutia FNP 230 [place], [place] [phone] PCP - General Family Medicine 01/01/23 04/18/24 Everett Angulo MD [address] [place] [address] PCP - General Internal Medicine 04/19/24 10/08/24 Sahil Chen CNP 230 [place], [place] [phone] PCP - General Family Medicine 10/09/24 Chris Pack Jr Territory Sales ProfessionalCanvas Worker Apprentice 09/04/24 documented as of this encounter
--- OUTSIDE RECORDS SUMMARY | 2024-10-18 16:55 | XMS_ITS | Encounter Summary ---
Author Organization [employer] [facility] Address [address] [place] [address] 7 [place] [address] Care Team Providers Care Whiting Machine Operator Name Role Phone Amna Urrutia Primary Care Provider [phone] Name, Everett ROSE Primary Care Provider [phone] Sahil Chen CNP Primary Care Provider [phone] Reason for Visit * Reason Onset Date Comments Med Refill 04/29/2023 Encounter Details Date Type Department Care Team (Late Contact Info) Description 04/29/2023 Refill [facility] MEDICINE [address] [place] [address] Sandra Leal MD [address] [place] [address] [phone] Social History Tobacco Use Types Packs/Day Years [...] 11/27/2024 2:45 PM EDT Office Visit [facility] MEDICINE [address] [place] [address] Sahil Chen CNP 230 [place], [place] [phone] documented as of this encounter Visit Diagnoses Not on filedocumented in this encounter Additional Health Concerns Assessment Noted Time PHQ-9 Depression Total Score: 16 023 8:52 AM EDT documented as of this encounter Care Teams Whiting Machine Operator Relationship Specialty Start Date End Date Amna Urrutia FNP 230 [place], [place] [phone] PCP - General Family Medicine 01/01/23 04/18/24 Everett Angulo MD 230 [place], [place] [phone] PCP - General Internal Medicine 04/19/24 10/08/24 Sahil Chen CNP 230 [place], [place] [phone] PCP - General Family Medicine 10/09/24 Chris Pack Jr Grand ScribeLithographic Plate Maker Apprentice 09/04/24 documented as of this encounter
--- OUTSIDE RECORDS SUMMARY | 2024-10-18 16:55 | XMS_ITS | Encounter Summary ---
Author Organization [employer] Address 75 [facility] 7t [place] [address] Care Team Providers Care Consulting Software Engineer Name Role Phone Name, Everett ROSE Primary Care Provider [phone] Reason for Visit * Reason Comments Pre-visit Planning SDOH unable to compl ete, patient working. Encounter Details Date Type Department Care Team (Late st Contact Info) Description 09/30/2024 Patient Outreach [facility] [address] [place], [place] [phone] Name, MD Everett 230 [place] [address] Pre-visit Planning (SDOH unable to complete, patient [...] EDT Office Visit [facility] MEDICINE [address] [place] [address] Sahil Chen CNP 230 [place], [place] [phone] documented as of this encounter Visit Diagnoses Not on filedocumented in this encounter Additional Health Concerns Assessment Noted Time PHQ-9 Depression Total Score: 20 024 2:42 PM EDT documented as of this encounter Care Teams Consulting Software Engineer Relationship Specialty Start Date End Date Name, MD Everett [address] [place] [address] PCP - General Internal Medicine 04/19/24 10/08/24 Chris Pack Jr Chief Analytics OfficerFraud Prevention Analyst 09/04/24 documented as of this encounter
--- OUTSIDE RECORDS SUMMARY | 2024-10-18 16:55 | XMS_ITS | Encounter Summary ---
Author Organization [employer] Address 75 [facility] 7t [place] [address] Care Team Providers Care Acid Plant Helper Name Role Phone Name, Everett ROSE Primary Care Provider [phone] Reason for Visit * Reason Onset Date Comments Med Refill 10/08/2024 Encounter Details Date Type Department Care Team (Late st Contact Info) Description 10/08/2024 Refill [facility] MEDICINE 230 [place], [place] [phone] Name, MD Everett 230 [place] [address] Type 1 diabetes mellitus with hyperglycemia ([facility]) Social History Tobacco Use Types Packs/Day [...] 100 UNIT/ML pen To be sent to: [facility] - [place], [place] - [address] [place] [address] documented in this encounter Plan of Treatment Upcoming Encounters Date Type Department Care Team (Late st Contact Info) Description 11/27/2024 2:45 PM EDT Office Visit [facility] MEDICINE 230 [place] [address] Sahil Chen CNP 230 [place], [place] [phone] documented as of this encounter Visit Diagnoses Diagnosis Type 1 diabetes mellitus with hyperglycemia (CMS/HCC) documented in this encounter Additional Health Concerns Assessment Noted Time PHQ-9 Depression Total Score: 20 024 2:42 PM EDT documented as of this encounter Care Teams Acid Plant Helper Relationship Specialty Start Date End Date Name, MD Everett 230 [place] [address] PCP - General Internal Medicine 04/19/24 10/08/24 Chris Pack Jr Net Ui DeveloperElectrician Helper Automotive 09/04/24 documented as of this encounter
--- OUTSIDE RECORDS SUMMARY | 2024-10-18 16:55 | XMS_ITS | Encounter Summary ---
Author Organization [employer] Address 75 [facility] 7t [place] [address] Care Team Providers Care Set Up Machinist Name Role Phone ChenSahil SERA Primary Care Provider [phone] Encounter Details Date Type Department Care Team (Late st Contact Info) Description 10/18/2024 Orders Only GENERIC EXTERNAL DATA DEPARTMENT Provider, [...] 2:45 PM EDT Office Visit [facility] MEDICINE 230 [place], [place] [phone] Sahil Chen CNP 230 [place], [place] [phone] documented as of this encounter Procedures Procedure Name Priority Date/Time Associated Diagnosis Comments GLUCOSE, WHOLE BLOOD Routine 10/18/2024 3:01 PM EST documented in this encounter Results * (ABNORMAL) Glucose, Whole Blood (10/18/2024 3:01 PM EST) Glucose, Whole Blood 333(H) 60 - 115 mg/dL [facility] Comment:METER #: [id number] 5Testing performed in the Endocrinology Department [address] , [address], [facility]. 10/18/2024 3:01 PM EST 10/18/2024 3:05 PM EST us Generic External Data Provider LAB BLOOD ORDERAB LES Final Result [facility] [address] [place] [address] [phone] documented in this encounter Visit Diagnoses Not on filedocumented in this encounter Additional Health Concerns Assessment Noted Time PHQ-9 Depression Total Score: 20 024 2:42 PM EDT documented as of this encounter Care Teams Set Up Machinist Relationship Specialty Start Date End Date Sahil Chne CNP 230 [place], [place] [phone] PCP - General Family Medicine 10/09/24 Chris Pack Jr Flat HammererCordwood Cutter Helper 09/04/24 documented as of this encounter
--- OUTSIDE RECORDS SUMMARY | 2024-10-18 16:55 | XMS_ITS | Encounter Summary ---
Author Organization [facility] Address [address] [place] [address] Phone Care Team Providers Care Design Editor Name Role Phone Santos Mueller MD Primary Care Provider [phone] Encounter Details Date Type Department Care Team (Late st Contact Info) Description 08/05/2024 Documentation Only [facility] [place], [address] [place] [address] Jessica Sprague [address] [place] [address] Social History Tobacco Use Types [...] on filedocumented in this encounter Care Teams Design Editor Relationship Specialty Start Date End Date Santos Mueller MD [address] [place] [address] PCP - General Emergency Medicine 07/28/23 documented as of this encounter
--- OUTSIDE RECORDS SUMMARY | 2024-10-18 16:55 | XMS_ITS | Clinical Summary ---
Author Organization [facility] it Address [address] [place] [address] Care Team Providers Care Agricultural Produce Packer Name Role Phone Unavailable Primary Care Provider [...]
--- OUTSIDE RECORDS SUMMARY | 2024-10-18 16:55 | XMS_ITS | Encounter Summary ---
Author Organization [employer] Address [address] [facility] [address] 7t [place] [address] Care Team Providers Care Plant Anatomy Teacher Name Role Phone Gustavo Sahil SERA Primary Care Provider [phone] Encounter Details Date Type Department Care Team (Late st Contact Info) Description 10/09/2024 Telephone [facility] 230 [place], [place] [phone] Shivani Lopez RN 230 [place] [address] Social History Tobacco Use Types Packs/Day Years [...] contact provider regarding Tresiba. Pt followed by [facility] Endocrinology. TC placed to [facility] Endocrinology and informed by staff, pt has been a no show and has not been seen since 05/2024. [facility] Endo office reports will refill Tresiba once time and informed pt needs to be seen or willbe discharged from practice. [facility] endo provided appt for pt 10/16/24 at 2PM. TC placed to pt regarding [facility] Endo appt. Pt verbalized understanding. RN [...] 2:45 PM EDT Office Visit [facility] MEDICINE 230 [place], [place] [phone] Sahil Chen CNP [address] [place] [address] documented as of this encounter Visit Diagnoses Not on filedocumented in this encounter Additional Health Concerns Assessment Noted Time PHQ-9 Depression Total Score: 20 024 2:42 PM EDT documented as of this encounter Care Teams Plant Anatomy Teacher Relationship Specialty Start Date End Date Sahil Chen CNP 230 [place] [address] PCP - General Family Medicine 10/09/24 Chris Pack Jr Software Qa ManagerNurse Aide 09/04/24 documented as of this encounter
--- OUTSIDE RECORDS SUMMARY | 2024-10-18 16:55 | XMS_ITS | Encounter Summary ---
Author Organization [employer] Address 75 [facility] 7t [place] [address] Care Team Providers Care Button Decorating Machine Operator Name Role Phone mAna Urrutia Primary Care Provider [phone] Name, Everett ROSE Primary Care Provider [phone] Sahil Chen CNP Primary Care Provider [phone] Reason for Visit * Reason Onset Date Comments Med Refill 05/01/2023 Encounter Details Date Type Department Care Team ([facility] Contact Info) Description 05/01/2023 Refill [facility]ALK[facility] [address] [place] [address] [phone] Lakshmi Womack FNP [address] [place], [place] [phone] Type 1 diabetes mellitus with hyperglycemia ([facility]) Social History Tobacco Use Types [...] Upcoming Encounters Date Type Department Care Team ([facility] Contact Info) Description 11/27/2024 2:45 PM EDT Office Visit [facility] MEDICINE [address] [place] [address] [phone] Sahil Chen CNP [address] [place] [address] documented as of this encounter Visit Diagnoses Diagnosis Type 1 diabetes mellitus with hyperglycemia (CMS/HCC) documented in this encounter Additional Health Concerns Assessment Noted Time PHQ-9 Depression Total Score: 16 04/17/ 023 8:52 AM EDT documented as of this encounter Care Teams Button Decorating Machine Operator Relationship Specialty Start Date End Date Amna Urrutia FNP 230 [place] [address] PCP - General Family Medicine 01/01/23 04/18/24 NameEverett MD 230 [place], [place] [phone] PCP - General Internal Medicine 04/19/24 10/08/24 Sahil Chen CNP 230 [place] [address] PCP - General Family Medicine 10/09/24 Chris Pack Jr Drying Room AttendantAirframe Technician 09/04/24 documented as of this encounter
--- OUTSIDE RECORDS SUMMARY | 2024-10-18 16:55 | XMS_ITS | Encounter Summary ---
Author Organization [employer] Address 75 [facility] 7t [place] [address] Care Team Providers Care Slabber Name Role Phone Sahil Chen CNP Primary Care Provider [phone] Reason for Visit * Reason Comments Transition Of Care (Tcm) Encounter Details Date Type Department Care Team (Late st Contact Info) Description 10/14/2024 Patient Outreach [facility] MEDICINE [address] [place], [place] [phone] Sahil Chen CNP [address] [place] [address] Transition Of Care (Tcm) Social History Tobacco [...] as of this encounter Progress Notes * Marline Vega RN - 10/14/2024 10:13 AM EST Transition of Care Note Bradford Torres is going through a recent transition of care. * Yenifer Ritter RN - 10/14/2024 10:13 AM EST Hospital Discharges and Admission for [facility] Type of Visit: Emergency Department Date of Admission/Visit: 10/11/24 Date of Discharge: 10/12/24 Facility: [facility] Diagnosis: Nausea and Vomiting x 2 Disposition: Left AMA Patient Contacted: Left voicemail to call office back and ask to speak to blue team nurses. The full discharge summary is Is available under encounters/interface Review Flowsheet [facility] Transition of Care Documentation Type of Visit Date of Admission/Visit Date of Discharge Facility Diagnosis Disposition 09/10/2024 9:05 AM Emergency Department 09/09/2024 09/09/2024 [facility] 05/30 groin pain Discharged Home 10/14/2024 10:13 AM Emergency Department 10/11/2024 10/12/2024 [facility] Nausea and Vomiting x 2 Left AMA Recent Visits Date Type Provider Dept 08/02/24 Office Visit Everett Angulo MD [facility] Medicine 03/21/24 Office Visit Sandra Mir MD [facility] Medicine 03/05/24 Office Visit LENORE Olson [facility] Walk-In Center 02/26/24 Office Visit LENORE Olson [facility] Walk-In Center 11/08/23 Office Visit LENORE Olson [facility] Medicine Showing recent visits within past 365 days with a meds authorizing provider and meeting all other requirements Future Appointments Date Type Provider Dept 11/27/24 Appointment Sahil Chen CNP [facility] Medicine Showing future appointments within next 150 days with a meds authorizing provider and meeting all other requirements documented in this encounter Plan of Treatment Upcoming Encounters Date Type Department Care Team (Late st Contact Info) Description 11/27/2024 2:45 PM EDT Office Visit [facility] MEDICINE [address] [place] [address] Sahil Chen CNP [address] [place] [address] documented as of this encounter Visit Diagnoses Not on filedocumented in this encounter Additional Health Concerns Assessment Noted Time PHQ-9 Depression Total Score: 20 024 2:42 PM EDT documented as of this encounter Care Teams Slabber Relationship Specialty Start Date End Date Sahil Chen CNP [address] [place] [address] PCP - General Family Medicine 10/09/24 Chris Pack Jr Translational SpecialistDouble End Trimmer 09/04/24 documented as of this encounter
--- OUTSIDE RECORDS SUMMARY | 2024-10-18 16:55 | XMS_ITS | Encounter Summary ---
Author Organization [employer] Address 75 [facility] 7t [place] [address] Care Team Providers Care Sprinkler Repair Technician Name Role Phone Amna Urrutia Primary Care Provider [phone] Everett Angulo MD Primary Care Provider [phone] Sahil Chen CNP Primary Care Provider [phone] Reason for Visit * Reason Onset Date Comments Med Refill 07/28/2023 Encounter Details Date Type Department Care Team (Late st Contact Info) Description 07/28/2023 Refill [facility] MEDICINE [address] [place], [place] [phone] Denice Rubin MD 230 [place], [place] [phone] Social History Tobacco Use Types Packs/Day Years [...] Description 11/27/2024 2:45 PM EDT Office Visit [facility] MEDICINE [address] [place] [address] Sahil Chen CNP 230 [place] [address] documented as of this encounter Visit Diagnoses Not on filedocumented in this encounter Additional Health Concerns Assessment Noted Time PHQ-9 Depression Total Score: 16 023 8:52 AM EDT documented as of this encounter Care Teams Sprinkler Repair Technician Relationship Specialty Start Date End Date Amna Urrutia FNP [address] [place] [address] PCP - General Family Medicine 01/01/23 04/18/24 Everett Angulo MD [address] [place] [address] PCP - General Internal Medicine 04/19/24 10/08/24 Sahil Chen CNP [address] [place] [address] PCP - General Family Medicine 10/09/24 Chris Pack Jr Holiday Detector OperatorMedical Services Coordinator 09/04/24 documented as of this encounter
--- OUTSIDE RECORDS SUMMARY | 2024-10-18 16:55 | XMS_ITS | Encounter Summary ---
Author Organization [employer] Address 75 [facility] 7t [place] [address] Care Team Providers Care Recreation Therapist Name Role Phone Amna Urrutia Primary Care Provider [phone] Name, Everett ROSE Primary Care Provider Sahil Chen CNP Primary Care Provider [phone] Reason for Visit * Reason Onset Date Comments Med Refill 07/28/2023 Encounter Details Date Type Department Care Team (Late st Contact Info) Description 07/28/2023 Refill [facility] MEDICINE [address] [place] [address] Amna Urrutia FNP [address] [place] [address] Social History Tobacco Use Types Packs/Day Years [...] Visit [facility] MEDICINE [address] [place] [address] Sahil Chen CNP 230 [place] [address] documented as of this encounter Visit Diagnoses Not on filedocumented in this encounter Additional Health Concerns Assessment Noted Time PHQ-9 Depression Total Score: 16 023 8:52 AM EDT documented as of this encounter Care Teams Recreation Therapist Relationship Specialty Start Date End Date Amna Urrutia FNP [address] [place] [address] PCP - General Family Medicine 01/01/23 04/18/24 Everett Angulo MD [address] [place] [address] PCP - General Internal Medicine 04/19/24 10/08/24 Sahil Chen CNP [address] [place] [address] PCP - General Family Medicine 10/09/24 Chris Pack Jr Civil Preparedness Training OfficerGround School Instructor 09/04/24 documented as of this encounter
--- OUTSIDE RECORDS SUMMARY | 2024-10-18 16:55 | XMS_ITS | Encounter Summary ---
Author Organization [facility] Address [address] [place] [address] Phone Care Team Providers Care Dental Ceramist Helper Name Role Phone Santos Mueller MD Primary Care Provider [phone] Encounter Details Date Type Department Care Team (Late st Contact Info) Description 08/05/2024 Documentation Only [facility], [address] [place] [address] Jessica Sprague [address] [place] [address] Social History Tobacco Use Types [...] on filedocumented in this encounter Care Teams Dental Ceramist Helper Relationship Specialty Start Date End Date Santos Mueller MD [address] [place] [address] PCP - General Emergency Medicine 07/28/23 documented as of this encounter
--- OUTSIDE RECORDS SUMMARY | 2024-10-18 16:55 | XMS_ITS | Encounter Summary ---
Author Organization [employer] [facility] Address [address] [place] [address] 7 [place] [address] Care Team Providers Care Mover Helper Name Role Phone Amna Urrutia Primary Care Provider [phone] Name, Everett ROSE Primary Care Provider [phone] Sahil Chen CNP Primary Care Provider [phone] Reason for Visit * Reason Onset Date Comments Med Refill 04/28/2023 Encounter Details Date Type Department Care Team (Late Contact Info) Description 04/28/2023 Refill [facility] MEDICINE [address] [place] [address] Sandra Leal MD [address] [place] [address] [phone] Social History Tobacco Use Types Packs/Day Years [...] Office Visit [facility] MEDICINE [address] [place] [address] Sahil Chen CNP [address] [place], [place] [phone] documented as of this encounter Visit Diagnoses Not on filedocumented in this encounter Additional Health Concerns Assessment Noted Time PHQ-9 Depression Total Score: 16 023 8:52 AM EDT documented as of this encounter Care Teams Mover Helper Relationship Specialty Start Date End Date Amna Urrutia FNP [address] [place], [place] [phone] PCP - General Family Medicine 01/01/23 04/18/24 Everett Angulo MD [address] [place], [place] [phone] PCP - General Internal Medicine 04/19/24 10/08/24 Sahil Chen CNP [address] [place], [place] [phone] PCP - General Family Medicine 10/09/24 Chris Pack Jr Automobile Glass TechnicianPhys Asst 09/04/24 documented as of this encounter
--- OUTSIDE RECORDS SUMMARY | 2024-10-18 16:55 | XMS_ITS | Encounter Summary ---
Author Organization [facility] Address [address] [place] [address] 7 [place] [address] Care Team Providers Care Diver Assistant Name Role Phone Amna Urrutia Primary Care Provider [phone] Name, Everett ROSE Primary Care Provider [phone] Sahil Chen CNP Primary Care Provider [phone] Reason for Visit * Reason Onset Date Comments Med Refill 05/01/2023 Encounter Details Date Type Department Care Team (Late Contact Info) Description 05/01/2023 Refill [facility] MEDICINE [address] [place] [address] Sandra Leal MD [address] [place] [address] [phone] Social History Tobacco Use Types Packs/Day Years [...] Description 11/27/2024 2:45 PM EDT Office Visit [facility] MEDICINE [address] [place] [address] Sahli Chen CNP [address] [place], [place] [phone] documented as of this encounter Visit Diagnoses Not on filedocumented in this encounter Additional Health Concerns Assessment Noted Time PHQ-9 Depression Total Score: 16 023 8:52 AM EDT documented as of this encounter Care Teams Diver Assistant Relationship Specialty Start Date End Date Amna Urrutia FNP [address] [place], [place] [phone] PCP - General Family Medicine 01/01/23 04/18/24 Everett Angulo MD 230 [place], [place] [phone] PCP - General Internal Medicine 04/19/24 10/08/24 Sahil Chen CNP [address] [place], [place] [phone] PCP - General Family Medicine 10/09/24 Chris Pack Jr Dry House WheelerBarrel Charrer 09/04/24 documented as of this encounter
--- OUTSIDE RECORDS SUMMARY | 2024-10-18 16:55 | XMS_ITS | Encounter Summary ---
Author Organization [employer] Address [address] [facility] 7t [place] [address] Care Team Providers Care Bull Wheel Worker Name Role Phone Name, Everett ROSE Primary Care Provider [phone] Reason for Visit * Reason Onset Date Comments Med Refill 10/08/2024 Encounter Details Date Type Department Care Team (Late st Contact Info) Description 10/08/2024 Refill [facility] [address] [place], [place] [phone] Name, MD Everett 230 [place] [address] Gastroesophageal reflux disease without esophagitis Social History [...] Description 11/27/2024 2:45 PM EDT Office Visit [facility] MEDICINE 230 [place], [place] [phone] Sahil Chen CNP [address] [place], [place] [phone] documented as of this encounter Visit Diagnoses Diagnosis Gastroesophageal reflux disease without esophagitis Esophageal reflux documented in this encounter Additional Health Concerns Assessment Noted Time PHQ-9 Depression Total Score: 20 024 2:42 PM EDT documented as of this encounter Care Teams Bull Wheel Worker Relationship Specialty Start Date End Date Name, MD Everett [address] [place], [place] [phone] PCP - General Internal Medicine 04/19/24 10/08/24 Chris Pack Jr Rig WelderSix Sigma Black Belt Engineer 09/04/24 documented as of this encounter
--- OUTSIDE RECORDS SUMMARY | 2024-10-18 16:55 | XMS_ITS | Encounter Summary ---
Author Organization [employer] [facility] Address 75 [facility] 7t [place] [address] Care Team Providers Care Pocketbook Maker Name Role Phone Amna Urrutia Primary Care Provider [phone] Name, Everett ROSE Primary Care Provider [phone] Sahil Chen CNP Primary Care Provider [phone] Encounter Details Date Type Department Care Team (Late st Contact Info) Description 10/21/2022 Abstract [facility] ADULT DENTAL [address] [place] [address] Marycruz Oseguera DDS [address] [place] [address] Social History Tobacco Use Types Packs/Day Years [...] Description 11/27/2024 2:45 PM EDT Office Visit [facility] MEDICINE [address] [place] [address] Sahil Chen CNP [address] [place] [address] documented as of this encounter Visit Diagnoses Not on filedocumented in this encounter Care Teams Pocketbook Maker Relationship Specialty Start Date End Date Amna Urrutia FNP [address] [place], [place] [phone] PCP - General Family Medicine 01/01/23 04/18/24 Adele, MD Everett 230 [place], [place] [phone] PCP - General Internal Medicine 04/19/24 10/08/24 Sahil Chen CNP [address] [place], [place] [phone] PCP - General Family Medicine 10/09/24 Chris Pack Jr Side Seam Envelope Machine OperatorSupervisor Computer Operations 09/04/24 documented as of this encounter
--- OUTSIDE RECORDS SUMMARY | 2024-10-18 16:55 | XMS_ITS | Encounter Summary ---
Author Organization [employer] Address 75 [facility] 7t [place] [address] Care Team Providers Care Claims Auditor Name Role Phone Amna Urrutia Primary Care Provider [phone] Adele, Everett ROSE Primary Care Provider [phone] Sahil Chen CNP Primary Care Provider [phone] Reason for Visit * Reason Onset Date Comments Med Refill 07/17/2023 Encounter Details Date Type Department Care Team (Late st Contact Info) Description 07/17/2023 Refill [facility] MEDICINE [address] [place] [address] Sandra Leal MD 230 [place] [address] Social History Tobacco Use Types Packs/Day Years [...] 11/27/2024 2:45 PM EDT Office Visit [facility] MEDICINE [address] [place] [address] Sahil Chen CNP 230 [place] [address] documented as of this encounter Visit Diagnoses Not on filedocumented in this encounter Additional Health Concerns Assessment Noted Time PHQ-9 Depression Total Score: 16 023 8:52 AM EDT documented as of this encounter Care Teams Claims Auditor Relationship Specialty Start Date End Date Amna Urrutia FNP [address] [place] [address] PCP - General Family Medicine 01/01/23 04/18/24 Everett Angulo MD [address] [place] [address] PCP - General Internal Medicine 04/19/24 10/08/24 Sahil Chen CNP [address] [place] [address] PCP - General Family Medicine 10/09/24 Chris Pack Jr Leather SprayerAgronomy Manager 09/04/24 documented as of this encounter
--- OUTSIDE RECORDS SUMMARY | 2024-10-18 16:55 | XMS_ITS | Encounter Summary ---
Author Organization [facility] Address 75 [facility] 7t [place] [address] Care Team Providers Care Client Onboarding Analyst Name Role Phone Amna Urrutia Primary Care Provider [phone] Name, Everett ROSE Primary Care Provider [phone] Sahil Chen CNP Primary Care Provider [phone] Encounter Details Date Type Department Care Team (Late Contact Info) Description 01/17/2023 Orders Only [facility] MEDICINE [address] [place] [address] [phone] Amna Urrutia FNP 230 [place], [place] [phone] Social History Tobacco Use Types Packs/Day Years [...] Office Visit [facility] MEDICINE [address] [place] [address] [phone] Sahil Chen CNP [address] [place] [address] documented as of this encounter Visit Diagnoses Not on filedocumented in this encounter Additional Health Concerns Assessment Noted Time PHQ-9 Depression Total Score: 7 01/07/20 23 9:10 AM EDT documented as of this encounter Care Teams Client Onboarding Analyst Relationship Specialty Start Date End Date Amna Urrutia FNP [address] [place] [address] PCP - General Family Medicine 01/01/23 04/18/24 Name, MD Everett 230 [place] [address] PCP - General Internal Medicine 04/19/24 10/08/24 Sahil Chen CNP [address] [place] [address] PCP - General Family Medicine 10/09/24 Chris Pack Jr Electrical ApprenticeConcession Attendant 09/04/24 documented as of this encounter
--- OUTSIDE RECORDS SUMMARY | 2024-10-18 16:55 | XMS_ITS | Encounter Summary ---
Author Organization [employer] Address 75 [facility] 7t [place] [address] Care Team Providers Care Cnc Mechanic Name Role Phone Amna Urrutia Primary Care Provider [phone] Adele, Everett ROSE Primary Care Provider [phone] Sahil Chen CNP Primary Care Provider [phone] Reason for Visit * Reason Onset Date Comments reaction to medication 10/24/2022 Encounter Details Date Type Department Care Team ([facility] st Contact Info) Description 10/24/2022 Telephone [facility] DENTAL [address] [place] [address] Marycruz Oseguera DDS [address] [place] [address] reaction to medication Social History Tobacco Use [...] Description 11/27/2024 2:45 PM EDT Office Visit [facility] MEDICINE 230 [place], [place] [phone] Sahil Chen CNP [address] [place] [address] documented as of this encounter Visit Diagnoses Not on filedocumented in this encounter Care Teams Cnc Mechanic Relationship Specialty Start Date End Date Amna Urrutia FNP [address] [place] [address] PCP - General Family Medicine 01/01/23 04/18/24 Name, MD Everett [address] [place] [address] PCP - General Internal Medicine 04/19/24 10/08/24 Sahil Chen CNP [address] [place] [address] PCP - General Family Medicine 10/09/24 Chris Pack Jr Unix System AdministratorTransplant Immunologist 09/04/24 documented as of this encounter
--- OUTSIDE RECORDS SUMMARY | 2024-10-18 16:55 | XMS_ITS | Encounter Summary ---
Author Organization [facility] Address [address] [place] [address] [address] [place] [address] Care Team Providers Care Timing Inspector Name Role Phone Amna Urrutia Primary Care Provider [phone] Name, Everett ROSE Primary Care Provider [phone] Sahil Chen CNP Primary Care Provider [phone] Reason for Visit * Reason Onset Date Comments Med Refill 03/21/2023 Encounter Details Date Type Department Care Team (Late Contact Info) Description 03/21/2023 Refill [facility] MEDICINE [address] [place] [address] Amna Urrutia FNP [address] [place], [place] [phone] Social History Tobacco Use Types Packs/Day Years [...] Office Visit [facility] MEDICINE [address] [place] [address] Sahil Chen CNP 230 [place] [address] documented as of this encounter Visit Diagnoses Not on filedocumented in this encounter Additional Health Concerns Assessment Noted Time PHQ-9 Depression Total Score: 7 01/07/20 23 9:10 AM EDT documented as of this encounter Care Teams Timing Inspector Relationship Specialty Start Date End Date Amna Urrutia FNP [address] [place] [address] PCP - General Family Medicine 01/01/23 04/18/24 Everett Angulo MD 230 [place] [address] PCP - General Internal Medicine 04/19/24 10/08/24 Sahil Chen CNP [address] [place] [address] PCP - General Family Medicine 10/09/24 Chris Pack Jr [employer]oc Airspace Control OfficerVerification Engineer 09/04/24 documented as of this encounter
--- OUTSIDE RECORDS SUMMARY | 2024-10-18 16:55 | XMS_ITS | Encounter Summary ---
Author Organization [employer] Address [address] [facility] [address] [place] [address] Care Team Providers Care Locks Inspector Name Role Phone Sahil Chen CNP Primary Care Provider [phone] Encounter Details Date Type Department Care Team (Late st Contact Info) Description 10/09/2024 Orders Only [facility] [address] [place], [place] [phone] Sahil Chen CNP [address] [place] [address] Type 1 diabetes mellitus with hyperglycemia (CMS/HCC) [...] EDT Office Visit [facility] [address] [place] [address] Sahil Chen CNP [address] [place] [address] documented as of this encounter Procedures Procedure Name Priority Date/Time Associated Diagnosis Comments CT ABDOMEN PELVIS WO CONTRAST Routine 10/11/2024 11:08 PM EST documented in this encounter Results * CT Abdomen Pelvis w/o Contrast (10/11/2024 11:08 PM EST) Anatomical Region Laterality Modality Body, Pelvis, Abdomen Computed T omography 10/11/2024 11:0 8 PM EST Narrative 10/11/2024 11:09 PM EST ? [facility] ?[address] ?[place] [address] ? CT Scan Report ? Signed ? Patient: Bradford Torres J ?MR#: [id number] ?? [id number] ? : 1995 ?Acct:[id number] ? Age/Sex: 29 / M ?ADM Date: 02/21/25 ? Loc: HO.ED ? Attending Dr: ? Ordering Physician: Jorge Augustin ?? Date of Service: 10/11/24 ?? Procedure(s): CT abdomen pelvis wo IV con ?? Accession Number(s): [id number] ? cc: Name,Everett ROSE; Jorge Augustin ? Report Number: ?? [id number]: Total DLP = ??378.00 mGy-cm ? CLINICAL HISTORY: left flank pain ? CT abdomen and pelvis without contrast ? Comparison: CT/SR - CT ABDOMEN PELVIS W IV CON - 09/01/24 10:06 EST ? Findings: ?? The lung bases are clear. ? Unremarkable gallbladder and solid organs. No urolithiasis. ?? Focally prominent fluid-filled loops of small bowel in the inferior ?? abdomen, possibly enteritis. ? The appendix is surgically absent. ?? No acute fracture. ? IMPRESSION: ?? Focally prominent fluid-filled loops of small bowel in the inferior ?? abdomen, possibly mild enteritis. No CT findings to account for left flank ?? pain. ? This document has been electronically signed by: Fritz Douglass MD, ?? PHD on 10/11/2024 23:08:18 ? Dictated By: ?Fritz Douglass MD ? Signed By: ?<Electronically signed by Fritz Douglass MD in OV> ? 10/11/24 2309 ? DD/ 2308 ? TD/TT: 10/11/248 ? Telemarketing Fundraiser: ? Procedure Note [place], Image - 10/11/[address] [place] [address] [address] Scan Report Signed Patient: Bradford Torres JMR#: [id number] : 1995Acct:[id number] Age/Sex: 29 / MADM Date: 10/11/24 Loc: HO.ED Attending Dr: Ordering Physician: Jorge Augustin Date of Service: 10/11/24 Procedure(s): CT abdomen pelvis wo IV con Accession Number(s): [id number] cc: Name,Everett ROSE; Jorge Augustin Report Number: [id number]: Total DLP = 378.00 mGy-cm CLINICAL HISTORY: left flank pain CT abdomen and pelvis without contrast Comparison: CT/SR - CT ABDOMEN PELVIS W IV CON - 09/01/24 10:06 EST Findings: The lung bases are clear. Unremarkable gallbladder and solid organs. No urolithiasis. Focally prominent fluid-filled loops of small bowel in the inferior abdomen, possibly enteritis. The appendix is surgically absent. No acute fracture. IMPRESSION: Focally prominent fluid-filled loops of small bowel in the inferior abdomen, possibly mild enteritis. No CT findings to account for left flank pain. This document has been electronically signed by: Fritz Douglass MD, PHD on 10/11/2024 23:08:18 Dictated By: Fritz Douglass MD Signed By: <Electronically signed by Fritz Douglass MD in OV> 10/11/242308 DD/ 07 TD/TT: 10/11/242307 Telemarketing Fundraiser: [facility] External Provider IMG CT PROCEDURES Edited Result - Final documented in this encounter Visit Diagnoses Diagnosis Type 1 diabetes mellitus with hyperglycemia (CMS/HCC)- Primary documented in this encounter Additional Health Concerns Assessment Noted Time PHQ-9 Depression Total Score: 20 03/05/ 024 2:42 PM EDT documented as of this encounter Care Teams Locks Inspector Relationship Specialty Start Date End Date Sahil Chen CNP [address] [place] [id number] PCP - General Family Medicine 10/09/24 Chris Pack Jr Level Vial Inspector And TesterBed Machine Operator 09/04/24 documented as of this encounter
--- OUTSIDE RECORDS SUMMARY | 2024-10-18 16:55 | XMS_ITS | Patient Health Record ---
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
--- OUTSIDE RECORDS SUMMARY | 2024-10-18 16:55 | XMS_ITS | Clinical Summary ---
Author Organization [employer] Address [address] [facility] [address] [place] [address] Care Team Providers Care Legal Job Titles Name Role Phone Sahil Chen CHARACTER IMPERSONATOR Primary Care Provider [phone] Allergies Active Allergy Reactions Criticality Noted Date Comments Diphenhydramine Other 10/18/2022 Weakness, tiredness Haloperidol Shortness of breath High 10/18/2022 Jaw locks up and has tremors Metoclopramide 08/02/2024 Medications * This document contains information received from the source organization and may not represent a complete record from that organization. Continuous Blood Gluc Pelt Inspector (FreeStyle Shiraz 2 [place]) deviceIndication s:Type 1 diabetes mellitus with hyperglycemia (CMS/HCC) Use with sensor to monitor blood glucose levels 1 each 023 Active Acetaminophen Extra Strength 500 MG tablet Active Blood Glucose Monitoring Suppl (FreeStyle Mobile Lite) w/Device kit Active glucose blood (FREESTYLE [...] hours if needed for wheezing. 18 g 11 025 2025 Active promethazine (Phenergan) 25 MG tabletIndication s:Type 1 diabetes mellitus with hyperglycemia (CMS/HCC) TAKE 1 TABLET BY MOUTH THREE TIMES DAILY NEEDED FOR NAUSEA AND VOMITING 15 tablet 1 Active famotidine (Pepcid) 20 MG tabletIndication s:Gastroesophage al reflux disease without esophagitis TAKE 1 TABLET BY MOUTH DAILY AT BEDTIME 90 tablet 1 Active Tresiba FlexTouch 200 UNIT/ML injectionIndicat ions:Type 1 diabetes mellitus with hyperglycemia (CMS/HCC) Inject 20 Units under the skin in the morning. 3 mL 3 025 2024 Active promethazine (Phenergan) 25 MG tabletIndication s:Type [...] 20 days. 40 capsule 025 2024 Active Problems Patient Care Coordination No te [...] care ?? PLAN: 1. Follow up with [facility]: Recommended for follow-up: TBD 2. Patient goal is stabilization of symptoms. 3. Behavioral Recommendations a. Patient was sectioned and taken to [facility] via ambulance Head injury 05/31/2023 Overview [...] MH services. PLAN: 1. Follow up with [facility]: Not recommended for follow-up 2. 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 Reports diagnosed approx 2018 in [place] ?? Referral to establish with GI provider placed ?? Reports started on gabapentin 300mg BID by previous PCP and does provide some relief of symptoms. ?? Renewal of promethazine 25mg sent PRN. Reviewed med use and safety Resolved Problems Problem Noted Date Diagnosed Date Resolved Date Thoracic back pain 04/14/2023 Assessment & Plan (04/14/2023 6:45 PM EDT): [...] organization. Date Type Department Care Team Description 10/18/2024 Orders Only GENERIC EXTERNAL DATA DEPARTMENT Provider, Generic External Data 10/14/2024 Patient Outreach [facility] [address] [place] [address] Sahil Chen CNP Transition Of Care (Tcm) 10/09/2024 Telephone [facility] [address] [place] [address] Shivani Lopez, RUSTY 10/09/2024 Orders Only [facility] [address] [place] [address] Sahil Chen CNP Type 1 diabetes mellitus with hyperglycemia ([facility]) (Primary Dx) 10/08/2024 Refill [facility] [address] [place], [place] [phone] Name, MD Everett Gastroesophageal reflux disease without esophagitis 10/08/2024 Refill [facility] [address] [place] [address] Everett Angulo MD Type 1 diabetes mellitus with hyperglycemia ([facility]) 09/30/2024 Patient Outreach [facility] [address] [place] [address] Everett Angulo MD Pre-visit Planning (SDOH unable to complete, patient working. ) 09/16/2024 Telephone [facility] [address] [place] [phone] Gertrude Tyler, RN Results 09/13/2024 2:00 PM EST Office Visit [facility] [address] [place] [phone] Denice Rubin MD Dry cough (Primary Dx); Wheeze 09/12/[address] [address] Everett Angulo MD Nurse Triage 09/12/2024 Refill [facility] [address] [place] [address] Everett Angulo MD 09/10/2024 Telephone [facility] [address] [place] [phone] Everett Angulo MD Medication Question 09/10/2024 Patient Outreach [address] [address] Everett Angulo MD Transition Of Care (Tcm) 09/09/2024 Orders Only GENERIC EXTERNAL DATA DEPARTMENT Provider, Generic External Data 09/04/[address] [address] Everett Angulo MD Care Coordination ([facility] Care Plan) 09/01/2024 Orders Only GENERIC EXTERNAL DATA DEPARTMENT Provider, Generic External Data 08/07/2024 Orders Only [facility] External Provider, [facility] 08/05/[address] [address] Lindsey Cuellar NP Gastroesophageal reflux disease without esophagitis 08/05/2024 Orders Only GENERIC EXTERNAL DATA DEPARTMENT Provider, Generic External Data 08/02/2024 2:00 PM EST Office Visit [address] [address] Everett Angulo MD Epididymo-orchitis, acute (Primary Dx); Type 1 diabetes mellitus with hyperglycemia (CMS/HCC); Major depressive disorder, recurrent episode with anxious distress (CMS/HCC) 08/02/2024 Travel 08/02/2024 Telephone [facility] [address] [place] [address] Fabiola Brasher RN 08/01/2024 Orders Only GENERIC EXTERNAL DATA DEPARTMENT Provider, Generic External Data 07/31/2024 9:20 AM EST Office Visit [facility] [address] [place] [address] Lindsey Cuellar NP Upper abdominal pain (Primary Dx); Elevated glucose; Epigastric pain; Pain in both testicles 07/31/2024 Orders Only GENERIC EXTERNAL DATA DEPARTMENT Provider, Generic External Data 07/31/2024 Refill [facility] [address] [place] [address] Name, MD Everett Type 1 diabetes mellitus with hyperglycemia ([facility]/HCC) 07/26/2024 Telephone [facility] [address] [place] [address] Breanna Ireland RN Results (Xray result: normal) from Last 3 Months Immunizations Name Administration [...] EDT Office Visit [facility] [address] [place] [address] Sahil Chen, CHARACTER IMPERSONATOR [address] [place] [address] Health Maintenance Due Date Last Done Comments [...] 03/05/2025 03/05/2024, 03/05/20 Eye Exam 05/21/2025 05/21/2024, 10/0 08/2023, 05/21/2024, Additional history exists Tobacco Screening 09/13/2025 [...] WHOLE BLOOD Routine 10/18/2024 3:[address] ABDOMEN PELVIS WO CONTRAST Routine 10/11/2024 11:08 PM EST XR CHEST 2 VIEWS Routine 09/13/2024 2:12 [...] Routine 07/31/2024 10:20 AM EST Elevated glucose POCT GLYCATED HEMOGLOBIN, TOTAL Routine 02/26/2024 3:39 [...] Recently Relevant to Health Maintenance Results * (ABNORMAL) Glucose, Whole Blood (10/18/2024 3:01 PM EST) Glucose, Whole Blood 333(H) 60 - 115 mg/dL [facility] Comment:METER #: [id number] 5Testing performed in the Endocrinology Department [address] , [address], [facility]. 10/18/2024 3:01 PM EST 10/18/2024 3:05 PM EST us Generic External Data Provider LAB BLOOD ORDERAB LES Final Result Performing Organization Address City/State/[facility] Co de Phone Number [facility] [address] [place] [phone] * CT Abdomen Pelvis w/o Contrast (10/11/2024 11:08 PM EST) Anatomical Region Laterality Modality Body, Pelvis, Abdomen Computed T omography 10/11/2024 11:0 8 PM EST Narrative 10/11/2024 11:09 PM EST ? [facility] ?[address] ?[place] [address] ? CT Scan Report ? Signed ? Patient: Torres,Bradford J ?MR#: [id number] ?? [id number] ? : 1995 ?Acct:[id number] ? Age/Sex: 29 / M ?ADM Date: 02/21/25 ? Loc: HO.ED ? Attending Dr: ? Ordering Physician: Jorge Augustin ?? Date of Service: 10/11/24 ?? Procedure(s): CT abdomen pelvis wo IV con ?? Accession Number(s): [id number] ? cc: Name,Everett ROSE; Jorge Augustin ? Report Number: ?? [id number]: Total DLP = ??378.00 mGy-cm ? CLINICAL [...] by Fritz Douglass MD in OV> ? 10/11/242308 ? DD/ 07 ? TD/TT: 10/11/242307 ? Sofa Inspector: ? Procedure Note Geovanna, Aamir - 10/11/[address] [address] [address] Scan Report Signed Patient: Bradford Torres JMR#: [id number] : 1995Acct:[id number] Age/Sex: 29 / MADM Date: 10/11/24 Loc: HO.ED Attending Dr: Ordering Physician: Jorge Augustin Date of Service: 10/11/24 Procedure(s): CT abdomen pelvis wo IV con Accession Number(s): [id number] cc: Everett Angulo MD; Jorge Augustin Report Number: [id number]: Total DLP = 378.00 mGy-cm CLINICAL HISTORY: [...] in OV> 10/11/242308 DD/ 07 TD/TT: 10/11/242307 Sofa Inspector: [facility] External Provider IMG CT PROCEDURES Edited Result - Final * XR Chest 2 Views (09/13/2024 2:12 PM EST) Anatomical Region Laterality Modality Chest Radiographic Sheri ging 09/13/2024 2:12 PM EST Narrative 09/13/2024 2:33 PM EST ?[facility] ?[address] ?[place] [address] ?XRay Report ? Signed ? Patient: Bradford Torres ?MR#: [id number] ?? [id number] ? : 1995 ?Acct:[id number] ? Age/Sex: 29 / M ?ADM Date: 01/24/25 ? Loc: HO.HHCX ? Attending Dr: Denice Rubin MD ? Ordering Physician: Denice Rubin MD ?? Date of Service: 09/13/24 ?? Procedure(s): XR chest 2V ?? Accession Number(s): [id number] ? cc: Denice Rubin MD ? EXAMINATION: [...] DD/ 1412 ? TD/TT: 09/13/24 1422 ? Sofa Inspector: ? Procedure Note Donotallenter, Image - 09/13/[address] [address] XRay Report Signed Patient: Bradford Torres JMR#: [id number] : 1995Acct:[id number] Age/Sex: 29 Date: 09/13/24 Loc: HO.HHCX Attending Dr: Denice Rubin MD Ordering Physician: Denice Rubin MD Date of Service: 09/13/24 Procedure(s): XR chest 2V Accession Number(s): [id number] cc: Denice Rubin MD EXAMINATION: XR CHEST [...] August Clark MD 09/13/2024 02:29 PM EST Dictated By: August Clark MD Signed By: <Electronically signed by August Clark MD in OV> 09/13/24 1429 DD/ 1412 TD/TT: 09/13/24 1422 Sofa Inspector: Denice Rubin MD IMG XR PROCEDURES Final Re sult * Influenza B (ID NOW Rapid Molecular) (09/13/2024 2:06 PM EST) [facility] Influenza B Negative Negative, Indeterminate [facility] Swab 09/13/2024 2:06 PM EST Denice Rubin MD POINT OF CARE TEST ENTER/E DIT ORDERABLES Final Result Performing Organization Address [facility]/ZIP Co de Phone Number [facility] [address] [place] [phone] * Influenza A (ID NOW Rapid Molecular) (09/13/2024 2:06 PM EST) [facility] Influenza A Negative Negative, Indeterminate [facility] Swab 09/13/2024 2:06 PM EST Denice Rubin MD POINT OF CARE TEST ENTER/E DIT ORDERABLES Final Result Performing Organization Address [facility] Co de Phone Number [facility] [address] [place] [phone] * POCT COVID-19 Ag Goldman ID NOW (09/13/2024 2:06 PM EST) [facility] Coronavirus Antigen PCR Negative Negative, Indeterminate, None Detected, Invalid, Specimen unsatisfactory for evaluation, Weakly Positive Swab 09/13/2024 2:06 PM EST Denice Rubin MD POINT OF CARE TEST ENTER/E DIT ORDERABLES Final Result * (ABNORMAL) Respiratory Viral Panel PCR (09/13/2024 2:05 PM EST) [facility] Adenovirus PCR Not Detected Not Detect. [facility] Bordetella pertussis PCR Not Detected Not Detect. [facility] Comment:Interpret results wi th caution. If B. pertussis isspecifically suspected, additional testing using analternate method is recommended. Bordetella parapertussis PCR Not Detected Not Detect. [facility] Chlamydia pneumoniae PCR Not Detected Not Detect. [facility] Coronavirus 229E PCR Not Detected Not Detect. [facility] Coronavirus HKU1 PCR Not Detected Not Detect. [facility] Coronavirus NL63 PCR Not Detected Not Detect. [facility] Coronavirus OC43 PCR Not Detected Not Detect. [facility] SARS-CoV-2 PCR Not Detected Not Detect. [facility] Comment:SARS-CoV-2 not detec brooke by real-time RT-PCR.Note: If clinical suspicion for Sars-CoV-2 is high, continueto maintain precautions and consider repeat testing.Test results should be interpreted in the context ofclinical findings and other laboratory data.Rare polymorphisms exist that could lead to false-negativeor false-positive results. If results do not match theclinical findings, additional testing should be considered.Results reported to J [facility].This test has been authorized by the FDA under the EmergencyUse Authorization (EUA) for use by authorized laboratories. Influenza A PCR Detected(A) Not Detect. [facility] Influenza B PCR Not Detected Not Detect. [facility] Human metapneumovirus PCR Not Detected Not Detect. [facility] Rhino/Enterovirus PCR Not Detected Not Detect. [facility] Mycoplasma pneumoniae PCR Not Detected Not Detect. [facility] Parainfluenza 1 PCR Not Detected Not Detect. [facility] Parainfluenza 2 PCR Not Detected Not Detect. [facility] Parainfluenza 3 PCR Not Detected Not Detect. [facility] Parainfluenza 4 PCR Not Detected Not Detect. [facility] RSV PCR Not Detected Not Detect. [facility] Resp Panel NA Note See Note H [facility] Comment:All results must be correlated [...] assay is performed by Multiplexed PCR, utilizing CohBar Film Array. Swab 09/13/2024 2:05 PM EST 09/14/2024 8:41 AM EST us Denice Rubin MD LAB BLOOD ORDERABLES Final Result [facility] [address] [place], [place] [phone] * US SCROTUM DOPPLER (09/09/2024 10:19 PM EST) Only the most recent of4 resultswithin the time period is included. Anatomical Region Laterality Modality Abdomen Ultrasound 09/09/2024 10:1 9 PM EST Narrative 09/10/2024 8:26 AM EST ? [facility] ?[address] ?[place] [address] ? Ultrasound Report ? Signed ? Patient: Bradford Torres ?MR#: [id number] ?? [id number] ? : 1995 ?Acct:[id number] ? Age/Sex: 29 / M ?ADM Date: 09/09/24 ? Loc: HO.ED ? Attending Dr: ? Ordering Physician: Sedrick Grady MD ?? Date of Service: 09/09/24 ?? Procedure(s): US scrotum doppler ?? Accession Number(s): [id number] ? cc: Everett Angulo MD; Sedrick Grady MD ? CLINICAL HISTORY: testicular pain , no swelling ? US Scrotum with Doppler ? Comparison: US/NH/SR - US SCROTUM - 08/01/24 23:48 EST [...] ? DD/ 18 ? TD/TT: 09/09/242218 ? Sofa Inspector: ? Procedure Note Donunater, Image - 09/10/2024 [place] [address] Ultrasound Report Signed Patient: Bradford Torres JMR#: [id number] : 1995Acct:[id number] Age/Sex: 29 / MADM Date: 09/09/24 Loc: HO.ED Attending Dr: Ordering Physician: Sedrick Grady MD Date of Service: 09/09/24 Procedure(s): US scrotum doppler Accession Number(s): [id number] cc: Name,Everett ROSE; Sedrick Grady MD CLINICAL HISTORY: testicular pain , no swelling US Scrotum with Doppler Comparison: US/NH/SR - US SCROTUM - 08/01/24 23:48 EST [...] signed by Sebastian Graham MD in OV> 09/10/2426 DD/ 18 TD/TT: 09/09/242218 Sofa Inspector: [facility] External Provider IMG US PROCEDURES Edited Result - Final * US Scrotum (09/09/2024 10:19 PM EST) Only the most recent of4 resultswithin the time period is included. Anatomical Region Laterality Modality Body Ultrasound 09/09/2024 10:1 9 PM EST Narrative 09/09/2024 10:21 PM EST ? [facility] ?[address] ?[place] [address] ? Ultrasound Report ? Signed ? Patient: Bradford Torres ?MR#: [id number] ?? [id number] ? : 1995 ?Acct:[id number] ? Age/Sex: 29 / M ?ADM Date: 09/09/24 ? Loc: HO.ED ? Attending Dr: ? Ordering Physician: Sedrick Grady MD ?? Date of Service: 09/09/24 ?? Procedure(s): US scrotum ?? Accession Number(s): [id number] ? cc: Everett Angulo MD; Sedrick Grady MD ? CLINICAL HISTORY: testicular pain , no swelling ? US Scrotum with Doppler ? Comparison: US/NH/SR - US SCROTUM - 08/01/24 23:48 EST [...] ? DD/ 18 ? TD/TT: 09/09/242218 ? Sofa Inspector: ? Procedure Note Donotuseinterpreter, Image - 09/09/2024 [place] [address] Ultrasound Report Signed Patient: Bradford Torres JMR#: [id number] : 1995Acct:[id number] Age/Sex: 29 Date: 09/09/24 Loc: HO.ED Attending Dr: Ordering Physician: Sedrick Grady MD Date of Service: 09/09/24 Procedure(s): US scrotum Accession Number(s): [id number] cc: Name,Everett ROSE; Sedrick Grady MD CLINICAL HISTORY: testicular pain , no swelling US Scrotum with Doppler Comparison: US/NH/SR - US SCROTUM - 08/01/24 23:48 EST [...] in OV> 09/09/242220 DD/ 18 TD/TT: 09/09/242218 Sofa Inspector: us [facility] External Provider IMG US PROCEDURES Final Result * Lactic Acid (09/09/2024 8:47 PM EST) [facility] Lactic Acid 0.8 0.5 - 2.0 mmol/L [facility] 09/09/2024 8:47 PM EST 09/09/2024 8:53 PM EST Narrative [facility] - 09/09/2024 9:09 PM EST NOT ON ICE Generic External Data Provider LAB BLOOD ORDERAB LES Final Result [facility] [address] [place] [phone] * (ABNORMAL) CBC auto differential (09/09/2024 8:17 PM EST) Only the most recent of4 resultswithin the time period is included. [facility] White Blood Count 7.7 4.8 - 10.8 X10*3/uL [facility] Red Blood Count 4.72 4.60 - 5.80 X10*6/uL [facility] Hemoglobin 12.4(L) 14.0 - 18.0 g/dl [facility] Hematocrit 36.7(L) 42.0 - 52.0 % [facility] Mean Corpuscular Volume 77.8(L) 80.0 - 98.0 fL [facility] Mean Corpuscular Hemoglobin 26.3(L) 27.0 - 33.0 pg [facility] Mean Corpuscular HGB Conc 33.8 31.0 - 36.0 g/dl [facility] Red Cell Distribution Width 13.9 11.0 - 16.0 % [facility] Platelet Count 236 160 - 400 X10*3/uL [facility] Mean Platelet Volume 9.4 9.4 - 12.4 fL [facility] Neutrophils Percent Auto 71.7 45 - 73 % [facility] Imm Gran Pct Auto 0.1 0.0 - 0.4 % [facility] Lymphocytes Percent Auto 15.8(L) 20 - 40 % [facility] Monocytes Percent Auto 10.3 2 - 11 % [facility] Eosinophils Percent Auto 1.6 0 - 4 % [facility] Basophils Percent Auto 0.5 0 - 2 % [facility] NRBC Pct Auto 0.0 0.0 - 0.2 /100WBC [facility] Neutrophils Absolute Auto 5.5 2.0 - 8.3 x10*3/uL [facility] Imm Gran Abs Auto 0.01 0.00 - 0.03 X10*3/uL [facility] Lymphocytes Absolute Auto 1.2 1.2 - 4.9 X10*3/uL [facility] Monocytes Absolute Auto 0.8 0.1 - 1.2 X10*3/uL [facility] Eosinophils Absolute Auto 0.1 0.0 - 0.4 X10*3/uL [facility] Basophils Absolute Auto 0.0 0.0 - 0.2 X10*3/uL [facility] NRBC Abs Auto 0.000 0.0 - 0.012 X10*3/uL [facility] 09/09/2024 8:17 PM EST 09/09/2024 8:19 PM EST us Generic External Data Provider LAB BLOOD ORDERAB LES Final Result [facility] [address] [place] [phone] * (ABNORMAL) Comprehensive Metabolic Panel (09/09/2024 8:17 PM EST) Only the most recent of2 resultswithin the time period is included. Sodium 136 135 - 145 mmol/L [facility] Potassium 3.9 3.3 - 5.1 mmol/L [facility] Chloride 104 96 - 108 mmol/L [facility] Carbon Dioxide 21(L) 22 - 29 mmol/L [facility] Anion Gap 15 12 - 20 [facility] Urea Nitrogen (BUN) 15 9 - 16 mg/dL [facility] Creatinine, Serum 0.60 0.5 - 1.4 mg/dL [facility] Creatinine Clr Calc Pharmacy 178.3 [facility] Comment:eGFR (calculated fro m the MDRD study equation) and eCrCl(calculated from the Cockcroft-Gault equation) are based ondifferent parameters and may not yield comparable results.If eCrCl result is absurd, please check patient'sheight/weight. Estimated Glomerular Filt Rate >60 [facility] Comment:Chronic Kidney Disea se: Estimated GFR < 60 mL/min/1.38g8Cwshsn Kidney Disease: Estimated GFR < 15 mL/min/1.73m2 Glucose 112 60 - 115 mg/dL [facility] Calcium 8.6 8.4 - 10.2 mg/dL [facility] Bilirubin, Total 0.4 0.0 - 1.0 mg/dL [facility] Aspartate Amino Transferase 18 5 - 37 U/L [facility] Alanine Aminotransferase 12 0 - 40 U/L [facility] Total Protein 7.4 6.5 - 8.0 g/dL [facility] Albumin Level 4.2 3.5 - 5.0 g/dL [facility] Alkaline Phosphatase 64 39 - 117 U/L [facility] 09/09/2024 8:17 PM EST 09/09/2024 8:19 PM EST us Generic External Data Provider LAB BLOOD ORDERAB LES Final Result [facility] [address] [place] [phone] * Urinalysis w/reflex microscopic (09/09/2024 6:42 PM EST) Color Urine Yellow [facility] Appearance Urine Clear [facility] PH >=9.0 5.0 - 9.0 [facility] Glucose Urine UA Negative Negative mg/dL [facility] Urine Blood Negative Negative [facility] Specific Barton - Urine 1.025 1.005 - 1.025 [facility] Urine Protein Negative Neg-Trace mg/dL [facility] Urine Ketones 15 Negative mg/dL [facility] Nitrite Urine Negative Negative [facility] Leukocyte Esterase Urine Negative Negative [facility] 09/09/2024 6:42 PM EST 09/09/2024 6:44 PM EST Narrative [facility] - 09/09/2024 6:59 PM EST Urine, Clean Catch Generic External Data Provider LAB URINE ORDERAB LES Final Result Performing Organization Address [facility] de Phone Number [facility] [address] [place] [phone] * (ABNORMAL) Glucose, Whole Blood (09/01/2024 6:08 PM EST) Only the most recent of5 resultswithin the time period is included. Glucose, Whole Blood 151(H) 60 - 115 mg/dL [facility] Comment:METER #: [id number] 09/01/2024 6:08 PM EST 09/01/2024 6:15 PM EST Generic External Data Provider LAB BLOOD ORDERAB LES Final Result Performing Organization Address [facility] Co de Phone Number [facility] [address] [place] [phone] * CT Abdomen Pelvis w/ Contrast (09/01/2024 10:50 AM EST) Anatomical Region Laterality Modality Body, Pelvis, Abdomen Computed T omography 09/01/2024 10:5 0 AM EST Narrative 09/01/2024 6:48 PM EST ? [facility] ?[address] ?[place] [address] ? CT Scan Report ? Signed ? Patient: Torres,Bradford J ?MR#: [id number] ?? [id number] ? : 1995 ?Acct:[id number] ? Age/Sex: 29 / M ?ADM Date: 09/01/ ? Loc: HO.ED ? Attending Dr: ? Ordering Physician: Ulises Dejesus MD ?? Date of Service: 09/01/24 ?? Procedure(s): CT abdomen pelvis w IV con ?? Accession Number(s): [id number] ? cc: Ulises Dejesus MD; [facility] ? Report Number: ?? [id number]: Total DLP = ??378.00 mGy-cm ? CLINICAL [...] DD/ 1050 ? TD/TT: 09/01/24 1050 ? Sofa Inspector: ? Procedure Note Geovanna, Image - 09/01/[address] [place] [address] [address] Scan Report Signed Patient: Bradford Torres R#: [id number] : 1995Acct:[id number] Age/Sex: 29 / MADM Date: 09/01/24 Loc: HO.ED Attending Dr: Ordering Physician: Ulises Dejesus MD Date of Service: 09/01/24 Procedure(s): CT abdomen pelvis w IV con Accession Number(s): [id number] cc: Ulises Dejesus MD; [facility] Report Number: [id number]: Total DLP = 378.00 mGy-cm CLINICAL HISTORY: abdominal pain CT abdomen and pelvis with contrast Comparison: None Findings: The lung bases are clear. Unremarkable gallbladder and solid organs. No urolithiasis. No bowel obstruction, pneumoperitoneum, or pneumatosis. Pelvic contents unremarkable. Normal appendix. No acute fracture. IMPRESSION: No acute findings. This document has been electronically signed by: Lance Chamebrlain MD on 09/01/2024 10:50:06 Dictated By: Lance Chamberlain MD Signed By: <Electronically signed by Lance Chamberlain MD in OV> 09/01/24 1849 DD/ 1050 TD/TT: 09/01/24 1050 Sofa Inspector: [facility] External Provider IMG CT PROCEDURES Edited Result - Final * (ABNORMAL) Beta-Hydroxybutyrate (09/01/2024 9:30 AM EST) Only the most recent of2 resultswithin the time period is included. Beta-Hydroxybu tyrate 1.28(H) 0.02 - 0.27 mmol/L [facility] 09/01/2024 9:30 AM EST 09/01/2024 9:34 AM EST Generic External Data Provider LAB BLOOD ORDERAB LES Final Result Performing Organization Address [facility] Co de Phone Number [facility] [address] [place] [phone] * C-reactive Protein (09/01/2024 9:30 AM EST) C Reactive Protein <0.10 < or = 0.50 mg/dL [facility] 09/01/2024 9:30 AM EST 09/01/2024 9:34 AM EST [facility] External Data Provider LAB BLOOD ORDERAB LES Final Result Performing Organization Address [facility] Co de Phone Number [facility] [address] [place] [phone] * XR Knee 1-2 Views Left (08/07/2024 5:27 AM EST) Anatomical Region Laterality Modality Lower Extremities, Knee Left Radiogra phic Imaging 08/07/2024 5:27 AM EST Narrative 08/07/2024 9:13 AM EST ? [facility] ?[address] ?[place] [address] ?XRay Report ? Signed ? Patient: Torres,Bradford J ?MR#: [id number] ?? [id number] ? : 1995 ?Acct:[id number] ? Age/Sex: 29 / M ?ADM Date: 08/07/24 ? Loc: HO.ED ? Attending Dr: ? Ordering Physician: Sedrick Grady MD ?? Date of Service: 08/07/24 ?? Procedure(s): XR knee LT 2V ?? Accession Number(s): [id number] ? cc: Everett Angulo MD; Sedrick Grady [...] DD/ 0527 ? TD/TT: 08/07/24 0532 ? Sofa Inspector: ? Procedure Note Aamir Austin - 08/07/[address] [place] [address] XRay Report Signed Patient: Bradford Torres JMR#: [id number] : 1995Acct:[id number] Age/Sex: 29 / MADM Date: 08/07/24 Loc: HO.ED Attending Dr: Ordering Physician: Sedrick Grady MD Date of Service: 08/07/24 Procedure(s): XR knee LT 2V Accession Number(s): [id number] cc: Name,Everett ROSE; Sedrick Grady MD EXAMINATION: [...] 08/07/24 0910 DD/ 0527 TD/TT: 08/07/24 0532 Sofa Inspector: [facility] External Provider IMG XR PROCEDURES Edited Result - Final * (ABNORMAL) Urinalysis, Complete, with Reflex to Culture (08/05/2024 2:20 AM EST) Only the most recent of2 resultswithin the time period is included. Color Urine Yellow [facility] Appearance Urine Clear [facility] PH 6.5 5.0 - 9.0 [facility] Glucose Urine UA >=1000(A) Negative mg/dL [facility] Urine Blood Negative Negative [facility] Specific Barton - Urine 1.025 1.005 - 1.025 [facility] Urine Protein 30 (1+)(A) Neg-Trace mg/dL [facility] Urine Ketones Negative Negative mg/dL [facility] Nitrite Urine Negative Negative [facility] Leukocyte Esterase Urine Negative Negative [facility] RBC Urine 0-2 0 - 2 /HPF [facility] Urine WBC 0-5 0 - 5 /HPF [facility] Urine Squamous Epithelial Cell 0-2 0 - 2 /HPF [facility] Urine Bacteria None Seen None Seen [facility] Hyaline Casts, Urine 0-2 0 - 2 /LPF [facility] 08/05/2024 2:20 AM EST 08/05/2024 2:22 AM EST Narrative [facility] - 08/05/2024 2:45 AM EST Urine, Clean Catch Generic External Data Provider LAB URINE ORDERAB LES Final Result Performing Organization Address City/[facility]/ZIP Co de Phone Number [facility] [address] [place] [phone] * Hold Red (08/05/2024 2:10 AM EST) Hold Red See Note [facility] Comment:Specimen held untest ed for 24 hours; Call to requestChemistry testing. 08/05/2024 2:10 AM EST 08/05/2024 2:20 AM EST Generic External Data Provider LAB BLOOD ORDERAB LES Final Result Performing Organization Address City/[facility]/ZIP Co de Phone Number [facility] [address] [place] [phone] * (ABNORMAL) Lipase (08/05/2024 2:10 AM EST) Only the most recent of2 resultswithin the time period is included. Lipase 6(L) 8 - 78 U/L [facility] 08/05/2024 2:10 AM EST 08/05/2024 2:14 AM EST us Generic External Data Provider LAB BLOOD ORDERAB LES Final Result Performing Organization Address City/[facility]/ZIP Co de Phone Number [facility] [address] [place] [phone] * Basic Metabolic Panel (08/05/2024 2:10 AM EST) Only the most recent of3 resultswithin the time period is included. Sodium 140 135 - 145 mmol/L [facility] Potassium 3.6 3.3 - 5.1 mmol/L [facility] Chloride 105 96 - 108 mmol/L [facility] Carbon Dioxide 27 22 - 29 mmol/L [facility] Anion Gap 12 12 - 20 [facility] Urea Nitrogen (BUN) 15 9 - 16 mg/dL [facility] Creatinine, Serum 0.87 0.5 - 1.4 mg/dL [facility] Creatinine Clr Calc Pharmacy 116.5 [facility] Comment:eGFR (calculated fro m the MDRD study equation) and eCrCl(calculated from the Cockcroft-Gault equation) are based ondifferent parameters and may not yield comparable results.If eCrCl result is absurd, please check patient'sheight/weight. Estimated Glomerular Filt Rate >60 [facility] Comment:Chronic Kidney Disea se: Estimated GFR < 60 mL/min/1.94d5Cogcpe Kidney Disease: Estimated GFR < 15 mL/min/1.73m2 Glucose 88 60 - 115 mg/dL [facility] Calcium 9.1 8.4 - 10.2 mg/dL [facility] 08/05/2024 2:10 AM EST 08/05/2024 2:14 AM EST us Generic External Data Provider LAB BLOOD ORDERAB LES Final Result Performing Organization Address City/[facility]/ZIP Co de Phone Number [facility] [address] [place] [phone] * Hepatic Function Panel (08/01/2024 11:23 PM EST) Only the most recent of2 resultswithin the time period is included. Bilirubin, Total 0.5 0.0 - 1.0 mg/dL [facility] Bilirubin, Direct 0.2 0.0 - 0.5 mg/dL [facility] Aspartate Amino Transferase 19 5 - 37 U/L [facility] Alanine Aminotransferase 17 0 - 40 U/L [facility] Total Protein 6.7 6.5 - 8.0 g/dL [facility] Albumin Level 3.9 3.5 - 5.0 g/dL [facility] Alkaline Phosphatase 65 39 - 117 U/L [facility] 08/01/2024 11:2 3 PM EST 08/01/2024 11:26 PM EST us Generic External Data Provider LAB BLOOD ORDERAB LES Final Result [facility] [address] [place] [phone] * Chlamydia/N. Gonorrhoeae RNA, TMA, Urogenitial (07/31/2024 3:08 PM EST) CT PCR NOT DETECTED Not Detect. [facility] Comment:A not detected test result [...] psychologicalconsequences. NG PCR NOT DETECTED Not Detect. [facility] Comment:A not detected test result [...] PM EST 07/31/2024 3:12 PM EST Narrative [facility] - 07/31/2024 5:21 PM EST Urine us Generic External Data Provider LAB MICROBIOLOGY - GENERAL ORDERABLES Final Result [facility] [address] [place] [phone] * VENOUS BLOOD GAS (07/31/2024 1:17 PM EST) VBG pH 7.43 7.32 - 7.43 [facility] Comment:METER #: [id number] additional_comment: Cb omoruna VBG PCO2 39 mmHg [facility] Comment:METER #: [id number] additional_comment: Cb omoruna VBG PO2 223 mmHg [facility] Comment:METER #: [id number] additional_comment: Cb omoruna VBG Base Excess 2.5 mmol/L [facility] Comment:METER #: [id number] additional_comment: Cb omoruna VBG HCO3 26 22 - 26 mmol/L [facility] Comment:METER #: [id number] additional_comment: Cb omoruna O2 Sat, Carlin 99.0 % [facility] Comment:METER #: [id number] additional_comment: Cb omoruna 07/31/2024 1:17 PM EST 07/31/2024 1:22 PM EST Generic External Data Provider LAB BLOOD ORDERAB LES Final Result Performing Organization Address City/[facility]/ZIP Co de Phone Number [facility] [address] [place] [phone] * POCT glucose manually resulted (07/31/2024 10:20 AM EST) Glucose Blood, POC 198 60 - 200 mg/dL Blood Capillary blood specimen / Unknown 07/31/2024 10:20 AM EST Lindsey Cuellar NP POINT OF CARE TEST ENTER/EDIT O RDERABLES Final Result * (ABNORMAL) POCT A1C (02/26/2024 3:39 PM EDT) Hemoglobin A1C 9.3(A) 4.0 - 6.0 % Blood 02/26/2024 3:[address] [facility] Amna Urrutia [facility] POINT OF CARE TEST ENTER/EDIT O RDERABLES Final Result * Hepatitis C Antibody with Reflex to HCV, RNA, Quantitative, Real-Time PCR (11/15/2023 1:28 PM EDT) Pathologist [facility] Hepatitis C Antibody Nonreactive Nonreactive [facility] Comment:Antibodies to HCV no t detected; does not exclude early acuteHCV infection. Blood Venous blood specimen / Unknown 11/15/2023 1:28 PM EDT 11/15/2023 4:[address] [facility] LAB BLOOD ORDERABLES Final Resu lt Performing Organization Address [facility]/ZIP Co de Phone Number [facility] [address] [place] [phone] * Lipid Panel, Standard (11/15/2023 1:28 PM EDT) Triglycerides 56 <150 mg/dL [facility] Comment:Desirable Triglyceri de: less than 150 mg/dLBorderline High Triglyceride 150-199 mg/dLHigh Triglyceride: 200-499 mg/dLVery High Triglyceride: greater than or equal to 5OO mg/dL Cholesterol 145 <200 mg/dL [facility] Comment:Desirable Cholestero l: less than 200 mg/dLBorderline High Cholesterol: 200-239 mg/dLHigh Cholesterol: greater than 239 mg/dL LDL Cholesterol Calculated 84 <100 mg/dL [facility] Comment:Desirable LDL: less than 100 mg/dLNear Optimal/Above Optimal LDL: 110- 129 mg/dLBorderline High LDL: 130-159 mg/dLHigh LDL: 160-189 mg/dLVery High LDL: greater than or equal to 190 mg/dL HDL Cholesterol 50 >40 mg/dL [facility] Comment:Desirable HDL: great er than 40 mg/dL Note: This HDL assay may give artificially low results in patients with liver disease. Blood Venous blood specimen / Unknown 11/15/2023 1:28 PM EDT 11/15/2023 4:[address] [facility] LAB BLOOD ORDERABLES Final Resu lt [facility] [address] [place] [phone] * HIV-1 RNA, Quantitative, Real-Time PCR with Reflex to Genotype (RTI, PI, Integrase) (01/06/2023 10:25 AM EDT) HIV 1 RNA, QN PCR NOT DETECTED copies/mL [facility], HIV 1 RNA, QN PCR NOT DETECTED Log copies/mL [facility], Comment: REFERENCE RANGE: NOT DETECTED copies/mL ?NOT DETECTED ??Log copies/mL This test was performed using Real-Time Polymerase Chain Reaction. Reportable range is 20 to 10,000,000 copies/mL (1.30-7.00 Log copies/mL). 01/06/2023 10:2 5 AM EDT 01/06/2023 10:26 AM EDT Narrative [facility] - 01/11/2023 1:53 AM EDT FASTING:NO SPECIMEN COLLECTED AT PROVIDER OFFICE. FASTING: NO Amna Urrutia [employer] LAB BLOOD ORDERABLES Final Resu lt [facility] [address] [facility], [place] [address] [facility], [address] [place] [phone] from Last 3 Months or Most Recently Relevant to Health Maintenance Insurance [facility] C[facility] Care Teams Legal Job Titles Relationship Specialty Start Date End Date Sahil Chen CNP [address] [place] [phone] PCP - General Family Medicine 10/09/24 Chris Pack Jr Data Communications TechnicianParty Bus Driver 09/04/24
--- OUTSIDE RECORDS SUMMARY | 2024-10-18 16:55 | XMS_ITS | Encounter Summary ---
Author Organization [employer] [facility] Address [address] [facility] 7[address] [place] [address] Care Team Providers Care Line Production Cook Name Role Phone Amna Urrutia Primary Care Provider [phone] Name, Everett ROSE Primary Care Provider [phone] Sahil Chen CNP Primary Care Provider [phone] Reason for Visit * Reason Onset Date Comments Med Refill 05/03/2023 Encounter Details Date Type Department Care Team ([facility] [address] Contact Info) Description 05/03/2023 Refill [facility] [address] [place] [phone] Amna Urrutia FNP [address] [place] [address] Type 1 diabetes mellitus with hyperglycemia ([facility]) Social History Tobacco Use Types Packs/Day [...] [facility] MEDICINE [address] [place] [address] Sahil Chen CNP [address] [place] [address] documented as of this encounter Visit Diagnoses Diagnosis Type 1 diabetes mellitus with hyperglycemia (CMS/HCC) documented in this encounter Additional Health Concerns Assessment Noted Time PHQ-9 Depression Total Score: 16 04/17/ 023 8:52 AM EDT documented as of this encounter Care Teams Line Production Cook Relationship Specialty Start Date End Date Amna Urrutia FNP [address] [place] [address] PCP - General Family Medicine 01/01/23 04/18/24 Name, MD Everett [address] [place], [place] [phone] PCP - General Internal Medicine 04/19/24 10/08/24 Sahil Chen CNP [address] [place] [address] PCP - General Family Medicine 10/09/24 Chris Pack Jr Vein PumperInspector General 09/04/24 documented as of this encounter
--- OUTSIDE RECORDS SUMMARY | 2024-10-18 16:55 | XMS_ITS | Encounter Summary ---
Author Organization [facility] Address [address] [place] [address] Phone Care Team Providers Care Acid Operator Name Role Phone Santos Mueller MD Primary Care Provider [phone] Encounter Details Date Type Department Care Team (Late st Contact Info) Description 08/05/2024 Documentation Only [facility], [address] [place] [address] Jessica Sprague [address] [place] [address] Social History Tobacco Use Types [...] on filedocumented in this encounter Care Teams Acid Operator Relationship Specialty Start Date End Date Santos Mueller MD [address] [place] [address] PCP - General Emergency Medicine 07/28/23 documented as of this encounter
== END 2024-10-18 15:40 | disposition home or self-care (01) ==
PROVIDERS: PCP Internal Medicine Geriatric Medicine; Visit Provider Nurse Practitioner Adult Health
DX: E10.9 Type 1 diabetes mellitus without complications (principal); E83.52 Hypercalcemia
CPT/HCPCS: 95251; 99214

== ENCOUNTER → 2024-10-18 14:45 | Outpatient (BNVA) | payer MEDICAID, SELFPAY | PROVIDERS: PCP Internal Medicine Geriatric Medicine; Visit Provider Nurse Practitioner Adult Health | DX: E83.52 Hypercalcemia (principal); E10.43 Type 1 diabetes mellitus with diabetic autonomic (poly)neuropathy; K31.84 Gastroparesis | CPT/HCPCS: 82947; 83036; 99212 ==

== ENCOUNTER 2024-11-07 14:47 | Emergency (ER) | payer MEDICAID, SELFPAY ==
--- NOTE | 2024-11-07 15:17 | ED_ITS ---
HPI - General Adult General Stated complaint: blood surgar 337 Related Data Home Medications ?Medication ?Instructions ?Recorded ?Confirmed pantoprazole 40 mg tablet,delayed 40 mg PO DAILY@0630 12/19/22 06/01/23 release (Protonix) promethazine 25 mg tablet 25 mg PO TID PRN nausea/vomiting 01/23/23 06/01/23 acetaminophen 500 mg tablet 500 mg PO Q6H PRN 04/09/24 Previous Rx's ?Medication ?Instructions ?Recorded ondansetron 4 mg disintegrating 4 mg PO DAILY PRN nausea and 02/23/24 tablet vomiting 5 days #14 tabs albuterol sulfate 90 mcg/actuation 2 puff inhalation QID PRN 04/13/24 aerosol inhaler shortness of breath or wheezing #6.7 grams cyclobenzaprine 10 mg tablet 10 mg PO TID #10 tabs 05/07/24 gabapentin 100 mg capsule 100 mg PO TID #30 caps 05/07/24 acetone (urine) test (Ketone Urine #25 ea 06/19/24 Test strips) blood-glucose meter,continuous #1 ea 06/19/24 (Dexcom G7 Electronics Detail Draftsperson) blood-glucose sensor (Dexcom G7 #6 ea 06/19/24 Sensor device) glucagon 3 mg/actuation nasal 3 mg intranasal ONCE PRN 06/19/24 spray (Baqsimi) unresponsive hypoglycemia 30 days #2 ea insulin degludec 200 unit/mL (3 20 unit (0.1 mL) subcut DAILY 30 10/11/24 mL) subcutaneous pen (Tresi days #6 mL FlexTouch U-200 insulin) ondansetron 4 mg disintegrating 4 mg PO Q8H PRN nausea and 10/11/24 tablet vomiting #20 tabs Novolog FlexPen U-100 Insulin 100 1 sliding scale dose subcut 11/07/24 unit/mL (3 mL) subcutaneous TIDWMEAL 30 days #9 mL (insulin aspart U-100) Allergies Allergy/AdvReac Type Severity Reaction Status Date / Time diphenhydramine Allergy Anaphylaxis Verified 10/11/24 17:59 [From Benadryl] haloperidol [From Haldol] Allergy Difficulty Verified 09/09/24 16:06 Swallowing lorazepam [From Ativan] AdvReac Difficulty Verified 09/09/24 16:06 Breathing metoclopramide [From Reglan] AdvReac Anxiety Verified 09/09/24 16:06 [facility] Past Medical History Medical History Abdominal pain Dental infection Colitis DKA (diabetic ketoacidosis) Hyperglycemia 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 type 1 Surgical History History of esophagogastroduodenoscopy (EGD) Family History Family History Paternal Grandmother Breast cancer Family/Other Brain cancer Social History Social History Household Members: Other Household Members Other:: cousin Housing: House Do you presently have visiting nurse or other home services: No Alcohol intake: current Alcohol intake frequency: holidays/special occasions only Patient Tobacco Use Status: Current everyday Tobacco user Tobacco use type: Cigarette Cigarette Packs Per Day: 0 Cigarettes Per Day: 0 Years Smoked: 10 e-Cigarette/Vaping Use: Never Used Second Hand Smoke Exposure: No Substance Use Type: Marijuana Advance Directives: No Advance Directives Information Provided: No service: No Current occupational status: employed 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 RME assessment and note performed by: Natividad Beard PA-C This is a 29-year-old male, with a history of type 1 diabetes, who presents emergency department as he ran out of his insulin. Patient states that he was having difficulties with insulin refills as he was awaiting a prior authorization which he just received in the waiting room. Patient reports that he would like to just leave as he is feeling okay to get his medication. Advised pt to say to be evaluated, however pt states that he will return should sxs or blood glucose stays elevated. Discharge Plan Discharge Clinical Impression: Diabetes mellitus type 1 Patient Disposition: Left W/O Completing Treatment Prescriptions: No Action (DME) Dexcom G7 Sensor Device See Rx Instructions .ROUTE .MEDSUPPLY Qty: 6 6RF Rx Instructions: As directed every 10 days (DME) Dexcom G7 Electronics Detail Draftsperson Misc See Rx Instructions .ROUTE .MEDSUPPLY Qty: 1 1RF Rx Instructions: As directed (DME) Ketone Urine Test Strip See Rx Instructions .ROUTE .MEDSUPPLY Qty: 25 3RF Rx Instructions: As directed prn glucose over 250, nausea/vomiting tid Baqsimi 3 mg/actuation spray,non-aerosol 3 mg intranasal ONCE MDD 6mg may repeat in 15 minutes PRN (Reason: unresponsive hypoglycemia) 30 Days Qty: 2 1RF insulin degludec [Tresiba FlexTouch U-200] 200 unit/mL (3 mL) insulin pen 20 unit subcut DAILY 30 Days Qty: 6 2RF insulin aspart U-100 [Novolog FlexPen U-100 Insulin] 100 unit/mL (3 mL) insulin pen 1 sliding scale dose subcut TIDWMEAL MDD 25 units 30 Days Qty: 9 11RF Rx Instructions: 1 unit for every 35 points over 135 1 unit for every 15 carbohydrates pantoprazole [Protonix] 40 mg tablet,delayed release (DR/EC) 40 mg PO DAILY@0630 promethazine 25 mg tablet 25 mg PO TID PRN (Reason: nausea/vomiting) ondansetron 4 mg tablet,disintegrating 4 mg PO Q8H PRN (Reason: nausea and vomiting) Qty: 20 0RF ondansetron 4 mg tablet,disintegrating 4 mg PO DAILY PRN (Reason: nausea and vomiting) 5 Days Qty: 14 0RF albuterol sulfate 90 mcg/actuation HFA aerosol inhaler 2 puff inhalation QID PRN (Reason: shortness of breath or wheezing) Qty: 6.7 0RF gabapentin 100 mg capsule 100 mg PO TID Qty: 30 0RF cyclobenzaprine 10 mg tablet 10 mg PO TID Qty: 10 0RF acetaminophen 500 mg tablet 500 mg PO Q6H PRN Interventions: LWBS Worksheet Last Done: 11/07/24 16:01 Discharge Date/Time: 11/07/24 16:02
== END 2024-11-07 16:02 | disposition left against medical advice (07) ==
PROVIDERS: Emergency Provider Emergency Medicine; PCP Internal Medicine Geriatric Medicine
DX: E10.9 Type 1 diabetes mellitus without complications (principal)

== ENCOUNTER 2024-11-27 13:52 | Outpatient (AMB) | payer MEDICAID, SELFPAY ==
--- NOTE | 2024-11-27 13:53 | A.OFFVIS_ITS ---
Intake Visit Reasons: epididymitis Intake Note: New patient presents today for initial visit for epididymitis Urology Medication:none Blood Thinner:none Antibiotic Allergies:none Allergies diphenhydramine [From Benadryl] Allergy (Verified 11/27/24 15:33) Anaphylaxis haloperidol [From Haldol] Allergy (Verified 11/27/24 15:33) Difficulty Swallowing lorazepam [From Ativan] Adverse Reaction (Verified 11/27/24 15:33) Difficulty Breathing metoclopramide [From Reglan] Adverse Reaction (Verified 11/27/24 15:33) Anxiety Medication List - Last Reconciled 11/27/24 by MERCEDES Abdullahi acetaminophen 500 mg PO Q6H PRN acetone (urine) test (Ketone Urine Test strips) As directed prn glucose over 250, nausea/vomiting tid albuterol sulfate 90 mcg/actuation 2 puffs inhalation QID PRN blood-glucose sensor (DexCalpian G7 Sensor device) As directed every 10 days blood-glucose,event specialist,cont (Dexcom G7 Consulting Nurse) As directed cyclobenzaprine 10 mg PO TID glucagon 3 mg/actuation (Baqsimi) 3 mg intranasal ONCE PRN 30 days MDD 6mg may repeat in 15 minutes insulin degludec (Tresiba FlexTouch U-200 insulin) 20 units (0.1 mL) subcut DAILY 30 days Novolog FlexPen U-100 Insulin (insulin aspart U-100) 1 sliding scale dose subcut TIDWMEAL 30 days MDD 25 units NS ondansetron 4 mg PO Q8H PRN pantoprazole (Protonix) 40 mg PO DAILY@0630 promethazine 25 mg PO TID PRN HPI Comments Details: Bradford Torres is a very pleasant 29-year-old male patient of Dr. Angulo. He has a past medical history of type 1 diabetes, colitis, DKA, and Gates's esophagus. He presents to the office today as a new patient for epididymitis as well as flank pain he has been experiencing. In discussion with the patient today he reports having seeked emergency room late last year and again earlier this year for ongoing scrotal discomfort and swelling he had been experiencing. He reports being diagnosed with epididymitis and completing antibiotic therapy as prescribed and has not had any further episodes since. He is refusing physical assessment today as he feels symptoms have resolved however he reports his main concern is his ongoing issues with his gastroparesis and most recently has been experiencing bilateral flank pain. He reports symptoms typically start with pain to his upper chest and abdomen in when he attempts to lay down as this at times can be in alleviating factor he starts experiencing flank pain. No CVA tenderness noted on exam today. He otherwise denies any b othersome urinary issues. He denies urinary urgency, urinary frequency, incontinence, nocturia, hematuria, dysuria, foul smelling urine, changes to urinary stream, fever, and or chills. He is happy with his current voiding parameters. When asked he is not currently sexually active. We discussed obtaining retroperitoneal ultrasound for further assessment evaluation. In office urinalysis results reviewed with the patient today. He otherwise offers no other issues or concerns at this time. Plan An ultrasound of the kidneys and bladder will be obtained to exclude any urological conditions contributing to flank pain, acknowledging concern about an undocumented kidney problem linked to his diabetes mellitus. Current management with omeprazole for GERD and gastroparesis will continue as per gastroenterological guidance. Recent epididymitis treated successfully with antibiotics is stable; worsening would prompt further care. Additional nephrology input may be pursued if renal complications related to diabetes are substantiated. Patient was informed and verbally consented to the use of an ambient scribe for clinic note documentation during this visit. [facility] Medical History Abdominal pain Dental infection Colitis DKA (diabetic ketoacidosis) Hyperglycemia 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 type 1 Surgical History History of esophagogastroduodenoscopy (EGD) Family History Paternal Grandmother Breast cancer Family/Other Brain cancer Social History Household Members: Other Household Members Other:: cousin Housing: House Do you presently have visiting nurse or other home services: No Alcohol intake: current Alcohol intake frequency: holidays/special occasions only Patient Tobacco Use Status: Current everyday Tobacco user Tobacco use type: Cigarette Cigarette Packs Per Day: 0 Cigarettes Per Day: 0 Years Smoked: 10 e-Cigarette/Vaping Use: Never Used Second Hand Smoke Exposure: No Substance Use Type: Marijuana service: No Current occupational status: employed Current occupation: rt handed- [employer] Review of Systems Const All systems reviewed & are unremarkable except as noted in HPI and below Physical Exam Const General: cooperative, healthy appearing, comfortable, no acute distress, well developed, alert and awake Orientation/consciousness: patient oriented x3 Limitations: no limitations HEENT Head: Yes normal to inspection, Yes normocephalic and Yes atraumatic Ears: hearing grossly normal bilaterally Eyes General: appearance normal, both eyes and all related structures Neck Neck: Yes normal visual inspection and Yes trachea midline Chest Chest palpation & inspection: normal inspection of the chest Resp Effort & Inspection: normal respiratory effort and able to speak in complete sen tences Cardio Rate: regular rate GI Inspection: Yes normal to inspection General: Yes no CVA tenderness Back/Spine/Pelvis Back: no CVA tenderness Skin General skin exam: no rashes or lesions noted Neuro General: patient oriented x3 Extrem General: Yes normal to inspection Psych Appearance: grossly normal and well kempt Mental Status: mental status grossly normal Speech and movement: Normal speech and movement present and Clear speech present Affect: normal affect Attitude: cooperative Thought process: Normal thought process present Thought content: Normal thought content present Insight: Fair insight present (Psych) Judgement: Fair judgement present (Psych) Assessment & Plan Assessment & Plan (1) Epididymitis: Code(s): N45.1 - Epididymitis Category: Medical Plan In office urinalysis results reviewed with the patient today; as noted above. Physical assess it was offered however declined. We discussed potential causes of flank pain. Will obtain retroperitoneal ultrasound for further assessment evaluation. Patient currently denies any bothersome urinary issues. He reports be happy with current voiding parameters. Follow-up in 1-3 months with imaging; or sooner with any issues, concerns, and or questions. Orders: Orders US retroperitoneal comp Today R10.9 - Unspecified abdominal pain Patient Instructions: The patient had an opportunity to ask questions regarding the treatment plan. All questions were answered. Physical exam, labs, and imaging were discussed and reviewed in detail. As well as risks, benefits, and discussion of treatment choices. No major barriers to understanding were identified. The patient expressed understanding and agreement with the above treatment plan. The patient was made aware they should contact our office by phone for worsening of their current condition, the appearance of new symptoms, or with any quest ions or concerns. Compliance is encouraged with any medications and follow up testing that is ordered. It is a privilege to be allowed the opportunity to participate in? your urological care.? Again, if you have any questions or concerns If you have any questions or concerns please do not hesitate to contact me. The office is [phone]. This note is constructed using voice recognition software. While every effort has been made to ensure accuracy adult basic education manager errors may have been included. Yours sincerely, MERCEDES Abdullahi Coding Level of Care Code New Pt Level 3 (23942) Diagnoses Epididymitis N45.1
--- OUTSIDE RECORDS SUMMARY | 2024-11-27 16:06 | XMS_ITS | Encounter Summary ---
Author Organization [employer] Address [address] 7[address] [place] [address] Care Team Providers Care Neurological Surgeon Name Role Phone Amna Urrutia Primary Care Provider [phone] Name, Everett ROSE Primary Care Provider [phone] Sahil Chen CNP Primary Care Provider [phone] Reason for Visit * Reason Comments Med Refill Encounter Details Date Type Department Care Team ([facility] st Contact Info) Description 10/04/2023 Refill [facility] [address] [place], [place] [phone] Amna Urrutia FNP [address] [place] [address] Type 1 diabetes mellitus with hyperglycemia ([facility]) Social History Tobacco Use Types [...] Care Team (Late st Contact Info) Description 12/27/2024 11:15 AM EDT Office Visit [facility] [address] [place] [address] Sahil Chen CNP [address] [place] [address] documented as of this encounter Visit Diagnoses Diagnosis Type 1 diabetes mellitus with hyperglycemia (CMS/HCC) documented in this encounter Additional Health Concerns Assessment Noted Time PHQ-9 Depression Total Score: 16 023 8:52 AM EDT documented as of this encounter Care Teams Neurological Surgeon Relationship Specialty Start Date End Date Amna Urrutia FNP [address] [place] [address] PCP - General Family Medicine 01/01/23 04/18/24 Everett Angulo MD [address] [place] [address] PCP - General Internal Medicine 04/19/24 10/08/24 Sahil Chen CNP [address] [place] [address] PCP - General Family Medicine 10/09/24 Chris Pack Jr Technicians And Trades WorkersAnswering Service Telephone Operator 09/04/24 documented as of this encounter
--- OUTSIDE RECORDS SUMMARY | 2024-11-27 16:06 | XMS_ITS | Encounter Summary ---
Author Organization [employer] Address [address] 7[address] [place] [address] Care Team Providers Care Microwave Supervisor Name Role Phone Amna Urrutia Primary Care Provider [phone] Name, Everett ROSE Primary Care Provider [phone] Sahil Chen CNP Primary Care Provider [phone] Reason for Visit * Reason Comments Med Refill Encounter Details Date Type Department Care Team ([facility] st Contact Info) Description 09/08/2023 Refill [facility] [address] [place], [place] [phone] Amna Urrutia FNP [address] [place] [address] Type 1 diabetes mellitus with hyperglycemia ([facility]) Social History Tobacco Use Types [...] Description 12/27/2024 11:15 AM EDT Office Visit [facility] MEDICINE [address] [place] [address] Sahil Chen CNP [address] [place] [address] documented as of this encounter Visit Diagnoses Diagnosis Type 1 diabetes mellitus with hyperglycemia (CMS/HCC) documented in this encounter Additional Health Concerns Assessment Noted Time PHQ-9 Depression Total Score: 16 023 8:52 AM EDT documented as of this encounter Care Teams Microwave Supervisor Relationship Specialty Start Date End Date Amna Urrutia FNP [address] [place] [address] PCP - General Family Medicine 01/01/23 04/18/24 Everett Angulo MD [address] [place] [address] PCP - General Internal Medicine 04/19/24 10/08/24 Sahil Chen CNP [address] [place] [address] PCP - General Family Medicine 10/09/24 Chris Pack Jr Figure Refinisher And RepairerBranch General Manager 09/04/24 documented as of this encounter
--- OUTSIDE RECORDS SUMMARY | 2024-11-27 16:06 | XMS_ITS | Encounter Summary ---
Author Organization [employer] Address [address] 7t [place] [address] Care Team Providers Care Laboratory Technician Name Role Phone Amna Urrutia Primary Care Provider [phone] Name, Everett ROSE Primary Care Provider [phone] Sahil Chen CNP Primary Care Provider [phone] Reason for Visit * Reason Onset Date Comments Appointment Request 09/08/2023 Encounter Details Date Type Department Care Team ([facility] Contact Info) Description 09/08/2023 Telephone [facility] MED[facility]INE [address] [place] [address] Amna Urrutia FNP [address] [place] [address] Appointment Request Social History Tobacco Use Types [...] to reschedule missed appt on 09/06 however senior copywriter was not able to offer apptdue to the provider did not have any availably documented in this encounter Plan of Treatment Upcoming Encounters Date Type Department Care Team (Late st Contact Info) Description 12/27/2024 11:15 AM EDT Office Visit [facility] [address] [place], [place] [phone] Sahil Chen CNP [address] [place] [address] documented as of this encounter Visit Diagnoses Not on filedocumented in this encounter Additional Health Concerns Assessment Noted Time PHQ-9 Depression Total Score: 16 023 8:52 AM EDT documented as of this encounter Care Teams Laboratory Technician Relationship Specialty Start Date End Date Amna Urrutia FNP [address] [place], [place] [phone] PCP - General Family Medicine 01/01/23 04/18/24 Everett Angulo MD [address] [place], [place] [phone] PCP - General Internal Medicine 04/19/24 10/08/24 Sahil Chen CNP [address] [place] [address] [phone] PCP - General Family Medicine 10/09/24 Chris Pack Jr Solar Lab TechnicianMedicine Assistant 09/04/24 documented as of this encounter
--- OUTSIDE RECORDS SUMMARY | 2024-11-27 16:06 | XMS_ITS | Encounter Summary ---
Author Organization [employer] Address [address] [place] [address] Care Team Providers Care Accounting Associate Name Role Phone Amna Urrutia Primary Care Provider [phone] Name, Everett ROSE Primary Care Provider [phone] Sahil Chen CNP Primary Care Provider [phone] Reason for Visit * Reason Comments Med Refill Encounter Details Date Type Department Care Team ([facility] st Contact Info) Description 09/11/2023 Refill [facility] [address] [place], [place] [phone] Amna Urrutia FNP [address] [place] [address] Type 1 diabetes mellitus with hyperglycemia ([facility]) Social History Tobacco Use Types Packs/Day Years [...] Description 12/27/2024 11:15 AM EDT Office Visit [facility] [address] [place] [address] Sahil Chen CNP [address] [place] [address] documented as of this encounter Visit Diagnoses Diagnosis Type 1 diabetes mellitus with hyperglycemia (CMS/HCC) documented in this encounter Additional Health Concerns Assessment Noted Time PHQ-9 Depression Total Score: 16 023 8:52 AM EDT documented as of this encounter Care Teams Accounting Associate Relationship Specialty Start Date End Date Amna Urrutia FNP [address] [place] [address] PCP - General Family Medicine 01/01/23 04/18/24 Everett Angulo MD [address] [place] [address] PCP - General Internal Medicine 04/19/24 10/08/24 Sahil Chen CNP [address] [place] [address] PCP - General Family Medicine 10/09/24 Chris Pack Jr Audio Visual Aids DirectorFamily Dinner Service Specialist 09/04/24 documented as of this encounter
--- OUTSIDE RECORDS SUMMARY | 2024-11-27 16:06 | XMS_ITS | Encounter Summary ---
Author Organization [employer] Address [address] 7t [place] [address] Care Team Providers Care Cold Water Machine Operator Name Role Phone Name, Everett ROSE Primary Care Provider [phone] Sahil Chen CNP Primary Care Provider [phone] Encounter Details Date Type Department Care Team (Late st Contact Info) Description 04/21/2024 Orders Only [facility] [address] [place], [place] [phone] Amna Urrutia FNP [address] [place], [place] [phone] Social History Tobacco Use Types Packs/Day Years [...] Description 12/27/2024 11:15 AM EDT Office Visit [facility] MED[facility]INE [address] [place] [address] Sahil Chen CNP [address] [place] [address] documented as of this encounter Visit Diagnoses Not on filedocumented in this encounter Additional Health Concerns Assessment Noted Time PHQ-9 Depression Total Score: 20 024 2:42 PM EDT documented as of this encounter Care Teams Cold Water Machine Operator Relationship Specialty Start Date End Date Name, MD Everett [address] [place] [address] PCP - General Internal Medicine 04/19/24 10/08/24 Sahil Chen CNP [address] [place] [address] PCP - General Family Medicine 10/09/24 Chris Pack Jr Multicultural InternshipStation Air Traffic Control Specialist 09/04/24 documented as of this encounter
--- OUTSIDE RECORDS SUMMARY | 2024-11-27 16:06 | XMS_ITS | Encounter Summary ---
Author Organization [employer] Address [address] [place] [address] Care Team Providers Care Mosaic Tiler Name Role Phone Amna Urrutia Primary Care Provider [phone] Name, Everett ROSE Primary Care Provider [phone] Sahil Chen CNP Primary Care Provider [phone] Reason for Visit * Reason Onset Date Comments Med Refill 09/27/2023 Encounter Details Date Type Department Care Team (Late st Contact Info) Description 09/27/2023 Refill [facility] [address] [place], [place] [phone] Amna Urrutia FNP [address] [place] [address] Type 1 diabetes mellitus with hyperglycemia ([facility]/HCC) Social History Tobacco Use Types Packs/Day Years [...] Description 12/27/2024 11:15 AM EDT Office Visit [facility] [address] [place] [address] Sahil Chen CNP [address] [place] [address] documented as of this encounter Visit Diagnoses Diagnosis Type 1 diabetes mellitus with hyperglycemia (CMS/HCC) documented in this encounter Additional Health Concerns Assessment Noted Time PHQ-9 Depression Total Score: 16 023 8:52 AM EDT documented as of this encounter Care Teams Mosaic Tiler Relationship Specialty Start Date End Date Amna Urrutia FNP [address] [place] [address] PCP - General Family Medicine 01/01/23 04/18/24 Everett Angulo MD [address] [place] [address] PCP - General Internal Medicine 04/19/24 10/08/24 Sahil Chen CNP [address] [place] [address] PCP - General Family Medicine 10/09/24 Chris Pack Jr L D RnFiscal Services Manager 09/04/24 documented as of this encounter
--- OUTSIDE RECORDS SUMMARY | 2024-11-27 16:06 | XMS_ITS | Encounter Summary ---
Author Organization [employer] Address [address] [facility] [address] [facility] [address] [facility] 7t [place] [address] Care Team Providers Care Fence Machine Operator Name Role Phone Amna Urrutia Primary Care Provider [phone] Name, Everett ROSE Primary Care Provider [phone] Sahil Chen CNP Primary Care Provider [phone] Reason for Visit * Reason Onset Date Comments Nurse Triage 05/30/2023 Encounter Details Date Type Department Care Team ([facility] st Contact Info) Description 05/30/2023 Telephone [facility] MED[facility]INE [address] [place] [address] Amna Urrutia FNP [address] [place] [address] Nurse Triage Social History Tobacco Use Types [...] obtain discharge summary for patient seen at [facility] ED 05/29/23 following head injury at work. Scheduled for follow up below Future Appointments Date Time Provider Department Center 05/31/2023 11:30 AM Denice Rubin MD [facility] * Telephone Encounter - Marline Vega RN - 05/30/2023 1:27 PM EDT Call to Bradford Torres, reports having been seen at [facility] ED 05/29 due to concussion that occurred [...] Center 05/31/2023 11:30 AM Denice Rubin MD [facility] Video visit offer not recorded [...] and states is still in pain ( press writer was un able to take all details information due to call hanging up ) . Patient advised will forward to triage nursefor follow up. documented in this encounter Plan of Treatment Upcoming Encounters Date Type Department Care Team (Late st Contact Info) Description 12/27/2024 11:15 AM EDT Office Visit [facility] MEDICINE [address] [place] [address] Sahil Chen CNP [address] [place] [address] documented as of this encounter Visit Diagnoses Not on filedocumented in this encounter Additional Health Concerns Assessment Noted Time PHQ-9 Depression Total Score: 16 023 8:52 AM EDT documented as of this encounter Care Teams Fence Machine Operator Relationship Specialty Start Date End Date Amna Urrutia FNP [address] [place] [address] PCP - General Family Medicine 01/01/23 04/18/24 Everett Angulo MD [address] [place] [address] [phone] PCP - General Internal Medicine 04/19/24 10/08/24 Sahil Chen CNP [address] [place] [address] PCP - General Family Medicine 10/09/24 Chris Pack Jr Light Bulb ReplacerMilitary Source Operations Specialist 09/04/24 documented as of this encounter
--- OUTSIDE RECORDS SUMMARY | 2024-11-27 16:06 | XMS_ITS | Encounter Summary ---
Author Organization [employer] Address [address] 7[address] [place] [address] Care Team Providers Care Medical Administrative Technician Name Role Phone Name, Everett ROSE Primary Care Provider [phone] Sahil Chen CNP Primary Care Provider [phone] Reason for Visit * Reason Comments Med Refill Encounter Details Date Type Department Care Team (Late st Contact Info) Description 05/03/2024 Refill [facility] [address] [place], [place] [phone] Amna Urrutia FNP [address] [place] [address] Type 1 diabetes mellitus with hyperglycemia (CMS/MUSC [...] Description 12/27/2024 11:15 AM EDT Office Visit [facility]INE [address] [place] [address] Sahil Chen CNP [address] [place] [address] documented as of this encounter Visit Diagnoses Diagnosis Type 1 diabetes mellitus with hyperglycemia (CMS/HCC) documented in this encounter Additional Health Concerns Assessment Noted Time PHQ-9 Depression Total Score: 20 024 2:42 PM EDT documented as of this encounter Care Teams Medical Administrative Technician Relationship Specialty Start Date End Date Name, MD Everett [address] [place] [address] PCP - General Internal Medicine 04/19/24 10/08/24 Sahil Chen CNP [address] [place] [address] PCP - General Family Medicine 10/09/24 Chris Pack Jr Videogame DesignerRoller Coaster Engineer 09/04/24 documented as of this encounter
--- OUTSIDE RECORDS SUMMARY | 2024-11-27 16:06 | XMS_ITS | Encounter Summary ---
Author Organization [employer] Address [address] [facility] [address] 7t [place] [address] Care Team Providers Care General Freight Agent Name Role Phone Amna Urrutia Primary Care Provider [phone] Adele, Everett ROSE Primary Care Provider [phone] Sahil Chen CNP Primary Care Provider [phone] Reason for Visit * Reason Comments Med Refill Encounter Details Date Type Department Care Team ([facility] st Contact Info) Description 08/29/2023 Refill [facility] [address] [place], [place] [phone] Carlos Alberto Villavicencio MD 230 [place], [place] [phone] Type 1 diabetes mellitus with hyperglycemia (CMS/HCC) [...] Description 12/27/2024 11:15 AM EDT Office Visit [facility] [address] [place] [address] Sahil Chen CNP 230 [place] [address] documented as of this encounter Visit Diagnoses Diagnosis Type 1 diabetes mellitus with hyperglycemia (CMS/HCC) documented in this encounter Additional Health Concerns Assessment Noted Time PHQ-9 Depression Total Score: 16 023 8:52 AM EDT documented as of this encounter Care Teams General Freight Agent Relationship Specialty Start Date End Date Amna Urrutia FNP [address] [place] [address] PCP - General Family Medicine 01/01/23 04/18/24 Everett Angulo MD [address] [place] [address] PCP - General Internal Medicine 04/19/24 10/08/24 Sahil Chen CNP [address] [place] [address] PCP - General Family Medicine 10/09/24 Chris Pack Jr Airline Managerial SupervisorPermaculture Contractor 09/04/24 documented as of this encounter
--- OUTSIDE RECORDS SUMMARY | 2024-11-27 16:07 | XMS_ITS | Clinical Summary ---
Author Organization [facility] it Address [address] [place] [address] Care Team Providers Care Gyroscope Technician Name Role Phone Unavailable Primary Care Provider [...] - 2023-2 5 season) 2024 Influenza Vaccine (Season Ended) 2025 HIB Vaccines Aged Out No longer eligi [...] age to complete this topic Meningococcal B Vaccine Aged Out No l onger eligible based on patient's age to complete [...]
--- OUTSIDE RECORDS SUMMARY | 2024-11-27 16:07 | XMS_ITS | Encounter Summary ---
Author Organization [employer] Address [address] [facility] [address] [place] [address] Care Team Providers Care Ballaster Name Role Phone Amna Urrutia Primary Care Provider [phone] Name, Everett ROSE Primary Care Provider [phone] Sahil Chen CNP Primary Care Provider [phone] Reason for Visit * Reason Onset Date Comments Med Refill 07/28/2023 Encounter Details Date Type Department Care Team (Late st Contact Info) Description 07/28/2023 Refill [facility] MED[facility]INE [address] [place] [address] Amna Urrutia FNP [address] [place] [address] Social History Tobacco Use Types Packs/Day Years [...] Description 12/27/2024 11:15 AM EDT Office Visit [facility]INE [address] [place] [address] Sahil Chen CNP 230 [place] [address] documented as of this encounter Visit Diagnoses Not on filedocumented in this encounter Additional Health Concerns Assessment Noted Time PHQ-9 Depression Total Score: 16 023 8:52 AM EDT documented as of this encounter Care Teams Ballaster Relationship Specialty Start Date End Date Amna Urrutia FNP [address] [place] [address] PCP - General Family Medicine 01/01/23 04/18/24 Everett Angulo MD [address] [place] [address] PCP - General Internal Medicine 04/19/24 10/08/24 Sahil Chen CNP [address] [place] [address] [phone] PCP - General Family Medicine 10/09/24 Chris Pack Jr Glass WasherParking Lot Laborer 09/04/24 documented as of this encounter
--- OUTSIDE RECORDS SUMMARY | 2024-11-27 16:07 | XMS_ITS | Encounter Summary ---
Author Organization [employer] Address [address] [facility] [place] [address] Care Team Providers Care Lab Engineer Name Role Phone Amna Urrutia Primary Care Provider [phone] Adele, Everett ROSE Primary Care Provider [phone] Sahil Chen CNP Primary Care Provider [phone] Encounter Details Date Type Department Care Team (Late st Contact Info) Description 06/28/[address] [facility] [address] [place], [place] [phone] Santos Mueller MD 230 [place] [address] Social History Tobacco Use Types Packs/Day Years [...] Description 12/27/2024 11:15 AM EDT Office Visit [facility] [address] [place] [address] Sahil Chen CNP 230 [place] [address] documented as of this encounter Visit Diagnoses Not on filedocumented in this encounter Additional Health Concerns Assessment Noted Time PHQ-9 Depression Total Score: 16 023 8:52 AM EDT documented as of this encounter Care Teams Lab Engineer Relationship Specialty Start Date End Date Amna Urrutia FNP [address] [place] [address] PCP - General Family Medicine 01/01/23 04/18/24 Everett Angulo MD [address] [place] [address] PCP - General Internal Medicine 04/19/24 10/08/24 Sahil Chen CNP [address] [place] [address] PCP - General Family Medicine 10/09/24 Chris Pack Jr Property Disposal ManagerCoater Hand 09/04/24 documented as of this encounter
--- OUTSIDE RECORDS SUMMARY | 2024-11-27 16:07 | XMS_ITS | Encounter Summary ---
Author Organization [employer] Address [address] [place] [address] 7 [place] [address] Care Team Providers Care Grounds/Maintenance Specialist Name Role Phone Amna Urrutia Primary Care Provider [phone] Name, Everett ROSE Primary Care Provider [phone] Sahil Chen CNP Primary Care Provider [phone] Reason for Visit * Reason Onset Date Comments Med Refill 04/28/2023 Encounter Details Date Type Department Care Team (Late st Contact Info) Description 04/28/2023 Refill [facility] [place] [facility] MEDICINE [address] [place] [address] [phone] Sandra Leal MD [address] [place] [address] [phone] Social History Tobacco Use Types Packs/Day Years [...] Description 12/27/2024 11:15 AM EDT Office Visit [facility] [place] [facility] [address] [place] [address] [phone] Sahil Chen CNP [address] [place] [address] documented as of this encounter Visit Diagnoses Not on filedocumented in this encounter Additional Health Concerns Assessment Noted Time PHQ-9 Depression Total Score: 16 023 8:52 AM EDT documented as of this encounter Care Teams Grounds/Maintenance Specialist Relationship Specialty Start Date End Date Amna Urrutia FNP 230 [place], [place] [phone] PCP - General Family Medicine 01/01/23 04/18/24 Name, MD Everett 230 [place], [place] [phone] PCP - General Internal Medicine 04/19/24 10/08/24 Sahil Chen CNP [address] [place], [place] [phone] PCP - General Family Medicine 10/09/24 Chris Pack Jr Entry Level ChemistMonogram Maker 09/04/24 documented as of this encounter
--- OUTSIDE RECORDS SUMMARY | 2024-11-27 16:07 | XMS_ITS | Patient Health Record ---
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
--- OUTSIDE RECORDS SUMMARY | 2024-11-27 16:07 | XMS_ITS | Encounter Summary ---
Author Organization [employer] Address [address] [facility] [address] [place] [address] Care Team Providers Care Slag Skimmer Name Role Phone Amna Urrutia Primary Care Provider [phone] Adele, Everett ROSE Primary Care Provider [phone] Sahil Chen CNP Primary Care Provider [phone] Reason for Visit * Reason Onset Date Comments Med Refill 07/28/2023 Encounter Details Date Type Department Care Team (Late st Contact Info) Description 07/28/2023 Refill [facility] MED[facility] 230 [place], [place] [phone] Denice Rubin MD 230 [place] [address] Social History Tobacco Use Types Packs/Day Years [...] Description 12/27/2024 11:15 AM EDT Office Visit [facility] [address] [place] [address] Sahil Chen CNP 230 [place] [address] documented as of this encounter Visit Diagnoses Not on filedocumented in this encounter Additional Health Concerns Assessment Noted Time PHQ-9 Depression Total Score: 16 023 8:52 AM EDT documented as of this encounter Care Teams Slag Skimmer Relationship Specialty Start Date End Date Amna Urrutia FNP [address] [place] [address] PCP - General Family Medicine 01/01/23 04/18/24 Everett Angulo MD [address] [place] [address] PCP - General Internal Medicine 04/19/24 10/08/24 Sahil Chen CNP [address] [place] [address] [phone] PCP - General Family Medicine 10/09/24 Chris Pack Jr Container Washer MachineReference Services Head 09/04/24 documented as of this encounter
--- OUTSIDE RECORDS SUMMARY | 2024-11-27 16:07 | XMS_ITS | Clinical Summary ---
Author Organization [facility], Address [address] [place] [address] [place] [address] Phone Care Team Providers Care Jig Filler Name Role Phone Santos Mueller MD Primary Care Provider [phone] Allergies Active Allergy Reactions Criticality Noted Date [...] Date Type 1 diabetes mellitus 07/31/2023 023 Social History Tobacco Use Types Packs/Day Years [...] Exam 07/28/2023 Diabetes: Visual Foot Exam 07/28/2023 Diabetes: Hemoglobin A1C 05/28/2024 02/26/2024 Influenza Vaccine (Season Ended) 2025 06/08/20 16 Insurance MEDICAID [place] Care Teams Jig Filler Relationship Specialty Start Date End Date Santos Mueller MD [address] [place] [phone] PCP - General Emergency Medicine 07/28/23
--- OUTSIDE RECORDS SUMMARY | 2024-11-27 16:07 | XMS_ITS | Encounter Summary ---
Author Organization [employer] Address [address] [facility] 7t [place] [address] Care Team Providers Care Wireworker Name Role Phone Amna Urrutia Primary Care Provider [phone] Name, Everett ROSE Primary Care Provider [phone] Sahil Chen CNP Primary Care Provider [phone] Encounter Details Date Type Department Care Team ([facility] Contact Info) Description 01/17/2023 Orders Only [facility] MEDICINE [address] [place] [phone] Amna Urrutia FNP [address] [place] [address] Social History Tobacco Use Types Packs/Day Years [...] Upcoming Encounters Date Type Department Care Team ([facility] Contact Info) Description 12/27/2024 11:15 AM EDT Office Visit [facility] [address] [place] [address] Sahil Chen CNP 230 [place] [address] documented as of this encounter Visit Diagnoses Not on filedocumented in this encounter Additional Health Concerns Assessment Noted Time PHQ-9 Depression Total Score: 7 01/07/20 23 9:10 AM EDT documented as of this encounter Care Teams Wireworker Relationship Specialty Start Date End Date Amna Urrutia FNP [address] [place] [address] PCP - General Family Medicine 01/01/23 04/18/24 Name, MD Everett [address] [place] [address] PCP - General Internal Medicine 04/19/24 10/08/24 Sahil Chen CNP [address] [place] [address] PCP - General Family Medicine 10/09/24 Chris Pack Jr Handle And Vent Machine OperatorSenior Marketing Engineer 09/04/24 documented as of this encounter
--- OUTSIDE RECORDS SUMMARY | 2024-11-27 16:07 | XMS_ITS | Encounter Summary ---
Author Organization [facility] Address [address] [place] [address] Phone Care Team Providers Care Cocoa Mill Operator Name Role Phone Santos Mueller MD Primary Care Provider [phone] Encounter Details Date Type Department Care Team (Late st Contact Info) Description 08/05/2024 Documentation Only [facility], [address] [place] [address] Jessica Sprague [address] [place] [address] Social History Tobacco Use Types [...] on filedocumented in this encounter Care Teams Cocoa Mill Operator Relationship Specialty Start Date End Date Santos Mueller MD [address] [place] [address] PCP - General Emergency Medicine 07/28/23 documented as of this encounter
--- OUTSIDE RECORDS SUMMARY | 2024-11-27 16:07 | XMS_ITS | Clinical Summary ---
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 scrotum ?? Accession Number(s): [id number] ? cc: Name,Everett ROSE; Sedrick Grady MD ? CLINICAL HISTORY: testicular pain , no swelling ? US Scrotum with Doppler ? Comparison: US/MI/SR - US SCROTUM - 08/01/24 23:48 EST [...] ? DD/ 18 ? TD/TT: 09/09/242218 ? Syrup Mixer: ? Procedure Note Geovanna, Image - 09/09/2024 [place] [address] Ultrasound Report Signed Patient: Bradford Torres JMR#: [id number] : 1995Acct:[id number] Age/Sex: 29 / MADM Date: 09/09/24 Loc: HO.ED Attending Dr: Ordering Physician: Sedrick Grady MD Date of Service: 09/09/24 Procedure(s): US scrotum Accession Number(s): [id number] cc: Name,Everett ROSE; Sedrick Grady MD CLINICAL HISTORY: testicular pain , no swelling US Scrotum with Doppler Comparison: US/MI/SR - US SCROTUM - 08/01/24 23:48 EST [...] in OV> 09/09/242220 DD/ 18 TD/TT: 09/09/242218 Syrup Mixer: us [facility] External Provider IMG US PROCEDURES Final Result * Lactic Acid (09/09/2024 8:47 PM EST) [facility] Lactic Acid 0.8 0.5 - 2.0 mmol/L [facility] 09/09/2024 8:47 PM EST 09/09/2024 8:53 PM EST Narrative [facility] - 09/09/2024 9:09 PM EST NOT ON ICE Generic External Data Provider LAB BLOOD ORDERAB LES Final Result [facility] [address] [place] [phone] * (ABNORMAL) CBC auto differential (09/09/2024 8:17 PM EST) Only the most recent of2 resultswithin the time period is included. Pathologist [facility] White Blood Count 7.7 4.8 - 10.8 X10*3/uL [facility] Red Blood Count 4.72 4.60 - 5.80 X10*6/uL [facility] Hemoglobin 12.4(L) 14.0 - 18.0 g/dl [facility] Hematocrit 36.7(L) 42.0 - 52.0 % [facility] Mean Corpuscular Volume 77.8(L) 80.0 - 98.0 fL [facility] Mean Corpuscular Hemoglobin 26.3(L) 27.0 - 33.0 pg [facility] Mean Corpuscular HGB Conc 33.8 31.0 - 36.0 g/dl [facility] Red Cell Distribution Width 13.9 11.0 - 16.0 % [facility] Platelet Count 236 160 - 400 X10*3/uL [facility] Mean Platelet Volume 9.4 9.4 - 12.4 fL [facility] Neutrophils Percent Auto 71.7 45 - 73 % [facility] Imm Gran Pct Auto 0.1 0.0 - 0.4 % [facility] Lymphocytes Percent Auto 15.8(L) 20 - 40 % [facility] Monocytes Percent Auto 10.3 2 - 11 % [facility] Eosinophils Percent Auto 1.6 0 - 4 % [facility] Basophils Percent Auto 0.5 0 - 2 % [facility] NRBC Pct Auto 0.0 0.0 - 0.2 /100WBC [facility] Neutrophils Absolute Auto 5.5 2.0 - 8.3 x10*3/uL [facility] Imm Gran Abs Auto 0.01 0.00 - 0.03 X10*3/uL [facility] Lymphocytes Absolute Auto 1.2 1.2 - 4.9 X10*3/uL [facility] Monocytes Absolute Auto 0.8 0.1 - 1.2 X10*3/uL [facility] Eosinophils Absolute Auto 0.1 0.0 - 0.4 X10*3/uL [facility] Basophils Absolute Auto 0.0 0.0 - 0.2 X10*3/uL [facility] NRBC Abs Auto 0.000 0.0 - 0.012 X10*3/uL [facility] 09/09/2024 8:17 PM EST 09/09/2024 8:19 PM EST us Generic External Data Provider LAB BLOOD ORDERAB LES Final Result [facility] [address] [place] [phone] * (ABNORMAL) Comprehensive Metabolic Panel (09/09/2024 8:17 PM EST) Only the most recent of2 resultswithin the time period is included. Sodium 136 135 - 145 mmol/L [facility] Potassium 3.9 3.3 - 5.1 mmol/L [facility] Chloride 104 96 - 108 mmol/L [facility] Carbon Dioxide 21(L) 22 - 29 mmol/L [facility] Anion Gap 15 12 - 20 [facility] Urea Nitrogen (BUN) 15 9 - 16 mg/dL [facility] Creatinine, Serum 0.60 0.5 - 1.4 mg/dL [facility] Creatinine Clr Calc Pharmacy 178.3 [facility] Comment:eGFR (calculated fro m the MDRD study equation) and eCrCl(calculated from the Cockcroft-Gault equation) are based ondifferent parameters and may not yield comparable results.If eCrCl result is absurd, please check patient'sheight/weight. Estimated Glomerular Filt Rate >60 [facility] Comment:Chronic Kidney Disea se: Estimated GFR < 60 mL/min/1.17t4Suiczt Kidney Disease: Estimated GFR < 15 mL/min/1.73m2 Glucose 112 60 - 115 mg/dL [facility] Calcium 8.6 8.4 - 10.2 mg/dL [facility] Bilirubin, Total 0.4 0.0 - 1.0 mg/dL [facility] Aspartate Amino Transferase 18 5 - 37 U/L [facility] Alanine Aminotransferase 12 0 - 40 U/L [facility] Total Protein 7.4 6.5 - 8.0 g/dL [facility] Albumin Level 4.2 3.5 - 5.0 g/dL [facility] Alkaline Phosphatase 64 39 - 117 U/L [facility] 09/09/2024 8:17 PM EST 09/09/2024 8:19 PM EST us Generic External Data Provider LAB BLOOD ORDERAB LES Final Result Performing Organization Address [facility] Co de Phone Number [facility] [address] [place] [phone] * Urinalysis w/reflex microscopic (09/09/2024 6:42 PM EST) Color Urine Yellow [facility] Appearance Urine Clear [facility] PH >=9.0 5.0 - 9.0 [facility] Glucose Urine UA Negative Negative mg/dL [facility] Urine Blood Negative Negative [facility] Specific Rentz - Urine 1.025 1.005 - 1.025 [facility] Urine Protein Negative Neg-Trace mg/dL [facility] Urine Ketones 15 Negative mg/dL [facility] Nitrite Urine Negative Negative [facility] Leukocyte Esterase Urine Negative Negative [facility] 09/09/2024 6:42 PM EST 09/09/2024 6:44 PM EST Narrative [facility] - 09/09/2024 6:59 PM EST Urine, Clean Catch us Generic External Data Provider LAB URINE ORDERAB LES Final Result Performing Organization Address [facility] de Phone Number [facility] [address] [place] [phone] * (ABNORMAL) Glucose, Whole Blood (09/01/2024 6:08 PM EST) Only the most recent of2 resultswithin the time period is included. Glucose, Whole Blood 151(H) 60 - 115 mg/dL [facility] Comment:METER #: [id number] 09/01/2024 6:08 PM EST 09/01/2024 6:15 PM EST us Generic External Data Provider LAB BLOOD ORDERAB LES Final Result Performing Organization Address [facility] Co de Phone Number [facility] [address] [place] [phone] * CT Abdomen Pelvis w/ Contrast (09/01/2024 10:50 AM EST) Anatomical Region Laterality Modality Body, Pelvis, Abdomen Computed T omography 09/01/2024 10:5 0 AM EST Narrative 09/01/2024 6:48 PM EST ? [facility] ?[address] ?[place] [address] ? CT Scan Report ? Signed ? Patient: Bradford Torres ?MR#: [id number] ?? [id number] ? : 1995 ?Acct:[id number] ? Age/Sex: 29 / M ?ADM Date: 09/01/24 ? Loc: HO.ED ? Attending Dr: ? Ordering Physician: Ulises Dejesus MD ?? Date of Service: 09/01/24 ?? Procedure(s): CT abdomen pelvis w IV con ?? Accession Number(s): [id number] ? cc: Ulises Dejesus MD; [facility] ? Report Number: ?? [id number]: Total DLP = ??378.00 mGy-cm ? CLINICAL [...] DD/ 1050 ? TD/TT: 09/01/24 1050 ? Syrup Mixer: ? Procedure Note Aamir Austin - 09/01/[address] [address] [address] Scan Report Signed Patient: Bradford Torres JMR#: [id number] : 1995Acct:[id number] Age/Sex: 29 / MADM Date: 09/01/24 Loc: HO.ED Attending Dr: Ordering Physician: Ulises Dejesus MD Date of Service: 09/01/24 Procedure(s): CT abdomen pelvis w IV con Accession Number(s): [id number] cc: Ulises Dejesus MD; [facility] Report Number: [id number]: Total DLP = 378.00 mGy-cm CLINICAL HISTORY: [...] 09/01/24 1849 DD/ 1050 TD/TT: 09/01/24 1050 Syrup Mixer: [facility] External Provider IMG CT PROCEDURES Edited Result - Final * (ABNORMAL) Beta-Hydroxybutyrate (09/01/2024 9:30 AM EST) Beta-Hydroxybu tyrate 1.28(H) 0.02 - 0.27 mmol/L [facility] 09/01/2024 9:30 AM EST 09/01/2024 9:34 AM EST Generic External Data Provider LAB BLOOD ORDERAB LES Final Result [facility] [address] [place] [address] [phone] * C-reactive Protein (09/01/2024 9:30 AM EST) C Reactive Protein <0.10 < or = 0.50 mg/dL [facility] 09/01/2024 9:30 AM EST 09/01/2024 9:34 AM EST us Generic External Data Provider LAB BLOOD ORDERAB LES Final Result Performing Organization Address [facility] Co de Phone Number [facility] [address] [place] [phone] * Hepatitis C Antibody with Reflex to HCV, RNA, Quantitative, Real-Time PCR (11/15/2023 1:28 PM EDT) Hepatitis C Antibody Nonreactive Nonreactive [facility] Comment:Antibodies to HCV no t detected; does not exclude early acuteHCV infection. Blood Venous blood specimen / Unknown 11/15/2023 1:28 PM EDT 11/15/2023 4:04 PM EDT Amna Urrutia [employer]ER [employer] LAB BLOOD ORDERABLES Final Resu lt Performing Organization Address [facility] Co de Phone Number [facility] [address] [place] [phone] * Lipid Panel, Standard (11/15/2023 1:28 PM EDT) Triglycerides 56 <150 mg/dL [facility] Comment:Desirable Triglyceri de: less than 150 mg/dLBorderline High Triglyceride 150-199 mg/dLHigh Triglyceride: 200-499 mg/dLVery High Triglyceride: greater than or equal to 5OO mg/dL Cholesterol 145 <200 mg/dL [facility] Comment:Desirable Cholestero l: less than 200 mg/dLBorderline High Cholesterol: 200-239 mg/dLHigh Cholesterol: greater than 239 mg/dL LDL Cholesterol Calculated 84 <100 mg/dL [facility] Comment:Desirable LDL: less than 100 mg/dLNear Optimal/Above Optimal LDL: 110- 129 mg/dLBorderline High LDL: 130-159 mg/dLHigh LDL: 160-189 mg/dLVery High LDL: greater than or equal to 190 mg/dL HDL Cholesterol 50 >40 mg/dL [facility] Comment:Desirable HDL: great er than 40 mg/dL Note: This HDL assay may give artificially low results in patients with liver disease. Blood Venous blood specimen / Unknown 11/15/2023 1:28 PM EDT 11/15/2023 4:04 PM EDT Result [facility] LAB BLOOD ORDERABLES Final Resu lt [facility] [address] [place] [phone] * HIV-1 RNA, Quantitative, Real-Time PCR with Reflex to Genotype (RTI, PI, Integrase) (01/06/2023 10:25 AM EDT) Pathologist [facility] HIV 1 RNA, QN PCR NOT DETECTED copies/mL [facility], HIV 1 RNA, QN PCR NOT DETECTED Log copies/mL [facility], Comment: REFERENCE RANGE: NOT DETECTED copies/mL ?NOT DETECTED ??Log copies/mL This test was performed using Real-Time Polymerase Chain Reaction. Reportable range is 20 to 10,000,000 copies/mL (1.30-7.00 Log copies/mL). 01/06/2023 10:2 5 AM EDT 01/06/2023 10:26 AM EDT Narrative [facility] - 01/11/2023 1:53 AM EDT FASTING:NO SPECIMEN COLLECTED AT PROVIDER OFFICE. FASTING: NO [facility] LAB BLOOD ORDERABLES Final Resu lt [facility] [address], [place] [address] [facility], [address] [place] [address] from Last 3 Months or Most Recently Relevant to Health Maintenance Insurance [facility] C3 HSN FULL DENTAL [place] Care Teams Postdoctoral Scholar Relationship Specialty Start Date End Date Sahil Chen CNP [address] [place] [address] PCP - General Family Medicine 10/09/24 Chris Pack Jr Scheduling ClerkAttic Fans Mechanic 09/04/24
--- OUTSIDE RECORDS SUMMARY | 2024-11-27 16:07 | XMS_ITS | Encounter Summary ---
Author Organization [employer] Address [address] [place] [address] Care Team Providers Care Paramedic Supervisor Name Role Phone Amna Urrutia Primary Care Provider [phone] Adele, Everett ROSE Primary Care Provider [phone] Sahil Chen CNP Primary Care Provider [phone] Reason for Visit * Reason Onset Date Comments reaction to medication 10/24/2022 Encounter Details Date Type Department Care Team ([facility] st Contact Info) Description 10/24/2022 Telephone [facility] [address] [place] [address] Marycruz Oseguera DDS [address] [place] [address] reaction to medication Social History Tobacco Use [...] Miscellaneous Notes * Telephone Encounter - Rachna Cahtman - 10/26/2022 10:42 AM EST Attempted to [...] Description 12/27/2024 11:15 AM EDT Office Visit [facility] [address] [place] [address] [phone] Sahil Chen CNP [address] [place] [address] documented as of this encounter Visit Diagnoses Not on filedocumented in this encounter Care Teams Paramedic Supervisor Relationship Specialty Start Date End Date Amna Urrutia FNP [address] [place] [phone] PCP - General Family Medicine 01/01/23 04/18/24 Everett Angulo MD [address] [place] [phone] PCP - General Internal Medicine 04/19/24 10/08/24 Sahil Chen CNP [address] [place] [address] PCP - General Family Medicine 10/09/24 Chris Pack Jr Lead NurseJackhammer Splitter Operator 09/04/24 documented as of this encounter
--- OUTSIDE RECORDS SUMMARY | 2024-11-27 16:07 | XMS_ITS | Encounter Summary ---
Author Organization [employer] Address [address] [place] [address] [address] [place] [address] Care Team Providers Care Rn Clinical Coordinator Name Role Phone Amna Urrutia Primary Care Provider [phone] Name, Everett ROSE Primary Care Provider Sahil Chen CNP Primary Care Provider [phone] Reason for Visit * Reason Onset Date Comments Med Refill 04/29/2023 Encounter Details Date Type Department Care Team (Late st Contact Info) Description 04/29/2023 Refill [facility] [address] [place] [address] [phone] Sandra Leal MD [address] [place] [address] [phone] Social History Tobacco Use Types Packs/Day Years [...] Description 12/27/2024 11:15 AM EDT Office Visit [facility] [address] [place] [address] [phone] Sahil Chen CNP [address] [place] [address] documented as of this encounter Visit Diagnoses Not on filedocumented in this encounter Additional Health Concerns Assessment Noted Time PHQ-9 Depression Total Score: 16 023 8:52 AM EDT documented as of this encounter Care Teams Rn Clinical Coordinator Relationship Specialty Start Date End Date Amna Urrutia FNP [address] [place], [place] [phone] PCP - General Family Medicine 01/01/23 04/18/24 Name, MD Everett [address] [place], [place] [phone] PCP - General Internal Medicine 04/19/24 10/08/24 Sahil Chen CNP [address] [place], [place] [phone] PCP - General Family Medicine 10/09/24 Chris Pack Jr Bracelet FormerCategory Planner 09/04/24 documented as of this encounter
--- OUTSIDE RECORDS SUMMARY | 2024-11-27 16:07 | XMS_ITS | Encounter Summary ---
Author Organization [facility] Address [address] [place] [address] Phone Care Team Providers Care Clinical Application Manager Name Role Phone Santos Mueller MD Primary Care Provider [phone] Encounter Details Date Type Department Care Team (Late st Contact Info) Description 07/28/2023 Documentation Only [facility] [place], [address] [place] [address] Santos Mueller MD [address] [place] [address] Social History Tobacco Use Types [...] on filedocumented in this encounter Care Teams Clinical Application Manager Relationship Specialty Start Date End Date Santos Mueller MD [address] [place] [address] PCP - General Emergency Medicine 07/28/23 documented as of this encounter
--- OUTSIDE RECORDS SUMMARY | 2024-11-27 16:07 | XMS_ITS | Encounter Summary ---
Author Organization [employer] Address [address] [place] [address] [address] [place] [address] Care Team Providers Care Oil Field Tester Name Role Phone Amna Urrutia Primary Care Provider [phone] Name, Everett ROSE Primary Care Provider [phone] Sahil Chen CNP Primary Care Provider [phone] Reason for Visit * Reason Onset Date Comments Med Refill 05/01/2023 Encounter Details Date Type Department Care Team (Late st Contact Info) Description 05/01/2023 Refill [facility] [address] [place] [address] [phone] Sandra Leal MD [address] [place] [address] [phone] Social History Tobacco Use Types Packs/Day Years [...] Description 12/27/2024 11:15 AM EDT Office Visit [facility] [address] [place] [address] [phone] Sahil Chen CNP [address] [place] [address] documented as of this encounter Visit Diagnoses Not on filedocumented in this encounter Additional Health Concerns Assessment Noted Time PHQ-9 Depression Total Score: 16 023 8:52 AM EDT documented as of this encounter Care Teams Oil Field Tester Relationship Specialty Start Date End Date Amna Urrutia FNP [address] [place], [place] [phone] PCP - General Family Medicine 01/01/23 04/18/24 Name, MD Everett [address] [place], [place] [phone] PCP - General Internal Medicine 04/19/24 10/08/24 Sahil Chen CNP [address] [place], [place] [phone] PCP - General Family Medicine 10/09/24 Chris Pack Jr Hoop Machine OperatorPatternmaker Grader 09/04/24 documented as of this encounter
--- OUTSIDE RECORDS SUMMARY | 2024-11-27 16:07 | XMS_ITS | Encounter Summary ---
Author Organization [facility] Address [address] [place] [address] Phone Care Team Providers Care Dental Sales Representative Name Role Phone Santos Mueller MD Primary Care Provider [phone] Encounter Details Date Type Department Care Team (Late st Contact Info) Description 08/05/2024 Documentation Only [facility] [place], [address] [place] [place] [address] Jessica Sprague [address] [place] [address] Social History Tobacco Use Types [...] filedocumented in this encounter Care Teams Dental Sales Representative Relationship Specialty Start Date End Date Santos Mueller MD [address] [place] [address] PCP - General Emergency Medicine 07/28/23 documented as of this encounter
--- OUTSIDE RECORDS SUMMARY | 2024-11-27 16:07 | XMS_ITS | Encounter Summary ---
Author Organization [employer] Address [address] [facility] 7t [place] [address] Care Team Providers Care Sales Record Clerk Name Role Phone Amna Urrutia Primary Care Provider [phone] Name, Everett ROSE Primary Care Provider [phone] Sahil Chen CNP Primary Care Provider [phone] Reason for Visit * Reason Onset Date Comments Med Refill 07/17/2023 Encounter Details Date Type Department Care Team (Late st Contact Info) Description 07/17/2023 Refill [facility] [address] [place] [address] Amna Urrutia FNP [address] [place] [address] Social History Tobacco Use Types Packs/Day Years [...] Description 12/27/2024 11:15 AM EDT Office Visit [facility] [address] [place] [phone] Sahil Chen CNP [address] [place] [address] documented as of this encounter Visit Diagnoses Not on filedocumented in this encounter Additional Health Concerns Assessment Noted Time PHQ-9 Depression Total Score: 16 023 8:52 AM EDT documented as of this encounter Care Teams Sales Record Clerk Relationship Specialty Start Date End Date Amna Urrutia FNP [address] [place] [address] PCP - General Family Medicine 01/01/23 04/18/24 Everett Angulo MD [address] [place] [address] PCP - General Internal Medicine 04/19/24 10/08/24 Sahil Chen CNP [address] [place] [address] [phone] PCP - General Family Medicine 10/09/24 Chris Pack Jr Bulldozer/Loader/Compactor/ScraperCopy And Print Associate 09/04/24 documented as of this encounter
--- OUTSIDE RECORDS SUMMARY | 2024-11-27 16:07 | XMS_ITS | Encounter Summary ---
Author Organization [employer] Address [address] [facility] [address] [place] [address] Care Team Providers Care Group Insurance Specialist Name Role Phone Amna Urrutia Primary Care Provider [phone] Name, Everett ROSE Primary Care Provider [phone] Sahil Chen CNP Primary Care Provider [phone] Reason for Visit * Reason Onset Date Comments Med Refill 05/03/2023 Encounter Details Date Type Department Care Team (Late st Contact Info) Description 05/03/2023 Refill [facility] [address] [place] [address] Amna Urrutia FNP [address] [place] [address] Type 1 diabetes mellitus with hyperglycemia ([facility]/HCC) Social History Tobacco Use Types Packs/Day Years [...] Description 12/27/2024 11:15 AM EDT Office Visit [facility] [address] [place] [address] Sahil Chen CNP [address] [place] [address] documented as of this encounter Visit Diagnoses Diagnosis Type 1 diabetes mellitus with hyperglycemia (CMS/HCC) documented in this encounter Additional Health Concerns Assessment Noted Time PHQ-9 Depression Total Score: 16 023 8:52 AM EDT documented as of this encounter Care Teams Group Insurance Specialist Relationship Specialty Start Date End Date Amna Urrutia FNP [address] [place] [address] PCP - General Family Medicine 01/01/23 04/18/24 Name, MD Everett [address] [place] [address] PCP - General Internal Medicine 04/19/24 10/08/24 Sahil Chen CNP [address] [place] [address] PCP - General Family Medicine 10/09/24 Chris Pack Jr Geothermal Powerplant SupervisorWater Resource Specialist 09/04/24 documented as of this encounter
--- OUTSIDE RECORDS SUMMARY | 2024-11-27 16:07 | XMS_ITS | Encounter Summary ---
Author Organization [employer] Address [address] [facility] 7t [place] [address] Care Team Providers Care Wellness Spa Manager Name Role Phone Amna Urrutia Primary Care Provider [phone] Name, Everett ROSE Primary Care Provider [phone] Sahil Chen CNP Primary Care Provider [phone] Encounter Details Date Type Department Care Team (Late Contact Info) Description 10/21/2022 Abstract [facility] [address] [place] [address] Marycruz Oseguera DDS [address] [place] [address] Social History Tobacco Use Types Packs/Day Years [...] Description 12/27/2024 11:15 AM EDT Office Visit [facility] [address] [place] [address] Sahil Chen CNP 230 [place] [address] documented as of this encounter Visit Diagnoses Not on filedocumented in this encounter Care Teams Wellness Spa Manager Relationship Specialty Start Date End Date Amna Ururtia FNP [address] [place], [place] [phone] PCP - General Family Medicine 01/01/23 04/18/24 Name, MD Everett 230 [place], [place] [phone] PCP - General Internal Medicine 04/19/24 10/08/24 Sahil Chen CNP 230 [place], [place] [phone] PCP - General Family Medicine 10/09/24 Chris Pack Jr Biomedical Electronics TechnicianOrder Make Up Clerk 09/04/24 documented as of this encounter
--- OUTSIDE RECORDS SUMMARY | 2024-11-27 16:07 | XMS_ITS | Encounter Summary ---
Author Organization [employer] Address [address] [facility] [address] 7t [place] [address] Care Team Providers Care College Instructor Name Role Phone Gustavo Sahil SERA Primary Care Provider [phone] Encounter Details Date Type Department Care Team (Latest Contact Info) Description 11/27/2024 Travel Social History Tobacco Use Types Packs/Day Years [...] housing situation today? I have augusta dillon 11/27/[address] you li [...] Description 12/27/2024 11:15 AM EDT Office Visit [facility] 230 [place] [address] Sahil Chen CNP 230 [place] [address] documented as of this encounter Visit Diagnoses Not on filedocumented in this encounter Additional Health Concerns Assessment Noted Time PHQ-9 Depression Total Score: 19 025 3:09 PM EDT documented as of this encounter Care Teams College Instructor Relationship Specialty Start Date End Date Sahil Chen CNP 230 [place] [address] PCP - General Family Medicine 10/09/24 Chris Pack Jr Business Development ExecutiveNews Technical Director 09/04/24 documented as of this encounter
--- OUTSIDE RECORDS SUMMARY | 2024-11-27 16:07 | XMS_ITS | Encounter Summary ---
Author Organization [employer] Address 75 [facility] 7t [place] [address] Care Team Providers Care Fulling Machine Operator Name Role Phone Amna Urrutia Primary Care Provider [phone] Name, Everett ROSE Primary Care Provider [phone] Sahil Chen CNP Primary Care Provider [phone] Reason for Visit * Reason Onset Date Comments Med Refill 05/01/2023 Encounter Details Date Type Department Care Team (Late st Contact Info) Description 05/01/2023 Refill [facility] [address] [place] [address] Lakshmi Womack FNP [address] [place] [address] Type 1 diabetes mellitus with hyperglycemia ([facility]) Social History Tobacco Use Types [...] 11:15 AM EDT Office Visit [facility] [address] [place] [address] Sahil Chen CNP 230 [place] [address] documented as of this encounter Visit Diagnoses Diagnosis Type 1 diabetes mellitus with hyperglycemia (CMS/HCC) documented in this encounter Additional Health Concerns Assessment Noted Time PHQ-9 Depression Total Score: 16 023 8:52 AM EDT documented as of this encounter Care Teams Fulling Machine Operator Relationship Specialty Start Date End Date Amna Urrutia FNP [address] [place] [address] PCP - General Family Medicine 01/01/23 04/18/24 Name, MD Everett 230 [place] [address] PCP - General Internal Medicine 04/19/24 10/08/24 Sahil Chen CNP [address] [place] [address] PCP - General Family Medicine 10/09/24 Chris Pack Jr Cobbler SoleLineman Service Or Work Dispatcher 09/04/24 documented as of this encounter
--- OUTSIDE RECORDS SUMMARY | 2024-11-27 16:07 | XMS_ITS | Encounter Summary ---
Author Organization [employer] Address 75 [facility] 7t [place] [address] Care Team Providers Care Key Person Name Role Phone Amna Urrutia Primary Care Provider [phone] Adele, Everett ROSE Primary Care Provider [phone] Sahil Chen CNP Primary Care Provider [phone] Reason for Visit * Reason Onset Date Comments Med Refill 07/15/2023 Encounter Details Date Type Department Care Team (Late st Contact Info) Description 07/15/2023 Refill [facility] 230 [place] [address] Sandra Leal MD 230 [place] [address] Social History Tobacco Use Types Packs/Day Years [...] Description 12/27/2024 11:15 AM EDT Office Visit [facility] [address] [place] [address] Sahil Chen CNP 230 [place] [address] documented as of this encounter Visit Diagnoses Not on filedocumented in this encounter Additional Health Concerns Assessment Noted Time PHQ-9 Depression Total Score: 16 023 8:52 AM EDT documented as of this encounter Care Teams Key Person Relationship Specialty Start Date End Date Amna Urrutia FNP [address] [place] [address] PCP - General Family Medicine 01/01/23 04/18/24 Everett Angulo MD [address] [place] [address] PCP - General Internal Medicine 04/19/24 10/08/24 Sahil Chen CNP [address] [place] [address] PCP - General Family Medicine 10/09/24 Chris Pack Jr Billet GrinderMulti Purpose Machine Operator 09/04/24 documented as of this encounter
--- OUTSIDE RECORDS SUMMARY | 2024-11-27 16:07 | XMS_ITS | Encounter Summary ---
Author Organization [facility] Address [address] [place] [address] Phone Care Team Providers Care Shear Grinder Operator Helper Name Role Phone Santos Mueller MD Primary Care Provider [phone] Encounter Details Date Type Department Care Team (Late st Contact Info) Description 08/05/2024 Documentation Only [facility], [address] [place] [address] Jessica Sprague [address] [place] [address] Social History Tobacco Use Types [...] on filedocumented in this encounter Care Teams Shear Grinder Operator Helper Relationship Specialty Start Date End Date Santos Mueller MD 230 [place] [address] PCP - General Emergency Medicine 07/28/23 documented as of this encounter
--- OUTSIDE RECORDS SUMMARY | 2024-11-27 16:07 | XMS_ITS | Encounter Summary ---
Author Organization [employer] Address 75 [facility] 7t [place] [address] Care Team Providers Care Aviation Warfare Systems Operator Name Role Phone Amna Urrutia Primary Care Provider [phone] Adele, Everett ROSE Primary Care Provider [phone] Sahil Chen CNP Primary Care Provider [phone] Reason for Visit * Reason Onset Date Comments Med Refill 07/17/2023 Encounter Details Date Type Department Care Team (Late st Contact Info) Description 07/17/2023 Refill [facility] 230 [place] [address] Sandra Leal MD 230 [place] [address] Social History Tobacco Use Types Packs/Day Years [...] Description 12/27/2024 11:15 AM EDT Office Visit [facility] MED[facility] [address] [place] [address] Sahil Chen CNP 230 [place] [address] documented as of this encounter Visit Diagnoses Not on filedocumented in this encounter Additional Health Concerns Assessment Noted Time PHQ-9 Depression Total Score: 16 023 8:52 AM EDT documented as of this encounter Care Teams Aviation Warfare Systems Operator Relationship Specialty Start Date End Date Amna Urrutia FNP [address] [place] [address] PCP - General Family Medicine 01/01/23 04/18/24 Everett Angulo MD [address] [place] [address] PCP - General Internal Medicine 04/19/24 10/08/24 Sahil Chen CNP [address] [place] [address] PCP - General Family Medicine 10/09/24 Chris Pack Jr Weigher ProductionDev Ops Engineer 09/04/24 documented as of this encounter
--- OUTSIDE RECORDS SUMMARY | 2024-11-27 16:07 | XMS_ITS | Encounter Summary ---
Author Organization [employer] Address 75 [facility] 7t [place] [address] Care Team Providers Care Street Openings Inspector Name Role Phone Amna Urrutia Primary Care Provider [phone] Name, Everett ROSE Primary Care Provider [phone] Sahil Chen CNP Primary Care Provider [phone] Reason for Visit * Reason Onset Date Comments Reschedule 02/14/2024 Encounter Details Date Type Department Care Team ([facility] st Contact Info) Description 02/14/2024 Telephone [facility] [address] [place] [address] Amna Urrutia FNP [address] [place] [address] Reschedule Social History Tobacco Use Types Packs/Day [...] to reschedule 02/13 follow up extended appointment. Blasting Miner attempted to reschedule but no availability. Please contact pt at [phone] documented in this encounter Plan of Treatment Upcoming Encounters Date Type Department Care Team (Late st Contact Info) Description 12/27/2024 11:15 AM EDT Office Visit [facility] [address] [place] [address] Sahil Chen CNP [address] [place] [address] documented as of this encounter Visit Diagnoses Not on filedocumented in this encounter Additional Health Concerns Assessment Noted Time PHQ-9 Depression Total Score: 10 024 1:01 PM EDT documented as of this encounter Care Teams Street Openings Inspector Relationship Specialty Start Date End Date Amna Urrutia FNP 230 [place] [address] PCP - General Family Medicine 01/01/23 04/18/24 Name, MD Everett 230 [place], [place] [phone] PCP - General Internal Medicine 04/19/24 10/08/24 Sahil Chen CNP [address] [place], [place] [phone] PCP - General Family Medicine 10/09/24 Chris Pack Jr Materials Handling Equipment OperatorFreelance Web Designer 09/04/24 documented as of this encounter
--- OUTSIDE RECORDS SUMMARY | 2024-11-27 16:07 | XMS_ITS | Encounter Summary ---
Author Organization [employer] Address 75 [facility] 7t [place] [address] Care Team Providers Care Miner Operator Name Role Phone Sahil Chen CNP Primary Care Provider [phone] Reason for Visit * Reason Comments Transfer Pt Encounter Details Date Type Department Care Team (Latest Contact Info) Description 11/27/2024 2:45 PM EDT Office Visit [facility] 230 [place], [place] [phone] Sahil Chen CNP 230 [place], [place] [phone] Insomnia, unspecified type (Primary Dx); Type 1 [...] (147 lb) 11/27/2024 2:57 PM EDT Height - - Body Mass Index 19.94 11/13/2024 10:19 AM EDT documented in this encounter Plan of Treatment Upcoming Encounters Date Type Department Care Team (Late st Contact Info) Description 12/27/2024 11:15 AM EDT Office Visit [facility] [address] [place], [place] [phone] Sahil Chen CNP [address] [place], [place] [phone] Scheduled Orders Name Type Priority Associated Diagnoses Orde r Schedule Albumin, Random Urine W/Creatinine Lab Routine Type 1 diabetes mellitus with hyperglycemia (CMS/HCC) Expected: 11/27/2024 (Approximate), Expires: 11/26/2025 Lipid Panel, Standard Lab Routine Type 1 diabetes mellitus with hyperglycemia (CMS/HCC) Expected: 11/27/2024 (Approximate), Expires: 11/26/2025 POCT Urinalysis Point of Care Testing Routine Type 1 diabetes mellitus with hyperglycemia ([facility]/HCC) Ordered: 11/27/2024 documented as of this encounter Procedures Procedure Name Priority Date/Time Associated Diagnosis Comments POCT GLYCATED HEMOGLOBIN, TOTAL Routine 11/27/2024 3:07 PM EDT Type 1 diabetes mellitus with hyperglycemia ([facility]) POCT GLUCOSE Routine 11/27/2024 2:58 PM EDT Type 1 diabetes mellitus with hyperglycemia ([facility]) documented in this encounter Results * (ABNORMAL) POCT HGB A1C (11/27/2024 3:07 PM EDT) Pathologist [facility] Hemoglobin A1C 8.7(A) 4.0 - 6.0 % QC Media Lot # [id number] Lot# Expiration Date , Blood 11/27/2024 3:07 PM EDT [facility] POINT OF CARE TEST ENTER/ EDIT ORDERABLES Final Result * (ABNORMAL) POCT Glucose (11/27/2024 2:58 PM EDT) [facility] Glucose Blood, POC 383(A) 60 - 200 mg/dL QC Media Lot # [id number] Lot# Expiration Date ,025 Blood Capillary blood specimen / Unknown 11/27/2024 2:58 PM EDT [facility] POINT OF CARE TEST ENTER/ EDIT ORDERABLES Final Result documented in this encounter Visit Diagnoses Diagnosis Insomnia, unspecified type- Primary Type 1 diabetes mellitus with hyperglycemia ([facility]) documented in this encounter Additional Health Concerns Assessment Noted Time PHQ-9 Depression Total Score: 19 025 3:09 PM EDT documented as of this encounter Care Teams Miner Operator Relationship Specialty Start Date End Date Sahil Chen CNP [address] [place] [address] PCP - General Family Medicine 10/09/24 Chris Pack Jr Entry Level ManagerScale Expert 09/04/24 documented as of this encounter
--- OUTSIDE RECORDS SUMMARY | 2024-11-27 16:07 | XMS_ITS | Encounter Summary ---
Author Organization [email or web address] Address [address] [facility] [address] 7t [place] [address] Care Team Providers Care Wood Casket Maker Name Role Phone Amna Urrutia Primary Care Provider [phone] Name, Everett ROSE Primary Care Provider Sahil Chen CNP Primary Care Provider [phone] Reason for Visit * Reason Comments Med Refill Encounter Details Date Type Department Care Team ([facility] st Contact Info) Description 05/30/2023 Refill [facility] [address] [place], [place] [phone] Amna Urrutia FNP [address] [place] [address] Social History Tobacco Use Types Packs/Day Years [...] Description 12/27/2024 11:15 AM EDT Office Visit [facility] [address] [place] [address] Sahil Chen CNP 230 [place] [address] documented as of this encounter Visit Diagnoses Not on filedocumented in this encounter Additional Health Concerns Assessment Noted Time PHQ-9 Depression Total Score: 16 023 8:52 AM EDT documented as of this encounter Care Teams Wood Casket Maker Relationship Specialty Start Date End Date Amna Urrutia FNP [address] [place] [address] PCP - General Family Medicine 01/01/23 04/18/24 Everett Angulo MD [address] [place] [address] PCP - General Internal Medicine 04/19/24 10/08/24 Sahil Chen CNP [address] [place] [address] [phone] PCP - General Family Medicine 10/09/24 Chris Pack Jr Supervisor Sewer MaintenanceCopy Preparer 09/04/24 documented as of this encounter
--- OUTSIDE RECORDS SUMMARY | 2024-11-27 16:07 | XMS_ITS | Encounter Summary ---
Author Organization [employer] Address [address] [facility] [address] 7t [place] [address] Care Team Providers Care Slitting And Shipping Supervisor Name Role Phone Amna Urrutia Primary Care Provider [phone] Adele, Everett ROSE Primary Care Provider Sahil Chen CNP Primary Care Provider [phone] Reason for Visit * Reason Onset Date Comments Med Refill 07/15/2023 Encounter Details Date Type Department Care Team (Late st Contact Info) Description 07/15/2023 Refill [facility] [address] [place], [place] [phone] Amna Urrutia FNP [address] [place] [address] Social History Tobacco Use Types Packs/Day Years [...] Description 12/27/2024 11:15 AM EDT Office Visit [facility] [address] [place] [address] Sahil Chen CNP 230 [place] [address] documented as of this encounter Visit Diagnoses Not on filedocumented in this encounter Additional Health Concerns Assessment Noted Time PHQ-9 Depression Total Score: 16 023 8:52 AM EDT documented as of this encounter Care Teams Slitting And Shipping Supervisor Relationship Specialty Start Date End Date Amna Urrutia FNP [address] [place] [address] PCP - General Family Medicine 01/01/23 04/18/24 Everett Angulo MD [address] [place] [address] PCP - General Internal Medicine 04/19/24 10/08/24 Sahil Chen CNP [address] [place] [address] PCP - General Family Medicine 10/09/24 Chris Pack Jr Cable Installer Repairer HelperTermite Renewal Inspector 09/04/24 documented as of this encounter
--- OUTSIDE RECORDS SUMMARY | 2024-11-27 16:07 | XMS_ITS | Encounter Summary ---
Author Organization [employer] Address [address] [place] [address] 7 [place] [address] Care Team Providers Care Overhauler Name Role Phone Amna Urrutia Primary Care Provider [phone] Name, Everett ROSE Primary Care Provider [phone] Sahil Chen CNP Primary Care Provider [phone] Reason for Visit * Reason Onset Date Comments Med Refill 03/21/2023 Encounter Details Date Type Department Care Team (Late Contact Info) Description 03/21/2023 Refill [facility] MED[facility]INE [address] [place] [address] [phone] Amna Urrutia FNP 230 [place], [place] [phone] Social History Tobacco Use Types Packs/Day Years [...] Department Care Team (Late Contact Info) Description 12/27/2024 11:15 AM EDT Office Visit [facility] [address] [place] [address] Sahil Chen CNP [address] [place], [place] [phone] documented as of this encounter Visit Diagnoses Not on filedocumented in this encounter Additional Health Concerns Assessment Noted Time PHQ-9 Depression Total Score: 7 01/07/20 23 9:10 AM EDT documented as of this encounter Care Teams Overhauler Relationship Specialty Start Date End Date Amna Urrutia FNP 230 [place], [place] [phone] PCP - General Family Medicine 01/01/23 04/18/24 Everett Angulo MD 230 [place], [place] [phone] PCP - General Internal Medicine 04/19/24 10/08/24 Sahil Chen CNP 230 [place], [place] [phone] PCP - General Family Medicine 10/09/24 Chris Pack Jr Mouse BreederHealth Safety Instructor 09/04/24 documented as of this encounter
--- OUTSIDE RECORDS SUMMARY | 2024-11-27 16:07 | XMS_ITS | Encounter Summary ---
Author Organization [employer] Address 75 [facility] 7t [place] [address] Care Team Providers Care Change Management Consultant Name Role Phone Amna Urrutia Primary Care Provider [phone] Name, Everett ROSE Primary Care Provider [phone] Sahil Chen CNP Primary Care Provider [phone] Reason for Visit * Reason Onset Date Comments Med Refill 05/30/2023 Encounter Details Date Type Department Care Team (Late st Contact Info) Description 05/30/[address] [facility] MEDICINE [address] [place] [address] Amna Urrutia FNP [address] [place] [address] Social History Tobacco Use Types Packs/Day Years [...] 12/27/2024 11:15 AM EDT Office Visit [facility] MEDICINE [address] [place] [address] Sahil Chen CNP 230 [place] [address] documented as of this encounter Visit Diagnoses Not on filedocumented in this encounter Additional Health Concerns Assessment Noted Time PHQ-9 Depression Total Score: 16 023 8:52 AM EDT documented as of this encounter Care Teams Change Management Consultant Relationship Specialty Start Date End Date Amna Urrutia FNP [address] [place] [address] PCP - General Family Medicine 01/01/23 04/18/24 Everett Angulo MD [address] [place] [address] PCP - General Internal Medicine 04/19/24 10/08/24 Sahil Chen CNP [address] [place] [address] [phone] PCP - General Family Medicine 10/09/24 Chris Pack Jr Film CleanerFreight Traffic Consultant 09/04/24 documented as of this encounter
== END 2024-11-27 14:19 | disposition home or self-care (01) ==
LOC: HO.HUSH 13:52
PROVIDERS: PCP Internal Medicine Geriatric Medicine; Visit Provider Nurse Practitioner Family
DX: N45.1 Epididymitis (principal); Z13.9 Encounter for screening, unspecified
CPT/HCPCS: 99203

== ENCOUNTER → 2024-11-27 13:52 | Outpatient (BNVA) | payer MEDICAID, SELFPAY | PROVIDERS: PCP Internal Medicine Geriatric Medicine; Visit Provider Nurse Practitioner Family | DX: N45.1 Epididymitis (principal) | CPT/HCPCS: 81003; 99212 ==

== ENCOUNTER 2024-12-02 19:33 | Emergency (ER) | payer MEDICAID, SELFPAY ==
--- NOTE | ~2024-12-02 | XR_ITS ---
CLINICAL HISTORY: pain to L great toe s p injury 4 view left great toe Comparison: None Findings: There is a subtle lucency through the proximal medial and of the distal phalanx of the great toe extending to the articular surface. There is also bony spurring at the medial proximal aspect of the distal phalanx. Joint spaces are preserved. No erosions. No radiopaque foreign body. IMPRESSION: Findings suspicious for nondisplaced intra-articular oblique fracture of the distal phalanx of the great toe. This document has been electronically signed by: You Haro MD on 12/02/2024 20:58:27
[2024-12-02 19:36] VITALS: BP 129/86; PULSE 95; RESP 16; TEMP 37; O2SAT 100; BMI 19.8
--- OUTSIDE RECORDS SUMMARY | 2024-12-02 20:47 | XMS_ITS | Encounter Summary ---
Author Organization [employer] Address [address] [facility] [address] 7t [place] [address] Care Team Providers Care Yard Caller Name Role Phone Amna Urrutia Primary Care Provider [phone] Name, Everett ROSE Primary Care Provider [phone] Sahil Chen CNP Primary Care Provider [phone] Reason for Visit * Reason Onset Date Comments Med Refill 09/27/2023 Encounter Details Date Type Department Care Team (Late st Contact Info) Description 09/27/[address] [facility] MEDICINE 230 [place], [place] [phone] Amna Urrutia FNP [address] [place] [address] Type 1 diabetes mellitus with hyperglycemia ([facility]/HCC) Social History Tobacco Use Types Packs/Day Years [...] Description 12/27/2024 11:15 AM EDT Office Visit [facility] MEDICINE [address] [place] [address] Sahil Chen CNP [address] [place] [address] documented as of this encounter Visit Diagnoses Diagnosis Type 1 diabetes mellitus with hyperglycemia (CMS/HCC) documented in this encounter Additional Health Concerns Assessment Noted Time PHQ-9 Depression Total Score: 16 023 8:52 AM EDT documented as of this encounter Care Teams Yard Caller Relationship Specialty Start Date End Date Amna Urrutia FNP [address] [place] [address] PCP - General Family Medicine 01/01/23 04/18/24 Everett Angulo MD [address] [place] [address] PCP - General Internal Medicine 04/19/24 10/08/24 Sahil Chen CNP [address] [place] [address] PCP - General Family Medicine 10/09/24 Chris Pack Jr Diesel MachinistShank Sorter 09/04/24 documented as of this encounter
--- OUTSIDE RECORDS SUMMARY | 2024-12-02 20:47 | XMS_ITS | Encounter Summary ---
Author Organization [employer] Address [address] [facility] [address] 7t [place] [address] Care Team Providers Care Seismology Teacher Name Role Phone Amna Urrutia Primary Care Provider [phone] Name, Everett ROSE Primary Care Provider [phone] Sahil Chen CNP Primary Care Provider [phone] Reason for Visit * Reason Onset Date Comments Med Refill 07/17/2023 Encounter Details Date Type Department Care Team (Late st Contact Info) Description 07/17/2023 Refill [facility] MEDICINE [address] [place] [address] Amna Urrutia FNP [address] [place] [address] Social History Tobacco Use Types Packs/Day Years [...] Description 12/27/2024 11:15 AM EDT Office Visit [facility] MED[facility]INE [address] [place] [address] Sahil Chen CNP 230 [place] [address] documented as of this encounter Visit Diagnoses Not on filedocumented in this encounter Additional Health Concerns Assessment Noted Time PHQ-9 Depression Total Score: 16 023 8:52 AM EDT documented as of this encounter Care Teams Seismology Teacher Relationship Specialty Start Date End Date Amna Urrutia FNP [address] [place] [address] PCP - General Family Medicine 01/01/23 04/18/24 Everett Angulo MD [address] [place] [address] PCP - General Internal Medicine 04/19/24 10/08/24 Sahil Chen CNP [address] [place] [address] [phone] PCP - General Family Medicine 10/09/24 Chris Pack Jr Bull BuckerSonar Watchstander 09/04/24 documented as of this encounter
--- OUTSIDE RECORDS SUMMARY | 2024-12-02 20:47 | XMS_ITS | Encounter Summary ---
Author Organization [facility] Address [address] [place] [address] Phone Care Team Providers Care Manufacturer Name Role Phone Santos Mueller MD Primary Care Provider [phone] Encounter Details Date Type Department Care Team (Late st Contact Info) Description 07/28/2023 Documentation Only [facility], [address] [place] [address] Santos Mueller MD [address] [place] [address] Social History Tobacco Use Types [...] on filedocumented in this encounter Care Teams Manufacturer Relationship Specialty Start Date End Date Santos Mueller MD [address] [place] [address] PCP - General Emergency Medicine 07/28/23 documented as of this encounter
--- OUTSIDE RECORDS SUMMARY | 2024-12-02 20:47 | XMS_ITS | Clinical Summary ---
Author Organization [facility], Address [address] [place] [address] [place] [address] Phone Care Team Providers Care Manager Information Name Role Phone Santos Mueller MD Primary Care Provider [phone] Allergies Active Allergy Reactions Criticality Noted Date [...] Health Maintenance Due Date Last Done Comments Hepatitis B Vaccine (1 of 3 - 19+ 3-dose series) 02/07 Pneumococcal Vaccine: Peds ( 0 to 5 Years) and At-Risk Patients (6 to 49 Years) (1 of 2 - PCV) 02/07/2015 Diabetes: Ophthalmology Exam 07/28/2023 Diabetes: Pedal Pulse Checked 07/28/2023 Diabetes: Sensory Foot Exam 07/28/2023 Diabetes: Visual Foot Exam 07/28/2023 Diabetes: Hemoglobin A1C 05/28/2024 02/26/2024 Influenza Vaccine (Season Ended) 2025 06/08/20 16 Insurance Medicaid [place] Care Teams Manager Information Relationship Specialty Start Date End Date Santos Mueller MD [address] [place] [phone] PCP - General Emergency Medicine 07/28/23
--- OUTSIDE RECORDS SUMMARY | 2024-12-02 20:47 | XMS_ITS | Encounter Summary ---
Author Organization [employer] Address [address] [facility] [address] 7t [place] [address] Care Team Providers Care Psychological Anthropologist Name Role Phone Amna Urrutia Primary Care Provider [phone] Name, Everett ROSE Primary Care Provider [phone] Sahil Chen CNP Primary Care Provider [phone] Reason for Visit * Reason Comments Med Refill Encounter Details Date Type Department Care Team ([facility] st Contact Info) Description 10/04/2023 Refill [facility] [address] [place], [place] [phone] Amna Urrutia FNP [address] [place] [address] Type 1 diabetes mellitus with hyperglycemia ([facility]) Social History Tobacco Use Types [...] 11:15 AM EDT Office Visit [facility] [address] [place] [address] Sahil Chen CNP 230 [place] [address] documented as of this encounter Visit Diagnoses Diagnosis Type 1 diabetes mellitus with hyperglycemia (CMS/HCC) documented in this encounter Additional Health Concerns Assessment Noted Time PHQ-9 Depression Total Score: 16 023 8:52 AM EDT documented as of this encounter Care Teams Psychological Anthropologist Relationship Specialty Start Date End Date Amna Urrutia FNP [address] [place] [address] PCP - General Family Medicine 01/01/23 04/18/24 Everett Angulo MD [address] [place] [address] PCP - General Internal Medicine 04/19/24 10/08/24 Sahil Chen CNP [address] [place] [address] PCP - General Family Medicine 10/09/24 Chris Pack Jr Partnership Development ManagerLive Out Nanny 09/04/24 documented as of this encounter
--- OUTSIDE RECORDS SUMMARY | 2024-12-02 20:47 | XMS_ITS | Encounter Summary ---
Author Organization [employer] Address [address] [facility] [address] 7t [place] [address] Care Team Providers Care Transportation Clerk Name Role Phone Amna Urrutia Primary Care Provider [phone] Name, Everett ROSE Primary Care Provider [phone] Sahil Chen CNP Primary Care Provider [phone] Reason for Visit * Reason Comments Med Refill Encounter Details Date Type Department Care Team ([facility] st Contact Info) Description 09/08/2023 Refill [facility] [address] [place], [place] [phone] Amna Urrutia FNP [address] [place] [address] Type 1 diabetes mellitus with hyperglycemia ([facility]) Social History Tobacco Use Types [...] 11:15 AM EDT Office Visit [facility] [address] [place] [address] Sahil Chen CNP 230 [place] [address] documented as of this encounter Visit Diagnoses Diagnosis Type 1 diabetes mellitus with hyperglycemia (CMS/HCC) documented in this encounter Additional Health Concerns Assessment Noted Time PHQ-9 Depression Total Score: 16 023 8:52 AM EDT documented as of this encounter Care Teams Transportation Clerk Relationship Specialty Start Date End Date Amna Urrutia FNP [address] [place] [address] PCP - General Family Medicine 01/01/23 04/18/24 Everett Angulo MD [address] [place] [address] PCP - General Internal Medicine 04/19/24 10/08/24 Sahil Chen CNP [address] [place] [address] PCP - General Family Medicine 10/09/24 Chris Pack Jr Phlebotomy SpecialistDirector Of Religious Activities 09/04/24 documented as of this encounter
--- OUTSIDE RECORDS SUMMARY | 2024-12-02 20:47 | XMS_ITS | Encounter Summary ---
Author Organization [employer] Address [address] 7t [place] [address] Care Team Providers Care Dental Appliance Mechanic Name Role Phone Name, Everett ROSE Primary Care Provider [phone] Sahil Chen CNP Primary Care Provider [phone] Encounter Details Date Type Department Care Team (Late st Contact Info) Description 04/21/2024 Orders Only [facility] [address] [place], [place] [phone] Amna Urrutia FNP 230 [place], [place] [phone] Social History Tobacco Use Types Packs/Day Years [...] Description 12/27/2024 11:15 AM EDT Office Visit [facility] MEDICINE [address] [place] [address] Sahil Chen CNP 230 [place] [address] documented as of this encounter Visit Diagnoses Not on filedocumented in this encounter Additional Health Concerns Assessment Noted Time PHQ-9 Depression Total Score: 20 024 2:42 PM EDT documented as of this encounter Care Teams Dental Appliance Mechanic Relationship Specialty Start Date End Date Name, MD Everett [address] [place] [address] PCP - General Internal Medicine 04/19/24 10/08/24 Sahil Chen CNP [address] [place] [address] PCP - General Family Medicine 10/09/24 Chris Pack Jr Concrete PointerCement Truck Driver 09/04/24 documented as of this encounter
--- OUTSIDE RECORDS SUMMARY | 2024-12-02 20:47 | XMS_ITS | Encounter Summary ---
Author Organization [employer] Address [address] 7t [place] [address] Care Team Providers Care Machinist Mechanic Name Role Phone Amna Urrutia Primary Care Provider [phone] Adele, Everett ROSE Primary Care Provider [phone] Sahil Chen CNP Primary Care Provider [phone] Encounter Details Date Type Department Care Team (Late st Contact Info) Description 06/28/2023 Orders Only [facility] 230 [place], [place] [phone] Santos Mueller MD 230 [place] [address] Social History Tobacco Use Types Packs/Day Years [...] Description 12/27/2024 11:15 AM EDT Office Visit [facility] 230 [place] [address] Sahil Chen CNP 230 [place] [address] documented as of this encounter Visit Diagnoses Not on filedocumented in this encounter Additional Health Concerns Assessment Noted Time PHQ-9 Depression Total Score: 16 023 8:52 AM EDT documented as of this encounter Care Teams Machinist Mechanic Relationship Specialty Start Date End Date Amna Urrutia FNP [address] [place] [address] PCP - General Family Medicine 01/01/23 04/18/24 Everett Angulo MD [address] [place] [address] PCP - General Internal Medicine 04/19/24 10/08/24 Sahil Chen CNP [address] [place] [address] PCP - General Family Medicine 10/09/24 Chris Pack Jr Rental Management TraineeSoftware Support Technician 09/04/24 documented as of this encounter
--- OUTSIDE RECORDS SUMMARY | 2024-12-02 20:47 | XMS_ITS | Encounter Summary ---
Author Organization [employer] Address [address] [facility] [facility] [address] 7t [place] [address] Care Team Providers Care Visual Journalist Name Role Phone Amna Urrutia Primary Care Provider [phone] Name, Everett ROSE Primary Care Provider [phone] Sahil Chen CNP Primary Care Provider [phone] Reason for Visit * Reason Comments Med Refill Encounter Details Date Type Department Care Team ([facility] st Contact Info) Description 05/30/2023 Refill [facility] 230 [place], [place] [phone] Amna Urrutia FNP 230 [place] [address] Social History Tobacco Use Types Packs/Day Years [...] [facility] [address] [place] [address] Sahil Chen CNP 230 [place] [address] documented as of this encounter Visit Diagnoses Not on filedocumented in this encounter Additional Health Concerns Assessment Noted Time PHQ-9 Depression Total Score: 16 023 8:52 AM EDT documented as of this encounter Care Teams Visual Journalist Relationship Specialty Start Date End Date Amna Urrutia FNP [address] [place] [address] PCP - General Family Medicine 01/01/23 04/18/24 Everett Angulo MD [address] [place] [address] PCP - General Internal Medicine 04/19/24 10/08/24 Sahil Chen CNP [address] [place] [address] [phone] PCP - General Family Medicine 10/09/24 Chris Pack Jr Fishing GuidePhysical Ther 09/04/24 documented as of this encounter
--- OUTSIDE RECORDS SUMMARY | 2024-12-02 20:47 | XMS_ITS | Encounter Summary ---
Author Organization [employer] Address [address] [facility] 7t [place] [address] Care Team Providers Care Executive Vice President And Chief Financial Officer Name Role Phone Amna Urrutia Primary Care Provider [phone] Name, Everett ROSE Primary Care Provider [phone] Sahil Chen CNP Primary Care Provider [phone] Reason for Visit * Reason Onset Date Comments Nurse Triage 05/30/2023 Encounter Details Date Type Department Care Team ([facility] st Contact Info) Description 05/30/2023 Telephone [facility] 230 [place] [address] Amna Urrutia FNP [address] [place] [address] Nurse Triage Social History Tobacco Use Types [...] obtain discharge summary for patient seen at [facility] 05/29/23 following head injury at work. Scheduled for follow up below Future Appointments Date Time Provider Department Center 05/31/2023 11:30 AM Denice Rubin MD [facility] * Telephone Encounter - Marline Vega RN - 05/30/2023 1:27 PM EDT Call to Bradford Torres, reports having been seen at [facility] 05/29 due to concussion that occurred [...] 11:30 AM Denice Rubin MD [facility] Video visit offer not recorded Positive Triage [...] and states is still in pain ( teletypewriter operator was un able to take all details information due to call hanging up ) . Patient advised will forward to triage nursefor follow up. documented in this encounter Plan of Treatment Upcoming Encounters Date Type Department Care Team (Late st Contact Info) Description 12/27/2024 11:15 AM EDT Office Visit [facility] 230 [place] [address] Sahil Chen CNP 230 [place] [address] documented as of this encounter Visit Diagnoses Not on filedocumented in this encounter Additional Health Concerns Assessment Noted Time PHQ-9 Depression Total Score: 16 023 8:52 AM EDT documented as of this encounter Care Teams Executive Vice President And Chief Financial Officer Relationship Specialty Start Date End Date Amna Urrutia FNP [address] [place] [address] PCP - General Family Medicine 01/01/23 04/18/24 Everett Angulo MD [address] [place] [address] [phone] PCP - General Internal Medicine 04/19/24 10/08/24 Sahil Chen CNP [address] [place] [address] PCP - General Family Medicine 10/09/24 Chris Pack Jr Auditing Control ClerkHigh School Band Director 09/04/24 documented as of this encounter
--- OUTSIDE RECORDS SUMMARY | 2024-12-02 20:47 | XMS_ITS | Encounter Summary ---
Author Organization [email or web address] Address [address] [facility] 7t [place] [address] Care Team Providers Care Meringuer Name Role Phone Amna Urrutia Primary Care Provider [phone] Name, Everett ROSE Primary Care Provider [phone] Sahil Chen CNP Primary Care Provider [phone] Reason for Visit * Reason Onset Date Comments Reschedule 02/14/2024 Encounter Details Date Type Department Care Team ([facility] st Contact Info) Description 02/14/2024 Telephone [facility] [address] [place] [address] Amna Urrutia FNP [address] [place] [address] Reschedule Social History Tobacco Use Types Packs/Day [...] to reschedule 02/13 follow up extended appointment. [employer] attempted to reschedule but no availability. Please contact pt at [phone] documented in this encounter Plan of Treatment Upcoming Encounters Date Type Department Care Team (Late st Contact Info) Description 12/27/2024 11:15 AM EDT Office Visit [facility] [address] [place] [address] Sahil Chen CNP 230 [place] [address] documented as of this encounter Visit Diagnoses Not on filedocumented in this encounter Additional Health Concerns Assessment Noted Time PHQ-9 Depression Total Score: 10 024 1:01 PM EDT documented as of this encounter Care Teams Meringuer Relationship Specialty Start Date End Date Amna Urrutia FNP 230 [place] [address] PCP - General Family Medicine 01/01/23 04/18/24 Name, MD Everett 230 [place], [place] [phone] PCP - General Internal Medicine 04/19/24 10/08/24 Sahil Chen CNP 230 [place], [place] [phone] PCP - General Family Medicine 10/09/24 Chris Pack Jr Candle PourerHead Of History 09/04/24 documented as of this encounter
--- OUTSIDE RECORDS SUMMARY | 2024-12-02 20:47 | XMS_ITS | Encounter Summary ---
Author Organization [employer] Address [address] [facility] [address] 7t [place] [address] Care Team Providers Care Tax Accountant Name Role Phone Amna Urrutia Primary Care Provider [phone] Adele, Everett ROSE Primary Care Provider [phone] Sahil Chen CNP Primary Care Provider [phone] Reason for Visit * Reason Onset Date Comments Med Refill 07/28/2023 Encounter Details Date Type Department Care Team (Late st Contact Info) Description 07/28/2023 Refill [facility]INE 230 [place], [place] [phone] Denice Rubin MD 230 [place] [address] Social History Tobacco Use Types Packs/Day Years [...] Description 12/27/2024 11:15 AM EDT Office Visit [facility] [address] [place] [address] Sahil Chen CNP 230 [place] [address] documented as of this encounter Visit Diagnoses Not on filedocumented in this encounter Additional Health Concerns Assessment Noted Time PHQ-9 Depression Total Score: 16 023 8:52 AM EDT documented as of this encounter Care Teams Tax Accountant Relationship Specialty Start Date End Date Amna Urrutia FNP [address] [place] [address] PCP - General Family Medicine 01/01/23 04/18/24 Everett Angulo MD [address] [place] [address] PCP - General Internal Medicine 04/19/24 10/08/24 Sahil Chen CNP [address] [place] [address] [phone] PCP - General Family Medicine 10/09/24 Chris Pack Jr Certified Scrub TechOffice Machines Sales Representative 09/04/24 documented as of this encounter
--- OUTSIDE RECORDS SUMMARY | 2024-12-02 20:47 | XMS_ITS | Encounter Summary ---
Author Organization [employer] Address [address] [facility] [address] [address] 7t [place] [address] Care Team Providers Care Lead Fabricator Name Role Phone Name, Everett ROSE Primary Care Provider [phone] Sahil Chen CNP Primary Care Provider [phone] Reason for Visit * Reason Comments Med Refill Encounter Details Date Type Department Care Team (Late st Contact Info) Description 05/03/2024 Refill [facility] 230 [place], [place] [phone] Amna Urrutia FNP 230 [place] [address] Type 1 diabetes mellitus with hyperglycemia (CMS/[facility]) Social History Tobacco Use Types Packs/Day Years [...] Description 12/27/2024 11:15 AM EDT Office Visit [facility] [address] [place] [address] Sahil Chen CNP 230 [place] [address] documented as of this encounter Visit Diagnoses Diagnosis Type 1 diabetes mellitus with hyperglycemia (CMS/HCC) documented in this encounter Additional Health Concerns Assessment Noted Time PHQ-9 Depression Total Score: 20 024 2:42 PM EDT documented as of this encounter Care Teams Lead Fabricator Relationship Specialty Start Date End Date Name, MD Everett [address] [place] [address] PCP - General Internal Medicine 04/19/24 10/08/24 Sahil Chen CNP [address] [place] [address] PCP - General Family Medicine 10/09/24 Chris Pack Jr General PediatricianSemiconductor Testing Group Leader 09/04/24 documented as of this encounter
--- OUTSIDE RECORDS SUMMARY | 2024-12-02 20:47 | XMS_ITS | Encounter Summary ---
Author Organization [employer] Address [address] 7t [place] [address] Care Team Providers Care Beam Worker Name Role Phone Amna Urrutia Primary Care Provider [phone] Name, Everett ROSE Primary Care Provider [phone] Sahil Chen CNP Primary Care Provider [phone] Reason for Visit * Reason Comments Med Refill Encounter Details Date Type Department Care Team ([facility] st Contact Info) Description 09/11/2023 Refill [facility] 230 [place], [place] [phone] Amna Urrutia FNP 230 [place] [address] Type 1 diabetes mellitus with hyperglycemia ([facility]) Social History [...] Description 12/27/2024 11:15 AM EDT Office Visit [facility]INE [address] [place] [address] Sahil Chen CNP 230 [place] [address] documented as of this encounter Visit Diagnoses Diagnosis Type 1 diabetes mellitus with hyperglycemia (CMS/HCC) documented in this encounter Additional Health Concerns Assessment Noted Time PHQ-9 Depression Total Score: 16 023 8:52 AM EDT documented as of this encounter Care Teams Beam Worker Relationship Specialty Start Date End Date Amna Urrutia FNP [address] [place] [address] PCP - General Family Medicine 01/01/23 04/18/24 Everett Angulo MD [address] [place] [address] PCP - General Internal Medicine 04/19/24 10/08/24 Sahil Chen CNP [address] [place] [address] PCP - General Family Medicine 10/09/24 Chris Pack Jr Administrative Office AssistantRegulatory Affairs Assistant 09/04/24 documented as of this encounter
--- OUTSIDE RECORDS SUMMARY | 2024-12-02 20:47 | XMS_ITS | Encounter Summary ---
Author Organization [employer] Address [address] [facility] 7t [place] [address] Care Team Providers Care Bitumastic Applier Name Role Phone Amna Urrutia Primary Care Provider [phone] Adele, Everett ROSE Primary Care Provider [phone] Sahil Chen CNP Primary Care Provider [phone] Reason for Visit * Reason Onset Date Comments Med Refill 07/15/2023 Encounter Details Date Type Department Care Team (Late st Contact Info) Description 07/15/2023 Refill [facility] 230 [place] [address] Sandra Leal MD 230 [place] [address] Social History Tobacco Use Types Packs/Day Years [...] Description 12/27/2024 11:15 AM EDT Office Visit [facility] [address] [place] [address] Sahil Chen CNP 230 [place] [address] documented as of this encounter Visit Diagnoses Not on filedocumented in this encounter Additional Health Concerns Assessment Noted Time PHQ-9 Depression Total Score: 16 023 8:52 AM EDT documented as of this encounter Care Teams Bitumastic Applier Relationship Specialty Start Date End Date Amna Urrutia FNP [address] [place] [address] PCP - General Family Medicine 01/01/23 04/18/24 Everett Angulo MD [address] [place] [address] PCP - General Internal Medicine 04/19/24 10/08/24 Sahil Chen CNP [address] [place] [address] PCP - General Family Medicine 10/09/24 Chris Pack Jr School Social WorkerDoll Wig Maker 09/04/24 documented as of this encounter
--- OUTSIDE RECORDS SUMMARY | 2024-12-02 20:47 | XMS_ITS | Encounter Summary ---
Author Organization [employer] Address [address] [facility] 7t [place] [address] Care Team Providers Care Land Surveyor Name Role Phone Amna Urrutia Primary Care Provider [phone] Name, Everett ROSE Primary Care Provider [phone] Sahil Chen CNP Primary Care Provider [phone] Reason for Visit * Reason Onset Date Comments Med Refill 05/30/2023 Encounter Details Date Type Department Care Team (Late st Contact Info) Description 05/30/2023 Refill [facility] 230 [place] [address] Amna Urrutia FNP [address] [place] [address] Social History Tobacco Use Types Packs/Day Years [...] AM EDT Office Visit [facility] [address] [place] [address] Sahil Chen CNP 230 [place] [address] documented as of this encounter Visit Diagnoses Not on filedocumented in this encounter Additional Health Concerns Assessment Noted Time PHQ-9 Depression Total Score: 16 023 8:52 AM EDT documented as of this encounter Care Teams Land Surveyor Relationship Specialty Start Date End Date Amna Urrutia FNP [address] [place] [address] PCP - General Family Medicine 01/01/23 04/18/24 Everett Angulo MD [address] [place] [address] PCP - General Internal Medicine 04/19/24 10/08/24 Sahil Chen CNP [address] [place] [address] [phone] PCP - General Family Medicine 10/09/24 Chris Pack Jr Yarn RewinderDehydration Unit Operator 09/04/24 documented as of this encounter
--- OUTSIDE RECORDS SUMMARY | 2024-12-02 20:47 | XMS_ITS | Encounter Summary ---
Author Organization [employer] Address 75 [facility] 7t [place] [address] Care Team Providers Care Fha Underwriter Name Role Phone Amna Urrutia Primary Care Provider [phone] Name, Everett ROSE Primary Care Provider [phone] Sahil Chen CNP Primary Care Provider [phone] Reason for Visit * Reason Onset Date Comments Appointment Request 09/08/2023 Encounter Details Date Type Department Care Team ([facility] Contact Info) Description 09/08/2023 Telephone [facility] MEDICINE [address] [place] [address] Amna Urrutia FNP [address] [place] [address] Appointment Request Social History Tobacco Use Types [...] to reschedule missed appt on 09/06 however hand sign writer was not able to offer apptdue to the provider did not have any availably documented in this encounter Plan of Treatment Upcoming Encounters Date Type Department Care Team (Late st Contact Info) Description 12/27/2024 11:15 AM EDT Office Visit [facility] MEDICINE [address] [place], [place] [phone] Sahil Chen CNP [address] [place] [address] documented as of this encounter Visit Diagnoses Not on filedocumented in this encounter Additional Health Concerns Assessment Noted Time PHQ-9 Depression Total Score: 16 023 8:52 AM EDT documented as of this encounter Care Teams Fha Underwriter Relationship Specialty Start Date End Date Amna Urrutia FNP [address] [place], [place] [phone] PCP - General Family Medicine 01/01/23 04/18/24 Everett Angulo MD [address] [place], [place] [phone] PCP - General Internal Medicine 04/19/24 10/08/24 Sahil Chen CNP [address] [place] [address] [phone] PCP - General Family Medicine 10/09/24 Chris Pack Jr Supervisor Rubber CoveringFamily Therapist 09/04/24 documented as of this encounter
--- OUTSIDE RECORDS SUMMARY | 2024-12-02 20:47 | XMS_ITS | Encounter Summary ---
Author Organization [employer] Address [address] [facility] [address] 7t [place] [address] Care Team Providers Care Reroller Hand Name Role Phone Amna Urrutia Primary Care Provider [phone] Name, Everett ROSE Primary Care Provider [phone] Sahil Chen CNP Primary Care Provider [phone] Reason for Visit * Reason Onset Date Comments Med Refill 07/28/2023 Encounter Details Date Type Department Care Team (Late st Contact Info) Description 07/28/2023 [facility]ill [facility] [address] [place] [address] Amna Urrutia FNP [address] [place] [address] Social History Tobacco Use Types Packs/Day Years [...] Description 12/27/2024 11:15 AM EDT [facility] [address] [place] [address] Sahil Chen CNP [address] [place] [address] documented as of this encounter Visit Diagnoses Not on filedocumented in this encounter Additional Health Concerns Assessment Noted Time PHQ-9 Depression Total Score: 16 023 8:52 AM EDT documented as of this encounter Care Teams Reroller Hand Relationship Specialty Start Date End Date Amna Urrutia FNP [address] [place] [address] PCP - General Family Medicine 01/01/23 04/18/24 Everett Angulo MD [address] [place] [address] PCP - General Internal Medicine 04/19/24 10/08/24 Sahil Chen CNP [address] [place] [address] [phone] PCP - General Family Medicine 10/09/24 Chris Pack Jr Principal InvestigatorChummer 09/04/24 documented as of this encounter
--- OUTSIDE RECORDS SUMMARY | 2024-12-02 20:47 | XMS_ITS | Encounter Summary ---
Author Organization [employer] Address [address] [facility] [address] 7t [place] [address] Care Team Providers Care Laborer Brooder Farm Name Role Phone Amna Urrutia Primary Care Provider [phone] Adele, Everett ROSE Primary Care Provider Sahil Chen CNP Primary Care Provider [phone] Reason for Visit * Reason Onset Date Comments Med Refill 07/15/2023 Encounter Details Date Type Department Care Team (Late st Contact Info) Description 07/15/2023 Refill [facility] [address] [place], [place] [phone] Amna Urrutia FNP [address] [place] [address] Social History Tobacco Use Types Packs/Day Years [...] 11:15 AM EDT Office Visit [facility] MEDICINE [address] [place] [address] Sahil Chen CNP [address] [place] [address] documented as of this encounter Visit Diagnoses Not on filedocumented in this encounter Additional Health Concerns Assessment Noted Time PHQ-9 Depression Total Score: 16 023 8:52 AM EDT documented as of this encounter Care Teams Laborer Brooder Farm Relationship Specialty Start Date End Date Amna Urrutia FNP [address] [place] [address] PCP - General Family Medicine 01/01/23 04/18/24 Everett Angulo MD [address] [place] [address] PCP - General Internal Medicine 04/19/24 10/08/24 Sahil Chen CNP [address] [place] [address] PCP - General Family Medicine 10/09/24 Chris Pack Jr Cnc Maintenance MechanicDairy Feed Mixing Operator 09/04/24 documented as of this encounter
--- OUTSIDE RECORDS SUMMARY | 2024-12-02 20:48 | XMS_ITS | Encounter Summary ---
Author Organization [facility] Address [address] [place] [address] Phone Care Team Providers Care Trip Motor Operator Name Role Phone Santos Mueller MD Primary Care Provider [phone] Encounter Details Date Type Department Care Team (Late st Contact Info) Description 08/05/2024 Documentation Only [facility], [address] [place] [address] Jessica Sprague [address] [place] [address] Social History Tobacco Use Types [...] on filedocumented in this encounter Care Teams Trip Motor Operator Relationship Specialty Start Date End Date Santos Mueller MD [address] [place] [address] PCP - General Emergency Medicine 07/28/23 documented as of this encounter
--- OUTSIDE RECORDS SUMMARY | 2024-12-02 20:48 | XMS_ITS | Encounter Summary ---
Author Organization [employer] Address 75 [facility] 7t [place] [address] Care Team Providers Care Manager Work Name Role Phone Sahil Chen CNP Primary Care Provider [phone] Reason for Visit * Reason Comments Transfer Pt Encounter Details Date Type Department Care Team (Latest Contact Info) Description 11/27/2024 2:45 PM EDT Office Visit [facility] MEDICINE [address] [place], [place] [phone] Sahil Chen CNP [address] [place], [place] [phone] Type 1 diabetes mellitus with hyperglycemia (CMS/HCC) (Primary Dx); Insomnia, unspecified type; Major depressive disorder, recurrent episode with anxious distress (CMS/HCC); Tobacco dependence Social History Tobacco Use Types Packs/Day Years [...] 10:19 AM EDT documented in this encounter Progress Notes * Sahil Chen CNP - 11/27/2024 2:45 PM EDT Subjective: Bradford Torres is a 29 y.o. male who presents to the office for a transfer patient visit. PreviousPCP Amna GROVER. Interim history: LITO 11/13/24 T1DM: pt follows with [facility] endocrinology Lab Results Component Value Date HGBA1C 8.7 (A) 11/27/2024 On tresiba and mealtime novolog sliding scale Has CGM in place ED Visit: He presented to [facility] ED on 11/07/24 reporting elevated BS of 337. He reported that he had run out of his insulin as he was awaiting PA for his insulin refills. He reported feeling fine and left with completing any treatment. GERD: stable on omeprazole, pepcid, nexium. Gastroparesis: On phenergan for his nausea, reports he uses it when his nausea/vomiting is severe. Reports he also manages it through deep breathing and distracting himself with hobbies/activities. Pt was advised to reach out to GI for f/u at [facility] on 11/13/24, confirms he should still be established with GI and plans to call them for a f/u. Past Surgical History: Procedure Laterality Date APPENDECTOMY Family History Problem Relation Name Age of Onset Cancer Father's Sister Diabetes type I Paternal Grandmother Social History Living situation: Lives with his cousin Jalen who he helps care for as he is disabled. 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 Prior to this job he was unemployed for 1 year due to the severe GI symptoms he gets from hisDM. Diet/exercise: none at this time. Substance use: -alcohol : occasional -tobacco: used to smoke cigarettes quit over a year ago. Using nicotine vape right now, reports that 1 vape cartridge lasts 2-3 weeks. Smokes marijuana. -opioids: none Mental health: Patient Health Questionnaire-9 Score: 19 (11/27/2024 3:09 PM) Patient Health Questionnaire-2 Score: 3 (11/27/2024 3:09 PM) Thoughts that you would be better off or hurting yourself in some way: Not at all (11/27/2024 3:09 PM) Reports that he has had a therapist in the past. He reports that he is unsure whether it has been helpful in the past. He is not currently on any medications, he was in the past moreso during his childhood. Allergies Allergen Reactions Diphenhydramine Other and Anaphylaxis Weakness, tiredness Haloperidol Shortness of breath Jaw locks up and has tremors Other Reaction(s): Difficulty Swallowing, dystonic reaction Lorazepam Shortness of breath Metoclopramide Anxiety Review of Systems Constitutional: Negative for activity change, appetite change, fatigue, fever and unexpected weightchange. HENT: Negative. Eyes: Negative. Respiratory: Negative. Cardiovascular: Negative for chest pain and palpitations. Gastrointestinal: Negative for abdominal distention, abdominal pain, constipation, diarrhea, nauseaand vomiting. Endocrine: Negative for polydipsia, polyphagia and polyuria. Genitourinary: Negative. Musculoskeletal: Negative. Skin: Negative. Neurological: Negative for dizziness, speech difficulty, weakness, light- headedness and headaches. Psychiatric/Behavioral: Positive for decreased concentration and sleep disturbance. Negative for agitation, behavioral problems, dysphoric mood, self- injury and suicidal ideas. The patient is not nervous/anxious. Vitals: 11/27/24 1457 BP: 114/72 BP Location: Left arm Patient Position: Sitting BP Cuff Size: Adult Pulse: 76 Resp: 18 Temp: 98.2 ??F (36.8 ??C) TempSrc: Oral SpO2: 99% Weight: 147 lb (66.7 kg) Physical Exam Vitals reviewed. Constitutional: General: He is not in acute distress. Appearance: Normal appearance. He is not ill-appearing, toxic-appearing or diaphoretic. HENT: Head: Normocephalic and atraumatic. Cardiovascular: Rate and Rhythm: Normal rate and regular rhythm. Pulses: Normal pulses. Heart sounds: Normal heart sounds. No murmur heard. No friction rub. No gallop. Pulmonary: Effort: Pulmonary effort is normal. No respiratory distress. Breath sounds: Normal breath sounds. No stridor. No wheezing, rhonchi or rales. Chest: Chest wall: No tenderness. Musculoskeletal: Right lower leg: No edema. Left lower leg: No edema. Neurological: General: No focal deficit present. Mental Status: He is alert and oriented to person, place, and time. Mental status is at baseline. Psychiatric: Mood and Affect: Mood normal. Behavior: Behavior normal. Thought Content: Thought content normal. Judgment: Judgment normal. Problem List Items Addressed This Visit Major depressive disorder, recurrent episode with anxious distress (CMS/HCC) Current Assessment & Plan Pt did have psych provider in the past. Pt not currently experiencing symptoms, SI/HI. We discussed the potential for connecting him with today pt declined at this time but we will keep this as an ongoing conversation. Tobacco dependence Current Assessment & Plan Encouraged cessation Pt declines NRT at this time and declines desire to quit at this time Type 1 diabetes mellitus with hyperglycemia (CMS/HCC) - Primary Overview Follows with [facility] Rick LITO 09/[address] Medication regimen: tresiba 20 units NovoLog t.i.d. with meals 1 unit for every 35 over 135 in 0 1-15 carbohydrate ratio. Current Assessment & Plan A1c above goal today at 8.7 Glucose today was elevated at 383, this was not fasting Pt is asymptomatic, U/A neg for ketones today Gastroparesis is substantial but Phenergan provides relief Maintenance BMP: UTD, wnl Microalbumin: ordered today Foot Exam: due Eye Exam: gets yearly exams but is due Lipid panel: ordered today Statin: no pending labs ASA: no MANAN/ARB: no Encouraged regular aerobic exercise for improved glycemic control Encouraged daily foot checks Encouraged lean protein snacks and to avoid foods high in sugar and simple carbohydrates Provided education that tighter control of DM will reduce GI symptoms. Ensured patient had glucose tabs and ketone strips. Discussed sick day plan/ED precautions. Treatment Goals: A1c goal: <7% FBG goal: <130 2 hour post prandial goal: <180 Plan: Plan to continue following with Endo, schedule f/u with GI for gastroparesis. Relevant Medications Continuous Glucose Sensor (FreeStyle Shiraz 2 Sensor) misc insulin pen needle (BD Pen Needle Roxanna U/F) 32G x 4 mm misc Tresiba FlexTouch 200 UNIT/ML injection Other Relevant Orders Albumin, Random Urine W/Creatinine Lipid Panel, Standard POCT Glucose (Completed) POCT HGB A1C (Completed) POCT Urinalysis (Completed) Insomnia Current Assessment & Plan Encouraged sleep hygiene Will trial melatonin Relevant Medications melatonin 10 MG tablet Plan to f/u in 1 month on gastroparesis, mental health, and insomnia. Pt also requests to be further evaluated for ADHD so we will do this at our next visit. [facility] MEDIA OPERATOR Attestation MEDIA OPERATOR Resident Attestation: Patient was seen and evaluated by Sahil Chen CNP, in collaboration with Starla Saleem MD who has reviewed my assessment and plan. I, Starla Saleem MD, have reviewed the resident's note and agree with the assessment & plan ofcare as documented above. documented in this encounter Miscellaneous Notes * Assessment & Plan Note - Sahil Chen CNP - 11/28/2024 12:04 PM EDT Associated Problem(s): Tobacco dependence Encouraged cessation Pt declines NRT at this time and declines desire to quit at this time * Assessment & Plan Note - Sahil Chen CNP - 11/28/2024 12:02 PM EDT Associated Problem(s): Insomnia Encouraged sleep hygiene Will trial melatonin * Assessment & Plan Note - Sahil Chen CNP - 11/28/2024 12:02 PM EDT Associated Problem(s): Major depressive disorder, recurrent episode with anxious distress (CMS/HCC) Pt did have psych provider in the past. Pt not currently experiencing symptoms, SI/HI. We discussed the potential for connecting him with today pt declined at this time but we will keep this as an ongoing conversation. * Assessment & Plan Note - Sahil Chen CNP - 11/28/2024 11:55 AM EDT Associated Problem(s): Type 1 diabetes mellitus with hyperglycemia (CMS/HCC) A1c above goal today at 8.7 Glucose today was elevated at 383, this was not fasting Pt is asymptomatic, U/A neg for ketones today Gastroparesis is substantial but Phenergan provides relief Maintenance BMP: UTD, wnl Microalbumin: ordered today Foot Exam: due Eye Exam: gets yearly exams but is due Lipid panel: ordered today Statin: no pending labs ASA: no MANAN/ARB: no Encouraged regular aerobic exercise for improved glycemic control Encouraged daily foot checks Encouraged lean protein snacks and to avoid foods high in sugar and simple carbohydrates Provided education that tighter control of DM will reduce GI symptoms. Ensured patient had glucose tabs and ketone strips. Discussed sick day plan/ED precautions. Treatment Goals: A1c goal: <7% FBG goal: <130 2 hour post prandial goal: <180 Plan: Plan to continue following with Endo, schedule f/u with GI for gastroparesis. documented in this encounter Plan of Treatment Upcoming Encounters Date Type Department Care Team (Late st Contact Info) Description 12/27/2024 11:15 AM EDT Office Visit [facility] MEDICINE [address] [place] [address] [phone] Sahil Chen CNP [address] [place], [place] [phone] Scheduled Orders Name Type Priority Associated Diagnoses Orde r Schedule Albumin, Random Urine W/Creatinine Lab Routine Type 1 diabetes mellitus with hyperglycemia (CMS/HCC) Expected: 11/27/2024 (Approximate), Expires: 11/26/2025 Lipid Panel, Standard Lab Routine Type 1 diabetes mellitus with hyperglycemia (CMS/HCC) Expected: 11/27/2024 (Approximate), Expires: 11/26/2025 documented as of this encounter Procedures Procedure Name Priority Date/Time Associated Diagnosis Comments POCT URINALYSIS DIPSTICK Routine 11/27/2024 4:39 PM EDT Type 1 diabetes mellitus with hyperglycemia (CMS/HCC) POCT GLYCATED HEMOGLOBIN, TOTAL Routine 11/27/2024 3:07 PM EDT Type 1 diabetes mellitus with hyperglycemia (CMS/HCC) POCT GLUCOSE Routine 11/27/2024 2:58 PM EDT Type 1 diabetes mellitus with hyperglycemia (CMS/HCC) documented in this encounter Results * (ABNORMAL) POCT Urinalysis (11/27/2024 4:39 PM EDT) Color, UA Yellow Clarity, UA Clear Glucose, UA Many Comment:1000mg/dl Bilirubin, UA Negative Ketones, UA Negative Spec Grav, UA 1.020 Blood, UA Positive(A) Negative, None Detected Comment:Trace-Intact pH, UA 6.5 Protein, UA Negative Urobilinogen, UA 0.2 Leukocytes, UA Negative Negative, Rare, Trace Nitrite, UA Negative Negative, None Detected Appearance, UA Clear QC Media Lot # [id number] Lot# Expiration Date Urine 11/27/2024 4:39 PM EDT [facility] POINT OF CARE TEST ENTER/ EDIT ORDERABLES Final Result * (ABNORMAL) POCT HGB A1C (11/27/2024 3:07 PM EDT) [facility] Hemoglobin A1C 8.7(A) 4.0 - 6.0 % QC Media Lot # [id number] Lot# Expiration Date Blood 11/27/2024 3:07 PM EDT Result [facility] POINT OF CARE TEST ENTER/ EDIT ORDERABLES Final Result * (ABNORMAL) POCT Glucose (11/27/2024 2:58 PM EDT) [facility] Glucose Blood, POC 383(A) 60 - 200 mg/dL QC Media Lot # [id number] Lot# Expiration Date Blood Capillary blood specimen / Unknown 11/27/2024 2:58 PM EDT [facility] POINT OF CARE TEST ENTER/ EDIT ORDERABLES Final Result documented in this encounter Visit Diagnoses Diagnosis Type 1 diabetes mellitus with hyperglycemia ([facility])- Primary Insomnia, unspecified type Major depressive disorder, recurrent episode with anxious distress ([facility]) Tobacco dependence Tobacco use disorder documented in this encounter Additional Health Concerns Assessment Noted Time PHQ-9 Depression Total Score: 19 025 3:09 PM EDT documented as of this encounter Care Teams Manager Work Relationship Specialty Start Date End Date Sahil Chen CNP [address] [place] [address] [place] [address] PCP - General Family Medicine 10/09/24 Chris Pack Jr Sound System InstallerFacilities Supervisor 09/04/24 documented as of this encounter
--- OUTSIDE RECORDS SUMMARY | 2024-12-02 20:48 | XMS_ITS | Encounter Summary ---
Author Organization [employer] Address [address] [facility] 7t [place] [address] Care Team Providers Care Director Of Elementary Education Name Role Phone Amna Urrutia Primary Care Provider [phone] Name, Everett ROSE Primary Care Provider [phone] Sahil Chen CNP Primary Care Provider [phone] Encounter Details Date Type Department Care Team ([facility] Contact Info) Description 01/17/2023 Orders Only [facility] MEDICINE [address] [place] [address] Amna Urrutia FNP [address] [place] [address] Social History Tobacco Use Types Packs/Day Years [...] Upcoming Encounters Date Type Department Care Team ([facility] Contact Info) Description 12/27/2024 11:15 AM EDT Office Visit [facility] MEDICINE [address] [place] [address] Sahil Chen CNP [address] [place] [address] documented as of this encounter Visit Diagnoses Not on filedocumented in this encounter Additional Health Concerns Assessment Noted Time PHQ-9 Depression Total Score: 7 01/07/20 23 9:10 AM EDT documented as of this encounter Care Teams Director Of Elementary Education Relationship Specialty Start Date End Date Amna Urrutia FNP [address] [place] [address] PCP - General Family Medicine 01/01/23 04/18/24 Name, MD Everett [address] [place] [address] PCP - General Internal Medicine 04/19/24 10/08/24 Sahil Chen CNP [address] [place] [address] PCP - General Family Medicine 10/09/24 Chris Pack Jr Industrial X Ray OperatorDerrick Boat Captain 09/04/24 documented as of this encounter
--- OUTSIDE RECORDS SUMMARY | 2024-12-02 20:48 | XMS_ITS | Encounter Summary ---
Author Organization [employer] Address [address] [facility] [address]t [place] [address] Care Team Providers Care Quality Assurance Group Leader Name Role Phone Gustavo Sahil SERA Primary Care Provider [phone] Encounter Details Date Type Department Care Team [...] Office Visit [facility] MEDICINE [address] [place] [address] Sahil Chen CNP [address] [place] [address] documented as of this encounter Visit Diagnoses Not on filedocumented in this encounter Additional Health Concerns Assessment Noted Time PHQ-9 Depression Total Score: 19 025 3:09 PM EDT documented as of this encounter Care Teams Quality Assurance Group Leader Relationship Specialty Start Date End Date Sahil Chen CNP [address] [place] [address] PCP - General Family Medicine 10/09/24 Chris Pack Jr Certified Technician SpecialistProtective Signal Operator 09/04/24 documented as of this encounter
--- OUTSIDE RECORDS SUMMARY | 2024-12-02 20:48 | XMS_ITS | Encounter Summary ---
Author Organization [employer] Address [address] [place] [address] 7 [place] [address] Care Team Providers Care Cartridge Belt Puncher Name Role Phone Amna Urrutia Primary Care Provider [phone] Name, Everett ROSE Primary Care Provider [phone] Sahil Chen CNP Primary Care Provider [phone] Reason for Visit * Reason Onset Date Comments Med Refill 04/28/2023 Encounter Details Date Type Department Care Team (Late st Contact Info) Description 04/28/2023 Refill [facility] MEDICINE [address] [place] [address] [phone] Sandra Leal MD [address] [place] [address] [phone] Social History Tobacco Use Types Packs/Day Years [...] Description 12/27/2024 11:15 AM EDT Office Visit [facility] MEDICINE [address] [place] [address] [phone] Sahil Chen CNP [address] [place] [address] documented as of this encounter Visit Diagnoses Not on filedocumented in this encounter Additional Health Concerns Assessment Noted Time PHQ-9 Depression Total Score: 16 023 8:52 AM EDT documented as of this encounter Care Teams Cartridge Belt Puncher Relationship Specialty Start Date End Date Amna Urrutia FNP [address] [place], [place] [phone] PCP - General Family Medicine 01/01/23 04/18/24 Name, MD Everett [address] [place], [place] [phone] PCP - General Internal Medicine 04/19/24 10/08/24 Sahil Chen CNP [address] [place], [place] [phone] PCP - General Family Medicine 10/09/24 Chris Pack Jr Flatbed Company DriverData Acquisition Technician 09/04/24 documented as of this encounter
--- OUTSIDE RECORDS SUMMARY | 2024-12-02 20:48 | XMS_ITS | Encounter Summary ---
Author Organization [employer] Address [address] [place] [address] [address] [place] [address] Care Team Providers Care Security Sergeant Name Role Phone Amna Urrutia Primary Care Provider [phone] Name, Everett ROSE Primary Care Provider [phone] Sahil Chen CNP Primary Care Provider [phone] Reason for Visit * Reason Onset Date Comments Med Refill 05/01/2023 Encounter Details Date Type Department Care Team (Late st Contact Info) Description 05/01/2023 Refill [facility] [address] [place] [address] [phone] Sandra Leal MD [address] [place] [address] [phone] Social History Tobacco Use Types Packs/Day Years [...] Description 12/27/2024 11:15 AM EDT Office Visit [facility] [address] [place] [address] [phone] Sahil Chen CNP [address] [place] [address] documented as of this encounter Visit Diagnoses Not on filedocumented in this encounter Additional Health Concerns Assessment Noted Time PHQ-9 Depression Total Score: 16 023 8:52 AM EDT documented as of this encounter Care Teams Security Sergeant Relationship Specialty Start Date End Date Amna Urrutia FNP [address] [place], [place] [phone] PCP - General Family Medicine 01/01/23 04/18/24 Name, MD Everett [address] [place], [place] [phone] PCP - General Internal Medicine 04/19/24 10/08/24 Sahil Chen CNP [address] [place], [place] [phone] PCP - General Family Medicine 10/09/24 Chris Pack Jr Cylinder Block Hole RelinerRegulator Tester 09/04/24 documented as of this encounter
--- OUTSIDE RECORDS SUMMARY | 2024-12-02 20:48 | XMS_ITS | Clinical Summary ---
Author Organization [employer] Address [address] [facility] [address] [place] [address] Care Team Providers Care Manager Card Name Role Phone Gustavo Sahil MARKER HAND Primary Care Provider [phone] Allergies Active Allergy Reactions Criticality Noted Date [...] record from that organization. Continuous Blood Gluc Student Financial Services Counselor (FreeStyle Shiraz 2 [place]) deviceIndications: Type 1 diabetes mellitus with hyperglycemia ([facility]) Use with sensor to monitor blood glucose levels 1 each 023 Active Acetaminophen Extra Strength 500 MG tablet 022 Active Blood Glucose Monitoring Suppl (FreeStyle Lecompte Lite) w/Device kit 022 Active FREESTYLE LITE [...] miscIndications:Ty pe 1 diabetes mellitus with hyperglycemia ([facility]) Use to monitor blood sugar level - [...] injectionIndicatio ns:Type 1 diabetes mellitus with hyperglycemia ([facility]) Inject 20 Units under the skin in [...] at work. Problem Noted Date Diagnosed Date Type 1 diabetes mellitus with hyperglycemia 11/19 Overview (11/28/2024): Follows with [facility] Rick MORSE 09/[address] Medication regimen: tresiba 20 units NovoLog t.i.d. with meals 1 unit for every 35 over 135 in 0 1-15 carbohydrate ratio. Assessment & Plan (11/28/2024 12:00 PM EDT): A1c above goal today at 8.7 Glucose [...] Endo, schedule f/u with GI for gastroparesis. Insomnia 11/28/2024 Assessment & Plan (11/28/2024 12:02 PM EDT): Encouraged sleep hygiene Will trial melatonin Acute midline low back pain without sciatica [...] until f w GI Tobacco dependence 06/27/2023 Assessment & Plan (11/28/2024 12:04 PM EDT): Encouraged cessation Pt declines NRT at this time and declines desire to quit at this time History of rhabdomyolysis 06/27/2023 History of homicidal [...] a. Patient was sectioned and taken to [facility] via ambulance History of concussion 05/31/2023 [...] with anxious distress 04/14/2023 Assessment & Plan (11/28/2024 12:02 PM EDT): Pt did have psych provider in the past. Pt not currently experiencing symptoms, SI/HI. We discussed the potential for connecting him with today pt declined at this time but we will keep this as an ongoing conversation. Assessment & Plan (04/17/2023 9:12 AM EDT): [...] depressive disorder, recurrent episode with anxious distress ([facility]/HCC) Patient ready to address current needs Yes [...] and referred for outpt tx -pt to elle [facility]itt PCP History of diabetic ketoacidosis 04/14/2023 Assessment [...] to schedule apt ---I discussed today w aviation medicine specialist and request to try to schedule [...] f up until can start care w cake knocker Type 1 diabetes mellitus without complication Assessment & Plan (03/21/2024 3:41 PM EDT): Has apt w Liquor Blender next week to start care Assessment & [...] EDT): ?? Reports diagnosed approx 2018 in [place] ?? Referral to establish with GI provider [...] Description 11/27/2024 2:45 PM EDT Office Visit [facility] [address] [place] [phone] Sahil Chen CNP Type 1 diabetes mellitus with hyperglycemia (CMS/HCC) (Primary Dx); Insomnia, unspecified type; Major depressive disorder, recurrent episode with anxious distress (CMS/HCC); Tobacco dependence 11/27/2024 Travel 11/19/2024 Patient Outreach [facility] [address] [place] [address] Sahil Chen CNP Pre-visit Planning ([facility] unable to reach [facility]) 11/13/2024 10:00 AM EDT Office Visit [facility] [address] [place] [phone] Alejandra Saucedo DO Type 1 diabetes mellitus with hyperglycemia (CMS/HCC) (Primary Dx); Chronic gastroesophageal reflux disease; Hyperglycemia 11/13/2024 Travel 11/12/2024 Telephone [facility] [address] [place] [phone] Sahil Chen CNP Chart Prep 11/08/2024 Patient Outreach [facility] [address] [place] [phone] Sahil Chen CNP Transition Of Care (Tcm) 11/06/2024 Orders Only [facility] [address] [place] [phone] Sahil Chen CNP Gastroesophageal reflux disease without esophagitis 11/06/2024 Refill [facility] [address] [place] [address] Sahil Chen CNP Gastroesophageal reflux disease without esophagitis 11/06/2024 Telephone [facility] [address] [place] [address] Sahil Chen CNP Novolog 11/05/2024 Refill [facility] [address] [place] [phone] Lindsey Cuellar NP Gastroesophageal reflux disease without esophagitis 11/01/2024 Population Health Risk Score [facility] (C3) Department [address] [place] [address] [phone] Provider, Population Health Generic 10/18/2024 Orders Only GENERIC EXTERNAL DATA DEPARTMENT Provider, Generic External Data 10/14/2024 Patient Outreach [facility] [address] [place] [phone] Sahil Chen CNP Transition Of Care (Tcm) 10/09/2024 Telephone [facility] [address] [address] Shivani Lopez, RUSTY 10/09/2024 Orders Only [facility] [address] [place] [phone] Sahil Chen CNP Type 1 diabetes mellitus with hyperglycemia (CMS/HCC) (Primary Dx) 10/08/2024 Refill [facility] [address] [place] [address] Everett Angulo MD Gastroesophageal reflux disease without esophagitis 10/08/2024 Refill [facility] [address] [place] [address] Everett Angulo MD Type 1 diabetes mellitus with hyperglycemia (CMS/HCC) 09/30/2024 Patient Outreach [facility] [address] [place] [address] Everett Angulo MD Pre-visit Planning ([facility] unable to complete, patient working. ) 09/16/2024 Telephone [facility] [address] [place] [phone] Gertrude Tyler, RN Results 09/13/2024 2:00 PM EST Office Visit [facility] [address] [place] [phone] Denice Rubin MD Dry cough (Primary Dx); Wheeze 09/12/2024 Telephone [facility] [address] [place] [phone] Everett Angulo MD Nurse Triage 09/12/2024 Refill [facility] [address] [place] [address] Everett Angulo MD 09/10/[address] [address] Everett Angulo MD Medication Question 09/10/2024 Patient Outreach [address] [address] Everett Angulo MD Transition Of Care (Tcm) 09/09/2024 Orders Only GENERIC EXTERNAL DATA DEPARTMENT Provider, Generic External Data 09/04/2024 Telephone [facility] [address] [place] [address] Everett Angulo MD Care Coordination (CP Care Plan) from Last 3 Months Immunizations Name Administration [...] Description 12/27/2024 11:15 AM EDT Office Visit [facility] [address] [place], [place] [phone] Sahil Chen CNP [address] [place] [address] Health Maintenance Due Date Last Done Comments [...] Dental X-Ray: Bitewings 10/19/2023 10/18/2022 COVID-19 Vaccine (1 - 2023- season) 2024 Influenza Vaccine (#1) 2024 06/08/2016 Lipid Panel 11/14/2024 11/15/2023 Diabetes: Hemoglobin A1C 02/26/2025 025, 11/13/2024, 02/26/2024, Additional history exists Eye Exam 05/21/2025 05/21/2024, 08/2023, 05/21/2024, Additional history exists Depression Monitoring 05/29/2025 11/27/2024, 025 Depression Screening 11/27/2025 11/27/2024, 11/28/19 25 SDOH Screening 11/27/2025 11/27/2024 Tobacco Screening 11/28/2025 11/28/2024 DTaP/Tdap/Td Vaccines (2 - Td or Tdap) [...] hyperglycemia (CMS/HCC) POCT GLYCATED HEMOGLOBIN, TOTAL Routine 11/13/2024 10:22 [...] REFLEX MICROSCOPIC Routine 09/09/2024 6:42 PM EST HEPATITIS C AB W/REFL TO HCV [...] to Health Maintenance Results * (ABNORMAL) POCT Urinalysis (11/27/2024 4:39 [...] Media Lot # [id number] Lot# Expiration Date [id number] Urine 11/27/2024 4:39 PM EDT Result [facility] POINT OF CARE TEST ENTER/ EDIT ORDERABLES Final Result * (ABNORMAL) POCT HGB A1C (11/27/2024 3:07 PM EDT) Only the most recent of2 resultswithin the time period is included. Hemoglobin A1C 8.7(A) 4.0 - 6.0 % QC Media Lot # [id number] Lot# Expiration Date Blood 11/27/2024 3:07 PM EDT Result [facility] POINT OF CARE TEST ENTER/ EDIT ORDERABLES Final Result * (ABNORMAL) POCT Glucose (11/27/2024 2:58 PM EDT) Only the most recent of2 resultswithin the time period is included. Glucose Blood, POC 383(A) 60 - 200 mg/dL QC Media Lot # [id number] Lot# Expiration Date Blood Capillary blood specimen / Unknown 11/27/2024 2:58 PM EDT Result [facility] POINT OF CARE TEST ENTER/ EDIT ORDERABLES Final Result * (ABNORMAL) Glucose, Whole Blood (10/18/2024 3:01 PM EST) Glucose, Whole Blood 333(H) 60 - 115 mg/dL [facility] Comment:METER #: [id number] 5Testing performed in the Endocrinology Department [address] , [address], [facility]. 10/18/2024 3:01 PM EST 10/18/2024 3:05 PM EST Result [facility] Generic External Data Provider LAB BLOOD ORDERAB LES Final Result [facility] [address] [place] [phone] * CT Abdomen Pelvis w/o Contrast (10/11/2024 11:08 PM EST) Anatomical Region Laterality Modality Body, Pelvis, Abdomen Computed T omography 10/11/2024 11:0 8 PM EST Narrative 10/11/2024 11:09 PM EST ? [facility] ?[address] ?[place] [address] ? CT Scan Report ? Signed ? Patient: Bradford Torres ?MR#: [id number] ?? [id number] ? : 1995 ?Acct:[id number] ? Age/Sex: 29 / M ?ADM Date: 10/11/24 ? Loc: HO.ED ? Attending Dr: ? Ordering Physician: Jorge Augustin ?? Date of Service: 10/11/24 ?? Procedure(s): CT abdomen pelvis wo IV con ?? Accession Number(s): [id number] ? cc: Name,Everett ROSE; Joreg Augustin ? Report Number: ?? [id number]: Total DLP = ??378.00 mGy-cm ? CLINICAL [...] ? DD/ 07 ? TD/TT: 10/11/242307 ? Acidizer Helper: ? Procedure Note Geovanna, Image - 10/11/[address] [address] [address] Scan Report Signed Patient: Bradford Torres JMR#: [id number] : 1995Acct:[id number] Age/Sex: 29 / MADM Date: 10/11/24 Loc: HO.ED Attending Dr: Ordering Physician: Jorge Augustin Date of Service: 10/11/24 Procedure(s): CT abdomen pelvis wo IV con Accession Number(s): [id number] cc: Name,Everett ROSE; Jorge Augustin Report Number: [id number]: Total DLP = 378.00 mGy-cm CLINICAL HISTORY: [...] in OV> 10/11/242308 DD/ 07 TD/TT: 10/11/242307 Acidizer Helper: us [facility] External Provider IMG CT PROCEDURES Edited Result - Final * XR Chest 2 Views (09/13/2024 2:12 PM EST) Anatomical Region Laterality Modality Chest Radiographic Sheri ging 09/13/2024 2:12 PM EST Narrative 09/13/2024 2:33 PM EST ?[facility] ?[address] ?[place] [address] ?XRay Report ? Signed ? Patient: Torres,Bradford J ?MR#: [id number] ?? [id number] ? : 1995 ?Acct:[id number] ? Age/Sex: 29 / M ?ADM Date: 09/13/24 ? Loc: HO.HHCX ? Attending Dr: Denice Rubin MD ? Ordering Physician: Denice Rubin MD ?? Date of Service: 09/13/24 ?? Procedure(s): XR chest 2V ?? Accession Number(s): [id number] ? cc: Denice Rubin MD ? EXAMINATION: [...] ? DD/ 1412 ? TD/TT: 09/13/241421 ? Acidizer Helper: ? Procedure Note Geovanna, Image - 09/13/[address] [address] XRay Report Signed Patient: Bradford Torres JMR#: [id number] : 1995Acct:[id number] Age/Sex: 29 / MADM Date: 09/13/24 Loc: HO.HHCX Attending Dr: Denice Rubin MD Ordering Physician: Denice Rubin MD Date of Service: 09/13/24 Procedure(s): XR chest 2V Accession Number(s): [id number] cc: Denice Rubin MD EXAMINATION: XR CHEST [...] 09/13/24 1429 DD/ 1412 TD/TT: 09/13/24 1422 Acidizer Helper: Denice Rubin MD IMG XR PROCEDURES Final Re sult * Influenza B (ID NOW Rapid Molecular) (09/13/2024 2:06 PM EST) Influenza B Negative Negative, Indeterminate [facility] Swab 09/13/2024 2:06 PM EST Denice Rubin MD POINT OF CARE TEST ENTER/E DIT ORDERABLES Final Result Performing Organization Address [facility] Co de Phone Number [facility] [address] [place] [phone] * Influenza A (ID NOW Rapid Molecular) (09/13/2024 2:06 PM EST) Influenza A Negative Negative, Indeterminate [facility] Swab 09/13/2024 2:06 PM EST Denice Rubin MD POINT OF CARE TEST ENTER/E DIT ORDERABLES Final Result Performing Organization Address [facility] Co de Phone Number [facility] [address] [place] [phone] * POCT COVID-19 Ag Goldman ID NOW (09/13/2024 2:06 PM EST) [facility] Coronavirus Antigen PCR Negative Negative, Indeterminate, None Detected, Invalid, Specimen unsatisfactory for evaluation, Weakly Positive Swab 09/13/2024 2:06 PM EST Denice Rubin MD POINT OF CARE TEST ENTER/E DIT ORDERABLES Final Result * (ABNORMAL) Respiratory Viral Panel PCR (09/13/2024 2:05 PM EST) [facility] Adenovirus PCR Not Detected Not Detect. [facility] Bordetella pertussis PCR Not Detected Not Detect. [facility] Comment:Interpret results wi th caution. If B. pertussis isspecifically suspected, additional testing using analternate method is recommended. Bordetella parapertussis PCR Not Detected Not Detect. [facility] Chlamydia pneumoniae PCR Not Detected Not Detect. [facility] Coronavirus 229E PCR Not Detected Not Detect. [facility] Coronavirus HKU1 PCR Not Detected Not Detect. [facility] Coronavirus NL63 PCR Not Detected Not Detect. [facility] Coronavirus OC43 PCR Not Detected Not Detect. [facility] SARS-CoV-2 PCR Not Detected Not Detect. [facility] Comment:SARS-CoV-2 not detec brooke by real-time RT-PCR.Note: If clinical suspicion for Sars-CoV-2 is high, continueto maintain precautions and consider repeat testing.Test results should be interpreted in the context ofclinical findings and other laboratory data.Rare polymorphisms exist that could lead to false-negativeor false-positive results. If results do not match theclinical findings, additional testing should be considered.Results reported to [facility].This test has been authorized by the FDA under the EmergencyUse Authorization (EUA) for use by authorized laboratories. Influenza A PCR Detected(A) Not Detect. [facility] Influenza B PCR Not Detected Not Detect. [facility] Human metapneumovirus PCR Not Detected Not Detect. [facility] Rhino/Enterovirus PCR Not Detected Not Detect. [facility] Mycoplasma pneumoniae PCR Not Detected Not Detect. [facility] Parainfluenza 1 PCR Not Detected Not Detect. [facility] Parainfluenza 2 PCR Not Detected Not Detect. [facility] Parainfluenza 3 PCR Not Detected Not Detect. [facility] Parainfluenza 4 PCR Not Detected Not Detect. [facility] RSV PCR Not Detected Not Detect. [facility] Resp Panel NA Note See Note H [facility] Comment:All results must be correlated [...] assay is performed by Multiplexed PCR, utilizing Senscient Film Array. Swab 09/13/2024 2:05 PM EST 09/14/2024 8:41 AM EST us Denice Rubin MD LAB BLOOD ORDERABLES Final Result [facility] [address] [place] [address] [phone] * US SCROTUM DOPPLER (09/09/2024 10:19 PM EST) Only the most recent of2 resultswithin the time period is included. Anatomical Region Laterality Modality Abdomen Ultrasound 09/09/2024 10:1 9 PM EST Narrative 09/10/2024 8:26 AM EST ? [facility] ?[address] ?[place] [address] ? Ultrasound Report ? Signed ? Patient: Torres,Bradford J ?MR#: [id number] ?? [id number] ? : 1995 ?Acct:[id number] ? Age/Sex: 29 / M ?ADM Date: 01/20/25 ? Loc: HO.ED ? Attending Dr: ? Ordering Physician: Sedrick Grady MD ?? Date of Service: 09/09/24 ?? Procedure(s): US scrotum doppler ?? Accession Number(s): [id number] ? cc: Name,Everett ROSE; Sedrick Grady MD ? CLINICAL HISTORY: testicular pain , no swelling ? US Scrotum with Doppler ? Comparison: US/VA/SR - US SCROTUM - 08/01/24 23:48 EST [...] ? DD/ 18 ? TD/TT: 09/09/242218 ? Acidizer Helper: ? Procedure Note Aamir Austin - 09/10/2024 [place] [address] Ultrasound Report Signed Patient: Bradford Torres R#: [id number] : 1995Acct:[id number] Age/Sex: 29 / MADM Date: 09/09/24 Loc: HO.ED Attending Dr: Ordering Physician: Sedrick Grady MD Date of Service: 09/09/24 Procedure(s): US scrotum doppler Accession Number(s): [id number] cc: Everett Angulo MD; Sedrick Grady MD CLINICAL HISTORY: testicular pain , no swelling US Scrotum with Doppler Comparison: US/VA/SR - US SCROTUM - 08/01/24 23:48 EST [...] OV> 09/10/24 0826 DD/ 18 TD/TT: 09/09/242218 Acidizer Helper: [facility] External Provider IMG US PROCEDURES Edited Result - Final * US Scrotum (09/09/2024 10:19 PM EST) Only the most recent of2 resultswithin the time period is included. Anatomical Region Laterality Modality Body Ultrasound 09/09/2024 10:1 9 PM EST Narrative 09/09/2024 10:21 PM EST ? [facility] ?[address] ?[place] [address] ? Ultrasound Report ? Signed ? Patient: Torers,Bradford J ?MR#: [id number] ?? [id number] ? : 1995 ?Acct:[id number] ? Age/Sex: 29 / M ?ADM Date: 01/20/25 ? Loc: HO.ED ? Attending Dr: ? Ordering Physician: Sedrick Grady MD ?? Date of Service: 09/09/24 ?? Procedure(s): US scrotum ?? Accession Number(s): [id number] ? cc: Name,Everett ROSE; Sedrick Grady MD ? CLINICAL HISTORY: testicular pain , no swelling ? US Scrotum with Doppler ? Comparison: US/VA/SR - US SCROTUM - 08/01/24 23:48 EST [...] ? DD/ 18 ? TD/TT: 09/09/242218 ? Acidizer Helper: ? Procedure Note [place], Image - 09/09/2024 [place] [address] Ultrasound Report Signed Patient: Bradford Torres R#: [id number] : 1995Acct:[id number] Age/Sex: 29 / MADM Date: 09/09/24 Loc: HO.ED Attending Dr: Ordering Physician: Sedrick Grady MD Date of Service: 09/09/24 Procedure(s): US scrotum Accession Number(s): [id number] cc: Name,Everett ROSE; Sedrick Grady MD CLINICAL HISTORY: testicular pain , no swelling US Scrotum with Doppler Comparison: US/VA/SR - US SCROTUM - 08/01/24 23:48 EST [...] in OV> 09/09/242220 DD/ 18 TD/TT: 09/09/242218 Acidizer Helper: [facility] External Provider IMG US PROCEDURES Final Result * Lactic Acid (09/09/2024 8:47 PM EST) [facility] Lactic Acid 0.8 0.5 - 2.0 mmol/L [facility] 09/09/2024 8:47 PM EST 09/09/2024 8:53 PM EST Narrative [facility] - 09/09/2024 9:09 PM EST NOT ON ICE Generic External Data Provider LAB BLOOD ORDERAB LES Final Result [facility] [address] [place] [phone] * (ABNORMAL) CBC auto differential (09/09/2024 8:17 PM EST) Pathologist [facility] White Blood Count 7.7 4.8 - 10.8 X10*3/uL [facility] Red Blood Count 4.72 4.60 - 5.80 X10*6/uL [facility] Hemoglobin 12.4(L) 14.0 - 18.0 g/dl [facility] Hematocrit 36.7(L) 42.0 - 52.0 % [facility] Mean Corpuscular Volume 77.8(L) 80.0 - 98.0 fL [facility] Mean Corpuscular Hemoglobin 26.3(L) 27.0 - 33.0 pg [facility] Mean Corpuscular HGB Conc 33.8 31.0 - 36.0 g/dl [facility] Red Cell Distribution Width 13.9 11.0 - 16.0 % [facility] Platelet Count 236 160 - 400 X10*3/uL [facility] Mean Platelet Volume 9.4 9.4 - 12.4 fL [facility] Neutrophils Percent Auto 71.7 45 - 73 % [facility] Imm Gran Pct Auto 0.1 0.0 - 0.4 % [facility] Lymphocytes Percent Auto 15.8(L) 20 - 40 % [facility] Monocytes Percent Auto 10.3 2 - 11 % [facility] Eosinophils Percent Auto 1.6 0 - 4 % [facility] Basophils Percent Auto 0.5 0 - 2 % [facility] NRBC Pct Auto 0.0 0.0 - 0.2 /100WBC [facility] Neutrophils Absolute Auto 5.5 2.0 - 8.3 x10*3/uL [facility] Imm Gran Abs Auto 0.01 0.00 - 0.03 X10*3/uL [facility] Lymphocytes Absolute Auto 1.2 1.2 - 4.9 X10*3/uL [facility] Monocytes Absolute Auto 0.8 0.1 - 1.2 X10*3/uL [facility] Eosinophils Absolute Auto 0.1 0.0 - 0.4 X10*3/uL [facility] Basophils Absolute Auto 0.0 0.0 - 0.2 X10*3/uL [facility] NRBC Abs Auto 0.000 0.0 - 0.012 X10*3/uL [facility] 09/09/2024 8:17 PM EST 09/09/2024 8:19 PM EST us Generic External Data Provider LAB BLOOD ORDERAB LES Final Result [facility] [address] [place] [phone] * (ABNORMAL) Comprehensive Metabolic Panel (09/09/2024 8:17 PM EST) Sodium 136 135 - 145 mmol/L [facility] Potassium 3.9 3.3 - 5.1 mmol/L [facility] Chloride 104 96 - 108 mmol/L [facility] Carbon Dioxide 21(L) 22 - 29 mmol/L [facility] Anion Gap 15 12 - 20 [facility] Urea Nitrogen (BUN) 15 9 - 16 mg/dL [facility] Creatinine, Serum 0.60 0.5 - 1.4 mg/dL [facility] Creatinine Clr Calc Pharmacy 178.3 [facility] Comment:eGFR (calculated fro m the MDRD study equation) and eCrCl(calculated from the Cockcroft-Gault equation) are based ondifferent parameters and may not yield comparable results.If eCrCl result is absurd, please check patient'sheight/weight. Estimated Glomerular Filt Rate >60 [facility] Comment:Chronic Kidney Disea se: Estimated GFR < 60 mL/min/1.11f0Cecdrc Kidney Disease: Estimated GFR < 15 mL/min/1.73m2 Glucose 112 60 - 115 mg/dL [facility] Calcium 8.6 8.4 - 10.2 mg/dL [facility] Bilirubin, Total 0.4 0.0 - 1.0 mg/dL [facility] Aspartate Amino Transferase 18 5 - 37 U/L [facility] Alanine Aminotransferase 12 0 - 40 U/L [facility] Total Protein 7.4 6.5 - 8.0 g/dL [facility] Albumin Level 4.2 3.5 - 5.0 g/dL [facility] Alkaline Phosphatase 64 39 - 117 U/L [facility] 09/09/2024 8:17 PM EST 09/09/2024 8:19 PM EST us Generic External Data Provider LAB BLOOD ORDERAB LES Final Result [facility] [address] [place] [phone] [phone] * Urinalysis w/reflex microscopic (09/09/2024 6:42 PM EST) Color Urine Yellow [facility] Appearance Urine Clear [facility] PH >=9.0 5.0 - 9.0 [facility] Glucose Urine UA Negative Negative mg/dL [facility] Urine Blood Negative Negative [facility] Specific [place] - Urine 1.025 1.005 - 1.025 [facility] Urine Protein Negative Neg-Trace mg/dL [facility] Urine Ketones 15 Negative mg/dL [facility] Nitrite Urine Negative Negative [facility] Leukocyte Esterase Urine Negative Negative [facility] 09/09/2024 6:42 PM EST 09/09/2024 6:44 PM EST Narrative [facility] - 09/09/2024 6:59 PM EST Urine, Clean Catch us Generic External Data Provider LAB URINE ORDERAB LES Final Result Performing Organization Address City/[facility]/ZIP Co de Phone Number [facility] [address] [place] [phone] * Hepatitis C Antibody with Reflex to HCV, RNA, Quantitative, Real-Time PCR (11/15/2023 1:28 PM EDT) Hepatitis C Antibody Nonreactive Nonreactive [facility] Comment:Antibodies to HCV no t detected; does not exclude early acuteHCV infection. Blood Venous blood specimen / Unknown 11/15/2023 1:28 PM EDT 11/15/2023 4:04 PM EDT us Amna Urrutia [employer] LAB BLOOD ORDERABLES Final Resu lt Performing Organization Address City/[facility]/ZIP Co de Phone Number [facility] [address] [place] [phone] * Lipid Panel, Standard (11/15/2023 1:28 PM EDT) Triglycerides 56 <150 mg/dL [facility] Comment:Desirable Triglyceri de: less than 150 mg/dLBorderline High Triglyceride 150-199 mg/dLHigh Triglyceride: 200-499 mg/dLVery High Triglyceride: greater than or equal to 5OO mg/dL Cholesterol 145 <200 mg/dL [facility] Comment:Desirable Cholestero l: less than 200 mg/dLBorderline High Cholesterol: 200-239 mg/dLHigh Cholesterol: greater than 239 mg/dL LDL Cholesterol Calculated 84 <100 mg/dL [facility] Comment:Desirable LDL: less than 100 mg/dLNear Optimal/Above Optimal LDL: 110- 129 mg/dLBorderline High LDL: 130-159 mg/dLHigh LDL: 160-189 mg/dLVery High LDL: greater than or equal to 190 mg/dL HDL Cholesterol 50 >40 mg/dL [facility] Comment:Desirable HDL: great er than 40 mg/dL Note: This HDL assay may give artificially low results in patients with liver disease. Blood Venous blood specimen / Unknown 11/15/2023 1:28 PM EDT 11/15/2023 4:04 PM EDT Amna Urrutia [employer] [facility] BLOOD ORDERABLES Final Resu lt [facility] [address] [place] [phone] [phone] * HIV-1 RNA, Quantitative, Real-Time PCR with Reflex to Genotype (RTI, PI, Integrase) (01/06/2023 10:25 AM EDT) HIV 1 RNA, QN PCR NOT DETECTED copies/mL [facility], [facility] 1 RNA, QN PCR NOT DETECTED Log copies/mL [facility], Comment: REFERENCE RANGE: NOT DETECTED copies/mL ?NOT DETECTED ??Log copies/mL This test was performed using Real-Time Polymerase Chain Reaction. Reportable range is 20 to 10,000,000 copies/mL (1.30-7.00 Log copies/mL). 01/06/2023 10:2 5 AM EDT 01/06/2023 10:26 AM EDT Narrative [facility] - 01/11/2023 1:53 AM EDT FASTING:NO SPECIMEN COLLECTED AT PROVIDER OFFICE. FASTING: NO Amna Urrutia [employer] [facility] BLOOD ORDERABLES Final Resu lt [facility] [address], [place] [address] [facility], [id number] [place] [phone] from Last 3 Months or Most Recently Relevant to Health Maintenance Insurance [facility] C3 HSN FULL DENTAL [place] Care Teams Manager Card Relationship Specialty Start Date End Date Sahil Chen CNP [address] [place] [address] PCP - General Family Medicine 10/09/24 Chris Pack Jr Wound/Ostomy NurseLehr Loader 09/04/24
--- OUTSIDE RECORDS SUMMARY | 2024-12-02 20:48 | XMS_ITS | Encounter Summary ---
Author Organization [employer] Address [address] [place] [address] 7 [place] [address] Care Team Providers Care Charity Fundraiser Name Role Phone Amna Urrutia Primary Care Provider [phone] Name, Everett ROSE Primary Care Provider [phone] Sahil Chen CNP Primary Care Provider [phone] Reason for Visit * Reason Onset Date Comments Med Refill 04/29/2023 Encounter Details Date Type Department Care Team (Late st Contact Info) Description 04/29/2023 Refill [facility] [address] [place] [address] [phone] Sandra Leal MD [address] [place] [address] [phone] Social History Tobacco Use Types Packs/Day Years [...] Description 12/27/2024 11:15 AM EDT Office Visit [facility] [address] [place] [address] [phone] Sahil Chen CNP [address] [place] [address] documented as of this encounter Visit Diagnoses Not on filedocumented in this encounter Additional Health Concerns Assessment Noted Time PHQ-9 Depression Total Score: 16 023 8:52 AM EDT documented as of this encounter Care Teams Charity Fundraiser Relationship Specialty Start Date End Date Amna Urrutia FNP [address] [place], [place] [phone] PCP - General Family Medicine 01/01/23 04/18/24 Name, MD Everett [address] [place], [place] [phone] PCP - General Internal Medicine 04/19/24 10/08/24 Sahil Chen CNP [address] [place], [place] [phone] PCP - General Family Medicine 10/09/24 Chris Pack Jr Sustainability CommunicatorTallow Refiner 09/04/24 documented as of this encounter
--- OUTSIDE RECORDS SUMMARY | 2024-12-02 20:48 | XMS_ITS | Encounter Summary ---
Author Organization [employer] Address [address] [facility] [address] 7t [place] [address] Care Team Providers Care Picking Belt Operator Name Role Phone Amna Urrutia Primary Care Provider Adele, Everett ROSE Primary Care Provider [phone] Sahil Chen CNP Primary Care Provider [phone] Reason for Visit * Reason Onset Date Comments reaction to medication 10/24/2022 Encounter Details Date Type Department Care Team ([facility] st Contact Info) Description 10/24/2022 Telephone [facility] ADULT DENTAL [address] [place] [address] Marycruz Oseguera DDS [address] [place] [address] reaction to medication Social History Tobacco Use [...] Visit [facility]INE [address] [place] [address] [phone] Sahil Chen CNP [address] [place] [address] documented as of this encounter Visit Diagnoses Not on filedocumented in this encounter Care Teams Picking Belt Operator Relationship Specialty Start Date End Date Amna Urrutia FNP [address] [place] [address] PCP - General Family Medicine 01/01/23 04/18/24 Everett Angulo MD [address] [place] [address] PCP - General Internal Medicine 04/19/24 10/08/24 Sahil Chen CNP [address] [place] [address] PCP - General Family Medicine 10/09/24 Chris Pack Jr Lye Machine OperatorMarketing Communications Manager 09/04/24 documented as of this encounter
--- OUTSIDE RECORDS SUMMARY | 2024-12-02 20:48 | XMS_ITS | Encounter Summary ---
Author Organization [employer] Address [address] [facility] 7t [place] [address] Care Team Providers Care Loss Prevention Manager Name Role Phone Amna Urrutia Primary Care Provider [phone] Name, Everett ROSE Primary Care Provider [phone] Sahil Chen CNP Primary Care Provider [phone] Reason for Visit * Reason Onset Date Comments Med Refill 05/01/2023 Encounter Details Date Type Department Care Team (Late st Contact Info) Description 05/01/2023 Refill [facility] [address] [place] [address] Lakshmi Womack FNP [address] [place] [address] Type 1 diabetes mellitus with hyperglycemia ([facility]) Social History Tobacco Use Types [...] 11:15 AM EDT Office Visit [facility] [address] [place] [address] Sahil Chen CNP [address] [place] [address] documented as of this encounter Visit Diagnoses Diagnosis Type 1 diabetes mellitus with hyperglycemia (CMS/HCC) documented in this encounter Additional Health Concerns Assessment Noted Time PHQ-9 Depression Total Score: 16 023 8:52 AM EDT documented as of this encounter Care Teams Loss Prevention Manager Relationship Specialty Start Date End Date Amna Urrutia FNP [address] [place] [address] PCP - General Family Medicine 01/01/23 04/18/24 Name, MD Everett [address] [place] [address] PCP - General Internal Medicine 04/19/24 10/08/24 Sahil Chen CNP [address] [place] [address] PCP - General Family Medicine 10/09/24 Chris Pack Jr Vaccine SpecialistCampus Chaplain 09/04/24 documented as of this encounter
--- OUTSIDE RECORDS SUMMARY | 2024-12-02 20:48 | XMS_ITS | Clinical Summary ---
Author Organization [facility] it Address [address] [place] [address] Care Team Providers Care Special Inspector Name Role Phone Unavailable Primary Care Provider [...]
--- OUTSIDE RECORDS SUMMARY | 2024-12-02 20:48 | XMS_ITS | Encounter Summary ---
Author Organization [employer] Address [address] [facility] 7t [place] [address] Care Team Providers Care Coordinator Of Library Services Name Role Phone Amna Urrutia Primary Care Provider [phone] Name, Everett ROSE Primary Care Provider [phone] Sahil Chen CNP Primary Care Provider [phone] Reason for Visit * Reason Onset Date Comments Med Refill 05/03/2023 Encounter Details Date Type Department Care Team (Late st Contact Info) Description 05/03/2023 Refill [facility] [address] [place] [address] Amna Urrutia FNP [address] [place] [address] Type 1 diabetes mellitus with hyperglycemia ([facility]/HCC) Social History Tobacco Use Types Packs/Day Years [...] Description 12/27/2024 11:15 AM EDT Office Visit [facility] [address] [place] [address] Sahil Chen CNP [address] [place] [address] documented as of this encounter Visit Diagnoses Diagnosis Type 1 diabetes mellitus with hyperglycemia (CMS/HCC) documented in this encounter Additional Health Concerns Assessment Noted Time PHQ-9 Depression Total Score: 16 023 8:52 AM EDT documented as of this encounter Care Teams Coordinator Of Library Services Relationship Specialty Start Date End Date Amna Urrutia FNP [address] [place] [address] PCP - General Family Medicine 01/01/23 04/18/24 Name, MD Everett [address] [place] [address] PCP - General Internal Medicine 04/19/24 10/08/24 Sahil Chen CNP [address] [place] [address] PCP - General Family Medicine 10/09/24 Chris Pack Jr Car ServicerOwner Consulting Engineer 09/04/24 documented as of this encounter
--- OUTSIDE RECORDS SUMMARY | 2024-12-02 20:48 | XMS_ITS | Encounter Summary ---
Author Organization [employer] Address [address] [place] [address] 7 [place] [address] Care Team Providers Care Dog License Officer Supervisor Name Role Phone Amna Urrutia Primary Care Provider [phone] Name, Everett ROSE Primary Care Provider [phone] Sahil Chen CNP Primary Care Provider [phone] Reason for Visit * Reason Onset Date Comments Med Refill 03/21/2023 Encounter Details Date Type Department Care Team (Late Contact Info) Description 03/21/2023 Refill [facility] MED[facility] [address] [place] [address] [phone] Amna Urrutia FNP [address] [place], [place] [phone] Social History Tobacco Use Types Packs/Day Years [...] Description 12/27/2024 11:15 AM EDT Office Visit [facility] [address] [place] [address] Sahil Chen CNP [address] [place], [place] [phone] documented as of this encounter Visit Diagnoses Not on filedocumented in this encounter Additional Health Concerns Assessment Noted Time PHQ-9 Depression Total Score: 7 01/07/20 23 9:10 AM EDT documented as of this encounter Care Teams Dog License Officer Supervisor Relationship Specialty Start Date End Date Amna Urrutia FNP [address] [place], [place] [phone] PCP - General Family Medicine 01/01/23 04/18/24 Everett Angulo MD [address] [place], [place] [phone] PCP - General Internal Medicine 04/19/24 10/08/24 Sahil Chen CNP [address] [place], [place] [phone] PCP - General Family Medicine 10/09/24 Chris Pack Jr Mold EngraverAnimal Care Service Worker 09/04/24 documented as of this encounter
--- OUTSIDE RECORDS SUMMARY | 2024-12-02 20:48 | XMS_ITS | Encounter Summary ---
Author Organization [facility] Address [address] [place] [address] Phone Care Team Providers Care Signal Person Name Role Phone Santos Mueller MD Primary Care Provider [phone] Encounter Details Date Type Department Care Team (Late st Contact Info) Description 08/05/2024 Documentation Only [facility] [place], [address] [place] [address] Jessica Sprague [address] [place] [address] Social History Tobacco Use Types [...] on filedocumented in this encounter Care Teams Signal Person Relationship Specialty Start Date End Date Santos Mueller MD [address] [place] [address] PCP - General Emergency Medicine 07/28/23 documented as of this encounter
--- OUTSIDE RECORDS SUMMARY | 2024-12-02 20:48 | XMS_ITS | Encounter Summary ---
Author Organization [facility] Address [address] [place] [address] Phone Care Team Providers Care Electronic Warfare Operator Name Role Phone Santos Mueller MD Primary Care Provider [phone] Encounter Details Date Type Department Care Team (Late st Contact Info) Description 08/05/2024 Documentation Only [facility] [place], [address] [place] [address] Jessica Sprague [address] [place] [address] Social History Tobacco Use Types [...] on filedocumented in this encounter Care Teams Electronic Warfare Operator Relationship Specialty Start Date End Date Santos Mueller MD [address] [place] [address] PCP - General Emergency Medicine 07/28/23 documented as of this encounter
--- OUTSIDE RECORDS SUMMARY | 2024-12-02 20:48 | XMS_ITS | Encounter Summary ---
Author Organization [employer] Address [address] [facility] 7t [place] [address] Care Team Providers Care Altitude Chamber Technician Name Role Phone Amna Urrutia Primary Care Provider [phone] Adele, Everett ROSE Primary Care Provider Sahil Chen CNP Primary Care Provider [phone] Reason for Visit * Reason Onset Date Comments Med Refill 07/17/2023 Encounter Details Date Type Department Care Team (Late st Contact Info) Description 07/17/2023 Refill [facility] [address] [place] [address] Sandra Leal MD [address] [place] [address] Social History Tobacco Use Types Packs/Day Years [...] EDT Office Visit [facility] [address] [place] [phone] Sahil Chen CNP [address] [place] [address] documented as of this encounter Visit Diagnoses Not on filedocumented in this encounter Additional Health Concerns Assessment Noted Time PHQ-9 Depression Total Score: 16 023 8:52 AM EDT documented as of this encounter Care Teams Altitude Chamber Technician Relationship Specialty Start Date End Date Amna Urrutia FNP [address] [place] [address] PCP - General Family Medicine 01/01/23 04/18/24 Everett Angulo MD [address] [place] [address] PCP - General Internal Medicine 04/19/24 10/08/24 Sahil Chen CNP [address] [place] [address] PCP - General Family Medicine 10/09/24 Chris Pack Jr Turret Lathe Set Up OperatorDobby Loom Fixer 09/04/24 documented as of this encounter
--- OUTSIDE RECORDS SUMMARY | 2024-12-02 20:48 | XMS_ITS | Encounter Summary ---
Author Organization [email or web address] Address [address] [facility] 7t [place] [address] Care Team Providers Care Zumba Instructor Name Role Phone Amna Urrutia Primary Care Provider [phone] Name, Everett ROSE Primary Care Provider [phone] Sahil Chen CNP Primary Care Provider [phone] Encounter Details Date Type Department Care Team (Late Contact Info) Description 10/21/2022 Abstract [facility]ULT [facility] [address] [place] [address] Marycruz Oseguera DDS [address] [place] [address] Social History Tobacco Use Types Packs/Day Years [...] 12/27/2024 11:15 AM EDT Office Visit [facility] [address] [place] [address] Sahil Chen CNP [address] [place] [address] documented as of this encounter Visit Diagnoses Not on filedocumented in this encounter Care Teams Zumba Instructor Relationship Specialty Start Date End Date Amna Urrutia FNP [address] [place], [place] [phone] PCP - General Family Medicine 01/01/23 04/18/24 Name, MD Everett [address] [place], [place] [phone] PCP - General Internal Medicine 04/19/24 10/08/24 Sahil Chen CNP [address] [place], [place] [phone] PCP - General Family Medicine 10/09/24 Chris Pack Jr Double Bottom DriverDesign Printing Machine Set Up Operator 09/04/24 documented as of this encounter
== END 2024-12-02 22:50 | disposition left against medical advice (07) ==
PROVIDERS: Emergency Provider Emergency Medicine
DX: M79.672 Pain in left foot (principal)
CPT/HCPCS: 73660; 99281

== ENCOUNTER → 2024-12-02 19:37 | Outpatient (BNV) | payer MEDICAID, SELFPAY | PROVIDERS: Visit Provider Radiology Diagnostic Radiology | DX: S90.112A Contusion of left great toe without damage to nail, initial encounter (principal); S92.424A Nondisplaced fracture of distal phalanx of right great toe, initial encounter for closed fracture | CPT/HCPCS: 73660 ==

== ENCOUNTER 2024-12-04 12:07 | Emergency (ER) | payer MEDICAID, SELFPAY ==
--- NOTE | 2024-12-04 12:11 | ED_ITS ---
HPI - General Adult General Chief complaint: Headache Stated complaint: Nausea and headache x2 days Time Seen by Provider: 12/04/24 12:10 Source: patient and EMS Mode of arrival: EMS Limitations: no limitations History of Present Illness ED Provider: Nieves Aguilar PA-C HPI narrative: Patient is a 29 year old assigned male at with a history of DM, GERD, timbo esophagus, gastroparesis, and migraines presenting to the emergency department today with a headache, nausea, and dizziness. Patient states that over the last day he has had a headache, nausea, and dizziness. Patient states that he was recently working as the [employer] and believes that he caught something from inside the mask / head. Patient denies any lightheadedness, abdominal pain, vomiting, fever, chills, blurry vision, double vision, loss of vision, chest pain, difficulty breathing, shortness of breath, back pain, night sweats, pain with urination, increased urinary frequency, increased urinary urgency, blood in his urine or stool, syncope or a near syncopal episode, recent trauma or falls, bowel incontinence, bladder incontinence, or any other complaints at this time. Onset (ago): day(s) Relieving factors: none Exacerbating factors: none Associated symptoms: nausea/vomiting Treatments prior to arrival: none Related Data Home Medications ?Medication ?Instructions ?Recorded ?Confirmed pantoprazole 40 mg tablet,delayed 40 mg PO DAILY@0630 12/19/22 06/01/23 release (Protonix) promethazine 25 mg tablet 25 mg PO TID PRN nausea/vomiting 01/23/23 06/01/23 acetaminophen 500 mg tablet 500 mg PO Q6H PRN 04/09/24 Previous Rx's ?Medication ?Instructions ?Recorded albuterol sulfate 90 mcg/actuation 2 puff inhalation QID PRN 04/13/24 aerosol inhaler shortness of breath or wheezing #6.7 grams cyclobenzaprine 10 mg tablet 10 mg PO TID #10 tabs 05/07/24 acetone (urine) test (Ketone Urine #25 ea 06/19/24 Test strips) blood-glucose sensor (Dexcom G7 #6 ea 06/19/24 Sensor device) blood-glucose,brim welt sewing machine operator,cont #1 ea 06/19/24 (Dexcom G7 Battery Technician) glucagon 3 mg/actuation nasal 3 mg intranasal ONCE PRN 06/19/24 spray (Baqsimi) unresponsive hypoglycemia 30 days #2 ea insulin degludec 200 unit/mL (3 20 unit (0.1 mL) subcut DAILY 30 10/11/24 mL) subcutaneous pen (Tresi #6 mL FlexTouch U-200 insulin) ondansetron 4 mg disintegrating 4 mg PO Q8H PRN nausea and 10/11/24 tablet vomiting #20 tabs Novolog FlexPen U-100 Insulin 100 1 sliding scale dose subcut 11/07/24 unit/mL (3 mL) subcutaneous TIDWMEAL 30 days #9 mL (insulin aspart U-100) Allergies Allergy/AdvReac Type Severity Reaction Status Date / Time diphenhydramine Allergy Anaphylaxis Verified 12/04/24 12:45 [From Benadryl] haloperidol [From Haldol] Allergy Difficulty Verified 12/04/24 12:45 Swallowing lorazepam [From Ativan] AdvReac Difficulty Verified 12/04/24 12:45 Breathing metoclopramide [From Reglan] AdvReac Anxiety Verified 12/04/24 12:45 Review of Systems 2 Constitutional: Constitutional: Reports no additional constitutional complaints, Denies chills, Denies fever(s), Reports headache(s) and Denies night sweats Eyes: Eyes: Reports no additional eye complaints, Denies blurry vision, Denies change in vision, Denies diplopia, Denies eye discharge, Denies loss of vision and Denies eye pain ENT: Reports dizziness and Reports headache(s) Cardiovascular: Cardiovascular: Reports no additional cardiovascular complaints, Denies chest pain, Denies lightheadedness, Denies Loss of Consciousness and Denies dyspnea Respiratory: Respiratory: Reports no additional respiratory complaints and Denies dyspnea Gastrointestinal: Gastrointestinal: Reports no additional gastrointestinal complaints, Denies abdominal pain, Denies melena, Denies hematochezia, Denies change in bowel habits, Denies change in stool character and Reports nausea Genitourinary: Genitourinary: Reports no additional male genitourinary complaints, Denies hematuria, Denies oliguria, Denies difficulty urinating, Denies dysuria, Denies urinary frequency, Denies urinary hesitancy, Denies urinary incontinence and Denies urinary urgency Musculoskeletal: Musculoskeletal: Reports no additional musculoskeletal complaints, Denies numbness and Denies tingling Comments: left great toe pain Neurologic: Reports dizziness, Reports headache(s), Denies loss of vision, Denies numbness and Denies tingling Psychiatric: Psychiatric: Reports no additional psychiatric complaints Endocrine: Endocrine: Reports no additional endocrine complaints Hematologic/Lymphatic: Hematologic/Lymphatic: Reports no additional hematologic/lymphatic complaints Allergic/Immunologic: Allergic/Immunologic: Reports no additional allergic/immunologic complaints PMFSH Past Medical History Attestation statement: The following information was validated with the patient. Source: old records reviewed and nursing notes reviewed Medical History Abdominal pain Dental infection Colitis DKA (diabetic ketoacidosis) Hyperglycemia 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 type 1 Surgical History History of esophagogastroduodenoscopy (EGD) Family History Family History Paternal Grandmother Breast cancer Family/Other Brain cancer Social History Social History Household Members: Other Household Members Other:: cousin Housing: House Do you presently have visiting nurse or other home services: No Alcohol intake: current Alcohol intake frequency: holidays/special occasions only Patient Tobacco Use Status: Current everyday Tobacco user Tobacco use type: Cigarette Cigarette Packs Per Day: 0 Cigarettes Per Day: 0 Years Smoked: 10 e-Cigarette/Vaping Use: Never Used Second Hand Smoke Exposure: No Substance Use Type: Marijuana Advance Directives: No Advance Directives Information Provided: Yes service: No Current occupational status: employed 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 Physical Exam ED Vital Signs: Vital Signs - 24 hr 12/04/24 12:43 12/04/24 15:35 12/04/24 16:07 Temperature 98.8 F 98.2 F 98.2 F Pulse Rate 96 88 88 Respiratory Rate 14 16 16 Blood Pressure 120/75 117/85 117/85 Pulse Oximetry 100 99 99 Oxygen Delivery Method Room Air Room Air Room Air BMI result Body Mass Index 21.7 Const General: cooperative, no acute distress, alert and awake Nutritional Appearance: well nourished Orientation/consciousness: patient oriented x3 Limitations: no limitations HENMT Head: Yes normal to inspection and Yes atraumatic Ears: hearing grossly normal bilaterally and external ears normal General nose exam: Normal external nose present, no nasal discharge noted and no epistaxis Face and sinus: Yes normal facial exam, No abrasion and No laceration Mouth: Normal oral and palatal mucosa present, no drooling and no muffled voice Eyes General: appearance normal, both eyes and all related structures Periorbital: periorbital findings normal Eyelids: Yes eyelids normal Conjunctivae: conjunctivae normal Pupils: Equal, round and reactive pupils present EOM: EOMs intact bilaterally Neck Neck: Yes normal visual inspection, Yes full ROM and Yes no lymphadenopathy Chest Chest palpation & inspection: normal inspection of the chest Resp Effort & Inspection: normal respiratory effort and able to speak in complete sentences GI Inspection: Yes normal to inspection Neuro General: patient oriented x3, moves all extremities and CN's II-XI intact bilaterally Cranial nerves: Yes Equal, round and reactive pupils present Cognition (Neuro): normal cognition Extrem General: Yes normal to inspection, Yes full ROM and Yes capillary refill normal Psych Appearance: grossly normal Mental Status: mental status grossly normal Affect: normal affect Attitude: cooperative Thought process: Normal thought process present Thought content: Normal thought content present Insight: Good insight present (Psych) Medications Administered Discontinued Medications Generic Name Dose Route Start Last Admin Trade Name Freq PRN Reason Stop Dose Admin Sodium Chloride 1,000 mls @ 999 mls/hr 12/04/24 12:15 12/04/24 12:29 Ns IV 12/04/24 13:15 999 mls/hr .Q1H1M JELENA Administration Morphine Sulfate 4 mg 12/04/24 15:34 12/04/24 16:04 Morphine Sulfate 4 Mg/Ml Cartridge IVPUSH 12/04/24 15:35 4 mg ONCE ONE Administration Protocol Ondansetron HCl 4 mg 12/04/24 12:12 12/04/24 12:29 Ondansetron Hcl 4 Mg/2 Ml Vial IVPUSH 12/04/24 12:13 4 mg ONCE ONE Administration Ondansetron HCl 4 mg 12/04/24 15:34 12/04/24 16:04 Ondansetron Hcl 4 Mg/2 Ml Vial IVPUSH 12/04/24 15:35 4 mg ONCE ONE Administration Procedures Orthopedic Splinting/Casting Injury #1: Side: left Lower Extremity Injury Location: toe (great) Lower Extremity Immobilizer: boot orthosis Medical Decision Making Medical Decision Making [facility] Narrative: Patient is a 29 year old assigned male at with a history of DM, GERD, timbo esophagus, gastroparesis, and migraines presenting to the emergency department today with a headache, nausea, and dizziness. Patient's physical exam was unremarkable. Patient's blood work was unremarkable. Patient's EKG was unremarkable. Patient's left toe x-ray from 12/02/2024 showed a left great toe fracture. I explained my physical exam findings as well as all test results to the patient. I answered all questions asked by the patient. I explained to the patient that his left great toe is fractured from 12/02/2024 when he was evaluated in the emergency department but left without completing treatment. Patient received IV Morphine, fluids, and Zofran which, upon re-evaluation, he stated it helped his symptoms significantly. Patient left foot was placed in a walking boot, without incident. Patient's PMS was intact prior to and after boot placement. I stressed the importance of the patient taking his medication as directed (either prescribed or as the over the counter packaging recommends). I stressed the importance of the patient following up with his primary care provider and the orthopedic team. I stressed the importance of the patient returning to the emergency department immediately if his symptoms were to worsen or if he were to develop any dizziness, shortness of breath, difficulty breathing, chest pain, blurry vision, loss of vision, nausea, vomiting, abdominal pain, fever, chills, back pain, or any other complaints. Patient verbalized agreement and understanding with this treatment plan and discharge. Differential Diagnosis Differential Diagnoses: The differential diagnosis associated with the presentation includes Toe fracture Migraine Nausea DKA Admission/Observation Consideration of admission/observation: Escalation of care including admission/observation considered Patient would have been admitted to the hospital had his work up had any findings where hospital admission was appropriate and his clinical presentation warranted hospital admission. Lab Data [facility] Lab Attestation statement: I reviewed the patient's lab results. My interpretation of these results are in the [facility] Rationale portion of this note. 12/04/24 12:33 12/04/24 14:40 Labs: Lab Results 12/04/24 12/04/24 Range/Units 12:33 14:40 WBC 6.9 (4.8-10.8) X10*3/uL RBC 5.58 (4.60-5.80) X10*6/uL Hgb 14.4 (14.0-18.0) g/dl Hct 44.1 (42.0-52.0) % MCV 79.0 L (80.0-98.0) fL MCH 25.8 L (27.0-33.0) pg MCHC 32.7 (31.0-36.0) g/dl RDW 14.6 (11.0-16.0) % Plt Count 266 (160-400) X10*3/uL MPV 9.9 (9.4-12.4) fL Immature Gran % (Auto) 0.3 (0.0-0.4) % Neut % (Auto) 63.3 (45-73) % Lymph % (Auto) 28.8 (20-40) % Quay % (Auto) 4.7 (2-11) % Eos % (Auto) 1.9 (0-4) % Baso % (Auto) 1.0 (0-2) % Lymph # (Auto) 2.0 (1.2-4.9) X10*3/uL Quay # (Auto) 0.3 (0.1-1.2) X10*3/uL Eos # (Auto) 0.1 (0.0-0.4) X10*3/uL Baso # (Auto) 0.1 (0.0-0.2) X10*3/uL Abs Immat Gran (auto) 0.02 (0.00-0.03) X10*3/uL Absolute Neuts (auto) 4.4 (2.0-8.3) x10*3/uL Absolute Nucleated RBC 0.000 (0.0-0.012) X10*3/uL Nucleated RBC % (auto) 0.0 (0.0-0.2) /100WBC PT 12.7 H (10.9-12.4) SEC INR 1.1 (0.9-1.1) Sodium 138 (135-145) mmol/L Potassium 4.5 (3.3-5.1) mmol/L Chloride 105 (96-108) mmol/L Carbon Dioxide 25 (22-29) mmol/L Anion Gap 13 (12-20) BUN 22 H (9-16) mg/dL Creatinine 0.69 (0.5-1.4) mg/dL Estim Creat Clear Calc 137.5 Estimated GFR > 60 Random Glucose 106 (60-115) mg/dL Calcium 9.8 (8.4-10.2) mg/dL Magnesium 1.9 (1.6-2.6) mg/dL Total Bilirubin 0.7 (0.0-1.0) mg/dL AST 18 (5-37) U/L ALT 10 (0-40) U/L Alkaline Phosphatase 77 (39-117) U/L Troponin I High Sens < 2.7 (<3.5-35.0) ng/L Total Protein 7.0 (6.5-8.0) g/dL Albumin 4.0 (3.5-5.0) g/dL Beta-Hydroxybutyrate 1.12 H (0.02-0.27) mmol/L Influenza Type A (PCR) NEGATIVE (Negative) Influenza Type B (PCR) NEGATIVE (Negative) RSV RNA Qual (PCR) NEGATIVE (Negative) SARS-CoV-2 RNA (RT-PCR) NEGATIVE (Negative) S. pyogenes GrpA STARLA Negative (Negative) Independent Interpretation I performed an independent interpretation of an: EKG and Plain X-Ray Interpretation: My interpretation is in agreement with the radiologist's impression of this imaging study. L CLINICAL HISTORY: pain to L great toe s p injury 4 view left great toe Comparison: None Findings: There is a subtle lucency through the proximal medial and of the distal phalanx of the great toe extending to the articular surface. There is also bony spurring at the medial proximal aspect of the distal phalanx. Joint spaces are preserved. No erosions. No radiopaque foreign body. IMPRESSION: Findings suspicious for nondisplaced intra-articular oblique fracture of the distal phalanx of the great toe. This document has been electronically signed by: You Haro MD on 12/02/2024 20:58:27 Dictated By: You Haro MD Signed By: Electronically signed by You Haro MD 12/02/242058 I independently interpreted this EKG and am in agreement with the below findings: Vent. Rate: 86 BPM Atrial Rate: 86 BPM P-R Int: 120 ms QRS Dur: 92 ms QT Int: 346 ms P-R-T Axes: 84 -69 51 degrees QTcB Int: 414 ms Normal sinus rhythm Left anterior fascicular block When compared with ECG of 11-Oct-2024 18:00, Left anterior fascicular block is now Present Criteria for Inferior infarct are no longer Present DD/ 1241 Radiology Impression Discussion of test interpretation with radiology: I have reviewed the radiologist's reading. Independent Historian Clinical information obtained from an independent historian. History obtained from or confirmed by: EMS (EMS provided additional history and confirmed the history provided by the patient.) Chronic Conditions Patient?s care impacted by: Diabetes Critical Care Time Critical Care Time Critical Care Time: Yes Total Critical Care Time: 34 Attestation: I spent 34 minutes of Critical Care Time with this patient. This does not include time spent on separately reported billable procedures. Discharge Plan Discharge Clinical Impression: Fracture of toe, Migraine Patient Disposition: Home, Self-Care Instructions: Migraine Headache (ED), Foot Fracture in Adults (ED), Walking Boot (ED) Additional Instructions: Follow up with your primary care provider and an orthopedic provider. Return to the emergency department immediately if your symptoms worsen or if you develop any numbness, tingling, dizziness, shortness of breath, difficulty breathing, chest pain, blurry vision, loss of vision, nausea, vomiting, abdominal pain, fever, chills, back pain, or any other complaints. Please see the information below about our Patient Portal. If you are not yet enrolled in the [facility] Patient Portal, you will receive an enrollment email invitation following your visit to any [facility] care setting. You may also self-enroll in the Patient Portal by visiting our website: [email or web address] The following information is required to access the Patient Portal: - Your [facility] Medical Record Number - Your personal home email address (must match what is in your electronic medical record, Registration staff can assist with this) - Name - Date of Capabilities of the Patient Portal: - Message some providers - View upcoming appointments - Access your health summary, medical history, and visit history - View current conditions and allergies - View procedure and lab results - View your medications, including guidelines, side effects, and precautions - Complete pre-appointment questionnaires requested by your provider - Ready summary reports of your office visits and procedures To access the Patient Portal Mobile Bay, follow these directions: - Search [employer] in the Bay Store or [employer] Store - Download the Bay - Search for [facility] - Enter your login/password Prescriptions: No Action (DME) Dexcom G7 Sensor Device See Rx Instructions .ROUTE .MEDSUPPLY Qty: 6 6RF Rx Instructions: As directed every 10 days (DME) Dexcom G7 Battery Technician Misc See Rx Instructions .ROUTE .MEDSUPPLY Qty: 1 1RF Rx Instructions: As directed (DME) Ketone Urine Test Strip See Rx Instructions .ROUTE .MEDSUPPLY Qty: 25 3RF Rx Instructions: As directed prn glucose over 250, nausea/vomiting tid Baqsimi 3 mg/actuation spray,non-aerosol 3 mg intranasal ONCE MDD 6mg may repeat in 15 minutes PRN (Reason: unresponsive hypoglycemia) 30 Days Qty: 2 1RF insulin degludec [Tresiba FlexTouch U-200] 200 unit/mL (3 mL) insulin pen 20 unit subcut DAILY 30 Days Qty: 6 2RF insulin aspart U-100 [Novolog FlexPen U-100 Insulin] 100 unit/mL (3 mL) insulin pen 1 sliding scale dose subcut TIDWMEAL MDD 25 units 30 Days Qty: 9 11RF Rx Instructions: 1 unit for every 35 points over 135 1 unit for every 15 carbohydrates pantoprazole [Protonix] 40 mg tablet,delayed release (DR/EC) 40 mg PO DAILY@0630 promethazine 25 mg tablet 25 mg PO TID PRN (Reason: nausea/vomiting) ondansetron 4 mg tablet,disintegrating 4 mg PO Q8H PRN (Reason: nausea and vomiting) Qty: 20 0RF albuterol sulfate 90 mcg/actuation HFA aerosol inhaler 2 puff inhalation QID PRN (Reason: shortness of breath or wheezing) Qty: 6.7 0RF cyclobenzaprine 10 mg tablet 10 mg PO TID Qty: 10 0RF acetaminophen 500 mg tablet 500 mg PO Q6H PRN Referrals: [facility] [Provider Group] (Call to establish and follow up with an orthopedic provider for your toe fracture. ) [place] [Primary Care Provider] - Interventions: ED Discharge Assessment Last Done: 12/04/24 16:07 Discharge Date/Time: 12/04/24 16:21 Print Language: Bulgarian
--- NOTE | 2024-12-04 12:12 | ECG_ITS ---
Test Reason : nausea/vomiting Blood Pressure : */* mmHG Vent. Rate : 86 BPM Atrial Rate : 86 BPM P-R Int : 120 ms QRS Dur : 92 ms QT Int : 346 ms P-R-T Axes : 84 -69 51 degrees QTcB Int : 414 ms Normal sinus rhythm Left anterior fascicular block Abnormal ECG When compared with ECG of 11-Oct-2024 18:00, Left anterior fascicular block is now Present Criteria for Inferior infarct are no longer Present Referred By: Nieves Aguilar Electronically Signed By: ESTRELLA ELIAS MD
[2024-12-04 12:22] VITALS: BP 110/76; PULSE 100; O2SAT 98
[2024-12-04] MEDS: ondansetron HCL 4 MG/2 ML VIAL IVPUSH ×2 (12:29→16:04)
[2024-12-04] MEDS: 0.9 % Sodium Chloride 1,000 ML 999 ML IV (12:29)
[2024-12-04 12:43] VITALS: BP 120/75; PULSE 96; RESP 14; TEMP 37.1; O2SAT 100; BMI 21.7
[2024-12-04 12:46] LABS: MANUAL DIFF FLAG NO
[2024-12-04 12:47] LABS: Basophils Absolute Auto 0.1 X10*3/uL (0.0-0.2); Eosinophils Absolute Auto 0.1 X10*3/uL (0.0-0.4); Eosinophils Percent Auto 1.9 % (0-4); Hematocrit 44.1 % (42.0-52.0); Hemoglobin 14.4 g/dl (14.0-18.0); Imm Gran Abs Auto 0.02 X10*3/uL (0.00-0.03); Imm Gran Pct Auto 0.3 % (0.0-0.4); Lymphocytes Percent Auto 28.8 % (20-40); Mean Corpuscular HGB Conc 32.7 g/dl (31.0-36.0); Mean Corpuscular Hemoglobin 25.8 pg (27.0-33.0); Mean Platelet Volume 9.9 fL (9.4-12.4); Monocytes Absolute Auto 0.3 X10*3/uL (0.1-1.2); Monocytes Percent Auto 4.7 % (2-11); Neutrophils Absolute Auto 4.4 x10*3/uL (2.0-8.3); Neutrophils Percent Auto 63.3 % (45-73); Platelet Count 266 X10*3/uL (160-400); Red Blood Count 5.58 X10*6/uL (4.60-5.80); Red Cell Distribution Width 14.6 % (11.0-16.0); White Blood Count 6.9 X10*3/uL (4.8-10.8)
[2024-12-04 12:51] LABS: INTERNATIONAL NORM RATIO 1.1 (0.9-1.1); Prothrombin Time 12.7 SEC (10.9-12.4)
[2024-12-04 13:04] LABS: IDNOW Serial# 55D5AD1C; Strep A Nucleic Acid Negative (Negative)
[2024-12-04 14:10] LABS: Influenza A PCR NEGATIVE (Negative); Influenza B PCR NEGATIVE (Negative); Resp Syncy Virus RNA Qual PCR NEGATIVE (Negative); SARS COV2 PCR INHOUSE NEGATIVE (Negative)
--- OUTSIDE RECORDS SUMMARY | 2024-12-04 15:19 | XMS_ITS | Encounter Summary ---
Author Organization [employer] Address [address] [place] [address] Care Team Providers Care Sales Team Member Name Role Phone Amna Urrutia Primary Care Provider [phone] Name, Everett ROSE Primary Care Provider [phone] Sahil Chen CNP Primary Care Provider [phone] Reason for Visit * Reason Onset Date Comments Med Refill 09/27/2023 Encounter Details Date Type Department Care Team (Late st Contact Info) Description 09/27/2023 Refill [facility] [address] [place], [place] [phone] Amna Urrutia FNP [address] [place] [address] Type 1 diabetes mellitus with hyperglycemia ([facility]/HCC) Social History Tobacco Use Types Packs/Day Years [...] 11:15 AM EDT Office Visit [facility] [address] [place] [address] Sahil Chen CNP [address] [place] [phone] documented as of this encounter Visit Diagnoses Diagnosis Type 1 diabetes mellitus with hyperglycemia (CMS/HCC) documented in this encounter Additional Health Concerns Assessment Noted Time PHQ-9 Depression Total Score: 16 023 8:52 AM EDT documented as of this encounter Care Teams Sales Team Member Relationship Specialty Start Date End Date Amna Urrutia FNP [address] [place] [address] PCP - General Family Medicine 01/01/23 04/18/24 Everett Angulo MD [address] [place] [address] PCP - General Internal Medicine 04/19/24 10/08/24 Sahil Chen CNP [address] [place] [address] PCP - General Family Medicine 10/09/24 Chris Pack Jr Cafeteria DirectorAgricultural Engineering Teacher 09/04/24 documented as of this encounter
--- OUTSIDE RECORDS SUMMARY | 2024-12-04 15:19 | XMS_ITS | Encounter Summary ---
Author Organization [employer] Address [address] [place] [address] Care Team Providers Care Green Meat Grader Name Role Phone Name, Everett ROSE Primary Care Provider [phone] Sahil Chen CNP Primary Care Provider [phone] Reason for Visit * Reason Comments Med Refill Encounter Details Date Type Department Care Team (Late st Contact Info) Description 05/03/2024 Refill [facility] [address] [place], [place] [phone] Amna Urrutia FNP [address] [place] [address] Type 1 diabetes mellitus with hyperglycemia (CMS/[facility]) Social History Tobacco Use Types [...] AM EDT Office Visit [facility] [address] [place] [phone] Sahil Chen CNP [address] [place] [address] documented as of this encounter Visit Diagnoses Diagnosis Type 1 diabetes mellitus with hyperglycemia (CMS/HCC) documented in this encounter Additional Health Concerns Assessment Noted Time PHQ-9 Depression Total Score: 20 024 2:42 PM EDT documented as of this encounter Care Teams Green Meat Grader Relationship Specialty Start Date End Date Name, MD Everett [address] [place] [phone] PCP - General Internal Medicine 04/19/24 10/08/24 Sahil Chen CNP [address] [place] [address] PCP - General Family Medicine 10/09/24 Chris Pack Jr SupervisorHassock Maker 09/04/24 documented as of this encounter
--- OUTSIDE RECORDS SUMMARY | 2024-12-04 15:19 | XMS_ITS | Encounter Summary ---
Author Organization [employer] Address [address] [place] [address] Care Team Providers Care Crew Mess Attendant Name Role Phone Name, Everett ROSE Primary Care Provider Sahil Chen CNP Primary Care Provider [phone] Encounter Details Date Type Department Care Team (Late st Contact Info) Description 04/21/2024 Orders Only [facility] [address] [place], [place] [phone] Amna Urrutia FNP [address] [place], [place] [phone] Social History Tobacco Use Types Packs/Day Years [...] 12/27/2024 11:15 AM EDT Office Visit [facility] [address] [place] [phone] Sahil Chen CNP [address] [place] [address] documented as of this encounter Visit Diagnoses Not on filedocumented in this encounter Additional Health Concerns Assessment Noted Time PHQ-9 Depression Total Score: 20 024 2:42 PM EDT documented as of this encounter Care Teams Crew Mess Attendant Relationship Specialty Start Date End Date Name, MD Everett [address] [place] [address] PCP - General Internal Medicine 04/19/24 10/08/24 Sahil Chen CNP [address] [place] [phone] PCP - General Family Medicine 10/09/24 Chris Pack Jr Chemical Dependency AttendantCounty Or City Auditor 09/04/24 documented as of this encounter
--- OUTSIDE RECORDS SUMMARY | 2024-12-04 15:19 | XMS_ITS | Encounter Summary ---
Author Organization [employer] Address [address] [facility] [facility] [address] [facility] [address] 7t [place] [address] Care Team Providers Care Valet Parker Name Role Phone Amna Urrutia Primary Care Provider [phone] Adele, Everett ROSE Primary Care Provider [phone] Sahil Chen CNP Primary Care Provider [phone] Reason for Visit * Reason Comments Med Refill Encounter Details Date Type Department Care Team ([facility] st Contact Info) Description 08/29/2023 Refill [facility] MEDICINE 230 [place], [place] [phone] Carlos Alberto Villavicencio MD 230 [place], [place] [phone] Type 1 diabetes mellitus with hyperglycemia (CMS/HCC) [...] Description 12/27/2024 11:15 AM EDT Office Visit [facility] MEDICINE [address] [place] [address] Sahil Chen CNP 230 [place] [address] documented as of this encounter Visit Diagnoses Diagnosis Type 1 diabetes mellitus with hyperglycemia (CMS/HCC) documented in this encounter Additional Health Concerns Assessment Noted Time PHQ-9 Depression Total Score: 16 023 8:52 AM EDT documented as of this encounter Care Teams Valet Parker Relationship Specialty Start Date End Date Amna Urrutia FNP [address] [place] [address] PCP - General Family Medicine 01/01/23 04/18/24 Everett Angulo MD [address] [place] [address] PCP - General Internal Medicine 04/19/24 10/08/24 Sahil Chen CNP [address] [place] [address] PCP - General Family Medicine 10/09/24 Chris Pack Jr Set Up Mechanic Heading MachinesAirplane And Engine Inspector 09/04/24 documented as of this encounter
--- OUTSIDE RECORDS SUMMARY | 2024-12-04 15:19 | XMS_ITS | Encounter Summary ---
Author Organization [employer] Address [address] [facility] [address] [facility] [address] 7t [place] [address] Care Team Providers Care Educational Sign Language Interpreter Name Role Phone Amna Urrutia Primary Care Provider [phone] Name, Everett ROSE Primary Care Provider [phone] Sahil Chen CNP Primary Care Provider [phone] Reason for Visit * Reason Comments Med Refill Encounter Details Date Type Department Care Team ([facility] st Contact Info) Description 09/08/2023 Refill [facility] MEDICINE [address] [place], [place] [phone] Amna Urrutia FNP [address] [place] [address] Type 1 diabetes mellitus with hyperglycemia ([facility]) Social History Tobacco Use Types Packs/Day Years [...] Office Visit [facility] MEDICINE [address] [place] [address] Sahil Chen CNP 230 [place] [address] documented as of this encounter Visit Diagnoses Diagnosis Type 1 diabetes mellitus with hyperglycemia (CMS/HCC) documented in this encounter Additional Health Concerns Assessment Noted Time PHQ-9 Depression Total Score: 16 023 8:52 AM EDT documented as of this encounter Care Teams Educational Sign Language Interpreter Relationship Specialty Start Date End Date Amna Urrutia FNP [address] [place] [address] PCP - General Family Medicine 01/01/23 04/18/24 Everett Angulo MD [address] [place] [address] PCP - General Internal Medicine 04/19/24 10/08/24 Sahil Chen CNP [address] [place] [address] PCP - General Family Medicine 10/09/24 Chris Pack Jr Maintenance JourneymanBicycle Repairman 09/04/24 documented as of this encounter
--- OUTSIDE RECORDS SUMMARY | 2024-12-04 15:19 | XMS_ITS | Encounter Summary ---
Author Organization [employer] Address [address] [facility] [address] 7t [place] [address] Care Team Providers Care Alcoholism Worker Name Role Phone Gustavo Delkalyan ZAMORA Primary Care Provider [phone] Encounter Details Date Type Department Care Team (Late st Contact Info) Description 12/04/2024 Orders Only GENERIC EXTERNAL DATA DEPARTMENT Provider, [...] Description 12/27/2024 11:15 AM EDT Office Visit [facility] MEDICINE [address] [place] [address] [phone] Sahil Chen CNP 230 [place], [place] [phone] documented as of this encounter Procedures Procedure Name Priority Date/Time Associated Diagnosis Comments STREP A NUCLEIC ACID Routine 12/04/2024 12:33 PM EDT SARS COV2/INFLUENZA A/B AND RSV RNA QL NAAT Routine 12/04/2024 12:33 PM EDT documented in this encounter Results * SARS-CoV-2 RNA, Influenza A/B, and RSV RNA, Ql NAAT (12/04/2024 12:33 PM EDT) Influenza A PCR NEGATIVE Negative [facility] Influenza B PCR NEGATIVE Negative [facility] Resp Syncy Virus RNA Qual PCR NEGATIVE Negative [facility] SARS COV2 PCR NEGATIVE Negative [facility] Comment:All test results mus t be [...] use by authorized laboratories.Testing performed on the [employer] GeneXpert utilizingreal-time RT-PCR.All SARS CoV2 and positive influenza A/B results arereported to [facility]. 12/04/2024 12:3 3 PM EDT 12/04/2024 12:54 PM EDT Generic External Data Provider LAB MICROBIOLOGY - GENERAL ORDERABLES Final Result Performing Organization Address [facility] Co de Phone Number [facility] [address] [place] [phone] [phone] * Strep A Nucleic Acid (12/04/2024 12:33 PM EDT) IDNOW SERIAL# [id number] [facility] Strep A Nucleic Acid Negative Negative [facility] Comment:All test results mus t be correlated with clinical findings.This test has not been evaluated for monitoring treatment ofinfection.Additional follow-up testing using the culture method isrequired if the result is negative and clinical symptomspersist, or in the event of an acute rheumatic feveroutbreak. 12/04/2024 12:3 3 PM EDT 12/04/2024 12:54 PM EDT Generic External Data Provider LAB MICROBIOLOGY - GENERAL ORDERABLES Final Result Performing Organization Address [facility] de Phone Number [facility] [address] [place] [phone] documented in this encounter Visit Diagnoses Not on filedocumented in this encounter Additional Health Concerns Assessment Noted Time PHQ-9 Depression Total Score: 19 025 3:09 PM EDT documented as of this encounter Care Teams Alcoholism Worker Relationship Specialty Start Date End Date Sahil Chen CNP 230 [place] [address] PCP - General Family Medicine 10/09/24 Chris Pack Jr Assembler ErectorVoltage Regulator Assembler 09/04/24 documented as of this encounter
--- OUTSIDE RECORDS SUMMARY | 2024-12-04 15:19 | XMS_ITS | Encounter Summary ---
Author Organization [employer] Address [address] [facility] 7t [place] [address] Care Team Providers Care Extractions Technologist Name Role Phone Amna Urrutia Primary Care Provider [phone] Name, Everett ROSE Primary Care Provider [phone] Sahil Chen CNP Primary Care Provider [phone] Reason for Visit * Reason Onset Date Comments Nurse Triage 05/30/2023 Encounter Details Date Type Department Care Team ([facility] st Contact Info) Description 05/30/2023 Telephone [facility] MEDICINE 230 [place] [address] Amna Urrutia FNP [address] [place] [address] Nurse Triage Social History Tobacco Use Types [...] obtain discharge summary for patient seen at [facility] 05/29/23 following head injury at work. Scheduled for follow up below Future Appointments Date Time Provider Department Center 05/31/2023 11:30 AM Denice Rubin MD [facility] * Telephone Encounter - Marline Vega RN - 05/30/2023 1:27 PM EDT Call to Bradford Torres, reports having been seen at [facility] 05/29 due to concussion that occurred [...] 11:30 AM Denice Rubin MD [facility] Video visit offer not recorded Positive [...] and states is still in pain ( journalists and other writers was un able to take all details information due to call hanging up ) . Patient advised will forward to triage nursefor follow up. documented in this encounter Plan of Treatment Upcoming Encounters Date Type Department Care Team (Late st Contact Info) Description 12/27/2024 11:15 AM EDT Office Visit [facility] MEDICINE 230 [place] [address] Sahil Chen CNP 230 [place] [address] documented as of this encounter Visit Diagnoses Not on filedocumented in this encounter Additional Health Concerns Assessment Noted Time PHQ-9 Depression Total Score: 16 023 8:52 AM EDT documented as of this encounter Care Teams Extractions Technologist Relationship Specialty Start Date End Date Amna Urrutia FNP [address] [place] [address] PCP - General Family Medicine 01/01/23 04/18/24 Everett Angulo MD [address] [place] [address] [phone] PCP - General Internal Medicine 04/19/24 10/08/24 Sahil Chen CNP [address] [place] [address] PCP - General Family Medicine 10/09/24 Chris Pack Jr Preliminary School PsychologistDerrick Helper 09/04/24 documented as of this encounter
--- OUTSIDE RECORDS SUMMARY | 2024-12-04 15:19 | XMS_ITS | Encounter Summary ---
Author Organization [employer] Address [address] [facility] 7t [place] [address] Care Team Providers Care Sales Special Agent Name Role Phone Amna Urrutia Primary Care Provider [phone] Name, Everett ROSE Primary Care Provider [phone] Sahil Chen CNP Primary Care Provider [phone] Reason for Visit * Reason Onset Date Comments Appointment Request 09/08/2023 Encounter Details Date Type Department Care Team ([facility] Contact Info) Description 09/08/2023 Telephone [facility] MEDICINE [address] [place] [address] Amna Urrutia FNP [address] [place] [address] Appointment Request Social History Tobacco Use Types [...] 12/27/2024 11:15 AM EDT Office Visit [facility] MEDICINE [address] [place], [place] [phone] Sahil Chen CNP 230 [place] [address] documented as of this encounter Visit Diagnoses Not on filedocumented in this encounter Additional Health Concerns Assessment Noted Time PHQ-9 Depression Total Score: 16 023 8:52 AM EDT documented as of this encounter Care Teams Sales Special Agent Relationship Specialty Start Date End Date Amna Urrutia FNP 230 [place], [place] [phone] PCP - General Family Medicine 01/01/23 04/18/24 Everett Angulo MD 230 [place], [place] [phone] PCP - General Internal Medicine 04/19/24 10/08/24 Sahil Chen CNP [address] [place] [address] [phone] PCP - General Family Medicine 10/09/24 Chris Pack Jr Electric Truck OperatorInstaller Interior Assemblies 09/04/24 documented as of this encounter
--- OUTSIDE RECORDS SUMMARY | 2024-12-04 15:19 | XMS_ITS | Encounter Summary ---
Author Organization [employer] Address [address] [facility] [address] 7t [place] [address] Care Team Providers Care Stage Technician Name Role Phone Amna Urrutia Primary Care Provider [phone] Name, Everett ROES Primary Care Provider Sahil Chen CNP Primary Care Provider [phone] Reason for Visit * Reason Comments Med Refill Encounter Details Date Type Department Care Team ([facility] st Contact Info) Description 09/11/2023 Refill [facility] MEDICINE 230 [place], [place] [phone] Amna Urrutia FNP [address] [place] [address] Type 1 diabetes mellitus with hyperglycemia ([facility]) Social History Tobacco Use [...] AM EDT Office Visit [facility] MEDICINE [address] [place] [address] Sahil Chen CNP 230 [place] [address] documented as of this encounter Visit Diagnoses Diagnosis Type 1 diabetes mellitus with hyperglycemia (CMS/HCC) documented in this encounter Additional Health Concerns Assessment Noted Time PHQ-9 Depression Total Score: 16 023 8:52 AM EDT documented as of this encounter Care Teams Stage Technician Relationship Specialty Start Date End Date Amna Urrutia FNP [address] [place] [address] PCP - General Family Medicine 01/01/23 04/18/24 Everett Angulo MD [address] [place] [address] PCP - General Internal Medicine 04/19/24 10/08/24 Sahil Chen CNP [address] [place] [address] PCP - General Family Medicine 10/09/24 Chris Pack Jr Electrotyper ApprenticeRv Service Technician 09/04/24 documented as of this encounter
--- OUTSIDE RECORDS SUMMARY | 2024-12-04 15:19 | XMS_ITS | Encounter Summary ---
Author Organization [employer] Address [address] [facility] 7t [place] [address] Care Team Providers Care Bulldozer/Loader/Compactor/Scraper Name Role Phone Amna Urrutia Primary Care Provider [phone] Name, Everett ROSE Primary Care Provider [phone] Sahli Chen CNP Primary Care Provider [phone] Reason for Visit * Reason Onset Date Comments Med Refill 05/30/2023 Encounter Details Date Type Department Care Team (Late st Contact Info) Description 05/30/2023 Refill [facility] MEDICINE 230 [place] [address] Amna Urrutia FNP 230 [place] [address] Social History Tobacco Use Types Packs/Day Years [...] Description 12/27/2024 11:15 AM EDT Office Visit [facility] MEDICINE [address] [place] [address] Sahil Chen CNP 230 [place] [address] documented as of this encounter Visit Diagnoses Not on filedocumented in this encounter Additional Health Concerns Assessment Noted Time PHQ-9 Depression Total Score: 16 023 8:52 AM EDT documented as of this encounter Care Teams Bulldozer/Loader/Compactor/Scraper Relationship Specialty Start Date End Date Amna Urrutia FNP [address] [place] [address] PCP - General Family Medicine 01/01/23 04/18/24 Everett Angulo MD [address] [place] [address] PCP - General Internal Medicine 04/19/24 10/08/24 Sahil Chen CNP [address] [place] [address] [phone] PCP - General Family Medicine 10/09/24 Chris Pack Jr Machine OperatorsBlood Bank Attendant 09/04/24 documented as of this encounter
--- OUTSIDE RECORDS SUMMARY | 2024-12-04 15:19 | XMS_ITS | Encounter Summary ---
Author Organization [facility] Address [address] [place] [address] Phone Care Team Providers Care Gear Shaver Set Up Operator Name Role Phone Santos Mueller MD Primary Care Provider [phone] Encounter Details Date Type Department Care Team (Late st Contact Info) Description 07/28/2023 Documentation Only [facility], [address] [place] [address] Santos Mueller MD 230 [place] [address] Social History Tobacco Use Types [...] on filedocumented in this encounter Care Teams Gear Shaver Set Up Operator Relationship Specialty Start Date End Date Santos Mueller MD 230 [place] [address] PCP - General Emergency Medicine 07/28/23 documented as of this encounter
--- OUTSIDE RECORDS SUMMARY | 2024-12-04 15:19 | XMS_ITS | Encounter Summary ---
Author Organization [employer] Address [address] [facility] [address] 7t [place] [address] Care Team Providers Care Front End Developer Designer Name Role Phone Amna Urrutia Primary Care Provider [phone] Name, Everett ROSE Primary Care Provider [phone] Sahil Chen CNP Primary Care Provider [phone] Reason for Visit * Reason Comments Med Refill Encounter Details Date Type Department Care Team ([facility] st Contact Info) Description 10/04/2023 Refill [facility] MEDICINE 230 [place], [place] [phone] Amna Urrutia FNP 230 [place] [address] Type 1 diabetes mellitus with hyperglycemia ([facility]) Social History Tobacco Use Types Packs/Day Years [...] 11:15 AM EDT Office Visit [facility] MEDICINE 230 [place] [address] Sahil Chen CNP 230 [place] [address] documented as of this encounter Visit Diagnoses Diagnosis Type 1 diabetes mellitus with hyperglycemia (CMS/HCC) documented in this encounter Additional Health Concerns Assessment Noted Time PHQ-9 Depression Total Score: 16 023 8:52 AM EDT documented as of this encounter Care Teams Front End Developer Designer Relationship Specialty Start Date End Date Amna Urrutia FNP 230 [place] [address] PCP - General Family Medicine 01/01/23 04/18/24 Everett Angulo MD [address] [place] [address] PCP - General Internal Medicine 04/19/24 10/08/24 Sahil Chen CNP [address] [place] [address] PCP - General Family Medicine 10/09/24 Chris Pack Jr Clerk General OfficeTruck Striker 09/04/24 documented as of this encounter
--- OUTSIDE RECORDS SUMMARY | 2024-12-04 15:20 | XMS_ITS | Encounter Summary ---
Author Organization [employer] Address 75 [facility] 7t [place] [address] Care Team Providers Care Head Of Strategy Name Role Phone Amna Urrutia Primary Care Provider [phone] Name, Everett ROSE Primary Care Provider [phone] Sahil Chen CNP Primary Care Provider [phone] Reason for Visit * Reason Onset Date Comments Med Refill 05/03/2023 Encounter Details Date Type Department Care Team (Late st Contact Info) Description 05/03/2023 Refill [facility] [address] [place] [address] Amna Urrutia FNP [address] [place] [address] Type 1 diabetes mellitus with hyperglycemia ([facility]) Social History Tobacco Use Types [...] Description 12/27/2024 11:15 AM EDT Office Visit [facility] MEDICINE [address] [place] [address] Sahil Chen CNP 230 [place] [address] documented as of this encounter Visit Diagnoses Diagnosis Type 1 diabetes mellitus with hyperglycemia (CMS/HCC) documented in this encounter Additional Health Concerns Assessment Noted Time PHQ-9 Depression Total Score: 16 023 8:52 AM EDT documented as of this encounter Care Teams Head Of Strategy Relationship Specialty Start Date End Date Amna Urrutia FNP 230 [place] [address] PCP - General Family Medicine 01/01/23 04/18/24 Name, MD Everett 230 [place] [address] PCP - General Internal Medicine 04/19/24 10/08/24 Sahil Chen CNP 230 [place] [address] PCP - General Family Medicine 10/09/24 Chris Pack Jr School CoordinatorSpeed Belt Sander 09/04/24 documented as of this encounter
--- OUTSIDE RECORDS SUMMARY | 2024-12-04 15:20 | XMS_ITS | Encounter Summary ---
Author Organization [employer] Address [address] [facility] 7t [place] [address] Care Team Providers Care Cold Press Loader Name Role Phone Amna Urrutia Primary Care Provider [phone] Name, Everett ROSE Primary Care Provider [phone] Sahil Chen CNP Primary Care Provider [phone] Reason for Visit * Reason Onset Date Comments Med Refill 05/01/2023 Encounter Details Date Type Department Care Team (Late st Contact Info) Description 05/01/2023 Refill [facility] [address] [place] [address] Lakshmi Womack FNP [address] [place] [address] Type 1 diabetes mellitus with hyperglycemia ([facility]) Social History Tobacco Use [...] Description 12/27/2024 11:15 AM EDT Office Visit [facility] MEDICINE [address] [place] [address] Sahil Chen CNP [address] [place] [address] documented as of this encounter Visit Diagnoses Diagnosis Type 1 diabetes mellitus with hyperglycemia (CMS/HCC) documented in this encounter Additional Health Concerns Assessment Noted Time PHQ-9 Depression Total Score: 16 023 8:52 AM EDT documented as of this encounter Care Teams Cold Press Loader Relationship Specialty Start Date End Date Amna Urrutia FNP 230 [place] [address] PCP - General Family Medicine 01/01/23 04/18/24 Name, MD Everett 230 [place] [address] PCP - General Internal Medicine 04/19/24 10/08/24 Sahil Chen CNP 230 [place] [address] PCP - General Family Medicine 10/09/24 Chris Pack Jr Pharmacy Picking TechnicianMilitary Pay Technician 09/04/24 documented as of this encounter
--- OUTSIDE RECORDS SUMMARY | 2024-12-04 15:20 | XMS_ITS | Encounter Summary ---
Author Organization [employer] Address [address] [facility] [address] 7t [place] [address] Care Team Providers Care Tobacco Sample Puller Name Role Phone Amna Urrutia Primary Care Provider [phone] Adele, Everett ROSE Primary Care Provider [phone] Sahil Chen CNP Primary Care Provider [phone] Reason for Visit * Reason Onset Date Comments Med Refill 07/15/2023 Encounter Details Date Type Department Care Team (Late st Contact Info) Description 07/15/2023 Refill [facility] [address] [place], [place] [phone] Amna Urrutia FNP [address] [place] [address] Social History Tobacco Use Types Packs/Day Years [...] 11:15 AM EDT Office Visit [facility] MEDICINE [address] [place] [address] Sahil Chen CNP 230 [place] [address] documented as of this encounter Visit Diagnoses Not on filedocumented in this encounter Additional Health Concerns Assessment Noted Time PHQ-9 Depression Total Score: 16 023 8:52 AM EDT documented as of this encounter Care Teams Tobacco Sample Puller Relationship Specialty Start Date End Date Amna Urrutia FNP [address] [place] [address] PCP - General Family Medicine 01/01/23 04/18/24 Everett Angulo MD [address] [place] [address] PCP - General Internal Medicine 04/19/24 10/08/24 Sahil Chen CNP [address] [place] [address] PCP - General Family Medicine 10/09/24 Chris Pack Jr Licensed Massage PractitionerBean Sprout Grower 09/04/24 documented as of this encounter
--- OUTSIDE RECORDS SUMMARY | 2024-12-04 15:20 | XMS_ITS | Encounter Summary ---
Author Organization [facility] Address [address] [place] [address] Phone Care Team Providers Care Radio Artist Name Role Phone Santos Mueller MD Primary Care Provider [phone] Encounter Details Date Type Department Care Team (Late st Contact Info) Description 08/05/2024 Documentation Only [facility], [address] [place] [address] Jessica Sprague [address] [place] [address] Social History Tobacco Use Types [...] on filedocumented in this encounter Care Teams Radio Artist Relationship Specialty Start Date End Date Santos Mueller MD [address] [place] [address] PCP - General Emergency Medicine 07/28/23 documented as of this encounter
--- OUTSIDE RECORDS SUMMARY | 2024-12-04 15:20 | XMS_ITS | Encounter Summary ---
Author Organization [employer] Address [address] [place] [address] Care Team Providers Care Income Auditor Name Role Phone Amna Urrutia Primary Care Provider [phone] Name, Everett ROSE Primary Care Provider [phone] Sahil Chen CNP Primary Care Provider [phone] Reason for Visit * Reason Onset Date Comments Med Refill 07/17/2023 Encounter Details Date Type Department Care Team (Late st Contact Info) Description 07/17/2023 Refill [facility] [address] [place] [address] Amna Urrutia FNP [address] [place] [address] Social History Tobacco Use Types Packs/Day Years [...] EDT Office Visit [facility] [address] [place] [phone] Sahil Chen CNP [address] [place] [address] documented as of this encounter Visit Diagnoses Not on filedocumented in this encounter Additional Health Concerns Assessment Noted Time PHQ-9 Depression Total Score: 16 023 8:52 AM EDT documented as of this encounter Care Teams Income Auditor Relationship Specialty Start Date End Date Amna Urrutia FNP [address] [place] [phone] PCP - General Family Medicine 01/01/23 04/18/24 Everett Angulo MD [address] [place] [phone] PCP - General Internal Medicine 04/19/24 10/08/24 Sahil Chen CNP [address] [place] [address] [phone] PCP - General Family Medicine 10/09/24 Chris Pack Jr Biological ScientistRn Admissions 09/04/24 documented as of this encounter
--- OUTSIDE RECORDS SUMMARY | 2024-12-04 15:20 | XMS_ITS | Encounter Summary ---
Author Organization [employer] Address [address] [place] [address] 7 [place] [address] Care Team Providers Care Field Service Representative Name Role Phone Amna Urrutia Primary Care Provider [phone] Name, Everett ROSE Primary Care Provider [phone] Sahil Chen CNP Primary Care Provider [phone] Reason for Visit * Reason Onset Date Comments Med Refill 04/29/2023 Encounter Details Date Type Department Care Team (Late st Contact Info) Description 04/29/2023 Refill [facility] [address] [place] [address] [phone] Sandra Leal MD [address] [place] [address] [phone] Social History Tobacco Use Types Packs/Day Years [...] Description 12/27/2024 11:15 AM EDT Office Visit [facility] [address] [place] [address] [phone] Sahil Chen CNP [address] [place] [address] documented as of this encounter Visit Diagnoses Not on filedocumented in this encounter Additional Health Concerns Assessment Noted Time PHQ-9 Depression Total Score: 16 023 8:52 AM EDT documented as of this encounter Care Teams Field Service Representative Relationship Specialty Start Date End Date Amna Urrutia FNP [address] [place], [place] [phone] PCP - General Family Medicine 01/01/23 04/18/24 Name, MD Everett [address] [place], [place] [phone] PCP - General Internal Medicine 04/19/24 10/08/24 Sahil Chen CNP [address] [place], [place] [phone] PCP - General Family Medicine 10/09/24 Chris Pack Jr Strap SetterSurgery Scheduling Coordinator 09/04/24 documented as of this encounter
--- OUTSIDE RECORDS SUMMARY | 2024-12-04 15:20 | XMS_ITS | Encounter Summary ---
Author Organization [employer] Address [address] [place] [address] Care Team Providers Care Neonatal Nurse Name Role Phone Amna Urrutia Primary Care Provider [phone] Adele, Everett ROSE Primary Care Provider Sahil Chen CNP Primary Care Provider [phone] Encounter Details Date Type Department Care Team (Late st Contact Info) Description 06/28/2023 Orders Only [facility] [address] [place], [place] [phone] Santos Mueller MD [address] [place] [address] Social History Tobacco Use Types Packs/Day Years [...] 11:15 AM EDT Office Visit [facility] [address] [place] [address] Sahil Chen CNP [address] [place] [address] documented as of this encounter Visit Diagnoses Not on filedocumented in this encounter Additional Health Concerns Assessment Noted Time PHQ-9 Depression Total Score: 16 023 8:52 AM EDT documented as of this encounter Care Teams Neonatal Nurse Relationship Specialty Start Date End Date Amna Urrutia FNP [address] [place] [phone] PCP - General Family Medicine 01/01/23 04/18/24 Everett Angulo MD [address] [place] [phone] PCP - General Internal Medicine 04/19/24 10/08/24 Sahil Chen CNP [address] [place] [id number] PCP - General Family Medicine 10/09/24 Chris Pack Jr Certified Nursing AttendantSales And Marketing Engineer 09/04/24 documented as of this encounter
--- OUTSIDE RECORDS SUMMARY | 2024-12-04 15:20 | XMS_ITS | Encounter Summary ---
Author Organization [employer] Address [address] [place] [address] Care Team Providers Care Cafeteria Manager Name Role Phone Amna Urrutia Primary Care Provider [phone] Name, Everett ROSE Primary Care Provider [phone] Sahil Chen CNP Primary Care Provider [phone] Reason for Visit * Reason Onset Date Comments Med Refill 07/28/2023 Encounter Details Date Type Department Care Team (Late st Contact Info) Description 07/28/2023 Refill [facility] [address] [place] [address] Amna Urrutia FNP [address] [place] [address] Social History Tobacco Use Types Packs/Day Years [...] Description 12/27/2024 11:15 AM EDT Office Visit [facility] [address] [place] [phone] Sahil Chen CNP [address] [place] [address] documented as of this encounter Visit Diagnoses Not on filedocumented in this encounter Additional Health Concerns Assessment Noted Time PHQ-9 Depression Total Score: 16 023 8:52 AM EDT documented as of this encounter Care Teams Cafeteria Manager Relationship Specialty Start Date End Date Amna Urrutia FNP [address] [place] [phone] PCP - General Family Medicine 01/01/23 04/18/24 Everett Angulo MD [address] [place] [id number] PCP - General Internal Medicine 04/19/24 10/08/24 Sahil Chen CNP [address] [place] [address] [phone] PCP - General Family Medicine 10/09/24 Chris Pack Jr Glass PolisherJudge'S Clerk 09/04/24 documented as of this encounter
--- OUTSIDE RECORDS SUMMARY | 2024-12-04 15:20 | XMS_ITS | Encounter Summary ---
Author Organization [employer] Address [address] [place] [address] [address] [place] [address] Care Team Providers Care Maintenance Electrician Name Role Phone Amna Urrutia Primary Care Provider [phone] Name, Everett ROSE Primary Care Provider [phone] Sahil Chen CNP Primary Care Provider [phone] Reason for Visit * Reason Onset Date Comments Med Refill 04/28/2023 Encounter Details Date Type Department Care Team (Late st Contact Info) Description 04/28/2023 Refill [facility] [address] [place] [address] [phone] Sandra Leal MD [address] [place] [address] [phone] Social History Tobacco Use Types Packs/Day Years [...] Description 12/27/2024 11:15 AM EDT Office Visit [facility] [address] [place] [address] [phone] Sahil Chen CNP [address] [place] [address] documented as of this encounter Visit Diagnoses Not on filedocumented in this encounter Additional Health Concerns Assessment Noted Time PHQ-9 Depression Total Score: 16 023 8:52 AM EDT documented as of this encounter Care Teams Maintenance Electrician Relationship Specialty Start Date End Date Amna Urrutia FNP [address] [place], [place] [phone] PCP - General Family Medicine 01/01/23 04/18/24 Name, MD Everett 230 [place], [place] [phone] PCP - General Internal Medicine 04/19/24 10/08/24 Sahil Chen CNP [address] [place], [place] [phone] PCP - General Family Medicine 10/09/24 Chris Pack Jr Sustainability ManagerPulp Grinder Feeder 09/04/24 documented as of this encounter
--- OUTSIDE RECORDS SUMMARY | 2024-12-04 15:20 | XMS_ITS | Clinical Summary ---
Author Organization [employer] Address [address] [place] [address] Care Team Providers Care Tableau Report Developer Name Role Phone Gustavo Sahil HEAD BOYS TENNIS COACH Primary Care Provider [phone] Allergies Active Allergy Reactions Criticality Noted Date [...] record from that organization. Continuous Blood Gluc Seamless Tube Drawer (FreeStyle Shiraz 2 [place]) deviceIndications: Type 1 diabetes mellitus with hyperglycemia ([facility]) Use with sensor to monitor blood glucose levels 1 each 023 Active Acetaminophen Extra Strength 500 MG tablet 022 Active Blood Glucose Monitoring Suppl (FreeStyle [place] Lite) w/Device kit 022 Active FREESTYLE LITE [...] miscIndications:Ty pe 1 diabetes mellitus with hyperglycemia ([facility]) Use to monitor blood sugar level [...] injectionIndicatio ns:Type 1 diabetes mellitus with hyperglycemia ([facility]) Inject 20 Units under the skin [...] with hyperglycemia 11/19 Overview (11/28/2024): Follows with [facility] Rick MORSE 09/[address] [...] care ?? PLAN: 1. Follow up with [facility]: Recommended for follow-up: TBD 2. Patient goal is stabilization of symptoms. 3. Behavioral Recommendations a. Patient was sectioned and taken to [facility] via ambulance History of concussion 05/31/2023 [...] depressive disorder, recurrent episode with anxious distress ([facility]/HCC) Patient ready to address current needs Yes Strengths include willing to engage in MH services. PLAN: 1. Follow up with [facility]: Not recommended for follow-up 2. Patient goal [...] to schedule apt ---I discussed today w graphics specialist and request to try to schedule [...] f up until can start care w fitting room maintenance mechanic Type 1 diabetes mellitus without complication Assessment & Plan (03/21/2024 3:41 PM EDT): Has apt w Community Relations Advisor next week to start care Assessment & [...] EDT): ?? Reports diagnosed approx 2018 in [place] ?? Referral to establish with GI provider [...] Encounters Date Type Department Care Team Description 12/04/2024 Orders Only GENERIC EXTERNAL DATA DEPARTMENT Provider, Generic External Data 11/27/2024 2:45 PM EDT Office Visit [facility] MEDICINE [address] [place] [phone] Sahil Chen CNP Type 1 diabetes mellitus with hyperglycemia (CMS/HCC) (Primary Dx); Insomnia, unspecified type; Major depressive disorder, recurrent episode with anxious distress (CMS/HCC); Tobacco dependence 11/27/2024 Travel 11/19/[address] [facility] [address] [place] [address] Sahil Chen CNP Pre-visit Planning ([facility] unable to reach [facility]) 11/13/2024 10:00 AM EDT Office Visit [facility] MEDICINE [address] [place] [phone] Alejandra Saucedo DO Type 1 diabetes mellitus with hyperglycemia (CMS/HCC) (Primary Dx); Chronic gastroesophageal reflux disease; Hyperglycemia 11/13/2024 Travel 11/12/2024 Telephone [facility] MEDICINE [address] [place] [phone] Sahil Chen CNP Chart Prep 11/08/2024 Patient Outreach [facility] MEDICINE [address] [place] [phone] Sahil Chen CNP Transition Of Care (Tcm) 11/06/2024 Orders Only [facility] MEDICINE [address] [place] [phone] Sahil Chen CNP Gastroesophageal reflux disease without esophagitis 11/06/2024 Refill [facility] WALK-IN CENTER [address] [place] [address] Sahil Chen CNP Gastroesophageal reflux disease without esophagitis 11/06/[address] [facility] [address] [place] [address] Sahil Chen CNP Novolog 11/05/2024 Refill [facility]ALK[facility] CENTER [address] [place] [phone] Lindsey Cuellar NP Gastroesophageal reflux disease without esophagitis 11/01/2024 Population Health [facility] ([facility] Department [address] [place] [phone] Provider, Population Health Generic 10/18/2024 Orders Only GENERIC EXTERNAL DATA DEPARTMENT Provider, Generic External Data 10/14/2024 Patient Outreach [facility] MEDICINE [address] [place] [phone] Sahil Chen CNP Transition Of Care (Tcm) 10/09/2024 Telephone [facility] WALK-IN [address] [address] Shivani Lopez RN 10/09/2024 Orders Only [facility] MEDICINE [address] [place] [phone] Sahil Chen CNP Type 1 diabetes mellitus with hyperglycemia (CMS/HCC) (Primary Dx) 10/08/[address] [facility] [address] [place] [address] Everett Angulo MD Gastroesophageal reflux disease without esophagitis 10/08/2024 Refill [facility] MEDICINE [address] [place] [phone] Everett Angulo MD Type 1 diabetes mellitus with hyperglycemia (CMS/HCC) 09/30/[address] [facility] [address] [place] [address] Everett Angulo MD Pre-visit Planning ([facility] unable to complete, patient working. ) 09/16/2024 Telephone [facility] MEDICINE [address] [place] [phone] Gertrude Tyler, RN Results 09/13/2024 2:00 PM EST Office Visit [facility] WALK[facility]IN CENTER [address] [place] [address] [phone] Denice Rubin MD Dry cough (Primary Dx); Wheeze 09/12/2024 Telephone [facility] MEDICINE [address] [place] [phone] Everett Angulo MD Nurse Triage 09/12/2024 Refill [facility] MEDICINE [address] [place] [address] Everett Angulo MD 09/10/2024 Telephone [facility]INE [address] [place] [address] Everett Angulo MD Medication Question 09/10/2024 Patient Outreach [facility] [address] [place] [address] Everett Angulo MD Transition Of Care (Tcm) [...] Description 12/27/2024 11:15 AM EDT Office Visit [facility] MEDICINE [address] [place] [address] Sahil Chen, SERA [address] [place], [place] [phone] Health Maintenance Due Date Last Done Comments [...] Procedure Name Priority Date/Time Associated Diagnosis Comments SARS COV2/INFLUENZA A/B AND RSV RNA QL NAAT Routine 12/04/2024 12:33 PM EDT STREP A NUCLEIC ACID Routine 12/04/2024 12:33 PM EDT POCT URINALYSIS DIPSTICK Routine 11/27/2024 4:39 PM [...] Recently Relevant to Health Maintenance Results * Strep A Nucleic Acid (12/04/2024 12:33 PM EDT) IDNOW SERIAL# [id number] [facility] Strep A Nucleic Acid Negative Negative [facility] Comment:All test results mus t [...] GENERAL ORDERABLES Final Result Performing Organization Address [facility]/ZIP Co de Phone Number [facility] [address] [place] [phone] * SARS-CoV-2 RNA, Influenza A/B, and RSV RNA, Ql NAAT (12/04/2024 12:33 PM EDT) Influenza A PCR NEGATIVE Negative [facility] Influenza B PCR NEGATIVE Negative [facility] Resp Syncy Virus RNA Qual PCR NEGATIVE Negative [facility] SARS COV2 PCR NEGATIVE Negative [facility] Comment:All test results mus t [...] use by authorized laboratories.Testing performed on the [employer] GeneXpert utilizingreal-time RT-PCR.All SARS CoV2 and positive influenza A/B results arereported to [facility]. 12/04/2024 12:3 3 PM EDT 12/04/2024 12:54 PM EDT Generic External Data Provider LAB MICROBIOLOGY - GENERAL ORDERABLES Final Result Performing Organization Address [facility]/ZIP Co de Phone Number [facility] [address] [place] [phone] * (ABNORMAL) POCT Urinalysis (11/27/2024 4:39 PM [...] Expiration Date Urine 11/27/2024 4:39 PM EDT Result [facility] POINT OF CARE TEST ENTER/ EDIT ORDERABLES Final Result * (ABNORMAL) POCT HGB A1C (11/27/2024 3:07 PM EDT) Only the most recent of2 resultswithin the time period is included. [facility] Hemoglobin A1C 8.7(A) 4.0 - 6.0 % QC Media Lot # [id number] Lot# Expiration Date Blood 11/27/2024 3:07 PM EDT Result [facility] POINT OF CARE TEST ENTER/ EDIT ORDERABLES Final Result * (ABNORMAL) POCT Glucose (11/27/2024 2:58 PM EDT) Only the most recent of2 resultswithin the time period is included. [facility] Glucose Blood, POC 383(A) 60 - 200 mg/dL QC Media Lot # [id number] Lot# Expiration Date Blood Capillary blood specimen / Unknown 11/27/2024 2:58 PM EDT Result [facility] POINT OF CARE TEST ENTER/ EDIT ORDERABLES Final Result * (ABNORMAL) Glucose, Whole Blood (10/18/2024 3:01 PM EST) [facility] Glucose, Whole Blood 333(H) 60 - 115 mg/dL [facility] Comment:METER #: [id number] 5Testing performed in the Endocrinology Department [address] , [address], [place]. 10/18/2024 3:01 PM EST 10/18/2024 3:05 PM EST us Generic External Data Provider LAB BLOOD ORDERAB LES Final Result [facility] [address] [place] [address] [phone] * CT Abdomen Pelvis w/o Contrast (10/11/2024 11:08 PM EST) Anatomical Region Laterality Modality Body, Pelvis, Abdomen Computed T omography 10/11/2024 11:0 8 PM EST Narrative 10/11/2024 11:09 PM EST ? [facility] ?[address] ?[place] [address] ? CT Scan Report ? Signed ? Patient: Bradford Torres ?MR#: [id number] ?? [id number] ? : 1995 ?Acct:[id number] ? Age/Sex: 29 / M ?ADM Date: 10/11/24 ? Loc: HO.ED ? Attending Dr: ? Ordering Physician: Jorge Augustin ?? Date of Service: 10/11/24 ?? Procedure(s): CT abdomen pelvis wo IV con ?? Accession Number(s): [id number] ? cc: Name,Everett ROSE; Jorge Augustin ? Report Number: ?? [id number]: Total DLP = ??378.00 mGy-cm ? CLINICAL [...] ? DD/ 07 ? TD/TT: 10/11/242307 ? Broodmare Foreman: ? Procedure Note Donunater, Image - 10/11/[address] [address] [address] Scan Report Signed Patient: Bradford Torres JMR#: [id number] : 1995Acct:[id number] Age/Sex: 29 / MADM Date: 10/11/24 Loc: HO.ED Attending Dr: Ordering Physician: Jorge Augustin Date of Service: 10/11/24 Procedure(s): CT abdomen pelvis wo IV con Accession Number(s): [id number] cc: Name,Everett ROSE; Jorge Augustin Report Number: [id number]: Total DLP = 378.00 mGy-cm CLINICAL HISTORY: [...] in OV> 10/11/242308 DD/ 07 TD/TT: 10/11/242307 Broodmare Foreman: [facility] External Provider IMG CT PROCEDURES Edited Result - Final * XR Chest 2 Views (09/13/2024 2:12 PM EST) Anatomical Region Laterality Modality Chest Radiographic Sheri ging 09/13/2024 2:12 PM EST Narrative 09/13/2024 2:33 PM EST ?[facility] ?[address] ?[place] [address] ?XRay Report ? Signed ? Patient: Bradford Torres ?MR#: [id number] ?? [id number] ? : 1995 ?Acct:[id number] ? Age/Sex: 29 / M ?ADM Date: 09/13/24 ? Loc: HO.HHCX ? Attending Dr: Denice Rubin MD ? Ordering Physician: Denice Rubin MD ?? Date of Service: 09/13/24 ?? Procedure(s): XR chest 2V ?? Accession Number(s): [id number] ? cc: Denice Rubin MD ? EXAMINATION: [...] DD/ 1412 ? TD/TT: 09/13/24 1422 ? Broodmare Foreman: ? Procedure Note Geovanna, Aamir - 09/13/2024 [facility] [address] [place] [address] XRay Report Signed Patient: Bradford Torres JMR#: [id number] : 1995Acct:[id number] Age/Sex: 29 / MADM Date: 09/13/24 Loc: HO.HHCX Attending Dr: Denice Rbuin MD Ordering Physician: Denice Rubin MD Date of Service: 09/13/24 Procedure(s): XR chest 2V Accession Number(s): [id number] cc: Denice Rubin MD EXAMINATION: XR CHEST [...] 09/13/24 1429 DD/ 1412 TD/TT: 09/13/24 1422 Broodmare Foreman: Denice Rubin MD IMG XR PROCEDURES Final Re sult * Influenza B (ID NOW Rapid Molecular) (09/13/2024 2:06 PM EST) [facility] Influenza B Negative Negative, Indeterminate [facility] Swab 09/13/2024 2:0 6 PM EST Denice Rubin MD POINT OF CARE TEST ENTER/E DIT ORDERABLES Final Result [facility] [address] [place] [phone] * Influenza A (ID NOW Rapid Molecular) (09/13/2024 2:06 PM EST) [facility] Influenza A Negative Negative, Indeterminate [facility] Swab 09/13/2024 2:06 PM EST Denice Rubin MD POINT OF CARE TEST ENTER/E DIT ORDERABLES Final Result [facility] [address] [facility] [place] [address] [phone] * POCT COVID-19 Ag Goldman ID NOW (09/13/2024 2:06 PM EST) Pathologist [facility] Coronavirus Antigen PCR Negative Negative, Indeterminate, None Detected, Invalid, Specimen unsatisfactory for evaluation, Weakly Positive Swab 09/13/2024 2:06 PM EST Denice Rubin MD POINT OF CARE TEST ENTER/E DIT ORDERABLES Final Result * (ABNORMAL) Respiratory Viral Panel PCR (09/13/2024 2:05 PM EST) [facility] Adenovirus PCR Not Detected Not Detect. [facility] Bordetella pertussis PCR Not Detected Not Detect. [facility] Comment:Interpret results wi th caution. If B. pertussis isspecifically suspected, additional testing using analternate method is recommended. Bordetella parapertussis PCR Not Detected Not Detect. [facility] Chlamydia pneumoniae PCR Not Detected Not Detect. [facility] Coronavirus 229E PCR Not Detected Not Detect. [facility] Coronavirus HKU1 PCR Not Detected Not Detect. [facility] Coronavirus NL63 PCR Not Detected Not Detect. [facility] Coronavirus OC43 PCR Not Detected Not Detect. [facility] SARS-CoV-2 PCR Not Detected Not Detect. [facility] Comment:SARS-CoV-2 not detec brooke by real-time RT-PCR.Note: If clinical suspicion for Sars-CoV-2 is high, continueto maintain precautions and consider repeat testing.Test results should be interpreted in the context ofclinical findings and other laboratory data.Rare polymorphisms exist that could lead to false-negativeor false-positive results. If results do not match theclinical findings, additional testing should be considered.Results reported to [facility].This test has been authorized by the FDA under the EmergencyUse Authorization (EUA) for use by authorized laboratories. Influenza A PCR Detected(A) Not Detect. [facility] Influenza B PCR Not Detected Not Detect. [facility] Human metapneumovirus PCR Not Detected Not Detect. [facility] Rhino/Enterovirus PCR Not Detected Not Detect. [facility] Mycoplasma pneumoniae PCR Not Detected Not Detect. [facility] Parainfluenza 1 PCR Not Detected Not Detect. [facility] Parainfluenza 2 PCR Not Detected Not Detect. [facility] Parainfluenza 3 PCR Not Detected Not Detect. [facility] Parainfluenza 4 PCR Not Detected Not Detect. [facility] RSV PCR Not Detected Not Detect. [facility] Resp Panel NA Note See Note H [facility] Comment:All results must be correlated [...] assay is performed by Multiplexed PCR, utilizing [employer] Film Array. Swab 09/13/2024 2:05 PM EST 09/14/2024 8:41 AM EST us Denice Rubin MD LAB BLOOD ORDERABLES Final Result [facility] [address] [place] [phone] [phone] * US SCROTUM DOPPLER (09/09/2024 10:19 PM EST) Only the most recent of2 resultswithin the time period is included. Anatomical Region Laterality Modality Abdomen Ultrasound 09/09/2024 10:1 9 PM EST Narrative 09/10/2024 8:26 AM EST ? [facility] ?[address] ?[place] [address] ? Ultrasound Report ? Signed ? Patient: Bradford Torres J ?MR#: [id number] ?? [id number] ? : 1995 ?Acct:[id number] ? Age/Sex: 29 / M ?ADM Date: 09/09/24 ? Loc: HO.ED ? Attending Dr: ? Ordering Physician: Sedrick Grady MD ?? Date of Service: 09/09/24 ?? Procedure(s): US scrotum doppler ?? Accession Number(s): [id number] ? cc: Name,Everett ROSE; Sedrick Grady MD [...] ? DD/ 18 ? TD/TT: 09/09/242218 ? Broodmare Foreman: ? Procedure Note Aamir Austin - 09/10/[address] [address] Ultrasound Report Signed Patient: Bradford Torres JMR#: [id number] : 1995Acct:[id number] Age/Sex: 29 / MADM Date: 09/09/24 Loc: HO.ED Attending Dr: Ordering Physician: Sedrick Grady MD Date of Service: 09/09/24 Procedure(s): US scrotum doppler Accession Number(s): [id number] cc: Name,Everett ROSE; Sedrick Grady MD CLINICAL [...] OV> 09/10/24 0826 DD/ 18 TD/TT: 09/09/242218 Broodmare Foreman: [facility] External Provider IMG US PROCEDURES Edited Result - Final * US Scrotum (09/09/2024 10:19 PM EST) Only the most recent of2 resultswithin the time period is included. Anatomical Region Laterality Modality Body Ultrasound 09/09/2024 10:1 9 PM EST Narrative 09/09/2024 10:21 PM EST ? [facility] ?[address] ?[place] [address] ? Ultrasound Report ? Signed ? Patient: Torres,Bradford J ?MR#: [id number] ?? [id number] ? : 1995 ?Acct:[id number] ? Age/Sex: 29 / M ?ADM Date: 09/09/24 ? Loc: HO.ED ? Attending Dr: ? Ordering Physician: Sedrick Grady MD ?? Date of Service: 09/09/24 ?? Procedure(s): US scrotum ?? Accession Number(s): [id number] ? cc: Adele,Everett ROSE; Sedrick Grady MD [...] ? DD/ 18 ? TD/TT: 09/09/242218 ? Broodmare Foreman: ? Procedure Note Aamir Austin - 09/09/[address] [address] Ultrasound Report Signed Patient: Bradford Torres R#: [id number] : 1995Acct:[id number] Age/Sex: 29 / MADM Date: 09/09/24 Loc: HO.ED Attending Dr: Ordering Physician: Sedrick Grady MD Date of Service: 09/09/24 Procedure(s): US scrotum Accession Number(s): [id number] cc: Adele,Everett ROSE; Sedrick Grady MD CLINICAL [...] in OV> 09/09/242220 DD/ 18 TD/TT: 09/09/242218 Broodmare Foreman: us [facility] External Provider IMG US PROCEDURES Final Result * Lactic Acid (09/09/2024 8:47 PM EST) Pathologist [facility] Lactic Acid 0.8 0.5 - 2.0 mmol/L [facility] 09/09/2024 8:47 PM EST 09/09/2024 8:53 PM EST Narrative [facility] - 09/09/2024 9:09 PM EST NOT ON ICE us Generic External Data Provider LAB BLOOD ORDERAB LES Final Result [facility] [address] [place] [phone] * (ABNORMAL) CBC auto differential (09/09/2024 8:17 PM EST) White Blood Count 7.7 4.8 - 10.8 X10*3/uL [facility] Red Blood Count 4.72 4.60 - 5.80 X10*6/uL [facility] Hemoglobin 12.4(L) 14.0 - 18.0 g/dl [facility] Hematocrit 36.7(L) 42.0 - 52.0 % [facility] Mean Corpuscular Volume 77.8(L) 80.0 - 98.0 fL [facility] Mean Corpuscular Hemoglobin 26.3(L) 27.0 - 33.0 pg [facility] Mean Corpuscular HGB Conc 33.8 31.0 - 36.0 g/dl [facility] Red Cell Distribution Width 13.9 11.0 - 16.0 % [facility] Platelet Count 236 160 - 400 X10*3/uL [facility] Mean Platelet Volume 9.4 9.4 - 12.4 fL [facility] Neutrophils Percent Auto 71.7 45 - 73 % [facility] Imm Gran Pct Auto 0.1 0.0 - 0.4 % [facility] Lymphocytes Percent Auto 15.8(L) 20 - 40 % [facility] Monocytes Percent Auto 10.3 2 - 11 % [facility] Eosinophils Percent Auto 1.6 0 - 4 % [facility] Basophils Percent Auto 0.5 0 - 2 % [facility] NRBC Pct Auto 0.0 0.0 - 0.2 /100WBC [facility] Neutrophils Absolute Auto 5.5 2.0 - 8.3 x10*3/uL [facility] Imm Gran Abs Auto 0.01 0.00 - 0.03 X10*3/uL [facility] Lymphocytes Absolute Auto 1.2 1.2 - 4.9 X10*3/uL [facility] Monocytes Absolute Auto 0.8 0.1 - 1.2 X10*3/uL [facility] Eosinophils Absolute Auto 0.1 0.0 - 0.4 X10*3/uL [facility] Basophils Absolute Auto 0.0 0.0 - 0.2 X10*3/uL [facility] NRBC Abs Auto 0.000 0.0 - 0.012 X10*3/uL [facility] 09/09/2024 8:17 PM EST 09/09/2024 8:19 PM EST us Generic External Data Provider LAB BLOOD ORDERAB LES Final Result [facility] [address] [place] [phone] * (ABNORMAL) Comprehensive Metabolic Panel (09/09/2024 8:17 PM EST) Sodium 136 135 - 145 mmol/L [facility] Potassium 3.9 3.3 - 5.1 mmol/L [facility] Chloride 104 96 - 108 mmol/L [facility] Carbon Dioxide 21(L) 22 - 29 mmol/L [facility] Anion Gap 15 12 - 20 [facility] Urea Nitrogen (BUN) 15 9 - 16 mg/dL [facility] Creatinine, Serum 0.60 0.5 - 1.4 mg/dL [facility] Creatinine Clr Calc Pharmacy 178.3 [facility] Comment:eGFR (calculated fro m the MDRD study equation) and eCrCl(calculated from the Cockcroft-Gault equation) are based ondifferent parameters and may not yield comparable results.If eCrCl result is absurd, please check patient'sheight/weight. Estimated Glomerular Filt Rate >60 [facility] Comment:Chronic Kidney Disea se: Estimated GFR < 60 mL/min/1.80y0Paqfgt Kidney Disease: Estimated GFR < 15 mL/min/1.73m2 Glucose 112 60 - 115 mg/dL [facility] Calcium 8.6 8.4 - 10.2 mg/dL [facility] Bilirubin, Total 0.4 0.0 - 1.0 mg/dL [facility] Aspartate Amino Transferase 18 5 - 37 U/L [facility] Alanine Aminotransferase 12 0 - 40 U/L [facility] Total Protein 7.4 6.5 - 8.0 g/dL [facility] Albumin Level 4.2 3.5 - 5.0 g/dL [facility] Alkaline Phosphatase 64 39 - 117 U/L [facility] 09/09/2024 8:17 PM EST 09/09/2024 8:19 PM EST Generic External Data Provider LAB BLOOD ORDERAB LES Final Result Performing Organization Address [facility] Co de Phone Number [facility] [address] [place] [phone] * Urinalysis w/reflex microscopic (09/09/2024 6:42 PM EST) Color Urine Yellow [facility] Appearance Urine Clear [facility] PH >=9.0 5.0 - 9.0 [facility] Glucose Urine UA Negative Negative mg/dL [facility] Urine Blood Negative Negative [facility] Specific [place] - Urine 1.025 1.005 - 1.025 [facility] Urine Protein Negative Neg-Trace mg/dL [facility] Urine Ketones 15 Negative mg/dL [facility] Nitrite Urine Negative Negative [facility] Leukocyte Esterase Urine Negative Negative [facility] 09/09/2024 6:42 PM EST 09/09/2024 6:44 PM EST Narrative [facility] - 09/09/2024 6:59 PM EST Urine, Clean Catch us Generic External Data Provider LAB URINE ORDERAB LES Final Result Performing Organization Address [facility] Co de Phone Number [facility] [address] [place] [phone] * Hepatitis C Antibody with Reflex to HCV, RNA, Quantitative, Real-Time PCR (11/15/2023 1:28 PM EDT) Hepatitis C Antibody Nonreactive Nonreactive [facility] Comment:Antibodies to HCV no t detected; does not exclude early acuteHCV infection. Blood Venous blood specimen / Unknown 11/15/2023 1:28 PM EDT 11/15/2023 4:04 [address] U[address] [facility] BLOOD ORDERABLES Final Resu lt Performing Organization Address [facility] Co de Phone Number [facility] [address] [place] [address] [phone] * Lipid Panel, Standard (11/15/2023 1:28 PM EDT) Triglycerides 56 <150 mg/dL [facility] Comment:Desirable Triglyceri de: less than 150 mg/dLBorderline High Triglyceride 150-199 mg/dLHigh Triglyceride: 200-499 mg/dLVery High Triglyceride: greater than or equal to 5OO mg/dL Cholesterol 145 <200 mg/dL [facility] Comment:Desirable Cholestero l: less than 200 mg/dLBorderline High Cholesterol: 200-239 mg/dLHigh Cholesterol: greater than 239 mg/dL LDL Cholesterol Calculated 84 <100 mg/dL [facility] Comment:Desirable LDL: less than 100 mg/dLNear Optimal/Above Optimal LDL: 110- 129 mg/dLBorderline High LDL: 130-159 mg/dLHigh LDL: 160-189 mg/dLVery High LDL: greater than or equal to 190 mg/dL HDL Cholesterol 50 >40 mg/dL [facility] Comment:Desirable HDL: great er than 40 mg/dL Note: This HDL assay may give artificially low results in patients with liver disease. Blood Venous blood specimen / Unknown 11/15/2023 1:28 PM EDT 11/15/2023 4:04 [address]na U[address] [facility] BLOOD ORDERABLES Final Resu lt Performing Organization Address [facility]/ZIP Co de Phone Number [facility] [address] [place] [address] [phone] * HIV-1 RNA, Quantitative, Real-Time PCR with Reflex to Genotype (RTI, PI, Integrase) (01/06/2023 10:25 AM EDT) Pathologist [facility] HIV 1 RNA, QN PCR NOT DETECTED copies/mL [facility], HIV 1 RNA, QN PCR NOT DETECTED Log copies/mL [facility], Comment: REFERENCE RANGE: NOT DETECTED copies/mL ?NOT DETECTED ??Log copies/mL This test was performed using Real-Time Polymerase Chain Reaction. Reportable range is 20 to 10,000,000 copies/mL (1.30-7.00 Log copies/mL). 01/06/2023 10:2 5 AM EDT 01/06/2023 10:26 AM EDT Narrative [facility] - 01/11/2023 1:53 AM EDT FASTING:NO SPECIMEN COLLECTED AT PROVIDER OFFICE. FASTING: NO Amna Urrutia MACHINE OPERATOR ASSISTANT LAB BLOOD ORDERABLES Final Resu lt [facility] [address], [place] [address] [facility], [address] [place] [address] from Last 3 Months or Most Recently Relevant to Health Maintenance Insurance [facility] C3 HSN FULL DENTAL - [place] Care Teams Tableau Report Developer Relationship Specialty Start Date End Date Sahil Chen CNP [address] [place] [address] PCP - General Family Medicine 10/09/24 Chris Pack Jr Vehicle Dynamics EngineerSurveillance Monitor 09/04/24
--- OUTSIDE RECORDS SUMMARY | 2024-12-04 15:20 | XMS_ITS | Encounter Summary ---
Author Organization [employer] Address [address] 7t [place] [address] Care Team Providers Care Mainframe Architect Name Role Phone Amna Urrutia Primary Care Provider [phone] Name, Everett ROSE Primary Care Provider [phone] Sahil Chen CNP Primary Care Provider [phone] Reason for Visit * Reason Comments Med Refill Encounter Details Date Type Department Care Team ([facility] st Contact Info) Description 05/30/2023 Refill [facility] [address] [place], [place] [phone] Amna Urrutia FNP [address] [place] [address] Social History Tobacco Use Types Packs/Day Years [...] Office Visit [facility] [address] [place] [address] Sahil Chen CNP 230 [place] [address] documented as of this encounter Visit Diagnoses Not on filedocumented in this encounter Additional Health Concerns Assessment Noted Time PHQ-9 Depression Total Score: 16 023 8:52 AM EDT documented as of this encounter Care Teams Mainframe Architect Relationship Specialty Start Date End Date Amna Urrutia FNP [address] [place] [address] PCP - General Family Medicine 01/01/23 04/18/24 Everett Angulo MD [address] [place] [address] PCP - General Internal Medicine 04/19/24 10/08/24 Sahil Chen CNP [address] [place] [address] [phone] PCP - General Family Medicine 10/09/24 Chris Pack Jr Fax Machine OperatorEducation Reporter 09/04/24 documented as of this encounter
--- OUTSIDE RECORDS SUMMARY | 2024-12-04 15:20 | XMS_ITS | Encounter Summary ---
Author Organization [employer] Address [address] 7t [place] [address] Care Team Providers Care Rn Perioperative Name Role Phone Amna Urrutia Primary Care Provider [phone] Adele, Everett ROSE Primary Care Provider [phone] Sahil Chen CNP Primary Care Provider [phone] Reason for Visit * Reason Onset Date Comments reaction to medication 10/24/2022 Encounter Details Date Type Department Care Team ([facility] st Contact Info) Description 10/24/2022 Telephone [facility] ADULT DENTAL [address] [place] [address] Marycruz Oseguera DDS [address] [place] [address] reaction to medication Social History Tobacco Use [...] Office Visit [facility] MEDICINE [address] [place] [address] [phone] Sahil Chen CNP 230 [place] [address] documented as of this encounter Visit Diagnoses Not on filedocumented in this encounter Care Teams Rn Perioperative Relationship Specialty Start Date End Date Amna Urrutia FNP [address] [place] [address] PCP - General Family Medicine 01/01/23 04/18/24 Everett Angulo MD [address] [place] [address] PCP - General Internal Medicine 04/19/24 10/08/24 Sahil Chen CNP [address] [place] [address] PCP - General Family Medicine 10/09/24 Chris Pack Jr Asphalt Mixing Machine OperatorLandscape Horticulture Instructor 09/04/24 documented as of this encounter
--- OUTSIDE RECORDS SUMMARY | 2024-12-04 15:20 | XMS_ITS | Encounter Summary ---
Author Organization [employer] Address [address] [place] [address] [place] [address] Care Team Providers Care Residential Case Manager Name Role Phone Amna Urrutia Primary Care Provider [phone] Name, Everett ROSE Primary Care Provider [phone] Sahil Chen CNP Primary Care Provider [phone] Reason for Visit * Reason Onset Date Comments Med Refill 03/21/2023 Encounter Details Date Type Department Care Team (Late Contact Info) Description 03/21/2023 Refill [facility] [address] [place] [address] [phone] Amna Urrutia FNP 230 [place], [place] [phone] Social History Tobacco Use Types Packs/Day Years [...] AM EDT Office Visit [facility] [address] [place] [address] Sahil Chen CNP 230 [place], [place] [phone] documented as of this encounter Visit Diagnoses Not on filedocumented in this encounter Additional Health Concerns Assessment Noted Time PHQ-9 Depression Total Score: 7 01/07/20 23 9:10 AM EDT documented as of this encounter Care Teams Residential Case Manager Relationship Specialty Start Date End Date Amna Urrutia FNP 230 [place], [place] [phone] PCP - General Family Medicine 01/01/23 04/18/24 Everett Angulo MD [address] [place], [place] [phone] PCP - General Internal Medicine 04/19/24 10/08/24 Sahil Chen CNP 230 [place], [place] [phone] PCP - General Family Medicine 10/09/24 Chris Pack Jr Auto Service Station AttendantLawn And Garden Technician 09/04/24 documented as of this encounter
--- OUTSIDE RECORDS SUMMARY | 2024-12-04 15:20 | XMS_ITS | Clinical Summary ---
Author Organization [facility], Address [address] [place] [address] [place] [address] Phone Care Team Providers Care Modern And Contemporary Art Curator Name Role Phone Santos Mueller MD Primary Care Provider [phone] Allergies Active Allergy Reactions Criticality Noted Date [...] 06/08/20 16 Insurance Medicaid [place] Care Teams Modern And Contemporary Art Curator Relationship Specialty Start Date End Date Santos Mueller MD [address] [place] [phone] PCP - General Emergency Medicine 07/28/23
--- OUTSIDE RECORDS SUMMARY | 2024-12-04 15:20 | XMS_ITS | Encounter Summary ---
Author Organization [employer] Address [address] [place] [address] 7 [place] [address] Care Team Providers Care Power Plant Operator Name Role Phone Amna Urrutia Primary Care Provider [phone] Name, Everett ROSE Primary Care Provider [phone] Sahil Chen CNP Primary Care Provider [phone] Reason for Visit * Reason Onset Date Comments Med Refill 05/01/2023 Encounter Details Date Type Department Care Team (Late st Contact Info) Description 05/01/2023 Refill [facility] [address] [place] [address] [phone] Sandra Leal MD [address] [place] [address] [phone] Social History Tobacco Use Types Packs/Day Years [...] 11:15 AM EDT Office Visit [facility] [address] [place] [address] [phone] Sahil Chen CNP 230 [place] [address] documented as of this encounter Visit Diagnoses Not on filedocumented in this encounter Additional Health Concerns Assessment Noted Time PHQ-9 Depression Total Score: 16 023 8:52 AM EDT documented as of this encounter Care Teams Power Plant Operator Relationship Specialty Start Date End Date Amna Urrutia FNP 230 [place], [place] [phone] PCP - General Family Medicine 01/01/23 04/18/24 Name, MD Everett 230 [place], [place] [phone] PCP - General Internal Medicine 04/19/24 10/08/24 Sahil Chen CNP 230 [place], [place] [phone] PCP - General Family Medicine 10/09/24 Chris Pack Jr Programmer Analyst Health ItPlastic Bubble Packer 09/04/24 documented as of this encounter
--- OUTSIDE RECORDS SUMMARY | 2024-12-04 15:20 | XMS_ITS | Encounter Summary ---
Author Organization [employer] Address [address] [facility] 7t [place] [address] Care Team Providers Care Section Plotter Operator Name Role Phone Amna Urrutia Primary Care Provider [phone] Name, Everett ROSE Primary Care Provider [phone] Sahil Chen CNP Primary Care Provider [phone] Encounter Details Date Type Department Care Team ([facility] Contact Info) Description 01/17/2023 Orders Only [facility]INE [address] [place] [address] Amna Urrutia FNP 230 [place] [address] Social History Tobacco Use Types Packs/Day Years [...] Upcoming Encounters Date Type Department Care Team ([facility] Contact Info) Description 12/27/2024 11:15 AM EDT Office Visit [facility] [address] [place] [address] Sahil Chen CNP 230 [place] [address] documented as of this encounter Visit Diagnoses Not on filedocumented in this encounter Additional Health Concerns Assessment Noted Time PHQ-9 Depression Total Score: 7 01/07/20 23 9:10 AM EDT documented as of this encounter Care Teams Section Plotter Operator Relationship Specialty Start Date End Date Amna Urrutia FNP 230 [place] [address] PCP - General Family Medicine 01/01/23 04/18/24 Name, MD Everett [address] [place] [address] PCP - General Internal Medicine 04/19/24 10/08/24 Sahil Chen CNP 230 [place] [address] PCP - General Family Medicine 10/09/24 Chris Pack Jr Family And Consumer Sciences TeacherRecovery Collector 09/04/24 documented as of this encounter
--- OUTSIDE RECORDS SUMMARY | 2024-12-04 15:20 | XMS_ITS | Encounter Summary ---
Author Organization [employer] Address [address] [facility] 7t [place] [address] Care Team Providers Care Amusement Machine Mechanic Name Role Phone Amna Urrutia Primary Care Provider [phone] Name, Everett ROSE Primary Care Provider [phone] Sahil Chen CNP Primary Care Provider [phone] Encounter Details Date Type Department Care Team (Late Contact Info) Description 10/21/2022 Abstract [facility] ADULT DENTAL 230 [place] [address] Marycruz Oseguera DDS 230 [place] [address] Social History Tobacco Use Types Packs/Day Years [...] 12/27/2024 11:15 AM EDT Office Visit [facility] [address] [place] [address] Sahil Chen CNP 230 [place] [address] documented as of this encounter Visit Diagnoses Not on filedocumented in this encounter Care Teams Amusement Machine Mechanic Relationship Specialty Start Date End Date Amna Urrutia FNP 230 [place], [place] [phone] PCP - General Family Medicine 01/01/23 04/18/24 Name, MD Everett 230 [place], [place] [phone] PCP - General Internal Medicine 04/19/24 10/08/24 Sahil Chen CNP 230 [place], [place] [phone] PCP - General Family Medicine 10/09/24 Chris Pack Jr Lamp InspectorClay Pigeon Setter 09/04/24 documented as of this encounter
--- OUTSIDE RECORDS SUMMARY | 2024-12-04 15:20 | XMS_ITS | Encounter Summary ---
Author Organization [employer] Address [address] 7t [place] [address] Care Team Providers Care Supervisor Securities Vault Name Role Phone Amna Urrutia Primary Care Provider [phone], Everett ROSE Primary Care Provider [phone] Sahil Chen CNP Primary Care Provider [phone] Reason for Visit * Reason Onset Date Comments Med Refill 07/28/2023 Encounter Details Date Type Department Care Team (Late st Contact Info) Description 07/28/2023 Refill [facility] 230 [place], [place] [phone] Denice Rubin MD 230 [place] [address] Social History Tobacco Use Types Packs/Day Years [...] AM EDT Office Visit [facility] [address] [place] [address] Sahil Chen CNP 230 [place] [address] documented as of this encounter Visit Diagnoses Not on filedocumented in this encounter Additional Health Concerns Assessment Noted Time PHQ-9 Depression Total Score: 16 023 8:52 AM EDT documented as of this encounter Care Teams Supervisor Securities Vault Relationship Specialty Start Date End Date Amna Urrutia FNP [address] [place] [address] PCP - General Family Medicine 01/01/23 04/18/24 Everett Angulo MD [address] [place] [address] PCP - General Internal Medicine 04/19/24 10/08/24 Sahil Chen CNP [address] [place] [address] [phone] PCP - General Family Medicine 10/09/24 Chris Pack Jr Crater And PackerWaterproofing Machine Operator 09/04/24 documented as of this encounter
--- OUTSIDE RECORDS SUMMARY | 2024-12-04 15:20 | XMS_ITS | Encounter Summary ---
Author Organization [employer] Address [address] [facility] 7t [place] [address] Care Team Providers Care Video Technician Name Role Phone Amna Urrutia Primary Care Provider [phone] Adele, Everett ROSE Primary Care Provider [phone] Sahil Chen CNP Primary Care Provider [phone] Reason for Visit * Reason Onset Date Comments Med Refill 07/17/2023 Encounter Details Date Type Department Care Team (Late st Contact Info) Description 07/17/2023 Refill [facility] 230 [place] [address] Sandra Leal MD 230 [place] [address] Social History Tobacco Use Types Packs/Day Years [...] EDT Office Visit [facility] [address] [place] [address] Sahil Chen CNP 230 [place] [address] documented as of this encounter Visit Diagnoses Not on filedocumented in this encounter Additional Health Concerns Assessment Noted Time PHQ-9 Depression Total Score: 16 023 8:52 AM EDT documented as of this encounter Care Teams Video Technician Relationship Specialty Start Date End Date Amna Urrutia FNP [address] [place] [address] PCP - General Family Medicine 01/01/23 04/18/24 Everett Angulo MD [address] [place] [address] PCP - General Internal Medicine 04/19/24 10/08/24 Sahil Chen CNP [address] [place] [address] PCP - General Family Medicine 10/09/24 Chris Pack Jr Audio TechnicianFiscal Economist 09/04/24 documented as of this encounter
--- OUTSIDE RECORDS SUMMARY | 2024-12-04 15:20 | XMS_ITS | Encounter Summary ---
Author Organization [employer] Address [address] [facility] 7t [place] [address] Care Team Providers Care Help Aid Name Role Phone Amna Urrutia Primary Care Provider [phone] Adele, Everett ROSE Primary Care Provider [phone] Sahil Chen CNP Primary Care Provider [phone] Reason for Visit * Reason Onset Date Comments Med Refill 07/15/2023 Encounter Details Date Type Department Care Team (Late st Contact Info) Description 07/15/2023 Refill [facility] 230 [place] [address] Sandra Leal MD 230 [place] [address] Social History Tobacco Use Types Packs/Day Years [...] Description 12/27/2024 11:15 AM EDT Office Visit [facility] [address] [place] [address] Sahil Chen CNP 230 [place] [address] documented as of this encounter Visit Diagnoses Not on filedocumented in this encounter Additional Health Concerns Assessment Noted Time PHQ-9 Depression Total Score: 16 023 8:52 AM EDT documented as of this encounter Care Teams Help Aid Relationship Specialty Start Date End Date Amna Urrutia FNP [address] [place] [address] PCP - General Family Medicine 01/01/23 04/18/24 Everett Angulo MD [address] [place] [address] PCP - General Internal Medicine 04/19/24 10/08/24 Sahil Chen CNP [address] [place] [address] PCP - General Family Medicine 10/09/24 Chris Pack Jr Profiling Machine OperatorLand Surveyor Manager 09/04/24 documented as of this encounter
--- OUTSIDE RECORDS SUMMARY | 2024-12-04 15:20 | XMS_ITS | Clinical Summary ---
Author Organization [facility] it Address [address] [place] [address] Care Team Providers Care Account Service Associate Name Role Phone Unavailable Primary Care Provider [...]
--- OUTSIDE RECORDS SUMMARY | 2024-12-04 15:20 | XMS_ITS | Encounter Summary ---
Author Organization [employer] Address [address] [facility] 7t [place] [address] Care Team Providers Care Table Lever Operator Name Role Phone Amna Urrutia Primary Care Provider [phone] Name, Everett ROSE Primary Care Provider [phone] Sahil Chen CNP Primary Care Provider [phone] Reason for Visit * Reason Onset Date Comments Reschedule 02/14/2024 Encounter Details Date Type Department Care Team ([facility] st Contact Info) Description 02/14/2024 Telephone [facility] MEDICINE [address] [place] [address] Amna Urrutia FNP [address] [place] [address] Reschedule Social History Tobacco Use Types Packs/Day [...] to reschedule 02/13 follow up extended appointment. Internal Medicine Doctor attempted to reschedule but no availability. Please contact pt at [phone] documented in this encounter Plan of Treatment Upcoming Encounters Date Type Department Care Team (Late st Contact Info) Description 12/27/2024 11:15 AM EDT Office Visit [facility] [address] [place] [address] Sahil Chen CNP 230 [place] [address] documented as of this encounter Visit Diagnoses Not on filedocumented in this encounter Additional Health Concerns Assessment Noted Time PHQ-9 Depression Total Score: 10 024 1:01 PM EDT documented as of this encounter Care Teams Table Lever Operator Relationship Specialty Start Date End Date Amna Urrutia FNP [address] [place] [address] PCP - General Family Medicine 01/01/23 04/18/24 Name, MD Everett 230 [place], [place] [phone] PCP - General Internal Medicine 04/19/24 10/08/24 Sahil Chen CNP 230 [place], [place] [phone] PCP - General Family Medicine 10/09/24 Chris Pack Jr Calliope PlayerCnc Mill Operator 09/04/24 documented as of this encounter
--- OUTSIDE RECORDS SUMMARY | 2024-12-04 15:20 | XMS_ITS | Encounter Summary ---
Author Organization [facility] Address [address] [place] [address] Phone Care Team Providers Care Rn Imaging Name Role Phone Santos Mueller MD Primary Care Provider [phone] Encounter Details Date Type Department Care Team (Late st Contact Info) Description 08/05/2024 Documentation Only [facility] [place], [address] [place] [address] Jessica Sprague [address] [place] [address] Social History Tobacco Use Types [...] filedocumented in this encounter Care Teams Rn Imaging Relationship Specialty Start Date End Date Santos Mueller MD 230 [place] [address] PCP - General Emergency Medicine 07/28/23 documented as of this encounter
--- OUTSIDE RECORDS SUMMARY | 2024-12-04 15:20 | XMS_ITS | Encounter Summary ---
Author Organization [facility] Address [address] [place] [address] Phone Care Team Providers Care Licensed Weigher Name Role Phone Santos Mueller MD Primary Care Provider [phone] Encounter Details Date Type Department Care Team (Late st Contact Info) Description 08/05/2024 Documentation Only [facility] [place], [address] [place] [address] Jessica Sprague [address] [place] [address] Social History Tobacco Use Types [...] on filedocumented in this encounter Care Teams Licensed Weigher Relationship Specialty Start Date End Date Santos Mueller MD [address] [place] [address] PCP - General Emergency Medicine 07/28/23 documented as of this encounter
[2024-12-04 15:26] LABS: Alanine Aminotransferase 10 U/L (0-40); Anion Gap 13 (12-20); Aspartate Amino Transferase 18 U/L (5-37); Beta-Hydroxybutyrate 1.12 mmol/L (0.02-0.27); Bilirubin Total 0.7 mg/dL (0.0-1.0); Blood Urea Nitrogen 22 mg/dL (9-16); Calcium 9.8 mg/dL (8.4-10.2); Carbon Dioxide 25 mmol/L (22-29); Chloride 105 mmol/L (96-108); Creatinine Clr Calc Pharmacy 137.5; Estimated Glomerular Filt Rate > 60; Glucose Random 106 mg/dL (60-115); Magnesium 1.9 mg/dL (1.6-2.6); Potassium 4.5 mmol/L (3.3-5.1); Sodium 138 mmol/L (135-145); Troponin-I High Sensitivity < 2.7 ng/L (<3.5-35.0)
[2024-12-04 15:29] LABS: Alkaline Phosphatase 77 U/L (39-117)
[2024-12-04 15:35] VITALS: BP 117/85; PULSE 88; RESP 16; TEMP 36.8; O2SAT 99
[2024-12-04] MEDS: Morphine Sulfate 4 MG/ML CARTRIDGE IVPUSH (16:04)
[2024-12-04 16:07] VITALS: BP 117/85; PULSE 88; RESP 16; TEMP 36.8; O2SAT 99
== END 2024-12-04 16:21 | disposition home or self-care (01) ==
PROVIDERS: Physician Assistant Medical; Emergency Provider Emergency Medicine
DX: G43.909 Migraine, unspecified, not intractable, without status migrainosus (principal); S92.912A Unspecified fracture of left toe(s), initial encounter for closed fracture; X58.XXXA Exposure to other specified factors, initial encounter; M79.675 Pain in left toe(s); R11.2 Nausea with vomiting, unspecified; I44.4 Left anterior fascicular block; F17.210 Nicotine dependence, cigarettes, uncomplicated; Z03.818 Encounter for observation for suspected exposure to other biological agents ruled out; Y93.9 Activity, unspecified; Y92.9 Unspecified place or not applicable; Y99.9 Unspecified external cause status; Z79.4 Long term (current) use of insulin; Z79.899 Other long term (current) drug therapy
CPT/HCPCS: 0241U; 36415; 80053; 82010; 83735; 84484; 85025; 85610; 87651; 93005; 96374; 96375; 96376; 99284; 99285; J2270; J2405

== ENCOUNTER → 2024-12-04 12:12 | Outpatient (BNV) | payer MEDICAID, SELFPAY | PROVIDERS: Emergency Provider Emergency Medicine; Visit Provider Internal Medicine Cardiovascular Disease | DX: I44.4 Left anterior fascicular block (principal) | CPT/HCPCS: 93010 ==

== ENCOUNTER 2024-12-29 11:20 | Emergency (ER) | payer MEDICAID, SELFPAY ==
[2024-12-29 11:26] VITALS: BP 130/71; PULSE 72; O2SAT 100
[2024-12-29 11:29] VITALS: BP 127/87; PULSE 76; RESP 16; TEMP 36.3; O2SAT 100; BMI 15.2
[2024-12-29 11:33] LABS: Glucose, Whole Blood 127 mg/dL (60-115)
--- NOTE | 2024-12-29 11:40 | ED.GENADULT ---
HPI - General Adult General Chief complaint: General Medical Stated complaint: hypoglycemia Time Seen by Provider: 12/29/24 11:26 History of Present Illness HPI narrative: Patient is a 29-year-old male with a history of diabetes. Baseline is on Lantus insulin 22 units and also sliding scale insulin. Presented today noticing that he had blurred patient weakness. Had a low sugar in the 50s per EMS. Patient was given glucose given glucagon with sugar being 128 on arrival in emergency department symptom has improved patient feels sad because it is mother's day and he realized that his mom is paralyzed for many years. Very upset. Patient not suicidal not homicidal. Related Data Home Medications ?Medication ?Instructions ?Recorded ?Confirmed pantoprazole 40 mg tablet,delayed 40 mg PO DAILY@0630 12/19/22 06/01/23 release (Protonix) promethazine 25 mg tablet 25 mg PO TID PRN nausea/vomiting 01/23/23 06/01/23 acetaminophen 500 mg tablet 500 mg PO Q6H PRN 04/09/24 Previous Rx's ?Medication ?Instructions ?Recorded albuterol sulfate 90 mcg/actuation 2 puff inhalation QID PRN 04/13/24 aerosol inhaler shortness of breath or wheezing #6.7 grams cyclobenzaprine 10 mg tablet 10 mg PO TID #10 tabs 05/07/24 acetone (urine) test (Ketone Urine #25 ea 06/19/24 Test strips) blood-glucose sensor (Dexcom G7 #6 ea 06/19/24 Sensor device) blood-glucose,ring facer,cont #1 ea 06/19/24 (Dexcom G7 Package Line Operator) glucagon 3 mg/actuation nasal 3 mg intranasal ONCE PRN 06/19/24 spray (Baqsimi) unresponsive hypoglycemia 30 days #2 ea ondansetron 4 mg disintegrating 4 mg PO Q8H PRN nausea and 10/11/24 tablet vomiting #20 tabs insulin aspart U-100 100 unit/mL 1 sliding scale dose subcut 12/12/24 (3 mL) subcutaneous pen (Novolog TIDWMEAL 30 days #15 mL FlexPen U-100 Insulin aspart) insulin degludec 200 unit/mL (3 22 unit (0.11 mL) subcut DAILY 30 12/12/24 mL) subcutaneous pen (Tresi days #6 mL FlexTouch U-200 insulin) Allergies Allergy/AdvReac Type Severity Reaction Status Date / Time diphenhydramine Allergy Anaphylaxis Verified 12/29/24 11:31 [From Benadryl] haloperidol [From Haldol] Allergy Difficulty Verified 12/29/24 11:31 Swallowing lorazepam [From Ativan] AdvReac Difficulty Verified 12/29/24 11:31 Breathing metoclopramide [From Reglan] AdvReac Anxiety Verified 12/29/24 11:31 Review of Systems Review of Systems: No fever no chills no chest pain there is some change in vision which resolved with food and glucose Yes all other systems are reviewed and are negative [facility] Past Medical History Attestation statement: The following information was validated with the patient. Medical History Abdominal pain Dental infection Colitis DKA (diabetic ketoacidosis) Hyperglycemia 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 type 1 Surgical History History of esophagogastroduodenoscopy (EGD) Family History Family History Paternal Grandmother Breast cancer Family/Other Brain cancer Social History Social History Household Members: Other Household Members Other:: cousin Housing: House Do you presently have visiting nurse or other home services: No Alcohol intake: current Alcohol intake frequency: holidays/special occasions only Patient Tobacco Use Status: Current everyday Tobacco user Tobacco use type: Cigarette Cigarette Packs Per Day: 0 Cigarettes Per Day: 0 Years Smoked: 10 e-Cigarette/Vaping Use: Never Used Second Hand Smoke Exposure: No Substance Use Type: Marijuana Advance Directives: No Advance Directives Information Provided: Yes Do you have a plan to hurt others: No Plan service: No Current occupational status: employed 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 Oriented X3. No acute distress. Eyes: Pupils equal, round and reactive to light. ENT: Pharynx normal. Neck: Normal inspection. Neck supple. No lymph nodes noted. No crepitus CVS: Normal heart rate and rhythm. Pulses normal. Normal S1 and S2 Respiratory: No respiratory distress. Breath sounds normal. No Wheezing. No rales Abdomen: Soft and nontender. No rigidity. No distention. good BS x4 Skin: Skin warm and dry. Normal skin color. Normal skin turgor. Extremities: No lower extremity edema. Neurovascular intact to all extremities. No Lacerations. No Rash Neuro: Oriented X 3. No motor deficit. No sensory deficit. Moving all extermities. No slurred speech Medical Decision Making Medical Decision Making MDM Narrative: Patient no acute distress. Initially felt weak and sugar was low but was eating less than usual. Patient's sugar came back up given meal. Stayed up. Will discharge patient home. Will ask patient to lower his Lantus insulin by a little bit has been on 22 units will ask patient to drop it to 18 units for the next to 3 days until we can follow-up. food his normal diabetic diet as much as possible Differential Diagnosis Differential Diagnoses: The differential diagnosis associated with the presentation includes hypoglycemia electrolyte disturbance Admission/Observation Consideration of admission/observation: Escalation of care including admission/observation considered Lab Data [facility] Lab Attestation statement: I reviewed the patient's lab results. 12/29/24 11:46 12/29/24 11:46 Labs: Lab Results 12/29/24 12/29/24 12/29/24 Range/Units 11:29 11:46 12:32 WBC 5.6 (4.8-10.8) X10*3/uL RBC 5.23 (4.60-5.80) X10*6/uL Hgb 13.7 L (14.0-18.0) g/dl Hct 42.0 (42.0-52.0) % MCV 80.3 (80.0-98.0) fL MCH 26.2 L (27.0-33.0) pg MCHC 32.6 (31.0-36.0) g/dl RDW 14.5 (11.0-16.0) % Plt Count 254 (160-400) X10*3/uL MPV 9.8 (9.4-12.4) fL Immature Gran % (Auto) 0.4 (0.0-0.4) % Neut % (Auto) 57.5 (45-73) % Lymph % (Auto) 31.2 (20-40) % [place] % (Auto) 6.6 (2-11) % Eos % (Auto) 3.4 (0-4) % Baso % (Auto) 0.9 (0-2) % Lymph # (Auto) 1.8 (1.2-4.9) X10*3/uL [place] # (Auto) 0.4 (0.1-1.2) X10*3/uL Eos # (Auto) 0.2 (0.0-0.4) X10*3/uL Baso # (Auto) 0.1 (0.0-0.2) X10*3/uL Abs Immat Gran (auto) 0.02 (0.00-0.03) X10*3/uL Absolute Neuts (auto) 3.2 (2.0-8.3) x10*3/uL Absolute Nucleated RBC 0.000 (0.0-0.012) X10*3/uL Nucleated RBC % (auto) 0.0 (0.0-0.2) /100WBC Sodium 141 (135-145) mmol/L Potassium 4.4 (3.3-5.1) mmol/L Chloride 106 (96-108) mmol/L Carbon Dioxide 22 (22-29) mmol/L Anion Gap 17 (12-20) BUN 23 H (9-16) mg/dL Creatinine 0.74 (0.5-1.4) mg/dL Estim Creat Clear Calc 106.7 Estimated GFR > 60 POC Glucose 127 H (60-115) mg/dL Random Glucose 106 (60-115) mg/dL Calcium 9.7 (8.4-10.2) mg/dL Urine Color Yellow Urine Appearance Clear Urine pH 6.5 (5.0-9.0) Ur Specific Ola >= 1.030 H (1.005-1.025) Urine Protein Trace (Neg-Trace) mg/dL Urine Glucose (UA) 100 H (Negative) mg/dL Urine Ketones Negative (Negative) mg/dL Urine Blood Negative (Negative) Urine Nitrite Negative (Negative) Ur Leukocyte Esterase Negative (Negative) Urine RBC 0-2 (0-2) /HPF Urine WBC 0-5 (0-5) /HPF Ur Squamous Epith Cells 0-2 (0-2) /HPF Urine Bacteria None Seen (None Seen) Hyaline Casts 0-2 (0-2) /LPF 12/29/24 Range/Units 13:10 WBC (4.8-10.8) X10*3/uL RBC (4.60-5.80) X10*6/uL Hgb (14.0-18.0) g/dl Hct (42.0-52.0) % MCV (80.0-98.0) fL MCH (27.0-33.0) pg MCHC (31.0-36.0) g/dl RDW (11.0-16.0) % Plt Count (160-400) X10*3/uL MPV (9.4-12.4) fL Immature Gran % (Auto) (0.0-0.4) % Neut % (Auto) (45-73) % Lymph % (Auto) (20-40) % [place] % (Auto) (2-11) % Eos % (Auto) (0-4) % Baso % (Auto) (0-2) % Lymph # (Auto) (1.2-4.9) X10*3/uL [place] # (Auto) (0.1-1.2) X10*3/uL Eos # (Auto) (0.0-0.4) X10*3/uL Baso # (Auto) (0.0-0.2) X10*3/uL Abs Immat Gran (auto) (0.00-0.03) X10*3/uL Absolute Neuts (auto) (2.0-8.3) x10*3/uL Absolute Nucleated RBC (0.0-0.012) X10*3/uL Nucleated RBC % (auto) (0.0-0.2) /100WBC Sodium (135-145) mmol/L Potassium (3.3-5.1) mmol/L Chloride (96-108) mmol/L Carbon Dioxide (22-29) mmol/L Anion Gap (12-20) BUN (9-16) mg/dL Creatinine (0.5-1.4) mg/dL Estim Creat Clear Calc Estimated GFR POC Glucose 266 H (60-115) mg/dL Random Glucose (60-115) mg/dL Calcium (8.4-10.2) mg/dL Urine Color Urine Appearance Urine pH (5.0-9.0) Ur Specific Ola (1.005-1.025) Urine Protein (Neg-Trace) mg/dL Urine Glucose (UA) (Negative) mg/dL Urine Ketones (Negative) mg/dL Urine Blood (Negative) Urine Nitrite (Negative) Ur Leukocyte Esterase (Negative) Urine RBC (0-2) /HPF Urine WBC (0-5) /HPF Ur Squamous Epith Cells (0-2) /HPF Urine Bacteria (None Seen) Hyaline Casts (0-2) /LPF Independent Historian Clinical information obtained from an independent historian. History obtained from or confirmed by: EMS External Record Review External record reviewed: Inpatient record Chronic Conditions Patient?s care impacted by: Diabetes Social Determinants Patient?s care significantly limited by Social Determinants of Health including: Problems related to primary support group Discharge Plan Discharge Clinical Impression: Diabetes mellitus type 1, Hypoglycemia Patient Disposition: Home, Self-Care Instructions: Diabetes and Nutrition (ED), Diabetes Type 1: Management (ED), How to Check your Blood Sugar (DC) Additional Instructions: please eat your diabetic diet. Please lower your dose of Lantus insulin from 22 units to 18 units for the next 3 days. Monitor your sugar closely. Prescriptions: No Action (DME) Dexcom G7 Sensor Device See Rx Instructions .ROUTE .MEDSUPPLY Qty: 6 6RF Rx Instructions: As directed every 10 days (DME) Dexcom G7 Package Line Operator Misc See Rx Instructions .ROUTE .MEDSUPPLY Qty: 1 1RF Rx Instructions: As directed (DME) Ketone Urine Test Strip See Rx Instructions .ROUTE .MEDSUPPLY Qty: 25 3RF Rx Instructions: As directed prn glucose over 250, nausea/vomiting tid Baqsimi 3 mg/actuation spray,non-aerosol 3 mg intranasal ONCE MDD 6mg may repeat in 15 minutes PRN (Reason: unresponsive hypoglycemia) 30 Days Qty: 2 1RF insulin degludec [Tresiba FlexTouch U-200] 200 unit/mL (3 mL) insulin pen 22 unit subcut DAILY 30 Days Qty: 6 11RF insulin aspart U-100 [Novolog FlexPen U-100 Insulin] 100 unit/mL (3 mL) insulin pen 1 sliding scale dose subcut TIDWMEAL MDD 44 units 30 Days Qty: 15 11RF Rx Instructions: 1 unit for every 35 points over 135 1 unit for every 15 carbohydrates pantoprazole [Protonix] 40 mg tablet,delayed release (DR/EC) 40 mg PO DAILY@0630 promethazine 25 mg tablet 25 mg PO TID PRN (Reason: nausea/vomiting) ondansetron 4 mg tablet,disintegrating 4 mg PO Q8H PRN (Reason: nausea and vomiting) Qty: 20 0RF albuterol sulfate 90 mcg/actuation HFA aerosol inhaler 2 puff inhalation QID PRN (Reason: shortness of breath or wheezing) Qty: 6.7 0RF cyclobenzaprine 10 mg tablet 10 mg PO TID Qty: 10 0RF acetaminophen 500 mg tablet 500 mg PO Q6H PRN Print Language: Maltese
--- NOTE | 2024-12-29 11:40 | PC.NURSE ---
poc taken upon triage. 127. patient provided with sandwich and shaila aydee. resting quietly in room w/ call brand within reach
[2024-12-29 11:54] LABS: MANUAL DIFF FLAG NO
--- OUTSIDE RECORDS SUMMARY | 2024-12-29 11:55 | XMS_ITS | Encounter Summary ---
Author Organization [employer] Address [address] [place] [address] Care Team Providers Care Clinical Trial Leader Name Role Phone Amna Urrutia Primary Care Provider [phone] Name, Everett ROSE Primary Care Provider [phone] Sahil Chen CNP Primary Care Provider [phone] Reason for Visit * Reason Onset Date Comments Med Refill 09/27/2023 Encounter Details Date Type Department Care Team (Late st Contact Info) Description 09/27/2023 Refill [facility] [address] [place], [place] [phone] Amna Urrutia FNP [address] [place] [address] Type 1 diabetes mellitus with hyperglycemia ([facility]/HCC) Social History Tobacco Use Types Packs/Day [...] Care Team (Late st Contact Info) Description 01/31/2025 1:00 PM EDT Office Visit [facility] [address] [place] [address] Sahil Chen CNP [address] [place] [address] documented as of this encounter Visit Diagnoses Diagnosis Type 1 diabetes mellitus with hyperglycemia (CMS/HCC) documented in this encounter Additional Health Concerns Assessment Noted Time PHQ-9 Depression Total Score: 16 023 8:52 AM EDT documented as of this encounter Care Teams Clinical Trial Leader Relationship Specialty Start Date End Date Amna Urrutia FNP [address] [place] [address] PCP - General Family Medicine 01/01/23 04/18/24 Everett Angulo MD [address] [place] [address] PCP - General Internal Medicine 04/19/24 10/08/24 Sahil Chen CNP [address] [place] [address] PCP - General Family Medicine 10/09/24 Chris Pack Jr Office SweeperKnotting Machine Operator 09/04/24 documented as of this encounter
--- OUTSIDE RECORDS SUMMARY | 2024-12-29 11:55 | XMS_ITS | Encounter Summary ---
Author Organization [email or web address] Address [address] 7[address] [place] [address] Care Team Providers Care C 13 Catapult Operator Name Role Phone Name, Everett ROSE Primary Care Provider [phone] Sahil Chen CNP Primary Care Provider [phone] Reason for Visit * Reason Comments Med Refill Encounter Details Date Type Department Care Team (Late st Contact Info) Description 05/03/2024 Refill [facility] [address] [place], [place] [phone] Amna Urrutia FNP [address] [place] [address] Type 1 diabetes mellitus with hyperglycemia (CMS/[facility]) Social History Tobacco Use Types [...] Description 01/31/2025 1:00 PM EDT Office Visit [facility] [address] [place] [address] Sahil Chen CNP [address] [place] [address] documented as of this encounter Visit Diagnoses Diagnosis Type 1 diabetes mellitus with hyperglycemia (CMS/HCC) documented in this encounter Additional Health Concerns Assessment Noted Time PHQ-9 Depression Total Score: 20 024 2:42 PM EDT documented as of this encounter Care Teams C 13 Catapult Operator Relationship Specialty Start Date End Date Name, MD Everett [address] [place] [address] PCP - General Internal Medicine 04/19/24 10/08/24 Sahil Chen CNP [address] [place] [address] [phone] PCP - General Family Medicine 10/09/24 Chris Pack Jr Executive Director Contract ShopOperational Intelligence Officer 09/04/24 documented as of this encounter
--- OUTSIDE RECORDS SUMMARY | 2024-12-29 11:55 | XMS_ITS | Encounter Summary ---
Author Organization [employer] Address [address] [place] [address] Care Team Providers Care Earth Science Technical Officer Name Role Phone Amna Urrutia Primary Care Provider [phone] Name, Everett ROSE Primary Care Provider [phone] Sahil Chen CNP Primary Care Provider [phone] Reason for Visit * Reason Comments Med Refill Encounter Details Date Type Department Care Team ([facility] st Contact Info) Description 09/08/2023 Refill [facility] [address] [place], [place] [phone] Amna Urrutia FNP [address] [place] [address] Type 1 diabetes mellitus with hyperglycemia ([facility]) Social History Tobacco Use Types Packs/Day Years [...] Description 01/31/2025 1:00 PM EDT Office Visit [facility] [address] [place] [address] Sahil Chen CNP [address] [place] [address] documented as of this encounter Visit Diagnoses Diagnosis Type 1 diabetes mellitus with hyperglycemia (CMS/HCC) documented in this encounter Additional Health Concerns Assessment Noted Time PHQ-9 Depression Total Score: 16 023 8:52 AM EDT documented as of this encounter Care Teams Earth Science Technical Officer Relationship Specialty Start Date End Date Amna Urrutia FNP [address] [place] [address] PCP - General Family Medicine 01/01/23 04/18/24 Everett Angulo MD [address] [place] [address] PCP - General Internal Medicine 04/19/24 10/08/24 Sahil Chen CNP [address] [place] [address] PCP - General Family Medicine 10/09/24 Chris Pack Jr Pay Per Click StrategistMohs Surgeon 09/04/24 documented as of this encounter
--- OUTSIDE RECORDS SUMMARY | 2024-12-29 11:55 | XMS_ITS | Encounter Summary ---
Author Organization [employer] Address [address] [facility] 7t [place] [address] Care Team Providers Care Retail Cashier Name Role Phone Amna Urrutia Primary Care Provider [phone], Everett ROSE Primary Care Provider [phone] Sahil Chen CNP Primary Care Provider [phone] Reason for Visit * Reason Onset Date Comments Med Refill 07/17/2023 Encounter Details Date Type Department Care Team (Late st Contact Info) Description 07/17/2023 Refill [facility] [address] [place] [address] Sandra Leal MD [address] [place] [address] Social History Tobacco Use Types Packs/Day Years [...] Description 01/31/2025 1:00 PM EDT Office Visit [facility] [address] [place] [address] Sahil Chen CNP [address] [place] [address] documented as of this encounter Visit Diagnoses Not on filedocumented in this encounter Additional Health Concerns Assessment Noted Time PHQ-9 Depression Total Score: 16 023 8:52 AM EDT documented as of this encounter Care Teams Retail Cashier Relationship Specialty Start Date End Date Amna Urrutia FNP [address] [place] [address] PCP - General Family Medicine 01/01/23 04/18/24 Everett Angulo MD [address] [place] [address] PCP - General Internal Medicine 04/19/24 10/08/24 Sahil Chen CNP [address] [place] [address] PCP - General Family Medicine 10/09/24 Chris Pack Jr Director Learning And DevelopmentGreens Keeper 09/04/24 documented as of this encounter
--- OUTSIDE RECORDS SUMMARY | 2024-12-29 11:55 | XMS_ITS | Encounter Summary ---
Author Organization [facility] Address [address] [place] [address] Phone Care Team Providers Care Vest Front Presser Name Role Phone Santos Mueller MD Primary Care Provider [phone] Encounter Details Date Type Department Care Team (Late st Contact Info) Description 07/28/2023 Documentation Only [facility] [place], [address] [place] [address] Santos Mueller MD [address] [place] [address] Social History Tobacco Use Types [...] on filedocumented in this encounter Care Teams Vest Front Presser Relationship Specialty Start Date End Date Santos Mueller MD [address] [place] [address] PCP - General Emergency Medicine 07/28/23 documented as of this encounter
--- OUTSIDE RECORDS SUMMARY | 2024-12-29 11:55 | XMS_ITS | Encounter Summary ---
Author Organization [employer] Address [address] 7t [place] [address] Care Team Providers Care Miter Operator Name Role Phone Amna Urrutia Primary Care Provider [phone] Name, Everett ROSE Primary Care Provider [phone] Sahil Chen CNP Primary Care Provider [phone] Reason for Visit * Reason Onset Date Comments Med Refill 07/28/2023 Encounter Details Date Type Department Care Team (Late st Contact Info) Description 07/28/[address] [facility] [address] [place] [address] Amna Urrutia FNP [address] [place] [address] Social History Tobacco Use Types Packs/Day Years [...] Description 01/31/2025 1:00 PM EDT Office Visit [facility] [address] [place] [address] Sahil Chen CNP [address] [place] [address] documented as of this encounter Visit Diagnoses Not on filedocumented in this encounter Additional Health Concerns Assessment Noted Time PHQ-9 Depression Total Score: 16 023 8:52 AM EDT documented as of this encounter Care Teams Miter Operator Relationship Specialty Start Date End Date Amna Urrutia FNP [address] [place] [address] PCP - General Family Medicine 01/01/23 04/18/24 Everett Angulo MD [address] [place] [address] PCP - General Internal Medicine 04/19/24 10/08/24 Sahil Chen CNP [address] [place] [address] [phone] PCP - General Family Medicine 10/09/24 Chris Pack Jr Jig Mill OperatorDisease Case Manager 09/04/24 documented as of this encounter
--- OUTSIDE RECORDS SUMMARY | 2024-12-29 11:55 | XMS_ITS | Encounter Summary ---
Author Organization [employer] Address [address] [facility] 7t [place] [address] Care Team Providers Care Heavy Equipment Supervisor Name Role Phone Amna Urrutia Primary Care Provider [phone] Name, Everett ROSE Primary Care Provider [phone] Sahil Chen CNP Primary Care Provider [phone] Reason for Visit * Reason Onset Date Comments Reschedule 02/14/2024 Encounter Details Date Type Department Care Team ([facility] st Contact Info) Description 02/14/2024 Telephone [facility] [address] [place] [address] Amna Urrutia FNP [address] [place] [address] Reschedule Social History Tobacco Use Types Packs/Day [...] to reschedule 02/13 follow up extended appointment. Cnc Operator Programmer attempted to reschedule but no availability. Please contact pt at [phone] documented in this encounter Plan of Treatment Upcoming Encounters Date Type Department Care Team (Late st Contact Info) Description 01/31/2025 1:00 PM EDT Office Visit [facility] [address] [place] [address] Sahil Chen CNP [address] [place] [address] documented as of this encounter Visit Diagnoses Not on filedocumented in this encounter Additional Health Concerns Assessment Noted Time PHQ-9 Depression Total Score: 10 024 1:01 PM EDT documented as of this encounter Care Teams Heavy Equipment Supervisor Relationship Specialty Start Date End Date Amna Urrutia FNP [address] [place], [place] [phone] PCP - General Family Medicine 01/01/23 04/18/24 Name, MD Everett [address] [place], [place] [phone] PCP - General Internal Medicine 04/19/24 10/08/24 Sahil Chen CNP [address] [place], [place] [phone] PCP - General Family Medicine 10/09/24 Chris Pack Jr Alteration InspectorRecycling Operator 09/04/24 documented as of this encounter
--- OUTSIDE RECORDS SUMMARY | 2024-12-29 11:55 | XMS_ITS | Encounter Summary ---
Author Organization [employer] Address [address] [place] [address] Care Team Providers Care Associate Pathologist Name Role Phone Amna Urrutia Primary Care Provider [phone] Name, Everett ROSE Primary Care Provider [phone] Sahil Chen CNP Primary Care Provider [phone] Reason for Visit * Reason Comments Med Refill Encounter Details Date Type Department Care Team ([facility] st Contact Info) Description 09/11/2023 Refill [facility] [address] [place], [place] [phone] Amna Urrutia FNP [address] [place] [address] Type 1 diabetes mellitus with hyperglycemia ([facility]) Social History Tobacco Use Types Packs/Day [...] Description 01/31/2025 1:00 PM EDT Office Visit [facility] [address] [place] [address] Sahil Chen CNP [address] [place] [address] documented as of this encounter Visit Diagnoses Diagnosis Type 1 diabetes mellitus with hyperglycemia (CMS/HCC) documented in this encounter Additional Health Concerns Assessment Noted Time PHQ-9 Depression Total Score: 16 023 8:52 AM EDT documented as of this encounter Care Teams Associate Pathologist Relationship Specialty Start Date End Date Amna Urrutia FNP [address] [place] [address] PCP - General Family Medicine 01/01/23 04/18/24 Everett Angulo MD [address] [place] [address] PCP - General Internal Medicine 04/19/24 10/08/24 Sahil Chen CNP [address] [place] [address] PCP - General Family Medicine 10/09/24 Chris Pack Jr Configuration Release ManagerWood Fence Installer 09/04/24 documented as of this encounter
--- OUTSIDE RECORDS SUMMARY | 2024-12-29 11:55 | XMS_ITS | Encounter Summary ---
Author Organization [employer] Address [address] [facility] 7t [place] [address] Care Team Providers Care Ammunition Assembly Laborer Name Role Phone Amna Urrutia Primary Care Provider [phone] Name, Everett ROSE Primary Care Provider [phone] Sahil Chen CNP Primary Care Provider [phone] Reason for Visit * Reason Onset Date Comments Appointment Request 09/08/2023 Encounter Details Date Type Department Care Team ([facility] Contact Info) Description 09/08/2023 Telephone [facility] MEDICINE [address] [place] [address] Amna Urrutia FNP [address] [place] [address] Appointment Request Social History Tobacco Use Types [...] to reschedule missed appt on 09/06 however junior copywriter was not able to offer apptdue to the provider did not have any availably documented in this encounter Plan of Treatment Upcoming Encounters Date Type Department Care Team (Late st Contact Info) Description 01/31/2025 1:00 PM EDT Office Visit [facility] MEDICINE [address] [place], [place] [phone] Sahil Chen CNP 230 [place] [address] documented as of this encounter Visit Diagnoses Not on filedocumented in this encounter Additional Health Concerns Assessment Noted Time PHQ-9 Depression Total Score: 16 023 8:52 AM EDT documented as of this encounter Care Teams Ammunition Assembly Laborer Relationship Specialty Start Date End Date Amna Urrutia FNP [address] [place] [address] PCP - General Family Medicine 01/01/23 04/18/24 Everett Angulo MD 230 [place], [place] [phone] PCP - General Internal Medicine 04/19/24 10/08/24 Sahil Chen CNP [address] [place] [address] [phone] PCP - General Family Medicine 10/09/24 Chris Pack Jr Head Of Digital Advertising & IntegrationSealing Machine Operator 09/04/24 documented as of this encounter
--- OUTSIDE RECORDS SUMMARY | 2024-12-29 11:55 | XMS_ITS | Encounter Summary ---
Author Organization [employer] Address [address] [facility] [address] 7t [place] [address] Care Team Providers Care Offshore Wind Operations Manager Name Role Phone Name, Everett ROSE Primary Care Provider [phone] Sahil Chen CNP Primary Care Provider [phone] Encounter Details Date Type Department Care Team (Late st Contact Info) Description 04/21/2024 Orders Only [facility] CHC MED & PEDS [address] [place], [place] [phone] Amna Urrutia FNP [address] [place], [place] [phone] Social History Tobacco Use Types Packs/Day Years [...] Description 01/31/2025 1:00 PM EDT Office Visit [facility] MEDICINE [address] [place] [address] Sahil Chen CNP 230 [place] [address] documented as of this encounter Visit Diagnoses Not on filedocumented in this encounter Additional Health Concerns Assessment Noted Time PHQ-9 Depression Total Score: 20 024 2:42 PM EDT documented as of this encounter Care Teams Offshore Wind Operations Manager Relationship Specialty Start Date End Date Name, MD Everett [address] [place] [address] PCP - General Internal Medicine 04/19/24 10/08/24 Sahil Chen CNP [address] [place] [address] PCP - General Family Medicine 10/09/24 Chris Pack Jr Boat Canvas InstallerCredit Front Office Developer 09/04/24 documented as of this encounter
--- OUTSIDE RECORDS SUMMARY | 2024-12-29 11:55 | XMS_ITS | Encounter Summary ---
Author Organization [employer] Address [address] [facility] [address] 7t [place] [address] Care Team Providers Care Advertising Executive Name Role Phone mAna Urrutia Primary Care Provider [phone] Name, Everett ROSE Primary Care Provider [phone] Sahil Chen CNP Primary Care Provider [phone] Reason for Visit * Reason Onset Date Comments Med Refill 05/30/2023 Encounter Details Date Type Department Care Team (Late st Contact Info) Description 05/30/2023 Refill [facility] MED[facility] [address] [place] [address] Amna Urrutia FNP [address] [place] [address] Social History Tobacco Use Types Packs/Day Years [...] 1:00 PM EDT Office Visit [facility] MED[facility]INE [address] [place] [address] Sahli Chen CNP 230 [place] [address] documented as of this encounter Visit Diagnoses Not on filedocumented in this encounter Additional Health Concerns Assessment Noted Time PHQ-9 Depression Total Score: 16 023 8:52 AM EDT documented as of this encounter Care Teams Advertising Executive Relationship Specialty Start Date End Date Amna Urrutia FNP [address] [place] [address] PCP - General Family Medicine 01/01/23 04/18/24 Everett Angulo MD [address] [place] [address] PCP - General Internal Medicine 04/19/24 10/08/24 Sahil Chen CNP [address] [place] [address] [phone] PCP - General Family Medicine 10/09/24 Chris Pack Jr Environmental DirectorPress Officer 09/04/24 documented as of this encounter
--- OUTSIDE RECORDS SUMMARY | 2024-12-29 11:55 | XMS_ITS | Encounter Summary ---
Author Organization [employer] Address [address] [facility] [address] 7t [place] [address] Care Team Providers Care Guest Service Host Name Role Phone Amna Urrutia Primary Care Provider [phone] Name, Everett ROSE Primary Care Provider [phone] Sahil Chen CNP Primary Care Provider [phone] Reason for Visit * Reason Comments Med Refill Encounter Details Date Type Department Care Team ([facility] st Contact Info) Description 10/04/2023 Refill [facility] MEDICINE 230 [place], [place] [phone] Amna Urrutia FNP 230 [place] [address] Type 1 diabetes mellitus with hyperglycemia ([facility]) Social History Tobacco Use Types [...] Description 01/31/2025 1:00 PM EDT Office Visit [facility] MEDICINE 230 [place] [address] Sahil Chen CNP 230 [place] [address] documented as of this encounter Visit Diagnoses Diagnosis Type 1 diabetes mellitus with hyperglycemia (CMS/HCC) documented in this encounter Additional Health Concerns Assessment Noted Time PHQ-9 Depression Total Score: 16 023 8:52 AM EDT documented as of this encounter Care Teams Guest Service Host Relationship Specialty Start Date End Date Amna Urrutia FNP 230 [place] [address] PCP - General Family Medicine 01/01/23 04/18/24 Everett Angulo MD [address] [place] [address] [phone] PCP - General Internal Medicine 04/19/24 10/08/24 Sahil Chen CNP [address] [place] [address] PCP - General Family Medicine 10/09/24 Chris Pack Jr Clubhouse ManagerBead Worker Sewing 09/04/24 documented as of this encounter
--- OUTSIDE RECORDS SUMMARY | 2024-12-29 11:55 | XMS_ITS | Encounter Summary ---
Author Organization [employer] Address [address] [facility] [address] 7t [place] [address] Care Team Providers Care Clothespin Drier Operator Name Role Phone Amna Urrutia Primary Care Provider [phone] Name, Everett ROSE Primary Care Provider Sahil Chen CNP Primary Care Provider [phone] Reason for Visit * Reason Onset Date Comments Med Refill 07/17/2023 Encounter Details Date Type Department Care Team (Late st Contact Info) Description 07/17/2023 Refill [facility] MEDICINE 230 [place] [address] Amna Urrutia FNP 230 [place] [address] Social History Tobacco Use Types Packs/Day Years [...] Description 01/31/2025 1:00 PM EDT Office Visit [facility] MEDICINE [address] [place] [address] Sahil Chen CNP 230 [place] [address] documented as of this encounter Visit Diagnoses Not on filedocumented in this encounter Additional Health Concerns Assessment Noted Time PHQ-9 Depression Total Score: 16 023 8:52 AM EDT documented as of this encounter Care Teams Clothespin Drier Operator Relationship Specialty Start Date End Date Amna Urrutia FNP [address] [place] [address] PCP - General Family Medicine 01/01/23 04/18/24 Everett Angulo MD [address] [place] [address] PCP - General Internal Medicine 04/19/24 10/08/24 Sahil Chen CNP [address] [place] [address] [phone] PCP - General Family Medicine 10/09/24 Chris Pack Jr Tank WelderNote Teller 09/04/24 documented as of this encounter
--- OUTSIDE RECORDS SUMMARY | 2024-12-29 11:55 | XMS_ITS | Encounter Summary ---
Author Organization [employer] Address [address] [facility] 7t [place] [address] Care Team Providers Care Metal Casting Trades Worker Name Role Phone Amna Urrutia Primary Care Provider [phone] Adele, Everett ROSE Primary Care Provider Sahil Chen CNP Primary Care Provider [phone] Reason for Visit * Reason Onset Date Comments Med Refill 07/15/2023 Encounter Details Date Type Department Care Team (Late st Contact Info) Description 07/15/2023 Refill [facility] MEDICINE 230 [place] [address] Sandra Leal MD 230 [place] [address] Social History Tobacco Use Types Packs/Day Years [...] Description 01/31/2025 1:00 PM EDT Office Visit [facility] MEDICINE [address] [place] [address] Sahil Chen CNP 230 [place] [address] documented as of this encounter Visit Diagnoses Not on filedocumented in this encounter Additional Health Concerns Assessment Noted Time PHQ-9 Depression Total Score: 16 023 8:52 AM EDT documented as of this encounter Care Teams Metal Casting Trades Worker Relationship Specialty Start Date End Date Amna Urrutia FNP [address] [place] [address] PCP - General Family Medicine 01/01/23 04/18/24 Everett Angulo MD [address] [place] [address] PCP - General Internal Medicine 04/19/24 10/08/24 Sahil Chen CNP [address] [place] [address] PCP - General Family Medicine 10/09/24 Chris Pack Jr Osteopathic PhysicianProfile Saw Setup Operator 09/04/24 documented as of this encounter
--- OUTSIDE RECORDS SUMMARY | 2024-12-29 11:55 | XMS_ITS | Encounter Summary ---
Author Organization [employer] Address [address] 7t [place] [address] Care Team Providers Care Market Development Executive Name Role Phone Amna Urrutia Primary Care Provider [phone] Adele, Everett ROSE Primary Care Provider [phone] Sahil Chen CNP Primary Care Provider [phone] Reason for Visit * Reason Onset Date Comments Med Refill 07/28/2023 Encounter Details Date Type Department Care Team (Late st Contact Info) Description 07/28/2023 Refill [facility] MEDICINE 230 [place], [place] [phone] Denice Rubin MD 230 [place] [address] Social History Tobacco Use Types Packs/Day Years [...] Description 01/31/2025 1:00 PM EDT Office Visit [facility] MEDICINE [address] [place] [address] Saihl Chen CNP 230 [place] [address] documented as of this encounter Visit Diagnoses Not on filedocumented in this encounter Additional Health Concerns Assessment Noted Time PHQ-9 Depression Total Score: 16 023 8:52 AM EDT documented as of this encounter Care Teams Market Development Executive Relationship Specialty Start Date End Date Amna Urrutia FNP [address] [place] [address] PCP - General Family Medicine 01/01/23 04/18/24 Everett Angulo MD [address] [place] [address] PCP - General Internal Medicine 04/19/24 10/08/24 Sahil Chen CNP [address] [place] [address] [phone] PCP - General Family Medicine 10/09/24 Chris Pack Jr Sales CloserFlexographic Printing Machinist 09/04/24 documented as of this encounter
--- OUTSIDE RECORDS SUMMARY | 2024-12-29 11:55 | XMS_ITS | Encounter Summary ---
Author Organization [employer] Address [address] [facility] [address] 7t [place] [address] Care Team Providers Care Cd Storage And Materials Make Up Helper Name Role Phone Amna Urrutia Primary Care Provider [phone] Adele, Everett ROSE Primary Care Provider [phone] Sahil Chen CNP Primary Care Provider [phone] Encounter Details Date Type Department Care Team (Late st Contact Info) Description 06/28/2023 Orders Only [facility] 230 [place], [place] [phone] Santos uMeller MD 230 [place] [address] Social History Tobacco Use Types Packs/Day Years [...] Description 01/31/2025 1:00 PM EDT Office Visit [facility] MEDICINE 230 [place] [address] Sahil Chen CNP 230 [place] [address] documented as of this encounter Visit Diagnoses Not on filedocumented in this encounter Additional Health Concerns Assessment Noted Time PHQ-9 Depression Total Score: 16 023 8:52 AM EDT documented as of this encounter Care Teams Cd Storage And Materials Make Up Helper Relationship Specialty Start Date End Date Amna Urrutia FNP [address] [place] [address] PCP - General Family Medicine 01/01/23 04/18/24 Everett Angulo MD [address] [place] [address] PCP - General Internal Medicine 04/19/24 10/08/24 Sahil Chen CNP [address] [place] [address] PCP - General Family Medicine 10/09/24 Chris Pack Jr Refractory Grinder OperatorTechnology Internship 09/04/24 documented as of this encounter
--- OUTSIDE RECORDS SUMMARY | 2024-12-29 11:55 | XMS_ITS | Encounter Summary ---
Author Organization [employer] Address 75 [facility] 7t [place] [address] Care Team Providers Care Entry Level Sales Associate Name Role Phone Amna Urrutia Primary Care Provider [phone] Name, Everett ROSE Primary Care Provider [phone] Sahil Chen CNP Primary Care Provider [phone] Reason for Visit * Reason Onset Date Comments Nurse Triage 05/30/2023 Encounter Details Date Type Department Care Team ([facility] st Contact Info) Description 05/30/2023 Telephone [facility]INE 230 [place] [address] Amna Urrutia FNP 230 [place] [address] Nurse Triage Social History Tobacco Use Types [...] obtain discharge summary for patient seen at [facility] 05/29/23 following head injury at work. Scheduled for follow up below Future Appointments Date Time Provider Department Center 05/31/2023 11:30 AM Denice Rubin MD [facility] * Telephone Encounter - Marline Vega RN - 05/30/2023 1:27 PM EDT Call to Bradford Torres, reports having been seen at [facility] 05/29 due to concussion that occurred [...] Center 05/31/2023 11:30 AM Denice Rubin MD [facility] Video visit offer not recorded Positive Triage [...] and states is still in pain ( check writer was un able to take all details information due to call hanging up ) . Patient advised will forward to triage nursefor follow up. documented in this encounter Plan of Treatment Upcoming Encounters Date Type Department Care Team (Late st Contact Info) Description 01/31/2025 1:00 PM EDT Office Visit [facility] MEDICINE 230 [place] [address] Sahil Chen CNP 230 [place] [address] documented as of this encounter Visit Diagnoses Not on filedocumented in this encounter Additional Health Concerns Assessment Noted Time PHQ-9 Depression Total Score: 16 023 8:52 AM EDT documented as of this encounter Care Teams Entry Level Sales Associate Relationship Specialty Start Date End Date Amna Urrutia FNP [address] [place] [address] PCP - General Family Medicine 01/01/23 04/18/24 Everett Angulo MD [address] [place] [address] [phone] PCP - General Internal Medicine 04/19/24 10/08/24 Sahil Chen CNP [address] [place] [address] PCP - General Family Medicine 10/09/24 Chris Pack Jr Morgue KeeperAuto Washer 09/04/24 documented as of this encounter
--- OUTSIDE RECORDS SUMMARY | 2024-12-29 11:55 | XMS_ITS | Clinical Summary ---
Author Organization [facility], Address [address] [place] [address] [place] [address] Phone Care Team Providers Care Hide And Skin Processing Worker Name Role Phone Santos Mueller MD Primary Care Provider [phone] Allergies Active Allergy Reactions Criticality Noted Date [...] 06/08/20 16 Insurance Medicaid [place] Care Teams Hide And Skin Processing Worker Relationship Specialty Start Date End Date Santos Mueller MD [address] [place] [phone] PCP - General Emergency Medicine 07/28/23
--- OUTSIDE RECORDS SUMMARY | 2024-12-29 11:55 | XMS_ITS | Encounter Summary ---
Author Organization [employer] Address [address] [facility] [address] 7t [place] [address] Care Team Providers Care Pipe Connector Name Role Phone Amna Urrutia Primary Care Provider [phone] Name, Everett ROSE Primary Care Provider [phone] Sahil Chen CNP Primary Care Provider [phone] Reason for Visit * Reason Comments Med Refill Encounter Details Date Type Department Care Team ([facility] st Contact Info) Description 05/30/2023 Refill [facility] MEDICINE 230 [place], [place] [phone] Amna Urrutia FNP 230 [place] [address] Social History Tobacco Use Types Packs/Day Years [...] Description 01/31/2025 1:00 PM EDT Office Visit [facility] MEDICINE [address] [place] [address] Sahil Chen CNP 230 [place] [address] documented as of this encounter Visit Diagnoses Not on filedocumented in this encounter Additional Health Concerns Assessment Noted Time PHQ-9 Depression Total Score: 16 023 8:52 AM EDT documented as of this encounter Care Teams Pipe Connector Relationship Specialty Start Date End Date Amna Urrutia FNP [address] [place] [address] PCP - General Family Medicine 01/01/23 04/18/24 Everett Angulo MD [address] [place] [address] [phone] PCP - General Internal Medicine 04/19/24 10/08/24 Sahil Chen CNP [address] [place] [address] [phone] PCP - General Family Medicine 10/09/24 Chris Pack Jr After School Program TeacherVoice Engineer 09/04/24 documented as of this encounter
--- OUTSIDE RECORDS SUMMARY | 2024-12-29 11:55 | XMS_ITS | Encounter Summary ---
Author Organization [employer] Address [address] [facility] [address] 7t [place] [address] Care Team Providers Care Children'S Book Author Name Role Phone Amna Urrutia Primary Care Provider [phone] Name, Everett ROSE Primary Care Provider [phone] Sahil Chen CNP Primary Care Provider [phone] Reason for Visit * Reason Onset Date Comments Med Refill 07/15/2023 Encounter Details Date Type Department Care Team (Late st Contact Info) Description 07/15/2023 Refill [facility] 230 [place], [place] [phone] Amna Urrutia FNP [address] [place] [address] Social History Tobacco Use Types Packs/Day Years [...] Description 01/31/2025 1:00 PM EDT Office Visit [facility] MEDICINE [address] [place] [address] Sahil Chen CNP 230 [place] [address] documented as of this encounter Visit Diagnoses Not on filedocumented in this encounter Additional Health Concerns Assessment Noted Time PHQ-9 Depression Total Score: 16 023 8:52 AM EDT documented as of this encounter Care Teams Children'S Book Author Relationship Specialty Start Date End Date Amna Urrutia FNP [address] [place] [address] PCP - General Family Medicine 01/01/23 04/18/24 Everett Angulo MD [address] [place] [address] PCP - General Internal Medicine 04/19/24 10/08/24 Sahil Chen CNP [address] [place] [address] PCP - General Family Medicine 10/09/24 Chris Pack Jr Grants AdministratorBus Mechanic 09/04/24 documented as of this encounter
[2024-12-29 11:56] LABS: Basophils Absolute Auto 0.1 X10*3/uL (0.0-0.2); Basophils Percent Auto 0.9 % (0-2); Eosinophils Absolute Auto 0.2 X10*3/uL (0.0-0.4); Eosinophils Percent Auto 3.4 % (0-4); Hemoglobin 13.7 g/dl (14.0-18.0); Imm Gran Abs Auto 0.02 X10*3/uL (0.00-0.03); Imm Gran Pct Auto 0.4 % (0.0-0.4); Lymphocytes Absolute Auto 1.8 X10*3/uL (1.2-4.9); Lymphocytes Percent Auto 31.2 % (20-40); Mean Corpuscular HGB Conc 32.6 g/dl (31.0-36.0); Mean Corpuscular Hemoglobin 26.2 pg (27.0-33.0); Mean Corpuscular Volume 80.3 fL (80.0-98.0); Mean Platelet Volume 9.8 fL (9.4-12.4); Monocytes Absolute Auto 0.4 X10*3/uL (0.1-1.2); Monocytes Percent Auto 6.6 % (2-11); Neutrophils Absolute Auto 3.2 x10*3/uL (2.0-8.3); Neutrophils Percent Auto 57.5 % (45-73); Platelet Count 254 X10*3/uL (160-400); Red Blood Count 5.23 X10*6/uL (4.60-5.80); Red Cell Distribution Width 14.5 % (11.0-16.0); White Blood Count 5.6 X10*3/uL (4.8-10.8)
--- OUTSIDE RECORDS SUMMARY | 2024-12-29 11:56 | XMS_ITS | Encounter Summary ---
Author Organization [facility] Address [address] [place] [address] Phone Care Team Providers Care Trouble Dispatcher Name Role Phone Santos Mueller MD Primary Care Provider [phone] Encounter Details Date Type Department Care Team (Late st Contact Info) Description 08/05/2024 Documentation Only [facility], [address] [place] [address] Jessica Sprague [address] [place] [address] Social History Tobacco Use Types [...] on filedocumented in this encounter Care Teams Trouble Dispatcher Relationship Specialty Start Date End Date Santos Mueller MD 230 [place] [address] PCP - General Emergency Medicine 07/28/23 documented as of this encounter
--- OUTSIDE RECORDS SUMMARY | 2024-12-29 11:56 | XMS_ITS | Encounter Summary ---
Author Organization [employer] Address [address] [facility] [address] 7t [place] [address] Care Team Providers Care Sdc Teacher Name Role Phone Amna Urrutia Primary Care Provider [phone] Adele, Everett ROSE Primary Care Provider [phone] Sahil Chen CNP Primary Care Provider [phone] Reason for Visit * Reason Onset Date Comments reaction to medication 10/24/2022 Encounter Details Date Type Department Care Team ([facility] st Contact Info) Description 10/24/2022 Telephone [facility] [address] [place] [address] Marycruz Oseguera DDS [address] [place] [address] reaction to medication Social History Tobacco Use [...] Description 01/31/2025 1:00 PM EDT Office Visit [facility] MEDICINE [address] [place], [place] [phone] Sahil Chen CNP 230 [place] [address] documented as of this encounter Visit Diagnoses Not on filedocumented in this encounter Care Teams Sdc Teacher Relationship Specialty Start Date End Date Amna Urrutia FNP [address] [place] [address] PCP - General Family Medicine 01/01/23 04/18/24 Everett Angulo MD [address] [place] [address] PCP - General Internal Medicine 04/19/24 10/08/24 Sahil Chen CNP [address] [place] [address] PCP - General Family Medicine 10/09/24 Chris Pack Jr Supervisor Blood Donor RecruitersSilo Filler 09/04/24 documented as of this encounter
--- OUTSIDE RECORDS SUMMARY | 2024-12-29 11:56 | XMS_ITS | Clinical Summary ---
Author Organization [employer] Address [address] [facility] [address] [place] [address] Care Team Providers Care Health Technician Hearing Name Role Phone Gustavo Sahil EMBRYOLOGY TEACHER Primary Care Provider [phone] Allergies Active Allergy Reactions Criticality Noted Date [...] record from that organization. Continuous Blood Gluc Caramel Candy Maker (FreeStyle Shiraz 2 Mulino) deviceIndications: Type 1 diabetes mellitus with hyperglycemia ([facility]) Use with sensor to monitor blood glucose levels 1 each 023 Active Acetaminophen Extra Strength 500 MG tablet 022 Active Blood Glucose Monitoring Suppl (FreeStyle Winona Lite) w/Device kit 022 Active FREESTYLE LITE [...] wheezing. 18 g 11 025 09/13 Active famotidine (Pepcid) 20 MG tabletIndications: Gastroesophageal reflux disease without esophagitis TAKE 1 TABLET BY MOUTH DAILY AT BEDTIME 90 tablet 1 Active esomeprazole (NexIUM) [address] capsuleIndications :Chronic gastroesophageal reflux disease Take 2 capsules (40 mg) by mouth before breakfast and before evening meal. Do not open capsule. 360 capsule 11/13 Active insulin lispro (HumaLOG) 100 UNIT/ML [...] in the morning. 3 mL 3 025 03/27 Active melatonin 10 MG tabletIndications: Insomnia, unspecified type Take 1 tablet (10 mg) by mouth at bedtime. 90 tablet Active promethazine (Phenergan) 25 MG tabletIndications: Type 1 diabetes mellitus with hyperglycemia (CMS/HCC) TAKE 1 TABLET BY MOUTH THREE TIMES DAILY NEEDED FOR NAUSEA AND VOMITING 15 tablet 1 Active doxycycline (Vibra-Tabs) 100 MG tabletIndications: Infection of skin of toes Take 1 tablet (100 mg) by mouth 2 times daily for 5 days. Take with a full glass of water and do not lie down for at least 30 minutes after. 10 tablet 025 01/01 Active bacitracin 500 UNIT/GM ointmentIndication s:Infection of skin of toes Apply topically 2 times daily. 14 g 025 Active promethazine (Phenergan) 25 MG tabletIndications: Type 1 diabetes mellitus with hyperglycemia (CMS/HCC) TAKE 1 TABLET BY MOUTH THREE TIMES DAILY NEEDED FOR NAUSEA AND VOMITING 15 tablet 1 025 12/11 Discontinued Active Problems Patient Care Coordination No te Formatting of this note migh t be different from the original. CHW called the patient back. Patient asked to be called at a later time as patient was at work. Problem Noted Date Diagnosed Date Closed nondisplaced fracture of right great toe with routine healing 12/27/2024 Type 1 diabetes mellitus with hyperglycemia 11/19 Overview (11/28/2024): Follows with [facility] Endo LITO 09/[address] Medication [...] care ?? PLAN: 1. Follow up with [facility]: Recommended for follow-up: TBD 2. Patient goal is stabilization of symptoms. 3. Behavioral Recommendations a. Patient was sectioned and taken to [facility] via ambulance History of concussion 05/31/2023 [...] depressive disorder, recurrent episode with anxious distress ([facility]/HCC) Patient ready to address current needs Yes Strengths include willing to engage in MH services. PLAN: 1. Follow up with [facility]: Not recommended for follow-up 2. Patient goal is to improve mental health and functioning. 3. Behavioral Recommendations a. Ind. Therapy, referral will be submitted. b. Use of coping skills as recommended. c. [facility] contact number for extra support as needed. [...] to schedule apt ---I discussed today w strategic sourcing specialist and request to try to schedule [...] f up until can start care w meat stock clerk Type 1 diabetes mellitus without complication Assessment & Plan (03/21/2024 3:41 PM EDT): Has apt w Photonics Engineer next week to start care Assessment [...] for PRN use. Thoracic back pain 04/14/2023 4 Assessment & [...] Encounters Date Type Department Care Team Description 12/29/2024 Orders Only GENERIC EXTERNAL DATA DEPARTMENT Provider, Generic External Data 12/27/2024 11:15 AM EDT Office Visit [address] [address] Sahil Chen CNP Infection of skin of toes (Primary Dx); Type 1 diabetes mellitus with hyperglycemia (CMS/HCC); Type 1 diabetes mellitus without complication (CMS/HCC); Closed nondisplaced fracture of phalanx of left great toe with routine healing, unspecified phalanx, subsequent encounter 12/27/2024 Travel 12/13/2024 Telephone [facility] [address] [place] [address] Sahil Chen CNP no show 12/12/2024 Telephone [facility] [address] [place] [address] Regina Mathis MA chartprep 12/12/2024 Telephone [facility] [address] [place] [address] Sahil Chen CNP Medication Question 12/11/2024 Telephone [facility] [address] [place] [address] Sahil Chen CNP Nurse Triage 12/10/2024 Refill [facility] [address] [place] [phone] Name, MD Everett Type 1 diabetes mellitus with hyperglycemia (CMS/HCC) 12/05/2024 Telephone [facility] [address] [place] [address] Sahil Chen CNP Chart Prep 12/04/2024 Orders Only GENERIC EXTERNAL DATA DEPARTMENT Provider, Generic External Data 11/27/2024 2:45 PM EDT Office Visit [facility] [address] [place] [address] Sahil Chen CNP Type 1 diabetes mellitus with hyperglycemia (CMS/HCC) (Primary Dx); Insomnia, unspecified type; Major depressive disorder, recurrent episode with anxious distress (CMS/HCC); Tobacco dependence 11/27/2024 Travel 11/19/2024 Patient Outreach [facility] [address] [place], [place] [phone] Sahil Chen CNP Pre-visit Planning ([facility] unable to reach [facility]) 11/13/2024 10:00 AM EDT Office Visit [facility] [address] [place] [phone] Alejandra Saucedo DO Type 1 diabetes mellitus with hyperglycemia (CMS/HCC) (Primary Dx); Chronic gastroesophageal reflux disease; Hyperglycemia 11/13/2024 Travel 11/12/2024 Telephone [facility] [address] [place] [address] Sahil Chen CNP Chart Prep 11/08/2024 Patient Outreach [facility] [address] [place] [address] Sahil Chen CNP Transition Of Care (Tcm) 11/06/2024 Orders Only [facility] [address] [place] [address] Sahil Chen CNP Gastroesophageal reflux disease without esophagitis 11/06/2024 Refill [facility] WALK-IN CENTER [address] [place] [address] Sahil Chen CNP Gastroesophageal reflux disease without esophagitis 11/06/2024 Telephone [facility] [address] [place] [address] Sahil Chen CNP Novolog 11/05/2024 Refill [facility] [address] [place] [address] Lindsey Cuellar NP Gastroesophageal reflux disease without esophagitis 11/01/2024 Population Health Risk Score [facility] () Department [address] [place] [phone] Provider, Population Health Generic 10/18/2024 Orders Only GENERIC EXTERNAL DATA DEPARTMENT Provider, Generic External Data 10/14/2024 Patient Outreach [facility] [address] [place] [address] Sahil Chen CNP Transition Of Care (Tcm) 10/09/2024 Telephone [facility] [address] [place] [address] Shivani Lopez RN 10/09/2024 Orders Only [facility] [address] [place] [address] Sahil Chen CNP Type 1 diabetes mellitus with hyperglycemia (CMS/HCC) (Primary Dx) 10/08/2024 Refill [facility] MED & PEDS [address] [place] [address] NameEverett MD Gastroesophageal reflux disease without esophagitis 10/08/2024 Refill [facility] [address] [place] [address] NameEverett MD Type 1 diabetes mellitus with hyperglycemia [...] Types Packs/Day Years Used Date Smoking Tobacco: Former Cigarettes 0.5 10 Passive Smoke Exposure: Current Smokeless Tobacco: Former Tobacco Cessation:Counseling Given: Not Answered Alcohol Use Standard Drinks/Week [...] Sign Reading Time Taken Comments Blood Pressure 90/72 12/27/2024 11:27 AM EDT Pulse 68 12/27/2024 11:27 AM EDT Temperature 36.5 ??C (97.7 ??F) 12/27/2024 11:27 AM E DT Respiratory Rate 20 12/27/2024 11:27 AM EDT Oxygen Saturation 99% 11/27/2024 2:57 PM EDT Inhaled Oxygen Concentration - - Weight 62.1 kg (137 lb) 12/27/2024 11:27 AM EDT Height 182.9 cm (6') 12/27/2024 11:27 AM EDT Body Mass Index 18.58 12/27/2024 11:27 AM EDT Plan of Treatment Upcoming Encounters Date Type Department Care Team (Late st Contact Info) Description 01/31/2025 1:00 PM EDT Office Visit [facility] [address] [place] [address] Sahil Chen, EMBRYOLOGY TEACHER [address] [place], [place] [phone] Health Maintenance Due Date Last Done Comments Dental Oral Exam 1996 Dental Prophylaxis 1996 Dental X-Ray: Full Mouth 1996 Alcohol/Substance Use Screening 2008 Family Planning (PISQ) 02/07/2011 Diabetes: Urine Protein Screening 02/07/2015 Hepatitis B Vaccines (1 of 3 - 19+ 3-dose series) 02/07/2015 Pneumococcal Vaccine: Pediatrics (0 to 5 Years) and At-Risk Patients (6 to 49) Years) (1 of 2 - PCV) 02/07/2015 Dental X-Ray: Bitewings 10/19/2023 10/18/2022 COVID-19 Vaccine ( season) 2024 Influenza Vaccine (#1) 2024 06/08/2016 Lipid Panel 11/14/2024 11/15/2023 Diabetes: Hemoglobin A1C 02/26/2025 025, 11/13/2024, 02/26/2024, Additional history exists Eye Exam 05/21/2025 05/21/2024, 100 08/2023, 05/21/2024, Additional history exists Depression Screening 11/27/2025 11/27/2024, 11/28/19 SDOH Screening 11/27/2025 11/27/2024 Diabetes: Foot Exam 12/27/2025 12/27/2024, 12/27/2024, 12/27/2024, Additional history exists Tobacco Screening 12/27/2025 12/27/2024 DTaP/Tdap/Td Vaccines (2 - Td or Tdap) [...] Associated Diagnosis Comments GLUCOSE, WHOLE BLOOD Routine 12/29/2024 11:29 AM EDT POCT GLUCOSE Routine 12/27/2024 11:34 AM EDT Type 1 diabetes mellitus with hyperglycemia (CMS/HCC) HIGH SENSITIVITY TROPONIN I Routine 12/04/2024 2:40 PM EDT BETA-HYDROXYBUTYRATE Routine 12/04/2024 2:40 PM EDT MAGNESIUM Routine 12/04/2024 2:40 PM EDT COMPREHENSIVE METABOLIC PANEL Routine 12/04/2024 2:40 PM EDT SARS COV2/INFLUENZA A/B AND RSV [...] WO CONTRAST Routine 10/11/2024 11:08 PM EST HEPATITIS C AB W/REFL TO [...] Maintenance Results * (ABNORMAL) Glucose, Whole Blood (12/29/2024 11:29 AM EDT) Glucose, Whole Blood 127(H) 60 - 115 mg/dL [facility] Comment:METER #: [id number] 12/29/2024 11:2 9 AM EDT 12/29/2024 11:33 AM EDT us Generic External Data Provider LAB BLOOD ORDERAB LES Final Result [facility] [address] [place] [phone] * POCT Glucose (12/27/2024 11:34 AM EDT) Only the most recent of3 resultswithin the time period is included. Pathologist [facility] Glucose Blood, POC 158 60 - 200 mg/dL Comment:Random QC Media Lot # [id number] Lot# Expiration Date Blood Capillary blood specimen / Unknown 12/27/2024 11:34 AM EDT [facility] POINT OF CARE TEST ENTER/ EDIT ORDERABLES Edited Result - Final * High Sensitivity Troponin I (12/04/2024 2:40 PM EDT) [facility] TROPONIN I HIGH SENSITIVITY <2.7 <3.5 - 35.0 ng/L [facility] Comment:The Griffin high sens itivity Troponin-I results should beused in conjunction with other diagnostic information suchas ECG, clinical observations and information, and patientsymptoms to aid in the diagnosis of MD. 12/04/2024 2:40 PM EDT 12/04/2024 2:42 PM EDT Generic External Data Provider LAB BLOOD ORDERAB LES Final Result Performing Organization Address [facility]/ZIP Co de Phone Number [facility] [address] [place] [phone] * (ABNORMAL) Beta-Hydroxybutyrate (12/04/2024 2:40 PM EDT) [facility] Beta-Hydroxybu tyrate 1.12(H) 0.02 - 0.27 mmol/L [facility] 12/04/2024 2:40 PM EDT 12/04/2024 2:42 PM EDT Generic External Data Provider LAB BLOOD ORDERAB LES Final Result Performing Organization Address City/[facility]/ZIP Co de Phone Number [facility] [address] [place] [address] [phone] * Magnesium (12/04/2024 2:40 PM EDT) Magnesium 1.9 1.6 - 2.6 mg/dL [facility] 12/04/2024 2:40 PM EDT 12/04/2024 2:42 PM EDT us Generic External Data Provider LAB BLOOD ORDERAB LES Final Result Performing Organization Address City/[facility] Co de Phone Number [facility] [address] [place] [address] [phone] * (ABNORMAL) Comprehensive Metabolic Panel (12/04/2024 2:40 PM EDT) Pathologist [facility] Sodium 138 135 - 145 mmol/L [facility] Potassium 4.5 3.3 - 5.1 mmol/L [facility] Chloride 105 96 - 108 mmol/L [facility] Carbon Dioxide 25 22 - 29 mmol/L [facility] Anion Gap 13 12 - 20 [facility] Urea Nitrogen (BUN) 22(H) 9 - 16 mg/dL [facility] Creatinine, Serum 0.69 0.5 - 1.4 mg/dL [facility] Creatinine Clr Calc Pharmacy 137.5 [facility] Comment:eGFR (calculated fro m the MDRD study equation) and eCrCl(calculated from the Cockcroft-Gault equation) are based ondifferent parameters and may not yield comparable results.If eCrCl result is absurd, please check patient'sheight/weight. Estimated Glomerular Filt Rate >60 [facility] Comment:Chronic Kidney Disea se: Estimated GFR < 60 mL/min/1.84l8Bqrtlq Kidney Disease: Estimated GFR < 15 mL/min/1.73m2 Glucose 106 60 - 115 mg/dL [facility] Calcium 9.8 8.4 - 10.2 mg/dL [facility] Bilirubin, Total 0.7 0.0 - 1.0 mg/dL [facility] Aspartate Amino Transferase 18 5 - 37 U/L [facility] Alanine Aminotransferase 10 0 - 40 U/L [facility] Total Protein 7.0 6.5 - 8.0 g/dL [facility] Albumin Level 4.0 3.5 - 5.0 g/dL [facility] Alkaline Phosphatase 77 39 - 117 U/L [facility] 12/04/2024 2:40 PM EDT 12/04/2024 2:42 PM EDT Generic External Data Provider LAB BLOOD ORDERAB LES Final Result Performing Organization Address [facility] Co de Phone Number [facility] [address] [place] [phone] * Strep A Nucleic Acid (12/04/2024 12:33 PM EDT) IDNOW SERIAL# [id number] [facility] Strep A Nucleic Acid Negative Negative [facility] Comment:All test results mus t [...] GENERAL ORDERABLES Final Result Performing Organization Address [facility]/ZIP Co de Phone Number [facility] [address] [place] [phone] * SARS-CoV-2 RNA, Influenza A/B, and RSV RNA, Ql NAAT (12/04/2024 12:33 PM EDT) Influenza A PCR NEGATIVE Negative [facility] Influenza B PCR NEGATIVE Negative [facility] Resp Syncy Virus RNA Qual PCR NEGATIVE Negative [facility] SARS COV2 PCR NEGATIVE Negative [facility] Comment:All test results mus t [...] use by authorized laboratories.Testing performed on the [employer] GeneXpert utilizingreal-time RT-PCR.All SARS CoV2 and positive influenza A/B results arereported to [facility]. 12/04/2024 12:3 3 PM EDT 12/04/2024 12:54 PM EDT Generic External Data Provider LAB MICROBIOLOGY - GENERAL ORDERABLES Final Result [facility] [address] [place] [phone] * (ABNORMAL) POCT Urinalysis (11/27/2024 4:39 [...] Media Lot # [id number] Lot# Expiration Date [id number] Urine 11/27/2024 4:39 PM EDT [facility] POINT OF CARE TEST ENTER/ EDIT ORDERABLES Final Result * (ABNORMAL) POCT HGB A1C (11/27/2024 3:07 PM EDT) Only the most recent of2 resultswithin the time period is included. Pathologist [facility] Hemoglobin A1C 8.7(A) 4.0 - 6.0 % QC Media Lot # [id number] Lot# Expiration Date Blood 11/27/2024 3:07 PM EDT [facility] POINT OF CARE TEST ENTER/ EDIT ORDERABLES Final Result * (ABNORMAL) Glucose, Whole Blood (10/18/2024 3:01 PM EST) Pathologist [facility] Glucose, Whole Blood 333(H) 60 - 115 mg/dL [facility] Comment:METER #: [id number] 5Testing performed in the Endocrinology Department [address] , [address], [place]. 10/18/2024 3:01 PM EST 10/18/2024 3:05 PM EST Generic External Data Provider LAB BLOOD ORDERAB LES Final Result [facility] [address] [place] [address] [phone] * CT Abdomen Pelvis w/o Contrast (10/11/2024 11:08 PM EST) Anatomical Region Laterality Modality Body, Pelvis, Abdomen Computed T omography 10/11/2024 11:0 8 PM EST Narrative 10/11/2024 11:09 PM EST ? [facility] ?[address] [facility]. ?[place] [address] ? CT Scan Report ? Signed ? Patient: Bradford Torres ?MR#: [id number] ?? [id number] ? : 1995 ?Acct:[id number] ? Age/Sex: 29 / M ?ADM Date: 02/21/25 ? Loc: HO.ED ? Attending Dr: ? Ordering Physician: Jorge Augustin ?? Date of Service: 10/11/24 ?? Procedure(s): CT abdomen pelvis wo IV con ?? Accession Number(s): [id number] ? cc: Name,Everett ROSE; Jorge Augustin ? Report Number: ?? [id number]: Total DLP = ??378.00 mGy-cm ? CLINICAL [...] 10/11/24 2309 ? DD/ 2308 ? TD/TT: 10/11/242307 ? Bottle Label Inspector: ? Procedure Note Geovanna, Image - 10/11/[address] [place] [address] [address] Scan Report Signed Patient: Bradford Torres JMR#: [id number] : 1995Acct:[id number] Age/Sex: 29 / MADM Date: 10/11/24 Loc: HO.ED Attending Dr: Ordering Physician: Jorge Augustin Date of Service: 10/11/24 Procedure(s): CT abdomen pelvis wo IV con Accession Number(s): [id number] cc: Name,Everett ROSE; Jorge Augustin Report Number: [id number]: Total DLP = 378.00 mGy-cm CLINICAL HISTORY: [...] in OV> 10/11/242308 DD/ 07 TD/TT: 10/11/242307 Bottle Label Inspector: [facility] External Provider IMG CT PROCEDURES Edited Result - Final * Hepatitis C Antibody with Reflex to HCV, RNA, Quantitative, Real-Time PCR (11/15/2023 1:28 PM EDT) Hepatitis C Antibody Nonreactive Nonreactive [facility] Comment:Antibodies to HCV no t detected; does not exclude early acuteHCV infection. Blood Venous blood specimen / Unknown 11/15/2023 1:28 PM EDT 11/15/2023 4:04 PM EDT Amna Renan [facility] LAB BLOOD ORDERABLES Final Resu lt [facility] [address] [place], [place] [phone] * Lipid Panel, Standard (11/15/2023 1:28 PM EDT) Triglycerides 56 <150 mg/dL [facility] Comment:Desirable Triglyceri de: less than 150 mg/dLBorderline High Triglyceride 150-199 mg/dLHigh Triglyceride: 200-499 mg/dLVery High Triglyceride: greater than or equal to 5OO mg/dL Cholesterol 145 <200 mg/dL [facility] Comment:Desirable Cholestero l: less than 200 mg/dLBorderline High Cholesterol: 200-239 mg/dLHigh Cholesterol: greater than 239 mg/dL LDL Cholesterol Calculated 84 <100 mg/dL [facility] Comment:Desirable LDL: less than 100 mg/dLNear Optimal/Above Optimal LDL: 110- 129 mg/dLBorderline High LDL: 130-159 mg/dLHigh LDL: 160-189 mg/dLVery High LDL: greater than or equal to 190 mg/dL HDL Cholesterol 50 >40 mg/dL [facility] Comment:Desirable HDL: great er than 40 mg/dL Note: This HDL assay may give artificially low results in patients with liver disease. Blood Venous blood specimen / Unknown 11/15/2023 1:28 PM EDT 11/15/2023 4:04 PM EDT [employer] [facility] BLOOD ORDERABLES Final Resu lt Performing Organization Address City/[facility]/ZIP Co de Phone Number [facility] [address] [place] [phone] * HIV-1 RNA, Quantitative, Real-Time PCR with Reflex to Genotype (RTI, PI, Integrase) (01/06/2023 10:25 AM EDT) Pathologist [facility] HIV 1 RNA, QN PCR NOT DETECTED copies/mL [facility], HIV 1 RNA, QN PCR NOT DETECTED Log copies/mL [facility], Comment: REFERENCE RANGE: NOT DETECTED copies/mL ?NOT DETECTED ??Log copies/mL This test was performed using Real-Time Polymerase Chain Reaction. Reportable range is 20 to 10,000,000 copies/mL (1.30-7.00 Log copies/mL). 01/06/2023 10:2 5 AM EDT 01/06/2023 10:26 AM EDT Narrative [facility] - 01/11/2023 1:53 AM EDT FASTING:NO SPECIMEN COLLECTED AT PROVIDER OFFICE. FASTING: NO Sensorin [facility] BLOOD ORDERABLES Final Resu lt Performing Organization Address City/[facility]/ZIP Co de Phone Number [facility] [address] [place] [address], [place] [address] [facility], [address] [place] [address] from Last 3 Months or Most Recently Relevant to Health Maintenance Insurance HS FULL [facility] Care Teams Health Technician Hearing Relationship Specialty Start Date End Date Sahil Chen CNP [address] [place] [address] PCP - General Family Medicine 10/09/24 Chris Pack Jr Branch ChiefTicket Dispenser Changer 09/04/24
--- OUTSIDE RECORDS SUMMARY | 2024-12-29 11:56 | XMS_ITS | Encounter Summary ---
Author Organization [employer] Address [address] [place] [address] [address] [place] [address] Care Team Providers Care Daytime Babysitter Name Role Phone Amna Urrutia Primary Care Provider [phone] Name, Everett ROSE Primary Care Provider [phone] Sahil Chen CNP Primary Care Provider [phone] Reason for Visit * Reason Onset Date Comments Med Refill 04/29/2023 Encounter Details Date Type Department Care Team (Late st Contact Info) Description 04/29/2023 Refill [facility] [address] [place] [address] [phone] Sandra Leal MD [address] [place] [address] [phone] Social History Tobacco Use Types Packs/Day Years [...] Description 01/31/2025 1:00 PM EDT Office Visit [facility] [address] [place] [address] [phone] Sahil Chen CNP [address] [place] [address] documented as of this encounter Visit Diagnoses Not on filedocumented in this encounter Additional Health Concerns Assessment Noted Time PHQ-9 Depression Total Score: 16 023 8:52 AM EDT documented as of this encounter Care Teams Daytime Babysitter Relationship Specialty Start Date End Date Amna Urrutia FNP [address] [place], [place] [phone] PCP - General Family Medicine 01/01/23 04/18/24 Name, MD Everett [address] [place], [place] [phone] PCP - General Internal Medicine 04/19/24 10/08/24 Sahil Chen CNP [address] [place], [place] [phone] PCP - General Family Medicine 10/09/24 Chris Pack Jr Hydraulic Press TenderSprayer Hand 09/04/24 documented as of this encounter
--- OUTSIDE RECORDS SUMMARY | 2024-12-29 11:56 | XMS_ITS | Encounter Summary ---
Author Organization [employer] Address [address] [facility] 7t [place] [address] Care Team Providers Care Resident Assistant Cna Name Role Phone Amna Urrutia Primary Care Provider [phone] Name, Everett ROSE Primary Care Provider [phone] Sahil Chen CNP Primary Care Provider [phone] Encounter Details Date Type Department Care Team ([facility] Contact Info) Description 01/17/2023 Orders Only [facility] MED[facility] [address] [place] [address] Amna Urrutia FNP [address] [place] [address] Social History Tobacco Use Types Packs/Day Years [...] Department Care Team (Late Contact Info) Description 01/31/2025 1:00 PM EDT Office Visit [facility] [address] [place] [address] Sahil Chen CNP [address] [place] [address] documented as of this encounter Visit Diagnoses Not on filedocumented in this encounter Additional Health Concerns Assessment Noted Time PHQ-9 Depression Total Score: 7 01/07/20 23 9:10 AM EDT documented as of this encounter Care Teams Resident Assistant Cna Relationship Specialty Start Date End Date Amna Urrutia FNP [address] [place] [address] PCP - General Family Medicine 01/01/23 04/18/24 Name, MD Everett [address] [place] [address] PCP - General Internal Medicine 04/19/24 10/08/24 Sahil Chen CNP [address] [place] [address] PCP - General Family Medicine 10/09/24 Chris Pack Jr Occupational Health And Safety AdviserAlpaca Farmer 09/04/24 documented as of this encounter
--- OUTSIDE RECORDS SUMMARY | 2024-12-29 11:56 | XMS_ITS | Encounter Summary ---
Author Organization [employer] Address [address] [place] [address] 7 [place] [address] Care Team Providers Care Milling/Polishing Operator Name Role Phone Amna Urrutia Primary Care Provider [phone] Name, Everett ROSE Primary Care Provider [phone] Sahil Chen CNP Primary Care Provider [phone] Reason for Visit * Reason Onset Date Comments Med Refill 05/01/2023 Encounter Details Date Type Department Care Team (Late st Contact Info) Description 05/01/2023 Refill [facility] [address] [place] [address] [phone] Sandra Leal MD [address] [place] [address] [phone] Social History Tobacco Use Types Packs/Day Years [...] Description 01/31/2025 1:00 PM EDT Office Visit [facility] [address] [place] [address] [phone] Sahil Chen CNP [address] [place] [address] documented as of this encounter Visit Diagnoses Not on filedocumented in this encounter Additional Health Concerns Assessment Noted Time PHQ-9 Depression Total Score: 16 023 8:52 AM EDT documented as of this encounter Care Teams Milling/Polishing Operator Relationship Specialty Start Date End Date Amna Urrutia FNP [address] [place], [place] [phone] PCP - General Family Medicine 01/01/23 04/18/24 Name, MD Everett [address] [place], [place] [phone] PCP - General Internal Medicine 04/19/24 10/08/24 Sahil Chen CNP [address] [place], [place] [phone] PCP - General Family Medicine 10/09/24 Chris Pack Jr Blocker HandLoss Control Representative 09/04/24 documented as of this encounter
--- OUTSIDE RECORDS SUMMARY | 2024-12-29 11:56 | XMS_ITS | Clinical Summary ---
Author Organization [facility] it Address [address] [place] [address] Care Team Providers Care Trauma Registrar Name Role Phone Unavailable Primary Care Provider [...]
--- OUTSIDE RECORDS SUMMARY | 2024-12-29 11:56 | XMS_ITS | Encounter Summary ---
Author Organization [employer] Address [address] [facility] 7t [place] [address] Care Team Providers Care Death Claim Clerk Name Role Phone Amna Urrutia Primary Care Provider [phone] Name, Everett ROSE Primary Care Provider [phone] Sahil Chen CNP Primary Care Provider [phone] Encounter Details Date Type Department Care Team (Late Contact Info) Description 10/21/2022 Abstract [facility] [address] [place] [address] Marycruz Oseguera DDS [address] [place] [address] Social History Tobacco Use Types Packs/Day Years [...] 1:00 PM EDT Office Visit [facility] [address] [place] [address] Sahil Chen CNP [address] [place] [address] documented as of this encounter Visit Diagnoses Not on filedocumented in this encounter Care Teams Death Claim Clerk Relationship Specialty Start Date End Date Amna Urrutia FNP [address] [place], [place] [phone] PCP - General Family Medicine 01/01/23 04/18/24 Name, MD Everett [address] [place], [place] [phone] PCP - General Internal Medicine 04/19/24 10/08/24 Sahil Chen CNP [address] [place], [place] [phone] PCP - General Family Medicine 10/09/24 Chris Pack Jr Hotel Maintenance EngineerOrder Booker 09/04/24 documented as of this encounter
--- OUTSIDE RECORDS SUMMARY | 2024-12-29 11:56 | XMS_ITS | Encounter Summary ---
Author Organization [employer] Address [address] [facility] 7t [place] [address] Care Team Providers Care Knowledge Management Consultant Name Role Phone Amna Urrutia Primary Care Provider [phone] Name, Everett ROSE Primary Care Provider [phone] Sahil Chen CNP Primary Care Provider [phone] Reason for Visit * Reason Onset Date Comments Med Refill 05/01/2023 Encounter Details Date Type Department Care Team (Late st Contact Info) Description 05/01/2023 Refill [facility] [address] [place] [address] Lakshmi Womack FNP [address] [place] [address] Type 1 diabetes mellitus with hyperglycemia ([facility]) Social History Tobacco [...] Description 01/31/2025 1:00 PM EDT Office Visit [facility] [address] [place] [address] Sahil Chen CNP [address] [place] [address] documented as of this encounter Visit Diagnoses Diagnosis Type 1 diabetes mellitus with hyperglycemia (CMS/HCC) documented in this encounter Additional Health Concerns Assessment Noted Time PHQ-9 Depression Total Score: 16 023 8:52 AM EDT documented as of this encounter Care Teams Knowledge Management Consultant Relationship Specialty Start Date End Date Amna Urrutia FNP [address] [place] [address] PCP - General Family Medicine 01/01/23 04/18/24 Name, MD Everett [address] [place] [address] PCP - General Internal Medicine 04/19/24 10/08/24 Sahil Chen CNP [address] [place] [address] PCP - General Family Medicine 10/09/24 Chris Pack Jr Deposit Refund ClerkBuying Intern 09/04/24 documented as of this encounter
--- OUTSIDE RECORDS SUMMARY | 2024-12-29 11:56 | XMS_ITS | Encounter Summary ---
Author Organization [facility] Address [address] [place] [address] Phone Care Team Providers Care Top Cager Name Role Phone Santos Mueller MD Primary Care Provider [phone] Encounter Details Date Type Department Care Team (Late st Contact Info) Description 08/05/2024 Documentation Only [facility] [place], [address] [place] [address] Jessica Sprague [address] [place] [address] Social History Tobacco Use Types [...] on filedocumented in this encounter Care Teams Top Cager Relationship Specialty Start Date End Date Santos Mueller MD [address] [place] [address] PCP - General Emergency Medicine 07/28/23 documented as of this encounter
--- OUTSIDE RECORDS SUMMARY | 2024-12-29 11:56 | XMS_ITS | Encounter Summary ---
Author Organization [facility] Address [address] [place] [address] Phone Care Team Providers Care Travel Registered Nurse Nicu Name Role Phone Santos Mueller MD Primary Care Provider [phone] Encounter Details Date Type Department Care Team (Late st Contact Info) Description 08/05/2024 Documentation Only [facility] [place], [address] [place] [address] Jessica Sprague [address] [place] [address] Social History Tobacco Use Types [...] on filedocumented in this encounter Care Teams Travel Registered Nurse Nicu Relationship Specialty Start Date End Date Santos Mueller MD [address] [place] [address] PCP - General Emergency Medicine 07/28/23 documented as of this encounter
--- OUTSIDE RECORDS SUMMARY | 2024-12-29 11:56 | XMS_ITS | Encounter Summary ---
Author Organization [employer] Address [address] [facility] [address] 7t [place] [address] Care Team Providers Care Javascript Application Developer Name Role Phone Gustavo Sahil SERA Primary Care Provider [phone] Encounter Details Date Type Department Care Team (Latest Contact Info) Description 12/27/2024 Travel Social History Tobacco Use Types Packs/Day [...] Description 01/31/2025 1:00 PM EDT Office Visit [facility]INE [address] [place] [address] Sahil Chen CNP [address] [place] [address] documented as of this encounter Visit Diagnoses Not on filedocumented in this encounter Additional Health Concerns Assessment Noted Time PHQ-9 Depression Total Score: 19 025 3:09 PM EDT documented as of this encounter Care Teams Javascript Application Developer Relationship Specialty Start Date End Date Sahil Chen CNP [address] [place] [address] PCP - General Family Medicine 10/09/24 Chris Pack Jr LabourersCarbide Grinder 09/04/24 documented as of this encounter
--- OUTSIDE RECORDS SUMMARY | 2024-12-29 11:56 | XMS_ITS | Encounter Summary ---
Author Organization [employer] Address [address] [facility] 7t [place] [address] Care Team Providers Care Surveyor Hydrographic Name Role Phone Amna Urrutia Primary Care Provider [phone] Name, Everett ROSE Primary Care Provider [phone] Sahil Chen CNP Primary Care Provider [phone] Reason for Visit * Reason Onset Date Comments Med Refill 05/03/2023 Encounter Details Date Type Department Care Team (Late st Contact Info) Description 05/03/2023 Refill [facility] [address] [place] [address] Amna Urrutia FNP [address] [place] [address] Type 1 diabetes mellitus with hyperglycemia ([facility]/HCC) Social History Tobacco Use Types [...] Description 01/31/2025 1:00 PM EDT Office Visit [facility] [address] [place] [address] Sahil Chen CNP [address] [place] [address] documented as of this encounter Visit Diagnoses Diagnosis Type 1 diabetes mellitus with hyperglycemia (CMS/HCC) documented in this encounter Additional Health Concerns Assessment Noted Time PHQ-9 Depression Total Score: 16 023 8:52 AM EDT documented as of this encounter Care Teams Surveyor Hydrographic Relationship Specialty Start Date End Date Amna Urrutia FNP [address] [place] [address] PCP - General Family Medicine 01/01/23 04/18/24 Name, MD Everett [address] [place] [address] PCP - General Internal Medicine 04/19/24 10/08/24 Sahil Chen CNP [address] [place] [address] PCP - General Family Medicine 10/09/24 Chris Pack Jr Tunnel WorkerTouch Up Carver 09/04/24 documented as of this encounter
--- OUTSIDE RECORDS SUMMARY | 2024-12-29 11:56 | XMS_ITS | Encounter Summary ---
Author Organization [employer] Address [address] [place] [address] 7 [place] [address] Care Team Providers Care Cell Assembly Pinner Name Role Phone Amna Urrutia Primary Care Provider [phone] Name, Everett ROSE Primary Care Provider [phone] Sahil Chen CNP Primary Care Provider [phone] Reason for Visit * Reason Onset Date Comments Med Refill 03/21/2023 Encounter Details Date Type Department Care Team (Late st Contact Info) Description 03/21/2023 Refill [facility] [address] [place] [address] [phone] Amna Urrutia FNP [address] [place], [place] [phone] Social History Tobacco Use Types Packs/Day Years [...] 1:00 PM EDT Office Visit [facility] [address] [place] [address] [phone] Sahil Chen CNP [address] [place], [place] [phone] documented as of this encounter Visit Diagnoses Not on filedocumented in this encounter Additional Health Concerns Assessment Noted Time PHQ-9 Depression Total Score: 7 01/07/20 23 9:10 AM EDT documented as of this encounter Care Teams Cell Assembly Pinner Relationship Specialty Start Date End Date Amna Urrutia FNP [address] [place], [place] [phone] PCP - General Family Medicine 01/01/23 04/18/24 Everett Angulo MD [address] [place], [place] [phone] PCP - General Internal Medicine 04/19/24 10/08/24 Sahil Chen CNP [address] [place], [place] [phone] PCP - General Family Medicine 10/09/24 Chris Pack Jr Hospice NurseJournalism Teacher 09/04/24 documented as of this encounter
--- OUTSIDE RECORDS SUMMARY | 2024-12-29 11:56 | XMS_ITS | Encounter Summary ---
Author Organization [employer] Address [address] [place] [address] 7 [place] [address] Care Team Providers Care Ground Support Equipment Fitter Name Role Phone Amna Urrutia Primary Care Provider [phone] Name, Everett ROSE Primary Care Provider [phone] Sahil Chen CNP Primary Care Provider [phone] Reason for Visit * Reason Onset Date Comments Med Refill 04/28/2023 Encounter Details Date Type Department Care Team (Late st Contact Info) Description 04/28/2023 Refill [facility] [address] [place] [address] [phone] Sandra Leal MD [address] [place] [address] [phone] Social History Tobacco Use Types Packs/Day Years [...] Description 01/31/2025 1:00 PM EDT Office Visit [facility] [address] [place] [address] [phone] Sahil Chen CNP [address] [place] [address] documented as of this encounter Visit Diagnoses Not on filedocumented in this encounter Additional Health Concerns Assessment Noted Time PHQ-9 Depression Total Score: 16 023 8:52 AM EDT documented as of this encounter Care Teams Ground Support Equipment Fitter Relationship Specialty Start Date End Date Amna Urrutia FNP [address] [place], [place] [phone] PCP - General Family Medicine 01/01/23 04/18/24 Name, MD Everett 230 [place], [place] [phone] PCP - General Internal Medicine 04/19/24 10/08/24 Sahil Chen CNP [address] [place], [place] [phone] PCP - General Family Medicine 10/09/24 Chris Pack Jr Sewer Separation DesignerSoundscriber Mechanic 09/04/24 documented as of this encounter
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
--- OUTSIDE RECORDS SUMMARY | 2024-12-29 11:56 | XMS_ITS | Encounter Summary ---
Author Organization [employer] Address [address] [facility] [address] [place] [address] Care Team Providers Care Truss Builder Name Role Phone Gustavo Delkalyan ZAMORA Primary Care Provider [phone] Encounter Details Date Type Department Care Team (Late st Contact Info) Description 12/29/2024 Orders Only GENERIC EXTERNAL DATA [...] EDT Office Visit [facility] [address] [place], [place] [phone] Sahil Chen CNP [address] [place], [place] [phone] documented as of this encounter Procedures Procedure Name Priority Date/Time Associated Diagnosis Comments GLUCOSE, WHOLE BLOOD Routine 12/29/2024 11:29 AM EDT documented in this encounter Results * (ABNORMAL) Glucose, Whole Blood (12/29/2024 11:29 AM EDT) Glucose, Whole Blood 127(H) 60 - 115 mg/dL [facility] Comment:METER #: [id number] 12/29/2024 11:2 9 AM EDT 12/29/2024 11:33 AM EDT us Generic External Data Provider LAB BLOOD ORDERAB LES Final Result [facility] [address] [place] [address] [phone] documented in this encounter Visit Diagnoses Not on filedocumented in this encounter Additional Health Concerns Assessment Noted Time PHQ-9 Depression Total Score: 19 2 025 3:09 PM EDT documented as of this encounter Care Teams Truss Builder Relationship Specialty Start Date End Date Sahil Chen CNP [address] [place] [address] PCP - General Family Medicine 10/09/24 Chris Pack Jr Mill SupervisorTank Filler 09/04/24 documented as of this encounter
[2024-12-29 12:12] LABS: Anion Gap 17 (12-20); Blood Urea Nitrogen 23 mg/dL (9-16); Calcium 9.7 mg/dL (8.4-10.2); Carbon Dioxide 22 mmol/L (22-29); Chloride 106 mmol/L (96-108); Creatinine Clr Calc Pharmacy 106.7; Estimated Glomerular Filt Rate > 60; Glucose Random 106 mg/dL (60-115); Potassium 4.4 mmol/L (3.3-5.1); Sodium 141 mmol/L (135-145)
[2024-12-29 12:44] LABS: Appearance Urine Clear; Color Urine Yellow; Glucose Urine UA 100 mg/dL (Negative); Leukocyte Esterase Urine Negative (Negative); Nitrite Urine Negative (Negative); PH 6.5 (5.0-9.0); Specific Gravity - Urine >= 1.030 (1.005-1.025); Urine Blood Negative (Negative); Urine Ketones Negative (Negative); Urine Protein Trace mg/dL (Neg-Trace)
[2024-12-29 12:49] LABS: Bacteria Urine None Seen (None Seen); Hyaline Casts Urine 0-2 /LPF (0-2); RBC Urine 0-2 /HPF (0-2); Squamous Epithelial Cell Urine 0-2 /HPF (0-2); WBC Urine 0-5 /HPF (0-5)
[2024-12-29 13:14] LABS: Glucose, Whole Blood 266 mg/dL (60-115)
[2024-12-29 13:34] VITALS: BP 127/87; PULSE 76; RESP 16; TEMP 36.3; O2SAT 100
== END 2024-12-29 13:35 | disposition home or self-care (01) ==
PROVIDERS: Emergency Provider Emergency Medicine Emergency Medical Services
DX: E10.649 Type 1 diabetes mellitus with hypoglycemia without coma (principal); Z79.899 Other long term (current) drug therapy; Z79.4 Long term (current) use of insulin
CPT/HCPCS: 36415; 80048; 81001; 82947; 85025; 99283; 99284

== ENCOUNTER 2025-01-03 22:15 | Emergency (ER) | payer MEDICAID, SELFPAY ==
[2025-01-03 22:27] VITALS: BP 120/90; PULSE 88; O2SAT 99
[2025-01-03 22:38] VITALS: BP 119/79; PULSE 89; RESP 14; TEMP 36.7; O2SAT 100; BMI 18.3
--- OUTSIDE RECORDS SUMMARY | 2025-01-03 22:51 | XMS_ITS | Encounter Summary ---
Author Organization [employer] Address [address] [facility] [address] [place] [address] Care Team Providers Care Head Stock Operator Name Role Phone Amna Urrutia Primary Care Provider [phone] Name, Everett ROSE Primary Care Provider [phone] Sahil Chen CNP Primary Care Provider [phone] Reason for Visit * Reason Onset Date Comments Reschedule 02/14/2024 Encounter Details Date Type Department Care Team ([facility] st Contact Info) Description 02/14/2024 Telephone [facility] [address] [place] [address] Amna Urrutia FNP [address] [place] [address] Reschedule Social History Tobacco Use Types Packs/Day [...] to reschedule 02/13 follow up extended appointment. Sticker Operator attempted to reschedule but no availability. Please contact pt at [phone] documented in this encounter Plan of Treatment Upcoming Encounters Date Type Department Care Team (Late st Contact Info) Description 01/31/2025 1:00 PM EDT Office Visit [facility] [address] [place] [address] Sahil Chen CNP [address] [place] [address] documented as of this encounter Visit Diagnoses Not on filedocumented in this encounter Additional Health Concerns Assessment Noted Time PHQ-9 Depression Total Score: 10 024 1:01 PM EDT documented as of this encounter Care Teams Head Stock Operator Relationship Specialty Start Date End Date Amna Urrutia FNP [address] [place], [place] [phone] PCP - General Family Medicine 01/01/23 04/18/24 Name, MD Everett [address] [place], [place] [phone] PCP - General Internal Medicine 04/19/24 10/08/24 Sahil Chen CNP [address] [place], [place] [phone] PCP - General Family Medicine 10/09/24 Chris Pack Jr Fraud AnalystBoat Loader 09/04/24 documented as of this encounter
--- OUTSIDE RECORDS SUMMARY | 2025-01-03 22:51 | XMS_ITS | Encounter Summary ---
Author Organization [employer] Address [address] [place] [address] Care Team Providers Care Creative Writing Teacher Name Role Phone Amna Urrutia Primary Care Provider [phone] Name, Everett ROSE Primary Care Provider [phone] Sahil Chen CNP Primary Care Provider [phone] Reason for Visit * Reason Comments Med Refill Encounter Details Date Type Department Care Team ([facility] st Contact Info) Description 10/04/2023 Refill [facility] MED[facility]INE [address] [place], [place] [phone] Amna Urrutia FNP [address] [place] [address] Type 1 diabetes mellitus with hyperglycemia ([facility]) Social History Tobacco Use Types Packs/Day [...] PM EDT Office Visit [facility] MEDICINE [address] [place] [address] Sahil Chen CNP [address] [place] [address] documented as of this encounter Visit Diagnoses Diagnosis Type 1 diabetes mellitus with hyperglycemia (CMS/HCC) documented in this encounter Additional Health Concerns Assessment Noted Time PHQ-9 Depression Total Score: 16 023 8:52 AM EDT documented as of this encounter Care Teams Creative Writing Teacher Relationship Specialty Start Date End Date Amna Urrutia FNP [address] [place] [address] PCP - General Family Medicine 01/01/23 04/18/24 Everett Angulo MD [address] [place] [id number] PCP - General Internal Medicine 04/19/24 10/08/24 Sahil Chen CNP [address] [place] [id number] PCP - General Family Medicine 10/09/24 Chris Pack Jr Glove WrapperWeaver Wire Loom 09/04/24 documented as of this encounter
--- OUTSIDE RECORDS SUMMARY | 2025-01-03 22:51 | XMS_ITS | Encounter Summary ---
Author Organization [employer] Address [address] [place] [address] Care Team Providers Care Product Support Rep Name Role Phone Amna Urrutia Primary Care Provider [phone] Name, Everett ROSE Primary Care Provider [phone] Sahil Chen CNP Primary Care Provider [phone] Reason for Visit * Reason Onset Date Comments Med Refill 07/15/2023 Encounter Details Date Type Department Care Team (Late st Contact Info) Description 07/15/2023 Refill [facility] [address] [place], [place] [phone] Amna Urrutia FNP [address] [place] [address] Social History Tobacco Use Types Packs/Day Years [...] 1:00 PM EDT Office Visit [facility] MED[facility] [address] [place] [phone] Sahil Chen CNP [address] [place] [address] documented as of this encounter Visit Diagnoses Not on filedocumented in this encounter Additional Health Concerns Assessment Noted Time PHQ-9 Depression Total Score: 16 023 8:52 AM EDT documented as of this encounter Care Teams Product Support Rep Relationship Specialty Start Date End Date Amna Urrutia FNP [address] [place] [id number] PCP - General Family Medicine 01/01/23 04/18/24 Everett Angulo MD [address] [place] [id number] PCP - General Internal Medicine 04/19/24 10/08/24 Sahil Chen CNP [address] [place] [id number] PCP - General Family Medicine 10/09/24 Chris Pack Jr Sewing Machine AdjusterRegulator Pin Inserter 09/04/24 documented as of this encounter
--- OUTSIDE RECORDS SUMMARY | 2025-01-03 22:51 | XMS_ITS | Clinical Summary ---
Author Organization [employer] Address [address] [facility] [address] [place] [address] Care Team Providers Care Stock Replenisher Name Role Phone Gustavo Sahil EXPANDED DUTY DENTAL ASSISTANT Primary Care Provider [phone] Allergies Active Allergy Reactions Criticality Noted Date [...] record from that organization. Continuous Blood Gluc [employer]otype [employer] (FreeStyle Shiraz 2 [place]) deviceIndications: Type 1 diabetes mellitus with hyperglycemia ([facility]) Use with sensor to monitor blood glucose levels 1 each 023 Active Acetaminophen Extra Strength 500 MG tablet 022 Active Blood Glucose Monitoring Suppl (FreeStyle [place] Lite) w/Device kit 022 Active FREESTYLE LITE [...] WITH INSULIN as INSTRUCTED 100 each 3 Active Tresiba FlexTouch 200 UNIT/ML injectionIndicatio ns:Type 1 diabetes mellitus with hyperglycemia (CMS/HCC) Inject 20 Units under the skin in the morning. 3 mL 3 025 03/27 Active melatonin 10 MG tabletIndications: Insomnia, unspecified type Take 1 tablet (10 mg) by mouth at bedtime. 90 tablet 025 Active promethazine (Phenergan) 25 MG tabletIndications: Type 1 diabetes mellitus with hyperglycemia (CMS/HCC) TAKE 1 TABLET BY MOUTH THREE TIMES DAILY NEEDED FOR NAUSEA AND VOMITING 15 tablet 1 025 Active bacitracin 500 UNIT/GM ointmentIndication s:Infection of skin of toes Apply topically 2 times daily. 14 g 025 Active promethazine (Phenergan) 25 MG tabletIndications: Type 1 diabetes mellitus with hyperglycemia (CMS/HCC) TAKE 1 TABLET BY MOUTH THREE TIMES DAILY NEEDED FOR NAUSEA AND VOMITING 15 tablet 1 025 12/11 Discontinued doxycycline (Vibra-Tabs) 100 MG tabletIndications: Infection of skin of toes Take 1 tablet (100 mg) by mouth 2 times daily for 5 days. Take with a full glass of water and do not lie down for at least 30 minutes after. 10 tablet 025 01/01 Active Problems Patient Care Coordination No te [...] Overview (11/28/2024): Follows with [facility] Endo LITO 09/2024 Has CGM in [...] care ?? PLAN: 1. Follow up with [facility]: Recommended for follow-up: TBD 2. Patient goal is stabilization of symptoms. 3. Behavioral Recommendations a. Patient was sectioned and taken to [facility] via ambulance History of concussion 05/31/2023 [...] MH services. PLAN: 1. Follow up with [facility]: Not recommended for follow-up 2. Patient goal is to improve mental health and functioning. 3. Behavioral Recommendations a. Ind. Therapy, referral will be submitted. b. Use of coping skills as recommended. c. [facility] contact number for extra support as needed. Assessment & Plan (04/14/2023 6:30 PM EDT): Reports chronic depression ,denies SI -I request today to call pt to start care given pt did not wanted to have apt in office today - called in afternoon and referred for outpt tx -pt to f kash PCP History of diabetic ketoacidosis 04/14/2023 Assessment [...] to schedule apt ---I discussed today w information assurance specialist and request to try to schedule [...] f up until can start care w security installer Type 1 diabetes mellitus without complication Assessment & Plan (03/21/2024 3:41 PM EDT): Has apt w Policy Advisor next week to start care Assessment [...] EDT): ?? Reports diagnosed approx 2018 in [place] ?? Referral to establish with GI provider [...] Encounters Date Type Department Care Team Description 01/02/[address] [address] Sahil Chen CNP 12/29/2024 Orders Only GENERIC EXTERNAL DATA DEPARTMENT Provider, Generic External Data 12/27/2024 11:15 AM EDT Office Visit [address] [address] Sahil Chen CNP Infection of skin of toes (Primary Dx); Type 1 diabetes mellitus with hyperglycemia ([facility]); Type 1 diabetes mellitus without complication ([facility]); Closed nondisplaced fracture of phalanx of left great toe with routine healing, unspecified phalanx, subsequent encounter 12/27/2024 Travel 12/13/2024 Telephone [facility] [address] [place] [address] Sahil Chen CNP no show 12/12/[address] [address] Regina Mathis MA chartprep 12/12/2024 Telephone [facility] [address] [place] [address] Sahil Chen CNP Medication Question 12/11/[address] [address] Sahil Chen CNP Nurse Triage 12/10/[address] [address] Name, MD Everett Type 1 diabetes mellitus with hyperglycemia (CMS/HCC) 12/05/[address] [address] Sahil Chen CNP Chart Prep 12/04/2024 Orders Only GENERIC EXTERNAL DATA DEPARTMENT Provider, Generic External Data 11/27/2024 2:45 PM EDT Office Visit [address] [address] Sahil Chen CNP Type 1 diabetes mellitus with hyperglycemia (CMS/HCC) (Primary Dx); Insomnia, unspecified type; Major depressive disorder, recurrent episode with anxious distress (CMS/HCC); Tobacco dependence 11/27/2024 Travel 11/19/2024 Patient Outreach [facility] [address] [place], [place] [phone] Sahil Chen CNP Pre-visit Planning ([facility] unable to reach [facility]) 11/13/2024 10:00 AM EDT Office Visit [address] [address] Alejandra Saucedo DO Type 1 diabetes mellitus with hyperglycemia (CMS/HCC) (Primary Dx); Chronic gastroesophageal reflux disease; Hyperglycemia 11/13/2024 Travel 11/12/[address] [address] Sahil Chen CNP Chart Prep 11/08/2024 Patient Outreach [address] [address] Sahil Chen CNP Transition Of Care (Tcm) 11/06/2024 Orders Only [facility] MEDICINE [address] [place] [address] Sahil Chen CNP Gastroesophageal reflux disease without esophagitis 11/06/2024 Refill [facility] [address] [place] [address] [phone] Sahil Chen CNP Gastroesophageal reflux disease without esophagitis 11/06/2024 Telephone [facility] [address] [place] [address] Sahil Chen CNP Novolog 11/05/2024 Refill [facility] [address] [place] [address] Lindsey Cuellar NP Gastroesophageal reflux disease without esophagitis 11/01/2024 Population Health Risk Score [facility] (C3) Department [address] [place] [phone] Provider, Population Health Generic 10/18/2024 Orders Only GENERIC EXTERNAL DATA DEPARTMENT Provider, Generic External Data 10/14/2024 Patient Outreach [facility] [address] [place] [address] Sahil Chen CNP Transition Of Care (Tcm) 10/09/2024 Telephone [facility] [address] [place] [address] Shivani Lopez, RUSTY 10/09/2024 Orders Only [facility] MED[facility] [address] [place] [address] Sahil Chen CNP Type 1 diabetes mellitus with hyperglycemia ([facility]/HCC) (Primary Dx) 10/08/2024 Refill [facility] [address] [place] [address] Everett Angulo MD Gastroesophageal reflux disease without esophagitis 10/08/2024 Refill [facility] [address] [place] [address] Everett Angulo MD Type 1 diabetes mellitus with hyperglycemia (CMS/HCC) from Last 3 Months Immunizations Immunization Administration Dates Next Due Influenza, seasonal, injectable, [...] Visit [facility] [address] [place], [place] [phone] Sahil Chen, EXPANDED DUTY DENTAL ASSISTANT [address] [place], [place] [phone] Health Maintenance Due Date Last Done Comments [...] Additional history exists Eye Exam 05/21/2025 05/21/2024, 1008/2023, 05/21/2024, Additional history exists Depression Screening 11/27/2025 [...] Diagnosis Comments GLUCOSE, WHOLE BLOOD Routine 12/29/2024 1:10 PM EDT URINALYSIS, COMPLETE, WITH REFLEX TO CULTURE Routine 12/29/2024 12:32 PM EDT GLUCOSE, WHOLE BLOOD Routine 12/29/2024 11:29 AM EDT POCT GLUCOSE Routine 12/27/2024 11:34 AM EDT Type 1 diabetes mellitus with hyperglycemia ([facility]) HIGH SENSITIVITY TROPONIN I Routine 12/04/2024 2:40 [...] Results * (ABNORMAL) Glucose, Whole Blood (12/29/2024 1:10 PM EDT) Only the most recent of2 resultswithin the time period is included. Glucose, Whole Blood 266(H) 60 - 115 mg/dL [facility] Comment:METER #: [id number] 12/29/2024 1:10 PM EDT 12/29/2024 1:14 PM EDT us Generic External Data Provider LAB BLOOD ORDERAB LES Final Result [facility] [address] [place] [phone] * (ABNORMAL) Urinalysis, Complete, with Reflex to Culture (12/29/2024 12:32 PM EDT) Color Urine Yellow [facility] Appearance Urine Clear [facility] PH 6.5 5.0 - 9.0 [facility] Glucose Urine UA 100(A) Negative mg/dL [facility] Urine Blood Negative Negative [facility] Specific [place] - Urine >=1.030(H) 1.005 - 1.025 [facility] Urine Protein Trace Neg-Trace mg/dL [facility] Urine Ketones Negative Negative mg/dL [facility] Nitrite Urine Negative Negative [facility] Leukocyte Esterase Urine Negative Negative [facility] RBC Urine 0-2 0 - 2 /HPF [facility] Urine WBC 0-5 0 - 5 /HPF [facility] Urine Squamous Epithelial Cell 0-2 0 - 2 /HPF [facility] Urine Bacteria None Seen None Seen [facility] Hyaline Casts, Urine 0-2 0 - 2 /LPF [facility] 12/29/2024 12:3 2 PM EDT 12/29/2024 12:40 PM EDT Narrative [facility] - 12/29/2024 12:49 PM EDT Urine, Clean Catch us Generic External Data Provider LAB URINE ORDERAB LES Final Result Performing Organization Address [facility] Co de Phone Number [facility] [address] [place] [phone] * POCT Glucose (12/27/2024 11:34 AM EDT) Only the most recent of3 resultswithin the time period is included. Pathologist [facility] Glucose Blood, POC 158 60 - 200 mg/dL Comment:Random QC Media Lot # [id number] Lot# Expiration Date Blood Capillary blood specimen / Unknown 12/27/2024 11:34 AM EDT [facility] POINT OF CARE TEST ENTER/ EDIT ORDERABLES Edited Result - Final * High Sensitivity Troponin I (12/04/2024 2:40 PM EDT) [facility] TROPONIN I HIGH SENSITIVITY <2.7 <3.5 - 35.0 ng/L [facility] Comment:The Griffin high sens itivity Troponin-I results should beused in conjunction with other diagnostic information suchas ECG, clinical observations and information, and patientsymptoms to aid in the diagnosis of ME. 12/04/2024 2:40 PM EDT 12/04/2024 2:42 PM EDT Generic External Data Provider LAB BLOOD ORDERAB LES Final Result Performing Organization Address [facility] Co de Phone Number [facility] [address] [place] [address] [phone] * (ABNORMAL) Beta-Hydroxybutyrate (12/04/2024 2:40 PM EDT) [facility] Beta-Hydroxybu tyrate 1.12(H) 0.02 - 0.27 mmol/L [facility] 12/04/2024 2:40 PM EDT 12/04/2024 2:42 PM EDT us Generic External Data Provider LAB BLOOD ORDERAB LES Final Result Performing Organization Address City/[facility]/ZIP Co de Phone Number [facility] [address] [place] [address] [phone] * Magnesium (12/04/2024 2:40 PM EDT) Pathologist [facility] Magnesium 1.9 1.6 - 2.6 mg/dL [facility] 12/04/2024 2:40 PM EDT 12/04/2024 2:42 PM EDT Generic External Data Provider LAB BLOOD ORDERAB LES Final Result Performing Organization Address [facility] Co de Phone Number [facility] [address] [place] [address] [phone] * (ABNORMAL) Comprehensive Metabolic Panel (12/04/2024 2:40 PM EDT) Pathologist [facility] Sodium 138 135 - 145 mmol/L [facility] Potassium 4.5 3.3 - 5.1 mmol/L [facility] Chloride 105 96 - 108 mmol/L [facility] Carbon Dioxide 25 22 - 29 mmol/L [facility] Anion Gap 13 12 - 20 [facility] Urea Nitrogen (BUN) 22(H) 9 - 16 mg/dL [facility] Creatinine, Serum 0.69 0.5 - 1.4 mg/dL [facility] Creatinine Clr Calc Pharmacy 137.5 [facility] Comment:eGFR (calculated fro m the MDRD study equation) and eCrCl(calculated from the Cockcroft-Gault equation) are based ondifferent parameters and may not yield comparable results.If eCrCl result is absurd, please check patient'sheight/weight. Estimated Glomerular Filt Rate >60 [facility] Comment:Chronic Kidney Disea se: Estimated GFR < 60 mL/min/1.86r5Zmlyie Kidney Disease: Estimated GFR < 15 mL/min/1.73m2 Glucose 106 60 - 115 mg/dL [facility] Calcium 9.8 8.4 - 10.2 mg/dL [facility] Bilirubin, Total 0.7 0.0 - 1.0 mg/dL [facility] Aspartate Amino Transferase 18 5 - 37 U/L [facility] Alanine Aminotransferase 10 0 - 40 U/L [facility] Total Protein 7.0 6.5 - 8.0 g/dL [facility] Albumin Level 4.0 3.5 - 5.0 g/dL [facility] Alkaline Phosphatase 77 39 - 117 U/L [facility] 12/04/2024 2:40 PM EDT 12/04/2024 2:42 PM EDT Generic External Data Provider LAB BLOOD ORDERAB LES Final Result Performing Organization Address [facility] Co de Phone Number [facility] [address] [place] [phone] * Strep A Nucleic Acid (12/04/2024 12:33 PM EDT) IDNOW SERIAL# [id number] [facility] Strep A Nucleic Acid Negative [...] 3 PM EDT 12/04/2024 12:54 PM EDT us Generic External Data Provider LAB MICROBIOLOGY - GENERAL ORDERABLES Final Result Performing Organization Address [facility] Co de Phone Number [facility] [address] [place] [phone] * SARS-CoV-2 RNA, Influenza A/B, and RSV RNA, Ql NAAT (12/04/2024 12:33 PM EDT) Influenza A PCR NEGATIVE Negative [facility] Influenza B PCR NEGATIVE Negative [facility] Resp Syncy Virus RNA Qual PCR NEGATIVE Negative [facility] SARS COV2 PCR NEGATIVE Negative [facility] Comment:All test results mus t [...] use by authorized laboratories.Testing performed on the Ultimate [employer]pper GeneXpert utilizingreal-time RT-PCR.All SARS CoV2 and positive influenza A/B results arereported to [facility]. 12/04/2024 12:3 3 PM EDT 12/04/2024 12:54 PM EDT Generic External Data Provider LAB MICROBIOLOGY - GENERAL ORDERABLES Final Result [facility] [address] [place] [address] [phone] * (ABNORMAL) POCT Urinalysis (11/27/2024 4:39 [...] Media Lot # [id number] Lot# Expiration Date [id number] Urine 11/27/2024 4:39 PM EDT [facility] POINT OF CARE TEST ENTER/ EDIT ORDERABLES Final Result * (ABNORMAL) POCT HGB A1C (11/27/2024 3:07 PM EDT) Only the most recent of2 resultswithin the time period is included. Hemoglobin A1C 8.7(A) 4.0 - 6.0 % QC Media Lot # [id number] Lot# Expiration Date Blood 11/27/2024 3:07 PM EDT Alexxis Chen EXPANDED DUTY DENTAL ASSISTANT POINT OF CARE TEST ENTER/ EDIT ORDERABLES Final Result * (ABNORMAL) Glucose, Whole Blood (10/18/2024 3:01 PM EST) Glucose, Whole Blood 333(H) 60 - 115 mg/dL [facility] Comment:METER #: [id number] 5Testing performed in the Endocrinology Department [address] , [address], [facility]. 10/18/2024 3:01 PM EST 10/18/2024 3:05 PM EST Generic External Data Provider LAB BLOOD ORDERAB LES Final Result [facility] [address] [place] [address] [phone] * CT Abdomen Pelvis w/o Contrast (10/11/2024 11:08 PM EST) Anatomical Region Laterality Modality Body, Pelvis, Abdomen Computed T omography 10/11/2024 11:0 8 PM EST Narrative 10/11/2024 11:09 PM EST ? [facility] ?[address] [facility] ?[place] [address] ? CT Scan Report ? Signed ? Patient: Brian,Bradford Lopez ?MR#: [id number] ?? [id number] ? : 1995 ?Acct:[id number] ? Age/Sex: 29 / M ?ADM Date: 02/21/25 ? Loc: HO.ED ? Attending Dr: ? Ordering Physician: Jorge Augustin ?? Date of Service: 10/11/24 ?? Procedure(s): CT abdomen pelvis wo IV con ?? Accession Number(s): [id number] ? cc: Name,Everett ROSE; Jorge Augustin ? Report Number: ?? [id number]: Total DLP = ??378.00 mGy-cm ? CLINICAL [...] in OV> ? 10/11/24 2309 ? DD/ 07 ? TD/TT: 10/11/242307 ? Jet Worker: ? Procedure Note Aamir Austin - 10/11/[address] [place] [address] [address] Scan Report Signed Patient: Bradford Torres R#: [id number] : 1995Acct:[id number] Age/Sex: 29 / MADM Date: 10/11/24 Loc: HO.ED Attending Dr: Ordering Physician: Jorge Augustin Date of Service: 10/11/24 Procedure(s): CT abdomen pelvis wo IV con Accession Number(s): [id number] cc: Adele,Everett ROSE; Jorge Augustin Report Number: [id number]: Total DLP = 378.00 mGy-cm CLINICAL HISTORY: [...] in OV> 10/11/242308 DD/ 07 TD/TT: 10/11/242307 Jet Worker: [facility] External Provider IMG CT PROCEDURES Edited Result - Final * Hepatitis C Antibody with Reflex to HCV, RNA, Quantitative, Real-Time PCR (11/15/2023 1:28 PM EDT) Hepatitis C Antibody Nonreactive Nonreactive [facility] Comment:Antibodies to HCV no t detected; does not exclude early acuteHCV infection. Blood Venous blood specimen / Unknown 11/15/2023 1:28 PM EDT 11/15/2023 4:04 PM EDT Amna Renan WINDING OPERATOR LAB BLOOD ORDERABLES Final Resu lt [facility] [address] [place], [place] [phone] * Lipid Panel, Standard (11/15/2023 1:28 PM EDT) Triglycerides 56 <150 mg/dL [facility] Comment:Desirable Triglyceri de: less than [...] 190 mg/dL HDL Cholesterol 50 >40 mg/dL [facility] Comment:Desirable HDL: great er than 40 mg/dL Note: This HDL assay may give artificially low results in patients with liver disease. Blood Venous blood specimen / Unknown 11/15/2023 1:28 PM EDT 11/15/2023 4:04 PM EDT [facility] BLOOD ORDERABLES Final Resu lt Performing Organization Address [facility]/ZIP Co de Phone Number [facility] [address] [place] [phone] * HIV-1 RNA, Quantitative, Real-Time PCR with Reflex to Genotype (RTI, PI, Integrase) (01/06/2023 10:25 AM EDT) Pathologist [facility] HIV 1 RNA, QN PCR NOT DETECTED copies/mL [facility], HIV 1 RNA, QN PCR NOT DETECTED Log copies/mL [facility], Comment: REFERENCE RANGE: NOT DETECTED copies/mL ?NOT DETECTED ??Log copies/mL This test was performed using Real-Time Polymerase Chain Reaction. Reportable range is 20 to 10,000,000 copies/mL (1.30-7.00 Log copies/mL). 01/06/2023 10:2 5 AM EDT 01/06/2023 10:26 AM EDT Narrative [facility] - 01/11/2023 1:53 AM EDT FASTING:NO SPECIMEN COLLECTED AT PROVIDER OFFICE. FASTING: NO [facility] LAB BLOOD ORDERABLES Final Resu lt [facility] [address] [facility] [place] [address] [facility], [address] [place] [phone] from Last 3 Months or Most Recently Relevant to Health Maintenance Insurance [facility] [place] Care Teams Stock Replenisher Relationship Specialty Start Date End Date Sahil Chen CNP [address] [place] [phone] PCP - General Family Medicine 10/09/24 Chris Pack Jr Mattress PackerDining Car Server 09/04/24
--- OUTSIDE RECORDS SUMMARY | 2025-01-03 22:51 | XMS_ITS | Encounter Summary ---
Author Organization [employer] Address [address] [place] [address] Care Team Providers Care Mat Machine Operator Name Role Phone Name, Everett ROSE Primary Care Provider [phone] Sahil Chen CNP Primary Care Provider [phone] Encounter Details Date Type Department Care Team (Late st Contact Info) Description 04/21/2024 Orders Only [facility]S [address] [place], [place] [phone] Amna Urrutia FNP [address] [place], [place] [phone] Social History Tobacco Use Types Packs/Day Years [...] Description 01/31/2025 1:00 PM EDT Office Visit [facility] [address] [place] [phone] Sahil Chen CNP [address] [place] [address] documented as of this encounter Visit Diagnoses Not on filedocumented in this encounter Additional Health Concerns Assessment Noted Time PHQ-9 Depression Total Score: 20 024 2:42 PM EDT documented as of this encounter Care Teams Mat Machine Operator Relationship Specialty Start Date End Date Name, MD Everett [address] [place] [phone] PCP - General Internal Medicine 04/19/24 10/08/24 Sahil Chen CNP [address] [place] [phone] PCP - General Family Medicine 10/09/24 Chris Pack Jr Crayon Sorting Machine FeederDirector Of Clinical Trials 09/04/24 documented as of this encounter
--- OUTSIDE RECORDS SUMMARY | 2025-01-03 22:51 | XMS_ITS | Encounter Summary ---
Author Organization [employer] Address [address] [facility] 7t [place] [address] Care Team Providers Care Property Officer Name Role Phone Amna Urrutia Primary Care Provider [phone] Name, Everett ROSE Primary Care Provider [phone] Sahil Chen CNP Primary Care Provider [phone] Reason for Visit * Reason Onset Date Comments Appointment Request 09/08/2023 Encounter Details Date Type Department Care Team ([facility] Contact Info) Description 09/08/2023 Telephone [facility] [address] [place] [address] Amna Urrutia FNP [address] [place] [address] Appointment Request Social History Tobacco Use Types [...] reschedule missed appt on 09/06 however underwriter was not able to offer apptdue to the provider did not have any availably documented in this encounter Plan of Treatment Upcoming Encounters Date Type Department Care Team (Late st Contact Info) Description 01/31/2025 1:00 PM EDT Office Visit [facility] [address] [place], [place] [phone] Sahil Chen CNP [address] [place] [address] documented as of this encounter Visit Diagnoses Not on filedocumented in this encounter Additional Health Concerns Assessment Noted Time PHQ-9 Depression Total Score: 16 023 8:52 AM EDT documented as of this encounter Care Teams Property Officer Relationship Specialty Start Date End Date Amna Urrutia FNP [address] [place] [address] PCP - General Family Medicine 01/01/23 04/18/24 Everett Angulo MD [address] [place], [place] [phone] PCP - General Internal Medicine 04/19/24 10/08/24 Sahil Chen CNP [address] [place] [address] [phone] PCP - General Family Medicine 10/09/24 Chris Pack Jr Hammer Shop SupervisorClearing Distribution Clerk 09/04/24 documented as of this encounter
--- OUTSIDE RECORDS SUMMARY | 2025-01-03 22:51 | XMS_ITS | Encounter Summary ---
Author Organization [employer] Address [address] [facility] [address] 7t [place] [address] Care Team Providers Care Adjunct Physical Education Instructor Name Role Phone Amna Urrutia Primary Care Provider [phone] Name, Everett ROSE Primary Care Provider Sahil Chen CNP Primary Care Provider [phone] Reason for Visit * Reason Comments Med Refill Encounter Details Date Type Department Care Team ([facility] st Contact Info) Description 09/11/2023 Refill [facility] [address] [place], [place] [phone] Amna Urrutia FNP [address] [place] [address] Type 1 diabetes mellitus with hyperglycemia ([facility]) Social History Tobacco [...] Office Visit [facility] [address] [place] [address] Sahil Chen CNP 230 [place] [address] documented as of this encounter Visit Diagnoses Diagnosis Type 1 diabetes mellitus with hyperglycemia (CMS/HCC) documented in this encounter Additional Health Concerns Assessment Noted Time PHQ-9 Depression Total Score: 16 023 8:52 AM EDT documented as of this encounter Care Teams Adjunct Physical Education Instructor Relationship Specialty Start Date End Date Amna Urrutia FNP [address] [place] [address] 31808 PCP - General Family Medicine 01/01/23 04/18/24 Everett Angulo MD [address] [place] [address] 87647 PCP - General Internal Medicine 04/19/24 10/08/24 Sahil Chen CNP [address] [place] [address] 27[address] PCP - General Family Medicine 10/09/24 Chris Pack Jr Oil Filters InspectorLine Repairer 09/04/24 documented as of this encounter
--- OUTSIDE RECORDS SUMMARY | 2025-01-03 22:51 | XMS_ITS | Encounter Summary ---
Author Organization [employer] Address [address] [facility] 7t [place] [address] Care Team Providers Care Auto Damage Trainee Name Role Phone Amna Urrutia Primary Care Provider [phone] Adele, Everett ROSE Primary Care Provider [phone] Sahil Chen CNP Primary Care Provider [phone] Reason for Visit * Reason Onset Date Comments Med Refill 07/17/2023 Encounter Details Date Type Department Care Team (Late st Contact Info) Description 07/17/2023 Refill [facility] [address] [place] [address] Sandra Leal MD [address] [place] [address] Social History Tobacco Use Types Packs/Day Years [...] Description 01/31/2025 1:00 PM EDT Office Visit [facility] [address] [place] [address] Sahil Chen CNP [address] [place] [address] documented as of this encounter Visit Diagnoses Not on filedocumented in this encounter Additional Health Concerns Assessment Noted Time PHQ-9 Depression Total Score: 16 023 8:52 AM EDT documented as of this encounter Care Teams Auto Damage Trainee Relationship Specialty Start Date End Date Amna Urrutia FNP [address] [place] [address] PCP - General Family Medicine 01/01/23 04/18/24 Everett Angulo MD [address] [place] [address]31 PCP - General Internal Medicine 04/19/24 10/08/24 Sahil Chen CNP [address] [place] [address] 364[address] PCP - General Family Medicine 10/09/24 Chris Pack Jr Cath Lab Radiological TechnologistMorphology Teacher 09/04/24 documented as of this encounter
--- OUTSIDE RECORDS SUMMARY | 2025-01-03 22:51 | XMS_ITS | Encounter Summary ---
Author Organization [employer] Address [address] [facility] [address] 7t [place] [address] Care Team Providers Care Loop Sewer Name Role Phone Amna Urrutia Primary Care Provider [phone] Adele, Everett ROSE Primary Care Provider [phone] Sahil Chen CNP Primary Care Provider [phone] Encounter Details Date Type Department Care Team (Late st Contact Info) Description 06/28/[address] [facility] [address] [place], [place] [phone] Santos Mueller MD 230 [place] [address] Social History Tobacco Use Types Packs/Day Years [...] Description 01/31/2025 1:00 PM EDT Office Visit [facility] [address] [place] [address] Sahil Chen CNP 230 [place] [address] documented as of this encounter Visit Diagnoses Not on filedocumented in this encounter Additional Health Concerns Assessment Noted Time PHQ-9 Depression Total Score: 16 023 8:52 AM EDT documented as of this encounter Care Teams Loop Sewer Relationship Specialty Start Date End Date Amna Urrutia FNP [address] [place] [address] 567[address] PCP - General Family Medicine 01/01/23 04/18/24 Everett Angulo MD [address] [place] [address] 30451 PCP - General Internal Medicine 04/19/24 10/08/24 Sahil Chen CNP [address] [place] [address] PCP - General Family Medicine 10/09/24 Chris Pack Jr Explosive Ordnance Disposal TechnicianPlaner Operator / Grader 09/04/24 documented as of this encounter
--- OUTSIDE RECORDS SUMMARY | 2025-01-03 22:51 | XMS_ITS | Encounter Summary ---
Author Organization [facility] Address [address] [place] [address] Phone Care Team Providers Care Antenna Specialist Name Role Phone Santos Mueller MD Primary Care Provider [phone] Encounter Details Date Type Department Care Team (Late st Contact Info) Description 08/05/2024 Documentation Only [facility] [place], [address] [place] [address] Jessica Sprague [address] [place] [address] Social History Tobacco Use Types [...] on filedocumented in this encounter Care Teams Antenna Specialist Relationship Specialty Start Date End Date Santos Mueller MD 230 [place] [address] PCP - General Emergency Medicine 07/28/23 documented as of this encounter
--- OUTSIDE RECORDS SUMMARY | 2025-01-03 22:51 | XMS_ITS | Encounter Summary ---
Author Organization [employer] Address [address] [facility] 7t [place] [address] Care Team Providers Care Generator Operator Name Role Phone Amna Urrutia Primary Care Provider [phone] Adele, Everett ROSE Primary Care Provider [phone] Sahil Chen CNP Primary Care Provider [phone] Reason for Visit * Reason Onset Date Comments Med Refill 07/15/2023 Encounter Details Date Type Department Care Team (Late st Contact Info) Description 07/15/2023 Refill [facility] 230 [place] [address] Sandra Leal MD [address] [place] [address] Social History Tobacco Use Types Packs/Day Years [...] Description 01/31/2025 1:00 PM EDT Office Visit [facility] [address] [place] [address] Sahil Chen CNP 230 [place] [address] documented as of this encounter Visit Diagnoses Not on filedocumented in this encounter Additional Health Concerns Assessment Noted Time PHQ-9 Depression Total Score: 16 023 8:52 AM EDT documented as of this encounter Care Teams Generator Operator Relationship Specialty Start Date End Date Amna Urrutia FNP [address] [place] [address] 505[address] PCP - General Family Medicine 01/01/23 04/18/24 Everett Angulo MD [address] [place] [address] PCP - General Internal Medicine 04/19/24 10/08/24 Sahil Chen CNP [address] [place] [address]117 PCP - General Family Medicine 10/09/24 Chris Pack Jr Electric Wheelchair RepairerObstetrics Gynecology Md 09/04/24 documented as of this encounter
--- OUTSIDE RECORDS SUMMARY | 2025-01-03 22:51 | XMS_ITS | Encounter Summary ---
Author Organization [facility] Address [address] [place] [address] Phone Care Team Providers Care Physical Testing Supervisor Name Role Phone Santos Mueller MD Primary Care Provider [phone] Encounter Details Date Type Department Care Team (Late st Contact Info) Description 08/05/2024 Documentation Only [facility] [place], [address] [place] [address] Jessica Sprague [address] [place] [address] Social History Tobacco Use Types [...] on filedocumented in this encounter Care Teams Physical Testing Supervisor Relationship Specialty Start Date End Date Santos Mueller MD 230 [place] [address] PCP - General Emergency Medicine 07/28/23 documented as of this encounter
--- OUTSIDE RECORDS SUMMARY | 2025-01-03 22:51 | XMS_ITS | Encounter Summary ---
Author Organization [employer] Address [address] [facility] [address] 7t [place] [address] Care Team Providers Care Oil Truck Driver Name Role Phone Amna Urrutia Primary Care Provider [phone] Adele, Everett ROSE Primary Care Provider [phone] Sahil Chen CNP Primary Care Provider [phone] Reason for Visit * Reason Onset Date Comments reaction to medication 10/24/2022 Encounter Details Date Type Department Care Team ([facility] st Contact Info) Description 10/24/2022 Telephone [facility] 230 [place] [address] Marycruz Oseguera DDS 230 [place] [address] reaction to medication Social History Tobacco Use [...] Description 01/31/2025 1:00 PM EDT Office Visit [facility] 230 [place], [place] [phone] Sahil Chen CNP 230 [place] [address] documented as of this encounter Visit Diagnoses Not on filedocumented in this encounter Care Teams Oil Truck Driver Relationship Specialty Start Date End Date Amna Urrutia FNP [address] [place] [address] 468[address] PCP - General Family Medicine 01/01/23 04/18/24 Everett Angulo MD [address] [place] [address] PCP - General Internal Medicine 04/19/24 10/08/24 Sahil Chen CNP [address] [place] [address] 10577 PCP - General Family Medicine 10/09/24 Chris Pack Jr Resident Care ProviderLeather Seasoner 09/04/24 documented as of this encounter
--- OUTSIDE RECORDS SUMMARY | 2025-01-03 22:51 | XMS_ITS | Encounter Summary ---
Author Organization [employer] Address [address] [facility] [address] 7t [place] [address] Care Team Providers Care Peer Counselor Name Role Phone Amna Urrutia Primary Care Provider [phone] Name, Everett ROSE Primary Care Provider [phone] Sahil Chen CNP Primary Care Provider [phone] Reason for Visit * Reason Onset Date Comments Med Refill 07/28/2023 Encounter Details Date Type Department Care Team (Late st Contact Info) Description 07/28/2023 Refill [facility] [address] [place] [address] Amna Urrutia FNP [address] [place] [address] Social History Tobacco Use Types Packs/Day Years [...] [facility] [address] [place] [address] Sahil Chen CNP 230 [place] [address] documented as of this encounter Visit Diagnoses Not on filedocumented in this encounter Additional Health Concerns Assessment Noted Time PHQ-9 Depression Total Score: 16 023 8:52 AM EDT documented as of this encounter Care Teams Peer Counselor Relationship Specialty Start Date End Date Amna Urrutia FNP [address] [place] [address] PCP - General Family Medicine 01/01/23 04/18/24 Everett Angulo MD [address] [place] [address] 33806 PCP - General Internal Medicine 04/19/24 10/08/24 Sahil Chen CNP [address] [place] [address] [phone] PCP - General Family Medicine 10/09/24 Chris Pack Jr Deputy Sheriff Building GuardRegrinder Operator 09/04/24 documented as of this encounter
--- OUTSIDE RECORDS SUMMARY | 2025-01-03 22:51 | XMS_ITS | Encounter Summary ---
Author Organization [facility] Address [address] [place] [address] Phone Care Team Providers Care Vacuum Metalizing Supervisor Name Role Phone Santos Mueller MD Primary Care Provider [phone] Encounter Details Date Type Department Care Team (Late st Contact Info) Description 08/05/2024 Documentation Only [facility] [place], [address] [place] [address] Jessica Sprague [address] [place] [address] Social History Tobacco Use Types [...] on filedocumented in this encounter Care Teams Vacuum Metalizing Supervisor Relationship Specialty Start Date End Date Santos Meuller MD 230 [place] [address] PCP - General Emergency Medicine 07/28/23 documented as of this encounter
--- OUTSIDE RECORDS SUMMARY | 2025-01-03 22:51 | XMS_ITS | Encounter Summary ---
Author Organization [employer] Address [address] [facility] [address] 7t [place] [address] Care Team Providers Care Bait Packer Name Role Phone Amna Urrutia Primary Care Provider [phone] Name, Everett ROSE Primary Care Provider [phone] Sahil Chen CNP Primary Care Provider [phone] Reason for Visit * Reason Comments Med Refill Encounter Details Date Type Department Care Team ([facility] st Contact Info) Description 05/30/2023 Refill [facility] 230 [place], [place] [phone] Amna Urrutia FNP 230 [place] [address] Social History Tobacco Use Types Packs/Day Years [...] PM EDT Office Visit [facility] [address] [place] [address] Sahil Chen CNP 230 [place] [address] documented as of this encounter Visit Diagnoses Not on filedocumented in this encounter Additional Health Concerns Assessment Noted Time PHQ-9 Depression Total Score: 16 023 8:52 AM EDT documented as of this encounter Care Teams Bait Packer Relationship Specialty Start Date End Date Amna Urrutia FNP [address] [place] [address] 34643 PCP - General Family Medicine 01/01/23 04/18/24 Everett Angulo MD [address] [place] [address] [phone] PCP - General Internal Medicine 04/19/24 10/08/24 Sahil Chen CNP [address] [place] [address] [phone] PCP - General Family Medicine 10/09/24 Chris Pack Jr Drug Safety Data Management SpecialistEnvelope Adjuster 09/04/24 documented as of this encounter
--- OUTSIDE RECORDS SUMMARY | 2025-01-03 22:51 | XMS_ITS | Encounter Summary ---
Author Organization [employer] Address [address] [facility] [address] 7t [place] [address] Care Team Providers Care Framing Mill Operator Name Role Phone Amna Urrutia Primary Care Provider [phone] Name, Everett ROSE Primary Care Provider [phone] Sahil Chen CNP Primary Care Provider [phone] Reason for Visit * Reason Onset Date Comments Med Refill 07/17/2023 Encounter Details Date Type Department Care Team (Late st Contact Info) Description 07/17/[address] [facility] 230 [place] [address] Amna Urrutia FNP 230 [place] [address] Social History Tobacco Use Types Packs/Day Years [...] Description 01/31/2025 1:00 PM EDT Office Visit [facility] [address] [place] [address] Sahil Chen CNP 230 [place] [address] documented as of this encounter Visit Diagnoses Not on filedocumented in this encounter Additional Health Concerns Assessment Noted Time PHQ-9 Depression Total Score: 16 023 8:52 AM EDT documented as of this encounter Care Teams Framing Mill Operator Relationship Specialty Start Date End Date Amna Urrutia FNP [address] [place] [address] 45481 PCP - General Family Medicine 01/01/23 04/18/24 Everett Angulo MD [address] [place] [address] 71777 PCP - General Internal Medicine 04/19/24 10/08/24 Sahil Chen CNP [address] [place] [address] [phone] PCP - General Family Medicine 10/09/24 Chris Pack Jr Log PeelerCoatings Inspector 09/04/24 documented as of this encounter
--- OUTSIDE RECORDS SUMMARY | 2025-01-03 22:51 | XMS_ITS | Encounter Summary ---
Author Organization [facility] Address [address] [place] [address] Phone Care Team Providers Care Outdoor Guide Name Role Phone Santos Mueller MD Primary Care Provider [phone] Encounter Details Date Type Department Care Team (Late st Contact Info) Description 07/28/2023 Documentation Only [facility] [employer], [address] [place] [address] Santos Mueller MD [address] [place] [address] Social History Tobacco Use Types [...] on filedocumented in this encounter Care Teams Outdoor Guide Relationship Specialty Start Date End Date Santos Mueller MD [address] [place] [address] PCP - General Emergency Medicine 07/28/23 documented as of this encounter
--- OUTSIDE RECORDS SUMMARY | 2025-01-03 22:51 | XMS_ITS | Encounter Summary ---
Author Organization [employer] Address [address] [facility] [address] 7t [place] [address] Care Team Providers Care Painter Shipyard Name Role Phone Amna Urrutia Primary Care Provider [phone] Adele, Everett ROSE Primary Care Provider [phone] Sahil Chen CNP Primary Care Provider [phone] Reason for Visit * Reason Onset Date Comments Med Refill 07/28/2023 Encounter Details Date Type Department Care Team (Late st Contact Info) Description 07/28/2023 Refill [facility] 230 [place], [place] [phone] Denice Rubin MD 230 [place] [address] Social History Tobacco Use Types Packs/Day Years [...] 01/31/2025 1:00 PM EDT Office Visit [facility] [address] [place] [address] Sahil Chen CNP 230 [place] [address] documented as of this encounter Visit Diagnoses Not on filedocumented in this encounter Additional Health Concerns Assessment Noted Time PHQ-9 Depression Total Score: 16 023 8:52 AM EDT documented as of this encounter Care Teams Painter Shipyard Relationship Specialty Start Date End Date Amna Urrutia FNP [address] [place] [address] 9[address] PCP - General Family Medicine 01/01/23 04/18/24 Everett Angulo MD [address] [place] [address] 34481 PCP - General Internal Medicine 04/19/24 10/08/24 Sahil Chen CNP [address] [place] [address] [phone] PCP - General Family Medicine 10/09/24 Chris Pack Jr Hair PreparerNegative Stripper 09/04/24 documented as of this encounter
--- OUTSIDE RECORDS SUMMARY | 2025-01-03 22:51 | XMS_ITS | Encounter Summary ---
Author Organization [employer] Address 75 [facility] 7t [place] [address] Care Team Providers Care Cook Starch Name Role Phone Amna Urrutia Primary Care Provider [phone] Name, Everett ROSE Primary Care Provider Sahil Chen CNP Primary Care Provider [phone] Reason for Visit * Reason Onset Date Comments Nurse Triage 05/30/2023 Encounter Details Date Type Department Care Team ([facility] st Contact Info) Description 05/30/2023 Telephone [facility] 230 [place] [address] Amna Urrutia FNP [address] [place] [address] Nurse Triage Social History Tobacco Use Types [...] discharge summary for patient seen at [facility] 05/29/23 following head injury at work. Scheduled for follow up below Future Appointments Date Time Provider Department Center 05/31/2023 11:30 AM Denice Rubin MD [facility] * Telephone Encounter - Marline Vega RN - 05/30/2023 1:27 PM EDT Call to Bradford Torres, reports having been seen at [facility] 05/29 due to concussion that occurred [...] and states is still in pain ( administrative underwriter was un able to take all details information due to call hanging up ) . Patient advised will forward to triage nursefor follow up. documented in this encounter Plan of Treatment Upcoming Encounters Date Type Department Care Team (Late st Contact Info) Description 01/31/2025 1:00 PM EDT Office Visit [facility] 230 [place] [address] Sahil Chen CNP 230 [place] [address] documented as of this encounter Visit Diagnoses Not on filedocumented in this encounter Additional Health Concerns Assessment Noted Time PHQ-9 Depression Total Score: 16 023 8:52 AM EDT documented as of this encounter Care Teams Cook Starch Relationship Specialty Start Date End Date Amna Urrutia FNP [address] [place] [address]48 PCP - General Family Medicine 01/01/23 04/18/24 Everett Angulo MD [address] [place] [address] [phone] PCP - General Internal Medicine 04/19/24 10/08/24 Sahil Chen CNP [address] [place] [address] 85857 PCP - General Family Medicine 10/09/24 Chris Pack Jr Supervisor Rolling RoomDrum Worker 09/04/24 documented as of this encounter
--- OUTSIDE RECORDS SUMMARY | 2025-01-03 22:51 | XMS_ITS | Clinical Summary ---
Author Organization [facility] Address [address] [place] [address] Phone Care Team Providers Care Hand Flatwork Finisher Name Role Phone Sahil Chen CASH APPLICATIONS MANAGER Primary Care Provider [phone] Social History Tobacco Use Types Packs/Day Years Used Date Smoking Tobacco: Never Assessed Sex and Gender Information Value Date Recorded Sex Assigned at Not on file Legal Sex Male 1:38 PM EDT Gender Identity Not on file Sexual Orientation Not on file Plan of Treatment Upcoming Encounters Date Type Department Care Team ([facility] Contact Info) Description 01/29/2025 3:00 PM EDT Consult Orthopedic Surgery - [place] [address] [phone] Devan Alonso, DPM [address] [address] Health Maintenance Due Date Last Done Comments Diabetes: Annual GFR (Glomer ular Filtration Rate) 1996 Diabetes: Annual Foot Exam 02/07/2006 Diabetes: Annual Retina Eye Exam 02/07/2006 DTaP,Tdap,and Td Vaccines (1 - Tdap) 02/07/2015 Hepatitis B Vaccines (1 of 3 - 19+ 3-dose series) 02/07/2015 Pneumococcal Vaccine: Pediat rics (0 to 5 Years) and At-Risk Patients (6 to 64 Years) (1 of 2 - PCV) 02/07/2015 Cholesterol Screening (Lipid Panel) 03/13/2024 Depression Screening 03/13/2024 HIV Screening 03/13/2024 Hepatitis C Screening 03/13/2024 Social Influencers of Health Screening 03/13/2024 COVID-19 Vaccine (1 - 2023-2 5 season) 2024 Diabetes: Annual Urine Albumin-Creatinine Ratio (uACR) 01/01/2025 Diabetes: Blood Sugar Contro l Test (HGBA1C) 01/01/2025 Influenza Vaccine (Season Ended) 2025 HIB Vaccines [...] on patient's age to complete this topic Insurance MEDICAID - [place] Care Teams Hand Flatwork Finisher Relationship Specialty Start Date End Date Sahil Chen NP [address] [place] [address] PCP - General Family Medicine 01/01/25
--- OUTSIDE RECORDS SUMMARY | 2025-01-03 22:51 | XMS_ITS | Encounter Summary ---
Author Organization [employer] Address [address] [facility] [address] 7t [place] [address] Care Team Providers Care Precision Lens Grinder Name Role Phone Amna Urrutia Primary Care Provider [phone] Name, Everett ROSE Primary Care Provider Sahil Chen CNP Primary Care Provider [phone] Reason for Visit * Reason Onset Date Comments Med Refill 05/30/2023 Encounter Details Date Type Department Care Team (Late st Contact Info) Description 05/30/[address] [facility] [address] [place] [address] Amna Urrutia FNP [address] [place] [address] Social History Tobacco Use Types Packs/Day Years [...] 01/31/2025 1:00 PM EDT Office Visit [facility] [address] [place] [address] Sahil Chen CNP 230 [place] [address] documented as of this encounter Visit Diagnoses Not on filedocumented in this encounter Additional Health Concerns Assessment Noted Time PHQ-9 Depression Total Score: 16 023 8:52 AM EDT documented as of this encounter Care Teams Precision Lens Grinder Relationship Specialty Start Date End Date Amna Urrutia FNP [address] [place] [address] PCP - General Family Medicine 01/01/23 04/18/24 Everett Angulo MD [address] [place] [address] PCP - General Internal Medicine 04/19/24 10/08/24 Sahil Chen CNP [address] [place] [address] [phone] PCP - General Family Medicine 10/09/24 Chris Pack Jr Painter And Body WorkPewter Caster 09/04/24 documented as of this encounter
--- OUTSIDE RECORDS SUMMARY | 2025-01-03 22:51 | XMS_ITS | Encounter Summary ---
Author Organization [employer] Address [address] [facility] [facility] [address] 7t [place] [address] Care Team Providers Care Log Sawyer Name Role Phone Amna Urrutia Primary Care Provider [phone] Name, Everett ROSE Primary Care Provider [phone] Sahil Chen CNP Primary Care Provider [phone] Reason for Visit * Reason Comments Med Refill Encounter Details Date Type Department Care Team ([facility] st Contact Info) Description 09/08/2023 Refill [facility] MEDICINE [address] [place], [place] [phone] Amna Urrutia FNP [address] [place] [address] Type 1 diabetes mellitus with hyperglycemia ([facility]) Social History Tobacco Use Types [...] EDT Office Visit [facility] MEDICINE [address] [place] [address] Sahil Chen CNP 230 [place] [address] documented as of this encounter Visit Diagnoses Diagnosis Type 1 diabetes mellitus with hyperglycemia (CMS/HCC) documented in this encounter Additional Health Concerns Assessment Noted Time PHQ-9 Depression Total Score: 16 023 8:52 AM EDT documented as of this encounter Care Teams Log Sawyer Relationship Specialty Start Date End Date Amna Urrutia FNP [address] [place] [address] PCP - General Family Medicine 01/01/23 04/18/24 Everett Angulo MD [address] [place] [address] PCP - General Internal Medicine 04/19/24 10/08/24 Sahil Chen CNP [address] [place] [address] PCP - General Family Medicine 10/09/24 Chris Pack Jr ScarferP 3 Armament/Ordnance Ima Technician 09/04/24 documented as of this encounter
--- OUTSIDE RECORDS SUMMARY | 2025-01-03 22:51 | XMS_ITS | Encounter Summary ---
Author Organization [employer] Address [address] [facility] 7t [place] [address] Care Team Providers Care B And B Gang Worker Name Role Phone Amna Urrutia Primary Care Provider [phone] Name, Everett ROSE Primary Care Provider [phone] Sahil Chen CNP Primary Care Provider [phone] Encounter Details Date Type Department Care Team (Late Contact Info) Description 10/21/2022 Abstract [facility] [address] [place] [address] Marycruz Oseguera DDS [address] [place] [address] Social History Tobacco Use Types Packs/Day Years [...] Description 01/31/2025 1:00 PM EDT Office Visit [facility] MEDICINE [address] [place] [address] Sahil Chen CNP 230 [place] [address] documented as of this encounter Visit Diagnoses Not on filedocumented in this encounter Care Teams B And B Gang Worker Relationship Specialty Start Date End Date Amna Urrutia FNP [address] [place], [place] [phone] PCP - General Family Medicine 01/01/23 04/18/24 Name, MD Everett 230 [place], [place] [phone] PCP - General Internal Medicine 04/19/24 10/08/24 Sahil Chen CNP 230 [place], [place] [phone] PCP - General Family Medicine 10/09/24 Chris Pack Jr Fleet AssistantSkoog Patching Machine Operator 09/04/24 documented as of this encounter
--- OUTSIDE RECORDS SUMMARY | 2025-01-03 22:51 | XMS_ITS | Encounter Summary ---
Author Organization [employer] Address [address] [facility] [address] 7[address] [place] [address] Care Team Providers Care Tailer Out Name Role Phone Amna Urrutia Primary Care Provider [phone] Name, Everett ROSE Primary Care Provider [phone] Sahil Chen CNP Primary Care Provider [phone] Reason for Visit * Reason Onset Date Comments Med Refill 09/27/2023 Encounter Details Date Type Department Care Team (Late st Contact Info) Description 09/27/2023 Refill [facility] MEDICINE [address] [place], [place] [phone] Amna Urrutia FNP [address] [place] [address] Type 1 diabetes mellitus with hyperglycemia ([facility]/HCC) Social History Tobacco Use Types Packs/Day [...] Office Visit [facility] MEDICINE [address] [place] [address] Sahil Chen CNP [address] [place] [address] documented as of this encounter Visit Diagnoses Diagnosis Type 1 diabetes mellitus with hyperglycemia (CMS/HCC) documented in this encounter Additional Health Concerns Assessment Noted Time PHQ-9 Depression Total Score: 16 023 8:52 AM EDT documented as of this encounter Care Teams Tailer Out Relationship Specialty Start Date End Date Amna Urrutia FNP [address] [place] [address] PCP - General Family Medicine 01/01/23 04/18/24 Everett Angulo MD [address] [place] [address] PCP - General Internal Medicine 04/19/24 10/08/24 Sahil Chen CNP [address] [place] [address] PCP - General Family Medicine 10/09/24 Chris Pack Jr Technical Sales Support SpecialistHydrological Technical Officer 09/04/24 documented as of this encounter
--- OUTSIDE RECORDS SUMMARY | 2025-01-03 22:51 | XMS_ITS | Encounter Summary ---
Author Organization [employer] Address [address] 7t [place] [address] Care Team Providers Care Retail Key Holder Name Role Phone Name, Everett ROSE Primary Care Provider [phone] Sahil Chen CNP Primary Care Provider [phone] Reason for Visit * Reason Comments Med Refill Encounter Details Date Type Department Care Team (Late st Contact Info) Description 05/03/2024 Refill [facility] [address] [place], [place] [phone] Amna Urrutia FNP [address] [place] [address] Type 1 diabetes mellitus with hyperglycemia (CMS/[facility]) Social History Tobacco [...] Description 01/31/2025 1:00 PM EDT Office Visit [facility] [address] [place] [address] Sahil Chen CNP 230 [place] [address] documented as of this encounter Visit Diagnoses Diagnosis Type 1 diabetes mellitus with hyperglycemia (CMS/HCC) documented in this encounter Additional Health Concerns Assessment Noted Time PHQ-9 Depression Total Score: 20 024 2:42 PM EDT documented as of this encounter Care Teams Retail Key Holder Relationship Specialty Start Date End Date Name, MD Everett [address] [place] [address] PCP - General Internal Medicine 04/19/24 10/08/24 Sahil Chen CNP [address] [place] [address] [phone] PCP - General Family Medicine 10/09/24 Chris Pack Jr Test PreparerHog Cutter 09/04/24 documented as of this encounter
--- OUTSIDE RECORDS SUMMARY | 2025-01-03 22:51 | XMS_ITS | Clinical Summary ---
Author Organization [facility], Address [address] [place] [address] [place] [address] Phone Care Team Providers Care Hatchery Supervisor Name Role Phone Santos Mueller MD Primary Care Provider [phone] Allergies Active Allergy Reactions Criticality Noted Date [...] 06/08/20 16 Insurance Medicaid [place] Care Teams Hatchery Supervisor Relationship Specialty Start Date End Date Santos Mueller MD [address] [place] [phone] PCP - General Emergency Medicine 07/28/23
--- OUTSIDE RECORDS SUMMARY | 2025-01-03 22:51 | XMS_ITS | Encounter Summary ---
Author Organization [employer] Address [address] [facility] [address] 7t [place] [address] Care Team Providers Care Special Systems Technician Name Role Phone Gustavo Delkalyan ZAMORA Primary Care Provider [phone] Encounter Details Date Type Department Care Team [...] 1:00 PM EDT Office Visit [facility] MEDICINE 230 [place], [place] [phone] Sahil Chen, CUT OFF SAW SET UP OPERATOR 230 [place], [place] [phone] documented as of this encounter Procedures Procedure Name Priority Date/Time Associated Diagnosis Comments GLUCOSE, WHOLE BLOOD Routine 12/29/2024 1:10 PM EDT URINALYSIS, COMPLETE, WITH REFLEX TO CULTURE Routine 12/29/2024 12:32 PM EDT GLUCOSE, WHOLE BLOOD Routine 12/29/2024 11:29 AM EDT documented in this encounter Results * (ABNORMAL) Glucose, Whole Blood (12/29/2024 1:10 PM EDT) Glucose, Whole Blood 266(H) 60 - 115 mg/dL [facility] Comment:METER #: [id number] 12/29/2024 1:10 PM EDT 12/29/2024 1:14 PM EDT us Generic External Data Provider LAB BLOOD ORDERAB LES Final Result [facility] [address] [place] [phone] * (ABNORMAL) Urinalysis, Complete, with Reflex to Culture (12/29/2024 12:32 PM EDT) Color Urine Yellow [facility] Appearance Urine Clear [facility] PH 6.5 5.0 - 9.0 [facility] Glucose Urine UA 100(A) Negative mg/dL [facility] Urine Blood Negative Negative [facility] Specific [place] - Urine >=1.030(H) 1.005 - 1.025 [facility] Urine Protein Trace Neg-Trace mg/dL [facility] Urine Ketones Negative Negative mg/dL [facility] Nitrite Urine Negative Negative [facility] Leukocyte Esterase Urine Negative Negative [facility] RBC Urine 0-2 0 - 2 /HPF [facility] Urine WBC 0-5 0 - 5 /HPF [facility] Urine Squamous Epithelial Cell 0-2 0 - 2 /HPF [facility] Urine Bacteria None Seen None Seen [facility] Hyaline Casts, Urine 0-2 0 - 2 /LPF [facility] 12/29/2024 12:3 2 PM EDT 12/29/2024 12:40 PM EDT Narrative [facility] - 12/29/2024 12:49 PM EDT Urine, Clean Catch us Generic External Data Provider LAB URINE ORDERAB LES Final Result Performing Organization Address [facility] Co de Phone Number [facility] [address] [place] [phone] * (ABNORMAL) Glucose, Whole Blood (12/29/2024 11:29 AM EDT) Glucose, Whole Blood 127(H) 60 - 115 mg/dL [facility] Comment:METER #: [id number] 12/29/2024 11:2 9 AM EDT 12/29/2024 11:33 AM EDT Generic External Data Provider LAB BLOOD ORDERAB LES Final Result Performing Organization Address [facility] Co de Phone Number [facility] [address] [place] [phone] documented in this encounter Visit Diagnoses Not on filedocumented in this encounter Additional Health Concerns Assessment Noted Time PHQ-9 Depression Total Score: 19 11/27/ 025 3:09 PM EDT documented as of this encounter Care Teams Special Systems Technician Relationship Specialty Start Date End Date Sahil Chen CNP [address] [place] [address] PCP - General Family Medicine 10/09/24 Chris Pack Jr Steward/Stewardess Smoke RoomShop Service Technician 09/04/24 documented as of this encounter
--- OUTSIDE RECORDS SUMMARY | 2025-01-03 22:52 | XMS_ITS | Encounter Summary ---
Author Organization [employer] Address [address] [place] [address] 7 [place] [address] Care Team Providers Care Manager Title Name Role Phone Amna Urrutia Primary Care Provider [phone] Name, Everett ROSE Primary Care Provider [phone] Sahil Chen CNP Primary Care Provider [phone] Reason for Visit * Reason Onset Date Comments Med Refill 05/01/2023 Encounter Details Date Type Department Care Team (Late st Contact Info) Description 05/01/2023 Refill [facility] MEDICINE [address] [place] [address] [phone] Sandra Leal MD [address] [place] [address] [phone] Social History Tobacco Use Types Packs/Day Years [...] 1:00 PM EDT Office Visit [facility] MEDICINE [address] [place] [address] [phone] Sahil Chen CNP 230 [place] [address] documented as of this encounter Visit Diagnoses Not on filedocumented in this encounter Additional Health Concerns Assessment Noted Time PHQ-9 Depression Total Score: 16 023 8:52 AM EDT documented as of this encounter Care Teams Manager Title Relationship Specialty Start Date End Date Amna Urrutia FNP 230 [place], [place] [phone] PCP - General Family Medicine 01/01/23 04/18/24 Name, MD Everett 230 [place], [place] [phone] PCP - General Internal Medicine 04/19/24 10/08/24 Sahil Chen CNP 230 [place], [place] [phone] PCP - General Family Medicine 10/09/24 Chris Pack Jr Real Estate Site AnalystVisual Presentation Manager 09/04/24 documented as of this encounter
--- OUTSIDE RECORDS SUMMARY | 2025-01-03 22:52 | XMS_ITS | Encounter Summary ---
Author Organization [employer] Address [address] [facility] 7t [place] [address] Care Team Providers Care Manager Stone Name Role Phone Amna Urrutia Primary Care Provider [phone] Name, Everett ROSE Primary Care Provider [phone] Sahil Chen CNP Primary Care Provider [phone] Reason for Visit * Reason Onset Date Comments Med Refill 05/03/2023 Encounter Details Date Type Department Care Team (Late st Contact Info) Description 05/03/2023 Refill [facility] [address] [place] [address] Amna Urrutia FNP [address] [place] [address] Type 1 diabetes mellitus with hyperglycemia ([facility]/HCC) Social History Tobacco Use Types Packs/Day [...] Description 01/31/2025 1:00 PM EDT Office Visit [facility] MEDICINE 230 [place] [address] Sahil Chen CNP [address] [place] [address] documented as of this encounter Visit Diagnoses Diagnosis Type 1 diabetes mellitus with hyperglycemia (CMS/HCC) documented in this encounter Additional Health Concerns Assessment Noted Time PHQ-9 Depression Total Score: 16 023 8:52 AM EDT documented as of this encounter Care Teams Manager Stone Relationship Specialty Start Date End Date Amna Urrutia FNP [address] [place] [address] PCP - General Family Medicine 01/01/23 04/18/24 Name, MD Everett 230 [place] [address] PCP - General Internal Medicine 04/19/24 10/08/24 Sahil Chen CNP [address] [place] [address] PCP - General Family Medicine 10/09/24 Chris Pack Jr Jig GrinderCar Dumper Operator 09/04/24 documented as of this encounter
--- OUTSIDE RECORDS SUMMARY | 2025-01-03 22:52 | XMS_ITS | Encounter Summary ---
Author Organization [employer] Address [address] [facility] 7t [place] [address] Care Team Providers Care Real Estate Sales Manager Name Role Phone Sahil Chen CNP Primary Care Provider [phone] Encounter Details Date Type Department Care Team (Late st Contact Info) Description 01/02/2025 Telephone [facility] MEDICINE [address] [place], [place] [phone] Sahil Chen CNP 230 [place], [place] [phone] Social History Tobacco Use Types Packs/Day Years [...] encounter Miscellaneous Notes * Telephone Encounter - Savanna Juares RN - 01/02/2025 11:48 AM EDT Tc to pt to let them know letter request are not done over the phone or through [employer] and must bedone in person. Pt advised to come to medical records department in person to let them know of the request. Pt expressed understanding and no further questions or concerns at this time. * Telephone Encounter - Opal Pineda - 01/02/2025 10:54 AM EDT Tc from pt requesting letter via mail stating that pt are unable to perform he's work. Pt having a hard time finding a job due to he's condition Contact pt at [phone] documented in this encounter Plan of Treatment Upcoming Encounters Date Type Department Care Team (Late st Contact Info) Description 01/31/2025 1:00 PM EDT Office Visit [facility] MEDICINE [address] [place], [place] [phone] Sahil Chen, SERA [address] [place] [address] documented as of this encounter Visit Diagnoses Not on filedocumented in this encounter Additional Health Concerns Assessment Noted Time PHQ-9 Depression Total Score: 19 025 3:09 PM EDT documented as of this encounter Care Teams Real Estate Sales Manager Relationship Specialty Start Date End Date Sahil Chen CNP [address] [place] [address] PCP - General Family Medicine 10/09/24 Chris Pack Jr Library Technical AssistantFilter Plant Operator 09/04/24 documented as of this encounter
--- OUTSIDE RECORDS SUMMARY | 2025-01-03 22:52 | XMS_ITS | Encounter Summary ---
Author Organization [employer] Address [address] [facility] 7t [place] [address] Care Team Providers Care Assistant Program Manager Name Role Phone Amna Urrutia Primary Care Provider [phone] Name, Everett ROSE Primary Care Provider [phone] Sahil Chen CNP Primary Care Provider [phone] Reason for Visit * Reason Onset Date Comments Med Refill 05/01/2023 Encounter Details Date Type Department Care Team (Late st Contact Info) Description 05/01/2023 Refill [facility] [address] [place] [address] Lakshmi Womack FNP [address] [place] [address] Type 1 diabetes mellitus with hyperglycemia ([facility]) Social History Tobacco Use Types [...] 1:00 PM EDT Office Visit [facility] MEDICINE [address] [place] [address] Sahil Chen CNP 230 [place] [address] documented as of this encounter Visit Diagnoses Diagnosis Type 1 diabetes mellitus with hyperglycemia (CMS/HCC) documented in this encounter Additional Health Concerns Assessment Noted Time PHQ-9 Depression Total Score: 16 023 8:52 AM EDT documented as of this encounter Care Teams Assistant Program Manager Relationship Specialty Start Date End Date Amna Urrutia FNP [address] [place] [address] PCP - General Family Medicine 01/01/23 04/18/24 Name, MD Everett 230 [place] [address] PCP - General Internal Medicine 04/19/24 10/08/24 Sahil Chen CNP 230 [place] [address] PCP - General Family Medicine 10/09/24 Chris Pack Jr Traffic Workforce RepresentativeHeavy Mobile Equipment Operator 09/04/24 documented as of this encounter
--- OUTSIDE RECORDS SUMMARY | 2025-01-03 22:52 | XMS_ITS | Encounter Summary ---
Author Organization [employer] Address [address] [place] [address] 7 [place] [address] Care Team Providers Care Senior Telecommunications Consultant Name Role Phone Amna Urrutia Primary Care Provider [phone] Name, Everett ROSE Primary Care Provider [phone] Sahil Chen CNP Primary Care Provider [phone] Reason for Visit * Reason Onset Date Comments Med Refill 03/21/2023 Encounter Details Date Type Department Care Team (Late st Contact Info) Description 03/21/2023 Refill [facility] MEDICINE [address] [place] [address] [phone] Amna Urrutia FNP 230 [place], [place] [phone] Social History Tobacco Use Types Packs/Day Years [...] 01/31/2025 1:00 PM EDT Office Visit [facility] MEDICINE [address] [place] [address] [phone] Sahil Chen CNP 230 [place], [place] [phone] documented as of this encounter Visit Diagnoses Not on filedocumented in this encounter Additional Health Concerns Assessment Noted Time PHQ-9 Depression Total Score: 7 01/07/20 23 9:10 AM EDT documented as of this encounter Care Teams Senior Telecommunications Consultant Relationship Specialty Start Date End Date Amna Urrutia FNP 230 [place], [place] [phone] PCP - General Family Medicine 01/01/23 04/18/24 Everett Angulo MD 230 [place], [place] [phone] PCP - General Internal Medicine 04/19/24 10/08/24 Sahil Chen CNP 230 [place], [place] [phone] PCP - General Family Medicine 10/09/24 Chris Pack Jr Barrel RaiserOperating System Designer 09/04/24 documented as of this encounter
--- OUTSIDE RECORDS SUMMARY | 2025-01-03 22:52 | XMS_ITS | Encounter Summary ---
Author Organization [employer] Address [address] [place] [address] 7 [place] [address] Care Team Providers Care Smart Grid Engineer Name Role Phone Amna Urrutia Primary Care Provider [phone] Name, Everett ROSE Primary Care Provider [phone] Sahil Chen CNP Primary Care Provider [phone] Reason for Visit * Reason Onset Date Comments Med Refill 04/28/2023 Encounter Details Date Type Department Care Team (Late st Contact Info) Description 04/28/2023 Refill [facility] MEDICINE [address] [place] [address] [phone] Sandra Leal MD [address] [place] [address] [phone] Social History Tobacco Use Types Packs/Day Years [...] [facility] [address] [place] [address] [phone] Sahil Chen CNP 230 [place] [address] documented as of this encounter Visit Diagnoses Not on filedocumented in this encounter Additional Health Concerns Assessment Noted Time PHQ-9 Depression Total Score: 16 023 8:52 AM EDT documented as of this encounter Care Teams Smart Grid Engineer Relationship Specialty Start Date End Date Amna Urrutia FNP 230 [place], [place] [phone] PCP - General Family Medicine 01/01/23 04/18/24 Name, MD Everett 230 [place], [place] [phone] PCP - General Internal Medicine 04/19/24 10/08/24 Sahil Chen CNP 230 [place], [place] [phone] PCP - General Family Medicine 10/09/24 Chris Pack Jr Reconditioning AssociateCostume Shop Manager 09/04/24 documented as of this encounter
--- OUTSIDE RECORDS SUMMARY | 2025-01-03 22:52 | XMS_ITS | Encounter Summary ---
Author Organization [employer] Address [address] [facility] 7t [place] [address] Care Team Providers Care Oracle Application Consultant Name Role Phone Amna Urrutia Primary Care Provider [phone] Name, Everett ROSE Primary Care Provider [phone] Sahil Chen CNP Primary Care Provider [phone] Encounter Details Date Type Department Care Team ([facility] Contact Info) Description 01/17/2023 Orders Only [facility] MEDICINE [address] [place] [phone] Amna Urrutia FNP 230 [place] [address] Social History Tobacco Use Types Packs/Day Years [...] 01/31/2025 1:00 PM EDT Office Visit [facility] MEDICINE [address] [place] [address] Sahil Chen CNP 230 [place] [address] documented as of this encounter Visit Diagnoses Not on filedocumented in this encounter Additional Health Concerns Assessment Noted Time PHQ-9 Depression Total Score: 7 01/07/20 23 9:10 AM EDT documented as of this encounter Care Teams Oracle Application Consultant Relationship Specialty Start Date End Date Amna Urrutia FNP 230 [place] [address] PCP - General Family Medicine 01/01/23 04/18/24 Name, MD Everett [address] [place] [address] PCP - General Internal Medicine 04/19/24 10/08/24 Sahil Chen CNP 230 [place] [address] PCP - General Family Medicine 10/09/24 Chris Pack Jr Plant Science ProfessorTemplate Reproduction Technician 09/04/24 documented as of this encounter
--- OUTSIDE RECORDS SUMMARY | 2025-01-03 22:52 | XMS_ITS | Encounter Summary ---
Author Organization [employer] Address [address] [place] [address] [address] [place] [address] Care Team Providers Care Money Counter Name Role Phone Amna Urrutia Primary Care Provider [phone] Name, Everett ROSE Primary Care Provider [phone] Sahil Chen CNP Primary Care Provider [phone] Reason for Visit * Reason Onset Date Comments Med Refill 04/29/2023 Encounter Details Date Type Department Care Team (Late st Contact Info) Description 04/29/2023 Refill [facility] [address] [place] [address] [phone] Sandra Leal MD [address] [place] [address] [phone] Social History Tobacco Use Types Packs/Day Years [...] EDT Office Visit [facility] [address] [place] [address] [phone] Sahil Chen CNP [address] [place] [address] documented as of this encounter Visit Diagnoses Not on filedocumented in this encounter Additional Health Concerns Assessment Noted Time PHQ-9 Depression Total Score: 16 023 8:52 AM EDT documented as of this encounter Care Teams Money Counter Relationship Specialty Start Date End Date Amna Urrutia FNP [address] [place], [place] [phone] PCP - General Family Medicine 01/01/23 04/18/24 Name, MD Everett [address] [place], [place] [phone] PCP - General Internal Medicine 04/19/24 10/08/24 Sahil Chen CNP [address] [place], [place] [phone] PCP - General Family Medicine 10/09/24 Chris Pack Jr Mining And Quarrying Machinery RepairerInternal Medicine Veterinary Technician 09/04/24 documented as of this encounter
--- NOTE | 2025-01-04 00:45 | MHC.EDTECH ---
Pt rang brand. Went in and pt stated he wants to leave. Pt refusing all care. Charge nurse advised. Pt refused POC
--- NOTE | 2025-01-04 00:53 | PC.NURSE ---
Pt a&ox4, no signs of distress. Pt refusing all care Pt requesting to leave stating I'd rather go take care of my niece than be here for my health tile ditcher notified and aware Pt refusing vitals/POC
== END 2025-01-04 00:59 | disposition left against medical advice (07) ==
PROVIDERS: Emergency Provider Emergency Medicine
DX: R10.2 Pelvic and perineal pain (principal)
CPT/HCPCS: 99281; 99284

== ENCOUNTER 2025-01-17 15:29 | Outpatient (AMB) | payer MEDICAID, SELFPAY ==
--- NOTE | 2025-01-17 12:37 | A.OFFVIS_ITS ---
Intake Visit Reasons: T1DM Allergies diphenhydramine [From Benadryl] Allergy (Verified 01/03/25 22:39) Anaphylaxis haloperidol [From Haldol] Allergy (Verified 01/03/25 22:39) Difficulty Swallowing lorazepam [From Ativan] Adverse Reaction (Verified 01/03/25 22:39) Difficulty Breathing metoclopramide [From Reglan] Adverse Reaction (Verified 01/03/25 22:39) Anxiety HPI Comments Details: The patient is a 29 year old male with type 1 diabetes diagnosed at age 12. He is seen in f/u today. His initial consult was on 03/28/24 at which time he expressed an interest in going on an insulin pump. Basal insulin was changed to Tresiba at his initial visit due to low sugars and labile readings. He has a history of gastroparesis and Gates's esophagitis. He previously was followed by a GI specialist in [place] and has an initial appointments with GI at [facility] to establish care. Last appt in [facility] was 10/18/24 with an A1C of 8.1% Current diabetes medication tresiba 20 units NovoLog t.i.d. with meals 1 unit for every 35 over 135 in 0 1-15 carbohydrate ratio. Dexcom average glucose: [ ] 14 day continuous glucose monitor report reviewed Glucose Managment indicator [ ] % Days with CGM data [ ] % TIme in ranges: [ ] % very high (above 250) [ ] % high ?(181-250) [ ] % in range ?(70-180] [ ] % low (69-55) [ ] % ?very low (below 54) [ ] Standard Deviation Interpretation [ ] He carries a source of sugar with him at all times and is familiar with ketone testing. He lives with his cousin who is 63 who also has health issues. Has eyes checked yearly, he is due Has neuropathy:takes on gabapentin on occasion when he has symptoms abdominal was initially even by a neurologist, no feet symptoms No nephropathy 10/11/2024 eGFR>60 Denies history of CAD. No chest pain, dyspnea or symptoms of claudication Has had diabetes education in the past Diet/Carb counting:feels experienced in carb counting an dis accuraten Weight: [stable] [+] prior episodes of DKA. Had had one prior severe episodes of hypoglycemia requiring help or hospitalization. [facility] Medical History Abdominal pain Dental infection Colitis DKA (diabetic ketoacidosis) Hyperglycemia 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 type 1 Surgical History History of esophagogastroduodenoscopy (EGD) Family History Paternal Grandmother Breast cancer Family/Other Brain cancer Social History Household Members: Other Household Members Other:: cousin Housing: House Do you presently have visiting nurse or other home services: No Alcohol intake: current Alcohol intake frequency: holidays/special occasions on ly Patient Tobacco Use Status: Current everyday Tobacco user Tobacco use type: Cigarette Cigarette Packs Per Day: 0 Cigarettes Per Day: 0 Years Smoked: 10 Smoked in Last 30 Days: Yes e-Cigarette/Vaping Use: Never Used Second Hand Smoke Exposure: No Use of substances other than those prescribed or required for medical reasons: Yes Substance Use Type: Marijuana Advance Directives: No Advance Directives Information Provided: No Do you have a plan to hurt others: No Plan service: No Current occupational status: employed 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
--- NOTE | 2025-01-17 15:32 | MHC.OFFVIS ---
Vital Signs 01/17/25 15:34 Height 6 ft Weight 132 lb 15.02 oz BMI 18.0 BP 114/68 Blood Pressure Location Rt brachial Position Sitting Pulse 92 Pulse Source Pulse Oximeter Pulse Oximetry (%) 98 Oxygen Delivery Method Room Air Intake Visit Reasons: T1DM Intake Note: Patient presents today for a follow-up on Type 1 Diabetes Mellitus: Patient receives Dexcom G7 supplies through: [facility] Last Diabetic eye exam was on: DUE Last Podiatry exam was on: Does not see a Coiler Operator Most recent HbA1c: 9.1%, 01/17/2025 Random Glucose- 162 mg/dL, Today Hospital Receiving Clerk Required: No Accompanied by: Self / Same As Patient Allergies diphenhydramine [From Benadryl] Allergy (Verified 01/17/25 15:35) Anaphylaxis haloperidol [From Haldol] Allergy (Verified 01/17/25 15:35) Difficulty Swallowing lorazepam [From Ativan] Adverse Reaction (Verified 01/17/25 15:35) Difficulty Breathing metoclopramide [From Reglan] Adverse Reaction (Verified 01/17/25 15:35) Anxiety PFSH Medical History Abdominal pain Dental infection Colitis DKA (diabetic ketoacidosis) Hyperglycemia 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 type 1 Surgical History History of esophagogastroduodenoscopy (EGD) Family History Paternal Grandmother Breast cancer Family/Other Brain cancer Social History Household Members: Other Household Members Other:: cousin Housing: House Do you presently have visiting nurse or other home services: No Alcohol intake: current Alcohol intake frequency: holidays/special occasions only Patient Tobacco Use Status: Current everyday Tobacco user Tobacco use type: Cigarette Cigarette Packs Per Day: 0 Cigarettes Per Day: 0 Years Smoked: 10 e-Cigarette/Vaping Use: Never Used Second Hand Smoke Exposure: No Substance Use Type: Marijuana service: No Current occupational status: employed 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
[2025-01-17 15:34] VITALS: BP 114/68; PULSE 92; O2SAT 98; BMI 18.0
[2025-01-17 15:45] LABS: Glucose, Whole Blood 162 mg/dL (60-115)
== END 2025-01-17 16:15 | disposition home or self-care (01) ==
PROVIDERS: Visit Provider Nurse Practitioner Adult Health
DX: E10.9 Type 1 diabetes mellitus without complications (principal)

== ENCOUNTER → 2025-01-17 15:29 | Outpatient (BNVA) | payer MEDICAID, SELFPAY | PROVIDERS: PCP Internal Medicine Geriatric Medicine; Visit Provider Nurse Practitioner Adult Health | DX: E10.9 Type 1 diabetes mellitus without complications (principal); Z79.84 Long term (current) use of oral hypoglycemic drugs | CPT/HCPCS: 82947; 83036; 99212 ==

== ENCOUNTER 2025-01-31 18:41 | Emergency (ER) | payer MEDICAID, SELFPAY ==
[2025-01-31 18:51] VITALS: BP 150/80; PULSE 80; O2SAT 99
[2025-01-31 19:01] VITALS: BP 118/66; PULSE 75; RESP 18; TEMP 36.6; O2SAT 100; BMI 18.3
--- OUTSIDE RECORDS SUMMARY | 2025-01-31 19:26 | XMS_ITS | Encounter Summary ---
Author Organization [employer] Address [address] [place] [address] Care Team Providers Care Asset Protection Manager Name Role Phone Amna Urrutia Primary Care Provider [phone] Adele, Everett ROSE Primary Care Provider [phone] Sahil Chen CNP Primary Care Provider [phone] Reason for Visit * Reason Comments Med Refill Encounter Details Date Type Department Care Team ([facility] st Contact Info) Description 08/29/2023 Refill [facility] [address] [place], [place] [phone] Carlos Alberto Villavicencio MD [address] [place], [place] [phone] Type 1 diabetes mellitus with hyperglycemia (CMS/HCC) [...] documented as of this encounter Care Teams Asset Protection Manager Relationship Specialty Start Date End Date Amna Urrutia FNP [address] [place] [phone] PCP - General Family Medicine 01/01/23 04/18/24 Everett Angulo MD [address] [place] [phone] PCP - General Internal Medicine 04/19/24 10/08/24 Sahil Chen CNP [address] [place] [phone] PCP - General Family Medicine 10/09/24 Chris Pack Jr Broadband TechnicianExtension Work Instructor 09/04/24 documented as of this encounter
[2025-01-31 19:37] LABS: Glucose, Whole Blood 94 mg/dL (60-115)
--- NOTE | 2025-01-31 19:55 | ED_ITS ---
HPI - General Adult General Chief complaint: General Medical Stated complaint: pain in groin area, bgl was 40 now 125 Time Seen by Provider: 01/31/25 19:55 Source: patient and family Mode of arrival: ambulatory Limitations: no limitations History of Present Illness ED Provider: Dr. Bret Rhodes HPI narrative: 29-year-old male with a history of diabetes mellitus, gastroparesis, GERD, r ecurrent epididymitis who presents emergency department for evaluation of left testicular pain x2 days which is gotten progressively worse. Patient states the pain is similar to his previous episodes of epididymitis which she has had at least 2 times. Patient was seen in the emergency department on 08/01/2024 with similar presentation at that time had epididymitis confirmed by ultrasound. Patient states that he has had nausea but no vomiting. Patient has been taking Phenergan with only minimal relief of his nausea. He denied penile discharge. He states that he is sexually active with his spouse only. Related Data Home Medications ?Medication ?Instructions ?Recorded ?Confirmed pantoprazole 40 mg tablet,delayed 40 mg PO DAILY@0630 12/19/22 01/31/25 release (Protonix) promethazine 25 mg tablet 25 mg PO TID PRN nausea/vomiting 01/23/23 01/31/25 acetaminophen 500 mg tablet 500 mg PO Q6H PRN 04/09/24 01/31/25 Previous Rx's ?Medication ?Instructions ?Recorded albuterol sulfate 90 mcg/actuation 2 puff inhalation QID PRN 04/13/24 aerosol inhaler shortness of breath or wheezing #6.7 grams cyclobenzaprine 10 mg tablet 10 mg PO TID #10 tabs 05/07/24 acetone (urine) test (Ketone Urine #25 ea 06/19/24 Test strips) blood-glucose,education professional,cont #1 ea 06/19/24 (Dexcom G7 Senior Counsel Commercial) glucagon 3 mg/actuation nasal 3 mg intranasal ONCE PRN 06/19/24 spray (Baqsimi) unresponsive hypoglycemia 30 days #2 ea ondansetron 4 mg disintegrating 4 mg PO Q8H PRN nausea and 10/11/24 tablet vomiting #20 tabs blood-glucose sensor (Dexcom G7 #6 ea 01/17/25 Sensor device) insulin aspart U-100 100 unit/mL 1 sliding scale dose subcut 01/17/25 (3 mL) subcutaneous pen (Novolog TIDWMEAL 30 days #15 mL FlexPen U-100 Insulin aspart) insulin degludec 200 unit/mL (3 18 unit (0.09 mL) subcut DAILY 30 01/17/25 mL) subcutaneous pen (Tresiba days #6 mL FlexTouch U-200 insulin) pen needle, diabetic 32 gauge x #150 ea 01/17/25 blood sugar diagnostic (FreeStyle #100 ea 01/27/25 Lite Strips) blood-glucose meter (FreeStyle #1 ea 01/27/25 Lite Meter kit) lancets 28 gauge (FreeStyle #100 ea 01/27/25 Lancets) ketorolac 10 mg tablet 10 mg PO Q6H PRN pain 5 days #20 01/31/25 tabs levofloxacin 500 mg tablet 500 mg PO DAILY 10 days #10 tabs 01/31/25 morphine 15 mg immediate release 15 mg PO Q6H PRN pain #14 tabs 01/31/25 tablet ondansetron 4 mg disintegrating 4 mg PO Q6-8H PRN nausea and 01/31/25 tablet vomiting #14 tabs Allergies Allergy/AdvReac Type Severity Reaction Status Date / Time diphenhydramine Allergy Anaphylaxis Verified 01/31/25 19:40 [From Benadryl] haloperidol [From Haldol] Allergy Difficulty Verified 01/31/25 19:40 Swallowing lorazepam [From Ativan] AdvReac Difficulty Verified 01/31/25 19:40 Breathing metoclopramide [From Reglan] AdvReac Anxiety Verified 01/31/25 19:40 Review of Systems Review of Systems: Yes all other systems are reviewed and are negative [facility] Past Medical History [facility] Narrative: Social history: The patient vapes tobacco products. He occasionally drinks alcohol. He smokes marijuana daily. Medical History Abdominal pain Dental infection Colitis DKA (diabetic ketoacidosis) Hyperglycemia 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 type 1 Surgical History History of esophagogastroduodenoscopy (EGD) Family History Family History Paternal Grandmother Breast cancer Family/Other Brain cancer Social History Social History Household Members: Other Household Members Other:: cousin Housing: House Do you presently have visiting nurse or other home services: No Alcohol intake: current Alcohol intake frequency: holidays/special occasions only Patient Tobacco Use Status: Current everyday Tobacco user Tobacco use type: Cigarette Cigarette Packs Per Day: 0 Cigarettes Per Day: 0 Years Smoked: 10 Smoked in Last 30 Days: No e-Cigarette/Vaping Use: Never Used Second Hand Smoke Exposure: No Use of substances other than those prescribed or required for medical reasons: No Substance Use Type: Marijuana Advance Directives: No Advance Directives Information Provided: No Do you have a plan to hurt others: No Plan service: No Current occupational status: employed 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 Physical Exam ED Vital Signs: Vital Signs - 24 hr 01/31/25 19:01 01/31/25 19:01 Temperature 97.8 F 97.8 F Pulse Rate 75 75 Respiratory Rate 18 18 Blood Pressure 118/66 118/66 Pulse Oximetry 100 100 Oxygen Delivery Method Room Air Room Air BMI result Body Mass Index 18.3 Vital signs were normal Exam: General: Awake, alert in no distress Head: Normocephalic, atraumatic Chest: symmetric movement, nontender Heart: regular rate and rhythm, normal S1, S2 no murmurs or rubs Abdomen: soft, non-tender, nondistended, normal bowel sounds : Circumcised male penis, no scrotal erythema, patient has tenderness palpation in his left testicle over the epididymal area Extremities: no deformities, moves all extremities symmetrically Psych: Pleasant, cooperative Medical Decision Making Medical Decision Making MDM Narrative: 29-year-old male with a history of diabetes mellitus, gastroparesis, GERD, recurrent epididymitis who presents emergency department for evaluation of left testicular pain x2 days which has gotten progressively worse over the last 24 hours. Patient states the pain is similar to his previous episodes of epididymitis which and has had 2 episodes in the past. Patient was seen in the emergency department on 08/01/2024 with similar presentation at that time had epididymitis confirmed by ultrasound. Patient states that he has had nausea but no vomiting. He states the pain in his moderate to severe in intensity, constant, throbbing and sharp. Patient has been taking Phenergan with only minimal relief of his nausea. He denied taking any other pain medications. He denied penile discharge. He states that he is sexually active with his spouse only. Vital signs were normal. Exam is consistent with left-sided epididymitis. Differential diagnosis: ?Includes but is not limited to testicular torsion, epididymitis, STD Course: 20:25 Patient's presentation and physical findings are consistent with epididymitis. Patient was given ceftriaxone 500 mg with lidocaine IM, Toradol 30 mg IM, morphine 15 mg orally, Zofran 4 mg ODT and levofloxacin 500 mg IV. Patient was given prescriptions for levofloxacin 500 mg q.day times 10 days, Toradol 10 mg q.i.d. PRN pain, Zofran 4 mg ODT q.6 to 8 hours prn nausea/vomiting and morphine 15 mg q.6 hours PRN pain. He was given printed and verbal instructions and discharged home. Admission/Observation Consideration of admission/observation: Escalation of care including ad mission/observation considered (Yes) Lab Data MDM Lab Attestation statement: I reviewed the patient's lab results. Labs: Lab Results 01/31/25 Range/Units 19:33 POC Glucose 94 (60-115) mg/dL Independent Historian Clinical information obtained from an independent historian. History obtained from or confirmed by: Spouse Prescription Management I considered prescription management with: Pain Medication (Toradol, morphine), Antibiotic (Levofloxacin) and Other (Antiemetic: Zofran ODT) Chronic Conditions Patient?s care impacted by: Diabetes Discharge Plan Discharge Clinical Impression: Left epididymitis Patient Disposition: Home, Self-Care Instructions: Epididymitis (ED) Additional Instructions: Your exam is consistent with epididymitis. You received ceftriaxone 500 mg IM here in the emergency department. I am treating you with the antibiotic, levofloxacin 500 mg once a day for 10 days. Make sure you complete this entire prescription. Take Toradol 10 mg pills, 1 pill 4 times a day as needed for pain. Take morphine 15 mg pills, 1 pill every 6-8 hours as needed for pain not relieved by Toradol. Take Zofran ODT 4 mg pills, 1 pill dissolved in your mouth every 8 hours as needed for nausea and vomiting. Follow-up with our urologist for re-evaluation. The urology nurse will contact you in 2-3 days. If you do not hear from the urology nurse then contact the office to discuss follow-up. Please return to the emergency department if your symptoms get worse or if you develop any symptoms that are concerning to you. [facility] will be contacting you within 2 business?days after being discharged from the Emergency?Department.? During this?phone call, they will inform you when your follow up appointment will be scheduled. If you have not received a call from [facility] after 2 business?days, please call the?office at [phone]. Your prescriptions were sent to the [facility] in [place] Prescriptions: New levofloxacin 500 mg tablet 500 mg PO DAILY 10 Days Qty: 10 0RF morphine 15 mg tablet 15 mg PO Q6H PRN (Reason: pain) Qty: 14 0RF Rx Instructions: Partial Fill upon patient request. ketorolac 10 mg tablet 10 mg PO Q6H PRN (Reason: pain) 5 Days Qty: 20 0RF ondansetron 4 mg tablet,disintegrating 4 mg PO Q6-8H PRN (Reason: nausea and vomiting) Qty: 14 0RF No Action (DME) Dexcom G7 Senior Counsel Commercial [facility] See Rx Instructions .ROUTE .MEDSUPPLY Qty: 1 1RF Rx Instructions: As directed (DME) Ketone Urine Test Strip See Rx Instructions .ROUTE .MEDSUPPLY Qty: 25 3RF Rx Instructions: As directed prn glucose over 250, nausea/vomiting tid Baqsimi 3 mg/actuation spray,non-aerosol 3 mg intranasal ONCE MDD 6mg may repeat in 15 minutes PRN (Reason: unresponsive hypoglycemia) 30 Days Qty: 2 1RF (DME) FreeStyle Lite Strips Strip See Rx Instructions .Route Qty: 100 3RF Rx Instructions: As directed tests 3 X/day (DME) blood-glucose meter [FreeStyle Lite Meter] Kit See Rx Instructions .Route Qty: 1 0RF Rx Instructions: As directed (DME) lancets [FreeStyle Lancets] 28 gauge misc See Rx Instructions .Route Qty: 100 0RF Rx Instructions: As directed tests 3 X/day pantoprazole [Protonix] 40 mg tablet,delayed release (DR/EC) 40 mg PO DAILY@0630 promethazine 25 mg tablet 25 mg PO TID PRN (Reason: nausea/vomiting) ondansetron 4 mg tablet,disintegrating 4 mg PO Q8H PRN (Reason: nausea and vomiting) Qty: 20 0RF albuterol sulfate 90 mcg/actuation HFA aerosol inhaler 2 puff inhalation QID PRN (Reason: shortness of breath or wheezing) Qty: 6.7 0RF cyclobenzaprine 10 mg tablet 10 mg PO TID Qty: 10 0RF acetaminophen 500 mg tablet 500 mg PO Q6H PRN insulin aspart U-100 [Novolog FlexPen U-100 Insulin] 100 unit/mL (3 mL) insulin pen 1 sliding scale dose subcut TIDWMEAL MDD 44 units 30 Days Qty: 15 11RF Rx Instructions: 1 unit for every 35 points over 135 1 unit for every 15 carbohydrates insulin degludec [Tresiba FlexTouch U-200] 200 unit/mL (3 mL) insulin pen 18 unit subcut DAILY 30 Days Qty: 6 11RF (DME) Dexcom G7 Sensor Device See Rx Instructions .ROUTE .MEDSUPPLY Qty: 6 6RF Rx Instructions: As directed every 10 days (DME) pen needle, diabetic 32 gauge x 5/32 needle See Rx Instructions .ROUTE .MEDSUPPLY Qty: 150 6RF Rx Instructions: As directed qid Referrals: Matthew Virk MD [Physician] - (Left epididymitis, recurrent, treated with levofloxacin 500 mg q.day times 10 days) Print Language: Turkish
[2025-01-31] MEDS: levoFLOXacin 500 MG TABLET PO (20:36)
[2025-01-31] MEDS: Ondansetron ODT 4 MG TAB.RAPDIS TRANSLINGU (20:36)
[2025-01-31] MEDS: Morphine Sulfate Immed Release 15 MG TABLET PO (20:36)
[2025-01-31] MEDS: cefTRIAXone sodium 500 MG, Lidocaine HCl 1 % MPF 1 ML IM (20:38)
[2025-01-31] MEDS: Ketorolac Tromethamine 30 MG/ML VIAL IM (20:38)
[2025-01-31 21:19] VITALS: BP 109/72; PULSE 71; RESP 16; TEMP 36.9; O2SAT 97
[2025-02-01 12:07] LABS: CT PCR NOT DETECTED (Not Detect.); NG PCR NOT DETECTED (Not Detect.)
== END 2025-01-31 21:29 | disposition home or self-care (01) ==
PROVIDERS: Emergency Provider Emergency Medicine Emergency Medical Services
DX: N45.1 Epididymitis (principal); N50.812 Left testicular pain
CPT/HCPCS: 82947; 87491; 87591; 96372; 99284; J0696; J1885; J2003

== ENCOUNTER 2025-03-16 07:28 | Emergency (ER) | payer MEDICAID, SELFPAY ==
--- NOTE | ~2025-03-16 | CT_ITS ---
CLINICAL HISTORY: QUINONES CT head without contrast Comparison: CT/SR - CT HEAD/BRAIN WO IV CON - 07/16/24 11:09 EST Findings: No intra-axial mass, midline shift, hydrocephalus, or acute hemorrhage. No significant atrophy-like change or white matter disease. There is no sinus or mastoid fluid. The orbits are within normal limits. No skull fracture. IMPRESSION: 1. No acute intracranial findings. This document has been electronically signed by: Abraham Haque MD on 03/16/2025 09:38:04
--- NOTE | ~2025-03-16 | CT_ITS ---
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 No associated spondylolisthesis. Bony alignment of the lumbar vertebral bodies is anatomic. No acute fracture. No bony destructive changes seen. Central canal and neural foramina are patent. Prominent ingested contents within the stomach. Moderate stool throughout the visualized colon. IMPRESSION: No acute findings. 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 If the patient has persistent or worsening symptoms, consider MRI of the lumbar spine for further evaluation of the patient's back pain. This document has been electronically signed by: Abraham Haque MD on 03/16/2025 09:42:50
[2025-03-16 07:43] VITALS: BP 117/75; BP 134/88; PULSE 83; PULSE 84; RESP 18; TEMP 36.6; O2SAT 100; BMI 18.3
--- OUTSIDE RECORDS SUMMARY | 2025-03-16 07:52 | XMS_ITS | Encounter Summary ---
Author Organization [facility] Address [address] [place] [address] Phone Care Team Providers Care Senior Accountant Cpa Name Role Phone Santos Mueller MD Primary Care Provider [phone] Encounter Details Date Type Department Care Team (Late st Contact Info) Description 07/28/2023 Documentation Only [facility], [address] [place] [address] Santos Mueller MD [address] [place] [address] Social History Tobacco Use Types [...] on filedocumented in this encounter Care Teams Senior Accountant Cpa Relationship Specialty Start Date End Date Santos Mueller MD [address] [place] [address] PCP - General Emergency Medicine 07/28/23 documented as of this encounter
--- OUTSIDE RECORDS SUMMARY | 2025-03-16 07:52 | XMS_ITS | Clinical Summary ---
Author Organization [facility] Address [address] [place] [address] Phone Care Team Providers Care Strategic Communications Specialist Name Role Phone Sahil Chen CLUB ATTENDANT Primary Care Provider [phone] Social History Tobacco Use Types Packs/Day Years Used Date Smoking Tobacco: Never Assessed Sex and Gender Information Value Date Recorded Sex Assigned at Not on file Legal Sex Male 1:38 PM EDT Gender Identity Not on file Sexual Orientation Not on file Plan of Treatment Upcoming Encounters Date Type Department Care Team ([facility] Contact Info) Description 03/19/2025 3:00 PM EDT Consult Orthopedic Surgery - [place] [id number] [phone] Devan Alonso, DPM [address] [address] Health Maintenance Due Date Last Done Comments [...] PCV) 02/07/2015 Cholesterol Screening (Lipid Panel) 03/13/2024 HIV Screening 03/13/2024 Hepatitis C Screening 03/13/2024 Social Influencers of Health Screening 03/13/2024 COVID-19 Vaccine (1 - 2023-2 5 season) 2024 Depression Screening 08/21/2024 Diabetes: Annual Urine Albumin-Creatinine Ratio (uACR) 01/01/2025 Diabetes: Blood Sugar Contro l Test (HGBA1C) 01/01/2025 Influenza Vaccine (#1) 2025 HIB Vaccines Aged Out No longer [...] topic Insurance MEDICAID - [place] Care Teams Strategic Communications Specialist Relationship Specialty Start Date End Date Sahil Chen NP [address] [place] [id number] PCP - General Family Medicine 01/01/25
--- NOTE | 2025-03-16 07:58 | ED_ITS ---
HPI - Back Pain/Injury General Chief Complaint: Back Pain/Injury Stated Complaint: HIP/BACK PAIN, NO NEW INJURY PER EMS Time Seen by Provider: 03/16/25 07:57 Source: patient and EMS Mode of arrival: EMS Limitations: no limitations History of Present Illness ED Provider: Marleni Boone APRN HPI Narrative: 30 yo male with history of IDDM, gastroporesis, GERD, chronic lower back pain here with complaints of lower back pain and QUINONES. Patient states he has had chronic lower back pain for about 1 year after a fall. He has been seen by his primary care doctor reports that his outpatient x-rays were normal. He reports over the last week his lower back pain has been worsened. It radiates up his spine and over his entire back. There is no radiation into his lower legs. There is no associated numbness or tingling in the legs. There is no numbness in the groin. No bladder or bowel incontinence. There was no urinary symptoms. Patient reports he is here Toradol at home with continued symptoms. Patient reports difficulty with ambulation secondary to pain. Patient reports for the last week he has also had a frontal headache. Over the last 24 hours his headache has worsened. He reports there is associated photophobia and nausea. He denies vomiting or phonophobia. No fevers, chills or neck pain. Denies any history of migraines. Denies any recent falls or injuries. Related Data Home Medications ?Medication ?Instructions ?Recorded ?Confirmed pantoprazole 40 mg tablet,delayed 40 mg PO DAILY@0630 12/19/22 01/31/25 release (Protonix) promethazine 25 mg tablet 25 mg PO TID PRN nausea/vomi ting 01/23/23 01/31/25 acetaminophen 500 mg tablet 500 mg PO Q6H PRN 04/09/24 01/31/25 Previous Rx's ?Medication ?Instructions ?Recorded albuterol sulfate 90 mcg/actuation 2 puff inhalation Q ID PRN 04/13/24 aerosol inhaler shortness of breath or wheez ing #6.7 grams cyclobenzaprine 10 mg tablet 10 mg PO TID #10 tabs acetone (urine) test (Ketone Urine #25 ea 06/19/24 Test strips) blood-glucose,office cashier,cont #1 ea 06/19/24 (Dexcom G7 Mcat Tutor) glucagon 3 mg/actuation nasal 3 mg intranasal ONCE PRN 06/19/24 spray (Baqsimi) unresponsive hypoglycemia 30 days #2 ea ondansetron 4 mg disintegrating 4 mg PO Q8H PRN nausea and 10/11/24 tablet vomiting #20 tabs blood-glucose sensor (Dexcom G7 #6 ea 01/17/25 Sensor device) insulin aspart U-100 100 unit/mL 1 sliding scale dose subcut 01/17/25 (3 mL) subcutaneous pen (Novolog TIDWMEAL 30 days #15 mL FlexPen U-100 Insulin aspart) insulin degludec 200 unit/mL (3 18 unit (0.09 mL) subc ut DAILY 30 01/17/25 mL) subcutaneous pen ( #6 mL FlexTouch U-200 insulin) pen needle, diabetic 32 gauge x #150 ea 01/17/25 blood sugar diagnostic (FreeStyle #100 ea 01/27/25 Lite Strips) blood-glucose meter (FreeStyle #1 ea 01/27/25 Lite Meter kit) lancets 28 gauge (FreeStyle #100 ea 01/27/25 Lancets) ketorolac 10 mg tablet 10 mg PO Q6H PRN pain 5 days #20 01/31/25 tabs levofloxacin 500 mg tablet 500 mg PO DAILY 10 days #10 tabs 01/31/25 morphine 15 mg immediate release 15 mg PO Q6H PRN pain #14 tabs 01/31/25 tablet ondansetron 4 mg disintegrating 4 mg PO Q6-8H PRN naus ea and 01/31/25 tablet vomiting #14 tabs cyclobenzaprine 10 mg tablet 10 mg PO TID PRN muscle s pasm #12 03/16/25 tabs levofloxacin 500 mg tablet 500 mg PO DAILY 10 days #10 tabs 03/16/25 lidocaine 5 % topical patch 1 patch topical DAILY #15 ea 03/16/25 (Lidoderm) naproxen 500 mg tablet 500 mg PO BID PRN pain #30 t abs 03/16/25 Allergies Allergy/AdvReac Type Severity Reaction Status Date / Time diphenhydramine (From Allergy Anaphylaxis Verified 03/16/25 07:46 Benadryl) haloperidol (From Haldol) Allergy Difficulty Verified 03/16/25 07:46 Swallowing lorazepam (From Ativan) AdvReac Difficulty Verified 03/16/25 07:46 Breathing metoclopramide (From Reglan) AdvReac Anxiety Verified 03/16/25 07:46 Review of Systems 2 Review of Systems: Yes all other systems are reviewed and are negative Constitutional: Constitutional: Reports no additional constitutional complaints, Denies body ache(s), Denies chills, Denies fever(s), Reports headache(s) and Denies weakness Eyes: Eyes: Reports no additional eye complaints and Denies change in vision ENT: Reports system reviewed and no additional complaints, except as documented, Denies dizziness, Reports headache(s), Denies nasal congestion, Denies nasal discharge and Denies neck pain Cardiovascular: Cardiovascular: Reports no additional cardiovascular complaints, Denies chest pain, Denies leg edema and Denies dyspnea Respiratory: Respiratory: Reports no additional respiratory complaints, Denies cough and Denies dyspnea Gastrointestinal: Gastrointestinal: Reports no additional gastrointestinal complaints, Denies abdominal pain, Denies diarrhea, Denies nausea and Denies vomiting Genitourinary: Genitourinary: Denies urinary incontinence Musculoskeletal: Musculoskeletal: Reports no additional musculoskeletal complaints, Reports back pain, Denies arthralgias, Denies joint swelling, Denies neck pain, Denies numbness and Denies tingling Integumentary/Breasts: Skin/Breast: Reports system reviewed and no additional complaints, except as docu and Denies rash Neurologic: Reports system reviewed and no additional complaints, except as documented, Denies Abnormal speech present, Denies dizziness, Reports headache(s), Denies numbness, Denies tingling and Denies weakness [facility] Past Medical History Attestation statement: The following information was validated with the patient. Source: old records reviewed and nursing notes reviewed Medical History Abdominal pain Dental infection Colitis DKA (diabetic ketoacidosis) Hyperglycemia 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 type 1 Surgical History History of esophagogastroduodenoscopy (EGD) Family History Family History Paternal Grandmother Breast cancer Family/Other Brain cancer Social History Social History Household Members: Other Household Members Other:: cousin Housing: House Do you presently have visiting nurse or other home services: No Alcohol intake: current Alcohol intake frequency: holidays/special occasions only Patient Tobacco Use Status: Current everyday Tobacco user Tobacco use type: Cigarette Cigarette Packs Per Day: 0 Cigarettes Per Day: 0 Years Smoked: 10 e-Cigarette/Vaping Use: Never Used Second Hand Smoke Exposure: No Substance Use Type: Marijuana service: No Current occupational status: employed 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 Physical Exam 2 Vital Signs: Vital Signs: Last Vital Signs Temp 98.0 F 03/16/25 11:48 Pulse 86 03/16/25 11:48 Resp 18 03/16/25 11:48 BP 107/82 03/16/25 11:48 Pulse Ox 99 03/16/25 11:48 O2 Del Method Room Air 03/16/25 11:48 BMI result Body Mass Index 18.3 Const: General: cooperative, healthy appearing, comfortable and no acute distress Orientation/consciousness: patient oriented x3 Limitations: no limitations HEENT: Head: Yes normal to inspection and No Temporal artery tenderness present Ears: hearing grossly normal bilaterally and TM's normal bilaterally General nose exam: Normal external nose present Face and sinus: Yes normal facial exam Mouth: Normal oral and palatal mucosa present Throat: Yes posterior oropharynx normal, Yes tonsils normal and Yes uvula midline Eyes: General: appearance normal, both eyes and all related structures P upils: Equal, round and reactive pupils present Neck: Neck: Yes normal visual inspection, Yes full ROM, Yes no lymphadenopathy and Yes no meningeal signs Chest: Chest palpation & inspection: normal inspection of the chest Resp: Effort & Inspection: normal respiratory effort Auscultation: clear to auscultation bilaterally Cardio: Rate: regular rate Rhythm: regular rhythm Peripheral pulses: P eripheral pulses 2+ throughout GI: Inspection: Yes normal to inspection Palpation (GI): Soft to palpation and nontender Auscultation: normal bowel sounds : General: Yes no CVA tenderness Back/Spine/Pelvis: Other: Pain on palpation to the lumbar spine with no step-offs deformities. Palpable muscle spasms over the lumbar and thoracic soft tissue. Back: no CVA tenderness Thoracic/Lumbar Spine: thoracic and lumbar spine normal to inspection Skin: General skin exam: no rashes or lesions noted Neuro: General: patient oriented x3, moves all extremities, no meningeal signs, no focal motor deficits and normal sensation to monofilament Cranial nerves: Yes CN's II-XII intact bilaterally, Yes Equal, round and reactive pupils present, Yes Bilaterally intact EOM present, Yes Nystagmus not present, Yes Normal facial strength present and Yes Midline tongue present Cognition (Neuro): normal cognition Speech: No Abnormal speech present Motor exam (neuro): 5/5 motor strength present throughout Sensory Exam: Normal double simultaneous stimulation for sensation Extrem: General: Yes normal to inspection, Yes no calf tenderness and Yes normal gait Course Course Course Narrative: CT of the head shows no acute finding. CT of the lumbar spine shows degenerative changes with no acute fracture. Lab work is unremarkable. Patient reports feeling improved. Headache is resolved. He is tolerating p.o.. I will send him home with medications to help with analgesia. Reviewed worrisome signs and symptoms of when to return to the emergency room. Comfortable plan for discharge home Reevaluation(s) Reevaluation #1: On discharge patient reported bilateral testicle pain. No symptoms. Reports history of epididymitis in the past and this feels similar. Seen January for this and recommended to follow up with Urology as well as prescribed Levaquin. Patient reports that he did not follow up with Urology but his symptoms did improve with Levaquin. On exam patient has some tenderness at the base of both scrotums with no swelling or redness. No lymphadenopathy. May be referred pain secondary to back pain. However I would consider epididymitis. Patient will be placed on Levaquin with recommendations to follow up outpatient with Urology Medications Administered Discontinued Medications Generic Name Dose Route Start Last Admin Trade Name Johnq PRN Reason Stop Dose Admin Acetaminophen/Butalbital/Caffeine 1 tab 03/16/25 08:11 03/16/25 09:08 Butalb/Acetamin/Caff 50/325/40 Tablet PO 03/16/25 08:12 1 tab ONCE ONE Administration Cyclobenzaprine HCl 10 mg 03/16/25 08:11 03/16/25 09:08 Cyclobenzaprine Hcl 10 Mg Tablet PO 03/16/25 08:12 10 mg ONCE ONE Administration Sodium Chloride 1,000 mls @ 999 mls/hr 03/16/25 08:11 03/16/25 11:21 Ns IV 03/16/25 09:11 Infused .Q1H1M STA Infusion Ketorolac Tromethamine 15 mg 03/16/25 08:11 03/16/25 09:08 Ketorolac Tromethamine 15 Mg/Ml Vial IVPUSH 03/16/25 08:12 15 mg ONCE ONE Administration Ondansetron HCl 4 mg 03/16/25 08:12 03/16/25 09:08 Ondansetron Hcl 4 Mg/2 Ml Vial IVPUSH 03/16/25 08:13 4 mg ONCE ONE Administration Medical Decision Making Medical Decision Making MDM Narrative: 30 yo male with history of IDDM, gastroporesis, GERD, chronic lower back pain here with complaints of lower back pain and QUINONES. Patient states he has had chronic lower back pain for about 1 year after a fall. He has been seen by his primary care doctor reports that his outpatient x-rays were normal. He reports over the last week his lower back pain has been worsened. It radiates up his spine and over his entire back. There is no radiation into his lower legs. There is no associated numbness or tingling in the legs. There is no numbness in the groin. No bladder or bowel incontinence. There was no urinary symptoms. Patient reports he is here Toradol at home with continued symptoms. Patient reports difficulty with ambulation secondary to pain. Patient reports for the last week he has also had a frontal headache. Over the last 24 hours his headache has worsened. He reports there is associated photophobia and nausea. He denies vomiting or phonophobia. No fevers, chills or neck pain. Denies any history of migraines. Denies any recent falls or injuries. There is pain to palpation to the lumbar mid spine with no step-offs or deformities. There is palpable muscle spasms over the lumbar and thoracic soft tissue. Normal neurological exam with no overt deficits or red flag symptoms. Will obtain labs, UA, CT lumbar Patient reports headache. There is some photophobia. There is no neurological deficits or red flag symptoms. Will obtain CT head Will provide IVF, toradol, fiorcet, zofran Patient with multiple allergies making typical migraine cocktail limited Differential Diagnosis Differential Diagnoses: The differential diagnosis associated with the presentation includes Lumbar radiculopathy, lumbar strain, herniated disc Low suspicion for epidural abscess with no risk factors of same, no neurological deficits or red flag symptoms Low suspicion for ACS with no reports of chest pain, shortness of breath, diaphoresis or vomiting Low suspicion for pyelonephritis or renal colic with no CVA tenderness, urinary symptoms reported Low suspicion for malignancy with no red flag symptoms, more acute onset Low suspicion for cord compression, cauda equina with normal neurological exam and no red flag symptoms Migraine, ICH Low suspicion for meningitis, pseudotumor cerebri, temporal arterities Admission/Observation Consideration of admission/observation: Escalation of care including admission/observation considered Lab Data [facility] Lab Attestation statement: I reviewed the patient's lab results. 03/16/25 09:02 03/16/25 09:02 Labs: Lab Results 03/16/25 Range/Units 09:02 WBC 8.5 (4.8-10.8) X10*3/uL RBC 4.92 (4.60-5.80) X10*6/uL Hgb 12.9 L (14.0-18.0) g/dl Hct 39.0 L (42.0-52.0) % MCV 79.3 L (80.0-98.0) fL MCH 26.2 L (27.0-33.0) pg MCHC 33.1 (31.0-36.0) g/dl RDW 14.6 (11.0-16.0) % Plt Count 248 (160-400) X10*3/uL MPV 9.6 (9.4-12.4) fL Immature Gran % (Auto) 0.2 (0.0-0.4) % Neut % (Auto) 70.5 (45-73) % Lymph % (Auto) 22.2 (20-40) % Bonner % (Auto) 5.4 (2-11) % Eos % (Auto) 1.1 (0-4) % Baso % (Auto) 0.6 (0-2) % Lymph # (Auto) 1.9 (1.2-4.9) X10*3/uL Bonner # (Auto) 0.5 (0.1-1.2) X10*3/uL Eos # (Auto) 0.1 (0.0-0.4) X10*3/uL Baso # (Auto) 0.1 (0.0-0.2) X10*3/uL Abs Immat Gran (auto) 0.02 (0.00-0.03) X10*3/uL Absolute Neuts (auto) 6.0 (2.0-8.3) x10*3/uL Absolute Nucleated RBC 0.000 (0.0-0.012) X10*3/uL Nucleated RBC % (auto) 0.0 (0.0-0.2) /100WBC Sodium 140 (135-145) mmol/L Potassium 4.4 (3.3-5.1) mmol/L Chloride 106 (96-108) mmol/L Carbon Dioxide 23 (22-29) mmol/L Anion Gap 15 (12-20) BUN 19 H (9-16) mg/dL Creatinine 0.66 (0.5-1.4) mg/dL Estim Creat Clear Calc 143.0 Estimated GFR > 60 Random Glucose 204 H (60-115) mg/dL Calcium 9.3 (8.4-10.2) mg/dL Total Bilirubin 0.4 (0.0-1.0) mg/dL Direct Bilirubin 0.1 (0.0-0.5) mg/dL AST 25 (5-37) U/L ALT 16 (0-40) U/L Alkaline Phosphatase 74 (39-117) U/L Total Protein 7.3 (6.5-8.0) g/dL Albumin 4.3 (3.5-5.0) g/dL Independent Interpretation I performed an independent interpretation of an: CT Scan Interpretation: I independently viewed the CT scan agree with the radiology report Radiology Impression Discussion of test interpretation with radiology: I have reviewed the radiologist's reading. Radiologist Impression: [address] [address] [address] Scan Report Signed Patient: Bradford Torres MR#: [id number] : 1995 Acct:[id number] Age/Sex: 30 / M ADM Date: 03/16/25 Loc: .ED Attending Dr: Ordering Physician: Marleni Boone NP Date of Service: 03/16/25 Procedure(s): CT lumbar spine wo IV con Accession Number(s): [id number] cc: Marleni Boone NP; 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 No associated spondylolisthesis. Bony alignment of the lumbar vertebral bodies is anatomic. No acute fracture. No bony destructive changes seen. Central canal and neural foramina are patent. Prominent ingested contents within the stomach. Moderate stool throughout the visualized colon. IMPRESSION: No acute findings. 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 If the patient has persistent or worsening symptoms, consider MRI of the lumbar spine for further evaluation of the patient's back pain. This document has been electronically signed by: Abraham Haque MD on 03/16/2025 09:42:[address] [place] [address] [address] Scan Report Signed Patient: Bradford Torres MR#: [id number] : 1995 Acct:[id number] Age/Sex: 30 / M ADM Date: 03/16/25 Loc: HO.ED Attending Dr: Ordering Physician: Marleni Boone NP Date of Service: 03/16/25 Procedure(s): CT head/brain wo IV con Accession Number(s): [id number] cc: Marleni Boone NP; ChenDelkalyan~ Report Number: [id number]: Total DLP = 757.00 mGy-cm CLINICAL HISTORY: QUINONES CT head without contrast Comparison: CT/SR - CT HEAD/BRAIN WO IV CON - 07/16/24 11:09 EST Findings: No intra-axial mass, midline shift, hydrocephalus, or acute hemorrhage. No significant atrophy-like change or white matter disease. There is no sinus or mastoid fluid. The orbits are within normal limits. No skull fracture. IMPRESSION: 1. No acute intracranial findings. This document has been electronically signed by: Abraham Haque MD on 03/16/2025 09:38:04 Independent Historian Clinical information obtained from an independent historian. History obtained from or confirmed by: [facility] Prescription Management I considered prescription management with: Pain Medication Discharge Plan Discharge Clinical Impression: Back pain, Migraine, Acute epididymitis Patient Disposition: Home, Self-Care Instructions: Epididymitis (ED), Migraine Headache (ED), Back Pain (ED) Additional Instructions: [facility] will be contacting you within 2 business?days after being discharged from the Emergency?Department.? During this?phone call, they will inform you when your follow up appointment will be scheduled. If you have not received a call from [facility] after 2 business?days, please call the?office at [phone]. Your CAT scan of your head is normal. Your CT of her lumbar spine shows degenerative changes. Follow-up with your primary care doctor for any continued back pain as you may need an outpatient MRI. Apply heat or ice to the affected area No heavy lifting or bending Stay well hydrated Take the medications as prescribed. Prescriptions: New naproxen 500 mg tablet 500 mg PO BID PRN (Reason: pain) Qty: 30 0RF cyclobenzaprine 10 mg tablet 10 mg PO TID PRN (Reason: muscle spasm) Qty: 12 0RF lidocaine [Lidoderm] 5 % adhesive patch,medicated 1 patch topical DAILY Qty: 15 0RF Rx Instructions: leave on most painful area for up to 12 hrs levofloxacin 500 mg tablet 500 mg PO DAILY 10 Days Qty: 10 0RF No Action (DME) Dexcom G7 Mcat Tutor Misc See Rx Instructions .ROUTE .MEDSUPPLY Qty: 1 1RF Rx Instructions: As directed (DME) Ketone Urine Test Strip See Rx Instructions .ROUTE .MEDSUPPLY Qty: 25 3RF Rx Instructions: As directed prn glucose over 250, nausea/vomiting tid Baqsimi 3 mg/actuation spray,non-aerosol 3 mg intranasal ONCE MDD 6mg may repeat in 15 minutes PRN (Reason: unresponsive hypoglycemia) 30 Days Qty: 2 1RF (DME) FreeStyle Lite Strips Strip See Rx Instructions .Route Qty: 100 3RF Rx Instructions: As directed tests 3 X/day (DME) blood-glucose meter [FreeStyle Lite Meter] Kit See Rx Instructions .Route Qty: 1 0RF Rx Instructions: As directed (DME) lancets [FreeStyle Lancets] 28 gauge misc See Rx Instructions .Route Qty: 100 0RF Rx Instructions: As directed tests 3 X/day pantoprazole [Protonix] 40 mg tablet,delayed release (DR/EC) 40 mg PO DAILY@0630 promethazine 25 mg tablet 25 mg PO TID PRN (Reason: nausea/vomiting) ondansetron 4 mg tablet,disintegrating 4 mg PO Q8H PRN (Reason: nausea and vomiting) Qty: 20 0RF levofloxacin 500 mg tablet 500 mg PO DAILY 10 Days Qty: 10 0RF morphine 15 mg tablet 15 mg PO Q6H PRN (Reason: pain) Qty: 14 0RF Rx Instructions: Partial Fill upon patient request. ketorolac 10 mg tablet 10 mg PO Q6H PRN (Reason: pain) 5 Days Qty: 20 0RF ondansetron 4 mg tablet,disintegrating 4 mg PO Q6-8H PRN (Reason: nausea and vomiting) Qty: 14 0RF albuterol sulfate 90 mcg/actuation HFA aerosol inhaler 2 puff inhalation QID PRN (Reason: shortness of breath or wheezing) Qty: 6.7 0RF cyclobenzaprine 10 mg tablet 10 mg PO TID Qty: 10 0RF acetaminophen 500 mg tablet 500 mg PO Q6H PRN insulin aspart U-100 [Novolog FlexPen U-100 Insulin] 100 unit/mL (3 mL) insulin pen 1 sliding scale dose subcut TIDWMEAL MDD 44 units 30 Days Qty: 15 11RF Rx Instructions: 1 unit for every 35 points over 135 1 unit for every 15 carbohydrates insulin degludec [Tresiba FlexTouch U-200] 200 unit/mL (3 mL) insulin pen 18 unit subcut DAILY 30 Days Qty: 6 11RF (DME) Dexcom G7 Sensor Device See Rx Instructions .ROUTE .MEDSUPPLY Qty: 6 6RF Rx Instructions: As directed every 10 days (DME) pen needle, diabetic 32 gauge x 5/32 needle See Rx Instructions .ROUTE .MEDSUPPLY Qty: 150 6RF Rx Instructions: As directed qid Referrals: [facility] [Provider Group, Urology] - 10 days Sahil Chen NP [Primary Care Provider, Primary Care] - 1 week Referral Note: F/U ER visit Interventions: ED Discharge Assessment Last Done: 03/16/25 11:48 Discharge Date/Time: 03/16/25 11:49 Print Language: Icelandic
[2025-03-16 09:07] LABS: MANUAL DIFF FLAG NO
[2025-03-16 09:08] LABS: Hematocrit 39.0 % (42.0-52.0); Hemoglobin 12.9 g/dl (14.0-18.0); Imm Gran Abs Auto 0.02 X10*3/uL (0.00-0.03); Imm Gran Pct Auto 0.2 % (0.0-0.4); Lymphocytes Absolute Auto 1.9 X10*3/uL (1.2-4.9); Mean Corpuscular HGB Conc 33.1 g/dl (31.0-36.0); Mean Corpuscular Hemoglobin 26.2 pg (27.0-33.0); Mean Corpuscular Volume 79.3 fL (80.0-98.0); NRBC Abs Auto 0.000 X10*3/uL (0.0-0.012); NRBC Pct Auto 0.0 /100WBC (0.0-0.2); Platelet Count 248 X10*3/uL (160-400); Red Blood Count 4.92 X10*6/uL (4.60-5.80); White Blood Count 8.5 X10*3/uL (4.8-10.8)
[2025-03-16] MEDS: Butalb/Acetamin/Caff 50/325/40 TABLET 1 TAB PO (09:08)
[2025-03-16 09:11] VITALS: BP 121/71; PULSE 82; RESP 22; O2SAT 99
[2025-03-16 09:26] LABS: Alanine Aminotransferase 16 U/L (0-40); Albumin Level 4.3 g/dL (3.5-5.0); Alkaline Phosphatase 74 U/L (39-117); Anion Gap 15 (12-20); Aspartate Amino Transferase 25 U/L (5-37); Blood Urea Nitrogen 19 mg/dL (9-16); Calcium 9.3 mg/dL (8.4-10.2); Carbon Dioxide 23 mmol/L (22-29); Chloride 106 mmol/L (96-108); Creatinine Clr Calc Pharmacy 143.0; Estimated Glomerular Filt Rate > 60; Potassium 4.4 mmol/L (3.3-5.1); Sodium 140 mmol/L (135-145); Total Protein 7.3 g/dL (6.5-8.0)
[2025-03-16 10:00] VITALS: BP 107/82; PULSE 86; RESP 18; TEMP 36.7; O2SAT 99
[2025-03-16 11:48] VITALS: BP 107/82; PULSE 86; RESP 18; TEMP 36.7; O2SAT 99
== END 2025-03-16 11:49 | disposition home or self-care (01) ==
PROVIDERS: Nurse Practitioner Family; Emergency Provider Emergency Medicine
DX: M54.50 Low back pain, unspecified (principal); G43.909 Migraine, unspecified, not intractable, without status migrainosus; R11.0 Nausea; N45.1 Epididymitis; R20.0 Anesthesia of skin; E11.9 Type 2 diabetes mellitus without complications; Z79.4 Long term (current) use of insulin; Z79.899 Other long term (current) drug therapy
CPT/HCPCS: 36415; 70450; 72131; 80048; 80076; 85025; 96361; 96374; 96375; 99284; 99285; J1885; J2405

== ENCOUNTER → 2025-03-16 08:11 | Outpatient (BNV) | payer MEDICAID, SELFPAY | PROVIDERS: Emergency Provider Emergency Medicine; Visit Provider Radiology Diagnostic Radiology | DX: M43.06 Spondylolysis, lumbar region (principal); R51.9 Headache, unspecified | CPT/HCPCS: 70450; 72131 ==

== ENCOUNTER → 2025-04-18 18:46 | Outpatient (BNV) | payer MEDICAID, SELFPAY | PROVIDERS: Visit Provider Radiology Diagnostic Radiology | DX: M47.26 Other spondylosis with radiculopathy, lumbar region (principal) | CPT/HCPCS: 72148 ==

== ENCOUNTER 2025-04-18 18:47 | Outpatient (REF) | payer MEDICAID, SELFPAY ==
--- NOTE | ~2025-04-18 | MR_ITS ---
EXAMINATION: MR LUMBAR SPINE WITHOUT CONTRAST CLINICAL INFORMATION: Weakness, numbness and pain, both lower extremities. COMPARISON: Correlated to CT dated March 16, 2025 reported a unilateral, left-sided spondylolysis, L5 without listhesis. TECHNIQUE: MRI of the lumbar spine was obtained using routine sequences without contrast. FINDINGS: Last rib-bearing vertebra labeled T12. No gross bone marrow STIR signal abnormality. Sagittal bone marrow STIR signal in the left pars interarticularis of L5. No malalignment. Conus medullaris ends at inferior endplate of L1 with normal signal. T12-L1: No disc herniation. No neuroforamina stenosis. L1-2: No disc herniation. No neuroforamina stenosis. L2-3: No disc herniation. No neuroforamina stenosis. L3-4: Broad-based disc bulging. No central spinal canal stenosis. Facet joint hypertrophy. Mild bilateral neuroforamina narrowing. No compression upon neural elements. L4-5: Broad-based disc bulging. No central spinal canal stenosis. Mild left neuroforamina narrowing. L5-S1: Broad-based disc bulging. Left-sided spondylolysis pars interarticularis. Mild neuroforamina narrowing secondary to facet joint hypertrophy. No prevertebral compartment hematoma, mass or fluid collections. Abundant food contents in a prominent stomach. 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 Mild multilevel spondylosis L2-3 to L5-S1 resulting in mild left neuroforamina narrowing. Electronically signed by: Azeem Bullard MD 04/21/2025 12:27 PM EDT
--- OUTSIDE RECORDS SUMMARY | 2025-04-18 18:57 | XMS_ITS | Encounter Summary ---
Author Organization [employer] Address [address] [facility] [facility] [address] 7t [place] [address] Care Team Providers Care Manager Decision Support Name Role Phone Amna Urrutia Primary Care Provider [phone] Adele, Everett ROSE Primary Care Provider [phone] Sahil Chen CNP Primary Care Provider [phone] Reason for Visit * Reason Onset Date Comments Med Refill 07/28/2023 Encounter Details Date Type Department Care Team (Late st Contact Info) Description 07/28/2023 Refill [facility] MEDICINE 230 [place], [place] [phone] Denice Rubin MD 230 [place] [address] Social History Tobacco Use Types Packs/Day Years [...] as of this encounter Care Teams Manager Decision Support Relationship Specialty Start Date End Date Amna Urrutia FNP 230 [place] [address] PCP - General Family Medicine 01/01/23 04/18/24 Everett Angulo MD [address] [place] [address] PCP - General Internal Medicine 04/19/24 10/08/24 Sahil Chen CNP [address] [place] [address] PCP - General Family Medicine 10/09/24 Chris Pack Jr Armor Senior SergeantDock Manager 09/04/24 documented as of this encounter
--- OUTSIDE RECORDS SUMMARY | 2025-04-18 18:57 | XMS_ITS | Encounter Summary ---
Author Organization [employer] Address [address] [facility] 7t [place] [address] Care Team Providers Care Food Stylist Name Role Phone Amna Urrutia Primary Care Provider [phone] Name, Everett ROSE Primary Care Provider [phone] Sahil Chen CNP Primary Care Provider [phone] Reason for Visit * Reason Onset Date Comments Med Refill 03/21/2023 Encounter Details Date Type Department Care Team (Late st Contact Info) Description 03/21/2023 Refill [facility] MEDICINE 230 [place] [address] Amna Urrutia FNP 230 [place] [address] Social History Tobacco Use Types Packs/Day Years [...] documented as of this encounter Care Teams Food Stylist Relationship Specialty Start Date End Date Amna Urrutia FNP 230 [place] [address] PCP - General Family Medicine 01/01/23 04/18/24 Everett Angulo MD 230 [place], [place] [phone] PCP - General Internal Medicine 04/19/24 10/08/24 Sahil Chen CNP 230 [place] [address] PCP - General Family Medicine 10/09/24 Chris Pack Jr Distribution Accounting ClerkCard Cutter Helper 09/04/24 documented as of this encounter
--- OUTSIDE RECORDS SUMMARY | 2025-04-18 18:57 | XMS_ITS | Encounter Summary ---
Author Organization [employer] Address [address] [facility] 7t [place] [address] Care Team Providers Care Fishing Lure Assembler Name Role Phone Amna Urrutia Primary Care Provider [phone] Adele, Everett ROSE Primary Care Provider [phone] Sahil Chen CNP Primary Care Provider [phone] Reason for Visit * Reason Onset Date Comments Med Refill 05/01/2023 Encounter Details Date Type Department Care Team (Late st Contact Info) Description 05/01/2023 Refill [facility] MEDICINE 230 [place] [address] Sandra Leal MD 230 [place] [address] Social History Tobacco Use Types Packs/Day Years [...] documented as of this encounter Care Teams Fishing Lure Assembler Relationship Specialty Start Date End Date Amna Urrutia FNP 230 [place], [place] [phone] PCP - General Family Medicine 01/01/23 04/18/24 Everett Angulo MD 230 [place], [place] [phone] PCP - General Internal Medicine 04/19/24 10/08/24 Sahil Chen CNP 230 [place], [place] [phone] PCP - General Family Medicine 10/09/24 Chris Pack Jr Structural DrafterBrush Hand 09/04/24 documented as of this encounter
--- OUTSIDE RECORDS SUMMARY | 2025-04-18 18:57 | XMS_ITS | Encounter Summary ---
Author Organization [employer] Address [address] [facility] [address] 7t [place] [address] Care Team Providers Care Tractor Operator Helper Name Role Phone Amna Urrutia Primary Care Provider [phone] Name, Everett ROSE Primary Care Provider [phone] Sahil Chen CNP Primary Care Provider [phone] Reason for Visit * Reason Comments Med Refill Encounter Details Date Type Department Care Team ([facility] st Contact Info) Description 09/11/2023 Refill [facility] MEDICINE 230 [place], [place] [phone] Amna Urrutia FNP 230 [place] [address] Type 1 diabetes mellitus with hyperglycemia ([facility]) Social History Tobacco Use Types [...] documented as of this encounter Care Teams Tractor Operator Helper Relationship Specialty Start Date End Date Amna Urrutia FNP 230 [place] [address] PCP - General Family Medicine 01/01/23 04/18/24 Everett Angulo MD [address] [place] [address] PCP - General Internal Medicine 04/19/24 10/08/24 Sahil Chen CNP 230 [place] [address] PCP - General Family Medicine 10/09/24 Chris Pack Jr Electric Motors SalespersonSpecial Education Coordinator 09/04/24 documented as of this encounter
--- OUTSIDE RECORDS SUMMARY | 2025-04-18 18:57 | XMS_ITS | Encounter Summary ---
Author Organization [facility] Address [address] [place] [address] Phone Care Team Providers Care Storage Garage Attendant Name Role Phone Santos Mueller MD Primary Care Provider [phone] Encounter Details Date Type Department Care Team (Late st Contact Info) Description 08/05/2024 Documentation Only [facility], [address] [place] [address] Jessica Sprague [address] [place] [address] Social History Tobacco Use Types [...] on filedocumented in this encounter Care Teams Storage Garage Attendant Relationship Specialty Start Date End Date Santos Mueller MD 230 [place] [address] PCP - General Emergency Medicine 07/28/23 documented as of this encounter
--- OUTSIDE RECORDS SUMMARY | 2025-04-18 18:57 | XMS_ITS | Encounter Summary ---
Author Organization [employer] Address [address] [facility] [address] 7t [place] [address] Care Team Providers Care Granite Sandblaster Apprentice Name Role Phone Amna Urrutia Primary Care Provider [phone] Name, Everett ROSE Primary Care Provider [phone] Sahil Chen CNP Primary Care Provider [phone] Reason for Visit * Reason Comments Med Refill Encounter Details Date Type Department Care Team ([facility] st Contact Info) Description 09/08/2023 Refill [facility] MEDICINE 230 [place], [place] [phone] Amna Urrutia FNP 230 [place] [address] Type 1 diabetes mellitus with hyperglycemia ([facility]) Social History [...] documented as of this encounter Care Teams Granite Sandblaster Apprentice Relationship Specialty Start Date End Date Amna Urrutia FNP 230 [place] [address] PCP - General Family Medicine 01/01/23 04/18/24 Everett Angulo MD [address] [place] [address] PCP - General Internal Medicine 04/19/24 10/08/24 Sahil Chen CNP 230 [place] [address] PCP - General Family Medicine 10/09/24 Chris Pack Jr Certified Appliance Service TechnicianEditor News 09/04/24 documented as of this encounter
--- OUTSIDE RECORDS SUMMARY | 2025-04-18 18:57 | XMS_ITS | Encounter Summary ---
Author Organization [employer] Address [address] [facility] [address] 7t [place] [address] Care Team Providers Care Furnace Room Supervisor Name Role Phone Amna Urrutia Primary Care Provider [phone] Name, Everett ROSE Primary Care Provider [phone] Sahil Chen CNP Primary Care Provider [phone] Reason for Visit * Reason Comments Med Refill Encounter Details Date Type Department Care Team ([facility] st Contact Info) Description 05/30/2023 Refill [facility] MEDICINE 230 [place], [place] [phone] Amna Urrutia FNP 230 [place] [address] Social History Tobacco Use Types Packs/Day Years [...] documented as of this encounter Care Teams Furnace Room Supervisor Relationship Specialty Start Date End Date Amna Urrutia FNP 230 [place] [address] PCP - General Family Medicine 01/01/23 04/18/24 Everett Angulo MD [address] [place] [address] PCP - General Internal Medicine 04/19/24 10/08/24 Sahil Chen CNP 230 [place] [address] PCP - General Family Medicine 10/09/24 Chris Pack Jr Babbitt SpinnerMosaic Layer 09/04/24 documented as of this encounter
--- OUTSIDE RECORDS SUMMARY | 2025-04-18 18:57 | XMS_ITS | Encounter Summary ---
Author Organization [employer] Address 75 [facility] 7t [place] [address] Care Team Providers Care Deputy Sheriff Custody Name Role Phone Amna Urrutia Primary Care Provider [phone] Name, Everett ROSE Primary Care Provider [phone] Sahil Chen CNP Primary Care Provider [phone] Reason for Visit * Reason Onset Date Comments Appointment Request 09/08/2023 Encounter Details Date Type Department Care Team ([facility] Contact Info) Description 09/08/2023 Telephone [facility] MEDICINE 230 [place] [address] Amna Urrutia FNP 230 [place] [address] Appointment Request Social History Tobacco Use Types [...] to reschedule missed appt on 09/06 however typewriter tester was not able to offer apptdue to the provider did not have any availably documented in this encounter Plan of Treatment Not on file documented as of this encounter Visit Diagnoses Not on filedocumented in this encounter Additional Health Concerns Assessment Noted Time PHQ-9 Depression Total Score: 16 023 8:52 AM EDT documented as of this encounter Care Teams Deputy Sheriff Custody Relationship Specialty Start Date End Date Amna Urrutia FNP [address] [place] [address] PCP - General Family Medicine 01/01/23 04/18/24 Everett Angulo MD [address] [place] [address] PCP - General Internal Medicine 04/19/24 10/08/24 Sahil Chen CNP 230 [place] [address] PCP - General Family Medicine 10/09/24 Chris Pack Jr Auditor In ChargeArtificial Inseminator 09/04/24 documented as of this encounter
--- OUTSIDE RECORDS SUMMARY | 2025-04-18 18:57 | XMS_ITS | Encounter Summary ---
Author Organization [employer] Address [address] [facility] 7t [place] [address] Care Team Providers Care Cylinder Block Hole Reliner Name Role Phone Amna Urrutia Primary Care Provider [phone] Name, Everett ROSE Primary Care Provider [phone] Sahil Chen CNP Primary Care Provider [phone] Reason for Visit * Reason Onset Date Comments Med Refill 05/30/2023 Encounter Details Date Type Department Care Team (Late st Contact Info) Description 05/30/2023 Refill [facility] MEDICINE 230 [place] [address] Amna Urrutia FNP 230 [place] [address] Social History Tobacco Use Types Packs/Day Years [...] documented as of this encounter Care Teams Cylinder Block Hole Reliner Relationship Specialty Start Date End Date Amna Urrutia FNP 230 [place] [address] PCP - General Family Medicine 01/01/23 04/18/24 Everett Angulo MD [address] [place] [address] PCP - General Internal Medicine 04/19/24 10/08/24 Sahil Chen CNP [address] [place] [address] PCP - General Family Medicine 10/09/24 Chris Pack Jr Hand Alterations SeamstressSupervisor Hot Dip Tinning 09/04/24 documented as of this encounter
--- OUTSIDE RECORDS SUMMARY | 2025-04-18 18:57 | XMS_ITS | Encounter Summary ---
Author Organization [employer] Address [address] [facility] [address] 7t [place] [address] Care Team Providers Care Instrument Maker Apprentice Name Role Phone Amna Urrutia Primary Care Provider [phone] Adele, Everett ROSE Primary Care Provider [phone] Sahil Chen CNP Primary Care Provider [phone] Reason for Visit * Reason Onset Date Comments reaction to medication 10/24/2022 Encounter Details Date Type Department Care Team ([facility] st Contact Info) Description 10/24/2022 Telephone [facility] 230 [place] [address] Marycruz Oseguera DDS 230 [place] [address] reaction to medication Social History Tobacco Use [...] on filedocumented in this encounter Care Teams Instrument Maker Apprentice Relationship Specialty Start Date End Date Amna Urrutia FNP 230 [place] [address] PCP - General Family Medicine 01/01/23 04/18/24 Name, MD Everett 230 [place] [address] PCP - General Internal Medicine 04/19/24 10/08/24 Sahil Chen CNP 230 [place] [address] PCP - General Family Medicine 10/09/24 Chris Pack Jr Professor Of Legal StudiesBakery Machine Mechanic Supervisor 09/04/24 documented as of this encounter
--- OUTSIDE RECORDS SUMMARY | 2025-04-18 18:57 | XMS_ITS | Encounter Summary ---
Author Organization [employer] Address [address] [facility] 7t [place] [address] Care Team Providers Care Logistics Administrator Name Role Phone Amna Urrutia Primary Care Provider [phone] Adele, Everett ROSE Primary Care Provider [phone] Sahil Chen CNP Primary Care Provider [phone] Reason for Visit * Reason Onset Date Comments Med Refill 07/17/2023 Encounter Details Date Type Department Care Team (Late st Contact Info) Description 07/17/2023 Refill [facility] MEDICINE 230 [place] [address] Sandra Leal MD 230 [place] [address] Social History Tobacco Use Types Packs/Day Years [...] documented as of this encounter Care Teams Logistics Administrator Relationship Specialty Start Date End Date Amna Urrutia FNP 230 [place] [address] PCP - General Family Medicine 01/01/23 04/18/24 Everett Angulo MD [address] [place] [address] PCP - General Internal Medicine 04/19/24 10/08/24 Sahil Cehn CNP 230 [place] [address] PCP - General Family Medicine 10/09/24 Chris Pack Jr Tong SetterCertified Surgical Technologist 09/04/24 documented as of this encounter
--- OUTSIDE RECORDS SUMMARY | 2025-04-18 18:57 | XMS_ITS | Encounter Summary ---
Author Organization [employer] Address [address] [facility] [address] 7t [place] [address] Care Team Providers Care Temporary Receptionist Name Role Phone Amna Urrutia Primary Care Provider [phone] Adele, Everett ROSE Primary Care Provider [phone] Sahil Chen CNP Primary Care Provider [phone] Reason for Visit * Reason Comments Med Refill Encounter Details Date Type Department Care Team ([facility] st Contact Info) Description 08/29/2023 Refill [facility] MEDICINE 230 [place], [place] [phone] Carlos Alberto Villavicencio MD 230 [place], [place] [phone] Type 1 diabetes mellitus with hyperglycemia (CMS/HCC) [...] as of this encounter Care Teams Temporary Receptionist Relationship Specialty Start Date End Date Amna Urrutia FNP [address] [place] [address] PCP - General Family Medicine 01/01/23 04/18/24 Everett Angulo MD [address] [place] [address] PCP - General Internal Medicine 04/19/24 10/08/24 Sahil Chen CNP [address] [place] [address] PCP - General Family Medicine 10/09/24 Chris Pack Jr Car TracerReturns Clerk 09/04/24 documented as of this encounter
--- OUTSIDE RECORDS SUMMARY | 2025-04-18 18:57 | XMS_ITS | Encounter Summary ---
Author Organization [employer] Address [address] [facility] [address] 7t [place] [address] Care Team Providers Care 1St Grade Teacher Name Role Phone Amna Urrutia Primary Care Provider [phone] Adele, Everett ROSE Primary Care Provider [phone] Sahil Chen CNP Primary Care Provider [phone] Encounter Details Date Type Department Care Team (Late st Contact Info) Description 06/28/2023 Orders Only [facility] 230 [place], [place] [phone] Santos Mueller MD 230 [place] [address] Social History Tobacco Use Types Packs/Day Years [...] documented as of this encounter Care Teams 1St Grade Teacher Relationship Specialty Start Date End Date Amna Urrutia FNP 230 [place] [address] PCP - General Family Medicine 01/01/23 04/18/24 Everett Angulo MD 230 [place] [address] PCP - General Internal Medicine 04/19/24 10/08/24 Sahil Chen CNP 230 [place] [address] PCP - General Family Medicine 10/09/24 Chris Pack Jr Regional Geodetic AdvisorChristmas Bell Ringer 09/04/24 documented as of this encounter
--- OUTSIDE RECORDS SUMMARY | 2025-04-18 18:57 | XMS_ITS | Clinical Summary ---
Author Organization [facility], Address [address] [place] [address] [place] [address] Phone Care Team Providers Care Recycling Operator Name Role Phone Santos Mueller MD Primary Care Provider [phone] Allergies Active Allergy Reactions Criticality Noted Date [...] Diabetes: Hemoglobin A1C 05/28/2024 02/26/2024 Influenza Vaccine (#1) 2025 06/08/2016 Insurance Medicaid [place] Care Teams Recycling Operator Relationship Specialty Start Date End Date Santos Mueller MD [address] [place] [phone] PCP - General Emergency Medicine 07/28/23
--- OUTSIDE RECORDS SUMMARY | 2025-04-18 18:57 | XMS_ITS | Encounter Summary ---
Author Organization [employer] Address 75 [facility] 7t [place] [address] Care Team Providers Care Dresser Tender Name Role Phone Amna Urrutia Primary Care Provider [phone] Adele, Everett ROSE Primary Care Provider [phone] Sahil Chen CNP Primary Care Provider [phone] Reason for Visit * Reason Onset Date Comments Med Refill 07/15/2023 Encounter Details Date Type Department Care Team (Late st Contact Info) Description 07/15/[address] [facility] MEDICINE 230 [place] [address] Sandra Leal MD 230 [place] [address] Social History Tobacco Use Types Packs/Day Years [...] documented as of this encounter Care Teams Dresser Tender Relationship Specialty Start Date End Date Amna Urrutia FNP 230 [place] [address] PCP - General Family Medicine 01/01/23 04/18/24 Everett Angulo MD [address] [place] [address] PCP - General Internal Medicine 04/19/24 10/08/24 Sahil Chen CNP 230 [place] [address] PCP - General Family Medicine 10/09/24 Chris Pack Jr Web Content DeveloperCytometry Technologist 09/04/24 documented as of this encounter
--- OUTSIDE RECORDS SUMMARY | 2025-04-18 18:57 | XMS_ITS | Encounter Summary ---
Author Organization [employer] Address [address] [facility] [address] 7t [place] [address] Care Team Providers Care Physician Gynecologist Name Role Phone Amna Urrutia Primary Care Provider [phone] Name, Everett ROSE Primary Care Provider [phone] Sahil Chen CNP Primary Care Provider [phone] Reason for Visit * Reason Onset Date Comments Med Refill 07/28/2023 Encounter Details Date Type Department Care Team (Late st Contact Info) Description 07/28/2023 Refill [facility] MEDICINE 230 [place] [address] Amna Urrutia FNP 230 [place] [address] Social History Tobacco Use Types Packs/Day Years [...] documented as of this encounter Care Teams Physician Gynecologist Relationship Specialty Start Date End Date Amna Urrutia FNP 230 [place] [address] PCP - General Family Medicine 01/01/23 04/18/24 Everett Angulo MD [address] [place] [address] PCP - General Internal Medicine 04/19/24 10/08/24 Sahil Chen CNP [address] [place] [address] PCP - General Family Medicine 10/09/24 Chris Pack Jr Engineering Technician ParkingEnt Nurse 09/04/24 documented as of this encounter
--- OUTSIDE RECORDS SUMMARY | 2025-04-18 18:57 | XMS_ITS | Encounter Summary ---
Author Organization [employer] Address [address] [facility] [address] 7t [place] [address] Care Team Providers Care Headliner Installer Name Role Phone Amna Urrutia Primary Care Provider [phone] Name, Everett ROSE Primary Care Provider [phone] Sahil Chen CNP Primary Care Provider [phone] Reason for Visit * Reason Comments Med Refill Encounter Details Date Type Department Care Team ([facility] st Contact Info) Description 10/04/2023 Refill [facility] MEDICINE 230 [place], [place] [phone] Amna Urrutia FNP 230 [place] [address] Type 1 diabetes mellitus with hyperglycemia ([facility]) Social History Tobacco Use Types [...] documented as of this encounter Care Teams Headliner Installer Relationship Specialty Start Date End Date Amna Urrutia FNP [address] [place] [address] PCP - General Family Medicine 01/01/23 04/18/24 Everett Angulo MD [address] [place] [address] PCP - General Internal Medicine 04/19/24 10/08/24 Sahil Chen CNP 230 [place] [address] PCP - General Family Medicine 10/09/24 Chris Pack Jr Analysis DirectorDevelopment And Planning Engineer 09/04/24 documented as of this encounter
--- OUTSIDE RECORDS SUMMARY | 2025-04-18 18:57 | XMS_ITS | Clinical Summary ---
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 Continuous Blood Gluc Stuffer (FreeStyle Shiraz 2 Ranger) deviceIndications: Type 1 diabetes mellitus with hyperglycemia ([facility]) Use with sensor to monitor blood glucose levels 1 each 023 Active Acetaminophen Extra Strength 500 MG tablet 022 Active FREESTYLE LITE test strip Check sugar 3 times daily and prn 100 each 3 024 Active FreeStyle lancets 1 each by Other route 3 times daily. Use bid, dx type 2 diabetes 60 each 11 024 Active glucose 4 g chewable tablet [...] MOUTH DAILY AT BEDTIME 90 tablet 1 025 Active esomeprazole (NexIUM) [address] capsuleIndications [...] per package directions. 2 each 3 Active Tresiba FlexTouch 200 UNIT/ML injectionIndicatio ns:Type 1 diabetes mellitus with hyperglycemia (CMS/HCC) Inject 20 Units under the skin in the morning. 3 mL 3 025 Active melatonin 10 MG tabletIndications: Insomnia, unspecified type Take 1 tablet (10 mg) by mouth at bedtime. 90 tablet 025 Active bacitracin 500 UNIT/GM ointmentIndication s:Infection of skin of toes Apply topically 2 times daily. 14 g 025 Active promethazine (Phenergan) 25 MG tabletIndications: Type 1 diabetes mellitus with hyperglycemia (CMS/HCC) TAKE 1 TABLET BY MOUTH THREE TIMES DAILY NEEDED FOR NAUSEA AND VOMITING 15 tablet 1 025 Active Blood Glucose Monitoring Suppl (FreeStyle [place] Lite) w/Device kit 1 each by Other route every 6 (six) hours. 1 kit 025 Active insulin pen needle (BD Pen Needle Roxanna U/F) 32G x 4 mm miscIndications:Ty pe 1 diabetes mellitus with hyperglycemia (CMS/HCC) USE WITH INSULIN as INSTRUCTED 100 each 3 025 Active DULoxetine (Cymbalta) [address] capsuleIndications :Chronic back pain, unspecified back location, unspecified back pain laterality,Depress ion, unspecified depression type Take 1 capsule (30 mg) by mouth 2 times daily. Do not crush or chew. 60 capsule 11 04/09 Active cyclobenzaprine (Flexeril) 10 MG tabletIndications: Chronic back pain, unspecified back location, unspecified back pain laterality Take 1 tablet (10 mg) by mouth 3 times daily for 10 days. 30 tablet 025 04/19 Active mirtazapine (Remeron) 15 MG tabletIndications: Depression, unspecified depression type Take 1 tablet (15 mg) by mouth at bedtime. 30 tablet 025 05/09 Active insulin pen needle (BD Pen Needle Roxanna U/F) 32G x 4 mm miscIndications:Ty pe 1 diabetes mellitus with hyperglycemia ([facility]) USE WITH INSULIN as INSTRUCTED 100 each 3 025 03/24 Discontinued( Reorder (will not trigger notification to Pharmacy)) DULoxetine (Cymbalta) [address] capsuleIndications :Depression, unspecified depression type,Chronic back pain, unspecified back location, unspecified back pain laterality Take 1 capsule (30 mg) by mouth 2 times daily. Do not crush or chew. 60 capsule 11 04/09 Discontinued( Reorder (will not trigger notification to Pharmacy)) Active Problems Patient Care Coordination No te Formatting of this note migh t be different from the original. CHW called the patient back. Patient asked to be called at a later time as patient was at work. Problem Noted Date Diagnosed Date Chronic gastroesophageal reflux disease 01/31/20 25 Closed nondisplaced fracture of right great toe with routine healing 12/27/2024 Type 1 diabetes mellitus with hyperglycemia 11/19 Overview (11/28/2024): Follows with [facility] Endo LITO 09/2024 Has CGM in [...] cast use Gates's esophagus with dysplasia 01/09/2024 Overview (01/30/2025): Pt last f/u with GI 08/2024 at [facility], per provider note: Plan: - Labs as below - US ABd - Barium swallow - Avoid NSAIDs and smoking - Cont ppi Assessment & Plan (04/14/2023 6:18 PM EDT): [...] & Plan (06/05/2023 11:20 AM EDT): Assessment: Patient who [facility] experiencing homicidal ideation towards a specific person. He denied SI. Reason for visit was to assess symptoms and provide support. Patient may benefit from an inpatient psychiatric hospitalization to stabilize symptoms. At this time Bradford Torres meets criteria for Visit Diagnoses: Problem List Items Addressed This Visit Other Major depressive disorder, recurrent episode with anxious distress (CMS/HCC) Homicidal ideation Patient ready to address current needs Yes Strengths include ability to come into clinic to receive support and care PLAN: 1. Follow up with [facility]: Recommended for follow-up: TBD 2. Patient goal is stabilization of symptoms. 3. Behavioral Recommendations a. Patient was sectioned and taken to [facility] via ambulance History of concussion 05/31/2023 [...] services. PLAN: 1. Follow up with [facility]: Not recommended for follow-up 2. Patient goal [...] to schedule apt ---I discussed today w financial services specialist and request to try to schedule [...] f up until can start care w igniter capper Type 1 diabetes mellitus without complication Overview (03/19/2025): Follows with [facility]blanc 12/[address] Component Ref Range & Units (hover) 10:50 (03/19/25) 10:50 (03/19/25) 2 mo ago (12/27/24) 3 mo ago (11/27/24) 3 mo ago (11/27/24) 3 mo ago (11/27/24) 4 mo ago (11/13/24) Hemoglobin A1C 8.3 Abnormal tresiba 18 units NovoLog t.i.d. with meals 1 unit for every 35 over 135 in 0 1-15 carbohydrate ratio Considering insulin pump in near future Has ketone strips Has glucose tabs Has had 1 ED visit in past for DKA. Pt suffers from gastroparesis controlled with phenergan TID Assessment & Plan (03/21/2024 3:41 PM EDT): Has apt w Tax Professional next week to start care Assessment & Plan (04/14/2023 6:42 PM EDT): Assessment & Plan (01/01/2023 4:11 PM EDT): Reports diagnosed at 18 y/o Currently using basal-bolus insulin regimen: Basal: 20 units lantus nightly Bolus: carb ratio 15:1 (Novolog) Lab Results Component Value Date HGBA1C 11.0 (A) 12/30/2022 UA negative for ketones Reports he has sufficient insulin at this time Reviewed importance of BG monitoring and blood glucose control. ED precautions. DME request for CGM Referral to Endo placed Gastroparesis Assessment & Plan (01/01/2023 4:06 PM EDT): Reports diagnosed approx 2018 in [place] Referral to establish with GI provider placed Reports started on gabapentin 300mg BID by previous PCP and does provide some relief of symptoms. Renewal of promethazine 25mg sent PRN. Reviewed [...] organization. Date Type Department Care Team Description 04/09/2025 9:00 AM EDT Office Visit [facility] [address] [place] [phone] Sahil Chen CNP Chronic back pain, unspecified back location, unspecified back pain laterality (Primary Dx); Depression, unspecified depression type 04/09/2025 Travel 04/08/2025 Telephone [facility] [address] [place] [phone] Sahil Chen CNP Chart Prep 04/03/2025 Telephone [facility] [address] [place] [phone] Sahil Chen CNP 04/02/[address] [address] Sahil Chen CNP 04/01/2025 Telephone [facility] [address] [place] [phone] Sahil Chen CNP Medication Question 03/24/2025 Orders Only [facility] [address] [place], [place] [phone] Sahil Chen CNP Type 1 diabetes mellitus with hyperglycemia ([facility]/HCC) 03/19/2025 10:00 AM EDT Office Visit [facility] [address] [place] [phone] Sahil Chen CNP Depression, unspecified depression type (Primary Dx); Chronic back pain, unspecified back location, unspecified back pain laterality; Type 1 diabetes mellitus without complication ([facility]) 03/19/2025 Travel 03/17/2025 Telephone [facility] [address] [place] [phone] Sahil Chen CNP Nurse Triage 03/16/2025 Orders Only GENERIC EXTERNAL DATA DEPARTMENT Provider, Generic External Data 02/17/2025 Refill [facility] [address] [place] [address] Sahil Cehn CNP Type 1 diabetes mellitus with hyperglycemia ([facility]) 01/31/2025 Orders Only GENERIC EXTERNAL DATA DEPARTMENT Provider, Generic External Data 01/30/[address] [address] Regina Mathis [place] CHARTPREP 01/27/[address] [address] Sahil Chen CNP NTTS Outreach (Nurse Telephone Triage Service Patient Call Report - NTTS Outreach) 01/25/2025 Telephone [facility] [address] [place] [address] Carolina Barbosa MD 01/24/2025 Refill [facility] [address] [place] [address] Sahil Chen CNP Type 1 diabetes mellitus with hyperglycemia ([facility]) 01/17/2025 Orders Only GENERIC EXTERNAL DATA DEPARTMENT Provider, Generic External Data from Last 3 Months Immunizations Immunization Administration [...] Answer Date Recorded Patient Health Questionnaire-9 Score 15 03/24/2025 Patient Health Questionnaire-9 Score 15 03/24/2025 Last PHQ-9: Questionnaire Data Not on file 0 03/24/2025 Housing Stability Answer Date Recorded What is [...] Date Recorded Patient Health Questionnaire-2 Score 3 03/24/2025 Internet Access Answer Date Recorded Internet Access [...] Sign Reading Time Taken Comments Blood Pressure 130/80 04/09/2025 9:17 AM EDT Pulse 70 04/09/2025 9:17 AM EDT Temperature 36.6 C (97.9 F) 04/09/2025 9:17 AM EDT Respiratory Rate 14 04/09/2025 9:17 AM EDT Oxygen Saturation 98% 03/19/2025 10:10 AM EDT Inhaled Oxygen Concentration - - Weight 62.8 kg (138 lb 6.4 oz) 04/09/2025 9:17 A M EDT Height 182.9 cm (6') 04/09/2025 9:17 AM EDT Body Mass Index 18.77 04/09/2025 9:17 AM EDT Plan of Treatment Health Maintenance Due Date Last Done Comments Dental Oral Exam 1996 Dental Prophylaxis 1996 Dental X-Ray: Full Mouth 1996 Family Planning (PISQ) 02/07/2011 HPV Vaccines (1 - Male 3-dose series) 02/07/2011 Diabetes: Urine Protein Screening 02/07/2015 Hepatitis B Vaccines (1 of 3 - 19+ 3-dose series) 02/07/2015 Pneumococcal Vaccine: Pediatrics (0 to 5 Years) and At-Risk Patients (6 to 49) Years (1 of 2 - PCV) 02/07/2015 Dental X-Ray: Bitewings 10/19/2023 10/18/2022 COVID-19 Vaccine ( - season) 2024 Lipid Panel 11/14/2024 11/15/2023 Influenza Vaccine (#1) 2025 06/08/2016 Eye Exam 05/21/2025 05/21/2024, 10/0 08/2023, 05/21/2024, Additional history exists Diabetes: Hemoglobin A1C 06/19/2025 025, 11/27/2024, 11/13/2024, Additional history exists Depression Monitoring 09/24/2025 03/24/2025, 025 SDOH Screening 11/27/2025 11/27/2024 Diabetes: Foot Exam 12/27/2025 12/27/2024, 12/27/2024, 12/27/2024, Additional history exists Disability Screening 12/27/2025 12/27/2024 Alcohol/Substance Use Screening 03/19/2026 03/19/2025 Tobacco Screening 03/19/2026 03/19/2025 DTaP/Tdap/Td Vaccines (2 - Td or Tdap) [...] Diagnosis Comments POCT GLYCATED HEMOGLOBIN, TOTAL Routine 03/19/2025 10:50 AM EDT Type 1 diabetes mellitus without complication (CMS/HCC) POCT GLUCOSE Routine 03/19/2025 10:50 AM EDT Type 1 diabetes mellitus without complication (CMS/HCC) CT LUMBAR SPINE WO CONTRAST Routine 03/16/2025 9:[address] HEAD WO CONTRAST Routine 03/16/2025 9 :38 AM EDT BASIC METABOLIC PANEL Routine 03/16/2025 9:02 AM EDT HEPATIC FUNCTION PANEL Routine 03/16/2025 9:02 AM EDT CBC WITH AUTO DIFFERENTIAL Routine 03/16/2025 9:02 AM EDT CHLAMYDIA/N. GONORRHOEAE RNA, TMA, UROGENITAL Routine 01/31/2025 8:18 PM EDT GLUCOSE, WHOLE BLOOD Routine 01/31/2025 7:33 PM EDT GLUCOSE, WHOLE BLOOD Routine 01/17/2025 3:41 PM EDT HEPATITIS C AB W/REFL TO HCV RNA, [...] Maintenance Results * (ABNORMAL) POCT HGB A1C (03/19/2025 10:50 AM EDT) Pathologist [facility] Hemoglobin A1C 8.3(A) 4.0 - 5.7 % QC Media Lot # [id number] Lot# Expiration Date Blood 03/19/2025 10:5 0 AM EDT [facility] POINT OF CARE TEST ENTER/ EDIT ORDERABLES Final Result * POCT Glucose (03/19/2025 10:50 AM EDT) Pathologist [facility] Glucose Blood, POC 140 60 - 200 mg/dL QC Media Lot # [id number] Lot# Expiration Date 103,025 Blood Capillary blood specimen / Unknown 03/19/2025 10:50 AM EDT [facility] POINT OF CARE TEST ENTER/ EDIT ORDERABLES Final Result * CT Lumbar Spine w/o Contrast (03/16/2025 9:42 AM EDT) Anatomical Region Laterality Modality Spine, L-spine Computed Tomogra phy 03/16/2025 9:42 AM EDT Narrative 03/16/2025 9:43 AM EDT [address] [address] [address] Scan Report Signed Patient: Bradford Torres MR#: [id number] : 1995 Acct:[id number] Age/Sex: 30 / M ADM Date: 03/16/25 Loc: HO.ED Attending Dr: Ordering Physician: Marleni Boone NP Date of Service: 03/16/25 Procedure(s): CT lumbar spine wo IV con Accession Number(s): [id number] cc: Marleni Boone NP; [facility] Report Number: [id number]: Total DLP = 361.00 mGy-cm 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 No associated spondylolisthesis. Bony alignment of the lumbar vertebral bodies is anatomic. No acute fracture. No bony destructive changes seen. Central canal and neural foramina are patent. Prominent ingested contents within the stomach. Moderate stool throughout the visualized colon. IMPRESSION: No acute findings. 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 If the patient has persistent or worsening symptoms, consider MRI of the lumbar spine for further evaluation of the patient's back pain. This document has been electronically signed by: Abraham Haque MD on 03/16/2025 09:42:50 Dictated By: Abraham Haque MD Signed By: <Electronically signed by Abraham Haque MD in OV> 03/16/2543 DD/ 1 TD/TT: 03/16/25941 Atmospheric Technician: Procedure Note Donotuseinterpreter, Image - 03/16/[address] [address] [address] Scan Report Signed Patient: Bradford Torres JMR#: [id number] : 1995Acct:[id number] Age/Sex: 30 / MADM Date: 03/16/25 Loc: HO.ED Attending Dr: Ordering Physician: Marleni Boone NP Date of Service: 03/16/25 Procedure(s): CT lumbar spine wo IV con Accession Number(s): [id number] cc: Marleni Boone NP; Sahil Chen Report Number: [id number]: Total DLP = 361.00 mGy-cm 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 No associated spondylolisthesis. Bony alignment of the lumbar vertebral bodies is anatomic. No acute fracture. No bony destructive changes seen. Central canal and neural foramina are patent. Prominent ingested contents within the stomach. Moderate stool throughout the visualized colon. IMPRESSION: No acute findings. 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 If the patient has persistent or worsening symptoms, consider MRI of the lumbar spine for further evaluation of the patient's back pain. This document has been electronically signed by: Abraham Haque MD on 03/16/2025 09:42:50 Dictated By: Abraham Haque MD Signed By: <Electronically signed by Abraham Haque MD in OV> 03/16/25 0943 DD/ 1 TD/TT: 03/16/25941 Atmospheric Technician: [facility] External Provider IMG CT PROCEDURES Final Result * CT Head w/o Contrast (03/16/2025 9:38 AM EDT) Anatomical Region Laterality Modality Head, Neck Computed Tomogra phy 03/16/2025 9:38 AM EDT Narrative 03/16/2025 9:40 AM EDT [place] [address] CT Scan Report Signed Patient: Bradford Torres MR#: [id number] : 1995 Acct:[id number] Age/Sex: 30 / M ADM Date: 03/16/25 Loc: HO.ED Attending Dr: Ordering Physician: Marleni Boone NP Date of Service: 03/16/25 Procedure(s): CT head/brain wo IV con Accession Number(s): [id number] cc: Marleni Boone NP; Sahil Chen Report Number: [id number]: Total DLP = 757.00 mGy-cm CLINICAL HISTORY: QUINONES CT head without contrast Comparison: CT/SR - CT HEAD/BRAIN WO IV CON - 07/16/24 11:09 EST Findings: No intra-axial mass, midline shift, hydrocephalus, or acute hemorrhage. No significant atrophy-like change or white matter disease. There is no sinus or mastoid fluid. The orbits are within normal limits. No skull fracture. IMPRESSION: 1. No acute intracranial findings. This document has been electronically signed by: Abraham Haque MD on 03/16/2025 09:38:04 Dictated By: Abraham Haque MD Signed By: <Electronically signed by Abraham Haque MD in OV> 03/16/25938 DD/ 7 TD/TT: 03/16/25937 Atmospheric Technician: Procedure Note Donotuseinterpreter, Image - 03/16/[address] [place] [address] [address] Scan Report Signed Patient: Bradford Torres R#: [id number] : 1995Acct:[id number] Age/Sex: 30 / MADM Date: 03/16/25 Loc: HO.ED Attending Dr: Ordering Physician: Marleni Boone NP Date of Service: 03/16/25 Procedure(s): CT head/brain wo IV con Accession Number(s): [id number] cc: Marleni Boone NP; Sahil Chen Report Number: [id number]: Total DLP = 757.00 mGy-cm CLINICAL HISTORY: QUINONES CT head without contrast Comparison: CT/SR - CT HEAD/BRAIN WO IV CON - 07/16/24 11:09 EST Findings: No intra-axial mass, midline shift, hydrocephalus, or acute hemorrhage. No significant atrophy-like change or white matter disease. There is no sinus or mastoid fluid. The orbits are within normal limits. No skull fracture. IMPRESSION: 1. No acute intracranial findings. This document has been electronically signed by: Abraham Haque MD on 03/16/2025 09:38:04 Dictated By: Abraham Haque MD Signed By: <Electronically signed by Abraham Haque MD in OV> 03/16/25938 DD/ 7 TD/TT: 03/16/25937 Atmospheric Technician: [facility] External Provider IMG CT PROCEDURES Final Result * (ABNORMAL) CBC auto differential (03/16/2025 9:02 AM EDT) White Blood Count 8.5 4.8 - 10.8 X10*3/uL [facility] Red Blood Count 4.92 4.60 - 5.80 X10*6/uL [facility] Hemoglobin 12.9(L) 14.0 - 18.0 g/dl [facility] Hematocrit 39.0(L) 42.0 - 52.0 % [facility] Mean Corpuscular Volume 79.3(L) 80.0 - 98.0 fL [facility] Mean Corpuscular Hemoglobin 26.2(L) 27.0 - 33.0 pg [facility] Mean Corpuscular HGB Conc 33.1 31.0 - 36.0 g/dl [facility] Red Cell Distribution Width 14.6 11.0 - 16.0 % [facility] Platelet Count 248 160 - 400 X10*3/uL [facility] Mean Platelet Volume 9.6 9.4 - 12.4 fL [facility] Neutrophils Percent Auto 70.5 45 - 73 % [facility] Imm Gran Pct Auto 0.2 0.0 - 0.4 % [facility] Lymphocytes Percent Auto 22.2 20 - 40 % [facility] Monocytes Percent Auto 5.4 2 - 11 % [facility] Eosinophils Percent Auto 1.1 0 - 4 % [facility] Basophils Percent Auto 0.6 0 - 2 % [facility] NRBC Pct Auto 0.0 0.0 - 0.2 /100WBC [facility] Neutrophils Absolute Auto 6.0 2.0 - 8.3 x10*3/uL [facility] Imm Gran Abs Auto 0.02 0.00 - 0.03 X10*3/uL [facility] Lymphocytes Absolute Auto 1.9 1.2 - 4.9 X10*3/uL [facility] Monocytes Absolute Auto 0.5 0.1 - 1.2 X10*3/uL [facility] Eosinophils Absolute Auto 0.1 0.0 - 0.4 X10*3/uL [facility] Basophils Absolute Auto 0.1 0.0 - 0.2 X10*3/uL [facility] NRBC Abs Auto 0.000 0.0 - 0.012 X10*3/uL [facility] 03/16/2025 9:02 AM EDT 03/16/2025 9:05 AM EDT us Generic External Data Provider LAB BLOOD ORDERAB LES Final Result [facility] [address] [place] [phone] * Hepatic Function Panel (03/16/2025 9:02 AM EDT) Bilirubin, Total 0.4 0.0 - 1.0 mg/dL [facility] Bilirubin, Direct 0.1 0.0 - 0.5 mg/dL [facility] Aspartate Amino Transferase 25 5 - 37 U/L [facility] Comment:Slight Hemolysis.Int erpret result with caution. Alanine Aminotransferase 16 0 - 40 U/L [facility] Total Protein 7.3 6.5 - 8.0 g/dL [facility] Albumin Level 4.3 3.5 - 5.0 g/dL [facility] Alkaline Phosphatase 74 39 - 117 U/L [facility] 03/16/2025 9:02 AM EDT 03/16/2025 9:05 AM EDT us Generic External Data Provider LAB BLOOD ORDERAB LES Final Result Performing Organization Address [facility]/ZIP Co de Phone Number [facility] [address] [place] [address] [phone] * (ABNORMAL) Basic Metabolic Panel (03/16/2025 9:02 AM EDT) Sodium 140 135 - 145 mmol/L [facility] Potassium 4.4 3.3 - 5.1 mmol/L [facility] Comment:Slight Hemolysis.Int erpret result with caution. Chloride 106 96 - 108 mmol/L [facility] Carbon Dioxide 23 22 - 29 mmol/L [facility] Anion Gap 15 12 - 20 [facility] Urea Nitrogen (BUN) 19(H) 9 - 16 mg/dL [facility] Creatinine, Serum 0.66 0.5 - 1.4 mg/dL [facility] Creatinine Clr Calc Pharmacy 143.0 [facility] Comment:eGFR (calculated fro m the MDRD study equation) and eCrCl(calculated from the Cockcroft-Gault equation) are based ondifferent parameters and may not yield comparable results.If eCrCl result is absurd, please check patient'sheight/weight. Estimated Glomerular Filt Rate >60 [facility] Comment:Chronic Kidney Disea se: Estimated GFR < 60 mL/min/[id number] Kidney Disease: Estimated GFR < 15 mL/min/1.73m2 Glucose 204(H) 60 - 115 mg/dL [facility] Calcium 9.3 8.4 - 10.2 mg/dL [facility] 03/16/2025 9:02 AM EDT 03/16/2025 9:05 AM EDT Generic External Data Provider LAB BLOOD ORDERAB LES Final Result Performing Organization Address [facility]/ZIP Co de Phone Number [facility] [address] [place] [address] [phone] * Chlamydia/N. Gonorrhoeae RNA, TMA, Urogenitial (01/31/2025 8:18 PM EDT) CT PCR NOT DETECTED Not Detect. [facility] Comment:A not detected test result [...] psychologicalconsequences. NG PCR NOT DETECTED Not Detect. [facility] Comment:A not detected test result [...] lead to adverse medical, social or psychologicalconsequences. 01/31/2025 8:18 PM EDT 01/31/2025 8:27 PM EDT Narrative [facility] - 02/01/2025 12:08 PM EDT Urine us Generic External Data Provider LAB MICROBIOLOGY - GENERAL ORDERABLES Final Result [facility] [address] [place] [address] [phone] * Glucose, Whole Blood (01/31/2025 7:33 PM EDT) Glucose, Whole Blood 94 60 - 115 mg/dL [facility] Comment:METER #: [id number] 01/31/2025 7:33 PM EDT 01/31/2025 7:36 PM EDT us Generic External Data Provider LAB BLOOD ORDERAB LES Final Result Performing Organization Address [facility]/ZIP Co de Phone Number [facility] [address] [place] [phone] * (ABNORMAL) Glucose, Whole Blood (01/17/2025 3:41 PM EDT) Glucose, Whole Blood 162(H) 60 - 115 mg/dL [facility] Comment:METER #: [id number] Testing performed in the Endocrinology Department [address] , [address], [facility]. 01/17/2025 3:41 PM EDT 01/17/2025 3:45 PM EDT us Generic External Data Provider LAB BLOOD ORDERAB LES Final Result Performing Organization Address [facility] Co de Phone Number [facility] [address] [place] [phone] * Hepatitis C Antibody with Reflex to HCV, RNA, Quantitative, Real-Time PCR (11/15/2023 1:28 PM EDT) [facility] Hepatitis C Antibody Nonreactive Nonreactive [facility] Comment:Antibodies to HCV no t detected; does not exclude early acuteHCV infection. Blood Venous blood specimen / Unknown 11/15/2023 1:28 PM EDT 11/15/2023 4:04 PM EDT us Amna Urrutia DIETITIAN TEACHING LAB BLOOD ORDERABLES Final Resu lt Performing Organization Address [facility]/ZIP Co de Phone Number [facility] [address] [place] [phone] * Lipid Panel, Standard (11/15/2023 1:28 PM EDT) Triglycerides 56 <150 mg/dL [facility] Comment:Desirable Triglyceri de: less than 150 mg/dLBorderline High Triglyceride 150-199 mg/dLHigh Triglyceride: 200-499 mg/dLVery High Triglyceride: greater than or equal to 5OO mg/dL Cholesterol 145 <200 mg/dL [facility] Comment:Desirable Cholestero l: less than 200 mg/dLBorderline High Cholesterol: 200-239 mg/dLHigh Cholesterol: greater than 239 mg/dL LDL Cholesterol Calculated 84 <100 mg/dL [facility] Comment:Desirable LDL: less than 100 mg/dLNear Optimal/Above Optimal LDL: 110- 129 mg/dLBorderline High LDL: 130-159 mg/dLHigh LDL: 160-189 mg/dLVery High LDL: greater than or equal to 190 mg/dL HDL Cholesterol 50 >40 mg/dL [facility] Comment:Desirable HDL: great er than 40 mg/dL Note: This HDL assay may give artificially low results in patients with liver disease. Blood Venous blood specimen / Unknown 11/15/2023 1:28 PM EDT 11/15/2023 4:04 PM EDT us Amna Urrutia DIETITIAN TEACHING LAB BLOOD ORDERABLES Final Resu lt [facility] [address] [place] [address] [phone] * HIV-1 RNA, Quantitative, Real-Time PCR with Reflex to Genotype (RTI, PI, Integrase) (01/06/2023 10:25 AM EDT) HIV 1 RNA, QN PCR NOT DETECTED copies/mL [facility], HIV 1 RNA, QN PCR NOT DETECTED Log copies/mL [facility], Comment: REFERENCE RANGE: NOT DETECTED copies/mL NOT DETECTED Log copies/mL This test was performed using Real-Time Polymerase Chain Reaction. Reportable range is 20 to 10,000,000 copies/mL (1.30-7.00 Log copies/mL). 01/06/2023 10:2 5 AM EDT 01/06/2023 10:26 AM EDT Narrative [facility] - 01/11/2023 1:53 AM EDT FASTING:NO SPECIMEN COLLECTED AT PROVIDER OFFICE. FASTING: NO Amna Urrutia DIETITIAN TEACHING LAB BLOOD ORDERABLES Final Resu lt [facility] [address] [facility], [facility], [place] [address] [facility], [id number] [place] [phone] from Last 3 Months or Most Recently Relevant to Health Maintenance Insurance [facility] FULL [facility] - BCBS OF [place] Care Teams Fiber Optic Assembly Worker Relationship Specialty Start Date End Date Sahil Chen CNP [address] [place] [address] PCP - General Family Medicine 10/09/24 Chris Pack Jr Cold Mill OperatorSupervisor Stage Carpentry 09/04/24
--- OUTSIDE RECORDS SUMMARY | 2025-04-18 18:57 | XMS_ITS | Encounter Summary ---
Author Organization [facility] Address [address] [place] [address] Phone Care Team Providers Care Director Biology Name Role Phone Santos Mueller MD Primary Care Provider [phone] Encounter Details Date Type Department Care Team (Late st Contact Info) Description 08/05/2024 Documentation Only [facility] [place], [address] [place] [address] Jessica Sprague [address] [place] [address] Social History Tobacco Use Types [...] on filedocumented in this encounter Care Teams Director Biology Relationship Specialty Start Date End Date Santos Mueller MD [address] [place] [address] PCP - General Emergency Medicine 07/28/23 documented as of this encounter
--- OUTSIDE RECORDS SUMMARY | 2025-04-18 18:57 | XMS_ITS | Encounter Summary ---
Author Organization [employer] Address [address] [facility] 7t [place] [address] Care Team Providers Care Environmental Sampler Name Role Phone Amna Urrutia Primary Care Provider [phone] Name, Everett ROSE Primary Care Provider [phone] Sahil Chen CNP Primary Care Provider [phone] Reason for Visit * Reason Onset Date Comments Reschedule 02/14/2024 Encounter Details Date Type Department Care Team ([facility] st Contact Info) Description 02/14/2024 Telephone [facility] [address] [place] [address] Amna Urrutia FNP [address] [place] [address] Reschedule Social History Tobacco Use Types Packs/Day [...] to reschedule 02/13 follow up extended appointment. Clinical Mental Health Counselor attempted to reschedule but no availability. Please contact pt at [phone] documented in this encounter Plan of Treatment Not on file documented as of this encounter Visit Diagnoses Not on filedocumented in this encounter Additional Health Concerns Assessment Noted Time PHQ-9 Depression Total Score: 10 024 1:01 PM EDT documented as of this encounter Care Teams Environmental Sampler Relationship Specialty Start Date End Date Amna Urrutia FNP [address] [place] [address] PCP - General Family Medicine 01/01/23 04/18/24 Everett Angulo MD [address] [place] [address] PCP - General Internal Medicine 04/19/24 10/08/24 Sahil Chen CNP [address] [place] [address] PCP - General Family Medicine 10/09/24 Chris Pack Jr Construction Crew MemberCommercial Mortgage Broker 09/04/24 documented as of this encounter
--- OUTSIDE RECORDS SUMMARY | 2025-04-18 18:57 | XMS_ITS | Encounter Summary ---
Author Organization [employer] Address [address] [facility] 7t [place] [address] Care Team Providers Care Director Name Role Phone Amna Urrutia Primary Care Provider [phone] Everett Angulo MD Primary Care Provider [phone] Sahil Chen CNP Primary Care Provider [phone] Encounter Details Date Type Department Care Team (Late st Contact Info) Description 10/21/2022 Abstract [facility] [address] [place] [address] Marycruz Oseguera DDS [address] [place] [address] Social History Tobacco Use Types Packs/Day Years [...] filedocumented in this encounter Care Teams Director Relationship Specialty Start Date End Date Amna Urrutia FNP [address] [place] [address] PCP - General Family Medicine 01/01/23 04/18/24 Everett Angulo MD [address] [place], [place] [phone] PCP - General Internal Medicine 04/19/24 10/08/24 Sahil Chen CNP [address] [place], [place] [phone] PCP - General Family Medicine 10/09/24 Chris Pack Jr Client Services AssociateRisk Specialist 09/04/24 documented as of this encounter
--- OUTSIDE RECORDS SUMMARY | 2025-04-18 18:57 | XMS_ITS | Encounter Summary ---
Author Organization [employer] Address [address] [facility] [address] 7t [place] [address] Care Team Providers Care Spinner Open End Name Role Phone Name, Everett ROSE Primary Care Provider [phone] Sahil Chen CNP Primary Care Provider [phone] Reason for Visit * Reason Comments Med Refill Encounter Details Date Type Department Care Team (Late st Contact Info) Description 05/03/2024 Refill [facility] [address] [place], [place] [phone] Amna Urrutia FNP [address] [place] [address] Type 1 diabetes mellitus with hyperglycemia (CMS/[facility]) Social History Tobacco Use Types [...] documented as of this encounter Care Teams Spinner Open End Relationship Specialty Start Date End Date Name, MD Everett [address] [place] [address] PCP - General Internal Medicine 04/19/24 10/08/24 Sahil Chen CNP [address] [place] [address] PCP - General Family Medicine 10/09/24 Chris Pack Jr Die InspectorDate Night Sitter 09/04/24 documented as of this encounter
--- OUTSIDE RECORDS SUMMARY | 2025-04-18 18:57 | XMS_ITS | Encounter Summary ---
Author Organization [employer] Address [address] [facility] [address] 7t [place] [address] Care Team Providers Care Director Consumer Affairs Name Role Phone Amna Urrutia Primary Care Provider [phone] Adele, Everett ROSE Primary Care Provider [phone] Sahil Chen CNP Primary Care Provider [phone] Reason for Visit * Reason Onset Date Comments Med Refill 07/15/2023 Encounter Details Date Type Department Care Team (Late st Contact Info) Description 07/15/2023 Refill [facility] [address] [place], [place] [phone] Amna Urrutia FNP [address] [place] [address] Social History Tobacco Use Types Packs/Day Years [...] as of this encounter Care Teams Director Consumer Affairs Relationship Specialty Start Date End Date Amna Urrutia FNP [address] [place] [address] PCP - General Family Medicine 01/01/23 04/18/24 Name, MD Everett [address] [place] [address] PCP - General Internal Medicine 04/19/24 10/08/24 Sahil Chen CNP [address] [place] [address] PCP - General Family Medicine 10/09/24 Chris Pack Jr Second WorkerFisher Purse Seine 09/04/24 documented as of this encounter
--- OUTSIDE RECORDS SUMMARY | 2025-04-18 18:57 | XMS_ITS | Encounter Summary ---
Author Organization [employer] Address [address] [facility] [address] 7t [place] [address] Care Team Providers Care Solar System Installer Name Role Phone Amna Urrutia Primary Care Provider [phone] Adele, Everett ROSE Primary Care Provider [phone] Sahil Chen CNP Primary Care Provider [phone] Reason for Visit * Reason Onset Date Comments Med Refill 05/03/2023 Encounter Details Date Type Department Care Team (Late st Contact Info) Description 05/03/2023 Refill [facility] [address] [place], [place] [phone] Amna Urrutia FNP [address] [place] [address] Type 1 diabetes mellitus with hyperglycemia (CMS/HCC) [...] documented as of this encounter Care Teams Solar System Installer Relationship Specialty Start Date End Date Amna Urrutia FNP [address] [place] [address] PCP - General Family Medicine 01/01/23 04/18/24 Name, MD Everett [address] [place], [place] [phone] PCP - General Internal Medicine 04/19/24 10/08/24 Sahil Chen CNP [address] [place], [place] [phone] PCP - General Family Medicine 10/09/24 Chris Pack Jr Senior Java EngineerLongwall Foreman 09/04/24 documented as of this encounter
--- OUTSIDE RECORDS SUMMARY | 2025-04-18 18:57 | XMS_ITS | Encounter Summary ---
Author Organization [employer] Address [address] [facility] 7t [place] [address] Care Team Providers Care Damage Cutter Name Role Phone Sahil Chen CNP Primary Care Provider [phone] Reason for Visit * Reason Comments Med Refill Encounter Details Date Type Department Care Team (Late st Contact Info) Description 01/09/2025 Refill [facility] [address] [place], [place] [phone] Sahil Chen CNP [address] [place], [place] [phone] Type 1 diabetes mellitus with hyperglycemia (CMS/[facility]) Social History Tobacco Use Types Packs/Day [...] documented as of this encounter Care Teams Damage Cutter Relationship Specialty Start Date End Date Sahil Chen CNP [address] [place] [address] PCP - General Family Medicine 10/09/24 Chris Pack Jr Engineering LibrarianLaborer Brooder Farm 09/04/24 documented as of this encounter
--- OUTSIDE RECORDS SUMMARY | 2025-04-18 18:57 | XMS_ITS | Encounter Summary ---
Author Organization [employer] Address [address] [facility] 7t [place] [address] Care Team Providers Care Nursing Service Administrator Name Role Phone Amna Urrutia Primary Care Provider [phone] Name, Everett ROSE Primary Care Provider Sahil Chen CNP Primary Care Provider [phone] Reason for Visit * Reason Onset Date Comments Nurse Triage 05/30/2023 Encounter Details Date Type Department Care Team ([facility] st Contact Info) Description 05/30/2023 Telephone [facility] [address] [place] [address] Amna Urrutia FNP [address] [place] [address] Nurse Triage Social History Tobacco Use Types [...] obtain discharge summary for patient seen at [facility] ED 05/29/23 following head injury at work. Scheduled for follow up below Future Appointments Date Time Provider Department Center 05/31/2023 11:30 AM Denice Rubin MD [facility] * Telephone Encounter - Marline Vega RN - 05/30/2023 1:27 PM EDT Call to Bradford Torres, reports having been seen at [facility] ED 05/29 due to [...] Center 05/31/2023 11:30 AM Denice Rubin MD [facility] Video visit offer not recorded Positive [...] and states is still in pain ( continuity writer was un able to take all [...] documented as of this encounter Care Teams Nursing Service Administrator Relationship Specialty Start Date End Date Amna Urrutia FNP [address] [place] [address] PCP - General Family Medicine 01/01/23 04/18/24 [place] [address] PCP - General Internal Medicine 04/19/24 10/08/24 Sahil Chen CNP [address] [place] [address] PCP - General Family Medicine 10/09/24 Chris Pack Jr Vp Clinical ResearchDecorating Machine Tender 09/04/24 documented as of this encounter
--- OUTSIDE RECORDS SUMMARY | 2025-04-18 18:57 | XMS_ITS | Clinical Summary ---
Author Organization [address] [facility] Address [address] [place] [address] Phone Care Team Providers Care Kettleman Name Role Phone Sahil Chen NP Primary Care Provider [phone] Allergies Active Allergy Reactions Criticality Noted Date Comments Diphenhydramine Hcl 03/19/2025 Haloperidol Shortness of breath,Unknown High 10/18/2022 Jaw locks up and has tremors Other Reaction(s): Difficulty Swallowing, dystonic reaction Medications No known medications Encounters Date Type Department Care Team Description 03/19/2025 3:00 PM EDT Consult [facility] - [place] [address] [facility] [address] [place] [address] Devan Alonso, FRANK Ingrowing nail (Primary Dx); Local infection of the skin and subcutaneous tissue, unspecified; Type 1 diabetes mellitus without complications (CMS/[facility] V24, CMS/[facility] V28) from Last 3 Months Social History Tobacco Use Types Packs/Day Years Used Date Smoking Tobacco: Never Assessed Sex and Gender Information Value Date Recorded Sex Assigned at Male 03/18/2025 4:04 PM EDT Legal Sex Male 1:38 PM EDT Gender Identity Male 03/18/2025 4:04 PM EDT Sexual Orientation Not on file Last Filed Vital Signs Vital Sign Reading Time Taken Comments Blood Pressure - - Pulse - - Temperature - - Respiratory Rate - - Oxygen Saturation - - Inhaled Oxygen Concentration - - Weight 62.6 kg (138 lb) 03/19/2025 2:53 PM EDT Height 182.9 cm (6') 03/19/2025 2:53 PM EDT Body Mass Index 18.72 03/19/2025 2:53 PM EDT Plan of Treatment Upcoming Encounters Date Type Department Care Team (Late st Contact Info) Description 09/22/2025 2:30 PM EST Office Visit [facility] - [place] [address] [phone] Devan Alonso, DPM [address] [address] Health Maintenance Due Date Last Done Comments Diabetes: Annual Foot Exam 02/07/2006 Diabetes: Annual Retina Eye Exam 02/07/2006 Hepatitis B Vaccines (1 of 3 - 19+ 3-dose series) 02/07/2015 Pneumococcal Vaccine: Pediatrics (0 to 5 Years) and At-Risk Patients (6 to 49 Years) (1 of 2 - PCV) 02/07/2015 HIV Screening 03/13/2024 Social Influencers of Health Screening 03/13/2024 COVID-19 Vaccine (1 - 2023-2 5 season) 2024 Depression Screening 08/21/2024 Diabetes: Annual Urine Albumin-Creatinine Ratio (uACR) 01/01/2025 Influenza Vaccine (#1) 2025 06/08/2016 Diabetes: Blood Sugar Contro l Test (HGBA1C) 09/19/2025 03/19/2025 Diabetes: Annual GFR (Glomerular Filtration Rate) 03/16/2026 03/16/2025 Cholesterol Screening (Lipid Panel) 11/14/2028 11/15/2023 DTaP,Tdap,and Td Vaccines (3 - Td or Tdap) 11/07/2033 11/08/2023, 02/23/2015 Hepatitis C Screening Completed 11/15/2023 HIB Vaccines [...] to complete this topic RSV Immunization Patients Under 20 months Aged Out No longer eligible b ased on patient's age to complete this topic Varicella Vaccines Aged Out No longer eligible based on patient's age to complete this topic Insurance MEDICAID - [place] Care Teams Kettleman Relationship Specialty Start Date End Date Sahil Chen NP [address] [place] [address] PCP - General Family Medicine 01/01/25
--- OUTSIDE RECORDS SUMMARY | 2025-04-18 18:57 | XMS_ITS | Encounter Summary ---
Author Organization [employer] Address 75 [facility] 7t [place] [address] Care Team Providers Care Comber Setter Name Role Phone Amna Urrutia Primary Care Provider [phone] Adele, Everett ROSE Primary Care Provider [phone] Sahil Chen CNP Primary Care Provider [phone] Reason for Visit * Reason Onset Date Comments Med Refill 04/29/2023 Encounter Details Date Type Department Care Team (Late st Contact Info) Description 04/29/2023 Refill [facility] [address] [place] [address] Sandra Leal MD [address] [place], [place] [phone] Social History Tobacco Use Types Packs/Day Years [...] documented as of this encounter Care Teams Comber Setter Relationship Specialty Start Date End Date Amna Urrutia FNP [address] [place], [place] [phone] PCP - General Family Medicine 01/01/23 04/18/24 Everett Angulo MD 230 [place], [place] [phone] PCP - General Internal Medicine 04/19/24 10/08/24 Sahil Chen CNP [address] [place], [place] [phone] PCP - General Family Medicine 10/09/24 Chris Pack Jr Exhibit DesignerWine Consultant 09/04/24 documented as of this encounter
--- OUTSIDE RECORDS SUMMARY | 2025-04-18 18:57 | XMS_ITS | Encounter Summary ---
Author Organization [facility] Address [address] [place] [address] Phone Care Team Providers Care Shot Packer Name Role Phone Santos Mueller MD Primary Care Provider [phone] Encounter Details Date Type Department Care Team (Late st Contact Info) Description 07/28/2023 Documentation Only [facility] [place], [address] [place] [address] Santos Mueller MD [address] [place] [address] Social History Tobacco Use Types [...] on filedocumented in this encounter Care Teams Shot Packer Relationship Specialty Start Date End Date Santos Mueller MD [address] [place] [address] PCP - General Emergency Medicine 07/28/23 documented as of this encounter
--- OUTSIDE RECORDS SUMMARY | 2025-04-18 18:57 | XMS_ITS | Encounter Summary ---
Author Organization [employer] Address 75 [facility] 7t [place] [address] Care Team Providers Care Internetworking Technician Name Role Phone Sahil Chen CNP Primary Care Provider [phone] Reason for Visit * Reason Comments Med Refill Encounter Details Date Type Department Care Team (Late st Contact Info) Description 02/17/2025 Refill [facility] [address] [place], [place] [phone] Sahil Chen CNP 230 [place], [place] [phone] Type 1 diabetes mellitus with hyperglycemia (CMS/[facility]) Social History Tobacco Use Types Packs/Day Years [...] documented as of this encounter Care Teams Internetworking Technician Relationship Specialty Start Date End Date Sahil Chen CNP [address] [place] [address] PCP - General Family Medicine 10/09/24 Chris Pack Jr Coating Mixer TenderFood Trades Assistants 09/04/24 documented as of this encounter
--- OUTSIDE RECORDS SUMMARY | 2025-04-18 18:57 | XMS_ITS | Encounter Summary ---
Author Organization [employer] Address 75 [facility] 7t [place] [address] Care Team Providers Care Regional Commercial Sales Manager Name Role Phone Amna Urrutia Primary Care Provider [phone] Adele, Everett ROSE Primary Care Provider [phone] Sahil Chen CNP Primary Care Provider [phone] Reason for Visit * Reason Onset Date Comments Med Refill 04/28/2023 Encounter Details Date Type Department Care Team (Late st Contact Info) Description 04/28/2023 Refill [facility] [address] [place] [address] Sandra Leal MD 230 [place] [address] Social History Tobacco Use Types Packs/Day Years [...] documented as of this encounter Care Teams Regional Commercial Sales Manager Relationship Specialty Start Date End Date Amna Urrutia FNP [address] [place], [place] [phone] PCP - General Family Medicine 01/01/23 04/18/24 Everett Angulo MD 230 [place], [place] [phone] PCP - General Internal Medicine 04/19/24 10/08/24 Sahil Chen CNP 230 [place], [place] [phone] PCP - General Family Medicine 10/09/24 Chris Pack Jr Saw ManHydraulic Press Tender 09/04/24 documented as of this encounter
--- OUTSIDE RECORDS SUMMARY | 2025-04-18 18:57 | XMS_ITS | Encounter Summary ---
Author Organization [employer] Address [address] [facility] [address] 7t [place] [address] Care Team Providers Care Scale Manager Name Role Phone Name, Everett ROSE Primary Care Provider [phone] Sahil Chen CNP Primary Care Provider [phone] Encounter Details Date Type Department Care Team (Late st Contact Info) Description 04/21/2024 Orders Only [facility] [address] [place], [place] [phone] Amna Urrutia FNP [address] [place], [place] [phone] Social History Tobacco Use Types Packs/Day Years [...] documented as of this encounter Care Teams Scale Manager Relationship Specialty Start Date End Date Name, MD Everett 230 [place] [address] PCP - General Internal Medicine 04/19/24 10/08/24 Sahil Chen CNP 230 [place] [address] PCP - General Family Medicine 10/09/24 Chris Pack Jr Gravel ScreenerCard Cutter Helper 09/04/24 documented as of this encounter
--- OUTSIDE RECORDS SUMMARY | 2025-04-18 18:57 | XMS_ITS | Encounter Summary ---
Author Organization [employer] Address [address] [place] [address] Care Team Providers Care Bacteriologist Fishery Name Role Phone Amna Urrutia Primary Care Provider [phone] Adele, Everett ROSE Primary Care Provider [phone] Sahil Chen CNP Primary Care Provider [phone] Reason for Visit * Reason Onset Date Comments Med Refill 05/01/2023 Encounter Details Date Type Department Care Team (Late st Contact Info) Description 05/01/2023 Refill [facility] [address] [place] [address] Lakshmi Womack FNP [address] [place] [address] Type 1 diabetes mellitus with hyperglycemia (CMS/HCC) [...] documented as of this encounter Care Teams Bacteriologist Fishery Relationship Specialty Start Date End Date Amna Urrutia FNP [address] [place], [place] [phone] PCP - General Family Medicine 01/01/23 04/18/24 Adele, MD Everett [address] [place], [place] [phone] PCP - General Internal Medicine 04/19/24 10/08/24 Sahil Chen CNP [address] [place], [place] [phone] PCP - General Family Medicine 10/09/24 Chris Pack Jr Bakeshop CleanerOuter Diameter Grinder 09/04/24 documented as of this encounter
--- OUTSIDE RECORDS SUMMARY | 2025-04-18 18:57 | XMS_ITS | Clinical Summary ---
Author Organization [facility] Address [address] [place] [address] Phone Care Team Providers Care Structural Steel Equipment Erector Name Role Phone Sahil Chen TALENT ACQUISITION ADMINISTRATOR Primary Care Provider [phone] Allergies Active Allergy Reactions Criticality Noted Date Comments Diphenhydramine Hcl 04/02/2025 Haloperidol 04/02/2025 Medications No known medications Encounters Date Type Department Care Team Description 04/02/2025 1:57 PM EDT - 04/02/2025 9:38 PM EDT Emergency [facility] [address] [place] [address] Kenneth Shane MD Discharge Disposition: Left Against Medical Advice from Last 3 Months Social History Tobacco Use Types Packs/Day Years Used Date Smoking Tobacco: Never Assessed Education Answer Date Recorded Are you interested in more education? Not on perry e 03/25/2024 Are you concerned about learning? Not on file 03/25/2024 No 03/25/2024 No 03/25/2024 Food Answer Date Recorded Within the past 6 months we worried whether our food would run out before we got money to buy more. Never True 04/02/2025 Within the past 6 months the food we bought just didn't last and we didn't have enough money to get more. Never True Residential Stability Answer Date Recor ded What is your housing situation today? I have augusta sing 04/02/2025 How many times have you move d in the past 12 months? Zero (I did not move) 04/02/2025 Paying for Meds Answer Date Recorded Do you have trouble paying for medicines? No 04/02/2025 Paying Utility Bills Answer Date Record ed Do you have trouble paying your heating or elect ricity bill? No 04/02/2025 Transportation Answer Date Recorded Has the lack of transportati on kept you from medical appointments or from getting medications? No 04/02/2025 Digital Access Answer Date Recorded No 04/02/2025 Yes 04/02/2025 Do you have reliable internet access at home? Ye s 04/02/2025 Do you have a device (e.g., phone, tablet, computer) with a working camera? Yes 04/02/2025 Intimate Partner Violence Answer Date R ecorded Are you denied basic needs s uch as food, clothing, or medical care? No 04/02/2025 In the past 12 months have y ou been in a relationship with a person who hurts, threatens, or tries to control you? No 04/02/2025 Are you denied basic needs s uch as food, clothing, or medical care? No 04/02/2025 In the past 12 months have y ou been in a relationship with a person who hurts, threatens, or tries to control you? No 04/02/2025 Sex and Gender Information Value Date Recorded Sex Assigned at Male 04/02/2025 2:37 PM EDT Legal Sex Male 8:51 PM EDT Gender Identity Male 04/02/2025 2:37 PM EDT Sexual Orientation Don't know 04/02/2025 2: 37 PM EDT Last Filed Vital Signs Vital Sign Reading Time Taken Comments Blood Pressure 115/82 04/02/2025 2:06 PM EDT Pulse 78 04/02/2025 2:06 PM EDT Temperature 36.9 C (98.4 F) 04/02/2025 2:06 PM EDT Respiratory Rate 18 04/02/2025 2:06 PM EDT Oxygen Saturation 100% 04/02/2025 2:06 PM EDT Inhaled Oxygen Concentration - - Weight 63.5 kg (140 lb) 04/02/2025 2:06 PM EDT Height 182.9 cm (6') 04/02/2025 2:06 PM EDT Body Mass Index 18.99 04/02/2025 2:06 PM EDT Plan of Treatment Health Maintenance Due Date Last Done Comments DEPRESSION SCREENING 2008 SMOKING Hx and SMOKELESS TOB ACCO SCREENING 02/07/2009 HEPATITIS C SCREENING 02/07/2014 HIV ONE-TIME SCREENING (18-6 5 YEARS) 02/07/2014 COVID-19 VACCINE (2023-2 5 season) 2024 Adult Td,Tdap Booster 11/07/2033 11/08/2023 HEPATITIS A VACCINES Aged Out No long er eligible based on patient's age to complete this topic HIB VACCINES Aged Out No longer eligi ble based on patient's age to complete this topic MENINGOCOCCAL VACCINES (ACWY) Aged Out No longer eligible based on patient's age to complete this topic MENINGOCOCCAL VACCINES (B) Aged Out N o longer eligible based on patient's age to complete this topic PNEUMOCOCCAL VACCINES (0-49 years) Aged Out No longer eligible based on patient's age to complete this topic Medical Devices Not on file Procedures Procedure Name Priority Date/Time Associated Diagnosis Comments POCT GLUCOSE Routine 04/02/2025 7:41 PM EDT ECG 12-LEAD STAT 04/02/2025 3:03 PM EDT ACETAMINOPHEN LEVEL STAT 04/02/2025 2 :39 PM EDT ETHANOL, BLOOD STAT 04/02/2025 2:39 PM EDT LIPASE STAT 04/02/2025 2:39 PM EDT PHOSPHORUS STAT 04/02/2025 2:39 PM EDT MAGNESIUM STAT 04/02/2025 2:39 PM EDT LFTS (HEPATIC PANEL) STAT 04/02/2025 2:39 PM EDT BASIC METABOLIC PANEL STAT 04/02/2025 2:39 PM EDT CBC AND DIFFERENTIAL STAT 04/02/2025 2:39 PM EDT from Last 3 Months Results * (ABNORMAL) POCT Glucose (04/02/2025 7:41 PM EDT) [facility] Glucose, POCT 54(L) 70 - 100 mg/dL [facility] 04/02/2025 7:41 PM EDT 04/02/2025 7:55 PM EDT us Kenneth Shane MD POINT OF CARE TEST ORDERA BLES Final Result Performing Organization Address [facility]/ZIP Co de Phone Number [address] [address] * ECG 12-LEAD (04/02/2025 3:03 PM EDT) Ventricular Rate EKG/MIN 81 BPM [facility] Atrial Rate 81 BPM [facility] HI Interval 142 ms [facility] QRS Duration 102 ms [facility] QT Interval 376 ms [facility] QTC Interval 436 ms [facility] R Wave Randall -75 degrees [facility] T Wave Randall 13 degrees [facility] 04/02/2025 3:03 PM EDT 04/02/2025 5:55 PM EDT Narrative [facility] - 04/02/2025 5:55 PM EDT Normal sinus rhythm with sinus arrhythmia Left anterior fascicular block Abnormal ECG No previous ECGs available Confirmed by Jonny ZELAYA ([id number]) on 04/02/2025 5:55:23 PM us Kenneth Shane MD ECG ORDERABLES Final Res ult Performing Organization Address [facility] Co de Phone Number [email or web address] * Ethanol, blood (04/02/2025 2:39 PM EDT) ETHANOL <10 <10 mg/dL [facility] Blood 04/02/2025 2:39 PM EDT 04/02/2025 2:44 PM EDT us Kenneth Shane MD LAB BLOOD ORDERABLES Olga l Result Performing Organization Address City/[facility]/ZIP Co de Phone Number [address] [address] * LFTs (hepatic panel) (04/02/2025 2:39 PM EDT) ALKALINE PHOSPHATASE 82 39 - 117 U/L [facility] TOTAL BILIRUBIN 0.8 0.0 - 1.2 mg/dL [facility] DIRECT BILIRUBIN 0.2 0.0 - 0.2 mg/dL [facility] Bilirubin (Indirect) 0.6 0 - 1.5 mg/dL [facility] AST 14 0 - 37 U/L [facility] ALT 12 0 - 40 U/L [facility] TOTAL PROTEIN 7.4 6.5 - 8.0 g/dL [facility] ALBUMIN 4.2 3.9 - 4.8 g/dL [facility] GLOBULIN 3.2 1 - 4.8 g/dL [facility] A/G Ratio 1.31 1.00 - 4.80 RATIO [facility] Blood 04/02/2025 2:39 PM EDT 04/02/2025 2:44 PM EDT us Kenneth Shane MD LAB BLOOD ORDERABLES Olga l Result [facility] [address] [place], [place] [id number] * (ABNORMAL) CBC and differential (04/02/2025 2:39 PM EDT) WBC 8.77 4.00 - 11.00 K/uL [facility] RBC 5.08 4.50 - 5.90 M/uL [facility] HGB 13.2(L) 13.5 - 17.5 g/dL [facility] HCT 41.2 41.0 - 53.0 % [facility] PLT 290 150 - 450 K/uL [facility] MCV 81.1 80.0 - 100.0 fL [facility] MCH 26.0(L) 27.0 - 31.0 pg [facility] MCHC 32.0 32.0 - 36.0 g/dL [facility] RDW 14.1 11.5 - 14.5 % [facility] MPV 9.8 8.4 - 12.0 fL [facility] NRBC 0.00 0.00 /100 WBCs [facility] ABSOLUTE NRBC 0.00 0.00 K/uL [facility] DIFF METHOD Auto [facility] NEUTS 65.9 48.0 - 76.0 % [facility] LYMPHS 25.3 18.0 - 41.0 % [facility] MONOS 7.1 4.0 - 11.0 % [facility] EOS 0.9 0.0 - 5.0 % [facility] BASOS 0.6 0.0 - 1.5 % [facility] Granulocytes, immature (%) 0.2 0.0 - 0.9 % [facility] ABSOLUTE NEUTS 5.78 1.92 - 7.60 K/uL [facility] ABSOLUTE LYMPHS 2.22 0.72 - 4.10 K/uL [facility] ABSOLUTE MONOS 0.62 0.16 - 1.10 K/uL [facility] ABSOLUTE EOS 0.08 0.00 - 0.50 K/uL [facility] ABSOLUTE BASOS 0.05 0.00 - 0.15 K/uL [facility] Granulocytes, immature 0.02 0.00 - 0.09 K/uL [facility] Blood 04/02/2025 2:39 PM EDT 04/02/2025 2:44 PM EDT us Kenneth Shane MD LAB BLOOD ORDERABLES Olga l Result [address] [address] * (ABNORMAL) Phosphorus (04/02/2025 2:39 PM EDT) PHOSPHORUS 1.3(LL) 2.7 - 4.5 mg/dL [facility] Comment: Critical value: Results called to and read back by: SULMA Phillips ED 1524 04/02/25 BY [id number] Blood 04/02/2025 2:39 PM EDT 04/02/2025 2:44 PM EDT us Kenneth Shane MD LAB BLOOD ORDERABLES Olga l Result Performing Organization Address City/[facility]/ZIP Co de Phone Number [address] [address] * Magnesium (04/02/2025 2:39 PM EDT) MAGNESIUM 2.1 1.6 - 2.6 mg/dL [facility] Blood 04/02/2025 2:39 PM EDT 04/02/2025 2:44 PM EDT Kenneth Shane MD LAB BLOOD ORDERABLES Olga l Result Performing Organization Address [facility] Co de Phone Number [address] [address] * (ABNORMAL) Lipase (04/02/2025 2:39 PM EDT) Pathologist [facility] LIPASE 8(L) 16 - 63 U/L [facility] Blood 04/02/2025 2:39 PM EDT 04/02/2025 2:44 PM EDT Kenneth Shane MD LAB BLOOD ORDERABLES Olga l Result Performing Organization Address [facility] Co de Phone Number [address] [address] * (ABNORMAL) Acetaminophen level (04/02/2025 2:39 PM EDT) Pathologist [facility] ACETAMINOPHEN <5.0(L) 15.0 - 30.0 ug/mL [facility] Blood 04/02/2025 2:39 PM EDT 04/02/2025 2:44 PM EDT us Kenneth Shane MD LAB BLOOD ORDERABLES Olga l Result Performing Organization Address City/[facility]/ZIP Co de Phone Number [address] [address] * (ABNORMAL) Basic metabolic panel (04/02/2025 2:39 PM EDT) SODIUM 137 133 - 146 mmol/L [facility] CHLORIDE 101 96 - 108 mmol/L [facility] POTASSIUM 4.0 3.3 - 5.1 mmol/L [facility] CO2 23 21 - 35 mmol/L [facility] BUN 18 6 - 19 mg/dL [facility] CREATININE 0.80 0.5 - 1.5 mg/dL [facility] GLUCOSE 112(H) 70 - 99 mg/dL [facility] CALCIUM 9.6 8.4 - 10.3 mg/dL [facility] EGFR >120 >59 mL/min/1.7 3m2 [facility] Comment:Estimated glomerular filtration rate calculated using the CKD-EPI refit equation. ANION GAP 17 10 - 20 mmol/L [facility] Blood 04/02/2025 2:39 PM EDT 04/02/2025 2:44 PM EDT Kenneth Shane MD LAB BLOOD ORDERABLES Olga bowman Result [address] [id number] from Last 3 Months Insurance [place] [address] [address] Care Teams Structural Steel Equipment Erector Relationship Specialty Start Date End Date Sahil Chen NP [address] [place] [address] PCP - General Nurse Practitioner 04/02/25 Additional Source Comments The information contained in this document represents components of the legal health record. It is not the complete legal health record.[facility]
--- OUTSIDE RECORDS SUMMARY | 2025-04-18 18:57 | XMS_ITS | Encounter Summary ---
Author Organization [facility] Address [address] [place] [address] Phone Care Team Providers Care Hand Bookbinder Name Role Phone Santos Mueller MD Primary Care Provider [phone] Encounter Details Date Type Department Care Team (Late st Contact Info) Description 08/05/2024 Documentation Only [facility], [address] [place] [address] Jessica Sprague [address] [place] [address] Social History Tobacco Use Types [...] on filedocumented in this encounter Care Teams Hand Bookbinder Relationship Specialty Start Date End Date Santos Mueller MD [address] [place] [address] PCP - General Emergency Medicine 07/28/23 documented as of this encounter
--- OUTSIDE RECORDS SUMMARY | 2025-04-18 18:57 | XMS_ITS | Encounter Summary ---
Author Organization [employer] Address [address] [facility] [address] [place] [address] Care Team Providers Care Cloth Tester Name Role Phone Amna Urrutia Primary Care Provider [phone] Name, Everett ROSE Primary Care Provider [phone] Sahil Chen CNP Primary Care Provider [phone] Reason for Visit * Reason Onset Date Comments Med Refill 07/17/2023 Encounter Details Date Type Department Care Team (Late st Contact Info) Description 07/17/2023 Refill [facility] [address] [place] [address] Amna Urrutia FNP [address] [place] [address] Social History Tobacco Use Types Packs/Day Years [...] documented as of this encounter Care Teams Cloth Tester Relationship Specialty Start Date End Date Amna Urrutia FNP [address] [place] [address] PCP - General Family Medicine 01/01/23 04/18/24 Everett Angulo MD [address] [place] [address] PCP - General Internal Medicine 04/19/24 10/08/24 Sahil Chen CNP [address] [place] [address] PCP - General Family Medicine 10/09/24 Chris Pack Jr Paint Brush MakerOnline Community Manager 09/04/24 documented as of this encounter
--- OUTSIDE RECORDS SUMMARY | 2025-04-18 18:57 | XMS_ITS | Encounter Summary ---
Author Organization [employer] Address [address] [facility] 7t [place] [address] Care Team Providers Care Service Desk Technician Name Role Phone Sahil Chen CNP Primary Care Provider [phone] Reason for Visit * Reason Onset Date Comments Nurse Triage 03/17/2025 Encounter Details Date Type Department Care Team (Late st Contact Info) Description 03/17/2025 Telephone [facility] [address] [place], [place] [phone] Sahil Chen CNP [address] [place] [address] Nurse Triage Social History Tobacco Use Types [...] encounter Miscellaneous Notes * Telephone Encounter - Jenny Rodas RN - 03/17/2025 12:50 PM EDT Triage call Pt reports lower back/ tailbone pain and testicular pain. Pt was seen in [facility] ED 03/16/25report is on the chart. ED follow up for . 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 Pt reports low back pain persists extending to tailbone and testicular area. Pt reports pain does radiate up to neck and between shoulder blades. Pt is able to ambulate with much discomfort and ambulates with a limp. Pt is taking cyclobenziprine and naproxyn bid for pain with good effect. ASK apt with PCP [place] @ 1000am. Pt agrees with disposition and insurance is verified as active prior to booking. Protocol Used: Back Pain (Adult) Protocol-Based Disposition: See in Office or Video Visit within 3 Days Video visit not offered Positive Triage Questions: * Moderate back pain (e.g., interferes with normal activities) and present > 3 days * Patient wants to be seen * All higher-acuity triage questions were negative Care Advice Discussed: * Reassurance and Education - Back Pain * Cold or Heat * Continue Activity * Pain Medicines * Reasons To Call Back - Fever occurs - Numbness or weakness occurs - Loss of control of your bladder or bowel - Severe pain not better after taking pain medicines - Pain begins to shoot into the leg - Pain lasts over 2 weeks - Pain becomes worse - You become worse * Telephone Encounter - Everett Bernal - 03/17/2025 11:48 AM EDT Patient calling to report ED visit on : Date: 03/16/2025 Hospital: [facility] Seen for: 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 Contact pt at [phone] documented in this encounter Plan of Treatment Not on file documented as of this encounter Visit Diagnoses Not on filedocumented in this encounter Additional Health Concerns Assessment Noted Time PHQ-9 Depression Total Score: 19 11/27/ 025 3:09 PM EDT documented as of this encounter Care Teams Service Desk Technician Relationship Specialty Start Date End Date Sahil Chen CNP [address] [place] [address] PCP - General Family Medicine 10/09/24 Chris Pack Jr Medical Technologist HematologyCad Administrator 09/04/24 documented as of this encounter
--- OUTSIDE RECORDS SUMMARY | 2025-04-18 18:57 | XMS_ITS | Encounter Summary ---
Author Organization [employer] Address [address] [address] [facility] [facility] [address] [place] [address] Care Team Providers Care Rocket Engine Component Mechanic Name Role Phone Amna Urrutia Primary Care Provider [phone] Adele, Everett ROSE Primary Care Provider [phone] Sahil Chen CNP Primary Care Provider [phone] Encounter Details Date Type Department Care Team (Late st Contact Info) Description 01/17/2023 Orders Only [facility] MED[facility]INE [address] [place] [address] Amna Urrutia FNP [address] [place] [address] Social History Tobacco Use Types Packs/Day Years [...] documented as of this encounter Care Teams Rocket Engine Component Mechanic Relationship Specialty Start Date End Date Amna Urrutia FNP [address] [place], [place] [phone] PCP - General Family Medicine 01/01/23 04/18/24 Everett Angulo MD [address] [place], [place] [phone] PCP - General Internal Medicine 04/19/24 10/08/24 Sahil Chen CNP [address] [place], [place] [phone] PCP - General Family Medicine 10/09/24 Chris Pack Jr Reports Analysis ManagerMeter Repairer Helper 09/04/24 documented as of this encounter
--- OUTSIDE RECORDS SUMMARY | 2025-04-18 18:57 | XMS_ITS | Encounter Summary ---
Author Organization [employer] Address [address] [facility] [address] [place] [address] Care Team Providers Care Event Organizer Name Role Phone Amna Urrutia Primary Care Provider [phone] Name, Everett ROSE Primary Care Provider [phone] Sahil Chen CNP Primary Care Provider [phone] Reason for Visit * Reason Onset Date Comments Med Refill 09/27/2023 Encounter Details Date Type Department Care Team (Late st Contact Info) Description 09/27/2023 Refill [facility] MED[facility]INE [address] [place], [place] [phone] Amna Urrutia FNP [address] [place] [address] Type 1 diabetes mellitus with hyperglycemia ([facility]/HCC) Social History Tobacco Use Types Packs/Day [...] documented as of this encounter Care Teams Event Organizer Relationship Specialty Start Date End Date Amna Urrutia FNP [address] [place] [address] PCP - General Family Medicine 01/01/23 04/18/24 Everett Angulo MD [address] [place] [address] PCP - General Internal Medicine 04/19/24 10/08/24 Sahil Chen CNP [address] [place] [address] PCP - General Family Medicine 10/09/24 Chris Pack Jr VenderBilingual Manager 09/04/24 documented as of this encounter
== END 2025-04-18 18:48 | disposition home or self-care (01) ==
LOC: HO.MRI 18:47
DX: M54.9 Dorsalgia, unspecified (principal); G89.29 Other chronic pain
CPT/HCPCS: 72148

== ENCOUNTER 2025-05-11 19:19 | Emergency (ER) | payer MEDICAID, SELFPAY ==
--- NOTE | ~2025-05-11 | XR_ITS ---
CLINICAL HISTORY: chest pain 2 view chest x-ray Comparison: Chest x-ray from 09/13/2024 Findings: No consolidation or effusion. No pneumothorax. Heart size is normal. No acute fracture, by two-view chest x-ray. IMPRESSION: No consolidation. This document has been electronically signed by: Perry Ferrera MD on 05/11/2025 21:52:00
--- NOTE | ~2025-05-11 | XR_ITS ---
CLINICAL HISTORY: back pain 2 views thoracic spine Comparison: X-rays of the thoracic spine from 05/07/2024 Findings: Lateral imaging includes a swimmer's view imaged. No significant change of the imaged vertebral heights or alignments. Cervicothoracic junction is obscured. Straightening of the imaged cervical lordosis in the [id number]. No consolidation of the imaged lungs. IMPRESSION: 1. Negative x-rays of the thoracic spine, without significant change compared to 1 year prior 2. Straightening of the imaged cervical lordosis. This document has been electronically signed by: Perry Ferrera MD on 05/11/2025 21:53:59
[2025-05-11 19:36] LABS: Glucose, Whole Blood 237 mg/dL (60-115)
[2025-05-11 19:39] VITALS: BP 109/68; BP 98/60; PULSE 109; PULSE 94; RESP 20; TEMP 36.9; O2SAT 100; O2SAT 98; BMI 19.0
--- NOTE | 2025-05-11 19:58 | ED_ITS ---
HPI - General Adult General Chief complaint: Back Pain/Injury Stated complaint: Radiating shoulder, back & Ab pain for 5 days Time Seen by Provider: 05/11/25 19:36 Source: patient Mode of arrival: ambulatory Limitations: no limitations History of Present Illness ED Provider: Dr. Wolff HPI narrative: This is a 30-year-old male history of GERD, diabetes, Gates's esophagus presented hospital today for evaluation of thoracic spine tenderness. Patient stated that this has been going on for this past week. Patient was seen at the [facility] where he was placed on Flexeril however it is not working. Patient denies any shortness of breath or coughing denies any fever. Denies any trauma. Patient stated that Flexeril is not working. Therefore he presents to the ER for further evaluation. Related Data Home Medications ?Medication ?Instructions ?Recorded ?Confirmed pantoprazole 40 mg tablet,delayed 40 mg PO DAILY@0630 12/19/22 01/31/25 release (Protonix) promethazine 25 mg tablet 25 mg PO TID PRN nausea/vomi ting 01/23/23 01/31/25 acetaminophen 500 mg tablet 500 mg PO Q6H PRN 04/09/24 01/31/25 Previous Rx's ?Medication ?Instructions ?Recorded albuterol sulfate 90 mcg/actuation 2 puff inhalation Q ID PRN 04/13/24 aerosol inhaler shortness of breath or wheez ing #6.7 grams cyclobenzaprine 10 mg tablet 10 mg PO TID #10 tabs acetone (urine) test (Ketone Urine #25 ea 06/19/24 Test strips) blood-glucose,stone paver,cont #1 ea 06/19/24 (Dexcom G7 Bill Sorter) glucagon 3 mg/actuation nasal 3 mg intranasal ONCE PRN 06/19/24 spray (Baqsimi) unresponsive hypoglycemia 30 days #2 ea ondansetron 4 mg disintegrating 4 mg PO Q8H PRN nausea and 10/11/24 tablet vomiting #20 tabs blood-glucose sensor (Dexcom G7 #6 ea 01/17/25 Sensor device) insulin aspart U-100 100 unit/mL 1 sliding scale dose subcut 01/17/25 (3 mL) subcutaneous pen (Novolog TIDWMEAL 30 days #15 mL FlexPen U-100 Insulin aspart) insulin degludec 200 unit/mL (3 18 unit (0.09 mL) subc ut DAILY 30 01/17/25 mL) subcutaneous pen ( #6 mL FlexTouch U-200 insulin) pen needle, diabetic 32 gauge x #150 ea 01/17/25 blood sugar diagnostic (FreeStyle #100 ea 01/27/25 Lite Strips) blood-glucose meter (FreeStyle #1 ea 01/27/25 Lite Meter kit) lancets 28 gauge (FreeStyle #100 ea 01/27/25 Lancets) ketorolac 10 mg tablet 10 mg PO Q6H PRN pain 5 days #20 01/31/25 tabs levofloxacin 500 mg tablet 500 mg PO DAILY 10 days #10 tabs 01/31/25 morphine 15 mg immediate release 15 mg PO Q6H PRN pain #14 tabs 01/31/25 tablet ondansetron 4 mg disintegrating 4 mg PO Q6-8H PRN naus ea and 01/31/25 tablet vomiting #14 tabs cyclobenzaprine 10 mg tablet 10 mg PO TID PRN muscle s pasm #12 03/16/25 tabs levofloxacin 500 mg tablet 500 mg PO DAILY 10 days #10 tabs 03/16/25 lidocaine 5 % topical patch 1 patch topical DAILY #15 ea 03/16/25 (Lidoderm) naproxen 500 mg tablet 500 mg PO BID PRN pain #30 t abs 03/16/25 gabapentin 300 mg capsule 300 mg PO TID #14 caps 05/12 Allergies Allergy/AdvReac Type Severity Reaction Status Date / Time diphenhydramine (From Allergy Anaphylaxis Verified 05/11/25 19:43 Benadryl) haloperidol (From Haldol) Allergy Difficulty Verified 05/11/25 19:43 Swallowing lorazepam (From Ativan) AdvReac Difficulty Verified 05/11/25 19:43 Breathing metoclopramide (From Reglan) AdvReac Anxiety Verified 05/11/25 19:43 Review of Systems 2 Review of Systems: Pertinent review of systems as mentioned in HPI. All other system otherwise negative. [facility] Past Medical History [facility] Narrative: Medical history as mentioned in HPI Medical History Abdominal pain Dental infection Colitis DKA (diabetic ketoacidosis) Hyperglycemia 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 type 1 Surgical History History of esophagogastroduodenoscopy (EGD) Family History Family History Paternal Grandmother Breast cancer Family/Other Brain cancer Social History Social History Household Members: Other Household Members Other:: cousin Housing: House Do you presently have visiting nurse or other home services: No Alcohol intake: current Alcohol intake frequency: holidays/special occasions only Patient Tobacco Use Status: Current everyday Tobacco user Tobacco use type: Cigarette Cigarette Packs Per Day: 0 Cigarettes Per Day: 0 Years Smoked: 10 Smoked in Last 30 Days: Yes e-Cigarette/Vaping Use: Never Used Second Hand Smoke Exposure: No Use of substances other than those prescribed or required for medical reasons: Yes Substance Use Type: Marijuana Advance Directives: No Advance Directives Information Provided: No service: No Current occupational status: employed 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 No sign of ecchymosis on his back no step-off Neurological: Awake and alert, no facial droop noted Skin: Warm and dry Psychiatric: Appropriate mood and thoughts Vital Signs: Vital Signs - 24 hr 05/11/25 19:39 05/11/25 21:41 05/12/25 00:14 Temperature 98.5 F 97.6 F 97.9 F Pulse Rate 94 75 78 Respiratory Rate 20 14 Blood Pressure 109/68 109/71 112/69 Pulse Oximetry 100 98 99 Oxygen Delivery Method Room Air Room Air Room Air 05/12/25 01:44 Temperature 97.9 F Pulse Rate 81 Respiratory Rate 11 L Blood Pressure 130/91 H Pulse Oximetry 99 Oxygen Delivery Method Room Air BMI result Body Mass Index 19.0 Medications Administered Discontinued Medications Generic Name Dose Route Start Last Admin Trade Name Wilfredo PRN Reason Stop Dose Admin Diazepam 5 mg 05/11/25 20:12 05/11/25 20:28 Diazepam 5 Mg Tablet PO 05/11/25 20:13 5 mg ONCE ONE Administration Famotidine 20 mg 05/11/25 20:28 05/11/25 20:46 Famotidine/Pf 20 Mg/2 Ml Vial IVPUSH 05/11/25 20:29 20 mg ONCE ONE Administration Lactated Ringer's 1,000 mls @ 999 mls/hr 05/11/25 20:15 05/11/25 21:45 Lr IV 05/11/25 21:15 Infused .Q1H1M JELENA Infusion Ketamine HCl 20 mg 05/11/25 23:08 05/11/25 23:32 Ketamine Hcl/Ns 100 Mg/10 Ml Syringe IVPUSH 05/11/25 23:09 Not Given ONCE ONE Ketamine HCl 20 mg 05/11/25 23:30 05/11/25 23:32 Ketamine Hcl/Ns 50 Mg/5 Ml Syringe IVPUSH 05/11/25 23:31 20 mg ONCE ONE Administration Ketorolac Tromethamine 15 mg 05/11/25 20:12 05/11/25 20:19 Ketorolac Tromethamine 15 Mg/Ml Vial IVPUSH 05/11/25 20:13 15 mg ONCE ONE Administration Medical Decision Making Medical Decision Making [facility] Narrative: 30-year-old male history of type 1 diabetes presented hospital today for evaluation of thoracic spine pain. Plan to give patient a dose of p.o. Valium here IV Toradol, we will also cover patient with IV Pepcid. EKG will be obtained chest x-ray will be obtained. Basic lab work will be obtained for the patient. Review patient's chemistry. No sign of anion gap. No sign of metabolic acidosis. Patient is hyperglycemic glucose in 237. Potassium level is appropriate at 4.4. Patient's CBC did not show any signs of leukocytosis slight anemia at 12.9. We will plan to treat patient for muscular spasm of the thorax is spine. However patient does have history of Gates esophagus therefore IV Pepcid will be provided to him as well. Screening EKG will be obtained chest x-ray will be obtained as well. Patient will be signed out to oncoming provider. 1:50 AM 05/12/2025 (Dr. Brooklynn Lees, D.O.) x-rays do not show acute fracture or other acute process to suggest any emergent pathology for the patient's symptoms today. He has full neurologic function of all of his limbs. No red flags for cauda equina. Low risk for major adverse cardiac event and pulmonary embolism. Patient feeling significantly improved after ketamine. Using shared decision making, plan for discharge home to follow-up with primary care and/or specialist. Patient understands and agrees with plan for discharge. Discharged home in stable condition. Differential Diagnosis Differential Diagnoses: The differential diagnosis associated with the presentation includes Cardiac arrhythmia, Thoracic muscle spasm, Pneumothorax, pneumonia Lab Data MDM Lab Attestation statement: I reviewed the patient's lab results. 05/11/25 19:56 05/11/25 19:56 Labs: Lab Results 05/11/25 05/11/25 Range/Units 19:33 19:56 WBC 8.1 (4.8-10.8) X10*3/uL RBC 4.85 (4.60-5.80) X10*6/uL Hgb 12.9 L (14.0-18.0) g/dl Hct 37.4 L (42.0-52.0) % MCV 77.1 L (80.0-98.0) fL MCH 26.6 L (27.0-33.0) pg MCHC 34.5 (31.0-36.0) g/dl RDW 13.2 (11.0-16.0) % Plt Count 262 (160-400) X10*3/uL MPV 9.7 (9.4-12.4) fL Immature Gran % (Auto) 0.1 (0.0-0.4) % Neut % (Auto) 68.0 (45-73) % Lymph % (Auto) 24.6 (20-40) % Barbour % (Auto) 6.1 (2-11) % Eos % (Auto) 0.6 (0-4) % Baso % (Auto) 0.6 (0-2) % Lymph # (Auto) 2.0 (1.2-4.9) X10*3/uL Barbour # (Auto) 0.5 (0.1-1.2) X10*3/uL Eos # (Auto) 0.1 (0.0-0.4) X10*3/uL Baso # (Auto) 0.1 (0.0-0.2) X10*3/uL Abs Immat Gran (auto) 0.01 (0.00-0.03) X10*3/uL Absolute Neuts (auto) 5.5 (2.0-8.3) x10*3/uL Absolute Nucleated RBC 0.000 (0.0-0.012) X10*3/uL Nucleated RBC % (auto) 0.0 (0.0-0.2) /100WBC Sodium 133 L (135-145) mmol/L Potassium 4.4 (3.3-5.1) mmol/L Chloride 101 (96-108) mmol/L Carbon Dioxide 22 (22-29) mmol/L Anion Gap 14 (12-20) BUN 12 (9-16) mg/dL Creatinine 0.71 (0.5-1.4) mg/dL Estim Creat Clear Calc 137.8 Estimated GFR > 60 POC Glucose 237 H (60-115) mg/dL Random Glucose 245 H (60-115) mg/dL Calcium 9.3 (8.4-10.2) mg/dL Total Bilirubin 0.6 (0.0-1.0) mg/dL AST 25 (5-37) U/L ALT 19 (0-40) U/L Alkaline Phosphatase 76 (39-117) U/L Total Protein 7.4 (6.5-8.0) g/dL Albumin 4.2 (3.5-5.0) g/dL Lipase 5 L (8-78) U/L Radiology Impression Discussion of test interpretation with radiology: I have reviewed the radiologist's reading. External Record Review External record reviewed: Inpatient record Prescription Management I considered prescription management with: Pain Medication Chronic Conditions Patient?s care impacted by: Diabetes Social Determinants Patient?s care significantly limited by Social Determinants of Health including: Other Social Determinant of Health Discharge Plan Discharge Clinical Impression: Pain in thoracic spine, Acute thoracic myofascial strain Patient Disposition: Home, Self-Care Instructions: Muscle Strain (ED) Additional Instructions: DIAGNOSIS & TREATMENT: You were seen in the Emergency Department for your chest and back discomfort. We performed an EKG, laboratory work and chest and throacic spine xrays which did not reveal any acute abnormalities that would explain your symptoms. FURTHER CARE: We have not found any emergent physical exam or lab abnormalities that would require admission to the hospital today. Many people who come to the ER with chest discomfortn do not leave with a specific diagnosis at the end of their visit. In the Emergency Department we try to make sure that there is no emergent problem that needs admission to the hospital or antibiotics right now. This does not mean that your evaluation is complete--please be sure to follow up with your regular doctor as additional testing as an outpatient may be indicated. Please be certain to drink plenty of fluids over the next several days. WHEN YOU SHOULD BE SEEN NEXT: Please follow-up with your primary care provider within the next 2-3 days for reevaluation of your symptoms. WHEN TO RETURN TO THE ED: Monitor your symptoms closely and return to the emergency department immediately for any new/worsening symptoms including: Worsening chest pain, difficulty breathing, fevers greater than 100 degrees, passing out, any new symptom that concerns you. Call 911 with any medical emergency. Prescriptions: New gabapentin 300 mg capsule 300 mg PO TID Qty: 14 0RF No Action (DME) Dexcom G7 Bill Sorter Misc See Rx Instructions .ROUTE .MEDSUPPLY Qty: 1 1RF Rx Instructions: As directed (DME) Ketone Urine Test Strip See Rx Instructions .ROUTE .MEDSUPPLY Qty: 25 3RF Rx Instructions: As directed prn glucose over 250, nausea/vomiting tid Baqsimi 3 mg/actuation spray,non-aerosol 3 mg intranasal ONCE MDD 6mg may repeat in 15 minutes PRN (Reason: unresponsive hypoglycemia) 30 Days Qty: 2 1RF (DME) FreeStyle Lite Strips Strip See Rx Instructions .Route Qty: 100 3RF Rx Instructions: As directed tests 3 X/day (DME) blood-glucose meter [FreeStyle Lite Meter] Kit See Rx Instructions .Route Qty: 1 0RF Rx Instructions: As directed (DME) lancets [FreeStyle Lancets] 28 gauge misc See Rx Instructions .Route Qty: 100 0RF Rx Instructions: As directed tests 3 X/day pantoprazole [Protonix] 40 mg tablet,delayed release (DR/EC) 40 mg PO DAILY@0630 promethazine 25 mg tablet 25 mg PO TID PRN (Reason: nausea/vomiting) ondansetron 4 mg tablet,disintegrating 4 mg PO Q8H PRN (Reason: nausea and vomiting) Qty: 20 0RF levofloxacin 500 mg tablet 500 mg PO DAILY 10 Days Qty: 10 0RF morphine 15 mg tablet 15 mg PO Q6H PRN (Reason: pain) Qty: 14 0RF Rx Instructions: Partial Fill upon patient request. ketorolac 10 mg tablet 10 mg PO Q6H PRN (Reason: pain) 5 Days Qty: 20 0RF ondansetron 4 mg tablet,disintegrating 4 mg PO Q6-8H PRN (Reason: nausea and vomiting) Qty: 14 0RF albuterol sulfate 90 mcg/actuation HFA aerosol inhaler 2 puff inhalation QID PRN (Reason: shortness of breath or wheezing) Qty: 6.7 0RF cyclobenzaprine 10 mg tablet 10 mg PO TID Qty: 10 0RF naproxen 500 mg tablet 500 mg PO BID PRN (Reason: pain) Qty: 30 0RF cyclobenzaprine 10 mg tablet 10 mg PO TID PRN (Reason: muscle spasm) Qty: 12 0RF lidocaine [Lidoderm] 5 % adhesive patch,medicated 1 patch topical DAILY Qty: 15 0RF Rx Instructions: leave on most painful area for up to 12 hrs levofloxacin 500 mg tablet 500 mg PO DAILY 10 Days Qty: 10 0RF acetaminophen 500 mg tablet 500 mg PO Q6H PRN insulin aspart U-100 [Novolog FlexPen U-100 Insulin] 100 unit/mL (3 mL) insulin pen 1 sliding scale dose subcut TIDWMEAL MDD 44 units 30 Days Qty: 15 11RF Rx Instructions: 1 unit for every 35 points over 135 1 unit for every 15 carbohydrates insulin degludec [Tresiba FlexTouch U-200] 200 unit/mL (3 mL) insulin pen 18 unit subcut DAILY 30 Days Qty: 6 11RF (DME) Dexcom G7 Sensor Device See Rx Instructions .ROUTE .MEDSUPPLY Qty: 6 6RF Rx Instructions: As directed every 10 days (DME) pen needle, diabetic 32 gauge x 5/32 needle See Rx Instructions .ROUTE .MEDSUPPLY Qty: 150 6RF Rx Instructions: As directed qid Print Language: Sierra Leonean
[2025-05-11 20:04] LABS: MANUAL DIFF FLAG NO
[2025-05-11 20:08] LABS: Hematocrit 37.4 % (42.0-52.0); Hemoglobin 12.9 g/dl (14.0-18.0); Imm Gran Abs Auto 0.01 X10*3/uL (0.00-0.03); Imm Gran Pct Auto 0.1 % (0.0-0.4); Lymphocytes Absolute Auto 2.0 X10*3/uL (1.2-4.9); Mean Corpuscular HGB Conc 34.5 g/dl (31.0-36.0); Mean Corpuscular Hemoglobin 26.6 pg (27.0-33.0); Mean Corpuscular Volume 77.1 fL (80.0-98.0); NRBC Abs Auto 0.000 X10*3/uL (0.0-0.012); NRBC Pct Auto 0.0 /100WBC (0.0-0.2); Platelet Count 262 X10*3/uL (160-400); Red Blood Count 4.85 X10*6/uL (4.60-5.80); White Blood Count 8.1 X10*3/uL (4.8-10.8)
--- OUTSIDE RECORDS SUMMARY | 2025-05-11 20:09 | XMS_ITS | Encounter Summary ---
Author Organization [employer] Address [address] [place] [address] Care Team Providers Care Kitchen Designer Name Role Phone Amna Urrutia Primary Care Provider [phone] Adele, Everett ROSE Primary Care Provider [phone] Sahil Chen CNP Primary Care Provider [phone] Reason for Visit * Reason Onset Date Comments Appointment Request 09/08/2023 Encounter Details Date Type Department Care Team ([facility] Contact Info) Description 09/08/2023 Telephone [facility] MED[facility]INE [address] [place] [address] Amna Urrutia FNP [address] [place] [address] Appointment Request Social History Tobacco Use Types [...] to reschedule missed appt on 09/06 however repairer typewriter was not able to offer apptdue to the provider did not have any availably documented in this encounter Plan of Treatment Upcoming Encounters Date Type Department Care Team (Late st Contact Info) Description 05/28/2025 10:45 AM EDT Office Visit [facility]S [address] [place], [place] [phone] Sahil Chen, SERA [address] [place] [address] documented as of this encounter Visit Diagnoses Not on filedocumented in this encounter Additional Health Concerns Assessment Noted Time PHQ-9 Depression Total Score: 16 023 8:52 AM EDT documented as of this encounter Care Teams Kitchen Designer Relationship Specialty Start Date End Date Amna Urrutia FNP [address] [place], [place] [phone] PCP - General Family Medicine 01/01/23 04/18/24 Everett Angulo MD [address] [place], [place] [phone] PCP - General Internal Medicine 04/19/24 10/08/24 Sahil Chen CNP [address] [place] [address] PCP - General Family Medicine 10/09/24 Chris Pack Jr WhitewasherCommunity Outreach Manager 09/04/24 documented as of this encounter
--- OUTSIDE RECORDS SUMMARY | 2025-05-11 20:09 | XMS_ITS | Encounter Summary ---
Author Organization [employer] Address [address] [place] [address] Care Team Providers Care Icicle Machine Operator Name Role Phone Amna Urrutia Primary Care Provider [phone] Adele, Everett ROSE Primary Care Provider [phone] Sahil Chen CNP Primary Care Provider [phone] Reason for Visit * Reason Onset Date Comments Med Refill 07/28/2023 Encounter Details Date Type Department Care Team (Late st Contact Info) Description 07/28/2023 Refill [facility] MED[facility]INE [address] [place] [address] Denice Rubin MD [address] [place] [address] Social History Tobacco Use Types Packs/Day Years [...] Description 05/28/2025 10:45 AM EDT Office Visit [facility] MED & PEDS [address] [place], [place] [phone] Sahil Chen CNP [address] [place], [place] [phone] documented as of this encounter Visit Diagnoses Not on filedocumented in this encounter Additional Health Concerns Assessment Noted Time PHQ-9 Depression Total Score: 16 023 8:52 AM EDT documented as of this encounter Care Teams Icicle Machine Operator Relationship Specialty Start Date End Date Amna Urrutia FNP [address] [place] [address] PCP - General Family Medicine 01/01/23 04/18/24 Everett Angulo MD [address] [place] [address] PCP - General Internal Medicine 04/19/24 10/08/24 Sahil Chen CNP [address] [place] [address] PCP - General Family Medicine 10/09/24 Chris Pack Jr Supervisor Carbon ElectrodesPantry Goods Maker 09/04/24 documented as of this encounter
--- OUTSIDE RECORDS SUMMARY | 2025-05-11 20:09 | XMS_ITS | Encounter Summary ---
Author Organization [employer] Address [address] [place] [address] Care Team Providers Care Junk Removal Specialist Name Role Phone Amna Urrutia Primary Care Provider [phone] Name, Everett ROSE Primary Care Provider [phone] Sahil Chen CNP Primary Care Provider [phone] Reason for Visit * Reason Comments Med Refill Encounter Details Date Type Department Care Team ([facility] st Contact Info) Description 09/11/2023 Refill [facility]INE [address] [place], [place] [phone] Amna Urrutia FNP [address] [place] [address] Type 1 diabetes mellitus with hyperglycemia ([facility]) Social History [...] Description 05/28/2025 10:45 AM EDT Office Visit [facility] MED & PEDS [address] [place], [place] [phone] Sahil Chen CNP [address] [place], [place] [phone] documented as of this encounter Visit Diagnoses Diagnosis Type 1 diabetes mellitus with hyperglycemia (CMS/HCC) documented in this encounter Additional Health Concerns Assessment Noted Time PHQ-9 Depression Total Score: 16 023 8:52 AM EDT documented as of this encounter Care Teams Junk Removal Specialist Relationship Specialty Start Date End Date Amna Urrutia FNP [address] [place] [address] PCP - General Family Medicine 01/01/23 04/18/24 Everett Angulo MD [address] [place] [address] PCP - General Internal Medicine 04/19/24 10/08/24 Sahil Chen CNP [address] [place] [address] PCP - General Family Medicine 10/09/24 Chris Pack Jr Inhalation TherapistCoordinating Producer 09/04/24 documented as of this encounter
--- OUTSIDE RECORDS SUMMARY | 2025-05-11 20:09 | XMS_ITS | Encounter Summary ---
Author Organization [employer] Address [address] [facility] [address] [place] [address] Care Team Providers Care Equipment Analyst Name Role Phone Amna Urrutia Primary Care Provider [phone] Adele, Everett ROSE Primary Care Provider [phone] Sahil Chen CNP Primary Care Provider [phone] Reason for Visit * Reason Onset Date Comments Med Refill 07/15/2023 Encounter Details Date Type Department Care Team (Late st Contact Info) Description 07/15/2023 Refill [facility] MEDICINE [address] [place] [address] Sandra Leal MD [address] [place] [address] Social History Tobacco Use Types Packs/Day Years [...] Description 05/28/2025 10:45 AM EDT Office Visit [facility] MED [facility] PEDS [address] [place], [place] [phone] Sahil Chen CNP [address] [place], [place] [phone] documented as of this encounter Visit Diagnoses Not on filedocumented in this encounter Additional Health Concerns Assessment Noted Time PHQ-9 Depression Total Score: 16 023 8:52 AM EDT documented as of this encounter Care Teams Equipment Analyst Relationship Specialty Start Date End Date Amna Urrutia FNP [address] [place] [address] PCP - General Family Medicine 01/01/23 04/18/24 Everett Angulo MD [address] [place] [address] PCP - General Internal Medicine 04/19/24 10/08/24 Sahil Chen CNP [address] [place] [address] PCP - General Family Medicine 10/09/24 Chris Pack Jr Yardage Tufting Machine OperatorWalking Dragline Operator 09/04/24 documented as of this encounter
--- OUTSIDE RECORDS SUMMARY | 2025-05-11 20:09 | XMS_ITS | Encounter Summary ---
Author Organization [employer] Address [address] [place] [address] Care Team Providers Care Fabric Separator Operator Name Role Phone Amna Urrutia Primary Care Provider [phone] Name, Everett ROSE Primary Care Provider [phone] Sahil Chen CNP Primary Care Provider [phone] Reason for Visit * Reason Onset Date Comments Med Refill 07/28/2023 Encounter Details Date Type Department Care Team (Late st Contact Info) Description 07/28/2023 Refill [facility] MEDICINE [address] [place] [address] Amna Urrutia FNP [address] [place] [address] Social History Tobacco Use Types Packs/Day Years [...] Description 05/28/2025 10:45 AM EDT Office Visit [facility] MED & PEDS [address] [place], [place] [phone] Sahil Chen CNP [address] [place], [place] [phone] documented as of this encounter Visit Diagnoses Not on filedocumented in this encounter Additional Health Concerns Assessment Noted Time PHQ-9 Depression Total Score: 16 023 8:52 AM EDT documented as of this encounter Care Teams Fabric Separator Operator Relationship Specialty Start Date End Date Amna Urrutia FNP [address] [place] [address] PCP - General Family Medicine 01/01/23 04/18/24 Everett Angulo MD [address] [place] [address] PCP - General Internal Medicine 04/19/24 10/08/24 Sahil Chen CNP [address] [place] [address] PCP - General Family Medicine 10/09/24 Chris Pack Jr Specialist Employee Labor RelationsProcess Validation Engineer 09/04/24 documented as of this encounter
--- OUTSIDE RECORDS SUMMARY | 2025-05-11 20:09 | XMS_ITS | Encounter Summary ---
Author Organization [employer] Address 75 [facility] [address] 7t [place] [address] Care Team Providers Care Wet Process Miller Head Assistant Name Role Phone Name, Everett ROSE Primary Care Provider [phone] Sahil Chne CNP Primary Care Provider [phone] Reason for Visit * Reason Comments Med Refill Encounter Details Date Type Department Care Team (Late st Contact Info) Description 05/03/2024 Refill [facility] [address] [place], [place] [phone] Amna Urrutia FNP 230 [place] [address] Type 1 diabetes mellitus with hyperglycemia (CMS/[facility]) Social History Tobacco [...] Description 05/28/2025 10:45 AM EDT Office Visit [facility] MED & PEDS 505 [place] [address] Sahil Chen CNP 505 [place] [address] documented as of this encounter Visit Diagnoses Diagnosis Type 1 diabetes mellitus with hyperglycemia (CMS/HCC) documented in this encounter Additional Health Concerns Assessment Noted Time PHQ-9 Depression Total Score: 20 024 2:42 PM EDT documented as of this encounter Care Teams Wet Process Miller Head Assistant Relationship Specialty Start Date End Date Name, MD Everett 230 [place] [address] PCP - General Internal Medicine 04/19/24 10/08/24 Sahil Chen CNP 230 [place] [address] PCP - General Family Medicine 10/09/24 Chris Pack Jr Optoelectronics EngineerCar Painter 09/04/24 documented as of this encounter
--- OUTSIDE RECORDS SUMMARY | 2025-05-11 20:09 | XMS_ITS | Encounter Summary ---
Author Organization [facility] Address [address] [place] [address] Phone Care Team Providers Care Char Filter Operator Helper Name Role Phone Santos Mueller MD Primary Care Provider [phone] Encounter Details Date Type Department Care Team (Late st Contact Info) Description 07/28/2023 Documentation Only [facility], [address] [place] [address] Santos Mueller MD 230 [place] [address] Social History Tobacco Use Types [...] on filedocumented in this encounter Care Teams Char Filter Operator Helper Relationship Specialty Start Date End Date Santos Mueller MD [address] [place] [address] PCP - General Emergency Medicine 07/28/23 documented as of this encounter
--- OUTSIDE RECORDS SUMMARY | 2025-05-11 20:09 | XMS_ITS | Encounter Summary ---
Author Organization [employer] Address [address] [facility] [address] 7t [place] [address] Care Team Providers Care Programming Engineer Name Role Phone Amna Urrutia Primary Care Provider [phone] Adele, Everett ROSE Primary Care Provider [phone] Sahil Chen CNP Primary Care Provider [phone] Reason for Visit * Reason Comments Med Refill Encounter Details Date Type Department Care Team ([facility] st Contact Info) Description 05/30/2023 Refill [facility] MED[facility] 230 [place] [address] Amna Urrutia FNP [address] [place] [address] Social History Tobacco Use Types Packs/Day Years [...] Description 05/28/2025 10:45 AM EDT Office Visit [facility] MED & PEDS 505 [place], [place] [phone] Sahil Chen CNP 505 [place], [place] [phone] documented as of this encounter Visit Diagnoses Not on filedocumented in this encounter Additional Health Concerns Assessment Noted Time PHQ-9 Depression Total Score: 16 023 8:52 AM EDT documented as of this encounter Care Teams Programming Engineer Relationship Specialty Start Date End Date Amna Urrutia FNP [address] [place] [address] PCP - General Family Medicine 01/01/23 04/18/24 Everett Angulo MD [address] [place] [address] PCP - General Internal Medicine 04/19/24 10/08/24 Sahil Chen CNP [address] [place] [address] PCP - General Family Medicine 10/09/24 Chris Pack Jr Surface Water TechnicianDip Stand Loader 09/04/24 documented as of this encounter
--- OUTSIDE RECORDS SUMMARY | 2025-05-11 20:09 | XMS_ITS | Encounter Summary ---
Author Organization [employer] Address 75 [facility] [address] 7t [place] [address] Care Team Providers Care Garbage Collection Supervisor Name Role Phone Amna Urrutia Primary Care Provider [phone] Adele, Everett ROSE Primary Care Provider [phone] Sahil Chen CNP Primary Care Provider [phone] Encounter Details Date Type Department Care Team (Late st Contact Info) Description 06/28/2023 Orders Only [facility] 230 [place], [place] [phone] Santos Mueller MD 230 [place] [address] Social History Tobacco Use Types Packs/Day Years [...] Description 05/28/2025 10:45 AM EDT Office Visit [facility] MED & PEDS 505 [place], [place] [phone] Sahil Chen CNP 505 [place], [place] [phone] documented as of this encounter Visit Diagnoses Not on filedocumented in this encounter Additional Health Concerns Assessment Noted Time PHQ-9 Depression Total Score: 16 023 8:52 AM EDT documented as of this encounter Care Teams Garbage Collection Supervisor Relationship Specialty Start Date End Date Amna Urrutia FNP 230 [place] [address] PCP - General Family Medicine 01/01/23 04/18/24 Everett Angulo MD 230 [place] [address] PCP - General Internal Medicine 04/19/24 10/08/24 Sahil Chen CNP 230 [place] [address] PCP - General Family Medicine 10/09/24 Chris Pack Jr Kitchen LeadRehab Trainer 09/04/24 documented as of this encounter
--- OUTSIDE RECORDS SUMMARY | 2025-05-11 20:09 | XMS_ITS | Clinical Summary ---
Author Organization [facility] Address 175 [place] [address] Phone Care Team Providers Care High Worker Name Role Phone Sahil Chen NP Primary Care Provider [phone] Allergies Active Allergy Reactions Criticality Noted Date Comments Diphenhydramine Hcl 03/19/2025 Haloperidol Shortness of breath,Unknown High 10/18/2022 Jaw locks up and has tremors Other Reaction(s): Difficulty Swallowing, dystonic reaction Medications No known medications Encounters Date Type Department Care Team Description 03/19/2025 3:00 PM EDT Consult [facility] - [place] [address] 175 [facility] [address] [place] [address] Devan Alonso, FRANK Ingrowing nail (Primary Dx); Local infection of the skin and subcutaneous tissue, unspecified; Type 1 diabetes mellitus without complications (CMS/[facility] V24, CMS/[facility] V28) from Last 3 Months Social History [...] PM EST Office Visit [facility] [place] [address] [address] Devan Alosno, DPM [address] [address] Health Maintenance Due Date Last Done Comments Diabetes: Annual Foot Exam 02/07/2006 Diabetes: Annual Retina Eye Exam 02/07/2006 Hepatitis B Vaccines (1 of 3 - 19+ 3-dose series) 02/07/2015 Pneumococcal Vaccine: Pediatrics (0 to 5 Years) and At-Risk Patients (6 to 49 Years) (1 of 2 - PCV) 02/07/2015 HIV Screening 03/13/2024 Social Influencers of Health Screening 03/13/2024 Depression Screening 08/21/2024 Diabetes: Annual Urine Albumin-Creatinine Ratio (uACR) 01/01/2025 COVID-19 Vaccine ( - 2023-2 5 season) 2025 Influenza Vaccine (#1) 2025 06/08/2016 Diabetes: Blood [...] topic Insurance MEDICAID - [place] Care Teams High Worker Relationship Specialty Start Date End Date Sahil Chen NP [address] [place] [address] PCP - General Family Medicine 01/01/25
--- OUTSIDE RECORDS SUMMARY | 2025-05-11 20:09 | XMS_ITS | Encounter Summary ---
Author Organization [employer] Address [address] [facility] [address] 7t [place] [address] Care Team Providers Care Animal Handler Name Role Phone Name, Everett ROSE Primary Care Provider [phone] Sahil Chen CNP Primary Care Provider [phone] Encounter Details Date Type Department Care Team (Late st Contact Info) Description 04/21/2024 Orders Only [facility] MED & PEDS [address] [place], [place] [phone] Amna Urrutia FNP [address] [place], [place] [phone] Social History Tobacco Use Types Packs/Day Years [...] Description 05/28/2025 10:45 AM EDT Office Visit [facility] MED & PEDS 505 [place] [address] Sahil Chen CNP 505 [place] [address] documented as of this encounter Visit Diagnoses Not on filedocumented in this encounter Additional Health Concerns Assessment Noted Time PHQ-9 Depression Total Score: 20 024 2:42 PM EDT documented as of this encounter Care Teams Animal Handler Relationship Specialty Start Date End Date Name, MD Everett 230 [place] [address] PCP - General Internal Medicine 04/19/24 10/08/24 Sahil Chen CNP 230 [place] [address] PCP - General Family Medicine 10/09/24 Chris Pack Jr Technology TeacherOrdnance Officer 09/04/24 documented as of this encounter
--- OUTSIDE RECORDS SUMMARY | 2025-05-11 20:09 | XMS_ITS | Encounter Summary ---
Author Organization [employer] Address [address] [facility] [address] 7t [place] [address] Care Team Providers Care Certified Coatings Inspector Name Role Phone Amna Urrutia Primary Care Provider [phone] Name, Everett ROSE Primary Care Provider [phone] Sahil Chen CNP Primary Care Provider [phone] Reason for Visit * Reason Onset Date Comments Med Refill 09/27/2023 Encounter Details Date Type Department Care Team (Late st Contact Info) Description 09/27/2023 Refill [facility] 230 [place] [address] Amna Urrutia FNP 230 [place] [address] Type 1 diabetes mellitus with hyperglycemia ([facility]/HCC) Social History Tobacco Use Types Packs/Day [...] Description 05/28/2025 10:45 AM EDT Office Visit [facility] MED & PEDS 505 [place], [place] [phone] Sahil Chen CNP 505 [place], [place] [phone] documented as of this encounter Visit Diagnoses Diagnosis Type 1 diabetes mellitus with hyperglycemia (CMS/HCC) documented in this encounter Additional Health Concerns Assessment Noted Time PHQ-9 Depression Total Score: 16 023 8:52 AM EDT documented as of this encounter Care Teams Certified Coatings Inspector Relationship Specialty Start Date End Date Amna Urrutia FNP 230 [place] [address] PCP - General Family Medicine 01/01/23 04/18/24 Everett Angulo MD 230 [place], [place] [phone] PCP - General Internal Medicine 04/19/24 10/08/24 Sahil Chen CNP 230 [place] [address] PCP - General Family Medicine 10/09/24 Chris Pack Jr Parts CounterpersonRouting Equipment Tender 09/04/24 documented as of this encounter
--- OUTSIDE RECORDS SUMMARY | 2025-05-11 20:09 | XMS_ITS | Encounter Summary ---
Author Organization [employer] Address [address] [facility] [address] 7t [place] [address] Care Team Providers Care Telephone Coin Box Collector Name Role Phone Amna Urrutia Primary Care Provider [phone] Adele, Everett ROSE Primary Care Provider [phone] Sahil Chen CNP Primary Care Provider [phone] Reason for Visit * Reason Onset Date Comments reaction to medication 10/24/2022 Encounter Details Date Type Department Care Team ([facility] st Contact Info) Description 10/24/2022 Telephone [facility]ULT [facility] 230 [place] [address] Marycruz Oseguera DDS 230 [place] [address] reaction to medication Social History Tobacco Use [...] Office Visit [facility] 505 [place] [address] Sahil Chen CNP 505 [place] [address] documented as of this encounter Visit Diagnoses Not on filedocumented in this encounter Care Teams Telephone Coin Box Collector Relationship Specialty Start Date End Date Amna Urrutia FNP [address] [place] [address] PCP - General Family Medicine 01/01/23 04/18/24 Everett Angulo MD [address] [place] [address] PCP - General Internal Medicine 04/19/24 10/08/24 Sahil Chen CNP [address] [place] [address] PCP - General Family Medicine 10/09/24 Chris Pack Jr Lanolin Plant OperatorTank Car Loader 09/04/24 documented as of this encounter
--- OUTSIDE RECORDS SUMMARY | 2025-05-11 20:09 | XMS_ITS | Encounter Summary ---
Author Organization [employer] Address [address] [facility] [address] 7t [place] [address] Care Team Providers Care Funeral Planning Counselor Name Role Phone Amna Urrutia Primary Care Provider [phone] Adele, Everett ROSE Primary Care Provider [phone] Sahil Chen CNP Primary Care Provider [phone] Reason for Visit * Reason Onset Date Comments Med Refill 07/15/2023 Encounter Details Date Type Department Care Team (Late st Contact Info) Description 07/15/2023 Refill [facility] 230 [place], [place] [phone] Amna Urrutia FNP 230 [place] [address] Social History Tobacco Use Types Packs/Day Years [...] [facility] 505 [place], [place] [phone] Sahil Chen CNP 505 [place], [place] [phone] documented as of this encounter Visit Diagnoses Not on filedocumented in this encounter Additional Health Concerns Assessment Noted Time PHQ-9 Depression Total Score: 16 023 8:52 AM EDT documented as of this encounter Care Teams Funeral Planning Counselor Relationship Specialty Start Date End Date Amna Urrutia FNP [address] [place] [address] PCP - General Family Medicine 01/01/23 04/18/24 Everett Angulo MD [address] [place] [address] PCP - General Internal Medicine 04/19/24 10/08/24 Sahil Chen CNP [address] [place] [address] PCP - General Family Medicine 10/09/24 Chris Pack Jr Senior Contracts AdministratorAsphalt Blender 09/04/24 documented as of this encounter
--- OUTSIDE RECORDS SUMMARY | 2025-05-11 20:09 | XMS_ITS | Encounter Summary ---
Author Organization [employer] Address 75 [facility] 7t [place] [address] Care Team Providers Care Employee Benefits Administrator Name Role Phone Amna Urrutia Primary Care Provider [phone] Name, Everett ROSE Primary Care Provider [phone] Sahil Chen CNP Primary Care Provider [phone] Encounter Details Date Type Department Care Team (Late Contact Info) Description 10/21/2022 Abstract [facility] ADULT DENTAL 230 [place] [address] Marycruz Oseguera DDS 230 [place] [address] Social History Tobacco Use Types Packs/Day Years [...] Description 05/28/2025 10:45 AM EDT Office Visit [facility] MED & PEDS 505 [place], [place] [phone] Sahil Chen CNP 505 [place], [place] [phone] documented as of this encounter Visit Diagnoses Not on filedocumented in this encounter Care Teams Employee Benefits Administrator Relationship Specialty Start Date End Date Amna Urrutia FNP 230 [place], [place] [phone] PCP - General Family Medicine 01/01/23 04/18/24 Everett Angulo MD 230 [place], [place] [phone] PCP - General Internal Medicine 04/19/24 10/08/24 Sahil Chen CNP 230 [place] [address] PCP - General Family Medicine 10/09/24 Chris Pack Jr Inventory Control SpecialistInterpreter 09/04/24 documented as of this encounter
--- OUTSIDE RECORDS SUMMARY | 2025-05-11 20:09 | XMS_ITS | Encounter Summary ---
Author Organization [employer] Address 75 [facility] 7t [place] [address] Care Team Providers Care Merchandise Processor Name Role Phone Amna Urrutia Primary Care Provider [phone] Adele, Everett ROSE Primary Care Provider [phone] Sahil Chen CNP Primary Care Provider [phone] Reason for Visit * Reason Onset Date Comments Med Refill 07/17/2023 Encounter Details Date Type Department Care Team (Late st Contact Info) Description 07/17/2023 Refill [facility] MEDICINE 230 [place] [address] Amna Urrutia FNP 230 [place] [address] Social History Tobacco Use Types Packs/Day Years [...] 05/28/2025 10:45 AM EDT Office Visit [facility] MED & PEDS 505 [place], [place] [phone] Sahil Chen CNP 505 [place], [place] [phone] documented as of this encounter Visit Diagnoses Not on filedocumented in this encounter Additional Health Concerns Assessment Noted Time PHQ-9 Depression Total Score: 16 023 8:52 AM EDT documented as of this encounter Care Teams Merchandise Processor Relationship Specialty Start Date End Date Amna Urrutia FNP 230 [place] [address] PCP - General Family Medicine 01/01/23 04/18/24 Everett Angulo MD [address] [place] [address] PCP - General Internal Medicine 04/19/24 10/08/24 Sahil Chen CNP [address] [place] [address] PCP - General Family Medicine 10/09/24 Chris Pack Jr Pump Servicer SupervisorRecorder Helper Seismograph 09/04/24 documented as of this encounter
--- OUTSIDE RECORDS SUMMARY | 2025-05-11 20:09 | XMS_ITS | Encounter Summary ---
Author Organization [employer] Address 75 [facility] 7t [place] [address] Care Team Providers Care Tone Cabinet Assembler Name Role Phone Amna Urrutia Primary Care Provider [phone] Adele, Everett ROSE Primary Care Provider [phone] Sahil Chen CNP Primary Care Provider [phone] Reason for Visit * Reason Onset Date Comments Med Refill 05/30/2023 Encounter Details Date Type Department Care Team (Late st Contact Info) Description 05/30/2023 Refill [facility] MEDICINE 230 [place] [address] Amna Urrutia FNP 230 [place] [address] Social History Tobacco Use Types Packs/Day Years [...] 10:45 AM EDT Office Visit [facility] MED & PEDS 505 [place], [place] [phone] Sahil Chen CNP 505 [place], [place] [phone] documented as of this encounter Visit Diagnoses Not on filedocumented in this encounter Additional Health Concerns Assessment Noted Time PHQ-9 Depression Total Score: 16 023 8:52 AM EDT documented as of this encounter Care Teams Tone Cabinet Assembler Relationship Specialty Start Date End Date Amna Urrutia FNP 230 [place] [address] PCP - General Family Medicine 01/01/23 04/18/24 Everett Angulo MD [address] [place] [address] PCP - General Internal Medicine 04/19/24 10/08/24 Sahil Chen CNP [address] [place] [address] PCP - General Family Medicine 10/09/24 Chris Pack Jr Value AnalystCanal Structure Operator 09/04/24 documented as of this encounter
--- OUTSIDE RECORDS SUMMARY | 2025-05-11 20:09 | XMS_ITS | Clinical Summary ---
Author Organization [facility], Address [address] [place] [address] [place] [address] Phone Care Team Providers Care Pantomimist Name Role Phone Santos Mueller MD Primary Care Provider [phone] Allergies Active Allergy Reactions Criticality Noted Date [...] 2025 06/08/2016 Insurance Medicaid [place] Care Teams Pantomimist Relationship Specialty Start Date End Date Santos Mueller MD [address] [place] [phone] PCP - General Emergency Medicine 07/28/23
--- OUTSIDE RECORDS SUMMARY | 2025-05-11 20:09 | XMS_ITS | Encounter Summary ---
Author Organization [employer] Address [address] [facility] [address] 7t [place] [address] Care Team Providers Care Surgical Scrub Technician Name Role Phone Amna Urrutia Primary Care Provider [phone] Adele, Everett ROSE Primary Care Provider Sahil Chen CNP Primary Care Provider [phone] Reason for Visit * Reason Comments Med Refill Encounter Details Date Type Department Care Team ([facility] st Contact Info) Description 08/29/2023 Refill [facility] MEDICINE 230 [place] [address] Carlos Alberto Villavicencio MD 230 [place] [address] Type 1 diabetes mellitus with hyperglycemia (CMS/HCC) [...] Description 05/28/2025 10:45 AM EDT Office Visit [facility] MED & PEDS 505 [place], [place] [phone] Sahil Chen CNP 505 [place], [place] [phone] documented as of this encounter Visit Diagnoses Diagnosis Type 1 diabetes mellitus with hyperglycemia (CMS/HCC) documented in this encounter Additional Health Concerns Assessment Noted Time PHQ-9 Depression Total Score: 16 023 8:52 AM EDT documented as of this encounter Care Teams Surgical Scrub Technician Relationship Specialty Start Date End Date Amna Urrutia FNP 230 [place] [address] PCP - General Family Medicine 01/01/23 04/18/24 Everett Angulo MD 230 [place], [place] [phone] PCP - General Internal Medicine 04/19/24 10/08/24 Sahil Chen CNP [address] [place] [address] PCP - General Family Medicine 10/09/24 Chris Pack Jr Raw Stock Machine LoaderCover Making Machine Operator 09/04/24 documented as of this encounter
--- OUTSIDE RECORDS SUMMARY | 2025-05-11 20:09 | XMS_ITS | Encounter Summary ---
Author Organization [employer] Address 75 [facility] 7t [place] [address] Care Team Providers Care Rrt Name Role Phone Amna Urrutia Primary Care Provider [phone] Adele, Everett ROSE Primary Care Provider [phone] Sahil Chen CNP Primary Care Provider [phone] Reason for Visit * Reason Onset Date Comments Nurse Triage 05/30/2023 Encounter Details Date Type Department Care Team ([facility] st Contact Info) Description 05/30/2023 Telephone [facility] MEDICINE 230 [place] [address] Amna Urrutia FNP [address] [place] [address] Nurse Triage Social History Tobacco Use Types [...] obtain discharge summary for patient seen at [facility] 05/29/23 following head injury at work. Scheduled for follow up below Future Appointments Date Time Provider Department Center 05/31/2023 11:30 AM Denice Rubin MD [facility] * Telephone Encounter - Marline Vega RN - 05/30/2023 1:27 PM EDT Call to Bradford Torres, reports having been seen at [facility] 05/29 due to [...] 05/31/2023 11:30 AM Denice Rubin MD [facility] Video visit offer not recorded Positive Triage [...] You become worse * Telephone Encounter - oJy Cisneros - 05/30/2023 12:26 PM EDT Patient calling to report ED visit on 05/29/23 and states is still in pain ( show card writer was un able to take all details information due to call hanging up ) . Patient advised will forward to triage nursefor follow up. documented in this encounter Plan of Treatment Upcoming Encounters Date Type Department Care Team (Late st Contact Info) Description 05/28/2025 10:45 AM EDT Office Visit [facility] MED & PEDS 505 [place], [place] [phone] Sahil Chen CNP 505 [place], [place] [phone] documented as of this encounter Visit Diagnoses Not on filedocumented in this encounter Additional Health Concerns Assessment Noted Time PHQ-9 Depression Total Score: 16 023 8:52 AM EDT documented as of this encounter Care Teams Rrt Relationship Specialty Start Date End Date Amna Urrutia FNP 230 [place] [address] PCP - General Family Medicine 01/01/23 04/18/24 Everett Angulo MD 230 [place], [place] [phone] PCP - General Internal Medicine 04/19/24 10/08/24 Sahil Chen CNP [address] [place] [address] PCP - General Family Medicine 10/09/24 Chris Pack Jr Strap Machine Operator AutomaticGeek Squad Manager 09/04/24 documented as of this encounter
--- OUTSIDE RECORDS SUMMARY | 2025-05-11 20:09 | XMS_ITS | Encounter Summary ---
Author Organization [employer] Address 75 [facility] 7t [place] [address] Care Team Providers Care Shoemaking Finisher Name Role Phone Amna Urrutia Primary Care Provider [phone] Adele, Everett ROSE Primary Care Provider [phone] Sahil Chen CNP Primary Care Provider [phone] Reason for Visit * Reason Onset Date Comments Med Refill 07/17/2023 Encounter Details Date Type Department Care Team (Late st Contact Info) Description 07/17/2023 Refill [facility] MEDICINE [address] [place] [address] Sandra Leal MD 230 [place] [address] Social History Tobacco Use Types Packs/Day Years [...] Description 05/28/2025 10:45 AM EDT Office Visit [facility] MED & PEDS 505 [place], [place] [phone] Sahil Chen CNP 505 [place], [place] [phone] documented as of this encounter Visit Diagnoses Not on filedocumented in this encounter Additional Health Concerns Assessment Noted Time PHQ-9 Depression Total Score: 16 023 8:52 AM EDT documented as of this encounter Care Teams Shoemaking Finisher Relationship Specialty Start Date End Date Amna Urrutia FNP [address] [place] [address] PCP - General Family Medicine 01/01/23 04/18/24 Everett Angulo MD [address] [place] [address] PCP - General Internal Medicine 04/19/24 10/08/24 Sahil Chen CNP [address] [place] [address] PCP - General Family Medicine 10/09/24 Chris Pack Jr Musical Instrument MechanicMedical Officer Psychiatry 09/04/24 documented as of this encounter
--- OUTSIDE RECORDS SUMMARY | 2025-05-11 20:09 | XMS_ITS | Encounter Summary ---
Author Organization [employer] Address [address] [facility] [address] 7t [place] [address] Care Team Providers Care Ammonia Solution Preparer Name Role Phone Amna Urrutia Primary Care Provider [phone] Name, Everett ROSE Primary Care Provider [phone] Sahil Chen CNP Primary Care Provider [phone] Reason for Visit * Reason Comments Med Refill Encounter Details Date Type Department Care Team ([facility] st Contact Info) Description 09/08/2023 Refill [facility] MEDICINE [address] [place], [place] [phone] Amna Urrutia FNP [address] [place] [address] Type 1 diabetes mellitus with hyperglycemia ([facility]) Social History Tobacco Use Types Packs/Day [...] 05/28/2025 10:45 AM EDT Office Visit [facility] MED & PEDS 505 [place], [place] [phone] Sahil Chen CNP 505 [place], [place] [phone] documented as of this encounter Visit Diagnoses Diagnosis Type 1 diabetes mellitus with hyperglycemia (CMS/HCC) documented in this encounter Additional Health Concerns Assessment Noted Time PHQ-9 Depression Total Score: 16 023 8:52 AM EDT documented as of this encounter Care Teams Ammonia Solution Preparer Relationship Specialty Start Date End Date Amna Urrutia FNP [address] [place] [address] PCP - General Family Medicine 01/01/23 04/18/24 Everett Angulo MD [address] [place] [address] PCP - General Internal Medicine 04/19/24 10/08/24 Sahil Chen CNP [address] [place] [address] PCP - General Family Medicine 10/09/24 Chris Pack Jr Hvac/R Service TechnicianMaking Machine Operator 09/04/24 documented as of this encounter
--- OUTSIDE RECORDS SUMMARY | 2025-05-11 20:09 | XMS_ITS | Encounter Summary ---
Author Organization [email or web address] Address [address] [facility] [address] 7t [place] [address] Care Team Providers Care Biomed Tech Name Role Phone Amna Urrutia Primary Care Provider [phone] Name, Everett ROSE Primary Care Provider [phone] Sahil Chen CNP Primary Care Provider [phone] Reason for Visit * Reason Comments Med Refill Encounter Details Date Type Department Care Team ([facility] st Contact Info) Description 10/04/2023 Refill [facility] MEDICINE [address] [place] [address] Amna Urrutia FNP [address] [place] [address] Type 1 diabetes mellitus with hyperglycemia ([facility]) Social History Tobacco Use [...] Description 05/28/2025 10:45 AM EDT Office Visit [facility] MED & PEDS [address] [place], [place] [phone] Sahil Chen CNP 505 [place], [place] [phone] documented as of this encounter Visit Diagnoses Diagnosis Type 1 diabetes mellitus with hyperglycemia (CMS/HCC) documented in this encounter Additional Health Concerns Assessment Noted Time PHQ-9 Depression Total Score: 16 023 8:52 AM EDT documented as of this encounter Care Teams Biomed Tech Relationship Specialty Start Date End Date Amna Urrutia FNP 230 [place], [place] [phone] PCP - General Family Medicine 01/01/23 04/18/24 Everett Angulo MD [address] [place], [place] [phone] PCP - General Internal Medicine 04/19/24 10/08/24 Sahil Chen CNP [address] [place] [address] PCP - General Family Medicine 10/09/24 Chris Pack Jr Psychology TechBillboard Installer 09/04/24 documented as of this encounter
--- OUTSIDE RECORDS SUMMARY | 2025-05-11 20:09 | XMS_ITS | Encounter Summary ---
Author Organization [employer] Address 75 [facility] 7t [place] [address] Care Team Providers Care Kennel Staff Member Name Role Phone Amna Urrutia Primary Care Provider [phone] Adele, Everett ROSE Primary Care Provider Sahil Chen CNP Primary Care Provider [phone] Reason for Visit * Reason Onset Date Comments Reschedule 02/14/2024 Encounter Details Date Type Department Care Team ([facility] st Contact Info) Description 02/14/2024 Telephone [facility] MEDICINE [address] [place] [address] Amna Urrutia FNP [address] [place] [address] Reschedule Social History Tobacco Use Types Packs/Day [...] to reschedule 02/13 follow up extended appointment. Supervisor Laboratory Animal Facility attempted to reschedule but no availability. Please contact pt at [phone] documented in this encounter Plan of Treatment Upcoming Encounters Date Type Department Care Team (Late st Contact Info) Description 05/28/2025 10:45 AM EDT Office Visit [facility] MED & PEDS 505 [place] [address] Sahil Chen CNP 505 [place] [address] documented as of this encounter Visit Diagnoses Not on filedocumented in this encounter Additional Health Concerns Assessment Noted Time PHQ-9 Depression Total Score: 10 024 1:01 PM EDT documented as of this encounter Care Teams Kennel Staff Member Relationship Specialty Start Date End Date Amna Urrutia FNP [address] [place] [address] PCP - General Family Medicine 01/01/23 04/18/24 Everett Angulo MD 230 [place] [address] PCP - General Internal Medicine 04/19/24 10/08/24 Sahil Chen CNP 230 [place] [address] PCP - General Family Medicine 10/09/24 Chris Pack Jr Analytics InternPayroll Bookkeeper 09/04/24 documented as of this encounter
--- OUTSIDE RECORDS SUMMARY | 2025-05-11 20:10 | XMS_ITS | Encounter Summary ---
Author Organization [employer] Address 75 [facility] 7t [place] [address] Care Team Providers Care Cellular Equipment Repairer Name Role Phone Amna Urrutia Primary Care Provider [phone] Name, Everett ROSE Primary Care Provider [phone] Sahil Chen CNP Primary Care Provider [phone] Reason for Visit * Reason Onset Date Comments Med Refill 05/03/2023 Encounter Details Date Type Department Care Team (Late st Contact Info) Description 05/03/2023 Refill [facility] [address] [place] [address] Amna Urrutia FNP [address] [place] [address] Type 1 diabetes mellitus with hyperglycemia ([facility]/HCC) Social History Tobacco Use Types Packs/Day [...] Description 05/28/2025 10:45 AM EDT Office Visit [facility] MED & PEDS [address] [place], [place] [phone] Sahil Chen CNP 505 [place] [address] documented as of this encounter Visit Diagnoses Diagnosis Type 1 diabetes mellitus with hyperglycemia (CMS/HCC) documented in this encounter Additional Health Concerns Assessment Noted Time PHQ-9 Depression Total Score: 16 04/17/ 023 8:52 AM EDT documented as of this encounter Care Teams Cellular Equipment Repairer Relationship Specialty Start Date End Date Amna Urrutia FNP [address] [place] [address] PCP - General Family Medicine 01/01/23 04/18/24 Everett Angulo MD [address] [place] [address] PCP - General Internal Medicine 04/19/24 10/08/24 Sahil Chen CNP [address] [place] [address] PCP - General Family Medicine 10/09/24 Chris Pack Jr Game Farm SupervisorCommander Police Reserves 09/04/24 documented as of this encounter
--- OUTSIDE RECORDS SUMMARY | 2025-05-11 20:10 | XMS_ITS | Encounter Summary ---
Author Organization [facility] Address [address] [place] [address] Phone Care Team Providers Care Healthcare Market Consultant Name Role Phone Santos Mueller MD Primary Care Provider [phone] Encounter Details Date Type Department Care Team (Late st Contact Info) Description 08/05/2024 Documentation Only [facility], [address] [place] [address] Jessica Sprague [address] [place] [address] Social History Tobacco Use Types [...] on filedocumented in this encounter Care Teams Healthcare Market Consultant Relationship Specialty Start Date End Date Santos Mueller MD [address] [place] [address] PCP - General Emergency Medicine 07/28/23 documented as of this encounter
--- OUTSIDE RECORDS SUMMARY | 2025-05-11 20:10 | XMS_ITS | Encounter Summary ---
Author Organization [employer] Address [address] [facility] [address] 7t [place] [address] Care Team Providers Care Administrative Supervisor Name Role Phone Sahil Chen CNP Primary Care Provider [phone] Reason for Visit * Reason Onset Date Comments Nurse Triage 03/17/2025 Encounter Details Date Type Department Care Team (Late st Contact Info) Description 03/17/2025 Telephone [facility] MEDICINE [address] [place] [address] Sahil Chen CNP [address] [place] [address] Nurse Triage Social History Tobacco Use Types [...] and testicular pain. Pt was seen in [facility] ED 03/16/25report is on the chart. ED [...] with good effect. ASK apt with PCP [place] @ 1000am. 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 Contact pt at [phone] documented in this encounter Plan of Treatment Upcoming Encounters Date Type Department Care Team (Late st Contact Info) Description 05/28/2025 10:45 AM EDT Office Visit [facility] MED & PEDS 505 [place] [address] Sahil Chen CNP [address] [place] [address] documented as of this encounter Visit Diagnoses Not on filedocumented in this encounter Additional Health Concerns Assessment Noted Time PHQ-9 Depression Total Score: 19 11/27/2 025 3:09 PM EDT documented as of this encounter Care Teams Administrative Supervisor Relationship Specialty Start Date End Date Sahil Chne CNP PCP - General Family Medicine 10/09/24 Chris Pack Jr Home Appliance TechParts Specialist 09/04/24 documented as of this encounter
--- OUTSIDE RECORDS SUMMARY | 2025-05-11 20:10 | XMS_ITS | Encounter Summary ---
Author Organization [employer] Address [address] [facility] 7 [place] [address] Care Team Providers Care Stave And Bolt Equalizer Name Role Phone Amna Urruita Primary Care Provider [phone] Name, Everett ROSE Primary Care Provider Sahil Chen CNP Primary Care Provider [phone] Reason for Visit * Reason Onset Date Comments Med Refill 05/01/2023 Encounter Details Date Type Department Care Team ([facility] Contact Info) Description 05/01/2023 Refill [facility] MEDICINE [address] [place], [place] [phone] Sandra Leal MD 230 [place] [address] Social History Tobacco Use Types Packs/Day Years [...] Upcoming Encounters Date Type Department Care Team ([facility] Contact Info) Description 05/28/2025 10:45 AM EDT Office Visit [facility] MED & PEDS 505 [place], [place] [phone] Sahil Chen CNP 505 [place] [address] documented as of this encounter Visit Diagnoses Not on filedocumented in this encounter Additional Health Concerns Assessment Noted Time PHQ-9 Depression Total Score: 16 023 8:52 AM EDT documented as of this encounter Care Teams Stave And Bolt Equalizer Relationship Specialty Start Date End Date Amna Urrutia FNP [address] [place] [address] PCP - General Family Medicine 01/01/23 04/18/24 Name, MD Everett [address] [place] [address] PCP - General Internal Medicine 04/19/24 10/08/24 Sahil Chen CNP [address] [place] [address] PCP - General Family Medicine 10/09/24 Chris Pack Jr Warp Dyeing TenderBakery Helper 09/04/24 documented as of this encounter
--- OUTSIDE RECORDS SUMMARY | 2025-05-11 20:10 | XMS_ITS | Encounter Summary ---
Author Organization [employer] Address 75 [facility] 7t [place] [address] Care Team Providers Care Dye House Hand Name Role Phone Amna Urrutia Primary Care Provider [phone] Name, Everett ROSE Primary Care Provider [phone] Sahil Chen CNP Primary Care Provider [phone] Reason for Visit * Reason Onset Date Comments Med Refill 05/01/2023 Encounter Details Date Type Department Care Team (Late st Contact Info) Description 05/01/2023 Refill [facility] [address] [place], [place] [phone] Lakshmi Womack FNP [address] [place] [address] Type 1 diabetes mellitus with hyperglycemia ([facility]) Social History Tobacco Use Types Packs/Day [...] Description 05/28/2025 10:45 AM EDT Office Visit [facility] MED & PEDS 505 [place] [address] Sahil Chen CNP [address] [place] [address] documented as of this encounter Visit Diagnoses Diagnosis Type 1 diabetes mellitus with hyperglycemia (CMS/HCC) documented in this encounter Additional Health Concerns Assessment Noted Time PHQ-9 Depression Total Score: 16 04/17/ 023 8:52 AM EDT documented as of this encounter Care Teams Dye House Hand Relationship Specialty Start Date End Date Amna Urrutia FNP [address] [place] [address] PCP - General Family Medicine 01/01/23 04/18/24 Everett Angulo MD 230 [place] [address] PCP - General Internal Medicine 04/19/24 10/08/24 Sahil Chen CNP [address] [place] [address] PCP - General Family Medicine 10/09/24 Chris Pack Jr Recruiting ManagerCare Giver 09/04/24 documented as of this encounter
--- OUTSIDE RECORDS SUMMARY | 2025-05-11 20:10 | XMS_ITS | Encounter Summary ---
Author Organization [employer] Address [address] [facility] [address] 7[address] [place] [address] Care Team Providers Care Electric Golf Cart Repairer Name Role Phone Sahil Chen CNP Primary Care Provider [phone] Reason for Visit * Reason Comments Med Refill Encounter Details Date Type Department Care Team (Late st Contact Info) Description 01/09/2025 Refill [facility] MEDICINE 230 [place] [address] Sahil Chen CNP [address] [place], [place] [phone] Type 1 diabetes mellitus with hyperglycemia (CMS/[facility]) Social [...] Upcoming Encounters Date Type Department Care Team ([facility] st Contact Info) Description 05/28/2025 10:45 AM EDT Office Visit [facility] MED & PEDS [address] [place] [address] Sahil Chen CNP [address] [place] [address] documented as of this encounter Visit Diagnoses Diagnosis Type 1 diabetes mellitus with hyperglycemia (CMS/HCC) documented in this encounter Additional Health Concerns Assessment Noted Time PHQ-9 Depression Total Score: 19 025 3:09 PM EDT documented as of this encounter Care Teams Electric Golf Cart Repairer Relationship Specialty Start Date End Date Sahil Chen CNP PCP - General Family Medicine 10/09/24 Chris Pack Jr Gas Line RepairerElectric Well Logging Operator 09/04/24 documented as of this encounter
--- OUTSIDE RECORDS SUMMARY | 2025-05-11 20:10 | XMS_ITS | Encounter Summary ---
Author Organization [employer] Address [address] [facility] 7 [place] [address] Care Team Providers Care Sound Assistant Name Role Phone Amna Urrutia Primary Care Provider [phone] Name, Everett ROSE Primary Care Provider [phone] Sahil Chen CNP Primary Care Provider [phone] Reason for Visit * Reason Onset Date Comments Med Refill 04/29/2023 Encounter Details Date Type Department Care Team ([facility] [address] Contact Info) Description 04/29/2023 Refill [facility] MEDICINE 230 [place], [place] [phone] Sandra Leal MD 230 [place] [address] Social History Tobacco Use Types Packs/Day Years [...] Upcoming Encounters Date Type Department Care Team ([facility] [address] Contact Info) Description 05/28/2025 10:45 AM EDT Office Visit [facility] MED & PEDS 505 [place], [place] [phone] Sahil Chen CNP [address] [place] [address] documented as of this encounter Visit Diagnoses Not on filedocumented in this encounter Additional Health Concerns Assessment Noted Time PHQ-9 Depression Total Score: 16 023 8:52 AM EDT documented as of this encounter Care Teams Sound Assistant Relationship Specialty Start Date End Date Amna Urrutia FNP [address] [place] [address] PCP - General Family Medicine 01/01/23 04/18/24 Name, MD Everett [address] [place] [address] PCP - General Internal Medicine 04/19/24 10/08/24 Sahil Chen CNP [address] [place] [address] PCP - General Family Medicine 10/09/24 Chris Pack Jr Mechanic Marine EngineTransit Worker 09/04/24 documented as of this encounter
--- OUTSIDE RECORDS SUMMARY | 2025-05-11 20:10 | XMS_ITS | Encounter Summary ---
Author Organization [employer] Address [address] [facility] [address] 7[address] [place] [address] Care Team Providers Care Meteorological Observer Name Role Phone Sahil Chen CNP Primary Care Provider [phone] Reason for Visit * Reason Comments Med Refill Encounter Details Date Type Department Care Team (Late st Contact Info) Description 02/17/2025 Refill [facility] MEDICINE 230 [place] [address] Sahil Chen CNP 505 [place], [place] [phone] Type 1 diabetes mellitus with hyperglycemia (CMS/[facility] [...] Upcoming Encounters Date Type Department Care Team ([facility] st Contact Info) Description 05/28/2025 10:45 AM EDT Office Visit [facility] MED & PEDS [address] [place] [address] Sahil Chen CNP 505 [place] [address] documented as of this encounter Visit Diagnoses Diagnosis Type 1 diabetes mellitus with hyperglycemia (CMS/HCC) documented in this encounter Additional Health Concerns Assessment Noted Time PHQ-9 Depression Total Score: 19 025 3:09 PM EDT documented as of this encounter Care Teams Meteorological Observer Relationship Specialty Start Date End Date Sahil Chen CNP PCP - General Family Medicine 10/09/24 Chris Pack Jr Sueding Machine TenderPet Caregiver 09/04/24 documented as of this encounter
--- OUTSIDE RECORDS SUMMARY | 2025-05-11 20:10 | XMS_ITS | Clinical Summary ---
Author Organization [facility] Address [address] [place] [address] Phone Care Team Providers Care Coat Feller Name Role Phone Gustavo Delkalyan ZAMORA Primary Care Provider [phone] Allergies Active Allergy Reactions Criticality Noted Date Comments Diphenhydramine Hcl 04/02/2025 Haloperidol 04/02/2025 Medications No known medications Encounters Date Type Department Care Team Description 04/02/2025 1:57 PM EDT - 04/02/2025 9:38 PM EDT Emergency [facility] [address] [place] [address] Kenneth Shane MD Discharge Disposition: Left Against [...] HIV ONE-TIME SCREENING (18-6 5 YEARS) 02/07/2014 INFLUENZA VACCINE (#1) 2025 COVID-19 VACCINE (2023-2 5 season) 2025 Adult Td,Tdap Booster 11/07/2033 11/08/2023 HEPATITIS A [...] (ABNORMAL) POCT Glucose (04/02/2025 7:41 PM EDT) Glucose, POCT 54(L) 70 - 100 mg/dL [facility] 04/02/2025 7:41 PM EDT 04/02/2025 7:55 PM EDT us Kenneth Shane MD POINT OF CARE TEST ORDERA BLES Final Result Performing Organization Address [facility] Co de Phone Number [address] [address] * ECG 12-LEAD (04/02/2025 3:03 PM EDT) Ventricular Rate EKG/MIN 81 BPM [facility] Atrial Rate 81 BPM [facility] MO Interval 142 ms [facility] QRS Duration 102 ms [facility] QT Interval 376 ms [facility] QTC Interval 436 ms [facility] R Wave Hubbard -75 degrees [facility] T Wave Hubbard 13 degrees [facility] 04/02/2025 3:03 PM EDT 04/02/2025 5:55 PM EDT Narrative [facility] - 04/02/2025 5:55 PM EDT Normal sinus rhythm with sinus arrhythmia Left anterior fascicular block Abnormal ECG No previous ECGs available Confirmed by Jonny ZELAYA ([id number]) on 04/02/2025 5:55:23 PM us Kenneth Shane MD ECG ORDERABLES Final Res ult Performing Organization Address [facility] Co de Phone Number [facility] * Ethanol, blood (04/02/2025 2:39 PM EDT) ETHANOL <10 <10 mg/dL [facility] Blood 04/02/2025 2:39 PM EDT 04/02/2025 2:44 PM EDT us Kenneth Shane MD LAB BLOOD ORDERABLES Olga l Result Performing Organization Address City/[facility]/ZIP Co de Phone Number [address] [address] * LFTs (hepatic panel) (04/02/2025 2:39 PM EDT) ALKALINE PHOSPHATASE 82 39 - 117 U/L [facility] TOTAL BILIRUBIN 0.8 0.0 - 1.2 mg/dL [facility] DIRECT BILIRUBIN 0.2 0.0 - 0.2 mg/dL [facility] Bilirubin (Indirect) 0.6 0 - 1.5 mg/dL [facility] AST 14 0 - 37 U/L [facility] ALT 12 0 - 40 U/L [facility] TOTAL PROTEIN 7.4 6.5 - 8.0 g/dL [facility] ALBUMIN 4.2 3.9 - 4.8 g/dL [facility] GLOBULIN 3.2 1 - 4.8 g/dL [facility] A/G Ratio 1.31 1.00 - 4.80 RATIO [facility] Blood 04/02/2025 2:39 PM EDT 04/02/2025 2:44 PM EDT us Kenneth Shane MD LAB BLOOD ORDERABLES Olga l Result [facility] [address] [place] [address] * (ABNORMAL) CBC and differential (04/02/2025 2:39 PM EDT) WBC 8.77 4.00 - 11.00 K/uL [facility] RBC 5.08 4.50 - 5.90 M/uL [facility] HGB 13.2(L) 13.5 - 17.5 g/dL [facility] HCT 41.2 41.0 - 53.0 % [facility] PLT 290 150 - 450 K/uL [facility] MCV 81.1 80.0 - 100.0 fL [facility] MCH 26.0(L) 27.0 - 31.0 pg [facility] MCHC 32.0 32.0 - 36.0 g/dL [facility] RDW 14.1 11.5 - 14.5 % [facility] MPV 9.8 8.4 - 12.0 fL [facility] NRBC 0.00 0.00 /100 WBCs [facility] ABSOLUTE NRBC 0.00 0.00 K/uL [facility] DIFF METHOD Auto [facility] NEUTS 65.9 48.0 - 76.0 % [facility] LYMPHS 25.3 18.0 - 41.0 % [facility] MONOS 7.1 4.0 - 11.0 % [facility] EOS 0.9 0.0 - 5.0 % [facility] BASOS 0.6 0.0 - 1.5 % [facility] Granulocytes, immature (%) 0.2 0.0 - 0.9 % [facility] ABSOLUTE NEUTS 5.78 1.92 - 7.60 K/uL [facility] ABSOLUTE LYMPHS 2.22 0.72 - 4.10 K/uL [facility] ABSOLUTE MONOS 0.62 0.16 - 1.10 K/uL [facility] ABSOLUTE EOS 0.08 0.00 - 0.50 K/uL [facility] ABSOLUTE BASOS 0.05 0.00 - 0.15 K/uL [facility] Granulocytes, immature 0.02 0.00 - 0.09 K/uL [facility] Blood 04/02/2025 2:39 PM EDT 04/02/2025 2:44 PM EDT us Olyn Alanna Shane MD LAB BLOOD ORDERABLES Olga bowman Result Performing Organization Address City/State/[facility] Co de Phone Number [address] [address] * (ABNORMAL) Phosphorus (04/02/2025 2:39 PM EDT) PHOSPHORUS 1.3(LL) 2.7 - 4.5 mg/dL [facility] Comment: Critical value: Results called to and read back by: SULMA Phillips ED 1524 04/02/25 BY [id number] Blood 04/02/2025 2:39 PM EDT 04/02/2025 2:44 PM EDT us Olyn Alanna Shane MD LAB BLOOD ORDERABLES Olga l Result Performing Organization Address [facility]/ZIP Co de Phone Number [address] [address] * Magnesium (04/02/2025 2:39 PM EDT) MAGNESIUM 2.1 1.6 - 2.6 mg/dL [facility] Blood 04/02/2025 2:39 PM EDT 04/02/2025 2:44 PM EDT Kenneth Shane MD LAB BLOOD ORDERABLES Olga l Result Performing Organization Address [facility] Co de Phone Number [address] [address] * (ABNORMAL) Lipase (04/02/2025 2:39 PM EDT) LIPASE 8(L) 16 - 63 U/L [facility] Blood 04/02/2025 2:39 PM EDT 04/02/2025 2:44 PM EDT Kenneth Shane MD LAB BLOOD ORDERABLES Olga l Result Performing Organization Address [facility] Co de Phone Number [address] [address] * (ABNORMAL) Acetaminophen level (04/02/2025 2:39 PM EDT) ACETAMINOPHEN <5.0(L) 15.0 - 30.0 ug/mL [facility] Blood 04/02/2025 2:39 PM EDT 04/02/2025 2:44 PM EDT us Kenneth Shane MD LAB BLOOD ORDERABLES Olga l Result Performing Organization Address City/[facility]/ZIP Co de Phone Number [address] [address] * (ABNORMAL) Basic metabolic panel (04/02/2025 2:39 PM EDT) SODIUM 137 133 - 146 mmol/L [facility] CHLORIDE 101 96 - 108 mmol/L [facility] POTASSIUM 4.0 3.3 - 5.1 mmol/L [facility] CO2 23 21 - 35 mmol/L [facility] BUN 18 6 - 19 mg/dL [facility] CREATININE 0.80 0.5 - 1.5 mg/dL [facility] GLUCOSE 112(H) 70 - 99 mg/dL [facility] CALCIUM 9.6 8.4 - 10.3 mg/dL [facility] EGFR >120 >59 mL/min/1.7 3m2 [facility] Comment:Estimated glomerular filtration rate calculated using the CKD-EPI refit equation. ANION GAP 17 10 - 20 mmol/L [facility] Blood 04/02/2025 2:39 PM EDT 04/02/2025 2:44 PM EDT Kenneth Shane MD LAB BLOOD ORDERABLES Olga l Result [facility] [address] [place] [address] from Last 3 Months Insurance [facility] [place] [address] [address] Care Teams Coat Feller Relationship Specialty Start Date End Date Sahil Chen CNP [address] [place] [id number] PCP - General Nurse Practitioner 04/02/25 Additional Source Comments The information contained in this document represents components of the legal health record. It is not the complete legal health record.[facility]
--- OUTSIDE RECORDS SUMMARY | 2025-05-11 20:10 | XMS_ITS | Encounter Summary ---
Author Organization [employer] Address [address] [facility] [address] [place] [address] Care Team Providers Care Wood Shop Teacher Name Role Phone Amna Urrutia Primary Care Provider [phone] Name, Everett ROSE Primary Care Provider [phone] Sahil Chen CNP Primary Care Provider [phone] Reason for Visit * Reason Onset Date Comments Med Refill 04/28/2023 Encounter Details Date Type Department Care Team ([facility] Contact Info) Description 04/28/2023 Refill [facility] MEDICINE [address] [place], [place] [phone] Sandra Leal MD [address] [place] [address] Social History Tobacco Use Types Packs/Day Years [...] Upcoming Encounters Date Type Department Care Team ([facility] Contact Info) Description 05/28/2025 10:45 AM EDT Office Visit [facility] MED & PEDS [address] [place], [place] [phone] Sahil Chen CNP [address] [place] [address] documented as of this encounter Visit Diagnoses Not on filedocumented in this encounter Additional Health Concerns Assessment Noted Time PHQ-9 Depression Total Score: 16 023 8:52 AM EDT documented as of this encounter Care Teams Wood Shop Teacher Relationship Specialty Start Date End Date Amna Urrutia FNP [address] [place] [address] PCP - General Family Medicine 01/01/23 04/18/24 Name, MD Everett [address] [place] [address] PCP - General Internal Medicine 04/19/24 10/08/24 Sahil Chen CNP [address] [place] [address] PCP - General Family Medicine 10/09/24 Chris Pack Jr Line ControllerInternational Sales Manager 09/04/24 documented as of this encounter
--- OUTSIDE RECORDS SUMMARY | 2025-05-11 20:10 | XMS_ITS | Encounter Summary ---
Author Organization [facility] Address [address] [place] [address] Phone Care Team Providers Care Sales Floor Manager Name Role Phone Santos Mueller MD Primary Care Provider [phone] Encounter Details Date Type Department Care Team (Late st Contact Info) Description 08/05/2024 Documentation Only [facility] [place], [address] [place] [address] Jessica Sprague [address] [place] [address] Social History Tobacco Use Types [...] on filedocumented in this encounter Care Teams Sales Floor Manager Relationship Specialty Start Date End Date Santos Mueller MD [address] [place] [address] PCP - General Emergency Medicine 07/28/23 documented as of this encounter
--- OUTSIDE RECORDS SUMMARY | 2025-05-11 20:10 | XMS_ITS | Encounter Summary ---
Author Organization [employer] Address [address] [facility] [address] [place] [address] Care Team Providers Care Chief Security Officer Name Role Phone Amna Urrutia Primary Care Provider [phone] Name, Everett ROSE Primary Care Provider [phone] Sahil Chen CNP Primary Care Provider [phone] Encounter Details Date Type Department Care Team ([facility] Contact Info) Description 01/17/2023 Orders Only [facility] MEDICINE [address] [place] [address] Amna Urrutia FNP [address] [place] [address] Social History Tobacco Use Types Packs/Day Years [...] Upcoming Encounters Date Type Department Care Team ([facility] Contact Info) Description 05/28/2025 10:45 AM EDT Office Visit [facility] MED & PEDS [address] [place], [place] [phone] Sahil Chen CNP [address] [place] [address] documented as of this encounter Visit Diagnoses Not on filedocumented in this encounter Additional Health Concerns Assessment Noted Time PHQ-9 Depression Total Score: 7 01/07/20 23 9:10 AM EDT documented as of this encounter Care Teams Chief Security Officer Relationship Specialty Start Date End Date Amna Urrutia FNP [address] [place] [address] PCP - General Family Medicine 01/01/23 04/18/24 Name, MD Everett [address] [place] [address] PCP - General Internal Medicine 04/19/24 10/08/24 Sahil Chen CNP [address] [place] [address] PCP - General Family Medicine 10/09/24 Chris Pack Jr Manual Lathe MachinistCaramel Cutter Hand 09/04/24 documented as of this encounter
--- OUTSIDE RECORDS SUMMARY | 2025-05-11 20:10 | XMS_ITS | Encounter Summary ---
Author Organization [facility] Address [address] [place] [address] Phone Care Team Providers Care Director Of Optimization Name Role Phone Santos Mueller MD Primary Care Provider [phone] Encounter Details Date Type Department Care Team (Late st Contact Info) Description 08/05/2024 Documentation Only [facility] [place], [address] [place] [address] Jessica Sprague [address] [place] [address] Social History Tobacco Use Types [...] filedocumented in this encounter Care Teams Director Of Optimization Relationship Specialty Start Date End Date Santos Mueller MD [address] [place] [address] PCP - General Emergency Medicine 07/28/23 documented as of this encounter
--- OUTSIDE RECORDS SUMMARY | 2025-05-11 20:10 | XMS_ITS | Encounter Summary ---
Author Organization [employer] Address [address] [facility] [address] [place] [address] Care Team Providers Care Executive Sales Assistant Name Role Phone Amna Urrutia Primary Care Provider [phone] Name, Everett ROSE Primary Care Provider [phone] Sahil Chen CNP Primary Care Provider [phone] Reason for Visit * Reason Onset Date Comments Med Refill 03/21/2023 Encounter Details Date Type Department Care Team ([facility] Contact Info) Description 03/21/2023 Refill [facility] MEDICINE [address] [place] [address] Amna Urrutia FNP [address] [place] [address] Social History Tobacco Use Types Packs/Day Years [...] Upcoming Encounters Date Type Department Care Team ([facility] Contact Info) Description 05/28/2025 10:45 AM EDT Office Visit [facility] CHC MED & PEDS [address] [place], [place] [phone] Sahil Chen CNP [address] [place], [place] [phone] documented as of this encounter Visit Diagnoses Not on filedocumented in this encounter Additional Health Concerns Assessment Noted Time PHQ-9 Depression Total Score: 7 01/07/20 23 9:10 AM EDT documented as of this encounter Care Teams Executive Sales Assistant Relationship Specialty Start Date End Date Amna Urrutia FNP [address] [place] [address] PCP - General Family Medicine 01/01/23 04/18/24 Everett Angulo MD [address] [place] [address] PCP - General Internal Medicine 04/19/24 10/08/24 Sahil Chen CNP [address] [place] [address] PCP - General Family Medicine 10/09/24 Chris Pack Jr Mental Health Nurse PractitionerRigging Up Man 09/04/24 documented as of this encounter
--- OUTSIDE RECORDS SUMMARY | 2025-05-11 20:10 | XMS_ITS | Clinical Summary ---
Author Organization [employer] Address [address] [place] [address] Care Team Providers Care Custodian Blood Bank Name Role Phone ChenSahil SOLUTION DESIGNER Primary Care Provider [phone] Allergies Active Allergy Reactions Criticality Noted Date [...] record from that organization. Continuous Blood Gluc Support Representative (FreeStyle Shiraz 2 Martin) deviceIndications: Type 1 diabetes mellitus with hyperglycemia ([facility]) Use with sensor to monitor [...] 025 Active Blood Glucose Monitoring Suppl (FreeStyle [place] Lite) w/Device kit 1 each by Other [...] not crush or chew. 60 capsule 11 025 04/09 Active mirtazapine (Remeron) 15 MG tabletIndications: Depression, unspecified depression type Take 1 tablet (15 mg) by mouth at bedtime. 30 tablet 025 Active cyclobenzaprine (Flexeril) 10 MG tabletIndications: Chronic back pain, unspecified back location, unspecified back pain laterality TAKE 1 TABLET BY MOUTH THREE TIMES DAILY FOR 10 DAYS 30 tablet 025 Active cyclobenzaprine (Flexeril) 10 MG tabletIndications: Chronic back pain, unspecified back location, unspecified back pain laterality Take 1 tablet (10 mg) by mouth 3 times daily for 10 days. 30 tablet 025 04/25 Discontinued Active Problems Patient Care Coordination No [...] with hyperglycemia 11/19 Overview (11/28/2024): Follows with [facility] Endo LITO 09/2024 Has CGM in [...] Pt last f/u with GI 08/2024 at [facility], per provider note: Plan: - Labs [...] and care PLAN: 1. Follow up with [facility]: Recommended for follow-up: TBD 2. Patient goal is stabilization of symptoms. 3. Behavioral Recommendations a. Patient was sectioned and taken to [facility] via ambulance History of concussion 05/31/2023 [...] depressive disorder, recurrent episode with anxious distress ([facility]/HCC) Patient ready to address current needs Yes Strengths include willing to engage in MH services. PLAN: 1. Follow up with [facility]: Not recommended for follow-up 2. Patient [...] to schedule apt ---I discussed today w workforce specialist and request to try to schedule [...] f up until can start care w vibrator equipment tester Type 1 diabetes mellitus without complication Overview (03/19/2025): [place] [facility] [place], [place] 12/[address] Component Ref [...] (03/21/2024 3:41 PM EDT): Has apt w Watch Crystal Molder next week to start care Assessment & [...] (01/01/2023 4:06 PM EDT): Reports diagnosed approx 2019 in [place] Referral to establish with GI provider placed [...] organization. Date Type Department Care Team Description 04/25/2025 Refill [facility] [address] [place] [address] Sahil Chen CNP Chronic back pain, unspecified back location, unspecified back pain laterality 04/22/2025 Results Follow-Up [facility] [address] [place] [address] Sahil Chen CNP MR Lumbar Spine w/o Contrast 04/09/2025 9:00 AM EDT Office Visit [facility] [address] [place] [address] Sahil Chen CNP Chronic back pain, unspecified back location, unspecified back pain laterality (Primary Dx); Depression, unspecified depression type 04/09/2025 Travel 04/08/2025 Telephone [facility] [address] [place] [address] Sahil Chen CNP Chart Prep 04/03/[address] [address] Sahil Chen CNP 04/02/[address] [address] Sahil Chen CNP 04/01/[address] [address] Sahil Chen CNP Medication Question 03/24/2025 Orders Only [facility] [address] [place] [address] Sahil Chen CNP Type 1 diabetes mellitus with hyperglycemia ([facility]/HCC) 03/19/2025 10:00 AM EDT Office Visit [facility] [address] [place] [address] Sahil Chen CNP Depression, unspecified depression type (Primary Dx); Chronic back pain, unspecified back location, unspecified back pain laterality; Type 1 diabetes mellitus without complication ([facility]/HCC) 03/19/2025 Travel 03/17/2025 Telephone [facility] [address] [place] [address] Sahil Chen CNP Nurse Triage 03/16/2025 Orders Only GENERIC EXTERNAL DATA DEPARTMENT Provider, Generic External Data 02/17/2025 Refill [facility] [address] [place] [address] Sahil Chen CNP Type 1 diabetes mellitus with hyperglycemia ([facility]) from Last 3 Months Immunizations Immunization Administration [...] 04/09/2025 9:17 AM EDT Plan of Treatment Upcoming Encounters Date Type Department Care Team ([facility] Contact Info) Description 05/28/2025 10:45 AM EDT Office Visit [facility] [address] [place] [address] Sahil Chen, SOLUTION DESIGNER [address] [place] [address] Health Maintenance Due Date Last Done Comments [...] PCV) 02/07/2015 Dental X-Ray: [facility] 10/19/2023 10/18/2022 Lipid Panel 11/14/2024 11/15/2023 COVID-19 Vaccine ( - season) 2025 Influenza Vaccine (#1) 2025 06/08/2016 Eye Exam 05/21/2025 05/21/2024, 1008/2023, 05/21/2024, Additional history exists Diabetes: Hemoglobin A1C [...] Procedure Name Priority Date/Time Associated Diagnosis Comments MR LUMBAR SPINE WO CONTRAST Routine 04/18/2025 5:56 PM EDT Chronic back pain, unspecified back location, unspecified back pain laterality POCT GLYCATED HEMOGLOBIN, TOTAL Routine 03/19/2025 10:50 [...] AUTO DIFFERENTIAL Routine 03/16/2025 9:02 AM EDT HEPATITIS C AB W/REFL TO HCV [...] Recently Relevant to Health Maintenance Results * MR Lumbar Spine w/o Contrast (04/18/2025 5:56 PM EDT) Anatomical Region Laterality Modality Spine, L-spine Magnetic Resonan ce 04/18/2025 5:56 PM EDT Narrative 04/21/2025 12:30 PM EDT [address] [address] Magnetic Resonance Report Signed Patient: Bradford Torres MR#: [id number] : 1995 Acct:[id number] Age/Sex: 30 / M ADM Date: 04/18/25 Loc: HO.MRI Attending Dr: Sahil Chen TALENT PARTNER Ordering Physician: Sahil Chen NP Date of Service: 04/18/25 Procedure(s): MR lumbar spine wo con Accession Number(s): [id number] cc: Sahil Chen TALENT PARTNER EXAMINATION: MR LUMBAR SPINE WITHOUT CONTRAST CLINICAL INFORMATION: Weakness, numbness and pain, both lower extremities. COMPARISON: Correlated to CT dated March 16, 2025 reported a unilateral, left-sided spondylolysis, L5 without listhesis. TECHNIQUE: MRI of the lumbar spine was obtained using routine sequences without contrast. FINDINGS: Last rib-bearing vertebra labeled T12. No gross bone marrow STIR signal abnormality. Sagittal bone marrow STIR signal in the left pars interarticularis of L5. No malalignment. Conus medullaris ends at inferior endplate of L1 with normal signal. T12-L1: No disc herniation. No neuroforamina stenosis. L1-2: No disc herniation. No neuroforamina stenosis. L2-3: No disc herniation. No neuroforamina stenosis. L3-4: Broad-based disc bulging. No central spinal canal stenosis. Facet joint hypertrophy. Mild bilateral neuroforamina narrowing. No compression upon neural elements. L4-5: Broad-based disc bulging. No central spinal canal stenosis. Mild left neuroforamina narrowing. L5-S1: Broad-based disc bulging. Left-sided spondylolysis pars interarticularis. Mild neuroforamina narrowing secondary to facet joint hypertrophy. No prevertebral compartment hematoma, mass or fluid collections. Abundant food contents in a prominent stomach. 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 Mild multilevel spondylosis L2-3 to L5-S1 resulting in mild left neuroforamina narrowing. Electronically signed by: Azeem Bullard MD 04/21/2025 12:27 PM EDT RP Dictated By: Azeem Dueñas MD Signed By: <Electronically signed by Azeem Tyler MD in OV> 04/21/25 1227 DD/ 175 TD/TT: 04/18/25 191 Document Control Coordinator: Procedure Note Donotuseinterpreter, Image - 04/21/2025 [place] [address] Magnetic Resonance Report Signed Patient: Bradford Torres JMR#: [id number] : 1995Acct:[id number] Age/Sex: Date: 04/18/25 Loc: HO.MRI Attending Dr: Sahil Chen TALENT PARTNER Ordering Physician: Sahil Chen NP Date of Service: 04/18/25 Procedure(s): MR lumbar spine wo con Accession Number(s): [id number] cc: Sahil Chen TALENT PARTNER EXAMINATION: MR LUMBAR SPINE WITHOUT CONTRAST CLINICAL INFORMATION: Weakness, numbness and pain, both lower extremities. COMPARISON: Correlated to CT dated March 16, 2025 reported a unilateral, left-sided spondylolysis, L5 without listhesis. TECHNIQUE: MRI of the lumbar spine was obtained using routine sequences without contrast. FINDINGS: Last rib-bearing vertebra labeled T12. No gross bone marrow STIR signal abnormality. Sagittal bone marrow STIR signal in the left pars interarticularis of L5. No malalignment. Conus medullaris ends at inferior endplate of L1 with normal signal. T12-L1: No disc herniation. No neuroforamina stenosis. L1-2: No disc herniation. No neuroforamina stenosis. L2-3: No disc herniation. No neuroforamina stenosis. L3-4: Broad-based disc bulging. No central spinal canal stenosis. Facet joint hypertrophy. Mild bilateral neuroforamina narrowing. No compression upon neural elements. L4-5: Broad-based disc bulging. No central spinal canal stenosis. Mild left neuroforamina narrowing. L5-S1: Broad-based disc bulging. Left-sided spondylolysis pars interarticularis. Mild neuroforamina narrowing secondary to facet joint hypertrophy. No prevertebral compartment hematoma, mass or fluid collections. Abundant food contents in a prominent stomach. 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 Mild multilevel spondylosis L2-3 to L5-S1 resulting in mild left neuroforamina narrowing. Electronically signed by: Azeem Bullard MD 04/21/2025 12:27 PM EDT RP Dictated By: Azeem Dueñas MD Signed By: <Electronically signed by Azeem Tyler MDin OV> 04/21/25 1227 DD/ 55 TD/TT: 04/18/251916 Document Control Coordinator: Result [facility] IMG MRI PROCEDURES Edited Result - Final * (ABNORMAL) POCT HGB A1C (03/19/2025 10:50 AM EDT) Hemoglobin A1C 8.3(A) 4.0 - 5.7 % QC Media Lot # [id number] Lot# Expiration Date Blood 03/19/2025 10:5 0 AM EDT Result [facility] POINT OF CARE TEST ENTER/ EDIT ORDERABLES Final Result * POCT Glucose (03/19/2025 10:50 AM EDT) Glucose Blood, POC 140 60 - 200 mg/dL QC Media Lot # [id number] Lot# Expiration Date 103,025 Blood Capillary blood specimen / Unknown 03/19/2025 10:50 AM EDT Result [facility] POINT OF CARE TEST ENTER/ EDIT ORDERABLES Final Result * CT Lumbar Spine w/o Contrast (03/16/2025 9:42 AM EDT) Anatomical Region Laterality Modality Spine, L-spine Computed Tomogra phy 03/16/2025 9:42 AM EDT Narrative 03/16/2025 9:43 AM EDT [address] [address] [address] Scan Report Signed Patient: Bradford Torres MR#: [id number] : 1995 Acct:[id number] Age/Sex: 30 / M ADM Date: 03/16/25 Loc: HO.ED Attending Dr: Ordering Physician: Marleni Boone NP Date of Service: 03/16/25 Procedure(s): CT lumbar spine wo IV con Accession Number(s): [id number] cc: Marleni Boone NP; Sahil Chen Report Number: [id number]: Total DLP = 361.00 mGy-cm CLINICAL HISTORY: [...] signed by Abraham Haque MD in OV> 03/16/25942 DD/ 1 TD/TT: 03/16/25941 Document Control Coordinator: Procedure Note Donotuseinterpreter, Image - 03/16/[address] [address] [address] Scan Report Signed Patient: Bradford Torres JMR#: [id number] : 1995Acct:[id number] Age/Sex: 30 / MADM Date: 03/16/25 Loc: HO.ED Attending Dr: Ordering Physician: Marleni Boone NP Date of Service: 03/16/25 Procedure(s): CT lumbar spine wo IV con Accession Number(s): [id number] cc: Marleni Boone NP; [facility] Report Number: [id number]: Total DLP = 361.00 mGy-cm CLINICAL HISTORY: [...] in OV> 03/16/2543 DD/ 1 TD/TT: 03/16/25941 Document Control Coordinator: [facility] External Provider IMG CT PROCEDURES Final Result * CT Head w/o Contrast (03/16/2025 9:38 AM EDT) Anatomical Region Laterality Modality Head, Neck Computed Tomogra phy 03/16/2025 9:38 AM EDT Narrative 03/16/2025 9:40 AM EDT [address] [address] [address] Scan Report Signed Patient: Bradford Torres MR#: [id number] : 1995 Acct:[id number] Age/Sex: 30 / M ADM Date: 03/16/25 Loc: HO.ED Attending Dr: Ordering Physician: Marleni Boone NP Date of Service: 03/16/25 Procedure(s): CT head/brain wo IV con Accession Number(s): [id number] cc: Marleni Boone NP; Del Chenmitra Report Number: [id number]: Total DLP = 757.00 mGy-cm CLINICAL HISTORY: [...] in OV> 03/16/25938 DD/ 7 TD/TT: 03/16/25937 Document Control Coordinator: Procedure Note Donotuseinterpreter, Image - 03/16/[address] [place] [address] [address] Scan Report Signed Patient: Bradford Torres [facility]#: [id number] : 1995Acct:[id number] Age/Sex: 30 / MADM Date: 03/16/25 Loc: HO.ED Attending Dr: Ordering Physician: Marleni Boone NP Date of Service: 03/16/25 Procedure(s): CT head/brain wo IV con Accession Number(s): [id number] cc: Marleni Boone NP; Sahil Chen Report Number: [id number]: Total DLP = 757.00 mGy-cm CLINICAL HISTORY: [...] in OV> 03/16/25938 DD/ 7 TD/TT: 03/16/25937 Document Control Coordinator: [facility] External Provider IMG CT PROCEDURES Final Result * (ABNORMAL) CBC auto differential (03/16/2025 9:02 AM EDT) White Blood Count 8.5 4.8 - 10.8 X10*3/uL [facility] Red Blood Count 4.92 4.60 - 5.80 X10*6/uL [facility] Hemoglobin 12.9(L) 14.0 - 18.0 g/dl [facility] Hematocrit 39.0(L) 42.0 - 52.0 % [facility] Mean Corpuscular Volume 79.3(L) 80.0 - 98.0 fL [facility] Mean Corpuscular Hemoglobin 26.2(L) 27.0 - 33.0 pg [facility] Mean Corpuscular HGB Conc 33.1 31.0 - 36.0 g/dl [facility] Red Cell Distribution Width 14.6 11.0 - 16.0 % [facility] Platelet Count 248 160 - 400 X10*3/uL [facility] Mean Platelet Volume 9.6 9.4 - 12.4 fL [facility] Neutrophils Percent Auto 70.5 45 - 73 % [facility] Imm Gran Pct Auto 0.2 0.0 - 0.4 % [facility] Lymphocytes Percent Auto 22.2 20 - 40 % [facility] Monocytes Percent Auto 5.4 2 - 11 % [facility] Eosinophils Percent Auto 1.1 0 - 4 % [facility] Basophils Percent Auto 0.6 0 - 2 % [facility] NRBC Pct Auto 0.0 0.0 - 0.2 /100WBC [facility] Neutrophils Absolute Auto 6.0 2.0 - 8.3 x10*3/uL [facility] Imm Gran Abs Auto 0.02 0.00 - 0.03 X10*3/uL [facility] Lymphocytes Absolute Auto 1.9 1.2 - 4.9 X10*3/uL [facility] Monocytes Absolute Auto 0.5 0.1 - 1.2 X10*3/uL [facility] Eosinophils Absolute Auto 0.1 0.0 - 0.4 X10*3/uL [facility] Basophils Absolute Auto 0.1 0.0 - 0.2 X10*3/uL [facility] NRBC Abs Auto 0.000 0.0 - 0.012 X10*3/uL [facility] 03/16/2025 9:02 AM EDT 03/16/2025 9:05 AM EDT us Generic External Data Provider LAB BLOOD ORDERAB LES Final Result [facility] [address] [place] [phone] * Hepatic Function Panel (03/16/2025 9:02 AM EDT) Bilirubin, Total 0.4 0.0 - 1.0 mg/dL [facility] Bilirubin, Direct 0.1 0.0 - 0.5 mg/dL [facility] Aspartate Amino Transferase 25 5 - 37 U/L [facility] Comment:Slight Hemolysis.Int erpret result with caution. Alanine Aminotransferase 16 0 - 40 U/L [facility] Total Protein 7.3 6.5 - 8.0 g/dL [facility] Albumin Level 4.3 3.5 - 5.0 g/dL [facility] Alkaline Phosphatase 74 39 - 117 U/L [facility] 03/16/2025 9:02 AM EDT 03/16/2025 9:05 AM EDT us Generic External Data Provider LAB BLOOD ORDERAB LES Final Result Performing Organization Address [facility] Co de Phone Number [facility] [address] [place] [address] [phone] * (ABNORMAL) Basic Metabolic Panel (03/16/2025 9:02 AM EDT) Sodium 140 135 - 145 mmol/L [facility] Potassium 4.4 3.3 - 5.1 mmol/L [facility] Comment:Slight Hemolysis.Int erpret result with caution. Chloride 106 96 - 108 mmol/L [facility] Carbon Dioxide 23 22 - 29 mmol/L [facility] Anion Gap 15 12 - 20 [facility] Urea Nitrogen (BUN) 19(H) 9 - 16 mg/dL [facility] Creatinine, Serum 0.66 0.5 - 1.4 mg/dL [facility] Creatinine Clr Calc Pharmacy 143.0 [facility] Comment:eGFR (calculated fro m the MDRD study equation) and eCrCl(calculated from the Cockcroft-Gault equation) are based ondifferent parameters and may not yield comparable results.If eCrCl result is absurd, please check patient'sheight/weight. Estimated Glomerular Filt Rate >60 [facility] Comment:Chronic Kidney Disea se: Estimated GFR < 60 mL/min/1.19j7Mkduod Kidney Disease: Estimated GFR < 15 mL/min/1.73m2 Glucose 204(H) 60 - 115 mg/dL [facility] Calcium 9.3 8.4 - 10.2 mg/dL [facility] 03/16/2025 9:02 AM EDT 03/16/2025 9:05 AM EDT us Generic External Data Provider LAB BLOOD ORDERAB LES Final Result Performing Organization Address City/[facility]/ZIP Co de Phone Number [facility] [address] [place] [address] [phone] * Hepatitis C Antibody with Reflex to HCV, RNA, Quantitative, Real-Time PCR (11/15/2023 1:28 PM EDT) Hepatitis C Antibody Nonreactive Nonreactive [facility] Comment:Antibodies to HCV no t detected; does not exclude early acuteHCV infection. Blood Venous blood specimen / Unknown 11/15/2023 1:28 PM EDT 11/15/2023 4:04 PM EDT us Amna Urrutia [employer] LAB BLOOD ORDERABLES Final Resu lt Performing Organization Address [facility] Co de Phone Number [facility] [address] [place] [address] [phone] * Lipid Panel, Standard (11/15/2023 1:28 PM EDT) Triglycerides 56 <150 mg/dL [facility] Comment:Desirable Triglyceri de: less than 150 mg/dLBorderline High Triglyceride 150-199 mg/dLHigh Triglyceride: 200-499 mg/dLVery High Triglyceride: greater than or equal to 5OO mg/dL Cholesterol 145 <200 mg/dL [facility] Comment:Desirable Cholestero l: less than 200 mg/dLBorderline High Cholesterol: 200-239 mg/dLHigh Cholesterol: greater than 239 mg/dL LDL Cholesterol Calculated 84 <100 mg/dL [facility] Comment:Desirable LDL: less than 100 mg/dLNear Optimal/Above Optimal LDL: 110- 129 mg/dLBorderline High LDL: 130-159 mg/dLHigh LDL: 160-189 mg/dLVery High LDL: greater than or equal to 190 mg/dL HDL Cholesterol 50 >40 mg/dL [facility] Comment:Desirable HDL: great er than 40 mg/dL Note: This HDL assay may give artificially low results in patients with liver disease. Blood Venous blood specimen / Unknown 11/15/2023 1:28 PM EDT 11/15/2023 4:04 PM EDT [facility] LAB BLOOD ORDERABLES Final Resu lt [facility] [address] [place] [address] [phone] * HIV-1 RNA, Quantitative, Real-Time PCR with Reflex to Genotype (RTI, PI, Integrase) (01/06/2023 10:25 AM EDT) [facility] HIV 1 RNA, QN PCR NOT DETECTED copies/mL [facility], HIV 1 RNA, QN PCR NOT DETECTED Log copies/mL [facility], Comment: REFERENCE RANGE: NOT DETECTED copies/mL NOT DETECTED Log copies/mL This test was performed using Real-Time Polymerase Chain Reaction. Reportable range is 20 to 10,000,000 copies/mL (1.30-7.00 Log copies/mL). 01/06/2023 10:2 5 AM EDT 01/06/2023 10:26 AM EDT Narrative [facility] - 01/11/2023 1:53 AM EDT FASTING:NO SPECIMEN COLLECTED AT PROVIDER OFFICE. FASTING: NO [facility] LAB BLOOD ORDERABLES Final Resu lt [address], [place] [address] [facility], [address] [place] [address] from Last 3 Months or Most Recently Relevant to Health Maintenance Insurance [facility] Care Teams Custodian Blood Bank Relationship Specialty Start Date End Date Sahil Chen CNP PCP - General Family Medicine 10/09/24 Chris Pack Jr Broth SetterPump Servicer 09/04/24
[2025-05-11] MEDS: Lactated Ringers 1,000 ML 999 ML IV (20:23)
--- NOTE | 2025-05-11 20:28 | ECG_ITS ---
Test Reason : CHEST PAIN Blood Pressure : */* mmHG Vent. Rate : 75 BPM Atrial Rate : 75 BPM P-R Int : 104 ms QRS Dur : 108 ms QT Int : 376 ms P-R-T Axes : 18 -37 38 degrees QTcB Int : 419 ms Sinus rhythm with short IN Left axis deviation Abnormal ECG When compared with ECG of 04-Dec-2024 12:41, No significant change was found Referred By: Gema Wolff Electronically Signed By: Carrington Fay
[2025-05-11 20:36] LABS: Alanine Aminotransferase 19 U/L (0-40); Albumin Level 4.2 g/dL (3.5-5.0); Alkaline Phosphatase 76 U/L (39-117); Anion Gap 14 (12-20); Aspartate Amino Transferase 25 U/L (5-37); Blood Urea Nitrogen 12 mg/dL (9-16); Calcium 9.3 mg/dL (8.4-10.2); Carbon Dioxide 22 mmol/L (22-29); Chloride 101 mmol/L (96-108); Creatinine Clr Calc Pharmacy 137.8; Estimated Glomerular Filt Rate > 60; Lipase 5 U/L (8-78); Potassium 4.4 mmol/L (3.3-5.1); Sodium 133 mmol/L (135-145); Total Protein 7.4 g/dL (6.5-8.0)
[2025-05-11 21:41] VITALS: BP 109/71; PULSE 75; RESP 14; TEMP 36.4; O2SAT 98
--- NOTE | 2025-05-11 23:05 | PC.NURSE ---
Notified Dr. Lees of pt report back pain coming back
--- NOTE | 2025-05-11 23:24 | PC.NURSE ---
Call pharmacy for Ketamine order, will change so I can administered medication, medication not available as ordered
[2025-05-11] MEDS: Ketamine HCl/NS 50 MG/5 ML SYRINGE 20 MG IVPUSH (23:32)
--- NOTE | 2025-05-11 23:36 | PC.NURSE ---
medicated pt per mar.
[2025-05-12 00:14] VITALS: BP 112/69; PULSE 78; TEMP 36.6; O2SAT 99
[2025-05-12 01:44] VITALS: BP 130/91; PULSE 81; RESP 11; TEMP 36.6; O2SAT 99
[2025-05-12 02:14] VITALS: BP 130/91; PULSE 81; RESP 11; TEMP 36.6; O2SAT 99
--- NOTE | 2025-05-12 02:14 | PC.NURSE ---
Iv removed, reviewed discharge instructions with pt. pt verbalized understanding, no sign of distress.
--- NOTE | 2025-05-12 02:27 | PC.NURSE ---
pt left his poc reader at bedside called to inform him at 2:27am, pt will come to continuous pickling line pickler, left with charge nurse Maggy
== END 2025-05-12 02:15 | disposition home or self-care (01) ==
PROVIDERS: Emergency Provider Emergency Medicine
DX: M54.6 Pain in thoracic spine (principal); R94.31 Abnormal electrocardiogram [ECG] [EKG]; R11.0 Nausea; Z79.899 Other long term (current) drug therapy
CPT/HCPCS: 36415; 71046; 72070; 80053; 82947; 83690; 85025; 93005; 96361; 96374; 96375; 99284; 99285; J1308; J1885; J7120

== ENCOUNTER → 2025-05-11 20:28 | Outpatient (BNV) | payer MEDICAID, SELFPAY | PROVIDERS: Emergency Provider Emergency Medicine; Visit Provider Internal Medicine Cardiovascular Disease | DX: R94.31 Abnormal electrocardiogram [ECG] [EKG] (principal); R07.9 Chest pain, unspecified | CPT/HCPCS: 93010 ==

== ENCOUNTER → 2025-05-11 20:32 | Outpatient (BNV) | payer MEDICAID, SELFPAY | PROVIDERS: Emergency Provider Emergency Medicine; Visit Provider Radiology Neuroradiology | DX: R07.9 Chest pain, unspecified (principal); M54.6 Pain in thoracic spine | CPT/HCPCS: 71046; 72070 ==

== ENCOUNTER 2025-05-12 22:06 | Emergency (ER) | payer MEDICAID, SELFPAY ==
--- OUTSIDE RECORDS SUMMARY | 2025-05-12 15:03 | XMS_ITS | Encounter Summary ---
Author Organization [facility] Address [address] [place] [address] Phone Care Team Providers Care Pheresis Specialist Name Role Phone Gustavo Delpatimitra SERA Primary Care Provider [phone] Reason for Visit * Reason Comments Back Pain Encounter Details Date Type Department Care Team ([facility] st Contact Info) Description 05/12/2025 3:03 PM EDT - 05/12/2025 5:59 PM EDT Emergency [facility] [address] [place] [address] Discharge Disposition: Left Without Being Seen Social History Tobacco Use Types Packs/Day Years [...] as food, clothing, or medical care? No 05/12/2025 In the past 12 months have y ou been in a relationship with a person who hurts, threatens, or tries to control you? No 05/12/2025 Are you denied basic needs s uch as food, clothing, or medical care? No 05/12/2025 In the past 12 months have y ou been in a relationship with a person who hurts, threatens, or tries to control you? No 05/12/2025 Sex and Gender Information Value Date Recorded Sex Assigned at Male 04/02/2025 2:37 PM EDT Legal Sex Male 8:51 PM EDT Gender Identity Male 04/02/2025 2:37 PM EDT Sexual Orientation Don't know 04/02/2025 2: 37 PM EDT documented as of this encounter Last Filed Vital Signs Vital Sign Reading Time Taken Comments Blood Pressure 138/92 05/12/2025 3:12 PM EDT Pulse 98 05/12/2025 3:12 PM EDT Temperature 36.4 C (97.5 F) 05/12/2025 3:12 PM EDT Respiratory Rate 20 05/12/2025 3:12 PM EDT Oxygen Saturation 99% 05/12/2025 3:12 PM EDT Inhaled Oxygen Concentration - - Weight - - Height - - Body Mass Index - - documented in this encounter ED Notes * Omer Noriega RN - 05/12/2025 3:10 PM EDT Pt comes from home for eavl of 05/30 middle back pain x5 days. Pt was seen at [place] ED this morning and given pain meds, pt walked home and called EMS stating the pain was not resolved. 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 Pt appears uncomfortable sitting in wheel chair. Pt alert and calm, CAOx4, skin PWD, speaking in full sentences answering questionsappropriately, respirations even and unlabored, managing airway/secretions. documented in this encounter Plan of Treatment Not on file documented as of this encounter Visit Diagnoses Not on filedocumented in this encounter Care Teams Pheresis Specialist Relationship Specialty Start Date End Date Sahil Chen CNP [address] [place] [address] PCP - General Nurse Practitioner 04/02/25 documented as of this encounter Additional Source Comments The information contained in this document represents components of the legal health record. It is not the complete legal health record.[facility]
[2025-05-12 22:12] VITALS: BP 135/92; PULSE 100; O2SAT 100
[2025-05-12 22:25] VITALS: BP 103/74; PULSE 109; RESP 18; TEMP 37; O2SAT 100; BMI 19.0
[2025-05-13 00:33] VITALS: BP 112/61; PULSE 100; RESP 16; TEMP 36.6; O2SAT 99
--- OUTSIDE RECORDS SUMMARY | 2025-05-13 00:35 | XMS_ITS | Encounter Summary ---
Author Organization [employer] Address [address] 7t [place] [address] Care Team Providers Care Nurse Companion Name Role Phone Name, Everett ROSE Primary Care Provider [phone] Sahil Chen CNP Primary Care Provider [phone] Encounter Details Date Type Department Care Team (Late st Contact Info) Description 04/21/2024 Orders Only [facility] MED & PEDS [address] [place], [place] [phone] Amna Urrutia FNP [address] [place], [place] [phone] Social History Tobacco Use Types Packs/Day Years [...] [facility] MED & PEDS 505 [place] [address] Sahil Chen CNP 505 [place] [address] documented as of this encounter Visit Diagnoses Not on filedocumented in this encounter Additional Health Concerns Assessment Noted Time PHQ-9 Depression Total Score: 20 024 2:42 PM EDT documented as of this encounter Care Teams Nurse Companion Relationship Specialty Start Date End Date Name, MD Everett [address] [place] [address] PCP - General Internal Medicine 04/19/24 10/08/24 Sahil Chen CNP [address] [place] [address] PCP - General Family Medicine 10/09/24 Chris Pack Jr Manager Enterprise Content ManagementReporting Specialist 09/04/24 documented as of this encounter
--- OUTSIDE RECORDS SUMMARY | 2025-05-13 00:35 | XMS_ITS | Encounter Summary ---
Author Organization [employer] Address [address] 7t [place] [address] Care Team Providers Care Professional Skater Name Role Phone Amna Urrutia Primary Care Provider [phone] Adele, Everett ROSE Primary Care Provider [phone] Sahil Chen CNP Primary Care Provider [phone] Reason for Visit * Reason Comments Med Refill Encounter Details Date Type Department Care Team ([facility] st Contact Info) Description 08/29/2023 Refill [facility] MEDICINE [address] [place] [address] Carlos Alberto Villavicencio MD [address] [place] [address] Type 1 diabetes mellitus with hyperglycemia (CMS/HCC) [...] [facility] MED [facility] 505 [place], [place] [phone] Sahil Chen CNP 505 [place], [place] [phone] documented as of this encounter Visit Diagnoses Diagnosis Type 1 diabetes mellitus with hyperglycemia (CMS/HCC) documented in this encounter Additional Health Concerns Assessment Noted Time PHQ-9 Depression Total Score: 16 023 8:52 AM EDT documented as of this encounter Care Teams Professional Skater Relationship Specialty Start Date End Date Amna Urrutia FNP [address] [place] [address] PCP - General Family Medicine 01/01/23 04/18/24 Everett Angulo MD [address] [place], [place] [phone] PCP - General Internal Medicine 04/19/24 10/08/24 Sahil Chen CNP [address] [place] [address] PCP - General Family Medicine 10/09/24 Chris Pack Jr Digital Marketing CoordinatorProcess Excellence Manager 09/04/24 documented as of this encounter
--- OUTSIDE RECORDS SUMMARY | 2025-05-13 00:35 | XMS_ITS | Clinical Summary ---
Author Organization [facility], Address [address] [place] [address] [place] [address] Phone Care Team Providers Care Enthone Solder Stripper Name Role Phone Santos Mueller MD Primary Care Provider [phone] Allergies Active Allergy Reactions Criticality Noted Date [...] 2025 06/08/2016 Insurance Medicaid [place] Care Teams Enthone Solder Stripper Relationship Specialty Start Date End Date Santos Mueller MD [address] [place] [phone] PCP - General Emergency Medicine 07/28/23
--- OUTSIDE RECORDS SUMMARY | 2025-05-13 00:35 | XMS_ITS | Encounter Summary ---
Author Organization [employer] Address [address] [facility] 7t [place] [address] Care Team Providers Care Courier Name Role Phone Amna Urrutia Primary Care Provider [phone] Adele, Everett ROSE Primary Care Provider [phone] Sahil Chen CNP Primary Care Provider [phone] Reason for Visit * Reason Onset Date Comments Med Refill 07/15/2023 Encounter Details Date Type Department Care Team (Late st Contact Info) Description 07/15/2023 Refill [facility] MEDICINE [address] [place] [address] Sandra Leal MD 230 [place] [address] Social History Tobacco Use Types Packs/Day Years [...] [facility] MED & PEDS 505 [place], [place] [phone] Sahil Chen CNP [address] [place], [place] [phone] documented as of this encounter Visit Diagnoses Not on filedocumented in this encounter Additional Health Concerns Assessment Noted Time PHQ-9 Depression Total Score: 16 023 8:52 AM EDT documented as of this encounter Care Teams Courier Relationship Specialty Start Date End Date Amna Urrutia FNP 230 [place] [address] PCP - General Family Medicine 01/01/23 04/18/24 Everett Angulo MD [address] [place] [address] PCP - General Internal Medicine 04/19/24 10/08/24 Sahil Chen CNP [address] [place] [address] PCP - General Family Medicine 10/09/24 Chris Pack Jr Warranty CoordinatorCoal Pulverizing Operator 09/04/24 documented as of this encounter
--- OUTSIDE RECORDS SUMMARY | 2025-05-13 00:35 | XMS_ITS | Encounter Summary ---
Author Organization [employer] Address [address] 7t [place] [address] Care Team Providers Care Customer Marketing Intern Name Role Phone Amna Urrutia Primary Care Provider [phone] Name, Everett ROSE Primary Care Provider [phone] Sahil Chen CNP Primary Care Provider [phone] Reason for Visit * Reason Onset Date Comments Med Refill 09/27/2023 Encounter Details Date Type Department Care Team (Late st Contact Info) Description 09/27/2023 Refill [facility] MEDICINE [address] [place] [address] Amna Urrutia FNP [address] [place] [address] Type 1 diabetes mellitus with hyperglycemia ([facility]/HCC) Social History Tobacco Use Types Packs/Day Years [...] 10:45 AM EDT Office Visit [facility] MED & PEDS 505 [place], [place] [phone] Sahil Chen CNP 505 [place], [place] [phone] documented as of this encounter Visit Diagnoses Diagnosis Type 1 diabetes mellitus with hyperglycemia (CMS/HCC) documented in this encounter Additional Health Concerns Assessment Noted Time PHQ-9 Depression Total Score: 16 023 8:52 AM EDT documented as of this encounter Care Teams Customer Marketing Intern Relationship Specialty Start Date End Date Amna Urrutia FNP [address] [place] [address] PCP - General Family Medicine 01/01/23 04/18/24 Everett Angulo MD [address] [place], [place] [phone] PCP - General Internal Medicine 04/19/24 10/08/24 Sahil Chen CNP [address] [place] [address] PCP - General Family Medicine 10/09/24 Chris Pack Jr Slotter OperatorAir And Missile Defense Crewmember 09/04/24 documented as of this encounter
--- OUTSIDE RECORDS SUMMARY | 2025-05-13 00:35 | XMS_ITS | Encounter Summary ---
Author Organization [employer] Address [address] 7t [place] [address] Care Team Providers Care Gas Manager Name Role Phone Amna Urrutia Primary Care Provider [phone] Adele, Everett ROSE Primary Care Provider [phone] Sahil Chen CNP Primary Care Provider [phone] Reason for Visit * Reason Onset Date Comments Med Refill 07/28/2023 Encounter Details Date Type Department Care Team (Late st Contact Info) Description 07/28/2023 Refill [facility] MEDICINE 230 [place] [address] Denice Rubin MD 230 [place] [address] Social History Tobacco Use Types Packs/Day Years [...] 05/28/2025 10:45 AM EDT Office Visit [facility] MED & PEDS 505 [place], [place] [phone] Sahil Chen CNP [address] [place], [place] [phone] documented as of this encounter Visit Diagnoses Not on filedocumented in this encounter Additional Health Concerns Assessment Noted Time PHQ-9 Depression Total Score: 16 023 8:52 AM EDT documented as of this encounter Care Teams Gas Manager Relationship Specialty Start Date End Date Amna Urrutia FNP [address] [place] [address] PCP - General Family Medicine 01/01/23 04/18/24 Everett Angulo MD [address] [place] [address] PCP - General Internal Medicine 04/19/24 10/08/24 Sahil Chen CNP [address] [place] [address] PCP - General Family Medicine 10/09/24 Chris Pack Jr Drug CounselorRate Engineer 09/04/24 documented as of this encounter
--- OUTSIDE RECORDS SUMMARY | 2025-05-13 00:35 | XMS_ITS | Encounter Summary ---
Author Organization [employer] Address [address] 7t [place] [address] Care Team Providers Care Director Design Name Role Phone Amna Urrutia Primary Care Provider [phone] Adele, Everett ROSE Primary Care Provider [phone] Sahil Chen CNP Primary Care Provider [phone] Encounter Details Date Type Department Care Team (Late st Contact Info) Description 06/28/2023 Orders Only [facility] 230 [place], [place] [phone] Santos Mueller MD 230 [place] [address] Social History Tobacco Use Types Packs/Day Years [...] 05/28/2025 10:45 AM EDT Office Visit [facility] MED & PEDS 505 [place], [place] [phone] Sahil Chen CNP 505 [place], [place] [phone] documented as of this encounter Visit Diagnoses Not on filedocumented in this encounter Additional Health Concerns Assessment Noted Time PHQ-9 Depression Total Score: 16 023 8:52 AM EDT documented as of this encounter Care Teams Director Design Relationship Specialty Start Date End Date Amna Urrutia FNP [address] [place] [address] PCP - General Family Medicine 01/01/23 04/18/24 Everett Angulo MD [address] [place] [address] PCP - General Internal Medicine 04/19/24 10/08/24 Sahil Chen CNP [address] [place] [address] PCP - General Family Medicine 10/09/24 Chris Pack Jr Automobile Upholsterer ApprenticeResearch Laboratory Technician 09/04/24 documented as of this encounter
--- OUTSIDE RECORDS SUMMARY | 2025-05-13 00:35 | XMS_ITS | Encounter Summary ---
Author Organization [employer] Address [address] 7t [place] [address] Care Team Providers Care Peripheral Vascular Tech Name Role Phone Amna Urrutia Primary Care Provider [phone] Name, Everett ROSE Primary Care Provider [phone] Sahil Chen CNP Primary Care Provider [phone] Reason for Visit * Reason Comments Med Refill Encounter Details Date Type Department Care Team ([facility] st Contact Info) Description 09/08/2023 Refill [facility] MEDICINE [address] [place], [place] [phone] Amna Urrutia FNP 230 [place] [address] Type 1 diabetes mellitus with hyperglycemia ([facility]) Social History Tobacco Use [...] Description 05/28/2025 10:45 AM EDT Office Visit [facility] MED & PEDS 505 [place], [place] [phone] Sahil Chen CNP 505 [place], [place] [phone] documented as of this encounter Visit Diagnoses Diagnosis Type 1 diabetes mellitus with hyperglycemia (CMS/HCC) documented in this encounter Additional Health Concerns Assessment Noted Time PHQ-9 Depression Total Score: 16 023 8:52 AM EDT documented as of this encounter Care Teams Peripheral Vascular Tech Relationship Specialty Start Date End Date Amna Urrutia FNP [address] [place] [address] PCP - General Family Medicine 01/01/23 04/18/24 Everett Angulo MD [address] [place] [address] PCP - General Internal Medicine 04/19/24 10/08/24 Sahil Chen CNP [address] [place] [address] PCP - General Family Medicine 10/09/24 Chris Pack Jr Underwater WelderMechanical Product Design Engineer 09/04/24 documented as of this encounter
--- OUTSIDE RECORDS SUMMARY | 2025-05-13 00:35 | XMS_ITS | Encounter Summary ---
Author Organization [employer] Address [address] [facility] 7t [place] [address] Care Team Providers Care Transcriptionist Name Role Phone Amna Urrutia Primary Care Provider [phone] Adele, Everett ROSE Primary Care Provider [phone] Sahil Chen CNP Primary Care Provider [phone] Reason for Visit * Reason Onset Date Comments Reschedule 02/14/2024 Encounter Details Date Type Department Care Team ([facility] st Contact Info) Description 02/14/2024 Telephone [facility] MEDICINE [address] [place] [address] Amna Urrutia FNP [address] [place] [address] Reschedule Social History Tobacco Use Types Packs/Day [...] to reschedule 02/13 follow up extended appointment. Tile Machine Operator attempted to reschedule but no availability. Please contact pt at [phone] documented in this encounter Plan of Treatment Upcoming Encounters Date Type Department Care Team (Late st Contact Info) Description 05/28/2025 10:45 AM EDT Office Visit [facility] MED & PEDS 505 [place] [address] Sahil Chen CNP 505 [place] [address] documented as of this encounter Visit Diagnoses Not on filedocumented in this encounter Additional Health Concerns Assessment Noted Time PHQ-9 Depression Total Score: 10 024 1:01 PM EDT documented as of this encounter Care Teams Transcriptionist Relationship Specialty Start Date End Date Amna Urrutia FNP 230 [place] [address] PCP - General Family Medicine 01/01/23 04/18/24 Everett Angulo MD 230 [place] [address] PCP - General Internal Medicine 04/19/24 10/08/24 Sahil Chen CNP 230 [place] [address] PCP - General Family Medicine 10/09/24 Chris Pack Jr Medical ProfessionalsInterface Control Officer 09/04/24 documented as of this encounter
--- OUTSIDE RECORDS SUMMARY | 2025-05-13 00:35 | XMS_ITS | Encounter Summary ---
Author Organization [employer] Address [address] [facility] 7t [place] [address] Care Team Providers Care Railroad Baggage Porter Name Role Phone Amna Urrutia Primary Care Provider [phone] Adele, Everett ROSE Primary Care Provider [phone] Sahil Chen CNP Primary Care Provider [phone] Reason for Visit * Reason Onset Date Comments Med Refill 07/17/2023 Encounter Details Date Type Department Care Team (Late st Contact Info) Description 07/17/2023 Refill [facility] MEDICINE [address] [place] [address] Sandra Leal MD [address] [place] [address] Social History Tobacco Use Types Packs/Day Years [...] [facility] [address] [place], [place] [phone] Sahil Chen CNP 505 [place], [place] [phone] documented as of this encounter Visit Diagnoses Not on filedocumented in this encounter Additional Health Concerns Assessment Noted Time PHQ-9 Depression Total Score: 16 023 8:52 AM EDT documented as of this encounter Care Teams Railroad Baggage Porter Relationship Specialty Start Date End Date Amna Urrutia FNP [address] [place] [address] PCP - General Family Medicine 01/01/23 04/18/24 Everett Angulo MD [address] [place] [address] PCP - General Internal Medicine 04/19/24 10/08/24 Sahil Chen CNP [address] [place] [address] PCP - General Family Medicine 10/09/24 Chris Pack Jr Chair Post Machine OperatorCommunity Center Director 09/04/24 documented as of this encounter
--- OUTSIDE RECORDS SUMMARY | 2025-05-13 00:35 | XMS_ITS | Encounter Summary ---
Author Organization [employer] Address [address] [facility] 7t [place] [address] Care Team Providers Care Chili Pepper Grinder Name Role Phone Amna Urrutia Primary Care Provider [phone] Name, Everett ROSE Primary Care Provider [phone] Sahil Chen CNP Primary Care Provider [phone] Reason for Visit * Reason Onset Date Comments Med Refill 05/30/2023 Encounter Details Date Type Department Care Team (Late st Contact Info) Description 05/30/2023 Refill [facility] MEDICINE [address] [place] [address] Amna Urrutia FNP [address] [place] [address] Social History Tobacco Use Types Packs/Day Years [...] 05/28/2025 10:45 AM EDT Office Visit [facility] MED & PEDS 505 [place], [place] [phone] Sahil Chen CNP 505 [place], [place] [address] documented as of this encounter Visit Diagnoses Not on filedocumented in this encounter Additional Health Concerns Assessment Noted Time PHQ-9 Depression Total Score: 16 023 8:52 AM EDT documented as of this encounter Care Teams Chili Pepper Grinder Relationship Specialty Start Date End Date Amna Urrutia FNP 230 [place] [address] PCP - General Family Medicine 01/01/23 04/18/24 Everett Angulo MD [address] [place] [address] PCP - General Internal Medicine 04/19/24 10/08/24 Sahil Chen CNP [address] [place] [address] PCP - General Family Medicine 10/09/24 Chris Pack Jr Trouble LocaterContracts Officer 09/04/24 documented as of this encounter
--- OUTSIDE RECORDS SUMMARY | 2025-05-13 00:35 | XMS_ITS | Encounter Summary ---
Author Organization [employer] Address [address] [facility] 7t [place] [address] Care Team Providers Care Refueler Name Role Phone Amna Urrutia Primary Care Provider [phone] Name, Everett ROSE Primary Care Provider [phone] Sahil Chen CNP Primary Care Provider [phone] Reason for Visit * Reason Onset Date Comments Med Refill 07/28/2023 Encounter Details Date Type Department Care Team (Late st Contact Info) Description 07/28/2023 Refill [facility] MEDICINE [address] [place] [address] Amna Urrutia FNP [address] [place] [address] Social History Tobacco Use Types Packs/Day Years [...] Visit [facility] MED & PEDS 505 [place], [place] [phone] Sahil Chen CNP 505 [place], [place] [phone] documented as of this encounter Visit Diagnoses Not on filedocumented in this encounter Additional Health Concerns Assessment Noted Time PHQ-9 Depression Total Score: 16 023 8:52 AM EDT documented as of this encounter Care Teams Refueler Relationship Specialty Start Date End Date Amna Urrutia FNP [address] [place] [address] PCP - General Family Medicine 01/01/23 04/18/24 Everett Angulo MD [address] [place] [address] PCP - General Internal Medicine 04/19/24 10/08/24 Sahil Chen CNP [address] [place] [address] PCP - General Family Medicine 10/09/24 Chris Pack Jr Warp HangerSide Panel Hanger 09/04/24 documented as of this encounter
--- OUTSIDE RECORDS SUMMARY | 2025-05-13 00:35 | XMS_ITS | Encounter Summary ---
Author Organization [employer] Address [address] 7t [place] [address] Care Team Providers Care Director Of Residential Services Name Role Phone Amna Urrutia Primary Care Provider [phone] Adele, Everett ROSE Primary Care Provider [phone] Sahil Chen CNP Primary Care Provider [phone] Reason for Visit * Reason Onset Date Comments Med Refill 07/15/2023 Encounter Details Date Type Department Care Team (Late st Contact Info) Description 07/15/2023 Refill [facility] 230 [place], [place] [phone] Amna Urrutia FNP [address] [place] [address] Social History Tobacco Use Types Packs/Day Years [...] Description 05/28/2025 10:45 AM EDT Office Visit [facility] MED & PEDS 505 [place], [place] [phone] Shail Chen CNP 505 [place], [place] [phone] documented as of this encounter Visit Diagnoses Not on filedocumented in this encounter Additional Health Concerns Assessment Noted Time PHQ-9 Depression Total Score: 16 023 8:52 AM EDT documented as of this encounter Care Teams Director Of Residential Services Relationship Specialty Start Date End Date Amna Urrutia FNP [address] [place] [address] PCP - General Family Medicine 01/01/23 04/18/24 Everett Angulo MD [address] [place] [address] PCP - General Internal Medicine 04/19/24 10/08/24 Sahil Chen CNP [address] [place] [address] PCP - General Family Medicine 10/09/24 Chris Pack Jr Twist MakerTechnology Consultant 09/04/24 documented as of this encounter
--- OUTSIDE RECORDS SUMMARY | 2025-05-13 00:35 | XMS_ITS | Encounter Summary ---
Author Organization [employer] Address [address] 7t [place] [address] Care Team Providers Care Grape Cutter Name Role Phone Amna Urrutia Primary Care Provider [phone] Adele, Everett ROSE Primary Care Provider [phone] Sahil Chen CNP Primary Care Provider [phone] Reason for Visit * Reason Comments Med Refill Encounter Details Date Type Department Care Team ([facility] st Contact Info) Description 05/30/2023 Refill [facility] MEDICINE 230 [place] [address] Amna Urrutia FNP 230 [place] [address] Social History Tobacco Use Types Packs/Day Years [...] [facility] MED & [facility]EDS 505 [place], [place] [phone] Sahil Chen CNP 505 [place], [place] [phone] documented as of this encounter Visit Diagnoses Not on filedocumented in this encounter Additional Health Concerns Assessment Noted Time PHQ-9 Depression Total Score: 16 023 8:52 AM EDT documented as of this encounter Care Teams Grape Cutter Relationship Specialty Start Date End Date Amna Urrutia FNP [address] [place] [address] PCP - General Family Medicine 01/01/23 04/18/24 Everett Angulo MD [address] [place] [address] PCP - General Internal Medicine 04/19/24 10/08/24 Sahil Chen CNP [address] [place] [address] PCP - General Family Medicine 10/09/24 Chris Pack Jr Slip Cover CutterThoracic Medicine Physician 09/04/24 documented as of this encounter
--- OUTSIDE RECORDS SUMMARY | 2025-05-13 00:35 | XMS_ITS | Encounter Summary ---
Author Organization [employer] Address [address] [facility] 7t [place] [address] Care Team Providers Care Engineering Manager Electronics Name Role Phone Amna Urrutia Primary Care Provider [phone] Adele, Everett ROSE Primary Care Provider Sahil Chen CNP Primary Care Provider [phone] Reason for Visit * Reason Onset Date Comments Nurse Triage 05/30/2023 Encounter Details Date Type Department Care Team ([facility] st Contact Info) Description 05/30/2023 Telephone [facility] MEDICINE [address] [place] [address] Amna Urrutia FNP [address] [place] [address] Nurse Triage Social History Tobacco Use Types [...] obtain discharge summary for patient seen at [facility] 05/29/23 following head injury at work. Scheduled for follow up below Future Appointments Date Time Provider Department Center 05/31/2023 11:30 AM Denice Rubin MD [facility] * Telephone Encounter - Marline Vega RN - 05/30/2023 1:27 PM EDT Call to Bradford Torres, reports having been seen at [facility] 05/29 due to concussion that occurred [...] Center 05/31/2023 11:30 AM Denice Rubin MD [facility] Video visit offer not recorded Positive Triage [...] and states is still in pain ( commercial real estate underwriter was un able to take all details information due to call hanging up ) . Patient advised will forward to triage nursefor follow up. documented in this encounter Plan of Treatment Upcoming Encounters Date Type Department Care Team (Late st Contact Info) Description 05/28/2025 10:45 AM EDT Office Visit [facility] MED & PEDS [address] [place], [place] [phone] Sahil Chen CNP 505 [place], [place] [phone] documented as of this encounter Visit Diagnoses Not on filedocumented in this encounter Additional Health Concerns Assessment Noted Time PHQ-9 Depression Total Score: 16 023 8:52 AM EDT documented as of this encounter Care Teams Engineering Manager Electronics Relationship Specialty Start Date End Date Amna Urrutia FNP [address] [place] [address] PCP - General Family Medicine 01/01/23 04/18/24 Everett Angulo MD [address] [place], [place] [phone] PCP - General Internal Medicine 04/19/24 10/08/24 Sahil Chen CNP [address] [place] [address] PCP - General Family Medicine 10/09/24 Chris Pack Jr Clinical Support TechTransportation Escort 09/04/24 documented as of this encounter
--- OUTSIDE RECORDS SUMMARY | 2025-05-13 00:35 | XMS_ITS | Encounter Summary ---
Author Organization [employer] Address [address] [facility] 7t [place] [address] Care Team Providers Care Change Of Address Clerk Name Role Phone Amna Urrutia Primary Care Provider [phone] Name, Everett ROSE Primary Care Provider [phone] Sahil Chen CNP Primary Care Provider [phone] Reason for Visit * Reason Onset Date Comments Appointment Request 09/08/2023 Encounter Details Date Type Department Care Team ([facility] Contact Info) Description 09/08/2023 Telephone [facility] MEDICINE [address] [place] [address] Amna Urrutia FNP [address] [place] [address] Appointment Request Social History Tobacco Use Types [...] to reschedule missed appt on 09/06 however food writer was not able to offer apptdue to the provider did not have any availably documented in this encounter Plan of Treatment Upcoming Encounters Date Type Department Care Team (Late st Contact Info) Description 05/28/2025 10:45 AM EDT Office Visit [facility] MED & PEDS [address] [place], [place] [phone] Sahil Chen, SERA [address] [place] [address] documented as of this encounter Visit Diagnoses Not on filedocumented in this encounter Additional Health Concerns Assessment Noted Time PHQ-9 Depression Total Score: 16 023 8:52 AM EDT documented as of this encounter Care Teams Change Of Address Clerk Relationship Specialty Start Date End Date Amna Urrutia FNP [address] [place], [place] [phone] PCP - General Family Medicine 01/01/23 04/18/24 Everett Angulo MD [address] [place], [place] [phone] PCP - General Internal Medicine 04/19/24 10/08/24 Sahil Chen CNP [address] [place] [address] PCP - General Family Medicine 10/09/24 Chris Pack Jr Field Radio TechnicianFan Blade Aligner 09/04/24 documented as of this encounter
--- OUTSIDE RECORDS SUMMARY | 2025-05-13 00:35 | XMS_ITS | Encounter Summary ---
Author Organization [employer] Address [address] [facility] 7t [place] [address] Care Team Providers Care Monorail Car Operator Name Role Phone Amna Urrutia Primary Care Provider [phone] Name, Everett ROSE Primary Care Provider [phone] Sahil Chen CNP Primary Care Provider [phone] Reason for Visit * Reason Onset Date Comments Med Refill 07/17/2023 Encounter Details Date Type Department Care Team (Late st Contact Info) Description 07/17/2023 Refill [facility] MEDICINE [address] [place] [address] Amna Urrutia FNP [address] [place] [address] Social History Tobacco Use Types Packs/Day Years [...] Visit [facility] MED & PEDS [address] [place], [place] [phone] Sahil Chen CNP [address] [place], [place] [phone] documented as of this encounter Visit Diagnoses Not on filedocumented in this encounter Additional Health Concerns Assessment Noted Time PHQ-9 Depression Total Score: 16 023 8:52 AM EDT documented as of this encounter Care Teams Monorail Car Operator Relationship Specialty Start Date End Date Amna Urrutia FNP [address] [place] [address] PCP - General Family Medicine 01/01/23 04/18/24 Everett Angulo MD [address] [place] [address] PCP - General Internal Medicine 04/19/24 10/08/24 Sahil Chen CNP [address] [place] [address] PCP - General Family Medicine 10/09/24 Chris Pack Jr ChlorinatorAluminum Pool Installer 09/04/24 documented as of this encounter
--- OUTSIDE RECORDS SUMMARY | 2025-05-13 00:35 | XMS_ITS | Encounter Summary ---
Author Organization [employer] Address [address] [facility] [address] 7t [place] [address] Care Team Providers Care Regional Owner Operator Truck Driver Name Role Phone Amna Urrutia Primary Care Provider [phone] Name, Everett ROSE Primary Care Provider [phone] Sahil Chen CNP Primary Care Provider [phone] Reason for Visit * Reason Comments Med Refill Encounter Details Date Type Department Care Team ([facility] st Contact Info) Description 10/04/2023 Refill [facility] MEDICINE [address] [place] [address] Amna Urrutia FNP [address] [place] [address] Type 1 diabetes mellitus with hyperglycemia ([facility]) Social History Tobacco Use Types [...] AM EDT Office Visit [facility] [address] [place], [place] [phone] Sahil Chen CNP 505 [place], [place] [phone] documented as of this encounter Visit Diagnoses Diagnosis Type 1 diabetes mellitus with hyperglycemia (CMS/HCC) documented in this encounter Additional Health Concerns Assessment Noted Time PHQ-9 Depression Total Score: 16 023 8:52 AM EDT documented as of this encounter Care Teams Regional Owner Operator Truck Driver Relationship Specialty Start Date End Date Amna Urrutia FNP [address] [place], [place] [phone] PCP - General Family Medicine 01/01/23 04/18/24 Everett Angulo MD [address] [place], [place] [phone] PCP - General Internal Medicine 04/19/24 10/08/24 Sahil Chen CNP 230 [place] [address] PCP - General Family Medicine 10/09/24 Chris Pack Jr Internal Medicine Physician AssistantKnitting Machine Fixer 09/04/24 documented as of this encounter
--- OUTSIDE RECORDS SUMMARY | 2025-05-13 00:35 | XMS_ITS | Encounter Summary ---
Author Organization [employer] Address [address] [facility] [address] 7t [place] [address] Care Team Providers Care Milk Drying Machine Operator Name Role Phone Gustavo Delkalyan ZAMORA Primary Care Provider [phone] Encounter Details Date Type Department Care Team (Late st Contact Info) Description 05/11/2025 Orders Only [facility] External Provider, [facility] Social History Tobacco Use Types Packs/Day Years [...] 05/28/2025 10:45 AM EDT Office Visit [facility] MED & PEDS [address] [place] [address] Sahil Chen, SERA [address] [place] [address] documented as of this encounter Procedures Procedure Name Priority Date/Time Associated Diagnosis Comments XR THORACIC SPINE 2 VIEWS Routine 05/11/2025 9:53 PM EDT XR CHEST 2 VIEWS Routine 05/11/2025 9:52 PM EDT documented in this encounter Results * XR Thoracic Spine 2 Views (05/11/2025 9:53 PM EDT) Anatomical Region Laterality Modality Spine, T-spine Radiographic Sheri ging 05/11/2025 9:53 PM EDT Narrative 05/11/2025 9:55 PM EDT [address] [address] XRay Report Signed Patient: Bradford Torres MR#: [id number] : 1995 Acct:[id number] Age/Sex: 30 / M ADM Date: 05/11/25 Loc: HO.ED Attending Dr: Ordering Physician: Gema Wolff DO Date of Service: 05/11/25 Procedure(s): XR thoracic spine 2V Accession Number(s): [id number] cc: Gema Wolff DO; Sahil Chen NP Reason for Exam: back pain CLINICAL HISTORY: back pain 2 views thoracic spine Comparison: X-rays of the thoracic spine from 05/07/2024 Findings: Lateral imaging includes a swimmer's view imaged. No significant change of the imaged vertebral heights or alignments. Cervicothoracic junction is obscured. Straightening of the imaged cervical lordosis in the ltvdl-te-dfiy. No consolidation of the imaged lungs. IMPRESSION: 1. Negative x-rays of the thoracic spine, without significant change compared to 1 year prior 2. Straightening of the imaged cervical lordosis. This document has been electronically signed by: Perry Ferrera MD on 05/11/2025 21:53:59 Dictated By: Perry Ferrera MD Signed By: <Electronically signed by Perry Ferrera MD in OV> 05/11/252154 DD/ 52 TD/TT: 05/11/252152 Home Hospice Rn: Procedure Note Donotuseinterpreter, Image - 05/11/2025 [place] [address] XRay Report Signed Patient: Bradford Torres JMR#: [id number] : 1995Acct:[id number] Age/Sex: Date: 05/11/25 Loc: .ED Attending Dr: Ordering Physician: Gema Wolff DO Date of Service: 05/11/25 Procedure(s): XR thoracic spine 2V Accession Number(s): [id number] cc: Gema Wolff DO; Sahil Chen NP Reason for Exam: back pain CLINICAL HISTORY: back pain 2 views thoracic spine Comparison: X-rays of the thoracic spine from 05/07/2024 Findings: Lateral imaging includes a swimmer's view imaged. No significant change of the imaged vertebral heights or alignments. Cervicothoracic junction is obscured. Straightening of the imaged cervical lordosis in the wwopr-px-dhco. No consolidation of the imaged lungs. IMPRESSION: 1. Negative x-rays of the thoracic spine, without significant change compared to 1 year prior 2. Straightening of the imaged cervical lordosis. This document has been electronically signed by: Perry Ferrera MD on 05/11/2025 21:53:59 Dictated By: Perry Ferrera MD Signed By: <Electronically signed by Perry Ferrera MD in OV> 05/11/252154 DD/ 52 TD/TT: 05/11/252152 Home Hospice Rn: us [facility] External Provider IMG XR PROCEDURES Edited Result - Final * XR Chest 2 Views (05/11/2025 9:52 PM EDT) Anatomical Region Laterality Modality Chest Radiographic Sheri ging 05/11/2025 9:52 PM EDT Narrative 05/11/2025 9:54 PM EDT [address] [address] XRay Report Signed Patient: Bradford Torres MR#: [id number] : 1995 Acct:[id number] Age/Sex: 30 / M ADM Date: 05/11/25 Loc: .ED Attending Dr: Ordering Physician: Gema Wolff DO Date of Service: 05/11/25 Procedure(s): XR chest 2V Accession Number(s): [id number] cc: Gema Wolff DO; Sahil Chen NP Reason for Exam: chest pain CLINICAL HISTORY: chest pain 2 view chest x-ray Comparison: Chest x-ray from 09/13/2024 Findings: No consolidation or effusion. No pneumothorax. Heart size is normal. No acute fracture, by two-view chest x-ray. IMPRESSION: No consolidation. This document has been electronically signed by: Perry Ferrera MD on 05/11/2025 21:52:00 Dictated By: Perry Ferrera MD Signed By: <Electronically signed by Perry Ferrera MD in OV> 05/11/252152 DD/ 51 TD/TT: 05/11/252151 Home Hospice Rn: Procedure Note Donotuseinterpreter, Image - 05/11/[address] [address] XRay Report Signed Patient: Bradford Torres JMR#: [id number] : 1995Acct:[id number] Age/Sex: 30 / MADM Date: 05/11/25 Loc: [facility].ED Attending Dr: Ordering Physician: Gema Wolff DO Date of Service: 05/11/25 Procedure(s): XR chest 2V Accession Number(s): [id number] cc: Gema Wolff DO; Sahil Chen NP Reason for Exam: chest pain CLINICAL HISTORY: chest pain 2 view chest x-ray Comparison: Chest x-ray from 09/13/2024 Findings: No consolidation or effusion. No pneumothorax. Heart size is normal. No acute fracture, by two-view chest x-ray. IMPRESSION: No consolidation. This document has been electronically signed by: Perry Ferrera MD on 05/11/2025 21:52:00 Dictated By: Perry Ferrera MD Signed By: <Electronically signed by Perry Ferrera MD in OV> 05/11/252152 DD/ 51 TD/TT: 05/11/252151 Home Hospice Rn: [facility] External Provider IMG XR PROCEDURES Edited Result - Final documented in this encounter Visit Diagnoses Not on filedocumented in this encounter Additional Health Concerns Assessment Noted Time PHQ-9 Depression Total Score: 15 025 2:28 PM EDT documented as of this encounter Care Teams Milk Drying Machine Operator Relationship Specialty Start Date End Date Sahil Chen CNP PCP - General Family Medicine 10/09/24 Chris Pack Jr Contracts AnalystHead Of Geography 09/04/24 documented as of this encounter
--- OUTSIDE RECORDS SUMMARY | 2025-05-13 00:35 | XMS_ITS | Encounter Summary ---
Author Organization [employer] Address [address] [facility] [address] 7t [place] [address] Care Team Providers Care Fish And Wildlife Technician Name Role Phone Name, Everett ROSE Primary Care Provider [phone] Sahil Chen CNP Primary Care Provider [phone] Reason for Visit * Reason Comments Med Refill Encounter Details Date Type Department Care Team (Late st Contact Info) Description 05/03/2024 Refill [facility] [address] [place], [place] [phone] Amna Urrutia FNP [address] [place] [address] Type 1 diabetes mellitus with hyperglycemia (CMS/[facility]) Social History Tobacco Use Types [...] Description 05/28/2025 10:45 AM EDT Office Visit [facility] MED & PEDS [address] [place] [address] Sahil Chen CNP 505 [place] [address] documented as of this encounter Visit Diagnoses Diagnosis Type 1 diabetes mellitus with hyperglycemia (CMS/HCC) documented in this encounter Additional Health Concerns Assessment Noted Time PHQ-9 Depression Total Score: 20 024 2:42 PM EDT documented as of this encounter Care Teams Fish And Wildlife Technician Relationship Specialty Start Date End Date Name, MD Everett [address] [place] [address] PCP - General Internal Medicine 04/19/24 10/08/24 Saihl Chen CNP [address] [place] [address] PCP - General Family Medicine 10/09/24 Chris Pack Jr Hand Former HelperCube Cutter 09/04/24 documented as of this encounter
--- OUTSIDE RECORDS SUMMARY | 2025-05-13 00:35 | XMS_ITS | Encounter Summary ---
Author Organization [employer] Address [address] [facility] [address] 7t [place] [address] Care Team Providers Care Accounting Coordinator Name Role Phone Sahil Chen CNP Primary Care Provider [phone] Reason for Visit * Reason Comments Med Refill Encounter Details Date Type Department Care Team (Late st Contact Info) Description 05/12/2025 Refill [facility] MEDICINE [address] [place] [address] Sahil Chen CNP 505 [place], [place] [phone] Chronic back pain, unspecified back location, unspecified back pain laterality; Depression, unspecified depression type Social History Tobacco Use Types Packs/Day Years [...] Upcoming Encounters Date Type Department Care Team ([facility] st Contact Info) Description 05/28/2025 10:45 AM EDT Office Visit [facility] MED & PEDS [address] [place] [address] Sahil Chen CNP 505 [place] [address] documented as of this encounter Visit Diagnoses Diagnosis Chronic back pain, unspecified back location, unspecified back pain laterality Depression, unspecified depression type documented in this encounter Additional Health Concerns Assessment Noted Time PHQ-9 Depression Total Score: 15 025 2:28 PM EDT documented as of this encounter Care Teams Accounting Coordinator Relationship Specialty Start Date End Date Sahil Chen CNP PCP - General Family Medicine 10/09/24 Chris Pack Jr Associate Professor Of RadiologyHardscape Foreman 09/04/24 documented as of this encounter
--- OUTSIDE RECORDS SUMMARY | 2025-05-13 00:35 | XMS_ITS | Encounter Summary ---
Author Organization [employer] Address [address] [facility] [address] 7t [place] [address] Care Team Providers Care Child Development Professor Name Role Phone Amna Urrutia Primary Care Provider [phone] Name, Everett ROSE Primary Care Provider [phone] Sahil Chen CNP Primary Care Provider [phone] Reason for Visit * Reason Comments Med Refill Encounter Details Date Type Department Care Team ([facility] st Contact Info) Description 09/11/2023 Refill [facility] MEDICINE [address] [place], [place] [phone] Amna Urrutia FNP [address] [place] [address] Type 1 diabetes mellitus with hyperglycemia ([facility]) Social History Tobacco Use Types Packs/Day Years [...] 10:45 AM EDT Office Visit [facility] MED & PEDS 505 [place], [place] [phone] Sahil Chen CNP 505 [place], [place] [phone] documented as of this encounter Visit Diagnoses Diagnosis Type 1 diabetes mellitus with hyperglycemia (CMS/HCC) documented in this encounter Additional Health Concerns Assessment Noted Time PHQ-9 Depression Total Score: 16 023 8:52 AM EDT documented as of this encounter Care Teams Child Development Professor Relationship Specialty Start Date End Date Amna Urrutia FNP [address] [place] [address] PCP - General Family Medicine 01/01/23 04/18/24 Everett Angulo MD [address] [place] [address] PCP - General Internal Medicine 04/19/24 10/08/24 Sahil Chen CNP [address] [place] [address] PCP - General Family Medicine 10/09/24 Chris Pack Jr Circular Gang Saw OperatorCake Mixer 09/04/24 documented as of this encounter
--- OUTSIDE RECORDS SUMMARY | 2025-05-13 00:35 | XMS_ITS | Encounter Summary ---
Author Organization [facility] Address [address] [place] [address] Phone Care Team Providers Care Mushroom Cutter Name Role Phone Santos Mueller MD Primary Care Provider [phone] Encounter Details Date Type Department Care Team (Late st Contact Info) Description 07/28/2023 Documentation Only [facility], [address] [place] [address] Santos Mueller MD [address] [place] [address] Social History Tobacco Use Types [...] on filedocumented in this encounter Care Teams Mushroom Cutter Relationship Specialty Start Date End Date Santos Mueller MD [address] [place] [address] PCP - General Emergency Medicine 07/28/23 documented as of this encounter
--- OUTSIDE RECORDS SUMMARY | 2025-05-13 00:36 | XMS_ITS | Encounter Summary ---
Author Organization [employer] Address [address] [facility] 7t [place] [address] Care Team Providers Care Can Sterilizer Name Role Phone Amna Urrutia Primary Care Provider [phone] Name, Everett ROSE Primary Care Provider [phone] Sahil Chen CNP Primary Care Provider [phone] Reason for Visit * Reason Onset Date Comments Med Refill 05/03/2023 Encounter Details Date Type Department Care Team (Late st Contact Info) Description 05/03/2023 Refill [facility] [address] [place] [address] Amna Urrutia FNP [address] [place] [address] Type 1 diabetes mellitus with hyperglycemia ([facility]/HCC) Social History Tobacco Use Types Packs/Day Years [...] [facility] [address] [place], [place] [phone] Sahil Chen CNP [address] [place] [address] documented as of this encounter Visit Diagnoses Diagnosis Type 1 diabetes mellitus with hyperglycemia (CMS/HCC) documented in this encounter Additional Health Concerns Assessment Noted Time PHQ-9 Depression Total Score: 16 04/17/ 023 8:52 AM EDT documented as of this encounter Care Teams Can Sterilizer Relationship Specialty Start Date End Date Amna Urrutia FNP [address] [place] [address] PCP - General Family Medicine 01/01/23 04/18/24 Everett Angulo MD [address] [place] [address] PCP - General Internal Medicine 04/19/24 10/08/24 Sahil Chen CNP [address] [place] [address] PCP - General Family Medicine 10/09/24 Chris Pack Jr Roller HelperFlight Superintendent 09/04/24 documented as of this encounter
--- OUTSIDE RECORDS SUMMARY | 2025-05-13 00:36 | XMS_ITS | Encounter Summary ---
Author Organization [facility] Address [address] [place] [address] Phone Care Team Providers Care Litharge Supervisor Name Role Phone Santos Mueller MD Primary Care Provider [phone] Encounter Details Date Type Department Care Team (Late st Contact Info) Description 08/05/2024 Documentation Only [facility], [address] [place] [address] Jessica Sprague [address] [place] [address] Social History Tobacco Use Types [...] on filedocumented in this encounter Care Teams Litharge Supervisor Relationship Specialty Start Date End Date Santos Mueller MD [address] [place] [address] PCP - General Emergency Medicine 07/28/23 documented as of this encounter
--- OUTSIDE RECORDS SUMMARY | 2025-05-13 00:36 | XMS_ITS | Encounter Summary ---
Author Organization [facility] Address [address] [place] [address] Phone Care Team Providers Care Bread Jockey Name Role Phone Santos Mueller MD Primary Care Provider [phone] Encounter Details Date Type Department Care Team (Late st Contact Info) Description 08/05/2024 Documentation Only [facility] [place], [address] [place] [address] Jessica Sprague [address] [place] [address] Social History Tobacco Use Types [...] on filedocumented in this encounter Care Teams Bread Jockey Relationship Specialty Start Date End Date Santos Mueller MD [address] [place] [address] PCP - General Emergency Medicine 07/28/23 documented as of this encounter
--- OUTSIDE RECORDS SUMMARY | 2025-05-13 00:36 | XMS_ITS | Encounter Summary ---
Author Organization [employer] Address [address] 7[address] [place] [address] Care Team Providers Care Macaroni Maker Name Role Phone Sahil Chen CNP Primary Care Provider [phone] Reason for Visit * Reason Onset Date Comments Nurse Triage 03/17/2025 Encounter Details Date Type Department Care Team (Late st Contact Info) Description 03/17/2025 Telephone [facility] MEDICINE [address] [place] [address] Sahil Chen CNP [address] [place] [address] Nurse Triage Social History Tobacco Use Types [...] and testicular pain. Pt was seen in [facility] ED 03/16/25report is on the [...] with good effect. ASK apt with PCP [place] @ 1000am. 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 Contact pt at [phone] documented in this encounter Plan of Treatment Upcoming Encounters Date Type Department Care Team (Late st Contact Info) Description 05/28/2025 10:45 AM EDT Office Visit [facility] ED MED & PEDS [address] [place] [address] Sahil Chen CNP [address] [place] [address] documented as of this encounter Visit Diagnoses Not on filedocumented in this encounter Additional Health Concerns Assessment Noted Time PHQ-9 Depression Total Score: 19 11/27/2 025 3:09 PM EDT documented as of this encounter Care Teams Macaroni Maker Relationship Specialty Start Date End Date Sahil Chen CNP PCP - General Family Medicine 10/09/24 Chris Pack Jr Actuarial DirectorCredit Correspondence Clerk 09/04/24 documented as of this encounter
--- OUTSIDE RECORDS SUMMARY | 2025-05-13 00:36 | XMS_ITS | Encounter Summary ---
Author Organization [employer] Address [address] [facility] [address] [place] [address] Care Team Providers Care Vocational Training Instructor Name Role Phone Amna Urrutia Primary Care Provider [phone] Name, Everett ROSE Primary Care Provider [phone] Sahil Chen CNP Primary Care Provider [phone] Reason for Visit * Reason Onset Date Comments Med Refill 04/29/2023 Encounter Details Date Type Department Care Team ([facility] Contact Info) Description 04/29/2023 Refill [facility] MEDICINE [address] [place], [place] [phone] Sandra Leal MD [address] [place] [address] Social History Tobacco Use Types Packs/Day Years [...] Upcoming Encounters Date Type Department Care Team ([facility] Contact Info) Description 05/28/2025 10:45 AM EDT Office Visit [facility] CHC MED & PEDS [address] [place], [place] [phone] Sahil Chen CNP [address] [place] [address] documented as of this encounter Visit Diagnoses Not on filedocumented in this encounter Additional Health Concerns Assessment Noted Time PHQ-9 Depression Total Score: 16 023 8:52 AM EDT documented as of this encounter Care Teams Vocational Training Instructor Relationship Specialty Start Date End Date Amna Urrutia FNP [address] [place] [address] PCP - General Family Medicine 01/01/23 04/18/24 Name, MD Everett [address] [place] [address] PCP - General Internal Medicine 04/19/24 10/08/24 Sahil Chen CNP [address] [place] [address] PCP - General Family Medicine 10/09/24 Chris Pack Jr Asbestos MicroscopistHorse Groomer 09/04/24 documented as of this encounter
--- OUTSIDE RECORDS SUMMARY | 2025-05-13 00:36 | XMS_ITS | Encounter Summary ---
Author Organization [employer] Address [address] [facility] 7t [place] [address] Care Team Providers Care Java Jsf Developer Name Role Phone Amna Urrutia Primary Care Provider [phone] Name, Everett ROSE Primary Care Provider Sahil Chen CNP Primary Care Provider [phone] Reason for Visit * Reason Onset Date Comments Med Refill 05/01/2023 Encounter Details Date Type Department Care Team (Late st Contact Info) Description 05/01/2023 Refill [facility] [address] [place], [place] [phone] Lakshmi Womack FNP [address] [place] [address] Type 1 diabetes mellitus with hyperglycemia ([facility]) Social History Tobacco Use Types Packs/Day Years [...] Description 05/28/2025 10:45 AM EDT Office Visit [facility] CHC MED & PEDS [address] [place] [address] Sahil Chen CNP [address] [place] [address] documented as of this encounter Visit Diagnoses Diagnosis Type 1 diabetes mellitus with hyperglycemia (CMS/HCC) documented in this encounter Additional Health Concerns Assessment Noted Time PHQ-9 Depression Total Score: 16 04/17/ 023 8:52 AM EDT documented as of this encounter Care Teams Java Jsf Developer Relationship Specialty Start Date End Date Amna Urrutia FNP [address] [place] [address] PCP - General Family Medicine 01/01/23 04/18/24 Everett Angulo MD [address] [place] [address] PCP - General Internal Medicine 04/19/24 10/08/24 Sahil Chen CNP [address] [place] [address] PCP - General Family Medicine 10/09/24 Chris Pack Jr Railway Signal ElectricianNuclear Medicine Chief Technologist 09/04/24 documented as of this encounter
--- OUTSIDE RECORDS SUMMARY | 2025-05-13 00:36 | XMS_ITS | Encounter Summary ---
Author Organization [employer] Address [address] 7[address] [place] [address] Care Team Providers Care Long Term Care Phlebotomist Name Role Phone Sahil Chen CNP Primary Care Provider [phone] Reason for Visit * Reason Comments Med Refill Encounter Details Date Type Department Care Team (Late st Contact Info) Description 01/09/2025 Refill [facility] MEDICINE [address] [place] [address] Sahil Chen CNP [address] [place], [place] [phone] Type 1 diabetes mellitus with hyperglycemia (CMS/[facility]) Social History Tobacco Use Types Packs/Day [...] Upcoming Encounters Date Type Department Care Team ([facility] st Contact Info) Description 05/28/2025 10:45 AM EDT Office Visit [facility] MED & PEDS [address] [place] [address] Sahil Chen CNP [address] [place] [address] documented as of this encounter Visit Diagnoses Diagnosis Type 1 diabetes mellitus with hyperglycemia (CMS/HCC) documented in this encounter Additional Health Concerns Assessment Noted Time PHQ-9 Depression Total Score: 19 025 3:09 PM EDT documented as of this encounter Care Teams Long Term Care Phlebotomist Relationship Specialty Start Date End Date Sahil Chen CNP PCP - General Family Medicine 10/09/24 Chris Pack Jr Transformer MakerToggle Press Operator 09/04/24 documented as of this encounter
--- OUTSIDE RECORDS SUMMARY | 2025-05-13 00:36 | XMS_ITS | Encounter Summary ---
Author Organization [employer] Address [address] [place] [address] Care Team Providers Care Marble Worker Name Role Phone Amna Urrutia Primary Care Provider [phone] Adele, Everett ROSE Primary Care Provider Sahil Chen CNP Primary Care Provider [phone] Reason for Visit * Reason Onset Date Comments reaction to medication 10/24/2022 Encounter Details Date Type Department Care Team ([facility] st Contact Info) Description 10/24/[address] [facility] ADULT DENTAL [address] [place] [address] Marycruz Oseguera DDS [address] [place] [address] reaction to medication Social History Tobacco Use [...] Description 05/28/2025 10:45 AM EDT Office Visit [facility] MED & PEDS [address] [place] [address] Sahil Chen CNP [address] [place] [address] documented as of this encounter Visit Diagnoses Not on filedocumented in this encounter Care Teams Marble Worker Relationship Specialty Start Date End Date Amna Urrutia FNP [address] [place] [address] PCP - General Family Medicine 01/01/23 04/18/24 Everett Angulo MD [address] [place] [address] PCP - General Internal Medicine 04/19/24 10/08/24 Sahil Chen CNP [address] [place] [address] PCP - General Family Medicine 10/09/24 Chris Pack Jr Safety Patrol OfficerProduct Development Chemist 09/04/24 documented as of this encounter
--- OUTSIDE RECORDS SUMMARY | 2025-05-13 00:36 | XMS_ITS | Encounter Summary ---
Author Organization [facility] Address [address] [place] [address] Phone Care Team Providers Care Infrastructure Manager Name Role Phone Santos Mueller MD Primary Care Provider [phone] Encounter Details Date Type Department Care Team (Late st Contact Info) Description 08/05/2024 Documentation Only [facility], [address] [place] [address] Jessica Sprague [address] [place] [address] Social History Tobacco Use Types [...] on filedocumented in this encounter Care Teams Infrastructure Manager Relationship Specialty Start Date End Date Santos Mueller MD [address] [place] [address] PCP - General Emergency Medicine 07/28/23 documented as of this encounter
--- OUTSIDE RECORDS SUMMARY | 2025-05-13 00:36 | XMS_ITS | Encounter Summary ---
Author Organization [employer] Address [address] [facility] 7t [place] [address] Care Team Providers Care Control Panel Assembler Name Role Phone Amna Urrutia Primary Care Provider [phone] Name, Everett ROSE Primary Care Provider [phone] Sahil Chen CNP Primary Care Provider [phone] Reason for Visit * Reason Onset Date Comments Med Refill 03/21/2023 Encounter Details Date Type Department Care Team ([facility] Contact Info) Description 03/21/2023 Refill [facility] MEDICINE [address] [place] [address] Amna Urrutia FNP [address] [place] [address] Social History Tobacco Use Types Packs/Day Years [...] Upcoming Encounters Date Type Department Care Team ([facility] Contact Info) Description 05/28/2025 10:45 AM EDT Office Visit [facility] CHC MED & PEDS [address] [place], [place] [phone] Sahil Chen CNP [address] [place], [place] [phone] documented as of this encounter Visit Diagnoses Not on filedocumented in this encounter Additional Health Concerns Assessment Noted Time PHQ-9 Depression Total Score: 7 01/07/20 23 9:10 AM EDT documented as of this encounter Care Teams Control Panel Assembler Relationship Specialty Start Date End Date Amna Urrutia FNP [address] [place] [address] PCP - General Family Medicine 01/01/23 04/18/24 Everett Angulo MD [address] [place] [address] PCP - General Internal Medicine 04/19/24 10/08/24 Sahil Chen CNP [address] [place] [address] PCP - General Family Medicine 10/09/24 Chris Pack Jr Cloth Bleaching Range Back TenderStringer Machine Tender 09/04/24 documented as of this encounter
--- OUTSIDE RECORDS SUMMARY | 2025-05-13 00:36 | XMS_ITS | Encounter Summary ---
Author Organization [employer] Address [address] [place] [address] Care Team Providers Care Hydroelectric Powerplant Supervisor Name Role Phone Sahil Chen CNP Primary Care Provider [phone] Reason for Visit * Reason Comments Med Refill Encounter Details Date Type Department Care Team (Late st Contact Info) Description 02/17/2025 Refill [facility] MEDICINE [address] [place] [address] Sahil Chen CNP [address] [place], [place] [phone] Type 1 diabetes mellitus with hyperglycemia (CMS/[facility]) Social History Tobacco Use Types [...] Upcoming Encounters Date Type Department Care Team ([facility] st Contact Info) Description 05/28/2025 10:45 AM EDT Office Visit [facility] MED & PEDS [address] [place] [address] Sahil Chen CNP [address] [place] [address] documented as of this encounter Visit Diagnoses Diagnosis Type 1 diabetes mellitus with hyperglycemia (CMS/HCC) documented in this encounter Additional Health Concerns Assessment Noted Time PHQ-9 Depression Total Score: 19 025 3:09 PM EDT documented as of this encounter Care Teams Hydroelectric Powerplant Supervisor Relationship Specialty Start Date End Date Sahil Chen CNP PCP - General Family Medicine 10/09/24 Chris Pack Jr Drink Box MechanicCharge Hand 09/04/24 documented as of this encounter
--- OUTSIDE RECORDS SUMMARY | 2025-05-13 00:36 | XMS_ITS | Clinical Summary ---
Author Organization [employer] Address [address] [facility] 7[address] [place] [address] Care Team Providers Care Conference Translator Name Role Phone ChenSahil JUICE TESTER Primary Care Provider [phone] Allergies Active Allergy Reactions Criticality Noted Date [...] record from that organization. Continuous Blood Gluc Clay Stain Mixer (FreeStyle Shiraz 2 [place]) deviceIndications: Type 1 diabetes mellitus with hyperglycemia ([facility]) Use with sensor to monitor [...] 025 Active Blood Glucose Monitoring Suppl (FreeStyle [place] Lite) w/Device kit 1 each by Other [...] with hyperglycemia 11/19 Overview (11/28/2024): Follows with [facility] Endo LITO 09/2024 Has CGM in [...] Pt last f/u with GI 08/2024 at [facility], per provider note: Plan: - Labs [...] and care PLAN: 1. Follow up with [facility]: Recommended for follow-up: TBD 2. Patient goal is stabilization of symptoms. 3. Behavioral Recommendations a. Patient was sectioned and [facility] ambulance History of concussion 05/31/2023 [...] depressive disorder, recurrent episode with anxious distress ([facility]/HCC) Patient ready to address current needs [...] to schedule apt ---I discussed today w photo lab specialist and request to try to schedule [...] f up until can start care w regulatory affairs coordinator Type 1 diabetes mellitus without complication Overview (03/19/2025): Follows with [facility] endo, [place]IT[place] 12/[address] [...] (03/21/2024 3:41 PM EDT): Has apt w Manual Arts Therapist next week to start care Assessment & [...] PM EDT): Reports diagnosed approx 2019 in [place] Referral to establish with GI provider placed [...] organization. Date Type Department Care Team Description 05/12/2025 Refill [facility] [address] [place] [address] Sahil Chen CNP Chronic back pain, unspecified back location, unspecified back pain laterality; Depression, unspecified depression type 05/11/2025 Orders Only [facility] External Provider, [facility] 04/25/2025 Refill [facility] [address] [place] [address] Sahil Chen CNP Chronic back pain, unspecified back location, unspecified back pain laterality 04/22/2025 Results Follow-Up [facility] [address] [place] [address] Sahil Chen CNP MR Lumbar Spine w/o Contrast 04/09/2025 9:00 AM EDT Office Visit [facility] [address] [place] [address] Sahil Chen CNP Chronic back pain, unspecified back location, unspecified back pain laterality (Primary Dx); Depression, unspecified depression type 04/09/2025 Travel 04/08/2025 Telephone [facility] [address] [place] [address] Sahil Chen CNP Chart Prep 04/03/2025 Telephone [facility] [address] [place] [address] Sahil Chen CNP 04/02/2025 Telephone [facility] [address] [place] [address] Sahil Chen CNP 04/01/2025 Telephone [facility] [address] [place] [address] Sahil Chen CNP Medication Question 03/24/2025 Orders Only [facility] [address] [place] [address] Sahil Chen CNP Type 1 diabetes mellitus with hyperglycemia (CMS/HCC) 03/19/2025 10:00 AM EDT Office Visit [facility] [address] [place] [address] Sahil Chen CNP Depression, unspecified depression type (Primary Dx); Chronic back pain, unspecified back location, unspecified back pain laterality; Type 1 diabetes mellitus without complication (CMS/HCC) 03/19/2025 Travel 03/17/2025 Telephone [facility] [address] [place] [address] Sahil Chen CNP Nurse Triage 03/16/2025 Orders Only GENERIC EXTERNAL DATA DEPARTMENT Provider, Generic External Data 02/17/[address] [address] Sahil Chen CNP Type 1 diabetes mellitus [...] 05/28/2025 10:45 AM EDT Office Visit [facility] [address] [place], [place] [phone] Sahil Chen, JUICE TESTER [address] [place], [place] [phone] Health Maintenance Due Date Last Done Comments [...] Lipid Panel 11/14/2024 11/15/2023 COVID-19 Vaccine ( season) 2025 Influenza Vaccine (#1) 2025 06/08/2016 [...] 2 VIEWS Routine 05/11/2025 9:52 PM EDT MR LUMBAR SPINE WO CONTRAST Routine 04/18/2025 [...] Relevant to Health Maintenance Results * XR Thoracic Spine 2 Views (05/11/2025 9:53 PM EDT) Anatomical Region Laterality Modality Spine, T-spine Radiographic Sheri ging 05/11/2025 9:53 PM EDT Narrative 05/11/2025 9:55 PM EDT [address] [address] XRay Report Signed Patient: Bradford Torres MR#: [id number] : 1995 Acct:[id number] Age/Sex: 30 / M ADM Date: 05/11/25 Loc: .ED Attending Dr: Ordering Physician: Gema Wolff DO Date of Service: 05/11/25 Procedure(s): XR thoracic spine 2V Accession Number(s): [id number] cc: Gema Wolff DO; Sahil Chen NP Reason for Exam: back pain CLINICAL HISTORY: back pain 2 views thoracic spine Comparison: X-rays of the thoracic spine from 05/07/2024 Findings: Lateral imaging includes a swimmer's view imaged. No significant change of the imaged vertebral heights or alignments. Cervicothoracic junction is obscured. Straightening of the imaged cervical lordosis in the [id number]-ko-lxyr. No consolidation of the imaged lungs. IMPRESSION: 1. Negative x-rays of the thoracic spine, without significant change compared to 1 year prior 2. Straightening of the imaged cervical lordosis. This document has been electronically signed by: Perry Ferrera MD on 05/11/2025 21:53:59 Dictated By: Perry Ferrera MD Signed By: <Electronically signed by Perry Ferrera MD in OV> 05/11/252154 DD/ 52 TD/TT: 05/11/252152 Cement Tile Maker: Procedure Note Donotuseinterpreter, Image - 05/11/[address] [address] XRay Report Signed Patient: Bradford Torres JMR#: [id number] : 1995Acct:[id number] Age/Sex: 30 / MADM Date: 05/11/25 Loc: HO.ED Attending Dr: Ordering Physician: Gema Wolff DO Date of Service: 05/11/25 Procedure(s): XR thoracic spine 2V Accession Number(s): [id number] cc: Gema Wolff DO; Sahil Chen NP Reason for Exam: back pain CLINICAL HISTORY: back pain 2 views thoracic spine Comparison: X-rays of the thoracic spine from 05/07/2024 Findings: Lateral imaging includes a swimmer's view imaged. No significant change of the imaged vertebral heights or alignments. Cervicothoracic junction is obscured. Straightening of the imaged cervical lordosis in the [id number]-vb-xsjs. No consolidation of the imaged lungs. IMPRESSION: 1. Negative x-rays of the thoracic spine, without significant change compared to 1 year prior 2. Straightening of the imaged cervical lordosis. This document has been electronically signed by: Perry Ferrera MD on 05/11/2025 21:53:59 Dictated By: Perry Ferrera MD Signed By: <Electronically signed by Perry Ferrera MD in OV> 05/11/252154 DD/ 52 TD/TT: 05/11/252152 Cement Tile Maker: [facility] External Provider IMG XR PROCEDURES Edited Result - Final * XR Chest 2 Views (05/11/2025 9:52 PM EDT) Anatomical Region Laterality Modality Chest Radiographic Sheri ging 05/11/2025 9:52 PM EDT Narrative 05/11/2025 9:54 PM EDT [address] [address] XRay Report Signed Patient: Bradford Torres MR#: [id number] : 1995 Acct:[id number] Age/Sex: 30 / M ADM Date: 05/11/25 Loc: ONEYDA.ED Attending Dr: Ordering Physician: Gema Wolff DO Date of Service: 05/11/25 Procedure(s): XR chest 2V Accession Number(s): [id number] cc: Gema Wolff DO; Sahil Chen FIRE TOWER KEEPER Reason for Exam: chest pain CLINICAL HISTORY: [...] in OV> 05/11/252152 DD/ 51 TD/TT: 05/11/252151 Cement Tile Maker: Procedure Note Donotuseinterpreter, Image - 05/11/[address] [address] XRay Report Signed Patient: Bradford Torres JMR#: [id number] : 1995Acct:[id number] Age/Sex: 30 / MADM Date: 05/11/25 Loc: ONEYDA.ED Attending Dr: Ordering Physician: Gema Wolff DO Date of Service: 05/11/25 Procedure(s): XR chest 2V Accession Number(s): [id number] cc: Gema Wolff DO; Sahil Chen FIRE TOWER KEEPER Reason for Exam: chest pain CLINICAL HISTORY: [...] in OV> 05/11/252152 DD/ 51 TD/TT: 05/11/252151 Cement Tile Maker: [facility] External Provider IMG XR PROCEDURES Edited Result - Final * MR Lumbar Spine w/o Contrast (04/18/2025 5:56 PM EDT) Anatomical Region Laterality Modality Spine, L-spine Magnetic Resonan ce 04/18/2025 5:56 PM EDT Narrative 04/21/2025 12:30 PM EDT [address] [address] Magnetic Resonance Report Signed Patient: Bradford Torres MR#: [id number] : 1995 Acct:[id number] Age/Sex: 30 / M ADM Date: 04/18/25 Loc: HO.MRI Attending Dr: Sahil Chen FIRE TOWER KEEPER Ordering Physician: Sahil Chen FIRE TOWER KEEPER Date of Service: 04/18/25 Procedure(s): MR lumbar spine wo con Accession Number(s): [id number] cc: Sahil Chen FIRE TOWER KEEPER EXAMINATION: MR LUMBAR SPINE WITHOUT CONTRAST CLINICAL [...] Tyler MD in OV> 04/21/25 1227 DD/ 55 TD/TT: 04/18/251916 Cement Tile Maker: Procedure Note Donotuseinterpreter, Image - 04/21/2025 [place] [address] Magnetic Resonance Report Signed Patient: Bradford Torres JMR#: [id number] : 1995Acct:[id number] Age/Sex: Date: 04/18/25 Loc: HO.MRI Attending Dr: Sahil Chen FIRE TOWER KEEPER Ordering Physician: Sahil Chen NP Date of Service: 04/18/25 Procedure(s): MR lumbar spine wo con Accession Number(s): [id number] cc: Sahil Chen FIRE TOWER KEEPER EXAMINATION: MR LUMBAR SPINE WITHOUT CONTRAST CLINICAL [...] Azeem Bullard MD 04/21/2025 12:27 PM EDT Dictated By: Azeem Dueñas MD Signed By: <Electronically signed by Azeem Tyler MDin OV> 04/21/25 1227 DD/ 55 TD/TT: 04/18/251916 Cement Tile Maker: [facility] IMG MRI PROCEDURES Edited Result - Final * (ABNORMAL) POCT HGB A1C (03/19/2025 10:50 AM EDT) [facility] Hemoglobin A1C 8.3(A) 4.0 - 5.7 % QC Media Lot # [id number] Lot# Expiration Date Blood 03/19/2025 10:5 0 AM EDT [facility] POINT OF CARE TEST ENTER/ EDIT ORDERABLES Final Result * POCT Glucose (03/19/2025 10:50 AM EDT) Pathologist [facility] Glucose Blood, POC 140 60 - 200 mg/dL QC Media Lot # [id number] Lot# Expiration Date Blood Capillary blood specimen / Unknown 03/19/2025 10:50 AM EDT [facility] Chen JUICE TESTER POINT OF CARE TEST ENTER/ EDIT ORDERABLES Final Result * CT Lumbar Spine w/o Contrast (03/16/2025 9:42 AM EDT) Anatomical Region Laterality Modality Spine, L-spine Computed Tomogra phy 03/16/2025 9:42 AM EDT Narrative 03/16/2025 9:43 AM EDT [address] [address] [address] Scan Report Signed Patient: Bradford Torres MR#: [id number] : 1995 Acct:[id number] Age/Sex: 30 / M ADM Date: 03/16/25 Loc: HO.ED Attending Dr: Ordering Physician: Marleni Boone NP Date of Service: 03/16/25 Procedure(s): CT lumbar spine wo IV con Accession Number(s): [id number] cc: Marleni Boone NP; [facility] Report Number: [id number]: Total DLP = 361.00 mGy-cm CLINICAL HISTORY: [...] in OV> 03/16/25942 DD/ 1 TD/TT: 03/16/25941 Cement Tile Maker: Procedure Note Geovanna, Image - 03/16/[address] [place] [address] [address] Scan Report Signed Patient: Bradford Torres JMR#: [id number] : 1995Acct:[id number] Age/Sex: 30 / MADM Date: 03/16/25 Loc: HO.ED Attending Dr: Ordering Physician: Marleni Boone NP Date of Service: 03/16/25 Procedure(s): CT lumbar spine wo IV con Accession Number(s): [id number] cc: Marleni Boone NP; [facility] Report Number: [id number]: Total DLP = 361.00 mGy-cm CLINICAL HISTORY: [...] MD on 03/16/2025 09:42:50 Dictated By: Abraham aHque MD Signed By: <Electronically signed by Abraham Haque MD in OV> 03/16/25942 DD/ 1 TD/TT: 03/16/25941 Cement Tile Maker: [facility] External Provider IMG CT PROCEDURES Final Result * CT Head w/o Contrast (03/16/2025 9:38 AM EDT) Anatomical Region Laterality Modality Head, Neck Computed Tomogra phy 03/16/2025 9:38 AM EDT Narrative 03/16/2025 9:40 AM EDT [address] [address] [address] Scan Report Signed Patient: Bradford Torres MR#: [id number] : 1995 Acct:[id number] Age/Sex: 30 / M ADM Date: 03/16/25 Loc: HO.ED Attending Dr: Ordering Physician: Marleni Boone NP Date of Service: 03/16/25 Procedure(s): CT head/brain wo IV con Accession Number(s): [id number] cc: Marleni Boone NP; [facility] Report Number: [id number]: Total DLP = 757.00 mGy-cm CLINICAL HISTORY: [...] in OV> 03/16/25938 DD/ 7 TD/TT: 03/16/25937 Cement Tile Maker: Procedure Note Donotuseinterpreter, Image - 03/16/[address] [address] [address] Scan Report Signed Patient: Bradford Torres JMR#: [id number] : 1995Acct:[id number] Age/Sex: 30 / MADM Date: 03/16/25 Loc: HO.ED Attending Dr: Ordering Physician: Marleni Boone NP Date of Service: 03/16/25 Procedure(s): CT head/brain wo IV con Accession Number(s): [id number] cc: Marleni Boone FIRE TOWER KEEPER; Sahil Chen Report Number: [id number]: Total DLP = 757.00 mGy-cm CLINICAL HISTORY: [...] signed by Abraham Haque MD in OV> 03/16/2539 DD/ 7 TD/TT: 03/16/25937 Cement Tile Maker: [facility] External Provider IMG CT PROCEDURES Final Result * (ABNORMAL) CBC auto differential (03/16/2025 9:02 AM EDT) White Blood Count 8.5 4.8 - 10.8 X10*3/uL [facility] Red Blood Count 4.92 4.60 - 5.80 X10*6/uL [facility] Hemoglobin 12.9(L) 14.0 - 18.0 g/dl [facility] Hematocrit 39.0(L) 42.0 - 52.0 % [facility] Mean Corpuscular Volume 79.3(L) 80.0 - 98.0 fL [facility] Mean Corpuscular Hemoglobin 26.2(L) 27.0 - 33.0 pg [facility] Mean Corpuscular HGB Conc 33.1 31.0 - 36.0 g/dl [facility] Red Cell Distribution Width 14.6 11.0 - 16.0 % [facility] Platelet Count 248 160 - 400 X10*3/uL [facility] Mean Platelet Volume 9.6 9.4 - 12.4 fL [facility] Neutrophils Percent Auto 70.5 45 - 73 % [facility] Imm Gran Pct Auto 0.2 0.0 - 0.4 % [facility] Lymphocytes Percent Auto 22.2 20 - 40 % [facility] Monocytes Percent Auto 5.4 2 - 11 % [facility] Eosinophils Percent Auto 1.1 0 - 4 % [facility] Basophils Percent Auto 0.6 0 - 2 % [facility] NRBC Pct Auto 0.0 0.0 - 0.2 /100WBC [facility] Neutrophils Absolute Auto 6.0 2.0 - 8.3 x10*3/uL [facility] Imm Gran Abs Auto 0.02 0.00 - 0.03 X10*3/uL [facility] Lymphocytes Absolute Auto 1.9 1.2 - 4.9 X10*3/uL [facility] Monocytes Absolute Auto 0.5 0.1 - 1.2 X10*3/uL [facility] Eosinophils Absolute Auto 0.1 0.0 - 0.4 X10*3/uL [facility] Basophils Absolute Auto 0.1 0.0 - 0.2 X10*3/uL [facility] NRBC Abs Auto 0.000 0.0 - 0.012 X10*3/uL [facility] 03/16/2025 9:02 AM EDT 03/16/2025 9:05 AM EDT us Generic External Data Provider LAB BLOOD ORDERAB LES Final Result [facility] [address] [place] [address] [phone] * Hepatic Function Panel (03/16/2025 9:02 AM EDT) Bilirubin, Total 0.4 0.0 - 1.0 mg/dL [facility] Bilirubin, Direct 0.1 0.0 - 0.5 mg/dL [facility] Aspartate Amino Transferase 25 5 - 37 U/L [facility] Comment:Slight Hemolysis.Int erpret result with caution. Alanine Aminotransferase 16 0 - 40 U/L [facility] Total Protein 7.3 6.5 - 8.0 g/dL [facility] Albumin Level 4.3 3.5 - 5.0 g/dL [facility] Alkaline Phosphatase 74 39 - 117 U/L [facility] 03/16/2025 9:02 AM EDT 03/16/2025 9:05 AM EDT us Generic External Data Provider LAB BLOOD ORDERAB LES Final Result [facility] [address] [place] [phone] * (ABNORMAL) Basic Metabolic Panel (03/16/2025 9:02 AM EDT) Sodium 140 135 - 145 mmol/L [facility] Potassium 4.4 3.3 - 5.1 mmol/L [facility] Comment:Slight Hemolysis.Int erpret result with caution. Chloride 106 96 - 108 mmol/L [facility] Carbon Dioxide 23 22 - 29 mmol/L [facility] Anion Gap 15 12 - 20 [facility] Urea Nitrogen (BUN) 19(H) 9 - 16 mg/dL [facility] Creatinine, Serum 0.66 0.5 - 1.4 mg/dL [facility] Creatinine Clr Calc Pharmacy 143.0 [facility] Comment:eGFR (calculated fro m the MDRD study equation) and eCrCl(calculated from the Cockcroft-Gault equation) are based ondifferent parameters and may not yield comparable results.If eCrCl result is absurd, please check patient'sheight/weight. Estimated Glomerular Filt Rate >60 [facility] Comment:Chronic Kidney Disea se: Estimated GFR < 60 mL/min/1.04y7Slmfuw Kidney Disease: Estimated GFR < 15 mL/min/1.73m2 Glucose 204(H) 60 - 115 mg/dL [facility] Calcium 9.3 8.4 - 10.2 mg/dL [facility] 03/16/2025 9:02 AM EDT 03/16/2025 9:05 AM EDT Generic External Data Provider LAB BLOOD ORDERAB LES Final Result Performing Organization Address City/[facility]/ZIP Co de Phone Number [facility] [address] [place] [phone] * Hepatitis C Antibody with Reflex to HCV, RNA, Quantitative, Real-Time PCR (11/15/2023 1:28 PM EDT) Hepatitis C Antibody Nonreactive Nonreactive [facility] Comment:Antibodies to HCV no t detected; does not exclude early acuteHCV infection. Blood Venous blood specimen / Unknown 11/15/2023 1:28 PM EDT 11/15/2023 4:04 PM EDT us Amna Urrutia SOLE CEMENTER LAB BLOOD ORDERABLES Final Resu lt Performing Organization Address [facility]/ZIP Co de Phone Number [facility] [address] [place] [phone] * Lipid Panel, Standard (11/15/2023 1:28 PM EDT) Triglycerides 56 <150 mg/dL [facility] Comment:Desirable Triglyceri de: less than 150 mg/dLBorderline High Triglyceride 150-199 mg/dLHigh Triglyceride: 200-499 mg/dLVery High Triglyceride: greater than or equal to 5OO mg/dL Cholesterol 145 <200 mg/dL [facility] Comment:Desirable Cholestero l: less than 200 mg/dLBorderline High Cholesterol: 200-239 mg/dLHigh Cholesterol: greater than 239 mg/dL LDL Cholesterol Calculated 84 <100 mg/dL [facility] Comment:Desirable LDL: less than 100 mg/dLNear Optimal/Above Optimal LDL: 110- 129 mg/dLBorderline High LDL: 130-159 mg/dLHigh LDL: 160-189 mg/dLVery High LDL: greater than or equal to 190 mg/dL HDL Cholesterol 50 >40 mg/dL [facility] Comment:Desirable HDL: great er than 40 mg/dL Note: This HDL assay may give artificially low results in patients with liver disease. Blood Venous blood specimen / Unknown 11/15/2023 1:28 PM EDT 11/15/2023 4:04 PM EDT [facility] LAB BLOOD ORDERABLES Final Resu lt Performing Organization Address City/[facility]/ZIP Co de Phone Number [facility] [address] [place] [phone] * HIV-1 RNA, Quantitative, Real-Time PCR with Reflex to Genotype (RTI, PI, Integrase) (01/06/2023 10:25 AM EDT) Pathologist [facility] HIV 1 RNA, QN PCR NOT DETECTED copies/mL [facility], HIV 1 RNA, QN PCR NOT DETECTED Log copies/mL [facility], Comment: REFERENCE RANGE: NOT DETECTED copies/mL NOT DETECTED Log copies/mL This test was performed using Real-Time Polymerase Chain Reaction. Reportable range is 20 to 10,000,000 copies/mL (1.30-7.00 Log copies/mL). 01/06/2023 10:2 5 AM EDT 01/06/2023 10:26 AM EDT Narrative [facility] - 01/11/2023 1:53 AM EDT FASTING:NO SPECIMEN COLLECTED AT PROVIDER OFFICE. FASTING: NO [facility] LAB BLOOD ORDERABLES Final Resu lt [facility] [address] [place] [address], [place] [address] [facility], [address] [facility] [place] [address] from Last 3 Months or Most Recently Relevant to Health Maintenance Insurance [facility]SN [facility] Care Teams Conference Translator Relationship Specialty Start Date End Date Sahil Chen CNP PCP - General Family Medicine 10/09/24 Chris Pack Jr Parking Lot Attendant And CashierLead Pony Rider 09/04/24
--- OUTSIDE RECORDS SUMMARY | 2025-05-13 00:36 | XMS_ITS | Encounter Summary ---
Author Organization [employer] Address [address] [facility] [address] [place] [address] Care Team Providers Care Corporate Attorney Name Role Phone Amna Urrutia Primary Care Provider [phone] Name, Everett ROSE Primary Care Provider [phone] Sahil Chen CNP Primary Care Provider [phone] Encounter Details Date Type Department Care Team (Late Contact Info) Description 10/21/2022 Abstract [facility] [address] [place] [address] Marycruz Oseguera DDS [address] [place] [address] Social History Tobacco Use Types Packs/Day Years [...] Description 05/28/2025 10:45 AM EDT Office Visit [facility] [address] [place], [place] [phone] Sahil Chen CNP [address] [place], [place] [phone] documented as of this encounter Visit Diagnoses Not on filedocumented in this encounter Care Teams Corporate Attorney Relationship Specialty Start Date End Date Amna Urrutia FNP [address] [place], [place] [phone] PCP - General Family Medicine 01/01/23 04/18/24 Everett Angulo MD [address] [place], [place] [phone] PCP - General Internal Medicine 04/19/24 10/08/24 Sahil Chen CNP [address] [place] [address] PCP - General Family Medicine 10/09/24 Chris Pack Jr Supervisor Dry CleaningTechnology Teacher 09/04/24 documented as of this encounter
--- OUTSIDE RECORDS SUMMARY | 2025-05-13 00:36 | XMS_ITS | Encounter Summary ---
Author Organization [employer] Address [address] [facility] [address] [place] [address] Care Team Providers Care Systems Software Engineer Name Role Phone Amna Urrutia Primary Care Provider [phone] Name, Everett ROSE Primary Care Provider [phone] Sahil Chen CNP Primary Care Provider [phone] Reason for Visit * Reason Onset Date Comments Med Refill 05/01/2023 Encounter Details Date Type Department Care Team ([facility] Contact Info) Description 05/01/2023 Refill [facility] [address] [place], [place] [phone] Sandra Leal MD [address] [place] [address] Social History Tobacco Use Types Packs/Day Years [...] Upcoming Encounters Date Type Department Care Team ([facility] Contact Info) Description 05/28/2025 10:45 AM EDT Office Visit [facility] [address] [place], [place] [phone] Sahil Chen CNP [address] [place] [address] documented as of this encounter Visit Diagnoses Not on filedocumented in this encounter Additional Health Concerns Assessment Noted Time PHQ-9 Depression Total Score: 16 023 8:52 AM EDT documented as of this encounter Care Teams Systems Software Engineer Relationship Specialty Start Date End Date Amna Urrutia FNP [address] [place] [address] PCP - General Family Medicine 01/01/23 04/18/24 Name, MD Everett [address] [place] [address] PCP - General Internal Medicine 04/19/24 10/08/24 Sahil Chen CNP [address] [place] [address] PCP - General Family Medicine 10/09/24 Chris Pack Jr Costume TechnicianProject Production Engineer 09/04/24 documented as of this encounter
--- OUTSIDE RECORDS SUMMARY | 2025-05-13 00:36 | XMS_ITS | Encounter Summary ---
Author Organization [employer] Address [address] [place] [address] Care Team Providers Care Esthetician And Manager Medical Spa Name Role Phone Amna Urrutia Primary Care Provider [phone] Name, Everett ROSE Primary Care Provider [phone] Sahil Chen CNP Primary Care Provider [phone] Encounter Details Date Type Department Care Team ([facility] Contact Info) Description 01/17/2023 Orders Only [facility] MEDICINE [address] [place] [address] Amna Urrutia FNP [address] [place] [address] Social History Tobacco Use Types Packs/Day Years [...] Upcoming Encounters Date Type Department Care Team ([facility] Contact Info) Description 05/28/2025 10:45 AM EDT Office Visit [facility] MED & PEDS [address] [place], [place] [phone] Sahil Chen CNP [address] [place] [address] documented as of this encounter Visit Diagnoses Not on filedocumented in this encounter Additional Health Concerns Assessment Noted Time PHQ-9 Depression Total Score: 7 01/07/20 23 9:10 AM EDT documented as of this encounter Care Teams Esthetician And Manager Medical Spa Relationship Specialty Start Date End Date Amna Urrutia FNP [address] [place] [address] PCP - General Family Medicine 01/01/23 04/18/24 Name, MD Everett [address] [place] [address] PCP - General Internal Medicine 04/19/24 10/08/24 Sahil Chen CNP [address] [place] [address] PCP - General Family Medicine 10/09/24 Chris Pack Jr Social Worker AssistantOutreach Nurse 09/04/24 documented as of this encounter
--- OUTSIDE RECORDS SUMMARY | 2025-05-13 00:36 | XMS_ITS | Encounter Summary ---
Author Organization [employer] Address [address] [facility] [address] [place] [address] Care Team Providers Care Social Director Name Role Phone Amna Urrutia Primary Care Provider [phone] Name, Everett ROSE Primary Care Provider [phone] Sahil Chen CNP Primary Care Provider [phone] Reason for Visit * Reason Onset Date Comments Med Refill 04/28/2023 Encounter Details Date Type Department Care Team ([facility] Contact Info) Description 04/28/2023 Refill [facility] MEDICINE [address] [place], [place] [phone] Sandra Leal MD [address] [place] [address] Social History Tobacco Use Types Packs/Day Years [...] Upcoming Encounters Date Type Department Care Team ([facility] Contact Info) Description 05/28/2025 10:45 AM EDT Office Visit [facility] CHC MED & PEDS [address] [place], [place] [phone] Sahil Chen CNP [address] [place] [address] documented as of this encounter Visit Diagnoses Not on filedocumented in this encounter Additional Health Concerns Assessment Noted Time PHQ-9 Depression Total Score: 16 023 8:52 AM EDT documented as of this encounter Care Teams Social Director Relationship Specialty Start Date End Date Amna Urrutia FNP [address] [place] [address] PCP - General Family Medicine 01/01/23 04/18/24 Name, MD Everett [address] [place] [address] PCP - General Internal Medicine 04/19/24 10/08/24 Sahil Chen CNP [address] [place] [address] PCP - General Family Medicine 10/09/24 Chris Pack Jr Orthopedic Radiologic TechnologistMeal Cooker 09/04/24 documented as of this encounter
--- OUTSIDE RECORDS SUMMARY | 2025-05-13 00:36 | XMS_ITS | Clinical Summary ---
Author Organization Formerly [facility] Address [address] [place] [address] Phone Care Team Providers Care Ob Gyn Name Role Phone Gustavo Delkalyan ZAMORA Primary Care Provider [phone] Allergies Active Allergy Reactions Criticality Noted Date Comments Diphenhydramine Hcl 04/02/2025 Haloperidol 04/02/2025 Medications No known medications Encounters Date Type Department Care Team Description 05/12/2025 3:03 PM EDT - 05/12/2025 5:59 PM EDT Emergency [facility] Emergency [address] [place] [address] Discharge Disposition: Left Without Being Seen 04/02/2025 1:57 PM EDT - 04/02/2025 9:38 PM EDT Emergency [facility] Emergency [address] [place] [address] Kenneth Shane MD Discharge Disposition: Left Against [...] 02/07/2014 INFLUENZA VACCINE (#1) 2025 COVID-19 VACCINE ( - 2023-2 5 season) 2025 Adult Td,Tdap Booster 11/07/2033 [...] Glucose, POCT 54(L) 70 - 100 mg/dL [facility] 04/02/2025 7:41 PM EDT 04/02/2025 7:55 PM EDT us Kenneth Shane MD POINT OF CARE TEST ORDERA BLES Final Result Performing Organization Address City/[facility]/ZIP Co de Phone Number [address] [address] * ECG 12-LEAD (04/02/2025 3:03 PM EDT) Ventricular Rate EKG/MIN 81 BPM [facility] Atrial Rate 81 BPM [facility] NH Interval 142 ms [facility] QRS Duration 102 ms [facility] QT Interval 376 ms [facility] QTC Interval 436 ms [facility] R Wave [place] -75 degrees [facility] T Wave [place] 13 degrees [facility] 04/02/2025 3:03 PM EDT 04/02/2025 5:55 PM EDT Narrative [facility] - 04/02/2025 5:55 PM EDT Normal sinus rhythm with sinus arrhythmia Left anterior fascicular block Abnormal ECG No previous ECGs available Confirmed by Jonny ZELAYA ([id number]) on 04/02/2025 5:55:23 PM us Kenneth Shane MD ECG ORDERABLES Final Res ult [facility] * Ethanol, blood (04/02/2025 2:39 PM EDT) ETHANOL <10 <10 mg/dL [facility] Blood 04/02/2025 2:39 PM EDT 04/02/2025 2:44 PM EDT us Kenneth Shane MD LAB BLOOD ORDERABLES Olga l Result Performing Organization Address City/[facility]/ZIP Co de Phone Number [address] [address] * LFTs (hepatic panel) (04/02/2025 2:39 PM EDT) ALKALINE PHOSPHATASE 82 39 - 117 U/L [facility] TOTAL BILIRUBIN 0.8 0.0 - 1.2 mg/dL [facility] DIRECT BILIRUBIN 0.2 0.0 - 0.2 mg/dL [facility] Bilirubin (Indirect) 0.6 0 - 1.5 mg/dL [facility] AST 14 0 - 37 U/L [facility] ALT 12 0 - 40 U/L [facility] TOTAL PROTEIN 7.4 6.5 - 8.0 g/dL [facility] ALBUMIN 4.2 3.9 - 4.8 g/dL [facility] GLOBULIN 3.2 1 - 4.8 g/dL [facility] A/G Ratio 1.31 1.00 - 4.80 RATIO [facility] Blood 04/02/2025 2:39 PM EDT 04/02/2025 2:44 PM EDT Kenneth Shane MD LAB BLOOD ORDERABLES Olga l Result Performing Organization Address [facility]/ZIP Co de Phone Number [address] [address] * (ABNORMAL) CBC and differential (04/02/2025 2:39 PM EDT) WBC 8.77 4.00 - 11.00 K/uL [facility] RBC 5.08 4.50 - 5.90 M/uL [facility] HGB 13.2(L) 13.5 - 17.5 g/dL [facility] HCT 41.2 41.0 - 53.0 % [facility] PLT 290 150 - 450 K/uL [facility] MCV 81.1 80.0 - 100.0 fL [facility] MCH 26.0(L) 27.0 - 31.0 pg [facility] MCHC 32.0 32.0 - 36.0 g/dL [facility] RDW 14.1 11.5 - 14.5 % [facility] MPV 9.8 8.4 - 12.0 fL [facility] NRBC 0.00 0.00 /100 WBCs [facility] ABSOLUTE NRBC 0.00 0.00 K/uL [facility] DIFF METHOD Auto [facility] NEUTS 65.9 48.0 - 76.0 % [facility] LYMPHS 25.3 18.0 - 41.0 % [facility] MONOS 7.1 4.0 - 11.0 % [facility] EOS 0.9 0.0 - 5.0 % [facility] BASOS 0.6 0.0 - 1.5 % [facility] Granulocytes, immature (%) 0.2 0.0 - 0.9 % [facility] ABSOLUTE NEUTS 5.78 1.92 - 7.60 K/uL [facility] ABSOLUTE LYMPHS 2.22 0.72 - 4.10 K/uL [facility] ABSOLUTE MONOS 0.62 0.16 - 1.10 K/uL [facility] ABSOLUTE EOS 0.08 0.00 - 0.50 K/uL [facility] ABSOLUTE BASOS 0.05 0.00 - 0.15 K/uL [facility] Granulocytes, immature 0.02 0.00 - 0.09 K/uL [facility] Blood 04/02/2025 2:39 PM EDT 04/02/2025 2:44 PM EDT us Kenneth Shane MD LAB BLOOD ORDERABLES Olga l Result [facility] [address] [place] [address] * (ABNORMAL) Phosphorus (04/02/2025 2:39 PM EDT) PHOSPHORUS 1.3(LL) 2.7 - 4.5 mg/dL [facility] Comment: Critical value: Results called to and read back by: SULMA D ED [id number] 04/02/25 BY [id number] Blood 04/02/2025 2:39 PM EDT 04/02/2025 2:44 PM EDT Result Pauline Shane MD LAB BLOOD ORDERABLES Olga l Result Performing Organization Address [facility] Co de Phone Number [address] [address] * Magnesium (04/02/2025 2:39 PM EDT) MAGNESIUM 2.1 1.6 - 2.6 mg/dL [facility] Blood 04/02/2025 2:39 PM EDT 04/02/2025 2:44 PM EDT Result Pauline Shane MD LAB BLOOD ORDERABLES Olga l Result Performing Organization Address [facility] Co de Phone Number [address] [address] * (ABNORMAL) Lipase (04/02/2025 2:39 PM EDT) LIPASE 8(L) 16 - 63 U/L [facility] Blood 04/02/2025 2:39 PM EDT 04/02/2025 2:44 PM EDT Result Pauline Shane MD LAB BLOOD ORDERABLES Olga l Result Performing Organization Address [facility] Co de Phone Number [address] [address] * (ABNORMAL) Acetaminophen level (04/02/2025 2:39 PM EDT) ACETAMINOPHEN <5.0(L) 15.0 - 30.0 ug/mL [facility] Blood 04/02/2025 2:39 PM EDT 04/02/2025 2:44 PM EDT us Kenneth Shane MD LAB BLOOD ORDERABLES Olga l Result [address] [address] * (ABNORMAL) Basic metabolic panel (04/02/2025 2:39 PM EDT) SODIUM 137 133 - 146 mmol/L [facility] CHLORIDE 101 96 - 108 mmol/L [facility] POTASSIUM 4.0 3.3 - 5.1 mmol/L [facility] CO2 23 21 - 35 mmol/L [facility] BUN 18 6 - 19 mg/dL [facility] CREATININE 0.80 0.5 - 1.5 mg/dL [facility] GLUCOSE 112(H) 70 - 99 mg/dL [facility] CALCIUM 9.6 8.4 - 10.3 mg/dL [facility] EGFR >120 >59 mL/min/1.7 3m2 [facility] Comment:Estimated glomerular filtration rate calculated using the CKD-EPI refit equation. ANION GAP 17 10 - 20 mmol/L [facility] Blood 04/02/2025 2:39 PM EDT 04/02/2025 2:44 PM EDT Kenneth Shane MD LAB BLOOD ORDERABLES Olga l Result Performing Organization Address City/[facility]/ZIP Co de Phone Number [address] [address] from Last 3 Months Insurance [employer] [place] Care Teams Ob Gyn Relationship Specialty Start Date End Date Sahil Chen CNP [address] [place] [address] PCP - General Nurse Practitioner 04/02/25 Additional Source Comments The information contained in this document represents components of the legal health record. It is not the complete legal health record.Formerly [facility]
--- OUTSIDE RECORDS SUMMARY | 2025-05-13 00:36 | XMS_ITS | Clinical Summary ---
Author Organization [address] [facility] Address [address] [place] [address] Phone Care Team Providers Care Gas System Operator Name Role Phone Sahil Chen NP Primary Care Provider [phone] Allergies Active Allergy Reactions Criticality Noted Date Comments Diphenhydramine Hcl 03/19/2025 Haloperidol Shortness of breath,Unknown High 10/18/2022 Jaw locks up and has tremors Other Reaction(s): Difficulty Swallowing, dystonic reaction Medications No known medications Encounters Date Type Department Care Team Description 03/19/2025 3:00 PM EDT Consult Orthopedic Surgery - [place] [address] [facility] [address] [place] [address] Devan Alonso, FRANK Ingrowing nail (Primary Dx); Local infection of the skin and subcutaneous tissue, unspecified; Type 1 diabetes mellitus without complications (CMS/[facility] V24, CMS/[facility] V28) from Last 3 Months Social History [...] PM EST Office Visit [facility] [place] [address] [address] Devan Alonso, DPM [address] [address] Health Maintenance Due Date Last [...] - Td or Tdap) 11/07/2033 11/08/2023, 02/23/2015 RSV Immunization Adult Patients (1 - 1-dose 75+ series) 02/07/2071 Hepatitis C Screening Completed 11/15/2023 HIB Vaccines [...] topic Insurance MEDICAID - [place] Care Teams Gas System Operator Relationship Specialty Start Date End Date Sahil Chen NP [address] [place] [id number] PCP - General Family Medicine 01/01/25
--- NOTE | 2025-05-13 01:57 | ED_ITS ---
HPI - General Adult General Chief complaint: Back Pain/Injury Stated complaint: back pain Time Seen by Provider: 05/13/25 00:18 Source: patient, RN notes reviewed and old records reviewed Mode of arrival: EMS Limitations: no limitations History of Present Illness ED Provider: Demetria HPI narrative: 30-year-old male with a history of type 1 diabetes, GERD, chronic back pain, gastroparesis presents for evaluation of back pain. He reports mid back pain as well as lower back pain pain He complains of some numbness in his legs He was seen here last night for the same and had a thoracic x-ray that showed straightening of the image cervical lordosis but no acute changes to his thoracic spine from a comparison of 1 year prior pain Of note, the patient also had a lumbar MRI performed on 04/18/2025. 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 No evidence of cord compression The patient denies any recent trauma, falls, no fevers or chills Denies any bladder or bowel incontinence No other complaints or concerns at this time He was prescribed gabapentin yesterday but did not take it because ?that has made me sterile in the past. ? Related Data Home Medications ?Medication ?Instructions ?Recorded ?Confirmed pantoprazole 40 mg tablet,delayed 40 mg PO DAILY@0630 12/19/22 01/31/25 release (Protonix) promethazine 25 mg tablet 25 mg PO TID PRN nausea/vomi ting 01/23/23 01/31/25 acetaminophen 500 mg tablet 500 mg PO Q6H PRN 04/09/24 01/31/25 Previous Rx's ?Medication ?Instructions ?Recorded albuterol sulfate 90 mcg/actuation 2 puff inhalation Q ID PRN 04/13/24 aerosol inhaler shortness of breath or wheez ing #6.7 grams cyclobenzaprine 10 mg tablet 10 mg PO TID #10 tabs acetone (urine) test (Ketone Urine #25 ea 06/19/24 Test strips) blood-glucose,day guard,cont #1 ea 06/19/24 (Dexcom G7 Crusher Screen Repairer) glucagon 3 mg/actuation nasal 3 mg intranasal ONCE PRN 06/19/24 spray (Baqsimi) unresponsive hypoglycemia 30 days #2 ea ondansetron 4 mg disintegrating 4 mg PO Q8H PRN nausea and 10/11/24 tablet vomiting #20 tabs blood-glucose sensor (Dexcom G7 #6 ea 01/17/25 Sensor device) insulin aspart U-100 100 unit/mL 1 sliding scale dose subcut 01/17/25 (3 mL) subcutaneous pen (Novolog TIDWMEAL 30 days #15 mL FlexPen U-100 Insulin aspart) insulin degludec 200 unit/mL (3 18 unit (0.09 mL) subc ut DAILY 30 01/17/25 mL) subcutaneous pen (Tresi days #6 mL FlexTouch U-200 insulin) pen needle, diabetic 32 gauge x #150 ea 01/17/25 blood sugar diagnostic (FreeStyle #100 ea 01/27/25 Lite Strips) blood-glucose meter (FreeStyle #1 ea 01/27/25 Lite Meter kit) lancets 28 gauge (FreeStyle #100 ea 01/27/25 Lancets) ketorolac 10 mg tablet 10 mg PO Q6H PRN pain 5 days #20 01/31/25 tabs levofloxacin 500 mg tablet 500 mg PO DAILY 10 days #10 tabs 01/31/25 morphine 15 mg immediate release 15 mg PO Q6H PRN pain #14 tabs 01/31/25 tablet ondansetron 4 mg disintegrating 4 mg PO Q6-8H PRN naus ea and 01/31/25 tablet vomiting #14 tabs cyclobenzaprine 10 mg tablet 10 mg PO TID PRN muscle s pasm #12 03/16/25 tabs levofloxacin 500 mg tablet 500 mg PO DAILY 10 days #10 tabs 03/16/25 lidocaine 5 % topical patch 1 patch topical DAILY #15 ea 03/16/25 (Lidoderm) naproxen 500 mg tablet 500 mg PO BID PRN pain #30 t abs 03/16/25 gabapentin 300 mg capsule 300 mg PO TID #14 caps 05/12 dexamethasone 4 mg tablet 4 mg PO BID #5 tabs 05/13/25 morphine 15 mg immediate release 15 mg PO Q8H PRN pain #9 tabs 05/13/25 tablet Allergies Allergy/AdvReac Type Severity Reaction Status Date / Time diphenhydramine (From Allergy Anaphylaxis Verified 05/12/25 22:26 Benadryl) haloperidol (From Haldol) Allergy Difficulty Verified 05/12/25 22:26 Swallowing lorazepam (From Ativan) AdvReac Difficulty Verified 05/12/25 22:26 Breathing metoclopramide (From Reglan) AdvReac Anxiety Verified 05/12/25 22:26 Review of Systems Constitutional: Constitutional: Denies body ache(s), Denies chills, Denies fever(s) and Denies headache(s) Eyes: Eyes: Denies blurry vision ENT: Denies dizziness and Denies headache(s) Cardiovascular: Cardiovascular: Denies chest pain and Denies dyspnea on exertion Respiratory: Respiratory: Denies cough and Denies dyspnea on exertion Gastrointestinal: Gastrointestinal: Denies abdominal pain, Denies nausea and Denies vomiting Musculoskeletal: Musculoskeletal: Reports back pain, Reports numbness, Reports stiffness and Reports tingling Integumentary/Breasts: Skin/Breast: Denies rash Neurologic: Denies dizziness, Denies headache(s), Reports numbness and Reports tingling Psychiatric: Psychiatric: Denies anxiety PMFSH Past Medical History Medical History Abdominal pain Dental infection Colitis DKA (diabetic ketoacidosis) Hyperglycemia 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 type 1 Surgical History History of esophagogastroduodenoscopy (EGD) Family History Family History Paternal Grandmother Breast cancer Family/Other Brain cancer Social History Social History Household Members: Other Household Members Other:: cousin Housing: House Do you presently have visiting nurse or other home services: No Alcohol intake: current Alcohol intake frequency: holidays/special occasions only Patient Tobacco Use Status: Current everyday Tobacco user Tobacco use type: Cigarette Cigarette Packs Per Day: 0 Cigarettes Per Day: 0 Years Smoked: 10 Smoked in Last 30 Days: No e-Cigarette/Vaping Use: Never Used Second Hand Smoke Exposure: No Use of substances other than those prescribed or required for medical reasons: No Substance Use Type: Marijuana Advance Directives: No Advance Directives Information Provided: Yes Do you have a plan to hurt others: No Plan service: No Current occupational status: employed 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 Physical Exam ED Vital Signs: Vital Signs - 24 hr 05/12/25 22:25 05/13/25 00:33 Temperature 98.6 F 97.9 F Pulse Rate 109 H 100 Respiratory Rate 18 16 Blood Pressure 103/74 112/61 Pulse Oximetry 100 99 Oxygen Delivery Method Room Air Room Air BMI result Body Mass Index 19.0 Const General: healthy appearing, comfortable, no acute distress, alert and awake Nutritional Appearance: well nourished Orientation/consciousness: patient oriented x3 HENMT Head: Yes normocephalic and Yes atraumatic Eyes Eyelids: Yes eyelids normal Conjunctivae: conjunctivae normal Sclerae: sclerae normal Corneas: corneas normal Pupils: Equal, round and reactive pupils present EOM: EOMs intact bilaterally Neck Neck: Yes full ROM Resp Effort & Inspection: normal respiratory effort, able to speak in complete sentences and not labored Back/Spine/Pelvis Other: The patient has tenderness across the thoracic and lumbar spine and paraspinous region. No step-offs or deformities to the vertebrae. Straight leg raise negative. Skin General skin exam: elasticity normal Neuro General: patient oriented x3 Cranial nerves: Yes Equal, round and reactive pupils present and Yes Bilaterally intact EOM present Cognition (Neuro): normal cognition Gait exam (Neuro): Normal gait present Motor exam (neuro): 5/5 motor strength present throughout, no tremor noted, no asterixis and Motor fasciculations not present Extrem Other: Moving all extremities well without any obvious deformities Medications Administered Discontinued Medications Generic Name Dose Route Start Last Admin Trade Name Wilfredo PRN Reason Stop Dose Admin Dexamethasone 4 mg 05/13/25 01:04 05/13/25 01:42 Dexamethasone 4 Mg Tablet PO 05/13/25 01:05 4 mg ONCE ONE Administration Morphine Sulfate 4 mg 05/13/25 01:04 05/13/25 01:41 Morphine Sulfate 4 Mg/Ml Cartridge IM 05/13/25 01:05 4 mg ONCE ONE Administration Protocol Medical Decision Making Medical Decision Making MDM Narrative: 30-year-old male presents for evaluation of back pain. He was seen here yesterday for the same. His vital signs are within normal limits. I reviewed his recent MRI from just over 3 weeks ago as well as a chest x-ray and a thoracic spine x-ray from yesterday. The patient has a reassuring exam without neuro deficits. He has no recent trauma or fever. I do not see any indication for additional emergent imaging at this time. We will treat his back pain with dexamethasone and a dose of morphine 4 mg IM. Differential Diagnosis Differential Diagnoses: The differential diagnosis associated with the presentation includes Chronic back pain Spondylolysis Radiculopathy Sciatica Discharge Plan Discharge Clinical Impression: Acute on chronic back pain Patient Disposition: Home, Self-Care Instructions: Acute Low Back Pain (ED) Additional Instructions: I recommend that you follow up with pain management at the number provided. You may continue your cyclobenzaprine. Take dexamethasone twice daily for the next 3 days to help reduce inflammation which should help treat your back pain You may use morphine up to 3 times daily as needed for severe breakthrough pain that is not relieved with ibuprofen and Tylenol You should not mix the cyclobenzaprine with morphine the same time as they can both make you drowsy. Do not drink alcohol or drive after taking it Prescriptions: New morphine 15 mg tablet 15 mg PO Q8H PRN (Reason: pain) Qty: 9 0RF Rx Instructions: Partial Fill upon patient request. dexamethasone 4 mg tablet 4 mg PO BID Qty: 5 0RF No Action (DME) Dexcom G7 Crusher Screen Repairer Misc See Rx Instructions .ROUTE .MEDSUPPLY Qty: 1 1RF Rx Instructions: As directed (DME) Ketone Urine Test Strip See Rx Instructions .ROUTE .MEDSUPPLY Qty: 25 3RF Rx Instructions: As directed prn glucose over 250, nausea/vomiting tid Baqsimi 3 mg/actuation spray,non-aerosol 3 mg intranasal ONCE MDD 6mg may repeat in 15 minutes PRN (Reason: unrespo nsive hypoglycemia) 30 Days Qty: 2 1RF (DME) FreeStyle Lite Strips Strip See Rx Instructions .Route Qty: 100 3RF Rx Instructions: As directed tests 3 X/day (DME) blood-glucose meter [FreeStyle Lite Meter] Kit See Rx Instructions .Route Qty: 1 0RF Rx Instructions: As directed (DME) lancets [FreeStyle Lancets] 28 gauge misc See Rx Instructions .Route Qty: 100 0RF Rx Instructions: As directed tests 3 X/day pantoprazole [Protonix] 40 mg tablet,delayed release (DR/EC) 40 mg PO DAILY@0630 promethazine 25 mg tablet 25 mg PO TID PRN (Reason: nausea/vomiting) ondansetron 4 mg tablet,disintegrating 4 mg PO Q8H PRN (Reason: nausea and vomiting) Qty: 20 0RF levofloxacin 500 mg tablet 500 mg PO DAILY 10 Days Qty: 10 0RF morphine 15 mg tablet 15 mg PO Q6H PRN (Reason: pain) Qty: 14 0RF Rx Instructions: Partial Fill upon patient request. ketorolac 10 mg tablet 10 mg PO Q6H PRN (Reason: pain) 5 Days Qty: 20 0RF ondansetron 4 mg tablet,disintegrating 4 mg PO Q6-8H PRN (Reason: nausea and vomiting) Qty: 14 0RF gabapentin 300 mg capsule 300 mg PO TID Qty: 14 0RF albuterol sulfate 90 mcg/actuation HFA aerosol inhaler 2 puff inhalation QID PRN (Reason: shortness of breath or wheezing) Qty: 6.7 0RF cyclobenzaprine 10 mg tablet 10 mg PO TID Qty: 10 0RF naproxen 500 mg tablet 500 mg PO BID PRN (Reason: pain) Qty: 30 0RF cyclobenzaprine 10 mg tablet 10 mg PO TID PRN (Reason: muscle spasm) Qty: 12 0RF lidocaine [Lidoderm] 5 % adhesive patch,medicated 1 patch topical DAILY Qty: 15 0RF Rx Instructions: leave on most painful area for up to 12 hrs levofloxacin 500 mg tablet 500 mg PO DAILY 10 Days Qty: 10 0RF acetaminophen 500 mg tablet 500 mg PO Q6H PRN insulin aspart U-100 [Novolog FlexPen U-100 Insulin] 100 unit/mL (3 mL) insulin pen 1 sliding scale dose subcut TIDWMEAL MDD 44 units 30 Days Qty: 15 11RF Rx Instructions: 1 unit for every 35 points over 135 1 unit for every 15 carbohydrates insulin degludec [Tresiba FlexTouch U-200] 200 unit/mL (3 mL) insulin pen 18 unit subcut DAILY 30 Days Qty: 6 11RF (DME) Nanigans G7 Sensor Device See Rx Instructions .ROUTE .MEDSUPPLY Qty: 6 6RF Rx Instructions: As directed every 10 days (DME) pen needle, diabetic 32 gauge x 5/32 needle See Rx Instructions .ROUTE .[facility] Qty: 150 6RF Rx Instructions: As directed qid Referrals: [facility] [Provider Group, Pain Management] Referral Note: chronic back pain Print Language: Stateless
[2025-05-13 02:39] VITALS: BP 112/61; PULSE 100; RESP 16; TEMP 36.6; O2SAT 99
== END 2025-05-13 02:45 | disposition home or self-care (01) ==
PROVIDERS: Emergency Provider Emergency Medicine
DX: M54.50 Low back pain, unspecified (principal); E10.9 Type 1 diabetes mellitus without complications; Z79.4 Long term (current) use of insulin; Z79.899 Other long term (current) drug therapy; F17.210 Nicotine dependence, cigarettes, uncomplicated
CPT/HCPCS: 96372; 99284; J2270; J8540

== ENCOUNTER 2025-05-28 13:00 | Emergency (ER) | payer MEDICAID, SELFPAY ==
[2025-05-28 14:08] VITALS: BP 123/87; PULSE 99; RESP 20; TEMP 37; O2SAT 100; BMI 17.8
--- NOTE | 2025-05-28 14:09 | ED_ITS ---
HPI - General Adult General Chief complaint: Chest Pain Stated complaint: back pain Related Data Home Medications ?Medication ?Instructions ?Recorded ?Confirmed pantoprazole 40 mg tablet,delayed 40 mg PO DAILY@0630 12/19/22 01/31/25 release (Protonix) promethazine 25 mg tablet 25 mg PO TID PRN nausea/vomi ting 01/23/23 01/31/25 acetaminophen 500 mg tablet 500 mg PO Q6H PRN 04/09/24 01/31/25 Previous Rx's ?Medication ?Instructions ?Recorded albuterol sulfate 90 mcg/actuation 2 puff inhalation Q ID PRN 04/13/24 aerosol inhaler shortness of breath or wheez ing #6.7 grams cyclobenzaprine 10 mg tablet 10 mg PO TID #10 tabs acetone (urine) test (Ketone Urine #25 ea 06/19/24 Test strips) blood-glucose,children's zoo caretaker,cont #1 ea 06/19/24 (Dexcom G7 Apprenticeship Representative) glucagon 3 mg/actuation nasal 3 mg intranasal ONCE PRN 06/19/24 spray (Baqsimi) unresponsive hypoglycemia 30 days #2 ea ondansetron 4 mg disintegrating 4 mg PO Q8H PRN nausea and 10/11/24 tablet vomiting #20 tabs blood-glucose sensor (Dexcom G7 #6 ea 01/17/25 Sensor device) insulin aspart U-100 100 unit/mL 1 sliding scale dose subcut 01/17/25 (3 mL) subcutaneous pen (Novolog TIDWMEAL 30 days #15 mL FlexPen U-100 Insulin aspart) insulin degludec 200 unit/mL (3 18 unit (0.09 mL) subc ut DAILY 30 01/17/25 mL) subcutaneous pen (Tresi days #6 mL FlexTouch U-200 insulin) pen needle, diabetic 32 gauge x #150 ea 01/17/25 blood sugar diagnostic (FreeStyle #100 ea 01/27/25 Lite Strips) blood-glucose meter (FreeStyle #1 ea 01/27/25 Lite Meter kit) lancets 28 gauge (FreeStyle #100 ea 01/27/25 Lancets) ketorolac 10 mg tablet 10 mg PO Q6H PRN pain 5 days #20 01/31/25 tabs levofloxacin 500 mg tablet 500 mg PO DAILY 10 days #10 tabs 01/31/25 morphine 15 mg immediate release 15 mg PO Q6H PRN pain #14 tabs 01/31/25 tablet ondansetron 4 mg disintegrating 4 mg PO Q6-8H PRN naus ea and 01/31/25 tablet vomiting #14 tabs cyclobenzaprine 10 mg tablet 10 mg PO TID PRN muscle s pasm #12 03/16/25 tabs levofloxacin 500 mg tablet 500 mg PO DAILY 10 days #10 tabs 03/16/25 lidocaine 5 % topical patch 1 patch topical DAILY #15 ea 03/16/25 (Lidoderm) naproxen 500 mg tablet 500 mg PO BID PRN pain #30 t abs 03/16/25 gabapentin 300 mg capsule 300 mg PO TID #14 caps 05/12 dexamethasone 4 mg tablet 4 mg PO BID #5 tabs 05/13/25 morphine 15 mg immediate release 15 mg PO Q8H PRN pain #9 tabs 05/13/25 tablet Allergies Allergy/AdvReac Type Severity Reaction Status Date / Time diphenhydramine (From Allergy Anaphylaxis Verified 05/28/25 14:12 Benadryl) haloperidol (From Haldol) Allergy Difficulty Verified 05/28/25 14:12 Swallowing lorazepam (From Ativan) AdvReac Difficulty Verified 05/28/25 14:12 Breathing metoclopramide (From Reglan) AdvReac Anxiety Verified 05/28/25 14:12 [facility] Past Medical History Medical History Abdominal pain Dental infection Colitis DKA (diabetic ketoacidosis) Hyperglycemia 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 type 1 Surgical History History of esophagogastroduodenoscopy (EGD) Family History Family History Paternal Grandmother Breast cancer Family/Other Brain cancer Social History Social History Household Members: Other Household Members Other:: cousin Housing: House Do you presently have visiting nurse or other home services: No Alcohol intake: current Alcohol intake frequency: holidays/special occasions only Patient Tobacco Use Status: Current everyday Tobacco user Tobacco use type: Cigarette Cigarette Packs Per Day: 0 Cigarettes Per Day: 0 Years Smoked: 10 e-Cigarette/Vaping Use: Never Used Second Hand Smoke Exposure: No Substance Use Type: Marijuana service: No Current occupational status: employed 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 Patient is a 30y/o M pmhx T1DM, gastroparesis, GERD, anemia presenting to the ED with complaint on ongoing pain to neck, upper back, and left upper chest for weeks. States he was seen here on 05/11 and 05/13 for same. Plan: EKG, lab Patient left the emergency department before myself or any of the other clinicians could review or explain physical exam findings, test results, need or lack there of for additional testing, treatment options, or a treatment plan. Discharge Plan Discharge Clinical Impression: Neck pain Patient Disposition: Left W/O Completing Treatment Prescriptions: No Action (DME) Dexcom G7 Apprenticeship Representative Misc See Rx Instructions .ROUTE .MEDSUPPLY Qty: 1 1RF Rx Instructions: As directed (DME) Ketone Urine Test Strip See Rx Instructions .ROUTE .MEDSUPPLY Qty: 25 3RF Rx Instructions: As directed prn glucose over 250, nausea/vomiting tid Baqsimi 3 mg/actuation spray,non-aerosol 3 mg intranasal ONCE MDD 6mg may repeat in 15 minutes PRN (Reason: unrespo nsive hypoglycemia) 30 Days Qty: 2 1RF (DME) FreeStyle Lite Strips Strip See Rx Instructions .Route Qty: 100 3RF Rx Instructions: As directed tests 3 X/day (DME) blood-glucose meter [FreeStyle Lite Meter] Kit See Rx Instructions .Route Qty: 1 0RF Rx Instructions: As directed (DME) lancets [FreeStyle Lancets] 28 gauge misc See Rx Instructions .Route Qty: 100 0RF Rx Instructions: As directed tests 3 X/day pantoprazole [Protonix] 40 mg tablet,delayed release (DR/EC) 40 mg PO DAILY@0630 promethazine 25 mg tablet 25 mg PO TID PRN (Reason: nausea/vomiting) ondansetron 4 mg tablet,disintegrating 4 mg PO Q8H PRN (Reason: nausea and vomiting) Qty: 20 0RF levofloxacin 500 mg tablet 500 mg PO DAILY 10 Days Qty: 10 0RF morphine 15 mg tablet 15 mg PO Q6H PRN (Reason: pain) Qty: 14 0RF Rx Instructions: Partial Fill upon patient request. ketorolac 10 mg tablet 10 mg PO Q6H PRN (Reason: pain) 5 Days Qty: 20 0RF ondansetron 4 mg tablet,disintegrating 4 mg PO Q6-8H PRN (Reason: nausea and vomiting) Qty: 14 0RF gabapentin 300 mg capsule 300 mg PO TID Qty: 14 0RF albuterol sulfate 90 mcg/actuation HFA aerosol inhaler 2 puff inhalation QID PRN (Reason: shortness of breath or wheezing) Qty: 6.7 0RF cyclobenzaprine 10 mg tablet 10 mg PO TID Qty: 10 0RF naproxen 500 mg tablet 500 mg PO BID PRN (Reason: pain) Qty: 30 0RF cyclobenzaprine 10 mg tablet 10 mg PO TID PRN (Reason: muscle spasm) Qty: 12 0RF lidocaine [Lidoderm] 5 % adhesive patch,medicated 1 patch topical DAILY Qty: 15 0RF Rx Instructions: leave on most painful area for up to 12 hrs levofloxacin 500 mg tablet 500 mg PO DAILY 10 Days Qty: 10 0RF morphine 15 mg tablet 15 mg PO Q8H PRN (Reason: pain) Qty: 9 0RF Rx Instructions: Partial Fill upon patient request. dexamethasone 4 mg tablet 4 mg PO BID Qty: 5 0RF acetaminophen 500 mg tablet 500 mg PO Q6H PRN insulin aspart U-100 [Novolog FlexPen U-100 Insulin] 100 unit/mL (3 mL) insulin pen 1 sliding scale dose subcut TIDWMEAL MDD 44 units 30 Days Qty: 15 11RF Rx Instructions: 1 unit for every 35 points over 135 1 unit for every 15 carbohydrates insulin degludec [Tresiba FlexTouch U-200] 200 unit/mL (3 mL) insulin pen 18 unit subcut DAILY 30 Days Qty: 6 11RF (DME) Taggstr G7 Sensor Device See Rx Instructions .ROUTE .MEDSUPPLY Qty: 6 6RF Rx Instructions: As directed every 10 days (DME) pen needle, diabetic 32 gauge x 5/32 needle See Rx Instructions .ROUTE .MEDSUPPLY Qty: 150 6RF Rx Instructions: As directed qid Discharge Date/Time: 05/28/25 16:08
--- NOTE | 2025-05-28 16:07 | PC.NURSE ---
Pt called for bloodwork x 3 times, pt LWCT
== END 2025-05-28 16:08 | disposition left against medical advice (07) ==
PROVIDERS: Emergency Provider Emergency Medicine
DX: M54.2 Cervicalgia (principal); M54.6 Pain in thoracic spine; R07.89 Other chest pain; E10.9 Type 1 diabetes mellitus without complications
CPT/HCPCS: 99281

== ENCOUNTER 2025-06-05 09:56 | Outpatient (AMB) | payer MEDICAID, SELFPAY ==
--- NOTE | 2025-06-05 10:01 | MHC.OFFVIS ---
Vital Signs 06/05/25 10:06 Height 6 ft Weight 140 lb 2 oz BMI 19.0 BP 138/90 H Blood Pressure Location Lt brachial Position Sitting Pulse 104 H Pulse Source Pulse Oximeter Pulse Oximetry (%) 100 Oxygen Delivery Method Room Air Intake Visit Reasons: Chronic back pain Intake Note: Pain today 02/27 Domestic Violence Advocate Required: No Accompanied by: Self / Same As Patient Allergies diphenhydramine (From Benadryl) Allergy (Verified 06/05/25 10:07) Anaphylaxis haloperidol (From Haldol) Allergy (Verified 06/05/25 10:07) Difficulty Swallowing lorazepam (From Ativan) Adverse Reaction (Verified 06/05/25 10:07) Difficulty Breathing metoclopramide (From Reglan) Adverse Reaction (Verified 06/05/25 10:07) Anxiety HPI Comments Details: The patient is a 30-year-old male presenting with chronic low back pain. The pain began approximately two years ago following a wrist fracture sustained during fall while playing basketball. The patient describes the pain as aching and spreading from the lower back to the neck, exacerbated by movement and physical activity. The patient reports that the pain interferes with daily activities, causing significant discomfort and fatigue. He has attempted various interventions, including hot showers, stretching, and medications such as naproxen, lidocaine patches, gabapentin, and cyclobenzaprine, with limited relief. The patient experiences adverse effects from medications, including sedation. The patient also reports prior episodes of bowel incontinence while he was asleep, but denies any bladder incontinence. An MRI of the lower back was neg cuada equida syndrome or nerve impingement but revealed spondylosis without listhesis. The patient has not yet engaged in physical therapy despite a prior referral from pcp office. The patient has an elevated hemoglobin A1c of 8.3, which contraindicates the use of steroid injections due to potential exacerbation of hyperglycemia. - Onset: Approximately two years ago after a wrist fracture - Quality: Aching pain - Location: Lower back, radiating to the neck - Exacerbating factors: Movement and physical activity - Relieving factors: Temporary relief with hot showers and stretching - Interference: Affects daily activities and causes fatigue - Affect: Pain impacts daily activities and causes fatigue - Analgesia: Medications include naproxen, lidocaine patches, gabapentin, and cyclobenzaprine with limited relief - Adverse Effects: Sedation and stiffness from medications - Activities of Daily Living: Pain interferes with work and daily tasks - Aberrant Drug Related Behaviors: None reported [facility] Medical History (Updated 06/05/25 @ 11:16 by Aby Moreno APRN, CERTIFIED HEARING INSTRUMENT DISPENSER) Depression Abdominal pain Dental infection Colitis DKA (diabetic ketoacidosis) Hyperglycemia 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 type 1 Surgical History History of esophagogastroduodenoscopy (EGD) Family History Paternal Grandmother Breast cancer Family/Other Brain cancer Social History (Updated 06/05/25 @ 10:26 by Natasha Vicente) Household Members: Other Household Members Other:: cousin Housing: House Do you presently have visiting nurse or other home services: No Alcohol intake: current Alcohol intake frequency: holidays/special occasions only Patient Tobacco Use Status: Former Tobacco user Tobacco use type: Cigarette Cigarette Packs Per Day: 0 Cigarettes Per Day: 0 Years Smoked: 10 e-Cigarette/Vaping Use: Currently Using Second Hand Smoke Exposure: No Substance Use Type: Marijuana Substance Use Frequency: Daily service: No Current occupational status: employed 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 Answers questions appropriately. Fully engaged in examination. Skin: warm, dry, intact HEENT: Normocephalic. Hearing intact. Cardiac: External chest normal in appearance. Respiratory: No cough, audible wheezing or stridor. Abdomen: without gross distension. MS: No obvious swelling or deformities. Able to stand on bilateral tiptoes and bilateral heels.? Able to transition from sit to stand unassisted. Ambulates with bilaterally normal heel strike and toe off Tenderness over midline lumbar vertebrae Full lumbar ROM SLR neg bilaterally Nontender over bilateral PSIS Neurological: Oriented to person, place, time and situation. Thought process intact. No gait abnormalities appreciated. Psychiatric: Appropriate mood and affect. Good judgment and insight. Vital Signs: Last Vital Signs Pulse 104 H 06/05/25 10:06 BP 138/90 H 06/05/25 10:06 Pulse Ox 100 06/05/25 10:06 Oxygen Delivery Method Room Air 06/05/25 10:06 BMI result Body Mass Index 19.0 Results Reviewed Results Reviewed: 04/2025 Thoracic Xray Findings: Lateral imaging includes a swimmer's view imaged. No significant change of the imaged vertebral heights or alignments. Cervicothoracic junction is obscured. Straightening of the imaged cervical lordosis in the [id number]. No consolidation of the imaged lungs. IMPRESSION: 1. Negative x-rays of the thoracic spine, without significant change compared to 1 year prior 2. Straightening of the imaged cervical lordosis. 04/18/25 MR/MR lumbar spine wo con FINDINGS: Last rib-bearing vertebra labeled T12. No gross bone marrow STIR signal abnormality. Sagittal bone marrow STIR signal in the left pars interarticularis of L5. No malalignment. Conus medullaris ends at inferior endplate of L1 with normal signal. T12-L1: No disc herniation. No neuroforamina stenosis. L1-2: No disc herniation. No neuroforamina stenosis. L2-3: No disc herniation. No neuroforamina stenosis. L3-4: Broad-based disc bulging. No central spinal canal stenosis. Facet joint hypertrophy. Mild bilateral neuroforamina narrowing. No compression upon neural elements. L4-5: Broad-based disc bulging. No central spinal canal stenosis. Mild left neuroforamina narrowing. L5-S1: Broad-based disc bulging. Left-sided spondylolysis pars interarticularis. Mild neuroforamina narrowing secondary to facet joint hypertrophy. No prevertebral compartment hematoma, mass or fluid collections. Abundant food contents in a prominent stomach. 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 Mild multilevel spondylosis L2-3 to L5-S1 resulting in mild left neuroforamina narrowing. Assessment & Plan Assessment & Plan (1) Lumbar spondylosis: Code(s): M47.816 - Spondylosis without myelopathy or radiculopathy, lumbar region Category: Medical Plan The management plan for the patient's chronic low back pain involves starting physical therapy to reduce muscle tightness and enhance core strength, potentially alleviating pain. Should physical therapy prove insufficient, diagnostic injections will be considered to pinpoint pain sources without using steroids, given the patient's elevated hemoglobin A1c. Additional treatments, such as temporary nerve stimulation or nerve ablation, may be pursued based on the patient's response to initial therapies. A follow-up appointment is recommended after physical therapy to evaluate progress and modify the treatment plan as needed. Continue with heat, ice, NSAIDs, OTC medications and muscle relaxers. Patient was informed and verbally consented to the use of an ambient scribe for clinic note documentation during this visit. Orders: Orders PT Evaluation and Treatment Today M47.816 - Spondylosis without myelopathy or radiculopathy, lumbar region Patient Instructions: - Begin physical therapy as soon as possible to help with back pain. - Follow up with the clinic after completing physical therapy to evaluate progress. - Monitor blood sugar levels closely and avoid steroid medications. - Contact the physical therapy clinic if not contacted within a week to schedule an appointment. Coding Level of Care Code New Pt Level 4 (90191) Complex EM visit Add On G2211 Diagnoses Lumbar spondylosis M47.816
[2025-06-05 10:06] VITALS: BP 138/90; PULSE 104; O2SAT 100; BMI 19.0
--- OUTSIDE RECORDS SUMMARY | 2025-06-05 11:42 | XMS_ITS | Clinical Summary ---
Author Organization [address] [facility] Address [address] [place] [address] Phone Care Team Providers Care Aviation Safety Technician Name Role Phone Sahil Chen NP Primary Care Provider [phone] Allergies Active Allergy Reactions Criticality Noted Date Comments Diphenhydramine Hcl 03/19/2025 Haloperidol Shortness of breath,Unknown High 10/18/2022 Jaw locks up and has tremors Other Reaction(s): Difficulty Swallowing, dystonic reaction Medications No known medications Encounters Date Type Department Care Team Description 03/19/2025 3:00 PM EDT Consult Orthopedic Surgery - [place] [address] [facility] [address] [place] [address] Devan Alonso, FRANK Ingrowing nail (Primary Dx); Local infection of the skin and subcutaneous tissue, unspecified; Type 1 diabetes mellitus without complications (CMS/[facility] V24, CMS/[facility] V28) from Last 3 Months Social History [...] PM EST Office Visit Orthopedic Surgery - [place] [address] [address] Devan Alonso, DPM [address] [address] Health Maintenance Due Date Last Done Comments Diabetes: Annual Foot Exam 02/07/2006 Diabetes: Annual Retina Eye Exam 02/07/2006 Hepatitis B Vaccines (1 of 3 - 19+ 3-dose series) 02/07/2015 Pneumococcal Vaccine: Pediatrics (0 to 5 Years) and At-Risk Patients (6 to 49 Years) (1 of 2 - PCV) 02/07/2015 HPV Vaccines (1 - 3-dose SCD M series) 02/07/2023 HIV Screening 03/13/2024 Social Influencers of Health [...] topic Insurance MEDICAID - [place] Care Teams Aviation Safety Technician Relationship Specialty Start Date End Date Sahil Chen NP [address] [place] [id number] PCP - General Family Medicine 01/01/25
--- OUTSIDE RECORDS SUMMARY | 2025-06-05 11:43 | XMS_ITS | Clinical Summary ---
Author Organization [facility] Address [address] [place] [address] Phone Care Team Providers Care Ferryboat Ticket Taker Name Role Phone Gustavo Delkalyan ZAMORA Primary Care Provider [phone] [phone] Allergies Active Allergy Reactions Criticality Noted Date Comments Diphenhydramine Hcl 04/02/2025 Haloperidol 04/02/2025 Medications No known medications Encounters Date Type Department Care Team Description 05/12/2025 3:03 PM EDT - 05/12/2025 5:59 PM EDT Emergency [facility] Emergency [address] [place] [address] Discharge Disposition: Left Without Being Seen 04/02/2025 1:57 PM EDT - 04/02/2025 9:38 PM EDT Emergency [facility] Emergency [address] [place] [address] Kenneth Shane MD Discharge Disposition: Left Against [...] VACCINE (#1) 2025 COVID-19 VACCINE ( - 2024-2 6 season) 2025 Adult Td,Tdap Booster 11/07/2033 11/08/2023 [...] Glucose, POCT 54(L) 70 - 100 mg/dL [facility] 04/02/2025 7:41 PM EDT 04/02/2025 7:55 PM EDT us Kenneth Shane MD POINT OF CARE TEST ORDERA BLES Final Result Performing Organization Address City/[facility]/ZIP Co de Phone Number [address] [address] * ECG 12-LEAD (04/02/2025 3:03 PM EDT) Ventricular Rate EKG/MIN 81 BPM [facility] Atrial Rate 81 BPM [facility] DE Interval 142 ms [facility] QRS Duration 102 ms [facility] QT Interval 376 ms [facility] QTC Interval 436 ms [facility] R Wave [place] -75 degrees [facility] T Wave [place] 13 degrees [facility] 04/02/2025 3:03 PM EDT [...] 2:39 PM EDT) ETHANOL <10 <10 mg/dL [facility] Blood 04/02/2025 2:39 PM EDT 04/02/2025 2:44 PM EDT us Kenneth Shane MD LAB BLOOD ORDERABLES Olga l Result Performing Organization Address City/[facility]/ZIP Co de Phone Number [address] [address] * LFTs (hepatic panel) (04/02/2025 2:39 PM EDT) ALKALINE PHOSPHATASE 82 39 - 117 U/L [facility] TOTAL BILIRUBIN 0.8 0.0 - 1.2 mg/dL [facility] DIRECT BILIRUBIN 0.2 0.0 - 0.2 mg/dL [facility] Bilirubin (Indirect) 0.6 0 - 1.5 mg/dL [facility] AST 14 0 - 37 U/L [facility] ALT 12 0 - 40 U/L [facility] TOTAL PROTEIN 7.4 6.5 - 8.0 g/dL [facility] ALBUMIN 4.2 3.9 - 4.8 g/dL [facility] GLOBULIN 3.2 1 - 4.8 g/dL [facility] A/G Ratio 1.31 1.00 - 4.80 RATIO [facility] Blood 04/02/2025 2:39 PM EDT 04/02/2025 2:44 PM EDT Kenneth Shane MD LAB BLOOD ORDERABLES Olga l Result Performing Organization Address [facility]/ZIP Co de Phone Number [address] [address] * (ABNORMAL) CBC and differential (04/02/2025 2:39 PM EDT) WBC 8.77 4.00 - 11.00 K/uL [facility] RBC 5.08 4.50 - 5.90 M/uL [facility] HGB 13.2(L) 13.5 - 17.5 g/dL [facility] HCT 41.2 41.0 - 53.0 % [facility] PLT 290 150 - 450 K/uL [facility] MCV 81.1 80.0 - 100.0 fL [facility] MCH 26.0(L) 27.0 - 31.0 pg [facility] MCHC 32.0 32.0 - 36.0 g/dL [facility] RDW 14.1 11.5 - 14.5 % [facility] MPV 9.8 8.4 - 12.0 fL [facility] NRBC 0.00 0.00 /100 WBCs [facility] ABSOLUTE NRBC 0.00 0.00 K/uL [facility] DIFF METHOD Auto [facility] NEUTS 65.9 48.0 - 76.0 % [facility] LYMPHS 25.3 18.0 - 41.0 % [facility] MONOS 7.1 4.0 - 11.0 % [facility] EOS 0.9 0.0 - 5.0 % [facility] BASOS 0.6 0.0 - 1.5 % [facility] Granulocytes, immature (%) 0.2 0.0 - 0.9 % [facility] ABSOLUTE NEUTS 5.78 1.92 - 7.60 K/uL [facility] ABSOLUTE LYMPHS 2.22 0.72 - 4.10 K/uL [facility] ABSOLUTE MONOS 0.62 0.16 - 1.10 K/uL [facility] ABSOLUTE EOS 0.08 0.00 - 0.50 K/uL [facility] ABSOLUTE BASOS 0.05 0.00 - 0.15 K/uL [facility] Granulocytes, immature 0.02 0.00 - 0.09 K/uL [facility] Blood 04/02/2025 2:39 PM EDT 04/02/2025 2:44 PM EDT us Kenneth Shane MD LAB BLOOD ORDERABLES Olga l Result [facility] [address] [place] [address] * (ABNORMAL) Phosphorus (04/02/2025 2:39 PM EDT) PHOSPHORUS 1.3(LL) 2.7 - 4.5 mg/dL [facility] Comment: Critical value: Results called to and read back by: SULMA D ED [id number] 04/02/25 BY [id number] Blood 04/02/2025 2:39 PM EDT 04/02/2025 2:44 PM EDT Result Pauline Shane MD LAB BLOOD ORDERABLES Olga l Result Performing Organization Address [facility]/[place] Co de Phone Number [address] [address] * Magnesium (04/02/2025 2:39 PM EDT) MAGNESIUM 2.1 1.6 - 2.6 mg/dL [facility] Blood 04/02/2025 2:39 PM EDT 04/02/2025 2:44 PM EDT Result Pauline Shane MD LAB BLOOD ORDERABLES Olga l Result Performing Organization Address [facility]/[place] Co de Phone Number [address] [address] * (ABNORMAL) Lipase (04/02/2025 2:39 PM EDT) LIPASE 8(L) 16 - 63 U/L [facility] Blood 04/02/2025 2:39 PM EDT 04/02/2025 2:44 PM EDT Result Pauline Shane MD LAB BLOOD ORDERABLES Olga l Result Performing Organization Address [facility]/[place] Co de Phone Number [address] [address] * (ABNORMAL) Acetaminophen level (04/02/2025 2:39 PM EDT) ACETAMINOPHEN <5.0(L) 15.0 - 30.0 ug/mL [facility] Blood 04/02/2025 2:39 PM EDT 04/02/2025 2:44 PM EDT us Kenneth Shane MD LAB BLOOD ORDERABLES Olga l Result [address] [address] * (ABNORMAL) Basic metabolic panel (04/02/2025 2:39 PM EDT) SODIUM 137 133 - 146 mmol/L [facility] CHLORIDE 101 96 - 108 mmol/L [facility] POTASSIUM 4.0 3.3 - 5.1 mmol/L [facility] CO2 23 21 - 35 mmol/L [facility] BUN 18 6 - 19 mg/dL [facility] CREATININE 0.80 0.5 - 1.5 mg/dL [facility] GLUCOSE 112(H) 70 - 99 mg/dL [facility] CALCIUM 9.6 8.4 - 10.3 mg/dL [facility] EGFR >120 >59 mL/min/1.7 3m2 [facility] Comment:Estimated glomerular filtration rate calculated using the CKD-EPI refit equation. ANION GAP 17 10 - 20 mmol/L [facility] Blood 04/02/2025 2:39 PM EDT 04/02/2025 2:44 PM EDT Kenneth Shane MD LAB BLOOD ORDERABLES Olga l Result Performing Organization Address City/[facility]/ZIP Co de Phone Number [address] [address] from Last 3 Months Insurance [employer] [place] Care Teams Ferryboat Ticket Taker Relationship Specialty Start Date End Date Sahil Chen CNP [address] [place] [phone] PCP - General Nurse Practitioner 04/02/25 Additional Source Comments The information contained in this document represents components of the legal health record. It is not the complete legal health record.[facility]
== END 2025-06-05 10:36 | disposition home or self-care (01) ==
LOC: HO.PMC 09:57
PROVIDERS: Visit Provider Registered Nurse Emergency
DX: M47.816 Spondylosis without myelopathy or radiculopathy, lumbar region (principal)
CPT/HCPCS: 99204

== ENCOUNTER → 2025-06-05 09:56 | Outpatient (BNVA) | payer MEDICAID, SELFPAY | PROVIDERS: Visit Provider Registered Nurse Emergency | DX: M47.816 Spondylosis without myelopathy or radiculopathy, lumbar region (principal) | CPT/HCPCS: 99212 ==

== ENCOUNTER 2025-06-22 15:06 | Emergency (ER) | payer MEDICAID, SELFPAY ==
[2025-06-22] VITALS (7 sets, daily range): BP systolic 122–149; BP diastolic 64–98; PULSE 83–112; RESP 14–22; TEMP 36.8; O2SAT 96–100; BMI 18.9
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
[2025-06-22 15:23] LABS: Glucose, Whole Blood 237 mg/dL (60-115)
[2025-06-22 15:32] LABS: MANUAL DIFF FLAG NO
[2025-06-22 15:34] LABS: Hematocrit 38.3 % (42.0-52.0); Hemoglobin 12.5 g/dl (14.0-18.0); Imm Gran Abs Auto 0.01 X10*3/uL (0.00-0.03); Imm Gran Pct Auto 0.1 % (0.0-0.4); Lymphocytes Absolute Auto 1.6 X10*3/uL (1.2-4.9); Mean Corpuscular HGB Conc 32.6 g/dl (31.0-36.0); Mean Corpuscular Hemoglobin 25.8 pg (27.0-33.0); Mean Corpuscular Volume 79.0 fL (80.0-98.0); NRBC Abs Auto 0.000 X10*3/uL (0.0-0.012); NRBC Pct Auto 0.0 /100WBC (0.0-0.2); Platelet Count 302 X10*3/uL (160-400); Red Blood Count 4.85 X10*6/uL (4.60-5.80); White Blood Count 7.7 X10*3/uL (4.8-10.8)
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
[2025-06-22 15:50] LABS: COVID-19 Test Negative (Negative); IDNOW Serial# 55D5AD1C; IDNOW Serial# 58CA691E; Influenza B2 Negative (Negative)
[2025-06-22] MEDS: diazePAM 10 MG/2 ML CARTRIDGE 5 MG IVPUSH (15:51)
[2025-06-22] MEDS: Lactated Ringers 1,000 ML 999 ML IV (15:51)
[2025-06-22 15:55] LABS: Alanine Aminotransferase 31 U/L (0-40); Albumin Level 4.3 g/dL (3.5-5.0); Alkaline Phosphatase 95 U/L (39-117); Anion Gap 16 (12-20); Aspartate Amino Transferase 66 U/L (5-37); Blood Urea Nitrogen 20 mg/dL (9-16); Calcium 9.3 mg/dL (8.4-10.2); Carbon Dioxide 20 mmol/L (22-29); Chloride 102 mmol/L (96-108); Creatinine Clr Calc Pharmacy 150.1; Estimated Glomerular Filt Rate > 60; Potassium 4.2 mmol/L (3.3-5.1); Sodium 134 mmol/L (135-145); Total Protein 7.3 g/dL (6.5-8.0)
[2025-06-22 15:59] LABS: Venous Blood Gas Refer to POC result
[2025-06-22 16:00] LABS: VBG HCO3 24 mmol/L (22-26); VBG O2 % Saturation 76.0 %
[2025-06-22 16:16] LABS: Troponin-I High Sensitivity < 2.7 ng/L (<3.5-35.0)
[2025-06-22] MEDS: iohexoL 350 MG/ML 100 ML INFUS..BTL IV (16:46)
--- OUTSIDE RECORDS SUMMARY | 2025-06-22 16:53 | XMS_ITS | Encounter Summary ---
Author Organization [employer] Address [address] [place] [address] Care Team Providers Care Buttonhole Machine Operator Name Role Phone Amna Urrutia Primary Care Provider [phone] Name, Everett ROSE Primary Care Provider [phone] Sahil Chen CNP Primary Care Provider [phone] Reason for Visit * Reason Comments Med Refill Encounter Details Date Type Department Care Team ([facility] st Contact Info) Description 10/04/2023 Refill [facility] [address] [place] [address] Amna Urrutia FNP [address] [place] [address] Type 1 diabetes mellitus with hyperglycemia ([facility]) Social History Tobacco [...] Diagnosis Type 1 diabetes mellitus with hyperglycemia (HCC) documented in this encounter Additional Health Concerns Assessment Noted Time PHQ-9 Depression Total Score: 16 023 8:52 AM EDT documented as of this encounter Care Teams Buttonhole Machine Operator Relationship Specialty Start Date End Date Amna Urrutia FNP [address] [place] [id number] PCP - General Family Medicine 01/01/23 04/18/24 Everett Angulo MD [address] [place] [id number] PCP - General Internal Medicine 04/19/24 10/08/24 Sahil Chen CNP [address] [place] [id number] PCP - General Family Medicine 10/09/24 Chris Pack Jr Ceramic Tile InstallerShoe Sprayer 09/04/24 documented as of this encounter
--- OUTSIDE RECORDS SUMMARY | 2025-06-22 16:53 | XMS_ITS | Encounter Summary ---
Author Organization [employer] Address [address] [place] [address] Care Team Providers Care Track Hoe Operator Name Role Phone Amna Urrutia Primary Care Provider [phone] Adele, Everett ROSE Primary Care Provider [phone] Sahil Chen CNP Primary Care Provider [phone] Reason for Visit * Reason Comments Med Refill Encounter Details Date Type Department Care Team ([facility] st Contact Info) Description 05/30/2023 Refill [facility] [address] [place] [address] Amna Urrutia FNP [address] [place] [address] Social History Tobacco Use Types Packs/Day Years [...] documented as of this encounter Care Teams Track Hoe Operator Relationship Specialty Start Date End Date Amna Urrutia FNP [address] [place] [address] PCP - General Family Medicine 01/01/23 04/18/24 Everett Angluo MD [address] [place] [address] PCP - General Internal Medicine 04/19/24 10/08/24 Sahil Chen CNP [address] [place] [address] PCP - General Family Medicine 10/09/24 Chris Pack Jr Heeler MachineGranite Chip Terrazzo Finisher 09/04/24 documented as of this encounter
--- OUTSIDE RECORDS SUMMARY | 2025-06-22 16:53 | XMS_ITS | Encounter Summary ---
Author Organization [employer] Address 75 [facility] 7t [place] [address] Care Team Providers Care Manager Of Program Name Role Phone Amna Urrutia Primary Care Provider [phone] Name, Everett ROSE Primary Care Provider [phone] Sahil Chen CNP Primary Care Provider [phone] Reason for Visit * Reason Onset Date Comments Appointment Request 09/08/2023 Encounter Details Date Type Department Care Team ([facility] Contact Info) Description 09/08/2023 Telephone [facility] MEDICINE [address] [place] [address] Amna Urrutia FNP [address] [place] [address] Appointment Request Social History Tobacco Use Types [...] to reschedule missed appt on 09/06 however functional tester typewriters was not able to offer apptdue to the provider did not have any availably documented in this encounter Plan of Treatment Not on file documented as of this encounter Visit Diagnoses Not on filedocumented in this encounter Additional Health Concerns Assessment Noted Time PHQ-9 Depression Total Score: 16 023 8:52 AM EDT documented as of this encounter Care Teams Manager Of Program Relationship Specialty Start Date End Date Amna Urrutia FNP [address] [place] [address] PCP - General Family Medicine 01/01/23 04/18/24 Everett Angulo MD [address] [place] [address] PCP - General Internal Medicine 04/19/24 10/08/24 Sahil Chen CNP [address] [place] [address] PCP - General Family Medicine 10/09/24 Chris Pack Jr Boiler Tenders SupervisorFilm Painter 1/15/25 documented as of this encounter
--- OUTSIDE RECORDS SUMMARY | 2025-06-22 16:53 | XMS_ITS | Encounter Summary ---
Author Organization [employer] Address [address] [facility] [address] 7t [place] [address] Care Team Providers Care Collar Separator Name Role Phone Amna Urrutia Primary Care Provider [phone] Adele, Everett ROSE Primary Care Provider [phone] Sahil Chen CNP Primary Care Provider [phone] Reason for Visit * Reason Comments Med Refill Encounter Details Date Type Department Care Team ([facility] st Contact Info) Description 08/29/2023 Refill [facility] MEDICINE [address] [place] [address] Carlos Alberto Villavicencio MD [address] [place] [address] Type 1 diabetes mellitus with hyperglycemia (CMS/HCC) [...] documented as of this encounter Care Teams Collar Separator Relationship Specialty Start Date End Date Amna Urrutia FNP [address] [place] [address] PCP - General Family Medicine 01/01/23 04/18/24 Everett Angulo MD [address] [place] [address] PCP - General Internal Medicine 04/19/24 10/08/24 Sahil Chen CNP [address] [place] [address] PCP - General Family Medicine 10/09/24 Chris Pack Jr Print Line FeederFloor Refinisher 09/04/24 documented as of this encounter
--- OUTSIDE RECORDS SUMMARY | 2025-06-22 16:53 | XMS_ITS | Encounter Summary ---
Author Organization [employer] Address [address] [facility] [address] 7t [place] [address] Care Team Providers Care Yarn Carrier Name Role Phone Amna Urrutia Primary Care Provider [phone] Adele, Everett ROSE Primary Care Provider [phone] Sahil Chen CNP Primary Care Provider [phone] Reason for Visit * Reason Onset Date Comments Med Refill 07/15/2023 Encounter Details Date Type Department Care Team (Late st Contact Info) Description 07/15/2023 Refill [facility] [address] [place], [place] [phone] Amna Urrutia FNP [address] [place] [address] Social History Tobacco Use Types Packs/Day Years [...] documented as of this encounter Care Teams Yarn Carrier Relationship Specialty Start Date End Date Amna Urrutia FNP 230 [place] [address] PCP - General Family Medicine 01/01/23 04/18/24 Everett Angulo MD [address] [place] [address] PCP - General Internal Medicine 04/19/24 10/08/24 Sahil Chen CNP [address] [place] [address] PCP - General Family Medicine 10/09/[address] Freight ConductorLouver Mortiser Operator 09/04/24 documented as of this encounter
--- OUTSIDE RECORDS SUMMARY | 2025-06-22 16:53 | XMS_ITS | Encounter Summary ---
Author Organization [employer] Address 75 [facility] 7t [place] [address] Care Team Providers Care Food Service Technician Name Role Phone Amna Urrutia Primary Care Provider [phone] Adele, Everett ROSE Primary Care Provider [phone] Sahil Chen CNP Primary Care Provider [phone] Reason for Visit * Reason Onset Date Comments Nurse Triage 05/30/2023 Encounter Details Date Type Department Care Team ([facility] st Contact Info) Description 05/30/2023 Telephone [facility] MEDICINE [address] [place] [address] Amna Urrutia FNP [address] [place] [address] Nurse Triage Social History Tobacco Use Types [...] for patient seen at [facility] 05/29/23 following head injury at work. 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
--- OUTSIDE RECORDS SUMMARY | 2025-06-22 16:53 | XMS_ITS | Encounter Summary ---
Author Organization [employer] Address [address] [facility] [address] 7t [place] [address] Care Team Providers Care Wort Extractor Name Role Phone Amna Urrutia Primary Care Provider [phone] Name, Everett ROSE Primary Care Provider [phone] Sahil Chen CNP Primary Care Provider [phone] Reason for Visit * Reason Comments Med Refill Encounter Details Date Type Department Care Team ([facility] st Contact Info) Description 09/11/2023 Refill [facility] MEDICINE 230 [place], [place] [phone] Amna Urrutia FNP 230 [place] [address] Type 1 diabetes mellitus with hyperglycemia ([facility]) Social History Tobacco Use Types Packs/Day [...] documented as of this encounter Care Teams Wort Extractor Relationship Specialty Start Date End Date Amna Urrutia FNP [address] [place] [address] PCP - General Family Medicine 01/01/23 04/18/24 Everett Angulo MD [address] [place] [address] PCP - General Internal Medicine 04/19/24 10/08/24 Sahil Chen CNP [address] [place] [address] PCP - General Family Medicine 10/09/24 Chris Pack Jr Assistant Professor Of CommunicationBranch Banker 09/04/24 documented as of this encounter
--- OUTSIDE RECORDS SUMMARY | 2025-06-22 16:53 | XMS_ITS | Encounter Summary ---
Author Organization [employer] Address [address] [facility] [address] 7t [place] [address] Care Team Providers Care Lumber Stacker Operator Name Role Phone Amna Urrutia Primary Care Provider [phone] Name, Everett ROSE Primary Care Provider [phone] Sahil Chen CNP Primary Care Provider [phone] Reason for Visit * Reason Comments Med Refill Encounter Details Date Type Department Care Team ([facility] st Contact Info) Description 09/08/2023 Refill [facility] MEDICINE [address] [place], [place] [phone] Amna Urrutia FNP [address] [place] [address] Type 1 diabetes mellitus with hyperglycemia ([facility]) Social History [...] documented as of this encounter Care Teams Lumber Stacker Operator Relationship Specialty Start Date End Date Amna Urrutia FNP [address] [place] [address] PCP - General Family Medicine 01/01/23 04/18/24 Everett Angulo MD [address] [place] [address] PCP - General Internal Medicine 04/19/24 10/08/24 Sahil Chen CNP [address] [place] [address] PCP - General Family Medicine 10/09/24 Chris Pack Jr Needle Bar MolderWaste Recycler 09/04/24 documented as of this encounter
--- OUTSIDE RECORDS SUMMARY | 2025-06-22 16:53 | XMS_ITS | Encounter Summary ---
Author Organization [employer] Address 75 [facility] 7t [place] [address] Care Team Providers Care Oil Expeller Name Role Phone Amna Urrutia Primary Care Provider [phone] Name, Everett ROSE Primary Care Provider [phone] Sahil Chen CNP Primary Care Provider [phone] Reason for Visit * Reason Onset Date Comments Med Refill 05/30/2023 Encounter Details Date Type Department Care Team (Late st Contact Info) Description 05/30/2023 Refill [facility] MEDICINE 230 [place] [address] Amna Urrutia FNP [address] [place] [address] Social History Tobacco Use Types Packs/Day Years [...] as of this encounter Care Teams Oil Expeller Relationship Specialty Start Date End Date Amna Urrutia FNP 230 [place] [address] PCP - General Family Medicine 01/01/23 04/18/24 Everett Angulo MD [address] [place] [address] PCP - General Internal Medicine 04/19/24 10/08/24 Sahil Chen CNP [address] [place] [address] PCP - General Family Medicine 10/09/24 Chris Pack Jr Juvenile Detention OfficerEquipment Coordinator 09/04/24 documented as of this encounter
--- OUTSIDE RECORDS SUMMARY | 2025-06-22 16:53 | XMS_ITS | Encounter Summary ---
Author Organization [employer] Address [address] [facility] [address] 7t [place] [address] Care Team Providers Care Animal Care Attendant Name Role Phone Amna Urrutia Primary Care Provider [phone] Adele, Everett ROSE Primary Care Provider [phone] Sahil Chen CNP Primary Care Provider [phone] Encounter Details Date Type Department Care Team (Late st Contact Info) Description 06/28/2023 Orders Only [facility] 230 [place], [place] [phone] Santos Mueller MD 230 [place] [address] Social History Tobacco Use Types Packs/Day Years [...] as of this encounter Care Teams Animal Care Attendant Relationship Specialty Start Date End Date Amna Urrutia FNP 230 [place] [address] PCP - General Family Medicine 01/01/23 04/18/24 Everett Angulo MD [address] [place] [address] PCP - General Internal Medicine 04/19/24 10/08/24 Sahil Chen CNP [address] [place] [address] PCP - General Family Medicine 10/09/24 Chris Pack Jr Lithograph Press FeederBanking Center Manager 09/04/24 documented as of this encounter
--- OUTSIDE RECORDS SUMMARY | 2025-06-22 16:53 | XMS_ITS | Encounter Summary ---
Author Organization [employer] Address 75 [facility] 7t [place] [address] Care Team Providers Care Managed Care Provider Name Role Phone Amna Urrutia Primary Care Provider [phone] Adele, Everett ROSE Primary Care Provider Sahil Chen CNP Primary Care Provider [phone] Reason for Visit * Reason Onset Date Comments Reschedule 02/14/2024 Encounter Details Date Type Department Care Team ([facility] st Contact Info) Description 02/14/[address] [facility] MEDICINE [address] [place] [address] Amna Urrutia FNP [address] [place] [address] Reschedule Social History Tobacco Use Types Packs/Day [...] to reschedule 02/13 follow up extended appointment. Junior Sales Representative attempted to reschedule but no availability. Please contact pt at [phone] documented in this encounter Plan of Treatment Not on file documented as of this encounter Visit Diagnoses Not on filedocumented in this encounter Additional Health Concerns Assessment Noted Time PHQ-9 Depression Total Score: 10 024 1:01 PM EDT documented as of this encounter Care Teams Managed Care Provider Relationship Specialty Start Date End Date Amna Urrutia FNP [address] [place] [address] PCP - General Family Medicine 01/01/23 04/18/24 Everett Angulo MD [address] [place] [address] PCP - General Internal Medicine 04/19/24 10/08/24 Sahil Chen CNP [address] [place] [address] PCP - General Family Medicine 10/09/24 Chris Pack Jr Mill RecorderMingle Operator 09/04/24 documented as of this encounter
--- OUTSIDE RECORDS SUMMARY | 2025-06-22 16:53 | XMS_ITS | Encounter Summary ---
Author Organization [employer] Address [address] [facility] [address] 7t [place] [address] Care Team Providers Care Color Paste Mixing Supervisor Name Role Phone Name, Everett ROSE Primary Care Provider [phone] Sahil Chen CNP Primary Care Provider [phone] Reason for Visit * Reason Comments Med Refill Encounter Details Date Type Department Care Team (Late st Contact Info) Description 05/03/2024 Refill [facility] [address] [place], [place] [phone] Amna Urrutia FNP [address] [place] [address] Type 1 diabetes mellitus with hyperglycemia (CMS/COASTAL [...] documented as of this encounter Care Teams Color Paste Mixing Supervisor Relationship Specialty Start Date End Date Name, MD Everett 230 [place] [address] PCP - General Internal Medicine 04/19/24 10/08/24 Sahil Chen CNP [address] [place] [address] PCP - General Family Medicine 10/09/24 Chris Pack Jr Lard BleacherFund Accounting Manager 09/04/24 documented as of this encounter
--- OUTSIDE RECORDS SUMMARY | 2025-06-22 16:53 | XMS_ITS | Encounter Summary ---
Author Organization [employer] Address [address] [facility] [address] 7t [place] [address] Care Team Providers Care Optometrist Name Role Phone Name, Everett ROSE Primary Care Provider [phone] Sahil Chen CNP Primary Care Provider [phone] Encounter Details Date Type Department Care Team (Late st Contact Info) Description 04/21/2024 Orders Only [facility] MED & P[facility]S [address] [place], [place] [phone] Amna Urrutia FNP [address] [place], [place] [phone] Social History Tobacco Use Types Packs/Day Years [...] documented as of this encounter Care Teams Optometrist Relationship Specialty Start Date End Date Name, MD Everett [address] [place] [address] PCP - General Internal Medicine 04/19/24 10/08/24 Sahil Chen CNP [address] [place] [address] PCP - General Family Medicine 10/09/24 Chris Pack Jr Professional OrganizerPlastic Welding Machine Operator 09/04/24 documented as of this encounter
--- OUTSIDE RECORDS SUMMARY | 2025-06-22 16:53 | XMS_ITS | Encounter Summary ---
Author Organization [employer] Address [address] [facility] [address] 7t [place] [address] Care Team Providers Care Director Of Clinical Applications Name Role Phone Amna Urrutia Primary Care Provider [phone] Name, Everett ROSE Primary Care Provider [phone] Sahil Chen CNP Primary Care Provider [phone] Reason for Visit * Reason Onset Date Comments Med Refill 09/27/2023 Encounter Details Date Type Department Care Team (Late st Contact Info) Description 09/27/2023 Refill [facility] MEDICINE [address] [place] [address] Amna Urrutia FNP [address] [place] [address] Type 1 diabetes mellitus with hyperglycemia (ST. [...] of this encounter Care Teams Director Of Clinical Applications Relationship Specialty Start Date End Date Amna Urrutia FNP [address] [place] [address] PCP - General Family Medicine 01/01/23 04/18/24 Everett Angulo MD [address] [place] [address] PCP - General Internal Medicine 04/19/24 10/08/24 Sahil Chen CNP [address] [place] [address] PCP - General Family Medicine 10/09/24 Chris Pack Jr Oracle Apex DeveloperDirector Of Global Sales 09/04/24 documented as of this encounter
--- OUTSIDE RECORDS SUMMARY | 2025-06-22 16:53 | XMS_ITS | Encounter Summary ---
Author Organization [facility] Address [address] [place] [address] Phone Care Team Providers Care Offset Plate Preparation Supervisor Name Role Phone Santos Mueller MD Primary Care Provider [phone] Encounter Details Date Type Department Care Team (Late st Contact Info) Description 07/28/2023 Documentation Only [facility] [place], [address] [place] [address] Santos Mueller MD [address] [place] [address] Social History Tobacco Use Types [...] on filedocumented in this encounter Care Teams Offset Plate Preparation Supervisor Relationship Specialty Start Date End Date Santos Mueller MD [address] [place] [address] PCP - General Emergency Medicine 07/28/23 documented as of this encounter
--- OUTSIDE RECORDS SUMMARY | 2025-06-22 16:54 | XMS_ITS | Encounter Summary ---
Author Organization [employer] Address 75 [facility] 7t [place] [address] Care Team Providers Care Senior C Web Developer Name Role Phone Amna Urrutia Primary Care Provider [phone] Name, Everett ROSE Primary Care Provider [phone] Sahil Chen CNP Primary Care Provider [phone] Reason for Visit * Reason Onset Date Comments Med Refill 03/21/2023 Encounter Details Date Type Department Care Team (Late st Contact Info) Description 03/21/2023 Refill [facility] MEDICINE 230 [place] [address] Amna Urrutia FNP [address] [place] [address] Social History Tobacco Use Types Packs/Day Years [...] as of this encounter Care Teams Senior C Web Developer Relationship Specialty Start Date End Date Amna Urrutia FNP [address] [place] [address] PCP - General Family Medicine 01/01/23 04/18/24 Everett Angulo MD [address] [place] [address] PCP - General Internal Medicine 04/19/24 10/08/24 Sahil Chen CNP [address] [place] [address] PCP - General Family Medicine 10/09/24 Chris Pack Jr Process ChemistLicensed Psychologist Director 09/04/24 documented as of this encounter
--- OUTSIDE RECORDS SUMMARY | 2025-06-22 16:54 | XMS_ITS | Encounter Summary ---
Author Organization [facility] Address [address] [place] [address] Phone Care Team Providers Care Grey Washer Name Role Phone Santos Mueller MD Primary Care Provider [phone] Encounter Details Date Type Department Care Team (Late st Contact Info) Description 08/05/2024 Documentation Only [facility] [place], [address] [place] [address] Jessica Sprague [address] [place] [address] Social History Tobacco Use Types [...] on filedocumented in this encounter Care Teams Grey Washer Relationship Specialty Start Date End Date Santos Mueller MD [address] [place] [address] PCP - General Emergency Medicine 07/28/23 documented as of this encounter
--- OUTSIDE RECORDS SUMMARY | 2025-06-22 16:54 | XMS_ITS | Encounter Summary ---
Author Organization [employer] Address 75 [facility] 7t [place] [address] Care Team Providers Care Imaging Center Manager Name Role Phone Amna Urrutia Primary Care Provider [phone] Adele, Everett ROSE Primary Care Provider [phone] Sahil Chen CNP Primary Care Provider [phone] Reason for Visit * Reason Onset Date Comments Med Refill 07/15/2023 Encounter Details Date Type Department Care Team (Late st Contact Info) Description 07/15/2023 Refill [facility] MEDICINE [address] [place] [address] Sandra Leal MD [address] [place] [address] Social History Tobacco Use Types Packs/Day Years [...] documented as of this encounter Care Teams Imaging Center Manager Relationship Specialty Start Date End Date Amna Urrutia FNP 230 [place] [address] PCP - General Family Medicine 01/01/23 04/18/24 Everett Angulo MD [address] [place] [address] PCP - General Internal Medicine 04/19/24 10/08/24 Sahil Chen CNP [address] [place] [address] PCP - General Family Medicine 10/09/24 Chris Pack Jr Brazing Machine FeederResaw Operator 09/04/24 documented as of this encounter
--- OUTSIDE RECORDS SUMMARY | 2025-06-22 16:54 | XMS_ITS | Encounter Summary ---
Author Organization [employer] Address 75 [facility] 7t [place] [address] Care Team Providers Care Parts Back Counter Man Name Role Phone Amna Urrutia Primary Care Provider [phone] Adele, Everett ROSE Primary Care Provider [phone] Sahil Chen CNP Primary Care Provider [phone] Reason for Visit * Reason Onset Date Comments Med Refill 04/28/2023 Encounter Details Date Type Department Care Team (Late st Contact Info) Description 04/28/2023 Refill [facility] MEDICINE [address] [place] [address] Sandra Leal MD [address] [place] [address] Social History Tobacco Use Types Packs/Day Years [...] as of this encounter Care Teams Parts Back Counter Man Relationship Specialty Start Date End Date Amna Urrutia FNP [address] [place] [address] PCP - General Family Medicine 01/01/23 04/18/24 Everett Angulo MD [address] [place] [address] PCP - General Internal Medicine 04/19/24 10/08/24 Sahil Chen CNP [address] [place] [address] PCP - General Family Medicine 10/09/24 Chris Pack Jr Professor Of MarketingAuto Locator 09/04/24 documented as of this encounter
--- OUTSIDE RECORDS SUMMARY | 2025-06-22 16:54 | XMS_ITS | Clinical Summary ---
Author Organization [facility], Address [address] [place] [address] [place] [address] Phone Care Team Providers Care Bridal Service Sales And Management Name Role Phone Santos Mueller MD Primary Care Provider [phone] Allergies Active Allergy Reactions Criticality Noted Date [...] 2025 06/08/2016 Insurance Medicaid [place] Care Teams Bridal Service Sales And Management Relationship Specialty Start Date End Date Santos Mueller MD [address] [place] [phone] PCP - General Emergency Medicine 07/28/23
--- OUTSIDE RECORDS SUMMARY | 2025-06-22 16:54 | XMS_ITS | Encounter Summary ---
Author Organization [employer] Address 75 [facility] 7t [place] [address] Care Team Providers Care Talent Scout Name Role Phone Amna Urrutia Primary Care Provider [phone] Adele, Everett ROSE Primary Care Provider [phone] Sahil Chen CNP Primary Care Provider [phone] Reason for Visit * Reason Onset Date Comments Med Refill 05/01/2023 Encounter Details Date Type Department Care Team (Late st Contact Info) Description 05/01/2023 Refill [facility] MEDICINE [address] [place] [address] Sandra Leal MD 230 [place] [address] Social History Tobacco Use Types Packs/Day Years [...] documented as of this encounter Care Teams Talent Scout Relationship Specialty Start Date End Date Amna Urrutia FNP 230 [place] [address] PCP - General Family Medicine 01/01/23 04/18/24 Everett Angulo MD [address] [place] [address] PCP - General Internal Medicine 04/19/24 10/08/24 Sahil Chen CNP [address] [place] [address] PCP - General Family Medicine 10/09/24 Chris Pack Jr Bilingual RecruiterMachine Preservative Filler 09/04/24 documented as of this encounter
--- OUTSIDE RECORDS SUMMARY | 2025-06-22 16:54 | XMS_ITS | Encounter Summary ---
Author Organization [employer] Address [address] [facility] 7t [place] [address] Care Team Providers Care Laboratory Secretary Name Role Phone Amna Urrutia Primary Care Provider [phone] Adele, Everett ROSE Primary Care Provider [phone] Sahil Chen CNP Primary Care Provider [phone] Reason for Visit * Reason Onset Date Comments Med Refill 04/29/2023 Encounter Details Date Type Department Care Team (Late st Contact Info) Description 04/29/2023 Refill [facility] [address] [place] [address] Sandra Leal MD [address] [place] [address] Social History Tobacco Use Types Packs/Day Years [...] as of this encounter Care Teams Laboratory Secretary Relationship Specialty Start Date End Date Amna Urrutia FNP [address] [place] [address] PCP - General Family Medicine 01/01/23 04/18/24 Everett Angulo MD [address] [place] [address] PCP - General Internal Medicine 04/19/24 10/08/24 Sahil Chen CNP [address] [place] [address] PCP - General Family Medicine 10/09/24 Chris Pack Jr Asset Protection AssociateDigital Recruiter 09/04/24 documented as of this encounter
--- OUTSIDE RECORDS SUMMARY | 2025-06-22 16:54 | XMS_ITS | Encounter Summary ---
Author Organization [employer] Address [address] 7[address] [place] [address] Care Team Providers Care Cafe Lead Name Role Phone Amna Urrutia Primary Care Provider [phone] Adele, Everett ROSE Primary Care Provider [phone] Sahil Chen CNP Primary Care Provider [phone] Encounter Details Date Type Department Care Team (Late st Contact Info) Description 01/17/2023 Orders Only [facility] [address] [place] [address] Amna Urrutia FNP [address] [place] [address] Social History Tobacco Use Types Packs/Day Years [...] documented as of this encounter Care Teams Cafe Lead Relationship Specialty Start Date End Date Amna Urrutia FNP [address] [place] [address] PCP - General Family Medicine 01/01/23 04/18/24 Everett Angulo MD [address] [place], [place] [phone] PCP - General Internal Medicine 04/19/24 10/08/24 Sahil Chen CNP [address] [place] [address] PCP - General Family Medicine 10/09/24 Chris Pack Jr Monomer Recovery SupervisorCommunications Scientist 09/04/24 documented as of this encounter
--- OUTSIDE RECORDS SUMMARY | 2025-06-22 16:54 | XMS_ITS | Encounter Summary ---
Author Organization [employer] Address [address] [place] [address] Care Team Providers Care Narcotics Detective Name Role Phone Amna Urrutia Primary Care Provider [phone] Adele, Everett ROSE Primary Care Provider [phone] Sahil Chen CNP Primary Care Provider [phone] Reason for Visit * Reason Onset Date Comments reaction to medication 10/24/2022 Encounter Details Date Type Department Care Team ([facility] st Contact Info) Description 10/24/2022 Telephone [facility] [address] [place] [address] Marycruz Oseguera DDS [address] [place] [address] reaction to medication Social History Tobacco Use [...] on filedocumented in this encounter Care Teams Narcotics Detective Relationship Specialty Start Date End Date Amna Urrutia FNP [address] [place] [address] PCP - General Family Medicine 01/01/23 04/18/24 Adele, MD Everett [address] [place] [address] PCP - General Internal Medicine 04/19/24 10/08/24 Sahil Chen CNP [address] [place] [address] PCP - General Family Medicine 10/09/24 Chris Pack Jr Show HostSpace Studies Faculty Member 09/04/24 documented as of this encounter
--- OUTSIDE RECORDS SUMMARY | 2025-06-22 16:54 | XMS_ITS | Encounter Summary ---
Author Organization [employer] Address [address] [facility] 7t [place] [address] Care Team Providers Care Office Nurse Name Role Phone Sahil Chen CNP Primary Care Provider [phone] Reason for Visit * Reason Onset Date Comments Medication Question 05/28/2025 Encounter Details Date Type Department Care Team (Late st Contact Info) Description 05/28/2025 Telephone [facility] [address] [place], [place] [id number] Sahil Chen CNP [address] [place] [address] Medication Question Social History Tobacco Use Types [...] encounter Miscellaneous Notes * Telephone Encounter - Isela Mann - 05/28/2025 3:07 PM EDT Tc from pt stating he has been taking double of what was prescribed for cyclobenzaprine (Flexeril) 10 MG tablet , pt states 10MG does nothing for his pain . He is requesting a stronger alternative med for pain Contact pt at [phone] documented in this encounter Plan of Treatment Not on file documented as of this encounter Visit Diagnoses Not on filedocumented in this encounter Additional Health Concerns Assessment Noted Time PHQ-9 Depression Total Score: 15 025 2:28 PM EDT documented as of this encounter Care Teams Office Nurse Relationship Specialty Start Date End Date Sahil Chen CNP PCP - General Family Medicine 10/09/24 Chris Pack Jr Auction Block ClerkLeather Scrubber 09/04/24 documented as of this encounter
--- OUTSIDE RECORDS SUMMARY | 2025-06-22 16:54 | XMS_ITS | Encounter Summary ---
Author Organization [employer] Address [address] 7[address] [place] [address] Care Team Providers Care Station Manager Name Role Phone Amna Urrutia Primary Care Provider [phone] Adele, Everett ROSE Primary Care Provider [phone] Sahil Chen CNP Primary Care Provider [phone] Reason for Visit * Reason Onset Date Comments Med Refill 05/01/2023 Encounter Details Date Type Department Care Team (Late st Contact Info) Description 05/01/2023 Refill [facility] [address] [place] [address] Lakshmi Womack FNP [address] [place] [address] Type 1 diabetes mellitus with hyperglycemia (CMS/HCC) [...] documented as of this encounter Care Teams Station Manager Relationship Specialty Start Date End Date Amna Urrutia FNP [address] [place] [address] PCP - General Family Medicine 01/01/23 04/18/24 Everett Angulo MD [address] [place], [place] [id number] PCP - General Internal Medicine 04/19/24 10/08/24 Sahil Chen CNP [address] [place] [address] PCP - General Family Medicine 10/09/24 Chris Pack Jr Obstetrics GynEmbryology Professor 09/04/24 documented as of this encounter
--- OUTSIDE RECORDS SUMMARY | 2025-06-22 16:54 | XMS_ITS | Encounter Summary ---
Author Organization [employer] Address [address] [facility] 7t [place] [address] Care Team Providers Care Psychiatric Aide Name Role Phone Amna Urrutia Primary Care Provider [phone] Everett Angulo MD Primary Care Provider [phone] Sahil Chen CNP Primary Care Provider [phone] Encounter Details Date Type Department Care Team (Late st Contact Info) Description 10/21/2022 Abstract [facility] [address] [place] [address] Marycruz Oseguera DDS [address] [place] [address] Social History Tobacco Use Types Packs/Day Years [...] on filedocumented in this encounter Care Teams Psychiatric Aide Relationship Specialty Start Date End Date Amna Urrutia FNP [address] [place] [address] PCP - General Family Medicine 01/01/23 04/18/24 Everett Angulo MD [address] [place] [address] PCP - General Internal Medicine 04/19/24 10/08/24 Sahil Chen CNP [address] [facility] [place] [address] PCP - General Family Medicine 10/09/24 Chris Pack Jr ClamperOrganic Extractions Technician 09/04/24 documented as of this encounter
--- OUTSIDE RECORDS SUMMARY | 2025-06-22 16:54 | XMS_ITS | Encounter Summary ---
Author Organization [employer] Address [address] [place] [address] Care Team Providers Care Sack Keeper Name Role Phone Sahil Chen CNP Primary Care Provider [phone] Reason for Visit * Reason Comments Med Refill Encounter Details Date Type Department Care Team (Late st Contact Info) Description 01/09/2025 Refill [facility] [address] [place] [address] Sahil Chen CNP [address] [place], [place] [phone] Type 1 diabetes mellitus with hyperglycemia (CMS/[facility]) Social History Tobacco Use [...] documented as of this encounter Care Teams Sack Keeper Relationship Specialty Start Date End Date Sahil Chen CNP PCP - General Family Medicine 10/09/24 Chris Pack Jr Maintenance PersonShot Polisher 09/04/24 documented as of this encounter
--- OUTSIDE RECORDS SUMMARY | 2025-06-22 16:54 | XMS_ITS | Encounter Summary ---
Author Organization [employer] Address [address] [place] [address] Care Team Providers Care Red Hat Linux Administrator Name Role Phone Amna Urrutia Primary Care Provider [phone] Adele, Everett ROSE Primary Care Provider [phone] Sahil Chen CNP Primary Care Provider [phone] Reason for Visit * Reason Onset Date Comments Med Refill 05/03/2023 Encounter Details Date Type Department Care Team (Late st Contact Info) Description 05/03/2023 Refill [facility] [address] [place] [address] Amna Urrutia FNP [address] [place] [address] Type 1 diabetes mellitus with hyperglycemia (CMS/HCC) [...] documented as of this encounter Care Teams [employer] Administrator Relationship Specialty Start Date End Date Amna Urrutia FNP [address] [place] [address] PCP - General Family Medicine 01/01/23 04/18/24 Everett Angulo MD [address] [place], [place] [phone] PCP - General Internal Medicine 04/19/24 10/08/24 Sahil Chen CNP [address] [place] [address] PCP - General Family Medicine 10/09/24 Chris Pack Jr PrestidigitatorSilk Screen Processor 09/04/24 documented as of this encounter
--- OUTSIDE RECORDS SUMMARY | 2025-06-22 16:54 | XMS_ITS | Clinical Summary ---
Author Organization [employer] Address [address] [facility] [address] [place] [address] Care Team Providers Care Wire Insulator Name Role Phone ChenSahil TUBE BENDER HAND Primary Care Provider [phone] Allergies Active Allergy Reactions Criticality Noted Date [...] record from that organization. Continuous Blood Gluc Poultry Processing Supervisor (FreeStyle Shiraz 2 [place]) deviceIndications: Type 1 diabetes mellitus with hyperglycemia (HCC) Use with sensor to monitor blood glucose [...] miscIndications:Ty pe 1 diabetes mellitus with hyperglycemia (HCC) Use to monitor blood sugar level - change sensor every 14 days or per package directions. 2 each 3 Active Tresiba FlexTouch 200 UNIT/ML injectionIndicatio ns:Type 1 diabetes mellitus with hyperglycemia (HCC) Inject 20 Units under the skin in the morning. 3 mL 3 025 Active melatonin 10 MG tabletIndications: Insomnia, unspecified type Take 1 tablet (10 mg) by mouth at bedtime. 90 tablet 025 Active bacitracin 500 UNIT/GM ointmentIndication s:Infection of skin of toes Apply topically 2 times daily. 14 g 025 Active promethazine (Phenergan) 25 MG tabletIndications: Type 1 diabetes mellitus with hyperglycemia (HCC) TAKE 1 TABLET BY MOUTH THREE TIMES DAILY NEEDED FOR NAUSEA AND VOMITING 15 tablet 1 025 Active Blood Glucose Monitoring Suppl (FreeStyle [place] Lite) w/Device kit 1 each by Other route every 6 (six) hours. 1 kit 025 Active insulin pen needle (BD Pen Needle Roxanna U/F) 32G x 4 mm miscIndications:Ty pe 1 diabetes mellitus with hyperglycemia (HCC) USE WITH INSULIN as INSTRUCTED 100 each 3 025 Active DULoxetine (Cymbalta) [address] capsuleIndications :Chronic back pain, unspecified back location, unspecified back pain laterality,Depress ion, unspecified depression type Take 1 capsule (30 mg) by mouth 2 times daily. Do not crush or chew. 60 capsule 11 025 04/09 Active cyclobenzaprine (Flexeril) 10 MG tabletIndications: Chronic back pain, unspecified back location, unspecified back pain laterality TAKE 1 TABLET BY MOUTH THREE TIMES DAILY FOR 10 DAYS 30 tablet 025 Active mirtazapine (Remeron) 15 MG tabletIndications: Depression, unspecified depression type TAKE 1 TABLET BY MOUTH EVERY DAY AT BEDTIME 30 tablet 025 Active cyclobenzaprine (Flexeril) 10 MG tabletIndications: Chronic back pain, unspecified back location, unspecified back pain laterality TAKE 1 TABLET BY MOUTH THREE TIMES DAILY FOR 10 DAYS 30 tablet 025 05/27 Discontinued mirtazapine (Remeron) 15 MG tabletIndications: Depression, unspecified depression type TAKE 1 TABLET BY MOUTH AT BEDTIME 30 tablet 025 06/12 Discontinued Active Problems Patient Care Coordination No [...] with hyperglycemia 11/19 Overview (11/28/2024): Follows with [facility] Endo LITO 09/2024 Has CGM [...] Pt last f/u with GI 08/2024 at [facility], per provider note: Plan: - Labs as below - US ABd - Barium swallow - Avoid NSAIDs and smoking - Cont ppi Assessment & Plan (04/14/2023 6:18 PM EDT): 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 Follow up with [facility] [place]: Recommended for follow-up: TBD 2. Patient goal [...] services. PLAN: 1. Follow up with [facility] [place]: Not recommended for follow-up 2. Patient goal [...] to schedule apt ---I discussed today w emergency management specialist and request to try to schedule [...] f up until can start care w cutting pressman Type 1 diabetes mellitus without complication Overview (03/19/2025): Follows with [facility]anc 12/[address] [...] (03/21/2024 3:41 PM EDT): Has apt w Superintendent Logging next week to start care Assessment & [...] PM EDT): Reports diagnosed approx 2018 [place] Referral to establish with GI provider placed [...] organization. Date Type Department Care Team Description 06/22/2025 Orders Only GENERIC EXTERNAL DATA DEPARTMENT Provider, Generic External Data 06/10/2025 Refill [facility] MEDICINE [address] [place] [phone] Sahil Chen CNP Depression, unspecified depression type 06/06/2025 Refill [facility] MEDICINE [address] [place] [address] Sahil Chen CNP Chronic back pain, unspecified back location, unspecified back pain laterality 05/28/2025 Telephone [facility] MED & PEDS [address] [place] [address] Sahil Chen CNP Medication Question 05/27/2025 Telephone [facility] MED & PEDS [address] [place] [address] Sahil Chen CNP Chart Prep (H/) 05/26/2025 Refill [facility] MEDICINE [address] [place] [address] Sahil Chen CNP Chronic back pain, unspecified back location, unspecified back pain laterality 05/12/2025 Refill [facility] MEDICINE [address] [place] [phone] Sahil Chen CNP Chronic back pain, unspecified back location, unspecified back pain laterality; Depression, unspecified depression type 05/11/2025 Orders Only [facility] External Provider, [facility] 04/25/2025 Refill [facility] MEDICINE [address] [place] [address] Sahil Chen TUBE BENDER HAND Chronic back pain, unspecified back location, unspecified back pain laterality 04/22/2025 Results Follow-Up [facility] MED & PEDS [address] [place] [address] Sahil Chen CNP MR Lumbar Spine w/o Contrast 04/09/2025 9:00 AM EDT Office Visit [facility] MEDICINE [address] [place] [phone] Sahil Chen CNP Chronic back pain, unspecified back location, unspecified back pain laterality (Primary Dx); Depression, unspecified depression type 04/09/2025 Travel 04/08/2025 Telephone [facility] MEDICINE [address] [place] [phone] Sahil Chen CNP Chart Prep 04/03/[address] [address] Sahil Chen CNP 04/02/[address] [address] Sahil Chen CNP 04/01/[address] [address] Sahil Chen CNP Medication Question 03/24/2025 Orders Only [facility] MED & PEDS [address] [place] [address] Sahil Chen CNP Type 1 diabetes mellitus with hyperglycemia ([facility]) from Last 3 Months Immunizations Immunization Administration [...] Procedure Name Priority Date/Time Associated Diagnosis Comments VENOUS BLOOD GAS Routine 06/22/2025 3:56 PM EST HIGH SENSITIVITY TROPONIN I Routine 06/22/2025 3:51 PM EST BETA-HYDROXYBUTYRATE Routine 06/22/2025 3:28 PM EST COMPREHENSIVE METABOLIC PANEL Routine 06/22/2025 3:28 PM EST COVID-19 ID NOW (Citizen.VC) Routine 06/22/2025 3:28 PM EST CBC WITH AUTO DIFFERENTIAL Routine 06/22/2025 3:28 PM EST INFLUENZA A B2 ID NOW (Citizen.VC) Routine 06/22/2025 3:28 PM EST GLUCOSE, WHOLE BLOOD Routine 06/22/2025 3:15 PM EST XR THORACIC SPINE 2 VIEWS Routine 05/11/2025 9:53 PM EDT XR CHEST 2 VIEWS Routine 05/11/2025 9:52 PM EDT MR LUMBAR SPINE WO CONTRAST Routine 04/18/2025 5:56 PM EDT Chronic back pain, unspecified back location, unspecified back pain laterality POCT GLYCATED HEMOGLOBIN, TOTAL Routine 03/19/2025 10:50 AM EDT Type 1 diabetes mellitus without complication (CMS/HCC) HEPATITIS C AB W/REFL TO HCV [...] Relevant to Health Maintenance Results * (ABNORMAL) VENOUS BLOOD GAS (06/22/2025 3:56 PM EST) [facility] VBG pH 7.51(H) 7.32 - 7.43 [facility] Comment:METER #: [id number] additional_comment: Cb edwardt VBG PCO2 30 mmHg [facility] Comment:METER #: [id number] additional_comment: Cb edwardt VBG PO2 45 mmHg [facility] Comment:METER #: [id number] additional_comment: Cb edwardt VBG Base Excess 2.3 mmol/L [facility] Comment:METER #: [id number] additional_comment: Cb edwardt VBG HCO3 24 22 - 26 mmol/L [facility] Comment:METER #: [id number] additional_comment: Cb edwardt O2 Sat, Carlin 76.0 % [facility] Comment:METER #: [id number] additional_comment: Cb edwardt 06/22/2025 3:56 PM EST 06/22/2025 4:00 PM EST us Generic External Data Provider LAB BLOOD ORDERAB LES Final Result [facility] [address] [place] [phone] * High Sensitivity Troponin I (06/22/2025 3:51 PM EST) [facility] TROPONIN I HIGH SENSITIVITY <2.7 <3.5 - 35.0 ng/L [facility] Comment:The Goldman high sens itivity Troponin-I results should beused in conjunction with other diagnostic information suchas ECG, clinical observations and information, and patientsymptoms to aid in the diagnosis of IA. 06/22/2025 3:51 PM EST 06/22/2025 3:54 PM EST Generic External Data Provider LAB BLOOD ORDERAB LES Final Result Performing Organization Address [facility] Co de Phone Number [facility] [address] [place] [phone] * Influenza A B2 ID NOW (Bocom) (06/22/2025 3:28 PM EST) [facility] IDNOW SERIAL# [id number] [facility] Influenza A Negative Negative [facility] Influenza B2 Negative Negative [facility] Influenza A B2 Note See Note [facility] Comment:The Goldman ID NOW In fluenza A B2 test is used for thequalitative detection of influenza A and B from patientswith signs and symptoms of respiratory infection.Negative results do not preclude influenza virus infectionand should not be used as the sole basis for diagnosis,treatment or other patient management decisions.There is a risk of false negative results due to thepresence of variants in the viral targets of the assay, lowlevels of virus in the specimen and co- infection withRespiratory Syncytial Virus. 06/22/2025 3:28 PM EST 06/22/2025 3:31 PM EST Generic External Data Provider LAB MICROBIOLOGY - GENERAL ORDERABLES Final Result Performing Organization Address [facility] Co de Phone Number [facility] [address] [place] [phone] * COVID-19 ID NOW (GOLDMAN) (06/22/2025 3:28 PM EST) Pathologist [facility] IDNOW SERIAL# [id number] [facility] COVID-19 TEST Negative Negative [facility] COVID-19 NOTE See Note [facility] Comment: Results are for the identification of SARS-CoV2 RNA. TheSARS-CoV2 RNA is generally detectable in respiratory samplesduring the acute phase of infection. Positive results areindicative of the presence of SARS-CoV-2 RNA; clinicalcorrelation with patient history and other diagnosticinformation is necessary to determine patient infectionstatus. Positive results do not rule out bacterial infectionor co- infection with other viruses.Testing facilities within the [facility] and [facility] are required to report all positive results tothe appropriate public health authorities.Negative results should be treated as presumptive and, ifinconsistent with clinical signs and symptoms or necessaryfor patient management, should be tested with differentauthorized or cleared molecular tests. Negative results donot preclude SARS-CoV2 RNA infection and should not be usedas the sole basis for patient management decisions. Negativeresults should be considered in the context of a patient'srecent exposures, history and the presence of clinical signsand symptoms consistent with COVID-19.This test has been authorized by the FDA under an EmergencyUse Authorization (EUA) for use by authorized laboratories.Testing performed on the Bocom ID NOW utilizing NAAT. 06/22/2025 3:28 PM EST 06/22/2025 3:31 PM EST I Do Venues External Data Provider LAB MOLECULAR AMAIRANI GNOSTICS ORDERABLES Final Result [facility] [address] [place] [phone] * (ABNORMAL) Beta-Hydroxybutyrate (06/22/2025 3:28 PM EST) Beta-Hydroxybu tyrate 1.47(H) 0.02 - 0.27 mmol/L [facility] 06/22/2025 3:28 PM EST 06/22/2025 3:31 PM EST I Do Venues External Data Provider LAB BLOOD ORDERAB LES Final Result [facility] [address] [place], [place] [phone] * (ABNORMAL) CBC auto differential (06/22/2025 3:28 PM EST) White Blood Count 7.7 4.8 - 10.8 X10*3/uL [facility] Red Blood Count 4.85 4.60 - 5.80 X10*6/uL [facility] Hemoglobin 12.5(L) 14.0 - 18.0 g/dl [facility] Hematocrit 38.3(L) 42.0 - 52.0 % [facility] Mean Corpuscular Volume 79.0(L) 80.0 - 98.0 fL [facility] Mean Corpuscular Hemoglobin 25.8(L) 27.0 - 33.0 pg [facility] Mean Corpuscular HGB Conc 32.6 31.0 - 36.0 g/dl [facility] Red Cell Distribution Width 13.9 11.0 - 16.0 % [facility] Platelet Count 302 160 - 400 X10*3/uL [facility] Mean Platelet Volume 9.4 9.4 - 12.4 fL [facility] Neutrophils Percent Auto 71.8 45 - 73 % [facility] Imm Gran Pct Auto 0.1 0.0 - 0.4 % [facility] Lymphocytes Percent Auto 21.3 20 - 40 % [facility] Monocytes Percent Auto 5.5 2 - 11 % [facility] Eosinophils Percent Auto 0.8 0 - 4 % [facility] Basophils Percent Auto 0.5 0 - 2 % [facility] NRBC Pct Auto 0.0 0.0 - 0.2 /100WBC [facility] Neutrophils Absolute Auto 5.5 2.0 - 8.3 x10*3/uL [facility] Imm Gran Abs Auto 0.01 0.00 - 0.03 X10*3/uL [facility] Lymphocytes Absolute Auto 1.6 1.2 - 4.9 X10*3/uL [facility] Monocytes Absolute Auto 0.4 0.1 - 1.2 X10*3/uL [facility] Eosinophils Absolute Auto 0.1 0.0 - 0.4 X10*3/uL [facility] Basophils Absolute Auto 0.0 0.0 - 0.2 X10*3/uL [facility] NRBC Abs Auto 0.000 0.0 - 0.012 X10*3/uL [facility] 06/22/2025 3:28 PM EST 06/22/2025 3:31 PM EST us Generic External Data Provider LAB BLOOD ORDERAB LES Final Result [facility] [address] [place] [phone] * (ABNORMAL) Comprehensive Metabolic Panel (06/22/2025 3:28 PM EST) Sodium 134(L) 135 - 145 mmol/L [facility] Potassium 4.2 3.3 - 5.1 mmol/L [facility] Comment:Slight Hemolysis.Int erpret result with caution. Chloride 102 96 - 108 mmol/L [facility] Carbon Dioxide 20(L) 22 - 29 mmol/L [facility] Anion Gap 16 12 - 20 [facility] Urea Nitrogen (BUN) 20(H) 9 - 16 mg/dL [facility] Creatinine, Serum 0.65 0.5 - 1.4 mg/dL [facility] Creatinine Clr Calc Pharmacy 150.1 [facility] Comment:eGFR (calculated fro m the MDRD study equation) and eCrCl(calculated from the Cockcroft-Gault equation) are based ondifferent parameters and may not yield comparable results.If eCrCl result is absurd, please check patient'sheight/weight. Estimated Glomerular Filt Rate >60 [facility] Comment:Chronic Kidney Disea se: Estimated GFR < 60 mL/min/1.54q1Hwaywn Kidney Disease: Estimated GFR < 15 mL/min/1.73m2 Glucose 237(H) 60 - 115 mg/dL [facility] Calcium 9.3 8.4 - 10.2 mg/dL [facility] Bilirubin, Total 0.7 0.0 - 1.0 mg/dL [facility] Aspartate Amino Transferase 66(H) 5 - 37 U/L [facility] Comment:Slight Hemolysis.Int erpret result with caution. Alanine Aminotransferase 31 0 - 40 U/L [facility] Total Protein 7.3 6.5 - 8.0 g/dL [facility] Albumin Level 4.3 3.5 - 5.0 g/dL [facility] Alkaline Phosphatase 95 39 - 117 U/L [facility] 06/22/2025 3:28 PM EST 06/22/2025 3:31 PM EST Generic External Data Provider LAB BLOOD ORDERAB LES Final Result Performing Organization Address [facility] Co de Phone Number [facility] [address] [place] [phone] * (ABNORMAL) Glucose, Whole Blood (06/22/2025 3:15 PM EST) Glucose, Whole Blood 237(H) 60 - 115 mg/dL [facility] Comment:METER #: [id number] 06/22/2025 3:15 PM EST 06/22/2025 3:23 PM EST Generic External Data Provider LAB BLOOD ORDERAB LES Final Result Performing Organization Address [facility] de Phone Number [facility] [address] [place] [phone] * XR Thoracic Spine 2 Views (05/11/2025 9:53 PM EDT) Anatomical Region Laterality Modality Spine, T-spine Radiographic Sheri ging 05/11/2025 9:53 PM EDT Narrative 05/11/2025 9:55 PM EDT [address] [address] XRay Report Signed Patient: Bradford Torres MR#: [id number] : 1995 Acct:[id number] Age/Sex: 30 / M ADM Date: 05/11/25 Loc: ONEYDA.ED Attending Dr: Ordering Physician: Gema Wolff DO Date of Service: 05/11/25 Procedure(s): XR thoracic spine 2V Accession Number(s): [id number] cc: Gema Wolff DO; Sahil Chen MANAGER MARKETING Reason for Exam: back pain CLINICAL HISTORY: back pain 2 views thoracic spine Comparison: X-rays of the thoracic spine from 05/07/2024 Findings: Lateral imaging includes a swimmer's view imaged. No significant change of the imaged vertebral heights or alignments. Cervicothoracic junction is obscured. Straightening of the imaged cervical lordosis in the [id number]-[id number]-hsfw. No consolidation of the imaged lungs. IMPRESSION: 1. Negative x-rays of the thoracic spine, without significant change compared to 1 year prior 2. Straightening of the imaged cervical lordosis. This document has been electronically signed by: Perry Ferrera MD on 05/11/2025 21:53:59 Dictated By: Perry Ferrera MD Signed By: <Electronically signed by Perry Ferrera MD in OV> 05/11/252154 DD/ 52 TD/TT: 05/11/252152 Gaming Pit Boss: Procedure Note Donotuseinterpreter, Image - 05/11/2025 [facility] [address] [place] [address] XRay Report Signed Patient: Bradford Torres JMR#: [id number] : 1995Acct:[id number] Age/Sex: 30 / MADM Date: 05/11/25 Loc: ONEYDA.ED Attending Dr: Ordering Physician: Gema Wolff DO Date of Service: 05/11/25 Procedure(s): XR thoracic spine 2V Accession Number(s): [id number] cc: Gema Wolff DO; Sahil Chen MANAGER MARKETING Reason for Exam: back pain CLINICAL HISTORY: back pain 2 views thoracic spine Comparison: X-rays of the thoracic spine from 05/07/2024 Findings: Lateral imaging includes a swimmer's view imaged. No significant change of the imaged vertebral heights or alignments. Cervicothoracic junction is obscured. Straightening of the imaged cervical lordosis in the xijiz-su-noyk. No consolidation of the imaged lungs. IMPRESSION: 1. Negative x-rays of the thoracic spine, without significant change compared to 1 year prior 2. Straightening of the imaged cervical lordosis. This document has been electronically signed by: Perry Ferrera MD on 05/11/2025 21:53:59 Dictated By: Perry Ferrera MD Signed By: <Electronically signed by Perry Ferrera MD in OV> 05/11/252154 DD/ 52 TD/TT: 05/11/252152 Gaming Pit Boss: [facility] External Provider IMG XR PROCEDURES Edited Result - Final * XR Chest 2 Views (05/11/2025 9:52 PM EDT) Anatomical Region Laterality Modality Chest Radiographic Sheri ging 05/11/2025 9:52 PM EDT Narrative 05/11/2025 9:54 PM EDT [place] [address] XRay Report Signed Patient: Bradford Torres MR#: [id number] : 1995 Acct:[id number] Age/Sex: 30 / M ADM Date: 05/11/25 Loc: .ED Attending Dr: Ordering Physician: Gema Wolff DO Date of Service: 05/11/25 Procedure(s): XR chest 2V Accession Number(s): [id number] cc: Gema Wolff DO; Sahil Chen NP [...] in OV> 05/11/252152 DD/ 51 TD/TT: 05/11/252151 Gaming Pit Boss: Procedure Note Donotuseinterpreter, Image - 05/11/[address] [address] XRay Report Signed Patient: Bradford Torres JMR#: [id number] : 1995Acct:[id number] Age/Sex: Date: 05/11/25 Loc: .ED Attending Dr: Ordering Physician: Gema Wolff DO Date of Service: 05/11/25 Procedure(s): XR chest 2V Accession Number(s): [id number] cc: Gema Wolff DO; Sahil Chen NP [...] in OV> 05/11/252152 DD/ 51 TD/TT: 05/11/252151 Gaming Pit Boss: us [facility] External Provider IMG XR PROCEDURES Edited Result - Final * MR Lumbar Spine w/o Contrast (04/18/2025 5:56 PM EDT) Anatomical Region Laterality Modality Spine, L-spine Magnetic Resonan ce 04/18/2025 5:56 PM EDT Narrative 04/21/2025 12:30 PM EDT [address] [address] Magnetic Resonance Report Signed Patient: Bradford Torres MR#: [id number] : 1995 Acct:[id number] Age/Sex: 30 / M ADM Date: 04/18/25 Loc: HO.MRI Attending Dr: Sahil Chen MANAGER MARKETING Ordering Physician: Sahil Chen NP Date of Service: 04/18/25 Procedure(s): MR lumbar spine wo con Accession Number(s): [id number] cc: Sahil Chen MANAGER MARKETING EXAMINATION: MR LUMBAR SPINE WITHOUT CONTRAST CLINICAL [...] 04/21/25 1227 DD/ 175 TD/TT: 04/18/25 191 Gaming Pit Boss: Procedure Note Donotuseinterpreter, Image - 04/21/2025 [place] [address] Magnetic Resonance Report Signed Patient: Bradford Torres JMR#: [id number] : 1995Acct:[id number] Age/Sex: M Date: 04/18/25 Loc: HO.MRI Attending Dr: Sahil Chen MANAGER MARKETING Ordering Physician: Sahil Chen NP Date of Service: 04/18/25 Procedure(s): MR lumbar spine wo con Accession Number(s): [id number] cc: Sahil Chen MANAGER MARKETING EXAMINATION: MR LUMBAR SPINE WITHOUT CONTRAST CLINICAL [...] OV> 04/21/25 1227 DD/ 55 TD/TT: 04/18/251916 Gaming Pit Boss: [facility] TUBE BENDER HAND IMG MRI PROCEDURES Edited Result - Final * (ABNORMAL) POCT HGB A1C (03/19/2025 10:50 AM EDT) Pathologist [facility] Hemoglobin A1C 8.3(A) 4.0 - 5.7 % QC Media Lot # [id number] Lot# Expiration Date Blood 03/19/2025 10:5 0 AM EDT [facility] POINT OF CARE TEST ENTER/ EDIT ORDERABLES Final Result * Hepatitis C Antibody with Reflex to HCV, RNA, Quantitative, Real-Time PCR (11/15/2023 1:28 PM EDT) Pathologist [facility] Hepatitis C Antibody Nonreactive Nonreactive [facility] Comment:Antibodies to HCV no t detected; does not exclude early acuteHCV infection. Blood Venous blood specimen / Unknown 11/15/2023 1:28 PM EDT 11/15/2023 4:04 PM EDT Amna Urrutia CHECK CLERK LAB BLOOD ORDERABLES Final Resu lt [facility] [address] [place] [phone] * Lipid Panel, Standard (11/15/2023 1:28 PM EDT) Pathologist [facility] Triglycerides 56 <150 mg/dL [facility] Comment:Desirable Triglyceri de: less than 150 mg/dLBorderline High Triglyceride 150-199 mg/dLHigh Triglyceride: 200-499 mg/dLVery High Triglyceride: greater than or equal to 5OO mg/dL Cholesterol 145 <200 mg/dL [facility] Comment:Desirable Cholestero l: less than 200 mg/dLBorderline High Cholesterol: 200-239 mg/dLHigh Cholesterol: greater than 239 mg/dL LDL Cholesterol Calculated 84 <100 mg/dL [facility] Comment:Desirable LDL: less than 100 mg/dLNear Optimal/Above Optimal LDL: 110- 129 mg/dLBorderline High LDL: 130-159 mg/dLHigh LDL: 160-189 mg/dLVery High LDL: greater than or equal to 190 mg/dL HDL Cholesterol 50 >40 mg/dL [facility] Comment:Desirable HDL: great er than 40 mg/dL Note: This HDL assay may give artificially low results in patients with liver disease. Blood Venous blood specimen / Unknown 11/15/2023 1:28 PM EDT 11/15/2023 4:04 PM EDT us Amna Urrutia CHECK CLERK LAB BLOOD ORDERABLES Final Resu lt [facility] [address] [place] [phone] * HIV-1 RNA, Quantitative, Real-Time PCR with Reflex to Genotype (RTI, PI, Integrase) (01/06/2023 10:25 AM EDT) HIV 1 RNA, QN PCR NOT DETECTED copies/mL [facility], HIV 1 RNA, QN PCR NOT DETECTED Log copies/mL [facility], Comment: REFERENCE RANGE: NOT DETECTED copies/mL NOT DETECTED Log copies/mL This test was performed using Real-Time Polymerase Chain Reaction. Reportable range is 20 to 10,000,000 copies/mL (1.30-7.00 Log copies/mL). 01/06/2023 10:2 5 AM EDT 01/06/2023 10:26 AM EDT Narrative [facility] - 01/11/2023 1:53 AM EDT FASTING:NO SPECIMEN COLLECTED AT PROVIDER OFFICE. FASTING: NO Amna Urrutia CHECK CLERK LAB BLOOD ORDERABLES Final Resu lt [facility] [address], [place] [address] [facility], [address] [place] [address] from Last 3 Months or Most Recently Relevant to Health Maintenance Insurance [facility] STANDARD Care Teams Wire Insulator Relationship Specialty Start Date End Date Sahil Chen CNP PCP - General Family Medicine 10/09/24 Chris Pack Jr Fish Bait Processing SupervisorOptical Instrument Specialist 09/04/24
--- OUTSIDE RECORDS SUMMARY | 2025-06-22 16:54 | XMS_ITS | Encounter Summary ---
Author Organization [employer] Address [address] 7[address] [place] [address] Care Team Providers Care Heating Engineer Name Role Phone Sahil Chen CNP Primary Care Provider [phone] Reason for Visit * Reason Onset Date Comments Nurse Triage 03/17/2025 Encounter Details Date Type Department Care Team (Late st Contact Info) Description 03/17/2025 Telephone [facility] MEDICINE [address] [place] [address] Sahil Chen CNP [address] [place] [address] Nurse Triage Social History Tobacco Use Types [...] and testicular pain. Pt was seen in [facility] ED 03/16/25report is on the [...] with good effect. ASK apt with PCP [place] @ 1000am. 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 Contact pt at [phone] documented in this encounter Plan of Treatment Not on file documented as of this encounter Visit Diagnoses Not on filedocumented in this encounter Additional Health Concerns Assessment Noted Time PHQ-9 Depression Total Score: 19 11/27/ 025 3:09 PM EDT documented as of this encounter Care Teams Heating Engineer Relationship Specialty Start Date End Date Sahil Chen CNP PCP - General Family Medicine 10/09/24 Chris Pack Jr Cell GeneticistHeavy Cleaner 09/04/24 documented as of this encounter
--- OUTSIDE RECORDS SUMMARY | 2025-06-22 16:54 | XMS_ITS | Encounter Summary ---
Author Organization [employer] Address [address] 7[address] [place] [address] Care Team Providers Care Hand Polisher Name Role Phone Sahil Chen CNP Primary Care Provider [phone] Reason for Visit * Reason Comments Med Refill Encounter Details Date Type Department Care Team (Late st Contact Info) Description 02/17/2025 Refill [facility] MEDICINE [address] [place] [address] Sahil Chen CNP [address] [place], [place] [id number] Type 1 diabetes mellitus with hyperglycemia (CMS/[facility]) Social History Tobacco Use Types Packs/Day [...] documented as of this encounter Care Teams Hand Polisher Relationship Specialty Start Date End Date Sahil Chen CNP PCP - General Family Medicine 10/09/24 Chris Pack Jr Network Control SupervisorCello Teacher 09/04/24 documented as of this encounter
--- OUTSIDE RECORDS SUMMARY | 2025-06-22 16:54 | XMS_ITS | Encounter Summary ---
Author Organization [facility] [employer] Address [address] [place] [address] Phone Care Team Providers Care School Photographs Detailer Name Role Phone Santos Mueller MD Primary Care Provider [phone] Encounter Details Date Type Department Care Team (Late st Contact Info) Description 08/05/2024 Documentation Only [facility], [address] [place] [address] Jessica Sprague [address] [place] [address] Social History Tobacco Use Types [...] on filedocumented in this encounter Care Teams School Photographs Detailer Relationship Specialty Start Date End Date Santos Mueller MD [address] [place] [address] PCP - General Emergency Medicine 07/28/23 documented as of this encounter
--- OUTSIDE RECORDS SUMMARY | 2025-06-22 16:54 | XMS_ITS | Encounter Summary ---
Author Organization [employer] Address [address] 7t [place] [address] Care Team Providers Care Glove Presser Name Role Phone Amna Urrutia Primary Care Provider [phone], Everett ROSE Primary Care Provider [phone] Sahil Chen CNP Primary Care Provider [phone] Reason for Visit * Reason Onset Date Comments Med Refill 07/28/2023 Encounter Details Date Type Department Care Team (Late st Contact Info) Description 07/28/2023 Refill [facility] MEDICINE [address] [place] [address] Denice Ruibn MD [address] [place] [address] Social History Tobacco Use Types Packs/Day Years [...] documented as of this encounter Care Teams Glove Presser Relationship Specialty Start Date End Date Amna Urrutia FNP [address] [place] [address] PCP - General Family Medicine 01/01/23 04/18/24 Everett Angulo MD [address] [place] [address] PCP - General Internal Medicine 04/19/24 10/08/24 Sahil Chen CNP [address] [place] [address] PCP - General Family Medicine 10/09/24 Chris Pack Jr Aerospace Engineer Officer ArmamentStone Hand 09/04/24 documented as of this encounter
--- OUTSIDE RECORDS SUMMARY | 2025-06-22 16:54 | XMS_ITS | Clinical Summary ---
Author Organization [address] [facility] Address [address] [place] [address] Phone Care Team Providers Care Heddler Name Role Phone Sahil Chen NP Primary Care Provider [phone] Allergies Active Allergy Reactions Criticality Noted Date Comments Diphenhydramine Hcl 03/19/2025 Haloperidol Shortness of breath,Unknown High 10/18/2022 Jaw locks up and has tremors Other Reaction(s): Difficulty Swallowing, dystonic reaction Medications No known medications Social History Tobacco Use Types Packs/Day Years [...] 2:30 PM EST Office Visit Orthopedic Surgery [facility] [address] [address] Devan Alonso, FRANK [address] [place] [address] Health Maintenance Due Date Last Done Comments [...] Urine Albumin-Creatinine Ratio (uACR) 01/01/2025 COVID-19 Vaccine (2023-2 5 season) 2025 Influenza Vaccine (#1) 2025 06/08/2016 Diabetes: Blood Sugar Contro l Test (HGBA1C) 09/19/2025 03/19/2025 Diabetes: Annual GFR (Glomerular Filtration Rate) 03/16/2026 06/22/2025, 03/16/2025 Cholesterol Screening (Lipid Panel) 11/14/2028 11/15/2023 [...] topic Insurance MEDICAID - [place] Care Teams Heddler Relationship Specialty Start Date End Date Sahil Chen NP [address] [place] [address] PCP - General Family Medicine 01/01/25
--- OUTSIDE RECORDS SUMMARY | 2025-06-22 16:54 | XMS_ITS | Encounter Summary ---
Author Organization [facility] Address [address] [place] [address] Phone Care Team Providers Care Supervisor Cutting And Sewing Room Name Role Phone Santos Mueller MD Primary Care Provider [phone] Encounter Details Date Type Department Care Team (Late st Contact Info) Description 08/05/2024 Documentation Only [facility], [address] [address] Jessica Sprague [address] [place] [address] Social History Tobacco Use Types [...] on filedocumented in this encounter Care Teams Supervisor Cutting And Sewing Room Relationship Specialty Start Date End Date Santos Mueller MD [address] [place] [address] PCP - General Emergency Medicine 07/28/23 documented as of this encounter
--- OUTSIDE RECORDS SUMMARY | 2025-06-22 16:54 | XMS_ITS | Clinical Summary ---
Author Organization [facility] Address [address] [place] [address] Phone Care Team Providers Care Multi Sensor Operator Name Role Phone Sahil Chen WARP PREPARER Primary Care Provider [phone] Allergies Active Allergy Reactions Criticality Noted Date Comments Diphenhydramine Hcl 04/02/2025 Haloperidol 04/02/2025 Medications No known medications Encounters Date Type Department Care Team Description 05/12/2025 3:03 PM EDT - 05/12/2025 5:59 PM EDT Emergency [facility] Emergency [address] [place] [address] Discharge Disposition: Left Without Being Seen 04/02/2025 1:57 PM EDT - 04/02/2025 9:38 PM EDT Emergency [facility] Emergency [address] [place] [address] Kenneth Shane MD Discharge Disposition: Left Against [...] 04/02/2025 2:39 PM EDT BASIC METABOLIC PANEL (BMP) STAT 04/02/2025 2:39 PM EDT CBC AND DIFFERENTIAL STAT 04/02/2025 2:39 PM EDT from Last 3 Months Results * (ABNORMAL) POCT Glucose (04/02/2025 7:41 PM EDT) Glucose, POCT 54(L) 70 - 100 mg/dL [facility] 04/02/2025 7:41 PM EDT 04/02/2025 7:55 PM EDT us Kenneth Shane MD POINT OF CARE TEST ORDERA BLES Final Result Performing Organization Address City/[facility]/ZIP Co de Phone Number [address] [address] * ECG 12-LEAD (04/02/2025 3:03 PM EDT) Ventricular Rate EKG/MIN 81 BPM [facility] Atrial Rate 81 BPM [facility] SC Interval 142 ms [facility] QRS Duration 102 ms [facility] QT Interval 376 ms [facility] QTC Interval 436 ms [facility] R Wave [place] -75 degrees [facility] T Wave [place] 13 degrees [facility] 04/02/2025 3:03 PM EDT [...] 2:39 PM EDT) ETHANOL <10 <10 mg/dL [facility] Blood 04/02/2025 2:39 PM EDT 04/02/2025 2:44 PM EDT us Kenneth Shane MD LAB BLOOD BKR ORDERABLES Final Result Performing Organization Address City/[facility]/ZIP Co de Phone Number [address] [address] * LFTs (hepatic panel) (04/02/2025 2:39 PM EDT) ALKALINE PHOSPHATASE 82 39 - 117 U/L [facility] TOTAL BILIRUBIN 0.8 0.0 - 1.2 mg/dL [facility] DIRECT BILIRUBIN 0.2 0.0 - 0.2 mg/dL [facility] Bilirubin (Indirect) 0.6 0 - 1.5 mg/dL [facility] AST 14 0 - 37 U/L [facility] ALT 12 0 - 40 U/L [facility] TOTAL PROTEIN 7.4 6.5 - 8.0 g/dL [facility] ALBUMIN 4.2 3.9 - 4.8 g/dL [facility] GLOBULIN 3.2 1 - 4.8 g/dL [facility] A/G Ratio 1.31 1.00 - 4.80 RATIO [facility] Blood 04/02/2025 2:39 PM EDT 04/02/2025 2:44 PM EDT us Kenneth Shane MD LAB BLOOD BKR ORDERABLES Final Result Performing Organization Address [facility]/ZIP Co de Phone Number [address] [address] * (ABNORMAL) CBC and differential (04/02/2025 2:39 PM EDT) WBC 8.77 4.00 - 11.00 K/uL [facility] RBC 5.08 4.50 - 5.90 M/uL [facility] HGB 13.2(L) 13.5 - 17.5 g/dL [facility] HCT 41.2 41.0 - 53.0 % [facility] PLT 290 150 - 450 K/uL [facility] MCV 81.1 80.0 - 100.0 fL [facility] MCH 26.0(L) 27.0 - 31.0 pg [facility] MCHC 32.0 32.0 - 36.0 g/dL [facility] RDW 14.1 11.5 - 14.5 % [facility] MPV 9.8 8.4 - 12.0 fL [facility] NRBC 0.00 0.00 /100 WBCs [facility] ABSOLUTE NRBC 0.00 0.00 K/uL [facility] DIFF METHOD Auto [facility] NEUTS 65.9 48.0 - 76.0 % [facility] LYMPHS 25.3 18.0 - 41.0 % [facility] MONOS 7.1 4.0 - 11.0 % [facility] EOS 0.9 0.0 - 5.0 % [facility] BASOS 0.6 0.0 - 1.5 % [facility] Granulocytes, immature (%) 0.2 0.0 - 0.9 % [facility] ABSOLUTE NEUTS 5.78 1.92 - 7.60 K/uL [facility] ABSOLUTE LYMPHS 2.22 0.72 - 4.10 K/uL [facility] ABSOLUTE MONOS 0.62 0.16 - 1.10 K/uL [facility] ABSOLUTE EOS 0.08 0.00 - 0.50 K/uL [facility] ABSOLUTE BASOS 0.05 0.00 - 0.15 K/uL [facility] Granulocytes, immature 0.02 0.00 - 0.09 K/uL [facility] Blood 04/02/2025 2:39 PM EDT 04/02/2025 2:44 PM EDT us Kenneth Shane MD LAB BLOOD BKR ORDERABLES Final Result [facility] [address] [place] [address] * (ABNORMAL) Phosphorus (04/02/2025 2:39 PM EDT) PHOSPHORUS 1.3(LL) 2.7 - 4.5 mg/dL [facility] Comment: Critical value: Results called to and read back by: SULMA Phillips ED [id number] 04/02/25 BY [id number] Blood 04/02/2025 2:39 PM EDT 04/02/2025 2:44 PM EDT us Kenneth Shane MD LAB BLOOD BKR ORDERABLES Final Result Performing Organization Address [facility] de Phone Number [address] [address] * Magnesium (04/02/2025 2:39 PM EDT) MAGNESIUM 2.1 1.6 - 2.6 mg/dL [facility] Blood 04/02/2025 2:39 PM EDT 04/02/2025 2:44 PM EDT us Kenneth Shane MD LAB BLOOD BKR ORDERABLES Final Result Performing Organization Address [facility] Phone Number [address] [address] * (ABNORMAL) Lipase (04/02/2025 2:39 PM EDT) LIPASE 8(L) 16 - 63 U/L [facility] Blood 04/02/2025 2:39 PM EDT 04/02/2025 2:44 PM EDT us Kenneth Shane MD LAB BLOOD BKR ORDERABLES Final Result Performing Organization Address [facility] Co de Phone Number [address] [address] * (ABNORMAL) Acetaminophen level (04/02/2025 2:39 PM EDT) ACETAMINOPHEN <5.0(L) 15.0 - 30.0 ug/mL [facility] Blood 04/02/2025 2:39 PM EDT 04/02/2025 2:44 PM EDT us Kenneth Shane MD LAB BLOOD BKR ORDERABLES Final Result Performing Organization Address [facility]/ZIP Co de Phone Number [address] [address] * (ABNORMAL) Basic metabolic panel (04/02/2025 2:39 PM EDT) SODIUM 137 133 - 146 mmol/L [facility] CHLORIDE 101 96 - 108 mmol/L [facility] POTASSIUM 4.0 3.3 - 5.1 mmol/L [facility] CO2 23 21 - 35 mmol/L [facility] BUN 18 6 - 19 mg/dL [facility] CREATININE 0.80 0.5 - 1.5 mg/dL [facility] GLUCOSE 112(H) 70 - 99 mg/dL [facility] CALCIUM 9.6 8.4 - 10.3 mg/dL [facility] EGFR >120 >59 mL/min/1.7 3m2 [facility] Comment:Estimated glomerular filtration rate calculated using the CKD-EPI refit equation. ANION GAP 17 10 - 20 mmol/L [facility] Blood 04/02/2025 2:39 PM EDT 04/02/2025 2:44 PM EDT Kenneth Shane MD LAB BLOOD BKR ORDERABLES Final Result Performing Organization Address [facility] Co de Phone Number [address] [address] from Last 3 Months Insurance [employer] [place] Care Teams Multi Sensor Operator Relationship Specialty Start Date End Date Sahil Chen NP [address] [place] [address] PCP - General Nurse Practitioner 04/02/25 Additional Source Comments The information contained in this document represents components of the legal health record. It is not the complete legal health record.[facility]
--- OUTSIDE RECORDS SUMMARY | 2025-06-22 16:54 | XMS_ITS | Encounter Summary ---
Author Organization [employer] Address [address] [facility] 7t [place] [address] Care Team Providers Care Compliance Reviewer Name Role Phone Amna Urrutia Primary Care Provider [phone] Name, Everett ROSE Primary Care Provider [phone] Sahil Chen CNP Primary Care Provider [phone] Reason for Visit * Reason Onset Date Comments Med Refill 07/17/2023 Encounter Details Date Type Department Care Team (Late st Contact Info) Description 07/17/2023 Refill [facility] MEDICINE [address] [place] [address] Amna Urrutia FNP [address] [place] [address] Social History Tobacco Use Types Packs/Day Years [...] documented as of this encounter Care Teams Compliance Reviewer Relationship Specialty Start Date End Date Amna Urrutia FNP [address] [place] [address] PCP - General Family Medicine 01/01/23 04/18/24 Everett Angulo MD [address] [place] [address] PCP - General Internal Medicine 04/19/24 10/08/24 Sahil Chen CNP [address] [place] [address] PCP - General Family Medicine 10/09/24 Chris Pack Jr Ship LoaderBenefits Representative 09/04/24 documented as of this encounter
--- OUTSIDE RECORDS SUMMARY | 2025-06-22 16:54 | XMS_ITS | Encounter Summary ---
Author Organization [employer] Address [address] [facility] [address] [place] [address] Care Team Providers Care Pharmacy Picking Tech Name Role Phone Gustavo Sahil SERA Primary Care Provider [phone] Encounter Details Date Type Department Care Team (Late st Contact Info) Description 06/22/2025 Orders Only GENERIC EXTERNAL DATA [...] on file documented as of this encounter Procedures Procedure Name Priority Date/Time Associated Diagnosis Comments VENOUS BLOOD GAS Routine 06/22/2025 3:56 PM EST HIGH SENSITIVITY TROPONIN I Routine 06/22/2025 3:51 PM EST INFLUENZA A B2 ID NOW ([place]) Routine 06/22/2025 3:28 PM EST COVID-19 ID NOW ([employer]) Routine 06/22/2025 3:28 PM EST BETA-HYDROXYBUTYRATE Routine 06/22/2025 3:28 PM EST CBC WITH AUTO DIFFERENTIAL Routine 06/22/2025 3:28 PM EST COMPREHENSIVE METABOLIC PANEL Routine 06/22/2025 3:28 PM EST GLUCOSE, WHOLE BLOOD Routine 06/22/2025 3:15 PM EST documented in this encounter Results * (ABNORMAL) VENOUS BLOOD GAS (06/22/2025 3:56 PM EST) VBG pH 7.51(H) 7.32 - 7.43 [facility] Comment:METER #: [id number] additional_comment: Cb edwardt VBG PCO2 30 mmHg [facility] Comment:METER #: [id number] additional_comment: Cb edwardt VBG PO2 45 mmHg [facility] Comment:METER #: [id number] additional_comment: Cb edwardt VBG Base Excess 2.3 mmol/L [facility] Comment:METER #: [id number] additional_comment: Cb edwardt VBG HCO3 24 22 - 26 mmol/L [facility] Comment:METER #: [id number] additional_comment: Cb edwardt O2 Sat, Carlin 76.0 % [facility] Comment:METER #: [id number] additional_comment: Cb edwardt 06/22/2025 3:56 PM EST 06/22/2025 4:00 PM EST us Generic External Data Provider LAB BLOOD ORDERAB LES Final Result Performing Organization Address [facility] Co de Phone Number [facility] [address] [place] [phone] * High Sensitivity Troponin I (06/22/2025 3:51 PM EST) TROPONIN I HIGH SENSITIVITY <2.7 <3.5 - 35.0 ng/L [facility] Comment:The Goldman high sens itivity Troponin-I results should beused in conjunction with other diagnostic information suchas ECG, clinical observations and information, and patientsymptoms to aid in the diagnosis of [place]. 06/22/2025 3:51 PM EST 06/22/2025 3:54 PM EST us Generic External Data Provider LAB BLOOD ORDERAB LES Final Result Performing Organization Address [facility] Co de Phone Number [facility] [address] [place] [phone] * (ABNORMAL) Beta-Hydroxybutyrate (06/22/2025 3:28 PM EST) Beta-Hydroxybu tyrate 1.47(H) 0.02 - 0.27 mmol/L [facility] 06/22/2025 3:28 PM EST 06/22/2025 3:31 PM EST Generic External Data Provider LAB BLOOD ORDERAB LES Final Result [facility] [address] [place], [place] [phone] * (ABNORMAL) Comprehensive Metabolic Panel (06/22/2025 3:28 PM EST) Sodium 134(L) 135 - 145 mmol/L [facility] Potassium 4.2 3.3 - 5.1 mmol/L [facility] Comment:Slight Hemolysis.Int erpret result with caution. Chloride 102 96 - 108 mmol/L [facility] Carbon Dioxide 20(L) 22 - 29 mmol/L [facility] Anion Gap 16 12 - 20 [facility] Urea Nitrogen (BUN) 20(H) 9 - 16 mg/dL [facility] Creatinine, Serum 0.65 0.5 - 1.4 mg/dL [facility] Creatinine Clr Calc Pharmacy 150.1 [facility] Comment:eGFR (calculated fro m the MDRD study equation) and eCrCl(calculated from the Cockcroft-Gault equation) are based ondifferent parameters and may not yield comparable results.If eCrCl result is absurd, please check patient'sheight/weight. Estimated Glomerular Filt Rate >60 [facility] Comment:Chronic Kidney Disea se: Estimated GFR < 60 mL/min/1.63x3Obckog Kidney Disease: Estimated GFR < 15 mL/min/1.73m2 Glucose 237(H) 60 - 115 mg/dL [facility] Calcium 9.3 8.4 - 10.2 mg/dL [facility] Bilirubin, Total 0.7 0.0 - 1.0 mg/dL [facility] Aspartate Amino Transferase 66(H) 5 - 37 U/L [facility] Comment:Slight Hemolysis.Int erpret result with caution. Alanine Aminotransferase 31 0 - 40 U/L [facility] Total Protein 7.3 6.5 - 8.0 g/dL [facility] Albumin Level 4.3 3.5 - 5.0 g/dL [facility] Alkaline Phosphatase 95 39 - 117 U/L [facility] 06/22/2025 3:28 PM EST 06/22/2025 3:31 PM EST Generic External Data Provider LAB BLOOD ORDERAB LES Final Result Performing Organization Address [facility] Co de Phone Number [facility] [address] [place] [phone] * Influenza A B2 ID NOW (Goldman) (06/22/2025 3:28 PM EST) IDNOW SERIAL# [id number] [facility] Influenza A Negative Negative [facility] Influenza B2 Negative Negative [facility] Influenza A B2 Note See Note [facility] Comment:The Goldman ID NOW In fluenza [...] GENERAL ORDERABLES Final Result Performing Organization Address [facility] Co de Phone Number [facility] [address] [place] [phone] * COVID-19 ID NOW ([place]) (06/22/2025 3:28 PM EST) IDNOW SERIAL# [id number] [facility] COVID-19 TEST Negative Negative [facility] COVID-19 NOTE See Note [facility] Comment: Results are for the identification of SARS-CoV2 RNA. TheSARS-CoV2 RNA is generally detectable in respiratory samplesduring the acute phase of infection. Positive results areindicative of the presence of SARS-CoV-2 RNA; clinicalcorrelation with patient history and other diagnosticinformation is necessary to determine patient infectionstatus. Positive results do not rule out bacterial infectionor co- infection with other viruses.Testing facilities within the [place] and itsterritories are required to report all positive results [...] use by authorized laboratories.Testing performed on the Guarn[place] ID NOW utilizing NAAT. 06/22/2025 3:28 PM EST 06/22/2025 3:31 PM EST us Generic External Data Provider LAB MOLECULAR AMAIRANI GNOSTICS ORDERABLES Final Result [facility] [address] [place] [phone] * (ABNORMAL) CBC auto differential (06/22/2025 3:28 PM EST) White Blood Count 7.7 4.8 - 10.8 X10*3/uL [facility] Red Blood Count 4.85 4.60 - 5.80 X10*6/uL [facility] Hemoglobin 12.5(L) 14.0 - 18.0 g/dl [facility] Hematocrit 38.3(L) 42.0 - 52.0 % [facility] Mean Corpuscular Volume 79.0(L) 80.0 - 98.0 fL [facility] Mean Corpuscular Hemoglobin 25.8(L) 27.0 - 33.0 pg [facility] Mean Corpuscular HGB Conc 32.6 31.0 - 36.0 g/dl [facility] Red Cell Distribution Width 13.9 11.0 - 16.0 % [facility] Platelet Count 302 160 - 400 X10*3/uL [facility] Mean Platelet Volume 9.4 9.4 - 12.4 fL [facility] Neutrophils Percent Auto 71.8 45 - 73 % [facility] Imm Gran Pct Auto 0.1 0.0 - 0.4 % [facility] Lymphocytes Percent Auto 21.3 20 - 40 % [facility] Monocytes Percent Auto 5.5 2 - 11 % [facility] Eosinophils Percent Auto 0.8 0 - 4 % [facility] Basophils Percent Auto 0.5 0 - 2 % [facility] NRBC Pct Auto 0.0 0.0 - 0.2 /100WBC [facility] Neutrophils Absolute Auto 5.5 2.0 - 8.3 x10*3/uL [facility] Imm Gran Abs Auto 0.01 0.00 - 0.03 X10*3/uL [facility] Lymphocytes Absolute Auto 1.6 1.2 - 4.9 X10*3/uL [facility] Monocytes Absolute Auto 0.4 0.1 - 1.2 X10*3/uL [facility] Eosinophils Absolute Auto 0.1 0.0 - 0.4 X10*3/uL [facility] Basophils Absolute Auto 0.0 0.0 - 0.2 X10*3/uL [facility] NRBC Abs Auto 0.000 0.0 - 0.012 X10*3/uL [facility] 06/22/2025 3:28 PM EST 06/22/2025 3:31 PM EST us Generic External Data Provider LAB BLOOD ORDERAB LES Final Result [facility] [address] [place] [phone] * (ABNORMAL) Glucose, Whole Blood (06/22/2025 3:15 PM EST) Glucose, Whole Blood 237(H) 60 - 115 mg/dL [facility] Comment:METER #: [id number] 06/22/2025 3:15 PM EST 06/22/2025 3:23 PM EST us Generic External Data Provider LAB BLOOD ORDERAB LES Final Result Performing Organization Address City/State/[facility] Co de Phone Number [facility] [address] [place] [phone] documented in this encounter Visit Diagnoses Not on filedocumented in this encounter Additional Health Concerns Assessment Noted Time PHQ-9 Depression Total Score: 15 025 2:28 PM EDT documented as of this encounter Care Teams Pharmacy Picking Tech Relationship Specialty Start Date End Date Sahil Chen CNP PCP - General Family Medicine 10/09/24 Chris Pack Jr Electronics EngineerFish Agent 09/04/24 documented as of this encounter
--- OUTSIDE RECORDS SUMMARY | 2025-06-22 16:54 | XMS_ITS | Encounter Summary ---
Author Organization [employer] Address [address] [facility] 7t [place] [address] Care Team Providers Care Agricultural Aircraft Pilot Name Role Phone Amna Urrutia Primary Care Provider [phone] Name, Everett ROSE Primary Care Provider [phone] Sahil Chen CNP Primary Care Provider [phone] Reason for Visit * Reason Onset Date Comments Med Refill 07/28/2023 Encounter Details Date Type Department Care Team (Late st Contact Info) Description 07/28/2023 Refill [facility] MED[facility] [address] [place] [address] Amna Urrutia FNP [address] [place] [address] Social History Tobacco Use Types Packs/Day Years [...] documented as of this encounter Care Teams Agricultural Aircraft Pilot Relationship Specialty Start Date End Date Amna Urrutia FNP [address] [place] [address] PCP - General Family Medicine 01/01/23 04/18/24 Everett Angulo MD [address] [place] [address] PCP - General Internal Medicine 04/19/24 10/08/24 Sahil Chen CNP [address] [place] [address] PCP - General Family Medicine 10/09/24 Chris Pack Jr SynchronizerAnimal Sticker 09/04/24 documented as of this encounter
--- OUTSIDE RECORDS SUMMARY | 2025-06-22 16:54 | XMS_ITS | Encounter Summary ---
Author Organization [employer] Address [address] [facility] 7t [place] [address] Care Team Providers Care Development Rep Name Role Phone Amna Urrutia Primary Care Provider [phone] Adele, Everett ROSE Primary Care Provider [phone] Sahil Cehn CNP Primary Care Provider [phone] Reason for Visit * Reason Onset Date Comments Med Refill 07/17/2023 Encounter Details Date Type Department Care Team (Late st Contact Info) Description 07/17/2023 Refill [facility] MED[facility]INE [address] [place] [address] Sandra Leal MD [address] [place] [address] Social History Tobacco Use Types Packs/Day Years [...] documented as of this encounter Care Teams Development Rep Relationship Specialty Start Date End Date Amna Urrutia FNP [address] [place] [address] PCP - General Family Medicine 01/01/23 04/18/24 Everett Angulo MD [address] [place] [address] PCP - General Internal Medicine 04/19/24 10/08/24 Sahil Chen CNP [address] [place] [address] PCP - General Family Medicine 10/09/24 Chris Pack Jr Sight Effects SpecialistFloat Remover 09/04/24 documented as of this encounter
[2025-06-22] MEDS: Magnesium Hydrox/Alum Hydrox 30 ML ORAL.SUSP 15 ML PO (16:55)
== END 2025-06-22 20:45 | disposition home or self-care (01) ==
PROVIDERS: Physician Assistant Medical; Emergency Provider Emergency Medicine
DX: M54.9 Dorsalgia, unspecified (principal); M79.10 Myalgia, unspecified site; M54.2 Cervicalgia; R11.2 Nausea with vomiting, unspecified; R51.9 Headache, unspecified; M54.50 Low back pain, unspecified; E10.9 Type 1 diabetes mellitus without complications; Z79.4 Long term (current) use of insulin; Z79.899 Other long term (current) drug therapy; Z11.52 Encounter for screening for COVID-19
CPT/HCPCS: 36415; 70450; 71260; 72125; 74177; 80053; 82010; 82803; 82947; 84484; 85025; 87502; 87635; 96361; 96374; 96375; 99285; J1885; J2270; J2405; J2470; J3360; J7120; Q9967

== ENCOUNTER → 2025-06-22 16:27 | Outpatient (BNV) | payer MEDICAID, SELFPAY | PROVIDERS: Emergency Provider Emergency Medicine; Visit Provider Student in an Organized Health Care Education/Training Program | DX: R10.9 Unspecified abdominal pain (principal); R07.9 Chest pain, unspecified; M54.2 Cervicalgia; R51.9 Headache, unspecified; V19.9XXA Pedal cyclist (driver) (passenger) injured in unspecified traffic accident, initial encounter | CPT/HCPCS: 70450; 71260; 72125; 74177 ==

== ENCOUNTER 2025-08-15 15:45 | Emergency (ER) | payer MEDICAID, SELFPAY ==
--- NOTE | ~2025-08-15 | XR_ITS ---
CLINICAL HISTORY: back pain s p boxes falling on him 3 views lumbar spine Comparison: 05/07/2024 Findings: No fractures or dislocations. Normal vertebral body alignment. No significant arthritic change. Sacroiliac joints unremarkable. Impression: 1. Unremarkable lumbar spine This document has been electronically signed by: Jesus Rogers MD on 08/15/2025 18:42:34
--- NOTE | ~2025-08-15 | XR_ITS ---
CLINICAL HISTORY: back pain s p boxes falling on him 3 views thoracic spine Comparison: CR - XR THORACIC SPINE 2V - 05/11/2025 09:10 PM EDT Findings: No fractures or dislocations. Normal vertebral body alignment. No significant arthritic change. Impression: 1. Unremarkable thoracic spine. This document has been electronically signed by: Jesus Rogers MD on 08/15/2025 18:48:14
[2025-08-15 16:26] VITALS: BP 118/63; PULSE 108; RESP 20; TEMP 37.2; O2SAT 100; BMI 19.0
--- OUTSIDE RECORDS SUMMARY | 2025-08-15 19:43 | XMS_ITS | Encounter Summary ---
Author Organization [employer] Address [address] [facility] [address] [place] [address] Care Team Providers Care Indoor Plant Technician Name Role Phone Amna Urrutia Primary Care Provider [phone] Adele, Everett ROSE Primary Care Provider [phone] Sahil Chen CNP Primary Care Provider [phone] Reason for Visit * Reason Onset Date Comments Med Refill 07/15/2023 Encounter Details Date Type Department Care Team (Late st Contact Info) Description 07/15/2023 Refill [facility] [address] [place], [place] [phone] Amna Urrutia FNP [address] [place] [address] Social History Tobacco Use Types Packs/Day Years [...] documented as of this encounter Care Teams Indoor Plant Technician Relationship Specialty Start Date End Date Amna Urrutia FNP [address] [place] [address] PCP - General Family Medicine 01/01/23 04/18/24 Everett Angulo MD [address] [place] [address] PCP - General Internal Medicine 04/19/24 10/08/24 Sahil Chen CNP [address] [place] [address] PCP - General Family Medicine 10/09/24 Chris Pack Jr Tipple TenderManager Resort 09/04/24 documented as of this encounter
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
--- OUTSIDE RECORDS SUMMARY | 2025-08-15 19:43 | XMS_ITS | Encounter Summary ---
Author Organization [employer] Address 75 [facility] 7t [place] [address] Care Team Providers Care Cocoa Mill Operator Name Role Phone Amna Urrutia Primary Care Provider [phone] Adele, Everett ROSE Primary Care Provider [phone] Sahil Chen CNP Primary Care Provider [phone] Reason for Visit * Reason Onset Date Comments Reschedule 02/14/2024 Encounter Details Date Type Department Care Team ([facility] st Contact Info) Description 02/14/2024 Telephone [facility] MEDICINE [address] [place] [address] Amna Urrutia FNP [address] [place] [address] Reschedule Social History Tobacco Use Types Packs/Day [...] encounter Miscellaneous Notes * Telephone Encounter - Irnee Aquino - 02/14/2024 2:06 PM EDT Tc from pt requesting to reschedule 02/13 follow up extended appointment. Skills Instructor attempted to reschedule but no availability. Please contact pt at [phone] documented in this encounter Plan of Treatment Not on file documented as of this encounter Visit Diagnoses Not on filedocumented in this encounter Additional Health Concerns Assessment Noted Time PHQ-9 Depression Total Score: 10 024 1:01 PM EDT documented as of this encounter Care Teams Cocoa Mill Operator Relationship Specialty Start Date End Date Amna Urrutia FNP [address] [place] [address] PCP - General Family Medicine 01/01/23 04/18/24 Everett Angulo MD [address] [place] [address] PCP - General Internal Medicine 04/19/24 10/08/24 Sahil Chen CNP [address] [place] [address] PCP - General Family Medicine 10/09/24 Chris Pack Jr Manager HvacCommunity Development Specialist 09/04/24 documented as of this encounter
--- OUTSIDE RECORDS SUMMARY | 2025-08-15 19:43 | XMS_ITS | Encounter Summary ---
Author Organization [facility] Address [address] [place] [address] Phone Care Team Providers Care Consumer Marketing Specialist Name Role Phone Santos Mueller MD Primary Care Provider [phone] Encounter Details Date Type Department Care Team (Late st Contact Info) Description 07/28/2023 Documentation Only [facility], [address] [place] [address] Santos Mueller MD [address] [place] [address] Social History Tobacco Use Types [...] on filedocumented in this encounter Care Teams Consumer Marketing Specialist Relationship Specialty Start Date End Date Santos Mueller MD [address] [place] [address] PCP - General Emergency Medicine 07/28/23 documented as of this encounter
--- OUTSIDE RECORDS SUMMARY | 2025-08-15 19:43 | XMS_ITS | Encounter Summary ---
Author Organization [employer] Address 75 [facility] 7t [place] [address] Care Team Providers Care Prepared Foods Associate Name Role Phone Amna Urrutia Primary Care Provider [phone] Adele, Everett ROSE Primary Care Provider [phone] Sahil Chen CNP Primary Care Provider [phone] Reason for Visit * Reason Onset Date Comments Med Refill 07/17/2023 Encounter Details Date Type Department Care Team (Late st Contact Info) Description 07/17/2023 Refill [facility] MEDICINE [address] [place] [address] Sandra Leal MD [address] [place] [address] Social History Tobacco Use Types Packs/Day Years [...] documented as of this encounter Care Teams Prepared Foods Associate Relationship Specialty Start Date End Date Amna Urrutia FNP [address] [place] [address] PCP - General Family Medicine 01/01/23 04/18/24 Everett Angulo MD [address] [place] [address] PCP - General Internal Medicine 04/19/24 10/08/24 Sahil Chen CNP [address] [place] [address] PCP - General Family Medicine 10/09/24 Chris Pack Jr Delivery AnalystJet Blade Polisher 09/04/24 documented as of this encounter
--- OUTSIDE RECORDS SUMMARY | 2025-08-15 19:43 | XMS_ITS | Encounter Summary ---
Author Organization [employer] Address 75 [facility] [address]t [place] [address] Care Team Providers Care Dehydration Unit Operator Name Role Phone Amna Urrutia Primary Care Provider [phone] Name, Everett ROSE Primary Care Provider [phone] Sahil Chen CNP Primary Care Provider [phone] Reason for Visit * Reason Onset Date Comments Appointment Request 09/08/2023 Encounter Details Date Type Department Care Team ([facility] Contact Info) Description 09/08/2023 Telephone [facility] MEDICINE [address] [place] [address] Amna Urrutia FNP [address] [place] [address] Appointment Request Social History Tobacco Use Types [...] to reschedule missed appt on 09/06 however leader writer was not able to offer apptdue to the provider did not have any availably documented in this encounter Plan of Treatment Not on file documented as of this encounter Visit Diagnoses Not on filedocumented in this encounter Additional Health Concerns Assessment Noted Time PHQ-9 Depression Total Score: 16 023 8:52 AM EDT documented as of this encounter Care Teams Dehydration Unit Operator Relationship Specialty Start Date End Date Amna Urrutia FNP [address] [place] [address] PCP - General Family Medicine 01/01/23 04/18/24 Evreett Angulo MD [address] [place] [address] PCP - General Internal Medicine 04/19/24 10/08/24 Sahil Chen CNP [address] [place] [address] PCP - General Family Medicine 10/09/24 Chris Pack Jr Call Center OperatorSolutions Architect 1/15/25 documented as of this encounter
--- OUTSIDE RECORDS SUMMARY | 2025-08-15 19:43 | XMS_ITS | Encounter Summary ---
Author Organization [employer] Address [address] [address] [facility] [facility] [address] 7t [place] [address] Care Team Providers Care Chef Head Name Role Phone Amna Urrutia Primary Care Provider [phone] Name, Everett ROSE Primary Care Provider Sahil Chen CNP Primary Care Provider [phone] Reason for Visit * Reason Comments Med Refill Encounter Details Date Type Department Care Team ([facility] st Contact Info) Description 09/08/2023 Refill [facility] MEDICINE [address] [place], [place] [phone] Amna Urrutia FNP [address] [place] [address] Type 1 diabetes mellitus with hyperglycemia ([facility]) Social History [...] documented as of this encounter Care Teams Chef Head Relationship Specialty Start Date End Date Amna Urrutia FNP [address] [place] [address] PCP - General Family Medicine 01/01/23 04/18/24 Everett Angulo MD [address] [place] [address] PCP - General Internal Medicine 04/19/24 10/08/24 Sahil Chen CNP [address] [place] [address] PCP - General Family Medicine 10/09/24 Chris Pack Jr Gate AgentSheetmetal Worker 09/04/24 documented as of this encounter
--- OUTSIDE RECORDS SUMMARY | 2025-08-15 19:43 | XMS_ITS | Encounter Summary ---
Author Organization [employer] Address [address] [facility] 7t [place] [address] Care Team Providers Care Ceo And Founder Name Role Phone Amna Urrutia Primary Care Provider [phone] Adele, Everett ROSE Primary Care Provider Sahil Chen CNP Primary Care Provider [phone] Reason for Visit * Reason Onset Date Comments Med Refill 07/15/2023 Encounter Details Date Type Department Care Team (Late st Contact Info) Description 07/15/2023 Refill [facility] MEDICINE 230 [place] [address] Sandra Leal MD 230 [place] [address] Social History Tobacco Use Types Packs/Day Years [...] documented as of this encounter Care Teams Ceo And Founder Relationship Specialty Start Date End Date Amna Urrutia FNP 230 [place] [address] PCP - General Family Medicine 01/01/23 04/18/24 Everett Angulo MD 230 [place] [address] PCP - General Internal Medicine 04/19/24 10/08/24 Sahil Chen CNP 230 [place] [address] PCP - General Family Medicine 10/09/24 Chris Pack Jr Ship ScalerFeature Writer 09/04/24 documented as of this encounter
--- OUTSIDE RECORDS SUMMARY | 2025-08-15 19:43 | XMS_ITS | Encounter Summary ---
Author Organization [employer] Address [address] [facility] [address] 7t [place] [address] Care Team Providers Care Utility Assembler Name Role Phone Amna Urrutia Primary Care Provider [phone] Name, Everett ROSE Primary Care Provider [phone] Sahil Chen CNP Primary Care Provider [phone] Reason for Visit * Reason Comments Med Refill Encounter Details Date Type Department Care Team ([facility] st Contact Info) Description 09/11/2023 Refill [facility] MEDICINE 230 [place], [place] [phone] Amna Urrutia FNP 230 [place] [address] Type 1 diabetes mellitus with hyperglycemia ([facility]) Social History Tobacco Use [...] documented as of this encounter Care Teams Utility Assembler Relationship Specialty Start Date End Date Amna Urrutia FNP 230 [place] [address] PCP - General Family Medicine 01/01/23 04/18/24 Everett Angulo MD [address] [place] [address] PCP - General Internal Medicine 04/19/24 10/08/24 Sahil Chen CNP [address] [place] [address] PCP - General Family Medicine 10/09/24 Chris Pack Jr Shovel Handle AssemblerEfficiency Manager 09/04/24 documented as of this encounter
--- OUTSIDE RECORDS SUMMARY | 2025-08-15 19:43 | XMS_ITS | Encounter Summary ---
Author Organization [employer] Address [address] 7t [place] [address] Care Team Providers Care Densitometrist Name Role Phone Amna Urrutia Primary Care Provider [phone] Adele, Everett ROSE Primary Care Provider [phone] Sahil Chen CNP Primary Care Provider [phone] Reason for Visit * Reason Comments Med Refill Encounter Details Date Type Department Care Team ([facility] st Contact Info) Description 05/30/2023 Refill [facility] MEDICINE 230 [place] [address] Amna Urrutia FNP [address] [place] [address] Social History Tobacco Use Types Packs/Day Years [...] documented as of this encounter Care Teams Densitometrist Relationship Specialty Start Date End Date Amna Urrutia FNP [address] [place] [address] PCP - General Family Medicine 01/01/23 04/18/24 Everett Angulo MD 230 [place] [address] PCP - General Internal Medicine 04/19/24 10/08/24 Sahil Chen CNP 230 [place] [address] PCP - General Family Medicine 10/09/24 Chris Pack Jr Museum EducatorHistory Faculty Member 09/04/24 documented as of this encounter
--- OUTSIDE RECORDS SUMMARY | 2025-08-15 19:43 | XMS_ITS | Encounter Summary ---
Author Organization [facility] Address [address] [place] [address] Phone Care Team Providers Care Supervisor Sawing And Assembly Name Role Phone Santos Mueller MD Primary Care Provider [phone] Encounter Details Date Type Department Care Team (Late st Contact Info) Description 08/05/2024 Documentation Only [facility] [place], [address] [place] [address] Jessica Sprague [address] [place] [address] Social History Tobacco Use Types [...] filedocumented in this encounter Care Teams Supervisor Sawing And Assembly Relationship Specialty Start Date End Date Santos Mueller MD 230 [place] [address] PCP - General Emergency Medicine 07/28/23 documented as of this encounter
--- OUTSIDE RECORDS SUMMARY | 2025-08-15 19:43 | XMS_ITS | Encounter Summary ---
Author Organization [facility] Address [address] [place] [address] Phone Care Team Providers Care Shipping Helper Name Role Phone Santos Mueller MD Primary Care Provider [phone] Encounter Details Date Type Department Care Team (Late st Contact Info) Description 08/05/2024 Documentation Only [facility] [place], [address] [place] [address] Jessica Sprague [address] [place] [address] Social History Tobacco Use Types [...] on filedocumented in this encounter Care Teams Shipping Helper Relationship Specialty Start Date End Date Santos Mueller MD 230 [place] [address] PCP - General Emergency Medicine 07/28/23 documented as of this encounter
--- OUTSIDE RECORDS SUMMARY | 2025-08-15 19:43 | XMS_ITS | Encounter Summary ---
Author Organization [employer] Address [address] 7t [place] [address] Care Team Providers Care Weight Engineer Name Role Phone Sahil Chen CNP Primary Care Provider [phone] Reason for Visit * Reason Onset Date Comments Nurse Triage 03/17/2025 Encounter Details Date Type Department Care Team (Late st Contact Info) Description 03/17/2025 Telephone [facility] MEDICINE 230 [place] [address] Sahil Chen CNP [address] [place] [address] Nurse Triage Social History Tobacco Use Types [...] with good effect. ASK apt with PCP [place] @ 1000am. Pt agrees with disposition and [...] on his tail bonearea. Contact pt at [phone] documented in this encounter Plan of Treatment Not on file documented as of this encounter Visit Diagnoses Not on filedocumented in this encounter Additional Health Concerns Assessment Noted Time PHQ-9 Depression Total Score: 19 11/27/ 025 3:09 PM EDT documented as of this encounter Care Teams Weight Engineer Relationship Specialty Start Date End Date Sahil Chen CNP PCP - General Family Medicine 10/09/24 Chris Pack Jr Jack Of All TradesMobile Manager 09/04/24 documented as of this encounter
--- OUTSIDE RECORDS SUMMARY | 2025-08-15 19:43 | XMS_ITS | Encounter Summary ---
Author Organization [employer] Address [address] 7[address] [place] [address] Care Team Providers Care Bundle Helper Name Role Phone Name, Everett ROSE Primary Care Provider [phone] Sahil Chen CNP Primary Care Provider [phone] Reason for Visit * Reason Comments Med Refill Encounter Details Date Type Department Care Team (Late st Contact Info) Description 05/03/2024 Refill [facility] [address] [place], [place] [phone] Amna Urrutia FNP [address] [place] [address] Type 1 diabetes mellitus with hyperglycemia (CMS/PRISMA [...] documented as of this encounter Care Teams Bundle Helper Relationship Specialty Start Date End Date Name, MD Everett 230 [place] [address] PCP - General Internal Medicine 04/19/24 10/08/24 Sahil Chen CNP 230 [place] [address] PCP - General Family Medicine 10/09/24 Chris Pack Jr Regional Maintenance ManagerChemical Laboratory Chief 09/04/24 documented as of this encounter
--- OUTSIDE RECORDS SUMMARY | 2025-08-15 19:43 | XMS_ITS | Clinical Summary ---
Author Organization [facility] Address [address] [place] [address] Phone Care Team Providers Care Drywall Finisher Name Role Phone Sahil Chen SHIPFITTER Primary Care Provider [phone] Allergies Active Allergy Reactions Criticality Noted Date Comments Diphenhydramine Hcl 04/02/2025 Haloperidol 04/02/2025 Medications No known medications Social History Tobacco [...] have reliable internet access at home? Ye mitra 04/02/2025 Do you have a device (e.g., [...] this topic Medical Devices Not on file Insurance [place] Care Teams Drywall Finisher Relationship Specialty Start Date End Date Sahil Chen NP [address] [place] [address] PCP - General Nurse Practitioner 04/02/25 Additional Source Comments The information contained in this document represents components of the legal health record. It is not the complete legal health record.[facility]
--- OUTSIDE RECORDS SUMMARY | 2025-08-15 19:43 | XMS_ITS | Encounter Summary ---
Author Organization [employer] Address [address] 7t [place] [address] Care Team Providers Care Color Expert Name Role Phone Amna Urrutia Primary Care Provider [phone] Adele, Everett ROSE Primary Care Provider [phone] Sahil Chen CNP Primary Care Provider [phone] Reason for Visit * Reason Comments Med Refill Encounter Details Date Type Department Care Team ([facility] st Contact Info) Description 08/29/2023 Refill [facility] MEDICINE 230 [place] [address] Carlos Alberto Villavicencio MD 230 [place] [address] Type 1 diabetes mellitus with hyperglycemia (CMS/HCC) [...] is your housing situation today? I have augusat carranza 06/05/[address] you [...] as of this encounter Care Teams Color Expert Relationship Specialty Start Date End Date Amna Urrutia FNP 230 [place] [address] PCP - General Family Medicine 01/01/23 04/18/24 Everett Angulo MD [address] [place] [address] PCP - General Internal Medicine 04/19/24 10/08/24 Sahil Chen CNP [address] [place] [address] PCP - General Family Medicine 10/09/24 Chris Pack Jr Firer BoilerPlastics Seasoner Operator 09/04/24 documented as of this encounter
--- OUTSIDE RECORDS SUMMARY | 2025-08-15 19:43 | XMS_ITS | Encounter Summary ---
Author Organization [employer] Address [address] [facility] [address] [facility] [address] 7t [place] [address] Care Team Providers Care Electrician Manager Name Role Phone Amna Urrutia Primary Care Provider [phone] Name, Everett ROSE Primary Care Provider [phone] Sahil Chen CNP Primary Care Provider [phone] Reason for Visit * Reason Onset Date Comments Med Refill 07/28/2023 Encounter Details Date Type Department Care Team (Late st Contact Info) Description 07/28/2023 Refill [facility] MEDICINE 230 [place] [address] Amna Urrutia FNP [address] [place] [address] Social History Tobacco Use Types Packs/Day Years [...] documented as of this encounter Care Teams Electrician Manager Relationship Specialty Start Date End Date Amna Urrutia FNP [address] [place] [address] PCP - General Family Medicine 01/01/23 04/18/24 Everett Angulo MD [address] [place] [address] PCP - General Internal Medicine 04/19/24 10/08/24 Sahil Chen CNP [address] [place] [address] PCP - General Family Medicine 10/09/24 Chris Pack Jr Manager LaundryKitchen Aide 09/04/24 documented as of this encounter
--- OUTSIDE RECORDS SUMMARY | 2025-08-15 19:43 | XMS_ITS | Encounter Summary ---
Author Organization [employer] Address [address] [facility] [address] 7t [place] [address] Care Team Providers Care Automotive Lube Technician Name Role Phone Amna Urrutia Primary Care Provider [phone] Name, Everett ROSE Primary Care Provider [phone] Sahil Chen CNP Primary Care Provider [phone] Reason for Visit * Reason Onset Date Comments Med Refill 09/27/2023 Encounter Details Date Type Department Care Team (Late st Contact Info) Description 09/27/2023 Refill [facility] MEDICINE [address] [place] [address] Amna Urrutia FNP [address] [place] [address] Type 1 diabetes mellitus with hyperglycemia ([facility]) Social History Tobacco Use Types Packs/Day [...] documented as of this encounter Care Teams Automotive Lube Technician Relationship Specialty Start Date End Date Amna Urrutia FNP [address] [place] [address] PCP - General Family Medicine 01/01/23 04/18/24 Everett Angulo MD [address] [place] [address] PCP - General Internal Medicine 04/19/24 10/08/24 Sahil Chen CNP [address] [place] [address] PCP - General Family Medicine 10/09/24 Chris Pack Jr Demurrage WorkerAssistant Chief Engineer 09/04/24 documented as of this encounter
--- OUTSIDE RECORDS SUMMARY | 2025-08-15 19:43 | XMS_ITS | Encounter Summary ---
Author Organization [employer] Address [address] 7t [place] [address] Care Team Providers Care Construction Administrative Assistant Name Role Phone Amna Urrutia Primary Care Provider [phone] Name, Everett ROSE Primary Care Provider [phone] Sahil Chen CNP Primary Care Provider [phone] Reason for Visit * Reason Onset Date Comments Med Refill 05/30/2023 Encounter Details Date Type Department Care Team (Late st Contact Info) Description 05/30/2023 Refill [facility] MEDICINE [address] [place] [address] Amna Urrutia FNP [address] [place] [address] Social History Tobacco Use Types Packs/Day Years [...] documented as of this encounter Care Teams Construction Administrative Assistant Relationship Specialty Start Date End Date Amna Urrutia FNP [address] [place] [address] PCP - General Family Medicine 01/01/23 04/18/24 Everett Angulo MD [address] [place] [address] PCP - General Internal Medicine 04/19/24 10/08/24 Sahil Chen CNP [address] [place] [address] PCP - General Family Medicine 10/09/24 Chris Pack Jr Fur Finisher SeamstressFood Inspector 09/04/24 documented as of this encounter
--- OUTSIDE RECORDS SUMMARY | 2025-08-15 19:43 | XMS_ITS | Clinical Summary ---
Author Organization [facility], Address [address] [place] [address] [place] [address] Phone Care Team Providers Care Gripper Attacher Name Role Phone Santos Mueller MD Primary Care Provider [phone] Allergies Active Allergy Reactions Criticality Noted Date [...] 2025 06/08/2016 Insurance Medicaid [place] Care Teams Gripper Attacher Relationship Specialty Start Date End Date Santos Mueller MD [address] [place] [phone] PCP - General Emergency Medicine 07/28/23
--- OUTSIDE RECORDS SUMMARY | 2025-08-15 19:43 | XMS_ITS | Encounter Summary ---
Author Organization [facility] Address [address] [place] [address] Phone Care Team Providers Care Game And Fish Protector Name Role Phone Santos Mueller MD Primary Care Provider [phone] Encounter Details Date Type Department Care Team (Late st Contact Info) Description 08/05/2024 Documentation Only [facility] [place], [address] [place] [address] Jessica Sprague [address] [place] [address] Social History Tobacco Use Types [...] on filedocumented in this encounter Care Teams Game And Fish Protector Relationship Specialty Start Date End Date Santos Mueller MD [address] [place] [address] PCP - General Emergency Medicine 07/28/23 documented as of this encounter
--- OUTSIDE RECORDS SUMMARY | 2025-08-15 19:43 | XMS_ITS | Encounter Summary ---
Author Organization [employer] Address [address] [facility] [address] 7t [place] [address] Care Team Providers Care Staker Surveying Name Role Phone Amna Urrutia Primary Care Provider [phone] Adele, Everett ROSE Primary Care Provider [phone] Sahil Chen CNP Primary Care Provider [phone] Encounter Details Date Type Department Care Team (Late st Contact Info) Description 06/28/2023 Orders Only [facility] 230 [place], [place] [phone] Santos Mueller MD 230 [place] [address] Social History Tobacco Use Types Packs/Day Years [...] documented as of this encounter Care Teams Staker Surveying Relationship Specialty Start Date End Date Amna Urrutia FNP 230 [place] [address] PCP - General Family Medicine 01/01/23 04/18/24 Everett Angulo MD [address] [place] [address] PCP - General Internal Medicine 04/19/24 10/08/24 Sahil Chen CNP 230 [place] [address] PCP - General Family Medicine 10/09/24 Chris Pack Jr Turn Down WorkerSmoking Pipe Mounter 09/04/24 documented as of this encounter
--- OUTSIDE RECORDS SUMMARY | 2025-08-15 19:43 | XMS_ITS | Clinical Summary ---
Author Organization [facility] Address [address] [place] [address] Phone Care Team Providers Care Driver Guard Name Role Phone Sahil Chen NP Primary Care Provider [phone] Allergies Active Allergy Reactions Criticality Noted Date [...] 2:30 PM EST Office Visit Orthopedic Surgery [facility] [address] [address] Devan Alonso, DPEliecer [address] [address] Health Maintenance Due Date Last [...] Urine Albumin-Creatinine Ratio (uACR) 01/01/2025 COVID-19 Vaccine (2024-2 6 season) 2025 Influenza Vaccine (#1) 2025 06/08/2016 Diabetes: Blood Sugar Contro l Test (HGBA1C) 09/19/2025 03/19/2025 Diabetes: Annual GFR (Glomerular Filtration Rate) 06/22/2026 06/22/2025, 03/16/2025 Cholesterol Screening (Lipid Panel) 11/14/2028 [...] topic Insurance MEDICAID - [place] Care Teams Driver Guard Relationship Specialty Start Date End Date Sahil Chen NP [address] [place] [address] PCP - General Family Medicine 01/01/25
--- OUTSIDE RECORDS SUMMARY | 2025-08-15 19:43 | XMS_ITS | Encounter Summary ---
Author Organization [employer] Address [address] [facility] [address] 7t [place] [address] Care Team Providers Care Parts Interpreter Name Role Phone Amna Urrutia Primary Care Provider [phone] Adele, Everett ROSE Primary Care Provider [phone] Sahil Chen CNP Primary Care Provider [phone] Reason for Visit * Reason Onset Date Comments reaction to medication 10/24/2022 Encounter Details Date Type Department Care Team ([facility] st Contact Info) Description 10/24/2022 Telephone [facility] 230 [place] [address] Marycruz Oseguera DDS [address] [place] [address] reaction to medication Social History Tobacco Use [...] on filedocumented in this encounter Care Teams Parts Interpreter Relationship Specialty Start Date End Date Amna Urrutia FNP 230 [place] [address] PCP - General Family Medicine 01/01/23 04/18/24 Adele, MD Everett [address] [place] [address] PCP - General Internal Medicine 04/19/24 10/08/24 Sahil Chen CNP [address] [place] [address] PCP - General Family Medicine 10/09/24 Chris Pack Jr Senior Health ConsultantStrapper 09/04/24 documented as of this encounter
--- OUTSIDE RECORDS SUMMARY | 2025-08-15 19:43 | XMS_ITS | Encounter Summary ---
Author Organization [employer] Address [address] [facility] 7t [place] [address] Care Team Providers Care Makeup Sales Advisor Name Role Phone Amna Urrutia Primary Care Provider [phone] Everett Angulo MD Primary Care Provider [phone] Sahil Chen CNP Primary Care Provider [phone] Encounter Details Date Type Department Care Team (Late st Contact Info) Description 10/21/2022 Abstract [facility] [address] [place] [address] Marycruz Oseguera DDS 230 [place] [address] Social History Tobacco Use Types Packs/Day Years [...] on filedocumented in this encounter Care Teams Makeup Sales Advisor Relationship Specialty Start Date End Date Amna Urrutia FNP 230 [place] [address] PCP - General Family Medicine 01/01/23 04/18/24 Everett Angulo MD 230 [place] [address] PCP - General Internal Medicine 04/19/24 10/08/24 Sahil Chen CNP [address] [facility] [place] [address] PCP - General Family Medicine 10/09/24 Chris Pack Jr Commercial RetoucherScheduling Administrator 09/04/24 documented as of this encounter
--- OUTSIDE RECORDS SUMMARY | 2025-08-15 19:43 | XMS_ITS | Encounter Summary ---
Author Organization [employer] Address [address] [facility] [address] 7t [place] [address] Care Team Providers Care Real Estate Services Administrator Name Role Phone Amna Urrutia Primary Care Provider [phone] Name, Everett ROSE Primary Care Provider [phone] Sahil Chen CNP Primary Care Provider [phone] Reason for Visit * Reason Onset Date Comments Med Refill 07/17/2023 Encounter Details Date Type Department Care Team (Late st Contact Info) Description 07/17/2023 Refill [facility] MEDICINE [address] [place] [address] Amna Urrutia FNP [address] [place] [address] Social History Tobacco Use Types Packs/Day Years [...] of this encounter Care Teams Real Estate Services Administrator Relationship Specialty Start Date End Date Amna Urrutia FNP [address] [place] [address] PCP - General Family Medicine 01/01/23 04/18/24 Everett Angulo MD [address] [place] [address] PCP - General Internal Medicine 04/19/24 10/08/24 Sahil Chen CNP [address] [place] [address] PCP - General Family Medicine 10/09/24 Chris Pack Jr Emergency Medicine Physician AssistantCyber Defense Forensics Analyst 09/04/24 documented as of this encounter
--- OUTSIDE RECORDS SUMMARY | 2025-08-15 19:43 | XMS_ITS | Encounter Summary ---
Author Organization [employer] Address [address] [facility] [address] [place] [address] Care Team Providers Care Bowling Alley Mechanic Name Role Phone Amna Urrutia Primary Care Provider [phone] Name, Everett ROSE Primary Care Provider [phone] Sahil Chen CNP Primary Care Provider [phone] Reason for Visit * Reason Comments Med Refill Encounter Details Date Type Department Care Team ([facility] st Contact Info) Description 10/04/2023 Refill [facility] [address] [place] [address] Amna Urrutia FNP [address] [place] [address] Type 1 diabetes mellitus with hyperglycemia ([facility]) Social History Tobacco Use [...] documented as of this encounter Care Teams Bowling Alley Mechanic Relationship Specialty Start Date End Date Amna Urrutia FNP [address] [place] [address] PCP - General Family Medicine 01/01/23 04/18/24 Everett Angulo MD [address] [place] [address] PCP - General Internal Medicine 04/19/24 10/08/24 Sahil Chen CNP [address] [place] [address] PCP - General Family Medicine 10/09/24 Chris Pack Jr Wrapping ClerkBall Racker 09/04/24 documented as of this encounter
--- OUTSIDE RECORDS SUMMARY | 2025-08-15 19:43 | XMS_ITS | Encounter Summary ---
Author Organization [employer] Address [address] [facility] [facility] [address] [place] [address] Care Team Providers Care Prototype Fabricator Name Role Phone Amna Urrutia Primary Care Provider [phone] Adele, Everett ROSE Primary Care Provider [phone] Sahil Chen CNP Primary Care Provider [phone] Reason for Visit * Reason Onset Date Comments Med Refill 07/28/2023 Encounter Details Date Type Department Care Team (Late st Contact Info) Description 07/28/2023 Refill [facility] MED[facility]INE [address] [place] [address] Denice Rubin MD [address] [place] [address] Social History Tobacco Use Types Packs/Day Years [...] documented as of this encounter Care Teams Prototype Fabricator Relationship Specialty Start Date End Date Amna Urrutia FNP [address] [place] [address] PCP - General Family Medicine 01/01/23 04/18/24 Everett Angulo MD [address] [place] [address] PCP - General Internal Medicine 04/19/24 10/08/24 Sahil Chen CNP [address] [place] [address] PCP - General Family Medicine 10/09/24 Chris Pack Jr Bar AssistantMerchandise Flow Team Leader 09/04/24 documented as of this encounter
--- OUTSIDE RECORDS SUMMARY | 2025-08-15 19:43 | XMS_ITS | Encounter Summary ---
Author Organization [employer] Address [address] [address] [facility] [address] [place] [address] Care Team Providers Care Analysis Internship Name Role Phone Name, Everett ROSE Primary Care Provider Sahil Chen CNP Primary Care Provider [phone] Encounter Details Date Type Department Care Team (Late st Contact Info) Description 04/21/2024 Orders Only [facility] MED & P[facility]S [address] [place], [place] [phone] Amna Urrutia FNP [address] [place], [place] [phone] Social History Tobacco Use Types Packs/Day Years [...] documented as of this encounter Care Teams Analysis Internship Relationship Specialty Start Date End Date Name, MD Everett [address] [place] [address] PCP - General Internal Medicine 04/19/24 10/08/24 Sahil Chen CNP [address] [place] [address] PCP - General Family Medicine 10/09/24 Chris Pack Jr Adjudication SpecialistFlattening Machine Operator 09/04/24 documented as of this encounter
--- OUTSIDE RECORDS SUMMARY | 2025-08-15 19:44 | XMS_ITS | Encounter Summary ---
Author Organization [employer] Address [address] [facility] [address] [place] [address] Care Team Providers Care Services Rep Name Role Phone Sahil Chen CNP Primary Care Provider [phone] Reason for Visit * Reason Comments Med Refill Encounter Details Date Type Department Care Team (Late st Contact Info) Description 01/09/2025 Refill [facility] MED[facility]INE [address] [place] [address] Sahil Chen CNP [address] [place], [place] [phone] Type 1 diabetes mellitus with hyperglycemia (CMS/ANMED [...] documented as of this encounter Care Teams Services Rep Relationship Specialty Start Date End Date Sahil Chen CNP PCP - General Family Medicine 10/09/24 Chris Pack Jr Quick Mixer OperatorWelding Teacher 09/04/24 documented as of this encounter
--- OUTSIDE RECORDS SUMMARY | 2025-08-15 19:44 | XMS_ITS | Encounter Summary ---
Author Organization [employer] Address [address] [place] [address] Care Team Providers Care Bottom Man Name Role Phone Amna Urrutia Primary Care Provider [phone] Adele, Everett ROSE Primary Care Provider [phone] Sahil Chen CNP Primary Care Provider [phone] Reason for Visit * Reason Onset Date Comments Med Refill 05/03/2023 Encounter Details Date Type Department Care Team (Late st Contact Info) Description 05/03/2023 Refill [facility] [address] [place] [address] Amna Urrutia FNP [address] [place] [address] Type 1 diabetes mellitus with hyperglycemia (CMS/HCC) [...] documented as of this encounter Care Teams Bottom Man Relationship Specialty Start Date End Date Amna Urrutia FNP [address] [place] [address] PCP - General Family Medicine 01/01/23 04/18/24 Everett Angulo MD [address] [place], [place] [phone] PCP - General Internal Medicine 04/19/24 10/08/24 Sahil Chen CNP [address] [place] [address] PCP - General Family Medicine 10/09/24 Chris Pack Jr Category Development ManagerMachine Designer 09/04/24 documented as of this encounter
--- OUTSIDE RECORDS SUMMARY | 2025-08-15 19:44 | XMS_ITS | Encounter Summary ---
Author Organization [employer] Address [address] [facility] 7t [place] [address] Care Team Providers Care Air Battle Manager Name Role Phone Amna Urrutia Primary Care Provider [phone] Adele, Everett ROSE Primary Care Provider [phone] Sahil Chen CNP Primary Care Provider [phone] Reason for Visit * Reason Onset Date Comments Med Refill 05/01/2023 Encounter Details Date Type Department Care Team (Late st Contact Info) Description 05/01/2023 Refill [facility] [address] [place] [address] Sandra Leal MD [address] [place] [address] Social History Tobacco Use Types Packs/Day Years [...] as of this encounter Care Teams Air Battle Manager Relationship Specialty Start Date End Date Amna Urrutia FNP [address] [place] [address] PCP - General Family Medicine 01/01/23 04/18/24 Everett Angulo MD [address] [place] [address] PCP - General Internal Medicine 04/19/24 10/08/24 Sahil Chen CNP [address] [place] [address] PCP - General Family Medicine 10/09/24 Chris Pack Jr Model And Pattern SupervisorDressage Instructor 09/04/24 documented as of this encounter
--- OUTSIDE RECORDS SUMMARY | 2025-08-15 19:44 | XMS_ITS | Encounter Summary ---
Author Organization [employer] Address [address] [place] [address] Care Team Providers Care Research Group Director Name Role Phone Amna Urrutia Primary Care Provider [phone] Adele, Everett ROSE Primary Care Provider [phone] Sahil Chen CNP Primary Care Provider [phone] Reason for Visit * Reason Onset Date Comments Med Refill 05/01/2023 Encounter Details Date Type Department Care Team (Late st Contact Info) Description 05/01/2023 Refill [facility] [address] [place] [address] Lakshmi Womack FNP [address] [place] [address] Type 1 diabetes mellitus with hyperglycemia (CMS/HCC) [...] documented as of this encounter Care Teams Research Group Director Relationship Specialty Start Date End Date Amna Urrutia FNP [address] [place] [address] PCP - General Family Medicine 01/01/23 04/18/24 Everett Angulo MD [address] [place], [place] [phone] PCP - General Internal Medicine 04/19/24 10/08/24 Sahil Chen CNP [address] [place] [address] PCP - General Family Medicine 10/09/24 Chris Pack Jr Consulting Hr ProfessionalOrthopedic Designer 09/04/24 documented as of this encounter
--- OUTSIDE RECORDS SUMMARY | 2025-08-15 19:44 | XMS_ITS | Encounter Summary ---
Author Organization [employer] Address [address] [facility] 7t [place] [address] Care Team Providers Care Treater Helper Name Role Phone Amna Urrutia Primary Care Provider [phone] Adele, Everett ROSE Primary Care Provider [phone] Sahil Chen CNP Primary Care Provider [phone] Reason for Visit * Reason Onset Date Comments Med Refill 04/29/2023 Encounter Details Date Type Department Care Team (Late st Contact Info) Description 04/29/2023 Refill [facility] [address] [place] [address] Sandra Leal MD [address] [place] [address] Social History Tobacco Use Types Packs/Day Years [...] documented as of this encounter Care Teams Treater Helper Relationship Specialty Start Date End Date Amna Urrutia FNP [address] [place] [address] PCP - General Family Medicine 01/01/23 04/18/24 Everett Angulo MD [address] [place] [address] PCP - General Internal Medicine 04/19/24 10/08/24 Sahil Chen CNP [address] [place] [address] PCP - General Family Medicine 10/09/24 Chris Pack Jr Firewall EngineerAccounts Payable Coordinator 09/04/24 documented as of this encounter
--- OUTSIDE RECORDS SUMMARY | 2025-08-15 19:44 | XMS_ITS | Encounter Summary ---
Author Organization [employer] Address [address] [facility] [facility] [address] [place] [address] Care Team Providers Care Warehouse Team Member Name Role Phone Sahil Chen CNP Primary Care Provider [phone] Reason for Visit * Reason Comments Med Refill Encounter Details Date Type Department Care Team (Late st Contact Info) Description 02/17/2025 Refill [facility] MED[facility]INE [address] [place] [address] Sahil Chen CNP [address] [place], [place] [phone] Type 1 diabetes mellitus with hyperglycemia (CMS/[facility]) Social History Tobacco Use Types [...] as of this encounter Care Teams Warehouse Team Member Relationship Specialty Start Date End Date Sahil Chen CNP PCP - General Family Medicine 10/09/24 Chris Pack Jr Amusement Centre ManagerElectronic News Gathering Camera Person 09/04/24 documented as of this encounter
--- OUTSIDE RECORDS SUMMARY | 2025-08-15 19:44 | XMS_ITS | Encounter Summary ---
Author Organization [employer] Address [address] [facility] [address] [place] [address] Care Team Providers Care Sheet Rock Applicator Name Role Phone Amna Urrutia Primary Care Provider [phone] Adele, Everett ROSE Primary Care Provider [phone] Sahil Chen CNP Primary Care Provider [phone] Encounter Details Date Type Department Care Team (Late st Contact Info) Description 01/17/2023 Orders Only [facility] MEDICINE [address] [place] [address] Amna Urrutia FNP [address] [place] [address] Social History Tobacco Use Types Packs/Day Years [...] documented as of this encounter Care Teams Sheet Rock Applicator Relationship Specialty Start Date End Date Amna Urrutia FNP [address] [place] [address] PCP - General Family Medicine 01/01/23 04/18/24 Everett Angulo MD [address] [place], [place] [phone] PCP - General Internal Medicine 04/19/24 10/08/24 Sahil Chen CNP [address] [place] [address] PCP - General Family Medicine 10/09/24 Chris Pack Jr Mgmt ConsultantFinancial Service Professional 09/04/24 documented as of this encounter
--- OUTSIDE RECORDS SUMMARY | 2025-08-15 19:44 | XMS_ITS | Clinical Summary ---
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 [place] [phone] * (ABNORMAL) Glucose, Whole Blood (06/22/2025 3:15 PM EST) Glucose, Whole Blood 237(H) 60 - 115 mg/dL [facility] Comment:METER #: [id number] 06/22/2025 3:15 PM EST 06/22/2025 3:23 PM EST us Generic External Data Provider LAB BLOOD ORDERAB LES Final Result Performing Organization Address [facility] [place]/[facility]/ZIP Co de Phone Number [facility] [address] [place] [phone] * Hepatitis C Antibody with Reflex to HCV, RNA, Quantitative, Real-Time PCR (11/15/2023 1:28 PM EDT) Hepatitis C Antibody Nonreactive Nonreactive [facility] Comment:Antibodies to HCV no t detected; does not exclude early acuteHCV infection. Blood Venous blood specimen / Unknown 11/15/2023 1:28 PM EDT 11/15/2023 4:04 PM EDT [facility] LAB BLOOD ORDERABLES Final Resu lt Performing Organization Address [facility] [place]/[facility] Co de Phone Number [facility] [address] [place] [phone] * Lipid Panel, Standard (11/15/2023 1:28 PM EDT) Triglycerides 56 <150 mg/dL [facility] Comment:Desirable Triglyceri de: less than 150 mg/dLBorderline High Triglyceride 150-199 mg/dLHigh Triglyceride: 200-499 mg/dLVery High Triglyceride: greater than or equal to 5OO mg/dL Cholesterol 145 <200 mg/dL [facility] Comment:Desirable Cholestero l: less than 200 mg/dLBorderline High Cholesterol: 200-239 mg/dLHigh Cholesterol: greater than 239 mg/dL LDL Cholesterol Calculated 84 <100 mg/dL [facility] Comment:Desirable LDL: less than 100 mg/dLNear Optimal/Above Optimal LDL: 110- 129 mg/dLBorderline High LDL: 130-159 mg/dLHigh LDL: 160-189 mg/dLVery High LDL: greater than or equal to 190 mg/dL HDL Cholesterol 50 >40 mg/dL [facility] Comment:Desirable HDL: great er than 40 mg/dL Note: This HDL assay may give artificially low results in patients with liver disease. Blood Venous blood specimen / Unknown 11/15/2023 1:28 PM EDT 11/15/2023 4:04 PM EDT [facility]LOOD ORDER[facility]LES Final Resu lt Performing Organization Address [facility] [place]/[facility]/ZIP Co de Phone Number [facility] [address] [place] [phone] * HIV-1 RNA, Quantitative, Real-Time PCR with Reflex to Genotype (RTI, PI, Integrase) (01/06/2023 10:25 AM EDT) HIV 1 RNA, QN PCR NOT DETECTED copies/mL [facility], HIV 1 RNA, QN PCR NOT DETECTED Log copies/mL [facility], Comment: REFERENCE RANGE: NOT DETECTED copies/mL NOT DETECTED Log copies/mL This test was performed using Real-Time Polymerase Chain Reaction. Reportable range is 20 to 10,000,000 copies/mL (1.30-7.00 Log copies/mL). 01/06/2023 10:2 5 AM EDT 01/06/2023 10:26 AM EDT Narrative [facility] - 01/11/2023 1:53 AM EDT FASTING:NO SPECIMEN COLLECTED AT PROVIDER OFFICE. FASTING: NO Amna Urrutia [facility] LAB BLOOD ORDERABLES Final Resu lt [facility] [address], [place] [address] [facility], [address] [place] [address] from Last 3 Months or Most Recently Relevant to Health Maintenance Insurance [facility] STANDARD Care Teams Noteman Relationship Specialty Start Date End Date Sahil Chen CNP PCP - General Family Medicine 10/09/24 Chris Pack Jr Manufacturing AnalystCrystal Grower 09/04/24
--- OUTSIDE RECORDS SUMMARY | 2025-08-15 19:44 | XMS_ITS | Encounter Summary ---
Author Organization [employer] Address [address] [facility] [address] [place] [address] Care Team Providers Care Ethanol Maintenance Mechanic Name Role Phone Amna Urrutia Primary Care Provider [phone] Adele, Everett ROSE Primary Care Provider [phone] Sahil Chen CNP Primary Care Provider [phone] Reason for Visit * Reason Onset Date Comments Med Refill 04/28/2023 Encounter Details Date Type Department Care Team (Late st Contact Info) Description 04/28/[address] [facility] [address] [place] [phone] Sandra Leal MD [address] [place] [address] Social History Tobacco Use Types Packs/Day Years [...] documented as of this encounter Care Teams Ethanol Maintenance Mechanic Relationship Specialty Start Date End Date Amna Urrutia FNP [address] [place] [address] PCP - General Family Medicine 01/01/23 04/18/24 Everett Angulo MD [address] [place] [address] PCP - General Internal Medicine 04/19/24 10/08/24 Sahil Chen CNP [address] [place] [address] PCP - General Family Medicine 10/09/24 Chris Pack Jr Traveling ElectricianHand Tacker 09/04/24 documented as of this encounter
--- OUTSIDE RECORDS SUMMARY | 2025-08-15 19:44 | XMS_ITS | Encounter Summary ---
Author Organization [employer] Address [address] [facility] [address] [place] [address] Care Team Providers Care Plastic Press Operator Name Role Phone Amna Urrutia Primary Care Provider [phone] Name, Everett ROSE Primary Care Provider Sahil Chen CNP Primary Care Provider [phone] Reason for Visit * Reason Onset Date Comments Med Refill 03/21/2023 Encounter Details Date Type Department Care Team (Late st Contact Info) Description 03/21/2023 Refill [facility] [address] [place] [address] Amna Urrutia FNP [address] [place] [address] Social History Tobacco Use Types Packs/Day Years [...] documented as of this encounter Care Teams Plastic Press Operator Relationship Specialty Start Date End Date Amna Urrutia FNP [address] [place] [address] PCP - General Family Medicine 01/01/23 04/18/24 Everett Angulo MD [address] [place] [address] PCP - General Internal Medicine 04/19/24 10/08/24 Sahil Chen CNP [address] [place] [address] PCP - General Family Medicine 10/09/24 Chris Pack Jr Squeegee TenderClerk Television Production 09/04/24 documented as of this encounter
--- NOTE | 2025-08-15 19:59 | ED.GENADULT ---
HPI - General Adult General Chief complaint: Back Pain/Injury Stated complaint: INFECTION IN LEGS AND NECK Time Seen by Provider: 08/15/25 22:17 Source: patient Mode of arrival: ambulatory Limitations: no limitations History of Present Illness ED Provider: Dr. Brooklynn Lees Related Data Home Medications ?Medication ?Instructions ?Recorded ?Confirmed pantoprazole 40 mg tablet,delayed 40 mg PO DAILY@0630 12/19/22 01/31/25 release (Protonix) promethazine 25 mg tablet 25 mg PO TID PRN nausea/vomiting 01/23/23 01/31/25 acetaminophen 500 mg tablet 500 mg PO Q6H PRN 04/09/24 01/31/25 duloxetine 30 mg capsule,delayed 30 mg PO BID 06/05/25 release mirtazapine 15 mg tablet 15 mg PO BEDTIME 06/05/25 Previous Rx's ?Medication ?Instructions ?Recorded albuterol sulfate 90 mcg/actuation 2 puff inhalation QID PRN 04/13/24 aerosol inhaler shortness of breath or wheezing #6.7 grams acetone (urine) test (Ketone Urine #25 ea 06/19/24 Test strips) blood-glucose,clinical biostatistics director,cont #1 ea 06/19/24 (Dexcom G7 Resolute Professional) glucagon 3 mg/actuation nasal 3 mg intranasal ONCE PRN 06/19/24 spray (Baqsimi) unresponsive hypoglycemia 30 days #2 ea blood-glucose sensor (Dexcom G7 #6 ea 01/17/25 Sensor device) insulin aspart U-100 100 unit/mL 1 sliding scale dose subcut 01/17/25 (3 mL) subcutaneous pen (Novolog TIDWMEAL 30 days #15 mL FlexPen U-100 Insulin aspart) pen needle, diabetic 32 gauge x #150 ea 01/17/25 blood sugar diagnostic (FreeStyle #100 ea 01/27/25 Lite Strips) blood-glucose meter (FreeStyle #1 ea 01/27/25 Lite Meter kit) lancets 28 gauge (FreeStyle #100 ea 01/27/25 Lancets) ketorolac 10 mg tablet 10 mg PO Q6H PRN pain 5 days #20 01/31/25 tabs ondansetron 4 mg disintegrating 4 mg PO Q6-8H PRN nausea and 01/31/25 tablet vomiting #14 tabs cyclobenzaprine 10 mg tablet 10 mg PO TID PRN muscle spasm #12 03/16/25 tabs lidocaine 5 % topical patch 1 patch topical DAILY #15 ea 03/16/25 (Lidoderm) naproxen 500 mg tablet 500 mg PO BID PRN pain #30 tabs 03/16/25 gabapentin 300 mg capsule 300 mg PO TID #14 caps 05/12/25 dexamethasone 4 mg tablet 4 mg PO BID #5 tabs 05/13/25 acetaminophen 500 mg capsule 1,000 mg (2 x 500 mg) PO Q8H PRN 06/22/25 fever or pain #14 caps cyclobenzaprine 10 mg tablet 10 mg PO TID PRN muscle spasm #14 06/22/25 tabs insulin degludec 200 unit/mL (3 20 unit (0.1 mL) subcut DAILY 30 08/01/25 mL) subcutaneous pen (Tresiba days #9 mL FlexTouch U-200 insulin) methocarbamol 500 mg tablet 1,000 mg (2 x 500 mg) PO QID #20 08/15/25 tabs ondansetron 4 mg disintegrating 4 mg PO Q8H PRN nausea and 08/15/25 tablet vomiting #10 tabs Allergies Allergy/AdvReac Type Severity Reaction Status Date / Time diphenhydramine (From Allergy Anaphylaxis Verified 08/15/25 16:30 Benadryl) haloperidol (From Haldol) Allergy Difficulty Verified 08/15/25 16:30 Swallowing lorazepam (From Ativan) AdvReac Difficulty Verified 08/15/25 16:30 Breathing metoclopramide (From Reglan) AdvReac Anxiety Verified 08/15/25 16:30 [facility] Past Medical History Medical History Depression Abdominal pain Dental infection Colitis DKA (diabetic ketoacidosis) Hyperglycemia 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 type 1 Surgical History History of esophagogastroduodenoscopy (EGD) Family History Family History Paternal Grandmother Breast cancer Family/Other Brain cancer Social History Social History Household Members: Other Household Members Other:: cousin Housing: House Do you presently have visiting nurse or other home services: No Alcohol intake: current Alcohol intake frequency: holidays/special occasions only Patient Tobacco Use Status: Former Tobacco user Tobacco use type: Cigarette Cigarette Packs Per Day: 0 Cigarettes Per Day: 0 Years Smoked: 10 e-Cigarette/Vaping Use: Currently Using Second Hand Smoke Exposure: No Substance Use Type: Marijuana Advance Directives: No Advance Directives Information Provided: Yes Do you have a plan to hurt others: No Plan service: No Current occupational status: employed 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 Physical Exam ED Vital Signs: Vital Signs - 24 hr 08/15/25 16:26 08/15/25 20:02 08/15/25 22:00 Temperature 99.0 F 98.9 F 98.5 F Pulse Rate 108 H 108 H 111 H Respiratory Rate 20 20 Blood Pressure 118/63 122/57 L 115/89 Pulse Oximetry 100 98 98 Oxygen Delivery Method Room Air Room Air Room Air 08/15/25 23:58 Temperature 98.5 F Pulse Rate 111 H Respiratory Rate 16 Blood Pressure 115/89 Pulse Oximetry 98 Oxygen Delivery Method Room Air BMI result Body Mass Index 19.0 Course Course Course Narrative: Rapid medical examination performed in triage by Nieves Aguilar PA-C: Patient is a 30 year old male presenting to the emergency department with back pain after a work place incident and epigastric pain. Detailed physical exam and review of systems are deferred to the resistance welder. EKG, labs, and swabs ordered. Patient placed back in the waiting room pending room availability and results. Medications Administered Discontinued Medications Generic Name Dose Route Start Last Admin Trade Name Wilfredo PRN Reason Stop Dose Admin Acetaminophen 975 mg 08/15/25 23:23 08/15/25 23:31 Acetaminophen 325 Mg Tablet PO 08/15/25 23:24 975 mg ONCE ONE Administration Diazepam 2 mg 08/15/25 23:23 08/15/25 23:31 Diazepam 2 Mg Tablet PO 08/15/25 23:24 2 mg ONCE ONE Administration Ibuprofen 600 mg 08/15/25 22:19 08/15/25 22:26 Ibuprofen 600 Mg Tablet PO 08/15/25 22:20 Not Given ONCE ONE Medical Decision Making Lab Data 08/15/25 20:11 08/15/25 20:11 Labs: Lab Results 08/15/25 08/15/25 Range/Units 20:01 20:11 WBC 4.8 (4.8-10.8) X10*3/uL RBC 5.39 (4.60-5.80) X10*6/uL Hgb 14.0 (14.0-18.0) g/dl Hct 43.0 (42.0-52.0) % MCV 79.8 L (80.0-98.0) fL MCH 26.0 L (27.0-33.0) pg MCHC 32.6 (31.0-36.0) g/dl RDW 13.8 (11.0-16.0) % Plt Count 231 (160-400) X10*3/uL MPV 9.6 (9.4-12.4) fL Immature Gran % (Auto) 0.2 (0.0-0.4) % Neut % (Auto) 72.4 (45-73) % Lymph % (Auto) 15.1 L (20-40) % [place] % (Auto) 10.9 (2-11) % Eos % (Auto) 0.6 (0-4) % Baso % (Auto) 0.8 (0-2) % Lymph # (Auto) 0.7 L (1.2-4.9) X10*3/uL [place] # (Auto) 0.5 (0.1-1.2) X10*3/uL Eos # (Auto) 0.0 (0.0-0.4) X10*3/uL Baso # (Auto) 0.0 (0.0-0.2) X10*3/uL Abs Immat Gran (auto) 0.01 (0.00-0.03) X10*3/uL Absolute Neuts (auto) 3.4 (2.0-8.3) x10*3/uL Absolute Nucleated RBC 0.000 (0.0-0.012) X10*3/uL Nucleated RBC % (auto) 0.0 (0.0-0.2) /100WBC Sodium 136 (135-145) mmol/L Potassium 4.2 (3.3-5.1) mmol/L Chloride 101 (96-108) mmol/L Carbon Dioxide 24 (22-29) mmol/L Anion Gap 15 (12-20) BUN 14 (9-16) mg/dL Creatinine 0.86 (0.5-1.4) mg/dL Estim Creat Clear Calc 114.1 Estimated GFR > 60 POC Glucose 163 H (60-115) mg/dL Random Glucose 161 H (60-115) mg/dL Calcium 9.9 D (8.4-10.2) mg/dL Magnesium 1.9 (1.6-2.6) mg/dL Total Bilirubin 0.3 (0.0-1.0) mg/dL AST 28 (5-37) U/L ALT 20 (0-40) U/L Alkaline Phosphatase 87 (39-117) U/L Troponin I High Sens < 2.7 (<3.5-35.0) ng/L Total Protein 8.3 H (6.5-8.0) g/dL Albumin 5.0 (3.5-5.0) g/dL Influenza Type A (PCR) NEGATIVE (Negative) Influenza Type B (PCR) POSITIVE A (Negative) RSV RNA Qual (PCR) NEGATIVE (Negative) SARS-CoV-2 RNA (RT-PCR) NEGATIVE (Negative) Discharge Plan Discharge Clinical Impression: Influenza B, Work related injury, Contusion of thoracic wall, Generalized muscle weakness Patient Disposition: Home, Self-Care Instructions: Influenza (ED), Contusion in Adults (ED) Additional Instructions: Keep your mask on if you have to go into public for any reason while you are ill. Use Tylenol and Motrin around the clock for fever and body aches. Use methocarbamol for muscle spasms as needed. Be careful to mix these with cyclobenzaprine as the two combined can definitely make you drowsy. Use Zofran (ondansetron) as needed for nausea. Return to the emergency department with any new or worsening symptoms including: Worsening shortness of breath, continued fevers despite medications, inability to tolerate food or drink. Call 911 with any medical emergency. Prescriptions: New methocarbamol 500 mg tablet 1,000 mg PO QID Qty: 20 0RF ondansetron 4 mg tablet,disintegrating 4 mg PO Q8H PRN (Reason: nausea and vomiting) Qty: 10 0RF No Action (DME) Dexcom G7 Resolute Professional Misc See Rx Instructions .ROUTE .MEDSUPPLY Qty: 1 1RF Rx Instructions: As directed (DME) Ketone Urine Test Strip See Rx Instructions .ROUTE .MEDSUPPLY Qty: 25 3RF Rx Instructions: As directed prn glucose over 250, nausea/vomiting tid Baqsimi 3 mg/actuation spray,non-aerosol 3 mg intranasal ONCE MDD 6mg may repeat in 15 minutes PRN (Reason: unresponsive hypoglycemia) 30 Days Qty: 2 1RF (DME) FreeStyle Lite Strips Strip See Rx Instructions .Route Qty: 100 3RF Rx Instructions: As directed tests 3 X/day (DME) blood-glucose meter [FreeStyle Lite Meter] Kit See Rx Instructions .Route Qty: 1 0RF Rx Instructions: As directed (DME) lancets [FreeStyle Lancets] 28 gauge misc See Rx Instructions .Route Qty: 100 0RF Rx Instructions: As directed tests 3 X/day insulin degludec [Tresiba FlexTouch U-200] 200 unit/mL (3 mL) insulin pen 20 unit subcut DAILY 30 Days Qty: 9 11RF pantoprazole [Protonix] 40 mg tablet,delayed release (DR/EC) 40 mg PO DAILY@0630 promethazine 25 mg tablet 25 mg PO TID PRN (Reason: nausea/vomiting) ketorolac 10 mg tablet 10 mg PO Q6H PRN (Reason: pain) 5 Days Qty: 20 0RF ondansetron 4 mg tablet,disintegrating 4 mg PO Q6-8H PRN (Reason: nausea and vomiting) Qty: 14 0RF gabapentin 300 mg capsule 300 mg PO TID Qty: 14 0RF cyclobenzaprine 10 mg tablet 10 mg PO TID PRN (Reason: muscle spasm) Qty: 14 0RF acetaminophen 500 mg capsule 1,000 mg PO Q8H PRN (Reason: fever or pain) Qty: 14 0RF albuterol sulfate 90 mcg/actuation HFA aerosol inhaler 2 puff inhalation QID PRN (Reason: shortness of breath or wheezing) Qty: 6.7 0RF naproxen 500 mg tablet 500 mg PO BID PRN (Reason: pain) Qty: 30 0RF cyclobenzaprine 10 mg tablet 10 mg PO TID PRN (Reason: muscle spasm) Qty: 12 0RF lidocaine [Lidoderm] 5 % adhesive patch,medicated 1 patch topical DAILY Qty: 15 0RF Rx Instructions: leave on most painful area for up to 12 hrs dexamethasone 4 mg tablet 4 mg PO BID Qty: 5 0RF acetaminophen 500 mg tablet 500 mg PO Q6H PRN insulin aspart U-100 [Novolog FlexPen U-100 Insulin] 100 unit/mL (3 mL) insulin pen 1 sliding scale dose subcut TIDWMEAL MDD 44 units 30 Days Qty: 15 11RF Rx Instructions: 1 unit for every 35 points over 135 1 unit for every 15 carbohydrates (DME) Dexcom G7 Sensor Device See Rx Instructions .ROUTE .MEDSUPPLY Qty: 6 6RF Rx Instructions: As directed every 10 days (DME) pen needle, diabetic 32 gauge x 5/32 needle See Rx Instructions .ROUTE .MEDSUPPLY Qty: 150 6RF Rx Instructions: As directed qid mirtazapine 15 mg tablet 15 mg PO BEDTIME duloxetine 30 mg capsule,delayed release(DR/EC) 30 mg PO BID Interventions: ED Discharge Assessment Last Done: 08/15/25 23:58 Discharge Date/Time: 08/15/25 23:59 Print Language: Australian
--- NOTE | 2025-08-15 20:00 | ECG_ITS ---
Test Reason : epigastric pain Blood Pressure : */* mmHG Vent. Rate : 102 BPM Atrial Rate : 102 BPM P-R Int : 120 ms QRS Dur : 88 ms QT Int : 334 ms P-R-T Axes : 88 -39 46 degrees QTcB Int : 435 ms Sinus tachycardia Right atrial enlargement Left axis deviation Pulmonary disease pattern Abnormal ECG When compared with ECG of 11-May-2025 21:16, No significant change was found Referred By: Nieves Aguilar Electronically Signed By: ESTRELLA ELIAS MD
[2025-08-15 20:02] VITALS: BP 122/57; PULSE 108; RESP 20; TEMP 37.2; O2SAT 98
[2025-08-15 20:05] LABS: Glucose, Whole Blood 163 mg/dL (60-115)
[2025-08-15 20:21] LABS: MANUAL DIFF FLAG NO
[2025-08-15 20:22] LABS: Hematocrit 43.0 % (42.0-52.0); Hemoglobin 14.0 g/dl (14.0-18.0); Imm Gran Abs Auto 0.01 X10*3/uL (0.00-0.03); Imm Gran Pct Auto 0.2 % (0.0-0.4); Lymphocytes Absolute Auto 0.7 X10*3/uL (1.2-4.9); Mean Corpuscular HGB Conc 32.6 g/dl (31.0-36.0); Mean Corpuscular Hemoglobin 26.0 pg (27.0-33.0); Mean Corpuscular Volume 79.8 fL (80.0-98.0); NRBC Abs Auto 0.000 X10*3/uL (0.0-0.012); NRBC Pct Auto 0.0 /100WBC (0.0-0.2); Platelet Count 231 X10*3/uL (160-400); Red Blood Count 5.39 X10*6/uL (4.60-5.80); White Blood Count 4.8 X10*3/uL (4.8-10.8)
[2025-08-15 20:36] LABS: Alanine Aminotransferase 20 U/L (0-40); Albumin Level 5.0 g/dL (3.5-5.0); Alkaline Phosphatase 87 U/L (39-117); Anion Gap 15 (12-20); Aspartate Amino Transferase 28 U/L (5-37); Blood Urea Nitrogen 14 mg/dL (9-16); Calcium 9.9 mg/dL (8.4-10.2); Carbon Dioxide 24 mmol/L (22-29); Chloride 101 mmol/L (96-108); Creatinine Clr Calc Pharmacy 114.1; Estimated Glomerular Filt Rate > 60; Magnesium 1.9 mg/dL (1.6-2.6); Potassium 4.2 mmol/L (3.3-5.1); Sodium 136 mmol/L (135-145); Total Protein 8.3 g/dL (6.5-8.0)
[2025-08-15 20:50] LABS: Troponin-I High Sensitivity < 2.7 ng/L (<3.5-35.0)
[2025-08-15 21:36] LABS: Resp Syncy Virus RNA Qual PCR NEGATIVE (Negative); SARS COV2 PCR INHOUSE NEGATIVE (Negative)
[2025-08-15 22:00] VITALS: BP 115/89; PULSE 111; TEMP 36.9; O2SAT 98
[2025-08-15 23:58] VITALS: BP 115/89; PULSE 111; RESP 16; TEMP 36.9; O2SAT 98
== END 2025-08-15 23:59 | disposition home or self-care (01) ==
PROVIDERS: Physician Assistant Medical; Emergency Provider Emergency Medicine
DX: J10.1 Influenza due to other identified influenza virus with other respiratory manifestations (principal); S20.20XA Contusion of thorax, unspecified, initial encounter; X58.XXXA Exposure to other specified factors, initial encounter; Y93.9 Activity, unspecified; Y92.9 Unspecified place or not applicable; R53.1 Weakness; Z87.891 Personal history of nicotine dependence
CPT/HCPCS: 36415; 72072; 72100; 80053; 82947; 83735; 84484; 85025; 87637; 93005; 99283; 99284

== ENCOUNTER → 2025-08-15 17:29 | Outpatient (BNV) | payer MEDICAID, SELFPAY | PROVIDERS: Visit Provider Radiology Diagnostic Radiology | DX: M54.50 Low back pain, unspecified (principal); M54.6 Pain in thoracic spine | CPT/HCPCS: 72072; 72100 ==

== ENCOUNTER → 2025-08-15 20:00 | Outpatient (BNV) | payer MEDICAID, SELFPAY | PROVIDERS: Emergency Provider Emergency Medicine; Visit Provider Internal Medicine Cardiovascular Disease | DX: I51.7 Cardiomegaly (principal); R00.0 Tachycardia, unspecified | CPT/HCPCS: 93010 ==

== ENCOUNTER 2025-08-20 15:12 | Emergency (ER) | payer MEDICAID, SELFPAY ==
--- NOTE | ~2025-08-20 | XR_ITS ---
EXAMINATION: XR CHEST CLINICAL INFORMATION: sob COMPARISON: Previous chest x-ray April 2025 TECHNIQUE: 2 views of the chest were obtained. FINDINGS: No significant abnormality is noted involving the heart, lungs, mediastinum, bony thorax or soft tissues. XR/XR chest 2V IMPRESSION: Unremarkable examination. Electronically signed by: Emilie Suarez MD 08/20/2025 03:[address] [facility]
[2025-08-20 15:20] VITALS: BP 118/81; PULSE 100; O2SAT 100
--- NOTE | 2025-08-20 15:37 | ED_ITS ---
HPI - URI/Sore Throat General Chief Complaint: General Medical Stated Complaint: flu symptoms, dizzy, cough, pain in both shoulders Related Data Home Medications ?Medication ?Instructions ?Recorded ?Confirmed pantoprazole 40 mg tablet,delayed 40 mg PO DAILY@0630 12/19/22 01/31/25 release (Protonix) promethazine 25 mg tablet 25 mg PO TID PRN nausea/vomi ting 01/23/23 01/31/25 acetaminophen 500 mg tablet 500 mg PO Q6H PRN 04/09/24 01/31/25 duloxetine 30 mg capsule,delayed 30 mg PO BID 06/05/25 release mirtazapine 15 mg tablet 15 mg PO BEDTIME 06/05/25 Previous Rx's ?Medication ?Instructions ?Recorded albuterol sulfate 90 mcg/actuation 2 puff inhalation Q ID PRN 04/13/24 aerosol inhaler shortness of breath or wheez ing #6.7 grams acetone (urine) test (Ketone Urine #25 ea 06/19/24 Test strips) blood-glucose,glue spreader,cont #1 ea 06/19/24 (Dexcom G7 Office Clin Asst) glucagon 3 mg/actuation nasal 3 mg intranasal ONCE PRN 06/19/24 spray (Baqsimi) unresponsive hypoglycemia 30 days #2 ea blood-glucose sensor (Dexcom G7 #6 ea 01/17/25 Sensor device) insulin aspart U-100 100 unit/mL 1 sliding scale dose subcut 01/17/25 (3 mL) subcutaneous pen (Novolog TIDWMEAL 30 days #15 mL FlexPen U-100 Insulin aspart) pen needle, diabetic 32 gauge x #150 ea 01/17/25 blood sugar diagnostic (FreeStyle #100 ea 01/27/25 Lite Strips) blood-glucose meter (FreeStyle #1 ea 01/27/25 Lite Meter kit) lancets 28 gauge (FreeStyle #100 ea 01/27/25 Lancets) ketorolac 10 mg tablet 10 mg PO Q6H PRN pain 5 days #20 01/31/25 tabs ondansetron 4 mg disintegrating 4 mg PO Q6-8H PRN naus ea and 01/31/25 tablet vomiting #14 tabs cyclobenzaprine 10 mg tablet 10 mg PO TID PRN muscle s pasm #12 03/16/25 tabs lidocaine 5 % topical patch 1 patch topical DAILY #15 ea 03/16/25 (Lidoderm) naproxen 500 mg tablet 500 mg PO BID PRN pain #30 t abs 03/16/25 gabapentin 300 mg capsule 300 mg PO TID #14 caps 05/12 dexamethasone 4 mg tablet 4 mg PO BID #5 tabs 05/13/25 acetaminophen 500 mg capsule 1,000 mg (2 x 500 mg) PO Q8H PRN 06/22/25 fever or pain #14 caps cyclobenzaprine 10 mg tablet 10 mg PO TID PRN muscle s pasm #14 06/22/25 tabs insulin degludec 200 unit/mL (3 20 unit (0.1 mL) subcu t DAILY 30 08/01/25 mL) subcutaneous pen (Tresiba days #9 mL FlexTouch U-200 insulin) methocarbamol 500 mg tablet 1,000 mg (2 x 500 mg) PO Q ID #20 08/15/25 tabs ondansetron 4 mg disintegrating 4 mg PO Q8H PRN nausea and 08/15/25 tablet vomiting #10 tabs Allergies Allergy/AdvReac Type Severity Reaction Status Date / Time diphenhydramine (From Allergy Anaphylaxis Verified 08/20/25 15:40 Benadryl) haloperidol (From Haldol) Allergy Difficulty Verified 08/20/25 15:40 Swallowing lorazepam (From Ativan) AdvReac Difficulty Verified 08/20/25 15:40 Breathing metoclopramide (From Reglan) AdvReac Anxiety Verified 08/20/25 15:40 [facility] Past Medical History Medical History Depression Abdominal pain Dental infection Colitis DKA (diabetic ketoacidosis) Hyperglycemia 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 type 1 Surgical History History of esophagogastroduodenoscopy (EGD) Family History Family History Paternal Grandmother Breast cancer Family/Other Brain cancer Social History Social History Household Members: Other Household Members Other:: cousin Housing: House Do you presently have visiting nurse or other home services: No Alcohol intake: current Alcohol intake frequency: holidays/special occasions only Patient Tobacco Use Status: Former Tobacco user Tobacco use type: Cigarette Cigarette Packs Per Day: 0 Cigarettes Per Day: 0 Years Smoked: 10 e-Cigarette/Vaping Use: Currently Using Second Hand Smoke Exposure: No Substance Use Type: Marijuana Advance Directives: No Advance Directives Information Provided: No service: No Current occupational status: employed 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 Full HPI, ROS and PE to be performed by primary ED provider. 30-year-old male with a past medical history of diabetes, colitis, +Flu B on 08/15/25 presenting to the ED c/o lightheadedness, weakness, pre-syncope, cough, decreased p.o. intake, SOB since flu diagnosis. PE: In wheelchair, NAD, nontoxic appearing, afebrile, in no respiratory distress. Talking in complete sentences Plan: EKG, labs, UA, orthostatics Medical Decision Making Lab Data 08/20/25 16:04 08/20/25 16:04 Labs: Lab Results 08/20/25 Range/Units 16:04 WBC 7.1 (4.8-10.8) X10*3/uL RBC 5.62 (4.60-5.80) X10*6/uL Hgb 14.5 (14.0-18.0) g/dl Hct 43.6 (42.0-52.0) % MCV 77.6 L (80.0-98.0) fL MCH 25.8 L (27.0-33.0) pg MCHC 33.3 (31.0-36.0) g/dl RDW 13.2 (11.0-16.0) % Plt Count 265 (160-400) X10*3/uL MPV 10.6 (9.4-12.4) fL Immature Gran % (Auto) 1.1 H (0.0-0.4) % Neut % (Auto) 63.5 (45-73) % Lymph % (Auto) 27.8 (20-40) % [place] % (Auto) 6.7 (2-11) % Eos % (Auto) 0.6 (0-4) % Baso % (Auto) 0.3 (0-2) % Lymph # (Auto) 2.0 (1.2-4.9) X10*3/uL [place] # (Auto) 0.5 (0.1-1.2) X10*3/uL Eos # (Auto) 0.0 (0.0-0.4) X10*3/uL Baso # (Auto) 0.0 (0.0-0.2) X10*3/uL Abs Immat Gran (auto) 0.08 H (0.00-0.03) X10*3/uL Absolute Neuts (auto) 4.5 (2.0-8.3) x10*3/uL Absolute Nucleated RBC 0.000 (0.0-0.012) X10*3/uL Nucleated RBC % (auto) 0.0 (0.0-0.2) /100WBC Smear Tech's Comments VERIFIED Sodium 137 (135-145) mmol/L Potassium 4.1 (3.3-5.1) mmol/L Chloride 99 (96-108) mmol/L Carbon Dioxide 27 (22-29) mmol/L Anion Gap 15 (12-20) BUN 18 H (9-16) mg/dL Creatinine 0.92 (0.5-1.4) mg/dL Estim Creat Clear Calc 121.6 Estimated GFR > 60 Random Glucose 167 H (60-115) mg/dL Calcium 9.9 (8.4-10.2) mg/dL Magnesium 2.0 (1.6-2.6) mg/dL Total Bilirubin 0.5 (0.0-1.0) mg/dL Direct Bilirubin 0.2 (0.0-0.5) mg/dL AST 24 (5-37) U/L ALT 12 (0-40) U/L Alkaline Phosphatase 90 (39-117) U/L Total Creatine Kinase 79 (38-174) U/L Total Protein 8.1 H (6.5-8.0) g/dL Albumin 4.7 (3.5-5.0) g/dL Discharge Plan Discharge Clinical Impression: Upper respiratory symptom Patient Disposition: Left W/O Completing Treatment Prescriptions: No Action (DME) Dexcom G7 Office Clin Asst Misc See Rx Instructions .ROUTE .MEDSUPPLY Qty: 1 1RF Rx Instructions: As directed (DME) Ketone Urine Test Strip See Rx Instructions .ROUTE .MEDSUPPLY Qty: 25 3RF Rx Instructions: As directed prn glucose over 250, nausea/vomiting tid Baqsimi 3 mg/actuation spray,non-aerosol 3 mg intranasal ONCE MDD 6mg may repeat in 15 minutes PRN (Reason: unresponsive hypoglycemia) 30 Days Qty: 2 1RF (DME) FreeStyle Lite Strips Strip See Rx Instructions .Route Qty: 100 3RF Rx Instructions: As directed tests 3 X/day (DME) blood-glucose meter [FreeStyle Lite Meter] Kit See Rx Instructions .Route Qty: 1 0RF Rx Instructions: As directed (DME) lancets [FreeStyle Lancets] 28 gauge misc See Rx Instructions .Route Qty: 100 0RF Rx Instructions: As directed tests 3 X/day insulin degludec [Tresiba FlexTouch U-200] 200 unit/mL (3 mL) insulin pen 20 unit subcut DAILY 30 Days Qty: 9 11RF pantoprazole [Protonix] 40 mg tablet,delayed release (DR/EC) 40 mg PO DAILY@0630 promethazine 25 mg tablet 25 mg PO TID PRN (Reason: nausea/vomiting) ketorolac 10 mg tablet 10 mg PO Q6H PRN (Reason: pain) 5 Days Qty: 20 0RF ondansetron 4 mg tablet,disintegrating 4 mg PO Q6-8H PRN (Reason: nausea and vomiting) Qty: 14 0RF gabapentin 300 mg capsule 300 mg PO TID Qty: 14 0RF cyclobenzaprine 10 mg tablet 10 mg PO TID PRN (Reason: muscle spasm) Qty: 14 0RF acetaminophen 500 mg capsule 1,000 mg PO Q8H PRN (Reason: fever or pain) Qty: 14 0RF albuterol sulfate 90 mcg/actuation HFA aerosol inhaler 2 puff inhalation QID PRN (Reason: shortness of breath or wheezing) Qty: 6.7 0RF naproxen 500 mg tablet 500 mg PO BID PRN (Reason: pain) Qty: 30 0RF cyclobenzaprine 10 mg tablet 10 mg PO TID PRN (Reason: muscle spasm) Qty: 12 0RF lidocaine [Lidoderm] 5 % adhesive patch,medicated 1 patch topical DAILY Qty: 15 0RF Rx Instructions: leave on most painful area for up to 12 hrs dexamethasone 4 mg tablet 4 mg PO BID Qty: 5 0RF methocarbamol 500 mg tablet 1,000 mg PO QID Qty: 20 0RF ondansetron 4 mg tablet,disintegrating 4 mg PO Q8H PRN (Reason: nausea and vomiting) Qty: 10 0RF acetaminophen 500 mg tablet 500 mg PO Q6H PRN insulin aspart U-100 [Novolog FlexPen U-100 Insulin] 100 unit/mL (3 mL) insulin pen 1 sliding scale dose subcut TIDWMEAL MDD 44 units 30 Days Qty: 15 11RF Rx Instructions: 1 unit for every 35 points over 135 1 unit for every 15 carbohydrates (DME) Dexcom G7 Sensor Device See Rx Instructions .ROUTE .MEDSUPPLY Qty: 6 6RF Rx Instructions: As directed every 10 days (DME) pen needle, diabetic 32 gauge x 5/32 needle See Rx Instructions .ROUTE .MEDSUPPLY Qty: 150 6RF Rx Instructions: As directed qid mirtazapine 15 mg tablet 15 mg PO BEDTIME duloxetine 30 mg capsule,delayed release(DR/EC) 30 mg PO BID Discharge Date/Time: 08/20/25 18:28
[2025-08-20 15:39] VITALS: BP 110/60; PULSE 106; RESP 16; TEMP 36.9; O2SAT 100; BMI 21.7
--- NOTE | 2025-08-20 15:39 | ECG_ITS ---
Test Reason : PRESYNCOPE Blood Pressure : */* mmHG Vent. Rate : 100 BPM Atrial Rate : 100 BPM P-R Int : 120 ms QRS Dur : 94 ms QT Int : 346 ms P-R-T Axes : 87 -52 49 degrees QTcB Int : 446 ms Normal sinus rhythm Right atrial enlargement Borderline ECG When compared with ECG of 15-Aug-2025 20:04, No significant change was found Referred By: Josi De La Garza Electronically Signed By: ABIODUN BENSON
--- NOTE | 2025-08-20 15:47 | MHC.EDTECH ---
EKG delayed, pt in restroom
[2025-08-20 16:27] LABS: Alanine Aminotransferase 12 U/L (0-40); Albumin Level 4.7 g/dL (3.5-5.0); Alkaline Phosphatase 90 U/L (39-117); Anion Gap 15 (12-20); Aspartate Amino Transferase 24 U/L (5-37); Blood Urea Nitrogen 18 mg/dL (9-16); Calcium 9.9 mg/dL (8.4-10.2); Carbon Dioxide 27 mmol/L (22-29); Chloride 99 mmol/L (96-108); Creatinine Clr Calc Pharmacy 121.6; Estimated Glomerular Filt Rate > 60; Magnesium 2.0 mg/dL (1.6-2.6); Potassium 4.1 mmol/L (3.3-5.1); Sodium 137 mmol/L (135-145); Total Protein 8.1 g/dL (6.5-8.0)
[2025-08-20 17:06] LABS: Hematocrit 43.6 % (42.0-52.0); Hemoglobin 14.5 g/dl (14.0-18.0); Imm Gran Abs Auto 0.08 X10*3/uL (0.00-0.03); Imm Gran Pct Auto 1.1 % (0.0-0.4); Lymphocytes Absolute Auto 2.0 X10*3/uL (1.2-4.9); MANUAL DIFF FLAG SCAN; Mean Corpuscular HGB Conc 33.3 g/dl (31.0-36.0); Mean Corpuscular Hemoglobin 25.8 pg (27.0-33.0); Mean Corpuscular Volume 77.6 fL (80.0-98.0); NRBC Abs Auto 0.000 X10*3/uL (0.0-0.012); NRBC Pct Auto 0.0 /100WBC (0.0-0.2); Platelet Count 265 X10*3/uL (160-400); Red Blood Count 5.62 X10*6/uL (4.60-5.80); SCAN SMEAR FLAG 1; White Blood Count 7.1 X10*3/uL (4.8-10.8)
--- OUTSIDE RECORDS SUMMARY | 2025-08-20 17:57 | XMS_ITS | Encounter Summary ---
Author Organization [employer] Address [address] [facility] [address] [place] [address] Care Team Providers Care Leak Gang Supervisor Name Role Phone Name, Everett ROSE Primary Care Provider [phone] Sahil Chen CNP Primary Care Provider [phone] Reason for Visit * Reason Comments Med Refill Encounter Details Date Type Department Care Team (Late st Contact Info) Description 05/03/2024 Refill [facility] [address] [place], [place] [phone] Amna Urrutia FNP [address] [place] [address] Type 1 diabetes mellitus with hyperglycemia (CMS/[facility]) Social History Tobacco Use Types [...] documented as of this encounter Care Teams Leak Gang Supervisor Relationship Specialty Start Date End Date Name, MD Everett [address] [place] [address] PCP - General Internal Medicine 04/19/24 10/08/24 Sahil Chen CNP [address] [place] [address] PCP - General Family Medicine 10/09/24 Chris Pack Jr Staff PsychiatristCreative Writer 09/04/24 documented as of this encounter
--- OUTSIDE RECORDS SUMMARY | 2025-08-20 17:57 | XMS_ITS | Encounter Summary ---
Author Organization [employer] Address [address] [facility] 7t [place] [address] Care Team Providers Care Flake Drier Name Role Phone Amna Urrutia Primary Care Provider [phone] Name, Everett ROSE Primary Care Provider [phone] Sahil Chen CNP Primary Care Provider [phone] Reason for Visit * Reason Onset Date Comments Appointment Request 09/08/2023 Encounter Details Date Type Department Care Team ([facility] Contact Info) Description 09/08/2023 Telephone [facility] [address] [place] [address] Amna Urrutia FNP [address] [place] [address] Appointment Request Social History Tobacco Use Types [...] documented as of this encounter Care Teams Flake Drier Relationship Specialty Start Date End Date Amna Urrutia FNP [address] [place] [address] PCP - General Family Medicine 01/01/23 04/18/24 Everett Angulo MD [address] [place] [address] PCP - General Internal Medicine 04/19/24 10/08/24 Sahil Chen CNP [address] [place] [address] PCP - General Family Medicine 10/09/24 Chris Pack Jr Silverware AssemblerBreaker Oiler 1/15/25 documented as of this encounter
--- OUTSIDE RECORDS SUMMARY | 2025-08-20 17:57 | XMS_ITS | Encounter Summary ---
Author Organization [facility] Address [address] [place] [address] Phone Care Team Providers Care Deputy District Customs Director Name Role Phone Santos Mueller MD Primary Care Provider [phone] Encounter Details Date Type Department Care Team (Late st Contact Info) Description 08/05/2024 Documentation Only [facility], [address] [place] [address] Jessica Sprague [address] [place] [address] Social History Tobacco Use Types [...] on filedocumented in this encounter Care Teams Deputy District Customs Director Relationship Specialty Start Date End Date Santos Mueller MD [address] [place] [address] PCP - General Emergency Medicine 07/28/23 documented as of this encounter
--- OUTSIDE RECORDS SUMMARY | 2025-08-20 17:57 | XMS_ITS | Encounter Summary ---
Author Organization [employer] Address [address] [facility] 7t [place] [address] Care Team Providers Care Automotive Brake Specialist Name Role Phone Amna Urrutia Primary Care Provider [phone] Name, Everett ROSE Primary Care Provider [phone] Sahil Chen CNP Primary Care Provider [phone] Reason for Visit * Reason Onset Date Comments Med Refill 05/30/2023 Encounter Details Date Type Department Care Team (Late st Contact Info) Description 05/30/2023 Refill [facility] [address] [place] [address] Amna Urrutia FNP [address] [place] [address] Social History Tobacco Use Types Packs/Day Years [...] as of this encounter Care Teams Automotive Brake Specialist Relationship Specialty Start Date End Date Amna Urrutia FNP [address] [place] [address] PCP - General Family Medicine 01/01/23 04/18/24 Everett Angulo MD [address] [place] [address] PCP - General Internal Medicine 04/19/24 10/08/24 Sahil Chen CNP [address] [place] [address] PCP - General Family Medicine 10/09/24 Chris Pack Jr Residential Sales ExecutiveStaff Forester 09/04/24 documented as of this encounter
--- OUTSIDE RECORDS SUMMARY | 2025-08-20 17:57 | XMS_ITS | Encounter Summary ---
Author Organization [employer] Address [address] 7[address] [place] [address] Care Team Providers Care Home Sales Consultant Name Role Phone Amna Urrutia Primary Care Provider [phone] Name, Everett ROSE Primary Care Provider [phone] Sahil Chen CNP Primary Care Provider [phone] Reason for Visit * Reason Onset Date Comments Med Refill 07/17/2023 Encounter Details Date Type Department Care Team (Late st Contact Info) Description 07/17/2023 Refill [facility] [address] [place] [address] Amna Urrutia FNP [address] [place] [address] Social History Tobacco Use Types Packs/Day Years [...] as of this encounter Care Teams Home Sales Consultant Relationship Specialty Start Date End Date Amna Urrutia FNP [address] [place] [address] PCP - General Family Medicine 01/01/23 04/18/24 Everett Angulo MD [address] [place] [address] PCP - General Internal Medicine 04/19/24 10/08/24 Sahil Chen CNP [address] [place] [address] PCP - General Family Medicine 10/09/24 Chris Pack Jr Dock Or Pier LaborerProperty Management Intern 09/04/24 documented as of this encounter
--- OUTSIDE RECORDS SUMMARY | 2025-08-20 17:57 | XMS_ITS | Encounter Summary ---
Author Organization [employer] Address [address] [facility] [address] 7t [place] [address] Care Team Providers Care Manager Community Name Role Phone Amna Urrutia Primary Care Provider [phone] Adele, Everett ROSE Primary Care Provider [phone] Sahil Chen CNP Primary Care Provider [phone] Reason for Visit * Reason Onset Date Comments Med Refill 07/28/2023 Encounter Details Date Type Department Care Team (Late st Contact Info) Description 07/28/2023 Refill [facility] [address] [place] [address] Denice Rubin MD [address] [place] [address] Social History Tobacco Use Types Packs/Day Years [...] as of this encounter Care Teams Manager Community Relationship Specialty Start Date End Date Amna Urrutia FNP [address] [place] [address] PCP - General Family Medicine 01/01/23 04/18/24 Everett Angulo MD [address] [place] [address] PCP - General Internal Medicine 04/19/24 10/08/24 Sahil Chen CNP [address] [place] [address] PCP - General Family Medicine 10/09/24 Chris Pack Jr Executive Creative DirectorPain Coordinator 09/04/24 documented as of this encounter
--- OUTSIDE RECORDS SUMMARY | 2025-08-20 17:57 | XMS_ITS | Encounter Summary ---
Author Organization [employer] Address [address] [facility] [address] 7[address] [place] [address] Care Team Providers Care Scenery Builder Name Role Phone Amna Urrutia Primary Care Provider [phone] Name, Everett ROSE Primary Care Provider [phone] Sahil Chen CNP Primary Care Provider [phone] Reason for Visit * Reason Comments Med Refill Encounter Details Date Type Department Care Team ([facility] st Contact Info) Description 09/08/2023 Refill [facility] [address] [place], [place] [phone] Amna Urrutia FNP [address] [place] [address] Type 1 diabetes mellitus with hyperglycemia ([facility]) Social History Tobacco Use Types Packs/Day [...] documented as of this encounter Care Teams Scenery Builder Relationship Specialty Start Date End Date Amna Urrutia FNP [address] [place] [address] PCP - General Family Medicine 01/01/23 04/18/24 Everett Angulo MD [address] [place] [address] PCP - General Internal Medicine 04/19/24 10/08/24 Sahil Chen CNP [address] [place] [address] PCP - General Family Medicine 10/09/24 Chris Pack Jr Vineyard SupervisorWardrobe Assistant 09/04/24 documented as of this encounter
--- OUTSIDE RECORDS SUMMARY | 2025-08-20 17:57 | XMS_ITS | Clinical Summary ---
Author Organization [address] [facility] Address [address] [place] [address] Phone Care Team Providers Care Senior Principal Name Role Phone Sahil Chen NP Primary Care Provider [phone] Allergies Active Allergy Reactions Criticality Noted Date [...] 2:30 PM EST Office Visit Orthopedic Surgery [facility] [address] [address] Devan Alonso, DPEliecer [address] [address] Health Maintenance Due Date Last [...] topic Insurance MEDICAID - [place] Care Teams Senior Principal Relationship Specialty Start Date End Date Sahil Chen NP [address] [place] [address] PCP - General Family Medicine 01/01/25
--- OUTSIDE RECORDS SUMMARY | 2025-08-20 17:57 | XMS_ITS | Encounter Summary ---
Author Organization [employer] Address [address] [facility] [address]t [place] [address] Care Team Providers Care Second Rigger Name Role Phone Amna Urrutia Primary Care Provider [phone] Adele, Everett ROSE Primary Care Provider [phone] Sahil Chen CNP Primary Care Provider [phone] Encounter Details Date Type Department Care Team (Late st Contact Info) Description 06/28/2023 Orders Only [facility] [address] [place], [place] [phone] Santos Mueller MD [address] [place] [address] Social History Tobacco Use Types Packs/Day Years [...] documented as of this encounter Care Teams Second Rigger Relationship Specialty Start Date End Date Amna Urrutia FNP [address] [place] [address] PCP - General Family Medicine 01/01/23 04/18/24 Everett Angulo MD [address] [place] [address] PCP - General Internal Medicine 04/19/24 10/08/24 Sahil Chen CNP [address] [place] [address] PCP - General Family Medicine 10/09/24 Chris Pack Jr Foil CutterCasing Blower 09/04/24 documented as of this encounter
--- OUTSIDE RECORDS SUMMARY | 2025-08-20 17:57 | XMS_ITS | Encounter Summary ---
Author Organization [employer] Address [address] [facility] [address] [place] [address] Care Team Providers Care Manufacturing Accountant Name Role Phone Amna Urrutia Primary Care Provider [phone] Name, Everett ROSE Primary Care Provider [phone] Sahil Chen CNP Primary Care Provider [phone] Reason for Visit * Reason Onset Date Comments Med Refill 07/28/2023 Encounter Details Date Type Department Care Team (Late st Contact Info) Description 07/28/2023 Refill [facility] [address] [place] [address] Amna Urrutia FNP [address] [place] [address] Social History Tobacco Use Types Packs/Day Years [...] as of this encounter Care Teams Manufacturing Accountant Relationship Specialty Start Date End Date Amna Urrutia FNP [address] [place] [address] PCP - General Family Medicine 01/01/23 04/18/24 Everett Angulo MD [address] [place] [address] PCP - General Internal Medicine 04/19/24 10/08/24 Sahil Chen CNP [address] [place] [address] PCP - General Family Medicine 10/09/24 Chris Pack Jr Transplant CoordinatorPersonal Support Worker 09/04/24 documented as of this encounter
--- OUTSIDE RECORDS SUMMARY | 2025-08-20 17:57 | XMS_ITS | Encounter Summary ---
Author Organization [employer] Address [address] [facility] 7t [place] [address] Care Team Providers Care Central Office Equipment Installer Name Role Phone Amna Urrutia Primary Care Provider [phone] Adele, Everett ROSE Primary Care Provider [phone] Sahil Chen CNP Primary Care Provider [phone] Reason for Visit * Reason Onset Date Comments Reschedule 02/14/2024 Encounter Details Date Type Department Care Team ([facility] st Contact Info) Description 02/14/2024 Telephone [facility] [address] [place] [address] Amna Urrutia FNP [address] [place] [address] Reschedule Social History Tobacco Use Types Packs/Day [...] to reschedule 02/13 follow up extended appointment. Block And Case Maker attempted to reschedule but no availability. Please contact pt at [phone] documented in this encounter Plan of Treatment Not on file documented as of this encounter Visit Diagnoses Not on filedocumented in this encounter Additional Health Concerns Assessment Noted Time PHQ-9 Depression Total Score: 10 024 1:01 PM EDT documented as of this encounter Care Teams Central Office Equipment Installer Relationship Specialty Start Date End Date Amna Urrutia FNP [address] [place] [address] PCP - General Family Medicine 01/01/23 04/18/24 Everett Angulo MD [address] [place] [address] PCP - General Internal Medicine 04/19/24 10/08/24 Sahil Chen CNP [address] [place] [address] PCP - General Family Medicine 10/09/24 Chris Pack Jr Dental Patient CoordinatorRadiology Technologist 09/04/24 documented as of this encounter
--- OUTSIDE RECORDS SUMMARY | 2025-08-20 17:57 | XMS_ITS | Encounter Summary ---
Author Organization [employer] Address 75 [facility] 7t [place] [address] Care Team Providers Care Burrer Marker Axle Name Role Phone Amna Urrutia Primary Care Provider [phone] Adele, Everett ROSE Primary Care Provider [phone] Sahil Chen CNP Primary Care Provider [phone] Reason for Visit * Reason Onset Date Comments Med Refill 07/15/2023 Encounter Details Date Type Department Care Team (Late st Contact Info) Description 07/15/2023 Refill [facility] MEDICINE 230 [place] [address] Sandra Leal MD 230 [place] [address] Social History Tobacco Use Types Packs/Day Years [...] documented as of this encounter Care Teams Burrer Marker Axle Relationship Specialty Start Date End Date Amna Urrutia FNP 230 [place] [address] PCP - General Family Medicine 01/01/23 04/18/24 Everett Angulo MD 230 [place] [address] PCP - General Internal Medicine 04/19/24 10/08/24 Sahil Chen CNP [address] [place] [address] PCP - General Family Medicine 10/09/24 Chris Pack Jr Can Closing Machine OperatorOps Manager 09/04/24 documented as of this encounter
--- OUTSIDE RECORDS SUMMARY | 2025-08-20 17:57 | XMS_ITS | Encounter Summary ---
Author Organization [employer] Address [address] [facility] [address] 7t [place] [address] Care Team Providers Care Supervisory Historian Name Role Phone Amna Urrutia Primary Care Provider [phone] Adele, Everett ROSE Primary Care Provider [phone] Sahil Chen CNP Primary Care Provider [phone] Reason for Visit * Reason Comments Med Refill Encounter Details Date Type Department Care Team ([facility] st Contact Info) Description 05/30/2023 Refill [facility] MED[facility]INE [address] [place] [address] Amna Urrutia FNP [address] [place] [address] Social History Tobacco Use Types Packs/Day Years [...] documented as of this encounter Care Teams Supervisory Historian Relationship Specialty Start Date End Date Amna Urrutia FNP [address] [place] [address] PCP - General Family Medicine 01/01/23 04/18/24 Everett Angulo MD 230 [place] [address] PCP - General Internal Medicine 04/19/24 10/08/24 Sahil Chen CNP 230 [place] [address] PCP - General Family Medicine 10/09/24 Chris Pack Jr Executive CoordinatorTransformer Mechanic 09/04/24 documented as of this encounter
--- OUTSIDE RECORDS SUMMARY | 2025-08-20 17:57 | XMS_ITS | Encounter Summary ---
Author Organization [employer] Address 75 [facility] [address] 7t [place] [address] Care Team Providers Care Cycle Counter Name Role Phone Amna Urrutia Primary Care Provider [phone] Name, Everett ROSE Primary Care Provider [phone] Sahil Chen CNP Primary Care Provider [phone] Reason for Visit * Reason Comments Med Refill Encounter Details Date Type Department Care Team ([facility] st Contact Info) Description 10/04/2023 Refill [facility] MEDICINE [address] [place] [address] Amna Urrutia FNP [address] [place] [address] Type 1 diabetes mellitus with hyperglycemia ([facility]) Social History Tobacco [...] documented as of this encounter Care Teams Cycle Counter Relationship Specialty Start Date End Date Amna Urrutia FNP [address] [place] [address] PCP - General Family Medicine 01/01/23 04/18/24 Everett Angulo MD [address] [place] [address] PCP - General Internal Medicine 04/19/24 10/08/24 Sahil Chen CNP [address] [place] [address] PCP - General Family Medicine 10/09/24 Chris Pack Jr Auto Damage TraineeCompliance Field Technician 09/04/24 documented as of this encounter
--- OUTSIDE RECORDS SUMMARY | 2025-08-20 17:57 | XMS_ITS | Encounter Summary ---
Author Organization [employer] Address [address] [facility] [address] 7t [place] [address] Care Team Providers Care Intermission Coordinator Name Role Phone Sahil Chen CNP Primary Care Provider [phone] Reason for Visit * Reason Onset Date Comments Nurse Triage 03/17/2025 Encounter Details Date Type Department Care Team (Late st Contact Info) Description 03/17/2025 Telephone [facility] MEDICINE 230 [place] [address] Sahil Chen CNP [address] [place] [address] Nurse Triage Social History Tobacco Use Types [...] and testicular pain. Pt was seen in [facility] 03/16/25report is on the chart. ED [...] with good effect. ASK apt with PCP [place] @ 1000am. 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 Contact pt at [phone] documented in this encounter Plan of Treatment Not on file documented as of this encounter Visit Diagnoses Not on filedocumented in this encounter Additional Health Concerns Assessment Noted Time PHQ-9 Depression Total Score: 19 11/27/ 025 3:09 PM EDT documented as of this encounter Care Teams Intermission Coordinator Relationship Specialty Start Date End Date Sahil Chen CNP PCP - General Family Medicine 10/09/24 Chris Pack Jr Java J2Ee Technical LeadBatch Heat Treat Operator 09/04/24 documented as of this encounter
--- OUTSIDE RECORDS SUMMARY | 2025-08-20 17:57 | XMS_ITS | Encounter Summary ---
Author Organization [facility] Address [address] [place] [address] Phone Care Team Providers Care Wire Border Assembler Name Role Phone Santos Mueller MD Primary Care Provider [phone] Encounter Details Date Type Department Care Team (Late st Contact Info) Description 08/05/2024 Documentation Only [facility] [place], [address] [place] [address] Jessica Sprague [address] [place] [address] Social History Tobacco Use Types [...] on filedocumented in this encounter Care Teams Wire Border Assembler Relationship Specialty Start Date End Date Santos Mueller MD 230 [place] [address] PCP - General Emergency Medicine 07/28/23 documented as of this encounter
--- OUTSIDE RECORDS SUMMARY | 2025-08-20 17:57 | XMS_ITS | Encounter Summary ---
Author Organization [employer] Address [address] [facility] [address] 7t [place] [address] Care Team Providers Care Hanging Flags Decorator Name Role Phone Amna Urrutia Primary Care Provider [phone] Adele, Everett ROSE Primary Care Provider [phone] Sahil Chen CNP Primary Care Provider [phone] Reason for Visit * Reason Comments Med Refill Encounter Details Date Type Department Care Team ([facility] st Contact Info) Description 08/29/2023 Refill [facility] MEDICINE 230 [place] [address] Carlos Alberto Villavicencio MD 230 [place] [address] Type 1 diabetes mellitus with hyperglycemia (CMS/HCC) [...] documented as of this encounter Care Teams Hanging Flags Decorator Relationship Specialty Start Date End Date Amna Urrutia FNP 230 [place] [address] PCP - General Family Medicine 01/01/23 04/18/24 Everett Angulo MD [address] [place] [address] PCP - General Internal Medicine 04/19/24 10/08/24 Sahil Chen CNP 230 [place] [address] PCP - General Family Medicine 10/09/24 Chris Pack Jr Mold FillerSet Up Mechanic Stamping Machines 09/04/24 documented as of this encounter
--- OUTSIDE RECORDS SUMMARY | 2025-08-20 17:57 | XMS_ITS | Encounter Summary ---
Author Organization [employer] Address 75 [facility] 7t [place] [address] Care Team Providers Care Resin Coater Name Role Phone Amna Urrutia Primary Care Provider [phone] Everett Angulo MD Primary Care Provider [phone] Sahil Chen CNP Primary Care Provider [phone] Encounter Details Date Type Department Care Team (Late st Contact Info) Description 10/21/2022 Abstract [facility] ADULT D[facility]AL 230 [place] [address] Marycruz Osegurea DDS 230 [place] [address] Social History Tobacco Use Types Packs/Day Years [...] on filedocumented in this encounter Care Teams Resin Coater Relationship Specialty Start Date End Date Amna Urrutia FNP 230 [place] [address] PCP - General Family Medicine 01/01/23 04/18/24 Everett Angulo MD 230 [place] [address] PCP - General Internal Medicine 04/19/24 10/08/24 Sahil Chen CNP 230 [facility] [place] [address] PCP - General Family Medicine 10/09/24 Chris Pack Jr Brand LeadMeasurement Coordinator 09/04/24 documented as of this encounter
--- OUTSIDE RECORDS SUMMARY | 2025-08-20 17:57 | XMS_ITS | Encounter Summary ---
Author Organization [employer] Address [address] [facility] [address] 7t [place] [address] Care Team Providers Care Patient Account Specialist Name Role Phone Amna Urrutia Primary Care Provider [phone] Name, Everett ROSE Primary Care Provider [phone] Sahil Chen CNP Primary Care Provider [phone] Reason for Visit * Reason Comments Med Refill Encounter Details Date Type Department Care Team ([facility] st Contact Info) Description 09/11/2023 Refill [facility] MEDICINE 230 [place], [place] [phone] Amna Urrutia FNP 230 [place] [address] Type 1 diabetes mellitus with hyperglycemia ([facility]) Social History Tobacco Use [...] documented as of this encounter Care Teams Patient Account Specialist Relationship Specialty Start Date End Date Amna Urrutia FNP 230 [place] [address] PCP - General Family Medicine 01/01/23 04/18/24 Everett Angulo MD [address] [place] [address] PCP - General Internal Medicine 04/19/24 10/08/24 Sahil Chen CNP [address] [place] [address] PCP - General Family Medicine 10/09/24 Chris Pack Jr Scalp Treatment SpecialistCook Helper Preserves 09/04/24 documented as of this encounter
--- OUTSIDE RECORDS SUMMARY | 2025-08-20 17:57 | XMS_ITS | Encounter Summary ---
Author Organization [employer] Address [address] [facility] [address] 7t [place] [address] Care Team Providers Care Nascar Pit Crew Person Name Role Phone Amna Urrutia Primary Care Provider [phone] Adele, Everett ROSE Primary Care Provider [phone] Sahil Chen CNP Primary Care Provider [phone] Reason for Visit * Reason Onset Date Comments Med Refill 07/15/2023 Encounter Details Date Type Department Care Team (Late st Contact Info) Description 07/15/2023 Refill [facility] 230 [place], [place] [phone] Amna Urrutia FNP 230 [place] [address] Social History Tobacco Use Types Packs/Day Years [...] documented as of this encounter Care Teams Nascar Pit Crew Person Relationship Specialty Start Date End Date Amna Urrutia FNP 230 [place] [address] PCP - General Family Medicine 01/01/23 04/18/24 Everett Angulo MD 230 [place] [address] PCP - General Internal Medicine 04/19/24 10/08/24 Sahil Chen CNP 230 [place] [address] PCP - General Family Medicine 10/09/24 Chris Pack Jr Warehouse AdministratorCesspool Cleaner 09/04/24 documented as of this encounter
--- OUTSIDE RECORDS SUMMARY | 2025-08-20 17:57 | XMS_ITS | Encounter Summary ---
Author Organization [employer] Address [address] [facility] [address] 7t [place] [address] Care Team Providers Care Lacquer Coater Name Role Phone Amna Urrutia Primary Care Provider [phone] Name, Everett ROSE Primary Care Provider [phone] Sahil Chen CNP Primary Care Provider [phone] Reason for Visit * Reason Onset Date Comments Med Refill 09/27/2023 Encounter Details Date Type Department Care Team (Late st Contact Info) Description 09/27/2023 Refill [facility] MEDICINE 230 [place] [address] Amna Urrutia FNP 230 [place] [address] Type 1 diabetes mellitus with hyperglycemia ([facility]/HCC) Social History Tobacco Use Types Packs/Day [...] documented as of this encounter Care Teams Lacquer Coater Relationship Specialty Start Date End Date Amna Urrutia FNP [address] [place] [address] PCP - General Family Medicine 01/01/23 04/18/24 Everett Angulo MD [address] [place] [address] PCP - General Internal Medicine 04/19/24 10/08/24 Sahil Chen CNP [address] [place] [address] PCP - General Family Medicine 10/09/24 Chris Pack Jr Alumina Plant SupervisorIntegrated Specialist 09/04/24 documented as of this encounter
--- OUTSIDE RECORDS SUMMARY | 2025-08-20 17:57 | XMS_ITS | Encounter Summary ---
Author Organization [employer] Address [address] [facility] [address] 7t [place] [address] Care Team Providers Care Back Winder Name Role Phone Name, Everett ROSE Primary Care Provider [phone] Sahil Chen CNP Primary Care Provider [phone] Encounter Details Date Type Department Care Team (Late st Contact Info) Description 04/21/2024 Orders Only [facility] [address] [place], [place] [phone] Amna Urrutia FNP [address] [place], [place] [phone] Social History Tobacco Use Types Packs/Day Years [...] documented as of this encounter Care Teams Back Winder Relationship Specialty Start Date End Date Name, MD Everett 230 [place] [address] PCP - General Internal Medicine 04/19/24 10/08/24 Sahil Chen CNP 230 [place] [address] PCP - General Family Medicine 10/09/24 Chris Pack Jr Vest TailorUnderwriting Operations Manager 09/04/24 documented as of this encounter
--- OUTSIDE RECORDS SUMMARY | 2025-08-20 17:57 | XMS_ITS | Encounter Summary ---
Author Organization [facility] Address [address] [place] [address] Phone Care Team Providers Care Cradle Slide Maker Name Role Phone Santos Mueller MD Primary Care Provider [phone] Encounter Details Date Type Department Care Team (Late st Contact Info) Description 07/28/2023 Documentation Only [facility] [place], [address] [place] [address] Santos Mueller MD [address] [place] [address] Social History Tobacco Use Types [...] on filedocumented in this encounter Care Teams Cradle Slide Maker Relationship Specialty Start Date End Date Santos Mueller MD [address] [place] [address] PCP - General Emergency Medicine 07/28/23 documented as of this encounter
--- OUTSIDE RECORDS SUMMARY | 2025-08-20 17:57 | XMS_ITS | Clinical Summary ---
Author Organization [facility], Address [address] [place] [address] [place] [address] Phone Care Team Providers Care Emblem Cutter Name Role Phone Santos Mueller MD Primary Care Provider [phone] Allergies Active Allergy Reactions Criticality Noted Date [...] 2025 06/08/2016 Insurance Medicaid [place] Care Teams Emblem Cutter Relationship Specialty Start Date End Date Santos Mueller MD [address] [place] [phone] PCP - General Emergency Medicine 07/28/23
--- OUTSIDE RECORDS SUMMARY | 2025-08-20 17:57 | XMS_ITS | Encounter Summary ---
Author Organization [employer] Address 75 [facility] 7t [place] [address] Care Team Providers Care Pharmacy Data Analyst Name Role Phone Amna Urrutia Primary Care Provider [phone] Adele, Everett ROSE Primary Care Provider [phone] Sahil Chen CNP Primary Care Provider [phone] Reason for Visit * Reason Onset Date Comments Med Refill 07/17/2023 Encounter Details Date Type Department Care Team (Late st Contact Info) Description 07/17/2023 Refill [facility] MEDICINE [address] [place] [address] Sandra Leal MD [address] [place] [address] Social History Tobacco Use Types Packs/Day Years [...] as of this encounter Care Teams Pharmacy Data Analyst Relationship Specialty Start Date End Date Amna Urrutia FNP 230 [place] [address] PCP - General Family Medicine 01/01/23 04/18/24 Everett Angulo MD 230 [place] [address] PCP - General Internal Medicine 04/19/24 10/08/24 Sahil Chen CNP 230 [place] [address] PCP - General Family Medicine 10/09/24 Chris Pack Jr Dye Padder OperatorCyber Incident Responder 09/04/24 documented as of this encounter
--- OUTSIDE RECORDS SUMMARY | 2025-08-20 17:57 | XMS_ITS | Clinical Summary ---
Author Organization [facility] Address [address] [place] [address] Phone Care Team Providers Care Tow Truck Operator Name Role Phone Sahil Chen STAMP PAD FINISHER Primary Care Provider [phone] Allergies Active Allergy Reactions Criticality Noted Date [...] [place] Care Teams Tow Truck Operator Relationship Specialty Start Date End Date Sahil Chen NP [address] [place] [address] PCP - General Nurse Practitioner 04/02/25 Additional Source Comments The information contained in this document represents components of the legal health record. It is not the complete legal health record.[facility]
--- OUTSIDE RECORDS SUMMARY | 2025-08-20 17:57 | XMS_ITS | Encounter Summary ---
Author Organization [employer] Address 75 [facility] 7t [place] [address] Care Team Providers Care Data Entry Processor Name Role Phone Amna Urrutia Primary Care Provider [phone] Adele, Everett ROSE Primary Care Provider [phone] Sahil Chen CNP Primary Care Provider [phone] Reason for Visit * Reason Onset Date Comments Nurse Triage 05/30/2023 Encounter Details Date Type Department Care Team ([facility] st Contact Info) Description 05/30/2023 Telephone [facility] MEDICINE 230 [place] [address] Amna Urrutia FNP [address] [place] [address] Nurse Triage Social History Tobacco Use Types [...] obtain discharge summary for patient seen at [facility] 05/29/23 following head injury at work. Scheduled for follow up below Future Appointments Date Time Provider Department Center 05/31/2023 11:30 AM Denice Rubin MD [facility] * Telephone Encounter - Marline Vega RN - 05/30/2023 1:27 PM EDT Call to Bradford Torres, reports having been seen at [facility] 05/29 due to concussion that occurred [...] Center 05/31/2023 11:30 AM Denice Rubin MD [facility] Video visit offer not recorded Positive [...] and states is still in pain ( investment underwriter was un able to take all [...] documented as of this encounter Care Teams Data Entry Processor Relationship Specialty Start Date End Date Amna Urrutia FNP 230 [place] [address] PCP - General Family Medicine 01/01/23 04/18/24 Everett Angulo MD 230 [place] [address] PCP - General Internal Medicine 04/19/24 10/08/24 Sahil Chen CNP 230 [place] [address] PCP - General Family Medicine 10/09/24 Chris Pack Jr Audio Visual Collections CoordinatorAuto Air Conditioning Apprentice 09/04/24 documented as of this encounter
--- OUTSIDE RECORDS SUMMARY | 2025-08-20 17:57 | XMS_ITS | Encounter Summary ---
Author Organization [facility] Address [address] [place] [address] Phone Care Team Providers Care Technical System Analyst Name Role Phone Santos Mueller MD Primary Care Provider [phone] Encounter Details Date Type Department Care Team (Late st Contact Info) Description 08/05/2024 Documentation Only [facility] [place], [address] [place] [address] Jessica Sprague [address] [place] [address] Social History Tobacco Use Types [...] filedocumented in this encounter Care Teams Technical System Analyst Relationship Specialty Start Date End Date Santos Mueller MD [address] [place] [address] PCP - General Emergency Medicine 07/28/23 documented as of this encounter
--- OUTSIDE RECORDS SUMMARY | 2025-08-20 17:57 | XMS_ITS | Encounter Summary ---
Author Organization [employer] Address [address] [facility] [address] 7t [place] [address] Care Team Providers Care Steaming Machine Operator Name Role Phone Amna Urrutia Primary Care Provider [phone] Adele, Everett ROSE Primary Care Provider [phone] Sahil Chen CNP Primary Care Provider [phone] Reason for Visit * Reason Onset Date Comments reaction to medication 10/24/2022 Encounter Details Date Type Department Care Team ([facility] st Contact Info) Description 10/24/2022 Telephone [facility] ADULT D[facility]AL 230 [place] [address] Marycruz Oseguera DDS [address] [place] [address] reaction to medication Social History Tobacco Use [...] on filedocumented in this encounter Care Teams Steaming Machine Operator Relationship Specialty Start Date End Date Amna Urrutia FNP 230 [place] [address] PCP - General Family Medicine 01/01/23 04/18/24 Adele, MD Everett 230 [place] [address] PCP - General Internal Medicine 04/19/24 10/08/24 Sahil Chen CNP [address] [place] [address] PCP - General Family Medicine 10/09/24 Chris Pack Jr Artificial Flower MakerLegislators 09/04/24 documented as of this encounter
--- OUTSIDE RECORDS SUMMARY | 2025-08-20 17:58 | XMS_ITS | Encounter Summary ---
Author Organization [employer] Address [address] [facility] [address] 7t [place] [address] Care Team Providers Care Rn Women Services Name Role Phone Amna Urrutia Primary Care Provider [phone] Adele, Everett ROSE Primary Care Provider [phone] Sahil Chen CNP Primary Care Provider [phone] Encounter Details Date Type Department Care Team (Late st Contact Info) Description 01/17/2023 Orders Only [facility] MEDICINE [address] [place] [address] Amna Urrutia FNP [address] [place] [address] Social History Tobacco Use Types Packs/Day Years [...] as of this encounter Care Teams Rn Women Services Relationship Specialty Start Date End Date Amna Urrutia FNP 230 [place] [address] PCP - General Family Medicine 01/01/23 04/18/24 Everett Angulo MD 230 [place], [place] [address] PCP - General Internal Medicine 04/19/24 10/08/24 Sahil Chen CNP [address] [place] [address] PCP - General Family Medicine 10/09/24 Chris Pack Jr Instant Powder SupervisorAutomotive Service Manager 09/04/24 documented as of this encounter
--- OUTSIDE RECORDS SUMMARY | 2025-08-20 17:58 | XMS_ITS | Encounter Summary ---
Author Organization [employer] Address 75 [facility] 7t [place] [address] Care Team Providers Care Prototype Assembler Electronics Name Role Phone Amna Urrutia Primary Care Provider [phone] Name, Everett ROSE Primary Care Provider [phone] Sahil Chen CNP Primary Care Provider [phone] Reason for Visit * Reason Onset Date Comments Med Refill 03/21/2023 Encounter Details Date Type Department Care Team (Late st Contact Info) Description 03/21/2023 Refill [facility] MEDICINE [address] [place] [address] Amna Urrutia FNP [address] [place] [address] Social History Tobacco Use Types Packs/Day Years [...] as of this encounter Care Teams Prototype Assembler Electronics Relationship Specialty Start Date End Date Amna Urrutia FNP 230 [place] [address] PCP - General Family Medicine 01/01/23 04/18/24 Everett Angulo MD 230 [place] [address] PCP - General Internal Medicine 04/19/24 10/08/24 Sahil Chen CNP [address] [place] [address] PCP - General Family Medicine 10/09/24 Chris Pack Jr Senior Fire Protection EngineerSpool Fixer 09/04/24 documented as of this encounter
--- OUTSIDE RECORDS SUMMARY | 2025-08-20 17:58 | XMS_ITS | Encounter Summary ---
Author Organization [employer] Address [address] [facility] [address] [place] [address] Care Team Providers Care Instructional Technology Facilitator Name Role Phone mAna Urrutia Primary Care Provider [phone] Adele, Everett ROSE Primary Care Provider Sahil Chen CNP Primary Care Provider [phone] Reason for Visit * Reason Onset Date Comments Med Refill 04/28/2023 Encounter Details Date Type Department Care Team (Late st Contact Info) Description 04/28/2023 Refill [facility] [address] [place] [address] Sandra Leal MD [address] [place] [address] Social History Tobacco Use Types Packs/Day Years [...] documented as of this encounter Care Teams Instructional Technology Facilitator Relationship Specialty Start Date End Date Amna Urrutia FNP [address] [place] [address] PCP - General Family Medicine 01/01/23 04/18/24 Everett Angulo MD [address] [place] [address] PCP - General Internal Medicine 04/19/24 10/08/24 Sahil Chen CNP [address] [place] [address] PCP - General Family Medicine 10/09/24 Chris Pack Jr Rework OperatorControl Clerk Food And Beverage 09/04/24 documented as of this encounter
--- OUTSIDE RECORDS SUMMARY | 2025-08-20 17:58 | XMS_ITS | Encounter Summary ---
Author Organization [employer] Address [address] [place] [address] Care Team Providers Care Child Adolescent Psychiatrist Name Role Phone Sahil Chen CNP Primary Care Provider [phone] Reason for Visit * Reason Comments Med Refill Encounter Details Date Type Department Care Team (Late st Contact Info) Description 01/09/2025 Refill [facility] MED[facility]INE [address] [place] [address] Sahil Chen CNP [address] [place], [place] [id number] Type 1 diabetes mellitus with hyperglycemia (CMS/[facility]) Social History Tobacco Use Types [...] as of this encounter Care Teams Child Adolescent Psychiatrist Relationship Specialty Start Date End Date Sahil Chen CNP PCP - General Family Medicine 10/09/24 Chris Pack Jr Rf ManagerHook Up Driver 09/04/24 documented as of this encounter
--- OUTSIDE RECORDS SUMMARY | 2025-08-20 17:58 | XMS_ITS | Encounter Summary ---
Author Organization [employer] Address [address] [facility] [address] [place] [address] Care Team Providers Care Ultrasound Tester Name Role Phone Sahil Chen CNP Primary Care Provider [phone] Reason for Visit * Reason Comments Med Refill Encounter Details Date Type Department Care Team (Late st Contact Info) Description 02/17/2025 Refill [facility] MEDICINE [address] [place] [address] Sahil Chen CNP [address] [place], [place] [phone] Type 1 diabetes mellitus with hyperglycemia (CMS/[facility]) Social History Tobacco Use Types Packs/Day [...] documented as of this encounter Care Teams Ultrasound Tester Relationship Specialty Start Date End Date Sahil Chen CNP PCP - General Family Medicine 10/09/24 Chris Pack Jr Tare WeigherDehydrator Tender 09/04/24 documented as of this encounter
--- OUTSIDE RECORDS SUMMARY | 2025-08-20 17:58 | XMS_ITS | Encounter Summary ---
Author Organization [employer] Address [address] [place] [address] Care Team Providers Care Assembly Member Name Role Phone Amna Urrutia Primary Care Provider [phone] Adele, Everett ROSE Primary Care Provider [phone] Sahil Chen CNP Primary Care Provider [phone] Reason for Visit * Reason Onset Date Comments Med Refill 05/03/2023 Encounter Details Date Type Department Care Team (Late st Contact Info) Description 05/03/2023 Refill [facility] [address] [place] [address] Amna Urrutia FNP [address] [place] [address] Type 1 diabetes mellitus with hyperglycemia (CMS/HCC) [...] as of this encounter Care Teams Assembly Member Relationship Specialty Start Date End Date Amna Urrutia FNP [address] [place] [address] PCP - General Family Medicine 01/01/23 04/18/24 Everett Angulo MD [address] [place], [place] [phone] PCP - General Internal Medicine 04/19/24 10/08/24 Sahil Chen CNP [address] [place] [address] PCP - General Family Medicine 10/09/24 Chris Pack Jr Extended Day TeacherCandy Wrapping Machine Operator 09/04/24 documented as of this encounter
--- OUTSIDE RECORDS SUMMARY | 2025-08-20 17:58 | XMS_ITS | Encounter Summary ---
Author Organization [employer] Address [address] [facility] [address] [place] [address] Care Team Providers Care Outdoor Pursuits Instructor Name Role Phone Amna Urrutia Primary Care Provider [phone] Adele, Everett ROSE Primary Care Provider [phone] Sahil Chen CNP Primary Care Provider [phone] Reason for Visit * Reason Onset Date Comments Med Refill 04/29/2023 Encounter Details Date Type Department Care Team (Late st Contact Info) Description 04/29/2023 Refill [facility] MEDICINE [address] [place] [address] Sandra Leal MD [address] [place] [address] Social History Tobacco Use Types Packs/Day Years [...] as of this encounter Care Teams Outdoor Pursuits Instructor Relationship Specialty Start Date End Date Amna Urrutia FNP [address] [place] [address] PCP - General Family Medicine 01/01/23 04/18/24 Everett Angulo MD [address] [place] [address] PCP - General Internal Medicine 04/19/24 10/08/24 Sahil Chen CNP [address] [place] [address] PCP - General Family Medicine 10/09/24 Chris Pack Jr Cvir TechPediatric Acute Care Unit Nurse 09/04/24 documented as of this encounter
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
--- OUTSIDE RECORDS SUMMARY | 2025-08-20 17:58 | XMS_ITS | Encounter Summary ---
Author Organization [employer] Address [address] [place] [address] Care Team Providers Care Material Chaser Name Role Phone Sahil Chen CNP Primary Care Provider [phone] Reason for Visit * Reason Comments Med Refill Encounter Details Date Type Department Care Team (Late st Contact Info) Description 08/19/2025 Refill [facility] [address] [place] [address] Sahil Chen CNP [address], [place] [phone] Chronic back pain, unspecified back location, unspecified back pain laterality Social History Tobacco Use Types Packs/Day Years [...] unspecified back location, unspecified back pain laterality documented in this encounter Additional Health Concerns Assessment Noted Time PHQ-9 Depression Total Score: 15 025 2:28 PM EDT documented as of this encounter Care Teams Material Chaser Relationship Specialty Start Date End Date Sahil Chen CNP PCP - General Family Medicine 10/09/24 Chris Pack Jr Musical Instrument MakerSupply Chain Analyst 09/04/24 documented as of this encounter
--- OUTSIDE RECORDS SUMMARY | 2025-08-20 17:58 | XMS_ITS | Encounter Summary ---
Author Organization [employer] Address [address] [place] [address] Care Team Providers Care Sash Clamp Operator Name Role Phone Amna Urrutia Primary Care Provider [phone] Adele, Everett ROSE Primary Care Provider Sahil Chen CNP Primary Care Provider [phone] Reason for Visit * Reason Onset Date Comments Med Refill 05/01/2023 Encounter Details Date Type Department Care Team (Late st Contact Info) Description 05/01/2023 Refill [facility] [address] [place] [address] Lakshmi Womack FNP [address] [place] [address] Type 1 diabetes mellitus with hyperglycemia (CMS/HCC) [...] documented as of this encounter Care Teams Sash Clamp Operator Relationship Specialty Start Date End Date Amna Urrutia FNP [address] [place] [address] PCP - General Family Medicine 01/01/23 04/18/24 Everett Angulo MD [address] [place], [place] [id number] PCP - General Internal Medicine 04/19/24 10/08/24 Sahil Chen CNP [address] [place] [address] PCP - General Family Medicine 10/09/24 Chris Pack Jr Conservation EngineerThread Clipper 09/04/24 documented as of this encounter
--- OUTSIDE RECORDS SUMMARY | 2025-08-20 17:58 | XMS_ITS | Encounter Summary ---
Author Organization [employer] Address [address] [place] [address] Care Team Providers Care Cutter Aluminum Sheet Name Role Phone Amna Urrutia Primary Care Provider [phone] Adele, Everett ROSE Primary Care Provider [phone] Sahil Chen CNP Primary Care Provider [phone] Reason for Visit * Reason Onset Date Comments Med Refill 05/01/2023 Encounter Details Date Type Department Care Team (Late st Contact Info) Description 05/01/2023 Refill [facility] [address] [place] [address] Sandra Leal MD [address] [place] [address] Social History Tobacco Use Types Packs/Day Years [...] documented as of this encounter Care Teams Cutter Aluminum Sheet Relationship Specialty Start Date End Date Amna Urrutia FNP [address] [place] [address] PCP - General Family Medicine 01/01/23 04/18/24 Everett Angulo MD [address] [place] [address] PCP - General Internal Medicine 04/19/24 10/08/24 Sahil Chen CNP [address] [place] [address] PCP - General Family Medicine 10/09/24 Chris Pack Jr Petrol Tanker DriverPbx Mechanic 09/04/24 documented as of this encounter
== END 2025-08-20 18:28 | disposition left against medical advice (07) ==
PROVIDERS: Physician Assistant; Emergency Provider Emergency Medicine
DX: R05.9 Cough, unspecified (principal); R06.02 Shortness of breath; R42 Dizziness and giddiness; R55 Syncope and collapse; R50.9 Fever, unspecified; M25.511 Pain in right shoulder; M25.512 Pain in left shoulder; E10.9 Type 1 diabetes mellitus without complications; Z53.29 Procedure and treatment not carried out because of patient's decision for other reasons; Z87.891 Personal history of nicotine dependence
CPT/HCPCS: 36415; 71046; 80048; 80076; 82550; 83735; 85025; 93005; 99283

== ENCOUNTER → 2025-08-20 15:39 | Outpatient (BNV) | payer MEDICAID, SELFPAY | PROVIDERS: Emergency Provider Emergency Medicine; Visit Provider Internal Medicine | DX: I51.7 Cardiomegaly (principal) | CPT/HCPCS: 93010 ==

== ENCOUNTER → 2025-08-20 15:40 | Outpatient (BNV) | payer MEDICAID, SELFPAY | PROVIDERS: Visit Provider Radiology Diagnostic Radiology | DX: R06.02 Shortness of breath (principal) | CPT/HCPCS: 71046 ==